=== PATIENT | female | born 1965 | race Caucasian/White ===

== ENCOUNTER 2022-09-03 07:23 | Observation (INO) | payer MEDICARE, MEDICAID, SELFPAY ==
[2022-09-03] VITALS (23 sets, daily range): BP systolic 78–159; BP diastolic 52–86; PULSE 38–97; RESP 10–18; TEMP 35.8–37.9; O2SAT 93–100; BMI 33.3; BMI 35.5
--- NOTE | 2022-09-03 07:46 | CT_ITS ---
STUDY: CT BRAIN WITHOUT CONTRAST REASON FOR EXAM: Female, 57 years old. Headache. Possible CVA. RADIATION DOSAGE (If Supplied By Facility): CTDIvol = ( 47.06 ) mGy, DLP = ( 855.03 ) mGycm TECHNIQUE: Transaxial CT imaging of the brain was performed without administration of intravenous contrast material. Individualized dose optimization techniques were used for this CT. COMPARISON: No relevant priors. FINDINGS: Normal soft tissue structures. There is hyperostosis frontalis internus. There is mild cerebral atrophy with widening of the extra-axial spaces and ventricular dilatation. Normal white matter tracts of the cerebral hemispheres. Normal basal ganglia and thalami. Normal brainstem. Normal cerebellum. There is no intracranial hemorrhage. There are no findings of an acute ischemic infarction. Normal visualized paranasal sinuses. CT/Brain/Head without Contrast IMPRESSION: Chronic involutional changes of the brain. Electronically Signed: Luis Enrique Irwin MD at 8:55 EST ,
--- NOTE | 2022-09-03 07:47 | EKG12_ITS ---
Test Reason : BRADYCARDIA Blood Pressure : / mmHG Vent. Rate : 038 BPM Atrial Rate : 038 BPM P-R Int : 224 ms QRS Dur : 096 ms QT Int : 522 ms P-R-T Axes : 052 -30 017 degrees QTc Int : 414 ms Marked sinus bradycardia with 1st degree A-V block Left axis deviation Abnormal ECG Confirmed by SHREYA WHITE, ANN ([id number]), tape editor MEGAN CARPIO ([id number]) on 09/07/2022 10:56:32 AM Referred By: PING Confirmed By:ANN CASH MD
--- NOTE | 2022-09-03 07:49 | EX.ED.DYSGE1 ---
HPI History of Present Illness Chief Complaint: Weakness Informant: patient Onset/Context/Timing Onset: Weeks (1) Context: Gradual Onset Timing: Continuous Quality: Weakness Location: Generalized Worsened by: Nothing Relieved by: Nothing Narrative Narrative: Patient presents with slurred speech that has been getting worse over the past week. Patient states that over the last 4 days she has started to feel weak. Patient states she feels weak all over. Patient states she is having difficulty ambulating due to the weakness. Patient states she normally ambulates with a cane but has also been having to hold onto glez to prevent her from falling. Patient states this has been constant. Patient states nothing makes it better nothing makes it worse. Patient admits to a headache. Patient describes this as her typical migraine headache. Patient admits to a fever of 102 at home. Patient admits to some shortness of breath and cough. [facility] Medical History (Updated 09/03/22 @ 13:[address] Rome Dai DO) Diabetes Hypercholesterolemia Psoriasis Allergy/AdvReac Type Severity Reaction Status Date / Time latex Allergy Rash Verified 09/03/22 12:52 levofloxacin [From Levaquin] Allergy Hives Verified 09/03/22 12:53 ondansetron [From Zofran] Allergy Hives Verified 09/03/22 12:53 nalbuphine [From Nubain] AdvReac Other Verified 09/03/22 12:53 Surgical History Hx of cholecystectomy Hx of tonsillectomy Hx of tubal ligation Social History Smoking Status: Former smoker ROS ROS ED Constitutional Constitutional ED: Reports fever(s); Denies chills Eyes Eyes: Denies blurry vision or change in vision ENT ENT ED: Reports ear pain bilateral and sore throat; Denies rhinorrhea Cardiovascular Cardiovascular: Denies chest pain or palpitations Respiratory/Chest Respiratory/Chest: Reports cough and dyspnea Gastrointestinal Gastrointestinal: Reports nausea and vomiting Genitourinary Genitourinary ED: Denies dysuria or hematuria Musculoskeletal Musculoskeletal: Reports back pain and neck pain Integumentary Denies abscess or rash Neurologic Neurologic: Reports headache(s); Denies weakness Allergic/Immunologic Allergic/Immunologic ED: Denies mouth swelling or urticaria EXAM Physical Exam Const Vital Signs: 09/03/22 07:26 09/03/22 07:37 09/03/22 07:50 Temperature 96.5 F L Temperature Source Temporal Pulse Rate 38 L 38 L 41 L Respiratory Rate 14 16 13 Blood Pressure 78/59 L 85/57 L 98/58 L Blood Pressure Mean 65 66 71 Pulse Ox 100 100 100 Oxygen Delivery Method Room Air Room Air Room Air 09/03/22 07:58 09/03/22 08:04 09/03/22 08:11 Temperature Temperature Source Pulse Rate 40 L 45 L Respiratory Rate 13 13 Blood Pressure 89/59 L 98/66 Blood Pressure Mean 69 76 Pulse Ox 100 97 100 Oxygen Delivery Method Room Air Room Air Room Air 09/03/22 08:24 09/03/22 08:45 09/03/22 09:05 Temperature Temperature Source Pulse Rate 45 L 43 L 45 L Respiratory Rate 13 11 L 16 Blood Pressure 80/52 L 97/62 114/69 Blood Pressure Mean 61 73 84 Pulse Ox 98 98 97 Oxygen Delivery Method Room Air Room Air Room Air 09/03/22 09:27 09/03/22 09:54 09/03/22 10:00 Temperature Temperature Source Pulse Rate 49 L 48 L 46 L Respiratory Rate 10 L Blood Pressure 126/72 H Blood Pressure Mean 90 Pulse Ox 99 Oxygen Delivery Method Room Air 09/03/22 10:19 09/03/22 10:38 09/03/22 11:33 Temperature Temperature Source Pulse Rate 56 L 60 57 L Respiratory Rate 13 13 Blood Pressure 116/67 122/71 H Blood Pressure Mean 83 88 Pulse Ox 100 100 Oxygen Delivery Method Room Air Room Air 09/03/22 12:12 09/03/22 13:06 Temperature Temperature Source Pulse Rate 60 56 L Respiratory Rate 12 10 L Blood Pressure 150/78 H 131/73 H Blood Pressure Mean 102 92 Pulse Ox 100 Oxygen Delivery Method Room Air Positive well nourished, well developed and obese General Appearance ED: well developed, NAD and pallor Nutritional Appearance: obese HEENT Reports dry mucous membranes Mouth ED: Yes dry mucous membranes Mouth: dry mucous membranes Neck supple and no JVD Resp normal respiratory effort and clear to auscultation bilaterally Cardio regular rhythm Rate: bradycardia GI normal to inspection, nondistended, normoactive bowel sounds Palpation: soft and tender RUQ (Mild) Extremity normal to inspection General Extremety ED: Negative for edema or tenderness General Extremity: Negative for edema Neuro oriented x3, CN's II-XII intact bilaterally and no sensory deficits noted Neuro Narrative: Patient does have slurred speech. There are no other focal deficits. Sensorium / Orientation: alert Motor Exam: strength 5/5 throughout Psych mental status grossly normal Skin no rashes or lesions noted General Skin Exam: pallor MDM MDM MDM Narrative Medical decision making narrative: Since the patient's symptoms began a week ago, stroke team was not called. Differential diagnosis includes stroke, cardiac dysrhythmia, electrolyte abnormality, acute kidney injury, cardiac ischemia, pneumonia, viral infection, urinary tract infection, sepsis, migraine headache, and intracranial bleeding. EKG will be obtained to assess for cardiac ischemia and cardiac dysrhythmia. CT scan of the brain will be obtained to assess for intracranial bleeding. Chest x-ray will be obtained to assess for pneumonia and congestive heart failure. CBC will be obtained to assess for leukocytosis and anemia. Comprehensive metabolic profile will be obtained to assess for electrolyte abnormality, hepatic function, and kidney function. Troponin will be obtained to assess for cardiac ischemia. Urinalysis will be obtained to assess for urinary tract infection. Lactate will be obtained to assess for sepsis. PT with INR and PTT will be obtained to assess for coagulopathy. Lab Data Attestation: I reviewed the patient's lab results. Lab results narrative: CBC was reviewed and was within normal limits. Comprehensive metabolic profile was reviewed. BUN was 32 and creatinine was 1.4. There are no prior labs available for comparison. Glucose was slightly elevated at 173. PT with INR and PTT were reviewed and were within normal limits. High-sensitivity troponin was reviewed and was normal at 6. 2-hour repeat high-sensitivity troponin was reviewed and was normal at 6. Lactate was reviewed and was normal at 1.4. Urinalysis was reviewed and was normal. Labs: Laboratory Results - last 24 hr 09/03/22 09/03/22 09/03/22 07:25 07:25 07:25 WBC 8.4 RBC 3.89 L Hgb 12.8 Hct 38.0 MCV 97.7 MCH 32.9 H MCHC 33.7 RDW Std Deviation 45.9 H RDW Coeff of He 12.8 Plt Count 232 MPV 10.8 Immature Gran % (Auto) 0.100 Neut % (Auto) 66.5 Lymph % (Auto) 27.0 Cecil % (Auto) 4.2 Eos % (Auto) 1.8 Baso % (Auto) 0.4 Absolute Neuts (auto) 5.6 Absolute Lymphs (auto) 2.26 Nucleated RBC % 0 PT 13.7 INR 1.1 APTT 30.3 Sodium 140 Potassium 3.8 Chloride 109 H Carbon Dioxide 24.0 Anion Gap 7 BUN 32 H Creatinine 1.40 H Estim Creat Clear Calc 42.00 Est GFR (MDRD) Af Amer 50 L Est GFR (MDRD) Non-Af 41 L BUN/Creatinine Ratio 22.9 H Glucose 173 H Lactic Acid Calcium 9.1 Total Bilirubin 0.30 AST 10 L ALT 27 Alkaline Phosphatase 113 Troponin I High Sens 6 Total Protein 7.4 Albumin 3.9 Globulin 3.5 Albumin/Globulin Ratio 1.1 Urine Color Urine Clarity Urine pH Ur Specific [place] Urine Protein Urine Glucose (UA) Urine Ketones Urine Occult Blood Urine Nitrite Urine Bilirubin Urine Urobilinogen Ur Leukocyte Esterase Urine RBC Urine WBC Ur Squamous Epith Cells Urine Bacteria Urine Mucus 09/03/22 09/03/22 09/03/22 08:08 10:32 12:20 WBC RBC Hgb Hct MCV MCH MCHC RDW Std Deviation RDW Coeff of He Plt Count MPV Immature Gran % (Auto) Neut % (Auto) Lymph % (Auto) Cecil % (Auto) Eos % (Auto) Baso % (Auto) Absolute Neuts (auto) Absolute Lymphs (auto) Nucleated RBC % PT INR APTT Sodium Potassium Chloride Carbon Dioxide Anion Gap BUN Creatinine Estim Creat Clear Calc Est GFR (MDRD) Af Amer Est GFR (MDRD) Non-Af BUN/Creatinine Ratio Glucose Lactic Acid 1.4 Calcium Total Bilirubin AST ALT Alkaline Phosphatase Troponin I High Sens 6 Total Protein Albumin Globulin Albumin/Globulin Ratio Urine Color Yellow Urine Clarity Clear Urine pH 5.0 Ur Specific [place] 1.010 Urine Protein Negative Urine Glucose (UA) Normal Urine Ketones Negative Urine Occult Blood Negative Urine Nitrite Negative Urine Bilirubin Negative Urine Urobilinogen Normal Ur Leukocyte Esterase Negative Urine RBC 0 SEEN Urine WBC 0 SEEN Ur Squamous Epith Cells 0-5 SEEN Urine Bacteria 0 SEEN Urine Mucus 0 SEEN Radiography Diagnostic Testing: Clinical Impression(s) from Imaging Studies Brain CT 09/03/22 07:46 IMPRESSION: Chronic involutional changes of the brain. Electronically Signed: Luis Enrique Irwin MD at 8:55 EST , Chest X-Ray 09/03/22 07:59 IMPRESSION: Elevation of the right hemidiaphragm. The lungs are clear. Electronically Signed: Luis Enrique Irwin MD at 8:54 EST , Portable 1 view chest x-ray was obtained. On my independent interpretation, lung mcintosh are clear. There is normal cardiac silhouette. Bony thorax is normal. There is no acute process noted. Radiologist also interpreted the x-ray and agrees. CT scan of the brain was obtained. There is no acute intracranial abnormality. There are chronic involutional changes of the brain. This was interpreted by the radiologist and was also independently reviewed by myself. EKG Initial EKG: Attestation: I personally reviewed and interpreted this EKG as follows: Interpretation: No Acute Injury Pattern and Sinus Bradycardia (38) Comments: EKG was obtained. On my interpretation, there is a sinus bradycardia with a rate of 38. MT interval was prolonged at 224 ms. QRS interval was within normal limits. QTc interval was normal. There is left axis deviation at -30. There is no acute ST or T wave changes. Prior EKG tracings: not available for review Prior: No Prior Treatment and Re-Evaluation Narrative: Patient was given IV fluids, Reglan, and Benadryl. Patient was still having headache. Patient was given a dose of Toradol. Patient states she was still feeling weak. Patient was advised of her findings. Patient's heart rate did improve up to 63 on reevaluation. Because she was still symptomatic, I discussed the case with the hospitalist. Patient will be admitted to the hospital for further evaluation. Patient understood and was agreeable with the plan. All questions were answered. Discharge Plan Triage Chief Complaint: Weakness ED Provider: Rome Dai Dx/Rx/DC Orders Clinical Impression: Slurred speech, Diabetes, Bradycardia, General weakness Primary Care Provider: Vi Eng Referrals: Vi Eng, DO [Primary Care Provider] - Disposition Disposition: Acute Care Hospital [facility]
[2022-09-03] MEDS: 0.9% Normal Saline 1,000 ML 1000 ML IV (07:51)
[2022-09-03 07:58] LABS: Absolute Lymphocyte Count 2.26 X10^3/uL (0.83-4.51); Absolute Neutrophil Count 5.6 X10^3/uL (2.0-7.7); Basophil# 0.03 X10^3/uL; Basophil% 0.4 % (0-1); Eosinophil# 0.15 X10^3/uL; Eosinophils% 1.8 % (0-5); Hemoglobin 12.8 g/dL (12.0-15.0); Lymphocyte # 2.26 X10^3/ul (0.83-4.51); Mean Corp Hgb Conc 33.7 g/dL (32-36); Mean Corpuscular Hgb 32.9 pg (27.0-32.0); Mean Corpuscular Volume 97.7 fL (81-99); Mean Platelet Vol. 10.8 fl (6.2-12.0); Monocyte# 0.35 X10^3/uL; Monocyte% 4.2 % (0-10); NRBC Flagged by Analyzer 0 % (0-5); Neutrophil # 5.56 X10^3/uL (2.7-7.7); Neutrophil % 66.5 % (47-70); Platelet Count 232 K/mm3 (150-450); RBC Distribution Width CV 12.8 % (11.6-14.6); RBC Distribution Width SD 45.9 fl (35.1-43.9); Red Blood Count 3.89 M/mm3 (4.2-5.4); White Blood Count 8.4 K/mm3 (4.4-11.0)
--- NOTE | 2022-09-03 07:59 | RAD_ITS ---
STUDY: X-RAY CHEST REASON FOR EXAM: Female, 57 years old. Cough TECHNIQUE: Single AP portable view of the chest. COMPARISON: None. FINDINGS: EKG electrodes are seen. Elevation of the right hemidiaphragm. The lungs are clear. There is no demonstrated pleural abnormality. Normal size heart. Normal mediastinum and justine. Normal visualized pulmonary arteries. Normal visualized aortic arch and descending thoracic aorta. Normal visualized thoracic spine. Normal visualized ribs, clavicles, and shoulders. Surgical clips are seen in the right upper quadrant. RAD/Chest 1 View (Portable) IMPRESSION: Elevation of the right hemidiaphragm. The lungs are clear. Electronically Signed: Luis Enrique Irwin MD at 8:54 EST ,
[2022-09-03] MEDS: 0.9% Normal Saline 1,000 ML 999 ML IV (08:00)
[2022-09-03] MEDS: DiphenhydrAMINE 50 MG/ML Syringe 25 MG IV (08:04)
[2022-09-03] MEDS: Metoclopramide 10 MG/2 ML Vial IV (08:05)
[2022-09-03 08:08] LABS: International Normalized Ratio 1.1; Partial Thromboplast Time 30.3 Seconds (24.1-36.2); Prothrombin Time (Protime)PT. 13.7 SECONDS (11.7-14.9)
[2022-09-03 08:18] LABS: ALB/GLOB Ratio 1.1 RATIO (0.9-2.4); AST(SGOT) 10 U/L (15-37); Alanine Aminotransfer ALT/SGPT 27 U/L (13-56); Albumin, Serum 3.9 g/dL (3.2-5.0); Alkaline Phosphatase 113 U/L (45-117); Anion Gap 7 (5-15); BUN 32 mg/dL (7-18); BUN/Creat Ratio 22.9 RATIO (10-20); Calcium,Total 9.1 mg/dL (8.5-10.1); Chloride 109 mmol/L (98-107); EST Glomerular Filtration Rate 41 mL/min (>60); Est Glom Filt Rate - Afr Amer 50 mL/min (>60); Globulin 3.5 g/dL (2.2-4.2); Glucose 173 mg/dL (74-106); Potassium 3.8 mmol/L (3.5-5.1); Protein, Total 7.4 g/dL (6.4-8.2); Sodium Level 140 mmol/L (136-145); Troponin-I HS (w/2H Reflex) 6 pg/mL (3.0-54.0)
[2022-09-03 08:47] LABS: Lactic Acid 1.4 mmol/L (0.4-1.9)
[2022-09-03 09:55] LABS: Reflex Troponin-HS? (from REC) Y
[2022-09-03 10:56] LABS: Troponin-I HS 6 pg/mL (3.0-54.0)
[2022-09-03 12:28] LABS: Bacteria 0 SEEN /hpf (None Seen); Mucous, Urine 0 SEEN /hpf (<or=2+); Red Blood Cells-Urine 0 SEEN /hpf (0-5); White Blood Cells 0 SEEN /hpf (0-5)
[2022-09-03 12:29] LABS: Color, Urine Yellow (Yellow); Glucose, Dipstick Normal (Normal); Ketone-Dipstick Negative (Negative); Leukocyte Esterase-Dipstick Negative /ul (Negative); Nitrite-Dipstick Negative (Negative); Occult Blood-Urine Negative /ul (Negative); Protein-Dipstick Negative (Negative); Urine Bilirubin Dipstick Negative (Negative); Urine Clarity Clear (Clear); Urine Urobilinogen Normal (Normal)
[2022-09-03 12:34] LABS: Squamous Epithelial Cells - UA 0-5 SEEN /hpf (5-10)
[2022-09-03] MEDS: Ketorolac 15 MG/ML Vial IV (12:53)
[2022-09-03] MEDS: proCHLORPERazine 10 MG/2 ML Vial IV (13:42)
--- NOTE | 2022-09-03 14:42 | PCM.HP.STD ---
[facility] - General General Date of Admission: 09/03/22 Date of Service: 09/03/22 Chief Complaint: Slurred speech, wobbling gait for about 1 week. HPI Narrative FAM VINSON, is a 57 F was brought by EMS for slurred speech for 1 week. As per EMS note, patient is scheduled for MRI this week but still started having numbness tingling in left-sided upper and lower extremity and also wobbling gait last 2 to 3 days. She also felt wobbling gait, could not walk straight. She feels her left lower extremity is more weaker but she also has arthritis of the left knee. Her baseline is that she walks with a cane most probably due to arthritis. EMS also found patient was very bradycardic, heart rate in 30s. In ED, twelve-lead EKG shows sinus bradycardia 38 bpm, QTc 414 ms, [place] interval 224 ms. Her heart rate improved to 63/min while in ED. Stroke alert was not called because patient has symptoms for about 1 week. Patient denies prior history of stroke, coronary artery disease, CHF or arrhythmia. She is not on home medication and states she did not take any [id number] medication. She also stated that usually she not short of breath but she is getting short of breath on walking, mild cough, difficulty ambulating and weakness for last 1 week. She has mild headache and describes like her history of migraine. She had fever 102 Fahrenheit at home. Social history: Quit smoking about 6 months ago. Started smoking as a teenager a pack per day and then half pack per day. Sometimes drink alcohol. Denies substance use. Family history: Her paternal uncle has history of CABG. Denies coronary artery disease cardiac or stroke in first-degree family active. [facility] Medical History Diabetes Hypercholesterolemia Psoriasis Allergy/AdvReac Type Severity Reaction Status Date / Time latex Allergy Rash Verified 09/03/22 12:52 levofloxacin [From Levaquin] Allergy Hives Verified 09/03/22 12:53 ondansetron [From Zofran] Allergy Hives Verified 09/03/22 12:53 nalbuphine [From Nubain] AdvReac Other Verified 09/03/22 12:53 Surgical History Hx of cholecystectomy Hx of tonsillectomy Hx of tubal ligation Social History Smoking Status: Former smoker ROS ROS Narrative Constitutional: Reports fatigue and weakness. Increased weakness for 1 week. Fever. HEENT: Reports systems reviewed and no addt'l complaints, except as documented Respiratory/Chest: Denies chest pain, shortness of breath on exertion. Gastrointestinal: Denies coffee ground emesis, hematemesis or vomiting Genitourinary: Denies burning urination or new urinary tract symptoms Musculoskeletal: Chronic arthritis mainly of left knee. Uses cane. Mild chronic left knee joint pain and limited range of motion Neurologic: Denies seizure-like activity. Migraine headache skin: Psoriasis rash Endocrinology:Diabetes mellitus Reports systems reviewed and no addt'l complaints, except as documented Hematologic/Lymphatic: Reports systems reviewed and no addt'l complaints, except as documented Rest 14 ROS are negative except as mentioned in HPI Vital Signs Vital Signs Vital Signs: 09/03/22 07:26 09/03/22 07:37 09/03/22 07:50 Temperature 96.5 F L Temperature Source Temporal Pulse Rate 38 L 38 L 41 L Respiratory Rate 14 16 13 Blood Pressure 78/59 L 85/57 L 98/58 L Blood Pressure Mean 65 66 71 Pulse Ox 100 100 100 Oxygen Delivery Method Room Air Room Air Room Air 09/03/22 07:58 09/03/22 08:04 09/03/22 08:11 Temperature Temperature Source Pulse Rate 40 L 45 L Respiratory Rate 13 13 Blood Pressure 89/59 L 98/66 Blood Pressure Mean 69 76 Pulse Ox 100 97 100 Oxygen Delivery Method Room Air Room Air Room Air 09/03/22 08:24 09/03/22 08:45 09/03/22 09:05 Temperature Temperature Source Pulse Rate 45 L 43 L 45 L Respiratory Rate 13 11 L 16 Blood Pressure 80/52 L 97/62 114/69 Blood Pressure Mean 61 73 84 Pulse Ox 98 98 97 Oxygen Delivery Method Room Air Room Air Room Air 09/03/22 09:27 09/03/22 09:54 09/03/22 10:00 Temperature Temperature Source Pulse Rate 49 L 48 L 46 L Respiratory Rate 10 L Blood Pressure 126/72 H Blood Pressure Mean 90 Pulse Ox 99 Oxygen Delivery Method Room Air 09/03/22 10:19 09/03/22 10:38 09/03/22 11:33 Temperature Temperature Source Pulse Rate 56 L 60 57 L Respiratory Rate 13 13 Blood Pressure 116/67 122/71 H Blood Pressure Mean 83 88 Pulse Ox 100 100 Oxygen Delivery Method Room Air Room Air 09/03/22 12:12 09/03/22 13:06 09/03/22 14:13 Temperature Temperature Source Pulse Rate 60 56 L 57 L Respiratory Rate 12 10 L Blood Pressure 150/78 H 131/73 H 142/78 H Blood Pressure Mean 102 92 99 Pulse Ox 100 98 Oxygen Delivery Method Room Air Room Air 09/03/22 13:37 Temperature 96.8 F L Temperature Source Temporal Pulse Rate 57 L Respiratory Rate 18 Blood Pressure 142/78 H Blood Pressure Mean 99 Pulse Ox 100 Oxygen Delivery Method Room Air Weight Weight: 206 lb 12.697 oz Body Mass Index (BMI) 33.3 Physical Exam Narrative Physical exam General: Alert, Oriented x3, Cooperative HEENT: Atraumatic, PERRLA, EOMI, Normocephalic Oral: No Gingival or Mucosal Lesions/ Ulcerations Neck: Supple, No JVD, Negative Carotid Bruits Lungs: Air entry diminished in bilateral lung bases. No crepitation/rhonchi Cardiovascular: Sinus bradycardia, Normal S1, Normal S2, No murmurs Abdomen: Bowel Sounds Present, Soft, Non Tender, Non-Distended : No renal angle tenderness. No suprapubic tenderness. Extremities: No edema, Capillary Refill Less than 3 Seconds Skin: Patchy erythematous, psoriatic plaques on lower extremities. No acute infection/cellulitis Musculoskeletal: No Tenderness to Palpation of Joints or Extremities Neurological: Cranial nerves II-XII grossly intact, DTR 2+/4, mild weakness in left lower extremity, slurred speech/dysarthria, decreased sensation on left side. NIH stroke scale 3. Finger-nose and heel so test negative. Psych/Mental Status: Normal Affect, Appropriate. Results Lab / Micro Data Result Diagrams: 09/03/22 07:25 09/03/22 07:25 Labs: Laboratory Results - last 24 hr 09/03/22 07:25: WBC 8.4, RBC 3.89 L, Hgb 12.8, Hct 38.0, MCV 97.7, MCH 32.9 H, MCHC 33.7, RDW Std Deviation 45.9 H, RDW Coeff of He 12.8, Plt Count 232, MPV 10.8, Immature Gran % (Auto) 0.100, Neut % (Auto) 66.5, Lymph % (Auto) 27.0, [place] % (Auto) 4.2, Eos % (Auto) 1.8, Baso % (Auto) 0.4, Absolute Neuts (auto) 5.6, Absolute Lymphs (auto) 2.26, Nucleated RBC % 0 09/03/22 07:25: PT 13.7, INR 1.1, APTT 30.3 09/03/22 07:25: Sodium 140, Potassium 3.8, Chloride 109 H, Carbon Dioxide 24.0, Anion Gap 7, BUN 32 H, Creatinine 1.40 H, Estim Creat Clear Calc 42.00, Est GFR (MDRD) Af Amer 50 L, Est GFR (MDRD) Non-Af 41 L, BUN/Creatinine Ratio 22.9 H, Glucose 173 H, Calcium 9.1, Total Bilirubin 0.30, AST 10 L, ALT 27, Alkaline Phosphatase 113, Troponin I High Sens 6, Total Protein 7.4, Albumin 3.9, Globulin 3.5, Albumin/Globulin Ratio 1.1 09/03/22 08:08: Lactic Acid 1.4 09/03/22 10:32: Troponin I High Sens 6 09/03/22 12:20: Urine Color Yellow, Urine Clarity Clear, Urine pH 5.0, Ur Specific [place] 1.010, Urine Protein Negative, Urine Glucose (UA) Normal, Urine Ketones Negative, Urine Occult Blood Negative, Urine Nitrite Negative, Urine Bilirubin Negative, Urine Urobilinogen Normal, Ur Leukocyte Esterase Negative, Urine RBC 0 SEEN, Urine WBC 0 SEEN, Ur Squamous Epith Cells 0-5 SEEN, Urine Bacteria 0 SEEN, Urine Mucus 0 SEEN Radiology Impression Brain CT 09/03/22 07:46 IMPRESSION: Chronic involutional changes of the brain. Electronically Signed: Luis Enrique Irwin MD at 8:55 EST , Chest X-Ray 09/03/22 07:59 IMPRESSION: Elevation of the right hemidiaphragm. The lungs are clear. Electronically Signed: Luis Enrique Irwin MD at 8:54 EST , Assessment & Plan Assessment/Plan (1) Bradycardia: (2) CVA (cerebral vascular accident): PLAN: Plan 1. Suspected ischemic stroke: Patient is being admitted in PCU. 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 Stroke work-up including MRI brain, MRA head and neck and 2D echo ordered. BP and glucose monitoring as per stroke protocol. She has symptoms for about 1 week. Started on baby aspirin high intensity statin. Fasting profile, A1c and TSH ordered for tomorrow AM. 2. Severe sinus bradycardia, etiology unclear: In triage patient heart rate was 38/min, BP 78/59 but heart rate and blood pressure has improved. Patient denies any medication intake or [id number] at home. Heart rate is improving. Patient does not have chest pain or pressure but has shortness of breath on exertion. First troponin negative. Serial cardiac enzymes ordered. 2D echo ordered. 3. Diabetes mellitus type 2: Glucose in BMP is high, 173. A1c ordered. Accu-Chek AC needs coverage Humalog sliding scale. 4. Fever at home: Here in ED, patient has been afebrile. Chest x-ray mutilative reviewed and lungs are clear. UA shows LE and nitrite negative. WBC 0. The patient does not have dysuria/burning micturition or neurologic type symptoms. Monitor fever. 5. Abnormal kidney function unclear whether acute or chronic kidney disease: No prior lab available. BUNs/creatinine 32/1.4 streamed creatinine clearance 42 mill per minute. Sodium 140, chloride 109 therefore started on IV fluid Ringer lactate. Monitor kidney function. 6. Other chronic comorbidities include psoriasis, history of migraine, dyslipidemia: Patient denies history of hypertension. Not on any medication. Advised to follow-up with review nurse for psoriasis rest. VT prophylaxis moderate risk, enoxaparin 40 mg subcu daily. Living will/advanced directive/end of life care: Patient does not have living will or advanced directive. After discussion of benefits/risks procedures involved with full code, DNR CC arrest and DNR CC, the patient opted for full code. Patient does want artificial life support including intubation, tube feed, ventilator and/chest compression, central venous catheter, vasopressor and DC shock if needed Total time spent in [id number] encounter in discussion of advanced directive 17 minutes. Laboratory Results 09/03/22 07:25: WBC 8.4, RBC 3.89 L, Hgb 12.8, Hct 38.0, MCV 97.7, MCH 32.9 H, MCHC 33.7, RDW Std Deviation 45.9 H, RDW Coeff of He 12.8, Plt Count 232, MPV 10.8, Immature Gran % (Auto) 0.100, Neut % (Auto) 66.5, Lymph % (Auto) 27.0, [place] % (Auto) 4.2, Eos % (Auto) 1.8, Baso % (Auto) 0.4, Absolute Neuts (auto) 5.6, Absolute Lymphs (auto) 2.26, Nucleated RBC % 0 09/03/22 07:25: PT 13.7, INR 1.1, APTT 30.3 09/03/22 07:25: Sodium 140, Potassium 3.8, Chloride 109 H, Carbon Dioxide 24.0, Anion Gap 7, BUN 32 H, Creatinine 1.40 H, Estim Creat Clear Calc 42.00, Est GFR (MDRD) Af Amer 50 L, Est GFR (MDRD) Non-Af 41 L, BUN/Creatinine Ratio 22.9 H, Glucose 173 H, Calcium 9.1, Total Bilirubin 0.30, AST 10 L, ALT 27, Alkaline Phosphatase 113, Troponin I High Sens 6, Total Protein 7.4, Albumin 3.9, Globulin 3.5, Albumin/Globulin Ratio 1.1 09/03/22 08:08: Lactic Acid 1.4 09/03/22 10:32: Troponin I High Sens 6 09/03/22 10:32: Phosphorus Pending, Magnesium Pending 09/03/22 12:20: Urine Color Yellow, Urine Clarity Clear, Urine pH 5.0, Ur Specific [place] 1.010, Urine Protein Negative, Urine Glucose (UA) Normal, Urine Ketones Negative, Urine Occult Blood Negative, Urine Nitrite Negative, Urine Bilirubin Negative, Urine Urobilinogen Normal, Ur Leukocyte Esterase Negative, Urine RBC 0 SEEN, Urine WBC 0 SEEN, Ur Squamous Epith Cells 0-5 SEEN, Urine Bacteria 0 SEEN, Urine Mucus 0 SEEN Charges/Coding Visit Charges Inpatient E&M: 08831 Init Hosp L3 Procedures Hospitalists Procedures: 51607 Advncd Care Plan 30 Min
[2022-09-03 15:19] LABS: Magnesium 2.1 mg/dL (1.6-2.6)
--- NOTE | 2022-09-03 16:36 | CM.ED ---
Floor Assessment by JAYA Information Source: Patient Family Present: None present but patient was talking to someone on the phone when this chief underwriter entered the room. Next of Kin: Enriqueta Patterson, patient's sister. Enriqueta is also patient's HCPOA. Living Will: Patient does not have a living will. She reports an interest in information about living will and this chief underwriter provided her with [facility] Living Will information and encouraged her to speak to unit social media project manager if she wanted to complete information while on the unit. Healthcare POA: Patient said that her sister, Enriqueta Patterson is her HCPOA. SW asked for patient's family to bring in copy of the HCPOA for the patient's medical chart. Name of PCP: Vi Eng Specialist: Nuzhat, neurologist, Dr. Garvin at [facility], and an factory engineer that patient has not seen yet nor can patient recall her name or hospital association. Name of Pharmacy: [facility] [place] [facility] Prescription Coverage: [facility] Dual Medicare/Medicaid Lives with : SisterEnriqueta and Brother in Law Living Arrangement: One story home Steps: Patient reports she has unknown amount of steps into the house. Patient reports she has a chair lift to get inside the home. ADL: Patient was independent in her ADL's prior to her admission. Quality of family relationship: Patient reports that her sister and brother in law offer her good support. Can patient return to prior living arrangement: Yes Patient reports she feels safe at home Patient does not drive due to her seizures Current DME: Cane, walker and chair lift No identified DME needs Hemodialysis: None Previous SNF: [facility] in [place]. She does not want to return there. Previous HHC: Patient reports HHC in past but can not recall the name of the agency. No Passport/Waiver or [place] Patient reports she sees Dr. Garvin, a psychologist, and Shante Kenny, a counselor, at [facility]. Patient said that her PCP prescribes her cymbalta and generic ativan which she takes at bedtime. Patient reports she is med compliant. Plan at Discharge: Return Home JAYA provided patient with living will resources and encouraged her to have family members bring in the HCPOA for the patient's file . Linnette SOTOMAYOR
--- NOTE | 2022-09-03 16:41 | MRI_ITS ---
STUDY: MRI BRAIN WITHOUT CONTRAST REASON FOR EXAM: Female, 57 years old. Suspected Stroke, SLURRED SPEECH BILATERAL HAND NUMBNESS TECHNIQUE: Standardized multiplanar fat and water weighted pulse sequences were obtained. COMPARISON: September 03, 2022 FINDINGS: There is moderate cerebral atrophy with widening of the extra-axial spaces and ventricular dilatation. There are a limited number of small white matter hyperintensities, distributed throughout the deep white matter tracts of the cerebral hemispheres, consistent with mild chronic white matter ischemic changes. There is no evidence for recent intracranial ischemia or other cause of cytotoxic edema on diffusion weighted imaging (DWI). Normal T2* images of the brain without demonstrated susceptibility artifact. There is no demonstrated hemosiderin stain. Normal bilateral basal ganglia. Normal thalami. There is no extra-axial fluid accumulation. Normal flow voids within the major intracranial circulation suggesting patency by spin echo criteria. Normal sella turcica, pituitary gland, infundibular stalk, optic chiasm and hypothalamus. Normal tectal plate and pineal gland. Normal midbrain and jesenia. There is focal increased T2 signal and posterior aspect of the medulla, series 5 images 4/25 and 5/25. Normal cerebellum. Normal basal cisterns. Normal bilateral temporal bones. Normal bilateral internal auditory canals. No demonstrated orbital abnormality, within the constraints of a routine brain study. Normal visualized paranasal sinuses. Normal calvarium and skull base. Normal visualized soft tissue structures. Normal visualized upper cervical spine. MRI/Brain without Contrast IMPRESSION: Involutional changes of the brain, as described above. Signal alteration of the medulla suggesting prior insult or infarct. No hemorrhage or acute infarct. Electronically Signed: King Jose MD at 11:11 EST ,
--- NOTE | 2022-09-03 16:41 | MRI_ITS ---
STUDY: MRA NECK WITHOUT CONTRAST REASON FOR EXAM: Female, 57 years old. Stroke, SLURRED SPEECH BILATERAL HAND NUMBNESS TECHNIQUE: Source images were obtained, MIPs were performed. The study was performed unenhanced. There is motion artifact. COMPARISON: None. FINDINGS: RIGHT CAROTID ARTERIES: Normal right common carotid artery (CCA). Normal right common carotid bulb. Normal origin of the right internal carotid (ICA) artery without a hemodynamically significant stenosis. There is atherosclerotic tortuous elongation of the cervical portion of the right internal carotid artery. Normal origin of the right external carotid artery (ECA). LEFT CAROTID ARTERIES: Normal left common carotid artery (CCA). Normal left common carotid bulb. Normal origin of the left internal carotid (ICA) artery without a hemodynamically significant stenosis. There is atherosclerotic tortuous elongation of the cervical portion of the left internal carotid artery. Normal origin of the left external carotid artery (ECA). VERTEBRAL ARTERIES: Normal antegrade flow within the bilateral vertebral artery without a hemodynamically significant stenosis. MRI/MRA Neck without Contrast IMPRESSION: No hemodynamically significant internal carotid artery stenosis. Motion artifact degrades detail. Electronically Signed: King Jose MD at 11:23 EST ,
--- NOTE | 2022-09-03 16:41 | ECHOD_ITS ---
Reason For Study: CVA Procedure This was a 2D Doppler, Color Flow transthoracic echocardiogram. Exam performed portable in patient room. Left Ventricle Normal left ventricle. The estimated ejection fraction is 55-60 %. Right Ventricle Normal right ventricle. Normal systolic function. Atria Normal left atrium. Normal right atrium. Intact atrial septum. Mitral Valve The mitral valve is structurally normal. No prolapse or stenosis seen. No mitral valve insufficiency. Tricuspid Valve Normal tricuspid valve. No tricuspid valve insufficiency. Aortic Valve Mild diffuse aortic valve thickening. No aortic valve insufficiency. Pulmonic Valve The pulmonic valve is not well visualized. Great Vessels Normal aortic root. Pericardium/Pleural No pericardial effusion. Medication Performed a rapid injection of agitated mix of 9 cc saline and 1cc air to assess for atrial septal defect. MMode/2D Measurements & Calculations Ao root diam: 2.9 cm LAV(MOD-sp4): 56.3 ml LVAd ap4: 24.4 cm2 LVLd ap4: 7.4 cm EDV(MOD-sp4): 65.2 ml EDV(sp4-el): 68.5 ml LVAs ap4: 10.6 cm2 LVLs ap4: 5.9 cm ESV(MOD-sp4): 16.2 ml ESV(sp4-el): 16.0 ml EF(MOD-sp4): 75.2 % EF(sp4-el): 76.6 % SV(MOD-sp4): 49.0 ml SV(sp4-el): 52.5 ml LA A4 area: 20.8 cm2 LA dimension(2D): 3.6 cm RA A4 area: 14.2 cm2 Time Measurements MV dec time: 0.24 sec Doppler Measurements & Calculations MV E max sajan: 59.6 cm/sec Lat Peak E' Sajan: 12.1 cm/sec Med Peak E' Sajan: 8.2 cm/sec MV A max sajan: 69.5 cm/sec E/E' lat: 4.9 E/E' med: 7.3 MV E/A: 0.86 MV V2 max: 73.9 cm/sec MV dec slope: 303.6 cm/sec2 Ao V2 max: 164.0 cm/sec MV max P.2 mmHg Ao max P.8 mmHg MV V2 mean: 50.0 cm/sec Ao V2 mean: 125.2 cm/sec MV mean P.1 mmHg Ao mean P.9 mmHg MV V2 VTI: 26.2 cm Ao V2 VTI: 41.5 cm AV (velocity ratio): 0.86 LV V1 max: 145.2 cm/sec PA V2 max: 109.5 cm/sec LV V1 max P.4 mmHg PA V2 mean: 74.8 cm/sec LV V1 mean P.4 mmHg LV V1 mean: 111.0 cm/sec LV V1 VTI: 35.6 cm ECHO/Echo Complete Interpretation Summary The estimated ejection fraction is 55-60 %. Normal LV systolic function No significant Valvular regurgitation No previous study tgo compare Ordering Physician: Forrest Pascal Referring Physician: EMILY ARIAS Performed By: Rebekah Al RCS
--- NOTE | 2022-09-03 16:41 | MRI_ITS ---
STUDY: MRA OF THE HEAD WITHOUT CONTRAST REASON FOR EXAM: Female, 57 years old. Stroke, SLURRED SPEECH BILATERAL HAND NUMBNESS TECHNIQUE: 3-D [id number] (TOF) imaging was performed with MIPs. The study was performed unenhanced. COMPARISON: None. FINDINGS: Normal bilateral petrous carotid arteries. Normal right cavernous carotid artery with a normal supraclinoid bifurcation. Normal left cavernous carotid artery with a normal supraclinoid bifurcation. Normal right A1 segments of the anterior cerebral artery. Normal left A1 segments of the anterior cerebral artery. Normal intact anterior communicating artery (ACOM). Normal bilateral A2 segments of the anterior cerebral arteries. Normal right M1 and M2 segments of the middle cerebral arteries, with a normal M1 bifurcation. Normal left M1 and M2 segments of the middle cerebral arteries, with a normal M1 bifurcation. There is non-visualization of the right posterior communicating artery (PCOM). There is non-visualization of the left posterior communicating artery (PCOM). Normal bilateral vertebral arteries. Normal basilar artery with a normal basilar bifurcation. The visualized bilateral superior cerebellar (SCA) arteries are normal. Normal bilateral P1, P2 and visualized P3 segments of the posterior cerebral arteries. There is no demonstrated aneurysm of the [place]. There is no major vessel occlusion or hemodynamically significant stenosis. There is no demonstrated abnormality of the visualized brain. MRI/MRA Head ONLY without Contrast IMPRESSION: Normal MRA of the head. No aneurysm or large vessel occlusion. Electronically Signed: King Jose MD at 11:21 EST ,
[2022-09-03 18:01] LABS: Bedside Glucose 119 mg/dL (74-106)
[2022-09-03 18:06] LABS: Troponin-I HS 5 pg/mL (3.0-54.0)
[2022-09-03] MEDS: Lactated Ringers 1,000 ML 100 ML IV (18:18)
[2022-09-03] MEDS: 0.9% Saline Lock 10 ML Syringe IV (18:20)
[2022-09-03] MEDS: Enoxaparin 40 MG/0.4 ML Syringe SC (18:27)
[2022-09-03 20:17] LABS: Troponin-I HS 7 pg/mL (3.0-54.0)
[2022-09-03 22:36] LABS: Bedside Glucose 164 mg/dL (74-106)
[2022-09-04] VITALS (8 sets, daily range): BP systolic 110–150; BP diastolic 65–77; PULSE 69–88; RESP 16–116; TEMP 36.7–37.7; O2SAT 96–97; BMI 35.5
[2022-09-04 00:03] LABS: Troponin-I HS 10 pg/mL (3.0-54.0)
[2022-09-04] MEDS: Lactated Ringers 1,000 ML 100 ML IV (03:51)
[2022-09-04 06:51] LABS: Bedside Glucose 165 mg/dL (74-106)
[2022-09-04 06:54] LABS: Anion Gap 8 (5-15); BUN 19 mg/dL (7-18); BUN/Creat Ratio 19.6 RATIO (10-20); Calcium,Total 8.7 mg/dL (8.5-10.1); Chloride 115 mmol/L (98-107); Cholesterol 138 mg/dL (200); Creatinine, Serum 0.97 mg/dL (0.55-1.02); EST Glomerular Filtration Rate 63 mL/min (>60); Est Glom Filt Rate - Afr Amer 77 mL/min (>60); Estimated Creatinine Clearance 60.62 ml/min; Glucose 176 mg/dL (74-106); High Density Lipoprotein 31 mg/dL; Potassium 3.8 mmol/L (3.5-5.1); Sodium Level 144 mmol/L (136-145); Thyroid Stim Hormone (TSH) 1.98 uIU/mL (0.358-3.74); Triglycerides 385 mg/dL; Very Low Density Lipoprotein 77 mg/dL (5-40)
[2022-09-04 08:06] LABS: Hemoglobin A1c 6.5 % (3.8-5.6)
[2022-09-04] MEDS: Enoxaparin 40 MG/0.4 ML Syringe SC (11:02)
--- NOTE | 2022-09-04 11:13 | TELEMED_ITS ---
[facility] Tele[facility] has confirmed receipt of a request for visit. This document confirms receipt of the order initiating the consult. To find the results of the consultation, please view the patient's reports for the scanned Telemed Consult.
[2022-09-04] MEDS: proCHLORPERazine 10 MG/2 ML Vial 5 MG IV (11:56)
[2022-09-04] MEDS: Insulin Lispro 100 UNIT/ML INSULN.PEN SC ×3 (12:12→22:20)
[2022-09-04 12:20] LABS: Bedside Glucose 195 mg/dL (74-106)
--- NOTE | 2022-09-04 12:42 | MRI_ITS ---
STUDY: MRI CERVICAL SPINE WITHOUT CONTRAST REASON FOR EXAM: Female, 57 years old. Cervical radiculopathy with bilateral hand numbness. TECHNIQUE: Standardized fat and water weighted pulse sequences were obtained in the sagittal and axial planes. COMPARISON: MRI brain without contrast 09/04/2022. No prior MRI cervical spine for comparison. FINDINGS: Normal foramen magnum and brainstem-cervical cord junction. Normal craniovertebral junction. Normal anterior atlantoaxial articulation. Normal odontoid process. Straightening of the C-spine curvature. Normal vertebral bodies and posterior osseous elements. C2-3: Normal endplates. Normal disc height, signal and morphology. Normal central canal and intervertebral neural foramina. C3-4: Normal endplates. Normal disc height, signal and morphology. Normal central canal and intervertebral neural foramina. C4-5: Normal endplates. Minimal disc space height narrowing. Normal disc morphology. Normal central canal and intervertebral neural foramina. C5-6: Normal endplates. Pronounced disc space height narrowing. Asymmetric bone spurs arising from the uncovertebral joints, left greater than right causing moderate stenosis of the left intervertebral neural foramen and mild stenosis of the right intervertebral neural foramen. C6-7: Normal endplates. Minimal disc space height narrowing. Normal central canal and left intervertebral neural foramen. Mild stenosis of the right intervertebral neural foramen due to small osteophyte arising from the right uncovertebral joint. C7-T1: Normal endplates. Normal disc height, signal and morphology. Normal central canal and intervertebral neural foramina. T1-T2, T2-T3, T3-T4: (Sagittal only). Normal endplates. Normal disc height, signal and morphology. Normal central canal and intervertebral neural foramina. Normal cervical cord. Normal included upper thoracic spinal cord. Abnormal T2 hyperintensity in the middle third of the posterior midline medulla oblongata. Etiology is unknown. Normal visualized soft tissue structures. MRI/Spine Cervical (Routine) IMPRESSION: 1. 1 x 0.6 cm abnormal T2 hyperintensity in the middle third of the posterior midline done oblongata without associated brainstem atrophy or cystic change. Etiology is unknown at this time. Recommend MRI of the brain with intravenous contrast and thin sagittal and axial cuts through the brainstem for further evaluation. 2. No MRI evidence of any intrinsic signal abnormality of the cervical spinal cord and the included upper thoracic spinal cord. 3. Moderate stenosis of the left C5-C6 intervertebral neural foramen and mild stenosis of the right C5-C6 intervertebral neural foramen due to bone spurs arising from the uncovertebral joints. 4. Mild stenosis of the right C6-C7 intervertebral neural foramen due to osteophyte arising from the right uncovertebral joint. 5. No MRI evidence of cervical extruded disc fragment or disc protrusion. Electronically Signed: Isaak Quiroz MD at 16:07 EST ,
[2022-09-04] MEDS: Aspirin 81 MG TAB.CHEW PO (12:59)
[2022-09-04] MEDS: carBAMazepine 200 MG Tablet PO ×2 (12:59→20:34)
[2022-09-04] MEDS: Topiramate 100 MG Tablet PO (12:59)
[2022-09-04] MEDS: Pantoprazole Sodium 40 MG Tablet PO (13:00)
[2022-09-04] MEDS: DULoxetine Hcl 60 MG Capsule PO ×2 (13:00→20:32)
[2022-09-04] MEDS: Clopidogrel Bisulfate 75 MG Tablet PO (13:04)
[2022-09-04 13:57] LABS: Vitamin B12 471 pg/mL (211-911)
--- NOTE | 2022-09-04 14:55 | PN.HOSP_ITS ---
Reason for Visit Reason for Visit: Slurred speech Left upper extremity tingling/numbness Subjective Subjective Ms Soto is a 57-year-old white female who presented to the emergency department on 09/03/2022 with slurred speech and wobbling gait for about 1 week. She evidently was scheduled for an outpatient MRI secondary to her symptoms but she was still having her slurred speech and then developed left upper extremity tingling and numbness and wobbling gait in the last 2 to 3 days. She felt like she was having difficulty ambulating straight and felt like she was much more weak than she had been previously. At baseline she ambulates with a cane. Str basim alert was not called as she had symptoms for about a week. She was noted to be sinus bradycardia on presentation with a heart rate of 38 with normal QTc and a first-degree heart block with a RI interval of 224 ms. Her heart rate improved and has maintained in the 60s to 80s for the most part since admission. She was admitted to PCU and stroke work-up was pursued. Today upon my evaluation she was getting ready to work with physical and Occupational Therapy and after their evaluation they did recommend ongoing acute rehab which will be pursued by case management and social work. Is agreeable to this. Objective Data Objective Data Vital Signs: Vital Signs Temp Pulse Resp BP Pulse Ox O2 Del Method 98.0 F 73 17 146/77 H 97 Room Air 09/04/22 11:55 09/04/22 11:55 09/04/22 11:55 09/04/22 11:55 09/04/22 11:55 09/04/22 11:55 Oxygen Delivery Method Room Air Weight: 99.79 kg Body Mass Index (BMI) 35.5 Intake & Output: Intake and Output for Last 24 Hours 09/02/22 09/03/22 09/04/22 23:59 23:59 23:59 Intake Total 2059 955 / 955 Balance 2059 955 / 955 Lab / Micro Data Result Diagrams: 09/03/22 07:25 09/04/22 05:35 Labs: Laboratory Results - last 24 hr 09/03/22 07:25: Vitamin B12 471 09/03/22 10:32: Phosphorus 3.0, Magnesium 2.1 09/03/22 17:37: Troponin I High Sens 5 09/03/22 17:42: POC Glucose 119 H 09/03/22 19:44: Troponin I High Sens 7 09/03/22 22:17: POC Glucose 164 H 09/03/22 23:22: Troponin I High Sens 10 09/04/22 05:35: Sodium 144, Potassium 3.8, Chloride 115 H, Carbon Dioxide 21.0, Anion Gap 8, BUN 19 H, Creatinine 0.97, Estim Creat Clear Calc 60.62, Est GFR (MDRD) Af Amer 77, Est GFR (MDRD) Non-Af 63, BUN/Creatinine Ratio 19.6, Glucose 176 H, Calcium 8.7, Triglycerides 385 H, Cholesterol 138, LDL Cholesterol 30, VLDL Cholesterol 77 H, HDL Cholesterol 31 L, TSH 1.98 09/04/22 05:35: Hemoglobin A1c 6.5 H 09/04/22 06:17: POC Glucose 165 H 09/04/22 11:40: POC Glucose 195 H Radiography Diagnostic Testing: Radiology Impression Brain MRI 09/03/22 16:41 IMPRESSION: Involutional changes of the brain, as described above. Signal alteration of the medulla suggesting prior insult or infarct. No hemorrhage or acute infarct. Electronically Signed: King Jose MD at 11:11 EST Reading Location ID and State: [address] [place] [place] [address] , Service support , Echocardiogram 09/03/22 16:41 Interpretation Summary The estimated ejection fraction is 55-60 %. Normal LV systolic function No significant Valvular regurgitation No previous study tgo compare Ordering Physician: Forrest Pascal Referring Physician: EMILY ARIAS Performed By: Rebekah Al RCS Head MRA 09/03/22 16:41 IMPRESSION: Normal MRA of the head. No aneurysm or large vessel occlusion. Electronically Signed: King Jose MD at 11:21 EST , Neck MRA 09/03/22 16:41 IMPRESSION: No hemodynamically significant internal carotid artery stenosis. Motion artifact degrades detail. Electronically Signed: King Jose MD at 11:23 EST , Physical Exam Const alert, oriented x3, no apparent distress and well nourished Constitutional Narrative: Obese, upper middle-aged white female sitting up on the edge of the bed getting ready to work with therapy services, appears comfortable, nontoxic, very pleasant HEENT head/scalp atraumatic and moist oral mucous membranes HEENT Narrative: Mallampati 3-4, dentition is fair, no thrush Head and Scalp: normocephalic Resp Resp Narrative: Diminished diffusely with few scattered end expiratory wheezes Auscultation: wheezes; Negative for rales or rhonchi Cardio regular rate, regular rhythm, S1 normal heart sound, S2 normal heart sound, no murmurs, no rub, no gallops and no clicks GI normal to inspection, nondistended, normoactive bowel sounds, soft to palpation and non-tender Extremity no clubbing, cyanosis or edema Extremity Narrative: 2+ pedal pulses Neuro oriented x3, moves all extremities, no focal motor deficits and No no sensory deficits noted Neuro Narrative: Patient with some dysarthria, sensory changes on left side of face and left upper extremity, no significant motor deficits, cranial nerves otherwise are intact Speech: Negative for speech normal Psych affect normal Psych Narrative: Very pleasant, appropriately interactive Assessment & Plan Assessment/Plan (1) CVA (cerebral vascular accident): (2) Slurred speech: (3) Bradycardia: (4) General weakness: PLAN: Plan Acute midbrain stroke -Discussed case with [facility]y and they feel that she likely had a brainstem stroke possibly in the ventral jesenia -Patient high risk overall -Ongoing dysarthria and left-sided face numbness/left upper extremity numbness -MRI here shows old stroke but no acute findings however they are highly concerned that this is an acute infarct -MRA of the head and neck were unremarkable -Recommended B12 which was found to be normal -MRI of the cervical spine is pending with upper extremity symptoms on the left side -Continue aspirin -Start Plavix -Patient already is on high intensity statin -Diabetes appears well controlled with A1c less than 7 -Echocardiogram was obtained and showed an EF of 55 to 60% with a normal LV function no significant valvular regurgitation and a negative bubble study -Will need event monitor at discharge -PT/OT/speech therapy recommending ongoing therapy with inpatient rehab at discharge -Awaiting rehab acceptance and pre-CERT Bradycardia -Noted on presentation -Has not had any since that point in time -EK G only showed first-degree heart block -Continue to monitor on telemetry Generalized weakness -Ongoing therapy as noted above Hyperlipidemia -Lipid panel obtained on admission -Total cholesterol 138/HDL 31/LDL 30/triglycerides 385 -Continue high intensity dose statin -We will add fenofibrate for triglycerides as it appears her A1c is controlled at baseline Seizure disorder -Home medication list is incorrect -Change Topamax to 200 mg p.o. twice daily -Change Tegretol to 200 mg p.o. twice daily DM-2 -A1c demonstrates good control with a hemoglobin A1c of 6.5 -Hold home oral and's -Continue home insulin -Sliding scale insulin and Accu-Cheks as ordered Diabetic neuropathy -Continue home gabapentin Migraine -Continue home as needed History of stroke -Treatment as above History of psoriasis -No acute outbreaks GERD -Continue home PPI Obesity -Recommend weight loss -BMI 35.5 -Complicates treatment, prognosis, outcomes DVT prophylaxis -Continue enoxaparin 40 mg daily CODE STATUS -Full code Charges/Coding Visit Charges Inpatient E&M: 59734 Subs Hosp L2
[2022-09-04] MEDS: Acetaminophen/Butalbital/Caffe 1 Tablet PO ×2 (15:31→20:31)
[2022-09-04] MEDS: Gabapentin 100 MG Capsule PO (15:31)
--- NOTE | 2022-09-04 15:50 | CASEMGMT ---
JAYA completed PHQ 9 with patient and she scored a 13 which indicates moderate depression. Patient already sees a counselor and a Psychiatrist. Patient is due to see her Psychiatrist in September. She plans on talking with him about adjusting her medications. JAYA did give her information on the [facility] Stroke support group. Joselin ALICIA
--- NOTE | 2022-09-04 15:52 | CASEMGMT ---
SW met with patient. Introduced self and role at [facility]. SW let patient know SW was informed she would be agreeable to Inpatient Rehab. SW let patient know she will stay here at [facility] until her insurance gives us approval or denial. SW let patient know SW is not sure her insurance will approve her, but we can try. Referral was made to [facility] Inpatient Rehab Unit. Dr Estrada will review patient's chart on Wednesday. Patient will need insurance authorization. Joselin ALICIA
--- NOTE | 2022-09-04 16:04 | CHAPLAIN ---
Type of Pastoral Visit _x__ Initial Visit ___ Follow-up Visit ___ On-call Visit ___ General Patient Visit ___ Spiritual Assessment ___ Family Conference ___ Bereavement ___ Rapid Response ___ Code Blue ___ Other (describe below) Pastoral Care Referral From _x__ Patient ___ Family ___ Nurse ___ Physician ___ Senior Mainframe Developer ___ Building Construction Engineer ___ Other (describe below) Sacrament/Intervention _x__ Active listening ___ Anointing ___ Christian ___ Bereavement ___ Communion _x__ Lisa exploration ___ _x__ Life review _x__ Prayer ___ Reconciliation ___ Sacrament of Sick _x__ Supportive presence ___ Wedding ___ Other (describe below) Pastoral Comments patient is welcoming of spiritual care support; pt states that this is her second stroke and it is frustrating for the difficulty in speech; pt is concerned that people will view her as an ignorant person because of the slowness of speech; pt is hopeful for rehab; pt states that her lisa is strong and that she has good support from a sister and lui; pt welcomes presence and prayer
--- NOTE | 2022-09-04 16:48 | CASEMGMT ---
RN SULEMAN NOTE: Intro role of CM to patient and [facility] form explained re: Observation status for treatment of stroke.? Explained hospitalization will be paid per herinsurance policy for Outpatient billing?and condition will continue to be evaluated for Inpt necessity. Also let pt know that [facility] sends paper in the billing packet with their phone number if questions arise. Discussed Pharmacy section of [facility] form and self administered medication guideline.? Pt verbalizes understanding and does not have further questions. ?Form signed, copy made and placed in chart, and original given to pt. Norbert DERASN RN CM
[2022-09-04 17:10] LABS: Bedside Glucose 234 mg/dL (74-106)
[2022-09-04] MEDS: proMETHazine 25 MG Tablet PO (18:45)
[2022-09-04] MEDS: Atorvastatin Calcium 80 MG Tablet PO (20:33)
[2022-09-04] MEDS: Topiramate 100 MG Tablet 200 MG PO (20:34)
[2022-09-04] MEDS: LORazepam 0.5 MG Tablet PO (22:14)
[2022-09-04] MEDS: Gabapentin 800 MG Tablet PO (22:14)
[2022-09-04] MEDS: MELATONIN 3 MG TABLET PO (22:15)
[2022-09-04] MEDS: Insulin Glargine-YFGN 100 UNIT/ML Pen 20 UNIT SC (22:19)
[2022-09-04 23:26] LABS: Bedside Glucose 205 mg/dL (74-106)
[2022-09-05] VITALS (9 sets, daily range): BP systolic 103–145; BP diastolic 63–81; PULSE 59–69; RESP 16–18; TEMP 36.1–36.7; O2SAT 96–100; BMI 35.5
[2022-09-05] MEDS: Acetaminophen/Butalbital/Caffe 1 Tablet PO ×3 (00:55→19:55)
[2022-09-05 04:06] LABS: Bacteria 0 SEEN /hpf (None Seen); Mucous, Urine 0 SEEN /hpf (<or=2+); Red Blood Cells-Urine 0 SEEN /hpf (0-5); Squamous Epithelial Cells - UA 0 SEEN /hpf (5-10); White Blood Cells 0 SEEN /hpf (0-5)
[2022-09-05 04:07] LABS: Color, Urine Yellow (Yellow); Glucose, Dipstick Normal (Normal); Ketone-Dipstick Negative (Negative); Leukocyte Esterase-Dipstick Negative /ul (Negative); Nitrite-Dipstick Negative (Negative); Occult Blood-Urine Negative /ul (Negative); Protein-Dipstick Negative (Negative); Urine Bilirubin Dipstick Negative (Negative); Urine Clarity Clear (Clear); Urine Urobilinogen Normal (Normal)
[2022-09-05] MEDS: tiZANidine HCl 2 MG Tablet PO ×3 (05:25→19:54)
[2022-09-05] MEDS: Gabapentin 100 MG Capsule PO ×2 (05:25→14:51)
[2022-09-05] MEDS: Insulin Lispro 100 UNIT/ML INSULN.PEN SC ×4 (06:44→22:41)
[2022-09-05 07:20] LABS: Bedside Glucose 230 mg/dL (74-106)
[2022-09-05 07:29] LABS: Absolute Lymphocyte Count 1.72 X10^3/uL (0.83-4.51); Absolute Neutrophil Count 3.4 X10^3/uL (2.0-7.7); Basophil# 0.02 X10^3/uL; Basophil% 0.3 % (0-1); Eosinophil# 0.08 X10^3/uL; Eosinophils% 1.3 % (0-5); Hematocrit 35.7 % (37-47); Hemoglobin 12.3 g/dL (12.0-15.0); Lymphocyte # 1.72 X10^3/ul (0.83-4.51); Mean Corp Hgb Conc 34.5 g/dL (32-36); Mean Corpuscular Hgb 34.2 pg (27.0-32.0); Mean Corpuscular Volume 99.2 fL (81-99); Mean Platelet Vol. 11.5 fl (6.2-12.0); Monocyte# 0.72 X10^3/uL; Monocyte% 12.1 % (0-10); NRBC Flagged by Analyzer 0 % (0-5); Neutrophil # 3.37 X10^3/uL (2.7-7.7); Platelet Count 210 K/mm3 (150-450); RBC Distribution Width CV 12.6 % (11.6-14.6); RBC Distribution Width SD 45.5 fl (35.1-43.9); White Blood Count 5.9 K/mm3 (4.4-11.0)
[2022-09-05] MEDS: carBAMazepine 200 MG Tablet PO ×2 (08:27→22:36)
[2022-09-05] MEDS: DULoxetine Hcl 60 MG Capsule PO ×2 (08:28→22:38)
[2022-09-05] MEDS: Aspirin 81 MG TAB.CHEW PO (08:28)
[2022-09-05] MEDS: Topiramate 100 MG Tablet 200 MG PO ×2 (08:28→22:37)
[2022-09-05] MEDS: guaiFENesin 10 ML UDC (200MG/10ML) PO ×3 (08:29→22:42)
[2022-09-05] MEDS: Enoxaparin 40 MG/0.4 ML Syringe SC (08:29)
[2022-09-05] MEDS: Pantoprazole Sodium 40 MG Tablet PO (08:30)
[2022-09-05] MEDS: Clopidogrel Bisulfate 75 MG Tablet PO (08:30)
[2022-09-05] MEDS: proMETHazine 25 MG Tablet PO ×2 (11:29→22:42)
[2022-09-05] MEDS: Insulin Glargine-YFGN 100 UNIT/ML Pen 20 UNIT SC ×2 (11:29→22:40)
--- NOTE | 2022-09-05 11:38 | PCM.PN.HOSP ---
Reason for Visit Reason for Visit: Slurred speech Left upper extremity sensory changes Gait disturbances Subjective Subjective Patient still with some sensory changes in her left upper extremity and left face. Speech is still slurred however patient reports she feels it may be a little bit better. Developed some sore throat and intermittent coughing through the night and COVID test was performed and found to be positive. This was a PCR. Patient admits she has known exposure at home with her sister and [id number]. This may limit our discharge to rehab here however other facilities are taking COVID-positive patients and I discussed this with case management and they will look into this further. Objective Data Objective Data Vital Signs: Vital Signs Temp Pulse Resp BP Pulse Ox O2 Del Method 97.1 F L 59 L 16 103/67 99 Room Air 09/05/22 11:33 09/05/22 11:33 09/05/22 11:33 09/05/22 11:33 09/05/22 11:33 09/05/22 11:33 Oxygen Delivery Method Room Air Weight: 99.79 kg Body Mass Index (BMI) 35.5 Intake & Output: Intake and Output for Last 24 Hours 09/03/22 09/04/22 09/05/22 23:59 23:59 23:59 Intake Total 2059 / 2059 2605 / 3005 800 / 800 Output Total 500 / 500 Balance 2059 2605 / 3005 300 / 300 Lab / Micro Data Result Diagrams: 09/05/22 06:32 09/04/22 05:35 Labs: Laboratory Results - last 24 hr 09/03/22 07:25: Vitamin B12 471 09/04/22 11:40: POC Glucose 195 H 09/04/22 16:46: POC Glucose 234 H 09/04/22 22:17: POC Glucose 205 H 09/05/22 01:30: Urine Color Yellow, Urine Clarity Clear, Urine pH 8.0, Ur Specific [place] 1.010, Urine Protein Negative, Urine Glucose (UA) Normal, Urine Ketones Negative, Urine Occult Blood Negative, Urine Nitrite Negative, Urine Bilirubin Negative, Urine Urobilinogen Normal, Ur Leukocyte Esterase Negative, Urine RBC 0 SEEN, Urine WBC 0 SEEN, Ur Squamous Epith Cells 0 SEEN, Urine Bacteria 0 SEEN, Urine Mucus 0 SEEN 09/05/22 04:00: COVID-19 ([place]) Detected 09/05/22 06:32: WBC 5.9, RBC 3.60 L, Hgb 12.3, Hct 35.7 L, MCV 99.2 H, MCH 34.2 H, MCHC 34.5, RDW Std Deviation 45.5 H, RDW Coeff of He 12.6, Plt Count 210, MPV 11.5, Immature Gran % (Auto) 0.300, Neut % (Auto) 57.0, Lymph % (Auto) 29.0, [place] % (Auto) 12.1 H, Eos % (Auto) 1.3, Baso % (Auto) 0.3, Absolute Neuts (auto) 3.4, Absolute Lymphs (auto) 1.72, Nucleated RBC % 0 09/05/22 06:32: Phosphorus 3.0, Magnesium 2.0 09/05/22 06:42: POC Glucose 230 H Radiography Diagnostic Testing: Radiology Impression Echocardiogram 09/03/22 16:41 Interpretation Summary The estimated ejection fraction is 55-60 %. Normal LV systolic function No significant Valvular regurgitation No previous study tgo compare Ordering Physician: Forrest Pascal Referring Physician: EMILY ARIAS Performed By: Rebekah Al RCS Cervical Spine MRI 09/04/22 12:42 IMPRESSION: 1. 1 x 0.6 cm abnormal T2 hyperintensity in the middle third of the posterior midline done oblongata without associated brainstem atrophy or cystic change. Etiology is unknown at this time. Recommend MRI of the brain with intravenous contrast and thin sagittal and axial cuts through the brainstem for further evaluation. 2. No MRI evidence of any intrinsic signal abnormality of the cervical spinal cord and the included upper thoracic spinal cord. 3. Moderate stenosis of the left C5-C6 intervertebral neural foramen and mild stenosis of the right C5-C6 intervertebral neural foramen due to bone spurs arising from the uncovertebral joints. 4. Mild stenosis of the right C6-C7 intervertebral neural foramen due to osteophyte arising from the right uncovertebral joint. 5. No MRI evidence of cervical extruded disc fragment or disc protrusion. Electronically Signed: Isaak Quiroz MD at 16:07 EST , Physical Exam Const alert, oriented x3, no apparent distress and well nourished Constitutional Narrative: Obese, upper middle-aged white female lying in bed watching television, appears comfortable, nontoxic, very pleasant HEENT head/scalp atraumatic and moist oral mucous membranes HEENT Narrative: Mallampati 3, no thrush Head and Scalp: normocephalic Resp normal respiratory effort, no retractions, no use of accessory muscles and clear to auscultation bilaterally Resp Narrative: Diminished diffusely Auscultation: Negative for rales, rhonchi or wheezes Cardio regular rate, regular rhythm, S1 normal heart sound, S2 normal heart sound, no murmurs, no rub, no gallops and no clicks GI normal to inspection, nondistended, normoactive bowel sounds, soft to palpation and non-tender Extremity no clubbing, cyanosis or edema Extremity Narrative: 2+ pedal pulses Neuro oriented x3, moves all extremities, no focal motor deficits and No no sensory deficits noted Neuro Narrative: Patient remains with some dysarthria however does sound better, sensory changes on left side of face and left upper extremity remain, no significant motor deficits, cranial nerves otherwise are intact Speech: Negative for speech normal Psych affect normal Psych Narrative: Very pleasant, appropriately interactive Assessment & Plan Assessment/Plan (1) CVA (cerebral vascular accident): (2) Slurred speech: (3) Bradycardia: (4) General weakness: (5) COVID-19 virus infection: PLAN: Plan Acute midbrain stroke -Discussed case with [facility] neurology and they feel that she likely had a brainstem stroke possibly in the ventral jesenia -Patient high risk overall -Ongoing dysarthria and left-sided face numbness/left upper extremity numbness -MRI here shows old stroke but no acute findings however they are highly concerned that this is an acute infarct -MRA of the head and neck were unremarkable -Recommended B12 which was found to be normal -MRI of the cervical spine shows a 1 x 0.6 cm abnormal T2 hyperintensity in the middle third of the posterior midline medulla oblongata without associated brainstem atrophy or cystic changes--> MRI with IV contrast ordered, no evidence of intrinsic cervical cord abnormality, moderate stenosis of the left C5-C6 intervertebral neural foramina and mild stenosis of the right C5-C6 intervertebral neural foramina due to bone spurs, mild stenosis of the right C6-C7 intervertebral root neuroforamina due to osteophyte and no evidence of cervical extruded disc fragmentation or protrusion -Continue aspirin -Continue Plavix -Patient already is on high intensity statin -Diabetes appears well controlled with A1c less than 7 -Echocardiogram was obtained and showed an EF of 55 to 60% with a normal LV function no significant valvular regurgitation and a negative bubble study -Will need event monitor at discharge -PT/OT/speech therapy recommending ongoing therapy with inpatient rehab at discharge -Awaiting rehab acceptance and pre-CERT Cervical spine MRI abnormality -Check MRI of the brain with contrast per radiology recommendations for further investigation COVID-19 infection -Patient with mild symptoms of mild cough and sore throat -Oxygen saturations 99% on room air. -No other warranted treatment at this time as an inpatient -We will affect discharge plan of care and I discussed with case management/social work to investigate possible discharge to another rehab facility given our facility is not taking COVID-positive patients. I no other facilities are at this time. They indicated they would investigate. Bradycardia -Noted on presentation -Could be related to acute COVID infection -Nothing below 59 since she was admitted from the emergency department -Has not had any since that point in time -EKG only showed first-degree heart block -Continue to monitor on telemetry Generalized weakness -Ongoing therapy as noted above Hyperlipidemia -Lipid panel obtained on admission -Total cholesterol 138/HDL 31/LDL 30/triglycerides 385 -Continue high intensity dose statin -Continue fenofibrate 145 mg daily Seizure disorder -Home medication list is incorrect -Continue Topamax to 200 mg p.o. twice daily -Continue Tegretol to 200 mg p.o. twice daily DM-2 -A1c demonstrates good control with a hemoglobin A1c of 6.5 -Hold home oral and's -Continue home insulin -Sliding scale insulin and Accu-Cheks as ordered Diabetic neuropathy -Continue home gabapentin Migraine -Continue home as needed History of stroke -Treatment as above History of psoriasis -No acute outbreaks GERD -Continue home PPI Obesity -Recommend weight loss -BMI 35.5 -Complicates treatment, prognosis, outcomes DVT prophylaxis -Continue enoxaparin 40 mg daily CODE STATUS -Full code Charges/Coding Visit Charges Inpatient E&M: 30915 Subs Hosp L2
--- NOTE | 2022-09-05 11:47 | MRI_ITS ---
We are attempting to reach an attending provider to discuss findings. An addendum with communication details will be sent when the communication is complete. EXAM: MR HEAD WITH INTRAVENOUS CONTRAST CLINICAL INDICATION: Abnormal brainstem on MRI cervical spine. TECHNIQUE: Multiplanar and multisequence MR images of the brain were obtained with intravenous contrast. This report was created using [employer] report generation technology. CONTRAST: 19CC IV CLARISCAN COMPARISON: MRI brain without contrast 09/04/2022. MRI cervical spine without contrast 09/04/2022. FINDINGS: BRAIN AND EXTRA-AXIAL SPACES: 1 x 0.6 cm partially rim-enhancing T1 hypointensity lesion in the middle third of the posterior midline medulla oblongata just above the junction of the lower third of the medulla oblongata (just above the inferior cerebellar peduncles). There is also a nonenhancing T1 hypointensity in the left periventricular white matter adjacent the inferior horn of the left lateral ventricle. This is an area of T2 FLAIR hyperintensity on the routine MRI brain without contrast. No intra- or extra-axial hemorrhage. No evidence of acute infarct. There is preservation of the manriquez/white matter interface. Ventricles are appropriate for age. No hydrocephalus. Basal cisterns are patent. No other enhancing intra-axial lesions throughout the brain parenchyma. No extra-axial enhancing lesions. SELLA: Unremarkable. Normal sella turcica, pituitary gland, infundibular stalk, optic chiasm and hypothalamus. AUDITORY SYSTEM: Unremarkable. The internal auditory canals are patent. BONES/JOINTS: Unremarkable. No discrete lytic or blastic abnormalities. SINUSES: Unremarkable as visualized. Clear. MASTOID AIR CELLS: Unremarkable as visualized. Clear. ORBITS: Unremarkable as visualized. Both globes, extraocular muscles, optic nerves and retrobulbar fat appear unremarkable. VASCULATURE: Unremarkable as visualized. Normal flow voids in the major intracranial circulation. MRI/Brain WITH Contrast IMPRESSION: 1 x 0.6 cm partially rim-enhancing T1 hypointensity lesion in the middle third of the posterior midline medulla oblongata just above the inferior cerebellar peduncles. There is a nonenhancing T1 hypointensity lesion in the left periventricular white matter adjacent the inferior horn of the left lateral ventricle. Exact etiology is uncertain at this time. Possibilities include enhancing active MS plaque versus malignant neoplasm with central cystic necrosis. Recommend CSF correlation. Electronically Signed: Isaak Quiroz MD at 14:30 EST ,
[2022-09-05 11:55] LABS: Bedside Glucose 289 mg/dL (74-106)
--- NOTE | 2022-09-05 14:59 | PT ---
CALF SKINNER created and instructed pt on exercises to increase strength of L LE for improved stability when standing. Seated Ankle DF/PF, LAQ, Marches, Hip abd/add x15 each. Pt reports feeling weaker on L LE with each exercise, demo'ing equal ROM except on Marches less ROM noted on L LE. Pt required cues on abd/add to get correct technique when demo'ing ability to perform Indep. Pt reports LE soreness after performing 15 reps. These specific exercises were individualized for pt's current function. CALF SKINNER provided pt with photos/directions of exercises and instructed pt to perform 2-3x/day, pt understanding.
--- NOTE | 2022-09-05 15:02 | CASEMGMT ---
Addendum entered by Linnette Levi 09/05/22 18:18: Patient will need precertification so will be here over the weekend. JAYA sent email to Mary Chopra inquiring as to when the 5 days starts for covid and she clarified the 5 days is from the test date which is today's date. Linnette SOTOMAYOR Original Note: JAYA called patient in her room, as patient has covid. Patient said that her preference is to stay at [facility] for rehab, which she stated 2x. JAYA called [facility]. They take COVID positive patients and patient's insurance. They also have beds. Linnette SOTOMAYOR
[2022-09-05 16:25] LABS: Bedside Glucose 160 mg/dL (74-106)
[2022-09-05] MEDS: MELATONIN 3 MG TABLET PO (22:38)
[2022-09-05] MEDS: Gabapentin 800 MG Tablet PO (22:39)
[2022-09-05] MEDS: Atorvastatin Calcium 80 MG Tablet PO (22:40)
[2022-09-05] MEDS: LORazepam 0.5 MG Tablet PO (22:42)
[2022-09-05 23:15] LABS: Bedside Glucose 246 mg/dL (74-106)
[2022-09-06 01:28] VITALS: BMI 35.5
[2022-09-06 02:36] VITALS: BP 116/73; PULSE 60; RESP 18; TEMP 36.6; O2SAT 99
[2022-09-06 06:04] VITALS: BP 114/70; PULSE 56; RESP 18; TEMP 36.6; O2SAT 100
[2022-09-06] MEDS: Acetaminophen/Butalbital/Caffe 1 Tablet PO ×2 (06:13→11:24)
[2022-09-06] MEDS: Insulin Lispro 100 UNIT/ML INSULN.PEN SC ×2 (06:13→11:17)
[2022-09-06] MEDS: Gabapentin 100 MG Capsule PO ×2 (06:13→14:33)
[2022-09-06] MEDS: 0.9% Saline Lock 10 ML Syringe IV ×2 (06:21→11:11)
[2022-09-06 07:05] LABS: Bedside Glucose 200 mg/dL (74-106)
[2022-09-06 08:08] VITALS: O2SAT 95
[2022-09-06] MEDS: Enoxaparin 40 MG/0.4 ML Syringe SC (08:57)
[2022-09-06] MEDS: Aspirin 81 MG TAB.CHEW PO (08:57)
[2022-09-06] MEDS: Clopidogrel Bisulfate 75 MG Tablet PO (08:58)
[2022-09-06] MEDS: Fluticasone 0.05% 1 SPRAY NASAL.SRY NASAL (08:58)
[2022-09-06] MEDS: DULoxetine Hcl 60 MG Capsule PO (08:58)
[2022-09-06] MEDS: Pantoprazole Sodium 40 MG Tablet PO (08:58)
[2022-09-06] MEDS: Fenofibrate 145 MG Tablet PO (08:59)
[2022-09-06] MEDS: Topiramate 100 MG Tablet 200 MG PO (09:00)
[2022-09-06] MEDS: tiZANidine HCl 2 MG Tablet PO (09:01)
[2022-09-06] MEDS: carBAMazepine 200 MG Tablet PO (09:01)
[2022-09-06] MEDS: Insulin Glargine-YFGN 100 UNIT/ML Pen 26 UNIT SC (09:07)
[2022-09-06 09:12] VITALS: BP 127/72; PULSE 62; RESP 14; TEMP 36.1; O2SAT 98
[2022-09-06] MEDS: guaiFENesin 10 ML UDC (200MG/10ML) PO (09:16)
[2022-09-06 09:46] LABS: Bedside Glucose 172 mg/dL (74-106)
--- NOTE | 2022-09-06 10:31 | CASEMGMT ---
ENRIQUE SHELL NOTE: Insurance review for hospitals In-network with [facility] Dual Insurance if transfer is recommended is as follows:? [facility], [place], [facility], [facility], [facility], [facility], [facility]), [facility], and .? Norbert MALHOTRA RN CM
[2022-09-06] MEDS: MethylPREDNISolone 125 MG/2 ML Vial 250 MG IV (11:11)
[2022-09-06] MEDS: Insulin Glargine-YFGN 100 UNIT/ML Pen 10 UNIT SC (11:16)
[2022-09-06 11:50] LABS: Bedside Glucose 251 mg/dL (74-106)
--- NOTE | 2022-09-06 12:37 | PCM.DC.SUM ---
Providers Date of Admission: 09/03/22 Date of Discharge: 09/06/22 Primary Care Physician: Dr. Vi Eng DO Reason For Visit: STROKE Diagnosis Discharge Diagnosis (1) CVA (cerebral vascular accident): Status: Acute Code(s): I63.9 - Cerebral infarction, unspecified (2) Slurred speech: Status: Acute Code(s): R47.81 - Slurred speech (3) Bradycardia: Status: Acute Code(s): R00.1 - Bradycardia, unspecified (4) General weakness: Status: Acute Code(s): R53.1 - Weakness (5) COVID-19 virus infection: Status: Acute Code(s): U07.1 - COVID-19 Medications at Discharge Home Medications albuterol sulfate 90 mcg/actuation aerosol inhaler 90 inh inhalation Q4H PRN PRN Wheezing 09/03/22 atorvastatin 80 mg tablet 80 mg PO QHS 09/03/22 lqieskdgsw-qaozcqqufgckl-ujagppav 50 mg-325 mg-40 mg tablet 1 tab PO Q4H PRN Headache 09/03/22 carbamazepine 200 mg tablet,extended release,12 hr 200 mg PO BID 09/03/22 diclofenac sodium 75 mg tablet,delayed release 75 mg PO BID 09/03/22 docusate sodium 100 mg capsule 100 mg PO BID 09/03/22 duloxetine 60 mg capsule,delayed release 60 mg PO BID 09/03/22 ergocalciferol (vitamin D2) 1,250 mcg (50,000 unit) capsule 50,000 unit PO QWEEK Check with primary doctor 09/03/22 flash glucose scanning reader ([employer] Es 2 [place]) 09/03/22 flash glucose sensor (FreeStyle Es 2 Sensor kit) 09/03/22 fluticasone propionate 50 mcg/actuation nasal spray,suspension 1 spray intranasal BID 09/03/22 fluticasone propionate 50 mcg/actuation nasal spray,suspension 1 spray intranasal DAILY Check with primary doctor 09/03/22 fluticasone propionate 50 mcg/actuation nasal spray,suspension 220 mcg intranasal 09/03/22 furosemide 40 mg tablet 40 mg PO DAILY Check with primary doctor 09/03/22 gabapentin 100 mg capsule 100 mg PO BID 09/03/22 gabapentin 800 mg tablet 800 mg PO QHS 09/03/22 glipizide 5 mg tablet 5 mg PO BID Check with primary doctor 09/03/22 glucagon 1 mg injection kit mg Check with primary doctor 09/03/22 hydroxyzine HCl 25 mg tablet 25 mg PO DAILY PRN Itching 09/03/22 insulin glargine 100 unit/mL subcutaneous solution (Lantus U-100 Insulin) 22 unit subcut BID Check with primary doctor 09/03/22 insulin lispro 100 unit/mL subcutaneous solution See Protocol subcut ACHS Check with primary doctor 09/03/22 insulin syr/ndl U100 half shirley 0.5 mL 31 gauge x 5/16 (Droplet Insulin Syringe (half unit)) 09/03/22 ipratropium 0.5 mg-albuterol 3 mg (2.5 mg base)/3 mL nebulization soln 3 ml inhalation QHS 09/03/22 lorazepam 0.5 mg tablet 0.5 mg PO QHS PRN anxietty 09/03/22 meclizine 25 mg tablet 25 mg PO BID 09/03/22 melatonin 12 mg tablet 3 mg PO QHS 09/03/22 naratriptan 2.5 mg tablet (Amerge) 2.5 mg PO Q4H PRN migraines 09/03/22 omeprazole 40 mg capsule,delayed release 40 mg PO DAILY 09/03/22 potassium chloride 20 mEq tablet,extended release(part/cryst) 20 meq PO DAILY 09/03/22 promethazine 25 mg tablet 25 mg PO Q6H PRN PRN Nausea 09/03/22 tizanidine 2 mg tablet 2 mg PO BID 09/03/22 topiramate 100 mg tablet 200 mg PO BID 09/03/22 Hospital Course Operations None Procedures 2-D Echocardiogram and - (CT of the head/MRI of the brain with and without contrast/MRA of the head and neck/cervical spine MRI) Summary of Care Provided Minutes Spent on Discharge: 37 Hospital Course: Ms Soto is a 57-year-old white female who presented to the emergency department on 09/03/2022 with slurred speech and wobbling gait for about 1 week.? She evidently was scheduled for an outpatient MRI secondary to her symptoms but she was still having her slurred speech and then developed left upper extremity tingling and numbness and wobbling gait in the last 2 to 3 days.? She felt like she was having difficulty ambulating straight and felt like she was much more weak than she had been previously.? At baseline she ambulates with a cane.? Stroke alert was not called as she had symptoms for about a week.? She was noted to be sinus bradycardia on presentation with a heart rate of 38 with normal QTc and a first-degree heart block with a AK interval of 224 ms.? Her heart rate improved and has maintained in the 60s to 80s for the most part since admission.? She was admitted to PCU and stroke work-up was pursued. Echocardiogram was obtained and she was found to have an EF of 55 to 60% with normal left ventricular systolic function and no significant valvular disease, bubble study was negative for ASD/PFO. MRI of the brain was performed and showed involutional changes of brain with signal alteration in the medulla that was suggestive of previous insult or infarct and no hemorrhage or acute infarct noted. We consulted neurology after imaging was obtained and they felt that she possibly had a midbrain stroke but wanted us to get a cervical spine MRI and a B12 level. Her B12 level was normal and her cervical MRI showed a 1 x 0.6 cm abnormal T2 hyperintensity in the middle third of the posterior midline medulla oblongata without associated brainstem atrophy or cystic changes, no MRI evidence of any intrinsic single abnormality in the cervical cord including the upper thoracic cord, moderate stenosis of the left C5-C6 intervertebral neural foramina and mild stenosis of the right C5-C6 intervertebral neural foramina due to osteophytes, mild stenosis of the right C6-C7 intervertebral neural foramina due to osteophytes, and no MRI evidence of cervical extruded disc fragmentation or protrusion. With these findings an MRI I of the brain utilizing IV contrast was recommended and pursued. MRI of the brain with contrast again demonstrated a one by one 0.6 partially rim-enhancing T1 hypointensity lesion in the middle third of the posterior midline medulla oblongata just above the inferior cerebellar peduncles as well as a nonenhancing T1 hypointensity lesion in the left periventricular white matter adjacent to the inferior horn of the left lateral ventricle. I discussed this personally with the radiologist and he was concerned specifically about MS plaques versus malignant neoplasm with cystic central necrosis. They recommended CSF correlation. I reconsulted neurology and they reviewed the case on 09/06/2022. They 2 are concerned about malignancy versus MS and recommend we initiate Solu-Medrol 250 mg IV every 6 and we obtain MR spectroscopy as well as an LP. They recommended transfer to tertiary site where neuro and neurosurgery were available. The patient desired to go to [facility] and the case was discussed and they accepted her for transfer on 09/06/2022. I did give her extra dose of Lantus 10 units along with her baseline dose of 25 units that morning to hopefully help compensate for the addition of Solu-Medrol as she is diabetic at baseline. Incidentally, she reported to us during her hospital stay that her sister and [id number], with whom she lives, recently tested positive for COVID-19. She complained of a mild cough and sore throat and she was tested and found to be PCR positive for COVID. Her overall course thus far for COVID-19 has been fairly mild and she is not requiring any supplemental oxygen. On the day of discharge she was feeling fairly well with regards to her viral infection. 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 COVID-19 infection -Bradycardia-resolved Generalized weakness Hyperlipidemia Seizure disorder DM-2 Diabetic neuropathy History of migraines History of stroke History of psoriasis GERD Obesity Physical Exam Narrative Const alert, oriented x3, no apparent distress, healthy appearing and well nourished Constitutional Narrative: Obese, upper middle-aged white female lying in bed watching television, appears comfortable, nontoxic, very pleasant General Appearance: cooperative, comfortable, well kempt and well developed Orientation / Consciousness: awake, oriented to person, oriented to place and oriented to time Exam Limitations: no limitations Nutritional Appearance: obese HEENT normocephalic, head/scalp atraumatic, hearing grossly normal bilaterally and moist oral mucous membranes HEENT Narrative: Mallampati 3, no thrush Eyes PERRL, EOMs intact bilaterally and conjunctivae normal Eyes Narrative: No scleral icterus Neck no lymphadenopathy and supple Neck Narrative: Trachea midline, no thyroid enlargement, neck is short and thick Resp normal respiratory effort, no retractions, no use of accessory muscles and clear to auscultation bilaterally Resp Narrative: Diminished diffusely Auscultation: Negative for rales, rhonchi or wheezes Cardio regular rate, regular rhythm, S1 normal heart sound, S2 normal heart sound, no murmurs, no rub, no gallops and no clicks GI normal to inspection, nondistended, normoactive bowel sounds, soft to palpation and non-tender Extremity no clubbing, cyanosis or edema Extremity Narrative: 2+ pedal pulses Neuro oriented x3, moves all extremities, no focal motor deficits and No no sensory deficits noted Neuro Narrative: Patient remains with dysarthria, sensory changes on left side of face and left upper extremity remain with no change, no significant motor deficits, cranial nerves otherwise are intact Speech: Negative for speech normal Psych affect normal Psych Narrative: Very pleasant, appropriately interactive Weight / BMI Weight Weight: 99.79 kg Body Mass Index (BMI) 35.5 ABG / Lab / Microbiology Data Result Diagrams: 09/05/22 06:32 09/04/22 05:35 Laboratory: Laboratory Results - last 24 hr 09/05/22 15:59: POC Glucose 160 H 09/05/22 22:35: POC Glucose 246 H 09/06/22 06:11: POC Glucose 200 H 09/06/22 08:51: POC Glucose 172 H 09/06/22 11:15: POC Glucose 251 H Microbiology: Microbiology 09/05/22 01:30 Urine, Random Urine Culture - Final Mixed Gram Pos & Gram Neg Org Radiography Diagnostic Testing: Radiology Impression Brain MRI 09/05/22 11:47 IMPRESSION: 1 x 0.6 cm partially rim-enhancing T1 hypointensity lesion in the middle third of the posterior midline medulla oblongata just above the inferior cerebellar peduncles. There is a nonenhancing T1 hypointensity lesion in the left periventricular white matter adjacent the inferior horn of the left lateral ventricle. Exact etiology is uncertain at this time. Possibilities include enhancing active MS plaque versus malignant neoplasm with central cystic necrosis. Recommend CSF correlation. Electronically Signed: Isaak Quiroz MD at 14:30 EST , ADDENDUM: 09/05/22 5816 IMPRESSION: 1 x 0.6 cm partially rim-enhancing T1 hypointensity lesion in the middle third of the posterior midline medulla oblongata just above the inferior cerebellar peduncles. There is a nonenhancing T1 hypointensity lesion in the left periventricular white matter adjacent the inferior horn of the left lateral ventricle. Exact etiology is uncertain at this time. Possibilities include enhancing active MS plaque versus malignant neoplasm with central cystic necrosis. Recommend CSF correlation. N.B. : The above Results were Read Back by Isaak Quiroz MD to Migdalia Carter RN, and understanding confirmed on 09/05/2022 14:50:01 (ET). Electronically Signed: Isaak Quiroz MD at 14:30 EST , Meaningful Use Info Meaningful Use Diagnoses (Choose all that apply): None applicable Discharge Plan Admission Admit Date/Time: 09/03/22 14:34 Primary Reason for Your Visit: Dysarthria/left upper extremity tingling/left facial tingling Attending Provider: Capri Barnes Primary Care Provider: Vi Eng Consulting Providers: Forrest Pascal Discharge Orders/Prescriptions Prescriptions: No Action atorvastatin 80 mg tablet 80 mg PO QHS Label Comments: TAKE ONE TABLET BY MOUTH DAILY AT 9PM AT BEDTIME insulin glargine [Lantus U-100 Insulin] 100 unit/mL Solution 22 unit SUBCUT BID furosemide 40 mg tablet 40 mg PO DAILY Label Comments: TAKE ONE TABLET BY MOUTH DAILY AT 9AM yottnwqcbo-afgomsnpbgkuk-duuo [Fioricet] 50-325-40 mg Tablet 1 tab PO Q4H PRN (Reason: Headache) potassium chloride 20 mEq tablet,ER particles/crystals 20 meq PO DAILY Label Comments: TAKE ONE TABLET BY MOUTH DAILY AT 9AM lorazepam 0.5 mg Tablet 0.5 mg PO QHS PRN (Reason: anxietty) hydroxyzine HCl 25 mg tablet 25 mg PO DAILY PRN (Reason: Itching) Label Comments: TAKE ONE TABLET BY MOUTH THREE TIMES DAILY NEEDED (VIAL) fluticasone propionate 50 mcg/actuation spray,suspension 1 spray INTRANASAL DAILY Label Comments: INSTILL 1 SPRAY INTO EACH NOSTRIL ONCE DAILY glipizide 5 mg tablet 5 mg PO BID Label Comments: TAKE ONE TABLET BY MOUTH TWICE DAILY @ 9AM & 5PM before meals glucagon 1 mg Kit ipratropium-albuterol 0.5 mg-3 mg(2.5 mg base)/3 mL solution for nebulization 3 ml inhalation QHS Label Comments: INHALE THREE ML DIRECTED EVERY 6 HOURS NEEDED (BULK) tizanidine 2 mg tablet 2 mg PO BID Label Comments: TAKE ONE TABLET BY MOUTH TWICE DAILY NEEDED (VIAL) omeprazole 40 mg capsule,delayed release(DR/EC) 40 mg PO DAILY Label Comments: TAKE ONE CAPSULE BY MOUTH DAILY AT 9AM gabapentin 800 mg tablet 800 mg PO QHS Label Comments: TAKE ONE TABLET BY MOUTH DAILY AT 9PM AT BEDTIME meclizine 25 mg tablet 25 mg PO BID Label Comments: TAKE ONE TABLET BY MOUTH TWICE DAILY @ 9AM & 5PM carbamazepine 200 mg tablet extended release 12 hr 200 mg PO BID promethazine 25 mg tablet 25 mg PO Q6H PRN PRN (Reason: Nausea) Label Comments: TAKE ONE-HALF TO 1 TABLET BY MOUTH EVERY 6 HOURS NEEDED (VIAL) docusate sodium 100 mg Capsule 100 mg PO BID diclofenac sodium 75 mg tablet,delayed release (DR/EC) 75 mg PO BID Label Comments: TAKE ONE TABLET BY MOUTH TWICE DAILY NEEDED (VIAL) gabapentin 100 mg Capsule 100 mg PO BID insulin lispro 100 unit/mL solution See Protocol subcut ACHS Protocol: 6. Sliding Scale Insulin Custom Condition: mg/dl range Dose/Route: Number of Units Protocol Text: Custom Sliding Scale Label Comments: INJECT PER SLIDING SCALE THREE TIMES DAILY FOLLOWS 1 UNIT IF LESS THAN 111, 2 UNITS 111-150, 4 UNITS 151-200, 7 UNITS 201-250, 10 UNITS 251-300, 13 UNITS 301-350, 16 UNITS 351-400, CALL MD OVER 400 (MAX 48 UNITS PER DAY) (BULK) albuterol sulfate 90 mcg/actuation HFA aerosol inhaler 90 inh INHALATION Q4H PRN PRN (Reason: Wheezing) Label Comments: INHALE TWO PUFFS BY MOUTH DIRECTED EVERY 4 HOURS NEEDED FOR WHEEZING OR FOR SHORTNESS OF BREATH (BULK) topiramate 100 mg tablet 200 mg PO BID Label Comments: TAKE ONE TABLET BY MOUTH THREE TIMES DAILY @9AM-3PM-9PM fluticasone propionate 50 mcg/actuation spray,suspension 1 spray INTRANASAL BID naratriptan [Amerge] 2.5 mg Tablet 2.5 mg PO Q4H PRN (Reason: migraines) Rx Instructions: do not exceed 2 doses per 24 hrs duloxetine 60 mg capsule,delayed release(DR/EC) 60 mg PO BID Label Comments: TAKE ONE CAPSULE BY MOUTH TWICE DAILY @ 9AM & 5PM (DME) FreeStyle Es 2 Sensor Kit MISCELLANEOUS Label Comments: apply 1 SENSOR to back OF UPPER ARM REMOVE AND REPLACE every 14 d... (REFER TO PRESCRIPTION NOTES). (DME) FreeStyle Es 2 [place] Mis MISCELLANEOUS Label Comments: USE CONTINUOUSLY TO MONITOR BLOOD SUGARS DAILY (DME) Droplet Insulin Syr(half unit) 0.5 mL 31 gauge x 5/16 syringe MISCELLANEOUS Label Comments: USE TO INJECT INSULIN UNDER THE SKIN EVERY MEAL AND AT BEDTIME PER SLIDING SCALE ergocalciferol (vitamin D2) 1,250 mcg (50,000 unit) capsule 50,000 unit PO QWEEK Label Comments: TAKE 1 CAPSULE BY MOUTH EVERY WEDNESDAY AT 9AM (VIAL) Rx Instructions: takes on mondays fluticasone propionate [Flonase] 50 mcg/actuation [place],Suspension 220 mcg INTRANASAL melatonin 12 mg Tablet 3 mg PO QHS Other Ambulatory Orders: 30 Day Event Recorder Preventi (Urgent) Timeframe: 1 Day Facility: [facility] - Location: Cardiovascular Services Ordered By: Dr. Capri Barnes Referrals / Follow Up: Vi Eng DO [Primary Care Provider] - Vicente Santoro MD [Non-Staff -Ordering Privileges] - Within 1 Month Disposition Disposition (needs filled in before D/C Order can be placed): Acute Care Hospital Charges/Coding Visit Charges Inpatient E&M: 30119 Disch Hosp >30min
[2022-09-06 14:36] VITALS: BP 132/71; PULSE 68; RESP 14; TEMP 36.1; O2SAT 97
[2022-09-06 16:13] VITALS: BMI 35.5
[2022-09-06 16:46] VITALS: BP 152/86; PULSE 73; RESP 16; O2SAT 97
--- NOTE | 2022-09-06 17:17 | NURSING ---
[facility] called back for report report given to Misa Quach RN patient left via squad to [facility] cell phone and belongings with patient
== END 2022-09-06 15:22 | disposition short-term general hospital (02) ==
LOC: ED 13:39 → PCU 15:17
PROVIDERS: Family Medicine; Admitting Provider Internal Medicine; Emergency Provider Emergency Medicine; PCP Family Medicine; Visit Provider Internal Medicine
DX: I63.9 Cerebral infarction, unspecified (principal); E11.40 Type 2 diabetes mellitus with diabetic neuropathy, unspecified; G40.909 Epilepsy, unspecified, not intractable, without status epilepticus; D49.6 Neoplasm of unspecified behavior of brain; Z79.4 Long term (current) use of insulin; R47.81 Slurred speech; U07.1 COVID-19; Z68.35 Body mass index [BMI] 35.0-35.9, adult; E78.00 Pure hypercholesterolemia, unspecified; Z87.891 Personal history of nicotine dependence; I44.0 Atrioventricular block, first degree; M17.12 Unilateral primary osteoarthritis, left knee; E66.9 Obesity, unspecified; K21.9 Gastro-esophageal reflux disease without esophagitis; R29.703 NIHSS score 3; Z79.899 Other long term (current) drug therapy; Z79.84 Long term (current) use of oral hypoglycemic drugs; Z79.51 Long term (current) use of inhaled steroids; R47.1 Dysarthria and anarthria
CPT/HCPCS: 36415; 70450; 70544; 70547; 70551; 70552; 71045; 72141; 80048; 80053; 80061; 81001; 82607; 82962; 83036; 83605; 83735; 84100; 84443; 84484; 85025; 85610; 85730; 87086; 87088; 87635; 92507; 92610; 93005; 93306; 94668; 94762; 96361; 96372; 96374; 96375; 96376; 97110; 97116; 97162; 97166; 97530; 99221; 99252; 99285; 99406; A9575; J7030; J7120; P9612; A4216; G0378; G0463; J2405; U0003; U0005

== ENCOUNTER 2022-11-07 21:33 | Emergency (ER) | payer MEDICARE, MEDICAID, SELFPAY ==
[2022-11-07] VITALS (17 sets, daily range): BP systolic 56–110; BP diastolic 33–72; PULSE 47–56; RESP 11–18; TEMP 36.5; O2SAT 96–100; BMI 35.8
--- NOTE | 2022-11-07 21:50 | CT_ITS ---
EXAM: CT brain without IV contrast. HISTORY: fall/trauma TECHNIQUE: No intravenous contrast. A radiation dose optimization technique was used for this scan. COMPARISON: MR brain without contrast September 04, 2022 and MR brain with contrast September 05, 2022. LIMITATIONS: None. BRAIN: Mild involutional change. Mild low attenuation bilaterally within the deep white matter, similar to the prior MRI. The partially enhancing lesion in the medulla described on the prior postcontrast MRI is not well visualized with CT. VENTRICLES: No hydrocephalus. EXTRA-AXIAL SPACES: No acute hemorrhage. CALVARIUM/SKULL BASE: No acute fracture. FACE/SINUSES: No significant abnormality. SOFT TISSUES: Normal. OTHER: None. CONCLUSION: No intracranial hemorrhage. Mild white matter changes are nonspecific, but are often secondary to chronic microvascular ischemia. Electronically Signed: Mike Matias MD at 23:00 EDT , CT/Brain/Head without Contrast IMPRESSION: undefined
--- NOTE | 2022-11-07 21:51 | EKG12_ITS ---
Test Reason : FALL Blood Pressure : / mmHG Vent. Rate : 055 BPM Atrial Rate : 055 BPM P-R Int : 208 ms QRS Dur : 096 ms QT Int : 452 ms P-R-T Axes : 041 -48 039 degrees QTc Int : 432 ms Sinus bradycardia Left anterior fascicular block Minimal voltage criteria for LVH, may be normal variant ( R in aVL ) Abnormal ECG Confirmed by ROB WHITE, PHILLIP ([id number]), assistant editor MEGAN CARPIO ([id number]) on 11/10/2022 1:14:09 PM Referred By: Confirmed By:PHILLIP RIVAS MD
--- NOTE | 2022-11-07 21:54 | ED.VIS.FALL ---
HPI HPI - Fall History of Present Illness Chief Complaint: Fall Informant: patient and EMS Occured/Mechanism Occurred: Today (JPTA) Mechanism/Context: Yes same level fall Pain/Injury Pain Location: head and back Associated Symptoms Associated Symptoms: Positive for Amnesia (to event) Narrative Narrative: Patient got out of bed tonight, and apparently passed out to the floor and woke up on the floor. She does not remember the event. She does remember getting out of bed however. She states she has had vomiting and diarrhea for the past 3 days and trouble keeping fluids down. No fevers or abdominal pain. She has a headache now, family member who is all her passed out, according to EMS since family did not come here, states that she hit her head on the floor when she fell. She also states she has some pain in her low back that she thinks is new from the fall. Patient denies any other pain or injury. She has some paresthesias in the left arm and leg that she states is chronic from her diabetic neuropathy. She she states it does not feel any different now. [facility] Medical History Diabetes Hypercholesterolemia Psoriasis Home Medications albuterol sulfate 90 mcg/actuation aerosol inhaler 90 inh inhalation Q4H PRN PRN Wheezing 09/03/22 [History Last Taken Unknown] atorvastatin 80 mg tablet 80 mg PO QHS 09/03/22 [History Last Taken Unknown] joijfjnmmu-zqubbucqbzayi-zurbjmcz 50 mg-325 mg-40 mg tablet 1 tab PO Q4H PRN Headache 09/03/22 [History Last Taken Unknown] carbamazepine 200 mg tablet,extended release,12 hr 200 mg PO BID 09/03/22 [History Last Taken Unknown] diclofenac sodium 75 mg tablet,delayed release 75 mg PO BID 09/03/22 [History Last Taken Unknown] docusate sodium 100 mg capsule 100 mg PO BID 09/03/22 [History Last Taken Unknown] duloxetine 60 mg capsule,delayed release 60 mg PO BID 09/03/22 [History Last Taken Unknown] ergocalciferol (vitamin D2) 1,250 mcg (50,000 unit) capsule 50,000 unit PO QWEEK Check with primary doctor 09/03/22 [History Last Taken Unknown] flash glucose scanning reader (Novaled Es 2 [place]) 09/03/22 [History Last Taken Unknown] flash glucose sensor (FreeStyle Es 2 Sensor kit) 09/03/22 [History Last Taken Unknown] fluticasone propionate 50 mcg/actuation nasal spray,suspension 1 spray intranasal BID 09/03/22 [History Last Taken Unknown] fluticasone propionate 50 mcg/actuation nasal spray,suspension 1 spray intranasal DAILY Check with primary doctor 09/03/22 [History Last Taken Unknown] fluticasone propionate 50 mcg/actuation nasal spray,suspension 220 mcg intranasal 09/03/22 [History Last Taken Unknown] furosemide 40 mg tablet 40 mg PO DAILY Check with primary doctor 09/03/22 [History Last Taken Unknown] gabapentin 100 mg capsule 100 mg PO BID 09/03/22 [History Last Taken Unknown] gabapentin 800 mg tablet 800 mg PO QHS 09/03/22 [History Last Taken Unknown] glipizide 5 mg tablet 5 mg PO BID Check with primary doctor 09/03/22 [History Last Taken Unknown] glucagon 1 mg injection kit mg Check with primary doctor 09/03/22 [History Last Taken Unknown] hydroxyzine HCl 25 mg tablet 25 mg PO DAILY PRN Itching 09/03/22 [History Last Taken Unknown] insulin glargine 100 unit/mL subcutaneous solution (Lantus U-100 Insulin) 22 unit subcut BID Check with primary doctor 09/03/22 [History Last Taken Unknown] insulin lispro 100 unit/mL subcutaneous solution See Protocol subcut ACHS Check with primary doctor 09/03/22 [History Last Taken Unknown] insulin syr/ndl U100 half shirley 0.5 mL 31 gauge x 5/16 (Droplet Insulin Syringe (half unit)) 09/03/22 [History Last Taken Unknown] ipratropium 0.5 mg-albuterol 3 mg (2.5 mg base)/3 mL nebulization soln 3 ml inhalation QHS 09/03/22 [History Last Taken Unknown] lorazepam 0.5 mg tablet 0.5 mg PO QHS PRN anxietty 09/03/22 [History Last Taken Unknown] meclizine 25 mg tablet 25 mg PO BID 09/03/22 [History Last Taken Unknown] melatonin 12 mg tablet 3 mg PO QHS 09/03/22 [History Last Taken Unknown] naratriptan 2.5 mg tablet (Amerge) 2.5 mg PO Q4H PRN migraines 09/03/22 [History Last Taken Unknown] omeprazole 40 mg capsule,delayed release 40 mg PO DAILY 09/03/22 [History Last Taken Unknown] potassium chloride 20 mEq tablet,extended release(part/cryst) 20 meq PO DAILY 09/03/22 [History Last Taken Unknown] promethazine 25 mg tablet 25 mg PO Q6H PRN PRN Nausea 09/03/22 [History Last Taken Unknown] tizanidine 2 mg tablet 2 mg PO BID 09/03/22 [History Last Taken Unknown] topiramate 100 mg tablet 200 mg PO BID 09/03/22 [History Last Taken Unknown] promethazine 25 mg tablet 25 mg PO Q6H PRN PRN Nausea #12 TABLETS 11/08/22 [Rx Last Taken Unknown] Allergy/AdvReac Type Severity Reaction Status Date / Time latex Allergy Rash Verified 11/07/22 21:51 levofloxacin [From Levaquin] Allergy Hives Verified 11/07/22 21:51 ondansetron [From Zofran] Allergy Hives Verified 11/07/22 21:51 nalbuphine [From Nubain] AdvReac Other Verified 11/07/22 21:51 Family History Father Cancer Mother Cancer Surgical History Hx of cholecystectomy Hx of tonsillectomy Hx of tubal ligation Social History Smoking Status: Former smoker ROS ROS ED Constitutional Constitutional ED: Reports malaise; Denies chills or fever(s) Eyes Eyes: Denies blurry vision, change in vision or diplopia ENT ENT ED: Denies rhinorrhea or sore throat Cardiovascular Cardiovascular: Denies chest pain or palpitations Respiratory/Chest Respiratory/Chest: Denies cough or dyspnea Gastrointestinal Gastrointestinal: Reports diarrhea, nausea and vomiting; Denies abdominal pain Genitourinary Genitourinary ED: Denies dysuria or hematuria Musculoskeletal Musculoskeletal: Reports back pain; Denies neck pain Integumentary Denies abscess or rash Neurologic Neurologic: Reports headache(s), paresthesias LUE and LLE and other Details: slurred speech ; Denies weakness Psychiatric Psychiatric: Denies anxiety or suicidal thoughts EXAM Physical Exam Const Vital Signs: 11/07/22 21:34 11/07/22 22:04 11/07/22 22:02 Temperature 97.7 F L Temperature Source Temporal Pulse Rate 50 L 47 L 52 L Pulse Rate [Lying] Pulse Rate [Sitting (for 1 minute prior to obtaining)] Pulse Rate [Standing (for 1 minute prior to obtaining)] Respiratory Rate 18 12 14 Blood Pressure 98/62 88/56 L Blood Pressure [Lying] Blood Pressure [Sitting (for 1 minute prior to obtaining)] Blood Pressure [Standing (for 1 minute prior to obtaining)] Blood Pressure Mean 74 66 Blood Pressure Mean [Lying] Blood Pressure Mean [Sitting (for 1 minute prior to obtaining)] Blood Pressure Mean [Standing (for 1 minute prior to obtaining)] Pulse Ox 96 97 97 Oxygen Delivery Method Room Air Room Air 11/07/22 22:10 11/07/22 22:17 11/07/22 22:29 Temperature Temperature Source Pulse Rate 52 L 49 L Pulse Rate [Lying] Pulse Rate [Sitting (for 1 minute prior to obtaining)] Pulse Rate [Standing (for 1 minute prior to obtaining)] Respiratory Rate 13 13 Blood Pressure 110/61 Blood Pressure [Lying] Blood Pressure [Sitting (for 1 minute prior to obtaining)] Blood Pressure [Standing (for 1 minute prior to obtaining)] Blood Pressure Mean 77 Blood Pressure Mean [Lying] Blood Pressure Mean [Sitting (for 1 minute prior to obtaining)] Blood Pressure Mean [Standing (for 1 minute prior to obtaining)] Pulse Ox 97 99 Oxygen Delivery Method 11/07/22 22:30 11/07/22 22:30 11/07/22 22:34 Temperature Temperature Source Pulse Rate 48 L 48 L 47 L Pulse Rate [Lying] Pulse Rate [Sitting (for 1 minute prior to obtaining)] Pulse Rate [Standing (for 1 minute prior to obtaining)] Respiratory Rate 12 12 12 Blood Pressure 88/56 L 56/33 L Blood Pressure [Lying] Blood Pressure [Sitting (for 1 minute prior to obtaining)] Blood Pressure [Standing (for 1 minute prior to obtaining)] Blood Pressure Mean 67 42 Blood Pressure Mean [Lying] Blood Pressure Mean [Sitting (for 1 minute prior to obtaining)] Blood Pressure Mean [Standing (for 1 minute prior to obtaining)] Pulse Ox 99 99 99 Oxygen Delivery Method 11/07/22 22:40 11/07/22 22:45 11/07/22 22:50 Temperature Temperature Source Pulse Rate 47 L 50 L Pulse Rate [Lying] Pulse Rate [Sitting (for 1 minute prior to obtaining)] Pulse Rate [Standing (for 1 minute prior to obtaining)] Respiratory Rate 13 13 11 L Blood Pressure 75/51 L Blood Pressure [Lying] Blood Pressure [Sitting (for 1 minute prior to obtaining)] Blood Pressure [Standing (for 1 minute prior to obtaining)] Blood Pressure Mean 61 Blood Pressure Mean [Lying] Blood Pressure Mean [Sitting (for 1 minute prior to obtaining)] Blood Pressure Mean [Standing (for 1 minute prior to obtaining)] Pulse Ox 98 98 98 Oxygen Delivery Method 11/07/22 22:51 11/07/22 23:00 11/07/22 23:00 Temperature Temperature Source Pulse Rate 48 L 51 L 51 L Pulse Rate [Lying] Pulse Rate [Sitting (for 1 minute prior to obtaining)] Pulse Rate [Standing (for 1 minute prior to obtaining)] Respiratory Rate 12 12 12 Blood Pressure 85/57 L 74/51 L Blood Pressure [Lying] Blood Pressure [Sitting (for 1 minute prior to obtaining)] Blood Pressure [Standing (for 1 minute prior to obtaining)] Blood Pressure Mean 67 59 Blood Pressure Mean [Lying] Blood Pressure Mean [Sitting (for 1 minute prior to obtaining)] Blood Pressure Mean [Standing (for 1 minute prior to obtaining)] Pulse Ox 96 99 99 Oxygen Delivery Method 11/07/22 23:03 11/07/22 23:10 11/07/22 23:20 Temperature Temperature Source Pulse Rate 50 L 50 L 54 L Pulse Rate [Lying] Pulse Rate [Sitting (for 1 minute prior to obtaining)] Pulse Rate [Standing (for 1 minute prior to obtaining)] Respiratory Rate 17 11 L 12 Blood Pressure 89/63 L 99/62 Blood Pressure [Lying] Blood Pressure [Sitting (for 1 minute prior to obtaining)] Blood Pressure [Standing (for 1 minute prior to obtaining)] Blood Pressure Mean 72 74 Blood Pressure Mean [Lying] Blood Pressure Mean [Sitting (for 1 minute prior to obtaining)] Blood Pressure Mean [Standing (for 1 minute prior to obtaining)] Pulse Ox 98 98 100 Oxygen Delivery Method Room Air 11/07/22 23:46 11/08/22 00:03 Temperature Temperature Source Pulse Rate 56 L Pulse Rate [Lying] 54 L Pulse Rate [Sitting (for 1 minute prior to obtaining)] 56 L Pulse Rate [Standing (for 1 minute prior to obtaining)] 60 Respiratory Rate 12 Blood Pressure 107/72 Blood Pressure [Lying] 96/68 Blood Pressure [Sitting (for 1 minute prior to obtaining)] 108/73 Blood Pressure [Standing (for 1 minute prior to obtaining)] 90/60 Blood Pressure Mean 83 Blood Pressure Mean [Lying] 77 Blood Pressure Mean [Sitting (for 1 minute prior to obtaining)] 84 Blood Pressure Mean [Standing (for 1 minute prior to obtaining)] 70 Pulse Ox 96 Oxygen Delivery Method Room Air Positive well nourished and well developed General Appearance ED: well developed and NAD HEENT Reports moist mucous membranes normocephalic and atraumatic Eyes PERRL and EOMs intact bilaterally Neck full ROM and supple General: Negative for tenderness Resp normal respiratory effort and clear to auscultation bilaterally Cardio regular rate, regular rhythm and no murmurs GI non-tender and non-distended Auscultation: normoactive bowel sounds Palpation: soft Back/Spine no CVA tenderness Back/Spine Narrative: Tender throughout lumbar spine no step-off or signs of injury. General Back: tenderness and other FROM Extremity normal to inspection General Extremety ED: Negative for edema, pulses abnormal or tenderness General Extremity: Negative for edema or pulses abnormal Neuro oriented x3, CN's II-XII intact bilaterally and no sensory deficits noted Neuro Narrative: No gross sensory deficits, but altered sensation subjectively left upper and lower extremities, patient states that is my chronic diabetic neuropathy. Speech is slow, but not dysarthric or aphasic. Sensorium / Orientation: awake and alert Motor Exam: strength 5/5 throughout Psych Psych Narrative: Flat affect Skin no rashes or lesions noted and no wounds MDM MDM MDM Narrative Medical decision making narrative: Given patient's bradycardia which is apparently chronic, she has an old EKG that looks almost identical to the one we have here except she does not appear to have a first-degree AV block now but she does have a pre-existing left anterior fascicular block, and symptoms of vomiting diarrhea possible dehydration over the past several days, her history is consistent with orthostatic syncope. Performed a CT of her head given that she had an injury there, I reviewed the images they appear negative for any acute fracture or intracranial hemorrhage, radiology was in agreement. Also obtained a lumbar spine x-ray series, 3 views of my interpretation negative for acute fracture radiology in agreement with that as well. Her labs are consistent with dehydration and mild DIANE, along with a bicarb of 17 with no anion gap elevation. During the first liter of fluid that she was getting while we were working her up, she was about three-quarter way done with it, and she became hypotensive but not acutely symptomatic from this. Gave her another liter of fluid and on reevaluation her pressure is 108/75. I had nursing do orthostatics, they are negative, however it is midnight and the patient is very sleepy, we were able to wake her up enough to stand her up, but when she laid her back down she immediately went right back to sleep. I suspect this was due to the Reglan she was given for her nausea, since she is allergic to ondansetron. Looking at her vital signs now, they are normal. Her heart rate is in the 50s, which it was the last time she was seen here, when we stood her up it went up to 60. I do not think she has any type of pathologic AV block causing her bradycardia and she is on no AV steven blockers. Given all of this, I do not think she needs to be admitted. She was observed here for a short while, and is easily arousable and can be safely discharged home. Called her family, they are coming to pick her up. We will prescribe her antinausea medications. She has not had any vomiting here in the emergency department since she has been here so far. Lab Data Attestation: I reviewed the patient's lab results. Labs: Laboratory Results - last 24 hr 11/07/22 11/07/22 21:59 21:59 WBC 8.3 RBC 3.80 L Hgb 12.0 Hct 37.9 MCV 99.7 H MCH 31.6 MCHC 31.7 L RDW Std Deviation 47.5 H RDW Coeff of He 13.1 Plt Count 236 MPV 11.3 Immature Gran % (Auto) 0.400 Neut % (Auto) 65.1 Lymph % (Auto) 22.5 [place] % (Auto) 9.4 Eos % (Auto) 2.1 Baso % (Auto) 0.5 Absolute Neuts (auto) 5.4 Absolute Lymphs (auto) 1.86 Nucleated RBC % 0 Sodium 135 L Potassium 4.1 Chloride 107 Carbon Dioxide 17.0 L Anion Gap 11 BUN 23 H Creatinine 1.24 H Estim Creat Clear Calc 47.42 Est GFR (MDRD) Af Amer 58 L Est GFR (MDRD) Non-Af 48 L BUN/Creatinine Ratio 18.5 Glucose 212 H Calcium 8.2 L Total Bilirubin 0.30 AST 19 ALT 33 Alkaline Phosphatase 121 H Total Protein 7.1 Albumin 3.4 Globulin 3.7 Albumin/Globulin Ratio 0.9 Radiography Diagnostic Testing: Clinical Impression(s) from Imaging Studies Brain CT 11/07/22 21:50 IMPRESSION: undefined Lumbar Spine X-Ray 11/07/22 22:24 IMPRESSION: No acute fracture identified. Electronically Signed: Mike Matias MD at 23:37 EDT , Rhythm Strip Rhythm Strip: Sinus Rhythm Rate: 57 Ectopy: None EKG Initial EKG: Attestation: I personally reviewed and interpreted this EKG as follows: Interpretation: No Acute Injury Pattern, Sinus Bradycardia and LAFB Discharge Plan Triage Chief Complaint: Fall ED Provider: King Lambert Dx/Rx/DC Orders Clinical Impression: Orthostatic syncope, Acute dehydration, Gastroenteritis Instructions: Orthostatic Hypotension, ED Dehydration (Adult) Prescriptions: New promethazine [promethazine] 25 mg tablet 25 mg PO Q6H PRN PRN (Reason: Nausea) Qty: 12 0RF Continued atorvastatin 80 mg tablet 80 mg PO QHS Label Comments: TAKE ONE TABLET BY MOUTH DAILY AT 9PM AT BEDTIME insulin glargine [Lantus U-100 Insulin] 100 unit/mL Solution 22 unit SUBCUT BID cymgmbgdjf-xawaoicpgdkgz-pkom 50-325-40 mg Tablet 1 tab PO Q4H PRN (Reason: Headache) potassium chloride 20 mEq tablet,ER particles/crystals 20 meq PO DAILY Label Comments: TAKE ONE TABLET BY MOUTH DAILY AT 9AM lorazepam 0.5 mg Tablet 0.5 mg PO QHS PRN (Reason: anxietty) fluticasone propionate 50 mcg/actuation spray,suspension 1 spray INTRANASAL DAILY Label Comments: INSTILL 1 SPRAY INTO EACH NOSTRIL ONCE DAILY glipizide 5 mg tablet 5 mg PO BID Label Comments: TAKE ONE TABLET BY MOUTH TWICE DAILY @ 9AM & 5PM before meals glucagon 1 mg Kit ipratropium-albuterol 0.5 mg-3 mg(2.5 mg base)/3 mL solution for nebulization 3 ml inhalation QHS Label Comments: INHALE THREE ML DIRECTED EVERY 6 HOURS NEEDED (BULK) tizanidine 2 mg tablet 2 mg PO BID Label Comments: TAKE ONE TABLET BY MOUTH TWICE DAILY NEEDED (VIAL) omeprazole 40 mg capsule,delayed release(DR/EC) 40 mg PO DAILY Label Comments: TAKE ONE CAPSULE BY MOUTH DAILY AT 9AM gabapentin 800 mg tablet 800 mg PO QHS Label Comments: TAKE ONE TABLET BY MOUTH DAILY AT 9PM AT BEDTIME carbamazepine 200 mg tablet extended release 12 hr 200 mg PO BID promethazine 25 mg tablet 25 mg PO Q6H PRN PRN (Reason: Nausea) Label Comments: TAKE ONE-HALF TO 1 TABLET BY MOUTH EVERY 6 HOURS NEEDED (VIAL) docusate sodium 100 mg Capsule 100 mg PO BID diclofenac sodium 75 mg tablet,delayed release (DR/EC) 75 mg PO BID Label Comments: TAKE ONE TABLET BY MOUTH TWICE DAILY NEEDED (VIAL) gabapentin 100 mg Capsule 100 mg PO BID insulin lispro 100 unit/mL solution See Protocol subcut ACHS Protocol: 6. Sliding Scale Insulin Custom Condition: mg/dl range Dose/Route: Number of Units Protocol Text: Custom Sliding Scale Label Comments: INJECT PER SLIDING SCALE THREE TIMES DAILY FOLLOWS 1 UNIT IF LESS THAN 111, 2 UNITS 111-150, 4 UNITS 151-200, 7 UNITS 201-250, 10 UNITS 251-300, 13 UNITS 301-350, 16 UNITS 351-400, CALL MD OVER 400 (MAX 48 UNITS PER DAY) (BULK) albuterol sulfate 90 mcg/actuation HFA aerosol inhaler 90 inh INHALATION Q4H PRN PRN (Reason: Wheezing) Label Comments: INHALE TWO PUFFS BY MOUTH DIRECTED EVERY 4 HOURS NEEDED FOR WHEEZING OR FOR SHORTNESS OF BREATH (BULK) topiramate 100 mg tablet 200 mg PO BID Label Comments: TAKE ONE TABLET BY MOUTH THREE TIMES DAILY @9AM-3PM-9PM fluticasone propionate 50 mcg/actuation spray,suspension 1 spray INTRANASAL BID naratriptan [Amerge] 2.5 mg Tablet 2.5 mg PO Q4H PRN (Reason: migraines) Rx Instructions: do not exceed 2 doses per 24 hrs duloxetine 60 mg capsule,delayed release(DR/EC) 60 mg PO BID Label Comments: TAKE ONE CAPSULE BY MOUTH TWICE DAILY @ 9AM & 5PM (DME) FreeStyle Es 2 Sensor Kit MISCELLANEOUS Label Comments: apply 1 SENSOR to back OF UPPER ARM REMOVE AND REPLACE every 14 d... (REFER TO PRESCRIPTION NOTES). (DME) FreeStyle Es 2 [place] Misc MISCELLANEOUS Label Comments: USE CONTINUOUSLY TO MONITOR BLOOD SUGARS DAILY (DME) Droplet Insulin Syr(half unit) 0.5 mL 31 gauge x 5/16 syringe MISCELLANEOUS Label Comments: USE TO INJECT INSULIN UNDER THE SKIN EVERY MEAL AND AT BEDTIME PER SLIDING SCALE ergocalciferol (vitamin D2) 1,250 mcg (50,000 unit) capsule 50,000 unit PO QWEEK Label Comments: TAKE 1 CAPSULE BY MOUTH EVERY WEDNESDAY AT 9AM (VIAL) Rx Instructions: takes on mondays fluticasone propionate 50 mcg/actuation [place],Suspension 220 mcg INTRANASAL melatonin 12 mg Tablet 3 mg PO QHS Held furosemide 40 mg tablet 40 mg PO DAILY Hold Instructions: stop taking until your nausea and diarrhea are resolved Label Comments: TAKE ONE TABLET BY MOUTH DAILY AT 9AM hydroxyzine HCl 25 mg tablet 25 mg PO DAILY PRN (Reason: Itching) Hold Instructions: while needing to take new prescription nausea medication Label Comments: TAKE ONE TABLET BY MOUTH THREE TIMES DAILY NEEDED (VIAL) meclizine 25 mg tablet 25 mg PO BID Hold Instructions: while needing to take new prescription nausea medication Label Comments: TAKE ONE TABLET BY MOUTH TWICE DAILY @ 9AM & 5PM Primary Care Provider: Vi Eng Referrals: Vi Eng, [Primary Care Provider] - 3-5 Days if not improving (or return to the ER if you are unable to keep down fluids despite the nausea medication) Disposition Disposition: Home, Self Care
[2022-11-07] MEDS: Metoclopramide 10 MG/2 ML Vial 2.5 MG IV (21:58)
[2022-11-07] MEDS: 0.9% Normal Saline 1,000 ML 999 ML IV ×2 (21:58→22:51)
[2022-11-07 22:05] LABS: Absolute Lymphocyte Count 1.86 X10^3/uL (0.83-4.51); Absolute Neutrophil Count 5.4 X10^3/uL (2.0-7.7); Basophil# 0.04 X10^3/uL; Basophil% 0.5 % (0-1); Eosinophil# 0.17 X10^3/uL; Eosinophils% 2.1 % (0-5); Hematocrit 37.9 % (37-47); Lymphocyte # 1.86 X10^3/ul (0.83-4.51); Lymphocyte % 22.5 % (19-41); Mean Corp Hgb Conc 31.7 g/dL (32-36); Mean Corpuscular Hgb 31.6 pg (27.0-32.0); Mean Corpuscular Volume 99.7 fL (81-99); Mean Platelet Vol. 11.3 fl (6.2-12.0); Monocyte# 0.78 X10^3/uL; Monocyte% 9.4 % (0-10); NRBC Flagged by Analyzer 0 % (0-5); Neutrophil # 5.38 X10^3/uL (2.7-7.7); Neutrophil % 65.1 % (47-70); Platelet Count 236 K/mm3 (150-450); RBC Distribution Width CV 13.1 % (11.6-14.6); RBC Distribution Width SD 47.5 fl (35.1-43.9); White Blood Count 8.3 K/mm3 (4.4-11.0)
--- NOTE | 2022-11-07 22:24 | RAD_ITS ---
INDICATION: pain/fall EXAMINATION/TECHNIQUE: X-RAY - XR Spine Lumbar 2 Views COMPARISON: None. FINDINGS: Frontal and lateral views of the lumbar spine were obtained. No acute fracture is identified. Ajid-nq-lutwrhlj degenerative changes. Multilevel slight spondylolisthesis is likely related to the degenerative change. RAD/Lumbar Spine 2 or 3 Views IMPRESSION: No acute fracture identified. Electronically Signed: Mike Matias MD at 23:37 EDT ,
[2022-11-07 22:26] LABS: ALB/GLOB Ratio 0.9 RATIO (0.9-2.4); AST(SGOT) 19 U/L (15-37); Alanine Aminotransfer ALT/SGPT 33 U/L (13-56); Albumin, Serum 3.4 g/dL (3.2-5.0); Alkaline Phosphatase 121 U/L (45-117); Anion Gap 11 (5-15); BUN 23 mg/dL (7-18); BUN/Creat Ratio 18.5 RATIO (10-20); Calcium,Total 8.2 mg/dL (8.5-10.1); Chloride 107 mmol/L (98-107); Creatinine, Serum 1.24 mg/dL (0.55-1.02); EST Glomerular Filtration Rate 48 mL/min (>60); Est Glom Filt Rate - Afr Amer 58 mL/min (>60); Estimated Creatinine Clearance 47.42 ml/min; Globulin 3.7 g/dL (2.2-4.2); Glucose 212 mg/dL (74-106); Potassium 4.1 mmol/L (3.5-5.1); Protein, Total 7.1 g/dL (6.4-8.2); Sodium Level 135 mmol/L (136-145)
--- NOTE | 2022-11-07 23:23 | ED.RN ---
Pt unaware of daily medications.
[2022-11-08 00:03] VITALS: BP 108/73; BP 90/60; BP 96/68; PULSE 54; PULSE 56; PULSE 60
[2022-11-08 00:32] VITALS: BP 99/68; PULSE 58; RESP 14; O2SAT 97
[2022-11-08 00:35] LABS: Bedside Glucose 140 mg/dL (74-106)
[2022-11-10 15:30] LABS: Bedside Glucose 178 mg/dL (74-106)
== END 2022-11-08 01:25 | disposition home or self-care (01) ==
PROVIDERS: Emergency Provider Emergency Medicine; PCP Family Medicine; Visit Provider Emergency Medicine
DX: R55 Syncope and collapse (principal); E86.0 Dehydration; K52.9 Noninfective gastroenteritis and colitis, unspecified; Z86.73 Personal history of transient ischemic attack (TIA), and cerebral infarction without residual deficits; Z87.891 Personal history of nicotine dependence
CPT/HCPCS: 70450; 72100; 80053; 82962; 85025; 93005; 96374; 99285; J7030; A4216

== ENCOUNTER 2023-02-05 22:17 | Inpatient (IN) | payer MEDICARE, MEDICAID, SELFPAY ==
--- NOTE | 2023-02-05 00:10 | RAD_ITS ---
STUDY: X-RAY CHEST REASON FOR EXAM: Female, 57 years old. Neuro deficit, acute, stroke suspected TECHNIQUE: Single AP portable view of the chest. COMPARISON: September 03, 2022 chest x-ray FINDINGS: The lungs are clear and expanded. There is no demonstrated pleural abnormality. Normal size heart. Normal mediastinum and justine. Normal visualized pulmonary arteries. Normal visualized aortic arch and descending thoracic aorta. There are diffuse degenerative changes of the visualized thoracic spine. Normal visualized ribs, clavicles, and shoulders. There is no demonstrated abnormality of the visualized soft tissue structures of the upper abdomen. RAD/Chest 1 View IMPRESSION: No demonstrated acute cardiopulmonary process. Electronically Signed: Juju Fernandes MD at 1:23 EDT ,
[2023-02-05 22:17] VITALS: BP 85/55; BP 88/57; PULSE 52; PULSE 55; PULSE 56; RESP 16; RESP 17; RESP 18; TEMP 36.6; O2SAT 95; BMI 34.4
[2023-02-05 22:19] VITALS: BP 85/55; PULSE 55; RESP 17; TEMP 36.6; O2SAT 95; BMI 34.4
--- NOTE | 2023-02-05 22:19 | EKG12_ITS ---
Test Reason : DYSRHYTHMIA Blood Pressure : / mmHG Vent. Rate : 051 BPM Atrial Rate : 051 BPM P-R Int : 200 ms QRS Dur : 102 ms QT Int : 480 ms P-R-T Axes : 052 -47 025 degrees QTc Int : 442 ms Sinus bradycardia Left anterior fascicular block Abnormal ECG Confirmed by ROB WHITE, PHILLIP ([id number]), features editor MEGAN CARPIO ([id number]) on 02/06/2023 10:07:31 AM Referred By: BB Confirmed By:PHILLIP RIVAS MD
--- NOTE | 2023-02-05 22:19 | CT_ITS ---
INDICATION: Neuro deficit, acute, stroke suspected EXAMINATION: CT Head Stroke Protocol W/O Contrast Injection TECHNIQUE: Multiple axial images were obtained of the head without intravenous contrast. A radiation dose optimization technique was used for this scan. IV Contrast dosage and agent: None. COMPARISON: Head CT from 11/07/2022 FINDINGS: BRAIN PARENCHYMA: No intra- or extra-axial hemorrhage. No evidence of acute major territorial infarct. No intracranial mass or mass effect. Stable mild bilateral cerebral white matter lucencies. Chronic cerebral involutional changes also noted. CSF SPACES: Prominent cerebral sulci and extraaxial spaces secondary to involutional changes. No hydrocephalus. Basal cisterns are patent. CALVARIUM, SKULL BASE, PARANASAL SINUSES AND MASTOID AIR CELLS: Calvarium is intact. No acute findings within imaged paranasal sinuses. Mastoid air cells are well-pneumatized. ORBITS: No acute findings. ASPECTS Score for Acute Strokes: 10 CT/STROKE Brain/Head without Cont IMPRESSION: Chronic involutional and white matter changes. No evidence of acute intracranial abnormality. N.B. : The above Results were Read Back by Charbel Mera MD to Dr. King Lambert MD, and understanding confirmed on 02/05/2023 22:44:12 (ET). Electronically Signed: Charbel Mera MD at 22:36 EDT ,
--- NOTE | 2023-02-05 22:20 | EDS_ITS ---
HPI History of Present Illness Chief Complaint: Neuro S/Sx Informant: patient Onset/Context/Timing Onset: Hours (1) Context: Sudden Onset Timing: Continuous Narrative Narrative: Patient was at home and suddenly felt very poorly, with weakness on her right side and slurred speech which is all new for her, 911/EMS was called, they called a prehospital stroke alert due to lethargy weakness on the right side and slurred speech. Coming from home, recently it was at [facility] assisted living and discharged back home. She is on no anticoagulants. She states she has a headache she may have passed out she is not sure, she does not know if she hit her head or not, but she does not feel like she did. EMS states she fell 3 times in the last hour. Patient is a very poor historian states she does not know, but the last known well was approximately 2100 according to EMS and patient's best estimate. Further history obtained later, patient states she went to sleep at 2000, and woke up on the floor at 2100, when she tried to get up she was off balance, and then EMS was called. Has a history of a stroke that was ischemic August of this year admitted here, residual mild deficits in the left side according to the patient. [facility] Medical History CVA (cerebral vascular accident) Diabetes Hypercholesterolemia Psoriasis Home Medications albuterol sulfate 90 mcg/actuation aerosol inhaler 90 inh inhalation Q4H PRN PRN Wheezing 09/03/22 [History Last Taken Unknown] atorvastatin 80 mg tablet 80 mg PO QHS 09/03/22 [History Last Taken Unknown] mmadocuoja-sjiwmecnyqrmb-ldhhcpyj 50 mg-325 mg-40 mg tablet 1 tab PO Q4H PRN Headache 09/03/22 [History Last Taken Unknown] carbamazepine 200 mg tablet,extended release,12 hr 200 mg PO BID 09/03/22 [History Last Taken Unknown] diclofenac sodium 75 mg tablet,delayed release 75 mg PO BID 09/03/22 [History Last Taken Unknown] docusate sodium 100 mg capsule 100 mg PO BID 09/03/22 [History Last Taken Unknown] duloxetine 60 mg capsule,delayed release 60 mg PO BID 09/03/22 [History Last Taken Unknown] ergocalciferol (vitamin D2) 1,250 mcg (50,000 unit) capsule 50,000 unit PO QWEEK Check with primary doctor 09/03/22 [History Last Taken Unknown] flash glucose scanning reader (FreeStyle Es 2 [place]) 09/03/22 [History Last Taken Unknown] flash glucose sensor (FreeStyle Es 2 Sensor kit) 09/03/22 [History Last Taken Unknown] fluticasone propionate 50 mcg/actuation nasal spray,suspension 1 spray intranasal DAILY PRN Check with primary doctor 09/03/22 [History Last Taken Unknown] furosemide 40 mg tablet 40 mg PO DAILY Check with primary doctor 09/03/22 [History Last Taken Unknown] gabapentin 100 mg capsule 100 mg PO BID 09/03/22 [History Last Taken Unknown] gabapentin 800 mg tablet 800 mg PO QHS 09/03/22 [History Last Taken Unknown] glipizide 5 mg tablet 5 mg PO BID Check with primary doctor 09/03/22 [History Last Taken Unknown] glucagon 1 mg injection kit mg Check with primary doctor 09/03/22 [History Last Taken Unknown] hydroxyzine HCl 25 mg tablet 50 mg PO QHS PRN sleep 09/03/22 [History Last Taken Unknown] insulin glargine 100 unit/mL subcutaneous solution (Lantus U-100 Insulin) 22 unit subcut BID Check with primary doctor 09/03/22 [History Last Taken Unknown] insulin lispro 100 unit/mL subcutaneous solution See Protocol subcut ACHS Check with primary doctor 09/03/22 [History Last Taken Unknown] insulin syr/ndl U100 half shirley 0.5 mL 31 gauge x 5/16 (Droplet Insulin Syringe (half unit)) 09/03/22 [History Last Taken Unknown] ipratropium 0.5 mg-albuterol 3 mg (2.5 mg base)/3 mL nebulization soln 3 ml inhalation Q6H PRN sob 09/03/22 [History Last Taken Unknown] lorazepam 0.5 mg tablet 0.5 mg PO QHS PRN anxietty 09/03/22 [History Last Taken Unknown] meclizine 25 mg tablet 25 mg PO BID 09/03/22 [History Last Taken Unknown] melatonin 12 mg tablet 12 mg PO QHS 09/03/22 [History Last Taken Unknown] naratriptan 2.5 mg tablet (Amerge) 2.5 mg PO Q4H PRN migraines 09/03/22 [History Last Taken Unknown] omeprazole 40 mg capsule,delayed release 40 mg PO DAILY 09/03/22 [History Last Taken Unknown] potassium chloride 20 mEq tablet,extended release(part/cryst) 20 meq PO DAILY 09/03/22 [History Last Taken Unknown] promethazine 25 mg tablet 25 mg PO Q6H PRN PRN Nausea 09/03/22 [History Last Taken Unknown] tizanidine 2 mg tablet 4 mg PO BID 09/03/22 [History Last Taken Unknown] topiramate 100 mg tablet 200 mg PO BID 09/03/22 [History Last Taken Unknown] promethazine 25 mg tablet 25 mg PO Q6H PRN PRN Nausea #12 TABLETS 11/08/22 [Rx Last Taken Unknown] midodrine 5 mg tablet 5 mg PO TID 02/05/23 [History Last Taken Unknown] Allergy/AdvReac Type Severity Reaction Status Date / Time latex Allergy Rash Verified 02/05/23 22:25 levofloxacin [From Levaquin] Allergy Hives Verified 02/05/23 22:25 ondansetron [From Zofran] Allergy Hives Verified 02/05/23 22:25 nalbuphine [From Nubain] AdvReac Other Verified 02/05/23 22:25 Family History Father Cancer Mother Cancer Surgical History Hx of cholecystectomy Hx of tonsillectomy Hx of tubal ligation Social History Smoking Status: Former smoker ROS ROS ED Review of Systems ROS Unobtainable: due to mental status Cardiovascular Cardiovascular: Denies chest pain Respiratory/Chest Respiratory/Chest: Denies dyspnea Gastrointestinal Gastrointestinal: Denies abdominal pain or nausea Genitourinary Genitourinary ED: Reports dysuria Musculoskeletal Musculoskeletal: Denies back pain or neck pain Neurologic Neurologic: Reports confusion, headache(s) and weakness EXAM Physical Exam Const Vital Signs: 02/05/23 22:19 02/05/23 22:17 02/05/23 22:17 Temperature 97.8 F Temperature Source Temporal Pulse Rate 52 L 55 L Respiratory Rate 18 17 Blood Pressure 85/55 L 85/55 L Blood Pressure Mean 65 65 Pulse Ox 95 95 95 Oxygen Delivery Method Room Air Room Air Room Air 02/05/23 22:19 02/05/23 22:17 02/05/23 22:59 Temperature 97.8 F Temperature Source Temporal Pulse Rate 55 L 56 L Respiratory Rate 17 16 Blood Pressure 85/55 L 88/57 L Blood Pressure Mean 65 67 Pulse Ox 95 95 94 Oxygen Delivery Method Room Air Room Air Room Air 02/05/23 22:49 02/05/23 23:17 02/06/23 00:00 Temperature Temperature Source Pulse Rate 55 L 54 L 51 L Respiratory Rate 17 16 18 Blood Pressure 85/55 L 110/69 105/71 Blood Pressure Mean 65 82 82 Pulse Ox 95 96 95 Oxygen Delivery Method Room Air Room Air Room Air 02/06/23 00:30 02/06/23 01:00 02/06/23 00:00 Temperature Temperature Source Pulse Rate 52 L 53 L 55 L Respiratory Rate 15 16 Blood Pressure 118/77 106/72 Blood Pressure Mean 90 83 Pulse Ox 94 95 Oxygen Delivery Method Room Air Room Air 02/06/23 01:00 Temperature Temperature Source Pulse Rate 50 L Respiratory Rate Blood Pressure Blood Pressure Mean Pulse Ox Oxygen Delivery Method Positive well nourished, well developed and obese General Appearance ED: well developed and NAD Nutritional Appearance: obese HEENT Reports moist mucous membranes normocephalic and atraumatic Eyes PERRL and EOMs intact bilaterally Neck full ROM and supple Resp normal respiratory effort and clear to auscultation bilaterally Cardio regular rate, regular rhythm and no murmurs Rate: Negative for tachycardic GI non-tender and non-distended Auscultation: normoactive bowel sounds Palpation: soft Back/Spine no CVA tenderness General Back: other FROM Extremity normal to inspection General Extremety ED: Negative for edema, pulses abnormal or tenderness General Extremity: Negative for edema or pulses abnormal Neuro Neuro Narrative: Somnolent easily alerts to voice. Follows commands. A little confused. GCS 13. Skin no rashes or lesions noted and no wounds NIHSS NIHSS Initial: 1a Level of Consciousness: 1 1b LOC Questions (Score 2 if aphasic/stupor): 0 1c LOC Commands (Only score 1st attempt): 0 2 Best Gaze (If aphasic, use reflexive mvmts.): 0 3 Visual: 0 4 Facial Palsy: 1 5 Motor Arm Right (UN = amputation/fusion): 0 5 Motor Arm Left: 0 6 Motor Leg Right: 3 6 Motor Leg Left: 2 7 Limb ataxia (Only + if out of proportion): 0 8 Sensory (Aphasia/stupor=0 or 1, coma=2): 1 9 Best Language: 1 10 Dysarthria (mute, coma=2, intubated=UN): 1 11 Extinction and Inattention (only scored if +): 0 Total Score: 10 Follow up: 1a Level of Consciousness: 0 1b LOC Questions (Score 2 if aphasic/stupor): 0 1c LOC Commands (Only score 1st attempt): 0 2 Best Gaze (If aphasic, use reflexive mvmts.): 0 3 Visual: 0 4 Facial Palsy: 0 5 Motor Arm Right (UN = amputation/fusion): 0 5 Motor Arm Left: 0 6 Motor Leg Right: 3 6 Motor Leg Left: 2 7 Limb ataxia (Only + if out of proportion): 0 8 Sensory (Aphasia/stupor=0 or 1, coma=2): 1 9 Best Language: 0 10 Dysarthria (mute, coma=2, intubated=UN): 0 11 Extinction and Inattention (only scored if +): 0 Total Score: 6 w/ Stroke Neurologist, about 5min after 2nd: 1a Level of Consciousness: 0 1b LOC Questions (Score 2 if aphasic/stupor): 0 1c LOC Commands (Only score 1st attempt): 0 2 Best Gaze (If aphasic, use reflexive mvmts.): 0 3 Visual: 0 4 Facial Palsy: 0 5 Motor Arm Right (UN = amputation/fusion): 0 5 Motor Arm Left: 0 6 Motor Leg Right: 0 6 Motor Leg Left: 0 7 Limb ataxia (Only + if out of proportion): 0 8 Sensory (Aphasia/stupor=0 or 1, coma=2): 1 10 Dysarthria (mute, coma=2, intubated=UN): 0 11 Extinction and Inattention (only scored if +): 0 Total Score: 1 Sepsis Attestation Sepsis Attestation: Sepsis Ruled Out Fluid Resuscitation Fluid Resuscitation ordered: Lesser volume fluid bolus ordered Amount of fluid ordered: 500 Reason for lesser fluid bolus:: BP Responded to a lesser volume MDM MDM MDM Narrative Medical decision making narrative: Patient had sent directly to CT, noncontrast CT negative, reviewed the images and report which I agree with, no hemorrhage. I then reevaluated the patient when she got back to the room, her NIH was significantly lower, see below. Discussed and reevaluated with stroke neurologist, lower still almost resolved, given that, no thrombolytic indicated and stroke neurology in agreement. Given her low blood pressure, I asked her about infectious symptoms she indicates that she has had dysuria for the last 3 days and it muro to urinate. Therefore, added the rest of a septic work-up, given half liter of IV fluids empirically while getting more testing. With that, her blood pressure is up to 110/69 and now the rest of her vital signs are normal. Took a while for her urine to return, but it is showing signs of infection. The rest of her labs are unremarkable including lactate, except for mild elevation of BUN and creatinine. She did not have another episode of hypotension. Chest x-ray 1 view on my interpretation shows no signs of acute pneumonia. CTA returned negative for LVO, it took a long time for radiology to return this result as compared with the regular CT. Plan is for admission. Rocephin started. Discussed with hospitalist. Upon review of prior inpatient record earlier this year patient had an MRI that showed a couple of lesions that were of unknown significance and the patient ended up being transferred to [facility]. I discussed this with Dr. Lomeli of the stroke neurologist on-call, she states right now with the information available, there is no indication to transfer the patient to [facility] especially since there is no LVO and she agrees that the patient probably had a TIA due to transient hypotension which I suspect was due to her urinary tract infection, dehydration, or combination of the 2. She states she recommends obtaining an MRI still, to rule out stroke, and they are happy to take the patient in transfer for any other concerns but she does not recommend transfer based on the available information at this time. History & Record Review Additional record(s) reviewed:: Prior inpatient record and Prior outpatient record Lab Data Attestation: I reviewed the patient's lab results. Labs: Laboratory Results - last 24 hr 02/05/23 02/06/23 23:50 00:50 WBC 9.7 RBC 3.86 L Hgb 12.4 Hct 37.8 MCV 97.9 MCH 32.1 H MCHC 32.8 RDW Std Deviation 46.8 H RDW Coeff of He 13.2 Plt Count 271 MPV 10.8 Immature Gran % (Auto) 0.300 Neut % (Auto) 52.4 Lymph % (Auto) 39.4 Luce % (Auto) 6.1 Eos % (Auto) 1.2 Baso % (Auto) 0.6 Absolute Neuts (auto) 5.1 Absolute Lymphs (auto) 3.81 Nucleated RBC % 0 PT 13.2 INR 1.0 APTT 26.5 Sodium 137 Potassium 3.5 Chloride 107 Carbon Dioxide 22.0 Anion Gap 8 BUN 28 H Creatinine 1.18 H Estim Creat Clear Calc 49.84 Est GFR (MDRD) Af Amer 61 Est GFR (MDRD) Non-Af 50 L BUN/Creatinine Ratio 23.7 H Glucose 101 Lactic Acid 1.0 Calcium 8.8 Troponin I High Sens 4 Urine Color Yellow Urine Clarity Clear Urine pH 6.0 Ur Specific [place] 1.010 Urine Protein 15 H Urine Glucose (UA) Normal Urine Ketones Negative Urine Occult Blood 10 H Urine Nitrite Negative Urine Bilirubin Negative Urine Urobilinogen Normal Ur Leukocyte Esterase 500 H Urine RBC 0 SEEN Urine WBC 10-25 SEEN Ur Squamous Epith Cells 0 SEEN Urine Bacteria 3+ Urine Mucus 0 SEEN Radiography Diagnostic Testing: Clinical Impression(s) from Imaging Studies Chest X-Ray 02/05/23 00:10 IMPRESSION: No demonstrated acute cardiopulmonary process. Electronically Signed: Juju Fernandes MD at 1:23 EDT , Brain CT 02/05/23 22:19 IMPRESSION: Chronic involutional and white matter changes. No evidence of acute intracranial abnormality. N.B. : The above Results were Read Back by Shirley Mera MD to Dr. King Lambert MD, and understanding confirmed on 02/05/2023 22:44:12 (ET). Electronically Signed: Shirley Mera MD at 22:36 EDT , Head/Neck CTA 02/06/23 22:19 IMPRESSION: 1. CTA head and neck with no acute arterial occlusive disease or other acute intracranial abnormality. 2. Mild bilateral carotid atherosclerotic disease. 3. Other nonurgent findings within body of report. Electronically Signed: Shirley Mera MD at 1:07 EDT , ADDENDUM: 02/06/23 0115 IMPRESSION: 1. CTA head and neck with no acute arterial occlusive disease or other acute intracranial abnormality. 2. Mild bilateral carotid atherosclerotic disease. 3. Other nonurgent findings within body of report. N.B. : The above Results were Read Back by Shirley Mera MD to King Lambert MD, and understanding confirmed on 02/06/2023 01:08:13 (ET). Electronically Signed: Shirley Mera MD at 1:07 EDT , Rhythm Strip Rhythm Strip: Sinus Rhythm Rate: 60 Ectopy: None EKG Initial EKG: Attestation: I personally reviewed and interpreted this EKG as follows: Interpretation: No Acute Injury Pattern, Sinus Bradycardia and LAFB Prior EKG tracings: available for review Prior: Unchanged Management Discussion w/another healthcare provider: Hospitalist, Landscape H[employer]icult[employer] Instructor and Radiologist (at 2242 for NCCT (delay 4 min due to phone technical difficulties connecting); 02/06 at 0106 for CTA) Stroke Documentation Questions Stroke Team Activated: Yes (prehospital, I met EMS in [place], direct to CT after initial eval) Was Patient considered for Endovascular Intervention?: No-CTA negative, determined not to be an endovascular candidate IV Thrombolytic Administered: No (Due to rapid improvement and nondisabling residual deficits sensation only) Critical Care Time Critical Care Time: Yes Critical care time (excluding procedures): 30-74 minutes (42 min), Including time spent:, Discussing w/Patient &/or Family/Route Supervisor, Discussing w/Consultants, Arranging Admission or Transfer and Performing Direct Patient Care at Bedside Discharge Plan Dx/Rx/DC Orders Clinical Impression: Urinary tract infection, Transient hypotension, Brain TIA Disposition Disposition: Acute Care Hospital [facility]
[2023-02-05 22:49] VITALS: BP 85/55; PULSE 55; RESP 17; O2SAT 95
[2023-02-05 22:59] VITALS: O2SAT 94
[2023-02-05 23:17] VITALS: BP 110/69; PULSE 54; RESP 16; O2SAT 96
[2023-02-06] VITALS (11 sets, daily range): BP systolic 86–130; BP diastolic 41–77; PULSE 40–68; RESP 14–20; TEMP 35.9–36.6; O2SAT 94–100; BMI 33.5; BMI 34.4
--- NOTE | 2023-02-06 00:01 | ED.RN ---
patient very difficult IV start. multiple attempts with ultrasound needed to obtain iv status
[2023-02-06 00:02] LABS: Absolute Lymphocyte Count 3.81 X10^3/uL (0.83-4.51); Absolute Neutrophil Count 5.1 X10^3/uL (2.0-7.7); Basophil# 0.06 X10^3/uL; Basophil% 0.6 % (0-1); Eosinophil# 0.12 X10^3/uL; Eosinophils% 1.2 % (0-5); Hematocrit 37.8 % (37-47); Hemoglobin 12.4 g/dL (12.0-15.0); Lymphocyte # 3.81 X10^3/ul (0.83-4.51); Lymphocyte % 39.4 % (19-41); Mean Corp Hgb Conc 32.8 g/dL (32-36); Mean Corpuscular Hgb 32.1 pg (27.0-32.0); Mean Corpuscular Volume 97.9 fL (81-99); Mean Platelet Vol. 10.8 fl (6.2-12.0); Monocyte# 0.59 X10^3/uL; Monocyte% 6.1 % (0-10); NRBC Flagged by Analyzer 0 % (0-5); Neutrophil # 5.05 X10^3/uL (2.7-7.7); Neutrophil % 52.4 % (47-70); Platelet Count 271 K/mm3 (150-450); RBC Distribution Width CV 13.2 % (11.6-14.6); RBC Distribution Width SD 46.8 fl (35.1-43.9); Red Blood Count 3.86 M/mm3 (4.2-5.4); White Blood Count 9.7 K/mm3 (4.4-11.0)
[2023-02-06 00:19] LABS: Prothrombin Time (Protime)PT. 13.2 SECONDS (11.7-14.9)
[2023-02-06 00:20] LABS: Partial Thromboplast Time 26.5 Seconds (24.1-36.2)
[2023-02-06 00:23] LABS: Anion Gap 8 (5-15); BUN 28 mg/dL (7-18); BUN/Creat Ratio 23.7 RATIO (10-20); Calcium,Total 8.8 mg/dL (8.5-10.1); Chloride 107 mmol/L (98-107); Creatinine, Serum 1.18 mg/dL (0.55-1.02); EST Glomerular Filtration Rate 50 mL/min (>60); Est Glom Filt Rate - Afr Amer 61 mL/min (>60); Estimated Creatinine Clearance 49.84 ml/min; Glucose 101 mg/dL (74-106); Potassium 3.5 mmol/L (3.5-5.1); Sodium Level 137 mmol/L (136-145); Troponin-I HS 4 pg/mL (3.0-54.0)
[2023-02-06 01:00] LABS: Mucous, Urine 0 SEEN /hpf (<or=2+); Red Blood Cells-Urine 0 SEEN /hpf (0-5); Squamous Epithelial Cells - UA 0 SEEN /hpf (5-10)
[2023-02-06 01:04] LABS: Glucose, Dipstick Normal (Normal); Ketone-Dipstick Negative (Negative); Leukocyte Esterase-Dipstick 500 /ul (Negative); Nitrite-Dipstick Negative (Negative); Occult Blood-Urine 10 /ul (Negative); Protein-Dipstick 15 mg/dl (Negative); Urine Bilirubin Dipstick Negative (Negative); Urine Urobilinogen Normal (Normal)
[2023-02-06 01:30] LABS: Color, Urine Yellow (Yellow); Urine Clarity Clear (Clear)
[2023-02-06 01:31] LABS: Bacteria 3+ /hpf (None Seen); White Blood Cells 10-25 SEEN /hpf (0-5)
[2023-02-06] MEDS: Ceftriaxone 1 GM/50 ML BAG IV (02:49)
--- NOTE | 2023-02-06 02:54 | HP.PCM.HOS_ITS ---
HPI - General General Date of Admission: 02/06/23 Date of Service: 02/06/23 Chief Complaint: Slurred speech, R sided weakness, fatigue, malaise, lethargy, encephalopathy. 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 with ongoing persistent mild deficits including left-sided weakness per patient report with MRI brain concerning for prior insult/infarct medulla and MRI cervical spine w/ 1x 0.6 cm abnormal hyperintensity in the middle third posterior midline medulla oblongata with following repeat MRI with IV contrast obtained with similar findings (partially rim-enhancing T1 hypointensity lesion in the middle third of the posterior midline medulla oblongata) as well as nonenhancing T1 hypoint ensity lesion in the left periventricular white matter adjacent to the inferior horn of the left lateral ventricle w/ concern for possible MS plaques versus malignant neoplasm with cystic central necrosis w/ neurology recommendation for MR spectroscopy as well as an LP and IV solumedrol start with transfer to [facility] with incidental + COVID status during her admission also who now presents to the [facility] ED on 02/06/23 with history of last known normal at approximately 8 PM with onset of slurred speech as well as right-sided weakness prompting EMS call with stroke alert initiated. Patient has been feeling poorly and been lethargic recently home as noted from skilled facility with onset of headache as well as lightheadedness and unclear if potentially she may have had a syncopal event and unclear if she hit her head or not but EMS states that upon their evaluation she fell at least 3 times. She reportedly went to bed at 8 PM and awoke on the floor at 2100 and when she attempted to get up she was off balance eventually prompting EMS call. In the ED NIH stroke scale per ED physician initially 10 for level of consciousness, facial palsy, right motor leg, left motor leg, sensory alteration, Best language and dysarthria with follow-up repeat assessment 6 and most recently 1. Neurology stroke scale noted to be 2 upon their evaluation for mild to moderate sensory loss and mild to moderate d ysarthria. Work-up in the ED included T97.8, heart rate 50, BP initially 85/55 with improvement to 106/72 with IV fluid administration however from review of records patient previous blood pressures have been low as well last noted 11/08/2022 BP 99/68 at that time, respiratory rate 17, 95% on room air, CBC with WC 9.7, hemoglobin 12.4, platelet 271 without marked shift, unremarkable coags, BMP with BUN/creatinine 28/1.18, lactic acid 1.4, troponin 4, urinalysis with specific gravity 1.010, occult blood 10, nitrite negative, leukocyte Estrace 500 with urine WBCs 10-25 with 3+ urine bacteria, urine culture pending per ED, blood culture x2 pending per ED, chest x-ray with no acute cardiopulmonary findings, CT brain with chronic involutional and white matter changes with no acute evidence of intracranial abnormality, CTA head and neck with no acute arterial occlusive disease or other acute intracranial abnormality with mild bilateral carotid atherosclerotic disease, EKG with SR without acute evidence of ischemia. Telestroke recommendations for MRI head without contrast, echocardiogram which was recently performed with negative bubble study already in addition to baseline stroke work-up labs. In the ED patient ministered IV fluid bolus 1 L as well as Rocephin 1 g IV x1. Discussed recent complicated stroke admission 09/03 with ED physician and decision to repeat contact [facility] neurology to assure this was reviewed with them which was done and [facility] neurology felt [facility] admission was appropriate and recommended MRI of the brain to be cautious but felt that likely presentation was secondary to transient hypotension because of her acute infectious presentation. FOR[facility]LY [facility], [facility] Medical History Allergic rhinitis Chronic migraine Diabetes mellitus, type 2 Former tobacco use GERD (gastroesophageal reflux disease) History of CVA (cerebrovascular accident) HTN (hypertension) Hypercholesterolemia Obesity Orthostasis Psoriasis Seizure disorder Home Medications albuterol sulfate 90 mcg/actuation aerosol inhaler 90 inh inhalation Q4H PRN PRN Wheezing 09/03/22 [History Last Taken Unknown] atorvastatin 80 mg tablet 80 mg PO QHS 09/03/22 [History Last Taken Unknown] xqwcypfpnd-vosghxyxnzoni-ubugqswg 50 mg-325 mg-40 mg tablet 1 tab PO Q4H PRN Headache 09/03/22 [History Last Taken Unknown] carbamazepine 200 mg tablet,extended release,12 hr 200 mg PO BID 09/03/22 [History Last Taken Unknown] diclofenac sodium 75 mg tablet,delayed release 75 mg PO BID 09/03/22 [History Last Taken Unknown] docusate sodium 100 mg capsule 100 mg PO BID 09/03/22 [History Last Taken Unknown] duloxetine 60 mg capsule,delayed release 60 mg PO BID 09/03/22 [History Last Taken Unknown] ergocalciferol (vitamin D2) 1,250 mcg (50,000 unit) capsule 50,000 unit PO QWEEK Check with primary doctor 09/03/22 [History Last Taken Unknown] flash glucose scanning reader (Fit with FriendsStyle Es 2 Delta) 09/03/22 [History Last Taken Unknown] flash glucose sensor (FreeStyle Es 2 Sensor kit) 09/03/22 [History Last Taken Unknown] fluticasone propionate 50 mcg/actuation nasal spray,suspension 1 spray intranasal DAILY PRN Check with primary doctor 09/03/22 [History Last Taken Unknown] furosemide 40 mg tablet 40 mg PO DAILY Check with primary doctor 09/03/22 [History Last Taken Unknown] gabapentin 100 mg capsule 100 mg PO BID 09/03/22 [History Last Taken Unknown] gabapentin 800 mg tablet 800 mg PO QHS 09/03/22 [History Last Taken Unknown] glipizide 5 mg tablet 5 mg PO BID Check with primary doctor 09/03/22 [History Last Taken Unknown] glucagon 1 mg injection kit mg Check with primary doctor 09/03/22 [History Last Taken Unknown] hydroxyzine HCl 25 mg tablet 50 mg PO QHS PRN sleep 09/03/22 [History Last Taken Unknown] insulin glargine 100 unit/mL subcutaneous solution (Lantus U-100 Insulin) 22 unit subcut BID Check with primary doctor 09/03/22 [History Last Taken Unknown] insulin lispro 100 unit/mL subcutaneous solution See Protocol subcut ACHS Check with primary doctor 09/03/22 [History Last Taken Unknown] insulin syr/ndl U100 half shirley 0.5 mL 31 gauge x 5/16 (Droplet Insulin Syringe (half unit)) 09/03/22 [History Last Taken Unknown] ipratropium 0.5 mg-albuterol 3 mg (2.5 mg base)/3 mL nebulization soln 3 ml inhalation Q6H PRN sob 09/03/22 [History Last Taken Unknown] lorazepam 0.5 mg tablet 0.5 mg PO QHS PRN anxietty 09/03/22 [History Last Taken Unknown] meclizine 25 mg tablet 25 mg PO BID 09/03/22 [History Last Taken Unknown] melatonin 12 mg tablet 12 mg PO QHS 09/03/22 [History Last Taken Unknown] naratriptan 2.5 mg tablet (Amerge) 2.5 mg PO Q4H PRN migraines 09/03/22 [History Last Taken Unknown] omeprazole 40 mg capsule,delayed release 40 mg PO DAILY 09/03/22 [History Last Taken Unknown] potassium chloride 20 mEq tablet,extended release(part/cryst) 20 meq PO DAILY 09/03/22 [History Last Taken Unknown] promethazine 25 mg tablet 25 mg PO Q6H PRN PRN Nausea 09/03/22 [History Last Taken Unknown] tizanidine 2 mg tablet 4 mg PO BID 09/03/22 [History Last Taken Unknown] topiramate 100 mg tablet 200 mg PO BID 09/03/22 [History Last Taken Unknown] promethazine 25 mg tablet 25 mg PO Q6H PRN PRN Nausea #12 TABLETS 11/08/22 [Rx Last Taken Unknown] midodrine 5 mg tablet 5 mg PO TID 02/05/23 [History Last Taken Unknown] Allergy/AdvReac Type Severity Reaction Status Date / Time latex Allergy Rash Verified 02/05/23 22:25 levofloxacin [From Levaquin] Allergy Hives Verified 02/05/23 22:25 ondansetron [From Zofran] Allergy Hives Verified 02/05/23 22:25 nalbuphine [From Nubain] AdvReac Other Verified 02/05/23 22:25 Family History Father Cancer Mother Cancer Surgical History Hx of cholecystectomy Hx of tonsillectomy Hx of tubal ligation Social History (Updated 02/06/23 @ 02:[address] Tia Sneed MD) household members: none housing: other details: Recent transition from Assisted Living to home. Smoking Status: Former smoker alcohol intake: never substance use type: does not use ROS Review of Systems ROS Unobtainable: due to encephalopathy Vital Signs Vital Signs Vital Signs: 02/05/23 22:19 02/05/23 22:17 02/05/23 22:17 Temperature 97.8 F Temperature Source Temporal Pulse Rate 52 L 55 L Respiratory Rate 18 17 Blood Pressure 85/55 L 85/55 L Blood Pressure Mean 65 65 Pulse Ox 95 95 95 Oxygen Delivery Method Room Air Room Air Room Air 02/05/23 22:19 02/05/23 22:17 02/05/23 22:59 Temperature 97.8 F Temperature Source Temporal Pulse Rate 55 L 56 L Respiratory Rate 17 16 Blood Pressure 85/55 L 88/57 L Blood Pressure Mean 65 67 Pulse Ox 95 95 94 Oxygen Delivery Method Room Air Room Air Room Air 02/05/23 22:49 02/05/23 23:17 02/06/23 00:00 Temperature Temperature Source Pulse Rate 55 L 54 L 51 L Respiratory Rate 17 16 18 Blood Pressure 85/55 L 110/69 105/71 Blood Pressure Mean 65 82 82 Pulse Ox 95 96 95 Oxygen Delivery Method Room Air Room Air Room Air 02/06/23 00:30 02/06/23 01:00 02/06/23 00:00 Temperature Temperature Source Pulse Rate 52 L 53 L 55 L Respiratory Rate 15 16 Blood Pressure 118/77 106/72 Blood Pressure Mean 90 83 Pulse Ox 94 95 Oxygen Delivery Method Room Air Room Air 02/06/23 01:00 02/06/23 02:51 02/06/23 02:51 Temperature 97.9 F 97.9 F Temperature Source Temporal Temporal Pulse Rate 50 L 50 L 50 L Respiratory Rate 18 18 Blood Pressure 100/67 100/67 Blood Pressure Mean 78 78 Pulse Ox 94 94 Oxygen Delivery Method Room Air Room Air Weight Weight: 213 lb 6.519 oz Body Mass Index (BMI) 34.4 Physical Exam Narrative Physical Examination: General: Awakens to stimuli but extremely encephalopathic, lethargic, intermittently alert, answering some orientation questions appropriately but falls back asleep, will follow commands but again falls back asleep very quickly and is reporting a posterior headache with sound and light sensitivity but does not appear uncomfortable at all and falls asleep as noted throughout exam. Skin: Normal color, normal turgor, no icterus, no cyanosis. HEENT: AT/NC, EOMI, PERRLA although pupils seem notably dilated and sluggish, mildly dry MM, edentulous, no carotid bruits or JVD noted. Lungs: Mildly diminished, greater bases, decreased effort secondary to significant lethargy/sedation, no rales, ronchi or wheezing. Heart: Mildly bradycardic with regular rhythm; no gallop, rub audible. Abdomen: Soft, NTTP, ND, distant normal BS, no HSM. Extremities: No cyanosis, clubbing, or edema. Neurological: Awakens to stimuli but extremely encephalopathic, lethargic, intermittently alert, answering some orientation questions appropriately but falls back asleep, will follow commands but again falls back asleep very quickly and is reporting a posterior headache with sound and light sensitivity but does not appear uncomfortable at all and falls asleep as noted throughout exam, cognitive function not baseline intact; pupils equally reactive to light and accommodation but sluggish response, cranial nerves appear grossly normal but difficult given encephalopathic and lethargic, moving all extremities spontaneously, difficult to assess focal deficits at this time but does have chronic left-sided debility following prior CVA, sensation alterations ongoing but suspect this is chronic, equivocal Babinski, strength severely globally decreased secondary to acute presentation and suspect sedate of medications in addition. Psychiatric: Affect appears flat, lethargic, no acute evidence of depressive or anxiety feelings but does have underlying history. Results Lab / Micro Data 02/05/23 23:50 02/05/23 23:50 Labs: Laboratory Results - last 24 hr 02/05/23 23:50: WBC 9.7, RBC 3.86 L, Hgb 12.4, Hct 37.8, MCV 97.9, MCH 32.1 H, MCHC 32.8, RDW Std Deviation 46.8 H, RDW Coeff of He 13.2, Plt Count 271, MPV 10.8, Immature Gran % (Auto) 0.300, Neut % (Auto) 52.4, Lymph % (Auto) 39.4, [place] % (Auto) 6.1, Eos % (Auto) 1.2, Baso % (Auto) 0.6, Absolute Neuts (auto) 5.1, Absolute Lymphs (auto) 3.81, Nucleated RBC % 0, PT 13.2, INR 1.0, APTT 26.5, Sodium 137, Potassium 3.5, Chloride 107, Carbon Dioxide 22.0, Anion Gap 8, BUN 28 H, Creatinine 1.18 H, Estim Creat Clear Calc 49.84, Est GFR (MDRD) Af Amer 61, Est GFR (MDRD) Non-Af 50 L, BUN/Creatinine Ratio 23.7 H, Glucose 101, Lactic Acid 1.0, Calcium 8.8, Troponin I High Sens 4 02/06/23 00:50: Urine Color Yellow, Urine Clarity Clear, Urine pH 6.0, Ur Specific [place] 1.010, Urine Protein 15 H, Urine Glucose (UA) Normal, Urine Ketones Negative, Urine Occult Blood 10 H, Urine Nitrite Negative, Urine Bilirubin Negative, Urine Urobilinogen Normal, Ur Leukocyte Esterase 500 H, Urine RBC 0 SEEN, Urine WBC 10-25 SEEN, Ur Squamous Epith Cells 0 SEEN, Urine Bacteria 3+, Urine Mucus 0 SEEN Rhythm Strip Rhythm Strip: Sinus Rhythm Rate: 60 Ectopy: None Radiology Impression Chest X-Ray 02/05/23 00:10 IMPRESSION: No demonstrated acute cardiopulmonary process. Electronically Signed: Juju Fernandes MD at 1:23 EDT , Brain CT 02/05/23 22:19 IMPRESSION: Chronic involutional and white matter changes. No evidence of acute intracranial abnormality. N.B. : The above Results were Read Back by Shirley Mera MD to Dr. King Lambert MD, and understanding confirmed on 02/05/2023 22:44:12 (ET). Electronically Signed: Shirley Mera MD at 22:36 EDT , Head/Neck CTA 02/06/23 22:19 IMPRESSION: 1. CTA head and neck with no acute arterial occlusive disease or other acute intracranial abnormality. 2. Mild bilateral carotid atherosclerotic disease. 3. Other nonurgent findings within body of report. Electronically Signed: Shirley Mera MD at 1:07 EDT , ADDENDUM: 02/06/23 0115 IMPRESSION: 1. CTA head and neck with no acute arterial occlusive disease or other acute intracranial abnormality. 2. Mild bilateral carotid atherosclerotic disease. 3. Other nonurgent findings within body of report. N.B. : The above Results were Read Back by Shirley Mera MD to King Lambert MD, and understanding confirmed on 02/06/2023 01:08:13 (ET). Electronically Signed: Shirley Mera MD at 1:07 EDT , Assessment & Plan Assessment/Plan (1) Brain TIA: (2) Urinary tract infection: (3) Transient hypotension: PLAN: Plan The patient is a 57 y/o F w/ PMHx: Seizure disorder, Obesity, HTN, HLD, Orthost asis on midodrine, Psoriasis, Diabetes mellitus type II w/ neuropathy, Anxiety and Depression, Chronic migraines, Allergic rhinitis, Former tobacco use, recent discharge from [facility] and transition back to home, 08/2022 admission for complicated Acute Midbrain CVA presentation with ongoing persistent mild deficits including left-sided weakness and + COVID status at that time w/ eventual transfer to [facility] for Neurology in person evaluation who now presents to the [facility] ED on 02/06/23 with history of last known normal at approximately 8 PM with onset of slurred speech as well as right-sided weakness prompting EMS call with stroke alert initiated. #1. Aphasia, right-sided weakness, gait debility concerning for CVA/TIA complicated by acute infection and associated hypotension #2, complicated by recent complex Acute Midbrain CVA/possible MS plaques versus malignant neoplasm with cystic central necrosis admission 08/2022: Will admit to PCU, will obtain MRI Brain and Cervical Spine with and without contrast to be cautious given prior admission, will defer repeat ECHO as already obtained during 08/2022 CVA work-up admission, PT/OT/Speech/Nutrition evaluation per protocol. Will allow permissive HTN, maintain on asa/plavix pending evaluation with de-escalation if appropriate, continue high dose home statin w/ AM FLP, fall precautions. Mag, TSH, FLP, HgbA1c requested. Maintain on fall and aspiration precautions. Once work-up obtained low threshold to obtain Neurology consultation given complicated prior presentation. #2. Acute Encephalopathy and Hypotension secondary to Acute Complicated Urinary Tract Infection, confounded by #1: UA upon ED evaluation remarkable, pending UCx, continue IVFs, monitor I/Os, continue IV Rocephin w/ transition as able pending sensitivities and speciation. Bld cx x 2 obtained in the ED. #3. Diabetes mellitus type II with chronic neuropathy: Hold oral home regimen, continue home insulin regimen, ADA diet, accu checks w/ ISS, continue patient home chronic gabapentin regimen. #4. Anxiety and depression: We will continue patient home low-dose Ativan with hold parameters given lethargy upon current presentation with infection, cont inue patient home duloxetine regimen. #5. Chronic migraines: We will continue patient home chronic topiramate regimen, given his noted potential stroke evaluation we will hold off on other agents at this time. #6. Chronic orthostasis: We will continue patient home chronic midodrine regimen. #7. Hypertension: We will maintain permissive hypertension given questionable stroke although certainly could be symptomatic secondary to transient hypotension with acute infection, will continue hydration as noted, reassess for re-addition of patient home regimen once appropriate. #8. Hyperlipidemia: Continue home statin regimen. AM FLP. #9. Allergic rhinitis: We will continue patient home fluticasone regimen. #10. GERD: We will continue patient on PPI. #11. Obesity: Weight loss and lifestyle changes encouraged. #12. Former tobacco use: Encourage continued tobacco cessation. #13. Seizure disorder: We will continue patient home Topamax and Tegretol home regimen. #14. DVT prophylaxis: Lovenox. Charges/Coding Visit Charges Inpatient E&M: 63029 Init Hosp L3
[2023-02-06 03:20] LABS: Magnesium 2.3 mg/dL (1.6-2.6)
[2023-02-06] MEDS: Contrast Allergy Safety Check IV (05:06)
[2023-02-06] MEDS: 0.9% Normal Saline 1,000 ML 999 ML IV (05:28)
[2023-02-06] MEDS: Midodrine HCl 5 MG Tablet PO (05:31)
[2023-02-06] MEDS: Acetaminophen/Butalbital/Caffe 1 Tablet PO ×2 (05:53→20:51)
[2023-02-06] MEDS: LORazepam 0.5 MG Tablet PO ×2 (05:53→20:51)
[2023-02-06] MEDS: Acetaminophen 325 MG Tablet 650 MG PO (05:53)
[2023-02-06] MEDS: Midodrine HCl 5 MG Tablet 10 MG PO ×3 (05:55→20:50)
--- NOTE | 2023-02-06 05:55 | MRI_ITS ---
STUDY: MRI CERVICAL SPINE WITH AND WITHOUT CONTRAST REASON FOR EXAM: Female, 57 years old. CVA TECHNIQUE: Standardized fat and water weighted pulse sequences were obtained in the sagittal and axial following administration of clariscan 20ml IV. COMPARISON: 09/04/2022 FINDINGS: Normal foramen magnum and brainstem-cervical cord junction. Normal craniovertebral junction. Normal anterior atlantoaxial articulation. Normal odontoid process. There is straightening of the normal cervical lordosis. Normal vertebral bodies and posterior osseous elements. C2-3: Normal endplates. Normal disc height, signal and morphology. Normal central canal and intervertebral neural foramina. C3-4: Normal endplates. Normal disc height, signal and morphology. Normal central canal and intervertebral neural foramina. C4-5: No change in a mild broad disc osteophyte complex produces mild spinal stenosis but no neural foraminal stenosis. C5-6: No change in the moderate broad disc osteophyte complex which produces moderate spinal stenosis with abutment of the central spinal cord and mild bilateral neural foraminal stenosis. C6-7: Normal endplates. Normal disc height, signal and morphology. Normal central canal and intervertebral neural foramina. C7-T1: Normal endplates. Normal disc height, signal and morphology. Normal central canal and intervertebral neural foramina. There is no change in 1 cm oval hyperintensity of the brainstem at the level of the inferior cerebellar peduncles previously attributed to demyelinating disease (multiple sclerosis). This area does not demonstrate contrast enhancement or mass effect. Normal visualized soft tissue structures. MRI/Spine Cervical W/WO Contrast IMPRESSION: 1. Continued focal hyperintensity of the brainstem but no contrast enhancement. 2. No change in the mild degenerative disc disease with straightening of the normal lordotic curvature. Electronically Signed: Rylan Kimbrough MD at 15:02 EDT ,
--- NOTE | 2023-02-06 05:55 | MRI_ITS ---
STUDY: MRI BRAIN WITH AND WITHOUT CONTRAST REASON FOR EXAM: Female, 57 years old. CVA TECHNIQUE: Standardized multiplanar fat and water weighted pulse sequences were obtained. IV 20ML CLARISCAN was administered for the contrast portion of the examination. COMPARISON: 09/05/2022, CT earlier today FINDINGS: There is mild cerebral atrophy with widening of the extra-axial spaces and ventricular dilatation. There are a limited number of small white matter hyperintensities, distributed throughout the deep white matter tracts of the cerebral hemispheres, consistent with mild chronic white matter ischemic changes. There is no evidence for recent intracranial ischemia or other cause of cytotoxic edema on diffusion weighted imaging (DWI). Normal T2* images of the brain without demonstrated susceptibility artifact. There is no demonstrated hemosiderin stain. Normal bilateral basal ganglia. Normal thalami. There is no extra-axial fluid accumulation. Normal flow voids within the major intracranial circulation suggesting patency by spin echo criteria. Normal venous enhancement. There is no enhancing intra-axial or extra-axial abnormality. Normal sella turcica, pituitary gland, infundibular stalk, optic chiasm and hypothalamus. Normal tectal plate and pineal gland. Normal midbrain, jesenia and medulla. Normal cerebellum. Normal basal cisterns. Normal bilateral temporal bones. Normal bilateral internal auditory canals. No demonstrated orbital abnormality, within the constraints of a routine brain study. Normal visualized paranasal sinuses. Normal calvarium and skull base. Normal visualized soft tissue structures. Normal visualized upper cervical spine. MRI/Brain W/WO Contrast IMPRESSION: Involutional changes of the brain, as described above. No acute infarct. Electronically Signed: Rylan Kimbrough MD at 14:54 EDT ,
[2023-02-06 06:31] LABS: Bedside Glucose 75 mg/dL (74-106)
[2023-02-06 07:55] LABS: Absolute Lymphocyte Count 3.34 X10^3/uL (0.83-4.51); Absolute Neutrophil Count 6.3 X10^3/uL (2.0-7.7); Basophil# 0.06 X10^3/uL; Basophil% 0.6 % (0-1); Eosinophil# 0.15 X10^3/uL; Eosinophils% 1.4 % (0-5); Hematocrit 36.3 % (37-47); Hemoglobin 12.1 g/dL (12.0-15.0); Lymphocyte # 3.34 X10^3/ul (0.83-4.51); Lymphocyte % 31.6 % (19-41); Mean Corp Hgb Conc 33.3 g/dL (32-36); Mean Corpuscular Hgb 32.1 pg (27.0-32.0); Mean Corpuscular Volume 96.3 fL (81-99); Mean Platelet Vol. 10.8 fl (6.2-12.0); Monocyte# 0.73 X10^3/uL; Monocyte% 6.9 % (0-10); NRBC Flagged by Analyzer 0 % (0-5); Neutrophil # 6.25 X10^3/uL (2.7-7.7); Neutrophil % 59.1 % (47-70); Platelet Count 283 K/mm3 (150-450); RBC Distribution Width CV 13.2 % (11.6-14.6); RBC Distribution Width SD 46.3 fl (35.1-43.9); Red Blood Count 3.77 M/mm3 (4.2-5.4); White Blood Count 10.6 K/mm3 (4.4-11.0)
[2023-02-06] MEDS: proCHLORPERazine 10 MG/2 ML Vial 5 MG IV ×2 (08:33→21:29)
[2023-02-06] MEDS: 0.9% Saline Lock 10 ML Syringe IV (08:36)
[2023-02-06 08:40] LABS: AST(SGOT) 18 U/L (15-37); Alanine Aminotransfer ALT/SGPT 40 U/L (13-56); Albumin, Serum 3.5 g/dL (3.2-5.0); Alkaline Phosphatase 127 U/L (45-117); Anion Gap 6 (5-15); BUN 24 mg/dL (7-18); BUN/Creat Ratio 24.7 RATIO (10-20); Calcium,Total 8.4 mg/dL (8.5-10.1); Chloride 109 mmol/L (98-107); Creatinine, Serum 0.97 mg/dL (0.55-1.02); EST Glomerular Filtration Rate 63 mL/min (>60); Est Glom Filt Rate - Afr Amer 76 mL/min (>60); Estimated Creatinine Clearance 60.62 ml/min; Globulin 3.4 g/dL (2.2-4.2); Glucose 113 mg/dL (74-106); Potassium 3.8 mmol/L (3.5-5.1); Protein, Total 6.9 g/dL (6.4-8.2); Sodium Level 136 mmol/L (136-145); Thyroid Stim Hormone (TSH) 2.37 uIU/mL (0.358-3.74)
[2023-02-06 09:37] LABS: Hemoglobin A1c 7.3 % (3.8-5.6)
[2023-02-06] MEDS: LORazepam 1 MG Tablet PO (09:48)
--- NOTE | 2023-02-06 12:19 | PCM.PN.HOSP ---
Reason for Visit Reason for Visit: Diagnoses Transient cerebral ischemic attack, unspecified (02/06/23) Hypotension, unspecified (02/06/23) Urinary tract infection, site not specified (02/06/23) Objective Data Objective Data Vital Signs: Vital Signs Temp Pulse Resp BP Pulse Ox O2 Del Method 96.9 F L 58 L 16 130/64 H 100 Room Air 02/06/23 08:20 02/06/23 08:20 02/06/23 08:20 02/06/23 08:20 02/06/23 08:20 02/06/23 08:20 Oxygen Delivery Method Room Air Weight: 207 lb 10.807 oz Body Mass Index (BMI) 33.5 Intake & Output: Intake and Output for Last 24 Hours 02/04/23 02/05/23 02/06/23 23:59 23:59 23:59 Intake Total 1550 / 1550 Output Total 0 / 0 Balance 1550 / 1550 Lab / Micro Data 02/06/23 07:18 02/06/23 07:18 Labs: Laboratory Results - last 24 hr 02/05/23 23:50: WBC 9.7, RBC 3.86 L, Hgb 12.4, Hct 37.8, MCV 97.9, MCH 32.1 H, MCHC 32.8, RDW Std Deviation 46.8 H, RDW Coeff of He 13.2, Plt Count 271, MPV 10.8, Immature Gran % (Auto) 0.300, Neut % (Auto) 52.4, Lymph % (Auto) 39.4, Adams % (Auto) 6.1, Eos % (Auto) 1.2, Baso % (Auto) 0.6, Absolute Neuts (auto) 5.1, Absolute Lymphs (auto) 3.81, Nucleated RBC % 0, PT 13.2, INR 1.0, APTT 26.5, Sodium 137, Potassium 3.5, Chloride 107, Carbon Dioxide 22.0, Anion Gap 8, BUN 28 H, Creatinine 1.18 H, Estim Creat Clear Calc 49.84, Est GFR (MDRD) Af Amer 61, Est GFR (MDRD) Non-Af 50 L, BUN/Creatinine Ratio 23.7 H, Glucose 101, Lactic Acid 1.0, Calcium 8.8, Troponin I High Sens 4 02/05/23 23:58: Magnesium 2.3 02/06/23 00:50: Urine Color Yellow, Urine Clarity Clear, Urine pH 6.0, Ur Specific [place] 1.010, Urine Protein 15 H, Urine Glucose (UA) Normal, Urine Ketones Negative, Urine Occult Blood 10 H, Urine Nitrite Negative, Urine Bilirubin Negative, Urine Urobilinogen Normal, Ur Leukocyte Esterase 500 H, Urine RBC 0 SEEN, Urine WBC 10-25 SEEN, Ur Squamous Epith Cells 0 SEEN, Urine Bacteria 3+, Urine Mucus 0 SEEN 02/06/23 06:03: POC Glucose 75 02/06/23 07:18: WBC 10.6, RBC 3.77 L, Hgb 12.1, Hct 36.3 L, MCV 96.3, MCH 32.1 H, MCHC 33.3, RDW Std Deviation 46.3 H, RDW Coeff of He 13.2, Plt Count 283, MPV 10.8, Immature Gran % (Auto) 0.400, Neut % (Auto) 59.1, Lymph % (Auto) 31.6, Adams % (Auto) 6.9, Eos % (Auto) 1.4, Baso % (Auto) 0.6, Absolute Neuts (auto) 6.3, Absolute Lymphs (auto) 3.34, Nucleated RBC % 0, Sodium 136, Potassium 3.8, Chloride 109 H, Carbon Dioxide 21.0, Anion Gap 6, BUN 24 H, Creatinine 0.97, Estim Creat Clear Calc 60.62, Est GFR (MDRD) Af Amer 76, Est GFR (MDRD) Non-Af 63, BUN/Creatinine Ratio 24.7 H, Glucose 113 H, Hemoglobin A1c 7.3 H, Calcium 8.4 L, Total Bilirubin 0.20, AST 18, ALT 40, Alkaline Phosphatase 127 H, Total Protein 6.9, Albumin 3.5, Globulin 3.4, Albumin/Globulin Ratio 1.0, TSH 2.37 Radiography Diagnostic Testing: Radiology Impression Chest X-Ray 02/05/23 00:10 IMPRESSION: No demonstrated acute cardiopulmonary process. Electronically Signed: Juju Fernandes MD at 1:23 EDT , Brain CT 02/05/23 22:19 IMPRESSION: Chronic involutional and white matter changes. No evidence of acute intracranial abnormality. N.B. : The above Results were Read Back by Charbel Mera MD to Dr. King Lambert MD, and understanding confirmed on 02/05/2023 22:44:12 (ET). Electronically Signed: Charbel Mera MD at 22:36 EDT , Head/Neck CTA 02/06/23 22:19 IMPRESSION: 1. CTA head and neck with no acute arterial occlusive disease or other acute intracranial abnormality. 2. Mild bilateral carotid atherosclerotic disease. 3. Other nonurgent findings within body of report. Electronically Signed: Charbel Mera MD at 1:07 EDT , ADDENDUM: 02/06/23 0115 IMPRESSION: 1. CTA head and neck with no acute arterial occlusive disease or other acute intracranial abnormality. 2. Mild bilateral carotid atherosclerotic disease. 3. Other nonurgent findings within body of report. N.B. : The above Results were Read Back by Charbel Mera MD to King Lambert MD, and understanding confirmed on 02/06/2023 01:08:13 (ET). Electronically Signed: Charbel Mera MD at 1:07 EDT , Rhythm Strip Rhythm Strip: Sinus Rhythm Rate: 60 Ectopy: None Assessment & Plan Assessment/Plan (1) Brain TIA: (2) Urinary tract infection: (3) Transient hypotension: PLAN: Plan The patient is a 57 y/o F admitted with weakness on the right side slurred speech all new. Prehospital stroke alert was called. Patient was just discharged from [facility] after 11 days of rehab. #1. Aphasia, right-sided weakness, gait debility with hypotension, exact etiology unclear but acute infarct/CVA ruled out or atypical presentation of migraine: Patient was admitted in August 2022 for dysarthria and left-sided facial numbness and LUE numbness. 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 02/06: MRI brain reported involutional changes but no acute infarct. CTA head and neck no acute arterial occlusive disease or other acute intracranial abnormality. Mild bilateral carotid atherosclerotic disease. C-spine MRI shows continued focal hyperintensity of brainstem but no contrast-enhancement. No change in mild degenerative disc with a straightening of normal lordotic features. This changes were present in previous MRI C-spine August 2022. #2. Acute Encephalopathy and Hypotension secondary to Acute Complicated Urinary Tract Infection: Patient denies burning micturition or acute change. UA shows LE 500, WBC 10-25 cells, 3+ bacteria, negative nitrite. Patient empirically on IV ceftriaxone. Urine culture pending. Patient blood pressure was also on the lower side and heart rate in 50s. She has chronic bradycardia. Orthostatic blood pressure ordered. #3. Diabetes mellitus type II with chronic neuropathy: Patient glucose is normal range in 120s. Lantus insulin dose increased with holding parameter. Patient on Accu-Cheks before meals and its coverage continue patient home chronic gabapentin regimen. #4. Anxiety and depression: continue patient home low-dose Ativan with hold parameters given lethargy upon current presentation with infection, continue patient home duloxetine regimen. #5. Chronic migraines: continue patient home chronic topiramate regimen, given his noted potential stroke evaluation we will hold off on other agents at this time. #6. Chronic orthostasis: continue patient home chronic midodrine regimen. #7. Hypertension: Currently patient blood pressure low. #8. Hyperlipidemia: Continue home statin regimen. #9. Allergic rhinitis: We will continue patient home fluticasone regimen. #10. GERD: continue patient on PPI. #11. Obesity: Weight loss and lifestyle changes encouraged. #12. Former tobacco use: Encourage continued tobacco cessation. #13. Seizure disorder: We will continue patient home Topamax and Tegretol home regimen. #14. DVT prophylaxis: Lovenox. Laboratory Results 02/05/23 23:50: WBC 9.7, RBC 3.86 L, Hgb 12.4, Hct 37.8, MCV 97.9, MCH 32.1 H, MCHC 32.8, RDW Std Deviation 46.8 H, RDW Coeff of He 13.2, Plt Count 271, MPV 10.8, Immature Gran % (Auto) 0.300, Neut % (Auto) 52.4, Lymph % (Auto) 39.4, Adams % (Auto) 6.1, Eos % (Auto) 1.2, Baso % (Auto) 0.6, Absolute Neuts (auto) 5.1, Absolute Lymphs (auto) 3.81, Nucleated RBC % 0, PT 13.2, INR 1.0, APTT 26.5, Sodium 137, Potassium 3.5, Chloride 107, Carbon Dioxide 22.0, Anion Gap 8, BUN 28 H, Creatinine 1.18 H, Estim Creat Clear Calc 49.84, Est GFR (MDRD) Af Amer 61, Est GFR (MDRD) Non-Af 50 L, BUN/Creatinine Ratio 23.7 H, Glucose 101, Lactic Acid 1.0, Calcium 8.8, Troponin I High Sens 4 02/05/23 23:58: Magnesium 2.3 02/06/23 00:50: Urine Color Yellow, Urine Clarity Clear, Urine pH 6.0, Ur Specific [place] 1.010, Urine Protein 15 H, Urine Glucose (UA) Normal, Urine Ketones Negative, Urine Occult Blood 10 H, Urine Nitrite Negative, Urine Bilirubin Negative, Urine Urobilinogen Normal, Ur Leukocyte Esterase 500 H, Urine RBC 0 SEEN, Urine WBC 10-25 SEEN, Ur Squamous Epith Cells 0 SEEN, Urine Bacteria 3+, Urine Mucus 0 SEEN 02/06/23 06:03: POC Glucose 75 02/06/23 07:18: WBC 10.6, RBC 3.77 L, Hgb 12.1, Hct 36.3 L, MCV 96.3, MCH 32.1 H, MCHC 33.3, RDW Std Deviation 46.3 H, RDW Coeff of He 13.2, Plt Count 283, MPV 10.8, Immature Gran % (Auto) 0.400, Neut % (Auto) 59.1, Lymph % (Auto) 31.6, Adams % (Auto) 6.9, Eos % (Auto) 1.4, Baso % (Auto) 0.6, Absolute Neuts (auto) 6.3, Absolute Lymphs (auto) 3.34, Nucleated RBC % 0 Sodium 136, Potassium 3.8, Chloride 109 H, Carbon Dioxide 21.0, Anion Gap 6, BUN 24 H, Creatinine 0.97, Estim Creat Clear Calc 60.62, Est GFR (MDRD) Af Amer 76, Est GFR (MDRD) Non-Af 63, BUN/Creatinine Ratio 24.7 H, Glucose 113 H, Hemoglobin A1c 7.3 H, Calcium 8.4 L, Total Bilirubin 0.20, AST 18, ALT 40, Alkaline Phosphatase 127 H, Total Protein 6.9, Albumin 3.5, Globulin 3.4, Albumin/Globulin Ratio 1.0, TSH 2.37 02/06/23 12:39: POC Glucose 112 H Charges/Coding Visit Charges Inpatient E&M: 87339 Subs Hosp L2
[2023-02-06] MEDS: Aspirin 81 MG TAB.CHEW PO (12:35)
[2023-02-06] MEDS: DULoxetine Hcl 60 MG Capsule PO ×2 (12:35→20:51)
[2023-02-06] MEDS: Clopidogrel Bisulfate 75 MG Tablet PO (12:36)
[2023-02-06] MEDS: Enoxaparin 40 MG/0.4 ML Syringe SC (12:36)
[2023-02-06] MEDS: Pantoprazole Sodium 40 MG Tablet PO (12:37)
[2023-02-06] MEDS: Topiramate 100 MG Tablet 200 MG PO ×2 (12:38→20:51)
[2023-02-06] MEDS: 0.9% Normal Saline 1,000 ML 100 ML IV (12:39)
[2023-02-06] MEDS: Gabapentin 100 MG Capsule PO ×2 (12:39→20:51)
[2023-02-06] MEDS: carBAMazepine 200 MG Tablet PO ×2 (12:39→20:50)
[2023-02-06] MEDS: Insulin Glargine-YFGN 100 UNIT/ML Pen 22 UNIT SC (12:47)
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
[2023-02-06 14:09] LABS: Bedside Glucose 112 mg/dL (74-106)
[2023-02-06 17:11] LABS: Bedside Glucose 116 mg/dL (74-106)
[2023-02-06] MEDS: MELATONIN 3 MG TABLET 12 MG PO (20:50)
[2023-02-06] MEDS: Gabapentin 800 MG Tablet PO (20:51)
[2023-02-06] MEDS: Atorvastatin Calcium 80 MG Tablet PO (20:52)
[2023-02-06] MEDS: Insulin Glargine-YFGN 100 UNIT/ML Pen 15 UNIT SC (20:55)
[2023-02-06 21:25] LABS: Bedside Glucose 148 mg/dL (74-106)
--- NOTE | 2023-02-06 22:19 | CT_ITS ---
We are attempting to reach an attending provider to discuss findings. An addendum with communication details will be sent when the communication is complete. INDICATION: Neuro deficit, acute, stroke suspected. Right-sided weakness, slurred speech, headache, lethargic. EXAMINATION: CTA CAROTIDS AND BRAIN TECHNIQUE: Routine CTA of the head and neck was performed with post processing of the angiographic images for volumetric reconstructions. In addition, images were obtained of the [place] criteria using the distal ICAs for comparison were used for evaluation of stenoses. 2-D and 3-D reconstructions were reviewed. A radiation dose optimization technique was used for this scan. IV Contrast dosage and agent: 100 cc [id number] COMPARISON: Unenhanced CT brain from 2 hours prior FINDINGS: --NECK: AORTIC ARCH AND BRANCHES: No aneurysm, dissection, occlusion or significant stenosis. RIGHT CCA: No occlusion, significant stenosis or dissection. Mild atherosclerotic plaque. RIGHT ICA: No occlusion, significant stenosis or dissection. Mild atherosclerotic plaque proximally. LEFT CCA: No occlusion, significant stenosis or dissection. Atherosclerotic plaque resulting in less than 50% stenosis. LEFT ICA: No occlusion, significant stenosis or dissection. RIGHT VERTEBRAL ARTERY: No occlusion, significant stenosis or dissection. LEFT VERTEBRAL ARTERY: No occlusion, significant stenosis or dissection. NECK SOFT TISSUES: No acute findings. LUNG APICES: No acute findings. BONES: Degenerative changes along spine with no acute osseous abnormality or high-grade spinal canal stenosis. --HEAD: --Anterior circulation: ICAs: No significant stenosis at the intracranial/visualized segments. ACAs: No significant stenosis at the visualized segments. ACOM: Present. MCAs: No significant stenosis at the visualized segments. --Posterior circulation: PCOMs: Tiny faintly visualized remnants bilaterally. soaking tank worker: No significant stenosis at the visualized segments. BASILAR ARTERY: No significant stenosis. VERTEBRAL ARTERIES: No significant stenosis at the intradural/visualized segments. No evidence of intracranial aneurysm or vascular malformation. CT/STROKE CTA Head AND Neck W/Con IMPRESSION: 1. CTA head and neck with no acute arterial occlusive disease or other acute intracranial abnormality. 2. Mild bilateral carotid atherosclerotic disease. 3. Other nonurgent findings within body of report. Electronically Signed: Charbel Mera MD at 1:07 EDT ,
[2023-02-07 00:28] VITALS: BMI 33.5
[2023-02-07 02:30] VITALS: BP 116/62; PULSE 56; RESP 16; TEMP 36.2; O2SAT 96
[2023-02-07 03:39] VITALS: BMI 33.8
[2023-02-07 06:10] LABS: Absolute Lymphocyte Count 2.89 X10^3/uL (0.83-4.51); Basophil# 0.04 X10^3/uL; Basophil% 0.5 % (0-1); Eosinophil# 0.15 X10^3/uL; Hematocrit 36.1 % (37-47); Hemoglobin 12.1 g/dL (12.0-15.0); Lymphocyte # 2.89 X10^3/ul (0.83-4.51); Lymphocyte % 38.3 % (19-41); Mean Corp Hgb Conc 33.5 g/dL (32-36); Mean Corpuscular Hgb 32.8 pg (27.0-32.0); Mean Corpuscular Volume 97.8 fL (81-99); Mean Platelet Vol. 10.7 fl (6.2-12.0); Monocyte% 6.6 % (0-10); NRBC Flagged by Analyzer 0 % (0-5); Neutrophil # 3.95 X10^3/uL (2.7-7.7); Neutrophil % 52.3 % (47-70); Platelet Count 250 K/mm3 (150-450); RBC Distribution Width CV 13.3 % (11.6-14.6); RBC Distribution Width SD 47.6 fl (35.1-43.9); Red Blood Count 3.69 M/mm3 (4.2-5.4); White Blood Count 7.6 K/mm3 (4.4-11.0)
[2023-02-07] MEDS: Midodrine HCl 5 MG Tablet 10 MG PO (06:23)
[2023-02-07 06:36] LABS: Anion Gap 5 (5-15); BUN 18 mg/dL (7-18); BUN/Creat Ratio 21.2 RATIO (10-20); Calcium,Total 8.4 mg/dL (8.5-10.1); Chloride 114 mmol/L (98-107); Cholesterol 144 mg/dL (200); Creatinine, Serum 0.85 mg/dL (0.55-1.02); EST Glomerular Filtration Rate 73 mL/min (>60); Est Glom Filt Rate - Afr Amer 89 mL/min (>60); Estimated Creatinine Clearance 69.18 ml/min; Glucose 125 mg/dL (74-106); High Density Lipoprotein 33 mg/dL; Potassium 4.1 mmol/L (3.5-5.1); Sodium Level 140 mmol/L (136-145); Triglycerides 322 mg/dL; Very Low Density Lipoprotein 64 mg/dL (5-40)
[2023-02-07 06:42] LABS: Bedside Glucose 126 mg/dL (74-106)
[2023-02-07 07:33] VITALS: O2SAT 93
[2023-02-07 08:26] VITALS: BP 131/64; PULSE 59; RESP 18; TEMP 36.6; O2SAT 96
[2023-02-07] MEDS: Aspirin 81 MG TAB.CHEW PO (08:40)
[2023-02-07] MEDS: DULoxetine Hcl 60 MG Capsule PO (08:40)
[2023-02-07] MEDS: Gabapentin 100 MG Capsule PO ×2 (08:40→22:03)
[2023-02-07] MEDS: Pantoprazole Sodium 40 MG Tablet PO (08:40)
[2023-02-07] MEDS: carBAMazepine 200 MG Tablet PO ×2 (08:40→22:03)
[2023-02-07] MEDS: Clopidogrel Bisulfate 75 MG Tablet PO (08:41)
[2023-02-07] MEDS: Insulin Glargine-YFGN 100 UNIT/ML Pen 15 UNIT SC ×2 (08:41→22:07)
[2023-02-07] MEDS: Nystatin Powder 15gm Bottle 1 APPLIC TOPICAL ×2 (08:42→22:05)
[2023-02-07] MEDS: Topiramate 100 MG Tablet 200 MG PO ×2 (08:43→22:04)
--- NOTE | 2023-02-07 10:04 | PCM.DC ---
Discharge Instructions Diet Discharge Diet: Low fat / Low cholesterol, 1800 Calorie Control Diet and 2000 mg Sodium Diet Activity Discharge Activity: Return to Normal Activity Weight Bearing Status: Weight bearing as tolerated Dressing / Incision Call your doctor if you observe: Fever of 101 or Higher, Coldness, Increased Pain, Numbness or Tingling, Change in Color, Inability to urinate, Inability to have a bowel movement, Using more than 1 pad per hour, Shortness of breath, Dizziness, Fainting spells, Swelling in the ankles, Chest pain, Prolonged hiccupping, Increased palpitations (irregular heartbeat) and Calf discomfort Follow Up Care When: IN 2 WEEKS Test Results: Test results from this visit will be discussed in further detail at your follow-up appointment, if applicable. Discharge Plan Admission Admit Date/Time: 02/06/23 02:57 Primary Reason for Your Visit: Acute encephalopathy. Acute stroke ruled out Attending Provider: Forrest Pascal Primary Care Provider: Vi Eng Consulting Providers: Tia Sneed Instructions Additional Instructions / Restrictions: Patient follows [facility] neurologist Dr. Pickens. As per patient it was not a problem but she can continue follow-up. Discharge Orders/Prescriptions Prescriptions: Continued atorvastatin 80 mg tablet 80 mg PO QHS Patient Comments: TAKE ONE TABLET BY MOUTH DAILY AT 9PM AT BEDTIME furosemide 40 mg tablet 40 mg PO DAILY Hold Instructions: stop taking until your nausea and diarrhea are resolved Patient Comments: TAKE ONE TABLET BY MOUTH DAILY AT 9AM lvrerykmqj-wyqelofrqaxyl-tmaa 50-325-40 mg Tablet 1 tab PO Q6H PRN (Reason: Headache) potassium chloride 20 mEq tablet,ER particles/crystals 20 meq PO DAILY Hold Instructions: Order Completed Patient Comments: TAKE ONE TABLET BY MOUTH DAILY AT 9AM lorazepam 0.5 mg Tablet 0.5 mg PO QHS PRN (Reason: anxietty) hydroxyzine HCl 25 mg tablet 50 mg PO QHS PRN (Reason: sleep) Hold Instructions: while needing to take new prescription nausea medication Patient Comments: TAKE ONE TABLET BY MOUTH THREE TIMES DAILY NEEDED (VIAL) fluticasone propionate 50 mcg/actuation spray,suspension 1 spray INTRANASAL DAILY PRN (Reason: Check with primary doctor) Patient Comments: INSTILL 1 SPRAY INTO EACH NOSTRIL ONCE DAILY glipizide 5 mg tablet 5 mg PO BID Patient Comments: TAKE ONE TABLET BY MOUTH TWICE DAILY @ 9AM & 5PM before meals glucagon 1 mg Kit Hold Instructions: Pt is ill ipratropium-albuterol 0.5 mg-3 mg(2.5 mg base)/3 mL solution for nebulization 3 ml inhalation Q6H PRN (Reason: sob) Patient Comments: INHALE THREE ML DIRECTED EVERY 6 HOURS NEEDED (BULK) tizanidine 2 mg tablet 4 mg PO BID Patient Comments: TAKE ONE TABLET BY MOUTH TWICE DAILY NEEDED (VIAL) omeprazole 40 mg capsule,delayed release(DR/EC) 40 mg PO DAILY Patient Comments: TAKE ONE CAPSULE BY MOUTH DAILY AT 9AM gabapentin 800 mg tablet 800 mg PO QHS Patient Comments: TAKE ONE TABLET BY MOUTH DAILY AT 9PM AT BEDTIME meclizine 25 mg tablet 25 mg PO BID Hold Instructions: while needing to take new prescription nausea medication Patient Comments: TAKE ONE TABLET BY MOUTH TWICE DAILY @ 9AM & 5PM carbamazepine 200 mg tablet extended release 12 hr 200 mg PO BID promethazine 25 mg tablet 25 mg PO Q6H PRN PRN (Reason: Nausea) Patient Comments: TAKE ONE-HALF TO 1 TABLET BY MOUTH EVERY 6 HOURS NEEDED (VIAL) docusate sodium 100 mg Capsule 100 mg PO BID diclofenac sodium 75 mg tablet,delayed release (DR/EC) 75 mg PO BID PRN (Reason: pain) Patient Comments: TAKE ONE TABLET BY MOUTH TWICE DAILY NEEDED (VIAL) gabapentin 100 mg Capsule 100 mg PO BID insulin lispro 100 unit/mL solution See Protocol subcut ACHS Protocol: 6. Sliding Scale Insulin Custom Condition: mg/dl range Dose/Route: Number of Units Protocol Text: Custom Sliding Scale Patient Comments: INJECT PER SLIDING SCALE THREE TIMES DAILY FOLLOWS 2 UNITS 150-200, 4 UNITS 200-251, 6 UNITS 252-300, 8 UNITS 301-350, 10 UNITS 351-400, CALL MD OVER 400 (MAX 48 UNITS PER DAY) (BULK) albuterol sulfate 90 mcg/actuation HFA aerosol inhaler 90 inh INHALATION Q4H PRN PRN (Reason: Wheezing) Patient Comments: INHALE TWO PUFFS BY MOUTH DIRECTED EVERY 4 HOURS NEEDED FOR WHEEZING OR FOR SHORTNESS OF BREATH (BULK) topiramate 100 mg tablet 200 mg PO BID Patient Comments: TAKE ONE TABLET BY MOUTH THREE TIMES DAILY @9AM-3PM-9PM naratriptan [Amerge] 2.5 mg Tablet 2.5 mg PO Q4H PRN (Reason: migraines) Rx Instructions: do not exceed 2 doses per 24 hrs duloxetine 60 mg capsule,delayed release(DR/EC) 60 mg PO BID Patient Comments: TAKE ONE CAPSULE BY MOUTH TWICE DAILY @ 9AM & 5PM (DME) FreeStyle Es 2 Sensor Kit MISCELLANEOUS Patient Comments: apply 1 SENSOR to back OF UPPER ARM REMOVE AND REPLACE every 14 d... (REFER TO PRESCRIPTION NOTES). (DME) FreeStyle Es 2 Spencer Misc MISCELLANEOUS Patient Comments: USE CONTINUOUSLY TO MONITOR BLOOD SUGARS DAILY (DME) Droplet Insulin Syr(half unit) 0.5 mL 31 gauge x 5/16 syringe MISCELLANEOUS Patient Comments: USE TO INJECT INSULIN UNDER THE SKIN EVERY MEAL AND AT BEDTIME PER SLIDING SCALE ergocalciferol (vitamin D2) 1,250 mcg (50,000 unit) capsule 50,000 unit PO MO Patient Comments: TAKE 1 CAPSULE BY MOUTH EVERY WEDNESDAY AT 9AM (VIAL) Rx Instructions: takes on mondays melatonin 12 mg Tablet 12 mg PO QHS promethazine 25 mg tablet 25 mg PO Q6H PRN PRN (Reason: Nausea) Qty: 12 0RF midodrine 5 mg tablet 5 mg PO TID Patient Comments: IF SBP <140 Rx Instructions: do not give last dose of day after 6PM or within 4 hrs of bedtime duloxetine [Cymbalta] 60 mg capsule,delayed release(DR/EC) 120 mg PO DAILY Nuedexta 20-10 mg capsule 1 cap PO DAILY Ubrelvy 100 mg tablet 100 mg PO .COMPLEX PRN (Reason: MIGRAINE) Rx Instructions: 100 mg orally 1 TABLET. IF NO IMPROVEMENT WITHIN 2 HRS 2 TABS. NOT TO EXCEED 2 TABS IN 24H PRN; Changed insulin glargine [Lantus U-100 Insulin] 100 unit/mL Solution 15 unit SUBCUT BID Qty: 10 2RF Referrals / Follow Up: Vi Eng DO [Primary Care Provider] - Within 2 Weeks
--- NOTE | 2023-02-07 10:17 | PCM.DC.SUM ---
Providers Date of Admission: 02/06/23 Primary Care Physician: Dr. Vi Eng, DO Reason For Visit: ENCEPHALOPATHY, UTI, TIA/CVA Diagnosis Discharge Diagnosis (1) Brain TIA: Status: Acute Code(s): G45.9 - Transient cerebral ischemic attack, unspecified (2) Urinary tract infection: Status: Acute Code(s): N39.0 - Urinary tract infection, site not specified (3) Transient hypotension: Status: Acute Code(s): I95.9 - Hypotension, unspecified Plan The patient is a 57 y/o F admitted with weakness on the right side slurred speech all new. Prehospital stroke alert was called. Patient was just discharged from [facility] after 11 days of rehab. #1. Acute encephalopathy most likely due to polypharmacy/infectious/metabolic encephalopathy and/or atypical presentation of migraine: Patient was admitted in August 2022 for dysarthria and left-sided facial numbness and LUE numbness. 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 02/06: MRI brain reported involutional changes but no acute infarct. CTA head and neck no acute arterial occlusive disease or other acute intracranial abnormality. Mild bilateral carotid atherosclerotic disease. C-spine MRI shows continued 1 cm oval focal hyperintensity of brainstem but no contrast-enhancement. No change in mild degenerative disc with a straightening of normal lordotic features. This changes were present in previous MRI C-spine August 2022. 02/07: Patient has seen her neurologist in [facility] Dr. Villaseñor. As per the patient he thinks this is nonoperable lesion but she can continue follow-up. There is also suspicion of MS but will need continued follow-up either to rule in or rule out the diagnosis. Patient is clinically doing good. Acute encephalopathy resolved. Patient also has severe anxiety and depression and multiple nerve and antipsychotic medications that may be the cause for acute encephalopathy. Patient also had a headache that lasted for about half an hour to 1 hour. Her headache is resolved. She has history of migraine headache. #2. Acute Encephalopathy and Hypotension secondary to Acute Complicated E. coli urinary Tract Infection/cystitis: Patient denies burning micturition or acute change. UA shows LE 500, WBC 10-25 cells, 3+ bacteria, negative nitrite. Patient empirically on IV ceftriaxone. Urine culture pending. Patient blood pressure was also on the lower side and heart rate in 50s. She has chronic bradycardia. Orthostatic blood pressure ordered. 02/07: Micro lab called and patient and culture is growing gram-negative jake lactose clam shucking machine tender more than 100,000 colonies. Sensitivity pending. Patient empirically discharged on Keflex for 5 days. Patient had 2 days of IV ceftriaxone. #3. Diabetes mellitus type II with chronic neuropathy: Patient glucose is normal range in 120s. Lantus insulin dose increased with holding parameter. Patient on Accu-Cheks before meals and its coverage 02/07: Glucoses controlled. Glucose in BMP 125. A1c 7.3%. Patient has Lantus and lispro insulin at home. She does not need refill. continue patient home chronic gabapentin regimen. #4. Anxiety and depression: continue patient home low-dose Ativan with hold parameters given lethargy upon current presentation with infection, continue patient home duloxetine regimen. I also feel she has exophthalmos but her TSH is normal. #5. Chronic migraines: continue patient home chronic topiramate regimen, given his noted potential stroke evaluation we will hold off on other agents at this time. #6. Chronic orthostasis: continue patient home chronic midodrine regimen. #7. Hypertension: Currently patient blood pressure low. #8. Hyperlipidemia: Continue home statin regimen. #9. Allergic rhinitis: We will continue patient home fluticasone regimen. #10. GERD: continue patient on PPI. #11. Obesity: Weight loss and lifestyle changes encouraged. #12. Former tobacco use: Encourage continued tobacco cessation. #13. Seizure disorder: continue patient home Topamax and Tegretol home regimen. #14. DVT prophylaxis: Lovenox. Discharge medication reconciliation done. Discharge follow-up instructions completed. Discharge process discussed with the patient and all questions were answered to patient's satisfaction. Total time spent, exact 35 minutes on discharge meds reconciliation, examination, coordination of care with nurses and ancillary staff, review of imaging and blood test and discussion with the patient on follow-up instructions. Laboratory Results 02/06/23 12:39: POC Glucose 112 H 02/06/23 16:49: POC Glucose 116 H 02/06/23 20:46: POC Glucose 148 H 02/07/23 05:45: WBC 7.6, RBC 3.69 L, Hgb 12.1, Hct 36.1 L, MCV 97.8, MCH 32.8 H, MCHC 33.5, RDW Std Deviation 47.6 H, RDW Coeff of He 13.3, Plt Count 250, MPV 10.7, Immature Gran % (Auto) 0.300, Neut % (Auto) 52.3, Lymph % (Auto) 38.3, Glasscock % (Auto) 6.6, Eos % (Auto) 2.0, Baso % (Auto) 0.5, Absolute Neuts (auto) 4.0, Absolute Lymphs (auto) 2.89, Nucleated RBC % 0, Sodium 140, Potassium 4.1, Chloride 114 H, Carbon Dioxide 21.0, Anion Gap 5, BUN 18, Creatinine 0.85, Estim Creat Clear Calc 69.18, Est GFR (MDRD) Af Amer 89, Est GFR (MDRD) Non-Af 73, BUN/Creatinine Ratio 21.2 H, Glucose 125 H, Calcium 8.4 L, Triglycerides 322 H, Cholesterol 144, LDL Cholesterol 47, VLDL Cholesterol 64 H, HDL Cholesterol 33 L 02/07/23 06:21: POC Glucose 126 H Medications at Discharge Home Medications albuterol sulfate 90 mcg/actuation aerosol inhaler 90 inh inhalation Q4H PRN PRN Wheezing 09/03/22 atorvastatin 80 mg tablet 80 mg PO QHS 09/03/22 fckawuhqls-mcoiniofookul-vqialbot 50 mg-325 mg-40 mg tablet 1 tab PO Q6H PRN Headache 09/03/22 carbamazepine 200 mg tablet,extended release,12 hr 200 mg PO BID 09/03/22 diclofenac sodium 75 mg tablet,delayed release 75 mg PO BID PRN pain 09/03/22 docusate sodium 100 mg capsule 100 mg PO BID CONSTIPATION 09/03/22 duloxetine 60 mg capsule,delayed release 60 mg PO BID 09/03/22 ergocalciferol (vitamin D2) 1,250 mcg (50,000 unit) capsule 50,000 unit PO MO Check with primary doctor 09/03/22 flash glucose scanning reader (c-crowd Es 2 [place]) 09/03/22 flash glucose sensor ([employer] Es 2 Sensor kit) 09/03/22 fluticasone propionate 50 mcg/actuation nasal spray,suspension 1 spray intranasal DAILY PRN Check with primary doctor 09/03/22 furosemide 40 mg tablet 40 mg PO DAILY Check with primary doctor 09/03/22 gabapentin 100 mg capsule 100 mg PO BID 09/03/22 gabapentin 800 mg tablet 800 mg PO QHS 09/03/22 glipizide 5 mg tablet 5 mg PO BID Check with primary doctor 09/03/22 glucagon 1 mg injection kit mg Check with primary doctor 09/03/22 hydroxyzine HCl 25 mg tablet 50 mg PO QHS PRN sleep 09/03/22 insulin lispro 100 unit/mL subcutaneous solution See Protocol subcut ACHS Check with primary doctor 09/03/22 insulin syr/ndl U100 half shirley 0.5 mL 31 gauge x 5/16 (Droplet Insulin Syringe (half unit)) 09/03/22 ipratropium 0.5 mg-albuterol 3 mg (2.5 mg base)/3 mL nebulization soln 3 ml inhalation Q6H PRN sob 09/03/22 lorazepam 0.5 mg tablet 0.5 mg PO QHS PRN anxietty 09/03/22 meclizine 25 mg tablet 25 mg PO BID DIZZINESS 09/03/22 melatonin 12 mg tablet 12 mg PO QHS 09/03/22 naratriptan 2.5 mg tablet (Amerge) 2.5 mg PO Q4H PRN migraines 09/03/22 omeprazole 40 mg capsule,delayed release 40 mg PO DAILY 09/03/22 potassium chloride 20 mEq tablet,extended release(part/cryst) 20 meq PO DAILY NOT EVELINE 09/03/22 promethazine 25 mg tablet 25 mg PO Q6H PRN PRN Nausea 09/03/22 tizanidine 2 mg tablet 4 mg PO BID 09/03/22 topiramate 100 mg tablet 200 mg PO BID 09/03/22 promethazine 25 mg tablet 25 mg PO Q6H PRN PRN Nausea #12 TABLETS 11/08/22 midodrine 5 mg tablet 5 mg PO TID HYPOTENSION 02/05/23 dextromethorphan 20 mg-quinidine 10 mg capsule (Nuedexta) 1 cap PO DAILY DEPRESSION 02/06/23 duloxetine 60 mg capsule,delayed release (Cymbalta) 120 mg PO DAILY DEPRESSION 02/06/23 ubrogepant 100 mg tablet (Ubrelvy) 100 mg PO .COMPLEX PRN MIGRAINE 02/06/23 cephalexin 500 mg capsule 500 mg PO TID 5 days #15 caps 02/07/23 insulin glargine 100 unit/mL subcutaneous solution (Lantus U-100 Insulin) 15 unit (0.15 mL) subcut BID Check with primary doctor #10 mL 02/07/23 Physical Exam Narrative Patient had migraine headache last night. Currently she feels normal on baseline. Wants to go home Seen and examined. Physical exam General: Alert, Oriented x3, Cooperative HEENT: Laura/exophthalmos atraumatic, PERRLA, EOMI, Normocephalic Oral: No Gingival or Mucosal Lesions/ Ulcerations Neck: Supple, No JVD, Negative Carotid Bruits Lungs: Air entry diminished in bilateral lung bases. No crepitation/rhonchi Cardiovascular: Regular rate, Regular Rhythm, Normal S1, Normal S2, No murmurs Abdomen: Bowel Sounds Present, Soft, Non Tender, Non-Distended : No renal angle tenderness. No suprapubic tenderness. Extremities: No edema, Capillary Refill Less than 3 Seconds Skin: No rashes, No breakdown Musculoskeletal: No focal weakness of all 4 extremities. Sensation in right upper extremity and right side of face diminished as compared to left. Chronic neuropathy of lower extremity. No Tenderness to Palpation of Joints or Extremities Neurological: Cranial nerves II-XII grossly intact, DTR 2+/4. No acute focal neurological deficit. No aphasia or dysarthria Psych/Mental Status: Flat affect. Weight / BMI Weight Weight: 209 lb 14.081 oz Body Mass Index (BMI) 33.8 ABG / Lab / Microbiology Data 02/07/23 05:45 02/07/23 05:45 Laboratory: Laboratory Results - last 24 hr 02/06/23 12:39: POC Glucose 112 H 02/06/23 16:49: POC Glucose 116 H 02/06/23 20:46: POC Glucose 148 H 02/07/23 05:45: WBC 7.6, RBC 3.69 L, Hgb 12.1, Hct 36.1 L, MCV 97.8, MCH 32.8 H, MCHC 33.5, RDW Std Deviation 47.6 H, RDW Coeff of He 13.3, Plt Count 250, MPV 10.7, Immature Gran % (Auto) 0.300, Neut % (Auto) 52.3, Lymph % (Auto) 38.3, Glasscock % (Auto) 6.6, Eos % (Auto) 2.0, Baso % (Auto) 0.5, Absolute Neuts (auto) 4.0, Absolute Lymphs (auto) 2.89, Nucleated RBC % 0, Sodium 140, Potassium 4.1, Chloride 114 H, Carbon Dioxide 21.0, Anion Gap 5, BUN 18, Creatinine 0.85, Estim Creat Clear Calc 69.18, Est GFR (MDRD) Af Amer 89, Est GFR (MDRD) Non-Af 73, BUN/Creatinine Ratio 21.2 H, Glucose 125 H, Calcium 8.4 L, Triglycerides 322 H, Cholesterol 144, LDL Cholesterol 47, VLDL Cholesterol 64 H, HDL Cholesterol 33 L 02/07/23 06:21: POC Glucose 126 H Radiography Diagnostic Testing: Radiology Impression Brain MRI 02/06/23 05:55 IMPRESSION: Involutional changes of the brain, as described above. No acute infarct. Electronically Signed: Rylan Kimbrough MD at 14:54 EDT Reading Location ID and State: [id number] Tel , Service support , Cervical Spine MRI 02/06/23 05:55 IMPRESSION: 1. Continued focal hyperintensity of the brainstem but no contrast enhancement. 2. No change in the mild degenerative disc disease with straightening of the normal lordotic curvature. Electronically Signed: Rylan Kimbrough MD at 15:02 EDT Reading Location ID and State: [id number] / [employer] Tel , Service support , D/C Instructions Discharge Diet: Low fat / Low cholesterol, 1800 Calorie Control Diet and 2000 mg Sodium Diet Weight Bearing Status: Weight bearing as tolerated Call your doctor if you observe: Fever of 101 or Higher, Coldness, Increased Pain, Numbness or Tingling, Change in Color, Inability to urinate, Inability to have a bowel movement, Using more than 1 pad per hour, Shortness of breath, Dizziness, Fainting spells, Swelling in the ankles, Chest pain, Prolonged hiccupping, Increased palpitations (irregular heartbeat) and Calf discomfort When: IN 2 WEEKS Meaningful Use Info Meaningful Use Diagnoses (Choose all that apply): None applicable Discharge Plan Admission Admit Date/Time: 02/06/23 02:57 Primary Reason for Your Visit: Acute encephalopathy. Acute stroke ruled out Attending Provider: Forrest Pascal Primary Care Provider: Vi Eng Consulting Providers: Tia Sneed Instructions Additional Instructions / Restrictions: Patient follows [facility] neurologist Dr. Pickens. As per patient it was not a problem but she can continue follow-up. Discharge Orders/Prescriptions Prescriptions: New cephalexin 500 mg capsule 500 mg PO TID 5 Days Qty: 15 0RF Continued atorvastatin 80 mg tablet 80 mg PO QHS Patient Comments: TAKE ONE TABLET BY MOUTH DAILY AT 9PM AT BEDTIME furosemide 40 mg tablet 40 mg PO DAILY Hold Instructions: stop taking until your nausea and diarrhea are resolved Patient Comments: TAKE ONE TABLET BY MOUTH DAILY AT 9AM rrxtaxbaor-ztgmkkpalvefw-aofr 50-325-40 mg Tablet 1 tab PO Q6H PRN (Reason: Headache) potassium chloride 20 mEq tablet,ER particles/crystals 20 meq PO DAILY Hold Instructions: Order Completed Patient Comments: TAKE ONE TABLET BY MOUTH DAILY AT 9AM lorazepam 0.5 mg Tablet 0.5 mg PO QHS PRN (Reason: anxietty) hydroxyzine HCl 25 mg tablet 50 mg PO QHS PRN (Reason: sleep) Hold Instructions: while needing to take new prescription nausea medication Patient Comments: TAKE ONE TABLET BY MOUTH THREE TIMES DAILY NEEDED (VIAL) fluticasone propionate 50 mcg/actuation spray,suspension 1 spray INTRANASAL DAILY PRN (Reason: Check with primary doctor) Patient Comments: INSTILL 1 SPRAY INTO EACH NOSTRIL ONCE DAILY glipizide 5 mg tablet 5 mg PO BID Patient Comments: TAKE ONE TABLET BY MOUTH TWICE DAILY @ 9AM & 5PM before meals glucagon 1 mg Kit Hold Instructions: Pt is ill ipratropium-albuterol 0.5 mg-3 mg(2.5 mg base)/3 mL solution for nebulization 3 ml inhalation Q6H PRN (Reason: sob) Patient Comments: INHALE THREE ML DIRECTED EVERY 6 HOURS NEEDED (BULK) tizanidine 2 mg tablet 4 mg PO BID Patient Comments: TAKE ONE TABLET BY MOUTH TWICE DAILY NEEDED (VIAL) omeprazole 40 mg capsule,delayed release(DR/EC) 40 mg PO DAILY Patient Comments: TAKE ONE CAPSULE BY MOUTH DAILY AT 9AM gabapentin 800 mg tablet 800 mg PO QHS Patient Comments: TAKE ONE TABLET BY MOUTH DAILY AT 9PM AT BEDTIME meclizine 25 mg tablet 25 mg PO BID Hold Instructions: while needing to take new prescription nausea medication Patient Comments: TAKE ONE TABLET BY MOUTH TWICE DAILY @ 9AM & 5PM carbamazepine 200 mg tablet extended release 12 hr 200 mg PO BID promethazine 25 mg tablet 25 mg PO Q6H PRN PRN (Reason: Nausea) Patient Comments: TAKE ONE-HALF TO 1 TABLET BY MOUTH EVERY 6 HOURS NEEDED (VIAL) docusate sodium 100 mg Capsule 100 mg PO BID diclofenac sodium 75 mg tablet,delayed release (DR/EC) 75 mg PO BID PRN (Reason: pain) Patient Comments: TAKE ONE TABLET BY MOUTH TWICE DAILY NEEDED (VIAL) gabapentin 100 mg Capsule 100 mg PO BID insulin lispro 100 unit/mL solution See Protocol subcut [facility] Protocol: 6. Sliding Scale Insulin Custom Condition: mg/dl range Dose/Route: Number of Units Protocol Text: Custom Sliding Scale Patient Comments: INJECT PER SLIDING SCALE THREE TIMES DAILY FOLLOWS 2 UNITS 150-200, 4 UNITS 200-251, 6 UNITS 252-300, 8 UNITS 301-350, 10 UNITS 351-400, CALL MD OVER 400 (MAX 48 UNITS PER DAY) (BULK) albuterol sulfate 90 mcg/actuation HFA aerosol inhaler 90 inh INHALATION Q4H PRN PRN (Reason: Wheezing) Patient Comments: INHALE TWO PUFFS BY MOUTH DIRECTED EVERY 4 HOURS NEEDED FOR WHEEZING OR FOR SHORTNESS OF BREATH (BULK) topiramate 100 mg tablet 200 mg PO BID Patient Comments: TAKE ONE TABLET BY MOUTH THREE TIMES DAILY @9AM-3PM-9PM naratriptan [Amerge] 2.5 mg Tablet 2.5 mg PO Q4H PRN (Reason: migraines) Rx Instructions: do not exceed 2 doses per 24 hrs duloxetine 60 mg capsule,delayed release(DR/EC) 60 mg PO BID Patient Comments: TAKE ONE CAPSULE BY MOUTH TWICE DAILY @ 9AM & 5PM (DME) c-crowd Es 2 Sensor Kit MISCELLANEOUS Patient Comments: apply 1 SENSOR to back OF UPPER ARM REMOVE AND REPLACE every 14 d... (REFER TO PRESCRIPTION NOTES). (DME) FreeStyle Es 2 [place] [facility] MISCELLANEOUS Patient Comments: USE CONTINUOUSLY TO MONITOR BLOOD SUGARS DAILY (DME) Droplet Insulin Syr(half unit) 0.5 mL 31 gauge x 5/16 syringe MISCELLANEOUS Patient Comments: USE TO INJECT INSULIN UNDER THE SKIN EVERY MEAL AND AT BEDTIME PER SLIDING SCALE ergocalciferol (vitamin D2) 1,250 mcg (50,000 unit) capsule 50,000 unit PO MO Patient Comments: TAKE 1 CAPSULE BY MOUTH EVERY WEDNESDAY AT 9AM (VIAL) Rx Instructions: takes on mondays melatonin 12 mg Tablet 12 mg PO QHS promethazine 25 mg tablet 25 mg PO Q6H PRN PRN (Reason: Nausea) Qty: 12 0RF midodrine 5 mg tablet 5 mg PO TID Patient Comments: IF SBP <140 Rx Instructions: do not give last dose of day after 6PM or within 4 hrs of bedtime duloxetine [Cymbalta] 60 mg capsule,delayed release(DR/EC) 120 mg PO DAILY Nuedexta 20-10 mg capsule 1 cap PO DAILY Ubrelvy 100 mg tablet 100 mg PO .COMPLEX PRN (Reason: MIGRAINE) Rx Instructions: 100 mg orally 1 TABLET. IF NO IMPROVEMENT WITHIN 2 HRS 2 TABS. NOT TO EXCEED 2 TABS IN 24H PRN; Changed insulin glargine [Lantus U-100 Insulin] 100 unit/mL Solution 15 unit SUBCUT BID Qty: 10 2RF Referrals / Follow Up: Vi Eng DO [Primary Care Provider] - Within 2 Weeks Charges/Coding Visit Charges Inpatient E&M: 14234 Disch Hosp >30min
--- NOTE | 2023-02-07 10:28 | NURSING ---
I spoke with Lyssa at [facility] to inform her that the pt will be d/c today. I also faxed over all the d/c instructions.
[2023-02-07 11:44] LABS: Bedside Glucose 150 mg/dL (74-106)
[2023-02-07] MEDS: Ceftriaxone 1 GM/50 ML BAG IV (12:02)
[2023-02-07] MEDS: 0.9% Saline Lock 10 ML Syringe IV (12:02)
--- NOTE | 2023-02-07 13:07 | PCM.PN.HOSP ---
Reason for Visit Reason for Visit: Diagnoses Transient cerebral ischemic attack, unspecified (02/06/23) Hypotension, unspecified (02/06/23) Urinary tract infection, site not specified (02/06/23) Objective Data Objective Data Vital Signs: Vital Signs Temp Pulse Resp BP Pulse Ox O2 Del Method 97.9 F 59 L 18 131/64 H 96 Room Air 02/07/23 08:26 02/07/23 08:26 02/07/23 08:26 02/07/23 08:26 02/07/23 08:26 02/07/23 08:26 Oxygen Delivery Method Room Air Weight: 209 lb 14.081 oz Body Mass Index (BMI) 33.8 Intake & Output: Intake and Output for Last 24 Hours 02/05/23 02/06/23 02/07/23 23:59 23:59 23:59 Intake Total 3270 / 3270 Output Total 0 / 0 Balance 3270 / 3270 Lab / Micro Data 02/07/23 05:45 02/07/23 05:45 Labs: Laboratory Results - last 24 hr 02/06/23 12:39: POC Glucose 112 H 02/06/23 16:49: POC Glucose 116 H 02/06/23 20:46: POC Glucose 148 H 02/07/23 05:45: WBC 7.6, RBC 3.69 L, Hgb 12.1, Hct 36.1 L, MCV 97.8, MCH 32.8 H, MCHC 33.5, RDW Std Deviation 47.6 H, RDW Coeff of He 13.3, Plt Count 250, MPV 10.7, Immature Gran % (Auto) 0.300, Neut % (Auto) 52.3, Lymph % (Auto) 38.3, [place] % (Auto) 6.6, Eos % (Auto) 2.0, Baso % (Auto) 0.5, Absolute Neuts (auto) 4.0, Absolute Lymphs (auto) 2.89, Nucleated RBC % 0, Sodium 140, Potassium 4.1, Chloride 114 H, Carbon Dioxide 21.0, Anion Gap 5, BUN 18, Creatinine 0.85, Estim Creat Clear Calc 69.18, Est GFR (MDRD) Af Amer 89, Est GFR (MDRD) Non-Af 73, BUN/Creatinine Ratio 21.2 H, Glucose 125 H, Calcium 8.4 L, Triglycerides 322 H, Cholesterol 144, LDL Cholesterol 47, VLDL Cholesterol 64 H, HDL Cholesterol 33 L 02/07/23 06:21: POC Glucose 126 H 02/07/23 11:26: POC Glucose 150 H Micro: Microbiology 02/06/23 00:50 Urine, Catheterized Urine Culture - Preliminary GNR lactose coconut candy maker Radiography Diagnostic Testing: Radiology Impression Brain MRI 02/06/23 05:55 IMPRESSION: Involutional changes of the brain, as described above. No acute infarct. Electronically Signed: Rylan Kimbrough MD at 14:54 EDT Reading Location ID and State: Payment plugin / [facility] Tel , Service support , Cervical Spine MRI 02/06/23 05:55 IMPRESSION: 1. Continued focal hyperintensity of the brainstem but no contrast enhancement. 2. No change in the mild degenerative disc disease with straightening of the normal lordotic curvature. Electronically Signed: Rylan Kimbrough MD at 15:02 EDT Reading Location ID and State: Payment plugin / [facility] Tel , Service support , Rhythm Strip Rhythm Strip: Sinus Rhythm Rate: 60 Ectopy: None Physical Exam Narrative Patient had migraine headache last night. Currently she feels normal on baseline. Seen and examined. Physical exam General: Alert, Oriented x3, Cooperative HEENT: Laura/exophthalmos atraumatic, PERRLA, EOMI, Normocephalic Oral: No Gingival or Mucosal Lesions/ Ulcerations Neck: Supple, No JVD, Negative Carotid Bruits Lungs: Air entry diminished in bilateral lung bases. No crepitation/rhonchi Cardiovascular: Regular rate, Regular Rhythm, Normal S1, Normal S2, No murmurs Abdomen: Bowel Sounds Present, Soft, Non Tender, Non-Distended : No renal angle tenderness. No suprapubic tenderness. Extremities: No edema, Capillary Refill Less than 3 Seconds Skin: No rashes, No breakdown Musculoskeletal: No focal weakness of all 4 extremities. Sensation in right upper extremity and right side of face diminished as compared to left. Chronic neuropathy of lower extremity. No Tenderness to Palpation of Joints or Extremities Neurological: Cranial nerves II-XII grossly intact, DTR 2+/4. No acute focal neurological deficit. No aphasia or dysarthria Psych/Mental Status: Flat affect. Assessment & Plan Assessment/Plan (1) Brain TIA: (2) Urinary tract infection: (3) Transient hypotension: PLAN: Plan The patient is a 57 y/o F admitted with weakness on the right side slurred speech all new. Prehospital stroke alert was called. Patient was just discharged from [facility] after 11 days of rehab. #1. Acute encephalopathy most likely due to polypharmacy/infectious/metabolic encephalopathy and/or atypical presentation of migraine: Patient was admitted in August 2022 for dysarthria and left-sided facial numbness and LUE numbness. 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 02/06: MRI brain reported involutional changes but no acute infarct. CTA head and neck no acute arterial occlusive disease or other acute intracranial abnormality. Mild bilateral carotid atherosclerotic disease. C-spine MRI shows continued 1 cm oval focal hyperintensity of brainstem but no contrast-enhancement. No change in mild degenerative disc with a straightening of normal lordotic features. This changes were present in previous MRI C-spine August 2022. 02/07: Patient has seen her neurologist in [facility] Dr. Villaseñor. As per the patient he thinks this is nonoperable lesion but she can continue follow-up. There is also suspicion of MS but will need continued follow-up either to rule in or rule out the diagnosis. Patient is clinically doing good. Acute encephalopathy resolved. Patient also has severe anxiety and depression and multiple nerve and antipsychotic medications that may be the cause for acute encephalopathy. Patient also had a headache that lasted for about half an hour to 1 hour. Her headache is resolved. She has history of migraine headache. Additional note: After patient was discharged, the family stated that they do not want to take her home because patient gets confused disoriented and they will bring back right in in the evening or night. I talked to patient's sister Mrs. Enriqueta Ramos check in 1 gentleman on the phone #[phone]. I tried to convince her that patient does not want to go to [facility] but decided patient is confused and she has to go to [facility]. They also said that she should not go to [facility] and [facility]. Discussed with the charge nurse. I also said her confusion and decreased responsiveness is mostly due to her high doses of multiple neurological medications including high-dose of gabapentin, lorazepam, melatonin 12 mg at night, hydroxyzine, meclizine and Topamax. She had migraine headache last night mainly occipital region therefore we will keep Topamax home dose 200 mg twice daily. Discontinue lorazepam, decrease duloxetine 60 mg daily. In hospital patient is not on melatonin hydroxyzine or meclizine therefore make sure hydroxyzine and meclizine are discontinued and discharged back. #2. Acute Encephalopathy and Hypotension secondary to Acute Complicated E. coli urinary Tract Infection/cystitis: Patient denies burning micturition or acute change. UA shows LE 500, WBC 10-25 cells, 3+ bacteria, negative nitrite. Patient empirically on IV ceftriaxone. Urine culture pending. Patient blood pressure was also on the lower side and heart rate in 50s. She has chronic bradycardia. Orthostatic blood pressure ordered. 02/07: Micro lab called and patient and culture is growing gram-negative jake lactose coconut candy maker more than 100,000 colonies. Sensitivity pending. Patient empirically discharged on Keflex for 5 days. Patient had 2 days of IV ceftriaxone. #3. Diabetes mellitus type II with chronic neuropathy: Patient glucose is normal range in 120s. Lantus insulin dose increased with holding parameter. Patient on Accu-Cheks before meals and its coverage 02/07: Glucoses controlled. Glucose in BMP 125. A1c 7.3%. Patient has Lantus and lispro insulin at home. She does not need refill. continue patient home chronic gabapentin regimen. #4. Anxiety and depression: continue patient home low-dose Ativan with hold parameters given lethargy upon current presentation with infection, continue patient home duloxetine regimen. I also feel she has exophthalmos but her TSH is normal. #5. Chronic migraines: continue patient home chronic topiramate regimen, given his noted potential stroke evaluation we will hold off on other agents at this time. #6. Chronic orthostasis: continue patient home chronic midodrine regimen. #7. Hypertension: Currently patient blood pressure low. #8. Hyperlipidemia: Continue home statin regimen. #9. Allergic rhinitis: We will continue patient home fluticasone regimen. #10. GERD: continue patient on PPI. #11. Obesity: Weight loss and lifestyle changes encouraged. #12. Former tobacco use: Encourage continued tobacco cessation. #13. Seizure disorder: continue patient home Topamax and Tegretol home regimen. #14. DVT prophylaxis: Lovenox. Charges/Coding Addendum Addendum: Please cancel the billing charge for discharge summary. Discharge is canceled. Visit Charges Inpatient E&M: 09711 Subs Hosp L2
--- NOTE | 2023-02-07 13:10 | NURSING ---
Per Dr Pascal, family requesting pt go to SNF. Does not want pt going to [facility] or [facility]. Primary RN updated.
--- NOTE | 2023-02-07 14:57 | EKG12_ITS ---
Test Reason : MYRIAM Blood Pressure : / mmHG Vent. Rate : 075 BPM Atrial Rate : 075 BPM P-R Int : 186 ms QRS Dur : 102 ms QT Int : 396 ms P-R-T Axes : 051 -47 064 degrees QTc Int : 442 ms Normal sinus rhythm Incomplete right bundle branch block Left anterior fascicular block Abnormal ECG When compared with ECG of 05-FEB-2023 23:19, No significant change was found Confirmed by FRANCISCO WHITE, IRINA ([id number]), development editor MEGAN CARPIO ([id number]) on 02/11/2023 9:02:41 AM Referred By: LU Confirmed By:RADHA SINGH MD
[2023-02-07 15:09] VITALS: BP 122/71; PULSE 75; RESP 18; TEMP 36.9; O2SAT 99
[2023-02-07 16:10] VITALS: BMI 33.8
[2023-02-07] MEDS: Insulin Lispro 100 UNIT/ML INSULN.PEN SC ×2 (16:39→22:08)
[2023-02-07 16:58] LABS: Bedside Glucose 197 mg/dL (74-106)
[2023-02-07 19:54] VITALS: O2SAT 98
[2023-02-07 22:00] VITALS: BP 126/73; PULSE 68; RESP 18; TEMP 36.5; O2SAT 98
[2023-02-07] MEDS: Gabapentin 400 MG Capsule PO (22:03)
[2023-02-07] MEDS: Acetaminophen/Butalbital/Caffe 1 Tablet PO (22:03)
[2023-02-07] MEDS: MELATONIN 3 MG TABLET 12 MG PO (22:06)
[2023-02-07] MEDS: Atorvastatin Calcium 80 MG Tablet PO (22:07)
[2023-02-07 22:33] LABS: Bedside Glucose 196 mg/dL (74-106)
[2023-02-08] VITALS (8 sets, daily range): BP systolic 122–156; BP diastolic 44–85; PULSE 59–75; RESP 15–18; TEMP 36.3–36.8; O2SAT 96–100; BMI 33.8; BMI 33.3
[2023-02-08] MEDS: proCHLORPERazine 10 MG/2 ML Vial 5 MG IV ×2 (03:46→18:07)
[2023-02-08] MEDS: 0.9% Saline Lock 10 ML Syringe IV (03:47)
[2023-02-08] MEDS: Acetaminophen/Butalbital/Caffe 1 Tablet PO ×3 (03:52→22:24)
[2023-02-08 04:40] LABS: Absolute Lymphocyte Count 2.44 X10^3/uL (0.83-4.51); Absolute Neutrophil Count 4.8 X10^3/uL (2.0-7.7); Basophil# 0.03 X10^3/uL; Basophil% 0.4 % (0-1); Eosinophil# 0.08 X10^3/uL; Hematocrit 33.5 % (37-47); Hemoglobin 11.3 g/dL (12.0-15.0); Lymphocyte # 2.44 X10^3/ul (0.83-4.51); Lymphocyte % 31.1 % (19-41); Mean Corp Hgb Conc 33.7 g/dL (32-36); Mean Corpuscular Hgb 32.7 pg (27.0-32.0); Mean Corpuscular Volume 96.8 fL (81-99); Mean Platelet Vol. 10.6 fl (6.2-12.0); Monocyte# 0.47 X10^3/uL; NRBC Flagged by Analyzer 0 % (0-5); Neutrophil # 4.81 X10^3/uL (2.7-7.7); Neutrophil % 61.2 % (47-70); Platelet Count 202 K/mm3 (150-450); RBC Distribution Width CV 13.1 % (11.6-14.6); RBC Distribution Width SD 46.5 fl (35.1-43.9); Red Blood Count 3.46 M/mm3 (4.2-5.4); White Blood Count 7.9 K/mm3 (4.4-11.0)
[2023-02-08 05:15] LABS: Anion Gap 5 (5-15); BUN 18 mg/dL (7-18); BUN/Creat Ratio 21.3 RATIO (10-20); Calcium,Total 8.5 mg/dL (8.5-10.1); Chloride 115 mmol/L (98-107); Creatinine, Serum 0.84 mg/dL (0.55-1.02); EST Glomerular Filtration Rate 74 mL/min (>60); Est Glom Filt Rate - Afr Amer 89 mL/min (>60); Estimated Creatinine Clearance 70.01 ml/min; Glucose 194 mg/dL (74-106); Potassium 4.1 mmol/L (3.5-5.1); Sodium Level 140 mmol/L (136-145)
[2023-02-08] MEDS: Insulin Lispro 100 UNIT/ML INSULN.PEN SC ×4 (06:30→22:10)
[2023-02-08 06:49] LABS: Bedside Glucose 168 mg/dL (74-106)
[2023-02-08] MEDS: Gabapentin 100 MG Capsule PO ×2 (08:00→22:12)
[2023-02-08] MEDS: Ceftriaxone 1 GM/50 ML BAG IV (08:00)
[2023-02-08] MEDS: Topiramate 100 MG Tablet 200 MG PO ×2 (08:01→22:16)
[2023-02-08] MEDS: Pantoprazole Sodium 40 MG Tablet PO (08:01)
[2023-02-08] MEDS: carBAMazepine 200 MG Tablet PO ×2 (08:02→22:17)
[2023-02-08] MEDS: Aspirin 81 MG TAB.CHEW PO (08:02)
[2023-02-08] MEDS: Insulin Glargine-YFGN 100 UNIT/ML Pen 15 UNIT SC ×2 (08:03→22:11)
[2023-02-08] MEDS: Enoxaparin 40 MG/0.4 ML Syringe SC (08:03)
[2023-02-08] MEDS: Clopidogrel Bisulfate 75 MG Tablet PO (08:03)
[2023-02-08] MEDS: DULoxetine Hcl 60 MG Capsule PO (08:03)
[2023-02-08] MEDS: Nystatin Powder 15gm Bottle 1 APPLIC TOPICAL (08:04)
--- NOTE | 2023-02-08 10:57 | CASEMGMT ---
Per physician patient's family is requesting penitentiary facility placement. SW met with patient. Introduced self and role at [facility]. Patient said physician spoke with family and said patient needs to go somewhere for rehab. JAYA confirmed with patient she was just discharged from [facility] on 02-05. Patient does not want to return to [facility] or [facility]. SW provided patient with a list of penitentiary facility providers including quality and resource use data and consistent with patient?s preferred geographic region, medical needs, and insurance network were provided from the [employer]. JAYA told patient she and her family will need to pick a few places patient would like and SW will check on availability. SW also let patient know there is the possibility she could get denied by insurance since she was just cut from the correction at [facility]. JAYA explained we would not find out everything is submitted to insurance. Patient will look at the list with her sister. Joselin Wilkerson WET PAN OPERATOR RAVIN
[2023-02-08 11:27] LABS: Bedside Glucose 195 mg/dL (74-106)
--- NOTE | 2023-02-08 15:02 | CASEMGMT ---
SW met with patient her her request. Patient said her choice for SNF is [facility]. SW let patient know SW will make the referral and if there are any issues SW will let her know and she may have to pick another facility. JAYA sent a referral to [facility] via [facility]. Joselin ALICIA
--- NOTE | 2023-02-08 15:27 | CHAPLAIN ---
Type of Pastoral Visit _x__ Initial Visit ___ Follow-up Visit ___ On-call Visit ___ General Patient Visit ___ Spiritual Assessment ___ Family Conference ___ Bereavement ___ Rapid Response ___ Code Blue ___ Other (describe below) Pastoral Care Referral From _x__ Patient ___ Family ___ Nurse ___ Physician ___ First Aid Officer ___ Housekeeping Aide ___ Other (describe below) Sacrament/Intervention _x__ Active listening ___ Anointing ___ Orthodox ___ Bereavement ___ Communion _x__ Lisa exploration ___ _x__ Life review _x__ Prayer ___ Reconciliation ___ Sacrament of Sick _x__ Supportive presence ___ Wedding ___ Other (describe below) Pastoral Comments patient immediately states that she is not handling her situation very well emotionally and gives more details about her recent history and then goes into more past history; pt is tearful at times and unloads some of the emotions of this situation; pt identifies as a Amish with lisa and a relationship to God which is her steady source of strength; pt has a sister that is helpful to her; pt presents several spiritual questions as she deals with her health situation and past life history; presence and prayer welcomed
--- NOTE | 2023-02-08 15:41 | CASEMGMT ---
[facility] accepted patient. SW asked that they start the pre-cert. SW let patient know [facility] can accept her. Plan: [facility] pending pre-cert. Joselin ALICIA
[2023-02-08 16:32] LABS: Bedside Glucose 180 mg/dL (74-106)
--- NOTE | 2023-02-08 20:49 | PN.HOSP_ITS ---
Reason for Visit Reason for Visit: Diagnoses Transient cerebral ischemic attack, unspecified (02/06/23) Hypotension, unspecified (02/06/23) Urinary tract infection, site not specified (02/06/23) Subjective Subjective Patient was seen and examined today, she complained of some nausea today but otherwise had no specific complaints. We are waiting placement for the patient at a penitentiary facility for short-term rehab services. I have elected to change her to oral antibiotics today and stopped her IV antibiotics for her E. coli urine infection Objective Data Objective Data Vital Signs: Vital Signs Temp Pulse Resp BP Pulse Ox O2 Del Method 98.2 F 75 16 123/44 H 96 Room Air 02/08/23 16:23 02/08/23 16:23 02/08/23 16:23 02/08/23 16:23 02/08/23 16:23 02/08/23 16:23 Oxygen Delivery Method Room Air Weight: 93.5 kg Body Mass Index (BMI) 33.3 Intake & Output: Intake and Output for Last 24 Hours 02/06/23 02/07/23 02/08/23 23:59 23:59 23:59 Intake Total 3270 / 3270 1072.75 / 1072.75 410 / 410 Output Total 0 / 0 Balance 3270 / 3270 1072.75 / 1072.75 410 / 410 Lab / Micro Data 02/08/23 04:20 02/08/23 04:20 Labs: Laboratory Results - last 24 hr 02/07/23 22:00: POC Glucose 196 H 02/08/23 04:20: WBC 7.9, RBC 3.46 L, Hgb 11.3 L, Hct 33.5 L, MCV 96.8, MCH 32.7 H, MCHC 33.7, RDW Std Deviation 46.5 H, RDW Coeff of He 13.1, Plt Count 202, MPV 10.6, Immature Gran % (Auto) 0.300, Neut % (Auto) 61.2, Lymph % (Auto) 31.1, [place] % (Auto) 6.0, Eos % (Auto) 1.0, Baso % (Auto) 0.4, Absolute Neuts (auto) 4.8, Absolute Lymphs (auto) 2.44, Nucleated RBC % 0, Sodium 140, Potassium 4.1, Chloride 115 H, Carbon Dioxide 20.0 L, Anion Gap 5, BUN 18, Creatinine 0.84, Estim Creat Clear Calc 70.01, Est GFR (MDRD) Af Amer 89, Est GFR (MDRD) Non-Af 74, BUN/Creatinine Ratio 21.3 H, Glucose 194 H, Calcium 8.5 02/08/23 06:22: POC Glucose 168 H 02/08/23 11:06: POC Glucose 195 H 02/08/23 16:13: POC Glucose 180 H Micro: Microbiology 02/06/23 00:50 Urine, Catheterized Urine Culture - Final Escherichia coli 02/05/23 23:15 Blood Culture (Wb) - Arm Right Blood Culture - Preliminary No growth in 48 hours. 02/05/23 23:50 Blood Culture (Wb) - Anticubital Right Blood Culture - Preliminary No growth in 48 hours. Rhythm Strip Rhythm Strip: Sinus Rhythm Rate: 60 Ectopy: None Physical Exam Const alert and no apparent distress Constitutional Narrative: Patient appears older than her stated age General Appearance: cooperative, well kempt and well developed Orientation / Consciousness: awake, oriented to person and oriented to place HEENT normocephalic, head/scalp atraumatic and moist oral mucous membranes Eyes PERRL, EOMs intact bilaterally and conjunctivae normal Neck supple, no JVD, thyroid normal and no carotid bruits General: trachea midline Resp normal respiratory effort, no retractions, no use of accessory muscles and clear to auscultation bilaterally Auscultation: Negative for rales, rhonchi or wheezes Cardio regular rate, regular rhythm, S1 normal heart sound, S2 normal heart sound, no murmurs, no rub and no gallops GI normal to inspection, nondistended, normoactive bowel sounds, soft to palpation, non-tender and non-distended Extremity no clubbing, cyanosis or edema Skin no rashes or lesions noted General Skin Exam: no breakdown Neuro CN's II-XII intact bilaterally, moves all extremities, no focal motor deficits and no sensory deficits noted Sensorium / Orientation: awake, alert, oriented to person and oriented to place Speech: speech normal Psych affect normal Assessment & Plan Assessment/Plan (1) General weakness: PLAN: Plan 1. Acute encephalopathy-most likely secondary to polypharmacy and underlying acute cystitis-continue present care, PT and OT are seeing patient, she will need to go to an extended care facility for short-term rehab services #2 acute E. coli cystitis-I will change the patient over to oral Keflex #3 type 2 diabetes-patient's blood sugars will be monitored- sliding scale insulin be used as needed #4 chronic anxiety and depression-patient is on Ativan and Cymbalta #5 hyperlipidemia-patient is on a statin #6 seizure disorder-patient is on Topamax and Tegretol #7 acute debility secondary to #1-PT and OT are seeing patient, she will need temporary placement in a penitentiary facility for short-term rehab services Total clinical time spent by myself addressing the patient's medical issues, reviewing all of her data, and collaborating with patient's care team: 35 minutes Charges/Coding Visit Charges Inpatient E&M: 96846 Subs Hosp L2
[2023-02-08] MEDS: MELATONIN 3 MG TABLET 12 MG PO (22:12)
[2023-02-08] MEDS: Atorvastatin Calcium 80 MG Tablet PO (22:12)
[2023-02-08] MEDS: Gabapentin 400 MG Capsule PO (22:14)
[2023-02-09 02:19] VITALS: BMI 33.3
[2023-02-09 03:00] VITALS: BP 159/84; PULSE 62; RESP 18; TEMP 36.6; O2SAT 99
[2023-02-09 04:00] VITALS: BP 143/78; PULSE 69; RESP 16; TEMP 36.7; O2SAT 99
[2023-02-09 04:12] VITALS: BMI 32.8
[2023-02-09 06:28] LABS: Bedside Glucose 150 mg/dL (74-106)
[2023-02-09 07:44] VITALS: O2SAT 98
[2023-02-09 08:41] VITALS: BP 126/74; PULSE 62; RESP 16; TEMP 35.8; O2SAT 100
[2023-02-09] MEDS: Nystatin Powder 15gm Bottle 1 APPLIC TOPICAL (08:43)
[2023-02-09] MEDS: Topiramate 100 MG Tablet 200 MG PO (08:44)
[2023-02-09] MEDS: carBAMazepine 200 MG Tablet PO (08:44)
[2023-02-09] MEDS: Aspirin 81 MG TAB.CHEW PO (08:44)
[2023-02-09] MEDS: Clopidogrel Bisulfate 75 MG Tablet PO (08:44)
[2023-02-09] MEDS: DULoxetine Hcl 60 MG Capsule PO (08:44)
[2023-02-09] MEDS: Enoxaparin 40 MG/0.4 ML Syringe SC (08:44)
[2023-02-09] MEDS: Cephalexin 500 MG Capsule PO (08:44)
[2023-02-09] MEDS: Pantoprazole Sodium 40 MG Tablet PO (08:44)
[2023-02-09] MEDS: Gabapentin 100 MG Capsule PO (10:07)
[2023-02-09] MEDS: 0.9% Saline Lock 10 ML Syringe IV (10:13)
[2023-02-09] MEDS: proCHLORPERazine 10 MG/2 ML Vial 5 MG IV (10:13)
--- NOTE | 2023-02-09 11:37 | PCM.TXEXTCAR ---
Diet Diet Order/Speech Therapy: 02/06/23 04:00 Diet: Cardiac: Calorie-Controlled Food consistency:: Regular Liquid Consistency:: Regular/Thin Is pt able to select menu?: Yes How many daily calories?: 2000 calorie Routine Orders/Code Status Routine Lab Work: - (Fingerstick blood sugars AC nightly, Humalog subcu per sliding scale: 200-250: 5 units, 251-300: 8 units, 301-350: 12 units, 351-400: 15 units) Code Status: Full Code Wound(s) RAC: Wound Type: Puncture Therapies Weight Bearing: Full weight bearing Physical Therapy: Eval and Treat Occupational Therapy: Eval and Treat Problem/Diagnosis (1) General weakness: Status: Acute Code(s): R53.1 - Weakness Plan 1. Acute encephalopathy-most likely secondary to polypharmacy and underlying acute cystitis-continue present care, PT and OT are seeing patient, she will need to go to an extended care facility for short-term rehab services #2 acute E. coli cystitis-I will change the patient over to oral Keflex #3 type 2 diabetes-patient's blood sugars will be monitored- sliding scale insulin be used as needed #4 chronic anxiety and depression-patient is on Ativan and Cymbalta #5 hyperlipidemia-patient is on a statin #6 seizure disorder-patient is on Topamax and Tegretol #7 acute debility secondary to #1-PT and OT are seeing patient, she will need temporary placement in a group home facility for short-term rehab services Total clinical time spent by myself addressing the patient's medical issues, reviewing all of her data, and collaborating with patient's care team: 35 minutes Allergies/Procedures Done in Hospital Allergies latex Allergy (Verified 02/05/23 22:25) Rash levofloxacin [From Levaquin] Allergy (Verified 02/05/23 22:25) Hives ondansetron [From Zofran] Allergy (Verified 02/05/23 22:25) Hives nalbuphine [From Nubain] Adverse Reaction (Verified 02/05/23 22:25) Other Procedures: None Type of Care/Length of Stay Estimated LOS: Convalescent Care Less Than 30 days Type of Care Needed: Skilled Rehab Potential: Good Prognosis: Good Additional Orders/Day of Discharge H&P will serve as current which was dated: 02/06/23 Day of Discharge: 02/09/23 Dietary and Speech Recommendations Dietitian Recommendations/Changes: Continue with Cardiac: Calorie-Controlled diet for admission reason, yet will increase calorie goal to 2000kcal/day to better meet estimated nutrient needs. Pt not interested in ONS use to help increase oral intakes. Will continue to monitor oral intakes and modify interventions as needed. Speech Linguistic Eval Summary: Pt alert but drowsy upon arrival to tx session. Noted that pt's alertness fluctuated during evaluation. Pt oriented to name, , age, current location, current address (messed up numbers on zip code), current month, current year, current day of week, and current date. Pt able to spontaneously repeat words lemon, sexton, and ball appropriately. Pt demonstrated significant difficulty with divergent naming tasks. Pt was able to recall 1/3 words (lemon, sexton, and ball) given time delay, was able to recall one more additional word given semantic and phonetic cues (this word is a fruit, starts with the letter L). Pt was able to perform basic problem solving tasks/ numerical processing task with 100% accuracy. Pt tasked with story retelling and was able to do so with approx. 75% accuracy given minimal cuing. Pt became so drowsy that she was unable to complete any further Discharge Plan Admission Admit Date/Time: 02/06/23 02:57 Primary Reason for Your Visit: Acute encephalopathy. Acute stroke ruled out Attending Provider: Charbel Parra Primary Care Provider: Vi Eng Consulting Providers: Tia Sneed; Forrest Pascal Instructions Additional Instructions / Restrictions: Patient follows [facility] neurologist Dr. Pickens. As per patient it was not a problem but she can continue follow-up. Discharge Orders/Prescriptions Prescriptions: New cephalexin 500 mg capsule 500 mg PO TID 5 Days Qty: 15 0RF cephalexin 500 mg Capsule 500 mg PO Q12 Qty: 10 0RF Rx Instructions: Stop date 02/14/2023 Continued atorvastatin 80 mg tablet 80 mg PO QHS Patient Comments: TAKE ONE TABLET BY MOUTH DAILY AT 9PM AT BEDTIME furosemide 40 mg tablet 40 mg PO DAILY Hold Instructions: stop taking until your nausea and diarrhea are resolved Patient Comments: TAKE ONE TABLET BY MOUTH DAILY AT 9AM [id number]-fkmsghcowczmj-qdtr 50-325-40 mg Tablet 1 tab PO Q6H PRN (Reason: Headache) potassium chloride 20 mEq tablet,ER particles/crystals 20 meq PO DAILY Hold Instructions: Order Completed Patient Comments: TAKE ONE TABLET BY MOUTH DAILY AT 9AM lorazepam 0.5 mg Tablet 0.5 mg PO QHS PRN (Reason: anxietty) fluticasone propionate 50 mcg/actuation spray,suspension 1 spray INTRANASAL DAILY PRN (Reason: Check with primary doctor) Patient Comments: INSTILL 1 SPRAY INTO EACH NOSTRIL ONCE DAILY glipizide 5 mg tablet 5 mg PO BID Patient Comments: TAKE ONE TABLET BY MOUTH TWICE DAILY @ 9AM & 5PM before meals glucagon 1 mg Kit Hold Instructions: Pt is ill ipratropium-albuterol 0.5 mg-3 mg(2.5 mg base)/3 mL solution for nebulization 3 ml inhalation Q6H PRN (Reason: sob) Patient Comments: INHALE THREE ML DIRECTED EVERY 6 HOURS NEEDED (BULK) tizanidine 2 mg tablet 4 mg PO BID Patient Comments: TAKE ONE TABLET BY MOUTH TWICE DAILY NEEDED (VIAL) omeprazole 40 mg capsule,delayed release(DR/EC) 40 mg PO DAILY Patient Comments: TAKE ONE CAPSULE BY MOUTH DAILY AT 9AM gabapentin 800 mg tablet 800 mg PO QHS Patient Comments: TAKE ONE TABLET BY MOUTH DAILY AT 9PM AT BEDTIME carbamazepine 200 mg tablet extended release 12 hr 200 mg PO BID docusate sodium 100 mg Capsule 100 mg PO BID diclofenac sodium 75 mg tablet,delayed release (DR/EC) 75 mg PO BID PRN (Reason: pain) Patient Comments: TAKE ONE TABLET BY MOUTH TWICE DAILY NEEDED (VIAL) gabapentin 100 mg Capsule 100 mg PO BID insulin lispro 100 unit/mL solution See Protocol subcut ACHS Protocol: 6. Sliding Scale Insulin Custom Condition: mg/dl range Dose/Route: Number of Units Protocol Text: Custom Sliding Scale Patient Comments: INJECT PER SLIDING SCALE THREE TIMES DAILY FOLLOWS 2 UNITS 150-200, 4 UNITS 200-251, 6 UNITS 252-300, 8 UNITS 301-350, 10 UNITS 351-400, CALL MD OVER 400 (MAX 48 UNITS PER DAY) (BULK) albuterol sulfate 90 mcg/actuation HFA aerosol inhaler 90 inh INHALATION Q4H PRN PRN (Reason: Wheezing) Patient Comments: INHALE TWO PUFFS BY MOUTH DIRECTED EVERY 4 HOURS NEEDED FOR WHEEZING OR FOR SHORTNESS OF BREATH (BULK) topiramate 100 mg tablet 200 mg PO BID Patient Comments: TAKE ONE TABLET BY MOUTH THREE TIMES DAILY @9AM-3PM-9PM naratriptan [Amerge] 2.5 mg Tablet 2.5 mg PO Q4H PRN (Reason: migraines) Rx Instructions: do not exceed 2 doses per 24 hrs (DME) FreeStyle Es 2 Sensor Kit MISCELLANEOUS Patient Comments: apply 1 SENSOR to back OF UPPER ARM REMOVE AND REPLACE every 14 d... (REFER TO PRESCRIPTION NOTES). (DME) FreeStyle Es 2 [place] Misc MISCELLANEOUS Patient Comments: USE CONTINUOUSLY TO MONITOR BLOOD SUGARS DAILY (DME) Droplet Insulin Syr(half unit) 0.5 mL 31 gauge x 5/16 syringe MISCELLANEOUS Patient Comments: USE TO INJECT INSULIN UNDER THE SKIN EVERY MEAL AND AT BEDTIME PER SLIDING SCALE ergocalciferol (vitamin D2) 1,250 mcg (50,000 unit) capsule 50,000 unit PO MO Patient Comments: TAKE 1 CAPSULE BY MOUTH EVERY WEDNESDAY AT 9AM (VIAL) Rx Instructions: takes on mondays melatonin 12 mg Tablet 12 mg PO QHS promethazine 25 mg tablet 25 mg PO Q6H PRN PRN (Reason: Nausea) Qty: 12 0RF midodrine 5 mg tablet 5 mg PO TID Patient Comments: IF SBP <140 Rx Instructions: do not give last dose of day after 6PM or within 4 hrs of bedtime duloxetine [Cymbalta] 60 mg capsule,delayed release(DR/EC) 120 mg PO DAILY Nuedexta 20-10 mg capsule 1 cap PO DAILY Ubrelvy 100 mg tablet 100 mg PO .COMPLEX PRN (Reason: MIGRAINE) Rx Instructions: 100 mg orally 1 TABLET. IF NO IMPROVEMENT WITHIN 2 HRS 2 TABS. NOT TO EXCEED 2 TABS IN 24H PRN; Changed insulin glargine [Lantus U-100 Insulin] 100 unit/mL Solution 15 unit SUBCUT BID Qty: 10 2RF duloxetine 60 mg capsule,delayed release(DR/EC) 60 mg PO DAILY 30 Days Qty: 0 0RF Patient Comments: TAKE ONE CAPSULE BY MOUTH TWICE DAILY @ 9AM & 5PM Discontinued hydroxyzine HCl 25 mg tablet 50 mg PO QHS PRN (Reason: sleep) Hold Instructions: while needing to take new prescription nausea medication Patient Comments: TAKE ONE TABLET BY MOUTH THREE TIMES DAILY NEEDED (VIAL) meclizine 25 mg tablet 25 mg PO BID Hold Instructions: while needing to take new prescription nausea medication Patient Comments: TAKE ONE TABLET BY MOUTH TWICE DAILY @ 9AM & 5PM promethazine 25 mg tablet 25 mg PO Q6H PRN PRN (Reason: Nausea) Patient Comments: TAKE ONE-HALF TO 1 TABLET BY MOUTH EVERY 6 HOURS NEEDED (VIAL) Referrals / Follow Up: Vi Eng DO [Primary Care Provider] - Within 2 Weeks Disposition Disposition (needs filled in before D/C Order can be placed[facility]
--- NOTE | 2023-02-09 11:44 | DS.PCM_ITS ---
Providers Date of Admission: 02/06/23 Date of Discharge: 02/09/23 Primary Care Physician: Dr. Vi Eng, DO Reason For Visit: ENCEPHALOPATHY, UTI, TIA/CVA Diagnosis Discharge Diagnosis (1) General weakness: Status: Acute Code(s): R53.1 - Weakness Plan 1. Acute encephalopathy-most likely secondary to polypharmacy and underlying acute cystitis-continue present care, PT and OT are seeing patient, she will need to go to an extended care facility for short-term rehab services #2 acute E. coli cystitis-I will change the patient over to oral Keflex #3 type 2 diabetes-patient's blood sugars will be monitored- sliding scale insulin be used as needed #4 chronic anxiety and depression-patient is on Ativan and Cymbalta #5 hyperlipidemia-patient is on a statin #6 seizure disorder-patient is on Topamax and Tegretol #7 acute debility secondary to #1-PT and OT are seeing patient, she will need temporary placement in a residential facility for short-term rehab services Acute stroke or TIA was ruled out Total clinical time spent by myself addressing the patient's medical issues, reviewing all of her data, and collaborating with patient's care team: 35 minutes Medications at Discharge Home Medications albuterol sulfate 90 mcg/actuation aerosol inhaler 90 inh inhalation Q4H PRN PRN Wheezing 09/03/22 atorvastatin 80 mg tablet 80 mg PO QHS 09/03/22 ugqkcxxigj-icwgerkfucyfh-wlvrdvui 50 mg-325 mg-40 mg tablet 1 tab PO Q6H PRN Headache 09/03/22 carbamazepine 200 mg tablet,extended release,12 hr 200 mg PO BID 09/03/22 diclofenac sodium 75 mg tablet,delayed release 75 mg PO BID PRN pain 09/03/22 docusate sodium 100 mg capsule 100 mg PO BID CONSTIPATION 09/03/22 ergocalciferol (vitamin D2) 1,250 mcg (50,000 unit) capsule 50,000 unit PO MO Check with primary doctor 09/03/22 flash glucose scanning reader ([employer]Style Es 2 [place]) 09/03/22 flash glucose sensor (FreeStyle Es 2 Sensor kit) 09/03/22 fluticasone propionate 50 mcg/actuation nasal spray,suspension 1 spray intranasal DAILY PRN Check with primary doctor 09/03/22 furosemide 40 mg tablet 40 mg PO DAILY Check with primary doctor 09/03/22 gabapentin 100 mg capsule 100 mg PO BID 09/03/22 gabapentin 800 mg tablet 800 mg PO QHS 09/03/22 glipizide 5 mg tablet 5 mg PO BID Check with primary doctor 09/03/22 glucagon 1 mg injection kit mg Check with primary doctor 09/03/22 insulin lispro 100 unit/mL subcutaneous solution See Protocol subcut ACHS Check with primary doctor 09/03/22 insulin syr/ndl U100 half shirley 0.5 mL 31 gauge x 5/16 (Droplet Insulin Syringe (half unit)) 09/03/22 ipratropium 0.5 mg-albuterol 3 mg (2.5 mg base)/3 mL nebulization soln 3 ml inhalation Q6H PRN sob 09/03/22 lorazepam 0.5 mg tablet 0.5 mg PO QHS PRN anxietty 09/03/22 melatonin 12 mg tablet 12 mg PO QHS 09/03/22 naratriptan 2.5 mg tablet (Amerge) 2.5 mg PO Q4H PRN migraines 09/03/22 omeprazole 40 mg capsule,delayed release 40 mg PO DAILY 09/03/22 potassium chloride 20 mEq tablet,extended release(part/cryst) 20 meq PO DAILY NOT EVELINE 09/03/22 tizanidine 2 mg tablet 4 mg PO BID 09/03/22 topiramate 100 mg tablet 200 mg PO BID 09/03/22 promethazine 25 mg tablet 25 mg PO Q6H PRN PRN Nausea #12 TABLETS 11/08/22 midodrine 5 mg tablet 5 mg PO TID HYPOTENSION 02/05/23 dextromethorphan 20 mg-quinidine 10 mg capsule (Nuedexta) 1 cap PO DAILY D EPRESSION 02/06/23 duloxetine 60 mg capsule,delayed release (Cymbalta) 120 mg PO DAILY DEPRESSION 0 02/06/23 ubrogepant 100 mg tablet (Ubrelvy) 100 mg PO .COMPLEX PRN MIGRAINE 02/06/23 cephalexin 500 mg capsule 500 mg PO TID 5 days #15 caps 02/07/23 duloxetine 60 mg capsule,delayed release 60 mg PO DAILY 30 days #0 caps 02/07/23 insulin glargine 100 unit/mL subcutaneous solution (Lantus U-100 Insulin) 15 unit (0.15 mL) subcut BID Check with primary doctor #10 mL 02/07/23 cephalexin 500 mg capsule 500 mg PO Q12 #10 caps 02/09/23 Hospital Course Operations None Procedures None Summary of Care Provided Minutes Spent on Discharge: 31 Hospital Course: This 57-year-old white female was seen in the emergency room at [facility] after the family noted that she had weakness on her right side and slurred speech, EMS was called, there was a prehospital stroke alert activated, patient had recently been in a residential facility for rehab services and discharged home. Patient was a poor historian, on examination, her NIH score was 10, CT scan of the brain showed no evidence of hemorrhage or stroke, when she was reevaluated in the emergency room her NIH score was significantly lower. No thrombolytic therapy was indicated from teleneurology. There was felt to be no indication for transfer to a tertiary facility, lab work obtained included a UA which indicated the patient had a urinary tract infection, chest x-ray showed no acute cardiopulmonary process. Patient was admitted to PCU for possible stroke and a urinary tract infection, she was given IV antibiotics and seen by PT and OT as well as speech therapy. MRI of the brain was obtained which showed no evidence of stroke. Patient's family req uested the patient go back to a residential facility for a short course of inpatient rehab, patient agreed. On 02/09/2023, patient was seen and examined:alert and no apparent distress Constitutional Narrative: Patient appears older than her stated age General Appearance: cooperative, well kempt and well developed Orientation / Consciousness: awake, oriented to person and oriented to place HEENT normocephalic, head/scalp atraumatic and moist oral mucous membranes Eyes PERRL, EOMs intact bilaterally and conjunctivae normal Neck supple, no JVD, thyroid normal and no carotid bruits General: trachea midline Resp normal respiratory effort, no retractions, no use of accessory muscles and clear to auscultation bilaterally Auscultation: Negative for rales, rhonchi or wheezes Cardio regular rate, regular rhythm, S1 normal heart sound, S2 normal heart sound, no murmurs, no rub and no gallops GI normal to inspection, nondistended, normoactive bowel sounds, soft to palpation, non-tender and non-distended Extremity no clubbing, cyanosis or edema Skin no rashes or lesions noted General Skin Exam: no breakdown Neuro CN's II-XII intact bilaterally, moves all extremities, no focal motor deficits and no sensory deficits noted Sensorium / Orientation: awake, alert, oriented to person and oriented to place Speech: speech normal Psych affect normal Patient was discharged to an extended care facility on 02/09/2023 in stable condition. Weight / BMI Weight Weight: 92.3 kg Body Mass Index (BMI) 32.8 ABG / Lab / Microbiology Data 02/08/23 04:20 02/08/23 04:20 Laboratory: Laboratory Results - last 24 hr 02/08/23 16:13: POC Glucose 180 H 02/09/23 05:56: POC Glucose 150 H Microbiology: Microbiology 02/06/23 00:50 Urine, Catheterized Urine Culture - Final Escherichia coli 02/05/23 23:15 Blood Culture (Wb) - Arm Right Blood Culture - Preliminary No growth in 48 hours. 02/05/23 23:50 Blood Culture (Wb) - Anticubital Right Blood Culture - Preliminary No growth in 48 hours. D/C Instructions Discharge Diet: Low fat / Low cholesterol, 1800 Calorie Control Diet and 2000 mg Sodium Diet Weight Bearing Status: Weight bearing as tolerated Call your doctor if you observe: Fever of 101 or Higher, Coldness, Increased Pain, Numbness or Tingling, Change in Color, Inability to urinate, Inability to have a bowel movement, Using more than 1 pad per hour, Shortness of breath, Dizziness, Fainting spells, Swelling in the ankles, Chest pain, Prolonged hiccupping, Increased palpitations (irregular heartbeat) and Calf discomfort When: IN 2 WEEKS Meaningful Use Info Meaningful Use Diagnoses (Choose all that apply): None applicable Discharge Plan Admission Admit Date/Time: 02/06/23 02:57 Primary Reason for Your Visit: Acute encephalopathy. Acute stroke ruled out Attending Provider: Shirley Parra Primary Care Provider: Vi Eng Consulting Providers: Tia Sneed; Forrest Pascal Instructions Additional Instructions / Restrictions: Patient follows [facility] neurologist Dr. Pickens. As per patient it was not a problem but she can continue follow-up. Discharge Orders/Prescriptions Prescriptions: New cephalexin 500 mg capsule 500 mg PO TID 5 Days Qty: 15 0RF cephalexin 500 mg Capsule 500 mg PO Q12 Qty: 10 0RF Rx Instructions: Stop date 02/14/2023 Continued atorvastatin 80 mg tablet 80 mg PO QHS Patient Comments: TAKE ONE TABLET BY MOUTH DAILY AT 9PM AT BEDTIME furosemide 40 mg tablet 40 mg PO DAILY Hold Instructions: stop taking until your nausea and diarrhea are resolved Patient Comments: TAKE ONE TABLET BY MOUTH DAILY AT 9AM tntytatmwg-lildvgfdkjfbl-vukw 50-325-40 mg Tablet 1 tab PO Q6H PRN (Reason: Headache) potassium chloride 20 mEq tablet,ER particles/crystals 20 meq PO DAILY Hold Instructions: Order Completed Patient Comments: TAKE ONE TABLET BY MOUTH DAILY AT 9AM lorazepam 0.5 mg Tablet 0.5 mg PO QHS PRN (Reason: anxietty) fluticasone propionate 50 mcg/actuation spray,suspension 1 spray INTRANASAL DAILY PRN (Reason: Check with primary doctor) Patient Comments: INSTILL 1 SPRAY INTO EACH NOSTRIL ONCE DAILY glipizide 5 mg tablet 5 mg PO BID Patient Comments: TAKE ONE TABLET BY MOUTH TWICE DAILY @ 9AM & 5PM before meals glucagon 1 mg Kit Hold Instructions: Pt is ill ipratropium-albuterol 0.5 mg-3 mg(2.5 mg base)/3 mL solution for nebulization 3 ml inhalation Q6H PRN (Reason: sob) Patient Comments: INHALE THREE ML DIRECTED EVERY 6 HOURS NEEDED (BULK) tizanidine 2 mg tablet 4 mg PO BID Patient Comments: TAKE ONE TABLET BY MOUTH TWICE DAILY NEEDED (VIAL) omeprazole 40 mg capsule,delayed release(DR/EC) 40 mg PO DAILY Patient Comments: TAKE ONE CAPSULE BY MOUTH DAILY AT 9AM gabapentin 800 mg tablet 800 mg PO QHS Patient Comments: TAKE ONE TABLET BY MOUTH DAILY AT 9PM AT BEDTIME carbamazepine 200 mg tablet extended release 12 hr 200 mg PO BID docusate sodium 100 mg Capsule 100 mg PO BID diclofenac sodium 75 mg tablet,delayed release (DR/EC) 75 mg PO BID PRN (Reason: pain) Patient Comments: TAKE ONE TABLET BY MOUTH TWICE DAILY NEEDED (VIAL) gabapentin 100 mg Capsule 100 mg PO BID insulin lispro 100 unit/mL solution See Protocol subcut ACHS Protocol: 6. Sliding Scale Insulin Custom Condition: mg/dl range Dose/Route: Number of Units Protocol Text: Custom Sliding Scale Patient Comments: INJECT PER SLIDING SCALE THREE TIMES DAILY FOLLOWS 2 UNITS 150-200, 4 UNITS 200-251, 6 UNITS 252-300, 8 UNITS 301-350, 10 UNITS 351-400, CALL MD OVER 400 (MAX 48 UNITS PER DAY) (BULK) albuterol sulfate 90 mcg/actuation HFA aerosol inhaler 90 inh INHALATION Q4H PRN PRN (Reason: Wheezing) Patient Comments: INHALE TWO PUFFS BY MOUTH DIRECTED EVERY 4 HOURS NEEDED FOR WHEEZING OR FOR SHORTNESS OF BREATH (BULK) topiramate 100 mg tablet 200 mg PO BID Patient Comments: TAKE ONE TABLET BY MOUTH THREE TIMES DAILY @9AM-3PM-9PM naratriptan [Amerge] 2.5 mg Tablet 2.5 mg PO Q4H PRN (Reason: migraines) Rx Instructions: do not exceed 2 doses per 24 hrs (DME) FreeStyle Es 2 Sensor Kit MISCELLANEOUS Patient Comments: apply 1 SENSOR to back OF UPPER ARM REMOVE AND REPLACE every 14 d... (REFER TO PRESCRIPTION NOTES). (DME) FreeStyle Es 2 [place] Misc MISCELLANEOUS Patient Comments: USE CONTINUOUSLY TO MONITOR BLOOD SUGARS DAILY (DME) Droplet Insulin Syr(half unit) 0.5 mL 31 gauge x 5/16 syringe MISCELLANEOUS Patient Comments: USE TO INJECT INSULIN UNDER THE SKIN EVERY MEAL AND AT BEDTIME PER SLIDING SCALE ergocalciferol (vitamin D2) 1,250 mcg (50,000 unit) capsule 50,000 unit PO MO Patient Comments: TAKE 1 CAPSULE BY MOUTH EVERY WEDNESDAY AT 9AM (VIAL) Rx Instructions: takes on mondays melatonin 12 mg Tablet 12 mg PO QHS promethazine 25 mg tablet 25 mg PO Q6H PRN PRN (Reason: Nausea) Qty: 12 0RF midodrine 5 mg tablet 5 mg PO TID Patient Comments: IF SBP <140 Rx Instructions: do not give last dose of day after 6PM or within 4 hrs of bedtime duloxetine [Cymbalta] 60 mg capsule,delayed release(DR/EC) 120 mg PO DAILY Nuedexta 20-10 mg capsule 1 cap PO DAILY Ubrelvy 100 mg tablet 100 mg PO .COMPLEX PRN (Reason: MIGRAINE) Rx Instructions: 100 mg orally 1 TABLET. IF NO IMPROVEMENT WITHIN 2 HRS 2 TABS. NOT TO EXCEED 2 TABS IN 24H PRN; Changed insulin glargine [Lantus U-100 Insulin] 100 unit/mL Solution 15 unit SUBCUT BID Qty: 10 2RF duloxetine 60 mg capsule,delayed release(DR/EC) 60 mg PO DAILY 30 Days Qty: 0 0RF Patient Comments: TAKE ONE CAPSULE BY MOUTH TWICE DAILY @ 9AM & 5PM Discontinued hydroxyzine HCl 25 mg tablet 50 mg PO QHS PRN (Reason: sleep) Hold Instructions: while needing to take new prescription nausea medication Patient Comments: TAKE ONE TABLET BY MOUTH THREE TIMES DAILY NEEDED (VIAL) meclizine 25 mg tablet 25 mg PO BID Hold Instructions: while needing to take new prescription nausea medication Patient Comments: TAKE ONE TABLET BY MOUTH TWICE DAILY @ 9AM & 5PM promethazine 25 mg tablet 25 mg PO Q6H PRN PRN (Reason: Nausea) Patient Comments: TAKE ONE-HALF TO 1 TABLET BY MOUTH EVERY 6 HOURS NEEDED (VIAL) Referrals / Follow Up: Vi Eng DO [Primary Care Provider] - Within 2 Weeks Disposition Disposition (needs filled in before D/C Order can be placed): [facility] Facility Charges/Coding Visit Charges Inpatient E&M: 41324 Disch Hosp >30min
--- NOTE | 2023-02-09 12:23 | CASEMGMT ---
Patient was approved to go to [facility]. JAYA notified physician. JAYA completed a 7000 in [employer] system. JAYA called Physicians and arranged for patient to get picked up at 230 via wheelchair van. JAYA notified patient, RN, typing secretary, and [facility]. JAYA sent orders and pickle maker time to [facility] via [employer]. All in agreement with d/c plan. Plan: d/c to [facility] under skilled level of care on a convalescent stay. Physicians will transport patient via wheelchair van. Joselin Wilkerson BIOLOGICAL TECHNICAL OFFICERFuentes ALICIA
[2023-02-09 12:44] LABS: Bedside Glucose 278 mg/dL (74-106)
[2023-02-09] MEDS: Acetaminophen/Butalbital/Caffe 1 Tablet PO (13:17)
[2023-02-09] MEDS: Insulin Glargine-YFGN 100 UNIT/ML Pen 15 UNIT SC (13:18)
[2023-02-09] MEDS: Insulin Lispro 100 UNIT/ML INSULN.PEN SC (13:18)
[2023-02-09 13:38] VITALS: BMI 32.8
[2023-02-09 14:50] VITALS: BP 128/75; PULSE 68; RESP 16; TEMP 36.1; O2SAT 100
--- NOTE | 2023-02-09 15:08 | NURSING ---
Report called to Héctor PADILLA at [facility]
== END 2023-02-09 16:18 | DRG 689 ==
LOC: ED 02-06 02:33 → PCU 02-06 03:10
PROVIDERS: Internal Medicine; Admitting Provider Family Medicine; Emergency Provider Emergency Medicine; PCP Family Medicine; Visit Provider Internal Medicine
DX: N30.00 Acute cystitis without hematuria (principal); G92.8 Other toxic encephalopathy; G93.49 Other encephalopathy; I69.354 Hemiplegia and hemiparesis following cerebral infarction affecting left non-dominant side; E11.40 Type 2 diabetes mellitus with diabetic neuropathy, unspecified; B96.20 Unspecified Escherichia coli [E. coli] as the cause of diseases classified elsewhere; E66.9 Obesity, unspecified; G40.909 Epilepsy, unspecified, not intractable, without status epilepticus; Z79.4 Long term (current) use of insulin; E78.00 Pure hypercholesterolemia, unspecified; F32.A Depression, unspecified; G43.709 Chronic migraine without aura, not intractable, without status migrainosus; I65.23 Occlusion and stenosis of bilateral carotid arteries; I10 Essential (primary) hypertension; F41.9 Anxiety disorder, unspecified; I95.1 Orthostatic hypotension; J30.9 Allergic rhinitis, unspecified; K21.9 Gastro-esophageal reflux disease without esophagitis; R53.81 Other malaise; Z68.33 Body mass index [BMI] 33.0-33.9, adult; Z79.84 Long term (current) use of oral hypoglycemic drugs; Z79.899 Other long term (current) drug therapy; Z86.16 Personal history of COVID-19; Z87.891 Personal history of nicotine dependence
CPT/HCPCS: 36415; 70450; 70496; 70498; 70553; 71045; 72156; 80048; 80053; 80061; 81001; 82962; 83036; 83605; 83735; 84443; 84484; 85025; 85610; 85730; 87040; 87077; 87086; 87088; 87186; 92523; 93005; 94668; 94762; 97129; 97130; 97162; 97166; 97530; 97535; 97802; 99252; 99285; A9575; J7030; J7050; Q9967; A4216; G0463

== ENCOUNTER → 2023-02-22 | Outpatient (REF) | payer MEDICARE, MEDICAID, SELFPAY ==
[2023-02-22 09:34] LABS: Hematocrit 39.3 % (37-47); Hemoglobin 12.6 g/dL (12.0-15.0); Mean Corp Hgb Conc 32.1 g/dL (32-36); Mean Corpuscular Hgb 32.1 pg (27.0-32.0); Mean Platelet Vol. 10.9 fl (6.2-12.0); Platelet Count 259 K/mm3 (150-450); RBC Distribution Width CV 13.2 % (11.6-14.6); RBC Distribution Width SD 49.2 fl (35.1-43.9); Red Blood Count 3.93 M/mm3 (4.2-5.4); White Blood Count 7.8 K/mm3 (4.4-11.0)
[2023-02-22 09:50] LABS: Anion Gap 7 (5-15); BUN 26 mg/dL (7-18); BUN/Creat Ratio 28.4 RATIO (10-20); Calcium,Total 8.9 mg/dL (8.5-10.1); Chloride 109 mmol/L (98-107); Creatinine, Serum 0.92 mg/dL (0.55-1.02); EST Glomerular Filtration Rate 67 mL/min (>60); Est Glom Filt Rate - Afr Amer 82 mL/min (>60); Glucose 228 mg/dL (74-106); Magnesium 2.2 mg/dL (1.6-2.6); Potassium 4.1 mmol/L (3.5-5.1); Sodium Level 140 mmol/L (136-145)
== END ==
LOC: OLS.SW 05:00
PROVIDERS: PCP Family Medicine; Visit Provider Family Medicine
DX: E11.9 Type 2 diabetes mellitus without complications (principal); G93.40 Encephalopathy, unspecified
CPT/HCPCS: 36415; 80048; 83735; 85027

== ENCOUNTER → 2023-03-16 | Outpatient (REF) | payer MEDICARE, MEDICAID, SELFPAY ==
[2023-03-16 09:43] LABS: Absolute Lymphocyte Count 2.62 X10^3/uL (0.83-4.51); Absolute Neutrophil Count 5.4 X10^3/uL (2.0-7.7); Basophil# 0.05 X10^3/uL; Basophil% 0.6 % (0-1); Eosinophil# 0.12 X10^3/uL; Eosinophils% 1.3 % (0-5); Hematocrit 35.7 % (37-47); Hemoglobin 11.4 g/dL (12.0-15.0); Lymphocyte # 2.62 X10^3/ul (0.83-4.51); Lymphocyte % 29.4 % (19-41); Mean Corp Hgb Conc 31.9 g/dL (32-36); Mean Corpuscular Hgb 32.1 pg (27.0-32.0); Mean Corpuscular Volume 100.6 fL (81-99); Mean Platelet Vol. 11.1 fl (6.2-12.0); Monocyte% 7.9 % (0-10); NRBC Flagged by Analyzer 0 % (0-5); Neutrophil # 5.37 X10^3/uL (2.7-7.7); Neutrophil % 60.4 % (47-70); Platelet Count 230 K/mm3 (150-450); RBC Distribution Width CV 13.2 % (11.6-14.6); RBC Distribution Width SD 49.8 fl (35.1-43.9); Red Blood Count 3.55 M/mm3 (4.2-5.4); White Blood Count 8.9 K/mm3 (4.4-11.0)
== END ==
LOC: OLS.SW 07:35
PROVIDERS: PCP Family Medicine; Referring Provider Internal Medicine; Visit Provider Internal Medicine
DX: E11.9 Type 2 diabetes mellitus without complications (principal); Z79.899 Other long term (current) drug therapy
CPT/HCPCS: 36415; 85025

== ENCOUNTER → 2023-03-18 | Outpatient (REF) | payer MEDICARE, MEDICAID, SELFPAY | LOC: OLS.SW 05:15 | PROVIDERS: PCP Family Medicine; Visit Provider Internal Medicine | DX: J02.9 Acute pharyngitis, unspecified (principal) | CPT/HCPCS: 87880 ==

== ENCOUNTER 2023-05-30 19:25 | Observation (INO) | payer MEDICARE, MEDICAID, SELFPAY ==
[2023-05-30 19:27] VITALS: BP 134/82; PULSE 83; RESP 16; TEMP 36.7; O2SAT 96
--- NOTE | 2023-05-30 19:35 | CT_ITS ---
INDICATION: trauma EXAMINATION: CT BRAIN - CT Head or Brain W/O Contrast Injection TECHNIQUE: Multiple axial images were obtained of the head without intravenous contrast. A radiation dose optimization technique was used for this scan. IV Contrast dosage and agent: None. COMPARISON: February 05, 2023 FINDINGS: Stable cortical and central involutional change. Stable ventricular system. Intact basal ganglia. There is no mass, mass effect or acute intracranial hemorrhage. Almodovar-white differentiation within normal limits. There is no acute intra or extra-axial fluid collection identified. The bony calvarium is intact. Mastoid air cells are clear. Paranasal sinuses are clear. Intact orbits. No nasal bone fracture. CT/Brain/Head without Contrast IMPRESSION: No acute intracranial abnormality identified. No significant change from prior study. Electronically Signed: Corby Vann MD at 21:35 EST ,
--- NOTE | 2023-05-30 19:38 | ED.VIS.FALL ---
HPI HPI - Fall History of Present Illness Chief Complaint: Fall Informant: patient and EMS Narrative Narrative: 57-year-old female with a history of seizures, has had 3 falls in the past 24 hours. She states the first 1 was last night, she states she was using her cane to walk back to her room from the bathroom, and she woke up on the floor, out of concern for possibly having a seizure. She states she has them on the average every 3 to 5 months. She has had a headache ever since then, she frequently has headaches after seizures. Does not know if she injured anything. Today she had 2 falls, she had no lapses in time or consciousness with any of them and does not suspect she had a seizure today but states that she was walking both times, her legs felt shaky and tremulous, which caused her to fall. During 1 of these falls she injured her left low back and during the other her right knee. She states a fall a week ago caused her to injure her left foot. After the knee injury today she has been able to ambulate but it hurts. She has been vomiting off-and-on today and having diarrhea. She denies abdominal pain. Denies any fevers or chills. She states she is a diabetic and has not been able to keep much in the way of food or liquid in today. EMS states her blood sugar was 57 when they checked it en-route. Patient is very poor historian, but keenly alert and able to provide history. She states she has not taken her nighttime medications yet, it is 1930 and she usually takes them right before bed. [facility] Medical History Allergic rhinitis Brain TIA Chronic migraine Diabetes mellitus, type 2 Former tobacco use GERD (gastroesophageal reflux disease) History of CVA (cerebrovascular accident) HTN (hypertension) Hypercholesterolemia Obesity Orthostasis Psoriasis Seizure disorder Transient hypotension Home Medications albuterol sulfate 90 mcg/actuation aerosol inhaler 90 inh inhalation Q4H PRN PRN Wheezing 09/03/22 [History Last Taken Unknown] atorvastatin 80 mg tablet 80 mg PO QHS 09/03/22 [History Last Taken Unknown] vozzsmiokq-cakljhaaqpdex-ejbvyuzt 50 mg-325 mg-40 mg tablet 1 tab PO Q6H PRN Headache 09/03/22 [History Last Taken Unknown] carbamazepine 200 mg tablet,extended release,12 hr 200 mg PO BID 09/03/22 [History Last Taken Unknown] diclofenac sodium 75 mg tablet,delayed release 75 mg PO BID PRN pain 09/03/22 [History Last Taken Unknown] docusate sodium 100 mg capsule 100 mg PO BID CONSTIPATION 09/03/22 [History Last Taken Unknown] ergocalciferol (vitamin D2) 1,250 mcg (50,000 unit) capsule 50,000 unit PO MO Check with primary doctor 09/03/22 [History Last Taken Unknown] flash glucose scanning reader (InkviteStyle Es 2 [place]) 09/03/22 [History Last Taken Unknown] flash glucose sensor (InkviteStyle Es 2 Sensor kit) 09/03/22 [History Last Taken Unknown] fluticasone propionate 50 mcg/actuation nasal spray,suspension 1 spray intranasal DAILY PRN Check with primary doctor 09/03/22 [History Last Taken Unknown] furosemide 40 mg tablet 40 mg PO DAILY Check with primary doctor 09/03/22 [History Last Taken Unknown] gabapentin 100 mg capsule 100 mg PO BID 09/03/22 [History Last Taken Unknown] gabapentin 800 mg tablet 800 mg PO QHS 09/03/22 [History Last Taken Unknown] glipizide 5 mg tablet 5 mg PO BID Check with primary doctor 09/03/22 [History Last Taken Unknown] glucagon 1 mg injection kit mg Check with primary doctor 09/03/22 [History Last Taken Unknown] insulin lispro 100 unit/mL subcutaneous solution See Protocol subcut ACHS Check with primary doctor 09/03/22 [History Last Taken Unknown] insulin syr/ndl U100 half shirley 0.5 mL 31 gauge x 5/16 (Droplet Insulin Syringe (half unit)) 09/03/22 [History Last Taken Unknown] ipratropium 0.5 mg-albuterol 3 mg (2.5 mg base)/3 mL nebulization soln 3 ml inhalation Q6H PRN sob 09/03/22 [History Last Taken Unknown] lorazepam 0.5 mg tablet 0.5 mg PO QHS PRN anxietty 09/03/22 [History Last Taken Unknown] melatonin 12 mg tablet 12 mg PO QHS 09/03/22 [History Last Taken Unknown] naratriptan 2.5 mg tablet (Amerge) 2.5 mg PO Q4H PRN migraines 09/03/22 [History Last Taken Unknown] omeprazole 40 mg capsule,delayed release 40 mg PO DAILY 09/03/22 [History Last Taken Unknown] potassium chloride 20 mEq tablet,extended release(part/cryst) 20 meq PO DAILY NOT EVELINE 09/03/22 [History Last Taken Unknown] tizanidine 2 mg tablet 4 mg PO BID 09/03/22 [History Last Taken Unknown] topiramate 100 mg tablet 200 mg PO BID 09/03/22 [History Last Taken Unknown] promethazine 25 mg tablet 25 mg PO Q6H PRN PRN Nausea #12 TABLETS 11/08/22 [Rx Last Taken Unknown] midodrine 5 mg tablet 5 mg PO TID HYPOTENSION 02/05/23 [History Last Taken Unknown] dextromethorphan 20 mg-quinidine 10 mg capsule (Nuedexta) 1 cap PO DAILY DEPRESSION 02/06/23 [History Last Taken Unknown] duloxetine 60 mg capsule,delayed release (Cymbalta) 120 mg PO DAILY DEPRESSION 02/06/23 [History Last Taken Unknown] ubrogepant 100 mg tablet (Ubrelvy) 100 mg PO .COMPLEX PRN MIGRAINE 02/06/23 [History Last Taken Unknown] cephalexin 500 mg capsule 500 mg PO TID 5 days #15 caps 02/07/23 [Rx Last Taken Unknown] duloxetine 60 mg capsule,delayed release 60 mg PO DAILY 30 days #0 caps 02/07/23 [Rx Last Taken Unknown] insulin glargine 100 unit/mL subcutaneous solution (Lantus U-100 Insulin) 15 unit (0.15 mL) subcut BID Check with primary doctor #10 mL 02/07/23 [Rx Last Taken Unknown] cephalexin 500 mg capsule 500 mg PO Q12 #10 caps 02/09/23 [Rx Last Taken Unknown] nitrofurantoin monohydrate/macrocrystals 100 mg capsule 100 mg PO Q12 #10 CAPSULES 05/30/23 [Rx Last Taken Unknown] Allergy/AdvReac Type Severity Reaction Status Date / Time latex Allergy Rash Verified 02/05/23 22:25 levofloxacin [From Levaquin] Allergy Hives Verified 02/05/23 22:25 ondansetron [From Zofran] Allergy Hives Verified 02/05/23 22:25 nalbuphine [From Nubain] AdvReac Other Verified 02/05/23 22:25 Family History Father Cancer Mother Cancer Surgical History Hx of cholecystectomy Hx of tonsillectomy Hx of tubal ligation Social History household members: none housing: other details: Recent transition from Assisted Living to home. Smoking Status: Former smoker alcohol intake: never substance use type: does not use ROS ROS ED Constitutional Constitutional ED: Reports weakness; Denies chills or fever(s) Eyes Eyes: Denies change in vision or diplopia ENT ENT ED: Denies rhinorrhea or sore throat Cardiovascular Cardiovascular: Denies chest pain or palpitations Respiratory/Chest Respiratory/Chest: Denies cough or dyspnea Gastrointestinal Gastrointestinal: Reports diarrhea, nausea and vomiting; Denies abdominal pain Genitourinary Genitourinary ED: Denies dysuria or hematuria Musculoskeletal Musculoskeletal: Reports back pain and extremity pain; Denies neck pain Integumentary Reports Abrasions; Denies abscess or rash Neurologic Neurologic: Reports as per HPI, frequent falls, headache(s) and tremor(s); Denies loss of vision, paresthesias or weakness Psychiatric Psychiatric: Denies anxiety or suicidal thoughts EXAM Physical Exam Const Vital Signs: 05/30/23 19:27 05/30/23 19:49 05/30/23 21:27 Temperature 98.1 F Temperature Source Oral Pulse Rate 83 66 Respiratory Rate 16 14 Respiratory Effort Normal Respiratory Depth Normal Respiratory Pattern Normal Blood Pressure 134/82 H Blood Pressure Mean 99 Pulse Ox 96 96 100 Oxygen Delivery Method Room Air Room Air Room Air 05/30/23 23:00 Temperature Temperature Source Pulse Rate 70 Respiratory Rate 16 Respiratory Effort Respiratory Depth Respiratory Pattern Blood Pressure 134/82 H Blood Pressure Mean 99 Pulse Ox 96 Oxygen Delivery Method Room Air Positive well nourished, well developed and obese General Appearance ED: well developed and NAD Nutritional Appearance: obese HEENT Reports TM's normal bilaterally and moist mucous membranes normocephalic and atraumatic Eyes PERRL and EOMs intact bilaterally Neck full ROM and supple General: Negative for tenderness Chest Wall inspection of chest normal and palpation of chest normal Resp normal respiratory effort and clear to auscultation bilaterally Cardio regular rate, regular rhythm and no murmurs GI non-tender and non-distended Auscultation: normoactive bowel sounds Palpation: soft Back/Spine no CVA tenderness Back/Spine Narrative: Tenderness in the mid-low back, basically in the area of the left-sided ribs 9-11. No crepitance, no deformity no outward signs of trauma. No subcutaneous emphysema. Equal breath sounds are heard bilaterally. She does not splint with deep inspiration. There is no midline spinal tenderness and she is able to sit up without significant comfort. General Back: other FROM Extremity normal to inspection Extremity Narrative: Tenderness to the right tibial tuberosity, no knee effusion, full range of motion, no other bony tenderness. All ligaments stable with short endpoints and no significant pain or laxity on stressing. This includes negative anterior and posterior drawer signs. Also tender dorsally about the left foot MTPJs 2-4. No deformity or signs of trauma there. Otherwise, extremity exam is very benign full range of motion and no other bony tenderness. General Extremety ED: Negative for edema or pulses abnormal General Extremity: Negative for edema or pulses abnormal Neuro oriented x3, CN's II-XII intact bilaterally and no sensory deficits noted Sensorium / Orientation: awake and alert Motor Exam: general weakness Psych mental status grossly normal and thought process normal Skin Skin Narrative: Abrasion to the right tibial tuberosity, no lacerations or signs of trauma otherwise. No rashes. No petechiae or purpura. MDM MDM MDM Narrative Medical decision making narrative: Patient's blood sugar on recheck upon arrival is 32. She is alert, she is given orange juice while we worked her up as well as IV fluids, Tylenol, Reglan since she has an allergy to Zofran. This did help some, she had no more vomiting although she still felt a little nauseated, her sugar came up to 72, she was able to tolerate crackers later. Work-up is as follows: Mild leukocytosis which may be consistent with viral gastroenteritis which is what her symptoms suggest, likely low bicarb level likely due to diarrhea, elevated BUN, with prerenal azotemia likely due to mild dehydration due to vomiting and diarrhea although she has been drinking plenty of fluids probably not keeping up enough. Probably contributing to her weakness. Urine shows possible infection with small amount of white blood cells, leukocyte esterase, and bacteria. We will treat this empirically since it can cause breakthrough seizures, her carbamazepine level is within normal limits, this was done before we gave her her nighttime dose so it was more like a trough, I do not think she needs to have a change in her dose based on this, she was given a nighttime dose here and did not have any seizure activity while in the emergency department. CT of the head was obtained given the possibility of head trauma and having a headache with vomiting, in order to rule out intracranial hemorrhage. This was negative. I reviewed the images and the report and I agree with it. 5 view x-ray series of the left rib cage negative on my interpretation for fracture, radiology in agreement. Three-view x-ray of the left foot on my interpretation negative for acute fracture, radiology in agreement. 4 view x-ray series of the right knee on my interpretation negative for fracture radiology in agreement. We initially offered admission for her multiple issues but she declines and preferred to go home. We attempted to ambulate her, she was very unsteady and staff states she would have fell if they hadn't been there to assist her. She wants to stay due to this, she was unsteady like this all day today, causing her to fall several times. Discussed w/ Hospitalist. Lab Data Attestation: I reviewed the patient's lab results. Labs: Laboratory Results - last 24 hr 05/30/23 05/30/23 05/30/23 19:37 19:55 20:30 WBC RBC Hgb Hct MCV MCH MCHC RDW Std Deviation RDW Coeff of He Plt Count MPV Immature Gran % (Auto) Neut % (Auto) Lymph % (Auto) Walker % (Auto) Eos % (Auto) Baso % (Auto) Absolute Neuts (auto) Absolute Lymphs (auto) Nucleated RBC % Sodium Potassium Chloride Carbon Dioxide Anion Gap BUN Creatinine Est GFR (MDRD) Af Amer Est GFR (MDRD) Non-Af BUN/Creatinine Ratio Glucose Calcium Troponin I High Sens Urine Color Urine Clarity Urine pH Ur Specific [place] Urine Protein Urine Glucose (UA) Urine Ketones Urine Occult Blood Urine Nitrite Urine Bilirubin Urine Urobilinogen Ur Leukocyte Esterase Urine RBC Urine WBC Ur Squamous Epith Cells Urine Bacteria Urine Mucus Carbamazepine POC Glucose 31 L* 39 L* 72 L 05/30/23 05/30/23 20:50 22:00 WBC 12.1 H RBC 3.40 L Hgb 10.6 L Hct 32.8 L MCV 96.5 MCH 31.2 MCHC 32.3 RDW Std Deviation 47.6 H RDW Coeff of He 13.4 Plt Count 215 MPV 11.1 Immature Gran % (Auto) 0.800 Neut % (Auto) 81.6 H Lymph % (Auto) 11.2 L Walker % (Auto) 5.7 Eos % (Auto) 0.3 Baso % (Auto) 0.4 Absolute Neuts (auto) 9.9 H Absolute Lymphs (auto) 1.35 Nucleated RBC % 0 Sodium 141 Potassium 4.6 Chloride 115 H Carbon Dioxide 19.0 L Anion Gap 7 BUN 36 H Creatinine 0.88 Est GFR (MDRD) Af Amer 85 Est GFR (MDRD) Non-Af 70 BUN/Creatinine Ratio 40.9 H Glucose 135 H Calcium 8.6 Troponin I High Sens 5 Urine Color Yellow Urine Clarity Clear Urine pH 6.0 Ur Specific [place] 1.020 Urine Protein Negative Urine Glucose (UA) Normal Urine Ketones Negative Urine Occult Blood Negative Urine Nitrite Negative Urine Bilirubin 1 H Urine Urobilinogen 1 H Ur Leukocyte Esterase 100 H Urine RBC 0 SEEN Urine WBC 5-10 SEEN Ur Squamous Epith Cells 0-5 SEEN Urine Bacteria 2+ Urine Mucus 0 SEEN Carbamazepine 7.3 POC Glucose Radiography Diagnostic Testing: Clinical Impression(s) from Imaging Studies Brain CT 05/30/23 19:35 IMPRESSION: No acute intracranial abnormality identified. No significant change from prior study. Electronically Signed: Corby Vann MD at 21:35 EST , Foot X-Ray 05/30/23 21:40 IMPRESSION: No traumatic osseous or soft tissue injury exemplified. Posterior and inferior calcaneal spurs. Electronically Signed: Pelon Hernandez DO at 22:20 EST , Knee X-Ray 05/30/23 21:40 IMPRESSION: Negative. Electronically Signed: Pelon Hernandez DO at 22:21 EST , Ribs w/Chest X-Ray 05/30/23 21:40 IMPRESSION: No evidence of a left rib fracture. Electronically Signed: Tha Roach, DO at 22:23 EST , Management Discussion w/another healthcare provider: Hospitalist Discharge Plan Triage Chief Complaint: Fall ED Provider: King Lambert Dx/Rx/DC Orders Clinical Impression: Acute dehydration, Breakthrough seizure, UTI (urinary tract infection), Hx of seizure disorder, Contusion of knee, right, Gastroenteritis, Contusion of foot, left, Debility Primary Care Provider: Vi Eng Disposition Disposition: Home, Self Care
[2023-05-30 19:49] VITALS: O2SAT 96
[2023-05-30 20:31] LABS: Bedside Glucose 31 mg/dL (74-106)
[2023-05-30 20:31] LABS: Bedside Glucose 39 mg/dL (74-106)
[2023-05-30 20:49] LABS: Bedside Glucose 72 mg/dL (74-106)
[2023-05-30 21:05] LABS: Absolute Lymphocyte Count 1.35 X10^3/uL (0.83-4.51); Absolute Neutrophil Count 9.9 X10^3/uL (2.0-7.7); Basophil# 0.05 X10^3/uL; Basophil% 0.4 % (0-1); Eosinophil# 0.04 X10^3/uL; Eosinophils% 0.3 % (0-5); Hematocrit 32.8 % (37-47); Hemoglobin 10.6 g/dL (12.0-15.0); Lymphocyte # 1.35 X10^3/ul (0.83-4.51); Lymphocyte % 11.2 % (19-41); Mean Corp Hgb Conc 32.3 g/dL (32-36); Mean Corpuscular Hgb 31.2 pg (27.0-32.0); Mean Corpuscular Volume 96.5 fL (81-99); Mean Platelet Vol. 11.1 fl (6.2-12.0); Monocyte# 0.69 X10^3/uL; Monocyte% 5.7 % (0-10); NRBC Flagged by Analyzer 0 % (0-5); Neutrophil # 9.87 X10^3/uL (2.7-7.7); Neutrophil % 81.6 % (47-70); POSITIVE COUNT YES; Platelet Count 215 K/mm3 (150-450); RBC Distribution Width CV 13.4 % (11.6-14.6); RBC Distribution Width SD 47.6 fl (35.1-43.9); White Blood Count 12.1 K/mm3 (4.4-11.0)
[2023-05-30] MEDS: Acetaminophen 500 MG Tablet 1000 MG PO (21:11)
[2023-05-30] MEDS: 0.9% Normal Saline (1000mL) 1,000 ML 200 ML IV (21:11)
[2023-05-30] MEDS: Metoclopramide 10 MG/2 ML Vial 5 MG IV (21:12)
[2023-05-30 21:23] LABS: Carbamazepine (Tegretol) 7.3 ug/mL (4.0-12.0)
[2023-05-30 21:24] LABS: Anion Gap 7 (5-15); BUN 36 mg/dL (7-18); BUN/Creat Ratio 40.9 RATIO (10-20); Calcium,Total 8.6 mg/dL (8.5-10.1); Chloride 115 mmol/L (98-107); Creatinine, Serum 0.88 mg/dL (0.55-1.02); EST Glomerular Filtration Rate 70 mL/min (>60); Est Glom Filt Rate - Afr Amer 85 mL/min (>60); Glucose 135 mg/dL (74-106); Potassium 4.6 mmol/L (3.5-5.1); Sodium Level 141 mmol/L (136-145); Troponin-I HS 5 pg/mL (3.0-54.0)
[2023-05-30 21:27] VITALS: PULSE 66; RESP 14; O2SAT 100
--- NOTE | 2023-05-30 21:40 | RAD_ITS ---
INDICATION: pain/injury EXAMINATION/TECHNIQUE: X-RAY - LEFT XR Foot Min 3 Views 3 VIEWS COMPARISON: No relevant prior comparison studies available. FINDINGS: SOFT TISSUES: No soft tissue swelling or gas. No radiopaque foreign body. BONES/JOINTS: No acute fracture or malalignment. Preservation of the joint space and no degenerative bony proliferative changes. No sclerotic or destructive changes observed. Inferior and posterior calcaneal spurs. RAD/Foot min 3 Views IMPRESSION: No traumatic osseous or soft tissue injury exemplified. Posterior and inferior calcaneal spurs. Electronically Signed: Pelon Hernandez DO at 22:20 EST ,
--- NOTE | 2023-05-30 21:40 | RAD_ITS ---
INDICATION: pain/injury EXAMINATION/TECHNIQUE: X-RAY - XR Ribs Unilateral W/ PA Chest Min 3 Views COMPARISON: 02/06/2023. FINDINGS: SOFT TISSUES: Unremarkable. BONES: Chronic right rib fractures. No other fracture is seen. VISUALIZED LUNGS: Clear. No pneumothorax. VISUALIZED MEDIASTINUM: Unremarkable. RAD/Ribs Uni Min 3V w/PA Chest IMPRESSION: No evidence of a left rib fracture. Electronically Signed: Tha Roach DO at 22:23 EST ,
--- NOTE | 2023-05-30 21:40 | RAD_ITS ---
INDICATION: pain/injury EXAMINATION/TECHNIQUE: X-RAY - RIGHT XR Knee Complete 4 Views or More 4 VIEWS COMPARISON: No relevant prior comparison studies available. FINDINGS: SOFT TISSUES: No soft tissue swelling or gas. No radiopaque foreign body. BONES/JOINTS: No acute fracture or malalignment. Preservation of the joint space and no degenerative bony proliferative changes. No sclerotic or destructive changes observed. RAD/Knee 4 or More Views IMPRESSION: Negative. Electronically Signed: Pelon Hernandez DO at 22:21 EST ,
[2023-05-30] MEDS: carBAMazepine 200 MG Tablet PO (21:50)
[2023-05-30 22:05] LABS: Mucous, Urine 0 SEEN /hpf (<or=2+); Red Blood Cells-Urine 0 SEEN /hpf (0-5)
[2023-05-30 22:10] LABS: Color, Urine Yellow (Yellow); Glucose, Dipstick Normal (Normal); Ketone-Dipstick Negative (Negative); Leukocyte Esterase-Dipstick 100 /ul (Negative); Nitrite-Dipstick Negative (Negative); Occult Blood-Urine Negative /ul (Negative); Protein-Dipstick Negative (Negative); Urine Clarity Clear (Clear); Urine Urobilinogen 1 mg/dl (Normal)
[2023-05-30 22:18] LABS: Bacteria 2+ /hpf (None Seen); Squamous Epithelial Cells - UA 0-5 SEEN /hpf (5-10); Urine Bilirubin Dipstick 1 mg/dL (Negative); White Blood Cells 5-10 SEEN /hpf (0-5)
[2023-05-30 23:00] VITALS: BP 134/82; PULSE 70; RESP 16; O2SAT 96
--- NOTE | 2023-05-30 23:40 | HP.PCM.HOS_ITS ---
HPI - General General Date of Admission: 05/30/23 Date of Service: 05/30/23 Chief Complaint: Multiple falls HPI Narrative FAM VINSON, is a 57 F with a significant history of a seizure disorder; and diabetes mellitus who presents to the emergency department with multiple falls. She fell 2 times a day before presentation and on the day of presentation she fell 1 time. With the last fall she noticed herself on the ground. Reportedly she was shaking. Urine was abnormal. Follow-up questions following results of urinalysis patient stated that she has increased frequency of urination with decreased urine output at each time. She has abrasion on right ankle. Also she reports headache. She reports that she was given Tylenol at the emergency department and that the Tylenol did not touh her, She is at hospital she is given something which knocks it down and then she wakes up she has no headache. Also reports left rib pain from falling. On Presentation ambulation was tried but patient could not tolerate. [facility] Medical History Allergic rhinitis Brain TIA Chronic migraine Diabetes mellitus, type 2 Former tobacco use GERD (gastroesophageal reflux disease) History of CVA (cerebrovascular accident) HTN (hypertension) Hypercholesterolemia Obesity Orthostasis Psoriasis Seizure disorder Transient hypotension Home Medications albuterol sulfate 90 mcg/actuation aerosol inhaler 90 inh inhalation Q4H PRN PRN Wheezing 09/03/22 [History Last Taken Unknown] atorvastatin 80 mg tablet 80 mg PO QHS 09/03/22 [History Last Taken Unknown] vkdnsidoae-wauxcxuwpedfs-rtvyxquk 50 mg-325 mg-40 mg tablet 1 tab PO Q6H PRN Headache 09/03/22 [History Last Taken Unknown] carbamazepine 200 mg tablet,extended release,12 hr 200 mg PO BID 09/03/22 [History Last Taken Unknown] diclofenac sodium 75 mg tablet,delayed release 75 mg PO BID PRN pain 09/03/22 [History Last Taken Unknown] docusate sodium 100 mg capsule 100 mg PO BID CONSTIPATION 09/03/22 [History Last Taken Unknown] ergocalciferol (vitamin D2) 1,250 mcg (50,000 unit) capsule 50,000 unit PO MO Check with primary doctor 09/03/22 [History Last Taken Unknown] flash glucose scanning reader (Care Team Connect Es 2 [place]) 09/03/22 [History Last Taken Unknown] flash glucose sensor (FreeStyle Es 2 Sensor kit) 09/03/22 [History Last Taken Unknown] fluticasone propionate 50 mcg/actuation nasal spray,suspension 1 spray intrana patel DAILY PRN Check with primary doctor 09/03/22 [History Last Taken Unknown] furosemide 40 mg tablet 40 mg PO DAILY Check with primary doctor 09/03/22 [History Last Taken Unknown] gabapentin 100 mg capsule 200 mg PO DAILY 09/03/22 [History Last Taken Unknown] gabapentin 800 mg tablet 800 mg PO QHS 09/03/22 [History Last Taken Unknown] glipizide 5 mg tablet 5 mg PO BID Check with primary doctor 09/03/22 [History Last Taken Unknown] glucagon 1 mg injection kit mg Check with primary doctor 09/03/22 [History Last Taken Unknown] insulin lispro 100 unit/mL subcutaneous solution See Protocol subcut ACHS Check with primary doctor 09/03/22 [History Last Taken Unknown] insulin syr/ndl U100 half shirley 0.5 mL 31 gauge x 5/16 (Droplet Insulin Syringe (half unit)) 09/03/22 [History Last Taken Unknown] ipratropium 0.5 mg-albuterol 3 mg (2.5 mg base)/3 mL nebulization soln 3 ml inhalation Q6H PRN sob 09/03/22 [History Last Taken Unknown] melatonin 12 mg tablet 12 mg PO QHS 09/03/22 [History Last Taken Unknown] omeprazole 40 mg capsule,delayed release 40 mg PO DAILY 09/03/22 [History Last Taken Unknown] potassium chloride 20 mEq tablet,extended release(part/cryst) 20 meq PO DAILY 09/03/22 [History Last Taken Unknown] topiramate 100 mg tablet 200 mg PO BID 09/03/22 [History Last Taken Unknown] promethazine 25 mg tablet 25 mg PO Q6H PRN PRN Nausea #12 TABLETS 11/08/22 [Rx Last Taken Unknown] midodrine 5 mg tablet 5 mg PO TID HYPOTENSION 02/05/23 [History Last Taken Unknown] dextromethorphan 20 mg-quinidine 10 mg capsule (Nuedexta) 1 cap PO DAILY DEPRESSION 02/06/23 [History Last Taken Unknown] ubrogepant 100 mg tablet (Ubrelvy) 100 mg PO .COMPLEX PRN MIGRAINE 02/06/23 [History Last Taken Unknown] nitrofurantoin monohydrate/macrocrystals 100 mg capsule 100 mg PO Q12 #10 CAPSULES 05/30/23 [Rx Last Taken Unknown] duloxetine 60 mg capsule,delayed release 60 mg PO BID 05/31/23 [History Last Taken Unknown] insulin glargine 100 unit/mL (3 mL) subcutaneous pen 15 unit subcut QHS 05/31/23 [History Last Taken Unknown] insulin glargine 100 unit/mL subcutaneous solution (Lantus U-100 Insulin) 22 unit subcut DAILY Check with primary doctor 05/31/23 [History Last Taken Unknown] Allergy/AdvReac Type Severity Reaction Status Date / Time latex Allergy Rash Verified 02/05/23 22:25 levofloxacin [From Levaquin] Allergy Hives Verified 02/05/23 22:25 ondansetron [From Zofran] Allergy Hives Verified 02/05/23 22:25 nalbuphine [From Nubain] AdvReac Other Verified 02/05/23 22:25 Family History Father Cancer Mother Cancer Surgical History Hx of cholecystectomy Hx of tonsillectomy Hx of tubal ligation Social History household members: none housing: other details: Recent transition from Assisted Living to home. Smoking Status: Former smoker alcohol intake: never substance use type: does not use Vital Signs Vital Signs Vital Signs: 05/30/23 19:27 05/30/23 19:49 05/30/23 21:27 Temperature 98.1 F Temperature Source Oral Pulse Rate 83 66 Respiratory Rate 16 14 Respiratory Effort Normal Respiratory Depth Normal Respiratory Pattern Normal Blood Pressure 134/82 H Blood Pressure Mean 99 Pulse Ox 96 96 100 Oxygen Delivery Method Room Air Room Air Room Air Physical Exam Narrative Physical exam: General: Well-nourished, well-developed. Head: Normocephalic, atraumatic, no tenderness Eyes: Vision is grossly intact. EOMI ENT, no trauma, moist mucous membranes, no rhinorrhea Neck: Nontender, No thyromegaly. CVS: Regular rate and rhythm. S1-S2 present. No murmur, gallop or rub. Respiratory : clear to auscultation bilaterally, chest wall nontender Abdomen: Soft, nontender, nondistended, normal bowel sounds, no masses : Deferred Back: Nontender, no CVA tenderness, no midline spinal tenderness, deformities, step-offs Extremities: Abrasions on right knee. Tender left leg; and left ribs. Skin: Normal color, no trauma, abrasions Neuro: Alert, oriented, cranial nerves II through XII grossly intact. Psychiatry: Normal mood. Normal affect. Not depressed. Not anxious. Results Lab / Micro Data 05/30/23 20:50 05/30/23 20:50 Labs: Laboratory Results - last 24 hr 05/30/23 19:37: POC Glucose 31 L* 05/30/23 19:55: POC Glucose 39 L* 05/30/23 20:30: POC Glucose 72 L 05/30/23 20:50: WBC 12.1 H, RBC 3.40 L, Hgb 10.6 L, Hct 32.8 L, MCV 96.5, MCH 31.2, MCHC 32.3, RDW Std Deviation 47.6 H, RDW Coeff of He 13.4, Plt Count 215, MPV 11.1, Immature Gran % (Auto) 0.800, Neut % (Auto) 81.6 H, Lymph % (Auto) 11.2 L, [place] % (Auto) 5.7, Eos % (Auto) 0.3, Baso % (Auto) 0.4, Absolute Neuts (auto) 9.9 H, Absolute Lymphs (auto) 1.35, Nucleated RBC % 0, Sodium 141, Potassium 4.6, Chloride 115 H, Carbon Dioxide 19.0 L, Anion Gap 7, BUN 36 H, Creatinine 0.88, Est GFR (MDRD) Af Amer 85, Est GFR (MDRD) Non-Af 70, BUN/Creatinine Ratio 40.9 H, Glucose 135 H, Calcium 8.6, Troponin I High Sens 5, Carbamazepine 7.3 05/30/23 22:00: Urine Color Yellow, Urine Clarity Clear, Urine pH 6.0, Ur Spec ific [place] 1.020, Urine Protein Negative, Urine Glucose (UA) Normal, Urine Ketones Negative, Urine Occult Blood Negative, Urine Nitrite Negative, Urine Bilirubin 1 H, Urine Urobilinogen 1 H, Ur Leukocyte Esterase 100 H, Urine RBC 0 SEEN, Urine WBC 5-10 SEEN, Ur Squamous Epith Cells 0-5 SEEN, Urine Bacteria 2+, Urine Mucus 0 SEEN Imagaing Radiology Impression Brain CT 05/30/23 19:35 IMPRESSION: No acute intracranial abnormality identified. No significant change from prior study. Electronically Signed: Corby Vann MD at 21:35 EST , Foot X-Ray 05/30/23 21:40 IMPRESSION: No traumatic osseous or soft tissue injury exemplified. Posterior and inferior calcaneal spurs. Electronically Signed: Pelon Hernandez DO at 22:20 EST , Knee X-Ray 05/30/23 21:40 IMPRESSION: Negative. Electronically Signed: Pelon Hernandez DO at 22:21 EST , Ribs w/Chest X-Ray 05/30/23 21:40 IMPRESSION: No evidence of a left rib fracture. Electronically Signed: Tha Roach DO at 22:23 EST , Assessment & Plan Assessment/Plan (1) Multiple falls: (2) Breakthrough seizure: (3) UTI (urinary tract infection): QUALIFIERS: Urinary tract infection type: acute cystitis Hematuria presence: without hematuria Qualified Code(s): N30.00 - Acute cystitis without hematuria PLAN: Plan Multiple falls Discussed with ED doctor who recommended patient be admitted. CT head independently interpreted: No acute. Agrees within the interpretation. PT and OT to work with patient. Case management consult. Breakthrough seizure Level on presentation was normal. Patient reports compliance Tegretol. Home seizure medication continued. Trend blood pressures. Diabetes mellitus Blood glucose was not within goal at the time of presentation. Lovenox ordered. Hypertension Blood pressure is within goal. Continue home medication after med reconciliation. Dehydration: Elevated BUN but normal creatinine. Normal saline infusion ordered. UTI Patient with positive urinalysis. Macrodantin given the emergency department and continued. Follow urine culture. DVT prophylaxis: SCDs ordered.
[2023-05-30 23:57] VITALS: BP 134/82; PULSE 70; RESP 16; O2SAT 96
[2023-05-31] MEDS: proMETHazine 25 MG Tablet 12.5 MG PO (00:13)
[2023-05-31] MEDS: Nitrofurantoin Macrocrystals 100 MG Capsule PO ×2 (00:14→09:33)
[2023-05-31 00:46] VITALS: BMI 35.0
[2023-05-31 01:29] VITALS: BP 165/91; PULSE 69; RESP 18; TEMP 36.1; O2SAT 100
[2023-05-31] MEDS: Atorvastatin Calcium 80 MG Tablet PO ×2 (02:46→21:05)
[2023-05-31] MEDS: Topiramate 100 MG Tablet 200 MG PO ×3 (02:46→21:06)
[2023-05-31] MEDS: MELATONIN 3 MG TABLET 12 MG PO ×2 (02:47→21:05)
[2023-05-31] MEDS: DULoxetine Hcl 60 MG Capsule PO ×3 (02:51→21:05)
[2023-05-31] MEDS: oxyCODONE 5 MG Tablet PO ×2 (02:51→21:06)
[2023-05-31 06:28] LABS: Bedside Glucose 126 mg/dL (74-106)
[2023-05-31 06:52] LABS: Absolute Lymphocyte Count 3.01 X10^3/uL (0.83-4.51); Absolute Neutrophil Count 6.4 X10^3/uL (2.0-7.7); Basophil# 0.03 X10^3/uL; Basophil% 0.3 % (0-1); Hematocrit 34.6 % (37-47); Hemoglobin 11.1 g/dL (12.0-15.0); Lymphocyte # 3.01 X10^3/ul (0.83-4.51); Lymphocyte % 29.5 % (19-41); Mean Corp Hgb Conc 32.1 g/dL (32-36); Mean Corpuscular Hgb 31.4 pg (27.0-32.0); Mean Corpuscular Volume 97.7 fL (81-99); Mean Platelet Vol. 10.7 fl (6.2-12.0); Monocyte# 0.63 X10^3/uL; Monocyte% 6.2 % (0-10); NRBC Flagged by Analyzer 0 % (0-5); Neutrophil # 6.36 X10^3/uL (2.7-7.7); Neutrophil % 62.3 % (47-70); Platelet Count 242 K/mm3 (150-450); RBC Distribution Width CV 13.4 % (11.6-14.6); RBC Distribution Width SD 48.8 fl (35.1-43.9); Red Blood Count 3.54 M/mm3 (4.2-5.4); White Blood Count 10.2 K/mm3 (4.4-11.0)
[2023-05-31 07:27] LABS: Anion Gap 10 (5-15); BUN 22 mg/dL (7-18); BUN/Creat Ratio 27.3 RATIO (10-20); Calcium,Total 9.1 mg/dL (8.5-10.1); Chloride 112 mmol/L (98-107); Creatinine, Serum 0.81 mg/dL (0.55-1.02); EST Glomerular Filtration Rate 78 mL/min (>60); Est Glom Filt Rate - Afr Amer 94 mL/min (>60); Estimated Creatinine Clearance 69.78 ml/min; Glucose 138 mg/dL (74-106); Potassium 3.9 mmol/L (3.5-5.1); Sodium Level 140 mmol/L (136-145)
[2023-05-31 08:00] VITALS: BP 145/86; PULSE 70; RESP 16; TEMP 36.6; O2SAT 96
--- NOTE | 2023-05-31 09:24 | PN.HOSP_ITS ---
Subjective Subjective Doing well, no issues overnight. Objective Data Objective Data Vital Signs: Vital Signs Temp Pulse Resp BP Pulse Ox O2 Del Method 96.9 F L 69 18 165/91 H 100 Room Air 05/31/23 01:29 05/31/23 01:29 05/31/23 01:29 05/31/23 01:29 05/31/23 01:29 05/31/23 07:58 Oxygen Delivery Method Room Air Weight: 210 lb 12.8 oz Body Mass Index (BMI) 35.0 Intake & Output: Intake and Output for Last 24 Hours 05/30/23 05/31/23 06/01/23 03:59 03:59 03:59 Intake Total 866.67 / 866.67 400 / 400 Output Total 900 / 900 Balance 866.67 / 866.67 -500 / -500 Lab / Micro Data 05/31/23 06:10 05/31/23 06:10 Labs: Laboratory Results - last 24 hr 05/30/23 19:37: POC Glucose 31 L* 05/30/23 19:55: POC Glucose 39 L* 05/30/23 20:30: POC Glucose 72 L 05/30/23 20:50: WBC 12.1 H, RBC 3.40 L, Hgb 10.6 L, Hct 32.8 L, MCV 96.5, MCH 31.2, MCHC 32.3, RDW Std Deviation 47.6 H, RDW Coeff of He 13.4, Plt Count 215, MPV 11.1, Immature Gran % (Auto) 0.800, Neut % (Auto) 81.6 H, Lymph % (Auto) 11.2 L, [place] % (Auto) 5.7, Eos % (Auto) 0.3, Baso % (Auto) 0.4, Absolute Neuts (auto) 9.9 H, Absolute Lymphs (auto) 1.35, Nucleated RBC % 0, Sodium 141, Potassium 4.6, Chloride 115 H, Carbon Dioxide 19.0 L, Anion Gap 7, BUN 36 H, Creatinine 0.88, Est GFR (MDRD) Af Amer 85, Est GFR (MDRD) Non-Af 70, BUN/Creatinine Ratio 40.9 H, Glucose 135 H, Calcium 8.6, Troponin I High Sens 5, Carbamazepine 7.3 05/30/23 22:00: Urine Color Yellow, Urine Clarity Clear, Urine pH 6.0, Ur Specific [place] 1.020, Urine Protein Negative, Urine Glucose (UA) Normal, Urine Ketones Negative, Urine Occult Blood Negative, Urine Nitrite Negative, Urine Bilirubin 1 H, Urine Urobilinogen 1 H, Ur Leukocyte Esterase 100 H, Urine RBC 0 SEEN, Urine WBC 5-10 SEEN, Ur Squamous Epith Cells 0-5 SEEN, Urine Bacteria 2+, Urine Mucus 0 SEEN 05/31/23 06:07: POC Glucose 126 H 05/31/23 06:10: WBC 10.2, RBC 3.54 L, Hgb 11.1 L, Hct 34.6 L, MCV 97.7, MCH 31.4, MCHC 32.1, RDW Std Deviation 48.8 H, RDW Coeff of He 13.4, Plt Count 242, MPV 10.7, Immature Gran % (Auto) 0.700, Neut % (Auto) 62.3, Lymph % (Auto) 29.5, [place] % (Auto) 6.2, Eos % (Auto) 1.0, Baso % (Auto) 0.3, Absolute Neuts (auto) 6.4, Absolute Lymphs (auto) 3.01, Nucleated RBC % 0, Sodium 140, Potassium 3.9, Chloride 112 H, Carbon Dioxide 18.0 L, Anion Gap 10, BUN 22 H, Creatinine 0.81, Estim Creat Clear Calc 69.78, Est GFR (MDRD) Af Amer 94, Est GFR (MDRD) Non-Af 78, BUN/Creatinine Ratio 27.3 H, Glucose 138 H, Calcium 9.1 Radiography Diagnostic Testing: Radiology Impression Brain CT 05/30/23 19:35 IMPRESSION: No acute intracranial abnormality identified. No significant change from prior study. Electronically Signed: Corby Vann MD at 21:35 EST , Foot X-Ray 05/30/23 21:40 IMPRESSION: No traumatic osseous or soft tissue injury exemplified. Posterior and inferior calcaneal spurs. Electronically Signed: Pelon Hernandez DO at 22:20 EST , Knee X-Ray 05/30/23 21:40 IMPRESSION: Negative. Electronically Signed: Pelon Hernandez, DO at 22:21 EST , Ribs w/Chest X-Ray 05/30/23 21:40 IMPRESSION: No evidence of a left rib fracture. Electronically Signed: Tha Roach, DO at 22:23 EST , Physical Exam Narrative General: Alert, Oriented x3, Cooperative, No apparent distress HEENT: Atraumatic, PERRLA, EOMI, Normocephalic Oral: Moist Mucosa Neck: Supple, No JVD Lungs: Diminished, Normal air movement, No rhonchi, No wheeze, No rales Cardiovascular: Regular rate, Regular Rhythm, Normal S1, Normal S2, No murmurs Abdomen: Soft, Non Tender, Non-Distended, No Hepato-splenomegaly Extremities: No edema, Capillary Refill Less than 3 Seconds Skin: No rashes, No breakdown Musculoskeletal: No Tenderness to Palpation of Joints or Extremities Neurological: Cranial nerves II-XII grossly intact, Motor Exam 5/5 strength throughout, Sensory exam intact to light touch and pain Psych/Mental Status: Normal Affect, Appropriate Assessment & Plan Assessment/Plan (1) Multiple falls: (2) Breakthrough seizure: (3) UTI (urinary tract infection): QUALIFIERS: Urinary tract infection type: acute cystitis Hematuria presence: without hematuria Qualified Code(s): N30.00 - Acute cystitis without hematuria PLAN: Plan 1. Multiple falls with a breakthrough seizure in the setting of a UTI ? All of this could have been precipitated by the UTI, continue with Rocephin, previous culture with E. coli ? Current cultures are pending ? Continue with her home seizure medications, carbamazepine level on admission was normal 2. DM 2 ? Continue with sliding scale insulin ? Continue with glipizide ? Accu-Cheks ACHS ? We will monitor and make adjustments as necessary 3. HLD ? Continue with Lipitor DVT: SCDs Charges/Coding Visit Charges Inpatient E&M: 43589 Subs Hosp L2
[2023-05-31] MEDS: Gabapentin 100 MG Capsule 200 MG PO (09:29)
[2023-05-31] MEDS: Midodrine HCl 5 MG Tablet PO (09:29)
[2023-05-31] MEDS: glipiZIDE 5 MG Tablet PO ×2 (09:29→16:39)
[2023-05-31] MEDS: Ergocalciferol 1.25 MG (50, 000 UNIT) Capsule PO (09:30)
[2023-05-31] MEDS: Docusate Sodium 100 MG Capsule PO ×2 (09:30→21:05)
[2023-05-31] MEDS: Pantoprazole Sodium 40 MG Tablet PO (09:30)
[2023-05-31] MEDS: Acetaminophen/Butalbital/Caffe 1 Tablet PO (09:30)
[2023-05-31] MEDS: Enoxaparin 40 MG/0.4 ML Syringe SC (09:31)
[2023-05-31 09:58] LABS: Bedside Glucose 174 mg/dL (74-106)
[2023-05-31] MEDS: Ceftriaxone 1 GM/50 ML BAG IV (11:18)
[2023-05-31] MEDS: carBAMazepine 200 MG Tablet 100 MG PO ×3 (11:18→21:06)
[2023-05-31] MEDS: 0.9% Saline Lock 10 ML Syringe IV ×2 (11:18→14:26)
[2023-05-31] MEDS: Insulin Glargine-YFGN 100 UNIT/ML Pen 16 UNIT SC (11:19)
[2023-05-31 11:20] VITALS: BP 147/83; PULSE 66; RESP 18; TEMP 36.5; O2SAT 98
[2023-05-31] MEDS: proCHLORPERazine 10 MG/2 ML Vial 5 MG IV (14:26)
--- NOTE | 2023-05-31 16:20 | CASEMGMT ---
Met with patient to complete CORDON form. CORDON form explained to patient who voiced understanding and signed form. Original form placed in pt?s chart and copy provided to patient.? Michelle Pereyra, Discharge Planning Asst
[2023-05-31] MEDS: Insulin Lispro 100 UNIT/ML INSULN.PEN SC (16:44)
--- NOTE | 2023-05-31 16:54 | CHAPLAIN ---
Type of Pastoral Visit _x__ Initial Visit ___ Follow-up Visit ___ On-call Visit ___ General Patient Visit ___ Spiritual Assessment ___ Family Conference ___ Bereavement ___ Rapid Response ___ Code Blue ___ Other (describe below) Pastoral Care Referral From _x__ Patient ___ Family ___ Nurse ___ Physician ___ Gamma Operator ___ Senior Web Architect ___ Other (describe below) Sacrament/Intervention ___ Active listening ___ Anointing ___ Congregation ___ Bereavement ___ Communion ___ Lisa exploration ___ ___ Life review _x__ Prayer ___ Reconciliation ___ Sacrament of Sick _x__ Supportive presence ___ Wedding ___ Other (describe below) Pastoral Comments
[2023-05-31 20:00] LABS: Bedside Glucose 193 mg/dL (74-106)
[2023-05-31 21:00] VITALS: BP 122/71; PULSE 74; RESP 18; TEMP 37.1; O2SAT 96
[2023-05-31] MEDS: Insulin Glargine-YFGN 100 UNIT/ML Pen 15 UNIT SC (21:03)
[2023-05-31] MEDS: Gabapentin 800 MG Tablet PO (21:06)
[2023-05-31 21:45] LABS: Bedside Glucose 141 mg/dL (74-106)
[2023-06-01 03:00] VITALS: BP 135/71; PULSE 69; RESP 14; TEMP 36.7; O2SAT 94
[2023-06-01 06:30] LABS: Bedside Glucose 142 mg/dL (74-106)
[2023-06-01] MEDS: glipiZIDE 5 MG Tablet PO ×2 (07:33→16:54)
[2023-06-01] MEDS: 0.9% Saline Lock 10 ML Syringe IV ×3 (07:40→20:13)
[2023-06-01] MEDS: proCHLORPERazine 10 MG/2 ML Vial 5 MG IV ×2 (07:40→20:13)
[2023-06-01] MEDS: Acetaminophen/Butalbital/Caffe 1 Tablet PO ×2 (07:40→17:00)
[2023-06-01 07:51] LABS: Absolute Neutrophil Count 4.9 X10^3/uL (2.0-7.7); Basophil# 0.07 X10^3/uL; Basophil% 0.8 % (0-1); Eosinophil# 0.09 X10^3/uL; Hematocrit 36.8 % (37-47); Hemoglobin 11.6 g/dL (12.0-15.0); Lymphocyte % 35.5 % (19-41); Mean Corp Hgb Conc 31.5 g/dL (32-36); Mean Corpuscular Hgb 30.9 pg (27.0-32.0); Mean Corpuscular Volume 98.1 fL (81-99); Mean Platelet Vol. 11.1 fl (6.2-12.0); Monocyte# 0.61 X10^3/uL; Monocyte% 6.8 % (0-10); NRBC Flagged by Analyzer 0 % (0-5); Neutrophil # 4.89 X10^3/uL (2.7-7.7); Neutrophil % 54.2 % (47-70); Platelet Count 248 K/mm3 (150-450); RBC Distribution Width CV 13.6 % (11.6-14.6); RBC Distribution Width SD 49.1 fl (35.1-43.9); Red Blood Count 3.75 M/mm3 (4.2-5.4)
[2023-06-01 07:59] VITALS: BP 147/74; PULSE 65; RESP 16; TEMP 36.4; O2SAT 96
[2023-06-01 08:15] LABS: Anion Gap 5 (5-15); BUN 25 mg/dL (7-18); Calcium,Total 8.8 mg/dL (8.5-10.1); Chloride 113 mmol/L (98-107); Creatinine, Serum 0.93 mg/dL (0.55-1.02); EST Glomerular Filtration Rate 66 mL/min (>60); Est Glom Filt Rate - Afr Amer 80 mL/min (>60); Estimated Creatinine Clearance 60.78 ml/min; Glucose 159 mg/dL (74-106); Potassium 3.9 mmol/L (3.5-5.1); Sodium Level 140 mmol/L (136-145)
[2023-06-01 09:11] VITALS: O2SAT 96
[2023-06-01] MEDS: carBAMazepine 200 MG Tablet 100 MG PO ×4 (09:21→22:08)
[2023-06-01] MEDS: Docusate Sodium 100 MG Capsule PO ×2 (09:21→22:08)
[2023-06-01] MEDS: Gabapentin 100 MG Capsule 200 MG PO (09:21)
[2023-06-01] MEDS: DULoxetine Hcl 60 MG Capsule PO ×2 (09:21→22:09)
[2023-06-01] MEDS: Topiramate 100 MG Tablet 200 MG PO ×2 (09:21→22:08)
[2023-06-01] MEDS: Ceftriaxone 1 GM/50 ML BAG IV (09:21)
[2023-06-01] MEDS: Pantoprazole Sodium 40 MG Tablet PO (09:21)
[2023-06-01] MEDS: Enoxaparin 40 MG/0.4 ML Syringe SC (09:22)
[2023-06-01] MEDS: Insulin Glargine-YFGN 100 UNIT/ML Pen 16 UNIT SC (09:22)
[2023-06-01 09:47] LABS: Bedside Glucose 157 mg/dL (74-106)
--- NOTE | 2023-06-01 09:54 | PCM.PN.HOSP ---
Subjective Subjective Had to have a Ramirez placed last night for retention Objective Data Objective Data Vital Signs: Vital Signs Temp Pulse Resp BP Pulse Ox O2 Del Method 97.6 F L 65 16 147/74 H 96 Room Air 06/01/23 07:59 06/01/23 07:59 06/01/23 07:59 06/01/23 07:59 06/01/23 09:11 06/01/23 09:11 Oxygen Delivery Method Room Air Weight: 210 lb 12.8 oz Body Mass Index (BMI) 35.0 Intake & Output: Intake and Output for Last 24 Hours 05/31/23 06/01/23 06/02/23 03:59 03:59 03:59 Intake Total 866.67 / 866.67 450 / 450 Output Total 2525 / 2525 425 / 425 Balance 866.67 / 866.67 -2075 / -2075 -425 / -425 Lab / Micro Data 06/01/23 06:40 06/01/23 06:40 Labs: Laboratory Results - last 24 hr 05/31/23 09:35: POC Glucose 174 H 05/31/23 16:38: POC Glucose 193 H 05/31/23 21:01: POC Glucose 141 H 06/01/23 06:11: POC Glucose 142 H 06/01/23 06:40: WBC 9.0, RBC 3.75 L, Hgb 11.6 L, Hct 36.8 L, MCV 98.1, MCH 30.9, MCHC 31.5 L, RDW Std Deviation 49.1 H, RDW Coeff of He 13.6, Plt Count 248, MPV 11.1, Immature Gran % (Auto) 1.700 H, Neut % (Auto) 54.2, Lymph % (Auto) 35.5, [place] % (Auto) 6.8, Eos % (Auto) 1.0, Baso % (Auto) 0.8, Absolute Neuts (auto) 4.9, Absolute Lymphs (auto) 3.20, Nucleated RBC % 0, Sodium 140, Potassium 3.9, Chloride 113 H, Carbon Dioxide 22.0, Anion Gap 5, BUN 25 H, Creatinine 0.93, Estim Creat Clear Calc 60.78, Est GFR (MDRD) Af Amer 80, Est GFR (MDRD) Non-Af 66, BUN/Creatinine Ratio 27.0 H, Glucose 159 H, Calcium 8.8 06/01/23 09:20: POC Glucose 157 H Micro: Microbiology 05/30/23 22:00 Urine, Random Urine Culture - Final Presumptive E. coli
--- NOTE | 2023-06-01 11:23 | CASEMGMT ---
Addendum entered by Marcela Deras 06/01/23 15:39: Faxed rx for PT to [facility] at this time. Addendum entered by Marcela Deras 06/01/23 12:04: TC to [facility] Sam Nissa who states that if pt needs transportation for a PT eval, [facility] will coordinate this. TC to [facility], spoke with Carolyn, she states she will coordinate with the [facility] van and PT schedule to make appt. She will call this RN SULEMAN back with date and time. Addendum entered by Marcela Deras 06/01/23 11:59: ENRIQUE SHELL back into pt room, pt nurse present. Discussed outpt therapy with patient, she is agreeable to this with the [facility] van. She states she will be able to have her sister transport her home from the hospital. Pt is aware that she will need to get in and out of the van on her own. Pt is adamant she can do this. Discussed with nurse who states pt needed x1 assist yesterday. When pt gets up again, pt aware we will see how she does with this. She again states she can do it. Addendum entered by Marcela Deras 06/01/23 11:43: TC to pt sister Enriqueta, she states she just had back surgery and could not provide assistance to pt. She also states she is not able to do things in the home as prior and does not want any HHC in the home. She asks if pt can go outpt. Discussed with her the option of the hospital van with using [facility], she prefers this. Will discuss with pt. Original Note: Spoke with PT, HHC discussed. No OT recommended. RN CM into pt room, pt sitting up in chair. Pt reports she lives with her sister. She has a cane and walker at home, typically uses the cane. Pt states she is I in [place]'s at home, but does not drive. She states she does her own meal prep, laundry and gets groceries when transportation is provided. Pt is agreeable to use the walker for safety. Pt states that her sister is able to assist at home, will verify. Pt is aware that RN SULEMAN will bring a HH list for options.
[2023-06-01 11:40] VITALS: BP 116/70; PULSE 70; RESP 16; TEMP 36.1; O2SAT 97
[2023-06-01] MEDS: Insulin Lispro 100 UNIT/ML INSULN.PEN SC ×3 (11:44→22:09)
--- NOTE | 2023-06-01 11:52 | CASEMGMT ---
Discharge Planning A list of?SNF providers including quality and resource use data and consistent with the patient's preferred geographic region, medical needs, and insurance network was created in [facility] Guide.? This list was provided to the RN SULEMAN. Michelle Pereyra, Discharge Planning Asst.
--- NOTE | 2023-06-01 11:54 | CASEMGMT ---
Discharge Planning A list of HH providers including quality and resource use data and consistent with the patient's preferred geographic region, medical needs, and insurance network was created in [facility] Guide.? This list was provided to the RN SULEMAN. Michelle Pereyra, Discharge Planning Asst.
--- NOTE | 2023-06-01 15:13 | CASEMGMT ---
Social Work SW met with pt to discuss advance directives.? Pt confirms she has completed a living will and health care POA naming her sister Enriqueta Patterson .? Pt and sister notified that documents are not on file at [facility] and SW requested they be brought in for scanning into the EMR.? DAIJA Pacheco
[2023-06-01 16:24] LABS: Bedside Glucose 243 mg/dL (74-106)
--- NOTE | 2023-06-01 16:39 | PN.HOSP_ITS ---
Objective Data Objective Data Vital Signs: Vital Signs Temp Pulse Resp BP Pulse Ox O2 Del Method 97 F L 70 16 116/70 97 Room Air 06/01/23 11:40 06/01/23 11:40 06/01/23 11:40 06/01/23 11:40 06/01/23 11:40 06/01/23 11:40 Oxygen Delivery Method Room Air Weight: 210 lb 12.8 oz Body Mass Index (BMI) 35.0 Intake & Output: Intake and Output for Last 24 Hours 05/31/23 06/01/23 06/02/23 03:59 03:59 03:59 Intake Total 866.67 / 866.67 450 / 450 50 / 50 Output Total 2525 / 2525 1175 / 1175 Balance 866.67 / 866.67 -2075 / -2075 -1125 / -1125 Lab / Micro Data 06/01/23 06:40 06/01/23 06:40 Labs: Laboratory Results - last 24 hr 05/31/23 16:38: POC Glucose 193 H 05/31/23 21:01: POC Glucose 141 H 06/01/23 06:11: POC Glucose 142 H 06/01/23 06:40: WBC 9.0, RBC 3.75 L, Hgb 11.6 L, Hct 36.8 L, MCV 98.1, MCH 30.9, MCHC 31.5 L, RDW Std Deviation 49.1 H, RDW Coeff of He 13.6, Plt Count 248, MPV 11.1, Immature Gran % (Auto) 1.700 H, Neut % (Auto) 54.2, Lymph % (Auto) 35.5, [place] % (Auto) 6.8, Eos % (Auto) 1.0, Baso % (Auto) 0.8, Absolute Neuts (auto) 4.9, Absolute Lymphs (auto) 3.20, Nucleated RBC % 0, Sodium 140, Potassium 3.9, Chloride 113 H, Carbon Dioxide 22.0, Anion Gap 5, BUN 25 H, Creatinine 0.93, Estim Creat Clear Calc 60.78, Est GFR (MDRD) Af Amer 80, Est GFR (MDRD) Non-Af 66, BUN/Creatinine Ratio 27.0 H, Glucose 159 H, Calcium 8.8 06/01/23 09:20: POC Glucose 157 H 06/01/23 11:43: POC Glucose 243 H Micro: Microbiology 05/30/23 22:00 Urine, Random Urine Culture - Final Presumptive E. coli
[2023-06-01 16:45] VITALS: BP 137/83; PULSE 73; RESP 16; TEMP 36.4; O2SAT 99
[2023-06-01 17:14] LABS: Bedside Glucose 186 mg/dL (74-106)
[2023-06-01 20:38] VITALS: BP 164/91; PULSE 76; RESP 16; TEMP 36.8; O2SAT 98
[2023-06-01] MEDS: Atorvastatin Calcium 80 MG Tablet PO (22:08)
[2023-06-01] MEDS: Gabapentin 800 MG Tablet PO (22:08)
[2023-06-01] MEDS: MELATONIN 3 MG TABLET 12 MG PO (22:09)
[2023-06-01] MEDS: Insulin Glargine-YFGN 100 UNIT/ML Pen 15 UNIT SC (22:10)
[2023-06-01 22:34] LABS: Bedside Glucose 214 mg/dL (74-106)
[2023-06-02 03:25] VITALS: BP 113/72; PULSE 65; RESP 18; TEMP 36.6; O2SAT 95
[2023-06-02] MEDS: Insulin Lispro 100 UNIT/ML INSULN.PEN SC ×2 (06:55→11:22)
[2023-06-02 07:16] LABS: Bedside Glucose 152 mg/dL (74-106)
[2023-06-02 07:20] VITALS: O2SAT 95
[2023-06-02 08:01] VITALS: BP 129/80; PULSE 65; RESP 17; TEMP 36.7; O2SAT 100
[2023-06-02] MEDS: Senna/Docusate Sodium 1 Tablet 2 TABLET PO (08:11)
[2023-06-02] MEDS: Gabapentin 100 MG Capsule 200 MG PO (08:11)
[2023-06-02] MEDS: proCHLORPERazine 10 MG/2 ML Vial 5 MG IV (08:11)
[2023-06-02] MEDS: 0.9% Saline Lock 10 ML Syringe IV (08:15)
[2023-06-02] MEDS: Acetaminophen/Butalbital/Caffe 1 Tablet PO (08:16)
[2023-06-02] MEDS: Topiramate 100 MG Tablet 200 MG PO (08:20)
[2023-06-02] MEDS: carBAMazepine 200 MG Tablet 100 MG PO (08:20)
[2023-06-02] MEDS: Enoxaparin 40 MG/0.4 ML Syringe SC (08:21)
[2023-06-02] MEDS: glipiZIDE 5 MG Tablet PO (08:22)
[2023-06-02] MEDS: Pantoprazole Sodium 40 MG Tablet PO (08:22)
[2023-06-02] MEDS: Insulin Glargine-YFGN 100 UNIT/ML Pen 16 UNIT SC (08:22)
[2023-06-02] MEDS: DULoxetine Hcl 60 MG Capsule PO (08:22)
--- NOTE | 2023-06-02 10:16 | PCM.DC ---
Discharge Instructions Diet Discharge Diet: Low fat / Low cholesterol and Carb Control Diet Activity Discharge Activity: Return to Normal Activity Dressing / Incision Call your doctor if you observe: Fever of 101 or Higher, Shortness of breath, Dizziness, Fainting spells, Swelling in the ankles, Chest pain and Increased palpitations (irregular heartbeat) Follow Up Care Test Results: Test results from this visit will be discussed in further detail at your follow-up appointment, if applicable. Discharge Plan Admission Admit Date/Time: 05/30/23 23:28 Attending Provider: Amos Medina Primary Care Provider: Vi Eng Consulting Providers: Bossman Cano Discharge Orders/Prescriptions Prescriptions: New cefdinir 300 mg capsule 300 mg PO BID 3 Days Qty: 6 0RF Continued atorvastatin 80 mg tablet 80 mg PO QHS Patient Comments: TAKE ONE TABLET BY MOUTH DAILY AT 9PM AT BEDTIME furosemide 40 mg tablet 40 mg PO DAILY Hold Instructions: stop taking until your nausea and diarrhea are resolved Patient Comments: TAKE ONE TABLET BY MOUTH DAILY AT 9AM hejscncmaf-xczgnixczrtxa-tuxu 50-325-40 mg Tablet 1 tab PO Q6H PRN (Reason: Headache) potassium chloride 20 mEq tablet,ER particles/crystals 20 meq PO DAILY Hold Instructions: Order Completed Patient Comments: TAKE ONE TABLET BY MOUTH DAILY AT 9AM fluticasone propionate 50 mcg/actuation spray,suspension 1 spray INTRANASAL DAILY PRN (Reason: Check with primary doctor) Patient Comments: INSTILL 1 SPRAY INTO EACH NOSTRIL ONCE DAILY glipizide 5 mg tablet 5 mg PO BID Patient Comments: TAKE ONE TABLET BY MOUTH TWICE DAILY @ 9AM & 5PM before meals glucagon 1 mg Kit Hold Instructions: Pt is ill ipratropium-albuterol 0.5 mg-3 mg(2.5 mg base)/3 mL solution for nebulization 3 ml inhalation Q6H PRN (Reason: sob) Patient Comments: INHALE THREE ML DIRECTED EVERY 6 HOURS NEEDED (BULK) omeprazole 40 mg capsule,delayed release(DR/EC) 40 mg PO DAILY Patient Comments: TAKE ONE CAPSULE BY MOUTH DAILY AT 9AM gabapentin 800 mg tablet 800 mg PO QHS Patient Comments: TAKE ONE TABLET BY MOUTH DAILY AT 9PM AT BEDTIME carbamazepine 200 mg tablet extended release 12 hr 200 mg PO BID docusate sodium 100 mg Capsule 100 mg PO BID diclofenac sodium 75 mg tablet,delayed release (DR/EC) 75 mg PO BID PRN (Reason: pain) Patient Comments: TAKE ONE TABLET BY MOUTH TWICE DAILY NEEDED (VIAL) gabapentin 100 mg Capsule 200 mg PO DAILY insulin lispro 100 unit/mL solution See Protocol subcut ACHS Protocol: 6. Sliding Scale Insulin Custom Condition: mg/dl range Dose/Route: Number of Units Protocol Text: Custom Sliding Scale Patient Comments: INJECT PER SLIDING SCALE THREE TIMES DAILY FOLLOWS 2 UNITS 150-200, 4 UNITS 200-251, 6 UNITS 252-300, 8 UNITS 301-350, 10 UNITS 351-400, CALL MD OVER 400 (MAX 48 UNITS PER DAY) (BULK) albuterol sulfate 90 mcg/actuation HFA aerosol inhaler 90 inh INHALATION Q4H PRN PRN (Reason: Wheezing) Patient Comments: INHALE TWO PUFFS BY MOUTH DIRECTED EVERY 4 HOURS NEEDED FOR WHEEZING OR FOR SHORTNESS OF BREATH (BULK) topiramate 100 mg tablet 200 mg PO BID Patient Comments: TAKE ONE TABLET BY MOUTH THREE TIMES DAILY @9AM-3PM-9PM (DME) FreeStyle Es 2 Sensor Kit MISCELLANEOUS Patient Comments: apply 1 SENSOR to back OF UPPER ARM REMOVE AND REPLACE every 14 d... (REFER TO PRESCRIPTION NOTES). (DME) FreeStyle Es 2 [place] Mis MISCELLANEOUS Patient Comments: USE CONTINUOUSLY TO MONITOR BLOOD SUGARS DAILY (DME) Droplet Insulin Syr(half unit) 0.5 mL 31 gauge x 5/16 syringe MISCELLANEOUS Patient Comments: USE TO INJECT INSULIN UNDER THE SKIN EVERY MEAL AND AT BEDTIME PER SLIDING SCALE ergocalciferol (vitamin D2) 1,250 mcg (50,000 unit) capsule 50,000 unit PO MO Patient Comments: TAKE 1 CAPSULE BY MOUTH EVERY WEDNESDAY AT 9AM (VIAL) Rx Instructions: takes on mondays melatonin 12 mg Tablet 12 mg PO QHS promethazine 25 mg tablet 25 mg PO Q6H PRN PRN (Reason: Nausea) Qty: 12 0RF insulin glargine 100 unit/mL (3 mL) insulin pen 15 unit SUBCUT QHS Patient Comments: INJECT 22 UNITS SUBCUTANEOUSLY IN THE MORNING and INJECT 15 UNITS AT BEDTIME (BULK) insulin glargine [Lantus U-100 Insulin] 100 unit/mL Solution 22 unit SUBCUT DAILY duloxetine 60 mg capsule,delayed release(DR/EC) 60 mg PO BID Patient Comments: TAKE ONE CAPSULE BY MOUTH TWICE DAILY @ 9AM & 5PM midodrine 5 mg tablet 5 mg PO TID Patient Comments: IF SBP <140 Rx Instructions: do not give last dose of day after 6PM or within 4 hrs of bedtime Nuedexta 20-10 mg capsule 1 cap PO DAILY Ubrelvy 100 mg tablet 100 mg PO .COMPLEX PRN (Reason: MIGRAINE) Rx Instructions: 100 mg orally 1 TABLET. IF NO IMPROVEMENT WITHIN 2 HRS 2 TABS. NOT TO EXCEED 2 TABS IN 24H PRN; Referrals / Follow Up: Vi Eng DO [Primary Care Provider] - Within 1 Week Disposition Disposition (needs filled in before D/C Order can be placed): Home, Self Care
--- NOTE | 2023-06-02 11:25 | PCM.DC.SUM ---
Providers Date of Admission: 05/30/23 Primary Care Physician: Dr. Vi Eng, DO Reason For Visit: MULTIPLE FALLS Diagnosis Discharge Diagnosis (1) Multiple falls: Status: Acute Code(s): R29.6 - Repeated falls (2) Breakthrough seizure: Status: Acute Code(s): G40.919 - Epilepsy, unspecified, intractable, without status epilepticus (3) UTI (urinary tract infection): Status: Acute Code(s): N39.0 - Urinary tract infection, site not specified Qualifiers: Urinary tract infection type: acute cystitis Hematuria presence: without hematuria Qualified Code(s): N30.00 - Acute cystitis without hematuria Medications at Discharge Home Medications albuterol sulfate 90 mcg/actuation aerosol inhaler 90 inh inhalation Q4H PRN PRN Wheezing 09/03/22 atorvastatin 80 mg tablet 80 mg PO QHS 09/03/22 [id number]-qbakmdowirzqh-lfvpxwpf 50 mg-325 mg-40 mg tablet 1 tab PO Q6H PRN Headache 09/03/22 carbamazepine 200 mg tablet,extended release,12 hr 200 mg PO BID 09/03/22 diclofenac sodium 75 mg tablet,delayed release 75 mg PO BID PRN pain 09/03/22 docusate sodium 100 mg capsule 100 mg PO BID CONSTIPATION 09/03/22 ergocalciferol (vitamin D2) 1,250 mcg (50,000 unit) capsule 50,000 unit PO MO Check with primary doctor 09/03/22 flash glucose scanning reader ([employer] Es 2 [place]) 09/03/22 flash glucose sensor (FreeStyle Es 2 Sensor kit) 09/03/22 fluticasone propionate 50 mcg/actuation nasal spray,suspension 1 spray intranasal DAILY PRN Check with primary doctor 09/03/22 furosemide 40 mg tablet 40 mg PO DAILY Check with primary doctor 09/03/22 gabapentin 100 mg capsule 200 mg PO DAILY 09/03/22 gabapentin 800 mg tablet 800 mg PO QHS 09/03/22 glipizide 5 mg tablet 5 mg PO BID Check with primary doctor 09/03/22 glucagon 1 mg injection kit mg Check with primary doctor 09/03/22 insulin lispro 100 unit/mL subcutaneous solution See Protocol subcut ACHS Check with primary doctor 09/03/22 insulin syr/ndl U100 half shirley 0.5 mL 31 gauge x 5/16 (Droplet Insulin Syringe (half unit)) 09/03/22 ipratropium 0.5 mg-albuterol 3 mg (2.5 mg base)/3 mL nebulization soln 3 ml inhalation Q6H PRN sob 09/03/22 melatonin 12 mg tablet 12 mg PO QHS 09/03/22 omeprazole 40 mg capsule,delayed release 40 mg PO DAILY 09/03/22 potassium chloride 20 mEq tablet,extended release(part/cryst) 20 meq PO DAILY 09/03/22 topiramate 100 mg tablet 200 mg PO BID 09/03/22 promethazine 25 mg tablet 25 mg PO Q6H PRN PRN Nausea #12 TABLETS 11/08/22 midodrine 5 mg tablet 5 mg PO TID HYPOTENSION 02/05/23 dextromethorphan 20 mg-quinidine 10 mg capsule (Nuedexta) 1 cap PO DAILY DEPRESSION 02/06/23 ubrogepant 100 mg tablet (Ubrelvy) 100 mg PO .COMPLEX PRN MIGRAINE 02/06/23 duloxetine 60 mg capsule,delayed release 60 mg PO BID 05/31/23 insulin glargine 100 unit/mL (3 mL) subcutaneous pen 15 unit subcut QHS 05/31/23 insulin glargine 100 unit/mL subcutaneous solution (Lantus U-100 Insulin) 22 unit subcut DAILY Check with primary doctor 05/31/23 cefdinir 300 mg capsule 300 mg PO BID 3 days #6 caps 06/02/23 Hospital Course Operations None Procedures Electroencephalogram Summary of Care Provided Minutes Spent on Discharge: 35 Hospital Course: Per HPI: FAM VINSON, is a 57 F with a significant history of a seizure disorder; and diabetes mellitus who presents to the emergency department with multiple falls. She fell 2 times a day before presentation and on the day of presentation she fell 1 time. With the last fall she noticed herself on the ground. Reportedly she was shaking. Urine was abnormal. Follow-up questions following results of urinalysis patient stated that she has increased frequency of urination with decreased urine output at each time. She has abrasion on right ankle. Also she reports headache. She reports that she was given Tylenol at the emergency department and that the Tylenol did not touh her, She is at hospital she is given something which knocks it down and then she wakes up she has no headache. Also reports left rib pain from falling. On Presentation ambulation was tried but patient could not tolerate. Hospital Course: 1. Multiple falls with possible breakthrough seizure in the setting of a UTI from pansensitive E. coli/urinary retention?57-year-old female with a history of seizures presents to the hospital after multiple falls at home and what appeared to be a possible breakthrough seizure. Her antiepileptic medication level was normal and she did have an EEG that was unremarkable. She had no further episodes of seizure-like activity with the initiation of antibiotics and she will be discharged on oral antibiotics to complete treatment of her UTI. Her hospital care was complicated by an episode of urinary retention however with ambulation and periodic straight catheterizations she was able to start urinating on her own prior to discharge. I discussed with her the plan for possible discharge today she expressed understanding of the risk benefits going home and would like to go home today. I do recommend that she follow-up with her PCP in 3 to 5 days. 2. Type 2 diabetes, hyperlipidemia, anxiety, depression, COPD, GERD are all chronic medical conditions which complicate her care. Her home medications continued where appropriate Physical Exam Narrative General: Alert, Oriented x3, Cooperative, No apparent distress HEENT: Atraumatic, PERRLA, EOMI, Normocephalic Oral: Moist Mucosa Neck: Supple, No JVD Lungs: Diminished, Normal air movement, No rhonchi, No wheeze, No rales Cardiovascular: Regular rate, Regular Rhythm, Normal S1, Normal S2, No murmurs Abdomen: Soft, Non Tender, Non-Distended, No Hepato-splenomegaly Extremities: No edema, Capillary Refill Less than 3 Seconds Skin: No rashes, No breakdown Musculoskeletal: No Tenderness to Palpation of Joints or Extremities Neurological: Cranial nerves II-XII grossly intact, Motor Exam 5/5 strength throughout, Sensory exam intact to light touch and pain Psych/Mental Status: Normal Affect, Appropriate Weight / BMI Weight Weight: 210 lb 12.8 oz Body Mass Index (BMI) 35.0 ABG / Lab / Microbiology Data 06/01/23 06:40 06/01/23 06:40 Laboratory: Laboratory Results - last 24 hr 06/01/23 11:43: POC Glucose 243 H 06/01/23 16:52: POC Glucose 186 H 06/01/23 22:03: POC Glucose 214 H 06/02/23 06:50: POC Glucose 152 H Microbiology: Microbiology 05/30/23 22:00 Urine, Random Urine Culture - Final Presumptive E. coli D/C Instructions Discharge Diet: Low fat / Low cholesterol and Carb Control Diet Call your doctor if you observe: Fever of 101 or Higher, Shortness of breath, Dizziness, Fainting spells, Swelling in the ankles, Chest pain and Increased palpitations (irregular heartbeat) Meaningful Use Info Meaningful Use Diagnoses (Choose all that apply): None applicable Discharge Plan Admission Admit Date/Time: 05/30/23 23:28 Attending Provider: Amos Medina Primary Care Provider: Vi Eng Consulting Providers: Bossman Cano Discharge Orders/Prescriptions Prescriptions: New cefdinir 300 mg capsule 300 mg PO BID 3 Days Qty: 6 0RF Continued atorvastatin 80 mg tablet 80 mg PO QHS Patient Comments: TAKE ONE TABLET BY MOUTH DAILY AT 9PM AT BEDTIME furosemide 40 mg tablet 40 mg PO DAILY Hold Instructions: stop taking until your nausea and diarrhea are resolved Patient Comments: TAKE ONE TABLET BY MOUTH DAILY AT 9AM [id number]-zckpgmbcqwglj-emyd 50-325-40 mg Tablet 1 tab PO Q6H PRN (Reason: Headache) potassium chloride 20 mEq tablet,ER particles/crystals 20 meq PO DAILY Hold Instructions: Order Completed Patient Comments: TAKE ONE TABLET BY MOUTH DAILY AT 9AM fluticasone propionate 50 mcg/actuation spray,suspension 1 spray INTRANASAL DAILY PRN (Reason: Check with primary doctor) Patient Comments: INSTILL 1 SPRAY INTO EACH NOSTRIL ONCE DAILY glipizide 5 mg tablet 5 mg PO BID Patient Comments: TAKE ONE TABLET BY MOUTH TWICE DAILY @ 9AM & 5PM before meals glucagon 1 mg Kit Hold Instructions: Pt is ill ipratropium-albuterol 0.5 mg-3 mg(2.5 mg base)/3 mL solution for nebulization 3 ml inhalation Q6H PRN (Reason: sob) Patient Comments: INHALE THREE ML DIRECTED EVERY 6 HOURS NEEDED (BULK) omeprazole 40 mg capsule,delayed release(DR/EC) 40 mg PO DAILY Patient Comments: TAKE ONE CAPSULE BY MOUTH DAILY AT 9AM gabapentin 800 mg tablet 800 mg PO QHS Patient Comments: TAKE ONE TABLET BY MOUTH DAILY AT 9PM AT BEDTIME carbamazepine 200 mg tablet extended release 12 hr 200 mg PO BID docusate sodium 100 mg Capsule 100 mg PO BID diclofenac sodium 75 mg tablet,delayed release (DR/EC) 75 mg PO BID PRN (Reason: pain) Patient Comments: TAKE ONE TABLET BY MOUTH TWICE DAILY NEEDED (VIAL) gabapentin 100 mg Capsule 200 mg PO DAILY insulin lispro 100 unit/mL solution See Protocol subcut ACHS Protocol: 6. Sliding Scale Insulin Custom Condition: mg/dl range Dose/Route: Number of Units Protocol Text: Custom Sliding Scale Patient Comments: INJECT PER SLIDING SCALE THREE TIMES DAILY FOLLOWS 2 UNITS 150-200, 4 UNITS 200-251, 6 UNITS 252-300, 8 UNITS 301-350, 10 UNITS 351-400, CALL MD OVER 400 (MAX 48 UNITS PER DAY) (BULK) albuterol sulfate 90 mcg/actuation HFA aerosol inhaler 90 inh INHALATION Q4H PRN PRN (Reason: Wheezing) Patient Comments: INHALE TWO PUFFS BY MOUTH DIRECTED EVERY 4 HOURS NEEDED FOR WHEEZING OR FOR SHORTNESS OF BREATH (BULK) topiramate 100 mg tablet 200 mg PO BID Patient Comments: TAKE ONE TABLET BY MOUTH THREE TIMES DAILY @9AM-3PM-9PM (DME) FreeStyle Es 2 Sensor Kit MISCELLANEOUS Patient Comments: apply 1 SENSOR to back OF UPPER ARM REMOVE AND REPLACE every 14 d... (REFER TO PRESCRIPTION NOTES). (DME) FreeStyle Es 2 [place] Mis MISCELLANEOUS Patient Comments: USE CONTINUOUSLY TO MONITOR BLOOD SUGARS DAILY (DME) Droplet Insulin Syr(half unit) 0.5 mL 31 gauge x 5/16 syringe MISCELLANEOUS Patient Comments: USE TO INJECT INSULIN UNDER THE SKIN EVERY MEAL AND AT BEDTIME PER SLIDING SCALE ergocalciferol (vitamin D2) 1,250 mcg (50,000 unit) capsule 50,000 unit PO MO Patient Comments: TAKE 1 CAPSULE BY MOUTH EVERY WEDNESDAY AT 9AM (VIAL) Rx Instructions: takes on mondays melatonin 12 mg Tablet 12 mg PO QHS promethazine 25 mg tablet 25 mg PO Q6H PRN PRN (Reason: Nausea) Qty: 12 0RF insulin glargine 100 unit/mL (3 mL) insulin pen 15 unit SUBCUT QHS Patient Comments: INJECT 22 UNITS SUBCUTANEOUSLY IN THE MORNING and INJECT 15 UNITS AT BEDTIME (BULK) insulin glargine [Lantus U-100 Insulin] 100 unit/mL Solution 22 unit SUBCUT DAILY duloxetine 60 mg capsule,delayed release(DR/EC) 60 mg PO BID Patient Comments: TAKE ONE CAPSULE BY MOUTH TWICE DAILY @ 9AM & 5PM midodrine 5 mg tablet 5 mg PO TID Patient Comments: IF SBP <140 Rx Instructions: do not give last dose of day after 6PM or within 4 hrs of bedtime Nuedexta 20-10 mg capsule 1 cap PO DAILY Ubrelvy 100 mg tablet 100 mg PO .COMPLEX PRN (Reason: MIGRAINE) Rx Instructions: 100 mg orally 1 TABLET. IF NO IMPROVEMENT WITHIN 2 HRS 2 TABS. NOT TO EXCEED 2 TABS IN 24H PRN; Referrals / Follow Up: Vi Eng DO [Primary Care Provider] - Within 1 Week Disposition Disposition (needs filled in before D/C Order can be placed): Home, Self Care Charges/Coding Visit Charges Inpatient E&M: 39510 Disch Hosp >30min
[2023-06-02 12:22] LABS: Bedside Glucose 239 mg/dL (74-106)
== END 2023-06-02 11:53 | disposition home or self-care (01) ==
LOC: ED 22:36 → MS3 23:51
PROVIDERS: Admitting Provider Hospitalist; Emergency Provider Emergency Medicine; PCP Family Medicine; Visit Provider Family Medicine
DX: N30.00 Acute cystitis without hematuria (principal); J44.9 Chronic obstructive pulmonary disease, unspecified; G40.909 Epilepsy, unspecified, not intractable, without status epilepticus; Z79.4 Long term (current) use of insulin; E11.9 Type 2 diabetes mellitus without complications; R29.6 Repeated falls; S90.511A Abrasion, right ankle, initial encounter; E86.0 Dehydration; F41.9 Anxiety disorder, unspecified; E78.00 Pure hypercholesterolemia, unspecified; Z87.891 Personal history of nicotine dependence; W19.XXXA Unspecified fall, initial encounter; I10 Essential (primary) hypertension; Z79.899 Other long term (current) drug therapy; B96.20 Unspecified Escherichia coli [E. coli] as the cause of diseases classified elsewhere; R33.9 Retention of urine, unspecified
CPT/HCPCS: 36415; 70450; 71101; 73564; 73630; 80048; 80156; 81001; 82962; 84484; 85025; 87086; 87186; 95819; 96361; 96365; 96366; 96372; 96375; 96376; 97162; 97166; 99221; 99285; 99406; J7030; A4216; G0378

== ENCOUNTER 2023-07-28 14:00 | Outpatient (RCR) | payer MEDICARE, MEDICAID, SELFPAY ==
--- NOTE | 2023-06-29 11:54 | HP.PTEVAL ---
Patient's Visit Information Visit Information Visit Information: FAM VINSON is a 57 year old F referred to Physical Therapy by Dr. Amos Medina MD with a diagnosis of falls , debility. Date of Evaluation: 06/29/23 Physical Therapist: Rome Wadsworth, DPT, OCS, CSCS Visit Plan Frequency: 2-3x /Week Duration: 4-6 Weeks Plan: 2-3x/week for 4-6 for 1. balance weight shifts and vestibuilar challenges ec 2. LE core and postural/UE strength program pateint can eventually do at home to I. 3. Gait for step length and weight shift.(pt is to use walker but may practice in therapy with cane/no AD as appropriate. Subjective Subjective: I fall lately. Been using cane for 3 yrs. last one was reaching into cupboard and had to grab counter. Back hurts at times. Balance is getting to worse. Spins at times and with positional changes and takes meclizine for a few months. Blood pressure alzo drops and takes meds for this. Thought she had MS but testing did not show it. Can lie down without spinning, rolling in bed does nnto casue it, only when sit up and lasts typically a short time. Has neuropathy form DM, below knees and worsening over the years. Sleep is OK. Disability: from multpile reasons. Spends day helping sistert which she lives with due to her own health issues. Has seizures and amnesia at times. has had strokes. Gets seizures every couple months. Dresses self, showers self, bathroom self. No regular exercises. Has wh walker but does not use it often. Pain migraine: Pain Intensity (Out of 10): 0 Pain Intensity Range: 0 Comment: shots monthly. LBP: Pain Intensity (Out of 10): 0 Pain Intensity Range: 0 Objective Objective: cane R ambulation, very short steps and poor weight shift, slow. Unable to take functional steps safely without AD. Using walker takes longer steps and walks a more functional speed. Transfer chair I with UE. slow weight shift. FGA only possible with walker. LE strength 3+ hips knees and ankles, tightness present gastroc and soleus. AROM WFL but slow. sensation to gross light touch at large deficit below knees. reflexes 0/3 patella and achilles coordination to reciprocal tapping slow but able. Balance/Special Test Scores Functional Gait Assessment Score: 16 % Disability: 46.6700 Lower Extremity Functional Score: 32 TUG Test Time Seconds: 21 Goals Goal 1:: 20 TUG to show improved gait Goal Time Frame: 4-6 Weeks Goal 2:: FGA score 20/30 to show improved balance Goal Time Frame: 4-6 Weeks Goal 3:: I appropriate HEP for balance and strength to limit future problems Goal Time Frame: 4-6 Weeks Goal 4:: LEFS 40 Goal Time Frame: 4-6 Weeks Rehabilitation Potential Physical Therapy Diagnosis: weakness and balance deficits limiting safe funciton Rehabilitation Potential: Fair Anticipated Interventions Patient/Client Instruction: Educate patient on: Condition and Risk Factors For the Purpose of:: To increase ROM, To improve nutrient delivery to tissue, To improve muscle performance and motor function, To increase tolerance to activity/condition/position, To improve gait and locomotor functions, To improve balance and To improve safety with gait Therapeutic Exercise to Include: Strength training, Balance training, Postural training, Flexibilty training, Passive ROM and Active ROM For the Purpose of:: To improve nutrient delivery to tissue, To improve muscle performance and motor function, To increase tolerance to activity/condition/position, To improve ability of physical actions for home/community/work/leisure, To improve gait and locomotor functions, To improve balance and To improve safety with gait Text: Thank you for the opportunity to evaluate your patient. For Medicare and Medicare HMO plans, please review the plan of care and approve it. It will need to be FAXED BACK to us at [phone] for Medicare purposes. For Medicare only, by signing this I certify the plan of care. Please let me know if there are questions or concerns regarding this plan of care. Physician Signature: Date:
--- NOTE | 2023-08-31 11:27 | HP.PTREVAL_ITS ---
Re-Evaluation Intro: Dr. Amos Medina MD, It has been my pleasure to treat [facility]SON over the last 8 visits for falls , debility. Please see the progress note below for an update on the physical therapy plan of care! Subjective Subjective: I was in hospital for 8 days as they found 3 new lesions on my brain. have to see neuro next week. Doing better overall due to 5 days of steroids. Neuro needs to make decision on where to go from here. Using wh wal ker to get around except in bathroom. Basic ADLs are I. does dishes, makes simple meals. No steps at home(has chairlift). Doing leg lifts at home as exercises and sink ex daily 10x3. Hard to lift heavier items at home and wants to strengthen arms. Objective Objective/Function: FGA is +2, LEFS is muich better, TUG is 3 seconds better. Still slow ambulation and unsteady without AD per FGA, would be unsafe without walker. UE strength 3+. Overall some better but inconsistence with therapy due to hospital stay has halted progress but steroids may have helped. Appropriate to continue per POC new 6 weeks for new goals and continue toward FGA goal. Fair prognosis with consistency depending on neuro interventions. Plan Plan Plan: 2x/week for 6 weeks for 1. funcitonal balance and gait training with less restrictive device as safety allows, head movements, bending, turning, stepping up. 2. progress UE and LE strength to tolerance. 3. Balance exercises Balance/Gait/Functional tests Balance/Special Test Scores Functional Gait Assessment Score: 18 % Disability: 40.0000 Lower Extremity Functional Score: 50 TUG Test Time Seconds: 18 Tug Test: <20 sec.=mostly independent Goals Goals Goal 1:: 20 TUG to show improved gait Goal Time Frame: 4-6 Weeks Goal Progress: Goal Met Goal 2:: FGA score 20/30 to show improved balance Goal Time Frame: 4-6 Weeks Goal Progress: Progressing, approp Goal 3:: I appropriate HEP for balance and strength to limit future problems Goal Time Frame: 4-6 Weeks Goal Progress: Goal Met Goal 4:: LEFS 40 Goal Time Frame: 4-6 Weeks Goal Progress: Goal Met Goal 5:: TUG 15 or less with walker and 20 or less without walker as safety allows. Goal Time Frame: 4-6 Weeks Goal Progress: NEW GOAL Goal 6:: Pt feel 75% better overall mobility and lifting heavier groceries. Goal Time Frame: 4-6 Weeks Goal Progress: NEW GOAL Anticipated Interventions Anticipated Interventions Patient/Client Instruction: Educate patient on: Condition and Risk Factors For the Purpose of:: To increase ROM, To improve nutrient delivery to tissue, To improve muscle performance and motor function, To increase tolerance to activity/condition/position, To improve gait and locomotor functions, To improve balance and To improve safety with gait Therapeutic Exercise to Include: Strength training, Balance training, Postural training, Flexibilty training, Passive ROM and Active ROM For the Purpose of:: To improve nutrient delivery to tissue, To improve muscle performance and motor function, To increase tolerance to activity/condition/position, To improve ability of physical actions for home/community/work/leisure, To improve gait and locomotor functions, To improve balance and To improve safety with gait Re-Evaluation Ending Re-evaluation ending: Please do not hesitate to contact me at [phone] by phone or if you have questions or concerns regarding this new plan of care! Sincerely, Rome Wadsworth, DPT, OCS, CSCS
--- NOTE | 2023-10-18 11:15 | HP.PT.NRP ---
Patient Information Patient Information: FAM VINSON was seen in my office for initial evaluation on 06/29/23. The following Plan of Care was established for this patient: POC Established Initial Frequency: 2-3x /Week Initial Duration: 4-6 Weeks Anticipated Interventions Patient/Client Instruction: Educate patient on: Condition and Risk Factors For the Purpose of:: To increase ROM, To improve nutrient delivery to tissue, To improve muscle performance and motor function, To increase tolerance to activity/condition/position, To improve gait and locomotor functions, To improve balance and To improve safety with gait Therapeutic Exercise to Include: Strength training, Balance training, Postural training, Flexibilty training, Passive ROM and Active ROM For the Purpose of:: To improve nutrient delivery to tissue, To improve muscle performance and motor function, To increase tolerance to activity/condition/position, To improve ability of physical actions for home/community/work/leisure, To improve gait and locomotor functions, To improve balance and To improve safety with gait Last Seen Last Seen: This patient was last seen in our office 08/31/23. Pertinent comments regarding their Physical therapy will appear below: Pt seen 8 visits of POC and was 50% better. POC was to continue but she never returned. IT does appear as if she has had a number of hospital stays since then. at this point, I will discontinue due to nonattendance. At this point I will be discontinuing this patient from physical therapy. I would be happy to see this patient again in the future if found appropriate by the physician. Thank you! Rome Wadsworth, DPT, OCS, CSCS Balance/Gait/Functional tests Balance/Special Test Scores Functional Gait Assessment Score: 18 % Disability: 40.0000 Lower Extremity Functional Score: 50 TUG Test Time Seconds: 18 Tug Test: <20 sec.=mostly independent
== END 2023-07-28 19:00 | disposition home or self-care (01) ==
LOC: PT 14:00
PROVIDERS: PCP Family Medicine; Referring Provider Family Medicine; Visit Provider Family Medicine
DX: R29.6 Repeated falls (principal); R53.81 Other malaise
CPT/HCPCS: 97110; 97163

== ENCOUNTER 2023-07-29 14:18 | Inpatient (IN) | payer MEDICARE, SELFPAY ==
[2023-07-29 14:23] VITALS: BP 95/67; PULSE 64; RESP 11; TEMP 36.5; O2SAT 98; BMI 35.4
[2023-07-29 15:22] VITALS: BP 95/64; PULSE 61; RESP 16; O2SAT 99
--- NOTE | 2023-07-29 15:37 | CT_ITS ---
STUDY: CT BRAIN WITHOUT CONTRAST REASON FOR EXAM: Female, 57 years old. Trauma RADIATION DOSAGE (If Supplied By Facility): CTDIvol = ( 44.99 ) mGy, DLP = ( 779.24 ) mGycm TECHNIQUE: Transaxial CT imaging of the brain was performed without administration of intravenous contrast material. Individualized dose optimization techniques were used for this CT. COMPARISON: 05/30/2023 FINDINGS: Normal soft tissue structures. Normal calvarium. There is mild cerebral atrophy with widening of the extra-axial spaces and ventricular dilatation. There are areas of decreased attenuation within the white matter tracts of the supratentorial brain, consistent with microvascular disease changes. Normal basal ganglia and thalami. Normal brainstem. Normal cerebellum. There is no intracranial hemorrhage. There are no findings of an acute ischemic infarction. Normal visualized paranasal sinuses. CT/Brain/Head without Contrast IMPRESSION: Chronic involutional changes of the brain. No change or acute abnormality. Electronically Signed: Arias Pablo MD at 18:13 EST ,
--- NOTE | 2023-07-29 15:37 | CT_ITS ---
STUDY: CT CERVICAL SPINE WITHOUT CONTRAST REASON FOR EXAM: Female, 57 years old. trauma RADIATION DOSAGE (If Supplied By Facility): CTDIvol = ( 26.53 ) mGy, DLP = ( 608.03 ) mGycm TECHNIQUE: High resolution transaxial imaging was performed without contrast material. Sagittal and coronal images were reconstructed. Individualized dose optimization techniques were used for this CT. COMPARISON: None FINDINGS: No definite acute fracture/dislocation. The cervical junction is intact. C1-C2 articulation is intact. There is straightening. There is normal alignment. Facet joints are intact at all levels bilaterally. No jumped facets. There is multilevel spondyloarthropathy. Multilevel degenerative disc disease seen. Multilevel loss of disc height. Multilevel posterior marginal osteophytes and disc bulges. Multilevel neural foraminal narrowing. Multilevel narrowing of the spinal canal. Visualized paraspinal soft tissues and structures are unremarkable. CT/Spine Cervical without Contras IMPRESSION: There is no definite acute fracture/dislocation. Degenerative changes. Electronically Signed: Arias Pablo MD at 18:16 EST ,
--- NOTE | 2023-07-29 15:38 | EKG12_ITS ---
Test Reason : SYNCOPY Blood Pressure : / mmHG Vent. Rate : 057 BPM Atrial Rate : 057 BPM P-R Int : 198 ms QRS Dur : 094 ms QT Int : 432 ms P-R-T Axes : 032 -44 008 degrees QTc Int : 420 ms Sinus bradycardia Left axis deviation Moderate voltage criteria for LVH, may be normal variant ( R in aVL , [place] product ) Nonspecific ST abnormality Abnormal ECG Confirmed by ROB WHITE, PHILLIP ([id number]), graphic editor MEGAN CARPIO ([id number]) on 07/30/2023 10:26:23 AM Referred By: PL Confirmed By:PHILLIP RIVAS MD
--- NOTE | 2023-07-29 15:41 | EX.ED.DYSGE1 ---
HPI History of Present Illness Chief Complaint: Syncope Informant: patient Narrative Narrative: Patient presents with syncope and low blood pressure. She has been dealing with hypotension for months. She takes midodrine on a as needed basis. But does not feel like it is really helping. She fell Wednesday and abraded her knee. She fell twice today. It sounds like she fully lost consciousness. She did hit her head today. Mild headache and neck ache but no other areas of pain. She has seen her primary doctor. It sounds like she was admitted here once. She has an appointment with a rn women services but has not gotten in yet. She is not sure who she is seeing. She states she is eating and drinking well with no diarrhea but her mouth looks quite dry. After I left the room I note that she is on Lasix per the med list and I need to go back and ask her again because she denied any meds such as this. [facility] Medical History Allergic rhinitis Anxiety Brain TIA Chronic migraine COPD (chronic obstructive pulmonary disease) Depression Diabetes mellitus, type 2 Former smoker Former tobacco use GERD (gastroesophageal reflux disease) History of CVA (cerebrovascular accident) HTN (hypertension) Hypercholesterolemia Migraines Obesity Orthostasis Psoriasis Seizure disorder Transient hypotension Home Medications albuterol sulfate 90 mcg/actuation aerosol inhaler 90 inh inhalation Q4H PRN PRN Wheezing 09/03/22 [History Last Taken Unknown] atorvastatin 80 mg tablet 80 mg PO QHS 09/03/22 [History Last Taken Unknown] swzuutxhtv-wykeubzbivdvo-ezlvmyvh 50 mg-325 mg-40 mg tablet 1 tab PO Q6H PRN Headache 09/03/22 [History Last Taken Unknown] carbamazepine 200 mg tablet,extended release,12 hr 200 mg PO BID 09/03/22 [History Last Taken Unknown] diclofenac sodium 75 mg tablet,delayed release 75 mg PO BID PRN pain 09/03/22 [History Last Taken Unknown] docusate sodium 100 mg capsule 100 mg PO BID CONSTIPATION 09/03/22 [History Last Taken Unknown] ergocalciferol (vitamin D2) 1,250 mcg (50,000 unit) capsule 50,000 unit PO MO Check with primary doctor 09/03/22 [History Last Taken Unknown] flash glucose scanning reader ([employer] Es 2 [place]) 09/03/22 [History Last Taken Unknown] flash glucose sensor ([employer] Es 2 Sensor kit) 09/03/22 [History Last Taken Unknown] fluticasone propionate 50 mcg/actuation nasal spray,suspension 1 spray intranasal DAILY PRN Check with primary doctor 09/03/22 [History Last Taken Unknown] gabapentin 100 mg capsule 200 mg PO DAILY 09/03/22 [History Last Taken Unknown] gabapentin 800 mg tablet 800 mg PO QHS 09/03/22 [History Last Taken Unknown] glucagon 1 mg injection kit mg Check with primary doctor 09/03/22 [History Last Taken Unknown] insulin syr/ndl U100 half shirley 0.5 mL 31 gauge x 5/16 (Droplet Insulin Syringe (half unit)) 09/03/22 [History Last Taken Unknown] omeprazole 40 mg capsule,delayed release 40 mg PO DAILY 09/03/22 [History Last Taken Unknown] potassium chloride 20 mEq tablet,extended release(part/cryst) 20 meq PO DAILY 09/03/22 [History Last Taken Unknown] topiramate 100 mg tablet 200 mg PO BID 09/03/22 [History Last Taken Unknown] promethazine 25 mg tablet 25 mg PO Q6H PRN PRN Nausea #12 TABLETS 11/08/22 [Rx Last Taken Unknown] midodrine 5 mg tablet 5 mg PO TID HYPOTENSION 02/05/23 [History Last Taken Unknown] dextromethorphan 20 mg-quinidine 10 mg capsule (Nuedexta) 1 cap PO BID DEPRESSION 02/06/23 [History Last Taken Unknown] ubrogepant 100 mg tablet (Ubrelvy) 100 mg PO .COMPLEX PRN MIGRAINE 02/06/23 [History Last Taken Unknown] duloxetine 60 mg capsule,delayed release 60 mg PO BID 05/31/23 [History Last Taken Unknown] insulin glargine 100 unit/mL (3 mL) subcutaneous pen 22 unit subcut QHS 05/31/23 [History Last Taken Unknown] insulin glargine 100 unit/mL subcutaneous solution (Lantus U-100 Insulin) 16 unit subcut DAILY Check with primary doctor 05/31/23 [History Last Taken Unknown] furosemide 20 mg tablet (Lasix) 20 mg PO DAILY 07/29/23 [History Last Taken Unknown] semaglutide 0.25 mg or 0.5 mg (2 mg/3 mL) subcutaneous pen injector (Ozempic) 0.25 mg subcut QWEEK 07/29/23 [History Last Taken Unknown] tizanidine 4 mg tablet 4 mg PO Q8H PRN muscle spasticity 07/29/23 [History Last Taken Unknown] Allergy/AdvReac Type Severity Reaction Status Date / Time latex Allergy Rash Verified 07/29/23 14:25 levofloxacin [From Levaquin] Allergy Hives Verified 07/29/23 14:25 ondansetron [From Zofran] Allergy Hives Verified 07/29/23 14:25 nalbuphine [From Nubain] AdvReac Other Verified 07/29/23 14:25 Family History Father Cancer Mother Cancer Surgical History Hx of cholecystectomy Hx of tonsillectomy Hx of tubal ligation Social History household members: none housing: other details: Recent transition from Assisted Living to home. Smoking Status: Former smoker alcohol intake: never substance use type: does not use ROS ROS ED ROS Narrative A complete review of systems was performed and is negative except as documented in the history of present illness. Some specific details below. Constitutional: No recent fevers or chills. She does report some malaise and muscle aches for the last week when I specifically talked to her. EYE: No discharge, visual complaints, or pain. ENT: No difficulty swallowing. No swelling. No pain. No reflux symptoms. CV: She denies palpitations. But also see history of present illness Respiratory: When specifically asked she has had just a very mild cough for a week but no productivity. No chest pain or dyspnea with that though. GI: No abdominal pain. No nausea vomiting diarrhea. No blood in stool. She tells me she is eating and drinking normally. : No frequency dysuria or hematuria. She denies any change in volume of output. Musculoskeletal: No recent trauma. No pains. No swelling. Skin: No rash but she does have abrasions on the right knee. Nondiaphoretic. Neuro: No weakness or numbness. Endocrine: No polyuria or polydipsia. EXAM Physical Exam Narrative Exam Narrative: CONSTITUTIONAL: Patient is nontoxic in appearance. The patient looks comfortable. Work of breathing looks normal. HEENT: No notable trauma. Mucous membranes actually look rather dry. No sinus tenderness. No indication of pain with swallowing. EYES: No conjunctival injection. No proptosis. NECK:No JVD. No stridor. She does have some posterior tenderness. CARDIOVASCULAR: Regular rate. Regular rhythm. No notable murmur. No JVD. Rate is about 60-65 with no ectopy on the monitor. RESPIRATORY: No respiratory distress. Breathing is unlabored. No wheezes. No rhonchi. No rales. No pain with a deep breath. No chest wall tenderness. No coughing while I am in the room. Saturations are normal at 99% on room air showing no hypoxia. GASTROINTESTINAL: Not distended. Bowel sounds are normal. No tenderness. No guarding. No rebound. No palpable mass. No bruit is heard. GENITOURINARY: No tenderness over the bladder. No CVA tenderness. MUSCULOSKELETAL: Mild abrasions over right knee but no deformity. No real tenderness. No effusion. NEUROLOGICAL: Patient is alert and appropriate. No focal deficit noted. SKIN: No noted rashes. No diaphoresis. No noted pallor. PSYCHIATRIC: Patient is calm. Mood is appropriate. Const Vital Signs: 07/29/23 14:23 07/29/23 15:22 07/29/23 15:22 Temperature 97.7 F L Temperature Source Temporal Pulse Rate 64 61 Respiratory Rate 11 L 16 Respiratory Effort Normal Respiratory Pattern Normal Blood Pressure 95/67 95/64 Blood Pressure Mean 76 74 Pulse Ox 98 99 Oxygen Delivery Method Room Air Room Air 07/29/23 17:00 07/29/23 19:24 07/29/23 22:24 Temperature Temperature Source Pulse Rate 64 62 73 Respiratory Rate 12 14 12 Respiratory Effort Respiratory Pattern Blood Pressure 125/73 H 120/80 115/70 Blood Pressure Mean 90 93 85 Pulse Ox 100 99 97 Oxygen Delivery Method Room Air Room Air MDM MDM MDM Narrative Medical decision making narrative: Patient's CBC is overall normal. Patient's electrolytes show no marked abnormalities. Creatinine is higher than her baseline but still within normal limits. She does have a mild high BUN to creatinine ratio indicating some degree of dehydration. Patient's liver function test show no acute process. Patient's urinalysis shows 4+ bacteria but only 0-5 white cells. It is sent for a culture. Patient's blood sugar dropped here. We tried to get oral glucose. It kept dropping. She went to the 20s. As we had had trouble getting an IV, I placed an intraosseous line in her left knee. This was done with medium length red needle without difficulty after cleaning the area extensively. She had discomfort with drawback and flush. Her right one had some abrasions. Fluids are running. We gave her D50 which worked well. She is awake and alert. We have gotten her fluids. Her blood pressure is better now. But she still feels nauseated. She feels weak. We sent off viral studies which so far negative. We tried to get her up out of bed but she states she feels too weak and unsafe. I will talk to the hospitalist about admission. I do not know why she is having such symptoms. They have been going on for months but getting worse. She has an appointment with a rn women services but has not yet seen them. This may be multifactorial and could including blood pressure and sugar levels. I do note that she still is on the Lasix but it 20 mg. She states this was for swelling. No history of CHF. I think it may be reasonable if we hold this. She does have some signs of dehydration. She possibly has a UTI as she has had these before but her urinalysis is not convincing at this time. But she is not able to get up and walk without feeling too weak like she is going to pass out or fall Lab Data Attestation: I reviewed the patient's lab results. Labs: Laboratory Results - last 24 hr 07/29/23 07/29/23 07/29/23 15:27 16:57 17:35 WBC 6.4 RBC 4.06 L Hgb 12.4 Hct 38.9 MCV 95.8 MCH 30.5 MCHC 31.9 L RDW Std Deviation 47.3 H RDW Coeff of He 13.3 Plt Count TNP MPV 11.5 Immature Gran % (Auto) 0.500 Neut % (Auto) 50.1 Lymph % (Auto) 43.3 H Milam % (Auto) 3.9 Eos % (Auto) 1.7 Baso % (Auto) 0.5 Absolute Neuts (auto) 3.2 Absolute Lymphs (auto) 2.79 Nucleated RBC % 0 Platelet Estimate ADEQUATE RBC Morphology N CHROM Anisocytosis RARE Macrocytosis RARE Sodium 141 Potassium 4.0 Chloride 111 H Carbon Dioxide 23.0 Anion Gap 7 BUN 21 H Creatinine 1.02 Estim Creat Clear Calc 73.32 Est GFR (MDRD) Af Amer 72 Est GFR (MDRD) Non-Af 59 L BUN/Creatinine Ratio 20.6 H Glucose 94 Calcium 9.2 Total Bilirubin 0.30 AST 15 ALT 33 Alkaline Phosphatase 131 H Total Protein 7.5 Albumin 3.9 Globulin 3.6 Albumin/Globulin Ratio 1.1 Urine Color Yellow Urine Clarity Clear Urine pH 6.0 Ur Specific [place] 1.010 Urine Protein 15 H Urine Glucose (UA) Normal Urine Ketones Negative Urine Occult Blood Negative Urine Nitrite Negative Urine Bilirubin Negative Urine Urobilinogen Normal Ur Leukocyte Esterase 100 H Urine RBC 0 SEEN Urine WBC 0-5 SEEN Ur Squamous Epith Cells 0 SEEN Urine Bacteria 4+ Urine Mucus 0 SEEN POC Glucose 104 07/29/23 07/29/23 07/29/23 18:37 19:34 20:23 WBC RBC Hgb Hct MCV MCH MCHC RDW Std Deviation RDW Coeff of He Plt Count MPV Immature Gran % (Auto) Neut % (Auto) Lymph % (Auto) [place] % (Auto) Eos % (Auto) Baso % (Auto) Absolute Neuts (auto) Absolute Lymphs (auto) Nucleated RBC % Platelet Estimate RBC Morphology Anisocytosis Macrocytosis Sodium Potassium Chloride Carbon Dioxide Anion Gap BUN Creatinine Estim Creat Clear Calc Est GFR (MDRD) Af Amer Est GFR (MDRD) Non-Af BUN/Creatinine Ratio Glucose Calcium Total Bilirubin AST ALT Alkaline Phosphatase Total Protein Albumin Globulin Albumin/Globulin Ratio Urine Color Urine Clarity Urine pH Ur Specific [place] Urine Protein Urine Glucose (UA) Urine Ketones Urine Occult Blood Urine Nitrite Urine Bilirubin Urine Urobilinogen Ur Leukocyte Esterase Urine RBC Urine WBC Ur Squamous Epith Cells Urine Bacteria Urine Mucus POC Glucose 28 L* 119 H 135 H 07/29/23 21:41 WBC RBC Hgb Hct MCV MCH MCHC RDW Std Deviation RDW Coeff of He Plt Count MPV Immature Gran % (Auto) Neut % (Auto) Lymph % (Auto) [place] % (Auto) Eos % (Auto) Baso % (Auto) Absolute Neuts (auto) Absolute Lymphs (auto) Nucleated RBC % Platelet Estimate RBC Morphology Anisocytosis Macrocytosis Sodium Potassium Chloride Carbon Dioxide Anion Gap BUN Creatinine Estim Creat Clear Calc Est GFR (MDRD) Af Amer Est GFR (MDRD) Non-Af BUN/Creatinine Ratio Glucose Calcium Total Bilirubin AST ALT Alkaline Phosphatase Total Protein Albumin Globulin Albumin/Globulin Ratio Urine Color Urine Clarity Urine pH Ur Specific [place] Urine Protein Urine Glucose (UA) Urine Ketones Urine Occult Blood Urine Nitrite Urine Bilirubin Urine Urobilinogen Ur Leukocyte Esterase Urine RBC Urine WBC Ur Squamous Epith Cells Urine Bacteria Urine Mucus POC Glucose 155 H Radiography Diagnostic Testing: Clinical Impression(s) from Imaging Studies Brain CT 07/29/23 15:37 IMPRESSION: Chronic involutional changes of the brain. No change or acute abnormality. Electronically Signed: Arias Pablo MD at 18:13 EST , Cervical Spine CT 07/29/23 15:37 IMPRESSION: There is no definite acute fracture/dislocation. Degenerative changes. Electronically Signed: Arias Pablo MD at 18:16 EST , EKG Initial EKG: Comments: My independent interpretation of the patient's EKG shows sinus rhythm with mild bradycardic rate of 57. No ventricular ectopy. No acute ST elevation or depression. There are diffuse nonspecific changes. Borderline LVH. NV interval is normal but toward the longer end. QRS duration and QTc are normal. Discharge Plan Triage Chief Complaint: Syncope ED Provider: Sedrick Tena Dx/Rx/DC Orders Clinical Impression: Recurrent syncope, Hypoglycemia, Dehydration Primary Care Provider: Vi Eng Disposition Disposition: [facility] Capacity Legal Wire Basket Maker Reflex Medical hold order details:: IF a medical hold is selected below, a suggested order for a MEDICAL HOLD will reflex upon signing the document. Next of kin: [place] law dictates a PRIORITY LIST for identifying legal decision-maker/legal next of kin in the following order (LNOK): 1st: The patient?s legal guardian, if any 2nd: The patient's spouse (if status is questionable, consult Risk Management) 3rd: The patient?s adult child(jaqueline) (majority, if multiple children) 4th: The patient?s parents 5th: The patient?s adult siblings (majority, if multiple children siblings)
[2023-07-29 16:16] LABS: Mucous, Urine 0 SEEN /hpf (<or=2+); Red Blood Cells-Urine 0 SEEN /hpf (0-5); Squamous Epithelial Cells - UA 0 SEEN /hpf (5-10)
[2023-07-29 16:21] LABS: Color, Urine Yellow (Yellow); Glucose, Dipstick Normal (Normal); Ketone-Dipstick Negative (Negative); Leukocyte Esterase-Dipstick 100 /ul (Negative); Nitrite-Dipstick Negative (Negative); Occult Blood-Urine Negative /ul (Negative); Protein-Dipstick 15 mg/dl (Negative); Urine Bilirubin Dipstick Negative (Negative); Urine Clarity Clear (Clear); Urine Urobilinogen Normal (Normal)
[2023-07-29 16:32] LABS: Bacteria 4+ /hpf (None Seen)
[2023-07-29 16:33] LABS: White Blood Cells 0-5 SEEN /hpf (0-5)
--- NOTE | 2023-07-29 16:40 | ED.RN ---
PT ARRIVED ON EMS COT, EMS MOVES PATIENT'S PURSE TO THE COUNTER TO TRANSFER PATIENT TO HOSPITAL CART. PT STATES CAN I HAVE MY PURSE ON MY LAP . RN EXPLAINED THAT WE NEED TO GET HER MOVED OVER, INTO A GOWN, CHECKED IN FOR THE DOCTOR TO SEE HER AND THEN I WOULD HAND HER HER PURSE. THESE ACTIVITIES WERE COMPLETED AND PATIENT'S PURSE THAT WAS ON THE COUNTER WAS RETURNED TO HER.
[2023-07-29 17:00] VITALS: BP 125/73; PULSE 64; RESP 12; O2SAT 100
--- NOTE | 2023-07-29 17:00 | ED.RN ---
several nurses attempted multiple IV starts. all unsuccessful, no IV access obtained. Dr. Tena aware. lab called to draw blood.
[2023-07-29 17:14] LABS: Bedside Glucose 104 mg/dL (74-106)
--- NOTE | 2023-07-29 17:30 | ED.RN ---
NURSE AT THE BEDSIDE TO OBTAIN BLOODWORK/IV. PT STATES SHE IS CONCERNED HER SUGAR IS LOW. RN CHECKED GLUCOSE AT THIS TIME, SUGAR WAS 104. RN ASKED PATIENT WHEN THE LAST TIME SHE HAD INSULIN AND SHE STATED IT WAS THIS MORNING .
[2023-07-29 17:47] LABS: Absolute Lymphocyte Count 2.79 X10^3/uL (0.83-4.51); Absolute Neutrophil Count 3.2 X10^3/uL (2.0-7.7); Basophil# 0.03 X10^3/uL; Basophil% 0.5 % (0-1); Eosinophil# 0.11 X10^3/uL; Eosinophils% 1.7 % (0-5); Hematocrit 38.9 % (37-47); Hemoglobin 12.4 g/dL (12.0-15.0); Lymphocyte # 2.79 X10^3/ul (0.83-4.51); Lymphocyte % 43.3 % (19-41); Mean Corp Hgb Conc 31.9 g/dL (32-36); Mean Corpuscular Hgb 30.5 pg (27.0-32.0); Mean Corpuscular Volume 95.8 fL (81-99); Mean Platelet Vol. 11.5 fl (6.2-12.0); Monocyte# 0.25 X10^3/uL; Monocyte% 3.9 % (0-10); NRBC Flagged by Analyzer 0 % (0-5); Neutrophil # 3.23 X10^3/uL (2.7-7.7); Neutrophil % 50.1 % (47-70); POSITIVE COUNT YES; RBC Distribution Width CV 13.3 % (11.6-14.6); RBC Distribution Width SD 47.3 fl (35.1-43.9); Red Blood Count 4.06 M/mm3 (4.2-5.4); White Blood Count 6.4 K/mm3 (4.4-11.0)
[2023-07-29 18:09] LABS: ALB/GLOB Ratio 1.1 RATIO (0.9-2.4); AST(SGOT) 15 U/L (15-37); Alanine Aminotransfer ALT/SGPT 33 U/L (13-56); Albumin, Serum 3.9 g/dL (3.2-5.0); Alkaline Phosphatase 131 U/L (45-117); Anion Gap 7 (5-15); BUN 21 mg/dL (7-18); BUN/Creat Ratio 20.6 RATIO (10-20); Calcium,Total 9.2 mg/dL (8.5-10.1); Chloride 111 mmol/L (98-107); Creatinine, Serum 1.02 mg/dL (0.55-1.02); EST Glomerular Filtration Rate 59 mL/min (>60); Est Glom Filt Rate - Afr Amer 72 mL/min (>60); Estimated Creatinine Clearance 73.32 ml/min; Globulin 3.6 g/dL (2.2-4.2); Glucose 94 mg/dL (74-106); Protein, Total 7.5 g/dL (6.4-8.2); Sodium Level 141 mmol/L (136-145)
[2023-07-29 18:15] LABS: Platelet Estimate ADEQUATE (ADEQ)
[2023-07-29 18:16] LABS: Anisocytosis RARE; Macrocytosis RARE; Red Cell Morphology N CHROM NORMAL (NORM C&C)
--- NOTE | 2023-07-29 19:10 | ED.RN ---
Addendum entered by Kelsie Heath 07/29/23 23:24: IO placed in left tibial tuberosity Original Note: Juliann Humphries in room to start IV and draw blood around 1830. observed decreased loc and reported to this RN. based on pt's hx of diabetes, this RN checked a bedside glucose with a result of 28. pt's vitals WNL, responsive to voice, confused and disoriented. Liz, extension service specialist in charge, notified at 1838. dr. marcano notified at 1840. ordered oral glucose. several RNs attempting to obtain IV access while oral glucose is administered. unable to obtain IV access after multiple attempts, bedside glucose rechecked with a result of 72. patient remains responsive only to voice, disoriented. obtained IO access in left knee. amp of D50 given and fluids initiated with pressure bag. patient regaining consciousness. alert and oriented to self. patients blood glucose continues to increase. pt now alert and oriented x4
[2023-07-29] MEDS: 0.9% Normal Saline (1000mL) 1,000 ML 1000 ML IV (19:20)
[2023-07-29] MEDS: Dextrose 50%-Water 25 GM/50 ML DISP.SYRIN IV (19:21)
[2023-07-29 19:24] VITALS: BP 120/80; PULSE 62; RESP 14; O2SAT 99
[2023-07-29 19:51] LABS: Bedside Glucose 119 mg/dL (74-106)
[2023-07-29 19:51] LABS: Bedside Glucose 28 mg/dL (74-106)
[2023-07-29 20:41] LABS: Bedside Glucose 135 mg/dL (74-106)
[2023-07-29] MEDS: proMETHazine 25 MG Tablet 12.5 MG PO (21:03)
[2023-07-29] MEDS: HYDROcodone Bitartrate/Apap 5/325 Tablet PO (21:04)
[2023-07-29 21:59] LABS: Bedside Glucose 155 mg/dL (74-106)
--- NOTE | 2023-07-29 22:10 | PCM.HP.STD ---
[facility] - General General Date of Admission: 07/29/23 Date of Service: 07/29/23 Chief Complaint: Syncope and Hypoglycemia. [facility] Narrative FAM VINSON, is a 57 F with a past medical history of essential hypertension, hyperlipidemia, obesity; with BMI 35.4 this admission, diabetes mellitus type 2; of unknown control, history of TIA/CVA, seizure disorder; on carbamazepine, gabapentin and topiramate, history of tobacco abuse; with subsequent COPD, migraine headaches, chronic allergic rhinitis, depression with anxiety, GERD, psoriasis, osteoarthritis, history of orthostatic hypotension; on midodrine 5 mg p.o. 3 times daily and history of recent admission here from May 30, 2023 to June 02, 2023 for treatment of multiple falls attributed to breakthrough seizure activity and UTI who presents to [facility] ER complaining of syncope and hypoglycemia. Ms. Vinson reports her symptoms began a few months prior to admission with intermittently low blood pressures resulting in syncopal events in spite of taking her midodrine as prescribed. This past Tuesday, July 25, 2023, she fell hurting her right knee and then she fell twice earlier today with what she suspects was a complete LOC. She does admit to hitting her head today with a subsequent mild headache and neck ache but she denies other areas of pain or signs of severe traumatic injury. She has seen her PCP, Dr. Vi Eng DO and she was also scheduled to see a pupil personnel services director - but she has not seen them yet and she is not sure who she is supposed to go see. She states she is eating and drinking well with no fever, chills, nausea, vomiting, diarrhea or diarrhea. In the ER she was noted to have severe hypoglycemia of 20 mg/dL shortly after admission with IO placed to give D50 with poor venous access complicated by recurrent syncope due to suspected orthostatic hypotension refractory to medical treatment with midodrine 5 mg PO TID and she was then admitted to the CDU under observation status for ongoing care for a stay that is suspected to be less than 48 hours. [facility] Medical History Allergic rhinitis Anxiety Brain TIA Chronic migraine COPD (chronic obstructive pulmonary disease) Depression Diabetes mellitus, type 2 Former smoker Former tobacco use GERD (gastroesophageal reflux disease) History of CVA (cerebrovascular accident) HTN (hypertension) Hypercholesterolemia Migraines Obesity Orthostasis Psoriasis Seizure disorder Transient hypotension Home Medications albuterol sulfate 90 mcg/actuation aerosol inhaler 90 inh inhalation Q4H PRN PRN Wheezing 09/03/22 [History Last Taken Unknown] atorvastatin 80 mg tablet 80 mg PO QHS 09/03/22 [History Last Taken Unknown] zbiwqndntw-zofsxhrgttvmb-cologgny 50 mg-325 mg-40 mg tablet 1 tab PO Q6H PRN Headache 09/03/22 [History Last Taken Unknown] carbamazepine 200 mg tablet,extended release,12 hr 200 mg PO BID 09/03/22 [History Last Taken Unknown] diclofenac sodium 75 mg tablet,delayed release 75 mg PO BID PRN pain 09/03/22 [History Last Taken Unknown] docusate sodium 100 mg capsule 100 mg PO BID CONSTIPATION 09/03/22 [History Last Taken Unknown] ergocalciferol (vitamin D2) 1,250 mcg (50,000 unit) capsule 50,000 unit PO MO Check with primary doctor 09/03/22 [History Last Taken Unknown] flash glucose scanning reader ([employer] Es 2 [place]) 09/03/22 [History Last Taken Unknown] flash glucose sensor ([employer] Es 2 Sensor kit) 09/03/22 [History Last Taken Unknown] fluticasone propionate 50 mcg/actuation nasal spray,suspension 1 spray intranasal DAILY PRN Check with primary doctor 09/03/22 [History Last Taken Unknown] gabapentin 100 mg capsule 200 mg PO DAILY 09/03/22 [History Last Taken Unknown] gabapentin 800 mg tablet 800 mg PO QHS 09/03/22 [History Last Taken Unknown] glucagon 1 mg injection kit mg Check with primary doctor 09/03/22 [History Last Taken Unknown] insulin syr/ndl U100 half shirley 0.5 mL 31 gauge x 5/16 (Droplet Insulin Syringe (half unit)) 09/03/22 [History Last Taken Unknown] omeprazole 40 mg capsule,delayed release 40 mg PO DAILY 09/03/22 [History Last Taken Unknown] potassium chloride 20 mEq tablet,extended release(part/cryst) 20 meq PO DAILY 09/03/22 [History Last Taken Unknown] topiramate 100 mg tablet 200 mg PO BID 09/03/22 [History Last Taken Unknown] promethazine 25 mg tablet 25 mg PO Q6H PRN PRN Nausea #12 TABLETS 11/08/22 [Rx Last Taken Unknown] midodrine 5 mg tablet 5 mg PO TID HYPOTENSION 02/05/23 [History Last Taken Unknown] dextromethorphan 20 mg-quinidine 10 mg capsule (Nuedexta) 1 cap PO BID DEPRESSION 02/06/23 [History Last Taken Unknown] ubrogepant 100 mg tablet (Ubrelvy) 100 mg PO .COMPLEX PRN MIGRAINE 02/06/23 [History Last Taken Unknown] duloxetine 60 mg capsule,delayed release 60 mg PO BID 05/31/23 [History Last Taken Unknown] insulin glargine 100 unit/mL (3 mL) subcutaneous pen 22 unit subcut QHS 05/31/23 [History Last Taken Unknown] insulin glargine 100 unit/mL subcutaneous solution (Lantus U-100 Insulin) 16 unit subcut DAILY Check with primary doctor 05/31/23 [History Last Taken Unknown] furosemide 20 mg tablet (Lasix) 20 mg PO DAILY 07/29/23 [History Last Taken Unknown] semaglutide 0.25 mg or 0.5 mg (2 mg/3 mL) subcutaneous pen injector (Ozempic) 0.25 mg subcut QWEEK 07/29/23 [History Last Taken Unknown] tizanidine 4 mg tablet 4 mg PO Q8H PRN muscle spasticity 07/29/23 [History Last Taken Unknown] Allergy/AdvReac Type Severity Reaction Status Date / Time latex Allergy Rash Verified 07/29/23 14:25 levofloxacin [From Levaquin] Allergy Hives Verified 07/29/23 14:25 ondansetron [From Zofran] Allergy Hives Verified 07/29/23 14:25 nalbuphine [From Nubain] AdvReac Other Verified 07/29/23 14:25 Family History Father Cancer Mother Cancer Surgical History Hx of cholecystectomy Hx of tonsillectomy Hx of tubal ligation Social History household members: none housing: other details: Recent transition from Assisted Living to home. Smoking Status: Former smoker alcohol intake: never substance use type: does not use ROS ROS Narrative Review of systems: General: Patient denies fevers or chills but she does admit to malaise. HENT: Patient admits to mild headache and neck ache after fall. EYES: Denies changes in vision or discharge from eyes. Resp: Patient admits to mild nonproductive cough for 1 week Cardiac: Patient admits to syncope x 2 today but denies chest pain or palpitations. GI: Denies abdominal pain, denies changes in bowel, denies nausea or vomiting. : Denies changes in urination Extremity: Patient does have an abrasion over the right knee. Musculoskeletal: Feels somewhat generally weak and unwell with diffuse muscle aches for the past week made worse by the IO in her left tibia which she would like removed immediately. Neuro: Denies any numbness/tingling Heme: Denies any bleeding or bruising Skin: Denies rashes Psychiatric: No complaints voiced related to uncontrolled depression or anxiety. Endocrine: No polyuria, polydipsia or polyphagia but patient was noted to have severe hypoglycemia of 20 mg/dL shortly after admission. The rest of the 14 point ROS was negative except for positives in HPI. Vital Signs Vital Signs Vital Signs: 07/29/23 14:23 07/29/23 15:22 07/29/23 15:22 Temperature 97.7 F L Temperature Source Temporal Pulse Rate 64 61 Respiratory Rate 11 L 16 Respiratory Effort Normal Respiratory Pattern Normal Blood Pressure 95/67 95/64 Blood Pressure Mean 76 74 Pulse Ox 98 99 Oxygen Delivery Method Room Air Room Air 07/29/23 17:00 07/29/23 19:24 Temperature Temperature Source Pulse Rate 64 62 Respiratory Rate 12 14 Respiratory Effort Respiratory Pattern Blood Pressure 125/73 H 120/80 Blood Pressure Mean 90 93 Pulse Ox 100 99 Oxygen Delivery Method Room Air Room Air Weight Weight: 219 lb 9.286 oz Body Mass Index (BMI) 35.4 Physical Exam Const alert, oriented x3 and no apparent distress General Appearance: cooperative HEENT normocephalic, head/scalp atraumatic and hearing grossly normal bilaterally HEENT Narrative: Oropharynx dry. Eyes PERRL and EOMs intact bilaterally Neck no lymphadenopathy and supple Neck Narrative: Patient does have mild posterior neck tenderness. Resp normal respiratory effort, no retractions, no use of accessory muscles and clear to auscultation bilaterally Cardio regular rate and regular rhythm GI normal to inspection, nondistended, normoactive bowel sounds, soft to palpation, non-tender and non-distended GI Narrative: Obese. Extremity Extremity Narrative: Patient has mild abrasion over right knee. Skin Skin Narrative: Patient has no evidence of rash but does have an abrasion over her right knee. Neuro oriented x3, CN's II-XII intact bilaterally, moves all extremities and no focal motor deficits Sensorium / Orientation: awake, alert, oriented to person, oriented to place and oriented to time Speech: speech normal Motor Exam: strength 5/5 throughout Psych affect normal Results Medical Records Data Attestation: I reviewed the patient's medical records Lab / Micro Data Attestation: I reviewed the patient's lab results. 07/29/23 17:35 07/29/23 17:35 Labs: Laboratory Results - last 24 hr 07/29/23 15:27: Urine Color Yellow, Urine Clarity Clear, Urine pH 6.0, Ur Specific Irons 1.010, Urine Protein 15 H, Urine Glucose (UA) Normal, Urine Ketones Negative, Urine Occult Blood Negative, Urine Nitrite Negative, Urine Bilirubin Negative, Urine Urobilinogen Normal, Ur Leukocyte Esterase 100 H, Urine RBC 0 SEEN, Urine WBC 0-5 SEEN, Ur Squamous Epith Cells 0 SEEN, Urine Bacteria 4+, Urine Mucus 0 SEEN 07/29/23 16:57: POC Glucose 104 07/29/23 17:35: WBC 6.4, RBC 4.06 L, Hgb 12.4, Hct 38.9, MCV 95.8, MCH 30.5, MCHC 31.9 L, RDW Std Deviation 47.3 H, RDW Coeff of He 13.3, Plt Count TNP, MPV 11.5, Immature Gran % (Auto) 0.500, Neut % (Auto) 50.1, Lymph % (Auto) 43.3 H, [place] % (Auto) 3.9, Eos % (Auto) 1.7, Baso % (Auto) 0.5, Absolute Neuts (auto) 3.2, Absolute Lymphs (auto) 2.79, Nucleated RBC % 0, Platelet Estimate ADEQUATE, RBC Morphology N CHROM, Anisocytosis RARE, Macrocytosis RARE, Sodium 141, Potassium 4.0, Chloride 111 H, Carbon Dioxide 23.0, Anion Gap 7, BUN 21 H, Creatinine 1.02, Estim Creat Clear Calc 73.32, Est GFR (MDRD) Af Amer 72, Est GFR (MDRD) Non-Af 59 L, BUN/Creatinine Ratio 20.6 H, Glucose 94, Calcium 9.2, Total Bilirubin 0.30, AST 15, ALT 33, Alkaline Phosphatase 131 H, Total Protein 7.5, Albumin 3.9, Globulin 3.6, Albumin/Globulin Ratio 1.1 07/29/23 18:37: POC Glucose 28 L* 07/29/23 19:34: POC Glucose 119 H 07/29/23 20:23: POC Glucose 135 H 07/29/23 21:41: POC Glucose 155 H Micro: Microbiology 07/29/23 16:15 Mucosa - Nose SARS-CoV-2, Influenza & RSV (PCR) - Final Imagaing Radiology Impression Brain CT 07/29/23 15:37 IMPRESSION: Chronic involutional changes of the brain. No change or acute abnormality. Electronically Signed: Arias Pablo MD at 18:13 EST , Cervical Spine CT 07/29/23 15:37 IMPRESSION: There is no definite acute fracture/dislocation. Degenerative changes. Electronically Signed: Arias Pablo MD at 18:16 EST , Assessment & Plan Assessment/Plan (1) Recurrent syncope: PLAN: Plan 1. Syncope; recurrent likely due to orthostatic hypotension refractory to medical treatment with midodrine 5 mg p.o. 3 times daily - Admit to CDU under observation status. Serialize troponin. Check echocardiogram to evaluate LVEF. Check carotid doppler to evaluate for stenosis. Check Lexiscan NST to evaluate for potential underlying ischemia. Increase midodrine to maximum dose of 10 mg PO TID. Finally, we will consult the pupil personnel services director on-call to see this patient on-rounds in the AM for further recommendations with help appreciated in advance. 2. DM-2; uncontrolled with Severe hypoglycemia of 20 mg/dL shortly after admission complicating #1 - Give D5 NS IVF to prevent recurrence and decrease Lantus dose. Remove IO from left tibia once alternative IV access is obtained due to patient having severe pain. 3. Seizure disorder; on carbamazepine, gabapentin and topiramate with recent admission here from May 30, 2023 to June 02, 2023 for treatment of multiple falls attributed to breakthrough seizure activity and UTI compounding #1 & #2 - Continue AED's as previous. Give IV Ativan prn for breakthrough seizure activity. Check prolactin level as this can be elevated after seizure activity. 4. Essential hypertension - Hold scheduled antihypertensives in light of #1. Give Hydralazine IV prn for systolic blood pressure > 160 mm Hg. 5. Hyperlipidemia - Resume statin and check lipid profile. 5. Obesity; with BMI 35.4 this admission - Weight loss will be recommended. Check TSH. 6. History of TIA/CVA - Noted. 7. History of tobacco abuse; with subsequent COPD - Noted with no evidence of flare. Give prn nebulizers. 8. Migraine headaches - Stable. Continue home medications as previous. 9. Chronic allergic rhinitis - Noted. Resume fluticasone. 10. Depression with anxiety - Continue home regimen. 11. GERD - Resume PPI. 12. Psoriasis - Stable. 13. Osteoarthritis - Give Tylenol prn. 14. DVT prophylaxis - Lovenox 40 mg sq daily. Total time: Approximately 60 minutes. Charges/Coding Visit Charges OBSV E&M: 40085 Observ/hosp same date L2
[2023-07-29 22:24] VITALS: BP 115/70; PULSE 73; RESP 12; O2SAT 97
--- NOTE | 2023-07-30 00:14 | ECHOD_ITS ---
Reason For Study: Syncope/Near Syncope Procedure This was a 2D Doppler, Color Flow transthoracic echocardiogram. Exam performed in department. Left Ventricle Normal LV size. Mild concentric left ventricular hypertrophy. Left ventricular systolic function is normal. The estimated ejection fraction is 65 %. Normal diastology for age. No regional wall motion abnormalities noted. Right Ventricle Normal RV size. Normal systolic function. Atria Normal left atrium. Normal right atrium. Mitral Valve The mitral valve is structurally normal. No prolapse or stenosis seen. Trivial mitral valve insufficiency. Tricuspid Valve Normal tricuspid valve. Trivial tricuspid valve insufficiency. Unable to estimate RV systolic pressure due to insufficient tricuspid regurgitant envelope. Aortic Valve Trisinus/trileaflet aortic valve. Pulmonic Valve Normal pulmonic valve. Trivial pulmonic valve insufficiency. Great Vessels Normal aortic root. Pericardium/Pleural No pericardial effusion. MMode/2D Measurements & Calculations LVIDd: 3.8 cm IVSd: 1.2 cm Ao root diam: 2.8 cm LVIDs: 2.3 cm LVPWd: 1.2 cm RVDd: 3.4 cm FS: 39.5 % LAV(MOD-bp): 41.5 ml LVAd ap4: 20.8 cm2 SV(MOD-sp4): 34.8 ml LAV(MOD-bp) Indexed: 20.1 ml/m2 LVLd ap4: 7.3 cm LAV(MOD-sp2): 32.7 ml EDV(MOD-sp4): 48.5 ml LAV(MOD-sp4): 41.9 ml EDV(sp4-el): 50.6 ml LVAs ap4: 9.5 cm2 LVLs ap4: 5.5 cm ESV(MOD-sp4): 13.7 ml ESV(sp4-el): 14.0 ml EF(MOD-sp4): 71.8 % EF(sp4-el): 72.2 % SV(sp4-el): 36.5 ml LA A4 area: 17.5 cm2 LA dimension(2D): 3.6 cm RA A4 area: 9.6 cm2 TAPSE: 2.0 cm Time Measurements MV dec time: 0.31 sec Doppler Measurements & Calculations MV E max sajan: 50.8 cm/sec Lat Peak E' Sajan: 7.2 cm/sec Med Peak E' Sajan: 5.2 cm/sec MV A max sajan: 91.5 cm/sec E/E' lat: 7.0 E/E' med: 9.7 MV E/A: 0.56 Ao V2 max: 165.1 cm/sec LV V1 max: 129.8 cm/sec MV dec slope: 166.1 cm/sec2 Ao max P.9 mmHg LV V1 max P.7 mmHg Ao V2 mean: 132.0 cm/sec LV V1 mean P.3 mmHg Ao mean P.2 mmHg LV V1 mean: 113.2 cm/sec Ao V2 VTI: 36.2 cm LV V1 VTI: 31.3 cm AV (velocity ratio): 0.86 PA V2 max: 83.8 cm/sec ECHO/Echo Complete Interpretation Summary The estimated ejection fraction is 65 %. Mild concentric left ventricular hypertrophy. Structually normal valves. Compared to prior study, there is no significant change. Ordering Physician: Lj Oreilly Referring Physician: Vi Eng Performed By: Debbie Camilo, CHAPIS, RVT
[2023-07-30 00:15] VITALS: BMI 34.8
[2023-07-30 00:41] VITALS: BP 136/79; PULSE 69; RESP 15; TEMP 36.4; O2SAT 95
[2023-07-30 00:56] LABS: Lactic Acid 1.6 mmol/L (0.4-1.9)
[2023-07-30 01:47] LABS: Troponin-I HS 5 pg/mL (3.0-54.0)
[2023-07-30] MEDS: Acetaminophen 325 MG Tablet 650 MG PO ×2 (02:38→20:22)
[2023-07-30] MEDS: proMETHazine 25 MG Tablet PO (02:39)
[2023-07-30 04:00] LABS: Bedside Glucose 187 mg/dL (74-106)
--- NOTE | 2023-07-30 05:55 | EKG12_ITS ---
Test Reason : pre op Blood Pressure : / mmHG Vent. Rate : 075 BPM Atrial Rate : 075 BPM P-R Int : 176 ms QRS Dur : 098 ms QT Int : 406 ms P-R-T Axes : 039 -42 082 degrees QTc Int : 453 ms Normal sinus rhythm Left axis deviation Minimal voltage criteria for LVH, may be normal variant ( [place] product ) Abnormal ECG When compared with ECG of 29-JUL-2023 15:58, MANUAL COMPARISON REQUIRED, DATA IS UNCONFIRMED Confirmed by ROB WHITE, PHILLIP ([id number]), associate editor MEGAN CARPIO ([id number]) on 07/30/2023 1:33:16 PM Referred By: Confirmed By:PHILLIP RIVAS MD
[2023-07-30] MEDS: Morphine 2 MG/ML Syringe IV (06:15)
[2023-07-30 06:22] VITALS: BP 140/63; PULSE 73; RESP 15; TEMP 36.9; O2SAT 97
[2023-07-30 06:51] LABS: Bedside Glucose 140 mg/dL (74-106)
[2023-07-30 11:50] VITALS: BP 110/69; PULSE 70; RESP 15; TEMP 36.6; O2SAT 96
[2023-07-30] MEDS: Gabapentin 100 MG Capsule 200 MG PO (11:57)
[2023-07-30] MEDS: Acetaminophen/Butalbital/Caffe 1 Tablet PO ×2 (11:57→18:01)
[2023-07-30] MEDS: Midodrine HCl 5 MG Tablet 10 MG PO ×2 (11:58→17:20)
[2023-07-30] MEDS: Potassium Chloride Oral Tablet 20 MEQ PO (11:58)
[2023-07-30] MEDS: Pantoprazole Sodium 40 MG Tablet PO (11:59)
[2023-07-30] MEDS: carBAMazepine 200 MG Tablet PO ×2 (11:59→21:05)
[2023-07-30] MEDS: DULoxetine Hcl 60 MG Capsule PO ×2 (11:59→21:03)
[2023-07-30] MEDS: Docusate Sodium 100 MG Capsule PO ×2 (11:59→21:04)
[2023-07-30 12:00] LABS: Bedside Glucose 140 mg/dL (74-106)
[2023-07-30] MEDS: Topiramate 100 MG Tablet 200 MG PO ×2 (12:00→21:06)
--- NOTE | 2023-07-30 12:41 | CHAPLAIN ---
Type of Pastoral Visit _x__ Initial Visit ___ Follow-up Visit ___ On-call Visit ___ General Patient Visit ___ Spiritual Assessment ___ Family Conference ___ Bereavement ___ Rapid Response ___ Code Blue ___ Other (describe below) Pastoral Care Referral From _x__ Patient ___ Family ___ Nurse ___ Physician ___ Marketing Support Coordinator ___ Helper Driver ___ Other (describe below) Sacrament/Intervention _x__ Active listening ___ Anointing ___ Gnosticism ___ Bereavement ___ Communion ___ Lisa exploration ___ ___ Life review _x__ Prayer ___ Reconciliation ___ Sacrament of Sick ___ Supportive presence ___ Wedding ___ Other (describe below) Pastoral Comments patient is being prepped for a test but this manager clinical applications was able to offer presence, comforting words, and a prayer to satisfaction of the pt
[2023-07-30] MEDS: oxyCODONE 5 MG Tablet PO ×2 (14:40→20:58)
--- NOTE | 2023-07-30 15:14 | STRESSREP_ITS ---
Stress Test Report Pharmacologic Lexiscan myocardial perfusion stress test. Indication; 57-year-old patient with syncopal episode Patient had history of TIA, no symptoms of chest pain reported had a history of seizure disorder with COPD and multiple episodes of syncope. Stress protocol: Resting EKG demonstrates. Normal sinus rhythm. 0.4 mg of regadenoson was infused per usual protocol followed by rapid intravenous saline flush injection continuous EKG monitoring was performed. The maximum heart rate attained was 77 bpm which was 46% of maximum predicted heart . Stress EKG showed[, no significant change from the resting EKG, with maximum heart rate of 77 bpm. Arrhythmia: No arrhythmia demonstrated Symptoms: Patient had no symptoms of chest pain Blood pressure at rest: 120/62 mmHg blood pressure at the end of stress: 120 over 62 mm mid Myocardial perfusion protocol. [12 mCi ]of Technetium 99m Sestamibi was injected at rest. [ 0.4 mg ]of Regadenoson was infused per usual protocol peak infusion[34 mCi ]of Technetium 99m sestamibi was injected. Stress images were obtained stress and rest images were reconstructed and compared in the short axis vertical and horizontal long axis. Gated images were also obtained Perfusion SPECT analysis: Review of the images demonstrate normal uptake of sestamibi at rest, post stress images demonstrate similar uptake of sestamibi to the resting images, homogeneous tracer uptake With no evidence of reversible myocardial ischemia. Gated SPECT analysis: The gated ejection fraction is 87% Hyperdynamic LV wall motion. Conclusion: Negative Lexiscan sestamibi myocardial perfusion study for reversible myocardial ischemia Normal myocardial perfusion study Hyperdynamic left ventricle. Maryjane Jiménez MD,FACC,[facility]
[2023-07-30 15:40] LABS: Bedside Glucose 72 mg/dL (74-106)
[2023-07-30 15:40] LABS: Bedside Glucose 141 mg/dL (74-106)
--- NOTE | 2023-07-30 16:18 | CASEMGMT ---
Met with patient to complete CORDON form. CORDON form explained to patient who voiced understanding and signed form. Original form placed in pt?s chart and copy provided to?patient. Michelle Pereyra, Discharge Planning Asst
--- NOTE | 2023-07-30 16:20 | PN.HOSP_ITS ---
Reason for Visit Reason for Visit: Diagnoses Syncope and collapse (07/29/23) Subjective Subjective Describes increasing neuropathy in her lower extremities with numbness and tingling in her left upper extremity. She is been having issues since August where there is a hyperintensity signal in her cervical spine she was transferred to [facility] at that time for workup unclear as to the results of that Objective Data Objective Data Vital Signs: Vital Signs Temp Pulse Resp BP Pulse Ox O2 Del Method 97.9 F 70 15 110/69 96 Room Air 07/30/23 11:50 07/30/23 11:50 07/30/23 11:50 07/30/23 11:50 07/30/23 11:50 07/30/23 12:08 Oxygen Delivery Method Room Air Weight: 216 lb 0.848 oz Body Mass Index (BMI) 34.8 Intake & Output: Intake and Output for Last 24 Hours 07/29/23 07/30/23 07/31/23 03:59 03:59 03:59 Intake Total 1000 / 1000 Output Total 400 / 400 Balance 1000 / 1000 -400 / -400 Lab / Micro Data 07/31/23 06:49 07/31/23 06:49 Labs: Laboratory Results - last 24 hr 07/29/23 15:27: Urine Color Yellow, Urine Clarity Clear, Urine pH 6.0, Ur Specific [place] 1.010, Urine Protein 15 H, Urine Glucose (UA) Normal, Urine Ketones Negative, Urine Occult Blood Negative, Urine Nitrite Negative, Urine Bilirubin Negative, Urine Urobilinogen Normal, Ur Leukocyte Esterase 100 H, Urine RBC 0 SEEN, Urine WBC 0-5 SEEN, Ur Squamous Epith Cells 0 SEEN, Urine Bacteria 4+, Urine Mucus 0 SEEN 07/29/23 16:57: POC Glucose 104 07/29/23 17:35: WBC 6.4, RBC 4.06 L, Hgb 12.4, Hct 38.9, MCV 95.8, MCH 30.5, MCHC 31.9 L, RDW Std Deviation 47.3 H, RDW Coeff of He 13.3, Plt Count TNP, MPV 11.5, Immature Gran % (Auto) 0.500, Neut % (Auto) 50.1, Lymph % (Auto) 43.3 H, [place] % (Auto) 3.9, Eos % (Auto) 1.7, Baso % (Auto) 0.5, Absolute Neuts (auto) 3.2, Absolute Lymphs (auto) 2.79, Nucleated RBC % 0, Platelet Estimate ADEQUATE, RBC Morphology N CHROM, Anisocytosis RARE, Macrocytosis RARE, Sodium 141, Potassium 4.0, Chloride 111 H, Carbon Dioxide 23.0, Anion Gap 7, BUN 21 H, Creatinine 1.02, Estim Creat Clear Calc 73.32, Est GFR (MDRD) Af Amer 72, Est GFR (MDRD) Non-Af 59 L, BUN/Creatinine Ratio 20.6 H, Glucose 94, Calcium 9.2, Total Bilirubin 0.30, AST 15, ALT 33, Alkaline Phosphatase 131 H, Total Protein 7.5, Albumin 3.9, Globulin 3.6, Albumin/Globulin Ratio 1.1 07/29/23 18:37: POC Glucose 28 L* 07/29/23 18:56: POC Glucose 72 L 07/29/23 19:08: POC Glucose 141 H 07/29/23 19:34: POC Glucose 119 H 07/29/23 20:23: POC Glucose 135 H 07/29/23 21:41: POC Glucose 155 H 07/30/23 00:23: Lactic Acid 1.6 07/30/23 01:19: Troponin I High Sens 5 07/30/23 03:31: POC Glucose 187 H 07/30/23 06:28: POC Glucose 140 H 07/30/23 11:38: POC Glucose 140 H Micro: Microbiology 07/29/23 15:27 Urine, Catheterized Urine Culture - Preliminary Presumptive E. coli 07/29/23 16:15 Mucosa - Nose SARS-CoV-2, Influenza & RSV (PCR) - Final Radiography Diagnostic Testing: Radiology Impression Brain CT 07/29/23 15:37 IMPRESSION: Chronic involutional changes of the brain. No change or acute abnormality. Electronically Signed: Arias Pablo MD at 18:13 EST , Cervical Spine CT 07/29/23 15:37 IMPRESSION: There is no definite acute fracture/dislocation. Degenerative changes. Electronically Signed: Arias Pablo MD at 18:16 EST , Echocardiogram 07/30/23 00:14 Interpretation Summary The estimated ejection fraction is 65 %. Mild concentric left ventricular hypertrophy. Structually normal valves. Compared to prior study, there is no significant change. Ordering Physician: Lj Oreilly Referring Physician: Vi Eng Performed By: Debbie Camilo, CHAPIS, RVT Physical Exam Narrative General: Alert, Oriented x3, Cooperative, No apparent distress HEENT: Atraumatic, PERRLA, EOMI, Normocephalic Oral: Moist Mucosa Neck: Supple, No JVD Lungs: Diminished, Normal air movement, No rhonchi, No wheeze, No rales Cardiovascular: Regular rate, Regular Rhythm, Normal S1, Normal S2, No murmurs Abdomen: Soft, Non Tender, Non-Distended, No Hepato-splenomegaly Extremities: No edema, Capillary Refill Less than 3 Seconds Skin: KEYA site with dressing on her left so Musculoskeletal: No Tenderness to Palpation of Joints or Extremities Neurological: Numbness and tingling in her left upper extremity more than her right, no sensation below mid thigh bilateral lower extremities either to the touch or positional changes of her toes Psych/Mental Status: Normal Affect, Appropriate Assessment & Plan Assessment/Plan (1) Recurrent syncope: PLAN: Plan 1. Recurrent syncope/seizure disorder ? Unclear as to the etiology, stress test was unremarkable and echo was normal. Will cancel carotid Dopplers as this is low yield in the setting of syncope ? She does have a history of seizure disorder awaiting PEG evaluation ? Continue with her antiseizure medications 2. Left upper extremity numbness and tingling with loss of sensation bilateral thighs down to her feet ? She cannot tell positional changes of her toes on both feet ? She does have a signal intensity in her cervical spine from August so we keri l repeat an MRI of her brain and C-spine ? She was transferred to [facility] in August unclear as to the results of that workup as she does not recall ? She does receive vitamin B12 injections and her last B12 was normal we will recheck 3. DM2 ? Had significant hyperglycemia and had an IO placed ? We will monitor blood sugars ? Accu-Cheks ACHS 4. HLD ? Continue with her Lipitor 5. Anxiety/depression ? Stable Continue with her home medications 6. GERD ? Stable ? Continue with PPI DVT: Lovenox Charges/Coding Visit Charges Inpatient E&M: 65060 Subs Hosp L2
--- NOTE | 2023-07-30 16:34 | MRI_ITS ---
INDICATION: previous T2 hyperintensity, CERVICAL SPINE LESION, INCREASING NEUROPATHY AND WEAKNESS, POSSIBLE MS EXAMINATION: MRI - MR Brain WO/W Contrast TECHNIQUE: MRI examination of brain obtained with standard protocol including multiplanar multiecho imaging. Pre and Postcontrast imaging obtained. IV Contrast Dosage and Agent: 19 mL Clariscan COMPARISON: 01/27/2023, CT examination of 07/29/2023. FINDINGS: HEMISPHERES, CEREBELLUM AND BRAINSTEM: 1. The cerebral parenchyma, ventricular system, subarachnoid spaces have normal configuration and density. There is a normal gyral pattern. There is normal manriquez/white differentiation. No midline shift.. 2. There is a moderate-sized area of T2 hyperintensity within the RIGHT centrum semiovale bowel, with nodular enhancement as this approaches the ependymal surface. The area of enhancement measures approximately 7 x 9 mm up. No evidence fluid restriction. There is mild T2 shine through. 3. Additional areas of nonenhancing white matter signal hyperintensity along the subtle ependymal surface of the LEFT parietal lobe and LEFT temporal lobe. 4. Subtle areas of T2 hyperintensity along the floor of the 4th ventricle at the level of the medulla. 5. 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 6. No intraparenchymal mass, hemorrhage, or acute territorial infarct. 7. The cerebellum, brainstem, basilar and suprasellar cisterns have normal configuration. No Chiari malformation. PITUITARY: Infundibulum and pituitary have normal configuration. Midline structures appear normal. CSF SPACES: Appropriate for age. No hydrocephalus. Basal cisterns are patent. VESSELS: 1. There are normal flow voids noted in the great vessels at the skull base ORBITS AND PARANASAL SINUSES: 1. Both globes, extraocular muscles, optic nerves and retrobulbar fat appear unremarkable. 2. Paranasal sinuses are clear. BONY ELEMENTS: Bony elements of the cranial vault, facial skeleton and skull base have normal appearance. SCALP AND SOFT TISSUES: Normal appearance of the soft tissues of the scalp and the visualized face OTHER: None MRI/Brain W/WO Contrast IMPRESSION: 1. Several focal areas of white matter signal hyperintensity without contrast enhancement. There is a stable area along the lateral aspect LEFT temporal lobe however it new area of nonenhancing subependymal white matter abnormality in the LEFT parietal lobe. 2. Interval development of a area of white matter hyperintensity with central nodular enhancement along the subependymal region of the RIGHT frontal lobe extending into the RIGHT centrum semiovale 3. Current findings are consistent with a demyelinating processes/MS with an area of acute demyelination in the RIGHT frontal lobe. Follow-up however in approximately 3-4 months is recommended to assure that there is not underlying mass associated involving the area of enhancement. 4. 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 5. No acute territorial infarct,. Electronically Signed: Rylan Reich MD at 20:37 EST ,
--- NOTE | 2023-07-30 16:34 | MRI_ITS ---
STUDY: MRI CERVICAL SPINE REASON FOR EXAM: Female, 57 years old. Previous T2 hyperintensity, CERVICAL SPINE LESION, INCREASING NEUROPATHY AND WEAKNESS TECHNIQUE: MRI examination of the cervical spine obtained with standard protocol including multiplanar multiecho Noncontrast imaging. Contrast: No contrast administered COMPARISON: 02/06/2023. FINDINGS: Vertebral bodies and alignment: 1. Vertebral body height is maintained, there is straightening cervical lordosis without interval change. No marrow edema occult fracture or subluxation. No areas of abnormal bony or paraspinous soft tissue enhancement. 2. Prevertebral soft tissue planes have normal appearance. 3. Normal appearance the odontoid process and alignment of the craniocervical junction. 4. Normal appearance the posterior muscular fascial planes of the cervical spine, and the posterior ligamentous support structure the cervical spine is intact. Intervertebral disc levels: C2-3: No evidence of disc herniation canal or foraminal stenosis. No evidence of nerve root impingement. C3-4: No evidence of disc herniation or canal stenosis. Mild facet hypertrophic changes and uncovertebral joint hypertrophy without evidence of foraminal stenosis or nerve root impingement. C4-5: Mild disc desiccation minimal disc bulge without disc herniation or canal stenosis. No foraminal stenosis or nerve root impingement. C5-6: Loss of disc height, broad-based posterior disc bulge and osteophyte complex with deformity the anterior epidural space, central canal maintained at approximately 10 mm. No cord compression. Bilateral foraminal stenosis greater on the LEFT than RIGHT due to uncovertebral joint hypertrophic changes and mild facet arthropathy. Findings appear stable. C6-7: Disc desiccation broad-based a RIGHT posterior lateral disc bulge and osteophyte complex without evidence of disc herniation canal or foraminal stenosis. No evidence cord compression. C7-T1: Normal endplates. Normal disc height, signal and morphology. Normal central canal and intervertebral neural foramina. Spinal CORD: There is normal appearance the spinal cord. No intramedullary signal abnormality, masses or syrinx. Normal appearance of the cervical medullary junction. There is a persistent area of subtle central signal hyperintensity at along the caudal aspect of the medulla associated with the floor the 4th ventricle without interval change consistent with an area of remote or stable demyelination. No evidence of cord compression. MRI/Spine Cervical W/WO Contrast IMPRESSION: 1. Unchanged disc changes at C5-6 and C6-7. Broad-based disc bulge mass effect complex at both levels greatest at C5-6. No cord compression or donte canal stenosis. 2. Multilevel foraminal stenosis contributed by uncovertebral joint and facet hypertrophic changes without change. 3. No evidence of cord compression or signal abnormality involving the spinal cord and no abnormal intramedullary contrast enhancement. 4. Persistent area of mild volume loss and T2 signal hyperintensity along the floor of the 4th ventricle at the level of the medulla consistent with an area of remote demyelinating plaque. Findings are stable. Electronically Signed: Rylan Reich MD at 22:02 EST ,
[2023-07-30] MEDS: Enoxaparin 40 MG/0.4 ML Syringe SC (17:20)
[2023-07-30 17:21] VITALS: BP 129/80; PULSE 66; RESP 14; TEMP 36.6; O2SAT 98
[2023-07-30] MEDS: tiZANidine HCl 2 MG Tablet 4 MG PO (17:38)
[2023-07-30 17:42] LABS: Bedside Glucose 137 mg/dL (74-106)
[2023-07-30] MEDS: LORazepam 1 MG Tablet PO (18:01)
[2023-07-30 18:20] LABS: Vitamin B12 400 pg/mL (211-911)
[2023-07-30 21:01] VITALS: BP 109/63; PULSE 61; RESP 18; TEMP 36.3; O2SAT 96
[2023-07-30] MEDS: Gabapentin 800 MG Tablet PO (21:02)
[2023-07-30] MEDS: Atorvastatin Calcium 80 MG Tablet PO (21:03)
[2023-07-30] MEDS: Insulin Glargine-YFGN 100 UNIT/ML Pen 12 UNIT SC (21:07)
[2023-07-30 22:46] LABS: Bedside Glucose 170 mg/dL (74-106)
[2023-07-31 03:09] VITALS: BP 101/61; PULSE 57; RESP 18; TEMP 36.1; O2SAT 97
[2023-07-31] MEDS: Acetaminophen/Butalbital/Caffe 1 Tablet PO (06:31)
[2023-07-31] MEDS: oxyCODONE 5 MG Tablet PO ×2 (06:32→16:19)
[2023-07-31 06:59] LABS: Bedside Glucose 118 mg/dL (74-106)
[2023-07-31 07:38] LABS: Absolute Lymphocyte Count 2.47 X10^3/uL (0.83-4.51); Absolute Neutrophil Count 4.7 X10^3/uL (2.0-7.7); Basophil# 0.04 X10^3/uL; Basophil% 0.5 % (0-1); Eosinophil# 0.21 X10^3/uL; Eosinophils% 2.6 % (0-5); Hematocrit 36.2 % (37-47); Hemoglobin 11.2 g/dL (12.0-15.0); Lymphocyte # 2.47 X10^3/ul (0.83-4.51); Lymphocyte % 30.4 % (19-41); Mean Corp Hgb Conc 30.9 g/dL (32-36); Mean Corpuscular Hgb 30.4 pg (27.0-32.0); Mean Corpuscular Volume 98.4 fL (81-99); Mean Platelet Vol. 11.3 fl (6.2-12.0); Monocyte# 0.63 X10^3/uL; Monocyte% 7.8 % (0-10); NRBC Flagged by Analyzer 0 % (0-5); Neutrophil # 4.74 X10^3/uL (2.7-7.7); Neutrophil % 58.3 % (47-70); Platelet Count 215 K/mm3 (150-450); RBC Distribution Width CV 13.6 % (11.6-14.6); RBC Distribution Width SD 48.1 fl (35.1-43.9); Red Blood Count 3.68 M/mm3 (4.2-5.4); White Blood Count 8.1 K/mm3 (4.4-11.0)
[2023-07-31 07:55] LABS: ALB/GLOB Ratio 0.9 RATIO (0.9-2.4); AST(SGOT) 21 U/L (15-37); Alanine Aminotransfer ALT/SGPT 33 U/L (13-56); Albumin, Serum 3.1 g/dL (3.2-5.0); Alkaline Phosphatase 125 U/L (45-117); Anion Gap 5 (5-15); BUN 17 mg/dL (7-18); Chloride 114 mmol/L (98-107); Creatinine, Serum 0.85 mg/dL (0.55-1.02); EST Glomerular Filtration Rate 73 mL/min (>60); Est Glom Filt Rate - Afr Amer 89 mL/min (>60); Estimated Creatinine Clearance 87.24 ml/min; Globulin 3.6 g/dL (2.2-4.2); Glucose 118 mg/dL (74-106); Protein, Total 6.7 g/dL (6.4-8.2); Sodium Level 141 mmol/L (136-145)
[2023-07-31 09:52] VITALS: BP 113/62; PULSE 72; RESP 18; TEMP 36.6; O2SAT 97
[2023-07-31] MEDS: Potassium Chloride Oral Tablet 20 MEQ PO (09:54)
[2023-07-31] MEDS: Gabapentin 100 MG Capsule 200 MG PO (09:54)
[2023-07-31] MEDS: Pantoprazole Sodium 40 MG Tablet PO (09:55)
[2023-07-31] MEDS: DULoxetine Hcl 60 MG Capsule PO ×2 (09:55→21:13)
[2023-07-31] MEDS: Enoxaparin 40 MG/0.4 ML Syringe SC (09:55)
[2023-07-31] MEDS: Topiramate 100 MG Tablet 200 MG PO ×2 (09:56→21:09)
[2023-07-31] MEDS: Docusate Sodium 100 MG Capsule PO ×2 (09:56→21:08)
[2023-07-31] MEDS: Insulin Glargine-YFGN 100 UNIT/ML Pen 10 UNIT SC (09:57)
[2023-07-31] MEDS: carBAMazepine 200 MG Tablet PO ×2 (09:57→21:10)
--- NOTE | 2023-07-31 10:56 | PCM.PN.HOSP ---
Subjective Subjective No issues overnight Objective Data Objective Data Vital Signs: Vital Signs Temp Pulse Resp BP Pulse Ox O2 Del Method 97.8 F 72 18 113/62 97 Room Air 07/31/23 09:52 07/31/23 09:52 07/31/23 09:52 07/31/23 09:52 07/31/23 09:52 07/31/23 09:52 Oxygen Delivery Method Room Air Weight: 216 lb 0.848 oz Body Mass Index (BMI) 34.8 Intake & Output: Intake and Output for Last 24 Hours 07/30/23 07/31/23 08/01/23 03:59 03:59 03:59 Intake Total 1000 / 1000 350 / 350 Output Total 1250 / 1250 300 / 300 Balance 1000 / 1000 -900 / -900 -300 / -300 Lab / Micro Data 07/31/23 06:49 07/31/23 06:49 Labs: Laboratory Results - last 24 hr 07/29/23 18:56: POC Glucose 72 L 07/29/23 19:08: POC Glucose 141 H 07/30/23 00:23: Vitamin B12 400 07/30/23 11:38: POC Glucose 140 H 07/30/23 17:25: POC Glucose 137 H 07/30/23 20:58: POC Glucose 170 H 07/31/23 06:26: POC Glucose 118 H 07/31/23 06:49: WBC 8.1, RBC 3.68 L, Hgb 11.2 L, Hct 36.2 L, MCV 98.4, MCH 30.4, MCHC 30.9 L, RDW Std Deviation 48.1 H, RDW Coeff of He 13.6, Plt Count 215, MPV 11.3, Immature Gran % (Auto) 0.400, Neut % (Auto) 58.3, Lymph % (Auto) 30.4, [place] % (Auto) 7.8, Eos % (Auto) 2.6, Baso % (Auto) 0.5, Absolute Neuts (auto) 4.7, Absolute Lymphs (auto) 2.47, Nucleated RBC % 0, Sodium 141, Potassium 4.0, Chloride 114 H, Carbon Dioxide 22.0, Anion Gap 5, BUN 17, Creatinine 0.85, Estim Creat Clear Calc 87.24, Est GFR (MDRD) Af Amer 89, Est GFR (MDRD) Non-Af 73, BUN/Creatinine Ratio 20.0, Glucose 118 H, Calcium 9.0, Total Bilirubin 0.30, AST 21, ALT 33, Alkaline Phosphatase 125 H, Total Protein 6.7, Albumin 3.1 L, Globulin 3.6, Albumin/Globulin Ratio 0.9 Micro: Microbiology 07/29/23 15:27 Urine, Catheterized Urine Culture - Final Presumptive E. coli 07/29/23 16:15 Mucosa - Nose SARS-CoV-2, Influenza & RSV (PCR) - Final Radiography Diagnostic Testing: Radiology Impression Echocardiogram 07/30/23 00:14 Interpretation Summary The estimated ejection fraction is 65 %. Mild concentric left ventricular hypertrophy. Structually normal valves. Compared to prior study, there is no significant change. Ordering Physician: Lj Oreilly Referring Physician: Vi Eng Performed By: Debbie Camilo, CARRIECS, RVT Brain MRI 07/30/23 16:34 IMPRESSION: 1. Several focal areas of white matter signal hyperintensity without contrast enhancement. There is a stable area along the lateral aspect LEFT temporal lobe however it new area of nonenhancing subependymal white matter abnormality in the LEFT parietal lobe. 2. Interval development of a area of white matter hyperintensity with central nodular enhancement along the subependymal region of the RIGHT frontal lobe extending into the RIGHT centrum semiovale 3. Current findings are consistent with a demyelinating processes/MS with an area of acute demyelination in the RIGHT frontal lobe. Follow-up however in approximately 3-4 months is recommended to assure that there is not underlying mass associated involving the area of enhancement. 4. 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 5. No acute territorial infarct,. Electronically Signed: Rylan Reich MD at 20:37 EST , Cervical Spine MRI 07/30/23 16:34 IMPRESSION: 1. Unchanged disc changes at C5-6 and C6-7. Broad-based disc bulge mass effect complex at both levels greatest at C5-6. No cord compression or donte canal stenosis. 2. Multilevel foraminal stenosis contributed by uncovertebral joint and facet hypertrophic changes without change. 3. No evidence of cord compression or signal abnormality involving the spinal cord and no abnormal intramedullary contrast enhancement. 4. Persistent area of mild volume loss and T2 signal hyperintensity along the floor of the 4th ventricle at the level of the medulla consistent with an area of remote demyelinating plaque. Findings are stable. Electronically Signed: Rylan Reich MD at 22:02 EST , Physical Exam Narrative General: Alert, Oriented x3, Cooperative, No apparent distress HEENT: Atraumatic, PERRLA, EOMI, Normocephalic Oral: Moist Mucosa Neck: Supple, No JVD Lungs: Diminished, Normal air movement, No rhonchi, No wheeze, No rales Cardiovascular: Regular rate, Regular Rhythm, Normal S1, Normal S2, No murmurs Abdomen: Soft, Non Tender, Non-Distended, No Hepato-splenomegaly Extremities: No edema, Capillary Refill Less than 3 Seconds Skin: KEYA site with dressing on her left so Musculoskeletal: No Tenderness to Palpation of Joints or Extremities Neurological: Numbness and tingling in her left upper extremity more than her right, no sensation below mid thigh bilateral lower extremities either to the touch or positional changes of her toes Psych/Mental Status: Normal Affect, Appropriate Assessment & Plan Assessment/Plan (1) Recurrent syncope: PLAN: Plan 1. Recurrent syncope/seizure disorder ? Unclear as to the etiology, stress test was unremarkable and echo was normal. Will cancel carotid Dopplers as this is low yield in the setting of syncope ? She does have a history of seizure disorder awaiting PEG evaluation ? Continue with her antiseizure medications 2. Left upper extremity numbness and tingling with loss of sensation bilateral thighs down to her feet ? She cannot tell positional changes of her toes on both feet ? MRI of her brain and C-spine indicate demyelinating disease possible MS, these findings were not noted on MRI brain from August so we will consult [facility] neurology for further evaluation ? MRI of thoracic spine as well as lumbar spine is pending for Wednesday ? She was transferred to [facility] in August unclear as to the results of that workup as she does not recall ? She does receive vitamin B12 injections and her last B12 was normal we will recheck 3. DM2 ? Had significant hyperglycemia and had an IO placed ? We will monitor blood sugars ? Accu-Cheks ACHS 4. HLD ? Continue with her Lipitor 5. Anxiety/depression ? Stable Continue with her home medications 6. GERD ? Stable ? Continue with PPI DVT: Lovenox Charges/Coding Visit Charges Inpatient E&M: 22652 Subs Hosp L2
[2023-07-31 12:00] LABS: Bedside Glucose 170 mg/dL (74-106)
[2023-07-31 12:48] VITALS: BP 120/66
[2023-07-31] MEDS: Midodrine HCl 5 MG Tablet 10 MG PO (12:49)
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
[2023-07-31] MEDS: hydrOXYzine PAM 25 MG Capsule PO ×2 (13:15→21:19)
[2023-07-31] MEDS: proMETHazine 25 MG Tablet PO ×2 (13:15→21:18)
--- NOTE | 2023-07-31 13:20 | CASEMGMT ---
RN SULEMAN Face to Face with patient for initial transition planning/care coordination assessment. RN CM introduced self and role at [facility]. Patient lying in bed, alert and oriented. Patient willing to participate in assessment and is able to answer all questions appropriately. Care providers, pharmacy, and demographics verified. Patient wishes to discharge home but willing to go to SNF if needed, will monitor progress with therapy. Patient states she has no further needs or concerns at this time. CM to follow for discharge planning needs that may arise. PCP: Velasquez Specialists: Bashir Noland neurologist Preferred Pharmacy: [facility] Insurance: [facility] Dual Prescription Benefit: yes Living Will/HPOA: yes, sister Enriqueta Patterson LNOK: Sisters Living Arrangements: Patient lives with sister and NATACHA in a [place] with stair lift to main level of house. Patient is independent at home. Transportation: sister DME/HHC: Patient has shower chair, raised toilet, cane, walker, rollator, grab bars, glucometer and supplies at home. Patient has had HHC in past but cannot recall agency. Patient has been to [facility] and [facility] in the past. Disposition Plan: TBD, anticipate HHC vs SNF pending progress with therapy. Emmy MALHOTRA, RN, CM
[2023-07-31] MEDS: Acetaminophen 325 MG Tablet 650 MG PO (16:19)
[2023-07-31 16:30] VITALS: BP 140/68; PULSE 72; RESP 18; TEMP 36.6; O2SAT 97
[2023-07-31 16:58] LABS: Bedside Glucose 225 mg/dL (74-106)
[2023-07-31 20:57] VITALS: BP 124/69; PULSE 71; RESP 16; TEMP 36.7; O2SAT 94
[2023-07-31] MEDS: Insulin Glargine-YFGN 100 UNIT/ML Pen 12 UNIT SC (21:06)
[2023-07-31] MEDS: Gabapentin 800 MG Tablet PO (21:07)
[2023-07-31] MEDS: Atorvastatin Calcium 80 MG Tablet PO (21:09)
[2023-07-31] MEDS: tiZANidine HCl 2 MG Tablet 4 MG PO (21:21)
[2023-07-31 21:45] LABS: Bedside Glucose 268 mg/dL (74-106)
[2023-08-01 02:34] VITALS: BP 122/66; PULSE 66; RESP 16; TEMP 36.7; O2SAT 94
[2023-08-01 06:24] VITALS: BP 126/66; BP 84/63; BP 91/60; PULSE 63
[2023-08-01] MEDS: proMETHazine 25 MG Tablet PO ×2 (06:39→20:56)
[2023-08-01 06:40] LABS: Absolute Lymphocyte Count 2.52 X10^3/uL (0.83-4.51); Absolute Neutrophil Count 3.9 X10^3/uL (2.0-7.7); Basophil# 0.04 X10^3/uL; Basophil% 0.5 % (0-1); Eosinophils% 4.1 % (0-5); Hemoglobin 11.6 g/dL (12.0-15.0); Lymphocyte # 2.52 X10^3/ul (0.83-4.51); Lymphocyte % 34.3 % (19-41); Mean Corp Hgb Conc 32.2 g/dL (32-36); Mean Corpuscular Hgb 31.4 pg (27.0-32.0); Mean Corpuscular Volume 97.6 fL (81-99); Mean Platelet Vol. 10.8 fl (6.2-12.0); Monocyte# 0.53 X10^3/uL; Monocyte% 7.2 % (0-10); NRBC Flagged by Analyzer 0 % (0-5); Neutrophil # 3.94 X10^3/uL (2.7-7.7); Neutrophil % 53.6 % (47-70); Platelet Count 205 K/mm3 (150-450); RBC Distribution Width CV 13.3 % (11.6-14.6); RBC Distribution Width SD 47.8 fl (35.1-43.9); Red Blood Count 3.69 M/mm3 (4.2-5.4); White Blood Count 7.4 K/mm3 (4.4-11.0)
[2023-08-01 07:16] LABS: Anion Gap 4 (5-15); BUN 16 mg/dL (7-18); BUN/Creat Ratio 18.6 RATIO (10-20); Calcium,Total 9.3 mg/dL (8.5-10.1); Chloride 110 mmol/L (98-107); Creatinine, Serum 0.86 mg/dL (0.55-1.02); EST Glomerular Filtration Rate 72 mL/min (>60); Est Glom Filt Rate - Afr Amer 87 mL/min (>60); Estimated Creatinine Clearance 86.23 ml/min; Glucose 171 mg/dL (74-106); Potassium 3.6 mmol/L (3.5-5.1); Sodium Level 139 mmol/L (136-145)
--- NOTE | 2023-08-01 07:20 | CT_ITS ---
STUDY: CT BRAIN WITHOUT CONTRAST REASON FOR EXAM: Female, 57 years old. Syncope with possible progressive MS RADIATION DOSAGE (If Supplied By Facility): CTDIvol = ( 44.99 ) mGy, DLP = ( 812.98 ) mGycm TECHNIQUE: Transaxial CT imaging of the brain was performed without administration of intravenous contrast material. Individualized dose optimization techniques were used for this CT. COMPARISON: MR brain from 07/30/2023, CT from 07/29/2023 FINDINGS: Normal soft tissue structures. Normal calvarium. Normal size ventricles and extra-axial spaces for the patient''s age. Normal white matter tracts of the cerebral hemispheres. Normal basal ganglia and thalami. Normal brainstem. Normal cerebellum. There is no intracranial hemorrhage. There are no findings of an acute ischemic infarction. Normal visualized paranasal sinuses. CT/Brain/Head without Contrast IMPRESSION: Age consistent changes, no acute findings. No interval change since 07/29/2023 CT is not sensitive for evaluation of MS. Please refer to the MR brain and C-spine from yesterday for further details of possible MS Electronically Signed: Pako Read MD at 13:13 EST ,
[2023-08-01 08:54] LABS: Hemoglobin A1c 7.4 % (3.8-5.6)
[2023-08-01 09:03] VITALS: BP 122/69; PULSE 62; RESP 18; TEMP 36.6; O2SAT 99
[2023-08-01] MEDS: Docusate Sodium 100 MG Capsule PO ×2 (09:06→21:00)
[2023-08-01] MEDS: Enoxaparin 40 MG/0.4 ML Syringe SC (09:06)
[2023-08-01] MEDS: Gabapentin 100 MG Capsule 200 MG PO (09:06)
[2023-08-01] MEDS: Midodrine HCl 5 MG Tablet 10 MG PO ×3 (09:07→16:18)
[2023-08-01] MEDS: DULoxetine Hcl 60 MG Capsule PO ×2 (09:08→21:01)
[2023-08-01] MEDS: carBAMazepine 200 MG Tablet PO ×2 (09:08→21:03)
[2023-08-01] MEDS: Pantoprazole Sodium 40 MG Tablet PO (09:08)
[2023-08-01] MEDS: Potassium Chloride Oral Tablet 20 MEQ PO (09:08)
[2023-08-01] MEDS: Topiramate 100 MG Tablet 200 MG PO ×2 (09:09→21:01)
[2023-08-01] MEDS: Insulin Glargine-YFGN 100 UNIT/ML Pen 10 UNIT SC (09:09)
[2023-08-01] MEDS: Acetaminophen/Butalbital/Caffe 1 Tablet PO ×2 (09:17→21:10)
--- NOTE | 2023-08-01 10:23 | PN.HOSP_ITS ---
Subjective Subjective No new issues overnight Objective Data Objective Data Vital Signs: Vital Signs Temp Pulse Resp BP Pulse Ox O2 Del Method 97.8 F 62 18 122/69 H 99 Room Air 08/01/23 09:03 08/01/23 09:03 08/01/23 09:03 08/01/23 09:03 08/01/23 09:03 08/01/23 09:03 Oxygen Delivery Method Room Air Weight: 216 lb 0.848 oz Body Mass Index (BMI) 34.8 Intake & Output: Intake and Output for Last 24 Hours 07/31/23 08/01/23 08/02/23 03:59 03:59 03:59 Intake Total 350 / 350 880 / 880 Output Total 1250 / 1250 1850 / 1850 900 / 900 Balance -900 / -900 -970 / -970 -900 / -900 Lab / Micro Data 08/01/23 06:03 08/01/23 06:03 Labs: Laboratory Results - last 24 hr 07/31/23 11:43: POC Glucose 170 H 07/31/23 16:38: POC Glucose 225 H 07/31/23 21:04: POC Glucose 268 H 08/01/23 06:03: WBC 7.4, RBC 3.69 L, Hgb 11.6 L, Hct 36.0 L, MCV 97.6, MCH 31.4, MCHC 32.2, RDW Std Deviation 47.8 H, RDW Coeff of He 13.3, Plt Count 205, MPV 10.8, Immature Gran % (Auto) 0.300, Neut % (Auto) 53.6, Lymph % (Auto) 34.3, [place] % (Auto) 7.2, Eos % (Auto) 4.1, Baso % (Auto) 0.5, Absolute Neuts (auto) 3.9, Absolute Lymphs (auto) 2.52, Nucleated RBC % 0, Sodium 139, Potassium 3.6, Chloride 110 H, Carbon Dioxide 25.0, Anion Gap 4 L, BUN 16, Creatinine 0.86, Estim Creat Clear Calc 86.23, Est GFR (MDRD) Af Amer 87, Est GFR (MDRD) Non-Af 72, BUN/Creatinine Ratio 18.6, Glucose 171 H, Hemoglobin A1c 7.4 H, Calcium 9.3 Micro: Microbiology 07/29/23 15:27 Urine, Catheterized Urine Culture - Preliminary Presumptive E. coli 07/29/23 16:15 Mucosa - Nose SARS-CoV-2, Influenza & RSV (PCR) - Final Physical Exam Narrative General: Alert, Oriented x3, Cooperative, No apparent distress HEENT: Atraumatic, PERRLA, EOMI, Normocephalic Oral: Moist Mucosa Neck: Supple, No JVD Lungs: Diminished, Normal air movement, No rhonchi, No wheeze, No rales Cardiovascular: Regular rate, Regular Rhythm, Normal S1, Normal S2, No murmurs Abdomen: Soft, Non Tender, Non-Distended, No Hepato-splenomegaly Extremities: No edema, Capillary Refill Less than 3 Seconds Skin: IO site with dressing on her left so Musculoskeletal: No Tenderness to Palpation of Joints or Extremities Neurological: Numbness and tingling in her left upper extremity more than her right, no sensation below mid thigh bilateral lower extremities either to the touch or positional changes of her toes Psych/Mental Status: Normal Affect, Appropriate Assessment & Plan Assessment/Plan (1) Recurrent syncope: PLAN: Plan 1. Recurrent syncope/seizure disorder ? Unclear as to the etiology, stress test was unremarkable and echo was normal. Will cancel carotid Dopplers as this is low yield in the setting of syncope ? She does have a history of seizure disorder awaiting PEG evaluation ? Continue with her antiseizure medications ? Orthostatic vital signs were positive today, will continue with IV fluids as well as her midodrine 2. Left upper extremity numbness and tingling with loss of sensation bilateral thighs down to her feet ? She cannot tell positional changes of her toes on both feet ? MRI of her brain and C-spine indicate demyelinating disease possible MS, these findings were not noted on MRI brain from August so we will consult [facility] neurology for further evaluation ? MRI of thoracic spine as well as lumbar spine is pending for Wednesday ? She was transferred to [facility] in August the results are unremarkable as she was not appearing to have active disease at that time, her cervical and thoracic spine lesions have been stable and likely chronic plaque but she did not have any new disease which appears with change so hopefully workup at this time will give us a better diagnosis ? She does receive vitamin B12 injections and her B12 this admission was 400 ? Could not do a CTA of the head and neck today secondary to multiple IVs infiltrating and could not get enough contrast injection, will plan for PICC line and hopefully repeat CTA ? Will need an LP tomorrow by radiology, studies have been ordered for further evaluation of these hyperintensity lesions in her brain consistent with MS versus 3. DM2 ? Had significant hyperglycemia and had an IO placed ? We will monitor blood sugars ? Accu-Cheks ACHS 4. HLD ? Continue with her Lipitor 5. Anxiety/depression ? Stable ?Continue with her home medications 6. GERD ? Stable ? Continue with PPI DVT: Lovenox Charges/Coding Visit Charges Inpatient E&M: 73158 Subs Hosp L2
[2023-08-01 11:40] VITALS: BP 120/59
[2023-08-01] MEDS: Insulin Lispro 100 UNIT/ML INSULN.PEN SC ×3 (11:41→20:58)
[2023-08-01 11:53] LABS: Bedside Glucose 254 mg/dL (74-106)
[2023-08-01] MEDS: hydrOXYzine PAM 25 MG Capsule PO ×2 (12:25→20:56)
[2023-08-01 15:00] VITALS: BP 134/68; PULSE 66; RESP 18; TEMP 37; O2SAT 97
[2023-08-01] MEDS: Acetaminophen 325 MG Tablet 650 MG PO (16:16)
[2023-08-01] MEDS: oxyCODONE 5 MG Tablet PO (16:16)
[2023-08-01] MEDS: 0.9% Normal Saline (1000mL) 1,000 ML 100 ML IV (16:25)
[2023-08-01 17:08] LABS: Bedside Glucose 228 mg/dL (74-106)
[2023-08-01 20:49] VITALS: BP 133/54; PULSE 62; RESP 16; TEMP 36.7; O2SAT 97
[2023-08-01] MEDS: Gabapentin 800 MG Tablet PO (20:56)
[2023-08-01] MEDS: Insulin Glargine-YFGN 100 UNIT/ML Pen 15 UNIT SC (20:59)
[2023-08-01] MEDS: Atorvastatin Calcium 80 MG Tablet PO (21:02)
[2023-08-01 21:32] LABS: Bedside Glucose 228 mg/dL (74-106)
--- NOTE | 2023-08-02 | CYSPIN_PTH ---
PATHOLOGY RESULTS PATIENT: FAM VINSON LOC: [facility] U#:[id number] AGE/SX: 57/F ROOM: [facility] RE07/31/[address]: Dr. Forrest Pascal MD : 1965 BED: 1 DIS: 08/07/2023 SPEC #: [id number] RECD: 08/03/23 08:13 STATUS: J CARLOS REQ #: [id number] PANCHO: 08/02/23 00:[address]: Forrest Pascal DEPT: CYTOLOGY RECD BY: Reyes Edwards ENTERED: 08/03/23 08:15 SP TYPE: CYSPIN FL OTHR DR: MD Dr. Luis Fernando Strauss MD Dr. Allison Jordan, DO Dr. Alicia Zha, MD Dr. David de Lorenzo, DO Dr. Deepak Gulati, MD Dr. Hera Kamdar, MD Dr. Jan Bittar, MD Dr. James Burke, MD Dr. Kimberly Sheets, MD Dr. Rocio Tellez Dr., MD Dr. Mohamed Ridha, MD Dr. Mhd Ezzat Zaghlouleh, MD Dr. Nicholas F Kotsonis, MD Dr. Peter Robinson, MD Dr. Sushil Lakhani, MD Dr. Vivien Lee, MD Tissues: Cerebrospinal Fluid Procedures: Pap Stain (control) Special Stain Group II Cytospin Fluid HEADER OPERATION: Not noted PRE-OP DIAGNOSIS: Syncope, hypoglycemia TISSUE SUBMITTED: Cerebrospinal fluid for cytology DIAGNOSIS CYTOLOGY Cerebrospinal fluid for cytology (cytospin): Negative for malignant cells. JEFF:[email or web address] 08/03/2023 CYTOLOGY STUDY Slides are reviewed. CYTOLOGY GROSS Received is 2.5 ml of clear fluid labeled with the patient's name and and designated per the requisition as CSF. Submitted for cytology preparation. / bethanie 08/02/2023 TC:5 CPT: 50897
[2023-08-02] MEDS: tiZANidine HCl 2 MG Tablet 4 MG PO ×2 (01:47→21:07)
[2023-08-02] MEDS: 0.9% Normal Saline (1000mL) 1,000 ML 100 ML IV ×2 (01:49→16:00)
[2023-08-02 02:05] VITALS: BP 148/78; PULSE 62; RESP 16; TEMP 36.7; O2SAT 97
[2023-08-02 06:29] LABS: Absolute Lymphocyte Count 2.77 X10^3/uL (0.83-4.51); Absolute Neutrophil Count 3.7 X10^3/uL (2.0-7.7); Basophil# 0.05 X10^3/uL; Basophil% 0.7 % (0-1); Eosinophil# 0.29 X10^3/uL; Eosinophils% 3.9 % (0-5); Hematocrit 32.9 % (37-47); Hemoglobin 10.5 g/dL (12.0-15.0); Lymphocyte # 2.77 X10^3/ul (0.83-4.51); Lymphocyte % 37.6 % (19-41); Mean Corp Hgb Conc 31.9 g/dL (32-36); Mean Corpuscular Volume 97.1 fL (81-99); Mean Platelet Vol. 10.7 fl (6.2-12.0); Monocyte# 0.55 X10^3/uL; Monocyte% 7.5 % (0-10); NRBC Flagged by Analyzer 0 % (0-5); Neutrophil # 3.67 X10^3/uL (2.7-7.7); Neutrophil % 49.9 % (47-70); Platelet Count 211 K/mm3 (150-450); RBC Distribution Width CV 13.3 % (11.6-14.6); RBC Distribution Width SD 46.6 fl (35.1-43.9); Red Blood Count 3.39 M/mm3 (4.2-5.4); White Blood Count 7.4 K/mm3 (4.4-11.0)
[2023-08-02] MEDS: Insulin Lispro 100 UNIT/ML INSULN.PEN SC ×2 (06:36→21:16)
[2023-08-02 06:55] LABS: Bedside Glucose 171 mg/dL (74-106)
[2023-08-02 06:56] LABS: Anion Gap 6 (5-15); BUN 17 mg/dL (7-18); BUN/Creat Ratio 20.6 RATIO (10-20); Calcium,Total 8.9 mg/dL (8.5-10.1); Chloride 113 mmol/L (98-107); Creatinine, Serum 0.82 mg/dL (0.55-1.02); EST Glomerular Filtration Rate 76 mL/min (>60); Est Glom Filt Rate - Afr Amer 92 mL/min (>60); Estimated Creatinine Clearance 90.44 ml/min; Glucose 178 mg/dL (74-106); Potassium 3.9 mmol/L (3.5-5.1); Sodium Level 141 mmol/L (136-145)
[2023-08-02] MEDS: LORazepam 1 MG Tablet PO (08:50)
[2023-08-02] MEDS: Topiramate 100 MG Tablet 200 MG PO ×2 (08:52→21:07)
[2023-08-02] MEDS: carBAMazepine 200 MG Tablet PO ×2 (08:52→21:05)
[2023-08-02] MEDS: Ergocalciferol 1.25 MG (50, 000 UNIT) Capsule PO (08:53)
[2023-08-02] MEDS: Pantoprazole Sodium 40 MG Tablet PO (08:53)
[2023-08-02] MEDS: Midodrine HCl 5 MG Tablet 10 MG PO ×3 (08:53→17:47)
[2023-08-02] MEDS: Potassium Chloride Oral Tablet 20 MEQ PO (08:54)
[2023-08-02] MEDS: Enoxaparin 40 MG/0.4 ML Syringe SC (08:59)
[2023-08-02] MEDS: Gabapentin 100 MG Capsule 200 MG PO (08:59)
[2023-08-02] MEDS: Acetaminophen/Butalbital/Caffe 1 Tablet PO (08:59)
--- NOTE | 2023-08-02 09:00 | MRI_ITS ---
HISTORY: WORSENING NEUROPATHY WITH WEAKNESS. TECHNIQUE: Multiplanar and multisequence MR images of the lumbar spine were obtained before and after the intravenous administration of 20 mL Clariscan. 201 images. COMPARISON: XR 11/07/2022. FINDINGS: VERTEBRAE: Vertebral body heights maintained. Mild degenerative endplate changes with small Schmorl''s nodes at multiple levels. No other significant bone marrow signal abnormality or abnormal enhancing lesion. ALIGNMENT: No anterior or posterior subluxation. SPINAL CANAL: Normal morphology and position of the conus medullaris at L1 without enhancing lesion. No epidural collection or enhancing intradural extramedullary mass. INTERVERTEBRAL DISCS: T12-L1: No significant signal abnormality, posterior disc protrusion, central canal stenosis, or foraminal narrowing based on the sagittal images. L1-2: Mild disc bulge and facet arthropathy resulting in minimal narrowing of the thecal sac. No significant foraminal narrowing. L2-3: Very mild disc bulge and facet arthropathy resulting in minimal narrowing of the thecal sac and bilateral foramina. L3-4, L4-5: Very mild disc bulges and facet arthropathy resulting in minimal narrowing of the thecal sac and mild bilateral foraminal narrowing. L5-S1: Very mild disc bulge and facet arthropathy without significant central canal stenosis or foraminal narrowing. SOFT TISSUES: No paraspinal fluid collection. Mild posterior subcutaneous edema. MRI/Spine Lumbar W/WO Contrast IMPRESSION: Very mild degenerative disc disease without significant lumbar spinal canal stenosis. Mild bilateral foraminal narrowing as above. Electronically Signed: Zayra Pena MD at 12:13 EST ,
[2023-08-02] MEDS: Insulin Glargine-YFGN 100 UNIT/ML Pen 15 UNIT SC ×2 (09:04→21:17)
--- NOTE | 2023-08-02 09:32 | PCM.PN.HOSP ---
Reason for Visit Reason for Visit: Diagnoses Syncope and collapse (07/31/23) Objective Data Objective Data Vital Signs: Vital Signs Temp Pulse Resp BP Pulse Ox O2 Del Method 98.1 F 62 16 148/78 H 97 Room Air 08/02/23 02:05 08/02/23 02:05 08/02/23 02:05 08/02/23 02:05 08/02/23 02:05 08/02/23 02:05 Oxygen Delivery Method Room Air Weight: 216 lb 0.848 oz Body Mass Index (BMI) 34.8 Intake & Output: Intake and Output for Last 24 Hours 07/31/23 08/01/23 08/02/23 23:59 23:59 23:59 Intake Total 880 / 880 740 / 740 940 / 940 Output Total 2099 / 2099 1999 / 1999 Balance -1220 / -1220 -1260 / -1260 940 / 940 Lab / Micro Data 08/02/23 06:05 08/02/23 06:05 Labs: Laboratory Results - last 24 hr 08/01/23 11:36: POC Glucose 254 H 08/01/23 16:23: POC Glucose 228 H 08/01/23 20:57: POC Glucose 228 H 08/02/23 06:05: WBC 7.4, RBC 3.39 L, Hgb 10.5 L, Hct 32.9 L, MCV 97.1, MCH 31.0, MCHC 31.9 L, RDW Std Deviation 46.6 H, RDW Coeff of He 13.3, Plt Count 211, MPV 10.7, Immature Gran % (Auto) 0.400, Neut % (Auto) 49.9, Lymph % (Auto) 37.6, [place] % (Auto) 7.5, Eos % (Auto) 3.9, Baso % (Auto) 0.7, Absolute Neuts (auto) 3.7, Absolute Lymphs (auto) 2.77, Nucleated RBC % 0, Sodium 141, Potassium 3.9, Chloride 113 H, Carbon Dioxide 22.0, Anion Gap 6, BUN 17, Creatinine 0.82, Estim Creat Clear Calc 90.44, Est GFR (MDRD) Af Amer 92, Est GFR (MDRD) Non-Af 76, BUN/Creatinine Ratio 20.6 H, Glucose 178 H, Calcium 8.9 08/02/23 06:33: POC Glucose 171 H Micro: Microbiology 07/29/23 15:27 Urine, Catheterized Urine Culture - Final Presumptive E. coli 07/29/23 16:15 Mucosa - Nose SARS-CoV-2, Influenza & RSV (PCR) - Final Radiography Diagnostic Testing: Radiology Impression Brain CT 08/01/23 07:20 IMPRESSION: Age consistent changes, no acute findings. No interval change since 07/29/2023 CT is not sensitive for evaluation of MS. Please refer to the MR brain and C-spine from yesterday for further details of possible MS Electronically Signed: Pako Read MD at 13:13 EST , Physical Exam Narrative Seen and examined. Patient complaining of numbness and tingling on her left upper extremity more than the right. No headache. No fever. Physical exam General: Alert, Oriented x3, Cooperative HEENT: Atraumatic, PERRLA, EOMI, Normocephalic Oral: Oral mucosa moist. No Gingival or Mucosal Lesions/ Ulcerations Neck: Supple, No JVD, Negative Carotid Bruits Lungs: Air entry diminished in bilateral lung bases. No crepitation/rhonchi Cardiovascular: Regular rate, Regular Rhythm, Normal S1, Normal S2, No murmurs Abdomen: Bowel Sounds Present, Soft, Non Tender, Non-Distended : No dysuria. No renal angle tenderness. No suprapubic tenderness. Extremities: No edema, Capillary Refill Less than 3 Seconds Skin: No rashes, No breakdown Musculoskeletal: No Tenderness to Palpation of Joints or Extremities Neurological: Cranial nerves II-XII grossly intact, DTR 2+/4. No touch or pressure sensation below mid thigh bilateral lower extremities. No point stenosis of great toes. Psych/Mental Status: Flat affect. Assessment & Plan Assessment/Plan (1) Recurrent syncope: PLAN: Plan 1. Recurrent syncope/seizure disorder ? Unclear as to the etiology, stress test was unremarkable and echo was normal. Will cancel carotid Dopplers as this is low yield in the setting of syncope ? She does have a history of seizure disorder. EEG shows rare generalized spike and wave discharges. Diffuse slow activity mild in degree. ? Continue with her antiseizure medications ? Orthostatic vital signs were Positive on 08/01. Currently blood pressure normal 120/59/, 138/81. Patient does not complain of dizziness on walking on supervision of PT. 2. Left upper extremity numbness and tingling with loss of sensation bilateral thighs down to her feet ? She cannot tell positional changes of her toes on both feet ? MRI of her brain and C-spine indicate demyelinating disease possible MS, these findings were not noted on MRI brain from August so we will consult [facility] neurology for further evaluation ? MRI of thoracic spine as well as lumbar spine is pending for Wednesday ? She was transferred to [facility] in August the results are unremarkable as she was not appearing to have active disease at that time, her cervical and thoracic spine lesions have been stable and likely chronic plaque but she did not have any new disease which appears with change so hopefully workup at this time will give us a better diagnosis ? She does receive vitamin B12 injections and her B12 this admission was 400 ? Could not do a CTA of the head and neck today secondary to multiple IVs infiltrating and could not get enough contrast injection, will plan for PICC line and hopefully repeat CTA Patient had LP and thoracic and lumbar MRI spine today. Patient already had his cervical and brain MRI before. Reports mentioned below. Thoracic spine MRI does not show signal abnormality or enhancing lesion. [facility] neurologist to follow-up tomorrow. CSF tests are sent. Serum test are ordered. 3. DM2 ? Had significant hyperglycemia and had an IO placed ? We will monitor blood sugars ? Accu-Cheks ACHS 4. HLD ? Continue with her Lipitor 5. Anxiety/depression ? Stable ?Continue with her home medications 6. GERD ? Stable ? Continue with PPI DVT: Lovenox Clinical Impression(s) from Imaging Studies Brain CT 07/29/23 15:37 IMPRESSION: Chronic involutional changes of the brain. No change or acute abnormality. Electronically Signed: Arias Pablo MD at 18:13 EST , Cervical Spine CT 07/29/23 15:37 IMPRESSION: There is no definite acute fracture/dislocation. Degenerative changes. Electronically Signed: Arias Pablo MD at 18:16 EST , Echocardiogram 07/30/23 00:14 Interpretation Summary The estimated ejection fraction is 65 %. Mild concentric left ventricular hypertrophy. Structually normal valves. Compared to prior study, there is no significant change. Ordering Physician: Lj Oreilly Referring Physician: Vi Eng Performed By: Debbie Camilo, CHAPIS, RVT Brain MRI 07/30/23 16:34 IMPRESSION: 1. Several focal areas of white matter signal hyperintensity without contrast enhancement. There is a stable area along the lateral aspect LEFT temporal lobe however it new area of nonenhancing subependymal white matter abnormality in the LEFT parietal lobe. 2. Interval development of a area of white matter hyperintensity with central nodular enhancement along the subependymal region of the RIGHT frontal lobe extending into the RIGHT centrum semiovale 3. Current findings are consistent with a demyelinating processes/MS with an area of acute demyelination in the RIGHT frontal lobe. Follow-up however in approximately 3-4 months is recommended to assure that there is not underlying mass associated involving the area of enhancement. 4. 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 5. No acute territorial infarct,. Cervical Spine MRI 07/30/23 16:34 IMPRESSION: 1. Unchanged disc changes at C5-6 and C6-7. Broad-based disc bulge mass effect complex at both levels greatest at C5-6. No cord compression or donte canal stenosis. 2. Multilevel foraminal stenosis contributed by uncovertebral joint and facet hypertrophic changes without change. 3. No evidence of cord compression or signal abnormality involving the spinal cord and no abnormal intramedullary contrast enhancement. 4. Persistent area of mild volume loss and T2 signal hyperintensity along the floor of the 4th ventricle at the level of the medulla consistent with an area of remote demyelinating plaque. Findings are stable. Brain CT 08/01/23 07:20 IMPRESSION: Age consistent changes, no acute findings. No interval change since 07/29/2023 CT is not sensitive for evaluation of MS. Please refer to the MR brain and C-spine from yesterday for further details of possible MS Electronically Signed: aPko Read MD at 13:13 EST , Lumbar Spine MRI 08/02/23 09:00 IMPRESSION: Very mild degenerative disc disease without significant lumbar spinal canal stenosis. Mild bilateral foraminal narrowing as above. Lumbar Puncture Fluoroscopy 08/02/23 12:45 IMPRESSION: Successful fluoroscopic-guided lumbar puncture. Thoracic Spine MRI 08/02/23 16:34 IMPRESSION: Very mild degenerative disc disease of the lower thoracic spine without significant spinal canal stenosis. No evidence for significant signal abnormality or enhancing lesion in the thoracic spinal cord. Charges/Coding Visit Charges Inpatient E&M: 11086 Subs Hosp L2
[2023-08-02] MEDS: DULoxetine Hcl 60 MG Capsule PO ×2 (11:28→21:04)
[2023-08-02] MEDS: AMOXICILLIN 500 MG CAPSULE PO ×3 (11:28→21:05)
[2023-08-02] MEDS: Docusate Sodium 100 MG Capsule PO ×2 (11:28→21:13)
[2023-08-02 11:39] VITALS: BP 114/63; PULSE 60; RESP 16; TEMP 36.8; O2SAT 97
[2023-08-02] MEDS: Acetaminophen 325 MG Tablet 650 MG PO ×2 (11:46→17:47)
[2023-08-02] MEDS: oxyCODONE 5 MG Tablet PO ×2 (11:46→17:46)
[2023-08-02 12:27] LABS: Bedside Glucose 220 mg/dL (74-106)
[2023-08-02 12:32] VITALS: BP 120/59; PULSE 59; RESP 16; TEMP 35.9; O2SAT 98; BMI 33.9
--- NOTE | 2023-08-02 12:45 | RAD_ITS ---
PROCEDURE: Fluoroscopic guided Lumbar Puncture. DATE: August 02, 2023. CLINICAL INDICATION: Multiple sclerosis. PHYSICIAN: Luis Enrique Irwin M.D. MEDICATIONS: 1% lidocaine administered subcutaneously for local anesthesia. ACCESS SITE: Lower posterior back. NEEDLE: 22-gauge spinal needle. SPECIMEN: Approximately 13 mL clear]CSF fluid. FLUOROSCOPY TIME (if supplied): (6:40) minutes/seconds. 244.33 mGy COMPLICATIONS: None immediate. The risks, benefits, and alternatives to the procedure were explained to the patient. The specific risks of bleeding, infection, and neurovascular injury were detailed and accepted. Witnessed informed consent was obtained. The patient was placed on the fluoroscopic table in the prone position. The level for needle entry was determined and marked. The overlying skin was cleaned and prepped in the usual sterile fashion. 2% lidocaine was administered subcutaneously for local anesthesia. Under fluoroscopic guidance a 22-gauge spinal needle was advanced. The thecal sac was entered at the L3- L4 vertebral level. The inner stylet was removed. There was spontaneous flow of clear CSF fluid. The patient was placed in a reversed Trendelenburg position. Approximately 13 mL of cerebrospinal fluid was collected using gravity. The specimen was collected and submitted to the laboratory for further evaluation. The needle was withdrawn,. Hemostasis was achieved and a sterile dressing placed. The patient tolerated the procedure well without any immediate complications. The patient was placed supine with head elevated and returned to the floor in stable condition. RAD/Dx Lumbar Puncture w/IMG Guide IMPRESSION: Successful fluoroscopic-guided lumbar puncture. Electronically Signed: Luis Enrique Irwin MD at 14:09 EST ,
[2023-08-02] MEDS: Lidocaine 2% (5ml sdv) 5 ML VIAL.MPF (13:08)
[2023-08-02] MEDS: Lidocaine 2% (5ml sdv) 5 ML VIAL.MPF INFILT (13:08)
[2023-08-02 13:48] LABS: Cytology, Body Fluid / CSF SEE PATHOLOGY REPORT
[2023-08-02 13:59] VITALS: BP 138/81; PULSE 61; RESP 14; TEMP 36.8; O2SAT 97
[2023-08-02 14:09] LABS: Appearance CSF (character) CLEAR (Clear); CSF Color COLORLESS (Colorless); RBC Count, Spinal Fluid 0 /mm-3 (None seen); Tested Tube # 3
[2023-08-02 14:57] LABS: Glucose, Body Fluid 115 mg/dL (40-70); Protein, Body Fluid < 0.1 g/dL (Not Establ.)
--- NOTE | 2023-08-02 16:34 | MRI_ITS ---
HISTORY: worsening neuropathy with weakness. TECHNIQUE: Multiplanar and multisequence MR images of the thoracic spine were obtained before and after the intravenous restriction of 20 mL Clariscan. 221 images. COMPARISON: None. FINDINGS: VERTEBRAE: Vertebral body heights maintained. Mild degenerative endplate changes. No other significant bone marrow signal abnormality or enhancement. ALIGNMENT: No anterior or posterior subluxation. SPINAL CANAL: Thoracic spinal cord within normal limits in signal and morphology without enhancing lesion. No epidural collection or enhancing intradural extramedullary mass. INTERVERTEBRAL DISCS: Mild central disc protrusion with facet arthropathy resulting in minimal narrowing of the thecal sac and no significant foraminal narrowing at T9-10. Mild posterior disc bulge osteophyte complex and facet arthropathy at T11-12 without significant central canal stenosis and with very mild left foraminal narrowing. No significant enhancement, posterior disc protrusion, central canal stenosis, or foraminal narrowing at the other levels. SOFT TISSUES: No paraspinal fluid collection. Mild lower posterior subcutaneous edema. MRI/Spine Thoracic W/WO Contrast IMPRESSION: Very mild degenerative disc disease of the lower thoracic spine without significant spinal canal stenosis. No evidence for significant signal abnormality or enhancing lesion in the thoracic spinal cord. Electronically Signed: Zayra Pena MD at 11:30 EST ,
[2023-08-02 17:43] LABS: Bedside Glucose 204 mg/dL (74-106)
[2023-08-02 21:00] VITALS: BP 124/76; PULSE 63; RESP 16; TEMP 36.6; O2SAT 96
[2023-08-02] MEDS: Gabapentin 800 MG Tablet PO (21:04)
[2023-08-02] MEDS: Atorvastatin Calcium 80 MG Tablet PO (21:05)
[2023-08-02] MEDS: proMETHazine 25 MG Tablet PO (21:07)
[2023-08-02] MEDS: hydrOXYzine PAM 25 MG Capsule PO (21:07)
[2023-08-02 21:47] LABS: Bedside Glucose 248 mg/dL (74-106)
[2023-08-03] MEDS: 0.9% Normal Saline (1000mL) 1,000 ML 100 ML IV ×3 (02:36→23:41)
[2023-08-03] MEDS: Acetaminophen 325 MG Tablet 650 MG PO ×3 (02:40→17:24)
[2023-08-03] MEDS: oxyCODONE 5 MG Tablet PO ×3 (02:40→17:24)
[2023-08-03 03:29] VITALS: BP 142/73; PULSE 66; RESP 16; TEMP 36.5; O2SAT 96
[2023-08-03] MEDS: AMOXICILLIN 500 MG CAPSULE PO ×3 (05:38→21:31)
[2023-08-03] MEDS: Insulin Lispro 100 UNIT/ML INSULN.PEN SC ×4 (06:30→21:39)
[2023-08-03 07:00] LABS: Bedside Glucose 217 mg/dL (74-106)
[2023-08-03 08:41] VITALS: BP 138/63; PULSE 62; RESP 14; TEMP 36.6; O2SAT 99
[2023-08-03] MEDS: carBAMazepine 200 MG Tablet PO ×2 (08:46→21:32)
[2023-08-03] MEDS: Topiramate 100 MG Tablet 200 MG PO ×2 (08:46→21:32)
[2023-08-03] MEDS: Pantoprazole Sodium 40 MG Tablet PO (08:47)
[2023-08-03] MEDS: Enoxaparin 40 MG/0.4 ML Syringe SC (08:47)
[2023-08-03] MEDS: Midodrine HCl 5 MG Tablet 10 MG PO ×3 (08:47→17:19)
[2023-08-03] MEDS: Potassium Chloride Oral Tablet 20 MEQ PO (08:47)
[2023-08-03] MEDS: DULoxetine Hcl 60 MG Capsule PO ×2 (08:47→21:31)
[2023-08-03] MEDS: hydrOXYzine PAM 25 MG Capsule PO (08:57)
[2023-08-03] MEDS: Docusate Sodium 100 MG Capsule PO ×2 (08:57→21:32)
[2023-08-03] MEDS: Gabapentin 100 MG Capsule 200 MG PO (08:57)
[2023-08-03] MEDS: Insulin Glargine-YFGN 100 UNIT/ML Pen 15 UNIT SC (08:58)
--- NOTE | 2023-08-03 09:58 | NEURO.PNOTE ---
Assessment and Plan: Neuro Assessment/Plan FAM VINSON is a 57 F with a past medical history of diabetes, HTN, possible MS, being evaluated by Teleneurology for recurrent syncope and new concern for MS lesion. On history, these falls appears largely orthostatic related but unclear why this worsening. Syncope: - CTA head/neck cananot be perfomed - TTEwnl - EEG unremarkable -Cardiac stress test wnl -Increase midodrine to 10 mg TID Possible MS: She has been worked up in the past multiple times for possible MS and mimickers but workup always comes back negative. Has been empirically treated with steroids in the past with resolution of symptoms in the past. 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 MRI T/L spine w/w/o contrast with no acute findings however MRI brain showed new enchancing lesions concerning for MS plaque /demyelinating disease. Repeat CSF analysis wnl however oligoclonal bands, myelin basic protein, JCV serology, anti Mog, anti NMO, IgG index pending. In the setting of ongoing difficulty walking, bilateral lower extremity weakness, slurred speech,urinary retention and left sided numbness,would recommend 1gm IV solumedrol for 5 days . Recommend checking post void residuals on patient . She needs to follow up with Neurologist in 4-6 weeks to follow up on above mentioned CSF labs, History of epilepsy: Continue with ASM as same dose EEG showed generalized 1 Hz spike and wave discharge however no seizures. Transfer to [facility] for the following reasons: none I personally attended this patient and spent a total time of 40 minutes evaluating this patient including clinical assessment, review of chart, medical history imaging, and determining appropriate treatment and workup. Rocio Sarmiento MD [facility] Neurology Department Subject: Neurology Subjective FAM VINSON is a 57 year old F, who we are seeing in consultation today for advice on the management of dizziness and related patient care. EEG Results Procedure Details EEG Procedure Details: FAM VINSON is a 57 year old F with a past medical history of , who presents for evaluation of Electroencephalogram on DATE at TIME Objective Data Objective Data Vital Signs: Vital Signs Temp Pulse Resp BP Pulse Ox O2 Del Method 98 F 62 14 138/63 H 99 Room Air 08/03/23 08:41 08/03/23 08:41 08/03/23 08:41 08/03/23 08:41 08/03/23 08:41 08/03/23 08:41 Oxygen Delivery Method Room Air Weight: 95.254 kg Body Mass Index (BMI) 33.9 Intake & Output: Intake and Output for Last 24 Hours 08/01/23 08/02/23 08/03/23 23:59 23:59 23:59 Intake Total 740 / 740 3231.67 / 3231.67 1220 / 1220 Output Total 1999 Balance -1260 / -1260 3231.67 / 3231.67 1220 / 1220 Lab / Micro Data 08/02/23 06:05 08/02/23 06:05 Labs: Laboratory Results - last 24 hr 08/02/23 11:49: POC Glucose 220 H 08/02/23 13:30: Fluid Source Cancelled, Fluid Color Cancelled, Fluid Appearance Cancelled, Fluid WBC Cancelled, Fluid RBC Cancelled, Fluid Tot Cell Count Cancelled, Fld Polynuclear WBCs # Cancelled, Fld Polynuclear WBCs % Cancelled, Fluid Mononuclear WBCs Cancelled, Fld Mononuclear WBCs % Cancelled, Fluid Neutrophils Cancelled, Fluid Lymphocytes Cancelled, Fluid Monocytes Cancelled, Fluid Plasma Cells Cancelled, Fluid Macrophages Cancelled, Fld Mesothelial Cells Cancelled, Fluid Other Cells Cancelled, Fl Pathologist Comment Cancelled, Fluid Glucose 115 H, Fluid Total Protein < 0.1, Fluid Comment 2 Cancelled, CSF Appearance CLEAR, CSF Color COLORLESS, CSF WBC 0.00, CSF RBC 0, CSF Cell Count Tube # 3, CSF Total Cell Counted TNP, CSF Comment May follow 08/02/23 17:25: POC Glucose 204 H 08/02/23 21:16: POC Glucose 248 H 08/03/23 06:27: POC Glucose 217 H Micro: Microbiology 07/29/23 15:27 Urine, Catheterized Urine Culture - Final Presumptive E. coli 07/29/23 16:15 Mucosa - Nose SARS-CoV-2, Influenza & RSV (PCR) - Final Radiography Diagnostic Testing: Radiology Impression Lumbar Spine MRI 08/02/23 09:00 IMPRESSION: Very mild degenerative disc disease without significant lumbar spinal canal stenosis. Mild bilateral foraminal narrowing as above. Electronically Signed: Zayra Pena MD at 12:13 EST , Lumbar Puncture Fluoroscopy 08/02/23 12:45 IMPRESSION: Successful fluoroscopic-guided lumbar puncture. Electronically Signed: Luis Enrique Irwin MD at 14:09 EST , Thoracic Spine MRI 08/02/23 16:34 IMPRESSION: Very mild degenerative disc disease of the lower thoracic spine without significant spinal canal stenosis. No evidence for significant signal abnormality or enhancing lesion in the thoracic spinal cord. Electronically Signed: Zayra Pena MD at 11:30 EST , Physical Exam Neuro Neuro Narrative: -? General: Laying comfortably in bed; in no acute distress. -? HENT: Normal oropharynx and mucosa. Normal external appearance of ears and nose. Exophthalmos. -? Neck: Supple, no pain or tenderness -? CV:? No peripheral edema. -? Pulmonary:? Normal respiratory effort. -? Ext: No cyanosis, edema, or deformity -? Skin: No rash. Normal palpation of skin.? -? Musculoskeletal: full range of motion; no joint tenderness. Normal digits and nails by inspection. No clubbing. -? NEURO: -? Mental Status: The patient was alert and oriented to time, place, and person. Normal recent/remote memory, concentration, and general fund of knowledge. -? Language: speech is slurred.? Naming, repetition, fluency, and comprehension intact. -? Cranial Nerves: PERRL 3 mm/brisk. EOMI, visual mcintosh full, no facial asymmetry, facial sensation intact, hearing intact, tongue midline, no evidence of atrophy or fibrillations. As performed by the nurse. Sternocleidomastoid and trapezius were equally strong. Soft palate raises equally, no uvular deviations -? Motor: normal bulk, tone involving bilateral upper extermity , appears to have weakness involving bilateral lower extermity as observed by MD and performed by nurse. -?Detailed reflex exam as performed by the nurse however unable to get reflexes. -? Tone: is normal and bulk is normal -? Sensation- decrease light touch over left side. -? Coordination: No dysmetria on [id number], finger follow finger or [id number]. -? Gait- not tested
--- NOTE | 2023-08-03 10:08 | CASEMGMT ---
Discharge Planning A list of?HH providers including quality and resource use data and consistent with the patient's preferred geographic region, medical needs, and insurance network was created in [employer]Port Guide.? This list was provided to the RN SULEMAN. Michelle Pereyra, Discharge Planning Asst.
--- NOTE | 2023-08-03 11:02 | CASEMGMT ---
ENRIQUE SHELL updated that patient will need IV steroids at discharge. ENRIQUE SHELL in to discuss discharge needs and plans with patient. Patient states she spoke with sister and she would like to go to [facility] for additional rehab. Patient declines SNF list. Patient denied further needs at this time. ENRIQUE SHELL updated SW regarding request for [facility].
--- NOTE | 2023-08-03 11:10 | CASEMGMT ---
Per RN CM patient would like to go to [facility]. IV steroids are also being recommended for 5 days. asked Michelle d/c business planning director to send a referral and inquire if the nursing facility can do IV steroids. Joselin ALICIA
--- NOTE | 2023-08-03 11:26 | CASEMGMT ---
Discharge Planning Referral sent via [facility]Port to [facility]. Michelle Pereyra, Discharge Planning Asst.
[2023-08-03 12:21] LABS: Bedside Glucose 248 mg/dL (74-106)
[2023-08-03 13:36] VITALS: BP 138/75; PULSE 67; RESP 16; TEMP 36.8; O2SAT 98
--- NOTE | 2023-08-03 13:42 | CASEMGMT ---
[facility] is not able to do IV steroids. JAYA notified physician of this information. JAYA also notified patient she was accepted at [facility] pending her insurance approving. Joselin ALICIA
[2023-08-03] MEDS: MethylPREDNISolone 1,000 MG in 0.9% Normal Saline (100mL Bag) 100 ML 100 MG IV (13:54)
[2023-08-03] MEDS: Acetaminophen/Butalbital/Caffe 1 Tablet PO (13:54)
--- NOTE | 2023-08-03 14:14 | PCM.PN.HOSP ---
Reason for Visit Reason for Visit: Diagnoses Syncope and collapse (07/31/23) Objective Data Objective Data Vital Signs: Vital Signs Temp Pulse Resp BP Pulse Ox O2 Del Method 98.2 F 67 16 138/75 H 98 Room Air 08/03/23 13:36 08/03/23 13:36 08/03/23 13:36 08/03/23 13:36 08/03/23 13:36 08/03/23 14:04 Oxygen Delivery Method Room Air Weight: 210 lb Body Mass Index (BMI) 33.9 Intake & Output: Intake and Output for Last 24 Hours 08/01/23 08/02/23 08/03/23 23:59 23:59 23:59 Intake Total 740 / 740 3231.67 / 3231.67 2896.67 / 2896.67 Output Total 1999 Balance -1260 / -1260 3231.67 / 3231.67 2896.67 / 2896.67 Lab / Micro Data 08/02/23 06:05 08/02/23 06:05 Labs: Laboratory Results - last 24 hr 08/02/23 13:30: Fluid Glucose 115 H, Fluid Total Protein < 0.1 08/02/23 17:25: POC Glucose 204 H 08/02/23 21:16: POC Glucose 248 H 08/03/23 06:27: POC Glucose 217 H 08/03/23 12:00: POC Glucose 248 H Micro: Microbiology 07/29/23 15:27 Urine, Catheterized Urine Culture - Final Presumptive E. coli 07/29/23 16:15 Mucosa - Nose SARS-CoV-2, Influenza & RSV (PCR) - Final Physical Exam Narrative Seen and examined. Patient complaining of numbness and tingling on her left upper extremity more than the right. No headache. No fever. Patient further has history of migraine headache currently mild but he states whenever she gets Solu-Medrol/steroid migraine gets worse and she needs migraine cocktail before that Physical exam General: Alert, Oriented x3, Cooperative HEENT: Atraumatic, PERRLA, EOMI, Normocephalic Oral: Oral mucosa moist. No Gingival or Mucosal Lesions/ Ulcerations Neck: Supple, No JVD, Negative Carotid Bruits Lungs: Air entry diminished in bilateral lung bases. No crepitation/rhonchi Cardiovascular: Regular rate, Regular Rhythm, Normal S1, Normal S2, No murmurs Abdomen: Bowel Sounds Present, Soft, Non Tender, Non-Distended : No dysuria. No renal angle tenderness. No suprapubic tenderness. Extremities: No edema, Capillary Refill Less than 3 Seconds Skin: No rashes, No breakdown Musculoskeletal: No Tenderness to Palpation of Joints or Extremities Neurological: Cranial nerves II-XII grossly intact, DTR 2+/4. No touch or pressure sensation below mid thigh bilateral lower extremities. No point stenosis of great toes. Psych/Mental Status: Flat affect. Assessment & Plan Assessment/Plan (1) Recurrent syncope: PLAN: Plan 1. Recurrent syncope/seizure disorder ? Unclear as to the etiology, stress test was unremarkable and echo was normal. Will cancel carotid Dopplers as this is low yield in the setting of syncope ? She does have a history of seizure disorder. EEG shows rare generalized spike and wave discharges. Diffuse slow activity mild in degree. ? Continue with her antiseizure medications ? Orthostatic vital signs were Positive on 08/01. Currently blood pressure normal 120/59/, 138/81. Patient does not complain of dizziness on walking on supervision of PT. 2. Left upper extremity numbness and tingling with loss of sensation bilateral thighs down to her feet ? She cannot tell positional changes of her toes on both feet ? MRI of her brain and C-spine indicate demyelinating disease possible MS, these findings were not noted on MRI brain from August so we will consult [facility] neurology for further evaluation ? MRI of thoracic spine as well as lumbar spine is pending for Wednesday ? She was transferred to [facility] in August the results are unremarkable as she was not appearing to have active disease at that time, her cervical and thoracic spine lesions have been stable and likely chronic plaque but she did not have any new disease which appears with change so hopefully workup at this time will give us a better diagnosis ? She does receive vitamin B12 injections and her B12 this admission was 400 ? Could not do a CTA of the head and neck today secondary to multiple IVs infiltrating and could not get enough contrast injection, will plan for PICC line and hopefully repeat CTA Patient had LP and thoracic and lumbar MRI spine today. Patient already had his cervical and brain MRI before. Reports mentioned below. Thoracic spine MRI does not show signal abnormality or enhancing lesion. [facility] neurologist to follow-up tomorrow. CSF tests are sent. Serum test are ordered. 08/03: History of chronic migraine headache: Currently patient having mild migraine headache. Started on Depakote 500 mg IV daily as needed for headache. Patient also on Phenergan and hydroxyzine therefore hydroxyzine discontinued. Compazine added for nausea/vomiting. Solu-Medrol 1 g IV daily for 5 days started as per neurologist recommendation. CSF and serum test still pending. 3. DM2 ? Had significant hyperglycemia and had an IO placed ? We will monitor blood sugars ? Accu-Cheks ACHS 08/03: Glucose around 253 and expected to go high on IV Solu-Medrol therefore dose of Lantus insulin increased. 4. HLD ? Continue with her Lipitor 5. Anxiety/depression ? Stable ?Continue with her home medications 6. GERD ? Stable ? Continue with PPI DVT: Lovenox Clinical Impression(s) from Imaging Studies Brain CT 07/29/23 15:37 IMPRESSION: Chronic involutional changes of the brain. No change or acute abnormality. Electronically Signed: Arias Pablo MD at 18:13 EST , Cervical Spine CT 07/29/23 15:37 IMPRESSION: There is no definite acute fracture/dislocation. Degenerative changes. Electronically Signed: Arias Pablo MD at 18:16 EST , Echocardiogram 07/30/23 00:14 Interpretation Summary The estimated ejection fraction is 65 %. Mild concentric left ventricular hypertrophy. Structually normal valves. Compared to prior study, there is no significant change. Ordering Physician: Lj Oreilly Referring Physician: Vi Eng Performed By: Debbie Camilo, RDCS, RVT Brain MRI 07/30/23 16:34 IMPRESSION: 1. Several focal areas of white matter signal hyperintensity without contrast enhancement. There is a stable area along the lateral aspect LEFT temporal lobe however it new area of nonenhancing subependymal white matter abnormality in the LEFT parietal lobe. 2. Interval development of a area of white matter hyperintensity with central nodular enhancement along the subependymal region of the RIGHT frontal lobe extending into the RIGHT centrum semiovale 3. Current findings are consistent with a demyelinating processes/MS with an area of acute demyelination in the RIGHT frontal lobe. Follow-up however in approximately 3-4 months is recommended to assure that there is not underlying mass associated involving the area of enhancement. 4. 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 5. No acute territorial infarct,. Cervical Spine MRI 07/30/23 16:34 IMPRESSION: 1. Unchanged disc changes at C5-6 and C6-7. Broad-based disc bulge mass effect complex at both levels greatest at C5-6. No cord compression or donte canal stenosis. 2. Multilevel foraminal stenosis contributed by uncovertebral joint and facet hypertrophic changes without change. 3. No evidence of cord compression or signal abnormality involving the spinal cord and no abnormal intramedullary contrast enhancement. 4. Persistent area of mild volume loss and T2 signal hyperintensity along the floor of the 4th ventricle at the level of the medulla consistent with an area of remote demyelinating plaque. Findings are stable. Brain CT 08/01/23 07:20 IMPRESSION: Age consistent changes, no acute findings. No interval change since 07/29/2023 CT is not sensitive for evaluation of MS. Please refer to the MR brain and C-spine from yesterday for further details of possible MS Electronically Signed: Pako Read MD at 13:13 EST , Lumbar Spine MRI 08/02/23 09:00 IMPRESSION: Very mild degenerative disc disease without significant lumbar spinal canal stenosis. Mild bilateral foraminal narrowing as above. Lumbar Puncture Fluoroscopy 08/02/23 12:45 IMPRESSION: Successful fluoroscopic-guided lumbar puncture. Thoracic Spine MRI 08/02/23 16:34 IMPRESSION: Very mild degenerative disc disease of the lower thoracic spine without significant spinal canal stenosis. No evidence for significant signal abnormality or enhancing lesion in the thoracic spinal cord. Charges/Coding Multi Select Codes Visit Charges Visit Charges: 83419 Subs Hosp L2
[2023-08-03] MEDS: proMETHazine 25 MG Tablet PO (14:16)
[2023-08-03 17:34] VITALS: BP 143/76; PULSE 77; RESP 12; TEMP 36.6; O2SAT 96
[2023-08-03 17:39] LABS: Bedside Glucose 277 mg/dL (74-106)
[2023-08-03] MEDS: proCHLORPERazine 10 MG/2 ML Vial 5 MG IV (18:47)
[2023-08-03 21:29] VITALS: BP 126/70; PULSE 66; RESP 14; TEMP 36.5; O2SAT 93
[2023-08-03] MEDS: Atorvastatin Calcium 80 MG Tablet PO (21:32)
[2023-08-03] MEDS: tiZANidine HCl 2 MG Tablet 4 MG PO (21:33)
[2023-08-03] MEDS: Gabapentin 800 MG Tablet PO (21:35)
[2023-08-03] MEDS: Insulin Glargine-YFGN 100 UNIT/ML Pen 20 UNIT SC (21:40)
[2023-08-03 22:10] LABS: Bedside Glucose 398 mg/dL (74-106)
[2023-08-04 03:24] VITALS: BP 155/83; PULSE 79; RESP 14; TEMP 36.4; O2SAT 98
[2023-08-04] MEDS: AMOXICILLIN 500 MG CAPSULE PO ×3 (06:05→22:02)
[2023-08-04 06:26] LABS: Bedside Glucose 281 mg/dL (74-106)
[2023-08-04] MEDS: Insulin Lispro 100 UNIT/ML INSULN.PEN SC ×4 (06:36→22:05)
[2023-08-04] MEDS: Potassium Chloride Oral Tablet 20 MEQ PO (08:24)
[2023-08-04] MEDS: Midodrine HCl 5 MG Tablet 10 MG PO ×3 (08:25→18:03)
[2023-08-04] MEDS: Gabapentin 100 MG Capsule 200 MG PO (08:26)
[2023-08-04] MEDS: Acetaminophen/Butalbital/Caffe 1 Tablet PO (08:27)
[2023-08-04 09:20] VITALS: BP 125/62; PULSE 66; RESP 16; TEMP 36.6; O2SAT 100
--- NOTE | 2023-08-04 09:56 | CASEMGMT ---
Addendum entered by Michelle Pereyra 08/05/23 09:54: Updates sent via CarePort to [facility]. Precert will be submitted today. Michelle Pereyra, Discharge Planning Asst. Original Note: Discharge Planning Msg sent via CarePort to [facility] that patient will complete IV steroids at hospital and be ready for discharge on Wednesday. Asked to submit for precert whenever they felt appropriate for it to be received for a Wednesday admission. Michelle Pereyra, Discharge Planning Asst.
[2023-08-04] MEDS: 0.9% Normal Saline (1000mL) 1,000 ML 100 ML IV ×2 (10:01→22:08)
[2023-08-04] MEDS: oxyCODONE 5 MG Tablet PO ×2 (10:01→22:05)
[2023-08-04] MEDS: DULoxetine Hcl 60 MG Capsule PO ×2 (10:05→22:02)
[2023-08-04] MEDS: Pantoprazole Sodium 40 MG Tablet PO (10:05)
[2023-08-04] MEDS: tiZANidine HCl 2 MG Tablet 4 MG PO (10:05)
[2023-08-04] MEDS: Topiramate 100 MG Tablet 200 MG PO ×2 (10:05→22:03)
[2023-08-04] MEDS: Enoxaparin 40 MG/0.4 ML Syringe SC (10:06)
[2023-08-04] MEDS: carBAMazepine 200 MG Tablet PO ×2 (10:06→22:04)
[2023-08-04] MEDS: Docusate Sodium 100 MG Capsule PO ×2 (10:06→22:02)
[2023-08-04] MEDS: proMETHazine 25 MG Tablet PO (10:15)
[2023-08-04] MEDS: Acetaminophen 325 MG Tablet 650 MG PO ×2 (10:15→22:05)
[2023-08-04] MEDS: Insulin Glargine-YFGN 100 UNIT/ML Pen 25 UNIT SC (10:16)
[2023-08-04] MEDS: MethylPREDNISolone 1,000 MG in 0.9% Normal Saline (100mL Bag) 100 ML 100 MG IV (10:17)
[2023-08-04 12:01] LABS: Bedside Glucose 366 mg/dL (74-106)
[2023-08-04 14:25] LABS: Pathologist Review Reviewed
--- NOTE | 2023-08-04 14:35 | PN.HOSP_ITS ---
Reason for Visit Reason for Visit: Diagnoses Syncope and collapse (07/31/23) Objective Data Objective Data Vital Signs: Vital Signs Temp Pulse Resp BP Pulse Ox O2 Del Method 97.8 F 66 16 125/62 H 100 Room Air 08/04/23 09:20 08/04/23 09:20 08/04/23 09:20 08/04/23 09:20 08/04/23 09:20 08/04/23 09:34 Oxygen Delivery Method Room Air Weight: 210 lb Body Mass Index (BMI) 33.9 Intake & Output: Intake and Output for Last 24 Hours 08/02/23 08/03/23 08/04/23 23:59 23:59 23:59 Intake Total 3231.67 / 3231.67 4777.67 / 4777.67 1262.67 / 1262.67 Balance 3231.67 / 3231.67 4777.67 / 4777.67 1262.67 / 1262.67 Lab / Micro Data 08/02/23 06:05 08/02/23 06:05 Labs: Laboratory Results - last 24 hr 08/02/23 13:30: CSF Comment Reviewed, Miscellaneous Cytology SEE PATHOLOGY REPORT 08/03/23 17:17: POC Glucose 277 H 08/03/23 21:38: POC Glucose 398 H 08/04/23 06:08: POC Glucose 281 H 08/04/23 11:37: POC Glucose 366 H Micro: Microbiology 07/29/23 15:27 Urine, Catheterized Urine Culture - Final Presumptive E. coli 07/29/23 16:15 Mucosa - Nose SARS-CoV-2, Influenza & RSV (PCR) - Final Physical Exam Narrative Seen and examined. Patient had headache yesterday, has history of chronic migraine headache. Today she denies any headache photophobia. Patient complaining of numbness and tingling on her left upper extremity more than the right. No fever. Physical exam General: Alert, Oriented x3, Cooperative HEENT: Atraumatic, PERRLA, EOMI, Normocephalic Oral: Oral mucosa moist. No Gingival or Mucosal Lesions/ Ulcerations Neck: Supple, No JVD, Negative Carotid Bruits Lungs: Air entry diminished in bilateral lung bases. No crepitation/rhonchi Cardiovascular: Regular rate, Regular Rhythm, Normal S1, Normal S2, No murmurs Abdomen: Bowel Sounds Present, Soft, Non Tender, Non-Distended : No dysuria. No renal angle tenderness. No suprapubic tenderness. Extremities: No edema, Capillary Refill Less than 3 Seconds Skin: No rashes, No breakdown Musculoskeletal: No Tenderness to Palpation of Joints or Extremities. ROM intact. Neurological: Cranial nerves II-XII grossly intact, DTR 2+/4. No touch or pressure sensation below mid thigh bilateral lower extremities. No position sense of great toes. Psych/Mental Status: Flat affect. Assessment & Plan Assessment/Plan (1) Recurrent syncope: PLAN: Plan 1. Recurrent syncope/seizure disorder ? Unclear as to the etiology, stress test was unremarkable and echo was normal. Will cancel carotid Dopplers as this is low yield in the setting of syncope ? She does have a history of seizure disorder. EEG shows rare generalized spike and wave discharges. Diffuse slow activity mild in degree. ? Continue with her antiseizure medications ? Orthostatic vital signs were Positive on 08/01. Currently blood pressure normal 120/59/, 138/81. Patient does not complain of dizziness on walking on supervision of PT. 2. Left upper extremity numbness and tingling with loss of sensation bilateral thighs down to her feet ? She cannot tell positional changes of her toes on both feet ? MRI of her brain and C-spine indicate demyelinating disease possible MS, these findings were not noted on MRI brain from August so we will consult [facility] neurology for further evaluation ? MRI of thoracic spine as well as lumbar spine is pending for Wednesday ? She was transferred to [facility] in August the results are unremarkable as she was not appearing to have active disease at that time, her cervical and thoracic spine lesions have been stable and likely chronic plaque but she did not have any new disease which appears with change so hopefully workup at this time will give us a better diagnosis ? She does receive vitamin B12 injections and her B12 this admission was 400 ? Could not do a CTA of the head and neck today secondary to multiple IVs infiltrating and could not get enough contrast injection, will plan for PICC line and hopefully repeat CTA Patient had LP and thoracic and lumbar MRI spine today. Patient already had his cervical and brain MRI before. Reports mentioned below. Thoracic spine MRI does not show signal abnormality or enhancing lesion. [facility] neurologist to follow-up tomorrow. CSF tests are sent. Serum test are ordered. 08/04: CSF and serum send out tests are still pending. 08/03: History of chronic migraine headache: Currently patient having mild migraine headache. Started on Depakote 500 mg IV daily as needed for headache. Patient also on Phenergan and hydroxyzine therefore hydroxyzine discontinued. Compazine added for nausea/vomiting. Solu-Medrol 1 g IV daily for 5 days started as per neurologist recommendation. CSF and serum test still pending. 08/04: Continue IV Solu-Medrol, starting date was 08/03. Patient on prophylactic Depakote and Phenergan. 3. DM2 ? Had significant hyperglycemia and had an IO placed ? We will monitor blood sugars ? Accu-Cheks ACHS 08/03: Glucose around 253 and expected to go high on IV Solu-Medrol therefore dose of Lantus insulin increased. 08/04 glucose is high about 366, 400. Lantus dose and short-acting insulin dose increased. Patient on high dose of Lantus and Humalog insulin therefore needs watch for hypoglycemia. 4. HLD ? Continue with her Lipitor 5. Anxiety/depression ? Stable ?Continue with her home medications 6. GERD ? Stable ? Continue with PPI DVT: Lovenox Microbiology Past 72 Hours 07/29/23 15:27 Urine, Catheterized Urine Culture - Final Presumptive E. coli Laboratory Results 08/02/23 13:30: CSF Comment Reviewed, Miscellaneous Cytology SEE PATHOLOGY REPORT 08/03/23 17:17: POC Glucose 277 H 08/03/23 21:38: POC Glucose 398 H 08/04/23 06:08: POC Glucose 281 H 08/04/23 11:37: POC Glucose 366 H Clinical Impression(s) from Imaging Studies Brain CT 07/29/23 15:37 IMPRESSION: Chronic involutional changes of the brain. No change or acute abnormality. Electronically Signed: Arias Pablo MD at 18:13 EST , Cervical Spine CT 07/29/23 15:37 IMPRESSION: There is no definite acute fracture/dislocation. Degenerative changes. Electronically Signed: Arias Pablo MD at 18:16 EST , Echocardiogram 07/30/23 00:14 Interpretation Summary The estimated ejection fraction is 65 %. Mild concentric left ventricular hypertrophy. Structually normal valves. Compared to prior study, there is no significant change. Ordering Physician: Lj Oreilly Referring Physician: Vi Eng Performed By: Debbie Camilo, CHAPIS, RVT Brain MRI 07/30/23 16:34 IMPRESSION: 1. Several focal areas of white matter signal hyperintensity without contrast enhancement. There is a stable area along the lateral aspect LEFT temporal lobe however it new area of nonenhancing subependymal white matter abnormality in the LEFT parietal lobe. 2. Interval development of a area of white matter hyperintensity with central nodular enhancement along the subependymal region of the RIGHT frontal lobe extending into the RIGHT centrum semiovale 3. Current findings are consistent with a demyelinating processes/MS with an area of acute demyelination in the RIGHT frontal lobe. Follow-up however in approximately 3-4 months is recommended to assure that there is not underlying mass associated involving the area of enhancement. 4. 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 5. No acute territorial infarct,. Cervical Spine MRI 07/30/23 16:34 IMPRESSION: 1. Unchanged disc changes at C5-6 and C6-7. Broad-based disc bulge mass effect complex at both levels greatest at C5-6. No cord compression or donte canal stenosis. 2. Multilevel foraminal stenosis contributed by uncovertebral joint and facet hypertrophic changes without change. 3. No evidence of cord compression or signal abnormality involving the spinal cord and no abnormal intramedullary contrast enhancement. 4. Persistent area of mild volume loss and T2 signal hyperintensity along the floor of the 4th ventricle at the level of the medulla consistent with an area of remote demyelinating plaque. Findings are stable. Brain CT 08/01/23 07:20 IMPRESSION: Age consistent changes, no acute findings. No interval change since 07/29/2023 CT is not sensitive for evaluation of MS. Please refer to the MR brain and C-spine from yesterday for further details of possible MS Electronically Signed: Pako Read MD at 13:13 EST , Lumbar Spine MRI 08/02/23 09:00 IMPRESSION: Very mild degenerative disc disease without significant lumbar spinal canal stenosis. Mild bilateral foraminal narrowing as above. Lumbar Puncture Fluoroscopy 08/02/23 12:45 IMPRESSION: Successful fluoroscopic-guided lumbar puncture. Thoracic Spine MRI 08/02/23 16:34 IMPRESSION: Very mild degenerative disc disease of the lower thoracic spine without significant spinal canal stenosis. No evidence for significant signal abnormality or enhancing lesion in the thoracic spinal cord. Charges/Coding Visit Charges Inpatient E&M: 57538 Subs Hosp L2
[2023-08-04 15:12] VITALS: BP 152/73; PULSE 67; RESP 17; TEMP 36.7; O2SAT 98
[2023-08-04] MEDS: Insulin Glargine-YFGN 100 UNIT/ML Pen 20 UNIT SC (16:41)
[2023-08-04 17:00] LABS: Bedside Glucose 438 mg/dL (74-106)
[2023-08-04] MEDS: Insulin Lispro 100 UNIT/ML INSULN.PEN 15 UNIT SC (17:26)
[2023-08-04] MEDS: 0.9% Saline Lock 10 ML Syringe IV (17:26)
[2023-08-04 21:45] VITALS: BP 148/77; PULSE 71; RESP 17; TEMP 36.7; O2SAT 97
[2023-08-04] MEDS: Atorvastatin Calcium 80 MG Tablet PO (22:04)
[2023-08-04] MEDS: Gabapentin 800 MG Tablet PO (22:04)
[2023-08-04] MEDS: Insulin Glargine-YFGN 100 UNIT/ML Pen 30 UNIT SC (22:06)
[2023-08-04 22:38] LABS: Bedside Glucose 380 mg/dL (74-106)
[2023-08-05 03:45] VITALS: BP 109/59; PULSE 65; RESP 16; RESP 17; TEMP 36.4; TEMP 36.5; O2SAT 97
[2023-08-05] MEDS: Insulin Lispro 100 UNIT/ML INSULN.PEN SC ×3 (06:32→21:16)
[2023-08-05] MEDS: AMOXICILLIN 500 MG CAPSULE PO ×3 (06:33→21:11)
[2023-08-05 06:55] LABS: Bedside Glucose 187 mg/dL (74-106)
[2023-08-05 08:43] VITALS: BP 120/68; PULSE 66; RESP 16; TEMP 36.6; O2SAT 99
[2023-08-05] MEDS: Insulin Lispro 100 UNIT/ML INSULN.PEN 15 UNIT SC ×3 (08:45→16:55)
[2023-08-05] MEDS: Gabapentin 100 MG Capsule 200 MG PO (08:45)
[2023-08-05] MEDS: Potassium Chloride Oral Tablet 20 MEQ PO (08:46)
[2023-08-05] MEDS: Docusate Sodium 100 MG Capsule PO ×2 (08:47→21:11)
[2023-08-05] MEDS: Midodrine HCl 5 MG Tablet 10 MG PO ×3 (08:47→16:48)
[2023-08-05] MEDS: DULoxetine Hcl 60 MG Capsule PO ×2 (08:47→21:11)
[2023-08-05] MEDS: Enoxaparin 40 MG/0.4 ML Syringe SC (08:47)
[2023-08-05] MEDS: Insulin Glargine-YFGN 100 UNIT/ML Pen 40 UNIT SC (08:48)
[2023-08-05] MEDS: Pantoprazole Sodium 40 MG Tablet PO (08:48)
[2023-08-05] MEDS: Topiramate 100 MG Tablet 200 MG PO ×2 (08:49→21:13)
[2023-08-05] MEDS: carBAMazepine 200 MG Tablet PO ×2 (08:49→21:13)
[2023-08-05] MEDS: proMETHazine 25 MG Tablet PO (09:00)
[2023-08-05] MEDS: Acetaminophen/Butalbital/Caffe 1 Tablet PO ×2 (09:00→16:51)
[2023-08-05] MEDS: 0.9% Normal Saline (1000mL) 1,000 ML 100 ML IV ×2 (09:03→21:10)
--- NOTE | 2023-08-05 09:27 | PN.HOSP_ITS ---
Reason for Visit Reason for Visit: Diagnoses Syncope and collapse (07/31/23) Objective Data Objective Data Vital Signs: Vital Signs Temp Pulse Resp BP Pulse Ox O2 Del Method 98 F 66 16 120/68 99 Room Air 08/05/23 08:43 08/05/23 08:43 08/05/23 08:43 08/05/23 08:43 08/05/23 08:43 08/05/23 09:24 Oxygen Delivery Method Room Air Weight: 210 lb Body Mass Index (BMI) 33.9 Intake & Output: Intake and Output for Last 24 Hours 08/03/23 08/04/23 08/05/23 23:59 23:59 23:59 Intake Total 4777.67 / 4777.67 3036.00 / 3036.00 1000 / 1000 Balance 4777.67 / 4777.67 3036.00 / 3036.00 1000 / 1000 Lab / Micro Data 08/02/23 06:05 08/02/23 06:05 Labs: Laboratory Results - last 24 hr 08/02/23 13:30: CSF Comment Reviewed, Miscellaneous Cytology SEE PATHOLOGY REPORT 08/03/23 07:05: Miscellaneous Test 08/03/23 07:05: Miscellaneous Test 08/04/23 11:37: POC Glucose 366 H 08/04/23 16:40: POC Glucose 438 H 08/04/23 21:45: POC Glucose 380 H 08/05/23 06:31: POC Glucose 187 H Micro: Microbiology 07/29/23 15:27 Urine, Catheterized Urine Culture - Final Presumptive E. coli 07/29/23 16:15 Mucosa - Nose SARS-CoV-2, Influenza & RSV (PCR) - Final Physical Exam Narrative Seen and examined. Patient has third day of IV Solu-Medrol. Mild headache like migraine in nature. Patient had Phenergan. Patient had headache yesterday, has history of chronic migraine headache. Today she denies any headache photophobia. Patient complaining of numbness and tingling on her left upper extremity more than the right. No fever. Physical exam General: Alert, Oriented x3, Cooperative HEENT: Atraumatic, PERRLA, EOMI, Normocephalic Oral: Oral mucosa moist. No Gingival or Mucosal Lesions/ Ulcerations Neck: Supple, No JVD, Negative Carotid Bruits Lungs: Air entry diminished in bilateral lung bases. No crepitation/rhonchi Cardiovascular: Regular rate, Regular Rhythm, Normal S1, Normal S2, No murmurs Abdomen: Bowel Sounds Present, Soft, Non Tender, Non-Distended : No dysuria. No renal angle tenderness. No suprapubic tenderness. Extremities: No edema, Capillary Refill Less than 3 Seconds Skin: No rashes, No breakdown Musculoskeletal: No Tenderness to Palpation of Joints or Extremities. ROM intact. Neurological: Cranial nerves II-XII grossly intact, DTR 2+/4. No touch or pressure sensation below mid thigh bilateral lower extremities. No position sense of great toes. Psych/Mental Status: Flat affect. Assessment & Plan Assessment/Plan (1) Recurrent syncope: PLAN: Plan 1. Recurrent syncope/seizure disorder ? Unclear as to the etiology, stress test was unremarkable and echo was normal. Will cancel carotid Dopplers as this is low yield in the setting of syncope ? She does have a history of seizure disorder. EEG shows rare generalized spike and wave discharges. Diffuse slow activity mild in degree. ? Continue with her antiseizure medications ? Orthostatic vital signs were Positive on 08/01. Currently blood pressure normal 120/59/, 138/81. Patient does not complain of dizziness on walking on supervision of PT. 2. Left upper extremity numbness and tingling with loss of sensation bilateral thighs down to her feet ? She cannot tell positional changes of her toes on both feet ? MRI of her brain and C-spine indicate demyelinating disease possible MS, these findings were not noted on MRI brain from August so we will consult [facility] neurology for further evaluation ? MRI of thoracic spine as well as lumbar spine is pending for Wednesday ? She was transferred to [facility] in August the results are unremarkable as she was not appearing to have active disease at that time, her cervical and thoracic spine lesions have been stable and likely chronic plaque but she did not have any new disease which appears with change so hopefully workup at this time will give us a better diagnosis ? She does receive vitamin B12 injections and her B12 this admission was 400 ? Could not do a CTA of the head and neck today secondary to multiple IVs infiltrating and could not get enough contrast injection, will plan for PICC line and hopefully repeat CTA Patient had LP and thoracic and lumbar MRI spine today. Patient already had his cervical and brain MRI before. Reports mentioned below. Thoracic spine MRI does not show signal abnormality or enhancing lesion. [facility] neurologist to follow-up tomorrow. CSF tests are sent. Serum test are ordered. 08/04: CSF and serum send out tests are still pending. 08/05: CSF cytology negative for malignant cells. Anti-MOG serum test negative. 08/03: History of chronic migraine headache: Currently patient having mild migraine headache. Started on Depakote 500 mg IV daily as needed for headache. Patient also on Phenergan and hydroxyzine therefore hydroxyzine discontinued. Compazine added for nausea/vomiting. Solu-Medrol 1 g IV daily for 5 days started as per neurologist recommendation. CSF and serum test still pending. 08/04: Continue IV Solu-Medrol, starting date was 08/03. Patient on prophylactic Depakote and Phenergan. 3. DM2 ? Had significant hyperglycemia and had an IO placed ? We will monitor blood sugars ? Accu-Cheks ACHS 08/03: Glucose around 253 and expected to go high on IV Solu-Medrol therefore dose of Lantus insulin increased. 08/04 glucose is high about 366, 400. Lantus dose and short-acting insulin dose increased. Patient on high dose of Lantus and Humalog insulin therefore needs watch for hypoglycemia. 08/05: Glucose is better about 152 maximum of 187. Continue same regimen of Lantus and Humalog insulin. 4. HLD ? Continue with her Lipitor 5. Anxiety/depression ? Stable ?Continue with her home medications 6. GERD ? Stable ? Continue with PPI DVT: Lovenox Clinical Impression(s) from Imaging Studies Brain CT 07/29/23 15:37 IMPRESSION: Chronic involutional changes of the brain. No change or acute abnormality. Electronically Signed: Arias Pablo MD at 18:13 EST , Cervical Spine CT 07/29/23 15:37 IMPRESSION: There is no definite acute fracture/dislocation. Degenerative changes. Electronically Signed: Arias Pablo MD at 18:16 EST , Echocardiogram 07/30/23 00:14 Interpretation Summary The estimated ejection fraction is 65 %. Mild concentric left ventricular hypertrophy. Structually normal valves. Compared to prior study, there is no significant change. Ordering Physician: Lj Oreilly Referring Physician: Vi Eng Performed By: Debbie Camilo, CHAPIS, RVT Brain MRI 07/30/23 16:34 IMPRESSION: 1. Several focal areas of white matter signal hyperintensity without contrast enhancement. There is a stable area along the lateral aspect LEFT temporal lobe however it new area of nonenhancing subependymal white matter abnormality in the LEFT parietal lobe. 2. Interval development of a area of white matter hyperintensity with central nodular enhancement along the subependymal region of the RIGHT frontal lobe extending into the RIGHT centrum semiovale 3. Current findings are consistent with a demyelinating processes/MS with an area of acute demyelination in the RIGHT frontal lobe. Follow-up however in approximately 3-4 months is recommended to assure that there is not underlying mass associated involving the area of enhancement. 4. 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 5. No acute territorial infarct,. Cervical Spine MRI 07/30/23 16:34 IMPRESSION: 1. Unchanged disc changes at C5-6 and C6-7. Broad-based disc bulge mass effect complex at both levels greatest at C5-6. No cord compression or donte canal stenosis. 2. Multilevel foraminal stenosis contributed by uncovertebral joint and facet hypertrophic changes without change. 3. No evidence of cord compression or signal abnormality involving the spinal cord and no abnormal intramedullary contrast enhancement. 4. Persistent area of mild volume loss and T2 signal hyperintensity along the floor of the 4th ventricle at the level of the medulla consistent with an area of remote demyelinating plaque. Findings are stable. Brain CT 08/01/23 07:20 IMPRESSION: Age consistent changes, no acute findings. No interval change since 07/29/2023 CT is not sensitive for evaluation of MS. Please refer to the MR brain and C-spine from yesterday for further details of possible MS Electronically Signed: Pako Read MD at 13:13 EST , Lumbar Spine MRI 08/02/23 09:00 IMPRESSION: Very mild degenerative disc disease without significant lumbar spinal canal stenosis. Mild bilateral foraminal narrowing as above. Lumbar Puncture Fluoroscopy 08/02/23 12:45 IMPRESSION: Successful fluoroscopic-guided lumbar puncture. Thoracic Spine MRI 08/02/23 16:34 IMPRESSION: Very mild degenerative disc disease of the lower thoracic spine without significant spinal canal stenosis. No evidence for significant signal abnormality or enhancing lesion in the thoracic spinal cord. Charges/Coding Visit Charges Inpatient E&M: 55301 Subs Hosp L2
[2023-08-05] MEDS: MethylPREDNISolone 1,000 MG in 0.9% Normal Saline (100mL Bag) 100 ML 100 MG IV (09:41)
[2023-08-05 09:47] LABS: Bedside Glucose 190 mg/dL (74-106)
[2023-08-05 12:43] LABS: Bedside Glucose 152 mg/dL (74-106)
[2023-08-05 14:42] VITALS: BP 123/73; PULSE 71; RESP 16; TEMP 36.8; O2SAT 97
[2023-08-05] MEDS: oxyCODONE 5 MG Tablet PO ×2 (14:45→21:12)
[2023-08-05] MEDS: Acetaminophen 325 MG Tablet 650 MG PO ×2 (14:45→21:12)
[2023-08-05 16:45] VITALS: BP 134/76; PULSE 71; RESP 16; TEMP 36.4; O2SAT 96
[2023-08-05] MEDS: tiZANidine HCl 2 MG Tablet 4 MG PO (16:47)
[2023-08-05 18:45] LABS: Bedside Glucose 283 mg/dL (74-106)
[2023-08-05] MEDS: Atorvastatin Calcium 80 MG Tablet PO (21:11)
[2023-08-05] MEDS: Gabapentin 800 MG Tablet PO (21:13)
[2023-08-05] MEDS: Insulin Glargine-YFGN 100 UNIT/ML Pen 30 UNIT SC (21:17)
[2023-08-05 21:19] VITALS: BP 169/91; PULSE 63; RESP 15; TEMP 36.8; O2SAT 98
[2023-08-05 22:25] LABS: Bedside Glucose 346 mg/dL (74-106)
[2023-08-06] VITALS (7 sets, daily range): BP systolic 124–165; BP diastolic 50–90; PULSE 60–81; RESP 15–18; TEMP 36.4–36.8; O2SAT 96–100
[2023-08-06] MEDS: Acetaminophen/Butalbital/Caffe 1 Tablet PO ×2 (03:12→23:30)
[2023-08-06] MEDS: AMOXICILLIN 500 MG CAPSULE PO ×3 (06:06→21:38)
[2023-08-06] MEDS: Midodrine HCl 5 MG Tablet 10 MG PO ×3 (08:38→17:12)
[2023-08-06] MEDS: Docusate Sodium 100 MG Capsule PO ×2 (08:38→21:38)
[2023-08-06] MEDS: DULoxetine Hcl 60 MG Capsule PO ×2 (08:38→21:38)
[2023-08-06] MEDS: Enoxaparin 40 MG/0.4 ML Syringe SC (08:39)
[2023-08-06] MEDS: carBAMazepine 200 MG Tablet PO ×2 (08:39→21:39)
[2023-08-06] MEDS: Pantoprazole Sodium 40 MG Tablet PO (08:39)
[2023-08-06] MEDS: Potassium Chloride Oral Tablet 20 MEQ PO (08:39)
[2023-08-06] MEDS: Insulin Glargine-YFGN 100 UNIT/ML Pen 40 UNIT SC (08:40)
[2023-08-06] MEDS: Topiramate 100 MG Tablet 200 MG PO ×2 (08:40→21:38)
[2023-08-06] MEDS: Insulin Lispro 100 UNIT/ML INSULN.PEN 15 UNIT SC ×3 (08:41→17:13)
[2023-08-06] MEDS: Insulin Lispro 100 UNIT/ML INSULN.PEN SC ×4 (08:41→21:43)
[2023-08-06 08:44] LABS: Bedside Glucose 192 mg/dL (74-106)
[2023-08-06] MEDS: 0.9% Normal Saline (1000mL) 1,000 ML 100 ML IV ×2 (08:54→18:29)
[2023-08-06] MEDS: proMETHazine 25 MG Tablet PO (08:54)
[2023-08-06] MEDS: Gabapentin 100 MG Capsule 200 MG PO (09:44)
[2023-08-06] MEDS: MethylPREDNISolone 1,000 MG in 0.9% Normal Saline (100mL Bag) 100 ML 100 MG IV (09:44)
[2023-08-06] MEDS: Valproate Sodium 500 MG in Dextrose 5%-Water (50mL Bag) 50 ML 50 MG IV (11:22)
[2023-08-06 12:04] LABS: Bedside Glucose 230 mg/dL (74-106)
--- NOTE | 2023-08-06 16:15 | PN.HOSP_ITS ---
Reason for Visit Reason for Visit: Diagnoses Syncope and collapse (07/31/23) Objective Data Objective Data Vital Signs: Vital Signs Temp Pulse Resp BP Pulse Ox O2 Del Method 98.2 F 81 16 133/75 H 96 Room Air 08/06/23 14:34 08/06/23 14:34 08/06/23 14:34 08/06/23 14:34 08/06/23 14:34 08/06/23 14:34 Oxygen Delivery Method Room Air Weight: 210 lb Body Mass Index (BMI) 33.9 Intake & Output: Intake and Output for Last 24 Hours 08/04/23 08/05/23 08/06/23 23:59 23:59 23:59 Intake Total 3036.00 / 3036.00 2716 / 2716 1621 / 1621 Balance 3036.00 / 3036.00 2716 / 2716 1621 / 1621 Lab / Micro Data 08/02/23 06:05 08/02/23 06:05 Labs: Laboratory Results - last 24 hr 08/05/23 16:53: POC Glucose 283 H 08/05/23 21:15: POC Glucose 346 H 08/06/23 08:24: POC Glucose 192 H 08/06/23 11:25: POC Glucose 230 H Micro: Microbiology 07/29/23 15:27 Urine, Catheterized Urine Culture - Final Presumptive E. coli 07/29/23 16:15 Mucosa - Nose SARS-CoV-2, Influenza & RSV (PCR) - Final Physical Exam Narrative Seen and examined. Patient has fourth day of IV Solu-Medrol. Mild headache like migraine in nature. Patient On Phenergan and Depakote. Today she denies any headache photophobia. Patient complaining of numbness and tingling on her left upper extremity more than the right. No fever. Physical exam General: Alert, Oriented x3, Cooperative HEENT: Atraumatic, PERRLA, EOMI, Normocephalic Oral: Oral mucosa moist. No Gingival or Mucosal Lesions/ Ulcerations Neck: Supple, No JVD, Negative Carotid Bruits Lungs: Air entry diminished in bilateral lung bases. No crepitation/rhonchi Cardiovascular: Regular rate, Regular Rhythm, Normal S1, Normal S2, No murmurs Abdomen: Bowel Sounds Present, Soft, Non Tender, Non-Distended : No dysuria. No renal angle tenderness. No suprapubic tenderness. Extremities: No edema, Capillary Refill Less than 3 Seconds Skin: No rashes, No breakdown Musculoskeletal: No Tenderness to Palpation of Joints or Extremities. ROM intact. Neurological: Cranial nerves II-XII grossly intact, DTR 2+/4. No touch or pressure sensation below mid thigh bilateral lower extremities. No position sense of great toes. Psych/Mental Status: Flat affect. Assessment & Plan Assessment/Plan (1) Recurrent syncope: PLAN: Plan 1. Recurrent syncope/seizure disorder ? Unclear as to the etiology, stress test was unremarkable and echo was normal. Will cancel carotid Dopplers as this is low yield in the setting of syncope ? She does have a history of seizure disorder. EEG shows rare generalized spike and wave discharges. Diffuse slow activity mild in degree. ? Continue with her antiseizure medications ? Orthostatic vital signs were Positive on 08/01. Currently blood pressure normal 120/59/, 138/81. Patient does not complain of dizziness on walking on supervision of PT. 2. Left upper extremity numbness and tingling with loss of sensation bilateral thighs down to her feet ? She cannot tell positional changes of her toes on both feet ? MRI of her brain and C-spine indicate demyelinating disease possible MS, these findings were not noted on MRI brain from August so we will consult [facility] neurology for further evaluation ? MRI of thoracic spine as well as lumbar spine is pending for Wednesday ? She was transferred to [facility] in August the results are unremarkable as she was not appearing to have active disease at that time, her cervical and thoracic spine lesions have been stable and likely chronic plaque but she did not have any new disease which appears with change so hopefully workup at this time will give us a better diagnosis ? She does receive vitamin B12 injections and her B12 this admission was 400 ? Could not do a CTA of the head and neck today secondary to multiple IVs infiltrating and could not get enough contrast injection, will plan for PICC [facility] and hopefully repeat CTA Patient had LP and thoracic and lumbar MRI spine today. Patient already had his cervical and brain MRI before. Reports mentioned below. Thoracic spine MRI does not show signal abnormality or enhancing lesion. [facility] neurologist to follow-up tomorrow. CSF tests are sent. Serum test are ordered. 08/04: CSF and serum send out tests are still pending. 08/05: CSF cytology negative for malignant cells. Anti-MOG serum test negative. 08/06: No significant change. Patient requested Depakote to be given before IV Solu-Medrol discussed with the nursing staff. Medications are already ordered. Expect discharge tomorrow after completion of IV Solu-Medrol. 08/03: History of chronic migraine headache: Currently patient having mild migraine headache. Started on Depakote 500 mg IV daily as needed for headache. Patient also on Phenergan and hydroxyzine therefore hydroxyzine discontinued. Compazine added for nausea/vomiting. Solu-Medrol 1 g IV daily for 5 days started as per neurologist recommendation. CSF and serum test still pending. 08/04: Continue IV Solu-Medrol, starting date was 08/03. Patient on prophylactic Depakote and Phenergan. 3. DM2 ? Had significant hyperglycemia and had an IO placed ? We will monitor blood sugars ? Accu-Cheks ACHS 08/03: Glucose around 253 and expected to go high on IV Solu-Medrol therefore dose of Lantus insulin increased. 08/04 glucose is high about 366, 400. Lantus dose and short-acting insulin dose increased. Patient on high dose of Lantus and Humalog insulin therefore needs watch for hypoglycemia. 08/05: Glucose is better about 152 maximum of 187. Continue same regimen of Lantus and Humalog insulin. 4. HLD ? Continue with her Lipitor 5. Anxiety/depression ? Stable ?Continue with her home medications 6. GERD ? Stable ? Continue with PPI DVT: Lovenox Clinical Impression(s) from Imaging Studies Brain CT 07/29/23 15:37 IMPRESSION: Chronic involutional changes of the brain. No change or acute abnormality. Electronically Signed: Arias Pablo MD at 18:13 EST , Cervical Spine CT 07/29/23 15:37 IMPRESSION: There is no definite acute fracture/dislocation. Degenerative changes. Electronically Signed: Arias Pablo MD at 18:16 EST , Echocardiogram 07/30/23 00:14 Interpretation Summary The estimated ejection fraction is 65 %. Mild concentric left ventricular hypertrophy. Structually normal valves. Compared to prior study, there is no significant change. Ordering Physician: Lj Oreilly Referring Physician: Vi Eng Performed By: Debbei Camilo, CHAPIS, RVT Brain MRI 07/30/23 16:34 IMPRESSION: 1. Several focal areas of white matter signal hyperintensity without contrast enhancement. There is a stable area along the lateral aspect LEFT temporal lobe however it new area of nonenhancing subependymal white matter abnormality in the LEFT parietal lobe. 2. Interval development of a area of white matter hyperintensity with central nodular enhancement along the subependymal region of the RIGHT frontal lobe extending into the RIGHT centrum semiovale 3. Current findings are consistent with a demyelinating processes/MS with an area of acute demyelination in the RIGHT frontal lobe. Follow-up however in approximately 3-4 months is recommended to assure that there is not underlying mass associated involving the area of enhancement. 4. 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 5. No acute territorial infarct,. Cervical Spine MRI 07/30/23 16:34 IMPRESSION: 1. Unchanged disc changes at C5-6 and C6-7. Broad-based disc bulge mass effect complex at both levels greatest at C5-6. No cord compression or donte canal stenosis. 2. Multilevel foraminal stenosis contributed by uncovertebral joint and facet hypertrophic changes without change. 3. No evidence of cord compression or signal abnormality involving the spinal cord and no abnormal intramedullary contrast enhancement. 4. Persistent area of mild volume loss and T2 signal hyperintensity along the floor of the 4th ventricle at the level of the medulla consistent with an area of remote demyelinating plaque. Findings are stable. Brain CT 08/01/23 07:20 IMPRESSION: Age consistent changes, no acute findings. No interval change since 07/29/2023 CT is not sensitive for evaluation of MS. Please refer to the MR brain and C-spine from yesterday for further details of possible MS Electronically Signed: Pako Read MD at 13:13 EST Reading Location ID and State: [facility] / [place] , Service support , Lumbar Spine MRI 08/02/23 09:00 IMPRESSION: Very mild degenerative disc disease without significant lumbar spinal canal stenosis. Mild bilateral foraminal narrowing as above. Lumbar Puncture Fluoroscopy 08/02/23 12:45 IMPRESSION: Successful fluoroscopic-guided lumbar puncture. Thoracic Spine MRI 08/02/23 16:34 IMPRESSION: Very mild degenerative disc disease of the lower thoracic spine without significant spinal canal stenosis. No evidence for significant signal abnormality or enhancing lesion in the thoracic spinal cord. Charges/Coding Visit Charges Inpatient E&M: 48858 Subs Hosp L2
[2023-08-06 16:52] LABS: Bedside Glucose 303 mg/dL (74-106)
[2023-08-06] MEDS: tiZANidine HCl 2 MG Tablet 4 MG PO (17:12)
[2023-08-06] MEDS: Gabapentin 800 MG Tablet PO (21:36)
[2023-08-06] MEDS: Atorvastatin Calcium 80 MG Tablet PO (21:38)
[2023-08-06] MEDS: Insulin Glargine-YFGN 100 UNIT/ML Pen 30 UNIT SC (21:43)
[2023-08-06 22:22] LABS: Bedside Glucose 274 mg/dL (74-106)
[2023-08-07 03:00] VITALS: BP 149/75; PULSE 65; RESP 15; TEMP 36.7; O2SAT 96
[2023-08-07 04:23] VITALS: BP 149/75; PULSE 65; RESP 15; TEMP 36.7; O2SAT 96
[2023-08-07] MEDS: 0.9% Normal Saline (1000mL) 1,000 ML 100 ML IV (05:27)
[2023-08-07] MEDS: AMOXICILLIN 500 MG CAPSULE PO (05:27)
[2023-08-07 08:39] VITALS: BP 141/78; PULSE 62; RESP 16; TEMP 35.9; O2SAT 100
[2023-08-07] MEDS: Potassium Chloride Oral Tablet 20 MEQ PO (08:41)
[2023-08-07] MEDS: Midodrine HCl 5 MG Tablet 10 MG PO ×2 (08:42→12:13)
[2023-08-07] MEDS: Gabapentin 100 MG Capsule 200 MG PO (08:42)
[2023-08-07] MEDS: Valproate Sodium 500 MG in Dextrose 5%-Water (50mL Bag) 50 ML 50 MG IV (08:46)
[2023-08-07] MEDS: tiZANidine HCl 2 MG Tablet 4 MG PO (08:46)
[2023-08-07 09:11] LABS: Bedside Glucose 121 mg/dL (74-106)
--- NOTE | 2023-08-07 09:20 | TREXTCAR_ITS ---
Diet Diet Order/Speech Therapy: 08/04/23 14:38 Diet: Carbohydrate Controlled Is pt able to select menu?: Yes Diet Comments: 4 to 5 CHO servings per meal Routine Orders/Code Status Suppository Type: Dulcolax 10mg Suppository Frequency: Daily PRN Wound(s) right knee: Wound Type: Abrasion left tibial: Wound Type: Puncture lumbar puncture: Wound Type: Puncture Problem/Diagnosis (1) Recurrent syncope: Status: Acute Code(s): R55 - Syncope and collapse Plan 1. Recurrent syncope/seizure disorder ? Unclear as to the etiology, stress test was unremarkable and echo was normal. Will cancel carotid Dopplers as this is low yield in the setting of syncope ? She does have a history of seizure disorder. EEG shows rare generalized spike and wave discharges. Diffuse slow activity mild in degree. ? Continue with her antiseizure medications ? Orthostatic vital signs were Positive on 08/01. Currently blood pressure normal 120/59/, 138/81. Patient does not complain of dizziness on walking on supervision of PT. 08/07: No episode of seizure or syncope during hospitalization. Continue her antiseizure medication and follow-up with a neurologist. 2. Left upper extremity numbness and tingling with loss of sensation bilateral thighs down to her feet ? She cannot tell positional changes of her toes on both feet ? MRI of her brain and C-spine indicate demyelinating disease possible MS, these findings were not noted on MRI brain from August so we will consult [facility] neurology for further evaluation ? MRI of thoracic spine as well as lumbar spine is pending for Wednesday ? She was transferred to [facility] in August the results are unremarkable as she was not appearing to have active disease at that time, her cervical and thoracic spine lesions have been stable and likely chronic plaque but she did not have any new disease which appears with change so hopefully workup at this time will give us a better diagnosis ? She does receive vitamin B12 injections and her B12 this admission was 400 ? Could not do a CTA of the head and neck today secondary to multiple IVs infiltrating and could not get enough contrast injection, will plan for PICC line and hopefully repeat CTA Patient had LP and thoracic and lumbar MRI spine today. Patient already had his cervical and brain MRI before. Reports mentioned below. Thoracic spine MRI does not show signal abnormality or enhancing lesion. [facility] neurologist to follow-up tomorrow. CSF tests are sent. Serum test are ordered. 08/04: CSF and serum send out tests are still pending. 08/05: CSF cytology negative for malignant cells. Anti-MOG serum test negative. 08/06: No significant change. Patient requested Depakote to be given before IV Solu-Medrol discussed with the nursing staff. Medications are already ordered. Expect discharge tomorrow after completion of IV Solu-Medrol. 08/07,: TTE within normal limit. As per neurology EEG unremarkable but shows rare generalized spike and wave discharges, diffuse slow activity mild in degree. Midodrine increased was creased to 10 mg 3 times daily. IgG index anti-NMO and other tests are still pending. AQP4 serum, IFA negative. IgG index 0.5. IgG albumin ratio CSF 0.10, within normal limit. Follow blood test result with the neurologist in 2 weeks. 08/03: History of chronic migraine headache: Currently patient having mild migraine headache. Started on Depakote 500 mg IV daily as needed for headache. Patient also on Phenergan and hydroxyzine therefore hydroxyzine discontinued. Compazine added for nausea/vomiting. Solu-Medrol 1 g IV daily for 5 days started as per neurologist recommendation. CSF and serum test still pending. 08/04: Continue IV Solu-Medrol, starting date was 08/03. Patient on prophylactic Depakote and Phenergan. 08/07: Today the last day of her IV Solu-Medrol 1 g. No more further steroid. 3. DM2 ? Had significant hyperglycemia and had an IO placed ? We will monitor blood sugars ? Accu-Cheks ACHS 08/03: Glucose around 253 and expected to go high on IV Solu-Medrol therefore dose of Lantus insulin increased. 08/04 glucose is high about 366, 400. Lantus dose and short-acting insulin dose increased. Patient on high dose of Lantus and Humalog insulin therefore needs watch for hypoglycemia. 08/05: Glucose is better about 152 maximum of 187. Continue same regimen of Lantus and Humalog insulin. 4. HLD ? Continue with her Lipitor 5. Anxiety/depression ? Stable ?Continue with her home medications 6. GERD ? Stable ? Continue with PPI DVT: Lovenox Clinical Impression(s) from Imaging Studies Brain CT 07/29/23 15:37 IMPRESSION: Chronic involutional changes of the brain. No change or acute abnormality. Electronically Signed: Arias Pablo MD at 18:13 EST , Cervical Spine CT 07/29/23 15:37 IMPRESSION: There is no definite acute fracture/dislocation. Degenerative changes. Electronically Signed: Arias Pablo MD at 18:16 EST , Echocardiogram 07/30/23 00:14 Interpretation Summary The estimated ejection fraction is 65 %. Mild concentric left ventricular hypertrophy. Structually normal valves. Compared to prior study, there is no significant change. Ordering Physician: Lj Oreilly Referring Physician: Vi Eng Performed By: Debbie Camilo, CARRIECS, RVT Brain MRI 07/30/23 16:34 IMPRESSION: 1. Several focal areas of white matter signal hyperintensity without contrast enhancement. There is a stable area along the lateral aspect LEFT temporal lobe however it new area of nonenhancing subependymal white matter abnormality in the LEFT parietal lobe. 2. Interval development of a area of white matter hyperintensity with central nodular enhancement along the subependymal region of the RIGHT frontal lobe extending into the RIGHT centrum semiovale 3. Current findings are consistent with a demyelinating processes/MS with an area of acute demyelination in the RIGHT frontal lobe. Follow-up however in approximately 3-4 months is recommended to assure that there is not underlying mass associated involving the area of enhancement. 4. 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 5. No acute territorial infarct,. Cervical Spine MRI 07/30/23 16:34 IMPRESSION: 1. Unchanged disc changes at C5-6 and C6-7. Broad-based disc bulge mass effect complex at both levels greatest at C5-6. No cord compression or donte canal stenosis. 2. Multilevel foraminal stenosis contributed by uncovertebral joint and facet hypertrophic changes without change. 3. No evidence of cord compression or signal abnormality involving the spinal cord and no abnormal intramedullary contrast enhancement. 4. Persistent area of mild volume loss and T2 signal hyperintensity along the floor of the 4th ventricle at the level of the medulla consistent with an area of remote demyelinating plaque. Findings are stable. Brain CT 08/01/23 07:20 IMPRESSION: Age consistent changes, no acute findings. No interval change since 07/29/2023 CT is not sensitive for evaluation of MS. Please refer to the MR brain and C-spine from yesterday for further details of possible MS Electronically Signed: Pako Read MD at 13:13 EST , Lumbar Spine MRI 08/02/23 09:00 IMPRESSION: Very mild degenerative disc disease without significant lumbar spinal canal stenosis. Mild bilateral foraminal narrowing as above. Lumbar Puncture Fluoroscopy 08/02/23 12:45 IMPRESSION: Successful fluoroscopic-guided lumbar puncture. Thoracic Spine MRI 08/02/23 16:34 IMPRESSION: Very mild degenerative disc disease of the lower thoracic spine without significant spinal canal stenosis. No evidence for significant signal abnormality or enhancing lesion in the thoracic spinal cord. Allergies/Procedures Done in Hospital Allergies latex Allergy (Verified 07/29/23 14:25) Rash levofloxacin [From Levaquin] Allergy (Verified 07/29/23 14:25) Hives ondansetron [From Zofran] Allergy (Verified 07/29/23 14:25) Hives nalbuphine [From Nubain] Adverse Reaction (Verified 07/29/23 14:25) Other Type of Care/Length of Stay Estimated LOS: Convalescent Care Less Than 30 days Type of Care Needed: Skilled Rehab Potential: Good Prognosis: Good Additional Orders/Day of Discharge Day of Discharge: 08/07/23 Dietary and Speech Recommendations Dietitian Recommendations/Changes: will adjust diet to CHO controlled (4-5 servings CHO/meal) Discharge Plan Admission Admit Date/Time: 07/31/23 11:50 Primary Reason for Your Visit: Syncope, hypoglycemia, numbness and tingling. Attending Provider: Forrest Pascal Primary Care Provider: Vi Eng Consulting Providers: Luis Fernando Fuller; Monica Lebron; Kristy Ferrer; Navneet Reyna; Mazin Ortiz; KEM BE; Niecy Shah; Rocio Sarmiento; Richard Jackson; Karoline Meyer; Lj Oreilly; Carlo Ahumada; Kim Lomeli; Pao Beckham; Wilfred Brown; Nena Cavazos; Bib Duncan; Quinten Chang; Julius Patton; Willis Jovel; Rajesh Heath; Sedrick Michelle; Naman Adames; Khang Birmingham; Abby Barnes; Lynn Fu; Amos Medina Instructions Patient Instructions: MARTA RN Lumbar Puncture Having Additional Instructions / Restrictions: Patient follows her own neurologist, Dr. Jonathan Noland in [facility]. Advised to follow-up in 2 weeks to go over the results of serum and CSF autoantibodies including IgG index. Discharge Orders/Prescriptions Prescriptions: Continued atorvastatin 80 mg tablet 80 mg PO QHS Patient Comments: TAKE ONE TABLET BY MOUTH DAILY AT 9PM AT BEDTIME [id number]-phvhmkhrsqyfx-ykdp 50-325-40 mg Tablet 1 tab PO Q6H PRN (Reason: Headache) potassium chloride 20 mEq tablet,ER particles/crystals 20 meq PO DAILY Hold Instructions: Order Completed Patient Comments: TAKE ONE TABLET BY MOUTH DAILY AT 9AM fluticasone propionate 50 mcg/actuation spray,suspension 1 spray INTRANASAL DAILY PRN (Reason: Check with primary doctor) Patient Comments: INSTILL 1 SPRAY INTO EACH NOSTRIL ONCE DAILY glucagon 1 mg Kit Hold Instructions: Pt is ill omeprazole 40 mg capsule,delayed release(DR/EC) 40 mg PO DAILY Patient Comments: TAKE ONE CAPSULE BY MOUTH DAILY AT 9AM gabapentin 800 mg tablet 800 mg PO QHS Patient Comments: TAKE ONE TABLET BY MOUTH DAILY AT 9PM AT BEDTIME carbamazepine 200 mg tablet extended release 12 hr 200 mg PO BID docusate sodium 100 mg Capsule 100 mg PO BID diclofenac sodium 75 mg tablet,delayed release (DR/EC) 75 mg PO BID PRN (Reason: pain) Patient Comments: TAKE ONE TABLET BY MOUTH TWICE DAILY NEEDED (VIAL) gabapentin 100 mg Capsule 200 mg PO DAILY albuterol sulfate 90 mcg/actuation HFA aerosol inhaler 90 inh INHALATION Q4H PRN PRN (Reason: Wheezing) Patient Comments: INHALE TWO PUFFS BY MOUTH DIRECTED EVERY 4 HOURS NEEDED FOR WHEEZING OR FOR SHORTNESS OF BREATH (BULK) topiramate 100 mg tablet 200 mg PO BID Patient Comments: TAKE ONE TABLET BY MOUTH THREE TIMES DAILY @9AM-3PM-9PM (DME) [employer] ResearchStyle Es 2 Sensor Kit MISCELLANEOUS Patient Comments: apply 1 SENSOR to back OF UPPER ARM REMOVE AND REPLACE every 14 d... (REFER TO PRESCRIPTION NOTES). (DME) FreeStyle Es 2 Beulah Misc MISCELLANEOUS Patient Comments: USE CONTINUOUSLY TO MONITOR BLOOD SUGARS DAILY (DME) Droplet Insulin Syr(half unit) 0.5 mL 31 gauge x 5/16 syringe MISCELLANEOUS Patient Comments: USE TO INJECT INSULIN UNDER THE SKIN EVERY MEAL AND AT BEDTIME PER SLIDING SCALE ergocalciferol (vitamin D2) 1,250 mcg (50,000 unit) capsule 50,000 unit PO MO Patient Comments: TAKE 1 CAPSULE BY MOUTH EVERY WEDNESDAY AT 9AM (VIAL) Rx Instructions: takes on mondays promethazine 25 mg tablet 25 mg PO Q6H PRN PRN (Reason: Nausea) Qty: 12 0RF insulin glargine 100 unit/mL (3 mL) insulin pen 22 unit SUBCUT QHS Patient Comments: INJECT 22 UNITS SUBCUTANEOUSLY IN THE MORNING and INJECT 15 UNITS AT BEDTIME (BULK) insulin glargine [Lantus U-100 Insulin] 100 unit/mL Solution 16 unit SUBCUT DAILY duloxetine 60 mg capsule,delayed release(DR/EC) 60 mg PO BID Patient Comments: TAKE ONE CAPSULE BY MOUTH TWICE DAILY @ 9AM & 5PM Nuedexta 20-10 mg capsule 1 cap PO BID Ubrelvy 100 mg tablet 100 mg PO .COMPLEX PRN (Reason: MIGRAINE) Rx Instructions: 100 mg orally 1 TABLET. IF NO IMPROVEMENT WITHIN 2 HRS 2 TABS. NOT TO EXCEED 2 TABS IN 24H PRN; furosemide [Lasix] 20 mg tablet 20 mg PO DAILY Ozempic 0.25 mg or 0.5 mg (2 mg/3 mL) pen injector 0.25 mg SUBCUT QWEEK Patient Comments: INJECT 0.25 MG SUBCUTANEOUSLY ONCE A WEEK Rx Instructions: WEDNESDAY tizanidine 4 mg tablet 4 mg PO Q8H PRN (Reason: muscle spasticity) Patient Comments: TAKE ONE TABLET BY MOUTH EVERY 8 HOURS NEEDED (VIAL) midodrine 5 mg tablet 5 mg PO TID Qty: 2 0RF Patient Comments: IF SBP <140 Rx Instructions: do not give last dose of day after 6PM or within 4 hrs of bedtime Hold if SBP more than 110 mmHg Referrals / Follow Up: Vi Eng DO [Primary Care Provider] - Disposition Disposition (needs filled in before D/C Order can be placed): Home, Self Care
--- NOTE | 2023-08-07 10:09 | PCM.DC.SUM ---
Providers Date of Admission: 07/31/23 Date of Discharge: 08/07/23 Primary Care Physician: Dr. Vi Eng, DO Consultations 07/31/23 07:34 Consult: Tele-Neurology Routine Consulting Provider: [facility] Reason for Consult: New findings of possible MS EMERGENT Consult: No MD Notified: Yes Date Notified: 07/31/23 Time Notified: 07:57 Method of Notification: Answering Service Comments:: She was sent to [facility] for [facility] in august 2022 Nursing Unit Staff Notify [facility] of Tele-Neurology Consult: Yes Reason For Visit: SYNCOPE AND HYPOGLYCEMIA Diagnosis Discharge Diagnosis (1) Recurrent syncope: Status: Acute Code(s): R55 - Syncope and collapse Plan 1. Recurrent syncope/seizure disorder ? Unclear as to the etiology, stress test was unremarkable and echo was normal. Will cancel carotid Dopplers as this is low yield in the setting of syncope ? She does have a history of seizure disorder. EEG shows rare generalized spike and wave discharges. Diffuse slow activity mild in degree. ? Continue with her antiseizure medications ? Orthostatic vital signs were Positive on 08/01. Currently blood pressure normal 120/59/, 138/81. Patient does not complain of dizziness on walking on supervision of PT. 08/07: No episode of seizure or syncope during hospitalization. Continue her antiseizure medication and follow-up with a neurologist. 2. Left upper extremity numbness and tingling with loss of sensation bilateral thighs down to her feet ? She cannot tell positional changes of her toes on both feet ? MRI of her brain and C-spine indicate demyelinating disease possible MS, these findings were not noted on MRI brain from August so we will consult [facility] neurology for further evaluation ? MRI of thoracic spine as well as lumbar spine is pending for Wednesday ? She was transferred to [facility] in August the results are unremarkable as she was not appearing to have active disease at that time, her cervical and thoracic spine lesions have been stable and likely chronic plaque but she did not have any new disease which appears with change so hopefully workup at this time will give us a better diagnosis ? She does receive vitamin B12 injections and her B12 this admission was 400 ? Could not do a CTA of the head and neck today secondary to multiple IVs infiltrating and could not get enough contrast injection, will plan for PICC line and hopefully repeat CTA Patient had LP and thoracic and lumbar MRI spine today. Patient already had his cervical and brain MRI before. Reports mentioned below. Thoracic spine MRI does not show signal abnormality or enhancing lesion. [facility] neurologist to follow-up tomorrow. CSF tests are sent. Serum test are ordered. 08/04: CSF and serum send out tests are still pending. 08/05: CSF cytology negative for malignant cells. Anti-MOG serum test negative. 08/06: No significant change. Patient requested Depakote to be given before IV Solu-Medrol discussed with the nursing staff. Medications are already ordered. Expect discharge tomorrow after completion of IV Solu-Medrol. 08/07: TTE within normal limit. As per neurology EEG unremarkable but shows rare generalized spike and wave discharges, diffuse slow activity mild in degree. Midodrine decreased to 5 mg 3 times daily, patient's home dose as patient blood pressure is high 149/78. AQP4 serum, IFA negative. IgG index 0.5. IgG albumin ratio CSF 0.10, within normal limit. Follow blood test result with the neurologist in [address] Jonathan Noland, [facility]. Medical record will be faxed. Patient completing 5 days of IV Solu-Medrol today and being discharged today to retirement. 08/03: History of chronic migraine headache: Currently patient having mild migraine headache. Started on Depakote 500 mg IV daily as needed for headache. Patient also on Phenergan and hydroxyzine therefore hydroxyzine discontinued. Compazine added for nausea/vomiting. Solu-Medrol 1 g IV daily for 5 days started as per neurologist recommendation. CSF and serum test still pending. 08/04: Continue IV Solu-Medrol, starting date was 08/03. Patient on prophylactic Depakote and Phenergan. 08/07: Today the last day of her IV Solu-Medrol 1 g. No more further steroid. 3. DM2 ? Had significant hyperglycemia and had an IO placed ? We will monitor blood sugars ? Accu-Cheks ACHS 08/03: Glucose around 253 and expected to go high on IV Solu-Medrol therefore dose of Lantus insulin increased. 08/04 glucose is high about 366, 400. Lantus dose and short-acting insulin dose increased. Patient on high dose of Lantus and Humalog insulin therefore needs watch for hypoglycemia. 08/05: Glucose is better about 152 maximum of 187. Continue same regimen of Lantus and Humalog insulin. 4. HLD ? Continue with her Lipitor 5. Anxiety/depression ? Stable ?Continue with her home medications 6. GERD ? Stable ? Continue with PPI DVT: Lovenox Discharge medication reconciliation done. Discharge follow-up instructions completed. Discharge process discussed with the patient and all questions were answered to patient's satisfaction. Follow with PCP in 1 to 2 weeks Total time spent, exact 35 minutes on discharge meds reconciliation, examination, coordination of care with nurses and ancillary staff, review of imaging and blood test and discussion with the patient on follow-up instructions. Clinical Impression(s) from Imaging Studies Brain CT 07/29/23 15:37 IMPRESSION: Chronic involutional changes of the brain. No change or acute abnormality. Electronically Signed: Arias Pablo MD at 18:13 EST , Cervical Spine CT 07/29/23 15:37 IMPRESSION: There is no definite acute fracture/dislocation. Degenerative changes. Electronically Signed: Arias Pablo MD at 18:16 EST , Echocardiogram 07/30/23 00:14 Interpretation Summary The estimated ejection fraction is 65 %. Mild concentric left ventricular hypertrophy. Structually normal valves. Compared to prior study, there is no significant change. Ordering Physician: Lj Oreilly Referring Physician: Vi Eng Performed By: Debbie Camilo, CARRIECS, RVT Brain MRI 07/30/23 16:34 IMPRESSION: 1. Several focal areas of white matter signal hyperintensity without contrast enhancement. There is a stable area along the lateral aspect LEFT temporal lobe however it new area of nonenhancing subependymal white matter abnormality in the LEFT parietal lobe. 2. Interval development of a area of white matter hyperintensity with central nodular enhancement along the subependymal region of the RIGHT frontal lobe extending into the RIGHT centrum semiovale 3. Current findings are consistent with a demyelinating processes/MS with an area of acute demyelination in the RIGHT frontal lobe. Follow-up however in approximately 3-4 months is recommended to assure that there is not underlying mass associated involving the area of enhancement. 4. 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 5. No acute territorial infarct,. Cervical Spine MRI 07/30/23 16:34 IMPRESSION: 1. Unchanged disc changes at C5-6 and C6-7. Broad-based disc bulge mass effect complex at both levels greatest at C5-6. No cord compression or donte canal stenosis. 2. Multilevel foraminal stenosis contributed by uncovertebral joint and facet hypertrophic changes without change. 3. No evidence of cord compression or signal abnormality involving the spinal cord and no abnormal intramedullary contrast enhancement. 4. Persistent area of mild volume loss and T2 signal hyperintensity along the floor of the 4th ventricle at the level of the medulla consistent with an area of remote demyelinating plaque. Findings are stable. Brain CT 08/01/23 07:20 IMPRESSION: Age consistent changes, no acute findings. No interval change since 07/29/2023 CT is not sensitive for evaluation of MS. Please refer to the MR brain and C-spine from yesterday for further details of possible MS Electronically Signed: Pako Read MD at 13:13 EST , Lumbar Spine MRI 08/02/23 09:00 IMPRESSION: Very mild degenerative disc disease without significant lumbar spinal canal stenosis. Mild bilateral foraminal narrowing as above. Lumbar Puncture Fluoroscopy 08/02/23 12:45 IMPRESSION: Successful fluoroscopic-guided lumbar puncture. Thoracic Spine MRI 01/22/24 16:34 IMPRESSION: Very mild degenerative disc disease of the lower thoracic spine without significant spinal canal stenosis. No evidence for significant signal abnormality or enhancing lesion in the thoracic spinal cord. Medications at Discharge Home Medications albuterol sulfate 90 mcg/actuation aerosol inhaler 90 inh inhalation Q4H PRN PRN Wheezing 09/03/22 atorvastatin 80 mg tablet 80 mg PO QHS 09/03/22 kvxefpfmno-jqtyxizfpexgr-ybfyhhea 50 mg-325 mg-40 mg tablet 1 tab PO Q6H PRN Headache 09/03/22 carbamazepine 200 mg tablet,extended release,12 hr 200 mg PO BID 09/03/22 diclofenac sodium 75 mg tablet,delayed release 75 mg PO BID PRN pain 09/03/22 docusate sodium 100 mg capsule 100 mg PO BID CONSTIPATION 09/03/22 ergocalciferol (vitamin D2) 1,250 mcg (50,000 unit) capsule 50,000 unit PO MO Check with primary doctor 09/03/22 flash glucose scanning reader ([employer] SolutionsStyle Es 2 [place]) 09/03/22 flash glucose sensor (FreeStyle Es 2 Sensor kit) 09/03/22 fluticasone propionate 50 mcg/actuation nasal spray,suspension 1 spray intranasal DAILY PRN Check with primary doctor 09/03/22 gabapentin 100 mg capsule 200 mg PO DAILY 09/03/22 gabapentin 800 mg tablet 800 mg PO QHS 09/03/22 glucagon 1 mg injection kit mg Check with primary doctor 09/03/22 insulin syr/ndl U100 half shirley 0.5 mL 31 gauge x 5/16 (Droplet Insulin Syringe (half unit)) 09/03/22 omeprazole 40 mg capsule,delayed release 40 mg PO DAILY 09/03/22 potassium chloride 20 mEq tablet,extended release(part/cryst) 20 meq PO DAILY 09/03/22 topiramate 100 mg tablet 200 mg PO BID 09/03/22 promethazine 25 mg tablet 25 mg PO Q6H PRN PRN Nausea #12 TABLETS 11/08/22 dextromethorphan 20 mg-quinidine 10 mg capsule (Nuedexta) 1 cap PO BID DEPRESSION 02/06/23 ubrogepant 100 mg tablet (Ubrelvy) 100 mg PO .COMPLEX PRN MIGRAINE 02/06/23 duloxetine 60 mg capsule,delayed release 60 mg PO BID 05/31/23 insulin glargine 100 unit/mL (3 mL) subcutaneous pen 22 unit subcut QHS 05/31/23 insulin glargine 100 unit/mL subcutaneous solution (Lantus U-100 Insulin) 16 unit subcut DAILY Check with primary doctor 05/31/23 furosemide 20 mg tablet (Lasix) 20 mg PO DAILY 07/29/23 semaglutide 0.25 mg or 0.5 mg (2 mg/3 mL) subcutaneous pen injector (Ozempic) 0.25 mg subcut QWEEK 07/29/23 tizanidine 4 mg tablet 4 mg PO Q8H PRN muscle spasticity 07/29/23 midodrine 5 mg tablet 5 mg PO TID HYPOTENSION #2 tabs 08/07/23 Physical Exam Narrative Seen and examined. Patient completing fifth a day of IV Solu-Medrol. No significant headache but on prophylactic Phenergan and Depakote for history of chronic migraine headache. Patient subacute/chronic numbness and tingling on her left upper extremity more than the right. No fever. Physical exam General: Alert, Oriented x3, Cooperative HEENT: Atraumatic, PERRLA, EOMI, Normocephalic Oral: Oral mucosa moist. No Gingival or Mucosal Lesions/ Ulcerations Neck: Supple, No JVD, Negative Carotid Bruits Lungs: Air entry diminished in bilateral lung bases. No crepitation/rhonchi Cardiovascular: Regular rate, Regular Rhythm, Normal S1, Normal S2, No murmurs Abdomen: Bowel Sounds Present, Soft, Non Tender, Non-Distended : No dysuria. No renal angle tenderness. No suprapubic tenderness. Extremities: No edema, Capillary Refill Less than 3 Seconds Skin: No rashes, No breakdown Musculoskeletal: No Tenderness to Palpation of Joints or Extremities. ROM intact. Neurological: Cranial nerves II-XII grossly intact, DTR 2+/4. No touch or pressure sensation below mid thigh bilateral lower extremities. No position sense of great toes. Psych/Mental Status: Flat affect. Weight / BMI Weight Weight: 210 lb Body Mass Index (BMI) 33.9 ABG / Lab / Microbiology Data 08/02/23 06:05 08/02/23 06:05 Laboratory: Laboratory Results - last 24 hr 08/02/23 13:30: Miscellaneous Test 08/06/23 11:25: POC Glucose 230 H 08/06/23 16:24: POC Glucose 303 H 08/06/23 21:42: POC Glucose 274 H 08/07/23 08:31: POC Glucose 121 H Microbiology: Microbiology 07/29/23 15:27 Urine, Catheterized Urine Culture - Final Presumptive E. coli 07/29/23 16:15 Mucosa - Nose SARS-CoV-2, Influenza & RSV (PCR) - Final Meaningful Use Info Meaningful Use Diagnoses (Choose all that apply): None applicable Discharge Plan Admission Admit Date/Time: 07/31/23 11:50 Primary Reason for Your Visit: Syncope, hypoglycemia, numbness and tingling. Attending Provider: Forrest Pascal Primary Care Provider: Vi Eng Consulting Providers: Luis Fernando Fuller; Monica Lebron; Kristy Ferrer; Navneet Reyna; Mazin Ortiz; KEM BE; Niecy Shah; Rocio Sarmiento; Richard Jackson; Karoline Meyer; Lj Oreilly; Carlo Ahumada; Kim Lomeli; Pao Beckham; Wilfred Brown; Nena Cavazos; Bib Duncan; Quinten Chang; Julius Patton; Willis Jovel; Rajesh Heath; Sedrick Michelle; Naman Adames; Khang Birmingham; Abby Barnes; Lynn Fu; Amos Medina Instructions Patient Instructions: RAD RN Lumbar Puncture Having Additional Instructions / Restrictions: Patient follows her own neurologist, Dr. Jonathan Noland in [facility]. Advised to follow-up in 2 weeks to go over the results of serum and CSF autoantibodies including IgG index. Discharge Orders/Prescriptions Prescriptions: Continued atorvastatin 80 mg tablet 80 mg PO QHS Patient Comments: TAKE ONE TABLET BY MOUTH DAILY AT 9PM AT BEDTIME uvharrioav-jebieczexhcwz-sfty 50-325-40 mg Tablet 1 tab PO Q6H PRN (Reason: Headache) potassium chloride 20 mEq tablet,ER particles/crystals 20 meq PO DAILY Hold Instructions: Order Completed Patient Comments: TAKE ONE TABLET BY MOUTH DAILY AT 9AM fluticasone propionate 50 mcg/actuation spray,suspension 1 spray INTRANASAL DAILY PRN (Reason: Check with primary doctor) Patient Comments: INSTILL 1 SPRAY INTO EACH NOSTRIL ONCE DAILY glucagon 1 mg Kit Hold Instructions: Pt is ill omeprazole 40 mg capsule,delayed release(DR/EC) 40 mg PO DAILY Patient Comments: TAKE ONE CAPSULE BY MOUTH DAILY AT 9AM gabapentin 800 mg tablet 800 mg PO QHS Patient Comments: TAKE ONE TABLET BY MOUTH DAILY AT 9PM AT BEDTIME carbamazepine 200 mg tablet extended release 12 hr 200 mg PO BID docusate sodium 100 mg Capsule 100 mg PO BID diclofenac sodium 75 mg tablet,delayed release (DR/EC) 75 mg PO BID PRN (Reason: pain) Patient Comments: TAKE ONE TABLET BY MOUTH TWICE DAILY NEEDED (VIAL) gabapentin 100 mg Capsule 200 mg PO DAILY albuterol sulfate 90 mcg/actuation HFA aerosol inhaler 90 inh INHALATION Q4H PRN PRN (Reason: Wheezing) Patient Comments: INHALE TWO PUFFS BY MOUTH DIRECTED EVERY 4 HOURS NEEDED FOR WHEEZING OR FOR SHORTNESS OF BREATH (BULK) topiramate 100 mg tablet 200 mg PO BID Patient Comments: TAKE ONE TABLET BY MOUTH THREE TIMES DAILY @9AM-3PM-9PM (DME) FreeStyle Es 2 Sensor Kit MISCELLANEOUS Patient Comments: apply 1 SENSOR to back OF UPPER ARM REMOVE AND REPLACE every 14 d... (REFER TO PRESCRIPTION NOTES). (DME) FreeStyle Es 2 [place] Misc MISCELLANEOUS Patient Comments: USE CONTINUOUSLY TO MONITOR BLOOD SUGARS DAILY (DME) Droplet Insulin Syr(half unit) 0.5 mL 31 gauge x 5/16 syringe MISCELLANEOUS Patient Comments: USE TO INJECT INSULIN UNDER THE SKIN EVERY MEAL AND AT BEDTIME PER SLIDING SCALE ergocalciferol (vitamin D2) 1,250 mcg (50,000 unit) capsule 50,000 unit PO MO Patient Comments: TAKE 1 CAPSULE BY MOUTH EVERY WEDNESDAY AT 9AM (VIAL) Rx Instructions: takes on mondays promethazine 25 mg tablet 25 mg PO Q6H PRN PRN (Reason: Nausea) Qty: 12 0RF insulin glargine 100 unit/mL (3 mL) insulin pen 22 unit SUBCUT QHS Patient Comments: INJECT 22 UNITS SUBCUTANEOUSLY IN THE MORNING and INJECT 15 UNITS AT BEDTIME (BULK) insulin glargine [Lantus U-100 Insulin] 100 unit/mL Solution 16 unit SUBCUT DAILY duloxetine 60 mg capsule,delayed release(DR/EC) 60 mg PO BID Patient Comments: TAKE ONE CAPSULE BY MOUTH TWICE DAILY @ 9AM & 5PM Nuedexta 20-10 mg capsule 1 cap PO BID Ubrelvy 100 mg tablet 100 mg PO .COMPLEX PRN (Reason: MIGRAINE) Rx Instructions: 100 mg orally 1 TABLET. IF NO IMPROVEMENT WITHIN 2 HRS 2 TABS. NOT TO EXCEED 2 TABS IN 24H PRN; furosemide [Lasix] 20 mg tablet 20 mg PO DAILY Ozempic 0.25 mg or 0.5 mg (2 mg/3 mL) pen injector 0.25 mg SUBCUT QWEEK Patient Comments: INJECT 0.25 MG SUBCUTANEOUSLY ONCE A WEEK Rx Instructions: WEDNESDAY tizanidine 4 mg tablet 4 mg PO Q8H PRN (Reason: muscle spasticity) Patient Comments: TAKE ONE TABLET BY MOUTH EVERY 8 HOURS NEEDED (VIAL) midodrine 5 mg tablet 5 mg PO TID Qty: 2 0RF Patient Comments: IF SBP <140 Rx Instructions: do not give last dose of day after 6PM or within 4 hrs of bedtime Hold if SBP more than 110 mmHg Referrals / Follow Up: Vi Eng DO [Primary Care Provider] - Disposition Disposition (needs filled in before D/C Order can be placed): Home, Self Care Charges/Coding Visit Charges Inpatient E&M: 01095 Disch Hosp >30min
[2023-08-07] MEDS: Insulin Glargine-YFGN 100 UNIT/ML Pen 30 UNIT SC (10:27)
[2023-08-07] MEDS: Pantoprazole Sodium 40 MG Tablet PO (10:28)
[2023-08-07] MEDS: MethylPREDNISolone 1,000 MG in 0.9% Normal Saline (100mL Bag) 100 ML 100 MG IV (10:28)
[2023-08-07] MEDS: Enoxaparin 40 MG/0.4 ML Syringe SC (10:28)
[2023-08-07] MEDS: carBAMazepine 200 MG Tablet PO (10:28)
[2023-08-07] MEDS: Topiramate 100 MG Tablet 200 MG PO (10:29)
[2023-08-07] MEDS: Docusate Sodium 100 MG Capsule PO (10:32)
[2023-08-07] MEDS: DULoxetine Hcl 60 MG Capsule PO (10:32)
[2023-08-07 10:55] LABS: Bedside Glucose 211 mg/dL (74-106)
[2023-08-07] MEDS: Insulin Lispro 100 UNIT/ML INSULN.PEN SC (12:13)
[2023-08-07] MEDS: Insulin Lispro 100 UNIT/ML INSULN.PEN 15 UNIT SC (12:14)
[2023-08-07 12:54] LABS: Bedside Glucose 214 mg/dL (74-106)
[2023-08-07 14:09] VITALS: BP 149/78; PULSE 65; RESP 16; TEMP 36.1; O2SAT 98
--- NOTE | 2023-08-07 14:27 | NURSING ---
1427 Report called to Sharon @ [facility], pt will be in the [address]
== END 2023-08-07 15:09 | disposition skilled nursing facility (03) | DRG 312 ==
LOC: ED 15:15 → PCU 23:06
PROVIDERS: Family Medicine; Admitting Provider Internal Medicine; Emergency Provider Emergency Medicine; PCP Family Medicine; Visit Provider Internal Medicine
DX: I95.1 Orthostatic hypotension (principal); E11.649 Type 2 diabetes mellitus with hypoglycemia without coma; E11.40 Type 2 diabetes mellitus with diabetic neuropathy, unspecified; G40.909 Epilepsy, unspecified, not intractable, without status epilepticus; G35 Multiple sclerosis; J44.9 Chronic obstructive pulmonary disease, unspecified; Z79.4 Long term (current) use of insulin; E11.65 Type 2 diabetes mellitus with hyperglycemia; I10 Essential (primary) hypertension; F32.A Depression, unspecified; K21.9 Gastro-esophageal reflux disease without esophagitis; E78.00 Pure hypercholesterolemia, unspecified; G43.709 Chronic migraine without aura, not intractable, without status migrainosus; F41.9 Anxiety disorder, unspecified; E66.9 Obesity, unspecified; R29.6 Repeated falls; Z68.35 Body mass index [BMI] 35.0-35.9, adult; Z79.1 Long term (current) use of non-steroidal anti-inflammatories (NSAID); Z79.2 Long term (current) use of antibiotics; Z79.85 Long-term (current) use of injectable non-insulin antidiabetic drugs; Z79.899 Other long term (current) drug therapy; Z86.16 Personal history of COVID-19; Z86.73 Personal history of transient ischemic attack (TIA), and cerebral infarction without residual deficits; Z87.891 Personal history of nicotine dependence
CPT/HCPCS: 36415; 36569; 51702; 62328; 70450; 70553; 72125; 72156; 72157; 72158; 78452; 80048; 80053; 81001; 82607; 82945; 82962; 83036; 83605; 83873; 83916; 84157; 84484; 85025; 87086; 87088; 87186; 87631; 87798; 88108; 88313; 89050; 89051; 93005; 93017; 93306; 95819; 97110; 97116; 97162; 97166; 97530; 97535; 99284; 99406; A9500; A9575; J7030; J7040; J7050; A4216; J2785; J2930

== ENCOUNTER 2023-09-04 11:15 | Observation (INO) | payer MEDICARE, SELFPAY ==
[2023-09-04 11:16] VITALS: BP 108/69; PULSE 61; RESP 14; TEMP 36.6; O2SAT 99; BMI 34.8
--- NOTE | 2023-09-04 11:34 | EDS_ITS ---
HPI <CLEMENTE Bowers - Last Filed: 09/04/23 13:26> History of Present Illness Chief Complaint: Fall Narrative Narrative: 58-year-old female with PMH of seizures, multiple falls states she fell twice yesterday and once today and after hitting her life alert again EMS recommended she come in due to multiple lift assists. She uses a walker. She lives at home with her sister and [id number]. She does not know why she falls. She does not trip. She does not felt dizzy or weak. Yesterday she struck her head on the tile floor and states she lost consciousness. She has a headache, does not take blood thinners. She has no other injuries from the falls. She has otherwise been in good health recently and denies fever, chest pain or shortness of breath. She is on Topamax and Tegretol for seizures and has not had any this week. PFSH <CLEMENTE Bowers - Last Filed: 09/04/23 13:26> [facility] Medical History Allergic rhinitis Anxiety Brain TIA Chronic migraine COPD (chronic obstructive pulmonary disease) Depression Diabetes mellitus, type 2 Former smoker Former tobacco use GERD (gastroesophageal reflux disease) History of CVA (cerebrovascular accident) HTN (hypertension) Hypercholesterolemia Migraines Obesity Orthostasis Psoriasis Seizure disorder Transient hypotension Home Medications albuterol sulfate 90 mcg/actuation aerosol inhaler 90 inh inhalation Q4H PRN PRN Wheezing 09/03/22 [History Last Taken 09/04/23] atorvastatin 80 mg tablet 80 mg PO QHS . 09/03/22 [History Last Taken 09/03/23] etqgengtiy-jhpiquzselrdd-lovwpbnd 50 mg-325 mg-40 mg tablet 1 tab PO Q6H PRN Headache 09/03/22 [History Last Taken 09/04/23] carbamazepine 200 mg tablet,extended release,12 hr 200 mg PO BID SEIZURE 09/03/22 [History Last Taken 09/04/23] diclofenac sodium 75 mg tablet,delayed release 75 mg PO BID PRN pain 09/03/22 [History Last Taken 09/04/23] docusate sodium 100 mg capsule 100 mg PO BID CONSTIPATION 09/03/22 [History Last Taken 09/03/23] ergocalciferol (vitamin D2) 1,250 mcg (50,000 unit) capsule 50,000 unit PO MO Check with primary doctor 09/03/22 [History Last Taken 08/30/23] flash glucose scanning reader (FreeStyle Es 2 [place]) 09/03/22 [History Last Taken Unknown] flash glucose sensor (FreeStyle Es 2 Sensor kit) 09/03/22 [History Last Taken Unknown] gabapentin 100 mg capsule 200 mg PO BID . 09/03/22 [History Last Taken 09/04/23] gabapentin 800 mg tablet 800 mg PO QHS PAIN 09/03/22 [History Last Taken 09/03/23] glucagon 1 mg injection kit mg Check with primary doctor 09/03/22 [History Last Taken Unknown] insulin syr/ndl U100 half shirley 0.5 mL 31 gauge x 5/16 (Droplet Insulin Syringe (half unit)) 09/03/22 [History Last Taken Unknown] omeprazole 40 mg capsule,delayed release 40 mg PO DAILY GERD 09/03/22 [History Last Taken 09/04/23] promethazine 25 mg tablet 25 mg PO Q6H PRN PRN Nausea #12 TABLETS 11/08/22 [Rx Last Taken 09/04/23] dextromethorphan 20 mg-quinidine 10 mg capsule (Nuedexta) 1 cap PO BID DEPRESSION 02/06/23 [History Last Taken 09/04/23] ubrogepant 100 mg tablet (Ubrelvy) 100 mg PO .COMPLEX PRN MIGRAINE 02/06/23 [History Last Taken 09/04/23] duloxetine 60 mg capsule,delayed release 60 mg PO BID . 05/31/23 [History Last Taken 09/04/23] insulin glargine 100 unit/mL (3 mL) subcutaneous pen 24 unit subcut QHS DM 05/31/23 [History Last Taken 09/03/23] furosemide 20 mg tablet (Lasix) 40 mg PO DAILY EDEMA 07/29/23 [History Last Taken 09/04/23] semaglutide 0.25 mg or 0.5 mg (2 mg/3 mL) subcutaneous pen injector (Ozempic) 0.25 mg subcut QWEEK . 07/29/23 [History Last Taken 09/01/23] tizanidine 4 mg tablet 4 mg PO Q8H PRN muscle spasticity 07/29/23 [History Last Taken 09/04/23] galcanezumab-gnlm 120 mg/mL subcutaneous pen injector (Emgality Pen) 120 mg subcut .COMPLEX . 09/04/23 [History Last Taken 08/05/23] insulin lispro 100 unit/mL subcutaneous solution 1 sliding scale dose subcut . COMPLEX DM 09/04/23 [History Last Taken 09/04/23] meclizine 25 mg tablet 25 mg PO DAILY . 09/04/23 [History Last Taken 09/04/23] midodrine 10 mg tablet 10 mg PO TID . 09/04/23 [History Last Taken 09/04/23] nystatin 100,000 unit/gram topical powder (Nyamyc) 1 applic topical BID RASH 09/04/23 [History Last Taken 09/04/23] potassium chloride 10 mEq tablet,extended release 10 meq PO DAILY SUPPLEMENT 0 09/04/23 [History Last Taken 09/04/23] topiramate 200 mg tablet 200 mg PO Q12H , 09/04/23 [History Last Taken 09/04/23] vitamin B complex 1 tab PO BID SUPPLEMENT 09/04/23 [History Last Taken 09/04/23] Allergy/AdvReac Type Severity Reaction Status Date / Time latex Allergy Rash Verified 09/04/23 11:21 levofloxacin [From Levaquin] Allergy Hives Verified 09/04/23 11:21 ondansetron [From Zofran] Allergy Hives Verified 09/04/23 11:21 nalbuphine [From Nubain] AdvReac Other Verified 09/04/23 11:21 Family History Father Cancer Mother Cancer Surgical History Hx of cholecystectomy Hx of tonsillectomy Hx of tubal ligation Social History (Updated 09/04/23 @ 14:33 by Jenny Pang) household members: family and none housing: house Smoking Status: Former smoker alcohol intake: never substance use type: does not use ROS <CLEMENTE Bowers - Last Filed: 09/04/23 13:26> ROS ED ROS Narrative Constitutional: Negative for fever, chills, malaise. CVS: Negative for palpitations, chest pain. Respiratory: Negative for shortness of breath, cough. GI: Negative for abdominal pain, nausea, vomiting, melena, hematochezia. : Negative for dysuria. EXAM <CLEMENTE Bowers - Last Filed: 09/04/23 13:26> Physical Exam Narrative Exam Narrative: CONST: Patient sitting in no acute distress. EYES: Normal inspection. PERRL, EOMI. ENT: Head normocephalic atraumatic, no raccoon eyes or roberts sign, no hemotympanum, no nasal septal hematoma, no CSF otorrhea or rhinorrhea. Normal inspection of neck, no midline tenderness. RESP: No respiratory distress, CTAB. CVS: Regular rate and rhythm, no murmur, no gallop. ABD: Soft and nontender, no guarding or rebound, nondistended. SKIN: Color normal, no rash, warm, dry, intact. EXTREMITIES: Normal appearance, no pedal edema. NEURO: Oriented x4. PSYCH: Normal affect. Const Vital Signs: 09/04/23 11:16 09/04/23 11:22 Temperature 98 F Temperature Source Temporal Pulse Rate 61 Respiratory Rate 14 Respiratory Effort Normal Non-Labored Respiratory Depth Normal Respiratory Pattern Normal Blood Pressure 108/69 Blood Pressure Mean 82 Pulse Ox 99 Oxygen Delivery Method Room Air Room Air <Dr. Yaakov Davalos MD - Last Filed: 09/04/23 12:34> Physical Exam Const Vital Signs: 09/04/23 11:16 09/04/23 11:22 Temperature 98 F Temperature Source Temporal Pulse Rate 61 Respiratory Rate 14 Respiratory Effort Normal Non-Labored Respiratory Depth Normal Respiratory Pattern Normal Blood Pressure 108/69 Blood Pressure Mean 82 Pulse Ox 99 Oxygen Delivery Method Room Air Room Air MDM <CLEMENTE Boewrs - Last Filed: 09/04/23 13:26> [facility] Narrative Medical decision making narrative: History gathered from: Patient, EMS Patient has had increasing recurrent falls. She has history of some type of demyelinating disease. She appears well and nontoxic and is afebrile with normal vital signs. She has no injuries and is neurologically intact. Screening labs only remarkable for mildly elevated creatinine at 1.22 which was treated with a 500 cc bolus. UA negative for infection. After fluids patient could not stand and ambulate even with her walker and felt too weak. She will require admission. Case will be discussed with the hospitalist. I have personally performed a face to face assessment of the patient and have reviewed the FLYNN Note. I performed a substantive portion of the visit including all aspects of the following. My sexton findings include: History is [58-year-old female with a neurodegenerative disorder but they are still trying to make a specific diagnosis for her. Lives with her sister and [id number]. She has had increasing falls at home recently. Denies any recent illness. Denies any LOC. She is currently on no blood thinners. She does have a history of seizure disorder and is on Tegretol.] Exam is [well-appearing 58-year-old female. Vital signs are stable afebrile. Pulse ox 99% on room air no hypoxia. No distress. H EENT exam unremarkable atraumatic. Pupils round react to light. Neck nontender. Lungs clear. Heart regular rhythm no murmur rate about 60. Chest wall and ribs nontender. Abdomen soft nontender. Pelvic girdle intact. 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 Normal flexion extension upper and lower extremities. No deformity. Back nontender. Neurologically she is awake and alert. Answering questions and following commands.] Medical Decision Making [58-year-old frequent falls at home. Has had recent head imaging. Currently has no signs of head trauma.] Other additions or changes: [None] Lab Data Labs: Laboratory Results - last 24 hr 09/04/23 09/04/23 11:30 12:20 WBC 8.9 RBC 3.77 L Hgb 11.7 L Hct 36.4 L MCV 96.6 MCH 31.0 MCHC 32.1 RDW Std Deviation 45.5 H RDW Coeff of He 13.0 Plt Count 254 MPV 10.6 Immature Gran % (Auto) 0.300 Neut % (Auto) 72.4 H Lymph % (Auto) 22.0 [place] % (Auto) 3.7 Eos % (Auto) 1.4 Baso % (Auto) 0.2 Absolute Neuts (auto) 6.4 Absolute Lymphs (auto) 1.95 Nucleated RBC % 0 Sodium 140 Potassium 4.0 Chloride 112 H Carbon Dioxide 23.0 Anion Gap 5 BUN 38 H Creatinine 1.22 H Estim Creat Clear Calc 60.03 Est GFR (MDRD) Af Amer 58 L Est GFR (MDRD) Non-Af 48 L BUN/Creatinine Ratio 31.1 H Glucose 244 H Calcium 8.8 Urine Color Yellow Urine Clarity Clear Urine pH 6.0 Ur Specific [place] 1.020 Urine Protein Negative Urine Glucose (UA) Normal Urine Ketones Negative Urine Occult Blood Negative Urine Nitrite Negative Urine Bilirubin Negative Urine Urobilinogen Normal Ur Leukocyte Esterase 25 H Urine RBC 0 SEEN Urine WBC 0-5 SEEN Ur Squamous Epith Cells 0-5 SEEN Urine Bacteria 1+ Urine Mucus 0 SEEN Carbamazepine 8.1 <Dr. Yaakov Davalos MD - Last Filed: 09/04/23 12:34> MDM MDM Narrative Medical decision making narrative: MRI brain on 07/30/2023 shows demyelinating process/MS and right frontal lobe. I have personally performed a face to face assessment of the patient and have reviewed the FLYNN Note. I performed a substantive portion of the visit including all aspects of the following. My sexton findings include: History is [58-year-old female with a neurodegenerative disorder but they are still trying to make a specific diagnosis for her. Lives with her sister and [id number]. She has had increasing falls at home recently. Denies any recent illness. Denies any LOC. She is currently on no blood thinners. She does have a history of seizure disorder and is on Tegretol.] Exam is [well-appearing 58-year-old female. Vital signs are stable afebrile. Pulse ox 99% on room air no hypoxia. No distress. H EENT exam unremarkable atraumatic. Pupils round react to light. Neck nontender. Lungs clear. Heart regular rhythm no murmur rate about 60. Chest wall and ribs nontender. Abdomen soft nontender. Pelvic girdle intact. 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 Normal flexion extension upper and lower extremities. No deformity. Back nontender. Neurologically she is awake and alert. Answering questions and following commands.] Medical Decision Making [58-year-old frequent falls at home. Has had recent head imaging. Currently has no signs of head trauma.] Other additions or changes: [None] History & Record Review Discussion w/independent historian: Patient Additional record(s) reviewed:: Prior inpatient record, Prior outpatient record, Prior ED visit, Prior labs and No prior records Lab Data Attestation: I reviewed the patient's lab results. Lab results narrative: CBC shows a white count 8. H&H 11.7 and 36 which is her baseline anemia. Platelets 254. Electrolytes show a gap of 5 BUN and creatinine are 38 and 1.2 which she has had before. Glucose of 244 she is diabetic. Tegretol levels in the normal range at 8.1. Labs: Laboratory Results - last 24 hr 09/04/23 09/04/23 11:30 12:20 WBC 8.9 RBC 3.77 L Hgb 11.7 L Hct 36.4 L MCV 96.6 MCH 31.0 MCHC 32.1 RDW Std Deviation 45.5 H RDW Coeff of He 13.0 Plt Count 254 MPV 10.6 Immature Gran % (Auto) 0.300 Neut % (Auto) 72.4 H Lymph % (Auto) 22.0 [place] % (Auto) 3.7 Eos % (Auto) 1.4 Baso % (Auto) 0.2 Absolute Neuts (auto) 6.4 Absolute Lymphs (auto) 1.95 Nucleated RBC % 0 Sodium 140 Potassium 4.0 Chloride 112 H Carbon Dioxide 23.0 Anion Gap 5 BUN 38 H Creatinine 1.22 H Estim Creat Clear Calc 60.03 Est GFR (MDRD) Af Amer 58 L Est GFR (MDRD) Non-Af 48 L BUN/Creatinine Ratio 31.1 H Glucose 244 H Calcium 8.8 Urine Color Yellow Urine Clarity Clear Urine pH 6.0 Ur Specific [place] 1.020 Urine Protein Negative Urine Glucose (UA) Normal Urine Ketones Negative Urine Occult Blood Negative Urine Nitrite Negative Urine Bilirubin Negative Urine Urobilinogen Normal Ur Leukocyte Esterase 25 H Urine RBC 0 SEEN Urine WBC 0-5 SEEN Ur Squamous Epith Cells 0-5 SEEN Urine Bacteria 1+ Urine Mucus 0 SEEN Carbamazepine 8.1 Discharge Plan Dx/Rx/DC Orders Clinical Impression: Recurrent falls, Generalized weakness Attending Provider: Sugar Lomax Disposition Disposition: Acute Care Hospital [facility] Discharge Date/Time: 09/04/23 14:05
[2023-09-04 11:52] LABS: Absolute Lymphocyte Count 1.95 X10^3/uL (0.83-4.51); Absolute Neutrophil Count 6.4 X10^3/uL (2.0-7.7); Basophil# 0.02 X10^3/uL; Basophil% 0.2 % (0-1); Eosinophil# 0.12 X10^3/uL; Eosinophils% 1.4 % (0-5); Hematocrit 36.4 % (37-47); Hemoglobin 11.7 g/dL (12.0-15.0); Lymphocyte # 1.95 X10^3/ul (0.83-4.51); Mean Corp Hgb Conc 32.1 g/dL (32-36); Mean Corpuscular Volume 96.6 fL (81-99); Mean Platelet Vol. 10.6 fl (6.2-12.0); Monocyte# 0.33 X10^3/uL; Monocyte% 3.7 % (0-10); NRBC Flagged by Analyzer 0 % (0-5); Neutrophil # 6.41 X10^3/uL (2.7-7.7); Neutrophil % 72.4 % (47-70); Platelet Count 254 K/mm3 (150-450); RBC Distribution Width SD 45.5 fl (35.1-43.9); Red Blood Count 3.77 M/mm3 (4.2-5.4); White Blood Count 8.9 K/mm3 (4.4-11.0)
[2023-09-04 12:01] LABS: Anion Gap 5 (5-15); BUN 38 mg/dL (7-18); BUN/Creat Ratio 31.1 RATIO (10-20); Calcium,Total 8.8 mg/dL (8.5-10.1); Chloride 112 mmol/L (98-107); Creatinine, Serum 1.22 mg/dL (0.55-1.02); EST Glomerular Filtration Rate 48 mL/min (>60); Est Glom Filt Rate - Afr Amer 58 mL/min (>60); Estimated Creatinine Clearance 60.03 ml/min; Glucose 244 mg/dL (74-106); Sodium Level 140 mmol/L (136-145)
[2023-09-04 12:13] LABS: Carbamazepine (Tegretol) 8.1 ug/mL (4.0-12.0)
[2023-09-04] MEDS: 0.9% Normal Saline (500mL Bag) 500 ML 999 ML IV (12:27)
[2023-09-04 12:39] LABS: Mucous, Urine 0 SEEN /hpf (<or=2+); Red Blood Cells-Urine 0 SEEN /hpf (0-5)
[2023-09-04 12:44] LABS: Color, Urine Yellow (Yellow); Glucose, Dipstick Normal (Normal); Ketone-Dipstick Negative (Negative); Leukocyte Esterase-Dipstick 25 /ul (Negative); Nitrite-Dipstick Negative (Negative); Occult Blood-Urine Negative /ul (Negative); Protein-Dipstick Negative (Negative); Urine Bilirubin Dipstick Negative (Negative); Urine Clarity Clear (Clear); Urine Urobilinogen Normal (Normal)
[2023-09-04 12:52] LABS: Bacteria 1+ /hpf (None Seen); Squamous Epithelial Cells - UA 0-5 SEEN /hpf (5-10); White Blood Cells 0-5 SEEN /hpf (0-5)
--- NOTE | 2023-09-04 13:14 | HP.PCM_ITS ---
HPI - General General Date of Admission: 09/04/23 Date of Service: 09/04/23 Chief Complaint: mechanical fall HPI Narrative AFM VINSON, is a 58 F with a PMH as outlined who presents via the ED On 09/04/2023 with a complaint of mechanical fall. Sh fell twice yeseday and once today. She uses a walker at home. SHe has had several falls and says she doesnt feel dizzy or lightheaded. She hit her head on te floor yesterday and believes she lost consciousness. REview of systems was otherwise negative. Vitals in the ED were temp of 98F, IL of 61, BP of 108/69,. RR of 14 and pulse ox of 99% on room air. CBC showed hemoglobin of 11.7 WBC of 8.9 and platelets of 254. Chemistry shows sodium of 140 with creatinine of 1.22 potassium of 4. Urinalysis showed 1+ bacteria and carbamazepine level was within normal limits at 8.1. She had had an MRI July 2023 which showed findings consistent with a demyelinating process/MS with an area of likely demyelination in the right frontal lobe she has been admitted to be managed for debility due to recurrent falls with concerns for multiple sclerosis. [facility] Medical History Allergic rhinitis Anxiety Brain TIA Chronic migraine COPD (chronic obstructive pulmonary disease) Depression Diabetes mellitus, type 2 Former smoker Former tobacco use GERD (gastroesophageal reflux disease) History of CVA (cerebrovascular accident) HTN (hypertension) Hypercholesterolemia Migraines Obesity Orthostasis Psoriasis Seizure disorder Transient hypotension Home Medications albuterol sulfate 90 mcg/actuation aerosol inhaler 90 inh inhalation Q4H PRN PRN Wheezing 09/03/22 [History Last Taken 09/04/23] atorvastatin 80 mg tablet 80 mg PO QHS . 09/03/22 [History Last Taken 09/03/23] urppoomyum-pljxkzcbyxqsr-umgicywk 50 mg-325 mg-40 mg tablet 1 tab PO Q6H PRN Headache 09/03/22 [History Last Taken 09/04/23] carbamazepine 200 mg tablet,extended release,12 hr 200 mg PO BID SEIZURE 09/03/22 [History Last Taken 09/04/23] diclofenac sodium 75 mg tablet,delayed release 75 mg PO BID PRN pain 09/03/22 [History Last Taken 09/04/23] docusate sodium 100 mg capsule 100 mg PO BID CONSTIPATION 09/03/22 [History Last Taken 09/03/23] ergocalciferol (vitamin D2) 1,250 mcg (50,000 unit) capsule 50,000 unit PO MO Check with primary doctor 09/03/22 [History Last Taken 08/30/23] flash glucose scanning reader ([place] WirelessStyle Es 2 [place]) 09/03/22 [History Last Taken Unknown] flash glucose sensor (FreeStyle Es 2 Sensor kit) 09/03/22 [History Last Taken Unknown] gabapentin 100 mg capsule 200 mg PO BID . 09/03/22 [History Last Taken 09/04/23] gabapentin 800 mg tablet 800 mg PO QHS PAIN 09/03/22 [History Last Taken 09/03/23] glucagon 1 mg injection kit mg Check with primary doctor 09/03/22 [History Last Taken Unknown] insulin syr/ndl U100 half shirley 0.5 mL 31 gauge x 5/16 (Droplet Insulin Syringe (half unit)) 09/03/22 [History Last Taken Unknown] omeprazole 40 mg capsule,delayed release 40 mg PO DAILY GERD 09/03/22 [History Last Taken 09/04/23] promethazine 25 mg tablet 25 mg PO Q6H PRN PRN Nausea #12 TABLETS 11/08/22 [Rx Last Taken 09/04/23] dextromethorphan 20 mg-quinidine 10 mg capsule (Nuedexta) 1 cap PO BID DEPRESSION 02/06/23 [History Last Taken 09/04/23] ubrogepant 100 mg tablet (Ubrelvy) 100 mg PO .COMPLEX PRN MIGRAINE 02/06/23 [History Last Taken 09/04/23] duloxetine 60 mg capsule,delayed release 60 mg PO BID . 05/31/23 [History Last Taken 09/04/23] insulin glargine 100 unit/mL (3 mL) subcutaneous pen 24 unit subcut QHS DM 05/31 [History Last Taken 09/03/23] furosemide 20 mg tablet (Lasix) 40 mg PO DAILY EDEMA 07/29/23 [History Last Taken 09/04/23] semaglutide 0.25 mg or 0.5 mg (2 mg/3 mL) subcutaneous pen injector (Ozempic) 0.25 mg subcut QWEEK . 07/29/23 [History Last Taken 09/01/23] tizanidine 4 mg tablet 4 mg PO Q8H PRN muscle spasticity 07/29/23 [History Last Taken 09/04/23] galcanezumab-gnlm 120 mg/mL subcutaneous pen injector (Emgality Pen) 120 mg subcut .COMPLEX . 09/04/23 [History Last Taken 08/05/23] insulin lispro 100 unit/mL subcutaneous solution 1 sliding scale dose subcut .COMPLEX DM 09/04/23 [History Last Taken 09/04/23] meclizine 25 mg tablet 25 mg PO DAILY . 09/04/23 [History Last Taken 09/04/23] midodrine 10 mg tablet 10 mg PO TID . 09/04/23 [History Last Taken 09/04/23] nystatin 100,000 unit/gram topical powder (Nyamyc) 1 applic topical BID RASH 09/04/23 [History Last Taken 09/04/23] potassium chloride 10 mEq tablet,extended release 10 meq PO DAILY SUPPLEMENT 09/04/23 [History Last Taken 09/04/23] topiramate 200 mg tablet 200 mg PO Q12H , 09/04/23 [History Last Taken 09/04/23] vitamin B complex 1 tab PO BID SUPPLEMENT 09/04/23 [History Last Taken 09/04/23] Allergy/AdvReac Type Severity Reaction Status Date / Time latex Allergy Rash Verified 09/04/23 11:21 levofloxacin [From Levaquin] Allergy Hives Verified 09/04/23 11:21 ondansetron [From Zofran] Allergy Hives Verified 09/04/23 11:21 nalbuphine [From Nubain] AdvReac Other Verified 09/04/23 11:21 Family History Father Cancer Mother Cancer Surgical History Hx of cholecystectomy Hx of tonsillectomy Hx of tubal ligation Social History (Updated 09/04/23 @ 14:33 by Jenny Pang) household members: family and none housing: house Smoking Status: Former smoker alcohol intake: never substance use type: does not use ROS Constitutional Constitutional: Reports fatigue, malaise and weakness; Denies anorexia, chills or fever(s) Eyes Eyes: Denies change in vision ENT HEENT: Denies dysphagia Cardiovascular Cardiovascular: Denies chest pain, edema or orthopnea Respiratory/Chest Respiratory/Chest: Denies cough Gastrointestinal Gastrointestinal: Denies abdominal pain, diarrhea, dyspepsia, nausea or vomiting Genitourinary Genitourinary: Denies dysuria Musculoskeletal Musculoskeletal: Denies muscle weakness Neurologic Neurologic: Denies confusion, dizziness, focal weakness or numbness Vital Signs Vital Signs Vital Signs: 09/04/23 11:16 09/04/23 11:22 Temperature 98 F Temperature Source Temporal Pulse Rate 61 Respiratory Rate 14 Respiratory Effort Normal Non-Labored Respiratory Depth Normal Respiratory Pattern Normal Blood Pressure 108/69 Blood Pressure Mean 82 Pulse Ox 99 Oxygen Delivery Method Room Air Room Air Weight Weight: 215 lb 13.321 oz Body Mass Index (BMI) 34.8 Physical Exam Const alert, oriented x3 and no apparent distress General Appearance: cooperative and well developed HEENT normocephalic, head/scalp atraumatic, moist oral mucous membranes and oropharynx normal Eyes PERRL and EOMs intact bilaterally Neck no lymphadenopathy and supple Lymph Lymphatic: no lymphadenopathy noted and no lymphedema noted Resp normal respiratory effort, normal air movement and clear to auscultation bilaterally Cardio regular rate, regular rhythm, S1 normal heart sound, S2 normal heart sound and no murmurs GI normal to inspection, nondistended, normoactive bowel sounds, soft to palpation, non-tender and non-distended Extremity normal capillary refill, no clubbing, cyanosis or edema and no calf tenderness Skin General Skin Exam: no breakdown Neuro CN's II-XII intact bilaterally, no focal motor deficits, no sensory deficits noted and deep tendon reflexes 2+ bilaterally Motor Exam: general weakness Psych thought process normal and cooperative Appearance: appropriate Results Lab / Micro Data 09/04/23 11:30 09/04/23 11:30 Labs: Laboratory Results - last 24 hr 09/04/23 11:30: WBC 8.9, RBC 3.77 L, Hgb 11.7 L, Hct 36.4 L, MCV 96.6, MCH 31.0, MCHC 32.1, RDW Std Deviation 45.5 H, RDW Coeff of He 13.0, Plt Count 254, MPV 10.6, Immature Gran % (Auto) 0.300, Neut % (Auto) 72.4 H, Lymph % (Auto) 22.0, [place] % (Auto) 3.7, Eos % (Auto) 1.4, Baso % (Auto) 0.2, Absolute Neuts (auto) 6.4, Absolute Lymphs (auto) 1.95, Nucleated RBC % 0, Sodium 140, Potassium 4.0, Chloride 112 H, Carbon Dioxide 23.0, Anion Gap 5, BUN 38 H, Creatinine 1.22 H, Estim Creat Clear Calc 60.03, Est GFR (MDRD) Af Amer 58 L, Est GFR (MDRD) Non-Af 48 L, BUN/Creatinine Ratio 31.1 H, Glucose 244 H, Calcium 8.8, Carbamazepine 8.1 09/04/23 12:20: Urine Color Yellow, Urine Clarity Clear, Urine pH 6.0, Ur Specific [place] 1.020, Urine Protein Negative, Urine Glucose (UA) Normal, Urine Ketones Negative, Urine Occult Blood Negative, Urine Nitrite Negative, Urine Bilirubin Negative, Urine Urobilinogen Normal, Ur Leukocyte Esterase 25 H, Urine RBC 0 SEEN, Urine WBC 0-5 SEEN, Ur Squamous Epith Cells 0-5 SEEN, Urine Bacteria 1+, Urine Mucus 0 SEEN Assessment & Plan Assessment/Plan (1) Recurrent falls: (2) Generalized weakness: (3) Multiple falls: PLAN: Plan #Debility due to recurrent falls * came in with several falls. She had an MRI of e brain in July 2023 which showed focal areas of white matter signal hyperintensity and findings consistent with a demyelinating process/multiple sclerosis with an area of acute demyelination in the right frontal lobe. * States she was told about 12 years ago that she had these brain lesions but told that they are not MS. She may benefit from neurology follow-up on outpatient basis. * PT/O consult * fall precautions * #Abnormal urinalysis * urinalysis showed 1+ bacteria. Get urine culture * hold off on antibiotics for now pending urine cultures * #History of seizures: on carbamazepine. #Hyperlipidemia: on statin. Type 2 diabetes mellitus: On Lantus 16 units daily. Insulin sliding scale. Accu-Cheks ACHS. On ozempic. #Hypotension: On midodrine #History of migraines: On Nuedexta and Fioricet. DVT Prophylaxis; SCDs Code status: * Patient counseled extensively about different types of CODE STATUS including full code, DNR CCA and DNR CCA. Patient elects to be full code. Total [id number] time 16 minutes. Charges/Coding Visit Charges Inpatient E&M: 77818 Init Hosp L2 Procedures Hospitalists Procedures: 83930 Advncd Care Plan 30 Min
[2023-09-04 13:45] VITALS: BP 151/84; PULSE 60; RESP 20; O2SAT 100
[2023-09-04 13:46] VITALS: BP 151/84; PULSE 82; RESP 22; TEMP 36.6; O2SAT 100
[2023-09-04 14:12] VITALS: BMI 33.8
[2023-09-04 14:13] VITALS: BP 147/75; PULSE 60; RESP 16; TEMP 36.5; O2SAT 100
[2023-09-04] MEDS: Acetaminophen/Butalbital/Caffe 1 Tablet PO ×2 (15:33→21:50)
[2023-09-04 17:19] VITALS: BP 151/87; PULSE 63; RESP 16; TEMP 36.6; O2SAT 100
[2023-09-04 17:24] LABS: Bedside Glucose 72 mg/dL (74-106)
[2023-09-04] MEDS: Midodrine HCl 5 MG Tablet 10 MG PO (17:26)
[2023-09-04] MEDS: Vitamin B Comp W-C Capsule 1 CAP PO (17:26)
[2023-09-04] MEDS: Gabapentin 800 MG Tablet PO (21:42)
[2023-09-04] MEDS: Docusate Sodium 100 MG Capsule PO (21:42)
[2023-09-04] MEDS: Atorvastatin Calcium 80 MG Tablet PO (21:42)
[2023-09-04] MEDS: tiZANidine HCl 2 MG Tablet 4 MG PO (21:42)
[2023-09-04] MEDS: proMETHazine 25 MG Tablet PO (21:42)
[2023-09-04] MEDS: Topiramate 200 MG Tablet PO (21:42)
[2023-09-04] MEDS: Diclofenac 75 MG Tablet PO (21:42)
[2023-09-04] MEDS: Insulin Glargine-YFGN 100 UNIT/ML Pen 24 UNIT SC (21:43)
[2023-09-04] MEDS: Nystatin Powder 15gm Bottle 1 APPLIC TOPICAL (21:43)
[2023-09-04] MEDS: DULoxetine Hcl 60 MG Capsule PO (21:43)
[2023-09-04 21:54] VITALS: BP 115/74; PULSE 61; RESP 16; TEMP 36.7; O2SAT 100
[2023-09-04] MEDS: carBAMazepine 200 MG Tablet PO (22:18)
[2023-09-04] MEDS: CLARIFY ORDER NOTE (22:24)
[2023-09-04 22:34] LABS: Bedside Glucose 155 mg/dL (74-106)
[2023-09-05 04:10] VITALS: BP 101/67; PULSE 56; RESP 16; TEMP 36.6; O2SAT 97
[2023-09-05 06:21] LABS: Absolute Lymphocyte Count 3.04 X10^3/uL (0.83-4.51); Absolute Neutrophil Count 7.3 X10^3/uL (2.0-7.7); Basophil# 0.03 X10^3/uL; Basophil% 0.3 % (0-1); Eosinophil# 0.16 X10^3/uL; Eosinophils% 1.4 % (0-5); Hematocrit 34.6 % (37-47); Hemoglobin 10.9 g/dL (12.0-15.0); Lymphocyte # 3.04 X10^3/ul (0.83-4.51); Mean Corp Hgb Conc 31.5 g/dL (32-36); Mean Corpuscular Hgb 30.1 pg (27.0-32.0); Mean Corpuscular Volume 95.6 fL (81-99); Monocyte# 0.69 X10^3/uL; Monocyte% 6.1 % (0-10); NRBC Flagged by Analyzer 0 % (0-5); Neutrophil # 7.34 X10^3/uL (2.7-7.7); Platelet Count 222 K/mm3 (150-450); RBC Distribution Width CV 12.9 % (11.6-14.6); RBC Distribution Width SD 45.1 fl (35.1-43.9); Red Blood Count 3.62 M/mm3 (4.2-5.4); White Blood Count 11.3 K/mm3 (4.4-11.0)
[2023-09-05] MEDS: Insulin Lispro 100 UNIT/ML INSULN.PEN SC ×4 (06:36→21:59)
[2023-09-05 06:54] LABS: Bedside Glucose 175 mg/dL (74-106)
[2023-09-05 06:57] LABS: Anion Gap 5 (5-15); BUN 26 mg/dL (7-18); BUN/Creat Ratio 27.7 RATIO (10-20); Calcium,Total 8.9 mg/dL (8.5-10.1); Chloride 114 mmol/L (98-107); Creatinine, Serum 0.94 mg/dL (0.55-1.02); EST Glomerular Filtration Rate 65 mL/min (>60); Est Glom Filt Rate - Afr Amer 79 mL/min (>60); Estimated Creatinine Clearance 76.74 ml/min; Glucose 183 mg/dL (74-106); Potassium 4.1 mmol/L (3.5-5.1); Sodium Level 142 mmol/L (136-145)
[2023-09-05 07:53] VITALS: BP 109/60; PULSE 58; RESP 14; TEMP 36.4; O2SAT 99
[2023-09-05] MEDS: proMETHazine 25 MG Tablet PO ×2 (07:55→19:43)
[2023-09-05] MEDS: Acetaminophen/Butalbital/Caffe 1 Tablet PO ×2 (07:55→19:43)
[2023-09-05] MEDS: Acetaminophen 325 MG Tablet 650 MG PO ×2 (07:55→19:43)
[2023-09-05] MEDS: carBAMazepine 200 MG Tablet PO (07:56)
[2023-09-05] MEDS: DULoxetine Hcl 60 MG Capsule PO ×2 (07:56→21:39)
[2023-09-05] MEDS: Meclizine HCl 25 MG Tablet PO (07:57)
[2023-09-05] MEDS: Pantoprazole Sodium 40 MG Tablet PO (07:57)
[2023-09-05] MEDS: Vitamin B Comp W-C Capsule 1 CAP PO ×2 (07:57→16:10)
[2023-09-05] MEDS: Midodrine HCl 5 MG Tablet 10 MG PO ×3 (07:58→16:09)
[2023-09-05] MEDS: Potassium Chloride Oral Tablet 10 MEQ PO (07:58)
[2023-09-05] MEDS: Docusate Sodium 100 MG Capsule PO ×2 (07:59→21:38)
[2023-09-05] MEDS: Furosemide 40 MG Tablet PO (07:59)
[2023-09-05] MEDS: Topiramate 200 MG Tablet PO ×2 (07:59→21:40)
[2023-09-05] MEDS: Nystatin Powder 15gm Bottle 1 APPLIC TOPICAL ×2 (08:00→21:42)
[2023-09-05] MEDS: Gabapentin 100 MG Capsule 200 MG PO ×2 (08:06→12:37)
[2023-09-05] MEDS: 0.9% Saline Lock 10 ML Syringe IV (08:06)
--- NOTE | 2023-09-05 10:15 | NEURO.CONS ---
Assessment and Plan: Neuro Assessment/Plan FAM VINSON, is a 58 F with a past medical history of seizures on Carbamazepine ER 200 mg BID, demyelinating disease, migraines, HTN, HLD, DMII, who is presenting with falls. Neurology consutled given history of MS and seizures. Her falls are mechanical for the most part. No new symptoms concerning for demyelinating disease flair. No indications to repeat imaging at this time. In regarding to her seizure, she reported having had breakthrough seizures over the past couple weeks. One of her falls she was walking and then woke up on the ground. This could have been a seizure as well. Will incresae her seizure medicatio Recommendations: - Increase Carbamazepine ER to 200 mg in the AM, and 300 mg in the PM - She needs follow up with Neuroimmunology regarding her demyelinating disease. She stated she will follow up with her local neurologist who can then refer her. Neurology will sign off. Contact us with any questions. I personally attended this patient and spent a total time of 60 minutes evaluating this patient including clinical assessment, review of chart, medical history imaging, and determining appropriate treatment and workup. HPI Consult Data Date of Consult: 09/05/23 HPI Narrative HPI Narrative: FAM VINSON, is a 58 F with a past medical history of seizures on Carbamazepine ER 200 mg BID, demyelinating disease, migraines, HTN, HLD, DMII, who is presenting with falls. She was recently admitted in July for dehydration and falls. She was evaluated by Neurology then given questionable history of demyelinating disease. MRI brain then showed some whtie matter lesions in addition to new enhancing lesion in R frontal periventricular region consistent with demyelinating disease. Spine imaging did not show any lesions. LP was performed with normal protein, and no cells. OCB were not performed by lab. She was given IVMP x 5 days, with plan to follow up outpatient. rEEG during that admission showed evidence of generalized epilepsy. She is returning now with falls again. She has had few falls, some fo which are mechanical (walker sliding from under her, tripping). One of which though, she says she was walking, and next thing she knows she woke up on the floor on her back She reported having had 2 seizures in the past few weeks. When asked what her seizure look like she says she doesn't know, but would bite her tongue. Says her most recent EEG showed epilepsy. She lives with her sister and brother in law. Sister is sick and has PNA. Brother in law worked 7 days a week, 12 hours a day. [facility] Medical History Allergic rhinitis Anxiety Brain TIA Chronic migraine COPD (chronic obstructive pulmonary disease) Depression Diabetes mellitus, type 2 Former smoker Former tobacco use GERD (gastroesophageal reflux disease) History of CVA (cerebrovascular accident) HTN (hypertension) Hypercholesterolemia Migraines Obesity Orthostasis Psoriasis Seizure disorder Transient hypotension Home Medications albuterol sulfate 90 mcg/actuation aerosol inhaler 90 inh inhalation Q4H PRN PRN Wheezing 09/03/22 [History Last Taken 09/04/23] atorvastatin 80 mg tablet 80 mg PO QHS . 09/03/22 [History Last Taken 09/03/23] olrhgrnghl-gkvxkignrsuez-whbpftcz 50 mg-325 mg-40 mg tablet 1 tab PO Q6H PRN Headache 09/03/22 [History Last Taken 09/04/23] carbamazepine 200 mg tablet,extended release,12 hr 200 mg PO BID SEIZURE 09/03/22 [History Last Taken 09/04/23] diclofenac sodium 75 mg tablet,delayed release 75 mg PO BID PRN pain 09/03/22 [History Last Taken 09/04/23] docusate sodium 100 mg capsule 100 mg PO BID CONSTIPATION 09/03/22 [History Last Taken 09/03/23] ergocalciferol (vitamin D2) 1,250 mcg (50,000 unit) capsule 50,000 unit PO MO Check with primary doctor 09/03/22 [History Last Taken 08/30/23] flash glucose scanning reader (FreeStyle Es 2 Gaastra) 09/03/22 [History Last Taken Unknown] flash glucose sensor (FreeStyle Es 2 Sensor kit) 09/03/22 [History Last Taken Unknown] gabapentin 100 mg capsule 200 mg PO BID . 09/03/22 [History Last Taken 09/04/23] gabapentin 800 mg tablet 800 mg PO QHS PAIN 09/03/22 [History Last Taken 09/03/23] glucagon 1 mg injection kit mg Check with primary doctor 09/03/22 [History Last Taken Unknown] insulin syr/ndl U100 half shirley 0.5 mL 31 gauge x 5/16 (Droplet Insulin Syringe (half unit)) 09/03/22 [History Last Taken Unknown] omeprazole 40 mg capsule,delayed release 40 mg PO DAILY GERD 09/03/22 [History Last Taken 09/04/23] promethazine 25 mg tablet 25 mg PO Q6H PRN PRN Nausea #12 TABLETS 11/08/22 [Rx Last Taken 09/04/23] dextromethorphan 20 mg-quinidine 10 mg capsule (Nuedexta) 1 cap PO BID DEPRESSION 02/06/23 [History Last Taken 09/04/23] ubrogepant 100 mg tablet (Ubrelvy) 100 mg PO .COMPLEX PRN MIGRAINE 02/06/23 [History Last Taken 09/04/23] duloxetine 60 mg capsule,delayed release 60 mg PO BID . 05/31/23 [History Last Taken 09/04/23] insulin glargine 100 unit/mL (3 mL) subcutaneous pen 24 unit subcut QHS DM 05/31/23 [History Last Taken 09/03/23] furosemide 20 mg tablet (Lasix) 40 mg PO DAILY EDEMA 07/29/23 [History Last Taken 09/04/23] semaglutide 0.25 mg or 0.5 mg (2 mg/3 mL) subcutaneous pen injector (Ozempic) 0.25 mg subcut QWEEK . 07/29/23 [History Last Taken 09/01/23] tizanidine 4 mg tablet 4 mg PO Q8H PRN muscle spasticity 07/29/23 [History Last Taken 09/04/23] galcanezumab-gnlm 120 mg/mL subcutaneous pen injector (Emgality Pen) 120 mg subcut .COMPLEX . 09/04/23 [History Last Taken 08/05/23] insulin lispro 100 unit/mL subcutaneous solution 1 sliding scale dose subcut .COMPLEX DM 09/04/23 [History Last Taken 09/04/23] meclizine 25 mg tablet 25 mg PO DAILY . 09/04/23 [History Last Taken 09/04/23] midodrine 10 mg tablet 10 mg PO TID . 09/04/23 [History Last Taken 09/04/23] nystatin 100,000 unit/gram topical powder (Nyamyc) 1 applic topical BID RASH 09/04/23 [History Last Taken 09/04/23] potassium chloride 10 mEq tablet,extended release 10 meq PO DAILY SUPPLEMENT 09/04/23 [History Last Taken 09/04/23] topiramate 200 mg tablet 200 mg PO Q12H , 09/04/23 [History Last Taken 09/04/23] vitamin B complex 1 tab PO BID SUPPLEMENT 09/04/23 [History Last Taken 09/04/23] Allergy/AdvReac Type Severity Reaction Status Date / Time latex Allergy Rash Verified 09/04/23 11:21 levofloxacin [From Levaquin] Allergy Hives Verified 09/04/23 11:21 ondansetron [From Zofran] Allergy Hives Verified 09/04/23 11:21 nalbuphine [From Nubain] AdvReac Other Verified 09/04/23 11:21 Family History Father Cancer Mother Cancer Surgical History Hx of cholecystectomy Hx of tonsillectomy Hx of tubal ligation Social History (Updated 09/04/23 @ 14:33 by Jenny Pang) household members: family and none housing: house Smoking Status: Former smoker alcohol intake: never substance use type: does not use Vital Signs Vital Signs Vital Signs: 09/04/23 11:16 09/04/23 11:22 09/04/23 13:45 Temperature 98 F Temperature Source Temporal Pulse Rate 61 60 Pulse Strength Respiratory Rate 14 20 H Respiratory Effort Normal Non-Labored Respiratory Depth Normal Respiratory Pattern Normal Blood Pressure 108/69 151/84 H Blood Pressure Mean 82 106 Blood Pressure Source Blood Pressure Position Blood Pressure Location Pulse Ox 99 100 Oxygen Delivery Method Room Air Room Air Room Air 09/04/23 13:46 09/04/23 14:13 09/04/23 14:38 Temperature 98 F 97.7 F L Temperature Source Oral Pulse Rate 82 60 Pulse Strength Respiratory Rate 22 H 16 Respiratory Effort Normal Non-Labored Respiratory Depth Normal Respiratory Pattern Normal Blood Pressure 151/84 H 147/75 H Blood Pressure Mean 106 99 Blood Pressure Source Monitor Blood Pressure Position Supine Blood Pressure Location Left Arm Pulse Ox 100 100 Oxygen Delivery Method Room Air Room Air 09/04/23 17:19 09/04/23 21:54 09/04/23 22:00 Temperature 97.8 F 98.1 F Temperature Source Oral Oral Pulse Rate 63 61 Pulse Strength Normal (2+) Respiratory Rate 16 16 Respiratory Effort Respiratory Depth Respiratory Pattern Blood Pressure 151/87 H 115/74 Blood Pressure Mean 108 87 Blood Pressure Source Monitor Monitor Blood Pressure Position Semi-Fowlers Semi-Fowlers Blood Pressure Location Right Arm Right Arm Pulse Ox 100 100 Oxygen Delivery Method Room Air Room Air 09/04/23 22:00 09/05/23 04:10 09/05/23 04:24 Temperature 97.9 F Temperature Source Oral Pulse Rate 56 L Pulse Strength Respiratory Rate 16 Respiratory Effort Normal Non-Labored Normal Non-Labored Respiratory Depth Normal Normal Respiratory Pattern Normal Normal Blood Pressure 101/67 Blood Pressure Mean 78 Blood Pressure Source Monitor Blood Pressure Position Semi-Fowlers Blood Pressure Location Right Arm Pulse Ox 97 Oxygen Delivery Method Room Air Room Air Room Air 09/05/23 07:53 09/05/23 09:45 Temperature 97.6 F L Temperature Source Oral Pulse Rate 58 L Pulse Strength Normal (2+) Respiratory Rate 14 Respiratory Effort Respiratory Depth Respiratory Pattern Blood Pressure 109/60 Blood Pressure Mean 76 Blood Pressure Source Monitor Blood Pressure Position Supine Blood Pressure Location Left Arm Pulse Ox 99 Oxygen Delivery Method Room Air Weight Weight: 95.1 kg Body Mass Index (BMI) 33.8 EEG Results Procedure Details EEG Procedure Details: FAM VINSON is a 58 year old F with a past medical history of , who presents for evaluation of Electroencephalogram on DATE at TIME Physical Exam Narrative NEURO: Exam performed with help of the nurse/FLYNN present with patient on Tele site NEURO: AAOx3, follows commands, no aphasia. Slight dysarthria. EOMI, no nystagmus. Face symmetric. Intact hearing bilaterally. Tongue midline Sensation decreased to light touch over the L face and arm. Unable to feel her legs. Reports this is chronic for her and has been like this for many months now. Motor: All extremities anti gravity Motor: 5/5 all four extremities. Normal bulk and tone, No drift/orbiting. Lab / Micro Data 09/05/23 05:20 09/05/23 05:20 Labs: Laboratory Results - last 24 hr 09/04/23 11:30: WBC 8.9, RBC 3.77 L, Hgb 11.7 L, Hct 36.4 L, MCV 96.6, MCH 31.0, MCHC 32.1, RDW Std Deviation 45.5 H, RDW Coeff of He 13.0, Plt Count 254, MPV 10.6, Immature Gran % (Auto) 0.300, Neut % (Auto) 72.4 H, Lymph % (Auto) 22.0, [place] % (Auto) 3.7, Eos % (Auto) 1.4, Baso % (Auto) 0.2, Absolute Neuts (auto) 6.4, Absolute Lymphs (auto) 1.95, Nucleated RBC % 0, Sodium 140, Potassium 4.0, Chloride 112 H, Carbon Dioxide 23.0, Anion Gap 5, BUN 38 H, Creatinine 1.22 H, Estim Creat Clear Calc 60.03, Est GFR (MDRD) Af Amer 58 L, Est GFR (MDRD) Non-Af 48 L, BUN/Creatinine Ratio 31.1 H, Glucose 244 H, Calcium 8.8, Carbamazepine 8.1 09/04/23 12:20: Urine Color Yellow, Urine Clarity Clear, Urine pH 6.0, Ur Specific [place] 1.020, Urine Protein Negative, Urine Glucose (UA) Normal, Urine Ketones Negative, Urine Occult Blood Negative, Urine Nitrite Negative, Urine Bilirubin Negative, Urine Urobilinogen Normal, Ur Leukocyte Esterase 25 H, Urine RBC 0 SEEN, Urine WBC 0-5 SEEN, Ur Squamous Epith Cells 0-5 SEEN, Urine Bacteria 1+, Urine Mucus 0 SEEN 09/04/23 17:06: POC Glucose 72 L 09/04/23 21:37: POC Glucose 155 H 09/05/23 05:20: WBC 11.3 H, RBC 3.62 L, Hgb 10.9 L, Hct 34.6 L, MCV 95.6, MCH 30.1, MCHC 31.5 L, RDW Std Deviation 45.1 H, RDW Coeff of He 12.9, Plt Count 222, MPV 11.0, Immature Gran % (Auto) 0.200, Neut % (Auto) 65.0, Lymph % (Auto) 27.0, [place] % (Auto) 6.1, Eos % (Auto) 1.4, Baso % (Auto) 0.3, Absolute Neuts (auto) 7.3, Absolute Lymphs (auto) 3.04, Nucleated RBC % 0, Sodium 142, Potassium 4.1, Chloride 114 H, Carbon Dioxide 23.0, Anion Gap 5, BUN 26 H, Creatinine 0.94, Estim Creat Clear Calc 76.74, Est GFR (MDRD) Af Amer 79, Est GFR (MDRD) Non-Af 65, BUN/Creatinine Ratio 27.7 H, Glucose 183 H, Calcium 8.9 09/05/23 06:34: POC Glucose 175 H Active Medications Active Medications Active Medications: Current Medications Generic Name Dose Route Start Last Admin Trade Name Freq PRN Reason Stop Dose Admin Acetaminophen 650 mg 09/04/23 14:17 09/05/23 07:55 Acetaminophen 325 Mg Tablet PO 650 mg Q6H PRN PRN Administration Pain 1-10 Or Fever >100.7 Acetaminophen/Butalbital/Caffeine 1 tablet 09/04/23 14:39 09/05/23 07:55 Acetaminophen/Butalbital/Caffe 1 Tablet PO 1 tablet Q6H PRN Administration Headache Albuterol Sulfate 2.5 mg 09/04/23 15:06 Albuterol 2.5 Mg/3 Ml Vial.Neb. INHALATION Q4H PRN PRN Wheezing Atorvastatin Calcium 80 mg 09/04/23 22:00 09/04/23 21:42 Atorvastatin Calcium 80 Mg Tablet PO 80 mg QHS ELICIA Administration Carbamazepine 200 mg 09/04/23 22:00 09/05/23 07:56 Carbamazepine 200 Mg Tablet PO 200 mg BID ELICIA Administration Clarify Med Order 0 each 09/04/23 17:00 09/04/23 22:24 Clarify Order NOTE 1 each CLARIFY ELICIA Administration Diclofenac Sodium 75 mg 09/04/23 14:39 09/04/23 21:42 Diclofenac 75 Mg Tablet PO 75 mg BID PRN PRN Administration Pain Score 1-10 Docusate Sodium 100 mg 09/04/23 22:00 09/05/23 07:59 Docusate Sodium 100 Mg Capsule PO 100 mg BID ELICIA Administration Duloxetine HCl 60 mg 09/04/23 22:00 09/05/23 07:56 Duloxetine Hcl 60 Mg Capsule PO 60 mg BID ELICIA Administration Ergocalciferol 1.25 mg 09/06/23 10:00 Ergocalciferol 1.25 Mg (50, 000 Unit) Capsule PO Mo@1000 ELICIA Furosemide 40 mg 09/05/23 10:00 09/05/23 07:59 Furosemide 40 Mg Tablet PO 40 mg DAILY ELICIA Administration Protocol Gabapentin 800 mg 09/04/23 22:00 09/04/23 21:42 Gabapentin 800 Mg Tablet PO 800 mg QHS ELICIA Administration Gabapentin 200 mg 09/05/23 08:00 09/05/23 08:06 Gabapentin 100 Mg Capsule PO 200 mg 0800,1200 ELICIA Administration Insulin Glargine 24 unit 09/04/23 22:00 09/04/23 21:43 Insulin Glargine-Yfgn 100 Unit/Ml Pen SC 24 unit QHS ELICIA Administration Insulin Human Lispro 0 unit 09/04/23 22:00 09/05/23 06:36 Insulin Lispro 100 Unit/Ml Insuln.Pen SC 1 u ACHS ELICIA Administration Protocol Meclizine HCl 25 mg 09/05/23 10:00 09/05/23 07:57 Meclizine Hcl 25 Mg Tablet PO 25 mg DAILY ELICIA Administration Midodrine 10 mg 09/04/23 17:00 09/05/23 07:58 Midodrine Hcl 5 Mg Tablet PO 10 mg TIDCM ELICIA Administration Multivitamins 1 cap 09/04/23 17:00 09/05/23 07:57 Vitamin B Comp W-C Capsule PO 1 cap BIDCM ELICIA Administration Non-Formulary Medication 1 cap 09/04/23 22:00 Dextromethorphan-Quinidine [Nuedexta] PO BID ELICIA Non-Formulary Medication 120 mg 09/04/23 14:45 Galcanezumab-Gnlm [Emgality Pen] SC .COMPLEX ELICIA Non-Formulary Medication 0.25 mg 09/04/23 14:45 Semaglutide [Ozempic] SC QWEEK ELICIA Non-Formulary Medication 100 mg 09/04/23 14:39 Ubrogepant [Ubrelvy] PO .COMPLEX PRN MIGRAINE Nystatin 1 applic 09/04/23 22:00 09/05/23 08:00 Nystatin Powder 15gm Bottle TOPICAL 1 applic BID ELICIA Administration Protocol Pantoprazole Sodium 40 mg 09/05/23 10:00 09/05/23 07:57 Pantoprazole Sodium 40 Mg Tablet PO 40 mg DAILY ELICIA Administration Potassium Chloride 10 meq 09/05/23 08:00 09/05/23 07:58 Potassium Chloride Oral Tablet 10 Meq PO 10 meq DAILYCM ELICIA Administration Promethazine HCl 25 mg 09/04/23 14:39 09/05/23 07:55 Promethazine 25 Mg Tablet PO 25 mg Q6H PRN PRN Administration Nausea Sodium Chloride 10 - 40 ml 09/04/23 14:29 09/05/23 08:06 0.9% Saline Lock 10 Ml Syringe IV 10 ml UD PRN Administration SALINE FLUSH Tizanidine HCl 4 mg 09/04/23 14:39 09/04/23 21:42 Tizanidine Hcl 2 Mg Tablet PO 4 mg Q8H PRN PRN Administration muscle spasticity Topiramate 200 mg 09/04/23 22:00 09/05/23 07:59 Topiramate 200 Mg Tablet PO 200 mg Q12 ELICIA Administration
--- NOTE | 2023-09-05 11:44 | PN_ITS ---
Subjective Subjective Patient seen and examined. She complained of a migraine headache today. Review of systems is otherwise negative. Objective Data Objective Data Vital Signs: Vital Signs Temp Pulse Resp BP Pulse Ox O2 Del Method 97.6 F L 58 L 14 109/60 99 Room Air 09/05/23 07:53 09/05/23 07:53 09/05/23 07:53 09/05/23 07:53 09/05/23 07:53 09/05/23 07:53 Oxygen Delivery Method Room Air Weight: 209 lb 10.554 oz Body Mass Index (BMI) 33.8 Intake & Output: Intake and Output for Last 24 Hours 09/03/23 09/04/23 09/05/23 23:59 23:59 23:59 Intake Total 500 / 500 Output Total 800 / 800 Balance -300 / -300 Lab / Micro Data 09/05/23 05:20 09/05/23 05:20 Labs: Laboratory Results - last 24 hr 09/04/23 11:30: WBC 8.9, RBC 3.77 L, Hgb 11.7 L, Hct 36.4 L, MCV 96.6, MCH 31.0, MCHC 32.1, RDW Std Deviation 45.5 H, RDW Coeff of He 13.0, Plt Count 254, MPV 10.6, Immature Gran % (Auto) 0.300, Neut % (Auto) 72.4 H, Lymph % (Auto) 22.0, [place] % (Auto) 3.7, Eos % (Auto) 1.4, Baso % (Auto) 0.2, Absolute Neuts (auto) 6.4, Absolute Lymphs (auto) 1.95, Nucleated RBC % 0, Sodium 140, Potassium 4.0, Chloride 112 H, Carbon Dioxide 23.0, Anion Gap 5, BUN 38 H, Creatinine 1.22 H, Estim Creat Clear Calc 60.03, Est GFR (MDRD) Af Amer 58 L, Est GFR (MDRD) Non-Af 48 L, BUN/Creatinine Ratio 31.1 H, Glucose 244 H, Calcium 8.8, Carbamazepine 8.1 09/04/23 12:20: Urine Color Yellow, Urine Clarity Clear, Urine pH 6.0, Ur Specific [place] 1.020, Urine Protein Negative, Urine Glucose (UA) Normal, Urine Ketones Negative, Urine Occult Blood Negative, Urine Nitrite Negative, Urine B ilirubin Negative, Urine Urobilinogen Normal, Ur Leukocyte Esterase 25 H, Urine RBC 0 SEEN, Urine WBC 0-5 SEEN, Ur Squamous Epith Cells 0-5 SEEN, Urine Bacteria 1+, Urine Mucus 0 SEEN 09/04/23 17:06: POC Glucose 72 L 09/04/23 21:37: POC Glucose 155 H 09/05/23 05:20: WBC 11.3 H, RBC 3.62 L, Hgb 10.9 L, Hct 34.6 L, MCV 95.6, MCH 30.1, MCHC 31.5 L, RDW Std Deviation 45.1 H, RDW Coeff of He 12.9, Plt Count 222, MPV 11.0, Immature Gran % (Auto) 0.200, Neut % (Auto) 65.0, Lymph % (Auto) 27.0, [place] % (Auto) 6.1, Eos % (Auto) 1.4, Baso % (Auto) 0.3, Absolute Neuts (auto) 7.3, Absolute Lymphs (auto) 3.04, Nucleated RBC % 0, Sodium 142, Potassium 4.1, Chloride 114 H, Carbon Dioxide 23.0, Anion Gap 5, BUN 26 H, Creatinine 0.94, Estim Creat Clear Calc 76.74, Est GFR (MDRD) Af Amer 79, Est GFR (MDRD) Non-Af 65, BUN/Creatinine Ratio 27.7 H, Glucose 183 H, Calcium 8.9 09/05/23 06:34: POC Glucose 175 H Physical Exam Const alert, oriented x3 and no apparent distress Constitutional Narrative: obese General Appearance: cooperative and well developed HEENT normocephalic, head/scalp atraumatic, moist oral mucous membranes and oropharynx normal Eyes PERRL and EOMs intact bilaterally Neck no lymphadenopathy and supple Lymph Lymphatic: no lymphadenopathy noted and no lymphedema noted Resp normal respiratory effort, normal air movement and clear to auscultation bilaterally Cardio regular rate, regular rhythm, S1 normal heart sound, S2 normal heart sound and no murmurs GI normal to inspection, nondistended, normoactive bowel sounds, soft to palpation, non-tender and non-distended Extremity normal capillary refill, no clubbing, cyanosis or edema and no calf tenderness Skin General Skin Exam: no breakdown Neuro CN's II-XII intact bilaterally, no focal motor deficits, no sensory deficits noted and deep tendon reflexes 2+ bilaterally Motor Exam: general weakness Psych thought process normal and cooperative Appearance: appropriate Assessment & Plan Assessment/Plan (1) Recurrent falls: (2) Generalized weakness: PLAN: Plan #Debility due to recurrent falls * came in with several falls. She had an MRI of the brain in July 2023 which showed focal areas of white matter signal hyperintensity and findings consistent with a demyelinating process/multiple sclerosis with an area of ac antoine demyelination in the right frontal lobe. * States she was told about 12 years ago that she had these brain lesions but told that they are not MS. She may benefit from neurology follow-up on outpat ient basis. * PT/OT consult * fall precautions * neurology consulted; neurology recommends increasing carbamazepine ER to 200mg AM and 300mg pm. Neurology recommends she follows up with neuroimmunology * #Abnormal urinalysis * urinalysis showed 1+ bacteria. Get urine culture * hold off on antibiotics for now pending urine cultures * #History of seizures: on carbamazepine. #Hyperlipidemia: on statin. Type 2 diabetes mellitus: On Lantus 16 units daily. Insulin sliding scale. Accu-Cheks ACHS. On ozempic. #Hypotension: On midodrine #History of migraines: On Nuedexta and Fioricet. DVT Prophylaxis; SCDs Charges/Coding Visit Charges Inpatient E&M: 06408 Subs Hosp L2
[2023-09-05] MEDS: Diclofenac 75 MG Tablet PO ×2 (12:37→22:10)
[2023-09-05 12:57] LABS: Bedside Glucose 183 mg/dL (74-106)
[2023-09-05 14:27] VITALS: BP 108/60; PULSE 69; RESP 16; TEMP 37; O2SAT 94
[2023-09-05] MEDS: hydrOXYzine PAM 25 MG Capsule PO (16:03)
[2023-09-05 19:18] LABS: Bedside Glucose 251 mg/dL (74-106)
[2023-09-05 21:00] VITALS: BP 127/53; PULSE 65; RESP 18; TEMP 36.6; O2SAT 96
[2023-09-05] MEDS: Atorvastatin Calcium 80 MG Tablet PO (21:39)
[2023-09-05] MEDS: carBAMazepine 200 MG Tablet 300 MG PO (21:40)
[2023-09-05] MEDS: Gabapentin 800 MG Tablet PO (21:40)
[2023-09-05] MEDS: Insulin Glargine-YFGN 100 UNIT/ML Pen 24 UNIT SC (21:59)
[2023-09-05] MEDS: tiZANidine HCl 2 MG Tablet 4 MG PO (22:10)
[2023-09-06] LABS: Bedside Glucose 270 mg/dL (74-106)
[2023-09-06 03:00] VITALS: BP 130/71; PULSE 64; RESP 18; TEMP 36.7; O2SAT 96
[2023-09-06] MEDS: Insulin Lispro 100 UNIT/ML INSULN.PEN SC ×4 (06:57→22:59)
[2023-09-06 06:58] LABS: Bedside Glucose 160 mg/dL (74-106)
[2023-09-06 07:29] LABS: Absolute Lymphocyte Count 2.53 X10^3/uL (0.83-4.51); Basophil# 0.03 X10^3/uL; Basophil% 0.5 % (0-1); Eosinophil# 0.15 X10^3/uL; Eosinophils% 2.4 % (0-5); Hemoglobin 11.7 g/dL (12.0-15.0); Lymphocyte # 2.53 X10^3/ul (0.83-4.51); Lymphocyte % 41.3 % (19-41); Mean Corp Hgb Conc 31.6 g/dL (32-36); Mean Corpuscular Hgb 29.5 pg (27.0-32.0); Mean Corpuscular Volume 93.2 fL (81-99); Mean Platelet Vol. 11.7 fl (6.2-12.0); Monocyte# 0.43 X10^3/uL; NRBC Flagged by Analyzer 0 % (0-5); Neutrophil # 2.96 X10^3/uL (2.7-7.7); Neutrophil % 48.3 % (47-70); POSITIVE COUNT YES; Platelet Count 151 K/mm3 (150-450); RBC Distribution Width CV 12.6 % (11.6-14.6); RBC Distribution Width SD 43.1 fl (35.1-43.9); Red Blood Count 3.97 M/mm3 (4.2-5.4); White Blood Count 6.1 K/mm3 (4.4-11.0)
[2023-09-06 08:02] LABS: Differential Indicated SCAN CRITERIA MET
[2023-09-06 08:03] LABS: Differential Comment SCANNED; Platelet Estimate ADEQUATE (ADEQ)
[2023-09-06 08:05] LABS: Anion Gap 5 (5-15); BUN 35 mg/dL (7-18); BUN/Creat Ratio 36.9 RATIO (10-20); Chloride 114 mmol/L (98-107); Creatinine, Serum 0.95 mg/dL (0.55-1.02); EST Glomerular Filtration Rate 65 mL/min (>60); Est Glom Filt Rate - Afr Amer 78 mL/min (>60); Estimated Creatinine Clearance 75.93 ml/min; Glucose 187 mg/dL (74-106); Potassium 4.1 mmol/L (3.5-5.1); Sodium Level 138 mmol/L (136-145)
[2023-09-06 08:25] VITALS: BP 112/54; PULSE 64; RESP 18; TEMP 36.7; O2SAT 96
[2023-09-06] MEDS: Acetaminophen/Butalbital/Caffe 1 Tablet PO ×2 (08:40→22:46)
[2023-09-06] MEDS: Vitamin B Comp W-C Capsule 1 CAP PO ×2 (08:40→16:21)
[2023-09-06] MEDS: Acetaminophen 325 MG Tablet 650 MG PO ×2 (08:40→22:46)
[2023-09-06] MEDS: Gabapentin 100 MG Capsule 200 MG PO ×2 (08:40→11:38)
[2023-09-06] MEDS: proMETHazine 25 MG Tablet PO ×2 (08:40→22:46)
[2023-09-06] MEDS: Pantoprazole Sodium 40 MG Tablet PO (08:40)
[2023-09-06] MEDS: Topiramate 200 MG Tablet PO ×2 (08:41→22:45)
[2023-09-06] MEDS: Nystatin Powder 15gm Bottle 1 APPLIC TOPICAL ×2 (08:41→22:43)
[2023-09-06] MEDS: carBAMazepine 200 MG Tablet PO (08:41)
[2023-09-06] MEDS: Ergocalciferol 1.25 MG (50, 000 UNIT) Capsule PO (08:42)
[2023-09-06] MEDS: Midodrine HCl 5 MG Tablet 10 MG PO ×3 (08:42→16:21)
[2023-09-06] MEDS: Meclizine HCl 25 MG Tablet PO (08:42)
[2023-09-06] MEDS: Potassium Chloride Oral Tablet 10 MEQ PO (08:42)
[2023-09-06] MEDS: Furosemide 40 MG Tablet PO (08:43)
[2023-09-06] MEDS: DULoxetine Hcl 60 MG Capsule PO ×2 (08:43→22:42)
[2023-09-06] MEDS: Docusate Sodium 100 MG Capsule PO ×2 (08:48→22:42)
--- NOTE | 2023-09-06 09:33 | CASEMGMT ---
Addendum entered by Joselin Wilkerson 09/06/23 10:09: Patient mentioned a physician told her she needs intensive therapy, 3 hours a day. SW told patient about Acute Rehab Units and she would get 3 hours of therapy. [facility] Acute Rehab is full, but SW can check in with admissions. SW told patient that the next closest Acute Rehab facilities are in [facility], and [place]. Patient said her family would not be able to come and visit her if she went that far. SW told patient SW can check with [facility] Acute Rehab and if they do not have any availability SW can continue with referral to [facility]. Patient was agreeable to this. SW spoke with Mary in admission for Rehab and they are full with a discharge. However, there are 2 referrals in line to be reviewed for Rehab. Michelle d/madi planning aide sent a referral to [facility]. Joselin ALICIA Original Note: SW met with patient. Introduced self and role at [facility]. Patient stated she needs to go somewhere for rehab. Patient stated she would like to go back to [facility] if possible. SW let patient know SW will work on referral. Joselin ALICIA
--- NOTE | 2023-09-06 10:10 | CASEMGMT ---
Addendum entered by Michelle Pereyra 09/06/23 14:12: [facility] has accepted patient. SW updated. Michelle Pereyra, Discharge Planning Asst. Original Note: Discharge Planning Referral sent via [facility] to [facility]. Michelle Pereyra, Discharge Planning Asst.
--- NOTE | 2023-09-06 11:22 | PN_ITS ---
Subjective Subjective Patient seen and examined. She had no complaints. Review of systems otherwise negative. She is awaiting placement. Objective Data Objective Data Vital Signs: Vital Signs Temp Pulse Resp BP Pulse Ox O2 Del Method 98.0 F 64 18 112/54 L 96 Room Air 09/06/23 08:25 09/06/23 08:25 09/06/23 08:25 09/06/23 08:25 09/06/23 08:25 09/06/23 08:25 Oxygen Delivery Method Room Air Weight: 209 lb 10.554 oz Body Mass Index (BMI) 33.8 Intake & Output: Intake and Output for Last 24 Hours 09/04/23 09/05/23 09/06/23 23:59 23:59 23:59 Intake Total 500 / 500 490 / 990 850 / 850 Output Total 800 / 800 Balance -300 / -300 490 / 990 850 / 850 Lab / Micro Data 09/06/23 07:00 09/06/23 07:00 Labs: Laboratory Results - last 24 hr 09/05/23 12:33: POC Glucose 183 H 09/05/23 16:06: POC Glucose 251 H 09/05/23 21:58: POC Glucose 270 H 09/06/23 06:40: POC Glucose 160 H 09/06/23 07:00: WBC 6.1, RBC 3.97 L, Hgb 11.7 L, Hct 37.0, MCV 93.2, MCH 29.5, MCHC 31.6 L, RDW Std Deviation 43.1, RDW Coeff of He 12.6, Plt Count 151, MPV 11.7, Immature Gran % (Auto) 0.500, Neut % (Auto) 48.3, Lymph % (Auto) 41.3 H, [place] % (Auto) 7.0, Eos % (Auto) 2.4, Baso % (Auto) 0.5, Absolute Neuts (auto) 3.0, Absolute Lymphs (auto) 2.53, Nucleated RBC % 0, Differential Comment SCANNED, Platelet Estimate ADEQUATE, Sodium 138, Potassium 4.1, Chloride 114 H, Carbon Dioxide 19.0 L, Anion Gap 5, BUN 35 H, Creatinine 0.95, Estim Creat Clear Calc 75.93, Est GFR (MDRD) Af Amer 78, Est GFR (MDRD) Non-Af 65, BUN/Creatinine Ratio 36.9 H, Glucose 187 H, Calcium 9.0 Physical Exam Const alert, oriented x3 and no apparent distress Constitutional Narrative: obese General Appearance: cooperative and well developed HEENT normocephalic, head/scalp atraumatic, moist oral mucous membranes and oropharynx normal Eyes PERRL and EOMs intact bilaterally Neck no lymphadenopathy and supple Lymph Lymphatic: no lymphadenopathy noted and no lymphedema noted Resp normal respiratory effort, normal air movement and clear to auscultation bilaterally Cardio regular rate, regular rhythm, S1 normal heart sound, S2 normal heart sound and no murmurs GI normal to inspection, nondistended, normoactive bowel sounds, soft to palpation, non-tender and non-distended Extremity normal capillary refill, no clubbing, cyanosis or edema and no calf tenderness Skin General Skin Exam: no breakdown Neuro CN's II-XII intact bilaterally, no focal motor deficits, no sensory deficits noted and deep tendon reflexes 2+ bilaterally Motor Exam: general weakness Psych thought process normal and cooperative Appearance: appropriate Assessment & Plan Assessment/Plan (1) Recurrent falls: (2) Generalized weakness: PLAN: Plan #Debility due to recurrent falls * came in with several falls. She had an MRI of the brain in July 2023 which showed focal areas of white matter signal hyperintensity and findings consistent with a demyelinating process/multiple sclerosis with an area of acute demyelination in the right frontal lobe. * States she was told about 12 years ago that she had these brain lesions but told that they are not MS. She may benefit from neurology follow-up on outpatient basis. * PT/OT consult * fall precautions * neurology consulted; neurology recommends increasing carbamazepine ER to 200mg AM and 300mg pm. Neurology recommends she follows up with neuroimmunology * #Abnormal urinalysis * urinalysis showed 1+ bacteria. Get urine culture * hold off on antibiotics for now pending urine cultures * #History of seizures: on carbamazepine. #Hyperlipidemia: on statin. Type 2 diabetes mellitus: On Lantus 16 units daily. Insulin sliding scale. Accu-Cheks ACHS. On ozempic. #Hypotension: On midodrine #History of migraines: On Nuedexta and Fioricet. DVT Prophylaxis; SCDs Disposition: Awaiting placement. Charges/Coding Visit Charges Inpatient E&M: 31051 Subs Hosp L2
[2023-09-06 11:35] VITALS: BP 123/76; PULSE 55; RESP 18; TEMP 36.7; O2SAT 98
[2023-09-06] MEDS: tiZANidine HCl 2 MG Tablet 4 MG PO ×2 (11:37→22:47)
[2023-09-06] MEDS: Diclofenac 75 MG Tablet PO (11:43)
[2023-09-06 12:09] LABS: Bedside Glucose 288 mg/dL (74-106)
[2023-09-06] MEDS: hydrOXYzine PAM 25 MG Capsule PO (15:26)
--- NOTE | 2023-09-06 15:29 | CASEMGMT ---
SW updated patient that [facility] Acute Rehab may be able to take her. SW also explained that if Rehab cannot take her [facility] said they would be able to take her. Patient was in agreement with this plan. Patient declined a list of SNF's as she wants [facility] due to being there before. Patient declined a list of Acute Rehab Units since she wants to stay in [place]. Joselin Wilkerson INDUSTRIAL HYGIENIST RAVIN
[2023-09-06 15:46] LABS: Bedside Glucose 329 mg/dL (74-106)
--- NOTE | 2023-09-06 15:53 | CHAPLAIN ---
Type of Pastoral Visit _x__ Initial Visit ___ Follow-up Visit ___ On-call Visit ___ General Patient Visit ___ Spiritual Assessment ___ Family Conference ___ Bereavement ___ Rapid Response ___ Code Blue ___ Other (describe below) Pastoral Care Referral From _x__ Patient ___ Family ___ Nurse ___ Physician ___ Agricultural Engineering Teacher ___ Election Assistant ___ Other (describe below) Sacrament/Intervention _x__ Active listening ___ Anointing ___ Orthodox ___ Bereavement ___ Communion _x__ Lisa exploration ___ _x__ Life review _x__ Prayer ___ Reconciliation ___ Sacrament of Sick _x__ Supportive presence ___ Wedding ___ Other (describe below) Pastoral Comments patient gives her story of ongoing falls and sudden weakness in her legs; pt admits to her discouragement over ongoing health issues and that she has many why me questions and the concerns of her future; talked about what does make her more positive and how she can be encouraged in her moral and ethic pathway; pt admits to bouts of crying; prayer given
[2023-09-06 16:20] VITALS: BP 123/68; PULSE 73; RESP 16; TEMP 36.7; O2SAT 98
[2023-09-06] MEDS: Atorvastatin Calcium 80 MG Tablet PO (22:43)
[2023-09-06] MEDS: Gabapentin 800 MG Tablet PO (22:43)
[2023-09-06] MEDS: carBAMazepine 200 MG Tablet 300 MG PO (22:44)
[2023-09-06 22:48] VITALS: BP 134/72; PULSE 66; RESP 18; TEMP 36.3; O2SAT 97
[2023-09-06] MEDS: Insulin Glargine-YFGN 100 UNIT/ML Pen 24 UNIT SC (22:59)
[2023-09-07 01:19] LABS: Bedside Glucose 250 mg/dL (74-106)
[2023-09-07 04:00] VITALS: BP 134/70; PULSE 61; RESP 18; TEMP 35.9; O2SAT 97
[2023-09-07] MEDS: Insulin Lispro 100 UNIT/ML INSULN.PEN SC ×4 (06:30→20:59)
[2023-09-07 06:50] LABS: Bedside Glucose 179 mg/dL (74-106)
--- NOTE | 2023-09-07 07:43 | CASEMGMT ---
Acute Rehab declined patient. will notify [facility] to start the pre-cert. However, because patient is observation status SW will have to complete a PASRR in the [employer] system. Patient will trip the level II screen due to her seizure disorder. Patient will have to remain in the hospital until Board of DD and State clear patient. This could take several days. Plan: [facility] pending pre-cert and level II approval. Joselin Wilkerson SUPERVISOR [employer] RAVIN
[2023-09-07 07:57] LABS: Absolute Lymphocyte Count 2.88 X10^3/uL (0.83-4.51); Absolute Neutrophil Count 4.2 X10^3/uL (2.0-7.7); Basophil# 0.04 X10^3/uL; Basophil% 0.5 % (0-1); Eosinophil# 0.18 X10^3/uL; Eosinophils% 2.3 % (0-5); Hematocrit 38.5 % (37-47); Hemoglobin 12.4 g/dL (12.0-15.0); Lymphocyte # 2.88 X10^3/ul (0.83-4.51); Lymphocyte % 36.9 % (19-41); Mean Corp Hgb Conc 32.2 g/dL (32-36); Mean Corpuscular Hgb 29.7 pg (27.0-32.0); Mean Corpuscular Volume 92.3 fL (81-99); Mean Platelet Vol. 10.9 fl (6.2-12.0); Monocyte# 0.53 X10^3/uL; Monocyte% 6.8 % (0-10); NRBC Flagged by Analyzer 0 % (0-5); Neutrophil # 4.16 X10^3/uL (2.7-7.7); Neutrophil % 53.2 % (47-70); Platelet Count 236 K/mm3 (150-450); RBC Distribution Width CV 12.8 % (11.6-14.6); RBC Distribution Width SD 42.9 fl (35.1-43.9); Red Blood Count 4.17 M/mm3 (4.2-5.4); White Blood Count 7.8 K/mm3 (4.4-11.0)
[2023-09-07 08:09] VITALS: BP 135/67; PULSE 112; RESP 16; TEMP 36.3; O2SAT 100
[2023-09-07] MEDS: Vitamin B Comp W-C Capsule 1 CAP PO ×2 (08:10→16:09)
[2023-09-07] MEDS: DULoxetine Hcl 60 MG Capsule PO ×2 (08:10→20:46)
[2023-09-07] MEDS: Midodrine HCl 5 MG Tablet 10 MG PO ×3 (08:10→16:11)
[2023-09-07] MEDS: Pantoprazole Sodium 40 MG Tablet PO (08:10)
[2023-09-07] MEDS: Potassium Chloride Oral Tablet 10 MEQ PO (08:10)
[2023-09-07] MEDS: Acetaminophen/Butalbital/Caffe 1 Tablet PO ×2 (08:11→20:50)
[2023-09-07] MEDS: proMETHazine 25 MG Tablet PO ×3 (08:11→23:44)
[2023-09-07] MEDS: Furosemide 40 MG Tablet PO (08:11)
[2023-09-07] MEDS: Acetaminophen 325 MG Tablet 650 MG PO (08:11)
[2023-09-07] MEDS: Meclizine HCl 25 MG Tablet PO (08:14)
[2023-09-07] MEDS: Docusate Sodium 100 MG Capsule PO ×2 (08:15→20:46)
[2023-09-07] MEDS: carBAMazepine 200 MG Tablet PO (08:15)
[2023-09-07] MEDS: Gabapentin 100 MG Capsule 200 MG PO ×2 (08:19→11:51)
[2023-09-07] MEDS: Nystatin Powder 15gm Bottle 1 APPLIC TOPICAL ×2 (08:19→20:47)
[2023-09-07] MEDS: Topiramate 200 MG Tablet PO ×2 (08:19→20:50)
[2023-09-07 08:25] LABS: Anion Gap 6 (5-15); BUN 30 mg/dL (7-18); BUN/Creat Ratio 33.1 RATIO (10-20); Calcium,Total 9.3 mg/dL (8.5-10.1); Chloride 112 mmol/L (98-107); EST Glomerular Filtration Rate 68 mL/min (>60); Est Glom Filt Rate - Afr Amer 82 mL/min (>60); Estimated Creatinine Clearance 80.15 ml/min; Glucose 195 mg/dL (74-106); Potassium 4.1 mmol/L (3.5-5.1); Sodium Level 140 mmol/L (136-145)
--- NOTE | 2023-09-07 08:38 | CASEMGMT ---
SW completed and submitted a PASRR in [employer] system. A level II evaluation by Board of DD is required before patient can leave the hospital. Joselin ALICIA
--- NOTE | 2023-09-07 10:00 | CASEMGMT ---
JAYA let patient know Acute Rehab cannot take her so JAYA asked [facility] to start the process to get the okay from her insurance company. Joselin Wilkerson FINAL OPERATIONS TECHNICIAN RAVIN
--- NOTE | 2023-09-07 10:48 | PN_ITS ---
Subjective Subjective Patient seen and examined. She had no complaints. Review of systems otherwise negative. She was awaiting placement. She has been working with therapy. She expresses fear of frequent falls. Objective Data Objective Data Vital Signs: Vital Signs Temp Pulse Resp BP Pulse Ox O2 Del Method 97.4 F L 112 H 16 135/67 H 100 Room Air 09/07/23 08:09 09/07/23 08:09 09/07/23 08:09 09/07/23 08:09 09/07/23 08:09 09/07/23 08:09 Oxygen Delivery Method Room Air Weight: 209 lb 10.554 oz Body Mass Index (BMI) 33.8 Intake & Output: Intake and Output for Last 24 Hours 09/05/23 09/06/23 09/07/23 23:59 23:59 23:59 Intake Total 490 / 990 1960 / 2460 1200 / 1200 Output Total 1250 / 1250 Balance 490 / 990 710 / 1210 1200 / 1200 Lab / Micro Data 09/07/23 07:35 09/07/23 07:35 Labs: Laboratory Results - last 24 hr 09/06/23 11:33: POC Glucose 288 H 09/06/23 15:25: POC Glucose 329 H 09/06/23 22:57: POC Glucose 250 H 09/07/23 06:28: POC Glucose 179 H 09/07/23 07:35: WBC 7.8, RBC 4.17 L, Hgb 12.4, Hct 38.5, MCV 92.3, MCH 29.7, MCHC 32.2, RDW Std Deviation 42.9, RDW Coeff of He 12.8, Plt Count 236, MPV 10.9, Immature Gran % (Auto) 0.300, Neut % (Auto) 53.2, Lymph % (Auto) 36.9, [place] % (Auto) 6.8, Eos % (Auto) 2.3, Baso % (Auto) 0.5, Absolute Neuts (auto) 4.2, Absolute Lymphs (auto) 2.88, Nucleated RBC % 0, Sodium 140, Potassium 4.1, Chloride 112 H, Carbon Dioxide 22.0, Anion Gap 6, BUN 30 H, Creatinine 0.90, Estim Creat Clear Calc 80.15, Est GFR (MDRD) Af Amer 82, Est GFR (MDRD) Non-Af 68, BUN/Creatinine Ratio 33.1 H, Glucose 195 H, Calcium 9.3 Micro: Microbiology 09/05/23 14:40 Urine, Clean Catch Urine Culture - Final Escherichia coli Physical Exam Const alert, oriented x3 and no apparent distress Constitutional Narrative: obese General Appearance: cooperative and well developed HEENT normocephalic, head/scalp atraumatic, moist oral mucous membranes and oropharynx normal Eyes PERRL and EOMs intact bilaterally Neck no lymphadenopathy and supple Lymph Lymphatic: no lymphadenopathy noted and no lymphedema noted Resp normal respiratory effort, normal air movement and clear to auscultation bilaterally Cardio regular rate, regular rhythm, S1 normal heart sound, S2 normal heart sound and no murmurs GI normal to inspection, nondistended, normoactive bowel sounds, soft to palpation, non-tender and non-distended Extremity normal capillary refill, no clubbing, cyanosis or edema and no calf tenderness Skin General Skin Exam: no breakdown Neuro CN's II-XII intact bilaterally, no focal motor deficits, no sensory deficits noted and deep tendon reflexes 2+ bilaterally Motor Exam: strength 5/5 throughout and general weakness Psych thought process normal and cooperative Appearance: appropriate Assessment & Plan Assessment/Plan (1) Recurrent falls: (2) Generalized weakness: PLAN: Plan #Debility due to recurrent falls * came in with several falls. She had an MRI of the brain in July 2023 which showed focal areas of white matter signal hyperintensity and findings consistent with a demyelinating process/multiple sclerosis with an area of acu te demyelination in the right frontal lobe. * States she was told about 12 years ago that she had these brain lesions but told that they are not MS. She may benefit from neurology follow-up on outpatient basis. * PT/OT consult * fall precautions * neurology consulted; neurology recommends increasing carbamazepine ER to 200mg AM and 300mg pm. Neurology recommends she follows up with neuroimmunology * #Abnormal urinalysis * urinalysis showed 1+ bacteria. Get urine culture * urine culture grew E coli, >100,000 * will place on PO omnicef 300mg bid x 5 days * #History of seizures: on carbamazepine. #Hyperlipidemia: on statin. Type 2 diabetes mellitus: On Lantus 16 units daily. Insulin sliding scale. Accu-Cheks ACHS. On ozempic. #Hypotension: On midodrine #History of migraines: On Nuedexta and Fioricet. DVT Prophylaxis; SCDs Disposition: Awaiting placement. Charges/Coding Visit Charges Inpatient E&M: 05113 Subs Hosp L2
[2023-09-07 11:36] LABS: Bedside Glucose 312 mg/dL (74-106)
[2023-09-07] MEDS: Cefdinir 300 MG Capsule PO ×2 (12:10→20:48)
[2023-09-07 14:00] VITALS: BP 126/78; PULSE 92; RESP 16; TEMP 36.6; O2SAT 99
[2023-09-07] MEDS: tiZANidine HCl 2 MG Tablet 4 MG PO (16:09)
[2023-09-07 16:36] LABS: Bedside Glucose 326 mg/dL (74-106)
[2023-09-07] MEDS: hydrOXYzine PAM 25 MG Capsule PO (18:27)
[2023-09-07] MEDS: Atorvastatin Calcium 80 MG Tablet PO (20:47)
[2023-09-07] MEDS: carBAMazepine 200 MG Tablet 300 MG PO (20:49)
[2023-09-07] MEDS: Gabapentin 800 MG Tablet PO (20:57)
[2023-09-07] MEDS: Insulin Glargine-YFGN 100 UNIT/ML Pen 24 UNIT SC (20:58)
[2023-09-07 21:00] LABS: Bedside Glucose 365 mg/dL (74-106)
[2023-09-07 21:42] VITALS: BP 113/58; PULSE 64; RESP 16; TEMP 36.8; O2SAT 97
[2023-09-08 03:42] VITALS: BP 115/62; PULSE 66; RESP 16; TEMP 36.6; O2SAT 96
[2023-09-08] MEDS: Insulin Lispro 100 UNIT/ML INSULN.PEN SC ×4 (06:21→21:26)
[2023-09-08 07:30] LABS: Absolute Lymphocyte Count 2.72 X10^3/uL (0.83-4.51); Absolute Neutrophil Count 4.8 X10^3/uL (2.0-7.7); Basophil# 0.06 X10^3/uL; Basophil% 0.7 % (0-1); Eosinophil# 0.15 X10^3/uL; Eosinophils% 1.8 % (0-5); Hematocrit 35.4 % (37-47); Hemoglobin 11.3 g/dL (12.0-15.0); Lymphocyte # 2.72 X10^3/ul (0.83-4.51); Lymphocyte % 32.9 % (19-41); Mean Corp Hgb Conc 31.9 g/dL (32-36); Mean Corpuscular Hgb 29.8 pg (27.0-32.0); Mean Corpuscular Volume 93.4 fL (81-99); Mean Platelet Vol. 10.9 fl (6.2-12.0); Monocyte# 0.56 X10^3/uL; Monocyte% 6.8 % (0-10); NRBC Flagged by Analyzer 0 % (0-5); Neutrophil # 4.75 X10^3/uL (2.7-7.7); Neutrophil % 57.4 % (47-70); Platelet Count 224 K/mm3 (150-450); RBC Distribution Width CV 12.8 % (11.6-14.6); RBC Distribution Width SD 43.5 fl (35.1-43.9); Red Blood Count 3.79 M/mm3 (4.2-5.4); White Blood Count 8.3 K/mm3 (4.4-11.0)
[2023-09-08 07:58] LABS: Anion Gap 6 (5-15); BUN 36 mg/dL (7-18); BUN/Creat Ratio 39.7 RATIO (10-20); Calcium,Total 9.3 mg/dL (8.5-10.1); Chloride 110 mmol/L (98-107); Creatinine, Serum 0.91 mg/dL (0.55-1.02); EST Glomerular Filtration Rate 68 mL/min (>60); Est Glom Filt Rate - Afr Amer 82 mL/min (>60); Estimated Creatinine Clearance 79.27 ml/min; Glucose 267 mg/dL (74-106); Potassium 3.9 mmol/L (3.5-5.1); Sodium Level 138 mmol/L (136-145)
[2023-09-08 08:40] VITALS: BP 113/60; PULSE 62; RESP 16; TEMP 36.6; O2SAT 96
[2023-09-08] MEDS: Acetaminophen 325 MG Tablet 650 MG PO ×2 (08:44→16:58)
[2023-09-08] MEDS: Acetaminophen/Butalbital/Caffe 1 Tablet PO ×3 (08:44→23:28)
[2023-09-08] MEDS: Gabapentin 100 MG Capsule 200 MG PO ×2 (08:45→11:17)
[2023-09-08] MEDS: Topiramate 200 MG Tablet PO ×2 (08:45→21:21)
[2023-09-08] MEDS: Vitamin B Comp W-C Capsule 1 CAP PO ×2 (08:45→16:52)
[2023-09-08] MEDS: DULoxetine Hcl 60 MG Capsule PO ×2 (08:45→21:19)
[2023-09-08] MEDS: Furosemide 40 MG Tablet PO (08:45)
[2023-09-08] MEDS: proMETHazine 25 MG Tablet PO ×3 (08:45→23:28)
[2023-09-08] MEDS: Docusate Sodium 100 MG Capsule PO ×2 (08:46→21:19)
[2023-09-08] MEDS: Meclizine HCl 25 MG Tablet PO (08:46)
[2023-09-08] MEDS: Cefdinir 300 MG Capsule PO ×2 (08:46→21:20)
[2023-09-08] MEDS: Potassium Chloride Oral Tablet 10 MEQ PO (08:46)
[2023-09-08] MEDS: Midodrine HCl 5 MG Tablet 10 MG PO ×3 (08:46→16:52)
[2023-09-08] MEDS: Pantoprazole Sodium 40 MG Tablet PO (08:46)
[2023-09-08] MEDS: carBAMazepine 200 MG Tablet PO (09:19)
[2023-09-08 09:45] LABS: Bedside Glucose 251 mg/dL (74-106)
[2023-09-08] MEDS: Nystatin Powder 15gm Bottle 1 APPLIC TOPICAL ×2 (11:09→21:19)
[2023-09-08 11:30] LABS: Bedside Glucose 320 mg/dL (74-106)
--- NOTE | 2023-09-08 11:59 | PN_ITS ---
Subjective Subjective Patient seen and examined. She had no active complaints. She had an uneventful night. Review of systems is otherwise negative. She has remained hemodynamically stable. Objective Data Objective Data Vital Signs: Vital Signs Temp Pulse Resp BP Pulse Ox O2 Del Method 97.8 F 62 16 113/60 96 Room Air 09/08/23 08:40 09/08/23 08:40 09/08/23 08:40 09/08/23 08:40 09/08/23 08:40 09/08/23 08:40 Oxygen Delivery Method Room Air Weight: 209 lb 10.554 oz Body Mass Index (BMI) 33.8 Intake & Output: Intake and Output for Last 24 Hours 09/06/23 09/07/23 09/08/23 23:59 23:59 23:59 Intake Total 1960 / 2460 1890 / 1890 120 / 120 Output Total 1250 / 1250 Balance 710 / 1210 1890 / 1890 120 / 120 Lab / Micro Data 09/08/23 07:10 09/08/23 07:10 Labs: Laboratory Results - last 24 hr 09/07/23 16:18: POC Glucose 326 H 09/07/23 20:41: POC Glucose 365 H 09/08/23 06:21: POC Glucose 251 H 09/08/23 07:10: WBC 8.3, RBC 3.79 L, Hgb 11.3 L, Hct 35.4 L, MCV 93.4, MCH 29.8, MCHC 31.9 L, RDW Std Deviation 43.5, RDW Coeff of He 12.8, Plt Count 224, MPV 10.9, Immature Gran % (Auto) 0.400, Neut % (Auto) 57.4, Lymph % (Auto) 32.9, [place] % (Auto) 6.8, Eos % (Auto) 1.8, Baso % (Auto) 0.7, Absolute Neuts (auto) 4.8, Absolute Lymphs (auto) 2.72, Nucleated RBC % 0, Sodium 138, Potassium 3.9, Chloride 110 H, Carbon Dioxide 22.0, Anion Gap 6, BUN 36 H, Creatinine 0.91, Estim Creat Clear Calc 79.27, Est GFR (MDRD) Af Amer 82, Est GFR (MDRD) Non-Af 68, BUN/Creatinine Ratio 39.7 H, Glucose 267 H, Calcium 9.3 02/28/24 11:09: POC Glucose 320 H Micro: Microbiology 09/05/23 14:40 Urine, Clean Catch Urine Culture - Final Escherichia coli Physical Exam Const alert, oriented x3 and no apparent distress Constitutional Narrative: obese General Appearance: cooperative and well developed HEENT normocephalic, head/scalp atraumatic, moist oral mucous membranes and oropharynx normal Eyes PERRL and EOMs intact bilaterally Neck no lymphadenopathy and supple Lymph Lymphatic: no lymphadenopathy noted and no lymphedema noted Resp normal respiratory effort, normal air movement and clear to auscultation bilaterally Cardio regular rate, regular rhythm, S1 normal heart sound, S2 normal heart sound and no murmurs GI normal to inspection, nondistended, normoactive bowel sounds, soft to palpation, non-tender and non-distended Extremity normal capillary refill, no clubbing, cyanosis or edema and no calf tenderness Skin General Skin Exam: no breakdown Neuro CN's II-XII intact bilaterally, no focal motor deficits, no sensory deficits noted and deep tendon reflexes 2+ bilaterally Motor Exam: strength 5/5 throughout and general weakness Psych thought process normal and cooperative Appearance: appropriate Assessment & Plan Assessment/Plan (1) Recurrent falls: (2) Generalized weakness: PLAN: Plan #Debility due to recurrent falls * came in with several falls. She had an MRI of the brain in July 2023 which showed focal areas of white matter signal hyperintensity and findings consistent with a demyelinating process/multiple sclerosis with an area of acute demyelination in the right frontal lobe. * States she was told about 12 years ago that she had these brain lesions but told that they are not MS. She may benefit from neurology follow-up on outpatient basis. * PT/OT consult * fall precautions * neurology consulted and reviewed patient; neurology recommends increasing carbamazepine ER to 200mg AM and 300mg pm. Neurology recommends she follows up with neuroimmunology * #UTI * urinalysis showed 1+ bacteria. Get urine culture * urine culture grew E coli, >100,000 * will place on PO omnicef 300mg bid x 5 days * #History of seizures: on carbamazepine. #Hyperlipidemia: on statin. Type 2 diabetes mellitus: On Lantus 16 units daily. Insulin sliding scale. Accu-Cheks ACHS. On ozempic. #Hypotension: On midodrine #History of migraines: On Nuedexta and Fioricet. DVT Prophylaxis; SCDs Disposition: Awaiting placement. Charges/Coding Visit Charges Inpatient E&M: 91778 Subs Hosp L2
[2023-09-08 14:00] VITALS: BP 134/78; PULSE 73; RESP 16; TEMP 36.5; O2SAT 97
[2023-09-08] MEDS: tiZANidine HCl 2 MG Tablet 4 MG PO (15:35)
[2023-09-08] MEDS: Diclofenac 75 MG Tablet PO (16:58)
[2023-09-08] MEDS: Atorvastatin Calcium 80 MG Tablet PO (21:19)
[2023-09-08] MEDS: carBAMazepine 200 MG Tablet 300 MG PO (21:21)
[2023-09-08] MEDS: Gabapentin 800 MG Tablet PO (21:25)
[2023-09-08] MEDS: Insulin Glargine-YFGN 100 UNIT/ML Pen 24 UNIT SC (21:26)
[2023-09-08 21:42] VITALS: BP 111/65; PULSE 62; RESP 16; TEMP 35.7; O2SAT 97
[2023-09-08 22:48] LABS: Bedside Glucose 259 mg/dL (74-106)
[2023-09-09] MEDS: Insulin Lispro 100 UNIT/ML INSULN.PEN SC ×4 (06:47→20:43)
[2023-09-09 06:52] LABS: Bedside Glucose 208 mg/dL (74-106)
[2023-09-09 07:38] VITALS: BP 131/64; PULSE 59; RESP 18; TEMP 36.5; O2SAT 100
[2023-09-09 07:40] VITALS: O2SAT 100
[2023-09-09] MEDS: Potassium Chloride Oral Tablet 10 MEQ PO (07:45)
[2023-09-09] MEDS: Gabapentin 100 MG Capsule 200 MG PO ×2 (07:45→11:35)
[2023-09-09] MEDS: Furosemide 40 MG Tablet PO (07:45)
[2023-09-09] MEDS: Meclizine HCl 25 MG Tablet PO (07:45)
[2023-09-09] MEDS: Pantoprazole Sodium 40 MG Tablet PO (07:45)
[2023-09-09] MEDS: Midodrine HCl 5 MG Tablet 10 MG PO ×3 (07:45→16:03)
[2023-09-09] MEDS: DULoxetine Hcl 60 MG Capsule PO ×2 (07:45→20:42)
[2023-09-09] MEDS: Topiramate 200 MG Tablet PO ×2 (07:45→20:40)
[2023-09-09] MEDS: Acetaminophen/Butalbital/Caffe 1 Tablet PO ×3 (07:46→20:37)
[2023-09-09] MEDS: Vitamin B Comp W-C Capsule 1 CAP PO ×2 (07:46→16:03)
[2023-09-09] MEDS: proMETHazine 25 MG Tablet PO ×3 (07:46→20:36)
[2023-09-09] MEDS: Docusate Sodium 100 MG Capsule PO ×2 (07:46→20:41)
[2023-09-09] MEDS: Cefdinir 300 MG Capsule PO ×2 (07:46→20:39)
[2023-09-09] MEDS: Acetaminophen 325 MG Tablet 650 MG PO ×2 (07:52→14:34)
[2023-09-09] MEDS: Diclofenac 75 MG Tablet PO (07:52)
--- NOTE | 2023-09-09 07:53 | CASEMGMT ---
Insurance did approve patient, however patient will have to stay at [facility] until patient is cleared for level II evaluation. Joselin ALICIA
[2023-09-09 08:38] LABS: Absolute Lymphocyte Count 2.82 X10^3/uL (0.83-4.51); Absolute Neutrophil Count 5.2 X10^3/uL (2.0-7.7); Basophil# 0.06 X10^3/uL; Basophil% 0.7 % (0-1); Eosinophil# 0.21 X10^3/uL; Eosinophils% 2.3 % (0-5); Hematocrit 38.8 % (37-47); Hemoglobin 12.2 g/dL (12.0-15.0); Lymphocyte # 2.82 X10^3/ul (0.83-4.51); Lymphocyte % 31.4 % (19-41); Mean Corp Hgb Conc 31.4 g/dL (32-36); Mean Corpuscular Hgb 29.7 pg (27.0-32.0); Mean Corpuscular Volume 94.4 fL (81-99); Mean Platelet Vol. 11.2 fl (6.2-12.0); Monocyte# 0.67 X10^3/uL; Monocyte% 7.5 % (0-10); NRBC Flagged by Analyzer 0 % (0-5); Neutrophil # 5.19 X10^3/uL (2.7-7.7); Neutrophil % 57.7 % (47-70); Platelet Count 219 K/mm3 (150-450); RBC Distribution Width CV 12.9 % (11.6-14.6); RBC Distribution Width SD 43.8 fl (35.1-43.9); Red Blood Count 4.11 M/mm3 (4.2-5.4)
[2023-09-09 09:28] LABS: Anion Gap 6 (5-15); BUN 39 mg/dL (7-18); BUN/Creat Ratio 39.3 RATIO (10-20); Calcium,Total 9.3 mg/dL (8.5-10.1); Chloride 109 mmol/L (98-107); Creatinine, Serum 0.99 mg/dL (0.55-1.02); EST Glomerular Filtration Rate 61 mL/min (>60); Est Glom Filt Rate - Afr Amer 74 mL/min (>60); Estimated Creatinine Clearance 72.87 ml/min; Glucose 212 mg/dL (74-106); Potassium 4.1 mmol/L (3.5-5.1); Sodium Level 136 mmol/L (136-145)
[2023-09-09] MEDS: carBAMazepine 200 MG Tablet PO (09:36)
[2023-09-09] MEDS: Insulin Glargine-YFGN 100 UNIT/ML Pen 24 UNIT SC ×2 (09:37→20:42)
[2023-09-09] MEDS: Nystatin Powder 15gm Bottle 1 APPLIC TOPICAL ×2 (09:38→20:41)
[2023-09-09 09:40] VITALS: BP 127/63; PULSE 66; RESP 18; TEMP 36.6; O2SAT 98
[2023-09-09 11:54] LABS: Bedside Glucose 297 mg/dL (74-106)
[2023-09-09] MEDS: tiZANidine HCl 2 MG Tablet 4 MG PO (12:56)
--- NOTE | 2023-09-09 13:05 | PN_ITS ---
Subjective Subjective Patient seen and examined. She complained of her blood sugars being elevated. She says she usually takes her lantus twice daily at home, but has been getting it only daily here. Objective Data Objective Data Vital Signs: Vital Signs Temp Pulse Resp BP Pulse Ox O2 Del Method 97.8 F 66 18 127/63 H 98 Room Air 09/09/23 09:40 09/09/23 09:40 09/09/23 09:40 09/09/23 09:40 09/09/23 09:40 09/09/23 09:40 Oxygen Delivery Method Room Air Weight: 209 lb 10.554 oz Body Mass Index (BMI) 33.8 Intake & Output: Intake and Output for Last 24 Hours 09/07/23 09/08/23 09/09/23 23:59 23:59 23:59 Intake Total 1890 / 1890 600 / 600 640 / 640 Balance 1890 / 1890 600 / 600 640 / 640 Lab / Micro Data 09/09/23 08:10 09/09/23 08:10 Labs: Laboratory Results - last 24 hr 09/08/23 16:49: POC Glucose 259 H 09/09/23 06:31: POC Glucose 208 H 09/09/23 08:10: WBC 9.0, RBC 4.11 L, Hgb 12.2, Hct 38.8, MCV 94.4, MCH 29.7, MCHC 31.4 L, RDW Std Deviation 43.8, RDW Coeff of He 12.9, Plt Count 219, MPV 11.2, Immature Gran % (Auto) 0.400, Neut % (Auto) 57.7, Lymph % (Auto) 31.4, [place] % (Auto) 7.5, Eos % (Auto) 2.3, Baso % (Auto) 0.7, Absolute Neuts (auto) 5.2, Absolute Lymphs (auto) 2.82, Nucleated RBC % 0, Sodium 136, Potassium 4.1, Chloride 109 H, Carbon Dioxide 21.0, Anion Gap 6, BUN 39 H, Creatinine 0.99, Estim Creat Clear Calc 72.87, Est GFR (MDRD) Af Amer 74, Est GFR (MDRD) Non-Af 61, BUN/Creatinine Ratio 39.3 H, Glucose 212 H, Calcium 9.3 09/09/23 11:19: POC Glucose 297 H Micro: Microbiology 02/25/24 14:40 Urine, Clean Catch Urine Culture - Final Escherichia coli Physical Exam Const alert, oriented x3 and no apparent distress Constitutional Narrative: obese General Appearance: cooperative and well developed HEENT normocephalic, head/scalp atraumatic, moist oral mucous membranes and oropharynx normal Eyes PERRL and EOMs intact bilaterally Neck no lymphadenopathy and supple Lymph Lymphatic: no lymphadenopathy noted and no lymphedema noted Resp normal respiratory effort, normal air movement and clear to auscultation bilaterally Cardio regular rate, regular rhythm, S1 normal heart sound, S2 normal heart sound and no murmurs GI normal to inspection, nondistended, normoactive bowel sounds, soft to palpation, non-tender and non-distended Extremity normal capillary refill, no clubbing, cyanosis or edema and no calf tenderness Skin General Skin Exam: no breakdown Neuro CN's II-XII intact bilaterally, no focal motor deficits, no sensory deficits noted and deep tendon reflexes 2+ bilaterally Motor Exam: strength 5/5 throughout and general weakness Psych thought process normal and cooperative Appearance: appropriate Assessment & Plan Assessment/Plan (1) Recurrent falls: (2) Generalized weakness: PLAN: Plan #Debility due to recurrent falls * came in with several falls. She had an MRI of the brain in July 2023 which showed focal areas of white matter signal hyperintensity and findings consistent with a demyelinating process/multiple sclerosis with an area of acute demyelination in the right frontal lobe. * States she was told about 12 years ago that she had these brain lesions but told that they are not MS. She may benefit from neurology follow-up on outpatient basis. * PT/OT consult * fall precautions * neurology consulted and reviewed patient; neurology recommends increasing carbamazepine ER to 200mg AM and 300mg pm. Neurology recommends she follows up with neuroimmunology * #UTI * urinalysis showed 1+ bacteria. Get urine culture * urine culture grew E coli, >100,000 * will place on PO omnicef 300mg bid x 5 days * #History of seizures: on carbamazepine. #Hyperlipidemia: on statin. Type 2 diabetes mellitus: On Lantus 16 units daily. Switched to lantus 16 units bid which is what patient says she takes at home. Insulin sliding scale. Accu- Cheks ACHS. On ozempic. #Hypotension: On midodrine #History of migraines: On Nuedexta and Fioricet. DVT Prophylaxis; SCDs Disposition: still Awaiting placement. Charges/Coding Visit Charges Inpatient E&M: 31101 Subs Hosp L2
--- NOTE | 2023-09-09 13:22 | CASEMGMT ---
JAYA called Kasi Rosado with Department of DD and asked about the status of patient's level II. Kasi asked when patient is ready for discharge. JAYA let Kasi know patient is ready. Kasi said he will work on patient's rule out today. JAYA thanked Kasi for his help. JAYA spoke with patient and updated her on the situation. Joselin Wilkerson MSW RAVIN
[2023-09-09 16:00] VITALS: BP 108/57; PULSE 57; RESP 16; TEMP 36.6; O2SAT 96
[2023-09-09 16:28] LABS: Bedside Glucose 392 mg/dL (74-106)
--- NOTE | 2023-09-09 16:30 | CASEMGMT ---
Social Work - Discharge Planning Level II [place] PASRR screen back and ruled out. Copy made and placed on chart for patient's medical record. Copy placed into the packet to be sent with patinet to the nursing facility. Spoke with military aircraft designer who will backline provider about necessary paperwork being back and that patient may admit to the SNF when ready. -СВЕТЛАНА Wayne
[2023-09-09] MEDS: hydrOXYzine PAM 25 MG Capsule PO (20:36)
[2023-09-09] MEDS: Gabapentin 800 MG Tablet PO (20:37)
[2023-09-09] MEDS: carBAMazepine 200 MG Tablet 300 MG PO (20:39)
[2023-09-09] MEDS: Atorvastatin Calcium 80 MG Tablet PO (20:41)
[2023-09-09 21:06] LABS: Bedside Glucose 295 mg/dL (74-106)
[2023-09-09 21:07] LABS: Bedside Glucose 399 mg/dL (74-106)
[2023-09-09 21:07] LABS: Bedside Glucose 441 mg/dL (74-106)
[2023-09-09 22:00] VITALS: BP 124/59; PULSE 55; RESP 16; TEMP 35.8; O2SAT 100
[2023-09-10 04:00] VITALS: BP 122/55; PULSE 55; RESP 16; TEMP 36.3; O2SAT 100
[2023-09-10] MEDS: Insulin Lispro 100 UNIT/ML INSULN.PEN SC ×3 (05:38→13:55)
[2023-09-10 05:57] LABS: Bedside Glucose 194 mg/dL (74-106)
[2023-09-10 08:08] VITALS: BP 98/60; PULSE 52; RESP 16; TEMP 36.4; O2SAT 97
[2023-09-10] MEDS: Gabapentin 100 MG Capsule 200 MG PO ×2 (08:12→11:09)
[2023-09-10] MEDS: Acetaminophen/Butalbital/Caffe 1 Tablet PO (08:12)
[2023-09-10] MEDS: proMETHazine 25 MG Tablet PO (08:12)
[2023-09-10] MEDS: Pantoprazole Sodium 40 MG Tablet PO (08:13)
[2023-09-10] MEDS: Docusate Sodium 100 MG Capsule PO (08:13)
[2023-09-10] MEDS: Furosemide 40 MG Tablet PO (08:13)
[2023-09-10] MEDS: DULoxetine Hcl 60 MG Capsule PO (08:13)
[2023-09-10] MEDS: Midodrine HCl 5 MG Tablet 10 MG PO ×2 (08:13→11:09)
[2023-09-10] MEDS: Meclizine HCl 25 MG Tablet PO (08:14)
[2023-09-10] MEDS: Potassium Chloride Oral Tablet 10 MEQ PO (08:14)
[2023-09-10] MEDS: Vitamin B Comp W-C Capsule 1 CAP PO (08:14)
[2023-09-10] MEDS: Cefdinir 300 MG Capsule PO (08:15)
[2023-09-10] MEDS: 0.9% Saline Lock 10 ML Syringe IV (08:15)
[2023-09-10] MEDS: Topiramate 200 MG Tablet PO (08:15)
[2023-09-10] MEDS: Insulin Glargine-YFGN 100 UNIT/ML Pen 24 UNIT SC (08:19)
[2023-09-10] MEDS: carBAMazepine 200 MG Tablet PO (09:58)
--- NOTE | 2023-09-10 10:44 | PCM.DC.SUM ---
Providers Date of Admission: 09/04/23 Date of Discharge: 09/10/23 Primary Care Physician: Dr. Vi Eng, DO Consultations 09/05/23 09:08 Consult: Tele-Neurology Routine Consulting Provider: [facility] Reason for Consult: frequent falls, demyelinating disease EMERGENT Consult: No MD Notified: Yes Date Notified: 09/05/23 Time Notified: 09:08 Method of Notification: [facility] Staff Notify [facility] of Tele-Neurology Consult: Yes 09/05/23 10:56 Neurology [Consult: Tele-Neurology] Routine Consulting Provider: [facility] Reason for Consult: weakness and mechanical fall; brain lesions on MRI concerning for MS EMERGENT Consult: No MD Notified: Yes Date Notified: 09/05/23 Time Notified: 09:10 Method of Notification: [facility] Staff Notify [facility] of Tele-Neurology Consult: Yes Reason For Visit: FREQUENT FALLS, DEBILITY Diagnosis Discharge Diagnosis (1) Recurrent falls: Status: Acute Code(s): R29.6 - Repeated falls (2) Generalized weakness: Status: Acute Code(s): R53.1 - Weakness Plan #Debility due to recurrent falls came in with several falls. She had an MRI of the brain in July 2023 which showed focal areas of white matter signal hyperintensity and findings consistent with a demyelinating process/multiple sclerosis with an area of acute demyelination in the right frontal lobe. States she was told about 12 years ago that she had these brain lesions but told that they are not MS. She may benefit from neurology follow-up on outpatient basis. PT/OT consult fall precautions neurology consulted and reviewed patient; neurology recommends increasing carbamazepine ER to 200mg AM and 300mg pm. Neurology recommends she follows up with neuroimmunology #UTI urinalysis showed 1+ bacteria. Get urine culture urine culture grew E coli, >100,[address] on PO omnicef 300mg bid x 5 days #History of seizures: on carbamazepine. #Hyperlipidemia: on statin. Type 2 diabetes mellitus: On Lantus 16 units daily. Switched to lantus 16 units bid which is what patient says she takes at home. Insulin sliding scale. Accu-Cheks ACHS. On ozempic. #Hypotension: On midodrine #History of migraines: On Nuedexta and Fioricet. DVT Prophylaxis; SCDs Disposition: still Awaiting placement. Medications at Discharge Home Medications albuterol sulfate 90 mcg/actuation aerosol inhaler 2 puff inhalation Q6H PRN Wheezing 09/03/22 atorvastatin 80 mg tablet 80 mg PO QHS . 09/03/22 edkrdjpzsf-msjijwrdkwqxo-jqiwqlxr 50 mg-325 mg-40 mg tablet 1 tab PO Q6H PRN Headache 09/03/22 carbamazepine 200 mg tablet,extended release,12 hr 200 mg PO DAILY SEIZURE 09/03/22 diclofenac sodium 75 mg tablet,delayed release 75 mg PO BID PRN pain 09/03/22 docusate sodium 100 mg capsule 100 mg PO BID CONSTIPATION 09/03/22 ergocalciferol (vitamin D2) 1,250 mcg (50,000 unit) capsule 50,000 unit PO MO Check with primary doctor 09/03/22 flash glucose scanning reader ([employer] Es 2 [place]) 09/03/22 flash glucose sensor ([place] En[employer]roStyle Es 2 Sensor kit) 09/03/22 gabapentin 100 mg capsule 200 mg PO BID . 09/03/22 gabapentin 800 mg tablet 800 mg PO QHS PAIN 09/03/22 glucagon 1 mg injection kit mg Check with primary doctor 09/03/22 insulin syr/ndl U100 half shirley 0.5 mL 31 gauge x 5/16 (Droplet Insulin Syringe (half unit)) 09/03/22 omeprazole 40 mg capsule,delayed release 40 mg PO DAILY GERD 09/03/22 promethazine 25 mg tablet 25 mg PO Q6H PRN PRN Nausea #12 TABLETS 11/08/22 dextromethorphan 20 mg-quinidine 10 mg capsule (Nuedexta) 1 cap PO BID DEPRESSION 02/06/23 ubrogepant 100 mg tablet (Ubrelvy) 100 mg PO .COMPLEX PRN MIGRAINE 02/06/23 duloxetine 60 mg capsule,delayed release 60 mg PO BID . 05/31/23 insulin glargine 100 unit/mL (3 mL) subcutaneous pen 24 unit subcut BID DM 05/31/23 furosemide 20 mg tablet (Lasix) 40 mg PO DAILY EDEMA 07/29/23 semaglutide 0.25 mg or 0.5 mg (2 mg/3 mL) subcutaneous pen injector (Ozempic) 0.25 mg subcut QWEEK . 07/29/23 tizanidine 4 mg tablet 4 mg PO Q8H PRN muscle spasticity 07/29/23 galcanezumab-gnlm 120 mg/mL subcutaneous pen injector (Emgality Pen) 120 mg subcut .COMPLEX . 09/04/23 insulin lispro 100 unit/mL subcutaneous solution 1 sliding scale dose subcut ACHS DIABETES 09/04/23 meclizine 25 mg tablet 25 mg PO BID NAUSEA 09/04/23 midodrine 10 mg tablet 10 mg PO TID . 09/04/23 nystatin 100,000 unit/gram topical powder (Nyamyc) 1 applic topical BID RASH 09/04/23 potassium chloride 10 mEq tablet,extended release 20 meq PO DAILY SUPPLEMENT 09/04/23 topiramate 200 mg tablet 200 mg PO Q12H , 09/04/23 vitamin B complex 1 tab PO BID SUPPLEMENT 09/04/23 carbamazepine 100 mg tablet,extended release,12 hr 300 mg PO QHS SEIZURES 09/10/23 cefdinir 300 mg capsule 300 mg PO BID #3 caps 09/10/23 fluticasone propionate 220 mcg/actuation HFA aerosol inhaler 1 puff inhalation Q12H 09/10/23 hydroxyzine HCl 25 mg tablet 50 mg PO DAILY PRN itching 09/10/23 ipratropium 0.5 mg-albuterol 3 mg (2.5 mg base)/3 mL nebulization soln 3 ml inhalation Q6H PRN shortness of breath or wheezing 09/10/23 melatonin 5 mg capsule 5 mg PO QHS SLEEP 09/10/23 Hospital Course Operations None Procedures None Summary of Care Provided Minutes Spent on Discharge: 55 Hospital Course: FAM VINSON, is a 58 F with a PMH as outlined who presents via the ED On 09/04/2023 with a complaint of mechanical fall. Sh fell twice yeseday and once today. She uses a walker at home. SHe has had several falls and says she doesnt feel dizzy or lightheaded. She hit her head on te floor yesterday and believes she lost consciousness. REview of systems was otherwise negative. Vitals in the ED were temp of 98F, DE of 61, BP of 108/69,. RR of 14 and pulse ox of 99% on room air. CBC showed hemoglobin of 11.7 WBC of 8.9 and platelets of 254. Chemistry shows sodium of 140 with creatinine of 1.22 potassium of 4. Urinalysis showed 1+ bacteria and carbamazepine level was within normal limits at 8.1. She had had an MRI July 2023 which showed findings consistent with a demyelinating process/MS with an area of likely demyelination in the right frontal lobe. She was admitted to be managed for debility due to recurrent falls with concerns for multiple sclerosis. She worked with PT OT during the admission. Hospital course was complicated by UTI and she was started on p.o. cefdinir. She was skilled as needing further therapy. She was therefore discharged residential home on 09/10/2023. She is to follow-up with her primary care doctor within 1 to 2 weeks. Of note and neurology was consulted and they did not think that his symptoms were due to multiple sclerosis and thought it was likely due to just debility and weakness. Recommendation was for a Tegretol to be increased to 300 mg nightly and 200 mg in the morning. She was discharged on 09/10/2023 as stated. She was given a prescription for p.o. cefdinir to complete the 5-day course. Patient seen and examined prior to discharge. She had no active complaints and had an uneventful night. Review of symptoms otherwise negative. Labs and vitals reviewed. Home medication reviewed and reconciled. Physical Exam Const alert, oriented x3 and no apparent distress Constitutional Narrative: obese General Appearance: cooperative, comfortable, well kempt and well developed Orientation / Consciousness: awake HEENT normocephalic, head/scalp atraumatic, hearing grossly normal bilaterally, moist oral mucous membranes and oropharynx normal Mouth: oral and palatal mucosa normal Eyes PERRL and EOMs intact bilaterally Neck no lymphadenopathy and supple Lymph Lymphatic: no lymphadenopathy noted and no lymphedema noted Resp normal respiratory effort, normal air movement and clear to auscultation bilaterally Cardio regular rate, regular rhythm, S1 normal heart sound, S2 normal heart sound and no murmurs GI normal to inspection, nondistended, normoactive bowel sounds, soft to palpation, non-tender and non-distended Extremity normal to inspection, full ROM, normal capillary refill, no clubbing, cyanosis or edema and no calf tenderness Skin no rashes or lesions noted General Skin Exam: no breakdown Neuro oriented x3, CN's II-XII intact bilaterally, moves all extremities, no focal motor deficits, no sensory deficits noted and deep tendon reflexes 2+ bilaterally Sensorium / Orientation: awake and alert Motor Exam: strength 5/5 throughout and general weakness Psych thought process normal and cooperative Appearance: appropriate Weight / BMI Weight Weight: 209 lb 10.554 oz Body Mass Index (BMI) 33.8 ABG / Lab / Microbiology Data 09/09/23 08:10 09/09/23 08:10 Laboratory: Laboratory Results - last 24 hr 09/08/23 20:51: POC Glucose 441 H 09/08/23 20:53: POC Glucose 399 H 09/09/23 11:19: POC Glucose 297 H 09/09/23 15:57: POC Glucose 392 H 09/09/23 20:36: POC Glucose 295 H 09/10/23 05:37: POC Glucose 194 H Microbiology: Microbiology 09/05/23 14:40 Urine, Clean Catch Urine Culture - Final Escherichia coli D/C Instructions Discharge Diet: Low fat / Low cholesterol Discharge Activity: Return to Normal Activity Weight Bearing Status: Weight bearing as tolerated Call your doctor if you observe: Fever of 101 or Higher Meaningful Use Info Meaningful Use Diagnoses (Choose all that apply): None applicable Discharge Plan Admission Admit Date/Time: 09/04/23 13:29 Primary Reason for Your Visit: debililty, weakness, mechanical falls Attending Provider: Sugar Lomax Primary Care Provider: Vi Eng Instructions Patient Instructions: ED Mechanical Fall Discharge Orders/Prescriptions Prescriptions: New cefdinir 300 mg capsule 300 mg PO BID Qty: 3 0RF Continued atorvastatin 80 mg tablet 80 mg PO QHS Patient Comments: TAKE ONE TABLET BY MOUTH DAILY AT 9PM AT BEDTIME wmnbnlcjah-fklfqujdgmpmo-zgki 50-325-40 mg Tablet 1 tab PO Q6H PRN (Reason: Headache) glucagon 1 mg Kit Hold Instructions: Pt is ill omeprazole 40 mg capsule,delayed release(DR/EC) 40 mg PO DAILY Patient Comments: TAKE ONE CAPSULE BY MOUTH DAILY AT 9AM gabapentin 800 mg tablet 800 mg PO QHS Patient Comments: TAKE ONE TABLET BY MOUTH DAILY AT 9PM AT BEDTIME carbamazepine 200 mg tablet extended release 12 hr 200 mg PO DAILY Rx Instructions: TAKES IN THE MORNING docusate sodium 100 mg Capsule 100 mg PO BID diclofenac sodium 75 mg tablet,delayed release (DR/EC) 75 mg PO BID PRN (Reason: pain) Patient Comments: TAKE ONE TABLET BY MOUTH TWICE DAILY NEEDED (VIAL) gabapentin 100 mg Capsule 200 mg PO BID Rx Instructions: MORNING AND NOON albuterol sulfate 90 mcg/actuation HFA aerosol inhaler 2 puff INHALATION Q6H PRN (Reason: Wheezing) Patient Comments: INHALE TWO PUFFS BY MOUTH DIRECTED EVERY 6 HOURS NEEDED FOR WHEEZING OR FOR SHORTNESS OF BREATH (BULK) (DME) FreeStyle Es 2 Sensor Kit MISCELLANEOUS Patient Comments: apply 1 SENSOR to back OF UPPER ARM REMOVE AND REPLACE every 14 d... (REFER TO PRESCRIPTION NOTES). (DME) FreeStyle Es 2 [place] Misc MISCELLANEOUS Patient Comments: USE CONTINUOUSLY TO MONITOR BLOOD SUGARS DAILY (DME) Droplet Insulin Syr(half unit) 0.5 mL 31 gauge x 5/16 syringe MISCELLANEOUS Patient Comments: USE TO INJECT INSULIN UNDER THE SKIN EVERY MEAL AND AT BEDTIME PER SLIDING SCALE ergocalciferol (vitamin D2) 1,250 mcg (50,000 unit) capsule 50,000 unit PO MO Patient Comments: TAKE 1 CAPSULE BY MOUTH EVERY WEDNESDAY AT 9AM Rx Instructions: takes on mondays promethazine 25 mg tablet 25 mg PO Q6H PRN PRN (Reason: Nausea) Qty: 12 0RF insulin glargine 100 unit/mL (3 mL) insulin pen 24 unit SUBCUT BID duloxetine 60 mg capsule,delayed release(DR/EC) 60 mg PO BID Patient Comments: TAKE ONE CAPSULE BY MOUTH TWICE DAILY Nuedexta 20-10 mg capsule 1 cap PO BID Ubrelvy 100 mg tablet 100 mg PO .COMPLEX PRN (Reason: MIGRAINE) Rx Instructions: TAKE 1 TABLET BY MOUTH AT ONSET OF MIGRAINE. IF NO IMPROVEMENT WITHIN 2 HRS TAKE 1 TABLET. DO NOT EXCEED 2 TABS IN 24 HOURS furosemide [Lasix] 20 mg tablet 40 mg PO DAILY Ozempic 0.25 mg or 0.5 mg (2 mg/3 mL) pen injector 0.25 mg SUBCUT QWEEK Patient Comments: INJECT 0.25 MG SUBCUTANEOUSLY ONCE A WEEK Rx Instructions: WEDNESDAY tizanidine 4 mg tablet 4 mg PO Q8H PRN (Reason: muscle spasticity) Patient Comments: TAKE ONE TABLET BY MOUTH EVERY 8 HOURS NEEDED (VIAL) Emgality Pen 120 mg/mL pen injector 120 mg SUBCUT .COMPLEX Patient Comments: INJECT 1 ML (120MG TOTAL) UNDER THE SKIN EVERY 28 DAYS (BULK) Rx Instructions: 120 mg subcutaneously Q28D; insulin lispro 100 unit/mL solution 1 sliding scale dose subcut ACHS Rx Instructions: INJECT PER SLIDING SCALE THREE TIMES DAILY FOLLOWS ONE UNIT IF BG LESS THAN 110, TWO UNITS FOR BG 111-150, FOUR UNITS FOR BG 151-200, SEVEN UNITS FOR BG 201-250, 10 UNITS FOR BG 251-300, 13 UNITS FOR BG 301-350, 16 UNITS FOR BG 351-400, CALL MD IF BG OVER 400 (MAX 48 UNITS PER DAY) meclizine 25 mg tablet 25 mg PO BID Patient Comments: TAKE ONE TABLET BY MOUTH BID midodrine 10 mg tablet 10 mg PO TID Patient Comments: take 1 tablet by mouth three times a day potassium chloride 10 mEq tablet extended release 20 meq PO DAILY nystatin [Nyamyc] 100,000 unit/gram powder 1 applic TOPICAL BID Patient Comments: apply to affected area twice a day if needed topiramate 200 mg tablet 200 mg PO Q12H Patient Comments: TAKE ONE TABLET BY MOUTH TWICE DAILY (VIAL) vitamin B complex Tablet 1 tab PO BID carbamazepine 100 mg tablet extended release 12 hr 300 mg PO QHS fluticasone propionate 220 mcg/actuation HFA aerosol inhaler 1 puff inhalation Q12H Rx Instructions: RINSE MOUTH AFTER EACH USE hydroxyzine HCl 25 mg tablet 50 mg PO DAILY PRN (Reason: itching) ipratropium-albuterol 0.5 mg-3 mg(2.5 mg base)/3 mL solution for nebulization 3 ml inhalation Q6H PRN (Reason: shortness of breath or wheezing) melatonin 5 mg capsule 5 mg PO QHS Referrals / Follow Up: Vi Eng DO [Primary Care Provider] - Within 1 Week Disposition Disposition (needs filled in before D/C Order can be placed): Long Term Facility Charges/Coding Visit Charges Inpatient E&M: 74055 Disch Hosp >30min
--- NOTE | 2023-09-10 10:45 | TREXTCAR_ITS ---
Diet Diet Order/Speech Therapy: 09/04/23 14:17 Diet: Consistent Carb - Calorie Controlled Food consistency:: Regular Liquid Consistency:: Regular/Thin How many daily calories?: 1800 calorie Routine Orders/Code Status Enema Type: Fleetz Enema Frequency: Daily PRN Suppository Type: Dulcolax 10mg Suppository Frequency: Daily PRN O2 Frequency: PRN Keep PO Greater than or Equal to (%): 90 Therapies Weight Bearing: Weight bearing as tolerated Physical Therapy: Eval and Treat Occupational Therapy: Eval and Treat Problem/Diagnosis (1) Recurrent falls: Status: Acute Code(s): R29.6 - Repeated falls (2) Generalized weakness: Status: Acute Code(s): R53.1 - Weakness Plan #Debility due to recurrent falls * came in with several falls. She had an MRI of the brain in July 2023 which showed focal areas of white matter signal hyperintensity and findings consistent with a demyelinating process/multiple sclerosis with an area of acute demyelination in the right frontal lobe. * States she was told about 12 years ago that she had these brain lesions but told that they are not MS. She may benefit from neurology follow-up on outpatient basis. * PT/OT consult * fall precautions * neurology consulted and reviewed patient; neurology recommends increasing carbamazepine ER to 200mg AM and 300mg pm. Neurology recommends she follows up with neuroimmunology * #UTI * urinalysis showed 1+ bacteria. Get urine culture * urine culture grew E coli, >100,000 * will place on PO omnicef 300mg bid x 5 days * #History of seizures: on carbamazepine. #Hyperlipidemia: on statin. Type 2 diabetes mellitus: On Lantus 16 units daily. Switched to lantus 16 units bid which is what patient says she takes at home. Insulin sliding scale. Accu- Cheks ACHS. On ozempic. #Hypotension: On midodrine #History of migraines: On Nuedexta and Fioricet. DVT Prophylaxis; SCDs Disposition: still Awaiting placement. Allergies/Procedures Done in Hospital Allergies latex Allergy (Verified 09/04/23 11:21) Rash levofloxacin [From Levaquin] Allergy (Verified 09/04/23 11:21) Hives ondansetron [From Zofran] Allergy (Verified 09/04/23 11:21) Hives nalbuphine [From Nubain] Adverse Reaction (Verified 09/04/23 11:21) Other Procedures: None Type of Care/Length of Stay Estimated LOS: Convalescent Care Less Than 30 days Type of Care Needed: Skilled Rehab Potential: Fair Prognosis: Fair Additional Orders/Day of Discharge Day of Discharge: 09/10/23 Discharge Plan Admission Admit Date/Time: 09/04/23 13:29 Primary Reason for Your Visit: debililty, weakness, mechanical falls Attending Provider: Sugar Lomax Primary Care Provider: Vi Eng Instructions Patient Instructions: ED Mechanical Fall Discharge Orders/Prescriptions Prescriptions: Continued atorvastatin 80 mg tablet 80 mg PO QHS Patient Comments: TAKE ONE TABLET BY MOUTH DAILY AT 9PM AT BEDTIME wotcgfzaok-rmifawvatnuao-kpim 50-325-40 mg Tablet 1 tab PO Q6H PRN (Reason: Headache) glucagon 1 mg Kit Hold Instructions: Pt is ill omeprazole 40 mg capsule,delayed release(DR/EC) 40 mg PO DAILY Patient Comments: TAKE ONE CAPSULE BY MOUTH DAILY AT 9AM gabapentin 800 mg tablet 800 mg PO QHS Patient Comments: TAKE ONE TABLET BY MOUTH DAILY AT 9PM AT BEDTIME carbamazepine 200 mg tablet extended release 12 hr 200 mg PO DAILY Rx Instructions: TAKES IN THE MORNING docusate sodium 100 mg Capsule 100 mg PO BID diclofenac sodium 75 mg tablet,delayed release (DR/EC) 75 mg PO BID PRN (Reason: pain) Patient Comments: TAKE ONE TABLET BY MOUTH TWICE DAILY NEEDED (VIAL) gabapentin 100 mg Capsule 200 mg PO BID Rx Instructions: MORNING AND NOON albuterol sulfate 90 mcg/actuation HFA aerosol inhaler 2 puff INHALATION Q6H PRN (Reason: Wheezing) Patient Comments: INHALE TWO PUFFS BY MOUTH DIRECTED EVERY 6 HOURS NEEDED FOR WHEEZING OR FOR SHORTNESS OF BREATH (BULK) (DME) FreeStyle Es 2 Sensor Kit MISCELLANEOUS Patient Comments: apply 1 SENSOR to back OF UPPER ARM REMOVE AND REPLACE every 14 d... (REFER TO PRESCRIPTION NOTES). (DME) FreeStyle Es 2 [place] Misc MISCELLANEOUS Patient Comments: USE CONTINUOUSLY TO MONITOR BLOOD SUGARS DAILY (DME) Droplet Insulin Syr(half unit) 0.5 mL 31 gauge x 5/16 syringe MISCELLANEOUS Patient Comments: USE TO INJECT INSULIN UNDER THE SKIN EVERY MEAL AND AT BEDTIME PER SLIDING SCALE ergocalciferol (vitamin D2) 1,250 mcg (50,000 unit) capsule 50,000 unit PO MO Patient Comments: TAKE 1 CAPSULE BY MOUTH EVERY WEDNESDAY AT 9AM Rx Instructions: takes on mondays promethazine 25 mg tablet 25 mg PO Q6H PRN PRN (Reason: Nausea) Qty: 12 0RF insulin glargine 100 unit/mL (3 mL) insulin pen 24 unit SUBCUT BID duloxetine 60 mg capsule,delayed release(DR/EC) 60 mg PO BID Patient Comments: TAKE ONE CAPSULE BY MOUTH TWICE DAILY Nuedexta 20-10 mg capsule 1 cap PO BID Ubrelvy 100 mg tablet 100 mg PO .COMPLEX PRN (Reason: MIGRAINE) Rx Instructions: TAKE 1 TABLET BY MOUTH AT ONSET OF MIGRAINE. IF NO IMPROVEMENT WITHIN 2 HRS TAKE 1 TABLET. DO NOT EXCEED 2 TABS IN 24 HOURS furosemide [Lasix] 20 mg tablet 40 mg PO DAILY Ozempic 0.25 mg or 0.5 mg (2 mg/3 mL) pen injector 0.25 mg SUBCUT QWEEK Patient Comments: INJECT 0.25 MG SUBCUTANEOUSLY ONCE A WEEK Rx Instructions: WEDNESDAY tizanidine 4 mg tablet 4 mg PO Q8H PRN (Reason: muscle spasticity) Patient Comments: TAKE ONE TABLET BY MOUTH EVERY 8 HOURS NEEDED (VIAL) Emgality Pen 120 mg/mL pen injector 120 mg SUBCUT .COMPLEX Patient Comments: INJECT 1 ML (120MG TOTAL) UNDER THE SKIN EVERY 28 DAYS (BULK) Rx Instructions: 120 mg subcutaneously Q28D; insulin lispro 100 unit/mL solution 1 sliding scale dose subcut ACHS Rx Instructions: INJECT PER SLIDING SCALE THREE TIMES DAILY FOLLOWS ONE UNIT IF BG LESS THAN 110, TWO UNITS FOR BG 111-150, FOUR UNITS FOR BG 151-200, SEVEN UNITS FOR BG 201-250, 10 UNITS FOR BG 251-300, 13 UNITS FOR BG 301-350, 16 UNITS FOR BG 351-400, CALL MD IF BG OVER 400 (MAX 48 UNITS PER DAY) meclizine 25 mg tablet 25 mg PO BID Patient Comments: TAKE ONE TABLET BY MOUTH BID midodrine 10 mg tablet 10 mg PO TID Patient Comments: take 1 tablet by mouth three times a day potassium chloride 10 mEq tablet extended release 20 meq PO DAILY nystatin [Nyamyc] 100,000 unit/gram powder 1 applic TOPICAL BID Patient Comments: apply to affected area twice a day if needed topiramate 200 mg tablet 200 mg PO Q12H Patient Comments: TAKE ONE TABLET BY MOUTH TWICE DAILY (VIAL) vitamin B complex Tablet 1 tab PO BID carbamazepine 100 mg tablet extended release 12 hr 300 mg PO QHS fluticasone propionate 220 mcg/actuation HFA aerosol inhaler 1 puff inhalation Q12H Rx Instructions: RINSE MOUTH AFTER EACH USE hydroxyzine HCl 25 mg tablet 50 mg PO DAILY PRN (Reason: itching) ipratropium-albuterol 0.5 mg-3 mg(2.5 mg base)/3 mL solution for nebulization 3 ml inhalation Q6H PRN (Reason: shortness of breath or wheezing) melatonin 5 mg capsule 5 mg PO QHS Referrals / Follow Up: Vi Eng DO [Primary Care Provider] - Within 1 Week Disposition Disposition (needs filled in before D/C Order can be placed): Intermediate Facility Charges/Coding Visit Charges Inpatient E&M: 05233 Disch Hosp >30min
[2023-09-10 11:30] LABS: Bedside Glucose 284 mg/dL (74-106)
--- NOTE | 2023-09-10 11:36 | PHA.DC_ITS ---
Pharmacy [place] Med Reconciliation Pharmacy Service has performed discharge medication reconciliation for this patient upon transfer to SNF. The patient's discharge medication list was reviewed for discrepancies and discrepancies were resolved. Medications at Discharge Home Medications albuterol sulfate 90 mcg/actuation aerosol inhaler 2 puff inhalation Q6H PRN Wheezing 09/03/22 atorvastatin 80 mg tablet 80 mg PO QHS . 09/03/22 viipnvpkks-fbommwctjwyos-ozssgnaa 50 mg-325 mg-40 mg tablet 1 tab PO Q6H PRN Headache 09/03/22 carbamazepine 200 mg tablet,extended release,12 hr 200 mg PO DAILY SEIZURE 09/03/22 diclofenac sodium 75 mg tablet,delayed release 75 mg PO BID PRN pain 09/03/22 docusate sodium 100 mg capsule 100 mg PO BID CONSTIPATION 09/03/22 ergocalciferol (vitamin D2) 1,250 mcg (50,000 unit) capsule 50,000 unit PO MO Check with primary doctor 09/03/22 flash glucose scanning reader ([employer]Style Es 2 [place]) 09/03/22 flash glucose sensor (FreeStyle Es 2 Sensor kit) 09/03/22 gabapentin 100 mg capsule 200 mg PO BID . 09/03/22 gabapentin 800 mg tablet 800 mg PO QHS PAIN 09/03/22 glucagon 1 mg injection kit mg Check with primary doctor 09/03/22 insulin syr/ndl U100 half shirley 0.5 mL 31 gauge x 5/16 (Droplet Insulin Syringe (half unit)) 09/03/22 omeprazole 40 mg capsule,delayed release 40 mg PO DAILY GERD 09/03/22 promethazine 25 mg tablet 25 mg PO Q6H PRN PRN Nausea #12 TABLETS 11/08/22 dextromethorphan 20 mg-quinidine 10 mg capsule (Nuedexta) 1 cap PO BID DEPRESSION 02/06/23 ubrogepant 100 mg tablet (Ubrelvy) 100 mg PO .COMPLEX PRN MIGRAINE 02/06/23 duloxetine 60 mg capsule,delayed release 60 mg PO BID . 05/31/23 insulin glargine 100 unit/mL (3 mL) subcutaneous pen 24 unit subcut BID DM 05/31/23 furosemide 20 mg tablet (Lasix) 40 mg PO DAILY EDEMA 07/29/23 semaglutide 0.25 mg or 0.5 mg (2 mg/3 mL) subcutaneous pen injector (Ozempic) 0.25 mg subcut QWEEK . 07/29/23 tizanidine 4 mg tablet 4 mg PO Q8H PRN muscle spasticity 07/29/23 galcanezumab-gnlm 120 mg/mL subcutaneous pen injector (Emgality Pen) 120 mg subcut .COMPLEX . 09/04/23 insulin lispro 100 unit/mL subcutaneous solution 1 sliding scale dose subcut ACHS DIABETES 09/04/23 meclizine 25 mg tablet 25 mg PO BID NAUSEA 09/04/23 midodrine 10 mg tablet 10 mg PO TID . 09/04/23 nystatin 100,000 unit/gram topical powder (Nyamyc) 1 applic topical BID RASH 09/04/23 potassium chloride 10 mEq tablet,extended release 20 meq PO DAILY SUPPLEMENT 09/04/23 topiramate 200 mg tablet 200 mg PO Q12H , 09/04/23 vitamin B complex 1 tab PO BID SUPPLEMENT 09/04/23 carbamazepine 100 mg tablet,extended release,12 hr 300 mg PO QHS SEIZURES 09/10/23 fluticasone propionate 220 mcg/actuation HFA aerosol inhaler 1 puff inhalation Q12H 09/10/23 hydroxyzine HCl 25 mg tablet 50 mg PO DAILY PRN itching 09/10/23 ipratropium 0.5 mg-albuterol 3 mg (2.5 mg base)/3 mL nebulization soln 3 ml inh alation Q6H PRN shortness of breath or wheezing 09/10/23 melatonin 5 mg capsule 5 mg PO QHS SLEEP 09/10/23
[2023-09-10] MEDS: tiZANidine HCl 2 MG Tablet 4 MG PO (11:48)
--- NOTE | 2023-09-10 12:23 | CASEMGMT ---
Discharge Planning Discharge orders, signed med list, and transport time sent via careport to [facility]. Physicians will transport patient by wheelchair at 1:15p. Nursing, SW, and patient updated. Patient stated she will update her family. Michelle Pereyra, Discharge Planning Asst.
--- NOTE | 2023-09-10 13:14 | CASEMGMT ---
Social Work SW let [facility] know via [facility] that the updated med list will come over in the packet of paperwork. SHAHZAD Phillips
[2023-09-10 14:17] LABS: Bedside Glucose 340 mg/dL (74-106)
== END 2023-09-10 14:03 | disposition skilled nursing facility (03) ==
LOC: ED 13:11 → PCU 13:38
PROVIDERS: Physician Assistant; Admitting Provider Student in an Organized Health Care Education/Training Program; Emergency Provider Emergency Medicine; PCP Family Medicine; Visit Provider Student in an Organized Health Care Education/Training Program
DX: R29.6 Repeated falls (principal); G37.9 Demyelinating disease of central nervous system, unspecified; J44.9 Chronic obstructive pulmonary disease, unspecified; E11.65 Type 2 diabetes mellitus with hyperglycemia; G40.909 Epilepsy, unspecified, not intractable, without status epilepticus; Z79.4 Long term (current) use of insulin; Z87.891 Personal history of nicotine dependence; R53.81 Other malaise; G93.9 Disorder of brain, unspecified; I10 Essential (primary) hypertension; G43.909 Migraine, unspecified, not intractable, without status migrainosus; K21.9 Gastro-esophageal reflux disease without esophagitis; E78.00 Pure hypercholesterolemia, unspecified; L40.9 Psoriasis, unspecified; E66.9 Obesity, unspecified; M19.90 Unspecified osteoarthritis, unspecified site; Z68.34 Body mass index [BMI] 34.0-34.9, adult; Z79.899 Other long term (current) drug therapy; N39.0 Urinary tract infection, site not specified; I95.9 Hypotension, unspecified
CPT/HCPCS: 36415; 80048; 80156; 81001; 82962; 85025; 87086; 87088; 87186; 96360; 97110; 97162; 97166; 97530; 97535; 99221; 99284; J7040; A4216; G0378

== ENCOUNTER 2023-10-09 11:08 | Inpatient (IN) | payer MEDICARE, MEDICAID, SELFPAY ==
[2023-10-09] VITALS (15 sets, daily range): BP systolic 94–141; BP diastolic 56–68; PULSE 43–67; RESP 12–16; TEMP 36.1–36.8; O2SAT 94–100; BMI 34.8
--- NOTE | 2023-10-09 | APP_PTH ---
PATIENT: FAM VINSON LOC: [facility]3 U#:[id number] AGE/SX: 58/F ROOM: [facility] RE10/10/[address]: Dr. Murtaza Saldana MD : 1965 BED: 1 DIS: 10/11/2023 SPEC #: [id number] RECD: 10/11/23 12:58 STATUS: J CARLOS SANDOVAL #: [id number] PANCHO: 10/09/23 00:[address]: Murtaza Saldana DEPT: SURGICAL PATHOLOGY RECD BY: Reyes Edwards ENTERED: 10/11/23 12:59 SP TYPE: APPENDIX OTHR DR: Dr. Vi Eng, DO Tissues: Appendix, NOS Procedures: Surgery Specimen Level III HEADER OPERATION: Laparoscopic, Appendectomy PRE-OP DIAGNOSIS: Acute appendicitis TISSUE SUBMITTED: Appendix MICROSCOPIC DIAGNOSIS Appendix, appendectomy: Acute necrotizing appendicitis. Acute serositis. AM/mr 10/12/23 MICROSCOPIC DESCRIPTION Slides are reviewed. GROSS DESCRIPTION Received in fixative is one container labeled with the patient's name and designated appendix. The specimen consists of a C-shaped appendix measuring 7.5 cm in length and up to 1.0 cm in diameter. The attached periappendiceal adipose tissue measures up to 1.0 cm in thickness. The serosa is congested and hemorrhagic and covered in manriquez purulent. No obvious perforation is identified. The mucosa is congested and hemorrhagic. No fecalith is identified. Awake Overnight Monitor sections are submitted in two cassettes. / JEFF: 10/11/23 TC:2 CPT: 87995
--- NOTE | 2023-10-09 11:36 | CT_ITS ---
We are attempting to reach an attending provider to discuss findings. An addendum with communication details will be sent when the communication is complete. EXAM: CT ABDOMEN AND PELVIS WITH INTRAVENOUS CONTRAST CLINICAL INDICATION: possible bowel obstruction, RLQ pain TECHNIQUE: Helically acquired images were obtained of the abdomen and pelvis with intravenous contrast. This CT exam was performed using one or more of the following dose reduction techniques: automated exposure control, adjustment of the mA and/or kV according to patient size, and/or use of iterative reconstruction technique. CONTRAST: IV 100mL Isovue-300 COMPARISON: No relevant prior studies available. FINDINGS: LOWER THORAX: Normal. Lung bases are clear. No cardiomegaly. No pericardial effusion. ABDOMEN: LIVER: Normal. Homogeneous. No focal mass. GALLBLADDER AND BILE DUCTS: Cholecystectomy clips are in place. PANCREAS: Normal. No focal cystic or solid mass. SPLEEN: Spleen is top normal size. ADRENALS: Hypodense 2 cm left adrenal nodule possibly representing a lipid rich adenoma. Correlation with hormone levels recommended. KIDNEYS AND URETERS: Punctate stone noted within the lower pole of both kidneys. No hydronephrosis. STOMACH AND BOWEL: Moderate stool burden within the large bowel. No evidence of bowel obstruction. PELVIS: APPENDIX: Retrocecal appendix is enlarged measuring 13 mm in maximum diameter and associated with prominent amount of adjacent fat stranding consistent with acute appendicitis. No evidence of abscess or perforation. BLADDER: Normal. REPRODUCTIVE: Unremarkable as visualized. No mass. ABDOMEN and PELVIS: INTRAPERITONEAL SPACE: Normal. No ascites or other fluid collection. No free air. BONES/JOINTS: No suspicious lytic or blastic abnormality. SOFT TISSUES: See above. VASCULATURE: Normal. Abdominal aorta is non-dilated. LYMPH NODES: Normal. No enlarged lymph nodes. CT/Abdomen/Pelvis W IV Cont ONLY IMPRESSION: 1. Acute retrocecal appendicitis without evidence of abscess or perforation. 2. 2 cm left adrenal nodule. Recommend correlation with hormone levels. 3. Punctate bilateral renal stone. Electronically Signed: Zeus Ybarra MD at 13:15 EDT Reading Location ID and State: [facility] / [place] Tel , Service support ,
--- NOTE | 2023-10-09 11:48 | ED.VIS.GI ---
HPI <CLEMENTE Grant - Last Filed: 10/09/23 14:23> HPI - GI History of Present Illness Chief Complaint: Abd Pain Narrative Narrative: Patient presenting today with right lower quadrant abdominal pain that she has had over the past 4 days. She has also been nauseous and has had intermittent vomiting over the past 4 days. She reports that she has a history of constipation and has been more constipated than usual over the past several days, she is currently at [facility] receiving rehab due to her seizure disorder and recent frequent falls. She reports that they performed 2 abdominal x-rays that showed possible obstruction. She did have an enema early this morning which did allow for a small bowel movement, but she is still in a lot of pain. She denies any history of bowel obstruction. Previous abdominal surgeries include cholecystectomy. She denies fevers, chills, hematemesis, and urinary symptoms. [facility] <CLEMENTE Grant - Last Filed: 10/09/23 14:23> [facility] Medical History Allergic rhinitis Anxiety Brain TIA Chronic migraine COPD (chronic obstructive pulmonary disease) Depression Diabetes mellitus, type 2 Former smoker Former tobacco use Generalized weakness GERD (gastroesophageal reflux disease) History of CVA (cerebrovascular accident) HTN (hypertension) Hypercholesterolemia Migraines Multiple falls Obesity Orthostasis Psoriasis Recurrent falls Recurrent syncope Seizure disorder Transient hypotension Home Medications albuterol sulfate 90 mcg/actuation aerosol inhaler 2 puff inhalation Q6H PRN Wheezing 09/03/22 [History Last Taken 09/04/23] atorvastatin 80 mg tablet 80 mg PO QHS . 09/03/22 [History Last Taken 09/03/23] idamtnmbcc-aqmlbedzmgesl-pqbtolzj 50 mg-325 mg-40 mg tablet 1 tab PO Q6H PRN Headache 09/03/22 [History Last Taken 09/04/23] carbamazepine 200 mg tablet,extended release,12 hr 200 mg PO DAILY SEIZURE 09/03/22 [History Last Taken 09/04/23] diclofenac sodium 75 mg tablet,delayed release 75 mg PO BID PRN pain 09/03/22 [History Last Taken 09/04/23] docusate sodium 100 mg capsule 100 mg PO BID CONSTIPATION 09/03/22 [History Last Taken 09/03/23] ergocalciferol (vitamin D2) 1,250 mcg (50,000 unit) capsule 50,000 unit PO MO Check with primary doctor 09/03/22 [History Last Taken 08/30/23] flash glucose scanning reader (FreeStyle Es 2 [place]) 09/03/22 [History Last Taken Unknown] flash glucose sensor (FreeStyle Es 2 Sensor kit) 09/03/22 [History Last Taken Unknown] gabapentin 100 mg capsule 200 mg PO BID . 09/03/22 [History Last Taken 09/04/23] gabapentin 800 mg tablet 800 mg PO QHS PAIN 09/03/22 [History Last Taken 09/03/23] glucagon 1 mg injection kit mg Check with primary doctor 09/03/22 [History Last Taken Unknown] insulin syr/ndl U100 half shirley 0.5 mL 31 gauge x 5/16 (Droplet Insulin Syringe (half unit)) 09/03/22 [History Last Taken Unknown] omeprazole 40 mg capsule,delayed release 40 mg PO DAILY GERD 09/03/22 [History Last Taken 09/04/23] promethazine 25 mg tablet 25 mg PO Q6H PRN PRN Nausea #12 TABLETS 11/08/22 [Rx Last Taken 09/04/23] dextromethorphan 20 mg-quinidine 10 mg capsule (Nuedexta) 1 cap PO BID DEPRESSION 02/06/23 [History Last Taken 09/04/23] ubrogepant 100 mg tablet (Ubrelvy) 100 mg PO .COMPLEX PRN MIGRAINE 02/06/23 [History Last Taken 09/04/23] duloxetine 60 mg capsule,delayed release 60 mg PO BID . 05/31/23 [History Last Taken 09/04/23] insulin glargine 100 unit/mL (3 mL) subcutaneous pen 24 unit subcut BID DM 05/31/23 [History Last Taken 09/03/23] furosemide 20 mg tablet (Lasix) 40 mg PO DAILY EDEMA 07/29/23 [History Last Taken 09/04/23] semaglutide 0.25 mg or 0.5 mg (2 mg/3 mL) subcutaneous pen injector (Ozempic) 0.25 mg subcut QWEEK . 07/29/23 [History Last Taken 09/01/23] tizanidine 4 mg tablet 4 mg PO Q8H PRN muscle spasticity 07/29/23 [History Last Taken 09/04/23] galcanezumab-gnlm 120 mg/mL subcutaneous pen injector (Emgality Pen) 120 mg subcut .COMPLEX . 09/04/23 [History Last Taken 08/05/23] insulin lispro 100 unit/mL subcutaneous solution 1 sliding scale dose subcut ACHS DIABETES 09/04/23 [History Last Taken 09/04/23] meclizine 25 mg tablet 25 mg PO BID NAUSEA 09/04/23 [History Last Taken 09/04/23] midodrine 10 mg tablet 10 mg PO TID . 09/04/23 [History Last Taken 09/04/23] nystatin 100,000 unit/gram topical powder (Nyamyc) 1 applic topical BID RASH 09/04/23 [History Last Taken 09/04/23] potassium chloride 10 mEq tablet,extended release 20 meq PO DAILY SUPPLEMENT 09/04/23 [History Last Taken 09/04/23] topiramate 200 mg tablet 200 mg PO Q12H , 09/04/23 [History Last Taken 09/04/23] vitamin B complex 1 tab PO BID SUPPLEMENT 09/04/23 [History Last Taken 09/04/23] carbamazepine 100 mg tablet,extended release,12 hr 300 mg PO QHS SEIZURES 09/10/23 [History Last Taken Unknown] cefdinir 300 mg capsule 300 mg PO BID #3 caps 09/10/23 [Rx Last Taken Unknown] fluticasone propionate 220 mcg/actuation HFA aerosol inhaler 1 puff inhalation Q12H 09/10/23 [History Last Taken Unknown] hydroxyzine HCl 25 mg tablet 50 mg PO DAILY PRN itching 09/10/23 [History Last Taken Unknown] ipratropium 0.5 mg-albuterol 3 mg (2.5 mg base)/3 mL nebulization soln 3 ml inhalation Q6H PRN shortness of breath or wheezing 09/10/23 [History Last Taken Unknown] melatonin 5 mg capsule 5 mg PO QHS SLEEP 09/10/23 [History Last Taken Unknown] Allergy/AdvReac Type Severity Reaction Status Date / Time latex Allergy Rash Verified 10/09/23 11:09 levofloxacin [From Levaquin] Allergy Hives Verified 10/09/23 11:09 ondansetron [From Zofran] Allergy Hives Verified 10/09/23 11:09 nalbuphine [From Nubain] AdvReac Other Verified 10/09/23 11:09 Family History Father Cancer Mother Cancer Surgical History Hx of cholecystectomy Hx of tonsillectomy Hx of tubal ligation Social History household members: family and none housing: house Smoking Status: Former smoker alcohol intake: never substance use type: does not use ROS <CLEMENTE Grant - Last Filed: 10/09/23 14:23> ROS ED Constitutional Constitutional ED: Denies chills or fever(s) Cardiovascular Cardiovascular: Denies chest pain Respiratory/Chest Respiratory/Chest: Denies cough or dyspnea Gastrointestinal Gastrointestinal: Reports abdominal pain, constipation, nausea and vomiting Genitourinary Genitourinary ED: Denies dysuria, hematuria or urinary urgency Musculoskeletal Musculoskeletal: Denies arthralgias or myalgias Integumentary Denies rash Neurologic Neurologic: Denies weakness EXAM <CLEMENTE Grant - Last Filed: 10/09/23 14:23> Physical Exam Const Vital Signs: 10/09/23 11:09 Temperature 98.0 F Temperature Source Oral Pulse Rate 59 L Respiratory Rate 14 Blood Pressure 127/61 H Blood Pressure Mean 83 Pulse Ox 100 Oxygen Delivery Method Room Air Positive well nourished, well developed and no apparent distress General Appearance ED: well developed HEENT Reports normocephalic and head/scalp atraumatic Mouth ED: Yes moist mucous membranes normal Eyes PERRL and EOMs intact bilaterally Neck full ROM and supple Chest Wall inspection of chest normal Resp normal respiratory effort and clear to auscultation bilaterally Cardio regular rate and regular rhythm GI soft to palpation, non-distended and no masses GI Narrative: Tenderness to palpation to the right lower quadrant, patient does have guarding with palpation to the RLQ, no rigidity Auscultation: hypoactive bowel sounds Back/Spine normal ROM and normal to inspection Extremity normal to inspection and full ROM Neuro oriented x3, CN's II-XII intact bilaterally, moves all extremities, no focal motor deficits and no sensory deficits noted Sensorium / Orientation: awake and alert Psych mental status grossly normal and thought process normal Skin no rashes or lesions noted and no wounds <Dr. King Lambert MD - Last Filed: 10/09/23 15:37> Physical Exam Const Vital Signs: 10/09/23 11:09 Temperature 98.0 F Temperature Source Oral Pulse Rate 59 L Respiratory Rate 14 Blood Pressure 127/61 H Blood Pressure Mean 83 Pulse Ox 100 Oxygen Delivery Method Room Air MDM <CLEMENTE Grant - Last Filed: 10/09/23 14:23> [facility] Narrative Medical decision making narrative: Patient presenting today from [facility] with concerns for bowel obstruction after having 2 abdominal x-rays that showed possible obstruction. She was a longstanding history of constipation which has been worse recently despite 2 enemas that were performed this morning and yesterday. She does have tenderness to her RLQ and hypoactive bowel sounds. CT of the abdomen and pelvis will be obtained to rule out bowel obstruction, appendicitis, kidney stone, and other etiology. Labs will be obtained and she will be given IV fluids, morphine for pain, and Phenergan for nausea. CT scan does show appendicitis, general surgery was consulted and will be taking patient to the OR in stable condition. Lab Data Attestation: I reviewed the patient's lab results. Lab results narrative: H&H 11.6 and 36.1, potassium 3.4, BUN 22, creatinine 1.1, glucose 237 Labs: Laboratory Results - last 24 hr 10/09/23 11:35 WBC 7.1 RBC 4.00 L Hgb 11.6 L Hct 36.1 L MCV 90.3 MCH 29.0 MCHC 32.1 RDW Std Deviation 42.4 RDW Coeff of He 13.1 Plt Count 207 MPV 11.2 Immature Gran % (Auto) 1.100 H Neut % (Auto) 68.3 Lymph % (Auto) 22.3 Franklin % (Auto) 7.0 Eos % (Auto) 1.0 Baso % (Auto) 0.3 Absolute Neuts (auto) 4.8 Absolute Lymphs (auto) 1.57 Nucleated RBC % 0 Sodium 139 Potassium 3.4 L Chloride 106 Carbon Dioxide 25.0 Anion Gap 8 BUN 22 H Creatinine 1.11 H Estim Creat Clear Calc 66.01 Est GFR (MDRD) Af Amer 65 Est GFR (MDRD) Non-Af 54 L BUN/Creatinine Ratio 19.8 Glucose 237 H Calcium 9.3 Total Bilirubin 0.30 AST 32 ALT 50 Alkaline Phosphatase 139 H Total Protein 8.4 H Albumin 3.7 Globulin 4.7 H Albumin/Globulin Ratio 0.8 L Lipase 43 Radiography Diagnostic Testing: Clinical Impression(s) from Imaging Studies Abdomen/Pelvis CT 10/09/23 11:36 IMPRESSION: 1. Acute retrocecal appendicitis without evidence of abscess or perforation. 2. 2 cm left adrenal nodule. Recommend correlation with hormone levels. 3. Punctate bilateral renal stone. Electronically Signed: Zeus Ybarra MD at 13:15 EDT Reading Location ID and State: [facility] / [place] Tel , Service support , ADDENDUM: 10/09/23 1327 IMPRESSION: 1. Acute retrocecal appendicitis without evidence of abscess or perforation. 2. 2 cm left adrenal nodule. Recommend correlation with hormone levels. 3. Punctate bilateral renal stone. N.B. : The above Results were Read Back by Zeus Ybarra MD to Meeta Cash PA, and understanding confirmed on 10/09/2023 13:20:52 (ET). Electronically Signed: Zeus Ybarra MD at 13:15 EDT Reading Location ID and State: [facility] / [place] Tel , Service support , <Dr. King Lambert MD - Last Filed: 10/09/23 15:37> [facility] Lab Data Labs: Laboratory Results - last 24 hr 10/09/23 11:35 WBC 7.1 RBC 4.00 L Hgb 11.6 L Hct 36.1 L MCV 90.3 MCH 29.0 MCHC 32.1 RDW Std Deviation 42.4 RDW Coeff of He 13.1 Plt Count 207 MPV 11.2 Immature Gran % (Auto) 1.100 H Neut % (Auto) 68.3 Lymph % (Auto) 22.3 Franklin % (Auto) 7.0 Eos % (Auto) 1.0 Baso % (Auto) 0.3 Absolute Neuts (auto) 4.8 Absolute Lymphs (auto) 1.57 Nucleated RBC % 0 Sodium 139 Potassium 3.4 L Chloride 106 Carbon Dioxide 25.0 Anion Gap 8 BUN 22 H Creatinine 1.11 H Estim Creat Clear Calc 66.01 Est GFR (MDRD) Af Amer 65 Est GFR (MDRD) Non-Af 54 L BUN/Creatinine Ratio 19.8 Glucose 237 H Calcium 9.3 Total Bilirubin 0.30 AST 32 ALT 50 Alkaline Phosphatase 139 H Total Protein 8.4 H Albumin 3.7 Globulin 4.7 H Albumin/Globulin Ratio 0.8 L Lipase 43 Radiography Diagnostic Testing: Clinical Impression(s) from Imaging Studies Abdomen/Pelvis CT 10/09/23 11:36 IMPRESSION: 1. Acute retrocecal appendicitis without evidence of abscess or perforation. 2. 2 cm left adrenal nodule. Recommend correlation with hormone levels. 3. Punctate bilateral renal stone. Electronically Signed: Zeus Ybarra MD at 13:15 EDT , ADDENDUM: 10/09/23 1327 IMPRESSION: 1. Acute retrocecal appendicitis without evidence of abscess or perforation. 2. 2 cm left adrenal nodule. Recommend correlation with hormone levels. 3. Punctate bilateral renal stone. N.B. : The above Results were Read Back by Zeus Ybarra MD to Meeta Cash PA, and understanding confirmed on 10/09/2023 13:20:52 (ET). Electronically Signed: Zeus Ybarra MD at 13:15 EDT , Management Discussion w/another healthcare provider: [facility] (Shana surgery for acute appendicitis) Treatment and Re-Evaluation Comments:: I have personally performed a face to face assessment of the patient and have reviewed the FLYNN Note. I performed a substantive portion of the visit including all aspects of the following. My sexton findings include: History is patient estimates 3 to 4 days of gradual onset right lower quadrant pain, vomiting, she has been constipated for a long time, she is having trouble having bowel movements. An enema did not necessarily help. She had some x-rays at the assisted that showed possible bowel obstruction so she was sent in for further evaluation. Exam is very tender throughout the right lower quadrant, obesity limits exam. Otherwise benign abdomen no tenderness. She does have involuntary guarding her right lower quadrant no rebound tenderness. Medical Decison Making CT with IV contrast, labs to be obtained. Other additions or changes: CT images are reviewed as well as the report, agree that it shows acute appendicitis. Discussed with surgery, will go directly to the OR. Discharge Plan Dx/Rx/DC Orders Clinical Impression: Acute appendicitis Disposition Disposition: Acute Care Hospital [facility]
[2023-10-09 11:52] LABS: Absolute Lymphocyte Count 1.57 X10^3/uL (0.83-4.51); Absolute Neutrophil Count 4.8 X10^3/uL (2.0-7.7); Basophil# 0.02 X10^3/uL; Basophil% 0.3 % (0-1); Eosinophil# 0.07 X10^3/uL; Hematocrit 36.1 % (37-47); Hemoglobin 11.6 g/dL (12.0-15.0); Lymphocyte # 1.57 X10^3/ul (0.83-4.51); Lymphocyte % 22.3 % (19-41); Mean Corp Hgb Conc 32.1 g/dL (32-36); Mean Corpuscular Volume 90.3 fL (81-99); Mean Platelet Vol. 11.2 fl (6.2-12.0); Monocyte# 0.49 X10^3/uL; NRBC Flagged by Analyzer 0 % (0-5); Neutrophil # 4.82 X10^3/uL (2.7-7.7); Neutrophil % 68.3 % (47-70); Platelet Count 207 K/mm3 (150-450); RBC Distribution Width CV 13.1 % (11.6-14.6); RBC Distribution Width SD 42.4 fl (35.1-43.9); White Blood Count 7.1 K/mm3 (4.4-11.0)
[2023-10-09] MEDS: Morphine 4 MG/ML Syringe IV (11:59)
[2023-10-09] MEDS: 0.9% Normal Saline (1000mL) 1,000 ML 1000 ML IV (11:59)
[2023-10-09] MEDS: proMETHazine 25 MG/ML Syringe 12.5 MG IM (12:00)
[2023-10-09 12:05] LABS: ALB/GLOB Ratio 0.8 RATIO (0.9-2.4); AST(SGOT) 32 U/L (15-37); Alanine Aminotransfer ALT/SGPT 50 U/L (13-56); Albumin, Serum 3.7 g/dL (3.2-5.0); Alkaline Phosphatase 139 U/L (45-117); Anion Gap 8 (5-15); BUN 22 mg/dL (7-18); BUN/Creat Ratio 19.8 RATIO (10-20); Calcium,Total 9.3 mg/dL (8.5-10.1); Chloride 106 mmol/L (98-107); Creatinine, Serum 1.11 mg/dL (0.55-1.02); EST Glomerular Filtration Rate 54 mL/min (>60); Est Glom Filt Rate - Afr Amer 65 mL/min (>60); Estimated Creatinine Clearance 66.01 ml/min; Globulin 4.7 g/dL (2.2-4.2); Glucose 237 mg/dL (74-106); Lipase 43 U/L (13-75); Potassium 3.4 mmol/L (3.5-5.1); Protein, Total 8.4 g/dL (6.4-8.2); Sodium Level 139 mmol/L (136-145)
--- NOTE | 2023-10-09 13:21 | HP.PCM.SX_ITS ---
HPI - General HPI Narrative FAM VINSON, is a 58 F who presents with abdominal pain of 4 days. Patient also reports nausea and vomiting. She says she is constipated. She does not remember her last bowel movement. She reports that the pain has been in the right lower quadrant. She had does not radiate. PENDING SALE TO [facility] Medical History Allergic rhinitis Anxiety Brain TIA Chronic migraine COPD (chronic obstructive pulmonary disease) Depression Diabetes mellitus, type 2 Former smoker Former tobacco use Generalized weakness GERD (gastroesophageal reflux disease) History of CVA (cerebrovascular accident) HTN (hypertension) Hypercholesterolemia Migraines Multiple falls Obesity Orthostasis Psoriasis Recurrent falls Recurrent syncope Seizure disorder Transient hypotension Home Medications albuterol sulfate 90 mcg/actuation aerosol inhaler 2 puff inhalation Q6H PRN Wheezing 09/03/22 [History Last Taken 09/04/23] atorvastatin 80 mg tablet 80 mg PO QHS . 09/03/22 [History Last Taken 09/03/23] pkbeuchagc-ewvdeaoumnhhn-kqpaykwr 50 mg-325 mg-40 mg tablet 1 tab PO Q6H PRN Headache 09/03/22 [History Last Taken 09/04/23] carbamazepine 200 mg tablet,extended release,12 hr 200 mg PO DAILY SEIZURE 09/03/22 [History Last Taken 09/04/23] diclofenac sodium 75 mg tablet,delayed release 75 mg PO BID PRN pain 09/03/22 [History Last Taken 09/04/23] docusate sodium 100 mg capsule 100 mg PO BID CONSTIPATION 09/03/22 [History Last Taken 09/03/23] ergocalciferol (vitamin D2) 1,250 mcg (50,000 unit) capsule 50,000 unit PO MO Check with primary doctor 09/03/22 [History Last Taken 08/30/23] flash glucose scanning reader (ZventsStyle Es 2 [place]) 09/03/22 [History Last Taken Unknown] flash glucose sensor (FreeStyle Es 2 Sensor kit) 09/03/22 [History Last Taken Unknown] gabapentin 100 mg capsule 200 mg PO BID . 09/03/22 [History Last Taken 09/04/23] gabapentin 800 mg tablet 800 mg PO QHS PAIN 09/03/22 [History Last Taken 09/03/23] glucagon 1 mg injection kit mg Check with primary doctor 09/03/22 [History Last Taken Unknown] insulin syr/ndl U100 half shirley 0.5 mL 31 gauge x 5/16 (Droplet Insulin Syringe (half unit)) 09/03/22 [History Last Taken Unknown] omeprazole 40 mg capsule,delayed release 40 mg PO DAILY GERD 09/03/22 [History Last Taken 09/04/23] promethazine 25 mg tablet 25 mg PO Q6H PRN PRN Nausea #12 TABLETS 11/08/22 [Rx Last Taken 09/04/23] dextromethorphan 20 mg-quinidine 10 mg capsule (Nuedexta) 1 cap PO BID DEPRESSION 02/06/23 [History Last Taken 09/04/23] ubrogepant 100 mg tablet (Ubrelvy) 100 mg PO .COMPLEX PRN MIGRAINE 02/06/23 [History Last Taken 09/04/23] duloxetine 60 mg capsule,delayed release 60 mg PO BID . 05/31/23 [History Last Taken 09/04/23] insulin glargine 100 unit/mL (3 mL) subcutaneous pen 24 unit subcut BID DM 05/31/23 [History Last Taken 09/03/23] furosemide 20 mg tablet (Lasix) 40 mg PO DAILY EDEMA 07/29/23 [History Last Taken 09/04/23] semaglutide 0.25 mg or 0.5 mg (2 mg/3 mL) subcutaneous pen injector (Ozempic) 0.25 mg subcut QWEEK . 07/29/23 [History Last Taken 09/01/23] tizanidine 4 mg tablet 4 mg PO Q8H PRN muscle spasticity 07/29/23 [History Last Taken 09/04/23] galcanezumab-gnlm 120 mg/mL subcutaneous pen injector (Emgality Pen) 120 mg subcut .COMPLEX . 09/04/23 [History Last Taken 08/05/23] insulin lispro 100 unit/mL subcutaneous solution 1 sliding scale dose subcut ACHS DIABETES 09/04/23 [History Last Taken 09/04/23] meclizine 25 mg tablet 25 mg PO BID NAUSEA 09/04/23 [History Last Taken 09/04/23] midodrine 10 mg tablet 10 mg PO TID . 09/04/23 [History Last Taken 09/04/23] nystatin 100,000 unit/gram topical powder (Nyamyc) 1 applic topical BID RASH 09/04/23 [History Last Taken 09/04/23] potassium chloride 10 mEq tablet,extended release 20 meq PO DAILY SUPPLEMENT 09/04/23 [History Last Taken 09/04/23] topiramate 200 mg tablet 200 mg PO Q12H , 09/04/23 [History Last Taken 09/04/23] vitamin B complex 1 tab PO BID SUPPLEMENT 09/04/23 [History Last Taken 09/04/23] carbamazepine 100 mg tablet,extended release,12 hr 300 mg PO QHS SEIZURES 09/10/23 [History Last Taken Unknown] cefdinir 300 mg capsule 300 mg PO BID #3 caps 09/10/23 [Rx Last Taken Unknown] fluticasone propionate 220 mcg/actuation HFA aerosol inhaler 1 puff inhalation Q12H 09/10/23 [History Last Taken Unknown] hydroxyzine HCl 25 mg tablet 50 mg PO DAILY PRN itching 09/10/23 [History Last Taken Unknown] ipratropium 0.5 mg-albuterol 3 mg (2.5 mg base)/3 mL nebulization soln 3 ml inhalation Q6H PRN shortness of breath or wheezing 09/10/23 [History Last Taken Unknown] melatonin 5 mg capsule 5 mg PO QHS SLEEP 09/10/23 [History Last Taken Unknown] Allergy/AdvReac Type Severity Reaction Status Date / Time latex Allergy Rash Verified 10/09/23 11:09 levofloxacin [From Levaquin] Allergy Hives Verified 10/09/23 11:09 ondansetron [From Zofran] Allergy Hives Verified 10/09/23 11:09 nalbuphine [From Nubain] AdvReac Other Verified 10/09/23 11:09 Family History Father Cancer Mother Cancer Surgical History Hx of cholecystectomy Hx of tonsillectomy Hx of tubal ligation Social History household members: family and none housing: house Smoking Status: Former smoker alcohol intake: never substance use type: does not use ROS Constitutional Constitutional: Reports anorexia; Denies chills, fatigue or fever(s) Eyes Eyes: Denies blurry vision ENT HEENT: Denies abnormal hearing Cardiovascular Cardiovascular: Denies chest pain Respiratory/Chest Respiratory/Chest: Denies cough or dyspnea Gastrointestinal Gastrointestinal: Reports abdominal pain, constipation, nausea and vomiting; Denies diarrhea or dysphagia Genitourinary Genitourinary: Denies change in urinary stream Musculoskeletal Musculoskeletal: Denies abnormal gait or back pain Integumentary Integumentary: Denies jaundice Neurologic Neurologic: Denies abnormal gait Psychiatric Psychiatric: Denies anxiety Endocrine Endocrinology: Denies flushing Hematologic/Lymphatic Hematologic/Lymphatic: Denies easy bleeding Vital Signs Vital Signs Vital Signs: 10/09/23 11:09 Temperature 98.0 F Temperature Source Oral Pulse Rate 59 L Respiratory Rate 14 Blood Pressure 127/61 H Blood Pressure Mean 83 Pulse Ox 100 Oxygen Delivery Method Room Air Weight Weight: 216 lb 0.848 oz Body Mass Index (BMI) 34.8 Physical Exam Const oriented x3 and no apparent distress Resp normal respiratory effort Cardio regular rate and regular rhythm GI soft to palpation Inspection: Negative for abdominal distention Palpation: tender RLQ Extremity normal to inspection Results Lab / Micro Data 10/09/23 11:35 10/09/23 11:35 Labs: Laboratory Results - last 24 hr 10/09/23 11:35: WBC 7.1, RBC 4.00 L, Hgb 11.6 L, Hct 36.1 L, MCV 90.3, MCH 29.0, MCHC 32.1, RDW Std Deviation 42.4, RDW Coeff of He 13.1, Plt Count 207, MPV 11.2, Immature Gran % (Auto) 1.100 H, Neut % (Auto) 68.3, Lymph % (Auto) 22.3, [place] % (Auto) 7.0, Eos % (Auto) 1.0, Baso % (Auto) 0.3, Absolute Neuts (auto) 4.8, Absolute Lymphs (auto) 1.57, Nucleated RBC % 0, Sodium 139, Potassium 3.4 L , Chloride 106, Carbon Dioxide 25.0, Anion Gap 8, BUN 22 H, Creatinine 1.11 H, Estim Creat Clear Calc 66.01, Est GFR (MDRD) Af Amer 65, Est GFR (MDRD) Non-Af 54 L, BUN/Creatinine Ratio 19.8, Glucose 237 H, Calcium 9.3, Total Bilirubin 0.30, AST 32, ALT 50, Alkaline Phosphatase 139 H, Total Protein 8.4 H, Albumin 3.7, Globulin 4.7 H, Albumin/Globulin Ratio 0.8 L, Lipase 43 Imaging Radiology Impression Abdomen/Pelvis CT 10/09/23 11:36 IMPRESSION: 1. Acute retrocecal appendicitis without evidence of abscess or perforation. 2. 2 cm left adrenal nodule. Recommend correlation with hormone levels. 3. Punctate bilateral renal stone. Electronically Signed: Zeus Ybarra MD at 13:15 EDT , Assessment & Plan Assessment/Plan (1) Acute appendicitis: QUALIFIERS: Acute appendicitis type: unspecified acute appendicitis type Qualified Code(s): K35.80 - Unspecified acute appendicitis PLAN: The patient presented with right lower quadrant pain. CT scan revealed acute appendicitis. She says has been going on for about 4 days. The appendix is retrocecal and likely causing a colonic ileus which is also contributing to the constipation. I will give her some enemas or suppositories after surgery. I discussed laparoscopic appendectomy with the patient in detail. I discussed the risks including but not limited to bleeding, infection, injury other organs around the appendix such as the colon, ureter or bladder. Patient understands all the risks and she is willing to proceed with surgery. The patient also has a 2 cm left adrenal nodule found on CT scan she needs to be referred to her PCP for evaluation and further workup. Murtaza Saldana MD Pager: [facility] [address] [place] [address], [address] [place] [address] Office:
[2023-10-09] MEDS: Piperacil/Tazobactam 3.375 GM in 0.9% Normal Saline (50mL MB+) 50 ML IV ×2 (13:53→22:55)
[2023-10-09] MEDS: Lactated Ringers 1,000 ML 15 ML IV (14:10)
[2023-10-09] MEDS: Bupiv/Epi 0.25% 30 ML Vial (15:18)
--- NOTE | 2023-10-09 15:31 | OP.PCM_ITS ---
Report of Operation Date of Procedure: 10/09/23 Pre-Operative Diagnosis: Acute appendicitis Post-Operative Diagnosis: Acute appendicitis Surgery/Procedure Performed:: Laparoscopic appendectomy Type of Anesthesia: General/Regional Specimen's removed: Appendix Drains: MARIZA to bulb suction Estimated Blood Loss (mL): 20 Description of Procedure: The patient was brought into the operating room and general anesthesia was induced. The left arm was tucked and the abdomen was prepped and draped in usual sterile fashion. A small midline incision was made superior to the umbilicus and deepened to the level of the fascia. The fascia was elevated and incised. The peritoneum was also elevated and incised. A finger sweep was performed and a balloon trocar was placed into the abdomen and inflated. The abdomen was insufflated to 15 mmHg and the camera was inserted and the abdomen was inspected for any injuries upon entering the abdomen. There were none. The patient was placed in Trendelenburg position and a 5 mm ports placed in the left lower quadrant and suprapubic areas under direct visualization. Next using atraumatic bowel graspers the appendix was identified. It was densely adherent to the abdominal wall and to the cecum. The base was identified. The appendix was grasped and elevated and Enseal was used to take down the mesoappendix. A stapler was used to come across the base of the appendix. The appendix was then placed in Endo Catch bag and removed through the umbilical incision. The base of the appendix was very inflamed. When stapling across it it was very firm and the appendicolith seem to get in the way. After stapling the staple line was inspected and it appeared that there may have been a small lumen although this may be a blood vessel. To be safe the area was oversewn with several 2-0 silk sutures laparoscopically. A drain was then placed through the left lower quadrant incision and guided to the appendiceal stump. It was sutured to the skin using 3-0 nylon suture. The 2 5 mm ports are removed under direct visualization. The balloon trocar was deflated and removed and all the air was removed from the abdomen. The umbilical incision fascia was closed with an 0 Vicryl [id number] suture. The incisions were then irrigated with saline and dried. Local anesthetic was injected into the incision sites. The skin incisions were then closed with interrupted 4-0 Monocryl suture and Steri- Strips. Bandages were applied and the patient was awoken and taken to PACU in stable condition. Patient tolerated the procedure well. Admit VTE Documentation VTE Mechan Device Prophylaxis: SCD's
[2023-10-09 16:18] LABS: Bedside Glucose 163 mg/dL (74-106)
[2023-10-09] MEDS: 0.9% Normal Saline (1000mL) 1,000 ML 100 ML IV (17:50)
[2023-10-09] MEDS: Bisacodyl 10 MG Suppository RC (19:13)
[2023-10-09] MEDS: MELATONIN 3 MG TABLET 12 MG PO (22:52)
[2023-10-09] MEDS: Midodrine HCl 5 MG Tablet 10 MG PO (22:53)
[2023-10-09] MEDS: DULoxetine Hcl 60 MG Capsule PO (22:53)
[2023-10-09] MEDS: Nystatin Powder 15gm Bottle 1 APPLIC TOPICAL (22:54)
[2023-10-09] MEDS: Atorvastatin Calcium 80 MG Tablet PO (22:54)
[2023-10-09] MEDS: Ketorolac 15 MG/ML Vial IV (22:55)
[2023-10-10] VITALS (7 sets, daily range): BP systolic 109–119; BP diastolic 50–66; PULSE 54–61; RESP 14–18; TEMP 36.4–37.1; O2SAT 95–98
[2023-10-10 00:22] LABS: Bedside Glucose 155 mg/dL (74-106)
[2023-10-10] MEDS: oxyCODONE 5 MG Tablet PO ×4 (03:29→22:01)
[2023-10-10] MEDS: 0.9% Normal Saline (1000mL) 1,000 ML 100 ML IV ×3 (03:30→22:53)
[2023-10-10 03:43] LABS: Mucous, Urine 0 SEEN /hpf (<or=2+); Red Blood Cells-Urine 0 SEEN /hpf (0-5); Squamous Epithelial Cells - UA 0 SEEN /hpf (5-10); White Blood Cells 0 SEEN /hpf (0-5)
[2023-10-10 03:53] LABS: Color, Urine Yellow (Yellow); Glucose, Dipstick Normal (Normal); Ketone-Dipstick Negative (Negative); Leukocyte Esterase-Dipstick 25 /ul (Negative); Nitrite-Dipstick Positive (Negative); Occult Blood-Urine Negative /ul (Negative); Protein-Dipstick 15 mg/dl (Negative); Urine Bilirubin Dipstick Negative (Negative); Urine Clarity Clear (Clear); Urine Urobilinogen Normal (Normal)
[2023-10-10 04:11] LABS: Bacteria 2+ /hpf (None Seen)
[2023-10-10 04:23] LABS: Absolute Lymphocyte Count 1.73 X10^3/uL (0.83-4.51); Basophil# 0.02 X10^3/uL; Basophil% 0.3 % (0-1); Eosinophil# 0.07 X10^3/uL; Eosinophils% 0.9 % (0-5); Hematocrit 30.8 % (37-47); Hemoglobin 9.9 g/dL (12.0-15.0); Lymphocyte # 1.73 X10^3/ul (0.83-4.51); Lymphocyte % 23.2 % (19-41); Mean Corp Hgb Conc 32.1 g/dL (32-36); Mean Corpuscular Hgb 29.5 pg (27.0-32.0); Mean Corpuscular Volume 91.7 fL (81-99); Mean Platelet Vol. 11.4 fl (6.2-12.0); Monocyte% 8.1 % (0-10); NRBC Flagged by Analyzer 0 % (0-5); Neutrophil % 67.1 % (47-70); Platelet Count 219 K/mm3 (150-450); RBC Distribution Width CV 13.2 % (11.6-14.6); RBC Distribution Width SD 44.3 fl (35.1-43.9); Red Blood Count 3.36 M/mm3 (4.2-5.4); White Blood Count 7.5 K/mm3 (4.4-11.0)
[2023-10-10 04:54] LABS: Anion Gap 6 (5-15); BUN 21 mg/dL (7-18); BUN/Creat Ratio 17.9 RATIO (10-20); Calcium,Total 8.5 mg/dL (8.5-10.1); Chloride 111 mmol/L (98-107); Creatinine, Serum 1.17 mg/dL (0.55-1.02); EST Glomerular Filtration Rate 51 mL/min (>60); Est Glom Filt Rate - Afr Amer 61 mL/min (>60); Estimated Creatinine Clearance 62.63 ml/min; Glucose 159 mg/dL (74-106); Potassium 3.2 mmol/L (3.5-5.1); Sodium Level 142 mmol/L (136-145)
[2023-10-10] MEDS: Piperacil/Tazobactam 3.375 GM in 0.9% Normal Saline (50mL MB+) 50 ML IV ×3 (06:35→22:26)
[2023-10-10 06:58] LABS: Bedside Glucose 108 mg/dL (74-106)
[2023-10-10] MEDS: Budesonide Respules 0.5 MG/2 ML AMPUL.NEB. INHALATION ×2 (07:29→20:32)
--- NOTE | 2023-10-10 08:43 | PN.SURG_ITS ---
Subjective Subjective Patient reports she is still feeling sore but she has better than yesterday. She says she is having a lot of nausea. She did have 2 bowel movements after suppository and says she is passing gas. She is not complaining of any severe abdominal pain. Objective Data Objective Data Vital Signs: Vital Signs Temp Pulse Resp BP Pulse Ox O2 Del Method O2 Flow Rate 98.4 F 61 14 111/50 L 96 Room Air 2 10/10/23 08:34 10/10/23 08:34 10/10/23 08:34 10/10/23 08:34 10/10/23 08:34 10/10/23 08:35 10/09/23 22:30 Oxygen Flow Rate (L/min) 2 Oxygen Delivery Method Room Air Weight: 216 lb 0.848 oz Body Mass Index (BMI) 34.8 Intake & Output: Intake and Output for Last 24 Hours 10/08/23 10/09/23 10/10/23 23:59 23:59 23:59 Intake Total 1105 / 1405 1516.67 / 1516.67 Output Total 100 / 120 40 / 40 Balance 1005 / 1285 1476.67 / 1476.67 Lab / Micro Data 10/10/23 03:20 10/10/23 03:20 Labs: Laboratory Results - last 24 hr 10/09/23 11:35: WBC 7.1, RBC 4.00 L, Hgb 11.6 L, Hct 36.1 L, MCV 90.3, MCH 29.0, MCHC 32.1, RDW Std Deviation 42.4, RDW Coeff of He 13.1, Plt Count 207, MPV 11.2, Immature Gran % (Auto) 1.100 H, Neut % (Auto) 68.3, Lymph % (Auto) 22.3, Kerr % (Auto) 7.0, Eos % (Auto) 1.0, Baso % (Auto) 0.3, Absolute Neuts (auto) 4.8, Absolute Lymphs (auto) 1.57, Nucleated RBC % 0, Sodium 139, Potassium 3.4 L , Chloride 106, Carbon Dioxide 25.0, Anion Gap 8, BUN 22 H, Creatinine 1.11 H, Estim Creat Clear Calc 66.01, Est GFR (MDRD) Af Amer 65, Est GFR (MDRD) Non-Af 54 L, BUN/Creatinine Ratio 19.8, Glucose 237 H, Calcium 9.3, Total Bilirubin 0.30, AST 32, ALT 50, Alkaline Phosphatase 139 H, Total Protein 8.4 H, Albumin 3.7, Globulin 4.7 H, Albumin/Globulin Ratio 0.8 L, Lipase 43 10/09/23 15:59: POC Glucose 163 H 10/09/23 22:51: POC Glucose 155 H 10/10/23 03:15: Urine Color Yellow, Urine Clarity Clear, Urine pH 6.0, Ur Specific Eros 1.020, Urine Protein 15 H, Urine Glucose (UA) Normal, Urine Ketones Negative, Urine Occult Blood Negative, Urine Nitrite Positive H, Urine Bilirubin Negative, Urine Urobilinogen Normal, Ur Leukocyte Esterase 25 H, Urine RBC 0 SEEN, Urine WBC 0 SEEN, Ur Squamous Epith Cells 0 SEEN, Urine Bacteria 2+, Urine Mucus 0 SEEN 10/10/23 03:20: WBC 7.5, RBC 3.36 L, Hgb 9.9 L, Hct 30.8 L, MCV 91.7, MCH 29.5, MCHC 32.1, RDW Std Deviation 44.3 H, RDW Coeff of He 13.2, Plt Count 219, MPV 11.4, Immature Gran % (Auto) 0.400, Neut % (Auto) 67.1, Lymph % (Auto) 23.2, Kerr % (Auto) 8.1, Eos % (Auto) 0.9, Baso % (Auto) 0.3, Absolute Neuts (auto) 5.0, Absolute Lymphs (auto) 1.73, Nucleated RBC % 0, Sodium 142, Potassium 3.2 L , Chloride 111 H, Carbon Dioxide 25.0, Anion Gap 6, BUN 21 H, Creatinine 1.17 H, Estim Creat Clear Calc 62.63, Est GFR (MDRD) Af Amer 61, Est GFR (MDRD) Non-Af 51 L, BUN/Creatinine Ratio 17.9, Glucose 159 H, Calcium 8.5 10/10/23 06:31: POC Glucose 108 H Radiography Diagnostic Testing: Radiology Impression Abdomen/Pelvis CT 10/09/23 11:36 IMPRESSION: 1. Acute retrocecal appendicitis without evidence of abscess or perforation. 2. 2 cm left adrenal nodule. Recommend correlation with hormone levels. 3. Punctate bilateral renal stone. Electronically Signed: Zeus Ybarra MD at 13:15 EDT , ADDENDUM: 10/09/23 1327 IMPRESSION: 1. Acute retrocecal appendicitis without evidence of abscess or perforation. 2. 2 cm left adrenal nodule. Recommend correlation with hormone levels. 3. Punctate bilateral renal stone. N.B. : The above Results were Read Back by Zeus Ybarra MD to Meeta Cash PA, and understanding confirmed on 10/09/2023 13:20:52 (ET). Electronically Signed: Zeus Ybarra MD at 13:15 EDT , Physical Exam Const oriented x3 and no apparent distress Resp normal respiratory effort GI soft to palpation Palpation: tender Assessment & Plan Assessment/Plan (1) Acute appendicitis: QUALIFIERS: Acute appendicitis type: unspecified acute appendicitis type Qualified Code(s): K35.80 - Unspecified acute appendicitis PLAN: The patient had a severe acute appendicitis yesterday. Her drain is serous. I would like her to continue just clears until her nausea subsides and then she may advance to a regular diet. I will keep her for 1 more day as I would like to see her tolerating regular diet and keep the drain in place until she is to make sure there is no leak. I would also like to continue her antibiotics and I will give her a fluid bolus as her creatinine has slightly increased and she feels like she is not peeing enough. Murtaza Saldana MD Pager: [facility] [address] [place] [address], [address] [place] [address] Office:
[2023-10-10] MEDS: Meclizine HCl 25 MG Tablet PO (09:04)
[2023-10-10] MEDS: Ketorolac 15 MG/ML Vial IV ×2 (09:04→18:34)
[2023-10-10] MEDS: Midodrine HCl 5 MG Tablet 10 MG PO ×2 (09:08→12:59)
[2023-10-10] MEDS: Potassium Chloride Oral Tablet 10 MEQ PO (09:08)
[2023-10-10] MEDS: 0.9% Normal Saline (500mL Bag) 500 ML 999 ML IV (09:08)
[2023-10-10] MEDS: Insulin Glargine-YFGN 100 UNIT/ML Pen 22 UNIT SC (09:10)
[2023-10-10] MEDS: Pantoprazole Sodium 40 MG Tablet PO (09:10)
[2023-10-10] MEDS: DULoxetine Hcl 60 MG Capsule PO ×2 (09:10→22:02)
[2023-10-10] MEDS: Nystatin Powder 15gm Bottle 1 APPLIC TOPICAL ×2 (09:10→22:04)
[2023-10-10] MEDS: carBAMazepine 200 MG Tablet 300 MG PO ×2 (10:08→22:03)
[2023-10-10] MEDS: Acetaminophen 325 MG Tablet 650 MG PO ×3 (10:33→22:00)
[2023-10-10] MEDS: Insulin Lispro 100 UNIT/ML INSULN.PEN SC (11:26)
[2023-10-10 11:42] LABS: Bedside Glucose 178 mg/dL (74-106)
[2023-10-10 16:58] LABS: Bedside Glucose 136 mg/dL (74-106)
[2023-10-10] MEDS: carBAMazepine 200 MG Tablet PO (17:10)
[2023-10-10] MEDS: Atorvastatin Calcium 80 MG Tablet PO (22:01)
[2023-10-10] MEDS: MELATONIN 3 MG TABLET 12 MG PO (22:02)
[2023-10-10] MEDS: Docusate Sodium 100 MG Capsule PO (22:02)
[2023-10-10] MEDS: Gabapentin 800 MG Tablet PO (22:07)
[2023-10-10] MEDS: Insulin Glargine-YFGN 100 UNIT/ML Pen 15 UNIT SC (22:21)
[2023-10-10 23:39] LABS: Bedside Glucose 123 mg/dL (74-106)
[2023-10-11] MEDS: 0.9% Saline Lock 10 ML Syringe IV (02:12)
[2023-10-11] MEDS: Ketorolac 15 MG/ML Vial IV (02:12)
[2023-10-11 02:53] VITALS: BP 101/58; PULSE 57; RESP 18; TEMP 36.7; O2SAT 98
[2023-10-11 06:18] VITALS: BP 144/69; PULSE 59; RESP 18; TEMP 36.4; O2SAT 100
[2023-10-11] MEDS: oxyCODONE 5 MG Tablet PO ×2 (06:25→10:33)
[2023-10-11] MEDS: Acetaminophen 325 MG Tablet 650 MG PO ×2 (06:26→10:33)
[2023-10-11] MEDS: Piperacil/Tazobactam 3.375 GM in 0.9% Normal Saline (50mL MB+) 50 ML IV (06:27)
[2023-10-11 07:01] VITALS: PULSE 58; RESP 16; O2SAT 98
[2023-10-11] MEDS: Budesonide Respules 0.5 MG/2 ML AMPUL.NEB. INHALATION (07:03)
[2023-10-11 07:11] LABS: Bedside Glucose 98 mg/dL (74-106)
[2023-10-11] MEDS: Magnesium Citrate 300 ML PO (07:40)
[2023-10-11 07:53] LABS: Absolute Lymphocyte Count 1.92 X10^3/uL (0.83-4.51); Absolute Neutrophil Count 5.8 X10^3/uL (2.0-7.7); Basophil# 0.03 X10^3/uL; Basophil% 0.3 % (0-1); Eosinophil# 0.17 X10^3/uL; Eosinophils% 1.9 % (0-5); Hematocrit 31.7 % (37-47); Hemoglobin 9.9 g/dL (12.0-15.0); Lymphocyte # 1.92 X10^3/ul (0.83-4.51); Mean Corp Hgb Conc 31.2 g/dL (32-36); Mean Corpuscular Hgb 29.2 pg (27.0-32.0); Mean Corpuscular Volume 93.5 fL (81-99); Mean Platelet Vol. 10.7 fl (6.2-12.0); Monocyte# 0.76 X10^3/uL; Monocyte% 8.7 % (0-10); NRBC Flagged by Analyzer 0 % (0-5); Neutrophil # 5.82 X10^3/uL (2.7-7.7); Neutrophil % 66.6 % (47-70); Platelet Count 186 K/mm3 (150-450); RBC Distribution Width CV 13.2 % (11.6-14.6); RBC Distribution Width SD 44.9 fl (35.1-43.9); Red Blood Count 3.39 M/mm3 (4.2-5.4); White Blood Count 8.7 K/mm3 (4.4-11.0)
[2023-10-11] MEDS: Docusate Sodium 100 MG Capsule PO (07:57)
[2023-10-11] MEDS: Potassium Chloride Oral Tablet 10 MEQ PO (07:57)
[2023-10-11] MEDS: carBAMazepine 200 MG Tablet PO (07:57)
[2023-10-11] MEDS: Pantoprazole Sodium 40 MG Tablet PO (07:57)
[2023-10-11] MEDS: Nystatin Powder 15gm Bottle 1 APPLIC TOPICAL (07:57)
[2023-10-11] MEDS: DULoxetine Hcl 60 MG Capsule PO (07:57)
[2023-10-11] MEDS: Insulin Glargine-YFGN 100 UNIT/ML Pen 22 UNIT SC (07:58)
[2023-10-11 08:00] VITALS: BP 139/63; PULSE 62; RESP 18; TEMP 36.3; O2SAT 98
[2023-10-11 08:13] LABS: Anion Gap 6 (5-15); BUN 11 mg/dL (7-18); Calcium,Total 8.3 mg/dL (8.5-10.1); Chloride 115 mmol/L (98-107); Creatinine, Serum 0.85 mg/dL (0.55-1.02); EST Glomerular Filtration Rate 73 mL/min (>60); Est Glom Filt Rate - Afr Amer 89 mL/min (>60); Glucose 106 mg/dL (74-106); Potassium 3.1 mmol/L (3.5-5.1); Sodium Level 143 mmol/L (136-145)
--- NOTE | 2023-10-11 09:08 | PCM.TXEXTCAR ---
Diet Diet Order/Speech Therapy: 10/11/23 07:08 Diet: Consistent Carb - Calorie Controlled Is pt able to select menu?: Yes How many daily calories?: 2000 calorie Routine Orders/Code Status Suppository Type: Dulcolax 10mg Suppository Frequency: Daily PRN Wound(s) abdomen: Wound Type: Surgical Incision abdomen left: Wound Type: Surgical Incision Therapies Physical Therapy: Eval and Treat Occupational Therapy: Eval and Treat Problem/Diagnosis (1) Acute appendicitis: Status: Acute Code(s): K35.80 - Unspecified acute appendicitis Plan: The patient had a severe acute appendicitis yesterday. Her drain is serous. I would like her to continue just clears until her nausea subsides and then she may advance to a regular diet. I will keep her for 1 more day as I would like to see her tolerating regular diet and keep the drain in place until she is to make sure there is no leak. I would also like to continue her antibiotics and I will give her a fluid bolus as her creatinine has slightly increased and she feels like she is not peeing enough. Murtaza Saldana MD Pager: [facility] [address] [place] [address], [address] [place] [address] Office: Allergies/Procedures Done in Hospital Allergies latex Allergy (Verified 10/09/23 11:09) Rash levofloxacin [From Levaquin] Allergy (Verified 10/09/23 11:09) Hives ondansetron [From Zofran] Allergy (Verified 10/09/23 11:09) Hives nalbuphine [From Nubain] Adverse Reaction (Verified 10/09/23 11:09) Other Type of Care/Length of Stay Estimated LOS: Convalescent Care Less Than 30 days Type of Care Needed: Skilled Rehab Potential: Good Prognosis: Good Additional Orders/Day of Discharge Day of Discharge: 10/11/23 Follow Up Care Please Follow Up With: Murtaza Saldana MD When: Please call to schedule 1 week follow up appointment. [phone] Discharge Plan Admission Admit Date/Time: 10/10/23 08:44 Attending Provider: Murtaza Saldana Primary Care Provider: Vi Eng Discharge Orders/Prescriptions Prescriptions: New oxycodone 5 mg Tablet 5 - 10 mg PO Q4H PRN PRN (Reason: PAIN 4-10) 5 Days Qty: 20 0RF Continued atorvastatin 80 mg tablet 80 mg PO QHS Patient Comments: TAKE ONE TABLET BY MOUTH DAILY AT 9PM AT BEDTIME iwdtbqgdgd-vebetcyyoyhcp-uekp 50-325-40 mg Tablet 1 tab PO Q6H PRN (Reason: Headache) glucagon 1 mg Kit 1 mg Hold Instructions: Pt is ill omeprazole 40 mg capsule,delayed release(DR/EC) 40 mg PO DAILY Patient Comments: TAKE ONE CAPSULE BY MOUTH DAILY AT 9AM gabapentin 800 mg tablet 800 mg PO QHS Patient Comments: TAKE ONE TABLET BY MOUTH DAILY AT 9PM AT BEDTIME docusate sodium 100 mg Capsule 100 mg PO BID diclofenac sodium 75 mg tablet,delayed release (DR/EC) 75 mg PO BID PRN (Reason: pain) Patient Comments: TAKE ONE TABLET BY MOUTH TWICE DAILY NEEDED (VIAL) gabapentin 100 mg Capsule 100 mg PO BID Rx Instructions: MORNING AND NOON albuterol sulfate 90 mcg/actuation HFA aerosol inhaler 2 puff INHALATION Q4H PRN (Reason: Wheezing) Patient Comments: INHALE TWO PUFFS BY MOUTH DIRECTED EVERY 6 HOURS NEEDED FOR WHEEZING OR FOR SHORTNESS OF BREATH (BULK) (DME) FreeStyle Es 2 Sensor Kit MISCELLANEOUS Patient Comments: apply 1 SENSOR to back OF UPPER ARM REMOVE AND REPLACE every 14 d... (REFER TO PRESCRIPTION NOTES). (DME) FreeStyle Es 2 Imperial Misc MISCELLANEOUS Patient Comments: USE CONTINUOUSLY TO MONITOR BLOOD SUGARS DAILY (DME) Droplet Insulin Syr(half unit) 0.5 mL 31 gauge x 5/16 syringe MISCELLANEOUS Patient Comments: USE TO INJECT INSULIN UNDER THE SKIN EVERY MEAL AND AT BEDTIME PER SLIDING SCALE ergocalciferol (vitamin D2) 1,250 mcg (50,000 unit) capsule 50,000 unit PO MO Patient Comments: TAKE 1 CAPSULE BY MOUTH EVERY WEDNESDAY AT 9AM Rx Instructions: takes on mondays promethazine 25 mg tablet 25 mg PO Q6H PRN PRN (Reason: Nausea) Qty: 12 0RF insulin glargine 100 unit/mL (3 mL) insulin pen See Rx Instructions SUBCUT BID Rx Instructions: 22 units in the morning, 15 units at bedtime subcutaneously twice a day; duloxetine 60 mg capsule,delayed release(DR/EC) 60 mg PO BID Patient Comments: TAKE ONE CAPSULE BY MOUTH TWICE DAILY Nuedexta 20-10 mg capsule 1 cap PO BID Ubrelvy 100 mg tablet 100 mg PO .COMPLEX PRN (Reason: MIGRAINE) Rx Instructions: TAKE 1 TABLET BY MOUTH AT ONSET OF MIGRAINE. IF NO IMPROVEMENT WITHIN 2 HRS TAKE 1 TABLET. DO NOT EXCEED 2 TABS IN 24 HOURS furosemide [Lasix] 20 mg tablet 20 mg PO DAILY Ozempic 0.25 mg or 0.5 mg (2 mg/3 mL) pen injector 0.25 mg SUBCUT QWEEK Patient Comments: INJECT 0.25 MG SUBCUTANEOUSLY ONCE A WEEK Rx Instructions: WEDNESDAY tizanidine 4 mg tablet 4 mg PO Q8H PRN (Reason: muscle spasticity) Patient Comments: TAKE ONE TABLET BY MOUTH EVERY 8 HOURS NEEDED (VIAL) Emgality Pen 120 mg/mL pen injector 120 mg SUBCUT .COMPLEX Patient Comments: INJECT 1 ML (120MG TOTAL) UNDER THE SKIN EVERY 28 DAYS (BULK) Rx Instructions: 120 mg subcutaneously Q28D; insulin lispro 100 unit/mL solution 1 sliding scale dose subcut ACHS Rx Instructions: INJECT PER SLIDING SCALE THREE TIMES DAILY FOLLOWS ONE UNIT IF BG LESS THAN 110, TWO UNITS FOR BG 111-150, FOUR UNITS FOR BG 151-200, SEVEN UNITS FOR BG 201-250, 10 UNITS FOR BG 251-300, 13 UNITS FOR BG 301-350, 16 UNITS FOR BG 351-400, CALL MD IF BG OVER 400 (MAX 48 UNITS PER DAY) meclizine 25 mg tablet 25 mg PO DAILY PRN Patient Comments: TAKE ONE TABLET BY MOUTH BID midodrine 10 mg tablet 10 mg PO TID Patient Comments: take 1 tablet by mouth three times a day potassium chloride 10 mEq tablet extended release 10 meq PO DAILY nystatin [Nyamyc] 100,000 unit/gram powder 1 applic TOPICAL BID Patient Comments: apply to affected area twice a day if needed topiramate 200 mg tablet 200 mg PO Q12H Patient Comments: TAKE ONE TABLET BY MOUTH TWICE DAILY (VIAL) vitamin B complex Tablet 1 tab PO BID fluticasone propionate 220 mcg/actuation HFA aerosol inhaler 1 puff inhalation Q12H Rx Instructions: RINSE MOUTH AFTER EACH USE hydroxyzine HCl 25 mg tablet 50 mg PO DAILY PRN (Reason: itching) ipratropium-albuterol 0.5 mg-3 mg(2.5 mg base)/3 mL solution for nebulization 3 ml inhalation Q6H PRN (Reason: shortness of breath or wheezing) melatonin 5 mg capsule 12 mg PO QHS lorazepam 0.5 mg tablet 0.5 mg PO QHS PRN carbamazepine [Tegretol] 200 mg tablet 200 mg PO 0900,1700 carbamazepine [Tegretol] 200 mg tablet 300 mg PO QHS Referrals / Follow Up: Vi Eng DO [Primary Care Provider] - Disposition Disposition (needs filled in before D/C Order can be placed): Assisted Living (1) Acute appendicitis Qualifiers: Acute appendicitis type: unspecified acute appendicitis type Qualified Code(s): K35.80 - Unspecified acute appendicitis
--- NOTE | 2023-10-11 10:43 | PCM.PN.BLA ---
Progress Note MARIZA drain was prepped with betadine. MARIZA removed off of suction and removed completely. Single suture remained in place to assist with closure. Folded 4 x 4 gauze was applied and secured with paper tape. Patient tolerated the removal well.
--- NOTE | 2023-10-11 10:50 | CASEMGMT ---
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 Per physician, pt is ready for discharge today. SW met with pt and introduced self and role of SW. Pt confirms plans to return to [facility] today. Pt states she will update her sister. Discharge orders sent to [facility] via [facility]. 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 Pt, nurse and [facility] notified of dc time. Disposition: Return to [facility] DAIJA Pacheco
--- NOTE | 2023-10-11 10:53 | PHA.DC.MR.R ---
Pharm[facility] Med Reconciliation Pharmacy Service has performed discharge medication reconciliation for this patient. The patient's discharge medication list was reviewed for discrepancies and discrepancies were resolved. Medications at Discharge Home Medications albuterol sulfate 90 mcg/actuation aerosol inhaler 2 puff inhalation Q4H PRN Wheezing 09/03/22 atorvastatin 80 mg tablet 80 mg PO QHS . 09/03/22 kfcnwvvnfd-rnyqyunmudagj-vjklwswj 50 mg-325 mg-40 mg tablet 1 tab PO Q6H PRN Headache 09/03/22 diclofenac sodium 75 mg tablet,delayed release 75 mg PO BID PRN pain 09/03/22 docusate sodium 100 mg capsule 100 mg PO BID CONSTIPATION 09/03/22 ergocalciferol (vitamin D2) 1,250 mcg (50,000 unit) capsule 50,000 unit PO MO Check with primary doctor 09/03/22 flash glucose scanning reader ([facility] [employer] ConnectStyle Es 2 [place]) 09/03/22 flash glucose sensor (FreeStyle Es 2 Sensor kit) 09/03/22 gabapentin 100 mg capsule 100 mg PO BID . 09/03/22 gabapentin 800 mg tablet 800 mg PO QHS PAIN 09/03/22 glucagon 1 mg injection kit 1 mg Check with primary doctor 09/03/22 insulin syr/ndl U100 half shirley 0.5 mL 31 gauge x 5/16 (Droplet Insulin Syringe (half unit)) 09/03/22 omeprazole 40 mg capsule,delayed release 40 mg PO DAILY GERD 09/03/22 promethazine 25 mg tablet 25 mg PO Q6H PRN PRN Nausea #12 TABLETS 11/08/22 dextromethorphan 20 mg-quinidine 10 mg capsule (Nuedexta) 1 cap PO BID DEPRESSION 02/06/23 ubrogepant 100 mg tablet (Ubrelvy) 100 mg PO .COMPLEX PRN MIGRAINE 02/06/23 duloxetine 60 mg capsule,delayed release 60 mg PO BID . 05/31/23 insulin glargine 100 unit/mL (3 mL) subcutaneous pen See Rx Instructions subcut BID DM 05/31/23 furosemide 20 mg tablet (Lasix) 20 mg PO DAILY EDEMA 07/29/23 semaglutide 0.25 mg or 0.5 mg (2 mg/3 mL) subcutaneous pen injector (Ozempic) 0.25 mg subcut QWEEK . 07/29/23 tizanidine 4 mg tablet 4 mg PO Q8H PRN muscle spasticity 07/29/23 galcanezumab-gnlm 120 mg/mL subcutaneous pen injector (Emgality Pen) 120 mg subcut .COMPLEX . 09/04/23 insulin lispro 100 unit/mL subcutaneous solution 1 sliding scale dose subcut ACHS DIABETES 09/04/23 meclizine 25 mg tablet 25 mg PO DAILY PRN NAUSEA 09/04/23 midodrine 10 mg tablet 10 mg PO TID . 09/04/23 nystatin 100,000 unit/gram topical powder (Nyamyc) 1 applic topical BID RASH 09/04/23 potassium chloride 10 mEq tablet,extended release 10 meq PO DAILY SUPPLEMENT 09/04/23 topiramate 200 mg tablet 200 mg PO Q12H , 09/04/23 vitamin B complex 1 tab PO BID SUPPLEMENT 09/04/23 fluticasone propionate 220 mcg/actuation HFA aerosol inhaler 1 puff inhalation Q12H 09/10/23 hydroxyzine HCl 25 mg tablet 50 mg PO DAILY PRN itching 09/10/23 ipratropium 0.5 mg-albuterol 3 mg (2.5 mg base)/3 mL nebulization soln 3 ml inhalation Q6H PRN shortness of breath or wheezing 09/10/23 melatonin 5 mg capsule 12 mg PO QHS SLEEP 09/10/23 lorazepam 0.5 mg tablet 0.5 mg PO QHS PRN Anxiety 10/09/23 carbamazepine 200 mg tablet (Tegretol) 200 mg PO 0900,1700 seizure 10/10/23 carbamazepine 200 mg tablet (Tegretol) 300 mg PO QHS seizures 10/10/23 oxycodone 5 mg tablet 5 - 10 mg (1 - 2 x 5 mg) PO Q4H PRN PRN PAIN 4-10 5 days #20 tabs 10/11/23
--- NOTE | 2023-10-11 11:03 | NURSING ---
Called report to [facility] [phone] to [facility]. Pt will be getting picked up today at 13:00.
[2023-10-11 11:33] LABS: Bedside Glucose 244 mg/dL (74-106)
[2023-10-11 11:54] VITALS: BP 128/68; PULSE 65; RESP 18; TEMP 36.4; O2SAT 98
[2023-10-11] MEDS: Insulin Lispro 100 UNIT/ML INSULN.PEN SC (11:56)
== END 2023-10-11 13:10 | disposition home or self-care (01) | DRG 399 ==
LOC: ED 12:46 → SDC 12:55 → ACINP 13:03 → MS3 17:40 → SDC 10-10 10:29 → MS3 10-10 10:29
PROVIDERS: Physician Assistant; Admitting Provider Surgery; Emergency Provider Emergency Medicine; PCP Family Medicine; Visit Provider Surgery
PROC: 0DTJ4ZZ Resection of Appendix, Percutaneous Endoscopic Approach (ICD-10-PCS; CPT 44970; principal; 2023-10-09 14:00)
DX: K35.200 Acute appendicitis with generalized peritonitis, without perforation or abscess (principal); E27.8 Other specified disorders of adrenal gland; E11.9 Type 2 diabetes mellitus without complications; G40.909 Epilepsy, unspecified, not intractable, without status epilepticus; J44.9 Chronic obstructive pulmonary disease, unspecified; Z79.4 Long term (current) use of insulin; I10 Essential (primary) hypertension; E78.00 Pure hypercholesterolemia, unspecified; R29.6 Repeated falls; Z90.49 Acquired absence of other specified parts of digestive tract; Z79.51 Long term (current) use of inhaled steroids; Z79.899 Other long term (current) drug therapy; Z86.73 Personal history of transient ischemic attack (TIA), and cerebral infarction without residual deficits; Z87.891 Personal history of nicotine dependence
CPT/HCPCS: 36415; 74177; 80048; 80053; 81001; 82962; 83690; 85025; 88304; 94640; 94668; 99284; J7030; J7040; J7120; Q9967; A4216; C1760; J2405

== ENCOUNTER → 2023-10-15 | Outpatient (REF) | payer MEDICARE, SELFPAY ==
[2023-10-15 07:48] LABS: Absolute Lymphocyte Count 2.99 X10^3/uL (0.83-4.51); Basophil# 0.06 X10^3/uL; Basophil% 0.8 % (0-1); Eosinophil# 0.22 X10^3/uL; Eosinophils% 2.8 % (0-5); Hematocrit 31.3 % (37-47); Hemoglobin 9.6 g/dL (12.0-15.0); Lymphocyte # 2.99 X10^3/ul (0.83-4.51); Lymphocyte % 38.4 % (19-41); Mean Corp Hgb Conc 30.7 g/dL (32-36); Mean Corpuscular Hgb 29.2 pg (27.0-32.0); Mean Corpuscular Volume 95.1 fL (81-99); Mean Platelet Vol. 11.1 fl (6.2-12.0); Monocyte# 0.45 X10^3/uL; Monocyte% 5.8 % (0-10); NRBC Flagged by Analyzer 0 % (0-5); Neutrophil # 3.95 X10^3/uL (2.7-7.7); Neutrophil % 50.8 % (47-70); Platelet Count 284 K/mm3 (150-450); RBC Distribution Width CV 13.3 % (11.6-14.6); RBC Distribution Width SD 45.9 fl (35.1-43.9); Red Blood Count 3.29 M/mm3 (4.2-5.4); White Blood Count 7.8 K/mm3 (4.4-11.0)
[2023-10-15 08:00] LABS: Anion Gap 6 (5-15); BUN 27 mg/dL (7-18); BUN/Creat Ratio 33.9 RATIO (10-20); Chloride 114 mmol/L (98-107); EST Glomerular Filtration Rate 79 mL/min (>60); Est Glom Filt Rate - Afr Amer 95 mL/min (>60); Glucose 216 mg/dL (74-106); Sodium Level 140 mmol/L (136-145)
== END ==
LOC: OLS.SW 05:00
PROVIDERS: PCP Family Medicine; Visit Provider Internal Medicine
DX: E11.65 Type 2 diabetes mellitus with hyperglycemia (principal); E78.5 Hyperlipidemia, unspecified
CPT/HCPCS: 36415; 80048; 83036; 83735; 85025

== ENCOUNTER → 2023-10-18 | Outpatient (REF) | payer MEDICARE, MEDICAID, SELFPAY ==
[2023-10-18 09:10] LABS: Absolute Lymphocyte Count 4.21 X10^3/uL (0.83-4.51); Basophil# 0.06 X10^3/uL; Basophil% 0.6 % (0-1); Eosinophil# 0.19 X10^3/uL; Eosinophils% 1.8 % (0-5); Hemoglobin 11.1 g/dL (12.0-15.0); Lymphocyte # 4.21 X10^3/ul (0.83-4.51); Lymphocyte % 40.7 % (19-41); Mean Corp Hgb Conc 31.7 g/dL (32-36); Mean Corpuscular Hgb 29.3 pg (27.0-32.0); Mean Corpuscular Volume 92.3 fL (81-99); Mean Platelet Vol. 11.7 fl (6.2-12.0); Monocyte# 0.77 X10^3/uL; Monocyte% 7.4 % (0-10); NRBC Flagged by Analyzer 0 % (0-5); Neutrophil # 4.97 X10^3/uL (2.7-7.7); Neutrophil % 48.1 % (47-70); Platelet Count 233 K/mm3 (150-450); RBC Distribution Width CV 13.6 % (11.6-14.6); RBC Distribution Width SD 45.5 fl (35.1-43.9); Red Blood Count 3.79 M/mm3 (4.2-5.4); White Blood Count 10.4 K/mm3 (4.4-11.0)
[2023-10-18 09:15] LABS: Anion Gap 10 (5-15); BUN 36 mg/dL (7-18); Calcium,Total 8.7 mg/dL (8.5-10.1); Chloride 114 mmol/L (98-107); Creatinine, Serum 0.92 mg/dL (0.55-1.02); EST Glomerular Filtration Rate 67 mL/min (>60); Est Glom Filt Rate - Afr Amer 81 mL/min (>60); Glucose 120 mg/dL (74-106); Magnesium 2.2 mg/dL (1.6-2.6); Potassium 4.3 mmol/L (3.5-5.1); Sodium Level 142 mmol/L (136-145)
== END ==
LOC: OLS.SW 05:00
PROVIDERS: PCP Family Medicine; Visit Provider Internal Medicine
DX: E11.9 Type 2 diabetes mellitus without complications (principal)
CPT/HCPCS: 36415; 80048; 83735; 85025

== ENCOUNTER 2023-10-20 12:59 | Emergency (ER) | payer MEDICARE, MEDICAID, SELFPAY ==
[2023-10-20] VITALS (8 sets, daily range): BP systolic 143–174; BP diastolic 50–93; PULSE 59–69; RESP 12–28; TEMP 36.6–37.2; O2SAT 96–100; BMI 36.3
--- NOTE | 2023-10-20 13:43 | EKG12_ITS ---
Test Reason : LOW HR Blood Pressure : / mmHG Vent. Rate : 074 BPM Atrial Rate : 074 BPM P-R Int : 200 ms QRS Dur : 114 ms QT Int : 418 ms P-R-T Axes : 050 -49 084 degrees QTc Int : 463 ms Normal sinus rhythm Left anterior fascicular block Moderate voltage criteria for LVH, may be normal variant ( R in aVL , [place] product ) Abnormal ECG Confirmed by Pelon Valero ([id number]), business editor MAHESH VASQUEZ ([id number]) on 10/22/2023 7:19:05 AM Referred By: TA/TL Confirmed By:Pelon Valero
--- NOTE | 2023-10-20 14:18 | RAD_ITS ---
STUDY: X-RAY CHEST REASON FOR EXAM: Female, 58 years old. Chest pain TECHNIQUE: Single AP portable view of the chest. COMPARISON: Comparison is made with prior study May 30, 2023. FINDINGS: EKG electrodes are seen. Stable elevation of the right hemidiaphragm. The lungs are clear. There is no demonstrated pleural abnormality. Normal size heart. Normal mediastinum and justine. Normal visualized pulmonary arteries. Normal visualized aortic arch and descending thoracic aorta. Normal visualized thoracic spine. Normal visualized ribs, clavicles, and shoulders. There is no demonstrated abnormality of the visualized soft tissue structures of the upper abdomen. RAD/Chest 1 View (Portable) IMPRESSION: Normal x-ray examination of the chest. Electronically Signed: Luis Enrique Irwin MD at 14:29 EDT ,
[2023-10-20 14:24] LABS: Mucous, Urine 0 SEEN /hpf (<or=2+); Red Blood Cells-Urine 0 SEEN /hpf (0-5)
[2023-10-20 14:28] LABS: Color, Urine Yellow (Yellow); Glucose, Dipstick Normal (Normal); Ketone-Dipstick Negative (Negative); Leukocyte Esterase-Dipstick 100 /ul (Negative); Nitrite-Dipstick Positive (Negative); Occult Blood-Urine Negative /ul (Negative); Protein-Dipstick Negative (Negative); Urine Bilirubin Dipstick Negative (Negative); Urine Clarity Clear (Clear); Urine Urobilinogen Normal (Normal); Urine pH 6.5 (5.0 - 8.0)
[2023-10-20 15:15] LABS: Bacteria 4+ /hpf (None Seen); Squamous Epithelial Cells - UA 0-5 SEEN /hpf (5-10); White Blood Cells 0-5 SEEN /hpf (0-5)
[2023-10-20 15:33] LABS: Anion Gap 4 (5-15); BUN 35 mg/dL (7-18); BUN/Creat Ratio 40.1 RATIO (10-20); Calcium,Total 8.6 mg/dL (8.5-10.1); Chloride 113 mmol/L (98-107); Creatinine, Serum 0.87 mg/dL (0.55-1.02); EST Glomerular Filtration Rate 71 mL/min (>60); Est Glom Filt Rate - Afr Amer 86 mL/min (>60); Estimated Creatinine Clearance 86.07 ml/min; Glucose 153 mg/dL (74-106); Potassium 4.9 mmol/L (3.5-5.1); Sodium Level 135 mmol/L (136-145); Troponin-I HS (w/2H Reflex) 4 pg/mL (3.0-54.0)
--- NOTE | 2023-10-20 15:40 | ED.VIS.CHEST ---
HPI <Dr. Raudel Stoddard DO - Last Filed: 10/21/23 08:25> History of Present Illness Chief Complaint: Chest Pain Informant: patient Narrative Narrative: Presents by EMS from [facility] transient midsternal chest heaviness lasting 30 minutes started at noon. No radicular symptoms. No dyspnea no nausea. No diaphoresis. Denies any cardiac history. Reports does have seizure history both petit mal and grand mal. She is on Tegretol and Topamax. She states similar prodrome of chest heaviness with her seizure events in the past. Denies cough. Denies vomiting or diarrhea. However does report urine odor with mild dysuria. Prior Similar Symptoms: Yes PFSH <Dr. Raudel Stoddard DO - Last Filed: 10/21/23 08:25> [facility] Medical History Allergic rhinitis Anxiety Brain TIA Chronic migraine COPD (chronic obstructive pulmonary disease) Depression Diabetes mellitus, type 2 Former smoker Former tobacco use Generalized weakness GERD (gastroesophageal reflux disease) History of CVA (cerebrovascular accident) HTN (hypertension) Hypercholesterolemia Migraines Multiple falls Obesity Orthostasis Psoriasis Recurrent falls Recurrent syncope Seizure disorder Transient hypotension Home Medications albuterol sulfate 90 mcg/actuation aerosol inhaler 2 puff inhalation Q4H PRN Wheezing 09/03/22 [History Last Taken 09/04/23] atorvastatin 80 mg tablet 80 mg PO QHS . 09/03/22 [History Last Taken 10/08/23] zcbvpxofpa-qsfhcaravotrb-fwoirlxl 50 mg-325 mg-40 mg tablet 1 tab PO Q6H PRN Headache 09/03/22 [History Last Taken 09/04/23] diclofenac sodium 75 mg tablet,delayed release 75 mg PO BID PRN pain 09/03/22 [History Last Taken 09/04/23] docusate sodium 100 mg capsule 100 mg PO BID CONSTIPATION 09/03/22 [History Last Taken 09/03/23] ergocalciferol (vitamin D2) 1,250 mcg (50,000 unit) capsule 50,000 unit PO MO Check with primary doctor 09/03/22 [History Last Taken 10/04/23] flash glucose scanning reader (Broadcast InternationalStyle Es 2 [place]) 09/03/22 [History Last Taken Unknown] flash glucose sensor (FreeStyle Es 2 Sensor kit) 09/03/22 [History Last Taken Unknown] gabapentin 100 mg capsule 100 mg PO BID . 09/03/22 [History Last Taken 10/09/23] gabapentin 800 mg tablet 800 mg PO QHS PAIN 09/03/22 [History Last Taken 10/08/23] glucagon 1 mg injection kit 1 mg IM Check with primary doctor 09/03/22 [History Last Taken Unknown] insulin syr/ndl U100 half shirley 0.5 mL 31 gauge x 5/16 (Droplet Insulin Syringe (half unit)) 09/03/22 [History Last Taken Unknown] omeprazole 40 mg capsule,delayed release 40 mg PO DAILY GERD 09/03/22 [History Last Taken 10/09/23] promethazine 25 mg tablet 25 mg PO Q6H PRN PRN Nausea #12 TABLETS 11/08/22 [Rx Last Taken 09/04/23] dextromethorphan 20 mg-quinidine 10 mg capsule (Nuedexta) 1 cap PO BID DEPRESSION 02/06/23 [History Last Taken 10/09/23] ubrogepant 100 mg tablet (Ubrelvy) 100 mg PO .COMPLEX PRN MIGRAINE 02/06/23 [History Last Taken 09/04/23] duloxetine 60 mg capsule,delayed release 60 mg PO BID . 05/31/23 [History Last Taken 10/09/23] insulin glargine 100 unit/mL (3 mL) subcutaneous pen See Rx Instructions subcut BID DM 05/31/23 [History Last Taken 10/09/23] furosemide 20 mg tablet (Lasix) 20 mg PO DAILY EDEMA 07/29/23 [History Last Taken 10/09/23] semaglutide 0.25 mg or 0.5 mg (2 mg/3 mL) subcutaneous pen injector (Ozempic) 0.25 mg subcut QWEEK . 07/29/23 [History Last Taken 10/06/23] tizanidine 4 mg tablet 4 mg PO Q8H PRN muscle spasticity 07/29/23 [History Last Taken 09/04/23] galcanezumab-gnlm 120 mg/mL subcutaneous pen injector (Emgality Pen) 120 mg subcut .COMPLEX . 09/04/23 [History Last Taken 10/03/23] insulin lispro 100 unit/mL subcutaneous solution 1 sliding scale dose subcut ACHS DIABETES 09/04/23 [History Last Taken 09/04/23] meclizine 25 mg tablet 25 mg PO DAILY PRN NAUSEA 09/04/23 [History Last Taken 09/04/23] midodrine 10 mg tablet 10 mg PO TID . 09/04/23 [History Last Taken 10/09/23] nystatin 100,000 unit/gram topical powder (Nyamyc) 1 applic topical BID RASH 09/04/23 [History Last Taken 10/09/23] potassium chloride 10 mEq tablet,extended release 10 meq PO DAILY SUPPLEMENT 09/04/23 [History Last Taken 10/09/23] topiramate 200 mg tablet 200 mg PO Q12H , 09/04/23 [History Last Taken 10/09/23] vitamin B complex 1 tab PO BID SUPPLEMENT 09/04/23 [History Last Taken 09/04/23] fluticasone propionate 220 mcg/actuation HFA aerosol inhaler 1 puff inhalation Q12H 09/10/23 [History Last Taken Unknown] hydroxyzine HCl 25 mg tablet 50 mg PO DAILY PRN itching 09/10/23 [History Last Taken Unknown] ipratropium 0.5 mg-albuterol 3 mg (2.5 mg base)/3 mL nebulization soln 3 ml inhalation Q6H PRN shortness of breath or wheezing 09/10/23 [History Last Taken Unknown] melatonin 5 mg capsule 12 mg PO QHS SLEEP 09/10/23 [History Last Taken 10/08/23] lorazepam 0.5 mg tablet 0.5 mg PO QHS PRN Anxiety 10/09/23 [History Last Taken Unknown] carbamazepine 200 mg tablet (Tegretol) 200 mg PO 0900,1700 seizure 10/10/23 [History Last Taken 10/10/23] carbamazepine 200 mg tablet (Tegretol) 300 mg PO QHS seizures 10/10/23 [History Last Taken 10/09/23] oxycodone 5 mg tablet 5 - 10 mg (1 - 2 x 5 mg) PO Q4H PRN PRN PAIN 4-10 5 days #20 tabs 10/11/23 [Rx Last Taken Unknown] cephalexin 500 mg capsule 500 mg PO Q12 #14 CAPSULES 10/20/23 [Rx Last Taken Unknown] ondansetron 4 mg disintegrating tablet 4 mg PO Q8H PRN PRN Nausea #10 tabs 10/20/23 [Rx Last Taken Unknown] Allergy/AdvReac Type Severity Reaction Status Date / Time adhesive tape Allergy Intermediate Rash Verified 10/20/23 13:00 latex Allergy Rash Verified 10/20/23 13:00 levofloxacin [From Levaquin] Allergy Hives Verified 10/20/23 13:00 ondansetron [From Zofran] Allergy Hives Verified 10/20/23 13:00 nalbuphine [From Nubain] AdvReac Other Verified 10/20/23 13:00 Family History Father Cancer Mother Cancer Surgical History Hx of cholecystectomy Hx of tonsillectomy Hx of tubal ligation Social History household members: family and none housing: house Smoking Status: Former smoker alcohol intake: never substance use type: does not use ROS <Dr. Raudel Stoddard DO - Last Filed: 10/21/23 08:25> ROS ED Constitutional Constitutional ED: Denies chills, fever(s) or sweats Eyes Eyes: Denies change in vision ENT ENT ED: Denies dysphagia or sore throat Cardiovascular Cardiovascular: Reports chest pain; Denies leg edema, palpitations or racing heartbeat Respiratory/Chest Respiratory/Chest: Denies cough, dyspnea or dyspnea on exertion Gastrointestinal Gastrointestinal: Denies abdominal pain, diarrhea, nausea or vomiting Genitourinary Genitourinary ED: Reports dysuria; Denies hematuria or urinary frequency Musculoskeletal Musculoskeletal: Denies back pain, extremity pain or neck pain Integumentary Denies rash or wounds Neurologic Neurologic: Denies headache(s), paresthesias or weakness EXAM <Dr. Raudel Stoddard DO - Last Filed: 10/21/23 08:25> Physical Exam Const Vital Signs: 10/20/23 13:04 10/20/23 13:11 10/20/23 13:14 Temperature 97.9 F Temperature Source Oral Pulse Rate 69 68 Respiratory Rate 23 H 28 H Respiratory Effort Normal Non-Labored Blood Pressure 174/72 H Blood Pressure Mean 106 Pulse Ox 100 100 Oxygen Delivery Method Room Air Room Air 10/20/23 13:43 10/20/23 14:46 10/20/23 15:00 Temperature Temperature Source Pulse Rate 60 59 L Respiratory Rate 17 12 Respiratory Effort Blood Pressure 152/87 H 160/93 H Blood Pressure Mean 108 115 Pulse Ox 97 99 99 Oxygen Delivery Method Room Air Room Air Room Air 10/20/23 16:00 10/20/23 17:01 10/20/23 17:55 Temperature 98.9 F Temperature Source Pulse Rate 60 63 60 Respiratory Rate 20 H 13 20 H Respiratory Effort Blood Pressure 146/74 H 147/60 H 143/50 H Blood Pressure Mean 98 89 81 Pulse Ox 98 97 96 Oxygen Delivery Method Room Air Positive well nourished and well developed General Appearance ED: well developed and NAD HEENT Reports moist mucous membranes normocephalic and atraumatic Eyes PERRL, EOMs intact bilaterally and conjunctivae normal General Eye ED: Yes normal appearance of both eyes Neck no lymphadenopathy and supple General: Negative for tenderness Chest Wall Chest: Negative for tenderness Resp normal respiratory effort and normal air movement Effort and Inspection: symmetric chest movement; Negative for respiratory distress Cardio regular rate, regular rhythm and no murmurs Peripheral Pulses: pulses 2+ throughout GI normal to inspection, nondistended, normoactive bowel sounds and non-tender Palpation: Negative for guarding or rebound tenderness present Back/Spine no CVA tenderness and no thoracic nor lumbar tenderness Extremity normal to inspection General Extremety ED: Negative for edema or tenderness General Extremity: Negative for edema Neuro oriented x3 and no sensory deficits noted Sensorium / Orientation: awake and alert Skin no rashes or lesions noted and no wounds <Isaak Arnold MD - Last Filed: 10/20/23 17:47> Physical Exam Const Vital Signs: 10/20/23 13:04 10/20/23 13:11 10/20/23 13:14 Temperature 97.9 F Temperature Source Oral Pulse Rate 69 68 Respiratory Rate 23 H 28 H Respiratory Effort Normal Non-Labored Blood Pressure 174/72 H Blood Pressure Mean 106 Pulse Ox 100 100 Oxygen Delivery Method Room Air Room Air 10/20/23 13:43 10/20/23 14:46 10/20/23 15:00 Temperature Temperature Source Pulse Rate 60 59 L Respiratory Rate 17 12 Respiratory Effort Blood Pressure 152/87 H 160/93 H Blood Pressure Mean 108 115 Pulse Ox 97 99 99 Oxygen Delivery Method Room Air Room Air Room Air 10/20/23 16:00 10/20/23 17:01 10/20/23 17:55 Temperature 98.9 F Temperature Source Pulse Rate 60 63 60 Respiratory Rate 20 H 13 20 H Respiratory Effort Blood Pressure 146/74 H 147/60 H 143/50 H Blood Pressure Mean 98 89 81 Pulse Ox 98 97 96 Oxygen Delivery Method Room Air <Dr. Raudel Stoddard DO - Last Filed: 10/21/23 08:25> Heart Score History: Slightly/Non-Suspicious ECG: Normal Age: >45 - <65 years Risk Factors: 1 or 2 Risk Factors Troponin: </= Normal Limit Score: 2 <Isaak Arnold MD - Last Filed: 10/20/23 17:47> Heart Score Score: 2 MDM <Dr. Raudel Stoddard DO - Last Filed: 10/21/23 08:25> MDM MDM Narrative Medical decision making narrative: Interventions / MDM: Differential diagnosis: Atypical chest pain, UTI Diagnosis considered but do not suspect: ACS however EKG no ischemic changes, cardiac enzymes negative. My EKG interpretation: Sinus rate of 74, no ST changes, isolated T wave version aVL. Nonspecific. Imaging independently reviewed and interpreted by myself: 1 view chest x-ray: No acute process. Also read by radiology. External documents reviewed: N/A Test considered but not ordered:N/A ED course: Patient transient chest pains, EKG no acute findings. Cardiac workup initiated. Urine ordered with her dysuria complaints. 1540: Difficulty with lab draws, unable to give IV however blood was sent to the lab. Initial troponin negative electrolytes were normal. She reported headache with her migraine history. She typically takes Fioricet. Reports mild nausea. Able to tolerate Phenergan. This was ordered. Urine also with her noting signs of infection culture sent. Keflex ordered for antibiotics. Patient require delta troponin for cardiac rule out. Will plan on treatment for UTI antiemetics for nausea. She will be signed out to oncoming physician. Patient re-evaluation: stable Disposition discussed with patient/family/significant other: Case discussed with consulting clinician: N/A This note was generated with [employer]ACT dictation software. It may contain incorrect words, spelling, and punctuation that were not noted in checking the note before signing. Lab Data Attestation: I reviewed the patient's lab results. Labs: Laboratory Results - last 24 hr 10/20/23 10/20/23 10/20/23 14:05 14:30 14:30 WBC Cancelled Corrected WBC Cancelled RBC Cancelled Hgb Cancelled Hct Cancelled MCV Cancelled MCH Cancelled MCHC Cancelled RDW Std Deviation Cancelled RDW Coeff of He Cancelled Plt Count Cancelled MPV Cancelled Immature Gran % (Auto) Cancelled Neut % (Auto) Cancelled Lymph % (Auto) Cancelled [place] % (Auto) Cancelled Eos % (Auto) Cancelled Baso % (Auto) Cancelled Absolute Neuts (auto) Cancelled Absolute Lymphs (auto) Cancelled Total Counted Cancelled Neutrophils % (Manual) Cancelled Band Neutrophils % Cancelled Lymphocytes % (Manual) Cancelled Monocytes % (Manual) Cancelled Eosinophils % (Manual) Cancelled Basophils % (Manual) Cancelled Metamyelocytes % Cancelled Myelocytes % Cancelled Promyelocytes % Cancelled Blast Cells % Cancelled Plasma Cell % (Manual) Cancelled Other Cells % Cancelled Nucleated RBC % Cancelled Nucleated RBCs/100 WBC Cancelled Differential Comment Cancelled Diff Path Review Cancelled Hypersegmented Neuts Cancelled Atypical Lymphocytes Cancelled Reactive Lymphocytes Cancelled Smudge Cells Cancelled Toxic Granulation Cancelled Toxic Vacuolation Cancelled Dohle Bodies Cancelled Darron Rods Cancelled Platelet Estimate Cancelled Plt Morphology Comment Cancelled RBC Morphology Cancelled Cancelled Polychromasia Cancelled Hypochromasia Cancelled Basophilic Stippling Cancelled Anisocytosis Cancelled Microcytosis Cancelled Macrocytosis Cancelled Spherocytes Cancelled Sickle Cells Cancelled Target Cells Cancelled Tear Drop Cells Cancelled Ovalocytes Cancelled Stomatocytes Cancelled [place] Bodies Cancelled Ana Cells Cancelled Bite Cells Cancelled Crenated Cell Cancelled Acanthocytes (Spur) Cancelled Rouleaux Cancelled Schistocytes Cancelled Sodium 135 L Potassium 4.9 Chloride 113 H Carbon Dioxide 18.0 L Anion Gap 4 L BUN 35 H Creatinine 0.87 Estim Creat Clear Calc 86.07 Est GFR (MDRD) Af Amer 86 Est GFR (MDRD) Non-Af 71 BUN/Creatinine Ratio 40.1 H Glucose 153 H Calcium 8.6 Troponin I High Sens 4 Urine Color Yellow Urine Clarity Clear Urine pH 6.5 Ur Specific [place] 1.010 Urine Protein Negative Urine Glucose (UA) Normal Urine Ketones Negative Urine Occult Blood Negative Urine Nitrite Positive H Urine Bilirubin Negative Urine Urobilinogen Normal Ur Leukocyte Esterase 100 H Urine RBC 0 SEEN Urine WBC 0-5 SEEN Ur Squamous Epith Cells 0-5 SEEN Urine Bacteria 4+ Urine Mucus 0 SEEN Carbamazepine 9.1 10/20/23 10/20/23 15:48 17:18 WBC 8.1 Corrected WBC RBC 3.76 L Hgb 10.6 L Hct 34.3 L MCV 91.2 MCH 28.2 MCHC 30.9 L RDW Std Deviation 43.7 RDW Coeff of He 13.3 Plt Count 283 MPV 10.9 Immature Gran % (Auto) 0.500 Neut % (Auto) 63.9 Lymph % (Auto) 28.7 [place] % (Auto) 5.2 Eos % (Auto) 1.2 Baso % (Auto) 0.5 Absolute Neuts (auto) 5.1 Absolute Lymphs (auto) 2.31 Total Counted Neutrophils % (Manual) Band Neutrophils % Lymphocytes % (Manual) Monocytes % (Manual) Eosinophils % (Manual) Basophils % (Manual) Metamyelocytes % Myelocytes % Promyelocytes % Blast Cells % Plasma Cell % (Manual) Other Cells % Nucleated RBC % 0 Nucleated RBCs/100 WBC Differential Comment Diff Path Review Hypersegmented Neuts Atypical Lymphocytes Reactive Lymphocytes Smudge Cells Toxic Granulation Toxic Vacuolation Dohle Bodies Darron Rods Platelet Estimate Plt Morphology Comment RBC Morphology Polychromasia Hypochromasia Basophilic Stippling Anisocytosis Microcytosis Macrocytosis Spherocytes Sickle Cells Target Cells Tear Drop Cells Ovalocytes Stomatocytes [place] Bodies Ana Cells Bite Cells Crenated Cell Acanthocytes (Spur) Rouleaux Schistocytes Sodium Potassium Chloride Carbon Dioxide Anion Gap BUN Creatinine Estim Creat Clear Calc Est GFR (MDRD) Af Amer Est GFR (MDRD) Non-Af BUN/Creatinine Ratio Glucose Calcium Troponin I High Sens 5 Urine Color Urine Clarity Urine pH Ur Specific [place] Urine Protein Urine Glucose (UA) Urine Ketones Urine Occult Blood Urine Nitrite Urine Bilirubin Urine Urobilinogen Ur Leukocyte Esterase Urine RBC Urine WBC Ur Squamous Epith Cells Urine Bacteria Urine Mucus Carbamazepine Radiography Diagnostic Testing: Clinical Impression(s) from Imaging Studies Chest X-Ray 10/20/23 14:18 IMPRESSION: Normal x-ray examination of the chest. Electronically Signed: Luis Enrique Irwin MD at 14:29 EDT , <Isaak Arnold MD - Last Filed: 10/20/23 17:47> MDM MDM Narrative Medical decision making narrative: Interventions / MDM: Differential diagnosis: Atypical chest pain, UTI Diagnosis considered but do not suspect: ACS however EKG no ischemic changes, cardiac enzymes negative. My EKG interpretation: Sinus rate of 74, no ST changes, isolated T wave version aVL. Nonspecific. Imaging independently reviewed and interpreted by myself: 1 view chest x-ray: No acute process. Also read by radiology. External documents reviewed: N/A Test considered but not ordered:N/A ED course: Patient transient chest pains, EKG no acute findings. Cardiac workup initiated. Urine ordered with her dysuria complaints. 1540: Difficulty with lab draws, unable to give IV however blood was sent to the lab. Initial troponin negative electrolytes were normal. She reported headache with her migraine history. She typically takes Fioricet. Reports mild nausea. Able to tolerate Phenergan. This was ordered. Urine also with her noting signs of infection culture sent. Keflex ordered for antibiotics. Patient require delta troponin for cardiac rule out. Will plan on treatment for UTI antiemetics for nausea. She will be signed out to oncoming physician. Patient re-evaluation: stable Disposition discussed with patient/family/significant other: Case discussed with consulting clinician: N/A This note was generated with [employer]ACT dictation software. It may contain incorrect words, spelling, and punctuation that were not noted in checking the note before signing. Dr. Arnold: Patient was endorsed to me by Dr. Raudel Stoddard to check the second troponin on this patient with atypical chest pain. Her second troponin is 5 for a delta of 1. At this point in time, I feel she can [facility]. Disposition is discharged in stable condition. Lab Data Labs: Laboratory Results - last 24 hr 10/20/23 10/20/23 10/20/23 14:05 14:30 14:30 WBC Cancelled Corrected WBC Cancelled RBC Cancelled Hgb Cancelled Hct Cancelled MCV Cancelled MCH Cancelled MCHC Cancelled RDW Std Deviation Cancelled RDW Coeff of He Cancelled Plt Count Cancelled MPV Cancelled Immature Gran % (Auto) Cancelled Neut % (Auto) Cancelled Lymph % (Auto) Cancelled [place] % (Auto) Cancelled Eos % (Auto) Cancelled Baso % (Auto) Cancelled Absolute Neuts (auto) Cancelled Absolute Lymphs (auto) Cancelled Total Counted Cancelled Neutrophils % (Manual) Cancelled Band Neutrophils % Cancelled Lymphocytes % (Manual) Cancelled Monocytes % (Manual) Cancelled Eosinophils % (Manual) Cancelled Basophils % (Manual) Cancelled Metamyelocytes % Cancelled Myelocytes % Cancelled Promyelocytes % Cancelled Blast Cells % Cancelled Plasma Cell % (Manual) Cancelled Other Cells % Cancelled Nucleated RBC % Cancelled Nucleated RBCs/100 WBC Cancelled Differential Comment Cancelled Diff Path Review Cancelled Hypersegmented Neuts Cancelled Atypical Lymphocytes Cancelled Reactive Lymphocytes Cancelled Smudge Cells Cancelled Toxic Granulation Cancelled Toxic Vacuolation Cancelled Dohle Bodies Cancelled Darron Rods Cancelled Platelet Estimate Cancelled Plt Morphology Comment Cancelled RBC Morphology Cancelled Cancelled Polychromasia Cancelled Hypochromasia Cancelled Basophilic Stippling Cancelled Anisocytosis Cancelled Microcytosis Cancelled Macrocytosis Cancelled Spherocytes Cancelled Sickle Cells Cancelled Target Cells Cancelled Tear Drop Cells Cancelled Ovalocytes Cancelled Stomatocytes Cancelled [place] Bodies Cancelled [place] Cells Cancelled Bite Cells Cancelled Crenated Cell Cancelled Acanthocytes (Spur) Cancelled Rouleaux Cancelled Schistocytes Cancelled Sodium 135 L Potassium 4.9 Chloride 113 H Carbon Dioxide 18.0 L Anion Gap 4 L BUN 35 H Creatinine 0.87 Estim Creat Clear Calc 86.07 Est GFR (MDRD) Af Amer 86 Est GFR (MDRD) Non-Af 71 BUN/Creatinine Ratio 40.1 H Glucose 153 H Calcium 8.6 Troponin I High Sens 4 Urine Color Yellow Urine Clarity Clear Urine pH 6.5 Ur Specific [place] 1.010 Urine Protein Negative Urine Glucose (UA) Normal Urine Ketones Negative Urine Occult Blood Negative Urine Nitrite Positive H Urine Bilirubin Negative Urine Urobilinogen Normal Ur Leukocyte Esterase 100 H Urine RBC 0 SEEN Urine WBC 0-5 SEEN Ur Squamous Epith Cells 0-5 SEEN Urine Bacteria 4+ Urine Mucus 0 SEEN Carbamazepine 9.1 10/20/23 10/20/23 15:48 17:18 WBC 8.1 Corrected WBC RBC 3.76 L Hgb 10.6 L Hct 34.3 L MCV 91.2 MCH 28.2 MCHC 30.9 L RDW Std Deviation 43.7 RDW Coeff of He 13.3 Plt Count 283 MPV 10.9 Immature Gran % (Auto) 0.500 Neut % (Auto) 63.9 Lymph % (Auto) 28.7 [place] % (Auto) 5.2 Eos % (Auto) 1.2 Baso % (Auto) 0.5 Absolute Neuts (auto) 5.1 Absolute Lymphs (auto) 2.31 Total Counted Neutrophils % (Manual) Band Neutrophils % Lymphocytes % (Manual) Monocytes % (Manual) Eosinophils % (Manual) Basophils % (Manual) Metamyelocytes % Myelocytes % Promyelocytes % Blast Cells % Plasma Cell % (Manual) Other Cells % Nucleated RBC % 0 Nucleated RBCs/100 WBC Differential Comment Diff Path Review Hypersegmented Neuts Atypical Lymphocytes Reactive Lymphocytes Smudge Cells Toxic Granulation Toxic Vacuolation Dohle Bodies Darron Rods Platelet Estimate Plt Morphology Comment RBC Morphology Polychromasia Hypochromasia Basophilic Stippling Anisocytosis Microcytosis Macrocytosis Spherocytes Sickle Cells Target Cells Tear Drop Cells Ovalocytes Stomatocytes Faith[place] Bodies [place] Cells Bite Cells Crenated Cell Acanthocytes (Spur) Rouleaux Schistocytes Sodium Potassium Chloride Carbon Dioxide Anion Gap BUN Creatinine Estim Creat Clear Calc Est GFR (MDRD) Af Amer Est GFR (MDRD) Non-Af BUN/Creatinine Ratio Glucose Calcium Troponin I High Sens 5 Urine Color Urine Clarity Urine pH Ur Specific [place] Urine Protein Urine Glucose (UA) Urine Ketones Urine Occult Blood Urine Nitrite Urine Bilirubin Urine Urobilinogen Ur Leukocyte Esterase Urine RBC Urine WBC Ur Squamous Epith Cells Urine Bacteria Urine Mucus Carbamazepine Radiography Diagnostic Testing: Clinical Impression(s) from Imaging Studies Chest X-Ray 10/20/23 14:18 IMPRESSION: Normal x-ray examination of the chest. Electronically Signed: Luis Enrique Irwin MD at 14:29 EDT , Discharge Plan Triage Chief Complaint: Chest Pain ED Provider: Raudel Stoddard Dx/Rx/DC Orders Clinical Impression: Urinary tract infection, Hx of seizure disorder, Chest pain Instructions: Urinary Tract Infections in Women, ED Chest Pain, Uncertain Cause Prescriptions: New cephalexin [cephalexin] 500 mg capsule 500 mg PO Q12 Qty: 14 0RF ondansetron [ondansetron] 4 mg tablet,disintegrating 4 mg PO Q8H PRN PRN (Reason: Nausea) Qty: 10 0RF No Action atorvastatin 80 mg tablet 80 mg PO QHS Patient Comments: TAKE ONE TABLET BY MOUTH DAILY AT 9PM AT BEDTIME [id number] 50-325-40 mg Tablet 1 tab PO Q6H PRN (Reason: Headache) glucagon 1 mg Kit 1 mg IM Hold Instructions: Pt is ill omeprazole 40 mg capsule,delayed release(DR/EC) 40 mg PO DAILY Patient Comments: TAKE ONE CAPSULE BY MOUTH DAILY AT 9AM gabapentin 800 mg tablet 800 mg PO QHS Patient Comments: TAKE ONE TABLET BY MOUTH DAILY AT 9PM AT BEDTIME docusate sodium 100 mg Capsule 100 mg PO BID diclofenac sodium 75 mg tablet,delayed release (DR/EC) 75 mg PO BID PRN (Reason: pain) Patient Comments: TAKE ONE TABLET BY MOUTH TWICE DAILY NEEDED (VIAL) gabapentin 100 mg Capsule 100 mg PO BID Rx Instructions: MORNING AND NOON albuterol sulfate 90 mcg/actuation HFA aerosol inhaler 2 puff INHALATION Q4H PRN (Reason: Wheezing) Patient Comments: INHALE TWO PUFFS BY MOUTH DIRECTED EVERY 6 HOURS NEEDED FOR WHEEZING OR FOR SHORTNESS OF BREATH (BULK) (DME) FreeStyle Es 2 Sensor Kit MISCELLANEOUS Patient Comments: apply 1 SENSOR to back OF UPPER ARM REMOVE AND REPLACE every 14 d... (REFER TO PRESCRIPTION NOTES). (DME) FreeStyle Es 2 [place] Misc MISCELLANEOUS Patient Comments: USE CONTINUOUSLY TO MONITOR BLOOD SUGARS DAILY (DME) Droplet Insulin Syr(half unit) 0.5 mL 31 gauge x 5/16 syringe MISCELLANEOUS Patient Comments: USE TO INJECT INSULIN UNDER THE SKIN EVERY MEAL AND AT BEDTIME PER SLIDING SCALE ergocalciferol (vitamin D2) 1,250 mcg (50,000 unit) capsule 50,000 unit PO MO Patient Comments: TAKE 1 CAPSULE BY MOUTH EVERY WEDNESDAY AT 9AM Rx Instructions: takes on mondays promethazine 25 mg tablet 25 mg PO Q6H PRN PRN (Reason: Nausea) Qty: 12 0RF insulin glargine 100 unit/mL (3 mL) insulin pen See Rx Instructions SUBCUT BID Rx Instructions: 22 units in the morning, 15 units at bedtime subcutaneously twice a day; duloxetine 60 mg capsule,delayed release(DR/EC) 60 mg PO BID Patient Comments: TAKE ONE CAPSULE BY MOUTH TWICE DAILY Nuedexta 20-10 mg capsule 1 cap PO BID Ubrelvy 100 mg tablet 100 mg PO .COMPLEX PRN (Reason: MIGRAINE) Rx Instructions: TAKE 1 TABLET BY MOUTH AT ONSET OF MIGRAINE. IF NO IMPROVEMENT WITHIN 2 HRS TAKE 1 TABLET. DO NOT EXCEED 2 TABS IN 24 HOURS furosemide [Lasix] 20 mg tablet 20 mg PO DAILY Ozempic 0.25 mg or 0.5 mg (2 mg/3 mL) pen injector 0.25 mg SUBCUT QWEEK Patient Comments: INJECT 0.25 MG SUBCUTANEOUSLY ONCE A WEEK Rx Instructions: WEDNESDAY tizanidine 4 mg tablet 4 mg PO Q8H PRN (Reason: muscle spasticity) Patient Comments: TAKE ONE TABLET BY MOUTH EVERY 8 HOURS NEEDED (VIAL) Emgality Pen 120 mg/mL pen injector 120 mg SUBCUT .COMPLEX Patient Comments: INJECT 1 ML (120MG TOTAL) UNDER THE SKIN EVERY 28 DAYS (BULK) Rx Instructions: 120 mg subcutaneously Q28D; insulin lispro 100 unit/mL solution 1 sliding scale dose subcut ACHS Rx Instructions: INJECT PER SLIDING SCALE THREE TIMES DAILY FOLLOWS ONE UNIT IF BG LESS THAN 110, TWO UNITS FOR BG 111-150, FOUR UNITS FOR BG 151-200, SEVEN UNITS FOR BG 201-250, 10 UNITS FOR BG 251-300, 13 UNITS FOR BG 301-350, 16 UNITS FOR BG 351-400, CALL MD IF BG OVER 400 (MAX 48 UNITS PER DAY) meclizine 25 mg tablet 25 mg PO DAILY PRN Patient Comments: TAKE ONE TABLET BY MOUTH BID midodrine 10 mg tablet 10 mg PO TID Patient Comments: take 1 tablet by mouth three times a day potassium chloride 10 mEq tablet extended release 10 meq PO DAILY nystatin [Nyamyc] 100,000 unit/gram powder 1 applic TOPICAL BID Patient Comments: apply to affected area twice a day if needed topiramate 200 mg tablet 200 mg PO Q12H Patient Comments: TAKE ONE TABLET BY MOUTH TWICE DAILY (VIAL) vitamin B complex Tablet 1 tab PO BID fluticasone propionate 220 mcg/actuation HFA aerosol inhaler 1 puff inhalation Q12H Rx Instructions: RINSE MOUTH AFTER EACH USE hydroxyzine HCl 25 mg tablet 50 mg PO DAILY PRN (Reason: itching) ipratropium-albuterol 0.5 mg-3 mg(2.5 mg base)/3 mL solution for nebulization 3 ml inhalation Q6H PRN (Reason: shortness of breath or wheezing) melatonin 5 mg capsule 12 mg PO QHS lorazepam 0.5 mg tablet 0.5 mg PO QHS PRN carbamazepine [Tegretol] 200 mg tablet 200 mg PO 0900,1700 carbamazepine [Tegretol] 200 mg tablet 300 mg PO QHS oxycodone 5 mg Tablet 5 - 10 mg PO Q4H PRN PRN (Reason: PAIN 4-10) 5 Days Qty: 20 0RF Primary Care Provider: Vi Eng Referrals: Vi Eng DO [Primary Care Provider] - 3-5 Days Activity Restrictions/Additional Instructions: Urine with findings of UTI. Take and finish antibiotic as prescribed. Culture pending. Your cardiac workup negative. Disposition Disposition: Home, Self Care Discharge Date/Time: 10/20/23 18:53
[2023-10-20 15:55] LABS: Absolute Lymphocyte Count 2.31 X10^3/uL (0.83-4.51); Absolute Neutrophil Count 5.1 X10^3/uL (2.0-7.7); Basophil# 0.04 X10^3/uL; Basophil% 0.5 % (0-1); Eosinophils% 1.2 % (0-5); Hematocrit 34.3 % (37-47); Hemoglobin 10.6 g/dL (12.0-15.0); Lymphocyte # 2.31 X10^3/ul (0.83-4.51); Lymphocyte % 28.7 % (19-41); Mean Corp Hgb Conc 30.9 g/dL (32-36); Mean Corpuscular Hgb 28.2 pg (27.0-32.0); Mean Corpuscular Volume 91.2 fL (81-99); Mean Platelet Vol. 10.9 fl (6.2-12.0); Monocyte# 0.42 X10^3/uL; Monocyte% 5.2 % (0-10); NRBC Flagged by Analyzer 0 % (0-5); Neutrophil # 5.14 X10^3/uL (2.7-7.7); Neutrophil % 63.9 % (47-70); Platelet Count 283 K/mm3 (150-450); RBC Distribution Width CV 13.3 % (11.6-14.6); RBC Distribution Width SD 43.7 fl (35.1-43.9); Red Blood Count 3.76 M/mm3 (4.2-5.4); White Blood Count 8.1 K/mm3 (4.4-11.0)
[2023-10-20] MEDS: Cephalexin 250 MG Capsule 500 MG PO (16:13)
[2023-10-20] MEDS: proMETHazine 25 MG Tablet PO (16:13)
[2023-10-20] MEDS: Acetaminophen/Butalbital/Caffe 1 Tablet PO (16:14)
[2023-10-20 16:39] LABS: Reflex Troponin-HS? (from REC) Y
[2023-10-20 17:41] LABS: Troponin-I HS 5 pg/mL (3.0-54.0)
[2023-10-20 18:26] LABS: Carbamazepine (Tegretol) 9.1 ug/mL (4.0-12.0)
== END 2023-10-20 18:53 | disposition home or self-care (01) ==
PROVIDERS: Emergency Provider Emergency Medicine; PCP Family Medicine; Visit Provider Emergency Medicine
DX: N39.0 Urinary tract infection, site not specified (principal); J44.9 Chronic obstructive pulmonary disease, unspecified; G40.909 Epilepsy, unspecified, not intractable, without status epilepticus; Z79.4 Long term (current) use of insulin; E11.9 Type 2 diabetes mellitus without complications; R07.9 Chest pain, unspecified; K21.9 Gastro-esophageal reflux disease without esophagitis; Z79.899 Other long term (current) drug therapy; F32.A Depression, unspecified; F41.9 Anxiety disorder, unspecified; Z86.73 Personal history of transient ischemic attack (TIA), and cerebral infarction without residual deficits; Z87.891 Personal history of nicotine dependence
CPT/HCPCS: 36415; 71045; 80048; 80156; 81001; 84484; 85025; 93005; 99284

== ENCOUNTER → 2023-10-25 04:00 | Outpatient (REF) | payer MEDICARE, MEDICAID, SELFPAY ==
[2023-10-25 09:18] LABS: Absolute Neutrophil Count 3.2 X10^3/uL (2.0-7.7); Basophil# 0.05 X10^3/uL; Basophil% 0.8 % (0-1); Eosinophil# 0.07 X10^3/uL; Eosinophils% 1.1 % (0-5); Hematocrit 33.4 % (37-47); Hemoglobin 10.1 g/dL (12.0-15.0); Lymphocyte % 41.3 % (19-41); Mean Corp Hgb Conc 30.2 g/dL (32-36); Mean Corpuscular Hgb 27.7 pg (27.0-32.0); Mean Corpuscular Volume 91.8 fL (81-99); Mean Platelet Vol. 11.7 fl (6.2-12.0); Monocyte# 0.47 X10^3/uL; Monocyte% 7.2 % (0-10); NRBC Flagged by Analyzer 0 % (0-5); Neutrophil # 3.22 X10^3/uL (2.7-7.7); Neutrophil % 49.3 % (47-70); Platelet Count 262 K/mm3 (150-450); RBC Distribution Width CV 13.2 % (11.6-14.6); RBC Distribution Width SD 44.8 fl (35.1-43.9); Red Blood Count 3.64 M/mm3 (4.2-5.4); White Blood Count 6.5 K/mm3 (4.4-11.0)
[2023-10-25 09:34] LABS: Anion Gap 6 (5-15); BUN 32 mg/dL (7-18); BUN/Creat Ratio 38.1 RATIO (10-20); Calcium,Total 8.7 mg/dL (8.5-10.1); Chloride 115 mmol/L (98-107); Creatinine, Serum 0.84 mg/dL (0.55-1.02); EST Glomerular Filtration Rate 74 mL/min (>60); Est Glom Filt Rate - Afr Amer 90 mL/min (>60); Glucose 149 mg/dL (74-106); Magnesium 2.3 mg/dL (1.6-2.6); Potassium 3.9 mmol/L (3.5-5.1); Sodium Level 142 mmol/L (136-145)
== END ==
LOC: OLS.SW 04:00
PROVIDERS: PCP Family Medicine; Referring Provider Internal Medicine; Visit Provider Internal Medicine
DX: I10 Essential (primary) hypertension (principal); E78.5 Hyperlipidemia, unspecified; J44.9 Chronic obstructive pulmonary disease, unspecified; N39.0 Urinary tract infection, site not specified; E11.9 Type 2 diabetes mellitus without complications; K35.80 Unspecified acute appendicitis; M62.81 Muscle weakness (generalized); G43.909 Migraine, unspecified, not intractable, without status migrainosus; F41.1 Generalized anxiety disorder; Z79.4 Long term (current) use of insulin
CPT/HCPCS: 36415; 80048; 83735; 85025

== ENCOUNTER 2023-11-12 21:25 | Inpatient (IN) | payer MEDICARE, MEDICAID, SELFPAY ==
[2023-11-12 21:27] VITALS: BP 111/54; PULSE 46; RESP 13; TEMP 35.9; O2SAT 98; BMI 37.9
[2023-11-12 21:31] VITALS: BP 108/60; PULSE 45; RESP 12; TEMP 35.9; O2SAT 99
--- NOTE | 2023-11-12 21:48 | CT_ITS ---
INDICATION: Dizziness EXAMINATION: CT BRAIN - CT Head or Brain W/O Contrast Injection TECHNIQUE: Serial CT axial images were obtained of the head without intravenous contrast. A radiation dose optimization technique was used for this scan. COMPARISON: 08/01/[address] Findings: Serial CT axial images of the head without contrast. BRAIN PARENCHYMA: Diffuse periventricular hypoattenuation likely chronic white matter ischemic changes. Mild diffuse volume loss. No evidence of intraparenchymal hemorrhage or hyperattenuating extra-axial fluid collection. VASCULAR STRUCTURES: Atherosclerotic vascular calcifications. BONES: Paranasal sinuses are clear. SCALP/REMAINING SOFT TISSUES: Unremarkable. ASPECTS Score for Acute Strokes, if applicable: 10 CT/Brain/Head without Contrast IMPRESSION: Age-related changes as above, without evidence of acute intracranial hemorrhage in this noncontrast head CT. Electronically Signed: Murtaza Harris MD at 22:31 EDT ,
--- NOTE | 2023-11-12 21:49 | EKG12_ITS ---
Test Reason : DIZINESS Blood Pressure : / mmHG Vent. Rate : 047 BPM Atrial Rate : 000 BPM P-R Int : 000 ms QRS Dur : 106 ms QT Int : 478 ms P-R-T Axes : 000 -39 060 degrees QTc Int : 423 ms Junctional rhythm Left axis deviation Incomplete right bundle branch block Moderate voltage criteria for LVH, may be normal variant ( R in aVL , [place] product ) Abnormal ECG Confirmed by ROB WHITE, PHILLIP ([id number]), supervising editor news reel MEGAN CARPIO ([id number]) on 11/15/2023 11:41:13 AM Referred By: JAY JAY Confirmed By:PHILLIP RIVAS MD
--- NOTE | 2023-11-12 21:49 | EX.ED.DYSGE1 ---
HPI History of Present Illness Chief Complaint: Dizziness Narrative Narrative: 58-year-old female presents from [facility] with generalized weakness, dizziness and lightheadedness, and bradycardia. Per senior living, she is also being treated for UTI. She relates past medical history that she has hypotension for which she takes midodrine. She states that for the last week she has not felt well. She is lightheaded and dizzy, occasionally nauseated. She denies any chest pain or shortness of breath. According to her senior living papers, she is not on a beta-shereen. No exacerbating or PFSH PFSH Medical History Allergic rhinitis Anxiety Brain TIA Chronic migraine COPD (chronic obstructive pulmonary disease) Depression Diabetes mellitus, type 2 Former smoker Former tobacco use Generalized weakness GERD (gastroesophageal reflux disease) History of CVA (cerebrovascular accident) HTN (hypertension) Hypercholesterolemia Migraines Multiple falls Obesity Orthostasis Psoriasis Recurrent falls Recurrent syncope Seizure disorder Transient hypotension Home Medications albuterol sulfate 90 mcg/actuation aerosol inhaler 2 puff inhalation Q4H PRN Wheezing 09/03/22 [History Last Taken 09/04/23] atorvastatin 80 mg tablet 80 mg PO QHS . 09/03/22 [History Last Taken 10/08/23] kezkihxauy-glcmitfkqpjrt-kivqmmla 50 mg-325 mg-40 mg tablet 1 tab PO Q6H PRN Headache 09/03/22 [History Last Taken 09/04/23] diclofenac sodium 75 mg tablet,delayed release 75 mg PO BID PRN pain 09/03/22 [History Last Taken 09/04/23] docusate sodium 100 mg capsule 100 mg PO BID CONSTIPATION 09/03/22 [History Last Taken 09/03/23] ergocalciferol (vitamin D2) 1,250 mcg (50,000 unit) capsule 50,000 unit PO MO Check with primary doctor 09/03/22 [History Last Taken 10/04/23] flash glucose scanning reader (DrizlyStyle Es 2 Delong) 09/03/22 [History Last Taken Unknown] flash glucose sensor (FreeStyle Es 2 Sensor kit) 09/03/22 [History Last Taken Unknown] gabapentin 100 mg capsule 100 mg PO BID . 09/03/22 [History Last Taken 10/09/23] gabapentin 800 mg tablet 800 mg PO QHS PAIN 09/03/22 [History Last Taken 10/08/23] glucagon 1 mg injection kit 1 mg IM Check with primary doctor 09/03/22 [History Last Taken Unknown] insulin syr/ndl U100 half shirley 0.5 mL 31 gauge x 5/16 (Droplet Insulin Syringe (half unit)) 09/03/22 [History Last Taken Unknown] omeprazole 40 mg capsule,delayed release 40 mg PO DAILY GERD 09/03/22 [History Last Taken 10/09/23] promethazine 25 mg tablet 25 mg PO Q6H PRN PRN Nausea #12 TABLETS 11/08/22 [Rx Last Taken 09/04/23] dextromethorphan 20 mg-quinidine 10 mg capsule (Nuedexta) 1 cap PO BID DEPRESSION 02/06/23 [History Last Taken 10/09/23] ubrogepant 100 mg tablet (Ubrelvy) 100 mg PO .COMPLEX PRN MIGRAINE 02/06/23 [History Last Taken 09/04/23] duloxetine 60 mg capsule,delayed release 60 mg PO BID . 05/31/23 [History Last Taken 10/09/23] insulin glargine 100 unit/mL (3 mL) subcutaneous pen See Rx Instructions subcut BID DM 05/31/23 [History Last Taken 10/09/23] furosemide 20 mg tablet (Lasix) 20 mg PO DAILY EDEMA 07/29/23 [History Last Taken 10/09/23] semaglutide 0.25 mg or 0.5 mg (2 mg/3 mL) subcutaneous pen injector (Ozempic) 0.25 mg subcut QWEEK . 07/29/23 [History Last Taken 10/06/23] tizanidine 4 mg tablet 4 mg PO Q8H PRN muscle spasticity 07/29/23 [History Last Taken 09/04/23] galcanezumab-gnlm 120 mg/mL subcutaneous pen injector (Emgality Pen) 120 mg subcut .COMPLEX . 09/04/23 [History Last Taken 10/03/23] insulin lispro 100 unit/mL subcutaneous solution 1 sliding scale dose subcut ACHS DIABETES 09/04/23 [History Last Taken 09/04/23] meclizine 25 mg tablet 25 mg PO DAILY PRN NAUSEA 09/04/23 [History Last Taken 09/04/23] midodrine 10 mg tablet 10 mg PO TID . 09/04/23 [History Last Taken 10/09/23] nystatin 100,000 unit/gram topical powder (Nyamyc) 1 applic topical BID RASH 09/04/23 [History Last Taken 10/09/23] potassium chloride 10 mEq tablet,extended release 10 meq PO DAILY SUPPLEMENT 09/04/23 [History Last Taken 10/09/23] topiramate 200 mg tablet 200 mg PO Q12H , 09/04/23 [History Last Taken 10/09/23] vitamin B complex 1 tab PO BID SUPPLEMENT 09/04/23 [History Last Taken 09/04/23] fluticasone propionate 220 mcg/actuation HFA aerosol inhaler 1 puff inhalation Q12H 09/10/23 [History Last Taken Unknown] hydroxyzine HCl 25 mg tablet 50 mg PO DAILY PRN itching 09/10/23 [History Last Taken Unknown] ipratropium 0.5 mg-albuterol 3 mg (2.5 mg base)/3 mL nebulization soln 3 ml inhalation Q6H PRN shortness of breath or wheezing 09/10/23 [History Last Taken Unknown] melatonin 5 mg capsule 12 mg PO QHS SLEEP 09/10/23 [History Last Taken 10/08/23] lorazepam 0.5 mg tablet 0.5 mg PO QHS PRN Anxiety 10/09/23 [History Last Taken Unknown] carbamazepine 200 mg tablet (Tegretol) 200 mg PO 0900,1700 seizure 10/10/23 [History Last Taken 10/10/23] carbamazepine 200 mg tablet (Tegretol) 300 mg PO QHS seizures 10/10/23 [History Last Taken 10/09/23] cephalexin 500 mg capsule 500 mg PO Q12 #14 CAPSULES 10/20/23 [Rx Last Taken Unknown] Allergy/AdvReac Type Severity Reaction Status Date / Time adhesive tape Allergy Intermediate Rash Verified 10/25/23 08:58 latex Allergy Rash Verified 10/25/23 08:58 levofloxacin [From Levaquin] Allergy Hives Verified 10/25/23 08:58 ondansetron [From Zofran] Allergy Hives Verified 10/25/23 08:58 nalbuphine [From Nubain] AdvReac Other Verified 10/25/23 08:58 Family History Father Cancer Mother Cancer Surgical History Hx of cholecystectomy Hx of tonsillectomy Hx of tubal ligation Social History (Updated 11/12/23 @ 23:[address] Tia Sneed MD) household members: family housing: senior living Smoking Status: Former smoker alcohol intake: never substance use type: does not use ROS ROS ED ROS Narrative Constitutional: No fever, no chills. Positive generalized weakness. HEENT: No sore throat. No neck pain. No loss of vision. No rhinorrhea. Cardiovascular: No chest pain. No palpitations. No pedal edema. Respiratory: No cough, no shortness of breath. Abdominal: No abdominal pain. Occasional nausea and vomiting. Genitourinary: No dysuria. No hematuria. Musculoskeletal: No myalgias. No arthralgias. Neurologic: No headaches. Positive dizziness and lightheadedness. Skin: No rash. No change in color. Psychiatric: No depression. No anxiety. EXAM Physical Exam Narrative Exam Narrative: Afebrile. Vital signs noted. HEENT: Normocephalic. Atraumatic. PERRL, EOMI. Neck soft and supple. No point tenderness or step off. Cardiovascular: Bradycardia in the 40s. No murmurs, rubs, or gallops appreciated. Respiratory: No tachypnea. Lungs clear to auscultation bilaterally. Gastrointestinal: Abdomen soft, nontender, with normoactive bowel sounds. No rebound or guarding. Neurological: Awake. Alert. Nonfocal, nonlateralizing. Skin: No rash. Normal color. No pallor. Musculoskeletal: No pedal edema. Full range of motion extremities. Const Vital Signs: 11/12/23 21:27 11/12/23 21:31 11/12/23 23:15 Temperature 96.6 F L 96.6 F L Temperature Source Tympanic Tympanic Pulse Rate 46 L 45 L 49 L Respiratory Rate 13 12 15 Blood Pressure 111/54 L 108/60 111/90 H Blood Pressure Mean 73 76 99 Pulse Ox 98 99 97 Oxygen Delivery Method Room Air Room Air MDM MDM MDM Narrative Medical decision making narrative: I reviewed her medication list and she is not on a beta-shereen or known AV steven shereen. EKG was obtained and interpreted by myself as junctional rhythm at 47 bpm. I do feel that her lightheadedness and dizziness and generalized weakness may be related to symptomatic bradycardia. Looking at the monitor, there is a small possibility of P waves so she may be having sinus bradycardia. Comprehensive workup was pursued. I will also obtain a CT of the brain, but I do not think that she is having cerebellar stroke. I reviewed the CT of the brain which shows chronic changes but no acute hemorrhage, no acute process. I reviewed her laboratory work and she has a normal white count of 9.7, hemoglobin stable at 9.7, platelet count normal at 215. Chloride is 111 and sodium normal at 123, potassium normal at 4.3. Glucose appropriately elevated 78, BUN of 35 and a creatinine of 1.0. High-sensitivity troponin is 7. She said that she has been weak for days. Her second troponin is currently pending. Urinalysis was obtained and reviewed and she is being treated for UTI. Nitrates are positive but she only has 5-10 WBCs in her urine and 1+ bacteria. Urine culture will be sent and she was administered Rocephin 1 g intravenously. Chest x-ray 1 view obtained and reviewed by myself and interpreted independently as no acute process, no pneumonia, no pneumothorax. I reviewed the radiology report which confirms my independent interpretation. Given the possibility of a junctional rhythm versus symptomatic bradycardia, I will discuss patient with Dr. Tia Sneed for admission. She is in stable condition. History & Record Review Additional record(s) reviewed:: Prior labs Lab Data Attestation: I reviewed the patient's lab results. Labs: Laboratory Results - last 24 hr 11/12/23 11/12/23 21:44 22:30 WBC 9.7 RBC 3.47 L Hgb 9.7 L Hct 32.2 L MCV 92.8 MCH 28.0 MCHC 30.1 L RDW Std Deviation 49.7 H RDW Coeff of He 15.0 H Plt Count 215 MPV 11.6 Immature Gran % (Auto) 0.300 Neut % (Auto) 52.8 Lymph % (Auto) 38.0 Sac % (Auto) 7.3 Eos % (Auto) 1.1 Baso % (Auto) 0.5 Absolute Neuts (auto) 5.1 Absolute Lymphs (auto) 3.67 Nucleated RBC % 0 Sodium 142 Potassium 4.3 Chloride 111 H Carbon Dioxide 25.0 Anion Gap 6 BUN 35 H Creatinine 1.01 Estim Creat Clear Calc 75.89 Est GFR (MDRD) Af Amer 73 Est GFR (MDRD) Non-Af 60 BUN/Creatinine Ratio 34.7 H Glucose 78 Calcium 8.4 L Total Bilirubin 0.20 AST 24 ALT 32 Alkaline Phosphatase 119 H Troponin I High Sens 7 Total Protein 7.0 Albumin 3.6 Globulin 3.4 Albumin/Globulin Ratio 1.1 Urine Color Yellow Urine Clarity Sl. Cloudy Urine pH 5.0 Ur Specific Huson 1.015 Urine Protein Negative Urine Glucose (UA) Normal Urine Ketones Negative Urine Occult Blood 10 H Urine Nitrite Positive H Urine Bilirubin Negative Urine Urobilinogen Normal Ur Leukocyte Esterase 500 H Urine RBC 0 SEEN Urine WBC 5-10 SEEN Ur Squamous Epith Cells 5-10 SEEN Urine Bacteria 1+ Urine Mucus 0 SEEN Radiography Diagnostic Testing: Clinical Impression(s) from Imaging Studies Brain CT 11/12/23 21:48 IMPRESSION: Age-related changes as above, without evidence of acute intracranial hemorrhage in this noncontrast head CT. Electronically Signed: Murtaza Harris MD at 22:31 EDT , Chest X-Ray 11/12/23 21:58 IMPRESSION: Chest with no acute disease. Electronically Signed: Murtaza Harris MD at 22:41 EDT , Discharge Plan Dx/Rx/DC Orders Clinical Impression: Symptomatic bradycardia, Dizziness, Lightheadedness, Generalized weakness, Complicated urinary tract infection Disposition Disposition: Acute Care Hospital [facility]
--- NOTE | 2023-11-12 21:58 | RAD_ITS ---
INDICATION: weakness EXAMINATION/TECHNIQUE: X-RAY - XR Chest 1 View COMPARISON: 10/20/2023 chest radiograph. Findings: Single frontal view of the chest. LUNG PARENCHYMA: No acute focal airspace disease or mass lesion. PLEURA: No pleural effusion. No pneumothorax. HEART/GREAT VESSELS: Cardiomediastinal silhouette is unremarkable. BONES: Osseous structures are unremarkable for age. RAD/Chest 1 View (Portable) IMPRESSION: Chest with no acute disease. Electronically Signed: Murtaza Harris MD at 22:41 EDT ,
[2023-11-12 22:06] LABS: Absolute Lymphocyte Count 3.67 X10^3/uL (0.83-4.51); Absolute Neutrophil Count 5.1 X10^3/uL (2.0-7.7); Basophil# 0.05 X10^3/uL; Basophil% 0.5 % (0-1); Eosinophil# 0.11 X10^3/uL; Eosinophils% 1.1 % (0-5); Hematocrit 32.2 % (37-47); Hemoglobin 9.7 g/dL (12.0-15.0); Lymphocyte # 3.67 X10^3/ul (0.83-4.51); Mean Corp Hgb Conc 30.1 g/dL (32-36); Mean Corpuscular Volume 92.8 fL (81-99); Mean Platelet Vol. 11.6 fl (6.2-12.0); Monocyte% 7.3 % (0-10); NRBC Flagged by Analyzer 0 % (0-5); Neutrophil # 5.09 X10^3/uL (2.7-7.7); Neutrophil % 52.8 % (47-70); Platelet Count 215 K/mm3 (150-450); RBC Distribution Width SD 49.7 fl (35.1-43.9); Red Blood Count 3.47 M/mm3 (4.2-5.4); White Blood Count 9.7 K/mm3 (4.4-11.0)
[2023-11-12 22:26] LABS: ALB/GLOB Ratio 1.1 RATIO (0.9-2.4); AST(SGOT) 24 U/L (15-37); Alanine Aminotransfer ALT/SGPT 32 U/L (13-56); Albumin, Serum 3.6 g/dL (3.2-5.0); Alkaline Phosphatase 119 U/L (45-117); Anion Gap 6 (5-15); BUN 35 mg/dL (7-18); BUN/Creat Ratio 34.7 RATIO (10-20); Calcium,Total 8.4 mg/dL (8.5-10.1); Chloride 111 mmol/L (98-107); Creatinine, Serum 1.01 mg/dL (0.55-1.02); EST Glomerular Filtration Rate 60 mL/min (>60); Est Glom Filt Rate - Afr Amer 73 mL/min (>60); Estimated Creatinine Clearance 75.89 ml/min; Globulin 3.4 g/dL (2.2-4.2); Glucose 78 mg/dL (74-106); Potassium 4.3 mmol/L (3.5-5.1); Sodium Level 142 mmol/L (136-145); Troponin-I HS (w/2H Reflex) 7 pg/mL (3.0-54.0)
[2023-11-12 22:36] LABS: Mucous, Urine 0 SEEN /hpf (<or=2+)
[2023-11-12 22:46] LABS: Color, Urine Yellow (Yellow); Glucose, Dipstick Normal (Normal); Ketone-Dipstick Negative (Negative); Leukocyte Esterase-Dipstick 500 /ul (Negative); Nitrite-Dipstick Positive (Negative); Occult Blood-Urine 10 /ul (Negative); Protein-Dipstick Negative (Negative); Specific Gravity, Urine 1.015 (1.002-1.030); Urine Bilirubin Dipstick Negative (Negative); Urine Clarity Sl. Cloudy (Clear); Urine Urobilinogen Normal (Normal)
[2023-11-12 22:52] LABS: Red Blood Cells-Urine 0 SEEN /hpf (0-5); Squamous Epithelial Cells - UA 5-10 SEEN /hpf (5-10); White Blood Cells 5-10 SEEN /hpf (0-5)
[2023-11-12 22:53] LABS: Bacteria 1+ /hpf (None Seen)
[2023-11-12 23:15] VITALS: BP 111/90; PULSE 49; RESP 15; O2SAT 97
--- NOTE | 2023-11-12 23:26 | HP.PCM.HOS_ITS ---
HPI - General General Date of Admission: 11/12/23 Date of Service: 11/12/23 Chief Complaint: LH, dizziness, fatigue, malaise, recent UTI Dx, low HR at SNF HPI Narrative The patient is a 58 y/o F w/ PMHx: Chronic anemia, Ongoing evaluation for Possible MS, Chronic migraines, Seizure disorder, Obesity, HTN, HLD, Orthostasis on midodrine, Psoriasis, Diabetes mellitus type II w/ neuropathy, Anxiety and Depression, Chronic migraines, Allergic rhinitis, Former tobacco use, recent 10/09/2023 laparoscopic appendectomy secondary to acute appendicitis who now presents to the [facility] ED on 11/12/23 with history of generalized weakness, dizziness and lightheadedness recently initiated on antibiotic therapy for urinary tract infection with chronic known hypertension for which the patient takes midodrine unfortunately for the last week with her UTIs she has not felt well with occasional nausea but no emesis but unfortunately she has also been noted to be bradycardic and is not on any rate or rhythm type agents prompting eventual referral to ED for evaluation. Workup in the ED included T96.6, heart rate 45, BP 108/60, respiratory rate 12, 99% on room air, CBC with WBC 9.7, hemoglobin 9.7, MCV 92.8, platelet 215 without marked shift, CMP with chloride 111, BUN/creatinine 35/1.01, calcium 8.4, hepatic profile unremarkable aside alk phos 119, troponin 7, urinalysis with occult blood 10, positive nitrite, leukocyte Estrace 500 with urine WBCs 5-10 with 1+ urine bacteria, urine culture pending per ED, EKG with junctional rhythm with rate 47, CT of the brain with age- related changes with no evidence of acute intracranial findings, chest x-ray with no acute cardiopulmonary findings. In the ED patient administered IV rocephin 1 gm x 1. [facility] Medical History (Updated 11/12/23 @ 23:[address] Tia Sneed MD) Allergic rhinitis Anxiety Chronic migraine COPD (chronic obstructive pulmonary disease) Depression Diabetes mellitus, type 2 Former tobacco use Generalized weakness GERD (gastroesophageal reflux disease) History of CVA (cerebrovascular accident) HTN (hypertension) Hypercholesterolemia Migraines Multiple falls Obesity Orthostasis Psoriasis Recurrent falls Recurrent syncope Seizure disorder Home Medications albuterol sulfate 90 mcg/actuation aerosol inhaler 2 puff inhalation Q4H PRN Wheezing 09/03/22 [History Last Taken 09/04/23] atorvastatin 80 mg tablet 80 mg PO QHS . 09/03/22 [History Last Taken 10/08/23] qxsyytpspx-ksvwoawyxdwbx-bnwazldr 50 mg-325 mg-40 mg tablet 1 tab PO Q6H PRN Headache 09/03/22 [History Last Taken 09/04/23] diclofenac sodium 75 mg tablet,delayed release 75 mg PO BID PRN pain 09/03/22 [History Last Taken 09/04/23] docusate sodium 100 mg capsule 100 mg PO BID CONSTIPATION 09/03/22 [History Last Taken 09/03/23] ergocalciferol (vitamin D2) 1,250 mcg (50,000 unit) capsule 50,000 unit PO MO Check with primary doctor 09/03/22 [History Last Taken 10/04/23] flash glucose scanning reader ([employer] [place]) 09/03/22 [History Last Taken Unknown] flash glucose sensor ([employer] 2 Sensor kit) 09/03/22 [History Last Taken Unknown] gabapentin 100 mg capsule 100 mg PO BID . 09/03/22 [History Last Taken 10/09/23] gabapentin 800 mg tablet 800 mg PO QHS PAIN 09/03/22 [History Last Taken 10/08/23] glucagon 1 mg injection kit 1 mg IM Check with primary doctor 09/03/22 [History Last Taken Unknown] insulin syr/ndl U100 half shriley 0.5 mL 31 gauge x 5/16 (Droplet Insulin Syringe (half unit)) 09/03/22 [History Last Taken Unknown] omeprazole 40 mg capsule,delayed release 40 mg PO DAILY GERD 09/03/22 [History Last Taken 10/09/23] promethazine 25 mg tablet 25 mg PO Q6H PRN PRN Nausea #12 TABLETS 11/08/22 [Rx Last Taken 09/04/23] dextromethorphan 20 mg-quinidine 10 mg capsule (Nuedexta) 1 cap PO BID DEPRESSION 02/06/23 [History Last Taken 10/09/23] ubrogepant 100 mg tablet (Ubrelvy) 100 mg PO .COMPLEX PRN MIGRAINE 02/06/23 [History Last Taken 09/04/23] duloxetine 60 mg capsule,delayed release 60 mg PO BID . 05/31/23 [History Last Taken 10/09/23] insulin glargine 100 unit/mL (3 mL) subcutaneous pen See Rx Instructions subcut BID DM 05/31/23 [History Last Taken 10/09/23] furosemide 20 mg tablet (Lasix) 20 mg PO DAILY EDEMA 07/29/23 [History Last Taken 10/09/23] semaglutide 0.25 mg or 0.5 mg (2 mg/3 mL) subcutaneous pen injector (Ozempic) 0.25 mg subcut QWEEK . 07/29/23 [History Last Taken 10/06/23] tizanidine 4 mg tablet 4 mg PO Q8H PRN muscle spasticity 07/29/23 [History Last Taken 09/04/23] galcanezumab-gnlm 120 mg/mL subcutaneous pen injector (Emgality Pen) 120 mg sub cut .COMPLEX . 09/04/23 [History Last Taken 10/03/23] insulin lispro 100 unit/mL subcutaneous solution 1 sliding scale dose subcut ACHS DIABETES 09/04/23 [History Last Taken 09/04/23] meclizine 25 mg tablet 25 mg PO DAILY PRN NAUSEA 09/04/23 [History Last Taken 09/04/23] midodrine 10 mg tablet 10 mg PO TID . 09/04/23 [History Last Taken 10/09/23] nystatin 100,000 unit/gram topical powder (Nyamyc) 1 applic topical BID RASH 09/04/23 [History Last Taken 10/09/23] potassium chloride 10 mEq tablet,extended release 10 meq PO DAILY SUPPLEMENT 09/04/23 [History Last Taken 10/09/23] topiramate 200 mg tablet 200 mg PO Q12H , 09/04/23 [History Last Taken 10/09/23] vitamin B complex 1 tab PO BID SUPPLEMENT 09/04/23 [History Last Taken 09/04/23] fluticasone propionate 220 mcg/actuation HFA aerosol inhaler 1 puff inhalation Q12H 09/10/23 [History Last Taken Unknown] hydroxyzine HCl 25 mg tablet 50 mg PO DAILY PRN itching 09/10/23 [History Last Taken Unknown] ipratropium 0.5 mg-albuterol 3 mg (2.5 mg base)/3 mL nebulization soln 3 ml inhalation Q6H PRN shortness of breath or wheezing 09/10/23 [History Last Taken Unknown] melatonin 5 mg capsule 12 mg PO QHS SLEEP 09/10/23 [History Last Taken 10/08/23] lorazepam 0.5 mg tablet 0.5 mg PO QHS PRN Anxiety 10/09/23 [History Last Taken Unknown] carbamazepine 200 mg tablet (Tegretol) 200 mg PO 0900,1700 seizure 10/10/23 [History Last Taken 10/10/23] carbamazepine 200 mg tablet (Tegretol) 300 mg PO QHS seizures 10/10/23 [History Last Taken 10/09/23] cephalexin 500 mg capsule 500 mg PO Q12 #14 CAPSULES 10/20/23 [Rx Last Taken Unknown] Allergy/AdvReac Type Severity Reaction Status Date / Time adhesive tape Allergy Intermediate Rash Verified 10/25/23 08:58 latex Allergy Rash Verified 10/25/23 08:58 levofloxacin [From Levaquin] Allergy Hives Verified 10/25/23 08:58 ondansetron [From Zofran] Allergy Hives Verified 10/25/23 08:58 nalbuphine [From Nubain] AdvReac Other Verified 10/25/23 08:58 Family History Father Cancer Mother Cancer Surgical History Hx of cholecystectomy Hx of tonsillectomy Hx of tubal ligation Social History household members: family housing: correction Smoking Status: Former smoker alcohol intake: never substance use type: does not use ROS ROS Narrative Admission Review of Systems: CONSTITUTIONAL: No weight loss, fever, chills, + weakness or fatigue. HEENT: + Episodes of lightheadedness and dizziness. Eyes: No visual loss, blurred vision, double vision or yellow sclerae. Ears, Nose, Throat: No hearing loss, sneezing, congestion, runny nose or sore throat. SKIN: No rash or itching, lesions, wounds. CARDIOVASCULAR: + Episodes of lightheadedness and dizziness with also low heart rate noted at facility. Chronic edema. No chest pain, chest pressure or chest discomfort, palpitations, orthopnea, syncopal events. RESPIRATORY: No shortness of breath, cough or sputum, wheezing, hemoptysis. GASTROINTESTINAL: No anorexia, nausea, vomiting or diarrhea, abdominal pain, melena, BRBPR. GENITOURINARY: + Recent urinary increased frequency and foul odor. Currently she reports no dysuria or urgency or retention. NEUROLOGICAL: + Underlying demyelinating disease, prior history of CVA with mild chronic left-sided hemiplegia. Recent complaints of dizziness/lightheadedness. Chronic headaches. No syncope, ataxia, numbness or tingling in the extremities, change in bowel or bladder control, seizure. MUSCULOSKELETAL: + muscle, back pain, joint pain or stiffness. HEMATOLOGIC: + Chronic anemia, no marked easy bleeding or bruising reported. LYMPHATICS: No enlarged nodes. No history of splenectomy. PSYCHIATRIC: + History of anxiety and depression. ENDOCRINOLOGIC: No reports of sweating, cold or heat intolerance. No polyuria or polydipsia. ALLERGIES: + History of hives and allergic rhinitis. Vital Signs Vital Signs Vital Signs: 11/12/23 21:27 11/12/23 21:31 Temperature 96.6 F L 96.6 F L Temperature Source Tympanic Tympanic Pulse Rate 46 L 45 L Respiratory Rate 13 12 Blood Pressure 111/54 L 108/60 Blood Pressure Mean 73 76 Pulse Ox 98 99 Oxygen Delivery Method Room Air Room Air Weight Weight: 235 lb 0.204 oz Body Mass Index (BMI) 37.9 Physical Exam Narrative Physical Examination: General: Awake, alert, oriented to self, place and some recent events, patient appears to be at her baseline from previous evaluations, cooperative, seated upright in the ED bed, no acute distress, heart rate on the monitor in the 40 range. Skin: Normal color, normal turgor, no icterus, no cyanosis except occasional staged ecchymoses. HEENT: AT/NC, EOMI, PERRLA, mildly dry MM, no carotid bruits, difficult to assess JVD given thick neck, exophthalmos evident. Lungs: Diminished, distant given habitus, appropriate effort, no evidence of any distress, no rales, ronchi or wheezing. Heart: Bradycardic with regular rhythm; no gallop, rub audible. Abdomen: Soft, morbidly obese, NTTP, distant normal bowel sounds, difficult to discern distention and HSM given habitus. Extremities: No cyanosis, no clubbing, chronic bilateral pedal not markedly pitting edema present. Neurological: Patient awake, alert, oriented as noted, cognitive function suspect intact from prior evaluations; pupils equally reactive to light and accommodation, cranial nerves grossly normal, moving all 4 extremities, strength moderately to severely globally decreased secondary to underlying history and acute infectious presentation as well as bradycardia. Psychiatric: Affect appears flat, fatigued, no acute evidence of depressive or anxiety feelings but does have underlying history. Results Lab / Micro Data 11/12/23 21:44 11/12/23 21:44 Labs: Laboratory Results - last 24 hr 11/12/23 21:44: WBC 9.7, RBC 3.47 L, Hgb 9.7 L, Hct 32.2 L, MCV 92.8, MCH 28.0, MCHC 30.1 L, RDW Std Deviation 49.7 H, RDW Coeff of He 15.0 H, Plt Count 215, MPV 11.6, Immature Gran % (Auto) 0.300, Neut % (Auto) 52.8, Lymph % (Auto) 38.0, [place] % (Auto) 7.3, Eos % (Auto) 1.1, Baso % (Auto) 0.5, Absolute Neuts (auto) 5.1, Absolute Lymphs (auto) 3.67, Nucleated RBC % 0, Sodium 142, Potassium 4.3, Chloride 111 H, Carbon Dioxide 25.0, Anion Gap 6, BUN 35 H, Creatinine 1.01, Estim Creat Clear Calc 75.89, Est GFR (MDRD) Af Amer 73, Est GFR (MDRD) Non-Af 60, BUN/Creatinine Ratio 34.7 H, Glucose 78, Calcium 8.4 L, Total Bilirubin 0.20, AST 24, ALT 32, Alkaline Phosphatase 119 H, Troponin I High Sens 7, Total Protein 7.0, Albumin 3.6, Globulin 3.4, Albumin/Globulin Ratio 1.1 11/12/23 22:30: Urine Color Yellow, Urine Clarity Sl. Cloudy, Urine pH 5.0, Ur Specific [place] 1.015, Urine Protein Negative, Urine Glucose (UA) Normal, Urine Ketones Negative, Urine Occult Blood 10 H, Urine Nitrite Positive H, Urine Bilirubin Negative, Urine Urobilinogen Normal, Ur Leukocyte Esterase 500 H, Urine RBC 0 SEEN, Urine WBC 5-10 SEEN, Ur Squamous Epith Cells 5-10 SEEN, Urine Bacteria 1+, Urine Mucus 0 SEEN Imaging Radiology Impression Brain CT 11/12/23 21:48 IMPRESSION: Age-related changes as above, without evidence of acute intracranial hemorrhage in this noncontrast head CT. Electronically Signed: Murtaza Harris MD at 22:31 EDT , Chest X-Ray 11/12/23 21:58 IMPRESSION: Chest with no acute disease. Electronically Signed: Murtaza Harris MD at 22:41 EDT , Assessment & Plan Assessment/Plan (1) Symptomatic bradycardia: (2) Urinary tract infection: PLAN: Plan The patient is a 58 y/o F w/ PMHx: Chronic anemia, Ongoing evaluation for Possible MS, Chronic migraines, Seizure disorder, Obesity, HTN, HLD, Orthostasis on midodrine, Psoriasis, Diabetes mellitus type II w/ neuropathy, Anxiety and Depression, Chronic migraines, Allergic rhinitis, Former tobacco use, recent 10/09/2023 laparoscopic appendectomy secondary to acute appendicitis who now presents to the [facility] ED on 11/12/23 with history of generalized weakness, dizziness and lightheadedness recently initiated on antibiotic therapy for urinary tract infection with chronic known hypertension for which the patient takes midodrine unfortunately for the last week with her UTIs she has not felt well with occasional nausea but no emesis but unfortunately she has also been noted to be bradycardic and is not on any rate or rhythm type agents prompting eventual referral to ED for evaluation. #1. Recent lightheadedness, dizziness possibly multifactorial secondary to recent Acute Urinary Tract Infection, possibly failed outpatient treatment but concurrently noted bradycardia: Will admit to PCU, UA upon ED evaluation remarkable, pending UCx, orthostatics requested, will continue judicious IV fluids, monitor I/Os, continue IV Rocephin based on review of prior cultures (most recent noted 09/05/23 w/ E. Coli pansensitive) w/ transition as able pending sensitivities and speciation. Will maintain on monitored bed to assure no acute myocardial infarction with serial cardiac enzymes and EKGs. 07/30/23 ECHO w/ EF 65%, mild concentric LVH, structurally normal valves. 07/30/2023 cardiac stress testing within noted normal myocardial perfusion study. Will obtain TSH, FT4, magnesium. Difficult situation as patient may certainly have underlying symptomatic bradycardia during an infectious presentation especially given no potential offending medication. From review of prior [facility] records patient has tended to have bradycardia when she has had a concurrent possible infection of note. If this is ongoing despite treatment of acute urinary tract infection will need evaluation by Cardiology for potential sick sinus syndrome. PT/OT/case management consultation for discharge planning. #2. Possible Underlying MS/demyelinating disease: Unclear, but prior evaluations with prior evaluation with MRI cervical spine w/ 1x 0.6 cm abnormal hyperintensity in the middle third posterior midline medulla oblongata with following repeat MRI with IV contrast obtained with similar findings (partially rim-enhancing T1 hypointensity lesion in the middle third of the posterior midline medulla oblongata) as well as nonenhancing T1 hypointensity lesion in the left periventricular white matter adjacent to the inferior horn of the left lateral ventricle w/ concern for possible MS plaques with transfer at that time to [facility]; however, several evaluations have yielded negative work-up. She has previously been treated with empiric steroids with resolution of symptoms. Follow-up MRI of the thoracic and lumbar spine with and without contrast demonstrated no acute findings. Patient following with [facility] neurologist Dr. Jonathan Noland for ongoing concerns for underlying multiple sclerosis. #3. Seizure disorder: We will continue patient home carbamazepine regimen, following outpatient with neurology secondary to underlying ongoing evaluation of demyelinating disease encouraged follow-up also for underlying seizure disorder with breakthrough seizures., #4. 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 #5. Diabetes mellitus type II with chronic neuropathy: Hold oral home regimen, continue home insulin regimen, ADA diet, accu checks w/ ISS, continue patient home chronic gabapentin regimen. #6. Anxiety and depression: We will continue patient home low-dose Ativan with hold parameters given current presentation with infection, continue patient home duloxetine regimen. #7. Chronic migraines: We will continue patient home chronic topiramate regimen. #8. Chronic orthostasis: We will continue patient home chronic midodrine regimen. #9. Hypertension: As noted temporally holding Lasix given orthostatics pending with recent lightheadedness and dizziness. #10. Hyperlipidemia: Continue home statin regimen. #11. Allergic rhinitis: We will continue patient home fluticasone regimen. #12. GERD: We will continue patient on PPI. #13. Obesity: Weight loss and lifestyle changes encouraged. #14. Former tobacco use: Encourage continued tobacco cessation. #15. Seizure disorder: We will continue patient home Topamax and Tegretol home regimen. #16. Chronic normocytic anemia: Admission hemoglobin 9.7, MCV 92.8, baseline hemoglobin primarily 9-10, stable, continue to trend. #17. DVT prophylaxis: Lovenox. #18. CODE status: Full Code per facility paperwork. Charges/Coding Visit Charges Inpatient E&M: 61919 Init Hosp L3
[2023-11-12 23:43] VITALS: BP 92/60; PULSE 44; RESP 10; TEMP 36.8; O2SAT 97
[2023-11-12] MEDS: Ceftriaxone 1 GM/50 ML BAG IV (23:48)
[2023-11-12 23:57] LABS: Magnesium 2.4 mg/dL (1.6-2.6)
[2023-11-13] VITALS (7 sets, daily range): BP systolic 107–137; BP diastolic 51–76; PULSE 60–69; RESP 16–18; TEMP 36.1–36.7; O2SAT 97–100; BMI 36.4
[2023-11-13 00:03] LABS: Reflex Troponin-HS? (from REC) Y
[2023-11-13] MEDS: proCHLORPERazine 10 MG/2 ML Vial 5 MG IV (01:49)
[2023-11-13 01:51] LABS: Troponin-I HS 7 pg/mL (3.0-54.0)
[2023-11-13] MEDS: 0.9% Normal Saline (1000mL) 1,000 ML 100 ML IV (01:55)
[2023-11-13 02:21] LABS: Bedside Glucose 58 mg/dL (74-106)
[2023-11-13 03:01] LABS: Bedside Glucose 108 mg/dL (74-106)
[2023-11-13 04:25] LABS: Absolute Lymphocyte Count 2.49 X10^3/uL (0.83-4.51); Absolute Neutrophil Count 4.7 X10^3/uL (2.0-7.7); Basophil# 0.03 X10^3/uL; Basophil% 0.4 % (0-1); Eosinophil# 0.11 X10^3/uL; Eosinophils% 1.4 % (0-5); Hematocrit 30.4 % (37-47); Hemoglobin 9.3 g/dL (12.0-15.0); Lymphocyte # 2.49 X10^3/ul (0.83-4.51); Lymphocyte % 30.8 % (19-41); Mean Corp Hgb Conc 30.6 g/dL (32-36); Mean Corpuscular Hgb 28.4 pg (27.0-32.0); Mean Platelet Vol. 11.2 fl (6.2-12.0); Monocyte# 0.74 X10^3/uL; Monocyte% 9.1 % (0-10); NRBC Flagged by Analyzer 0 % (0-5); Neutrophil # 4.69 X10^3/uL (2.7-7.7); Neutrophil % 57.9 % (47-70); Platelet Count 172 K/mm3 (150-450); RBC Distribution Width CV 14.8 % (11.6-14.6); RBC Distribution Width SD 50.4 fl (35.1-43.9); Red Blood Count 3.27 M/mm3 (4.2-5.4); White Blood Count 8.1 K/mm3 (4.4-11.0)
[2023-11-13 04:47] LABS: Troponin-I HS 7 pg/mL (3.0-54.0)
[2023-11-13 05:01] LABS: AST(SGOT) 18 U/L (15-37); Alanine Aminotransfer ALT/SGPT 27 U/L (13-56); Albumin, Serum 3.2 g/dL (3.2-5.0); Alkaline Phosphatase 106 U/L (45-117); Anion Gap 7 (5-15); BUN 32 mg/dL (7-18); BUN/Creat Ratio 37.3 RATIO (10-20); Calcium,Total 8.2 mg/dL (8.5-10.1); Chloride 115 mmol/L (98-107); Creatinine, Serum 0.86 mg/dL (0.55-1.02); EST Glomerular Filtration Rate 72 mL/min (>60); Est Glom Filt Rate - Afr Amer 88 mL/min (>60); Estimated Creatinine Clearance 87.21 ml/min; Globulin 3.2 g/dL (2.2-4.2); Glucose 94 mg/dL (74-106); Potassium 3.6 mmol/L (3.5-5.1); Protein, Total 6.4 g/dL (6.4-8.2); Sodium Level 142 mmol/L (136-145); T4 Free Direct 0.67 ng/dL (0.76-1.46); Thyroid Stim Hormone (TSH) 3.18 uIU/mL (0.358-3.74)
[2023-11-13] MEDS: Midodrine HCl 5 MG Tablet 10 MG PO ×2 (06:46→15:05)
--- NOTE | 2023-11-13 06:50 | CPS ---
Pt declined Pulmicort, doesn't take any inhalers @home.
[2023-11-13 07:14] LABS: Bedside Glucose 92 mg/dL (74-106)
--- NOTE | 2023-11-13 08:18 | CASEMGMT ---
JAYA noted patient is from [facility]. JAYA met with patient. Introduced self and role at [facility]. Patient stated her plan is to return to [facility] at d/c. Patient stated she will not be going back to her sisters. She will eventually go into assisted living. JAYA sent updates to [facility] and inquired if patient will need insurance authorization to return. Plan: Return to [facility] Joselin ALICIA
[2023-11-13] MEDS: Gabapentin 100 MG Capsule PO ×2 (09:54→12:12)
[2023-11-13] MEDS: Acetaminophen/Butalbital/Caffe 1 Tablet PO ×2 (09:54→15:05)
[2023-11-13] MEDS: carBAMazepine 200 MG Tablet PO ×2 (09:55→16:11)
[2023-11-13] MEDS: Nystatin Powder 15gm Bottle 1 APPLIC TOPICAL ×2 (09:56→21:35)
[2023-11-13] MEDS: Pantoprazole Sodium 40 MG Tablet PO (09:56)
[2023-11-13] MEDS: Topiramate 200 MG Tablet PO ×2 (09:56→21:38)
[2023-11-13] MEDS: DULoxetine Hcl 60 MG Capsule PO ×2 (09:57→21:25)
[2023-11-13] MEDS: Docusate Sodium 100 MG Capsule PO ×2 (09:57→21:25)
[2023-11-13] MEDS: Potassium Chloride Oral Tablet 10 MEQ PO (09:57)
[2023-11-13] MEDS: Enoxaparin 40 MG/0.4 ML Syringe SC ×2 (09:57→21:34)
[2023-11-13] MEDS: Insulin Glargine-YFGN 100 UNIT/ML Pen 22 UNIT SC (10:06)
--- NOTE | 2023-11-13 11:22 | CASEMGMT ---
Patient does not need a pre-cert to return to [facility]. Plan: d/c back to [facility] under intermediate level of care. Joselin Wilkerson MSW [employer]
[2023-11-13 12:32] LABS: Bedside Glucose 88 mg/dL (74-106)
--- NOTE | 2023-11-13 14:11 | PN_ITS ---
Subjective Subjective Patient seen and examined. She felt well and had no complaints. She denied any dizziness or fatigue, malaise, nausea or vomiting or any other symptoms. Review of systems otherwise negative. Objective Data Objective Data Vital Signs: Vital Signs Temp Pulse Resp BP Pulse Ox O2 Del Method 98.0 F 60 18 107/51 L 100 Room Air 11/13/23 09:50 11/13/23 09:50 11/13/23 09:50 11/13/23 09:50 11/13/23 09:50 11/13/23 09:50 Oxygen Delivery Method Room Air Weight: 225 lb 12.054 oz Body Mass Index (BMI) 36.4 Intake & Output: Intake and Output for Last 24 Hours 11/11/23 11/12/23 11/13/23 23:59 23:59 23:59 Intake Total 1290 / 1290 Balance 1290 / 1290 Lab / Micro Data 11/13/23 04:15 11/13/23 04:15 Labs: Laboratory Results - last 24 hr 11/12/23 21:44: WBC 9.7, RBC 3.47 L, Hgb 9.7 L, Hct 32.2 L, MCV 92.8, MCH 28.0, MCHC 30.1 L, RDW Std Deviation 49.7 H, RDW Coeff of He 15.0 H, Plt Count 215, MPV 11.6, Immature Gran % (Auto) 0.300, Neut % (Auto) 52.8, Lymph % (Auto) 38.0, [place] % (Auto) 7.3, Eos % (Auto) 1.1, Baso % (Auto) 0.5, Absolute Neuts (auto) 5.1, Absolute Lymphs (auto) 3.67, Nucleated RBC % 0, Sodium 142, Potassium 4.3, Chloride 111 H, Carbon Dioxide 25.0, Anion Gap 6, BUN 35 H, Creatinine 1.01, Estim Creat Clear Calc 75.89, Est GFR (MDRD) Af Amer 73, Est GFR (MDRD) Non-Af 60, BUN/Creatinine Ratio 34.7 H, Glucose 78, Calcium 8.4 L, Total Bilirubin 0.20, AST 24, ALT 32, Alkaline Phosphatase 119 H, Troponin I High Sens 7, Total Protein 7.0, Albumin 3.6, Globulin 3.4, Albumin/Globulin Ratio 1.1 11/12/23 22:02: Magnesium 2.4 11/12/23 22:30: Urine Color Yellow, Urine Clarity Sl. Cloudy, Urine pH 5.0, Ur Specific [place] 1.015, Urine Protein Negative, Urine Glucose (UA) Normal, Urine Ketones Negative, Urine Occult Blood 10 H, Urine Nitrite Positive H, Urine Bilirubin Negative, Urine Urobilinogen Normal, Ur Leukocyte Esterase 500 H, Urine RBC 0 SEEN, Urine WBC 5-10 SEEN, Ur Squamous Epith Cells 5-10 SEEN, Urine Bacteria 1+, Urine Mucus 0 SEEN 11/13/23 01:25: Troponin I High Sens 7 11/13/23 01:46: POC Glucose 58 L 11/13/23 02:40: POC Glucose 108 H 11/13/23 04:15: WBC 8.1, RBC 3.27 L, Hgb 9.3 L, Hct 30.4 L, MCV 93.0, MCH 28.4, MCHC 30.6 L, RDW Std Deviation 50.4 H, RDW Coeff of He 14.8 H, Plt Count 172, MPV 11.2, Immature Gran % (Auto) 0.400, Neut % (Auto) 57.9, Lymph % (Auto) 30.8, [place] % (Auto) 9.1, Eos % (Auto) 1.4, Baso % (Auto) 0.4, Absolute Neuts (auto) 4.7, Absolute Lymphs (auto) 2.49, Nucleated RBC % 0, Sodium 142, Potassium 3.6, Chloride 115 H, Carbon Dioxide 20.0 L, Anion Gap 7, BUN 32 H, Creatinine 0.86, Estim Creat Clear Calc 87.21, Est GFR (MDRD) Af Amer 88, Est GFR (MDRD) Non-Af 72, BUN/Creatinine Ratio 37.3 H, Glucose 94, Calcium 8.2 L, Total Bilirubin 0.20, AST 18, ALT 27, Alkaline Phosphatase 106, Troponin I High Sens 7, Total Protein 6.4, Albumin 3.2, Globulin 3.2, Albumin/Globulin Ratio 1.0, TSH 3.18, Free T4 0.67 L 11/13/23 06:34: POC Glucose 92 11/13/23 12:11: POC Glucose 88 Radiography Diagnostic Testing: Radiology Impression Brain CT 11/12/23 21:48 IMPRESSION: Age-related changes as above, without evidence of acute intracranial hemorrhage in this noncontrast head CT. Electronically Signed: Murtaza Harris MD at 22:31 EDT , Chest X-Ray 11/12/23 21:58 IMPRESSION: Chest with no acute disease. Electronically Signed: Murtaza Harris MD at 22:41 EDT , Physical Exam Const alert, oriented x3 and no apparent distress Constitutional Narrative: obese General Appearance: cooperative HEENT normocephalic, head/scalp atraumatic, moist oral mucous membranes and oropharynx normal Eyes PERRL and EOMs intact bilaterally Neck no lymphadenopathy and supple Lymph Lymphatic: no lymphadenopathy noted and no lymphedema noted Resp normal respiratory effort, normal air movement and clear to auscultation bilaterally Cardio regular rate, regular rhythm, S1 normal heart sound, S2 normal heart sound and no murmurs GI normal to inspection, nondistended, normoactive bowel sounds, soft to palpation, non-tender and non-distended Extremity normal capillary refill, no clubbing, cyanosis or edema and no calf tenderness General Extremity: no tenderness to palpation of joints or extremities Skin General Skin Exam: no breakdown and turgor normal Neuro CN's II-XII intact bilaterally, no focal motor deficits, no sensory deficits noted and deep tendon reflexes 2+ bilaterally Motor Exam: strength 5/5 throughout and general weakness Psych thought process normal and cooperative Appearance: appropriate Assessment & Plan Assessment/Plan (1) Generalized weakness: (2) Lightheadedness: (3) Symptomatic bradycardia: PLAN: Plan #Symptomatic bradycardia * Patient admitted with a complaint of dizziness and lightheadedness and was found to have bradycardia. Was also recently treated for UTI. * Bradycardia has resolved. * TSH and magnesium within normal limits. EKG showed no acute ST changes. * PT/OT on board * #Probable UTI: * Was recently treated for UTI. Urinalysis on admission showed 1+ bacteria. * there was concern about possible failed outpatient treatment. * On IV ceftriaxone. * Urine cultures ordered. #Debility and weakness: * To hold on multiple days ago that she had brain lesions but they are not MS. On carbamazepine. * MRI of the brain in July 2023 which showed focal areas of white matter signal hyperintensity and findings consistent with a demyelinating process/multiple sclerosis with an area of acute demyelination in the right frontal lobe. * PT OT on board. For precautions. #History of seizures: On carbamazepine #Hyperlipidemia: On statin #Type 2 diabetes mellitus: On Lantus 16 units twice daily. Insulin sliding scale. Tactics ACHS. #History of hypotension: On midodrine #History of migraines: On Nuedexta and Fioricet #DVT prophylaxis:lovenox Charges/Coding Visit Charges Inpatient E&M: 58669 Subs Hosp L2
[2023-11-13 16:31] LABS: Bedside Glucose 139 mg/dL (74-106)
[2023-11-13] MEDS: Insulin Lispro 100 UNIT/ML INSULN.PEN SC (21:25)
[2023-11-13] MEDS: Insulin Glargine-YFGN 100 UNIT/ML Pen 15 UNIT SC (21:31)
[2023-11-13] MEDS: Atorvastatin Calcium 80 MG Tablet PO (21:34)
[2023-11-13] MEDS: MELATONIN 10 MG TABLET PO (21:35)
[2023-11-13] MEDS: Gabapentin 800 MG Tablet PO (21:37)
[2023-11-13] MEDS: carBAMazepine 200 MG Tablet 300 MG PO (21:37)
[2023-11-13] MEDS: tiZANidine HCl 2 MG Tablet 4 MG PO (21:38)
[2023-11-13 23:18] LABS: Bedside Glucose 162 mg/dL (74-106)
[2023-11-13] MEDS: Ceftriaxone 1 GM/50 ML BAG IV (23:33)
[2023-11-14] VITALS (7 sets, daily range): BP systolic 112–155; BP diastolic 57–80; PULSE 62–76; RESP 16–18; TEMP 36.1–36.7; O2SAT 94–99; BMI 36.3
[2023-11-14 06:43] LABS: Absolute Lymphocyte Count 2.25 X10^3/uL (0.83-4.51); Absolute Neutrophil Count 3.5 X10^3/uL (2.0-7.7); Basophil# 0.04 X10^3/uL; Basophil% 0.6 % (0-1); Eosinophil# 0.09 X10^3/uL; Eosinophils% 1.4 % (0-5); Hematocrit 31.8 % (37-47); Hemoglobin 9.6 g/dL (12.0-15.0); Lymphocyte # 2.25 X10^3/ul (0.83-4.51); Lymphocyte % 35.2 % (19-41); Mean Corp Hgb Conc 30.2 g/dL (32-36); Mean Corpuscular Hgb 27.5 pg (27.0-32.0); Mean Corpuscular Volume 91.1 fL (81-99); Mean Platelet Vol. 11.7 fl (6.2-12.0); Monocyte# 0.47 X10^3/uL; Monocyte% 7.3 % (0-10); NRBC Flagged by Analyzer 0 % (0-5); Neutrophil # 3.52 X10^3/uL (2.7-7.7); Platelet Count 201 K/mm3 (150-450); RBC Distribution Width CV 14.7 % (11.6-14.6); RBC Distribution Width SD 48.2 fl (35.1-43.9); Red Blood Count 3.49 M/mm3 (4.2-5.4); White Blood Count 6.4 K/mm3 (4.4-11.0)
[2023-11-14 07:05] LABS: Bedside Glucose 106 mg/dL (74-106)
[2023-11-14 07:12] LABS: Anion Gap 5 (5-15); BUN 22 mg/dL (7-18); BUN/Creat Ratio 29.3 RATIO (10-20); Calcium,Total 8.7 mg/dL (8.5-10.1); Chloride 116 mmol/L (98-107); Creatinine, Serum 0.75 mg/dL (0.55-1.02); EST Glomerular Filtration Rate 84 mL/min (>60); Est Glom Filt Rate - Afr Amer 102 mL/min (>60); Estimated Creatinine Clearance 99.95 ml/min; Glucose 101 mg/dL (74-106); Sodium Level 140 mmol/L (136-145)
[2023-11-14] MEDS: Enoxaparin 40 MG/0.4 ML Syringe SC ×2 (10:26→22:03)
[2023-11-14] MEDS: DULoxetine Hcl 60 MG Capsule PO ×2 (10:27→22:02)
[2023-11-14] MEDS: Potassium Chloride Oral Tablet 10 MEQ PO (10:27)
[2023-11-14] MEDS: Topiramate 200 MG Tablet PO ×2 (10:27→22:02)
[2023-11-14] MEDS: Docusate Sodium 100 MG Capsule PO ×2 (10:27→22:02)
[2023-11-14] MEDS: Pantoprazole Sodium 40 MG Tablet PO (10:27)
[2023-11-14] MEDS: Nystatin Powder 15gm Bottle 1 APPLIC TOPICAL ×2 (10:28→22:02)
[2023-11-14] MEDS: carBAMazepine 200 MG Tablet PO ×2 (10:28→18:15)
[2023-11-14] MEDS: Gabapentin 100 MG Capsule PO ×2 (10:36→14:11)
[2023-11-14] MEDS: Acetaminophen/Butalbital/Caffe 1 Tablet PO ×3 (10:36→20:06)
[2023-11-14] MEDS: Acetaminophen 325 MG Tablet 650 MG PO ×3 (10:36→20:06)
[2023-11-14] MEDS: Insulin Lispro 100 UNIT/ML INSULN.PEN SC ×3 (10:44→22:04)
[2023-11-14] MEDS: Insulin Glargine-YFGN 100 UNIT/ML Pen 22 UNIT SC (10:45)
--- NOTE | 2023-11-14 12:10 | PN_ITS ---
Subjective Subjective Patient seen and examined. She had no active complaints. Review of systesms is otherwise negative. Objective Data Objective Data Vital Signs: Vital Signs Temp Pulse Resp BP Pulse Ox O2 Del Method 97.9 F 71 16 112/60 98 Room Air 11/14/23 10:23 11/14/23 10:23 11/14/23 10:23 11/14/23 10:23 11/14/23 10:23 11/14/23 10:23 Oxygen Delivery Method Room Air Weight: 225 lb 8.526 oz Body Mass Index (BMI) 36.3 Intake & Output: Intake and Output for Last 24 Hours 11/12/23 11/13/23 11/14/23 23:59 23:59 23:59 Intake Total 1650 / 1650 50 / 50 Balance 1650 / 1650 50 / 50 Lab / Micro Data 11/14/23 06:09 11/14/23 06:09 Labs: Laboratory Results - last 24 hr 11/13/23 12:11: POC Glucose 88 11/13/23 16:08: POC Glucose 139 H 11/13/23 21:06: POC Glucose 162 H 11/14/23 06:09: WBC 6.4, RBC 3.49 L, Hgb 9.6 L, Hct 31.8 L, MCV 91.1, MCH 27.5, MCHC 30.2 L, RDW Std Deviation 48.2 H, RDW Coeff of He 14.7 H, Plt Count 201, MPV 11.7, Immature Gran % (Auto) 0.500, Neut % (Auto) 55.0, Lymph % (Auto) 35.2, Russell % (Auto) 7.3, Eos % (Auto) 1.4, Baso % (Auto) 0.6, Absolute Neuts (auto) 3.5, Absolute Lymphs (auto) 2.25, Nucleated RBC % 0, Sodium 140, Potassium 4.0, Chloride 116 H, Carbon Dioxide 19.0 L, Anion Gap 5, BUN 22 H, Creatinine 0.75, Estim Creat Clear Calc 99.95, Est GFR (MDRD) Af Amer 102, Est GFR (MDRD) Non-Af 84, BUN/Creatinine Ratio 29.3 H, Glucose 101, Calcium 8.7 11/14/23 06:30: POC Glucose 106 Micro: Microbiology 11/12/23 22:30 Urine, Clean Catch Urine Culture - Preliminary Presumptive E. coli Physical Exam Const alert, oriented x3 and no apparent distress Constitutional Narrative: obese General Appearance: cooperative HEENT normocephalic, head/scalp atraumatic, moist oral mucous membranes and oropharynx normal Eyes PERRL and EOMs intact bilaterally Neck no lymphadenopathy and supple Lymph Lymphatic: no lymphadenopathy noted and no lymphedema noted Resp normal respiratory effort, normal air movement and clear to auscultation bilaterally Cardio regular rate, regular rhythm, S1 normal heart sound, S2 normal heart sound and no murmurs GI normal to inspection, nondistended, normoactive bowel sounds, soft to palpation, non-tender and non-distended Extremity normal capillary refill, no clubbing, cyanosis or edema and no calf tenderness General Extremity: no tenderness to palpation of joints or extremities Skin General Skin Exam: no breakdown and turgor normal Neuro CN's II-XII intact bilaterally, no focal motor deficits, no sensory deficits noted and deep tendon reflexes 2+ bilaterally Motor Exam: strength 5/5 throughout and general weakness Psych thought process normal and cooperative Appearance: appropriate Assessment & Plan Assessment/Plan (1) Generalized weakness: (2) Lightheadedness: (3) Symptomatic bradycardia: PLAN: Plan #Symptomatic bradycardia * Patient admitted with a complaint of dizziness and lightheadedness and was found to have bradycardia. Was also recently treated for UTI. * Bradycardia has resolved. * TSH and magnesium within normal limits. EKG showed no acute ST changes. * PT/OT on board * #UTI: * Was recently treated for UTI. Urinalysis on admission showed 1+ bacteria. * there was concern about possible failed outpatient treatment. * On IV ceftriaxone. * Urine cultures growing E coli; speciation is pending. #Debility and weakness: * To hold on multiple days ago that she had brain lesions but they are not MS. On carbamazepine. * MRI of the brain in July 2023 which showed focal areas of white matter signal hyperintensity and findings consistent with a demyelinating process/multiple sclerosis with an area of acute demyelination in the right frontal lobe. * PT OT on board. For precautions. #History of seizures: On carbamazepine #Hyperlipidemia: On statin #Type 2 diabetes mellitus: On Lantus 16 units twice daily. Insulin sliding scale. Tactics ACHS. #History of hypotension: On midodrine #History of migraines: On Nuedexta and Fioricet #DVT prophylaxis:lovenox Disposition: anticipate dc to SNF tomorrow once speciation of E coli culture has resulted. Charges/Coding Visit Charges Inpatient E&M: 38803 Subs Hosp L2
[2023-11-14 12:27] LABS: Bedside Glucose 164 mg/dL (74-106)
[2023-11-14] MEDS: tiZANidine HCl 2 MG Tablet 4 MG PO ×2 (14:11→22:05)
[2023-11-14 17:48] LABS: Bedside Glucose 160 mg/dL (74-106)
[2023-11-14] MEDS: MELATONIN 10 MG TABLET PO (22:02)
[2023-11-14] MEDS: Atorvastatin Calcium 80 MG Tablet PO (22:02)
[2023-11-14] MEDS: Gabapentin 800 MG Tablet PO (22:02)
[2023-11-14] MEDS: carBAMazepine 200 MG Tablet 300 MG PO (22:03)
[2023-11-14] MEDS: Insulin Glargine-YFGN 100 UNIT/ML Pen 15 UNIT SC (22:04)
[2023-11-14] MEDS: 0.9% Saline Lock 10 ML Syringe IV (22:16)
[2023-11-14] MEDS: Ceftriaxone 1 GM/50 ML BAG IV (22:17)
[2023-11-15] MEDS: 0.9% Saline Lock 10 ML Syringe IV (00:10)
[2023-11-15 00:37] LABS: Bedside Glucose 169 mg/dL (74-106)
[2023-11-15] MEDS: Acetaminophen/Butalbital/Caffe 1 Tablet PO ×2 (02:07→08:57)
[2023-11-15] MEDS: Acetaminophen 325 MG Tablet 650 MG PO ×2 (02:07→08:55)
[2023-11-15 03:22] VITALS: BMI 36.3
[2023-11-15 03:39] VITALS: BP 145/71; PULSE 66; RESP 16; TEMP 36.2; O2SAT 96
[2023-11-15 06:27] VITALS: BP 132/71; PULSE 60
[2023-11-15 06:29] LABS: Absolute Lymphocyte Count 2.71 X10^3/uL (0.83-4.51); Absolute Neutrophil Count 3.6 X10^3/uL (2.0-7.7); Basophil# 0.05 X10^3/uL; Basophil% 0.7 % (0-1); Eosinophil# 0.12 X10^3/uL; Eosinophils% 1.7 % (0-5); Hematocrit 33.2 % (37-47); Hemoglobin 10.2 g/dL (12.0-15.0); Lymphocyte # 2.71 X10^3/ul (0.83-4.51); Lymphocyte % 37.8 % (19-41); Mean Corp Hgb Conc 30.7 g/dL (32-36); Mean Corpuscular Hgb 27.8 pg (27.0-32.0); Mean Corpuscular Volume 90.5 fL (81-99); Monocyte# 0.64 X10^3/uL; Monocyte% 8.9 % (0-10); NRBC Flagged by Analyzer 0 % (0-5); Neutrophil # 3.62 X10^3/uL (2.7-7.7); Neutrophil % 50.5 % (47-70); Platelet Count 231 K/mm3 (150-450); RBC Distribution Width CV 14.7 % (11.6-14.6); RBC Distribution Width SD 48.1 fl (35.1-43.9); Red Blood Count 3.67 M/mm3 (4.2-5.4); White Blood Count 7.2 K/mm3 (4.4-11.0)
[2023-11-15 06:46] LABS: Anion Gap 8 (5-15); BUN 21 mg/dL (7-18); BUN/Creat Ratio 29.3 RATIO (10-20); Calcium,Total 8.7 mg/dL (8.5-10.1); Chloride 112 mmol/L (98-107); Creatinine, Serum 0.72 mg/dL (0.55-1.02); EST Glomerular Filtration Rate 89 mL/min (>60); Est Glom Filt Rate - Afr Amer 108 mL/min (>60); Estimated Creatinine Clearance 104.11 ml/min; Glucose 138 mg/dL (74-106); Potassium 3.9 mmol/L (3.5-5.1); Sodium Level 139 mmol/L (136-145)
[2023-11-15 07:19] LABS: Bedside Glucose 116 mg/dL (74-106)
[2023-11-15] MEDS: Gabapentin 100 MG Capsule PO ×2 (08:57→11:49)
[2023-11-15] MEDS: carBAMazepine 200 MG Tablet PO (08:58)
[2023-11-15 09:40] VITALS: BP 140/89; PULSE 62; RESP 16; TEMP 36.4; O2SAT 97
[2023-11-15] MEDS: Enoxaparin 40 MG/0.4 ML Syringe SC (10:27)
[2023-11-15] MEDS: Insulin Glargine-YFGN 100 UNIT/ML Pen 22 UNIT SC (10:28)
[2023-11-15] MEDS: DULoxetine Hcl 60 MG Capsule PO (10:29)
[2023-11-15] MEDS: Pantoprazole Sodium 40 MG Tablet PO (10:29)
[2023-11-15] MEDS: Potassium Chloride Oral Tablet 10 MEQ PO (10:29)
[2023-11-15] MEDS: Docusate Sodium 100 MG Capsule PO (10:29)
[2023-11-15] MEDS: Topiramate 200 MG Tablet PO (10:30)
[2023-11-15] MEDS: Nystatin Powder 15gm Bottle 1 APPLIC TOPICAL (10:30)
[2023-11-15] MEDS: Insulin Lispro 100 UNIT/ML INSULN.PEN SC (11:44)
[2023-11-15 12:03] LABS: Bedside Glucose 216 mg/dL (74-106)
--- NOTE | 2023-11-15 13:28 | PCM.TXEXTCAR ---
Diet Diet Order/Speech Therapy: 11/13/23 00:43 Diet: Cardiac: Calorie-Controlled Food consistency:: Regular Liquid Consistency:: Regular/Thin How many daily calories?: 1800 calorie Routine Orders/Code Status Suppository Frequency: Daily PRN O2 Frequency: PRN Keep PO Greater than or Equal to (%): 89 Routine Lab Work: CBC (1 week) and BMP (1 week) Code Status: Full Code Wound(s) LLQ: Wound Type: Surgical Incision Suggestions for Active Care Change Position every (hours): 2 Therapies Weight Bearing: Full weight bearing Problem/Diagnosis (1) Generalized weakness: Status: Acute Code(s): R53.1 - Weakness (2) Lightheadedness: Status: Acute Code(s): R42 - Dizziness and giddiness (3) Symptomatic bradycardia: Status: Acute Code(s): R00.1 - Bradycardia, unspecified Allergies/Procedures Done in Hospital Allergies adhesive tape Allergy (Intermediate, Verified 10/25/23 08:58) Rash latex Allergy (Verified 10/25/23 08:58) Rash levofloxacin [From Levaquin] Allergy (Verified 10/25/23 08:58) Hives ondansetron [From Zofran] Allergy (Verified 10/25/23 08:58) Hives nalbuphine [From Nubain] Adverse Reaction (Verified 10/25/23 08:58) Other Procedures: EKG and - (Chest x-ray/CT brain) Type of Care/Length of Stay Estimated LOS: More Than 30 Days Type of Care Needed: Intermediate Rehab Potential: Fair Prognosis: Fair Additional Orders/Day of Discharge Day of Discharge: 11/15/23 Dietary and Speech Recommendations Dietitian Recommendations/Changes: Continue 1800 kerline Cardiac diet Follow Up Care Please follow up with your Primary Care Physician in: 2 weeks Please Follow Up With: Regine Rodriguez MD When: 2 to 4 weeks Discharge Plan Admission Admit Date/Time: 11/12/23 23:28 Attending Provider: Capri Barnes Primary Care Provider: Vi Eng Consulting Providers: Tia Sneed; Sugar Lomax Discharge Orders/Prescriptions Prescriptions: No Action atorvastatin 80 mg tablet 80 mg PO QHS Patient Comments: TAKE ONE TABLET BY MOUTH DAILY AT 9PM AT BEDTIME [id number] 50-325-40 mg Tablet 1 tab PO Q6H PRN (Reason: Headache) glucagon 1 mg Kit 1 mg IM PRN PRN (Reason: hypoglycemia) Hold Instructions: Pt is ill omeprazole 40 mg capsule,delayed release(DR/EC) 40 mg PO DAILY Patient Comments: TAKE ONE CAPSULE BY MOUTH DAILY AT 9AM gabapentin 800 mg tablet 800 mg PO QHS Patient Comments: TAKE ONE TABLET BY MOUTH DAILY AT 9PM AT BEDTIME docusate sodium 100 mg Capsule 100 mg PO BID diclofenac sodium 75 mg tablet,delayed release (DR/EC) 75 mg PO BID PRN (Reason: pain) Patient Comments: TAKE ONE TABLET BY MOUTH TWICE DAILY NEEDED (VIAL) gabapentin 100 mg Capsule 100 mg PO BID Rx Instructions: MORNING AND NOON albuterol sulfate 90 mcg/actuation HFA aerosol inhaler 2 puff INHALATION Q4H PRN (Reason: Wheezing) Patient Comments: INHALE TWO PUFFS BY MOUTH DIRECTED EVERY 6 HOURS NEEDED FOR WHEEZING OR FOR SHORTNESS OF BREATH (BULK) (DME) FreeStyle Es 2 Sensor Kit MISCELLANEOUS Patient Comments: apply 1 SENSOR to back OF UPPER ARM REMOVE AND REPLACE every 14 d... (REFER TO PRESCRIPTION NOTES). (DME) FreeStyle Es 2 [place] Misc MISCELLANEOUS Patient Comments: USE CONTINUOUSLY TO MONITOR BLOOD SUGARS DAILY (DME) Droplet Insulin Syr(half unit) 0.5 mL 31 gauge x 5/16 syringe MISCELLANEOUS Patient Comments: USE TO INJECT INSULIN UNDER THE SKIN EVERY MEAL AND AT BEDTIME PER SLIDING SCALE ergocalciferol (vitamin D2) 1,250 mcg (50,000 unit) capsule 50,000 unit PO MO Patient Comments: TAKE 1 CAPSULE BY MOUTH EVERY WEDNESDAY AT 9AM Rx Instructions: takes on mondays promethazine 25 mg tablet 25 mg PO Q6H PRN PRN (Reason: Nausea) Qty: 12 0RF insulin glargine 100 unit/mL (3 mL) insulin pen See Rx Instructions SUBCUT .COMPLEX Rx Instructions: subcutaneously 36 units qam, 24 units qhs; duloxetine 60 mg capsule,delayed release(DR/EC) 60 mg PO BID Patient Comments: TAKE ONE CAPSULE BY MOUTH TWICE DAILY Nuedexta 20-10 mg capsule 1 cap PO BID Ubrelvy 100 mg tablet 100 mg PO .COMPLEX PRN (Reason: MIGRAINE) Rx Instructions: TAKE 1 TABLET BY MOUTH AT ONSET OF MIGRAINE. IF NO IMPROVEMENT WITHIN 2 HRS TAKE 1 TABLET. DO NOT EXCEED 2 TABS IN 24 HOURS furosemide [Lasix] 20 mg tablet 20 mg PO DAILY Ozempic 0.25 mg or 0.5 mg (2 mg/3 mL) pen injector 0.25 mg SUBCUT QWEEK Patient Comments: INJECT 0.25 MG SUBCUTANEOUSLY ONCE A WEEK Rx Instructions: WEDNESDAY tizanidine 4 mg tablet 4 mg PO Q8H PRN (Reason: muscle spasticity) Patient Comments: TAKE ONE TABLET BY MOUTH EVERY 8 HOURS NEEDED (VIAL) Emgality Pen 120 mg/mL pen injector 120 mg SUBCUT .COMPLEX Patient Comments: INJECT 1 ML (120MG TOTAL) UNDER THE SKIN EVERY 28 DAYS (BULK) on the Rx Instructions: 120 mg subcutaneously Q28D; insulin lispro 100 unit/mL solution 3 unit subcut .COMPLEX Rx Instructions: 3 units subcutaneously achs; INJECT PER SLIDING SCALE THREE TIMES DAILY FOLLOWS ONE UNIT IF BG LESS THAN 110, TWO UNITS FOR BG 111-150, FOUR UNITS FOR BG 151-200, SEVEN UNITS FOR BG 201-250, 10 UNITS FOR BG 251-300, 13 UNITS FOR BG 301-350, 16 UNITS FOR BG 351-400, CALL MD IF BG OVER 400 (MAX 48 UNITS PER DAY) meclizine 25 mg tablet 25 mg PO DAILY PRN Patient Comments: TAKE ONE TABLET BY MOUTH BID midodrine 10 mg tablet 10 mg PO TID Patient Comments: take 1 tablet by mouth three times a day potassium chloride 10 mEq tablet extended release 20 meq PO DAILY nystatin [Nyamyc] 100,000 unit/gram powder 1 applic TOPICAL BID Patient Comments: apply to affected area twice a day if needed topiramate 200 mg tablet 200 mg PO TID Patient Comments: TAKE ONE TABLET BY MOUTH TWICE DAILY (VIAL) ipratropium-albuterol 0.5 mg-3 mg(2.5 mg base)/3 mL solution for nebulization 3 ml inhalation Q6H PRN (Reason: shortness of breath or wheezing) melatonin 5 mg capsule 12 mg PO QHS lorazepam 0.5 mg tablet 0.5 mg PO QHS PRN carbamazepine [Tegretol] 200 mg tablet 200 mg PO 0900,1700 carbamazepine [Tegretol] 200 mg tablet 300 mg PO QHS Arnuity Ellipta 200 mcg/actuation blister with device 1 inh inhalation DAILY midodrine 5 mg tablet 2.5 mg PO DAILY Rx Instructions: hold if bp >130/90 Referrals / Follow Up: Vi Eng DO [Primary Care Provider] -
--- NOTE | 2023-11-15 13:30 | PCM.DC.SUM ---
Providers Date of Admission: 11/12/23 Date of Discharge: 11/15/23 Primary Care Physician: Dr. Vi Eng, DO Reason For Visit: COMPLICATED UTI, POSSIBLY SYMPTOMATIC BRADYCARDIA Diagnosis Discharge Diagnosis (1) Generalized weakness: Status: Acute Code(s): R53.1 - Weakness (2) Lightheadedness: Status: Acute Code(s): R42 - Dizziness and giddiness (3) Symptomatic bradycardia: Status: Acute Code(s): R00.1 - Bradycardia, unspecified Medications at Discharge Home Medications albuterol sulfate 90 mcg/actuation aerosol inhaler 2 puff inhalation Q4H PRN Wheezing 09/03/22 atorvastatin 80 mg tablet 80 mg PO QHS . 09/03/22 inuhuyqdkf-jilgfibkzzytc-mfmyyfho 50 mg-325 mg-40 mg tablet 1 tab PO Q6H PRN Headache 09/03/22 diclofenac sodium 75 mg tablet,delayed release 75 mg PO BID PRN pain 09/03/22 docusate sodium 100 mg capsule 100 mg PO BID CONSTIPATION 09/03/22 ergocalciferol (vitamin D2) 1,250 mcg (50,000 unit) capsule 50,000 unit PO MO Check with primary doctor 09/03/22 flash glucose scanning reader (END[employer]Style Es 2 [place]) 09/03/22 flash glucose sensor (FreeStyle Es 2 Sensor kit) 09/03/22 gabapentin 100 mg capsule 100 mg PO BID . 09/03/22 gabapentin 800 mg tablet 800 mg PO QHS PAIN 09/03/22 glucagon 1 mg injection kit 1 mg IM PRN PRN hypoglycemia 09/03/22 insulin syr/ndl U100 half shirley 0.5 mL 31 gauge x 5/16 (Droplet Insulin Syringe (half unit)) 09/03/22 omeprazole 40 mg capsule,delayed release 40 mg PO DAILY GERD 09/03/22 promethazine 25 mg tablet 25 mg PO Q6H PRN PRN Nausea #12 TABLETS 11/08/22 dextromethorphan 20 mg-quinidine 10 mg capsule (Nuedexta) 1 cap PO BID DEPRESSION 02/06/23 ubrogepant 100 mg tablet (Ubrelvy) 100 mg PO .COMPLEX PRN MIGRAINE 02/06/23 duloxetine 60 mg capsule,delayed release 60 mg PO BID . 05/31/23 insulin glargine 100 unit/mL (3 mL) subcutaneous pen See Rx Instructions subcut .COMPLEX DM 05/31/23 furosemide 20 mg tablet (Lasix) 20 mg PO DAILY EDEMA 07/29/23 semaglutide 0.25 mg or 0.5 mg (2 mg/3 mL) subcutaneous pen injector (Ozempic) 0.25 mg subcut QWEEK . 07/29/23 tizanidine 4 mg tablet 4 mg PO Q8H PRN muscle spasticity 07/29/23 galcanezumab-gnlm 120 mg/mL subcutaneous pen injector (Emgality Pen) 120 mg subcut .COMPLEX . 09/04/23 insulin lispro 100 unit/mL subcutaneous solution 3 unit subcut .COMPLEX DIABETES 09/04/23 meclizine 25 mg tablet 25 mg PO DAILY PRN vertigo 09/04/23 midodrine 10 mg tablet 10 mg PO TID . 09/04/23 nystatin 100,000 unit/gram topical powder (Nyamyc) 1 applic topical BID RASH 09/04/23 potassium chloride 10 mEq tablet,extended release 20 meq PO DAILY SUPPLEMENT 09/04/23 topiramate 200 mg tablet 200 mg PO TID , 09/04/23 ipratropium 0.5 mg-albuterol 3 mg (2.5 mg base)/3 mL nebulization soln 3 ml inhalation Q6H PRN shortness of breath or wheezing 09/10/23 melatonin 5 mg capsule 12 mg PO QHS SLEEP 09/10/23 lorazepam 0.5 mg tablet 0.5 mg PO QHS PRN Anxiety 10/09/23 carbamazepine 200 mg tablet (Tegretol) 200 mg PO 0900,1700 seizure 10/10/23 carbamazepine 200 mg tablet (Tegretol) 300 mg PO QHS seizures 10/10/23 fluticasone furoate 200 mcg/actuation blister powder for inhalation (Arnuity Ellipta) 1 inh inhalation DAILY copd 11/13/23 midodrine 5 mg tablet 2.5 mg PO DAILY blood pressure 11/13/23 cephalexin 500 mg capsule 500 mg PO BID #12 caps 11/15/23 Hospital Course Operations None Procedures EKG and - (Chest x-ray/CT brain) Summary of Care Provided Minutes Spent on Discharge: 37 Hospital Course: Patient is a 58-year-old white female who resides at a local halfway facility with plans to transition to assisted living in the near future who presented to the emergency department was from hospital on 11/12/2023 with lightheadedness/dizziness/fatigue/generalized weakness and bradycardia. She has chronic orthostasis is on midodrine at baseline. She was recently found to have a urinary tract infection and placed on antibiotics. Vital signs on presentation showed a temperature of 96.6, heart rate 45, blood pressure 108/60, respiratory was 12 and oxygen saturation was 99% on room air. Her CBC was unimpressive of. CMP showed no significant acute abnormalities. Hepatic profile was unremarkable. Troponin was 7 and her UA showed occult blood with positive nitrites, leuk esterase and white cells with 1+ bacteria despite being on antibiotics. Urine culture was sent after her UA was resulted and she was started on IV antibiotics with Rocephin. Her EKG showed a junctional rate of 47 and there is previous documentation of bradycardia when she has been ill in the past. She is on no rate controlling medications. CT of the brain showed age-related changes without any acute abnormalities. Chest x-ray is unremarkable. She was admitted to the telemetry floor because of her bradycardia which eventually resolved independently of any intervention. Her lightheadedness and dizziness resolved. Urine culture showed an E. coli UTI and on review of previous cultures it appears she has frequent UTIs of which most have been E. coli. There is question of whether or not she has an underlying demyelinating disease/possible MS so with her recurrent UTIs I do feel urological evaluation is warranted given her frequent UTIs and have recommended she follow-up with Dr. Rodriguez as an outpatient after discharge. Referral was made and they are to call and set up an appointment to be seen in the next 2 to 4 weeks for possible urodynamic studies. With regards to her urinary tract infection she received 4 days of IV antibiotics during her hospital course and will continue oral antibiotics for another 6 days at discharge with Keflex. The organism is fairly pansensitive. She was able to be discharged back to her previous level of care on 11/15/2023 in stable condition. Discharge diagnoses: Symptomatic bradycardia-resolved E. coli urinary tract infection Recurrent UTIs Lightheadedness-resolved Generalized weakness-resolved Demyelinating disease-question MS Seizure disorder History of stroke DM-2 Chronic migraines Chronic orthostasis History of hypertension Hyperlipidemia GERD Allergic rhinitis Obesity History of tobacco abuse Anxiety/depression Chronic pain Physical Exam Const alert, oriented x3, no apparent distress, no limitations and well nourished; Negative for average body habitus or healthy appearing Constitutional Narrative: Obese, middle-aged, white female, sitting up in a chair at the bedside, appears older than stated age, appears comfortable and nontoxic currently General Appearance: cooperative, comfortable, well kempt and well developed Orientation / Consciousness: awake, oriented to person, oriented to place and oriented to time Exam Limitations: no limitations Nutritional Appearance: obese HEENT normocephalic, head/scalp atraumatic and hearing grossly normal bilaterally HEENT Narrative: Mallampati 3-4, no thrush Eyes PERRL, EOMs intact bilaterally and conjunctivae normal Eyes Narrative: No scleral icterus Neck no lymphadenopathy and supple Neck Narrative: Neck is short and thick, trachea midline, no noted thyroid enlargement Resp normal respiratory effort, no retractions, no use of accessory muscles and clear to auscultation bilaterally Auscultation: Negative for rales, rhonchi or wheezes Cardio regular rate, regular rhythm, S1 normal heart sound, S2 normal heart sound, no murmurs, no rub, no gallops and no clicks GI normal to inspection, nondistended, normoactive bowel sounds, soft to palpation and non-tender Extremity no clubbing, cyanosis or edema Extremity Narrative: Pedal pulses are 2+ Skin no wounds, skin turgor normal and no jaundice Neuro oriented x3, moves all extremities and no focal motor deficits Neuro Narrative: Generalized weakness noted with no focal deficits Speech: speech normal Psych affect normal Psych Narrative: Eye contact is good, patient appropriately interacts Weight / BMI Weight Weight: 102.3 kg Body Mass Index (BMI) 36.3 ABG / Lab / Microbiology Data 11/15/23 05:45 11/15/23 05:45 Laboratory: Laboratory Results - last 24 hr 11/14/23 17:15: POC Glucose 160 H 11/14/23 21:56: POC Glucose 169 H 11/15/23 05:45: WBC 7.2, RBC 3.67 L, Hgb 10.2 L, Hct 33.2 L, MCV 90.5, MCH 27.8, MCHC 30.7 L, RDW Std Deviation 48.1 H, RDW Coeff of He 14.7 H, Plt Count 231, MPV 11.0, Immature Gran % (Auto) 0.400, Neut % (Auto) 50.5, Lymph % (Auto) 37.8, Coffee % (Auto) 8.9, Eos % (Auto) 1.7, Baso % (Auto) 0.7, Absolute Neuts (auto) 3.6, Absolute Lymphs (auto) 2.71, Nucleated RBC % 0, Sodium 139, Potassium 3.9, Chloride 112 H, Carbon Dioxide 19.0 L, Anion Gap 8, BUN 21 H, Creatinine 0.72, Estim Creat Clear Calc 104.11, Est GFR (MDRD) Af Amer 108, Est GFR (MDRD) Non-Af 89, BUN/Creatinine Ratio 29.3 H, Glucose 138 H, Calcium 8.7 11/15/23 06:25: POC Glucose 116 H 11/15/23 11:42: POC Glucose 216 H Microbiology: Microbiology 11/12/23 22:30 Urine, Clean Catch Urine Culture - Final Presumptive E. coli D/C Instructions Discharge Diet: Low fat / Low cholesterol and 1800 Calorie Control Diet Please Follow Up With: Regine Rodriguez MD Meaningful Use Info Meaningful Use Meaningful Use Diagnoses (Choose all that apply): None applicable Ischemic Stroke Statin Dosing Therapy Reference: STATIN DOSE THERAPY REFERENCE: * Patients > 75 years receive moderate or high dose statin therapy. * Patients 75 years or YOUNGER should receive HIGH intensity statin dose unless contraindicated. You will be required to document reason for non-treatment if statin daily dose does not meet guidelines. HIGH DOSE STATIN THERAPY DAILY Atorvastatin > than or = to 40 mg Rosuvastatin > than or = to 20 mg Amlodipine + Atorvastatin > than or = to 2.5/40 mg Ezetimibe + Simvastatin 10/80 mg Simvastatin 80mg Discharge Plan Admission Admit Date/Time: 11/12/23 23:28 Primary Reason for Your Visit: Lightheadedness Attending Provider: Capri Barnes Primary Care Provider: Vi Eng Consulting Providers: Tia Snede; Sugar Lomax Discharge Orders/Prescriptions Prescriptions: New cephalexin 500 mg capsule 500 mg PO BID Qty: 12 0RF Continued atorvastatin 80 mg tablet 80 mg PO QHS Patient Comments: TAKE ONE TABLET BY MOUTH DAILY AT 9PM AT BEDTIME sxtrkyvnnv-jwowjpozhvjqb-zjre 50-325-40 mg Tablet 1 tab PO Q6H PRN (Reason: Headache) glucagon 1 mg Kit 1 mg IM PRN PRN (Reason: hypoglycemia) Hold Instructions: Pt is ill omeprazole 40 mg capsule,delayed release(DR/EC) 40 mg PO DAILY Patient Comments: TAKE ONE CAPSULE BY MOUTH DAILY AT 9AM gabapentin 800 mg tablet 800 mg PO QHS Patient Comments: TAKE ONE TABLET BY MOUTH DAILY AT 9PM AT BEDTIME docusate sodium 100 mg Capsule 100 mg PO BID diclofenac sodium 75 mg tablet,delayed release (DR/EC) 75 mg PO BID PRN (Reason: pain) Patient Comments: TAKE ONE TABLET BY MOUTH TWICE DAILY NEEDED (VIAL) gabapentin 100 mg Capsule 100 mg PO BID Rx Instructions: MORNING AND NOON albuterol sulfate 90 mcg/actuation HFA aerosol inhaler 2 puff INHALATION Q4H PRN (Reason: Wheezing) Patient Comments: INHALE TWO PUFFS BY MOUTH DIRECTED EVERY 6 HOURS NEEDED FOR WHEEZING OR FOR SHORTNESS OF BREATH (BULK) (DME) FreeStyle Es 2 Sensor Kit MISCELLANEOUS Patient Comments: apply 1 SENSOR to back OF UPPER ARM REMOVE AND REPLACE every 14 d... (REFER TO PRESCRIPTION NOTES). (DME) FreeStyle Es 2 [place] Misc MISCELLANEOUS Patient Comments: USE CONTINUOUSLY TO MONITOR BLOOD SUGARS DAILY (DME) Droplet Insulin Syr(half unit) 0.5 mL 31 gauge x 5/16 syringe MISCELLANEOUS Patient Comments: USE TO INJECT INSULIN UNDER THE SKIN EVERY MEAL AND AT BEDTIME PER SLIDING SCALE ergocalciferol (vitamin D2) 1,250 mcg (50,000 unit) capsule 50,000 unit PO MO Patient Comments: TAKE 1 CAPSULE BY MOUTH EVERY WEDNESDAY AT 9AM Rx Instructions: takes on mondays promethazine 25 mg tablet 25 mg PO Q6H PRN PRN (Reason: Nausea) Qty: 12 0RF insulin glargine 100 unit/mL (3 mL) insulin pen See Rx Instructions SUBCUT .COMPLEX Rx Instructions: subcutaneously 36 units qam, 24 units qhs; duloxetine 60 mg capsule,delayed release(DR/EC) 60 mg PO BID Patient Comments: TAKE ONE CAPSULE BY MOUTH TWICE DAILY Nuedexta 20-10 mg capsule 1 cap PO BID Ubrelvy 100 mg tablet 100 mg PO .COMPLEX PRN (Reason: MIGRAINE) Rx Instructions: TAKE 1 TABLET BY MOUTH AT ONSET OF MIGRAINE. IF NO IMPROVEMENT WITHIN 2 HRS TAKE 1 TABLET. DO NOT EXCEED 2 TABS IN 24 HOURS furosemide [Lasix] 20 mg tablet 20 mg PO DAILY Ozempic 0.25 mg or 0.5 mg (2 mg/3 mL) pen injector 0.25 mg SUBCUT QWEEK Patient Comments: INJECT 0.25 MG SUBCUTANEOUSLY ONCE A WEEK Rx Instructions: WEDNESDAY tizanidine 4 mg tablet 4 mg PO Q8H PRN (Reason: muscle spasticity) Patient Comments: TAKE ONE TABLET BY MOUTH EVERY 8 HOURS NEEDED (VIAL) Emgality Pen 120 mg/mL pen injector 120 mg SUBCUT .COMPLEX Patient Comments: INJECT 1 ML (120MG TOTAL) UNDER THE SKIN EVERY 28 DAYS (BULK) on the Rx Instructions: 120 mg subcutaneously Q28D; insulin lispro 100 unit/mL solution 3 unit subcut .COMPLEX Rx Instructions: 3 units subcutaneously achs; INJECT PER SLIDING SCALE THREE TIMES DAILY FOLLOWS ONE UNIT IF BG LESS THAN 110, TWO UNITS FOR BG 111-150, FOUR UNITS FOR BG 151-200, SEVEN UNITS FOR BG 201-250, 10 UNITS FOR BG 251-300, 13 UNITS FOR BG 301-350, 16 UNITS FOR BG 351-400, CALL MD IF BG OVER 400 (MAX 48 UNITS PER DAY) meclizine 25 mg tablet 25 mg PO DAILY PRN Patient Comments: TAKE ONE TABLET BY MOUTH BID midodrine 10 mg tablet 10 mg PO TID Patient Comments: take 1 tablet by mouth three times a day potassium chloride 10 mEq tablet extended release 20 meq PO DAILY nystatin [Nyamyc] 100,000 unit/gram powder 1 applic TOPICAL BID Patient Comments: apply to affected area twice a day if needed topiramate 200 mg tablet 200 mg PO TID Patient Comments: TAKE ONE TABLET BY MOUTH TWICE DAILY (VIAL) ipratropium-albuterol 0.5 mg-3 mg(2.5 mg base)/3 mL solution for nebulization 3 ml inhalation Q6H PRN (Reason: shortness of breath or wheezing) melatonin 5 mg capsule 12 mg PO QHS lorazepam 0.5 mg tablet 0.5 mg PO QHS PRN carbamazepine [Tegretol] 200 mg tablet 200 mg PO 0900,1700 carbamazepine [Tegretol] 200 mg tablet 300 mg PO QHS Arnuity Ellipta 200 mcg/actuation blister with device 1 inh inhalation DAILY midodrine 5 mg tablet 2.5 mg PO DAILY Rx Instructions: hold if bp >130/90 Referrals / Follow Up: Regine Rodriguez MD [Med Staff - Active Staff] - See Referral Note (2-4 weeks for recurrent UTI) Vi Eng DO [Primary Care Provider] - Disposition Disposition (needs filled in before D/C Order can be placed): NonSkilled NH/Intermed Care Charges/Coding Visit Charges Inpatient E&M: 20007 SNF Disch >30 Min
--- NOTE | 2023-11-15 13:58 | CASEMGMT ---
Discharge Planning Discharge orders, signed med list, and transport time sent to [facility] via [facility]. Physicians will transport patient by wheelchair at 3p. Nursing, SW, and patient updated. Michelle Pereyra, Discharge Planning Asst.
[2023-11-15 14:02] VITALS: BP 135/81; PULSE 78; RESP 17; TEMP 36.4; O2SAT 98
--- NOTE | 2023-11-15 14:02 | CASEMGMT ---
Patient is ready for discharge back to [facility]. Plan: d/c back to [facility] under intermediate level of care. Physicians will transport patient via wheelchair van. Joselin ALICIA
--- NOTE | 2023-11-15 14:07 | PHA.DC.MR.R ---
Pharmacy [place] Med Reconciliation Pharmacy Service has performed discharge medication reconciliation for this patient. The patient's discharge medication list was reviewed for discrepancies and discrepancies were resolved. Medications at Discharge Home Medications albuterol sulfate 90 mcg/actuation aerosol inhaler 2 puff inhalation Q4H PRN Wheezing 09/03/22 atorvastatin 80 mg tablet 80 mg PO QHS cholesterol 09/03/22 ibvjemqtli-snhgmrnozfpow-hdugcstr 50 mg-325 mg-40 mg tablet 1 tab PO Q6H PRN Headache 09/03/22 diclofenac sodium 75 mg tablet,delayed release 75 mg PO BID PRN pain 09/03/22 docusate sodium 100 mg capsule 100 mg PO BID CONSTIPATION 09/03/22 ergocalciferol (vitamin D2) 1,250 mcg (50,000 unit) capsule 50,000 unit PO MO vitamin 09/03/22 flash glucose scanning reader ([employer]Style Es 2 [place]) 09/03/22 flash glucose sensor (FreeStyle Es 2 Sensor kit) 09/03/22 gabapentin 100 mg capsule 100 mg PO BID nerve pain 09/03/22 gabapentin 800 mg tablet 800 mg PO QHS nerve pain 09/03/22 glucagon 1 mg injection kit 1 mg IM PRN PRN hypoglycemia 09/03/22 insulin syr/ndl U100 half shirley 0.5 mL 31 gauge x 5/16 (Droplet Insulin Syringe (half unit)) 09/03/22 omeprazole 40 mg capsule,delayed release 40 mg PO DAILY GERD 09/03/22 promethazine 25 mg tablet 25 mg PO Q6H PRN PRN Nausea #12 TABLETS 11/08/22 dextromethorphan 20 mg-quinidine 10 mg capsule (Nuedexta) 1 cap PO BID DEPRESSION 02/06/23 ubrogepant 100 mg tablet (Ubrelvy) 100 mg PO .COMPLEX PRN MIGRAINE 02/06/23 duloxetine 60 mg capsule,delayed release 60 mg PO BID mental health 05/31/23 insulin glargine 100 unit/mL (3 mL) subcutaneous pen See Rx Instructions subcut .COMPLEX diabetes 05/31/23 furosemide 20 mg tablet (Lasix) 20 mg PO DAILY EDEMA 07/29/23 semaglutide 0.25 mg or 0.5 mg (2 mg/3 mL) subcutaneous pen injector (Ozempic) 0.25 mg subcut QWEEK diabetes 07/29/23 tizanidine 4 mg tablet 4 mg PO Q8H PRN muscle spasticity 07/29/23 galcanezumab-gnlm 120 mg/mL subcutaneous pen injector (Emgality Pen) 120 mg subcut .COMPLEX migrane 09/04/23 insulin lispro 100 unit/mL subcutaneous solution 3 unit subcut .COMPLEX DIABETES 09/04/23 meclizine 25 mg tablet 25 mg PO DAILY PRN vertigo 09/04/23 midodrine 10 mg tablet 10 mg PO TID BP 09/04/23 nystatin 100,000 unit/gram topical powder (Nyamyc) 1 applic topical BID RASH 09/04/23 potassium chloride 10 mEq tablet,extended release 20 meq PO DAILY SUPPLEMENT 09/04/23 topiramate 200 mg tablet 200 mg PO TID seizures 09/04/23 ipratropium 0.5 mg-albuterol 3 mg (2.5 mg base)/3 mL nebulization soln 3 ml inhalation Q6H PRN shortness of breath or wheezing 09/10/23 melatonin 5 mg capsule 12 mg PO QHS SLEEP 09/10/23 lorazepam 0.5 mg tablet 0.5 mg PO QHS PRN Anxiety 10/09/23 carbamazepine 200 mg tablet (Tegretol) 200 mg PO 0900,1700 seizure 10/10/23 carbamazepine 200 mg tablet (Tegretol) 300 mg PO QHS seizures 10/10/23 fluticasone furoate 200 mcg/actuation blister powder for inhalation (Arnuity Ellipta) 1 inh inhalation DAILY copd 11/13/23 midodrine 5 mg tablet 2.5 mg PO DAILY blood pressure 11/13/23 cephalexin 500 mg capsule 500 mg PO BID #12 caps 11/15/23
[2023-11-15] MEDS: Midodrine HCl 5 MG Tablet 10 MG PO (14:17)
== END 2023-11-15 14:40 | disposition intermediate care facility (04) | DRG 690 ==
LOC: ED 23:10 → PCU 23:47
PROVIDERS: Student in an Organized Health Care Education/Training Program; Admitting Provider Family Medicine; Emergency Provider Emergency Medicine; PCP Family Medicine; Visit Provider Internal Medicine
DX: N39.0 Urinary tract infection, site not specified (principal); G37.9 Demyelinating disease of central nervous system, unspecified; E11.40 Type 2 diabetes mellitus with diabetic neuropathy, unspecified; E66.01 Morbid (severe) obesity due to excess calories; D64.9 Anemia, unspecified; B96.20 Unspecified Escherichia coli [E. coli] as the cause of diseases classified elsewhere; J44.9 Chronic obstructive pulmonary disease, unspecified; G40.909 Epilepsy, unspecified, not intractable, without status epilepticus; Z79.4 Long term (current) use of insulin; I10 Essential (primary) hypertension; F32.A Depression, unspecified; E78.5 Hyperlipidemia, unspecified; K21.9 Gastro-esophageal reflux disease without esophagitis; G43.709 Chronic migraine without aura, not intractable, without status migrainosus; J30.9 Allergic rhinitis, unspecified; F41.9 Anxiety disorder, unspecified; I95.1 Orthostatic hypotension; Z79.51 Long term (current) use of inhaled steroids; Z79.899 Other long term (current) drug therapy; Z87.891 Personal history of nicotine dependence; Z86.73 Personal history of transient ischemic attack (TIA), and cerebral infarction without residual deficits; Z68.37 Body mass index [BMI] 37.0-37.9, adult
CPT/HCPCS: 36415; 70450; 71045; 80048; 80053; 81001; 82962; 83735; 84439; 84443; 84484; 85025; 87086; 87088; 87186; 93005; 97110; 97162; 97165; 97530; 97535; 99285; 99406; J7030; J7040; A4216

== ENCOUNTER → 2023-11-16 05:00 | Outpatient (REF) | payer MEDICARE, MEDICAID, SELFPAY ==
[2023-11-16 08:42] LABS: Hematocrit 39.5 % (37-47); Hemoglobin 11.7 g/dL (12.0-15.0); Mean Corp Hgb Conc 29.6 g/dL (32-36); Mean Corpuscular Hgb 27.4 pg (27.0-32.0); Mean Corpuscular Volume 92.5 fL (81-99); Mean Platelet Vol. 11.4 fl (6.2-12.0); Platelet Count 295 K/mm3 (150-450); RBC Distribution Width CV 15.1 % (11.6-14.6); RBC Distribution Width SD 49.4 fl (35.1-43.9); Red Blood Count 4.27 M/mm3 (4.2-5.4); White Blood Count 9.6 K/mm3 (4.4-11.0)
[2023-11-16 08:59] LABS: Vitamin D,25 Hydroxy 39.5 ng/mL
[2023-11-16 09:10] LABS: Anion Gap 6 (5-15); BUN 27 mg/dL (7-18); BUN/Creat Ratio 27.7 RATIO (10-20); Calcium,Total 9.4 mg/dL (8.5-10.1); Chloride 112 mmol/L (98-107); Creatinine, Serum 0.97 mg/dL (0.55-1.02); EST Glomerular Filtration Rate 63 mL/min (>60); Est Glom Filt Rate - Afr Amer 76 mL/min (>60); Glucose 129 mg/dL (74-106); Magnesium 2.3 mg/dL (1.6-2.6); Potassium 3.5 mmol/L (3.5-5.1); Sodium Level 139 mmol/L (136-145)
== END ==
LOC: OLS.SW 05:00
PROVIDERS: PCP Family Medicine; Visit Provider Internal Medicine
DX: I10 Essential (primary) hypertension (principal); J44.9 Chronic obstructive pulmonary disease, unspecified; N39.0 Urinary tract infection, site not specified; E11.9 Type 2 diabetes mellitus without complications; G43.909 Migraine, unspecified, not intractable, without status migrainosus; M62.81 Muscle weakness (generalized); I95.9 Hypotension, unspecified; G40.909 Epilepsy, unspecified, not intractable, without status epilepticus; L40.9 Psoriasis, unspecified; Z76.89 Persons encountering health services in other specified circumstances
CPT/HCPCS: 36415; 80048; 82306; 83735; 85027

== ENCOUNTER → 2023-11-24 | Outpatient (CLI) | payer MEDICARE, MEDICAID, SELFPAY ==
--- NOTE | 2023-11-24 13:14 | CT_ITS ---
STUDY: CT ABDOMEN AND PELVIS WITH CONTRAST REASON FOR EXAM: Female, 58 years old. Right lower quadrant pain RADIATION DOSAGE (If Supplied By Facility): CTDIvol = ( 17.06 ) mGy, DLP = ( 1323.56 ) mGycm TECHNIQUE: Transaxial images were obtained from the dome of the diaphragm to the symphysis pubis with oral contrast. Oral and amp; IV Readi-CAT and amp; 100mL Isovue-300 was administered. Sagittal and coronal images were reconstructed. Individualized dose optimization techniques were used for this CT. COMPARISON: Comparison is made with prior CT scan the abdomen and pelvis dated October 09, 2023. FINDINGS: The visualized lung bases are unremarkable. Coronary artery calcification. There is decreased attenuation of the liver consistent with steatosis. There are surgical clips in the gallbladder fossa consistent with a prior cholecystectomy. Normal spleen. Normal pancreas. There is a small, circumscribed, smooth, low attenuation left adrenal mass, consistent with an adrenal adenoma. This measures 2 cm. It is unchanged. Normal right adrenal gland. Normal right kidney. Normal left kidney. Normal visualized stomach. Normal small intestine. Moderate amount of fecal material is seen in the left hemicolon. The patient is status post appendectomy. Normal abdominal aorta. Normal inferior vena cava. Normal retroperitoneum. Normal urinary bladder. Normal abdominal wall. There are mild degenerative changes of the visualized lumbar spine. CT/Abdomen/Pelvis WITH Contrast IMPRESSION: Fatty infiltration of the liver. Status post cholecystectomy. Electronically Signed: Luis Enrique Irwin MD at 15:13 EDT ,
== END | disposition home or self-care (01) ==
LOC: CT 13:09
PROVIDERS: PCP Internal Medicine; Referring Provider Surgery; Visit Provider Surgery
DX: R10.31 Right lower quadrant pain (principal)
CPT/HCPCS: 74177; Q9967

== ENCOUNTER → 2023-12-08 04:00 | Outpatient (REF) | payer MEDICARE, MEDICAID, SELFPAY ==
[2023-12-08 08:36] LABS: Carbamazepine (Tegretol) 8.5 ug/mL (4.0-12.0)
== END ==
LOC: OLS.SW 04:00
PROVIDERS: PCP Internal Medicine; Referring Provider Internal Medicine; Visit Provider Internal Medicine
DX: Z79.899 Other long term (current) drug therapy (principal)
CPT/HCPCS: 36415; 80156

== ENCOUNTER → 2023-12-24 05:00 | Outpatient (REF) | payer MEDICARE, MEDICAID, SELFPAY ==
[2023-12-24 08:57] LABS: Absolute Lymphocyte Count 2.08 X10^3/uL (0.83-4.51); Absolute Neutrophil Count 5.1 X10^3/uL (2.0-7.7); Basophil# 0.04 X10^3/uL; Basophil% 0.5 % (0-1); Eosinophil# 0.11 X10^3/uL; Eosinophils% 1.4 % (0-5); Hematocrit 30.6 % (37-47); Hemoglobin 9.1 g/dL (12.0-15.0); Lymphocyte # 2.08 X10^3/ul (0.83-4.51); Lymphocyte % 26.5 % (19-41); Mean Corp Hgb Conc 29.7 g/dL (32-36); Mean Corpuscular Hgb 27.2 pg (27.0-32.0); Mean Corpuscular Volume 91.6 fL (81-99); Mean Platelet Vol. 12.3 fl (6.2-12.0); Monocyte# 0.53 X10^3/uL; Monocyte% 6.8 % (0-10); NRBC Flagged by Analyzer 0 % (0-5); Neutrophil # 5.07 X10^3/uL (2.7-7.7); Neutrophil % 64.5 % (47-70); Platelet Count 163 K/mm3 (150-450); RBC Distribution Width CV 15.9 % (11.6-14.6); RBC Distribution Width SD 53.2 fl (35.1-43.9); Red Blood Count 3.34 M/mm3 (4.2-5.4); White Blood Count 7.9 K/mm3 (4.4-11.0)
[2023-12-24 09:10] LABS: Anion Gap 8 (5-15); BUN 34 mg/dL (7-18); BUN/Creat Ratio 37.8 RATIO (10-20); Calcium,Total 8.8 mg/dL (8.5-10.1); Chloride 113 mmol/L (98-107); EST Glomerular Filtration Rate 69 mL/min (>60); Est Glom Filt Rate - Afr Amer 83 mL/min (>60); Glucose 99 mg/dL (74-106); Sodium Level 141 mmol/L (136-145)
== END ==
LOC: OLS.SW 05:00
PROVIDERS: PCP Internal Medicine; Visit Provider Internal Medicine
DX: J44.9 Chronic obstructive pulmonary disease, unspecified (principal); I10 Essential (primary) hypertension; E78.5 Hyperlipidemia, unspecified; E11.65 Type 2 diabetes mellitus with hyperglycemia; R00.1 Bradycardia, unspecified; G40.909 Epilepsy, unspecified, not intractable, without status epilepticus; I95.9 Hypotension, unspecified; L40.9 Psoriasis, unspecified; G43.909 Migraine, unspecified, not intractable, without status migrainosus
CPT/HCPCS: 36415; 80048; 85025

== ENCOUNTER → 2023-12-27 06:40 | Outpatient (REF) | payer MEDICARE, MEDICAID, SELFPAY ==
[2023-12-27 08:38] LABS: Hematocrit 33.2 % (37-47); Mean Corp Hgb Conc 30.1 g/dL (32-36); Mean Corpuscular Hgb 27.5 pg (27.0-32.0); Mean Corpuscular Volume 91.2 fL (81-99); Mean Platelet Vol. 11.7 fl (6.2-12.0); Platelet Count 215 K/mm3 (150-450); RBC Distribution Width CV 15.7 % (11.6-14.6); RBC Distribution Width SD 51.9 fl (35.1-43.9); Red Blood Count 3.64 M/mm3 (4.2-5.4); White Blood Count 6.9 K/mm3 (4.4-11.0)
== END ==
LOC: OLS.SW 06:40
PROVIDERS: PCP Internal Medicine; Visit Provider Internal Medicine
DX: D64.9 Anemia, unspecified (principal)
CPT/HCPCS: 36415; 85027

== ENCOUNTER → 2024-01-10 | Outpatient (CLI) | payer MEDICARE, MEDICAID, SELFPAY ==
--- NOTE | 2024-01-10 12:25 | US_ITS ---
PROCEDURE: RENAL ULTRASOUND - COMPLETE REASON FOR EXAM: Female, 58 years old. Recurrent UTIs TECHNIQUE: Ultrasound evaluation of the bilateral kidneys was performed with real-time ultrasonography and static grayscale imaging. COMPARISON: None. FINDINGS: RIGHT KIDNEY: Normal location of the right kidney which is normal in size. The right kidney measures 11.8 x 5.7 x 5.4 cm. There is a normal cortex of the right kidney. The renal cortex measures 1.6 cm. There is no right renal mass or cyst. There are no right renal calculi. There is no right hydronephrosis. DISTAL RIGHT URETER: There is non-visualization of the distal right ureter. There is no demonstrated right ureterovesical junction calculus. There is a visualized right ureteral jet. LEFT KIDNEY: Normal location of the left kidney which is normal in size. The left kidney measures 4.2 x 5.3 x 5.9 cm. There is a normal cortex of the left kidney. The renal cortex measures 1.8 cm. There is no left renal mass or cyst. There are no left renal calculi. There is no left hydronephrosis. DISTAL LEFT URETER: There is non-visualization of the distal left ureter. There is no demonstrated left ureterovesical junction calculus. There is a visualized left ureteral jet. BLADDER: The distended urinary bladder has a volume of 364 ml. There is a normal wall thickness of the distended urinary bladder. There is no demonstrated mass within the urinary bladder. There is no demonstrated bladder calculi. US/Kidney and Bladder IMPRESSION: Unremarkable ultrasound examination of the bilateral kidneys and urinary bladder. Electronically Signed: Edgar Parikh MD at 15:29 EDT ,
== END | disposition home or self-care (01) ==
PROVIDERS: PCP Internal Medicine; Referring Provider Urology; Visit Provider Urology
DX: N39.0 Urinary tract infection, site not specified (principal); Z87.440 Personal history of urinary (tract) infections
CPT/HCPCS: 76770

== ENCOUNTER → 2024-01-19 05:00 | Outpatient (REF) | payer MEDICARE, MEDICAID, SELFPAY ==
[2024-01-19 07:00] LABS: AST(SGOT) 14 U/L (15-37); Alanine Aminotransfer ALT/SGPT 18 U/L (13-56); Albumin, Serum 3.5 g/dL (3.2-5.0); Alkaline Phosphatase 108 U/L (45-117); Anion Gap 6 (5-15); BUN 25 mg/dL (7-18); BUN/Creat Ratio 26.7 RATIO (10-20); Calcium,Total 8.8 mg/dL (8.5-10.1); Chloride 113 mmol/L (98-107); Creatinine, Serum 0.94 mg/dL (0.55-1.02); EST Glomerular Filtration Rate 65 mL/min (>60); Est Glom Filt Rate - Afr Amer 79 mL/min (>60); Globulin 3.4 g/dL (2.2-4.2); Glucose 124 mg/dL (74-106); Potassium 3.4 mmol/L (3.5-5.1); Protein, Total 6.9 g/dL (6.4-8.2); Sodium Level 141 mmol/L (136-145)
== END ==
LOC: OLS.SW 05:00
PROVIDERS: PCP Internal Medicine; Visit Provider Internal Medicine
DX: E11.9 Type 2 diabetes mellitus without complications (principal)
CPT/HCPCS: 36415; 80053

== ENCOUNTER → 2024-02-17 | Outpatient (REF) | payer MEDICARE, MEDICAID, SELFPAY ==
[2024-02-17 09:25] LABS: Hematocrit 39.5 % (37-47); Hemoglobin 11.8 g/dL (12.0-15.0); Mean Corp Hgb Conc 29.9 g/dL (32-36); Mean Corpuscular Volume 90.4 fL (81-99); Mean Platelet Vol. 11.7 fl (6.2-12.0); Platelet Count 209 K/mm3 (150-450); RBC Distribution Width CV 14.8 % (11.6-14.6); RBC Distribution Width SD 48.2 fl (35.1-43.9); Red Blood Count 4.37 M/mm3 (4.2-5.4); White Blood Count 8.5 K/mm3 (4.4-11.0)
== END ==
LOC: OLS.SWAL 05:00
PROVIDERS: PCP Internal Medicine; Visit Provider Internal Medicine
DX: L08.9 Local infection of the skin and subcutaneous tissue, unspecified (principal)
CPT/HCPCS: 36415; 85027

== ENCOUNTER 2024-03-07 21:48 | Emergency (ER) | payer MEDICARE, MEDICAID, SELFPAY ==
[2024-03-07 21:49] VITALS: BP 93/58; PULSE 31; RESP 12; TEMP 36.6; O2SAT 94; BMI 37.9
--- NOTE | 2024-03-07 21:56 | EKG12_ITS ---
Test Reason : BRADYCARDIA Blood Pressure : / mmHG Vent. Rate : 031 BPM Atrial Rate : 031 BPM P-R Int : 134 ms QRS Dur : 108 ms QT Int : 522 ms P-R-T Axes : 011 -34 002 degrees QTc Int : 374 ms Critical Test Result: Low HR Marked sinus bradycardia Left axis deviation Incomplete right bundle branch block Moderate voltage criteria for LVH, may be normal variant ( R in aVL , [place] product ) Abnormal ECG Confirmed by Pelon Valero ([id number]), digital editor MEGAN CARPIO ([id number]) on 03/08/2024 10:13:05 AM Referred By: ILA Confirmed By:Pelon Valero
[2024-03-07 22:13] LABS: Bedside Glucose 156 mg/dL (74-106)
--- NOTE | 2024-03-07 22:27 | EDS_ITS ---
HPI History of Present Illness Chief Complaint: Seizure Detail of Chief Complaint: Reportedly 2 seizures at the [facility]. Informant: patient and family (Sister at bedside) Onset/Context/Timing Onset: Today Context: Sudden Onset Timing: Intermittent Current Severity: Gone Maximum Severity: Moderate Narrative Narrative: 58-year-old female history of seizures, diabetes and COPD. Currently a resident at [facility]. Reportedly had 2 seizures this evening. Last seizure was about 2 months ago according to her sister at bedside. Denies recent illness. No fever no vomiting. She has had some mild dysuria for the last 1 to 2 weeks. Denies abdominal pain. Denies headache or head trauma. Prior similar symptoms: Yes Recent Illness/Hospitalization: No PFSH PFS Medical History Generalized weakness Recurrent falls Recurrent syncope Anxiety Depression COPD (chronic obstructive pulmonary disease) Migraines Multiple falls Diabetes mellitus, type 2 History of CVA (cerebrovascular accident) GERD (gastroesophageal reflux disease) Obesity Former tobacco use Seizure disorder Allergic rhinitis Chronic migraine Orthostasis HTN (hypertension) Psoriasis Hypercholesterolemia Home Medications ?Medication ?Instructions ?Recorded ?Last Taken ?Type albuterol sulfate 90 mcg/actuation 2 puff inhalation Q4H PRN Wheezing 09/03/22 09/04/23 History aerosol inhaler atorvastatin 80 mg tablet 80 mg PO QHS cholesterol 09/03/22 10/08/23 History oslhgwlwnj-anmckjkktaffe-iwccybei 1 tab PO Q6H PRN Headache 09/03/22 09/04/23 History 50 mg-325 mg-40 mg tablet diclofenac sodium 75 mg 75 mg PO BID PRN pain 09/03/22 09/04/23 History tablet,delayed release docusate sodium 100 mg capsule 100 mg PO BID CONSTIPATION 09/03/22 09/03/23 History ergocalciferol (vitamin D2) 1,250 50,000 unit PO MO vitamin 09/03/22 10/04/23 History mcg (50,000 unit) capsule flash glucose scanning reader 09/03/22 Unknown History (FreeStyle Es 2 Victor) flash glucose sensor (FreeStyle 09/03/22 Unknown History Es 2 Sensor kit) gabapentin 100 mg capsule 100 mg PO BID nerve pain 09/03/22 10/09/23 History gabapentin 800 mg tablet 800 mg PO QHS nerve pain 09/03/22 10/08/23 History glucagon 1 mg injection kit 1 mg IM PRN PRN hypoglycemia 09/03/22 Unknown History insulin syr/ndl U100 half shirley 0.5 09/03/22 Unknown History mL 31 gauge x 5/16 (Droplet Insulin Syringe (half unit)) omeprazole 40 mg capsule,delayed 40 mg PO DAILY GERD 09/03/22 10/09/23 History release promethazine 25 mg tablet 25 mg PO Q6H PRN PRN Nausea #12 11/08/22 09/04/23 Rx TABLETS dextromethorphan 20 mg-quinidine 1 cap PO BID DEPRESSION 02/06/23 10/09/23 History 10 mg capsule (Nuedexta) ubrogepant 100 mg tablet (Ubrelvy) 100 mg PO .COMPLEX PRN MIGRAINE 02/06/23 09/04/23 History duloxetine 60 mg capsule,delayed 60 mg PO BID mental health 05/31/23 10/09/23 History release insulin glargine 100 unit/mL (3 See Rx Instructions subcut 05/31/23 10/09/23 History mL) subcutaneous pen .COMPLEX diabetes furosemide 20 mg tablet (Lasix) 20 mg PO DAILY EDEMA 07/29/23 10/09/23 History semaglutide 0.25 mg or 0.5 mg (2 0.25 mg subcut QWEEK diabetes 07/29/23 10/06/23 History mg/3 mL) subcutaneous pen injector (Ozempic) tizanidine 4 mg tablet 4 mg PO Q8H PRN muscle spasticity 07/29/23 09/04/23 History galcanezumab-gnlm 120 mg/mL 120 mg subcut .COMPLEX migrane 09/04/23 10/03/23 History subcutaneous pen injector (Emgality Pen) insulin lispro 100 unit/mL 3 unit subcut .COMPLEX DIABETES 09/04/23 09/04/23 History subcutaneous solution meclizine 25 mg tablet 25 mg PO DAILY PRN vertigo 09/04/23 09/04/23 History midodrine 10 mg tablet 10 mg PO TID BP 09/04/23 10/09/23 History nystatin 100,000 unit/gram topical 1 applic topical BID RASH 09/04/23 10/09/23 History powder (Nyamyc) potassium chloride 10 mEq 20 meq PO DAILY SUPPLEMENT 09/04/23 10/09/23 History tablet,extended release topiramate 200 mg tablet 200 mg PO TID seizures 09/04/23 10/09/23 History ipratropium 0.5 mg-albuterol 3 mg 3 ml inhalation Q6H PRN shortness 09/10/23 Unknown History (2.5 mg base)/3 mL nebulization of breath or wheezing soln melatonin 5 mg capsule 12 mg PO QHS SLEEP 09/10/23 10/08/23 History lorazepam 0.5 mg tablet 0.5 mg PO QHS PRN Anxiety 10/09/23 Unknown History carbamazepine 200 mg tablet 200 mg PO 0900,1700 seizure 10/10/23 10/10/23 History (Tegretol) carbamazepine 200 mg tablet 300 mg PO QHS seizures 10/10/23 10/09/23 History (Tegretol) fluticasone furoate 200 1 inh inhalation DAILY copd 11/13/23 Unknown History mcg/actuation blister powder for inhalation (Arnuity Ellipta) midodrine 5 mg tablet 2.5 mg PO DAILY blood pressure 11/13/23 Unknown History cephalexin 500 mg capsule 500 mg PO BID #12 caps 11/15/23 Unknown Rx Allergy/AdvReac Type Severity Reaction Status Date / Time adhesive tape Allergy Intermediate Rash Verified 03/07/24 21:48 latex Allergy Rash Verified 03/07/24 21:48 levofloxacin (From Levaquin) Allergy Hives Verified 03/07/24 21:48 ondansetron (From Zofran) Allergy Hives Verified 03/07/24 21:48 nalbuphine (From Nubain) AdvReac Other Verified 03/07/24 21:48 Family History Father Cancer Mother Cancer Surgical History Hx of tubal ligation Hx of tonsillectomy Hx of cholecystectomy Social History household members: family housing: skilled nursing Smoking Status: Former smoker alcohol intake: never substance use type: does not use ROS ROS ED ROS Narrative Dysuria. Denies fever. Constitutional Constitutional ED: Denies chills or fever(s) Eyes Eyes: Denies blurry vision ENT ENT ED: Denies ear pain Cardiovascular Cardiovascular: Denies chest pain Respiratory/Chest Respiratory/Chest: Reports cough and sputum Gastrointestinal Gastrointestinal: Denies abdominal pain Genitourinary Genitourinary ED: Reports dysuria; Denies hematuria Musculoskeletal Musculoskeletal: Denies arthralgias or back pain Integumentary Denies abscess or Abrasions Neurologic Neurologic: Denies headache(s) Psychiatric Psychiatric: Denies anxiety Endocrine Endocrinology: Denies cold intolerance or heat intolerance Hematologic/Lymphatic Hematologic/Lymphatic: Reports none Allergic/Immunologic Allergic/Immunologic ED: Denies mouth swelling, tongue swelling or urticaria EXAM Physical Exam Narrative Exam Narrative: For 8-year-old female no acute distress she is bradycardic at 31 she has a history of bradycardia. She is also hypotensive at 93/58 which she tells me she runs low. Afebrile. Does not look septic or toxic. She is sitting upright in bed tolerating her low heart rate and low blood pressure well. Sisters at bedside. H EENT exam unremarkable. Moist use membranes. Neck nontender. Lungs clear. Heart bradycardic rate about 34 no murmur. Chest wall ribs nontender. Abdomen soft nontender. Moving all 4 extremities. Calves are nontender without edema. 5 out of 5 chairman president and chief executive officer strength. Dorsi plantarflexion intact. Neurologically she is awake and alert. Answering questions following commands. No focal motor deficits. Const Vital Signs: 03/07/24 21:49 03/07/24 22:48 03/07/24 23:00 Temperature 97.8 F Temperature Source Temporal Pulse Rate 31 L 50 L 51 L Respiratory Rate 12 13 14 Blood Pressure 93/58 L 136/70 H 136/70 H Blood Pressure Mean 69 92 92 Pulse Ox 94 99 99 Oxygen Delivery Method Room Air Room Air Room Air Positive well nourished and well developed; Negative for cachectic, contractures or unkempt General Appearance ED: well developed and NAD; Negative for unkempt, cachectic, contractures, cyanotic or diaphoretic Nutritional Appearance: Negative for cachectic HEENT Reports moist mucous membranes; Denies dry mucous membranes Negative for trauma or tenderness Mouth ED: No dry mucous membranes Mouth: No dry mucous membranes Eyes PERRL and EOMs intact bilaterally General Eye ED: Negative for pale conjunctiva Neck no lymphadenopathy, supple and no JVD General: Negative for tenderness Chest Wall inspection of chest normal and palpation of chest normal Resp normal respiratory effort and clear to auscultation bilaterally Effort and Inspection: Negative for retractions Auscultation: Negative for rales, rhonchi, wheezes or diminished lung sounds Cardio regular rate, regular rhythm, S1 normal heart sound, S2 normal heart sound and no murmurs Rate: Negative for bradycardia or tachycardic Rhythm: Negative for abnormal rhythm GI normal to inspection, nondistended, normoactive bowel sounds, non-tender, non- distended and no masses Inspection: Negative for abdominal distention Auscultation: normoactive bowel sounds Palpation: soft; Negative for tender, guarding, mass or rebound tenderness present Back/Spine no CVA tenderness General Back: Negative for CVA tenderness or other Cervical Spine: Negative for cervical spine tenderness Thoracic Spine / Upper Back: Negative for thoracic spinal tenderness or paraspinal muscle tenderness Lumbar Spine / Lower Back: Negative for lumbar spinal tenderness Extremity normal to inspection General Extremety ED: Negative for edema, tenderness or other findings General Extremity: Negative for edema or other findings Neuro oriented x3 and CN's II-XII intact bilaterally Sensorium / Orientation: alert; Negative for orientation impaired, lethargic or stuporous Motor Exam: strength 5/5 throughout; Negative for general weakness or strength abnormal Psych mental status grossly normal Appearance: Negative for unkempt Attitude: No agitated Mood & Affect: Negative for depressed, anxious or tearful Skin no rashes or lesions noted, no wounds and skin turgor normal General Skin Exam: Negative for jaundice Lesions: No lesion noted Rashes: No rashes noted Trauma: Negative for abrasion Wounds: Negative for wounds noted MDM MDM MDM Narrative Medical decision making narrative: 58-year-old with recurrent seizures x 2 with a history of seizures. Has a blood sugar of 156. She also was hypotensive and bradycardic which reportedly she has a history of bradycardia. She will undergo a workup. I do have an ? EKG that shows junctional rhythm at 47. Show given IV fluids to increase her blood pressure. Repeat exam patient is doing well. Current blood pressure is 136/70. Repeat was 120/62. Her current heart rate 51. She has had a history of bradycardia in the past she is actually been admitted for and worked up. An echocardiogram done in July of this year which showed an EF of 65%. I discussed with the patient and her sister her test results. She has a baseline anemia. Hemoglobin is 8.8. She has had no GI bleeding or black stool. She is on no blood thinners. She has had a hemoglobin 9.1 recently. They are comfortable with her going back to the extended care facility at the assisted living side. I will speak to the assisted living facility. History & Record Review Discussion w/independent historian: Patient and Family Additional record(s) reviewed:: Prior inpatient record, Prior outpatient record, Prior ED visit, Prior labs and No prior records Lab Data Attestation: I reviewed the patient's lab results. Lab results narrative: CBC she is awake and 10.7. H&H 8.8 and 29.1. Platelets 224. Electrolytes show gap 8. BUN of 24 creatinine 1.1. Glucose 166. Lactic acid is normal at 1.4. Liver enzymes are normal. Urinalysis shows no signs of infection. No nitrates. No bacteria. COVID-positive. Chest x-ray negative. Labs: Laboratory Results - last 24 hr 03/07/24 03/07/24 03/07/24 21:56 22:15 22:41 WBC 10.7 RBC 3.26 L Hgb 8.8 L Hct 29.1 L MCV 89.3 MCH 27.0 MCHC 30.2 L RDW Std Deviation 46.8 H RDW Coeff of He 14.7 H Plt Count 224 MPV 11.8 Immature Gran % (Auto) 1.700 H Neut % (Auto) 60.4 Lymph % (Auto) 30.3 [place] % (Auto) 7.0 Eos % (Auto) 0.2 Baso % (Auto) 0.4 Absolute Neuts (auto) 6.5 Absolute Lymphs (auto) 3.25 Nucleated RBC % 0 Sodium 140 Potassium 3.7 Chloride 110 H Carbon Dioxide 22.0 Anion Gap 8 BUN 24 H Creatinine 1.14 H Estim Creat Clear Calc 67.20 Est GFR (MDRD) Af Amer 63 Est GFR (MDRD) Non-Af 52 L BUN/Creatinine Ratio 21.1 H Glucose 166 H Lactic Acid 1.4 Calcium 8.6 Total Bilirubin < 0.10 L AST 46 H ALT 66 H Alkaline Phosphatase 152 H Total Protein 6.9 Albumin 3.3 Globulin 3.6 Albumin/Globulin Ratio 0.9 Urine Color Urine Clarity Urine pH Ur Specific [place] Urine Protein Urine Glucose (UA) Urine Ketones Urine Occult Blood Urine Nitrite Urine Bilirubin Urine Urobilinogen Ur Leukocyte Esterase Urine RBC Urine WBC Ur Squamous Epith Cells Urine Bacteria Urine Mucus POC Glucose 156 H 03/07/24 23:00 WBC RBC Hgb Hct MCV MCH MCHC RDW Std Deviation RDW Coeff of He Plt Count MPV Immature Gran % (Auto) Neut % (Auto) Lymph % (Auto) [place] % (Auto) Eos % (Auto) Baso % (Auto) Absolute Neuts (auto) Absolute Lymphs (auto) Nucleated RBC % Sodium Potassium Chloride Carbon Dioxide Anion Gap BUN Creatinine Estim Creat Clear Calc Est GFR (MDRD) Af Amer Est GFR (MDRD) Non-Af BUN/Creatinine Ratio Glucose Lactic Acid Calcium Total Bilirubin AST ALT Alkaline Phosphatase Total Protein Albumin Globulin Albumin/Globulin Ratio Urine Color Yellow Urine Clarity Clear Urine pH 7.0 Ur Specific [place] 1.010 Urine Protein 15 H Urine Glucose (UA) Normal Urine Ketones Negative Urine Occult Blood Negative Urine Nitrite Negative Urine Bilirubin Negative Urine Urobilinogen 1 H Ur Leukocyte Esterase 25 H Urine RBC 0 SEEN Urine WBC 0-5 SEEN Ur Squamous Epith Cells 5-10 SEEN Urine Bacteria 0 SEEN Urine Mucus 0 SEEN POC Glucose Radiography Chest X-Ray - ED: 2 View, Read by ED Physician, Normal, Heart, Lungs, Mediastinum, Bony Structures, No Acute Disease and Chronic Changes Rhythm Strip Rhythm Strip: Sinus bradycardia Rate: 31 Ectopy: None EKG Initial EKG: Attestation: I personally reviewed and interpreted this EKG as follows: Interpretation: No Acute Injury Pattern and Sinus Bradycardia Comments: Sinus bradycardia rate of 31. No acute signs of MD, ischemia or heart block. Prior EKG tracings: available for review Prior: Unchanged Discharge Plan Triage Chief Complaint: Seizure ED Provider: Yaakov Davalos Dx/Rx/DC Orders Clinical Impression: COVID-19 virus infection, Seizure Instructions: Human Coronaviruses, ED Seizure, Recurrent (Adult) Prescriptions: No Action atorvastatin 80 mg tablet 80 mg PO QHS Patient Comments: TAKE ONE TABLET BY MOUTH DAILY AT 9PM AT BEDTIME iwfisnofxu-sgurzzqsgrtyb-hdll 50-325-40 mg Tablet 1 tab PO Q6H PRN (Reason: Headache) glucagon 1 mg Kit 1 mg IM PRN PRN (Reason: hypoglycemia) omeprazole 40 mg capsule,delayed release(DR/EC) 40 mg PO DAILY Patient Comments: TAKE ONE CAPSULE BY MOUTH DAILY AT 9AM gabapentin 800 mg tablet 800 mg PO QHS Patient Comments: TAKE ONE TABLET BY MOUTH DAILY AT 9PM AT BEDTIME docusate sodium 100 mg Capsule 100 mg PO BID diclofenac sodium 75 mg tablet,delayed release (DR/EC) 75 mg PO BID PRN (Reason: pain) Patient Comments: TAKE ONE TABLET BY MOUTH TWICE DAILY NEEDED (VIAL) gabapentin 100 mg Capsule 100 mg PO BID Rx Instructions: MORNING AND NOON albuterol sulfate 90 mcg/actuation HFA aerosol inhaler 2 puff INHALATION Q4H PRN (Reason: Wheezing) Patient Comments: INHALE TWO PUFFS BY MOUTH DIRECTED EVERY 6 HOURS NEEDED FOR WHEEZING OR FOR SHORTNESS OF BREATH (BULK) (DME) FreeStyle Es 2 Sensor Kit MISCELLANEOUS Patient Comments: apply 1 SENSOR to back OF UPPER ARM REMOVE AND REPLACE every 14 d... (REFER TO PRESCRIPTION NOTES). (DME) FreeStyle Es 2 Victor Mis MISCELLANEOUS Patient Comments: USE CONTINUOUSLY TO MONITOR BLOOD SUGARS DAILY (DME) Droplet Insulin Syr(half unit) 0.5 mL 31 gauge x 5/16 syringe MISCELLANEOUS Patient Comments: USE TO INJECT INSULIN UNDER THE SKIN EVERY MEAL AND AT BEDTIME PER SLIDING SCALE ergocalciferol (vitamin D2) 1,250 mcg (50,000 unit) capsule 50,000 unit PO MO Patient Comments: TAKE 1 CAPSULE BY MOUTH EVERY WEDNESDAY AT 9AM Rx Instructions: takes on mondays promethazine 25 mg tablet 25 mg PO Q6H PRN PRN (Reason: Nausea) Qty: 12 0RF insulin glargine 100 unit/mL (3 mL) insulin pen See Rx Instructions SUBCUT .COMPLEX Rx Instructions: subcutaneously 36 units qam, 24 units qhs; duloxetine 60 mg capsule,delayed release(DR/EC) 60 mg PO BID Patient Comments: TAKE ONE CAPSULE BY MOUTH TWICE DAILY Nuedexta 20-10 mg capsule 1 cap PO BID Ubrelvy 100 mg tablet 100 mg PO .COMPLEX PRN (Reason: MIGRAINE) Rx Instructions: TAKE 1 TABLET BY MOUTH AT ONSET OF MIGRAINE. IF NO IMPROVEMENT WITHIN 2 HRS TAKE 1 TABLET. DO NOT EXCEED 2 TABS IN 24 HOURS furosemide [Lasix] 20 mg tablet 20 mg PO DAILY Ozempic 0.25 mg or 0.5 mg (2 mg/3 mL) pen injector 0.25 mg SUBCUT QWEEK Patient Comments: INJECT 0.25 MG SUBCUTANEOUSLY ONCE A WEEK Rx Instructions: WEDNESDAY tizanidine 4 mg tablet 4 mg PO Q8H PRN (Reason: muscle spasticity) Patient Comments: TAKE ONE TABLET BY MOUTH EVERY 8 HOURS NEEDED (VIAL) Emgality Pen 120 mg/mL pen injector 120 mg SUBCUT .COMPLEX Patient Comments: INJECT 1 ML (120MG TOTAL) UNDER THE SKIN EVERY 28 DAYS (BULK) on the Rx Instructions: 120 mg subcutaneously Q28D; insulin lispro 100 unit/mL solution 3 unit subcut .COMPLEX Rx Instructions: 3 units subcutaneously achs; INJECT PER SLIDING SCALE THREE TIMES DAILY FOLLOWS ONE UNIT IF BG LESS THAN 110, TWO UNITS FOR BG 111-150, FOUR UNITS FOR BG 151-200, SEVEN UNITS FOR BG 201-250, 10 UNITS FOR BG 251-300, 13 UNITS FOR BG 301-350, 16 UNITS FOR BG 351-400, CALL MD IF BG OVER 400 (MAX 48 UNITS PER DAY) meclizine 25 mg tablet 25 mg PO DAILY PRN Patient Comments: TAKE ONE TABLET BY MOUTH BID midodrine 10 mg tablet 10 mg PO TID Patient Comments: take 1 tablet by mouth three times a day potassium chloride 10 mEq tablet extended release 20 meq PO DAILY nystatin [Nyamyc] 100,000 unit/gram powder 1 applic TOPICAL BID Patient Comments: apply to affected area twice a day if needed topiramate 200 mg tablet 200 mg PO TID Patient Comments: TAKE ONE TABLET BY MOUTH TWICE DAILY (VIAL) ipratropium-albuterol 0.5 mg-3 mg(2.5 mg base)/3 mL solution for nebulization 3 ml inhalation Q6H PRN (Reason: shortness of breath or wheezing) melatonin 5 mg capsule 12 mg PO QHS lorazepam 0.5 mg tablet 0.5 mg PO QHS PRN carbamazepine [Tegretol] 200 mg tablet 200 mg PO 0900,1700 carbamazepine [Tegretol] 200 mg tablet 300 mg PO QHS Arnuity Ellipta 200 mcg/actuation blister with device 1 inh inhalation DAILY midodrine 5 mg tablet 2.5 mg PO DAILY Rx Instructions: hold if bp >130/90 cephalexin 500 mg capsule 500 mg PO BID Qty: 12 0RF Primary Care Provider: Wendy Sosa Referrals: Wendy Sosa MD [Primary Care Provider] - 3-5 Days if not improving Activity Restrictions/Additional Instructions: Continue her current medications. Plenty of fluids and rest. Hold blood pressure medication if blood pressure running below 110 on the higher number. The systolic number. Tylenol for any fever. Return if worse or has additional seizures. She is COVID-positive. Print Language: Occitan Disposition Disposition: Home, Self Care
[2024-03-07 22:37] LABS: Absolute Lymphocyte Count 3.25 X10^3/uL (0.83-4.51); Absolute Neutrophil Count 6.5 X10^3/uL (2.0-7.7); Basophil# 0.04 X10^3/uL; Basophil% 0.4 % (0-1); Eosinophil# 0.02 X10^3/uL; Eosinophils% 0.2 % (0-5); Hematocrit 29.1 % (37-47); Hemoglobin 8.8 g/dL (12.0-15.0); Lymphocyte # 3.25 X10^3/ul (0.83-4.51); Lymphocyte % 30.3 % (19-41); Mean Corp Hgb Conc 30.2 g/dL (32-36); Mean Corpuscular Volume 89.3 fL (81-99); Mean Platelet Vol. 11.8 fl (6.2-12.0); Monocyte# 0.75 X10^3/uL; NRBC Flagged by Analyzer 0 % (0-5); Neutrophil # 6.47 X10^3/uL (2.7-7.7); Neutrophil % 60.4 % (47-70); Platelet Count 224 K/mm3 (150-450); RBC Distribution Width CV 14.7 % (11.6-14.6); RBC Distribution Width SD 46.8 fl (35.1-43.9); Red Blood Count 3.26 M/mm3 (4.2-5.4); White Blood Count 10.7 K/mm3 (4.4-11.0)
[2024-03-07 22:48] VITALS: BP 136/70; PULSE 50; RESP 13; O2SAT 99
[2024-03-07 23:00] VITALS: BP 136/70; PULSE 51; RESP 14; O2SAT 99
[2024-03-07 23:02] LABS: ALB/GLOB Ratio 0.9 RATIO (0.9-2.4); AST(SGOT) 46 U/L (15-37); Alanine Aminotransfer ALT/SGPT 66 U/L (13-56); Albumin, Serum 3.3 g/dL (3.2-5.0); Alkaline Phosphatase 152 U/L (45-117); Anion Gap 8 (5-15); BUN 24 mg/dL (7-18); BUN/Creat Ratio 21.1 RATIO (10-20); Calcium,Total 8.6 mg/dL (8.5-10.1); Chloride 110 mmol/L (98-107); Creatinine, Serum 1.14 mg/dL (0.55-1.02); EST Glomerular Filtration Rate 52 mL/min (>60); Est Glom Filt Rate - Afr Amer 63 mL/min (>60); Globulin 3.6 g/dL (2.2-4.2); Glucose 166 mg/dL (74-106); Potassium 3.7 mmol/L (3.5-5.1); Protein, Total 6.9 g/dL (6.4-8.2); Sodium Level 140 mmol/L (136-145); Total Bilirubin < 0.10 mg/dL (0.20-1.00)
[2024-03-07 23:06] LABS: Bacteria 0 SEEN /hpf (None Seen); Mucous, Urine 0 SEEN /hpf (<or=2+); Red Blood Cells-Urine 0 SEEN /hpf (0-5)
[2024-03-07 23:10] LABS: Color, Urine Yellow (Yellow); Glucose, Dipstick Normal (Normal); Ketone-Dipstick Negative (Negative); Leukocyte Esterase-Dipstick 25 /ul (Negative); Nitrite-Dipstick Negative (Negative); Occult Blood-Urine Negative /ul (Negative); Protein-Dipstick 15 mg/dl (Negative); Urine Bilirubin Dipstick Negative (Negative); Urine Clarity Clear (Clear); Urine Urobilinogen 1 mg/dl (Normal)
[2024-03-07 23:13] LABS: Lactic Acid 1.4 mmol/L (0.4-1.9)
--- NOTE | 2024-03-07 23:14 | RAD_ITS ---
EXAM: XR CHEST, 2 VIEWS CLINICAL INDICATION: cough TECHNIQUE: Frontal and lateral views of the chest. COMPARISON: Previous chest radiographs of 11/12/2023 and 10/20/2023. FINDINGS: LUNGS AND PLEURAL SPACES: Unremarkable. No consolidation or edema. No pneumothorax. No effusion. HEART: Upper normal heart size with normal pulmonary vasculature. MEDIASTINUM: Stable mild elongation of the thoracic aorta. BONES/JOINTS: Unremarkable. No acute fracture. SOFT TISSUES: Upper abdominal surgical clips are present. RAD/Chest PA and Lateral IMPRESSION: No significant interval change. No radiographic evidence of acute cardiopulmonary disease. Electronically Signed: Jose Antonio Kwong MD at 23:50 EDT ,
[2024-03-07 23:20] LABS: Squamous Epithelial Cells - UA 5-10 SEEN /hpf (5-10); White Blood Cells 0-5 SEEN /hpf (0-5)
[2024-03-08 00:19] VITALS: BP 139/70; PULSE 54; RESP 16; TEMP 36.4; O2SAT 96
== END 2024-03-08 00:20 | disposition home or self-care (01) ==
PROVIDERS: Emergency Provider Emergency Medicine; PCP Internal Medicine; Visit Provider Emergency Medicine
DX: U07.1 COVID-19 (principal); J44.9 Chronic obstructive pulmonary disease, unspecified; R56.9 Unspecified convulsions; E11.9 Type 2 diabetes mellitus without complications; Z87.891 Personal history of nicotine dependence
CPT/HCPCS: 71046; 80053; 81001; 82962; 83605; 85025; 87631; 93005; 99285; P9612; A4216

== ENCOUNTER → 2024-03-14 05:00 | Outpatient (REF) | payer MEDICARE, MEDICAID, SELFPAY ==
[2024-03-14 09:36] LABS: Absolute Lymphocyte Count 1.85 X10^3/uL (0.83-4.51); Absolute Neutrophil Count 4.5 X10^3/uL (2.0-7.7); Basophil# 0.05 X10^3/uL; Basophil% 0.7 % (0-1); Eosinophil# 0.08 X10^3/uL; Eosinophils% 1.1 % (0-5); Hemoglobin 11.1 g/dL (12.0-15.0); Lymphocyte # 1.85 X10^3/ul (0.83-4.51); Lymphocyte % 26.2 % (19-41); Mean Corp Hgb Conc 28.5 g/dL (32-36); Mean Corpuscular Hgb 26.5 pg (27.0-32.0); Mean Corpuscular Volume 93.1 fL (81-99); Mean Platelet Vol. 12.2 fl (6.2-12.0); Monocyte# 0.51 X10^3/uL; Monocyte% 7.2 % (0-10); NRBC Flagged by Analyzer 0 % (0-5); Neutrophil # 4.53 X10^3/uL (2.7-7.7); Neutrophil % 64.4 % (47-70); Platelet Count 164 K/mm3 (150-450); RBC Distribution Width CV 15.2 % (11.6-14.6); Red Blood Count 4.19 M/mm3 (4.2-5.4); White Blood Count 7.1 K/mm3 (4.4-11.0)
[2024-03-14 10:13] LABS: Carbamazepine (Tegretol) 9.1 ug/mL (4.0-12.0)
[2024-03-14 10:48] LABS: Anion Gap 7 (5-15); BUN 12 mg/dL (7-18); Calcium,Total 8.9 mg/dL (8.5-10.1); Chloride 111 mmol/L (98-107); Creatinine, Serum 0.92 mg/dL (0.55-1.02); EST Glomerular Filtration Rate 67 mL/min (>60); Est Glom Filt Rate - Afr Amer 81 mL/min (>60); Glucose 109 mg/dL (74-106); Potassium 3.9 mmol/L (3.5-5.1); Sodium Level 135 mmol/L (136-145)
[2024-03-16 13:08] LABS: Topiramate 9.2 ug/mL (2.0-25.0)
== END ==
LOC: OLS.SWAL 05:00
PROVIDERS: PCP Internal Medicine; Visit Provider Internal Medicine
DX: E11.65 Type 2 diabetes mellitus with hyperglycemia (principal); J44.9 Chronic obstructive pulmonary disease, unspecified; G40.909 Epilepsy, unspecified, not intractable, without status epilepticus; I10 Essential (primary) hypertension
CPT/HCPCS: 36415; 80048; 80156; 80201; 85025; 86140

== ENCOUNTER → 2024-03-22 05:00 | Outpatient (REF) | payer MEDICARE, MEDICAID, SELFPAY ==
[2024-03-22 09:49] LABS: Absolute Lymphocyte Count 3.89 X10^3/uL (0.83-4.51); Absolute Neutrophil Count 10.3 X10^3/uL (2.0-7.7); Basophil# 0.08 X10^3/uL; Basophil% 0.5 % (0-1); Eosinophil# 0.15 X10^3/uL; Lymphocyte # 3.89 X10^3/ul (0.83-4.51); Lymphocyte % 25.2 % (19-41); Mean Corp Hgb Conc 29.3 g/dL (32-36); Mean Corpuscular Hgb 26.8 pg (27.0-32.0); Mean Corpuscular Volume 91.7 fL (81-99); Mean Platelet Vol. 11.4 fl (6.2-12.0); Monocyte# 0.89 X10^3/uL; Monocyte% 5.8 % (0-10); NRBC Flagged by Analyzer 0 % (0-5); Neutrophil # 10.33 X10^3/uL (2.7-7.7); Platelet Count 406 K/mm3 (150-450); RBC Distribution Width CV 14.9 % (11.6-14.6); RBC Distribution Width SD 50.1 fl (35.1-43.9); Red Blood Count 4.47 M/mm3 (4.2-5.4); White Blood Count 15.4 K/mm3 (4.4-11.0)
[2024-03-22 10:01] LABS: Anion Gap 13 (5-15); BUN 22 mg/dL (7-18); BUN/Creat Ratio 18.8 RATIO (10-20); CRP 7.55 mg/L (0.0-3.0); Calcium,Total 9.7 mg/dL (8.5-10.1); Chloride 104 mmol/L (98-107); Creatinine, Serum 1.17 mg/dL (0.55-1.02); EST Glomerular Filtration Rate 51 mL/min (>60); Est Glom Filt Rate - Afr Amer 61 mL/min (>60); Glucose 164 mg/dL (74-106); Sodium Level 136 mmol/L (136-145)
== END ==
LOC: OLS.SWAL 05:00
PROVIDERS: PCP Internal Medicine; Visit Provider Internal Medicine
DX: I10 Essential (primary) hypertension (principal); J44.9 Chronic obstructive pulmonary disease, unspecified; E11.65 Type 2 diabetes mellitus with hyperglycemia; G40.909 Epilepsy, unspecified, not intractable, without status epilepticus
CPT/HCPCS: 36415; 80048; 85025; 86140

== ENCOUNTER → 2024-05-02 | Outpatient (REF) | payer MEDICARE, MEDICAID, SELFPAY ==
[2024-05-03 08:30] LABS: Bacteria 0 SEEN /hpf (None Seen); Mucous, Urine 0 SEEN /hpf (<or=2+); Red Blood Cells-Urine 0 SEEN /hpf (0-5)
[2024-05-03 08:35] LABS: Color, Urine Yellow (Yellow); Glucose, Dipstick Normal (Normal); Ketone-Dipstick Negative (Negative); Leukocyte Esterase-Dipstick 25 /ul (Negative); Nitrite-Dipstick Negative (Negative); Occult Blood-Urine Negative /ul (Negative); Protein-Dipstick Negative (Negative); Urine Bilirubin Dipstick Negative (Negative); Urine Clarity Sl. Cloudy (Clear); Urine Urobilinogen Normal (Normal)
[2024-05-03 08:42] LABS: Squamous Epithelial Cells - UA 0-5 SEEN /hpf (5-10); White Blood Cells 0-5 SEEN /hpf (0-5)
== END ==
LOC: OLS.SWAL 18:45
PROVIDERS: PCP Internal Medicine; Visit Provider Internal Medicine
DX: N39.0 Urinary tract infection, site not specified (principal)
CPT/HCPCS: 81001; 87086; 87088; 87186

== ENCOUNTER 2024-05-05 14:46 | Emergency (ER) | payer MEDICARE, MEDICAID, SELFPAY ==
[2024-05-05 14:50] VITALS: BP 133/73; PULSE 76; RESP 16; TEMP 36.4; O2SAT 94; BMI 37.3
--- NOTE | 2024-05-05 15:39 | EKG12_ITS ---
Test Reason : WEAKNESS Blood Pressure : / mmHG Vent. Rate : 050 BPM Atrial Rate : 000 BPM P-R Int : 000 ms QRS Dur : 108 ms QT Int : 470 ms P-R-T Axes : 000 -43 049 degrees QTc Int : 428 ms Junctional rhythm Left axis deviation Incomplete right bundle branch block Moderate voltage criteria for LVH, may be normal variant ( R in aVL , [place] product ) Abnormal ECG Confirmed by ROB WHITE, PIHLLIP ([id number]), health editor MAHESH VASQUEZ ([id number]) on 05/08/2024 9:25:56 AM Referred By: Confirmed By:PHILLIP RIVAS MD
--- NOTE | 2024-05-05 15:40 | EDS_ITS ---
HPI History of Present Illness Chief Complaint: Weakness Informant: patient Narrative Narrative: Brought in by EMS from assisted living for generalized weakness and productive cough for 2 days. Reports wheezing at the facility. History of COPD. History of diabetes. States glucose up-and-down. Reports dysuria. Denies any falls in the last week. She ambulates with a cane and a rollator. No fevers or chills. She reports she has been at the assisted living for 3 months prior to that was living with her sister. [facility] Medical History Bradycardia Multiple sclerosis Demyelinating disease of central nervous system Epilepsy Generalized weakness Recurrent falls Recurrent syncope Anxiety Depression COPD (chronic obstructive pulmonary disease) Migraines Multiple falls Diabetes mellitus, type 2 History of CVA (cerebrovascular accident) GERD (gastroesophageal reflux disease) Obesity Former tobacco use Seizure disorder Allergic rhinitis Chronic migraine Orthostasis HTN (hypertension) Psoriasis Hypercholesterolemia Home Medications ?Medication ?Instructions ?Recorded ?Last Taken ?Type albuterol sulfate 90 mcg/actuation 2 puff inhalation Q4H PRN Wheezing 09/03/22 09/04/23 History aerosol inhaler atorvastatin 80 mg tablet 80 mg PO QHS cholesterol 09/03/22 10/08/23 History rojvtggjku-wcyvtmavlorvb-pikctgcz 1 tab PO Q6H PRN Headache 09/03/22 09/04/23 History 50 mg-325 mg-40 mg tablet diclofenac sodium 75 mg 75 mg PO BID PRN pain 09/03/22 09/04/23 History tablet,delayed release docusate sodium 100 mg capsule 100 mg PO BID CONSTIPATION 09/03/22 09/03/23 History ergocalciferol (vitamin D2) 1,250 50,000 unit PO MO vitamin 09/03/22 10/04/23 H istory mcg (50,000 unit) capsule flash glucose scanning reader 09/03/22 Unknown History (FreeStyle Es 2 [place]) flash glucose sensor (FreeStyle 09/03/22 Unknown History Es 2 Sensor kit) gabapentin 100 mg capsule 100 mg PO BID nerve pain 09/03/22 10/09/23 History gabapentin 800 mg tablet 800 mg PO QHS nerve pain 09/03/22 10/08/23 History glucagon 1 mg injection kit 1 mg IM PRN PRN hypoglycemia 09/03/22 Unknown History insulin syr/ndl U100 half shirley 0.5 02/23/23 Unknown History mL 31 gauge x 5/16 (Droplet Insulin Syringe (half unit)) omeprazole 40 mg capsule,delayed 40 mg PO DAILY GERD 09/03/22 10/09/23 History release promethazine 25 mg tablet 25 mg PO Q6H PRN PRN Nausea #12 11/08/22 09/04/23 Rx TABLETS dextromethorphan 20 mg-quinidine 1 cap PO BID DEPRESSION 02/06/23 10/09/23 History 10 mg capsule (Nuedexta) ubrogepant 100 mg tablet (Ubrelvy) 100 mg PO .COMPLEX PRN MIGRAINE 02/06/23 09/04/23 History duloxetine 60 mg capsule,delayed 60 mg PO BID mental health 05/31/23 10/09/23 History release insulin glargine 100 unit/mL (3 See Rx Instructions subcut 05/31/23 10/09/23 History mL) subcutaneous pen .COMPLEX diabetes furosemide 20 mg tablet (Lasix) 20 mg PO DAILY EDEMA 07/29/23 10/09/23 History semaglutide 0.25 mg or 0.5 mg (2 0.25 mg subcut QWEEK diabetes 07/29/23 10/06/23 History mg/3 mL) subcutaneous pen injector (Ozempic) tizanidine 4 mg tablet 4 mg PO Q8H PRN muscle spasticity 07/29/23 09/04/23 History galcanezumab-gnlm 120 mg/mL 120 mg subcut .COMPLEX migrane 09/04/23 10/03/23 History subcutaneous pen injector (Emgality Pen) insulin lispro 100 unit/mL 3 unit subcut .COMPLEX DIABETES 09/04/23 09/04/23 History subcutaneous solution meclizine 25 mg tablet 25 mg PO DAILY PRN vertigo 09/04/23 09/04/23 History midodrine 10 mg tablet 10 mg PO TID BP 09/04/23 10/09/23 History nystatin 100,000 unit/gram topical 1 applic topical BID RASH 09/04/23 10/09/23 History powder (Nyamyc) potassium chloride 10 mEq 20 meq PO DAILY SUPPLEMENT 09/04/23 10/09/23 History tablet,extended release topiramate 200 mg tablet 200 mg PO TID seizures 09/04/23 10/09/23 History ipratropium 0.5 mg-albuterol 3 mg 3 ml inhalation Q6H PRN shortness 09/10/23 Unknown History (2.5 mg base)/3 mL nebulization of breath or wheezing soln melatonin 5 mg capsule 12 mg PO QHS SLEEP 09/10/23 10/08/23 History lorazepam 0.5 mg tablet 0.5 mg PO QHS PRN Anxiety 10/09/23 Unknown History carbamazepine 200 mg tablet 200 mg PO 0900,1700 seizure 10/10/23 10/10/23 History (Tegretol) carbamazepine 200 mg tablet 300 mg PO QHS seizures 10/10/23 10/09/23 History (Tegretol) fluticasone furoate 200 1 inh inhalation DAILY copd 11/13/23 Unknown History mcg/actuation blister powder for inhalation (Arnuity Ellipta) midodrine 5 mg tablet 5 mg PO DAILY blood pressure 11/13/23 Unknown History cephalexin 500 mg capsule 500 mg PO BID #12 caps 11/15/23 Unknown Rx nitrofurantoin 100 mg PO Q12 #14 CAPSULES 05/05/24 Unknown Rx monohydrate/macrocrystals 100 mg capsule Allergy/AdvReac Type Severity Reaction Status Date / Time adhesive tape Allergy Intermediate Rash Verified 05/05/24 14:50 latex Allergy Rash Verified 05/05/24 14:50 levofloxacin (From Levaquin) Allergy Hives Verified 05/05/24 14:50 ondansetron (From Zofran) Allergy Hives Verified 05/05/24 14:50 nalbuphine (From Nubain) AdvReac Other Verified 05/05/24 14:50 Family History Father Cancer Mother Cancer Surgical History Hx of tubal ligation Hx of tonsillectomy Hx of cholecystectomy Social History household members: family housing: intermediate Smoking Status: Former smoker alcohol intake: never substance use type: does not use ROS ROS ED Constitutional Constitutional ED: Denies chills, fever(s) or sweats Eyes Eyes: Denies change in vision ENT ENT ED: Denies dysphagia or sore throat Cardiovascular Cardiovascular: Denies chest pain, leg edema, palpitations or racing heartbeat Respiratory/Chest Respiratory/Chest: Reports cough; Denies dyspnea or dyspnea on exertion Gastrointestinal Gastrointestinal: Denies abdominal pain, diarrhea, nausea or vomiting Genitourinary Genitourinary ED: Reports dysuria; Denies hematuria or urinary frequency Musculoskeletal Musculoskeletal: Denies back pain, extremity pain or neck pain Integumentary Denies rash or wounds Neurologic Neurologic: Reports weakness; Denies headache(s) or paresthesias EXAM Physical Exam Const Vital Signs: 05/05/24 14:50 05/05/24 16:46 05/05/24 18:00 Temperature 97.5 F L Temperature Source Oral Pulse Rate 76 44 L 49 L Respiratory Rate 16 17 12 Blood Pressure 133/73 H 140/65 H 175/113 H Blood Pressure Mean 93 90 133 Pulse Ox 94 99 96 Oxygen Delivery Method Room Air 05/05/24 18:51 05/05/24 20:00 05/05/24 22:00 Temperature 97.5 F L Temperature Source Pulse Rate 44 L 46 L 46 L Respiratory Rate 18 16 16 Blood Pressure 129/70 H 99/55 L 101/60 Blood Pressure Mean 89 69 73 Pulse Ox 97 95 93 Oxygen Delivery Method Room Air Room Air Positive well nourished and well developed General Appearance ED: well developed and NAD HEENT Reports moist mucous membranes normocephalic and atraumatic Eyes EOMs intact bilaterally and conjunctivae normal General Eye ED: Yes normal appearance of both eyes Neck no lymphadenopathy and supple General: Negative for tenderness Chest Wall Chest: Negative for tenderness Resp normal respiratory effort and normal air movement Effort and Inspection: symmetric chest movement; Negative for respiratory distress Cardio regular rate, regular rhythm and no murmurs Peripheral Pulses: pulses 2+ throughout GI normal to inspection, nondistended, normoactive bowel sounds and non-tender Palpation: Negative for guarding or rebound tenderness present Back/Spine no CVA tenderness and no thoracic nor lumbar tenderness Extremity normal to inspection General Extremety ED: Negative for edema or tenderness General Extremity: Negative for edema Neuro oriented x3 and no sensory deficits noted Sensorium / Orientation: awake and alert Skin no rashes or lesions noted and no wounds MDM MDM MDM Narrative Medical decision making narrative: Interventions / MDM: Differential diagnosis: Urinary tract infection, weakness Diagnosis considered but do not suspect: Pneumonia however chest x-ray negative. My EKG interpretation: Sinus first-degree AV block rate of 50, no ST or T wave changes. QTc 428. Reported junctional rhythm however noted small P waves V1 consistent with first-degree AV block. Interventricular delay noted. Imaging independently reviewed and interpreted by myself: 2 view chest x-ray: No acute process also read by radiology. External documents reviewed: N/A Test considered but not ordered:N/A ED course: Vital signs stable afebrile no respiratory distress. Pulse ox 94% room air on arrival. Generalized weakness new cough and dysuria. Will check labs urine chest x-ray. COVID, flu, RSV sent for further evaluation. EKG ordered. Chest x-ray negative for pneumonia. Labs stable creatinine 1.15 stable from previous. Urine positive for infection. COVID, influenza, RSV negative. Urine culture sent. Patient able to ambulate with no difficulties. She started on Macrobid antibiotic. Discharged home with continued antibiotics. Return precautions. All questions were answered. Re-evaluation: stable Disposition discussed with patient/family/significant other: Patient Case discussed with consulting clinician: N/A This note was generated with OneM[employer] dictation software. It may contain incorrect words, spelling, and punctuation that were not noted in checking the note before signing. Lab Data Attestation: I reviewed the patient's lab results. Labs: Laboratory Results - last 24 hr 05/05/24 05/05/24 15:49 15:55 WBC 9.9 RBC 3.88 L Hgb 10.8 L Hct 33.8 L MCV 87.1 MCH 27.8 MCHC 32.0 RDW Std Deviation 49.3 H RDW Coeff of He 15.6 H Plt Count 241 MPV 10.7 Immature Gran % (Auto) 0.500 Neut % (Auto) 74.5 H Lymph % (Auto) 17.1 L [place] % (Auto) 6.8 Eos % (Auto) 0.8 Baso % (Auto) 0.3 Absolute Neuts (auto) 7.4 Absolute Lymphs (auto) 1.69 Nucleated RBC % 0 Sodium 130 L Potassium 4.6 Chloride 101 Carbon Dioxide 21.0 Anion Gap 8 BUN 19 H Creatinine 1.15 H Estim Creat Clear Calc 66.03 Est GFR (MDRD) Af Amer 62 Est GFR (MDRD) Non-Af 52 L BUN/Creatinine Ratio 16.5 Glucose 194 H Calcium 8.6 Urine Color Emily Urine Clarity Sl. Cloudy Urine pH 6.5 Ur Specific [place] 1.015 Urine Protein 15 H Urine Glucose (UA) Normal Urine Ketones Negative Urine Occult Blood Negative Urine Nitrite Positive H Urine Bilirubin Negative Urine Urobilinogen Normal Ur Leukocyte Esterase 100 H Urine RBC 0 SEEN Urine WBC 5-10 SEEN Ur Squamous Epith Cells 0 SEEN Urine Bacteria 3+ Urine Mucus 0 SEEN Radiography Diagnostic Testing: Clinical Impression(s) from Imaging Studies Chest X-Ray 05/05/24 16:10 IMPRESSION: No acute radiographic abnormalities. Electronically Signed: Adam Blount MD at 16:20 EDT , Discharge Plan Triage Chief Complaint: Weakness ED Provider: Raudel Stoddard Dx/Rx/DC Orders Clinical Impression: UTI (urinary tract infection), Weakness, Upper respiratory infection, Hyponatremia Instructions: Urinary Tract Infections in Women, ED URI, Viral, No Abx (Adult) Prescriptions: New nitrofurantoin monohyd/m-cryst 100 mg capsule 100 mg PO Q12 Qty: 14 0RF No Action atorvastatin 80 mg tablet 80 mg PO QHS Patient Comments: TAKE ONE TABLET BY MOUTH DAILY AT 9PM AT BEDTIME gusoqvuygw-cfdxzfmzbsjja-xjgn 50-325-40 mg Tablet 1 tab PO Q6H PRN (Reason: Headache) glucagon 1 mg Kit 1 mg IM PRN PRN (Reason: hypoglycemia) omeprazole 40 mg capsule,delayed release(DR/EC) 40 mg PO DAILY Patient Comments: TAKE ONE CAPSULE BY MOUTH DAILY AT 9AM gabapentin 800 mg tablet 800 mg PO QHS Patient Comments: TAKE ONE TABLET BY MOUTH DAILY AT 9PM AT BEDTIME docusate sodium 100 mg Capsule 100 mg PO BID diclofenac sodium 75 mg tablet,delayed release (DR/EC) 75 mg PO BID PRN (Reason: pain) Patient Comments: TAKE ONE TABLET BY MOUTH TWICE DAILY NEEDED (VIAL) gabapentin 100 mg Capsule 100 mg PO BID Rx Instructions: MORNING AND NOON albuterol sulfate 90 mcg/actuation HFA aerosol inhaler 2 puff INHALATION Q4H PRN (Reason: Wheezing) Patient Comments: INHALE TWO PUFFS BY MOUTH DIRECTED EVERY 6 HOURS NEEDED FOR WHEEZING OR FOR SHORTNESS OF BREATH (BULK) (DME) FreeStyle Es 2 Sensor Kit MISCELLANEOUS Patient Comments: apply 1 SENSOR to back OF UPPER ARM REMOVE AND REPLACE every 14 d... (REFER TO PRESCRIPTION NOTES). (DME) FreeStyle Es 2 [place] Mis MISCELLANEOUS Patient Comments: USE CONTINUOUSLY TO MONITOR BLOOD SUGARS DAILY (DME) Droplet Insulin Syr(half unit) 0.5 mL 31 gauge x 5/16 syringe MISCELLANEOUS Patient Comments: USE TO INJECT INSULIN UNDER THE SKIN EVERY MEAL AND AT BEDTIME PER SLIDING SCALE ergocalciferol (vitamin D2) 1,250 mcg (50,000 unit) capsule 50,000 unit PO MO Patient Comments: TAKE 1 CAPSULE BY MOUTH EVERY WEDNESDAY AT 9AM Rx Instructions: takes on mondays promethazine 25 mg tablet 25 mg PO Q6H PRN PRN (Reason: Nausea) Qty: 12 0RF insulin glargine 100 unit/mL (3 mL) insulin pen See Rx Instructions SUBCUT .COMPLEX Rx Instructions: subcutaneously 36 units qam, 24 units qhs; duloxetine 60 mg capsule,delayed release(DR/EC) 60 mg PO BID Patient Comments: TAKE ONE CAPSULE BY MOUTH TWICE DAILY Nuedexta 20-10 mg capsule 1 cap PO BID Ubrelvy 100 mg tablet 100 mg PO .COMPLEX PRN (Reason: MIGRAINE) Rx Instructions: TAKE 1 TABLET BY MOUTH AT ONSET OF MIGRAINE. IF NO IMPROVEMENT WITHIN 2 HRS TAKE 1 TABLET. DO NOT EXCEED 2 TABS IN 24 HOURS furosemide [Lasix] 20 mg tablet 20 mg PO DAILY Ozempic 0.25 mg or 0.5 mg (2 mg/3 mL) pen injector 0.25 mg SUBCUT QWEEK Patient Comments: INJECT 0.25 MG SUBCUTANEOUSLY ONCE A WEEK Rx Instructions: WEDNESDAY tizanidine 4 mg tablet 4 mg PO Q8H PRN (Reason: muscle spasticity) Patient Comments: TAKE ONE TABLET BY MOUTH EVERY 8 HOURS NEEDED (VIAL) Emgality Pen 120 mg/mL pen injector 120 mg SUBCUT .COMPLEX Patient Comments: INJECT 1 ML (120MG TOTAL) UNDER THE SKIN EVERY 28 DAYS (BULK) on the Rx Instructions: 120 mg subcutaneously Q28D; insulin lispro 100 unit/mL solution 3 unit subcut .COMPLEX Rx Instructions: 3 units subcutaneously achs; INJECT PER SLIDING SCALE THREE TIMES DAILY FOLLOWS ONE UNIT IF BG LESS THAN 110, TWO UNITS FOR BG 111-150, FOUR UNITS FOR BG 151-200, SEVEN UNITS FOR BG 201-250, 10 UNITS FOR BG 251-300, 13 UNITS FOR BG 301-350, 16 UNITS FOR BG 351-400, CALL MD IF BG OVER 400 (MAX 48 UNITS PER DAY) meclizine 25 mg tablet 25 mg PO DAILY PRN Patient Comments: TAKE ONE TABLET BY MOUTH BID midodrine 10 mg tablet 10 mg PO TID Patient Comments: take 1 tablet by mouth three times a day potassium chloride 10 mEq tablet extended release 20 meq PO DAILY nystatin [Nyamyc] 100,000 unit/gram powder 1 applic TOPICAL BID Patient Comments: apply to affected area twice a day if needed topiramate 200 mg tablet 200 mg PO TID Patient Comments: TAKE ONE TABLET BY MOUTH TWICE DAILY (VIAL) ipratropium-albuterol 0.5 mg-3 mg(2.5 mg base)/3 mL solution for nebulization 3 ml inhalation Q6H PRN (Reason: shortness of breath or wheezing) melatonin 5 mg capsule 12 mg PO QHS lorazepam 0.5 mg tablet 0.5 mg PO QHS PRN carbamazepine [Tegretol] 200 mg tablet 200 mg PO 0900,1700 carbamazepine [Tegretol] 200 mg tablet 300 mg PO QHS Arnuity Ellipta 200 mcg/actuation blister with device 1 inh inhalation DAILY midodrine 5 mg tablet 5 mg PO DAILY Rx Instructions: hold if bp >130/90 cephalexin 500 mg capsule 500 mg PO BID Qty: 12 0RF Primary Care Provider: Wendy Sosa Referrals: Wendy Sosa MD [Primary Care Provider] - 1 Week Activity Restrictions/Additional Instructions: Urine with infection. Normal white count. Creatinine stable at 1.15. Sodium 130. COVID, influenza, RSV negative. Chest x-ray negative. Take and finish antibiotic as prescribed. Follow-up with your doctor. You develop worsening symptoms, return to the ED for reevaluation. Print Language: Pashto Disposition Disposition: Home, Self Care
[2024-05-05 16:01] LABS: Absolute Lymphocyte Count 1.69 X10^3/uL (0.83-4.51); Absolute Neutrophil Count 7.4 X10^3/uL (2.0-7.7); Basophil# 0.03 X10^3/uL; Basophil% 0.3 % (0-1); Eosinophil# 0.08 X10^3/uL; Eosinophils% 0.8 % (0-5); Hematocrit 33.8 % (37-47); Hemoglobin 10.8 g/dL (12.0-15.0); Lymphocyte # 1.69 X10^3/ul (0.83-4.51); Lymphocyte % 17.1 % (19-41); Mean Corpuscular Hgb 27.8 pg (27.0-32.0); Mean Corpuscular Volume 87.1 fL (81-99); Mean Platelet Vol. 10.7 fl (6.2-12.0); Monocyte# 0.67 X10^3/uL; Monocyte% 6.8 % (0-10); NRBC Flagged by Analyzer 0 % (0-5); Neutrophil # 7.38 X10^3/uL (2.7-7.7); Neutrophil % 74.5 % (47-70); Platelet Count 241 K/mm3 (150-450); RBC Distribution Width CV 15.6 % (11.6-14.6); RBC Distribution Width SD 49.3 fl (35.1-43.9); Red Blood Count 3.88 M/mm3 (4.2-5.4); White Blood Count 9.9 K/mm3 (4.4-11.0)
[2024-05-05 16:08] LABS: Mucous, Urine 0 SEEN /hpf (<or=2+); Red Blood Cells-Urine 0 SEEN /hpf (0-5); Squamous Epithelial Cells - UA 0 SEEN /hpf (5-10)
--- NOTE | 2024-05-05 16:10 | RAD_ITS ---
INDICATION: cough EXAMINATION/TECHNIQUE: X-RAY - XR Chest 2 Views COMPARISON: 03/07/2024. FINDINGS: The lungs are clear. The cardiomediastinal silhouette is unremarkable. No pleural effusion or pneumothorax. No acute osseous abnormalities. RAD/Chest PA and Lateral IMPRESSION: No acute radiographic abnormalities. Electronically Signed: Adam Blount MD at 16:20 EDT ,
[2024-05-05 16:14] LABS: Color, Urine Amber (Yellow); Glucose, Dipstick Normal (Normal); Ketone-Dipstick Negative (Negative); Leukocyte Esterase-Dipstick 100 /ul (Negative); Nitrite-Dipstick Positive (Negative); Occult Blood-Urine Negative /ul (Negative); Protein-Dipstick 15 mg/dl (Negative); Specific Gravity, Urine 1.015 (1.002-1.030); Urine Bilirubin Dipstick Negative (Negative); Urine Clarity Sl. Cloudy (Clear); Urine Urobilinogen Normal (Normal); Urine pH 6.5 (5.0 - 8.0)
[2024-05-05 16:33] LABS: Anion Gap 8 (5-15); BUN 19 mg/dL (7-18); BUN/Creat Ratio 16.5 RATIO (10-20); Calcium,Total 8.6 mg/dL (8.5-10.1); Chloride 101 mmol/L (98-107); Creatinine, Serum 1.15 mg/dL (0.55-1.02); EST Glomerular Filtration Rate 52 mL/min (>60); Est Glom Filt Rate - Afr Amer 62 mL/min (>60); Estimated Creatinine Clearance 66.03 ml/min; Glucose 194 mg/dL (74-106); Potassium 4.6 mmol/L (3.5-5.1); Sodium Level 130 mmol/L (136-145)
[2024-05-05 16:41] LABS: Bacteria 3+ /hpf (None Seen); White Blood Cells 5-10 SEEN /hpf (0-5)
[2024-05-05 16:46] VITALS: BP 140/65; PULSE 44; RESP 17; O2SAT 99
[2024-05-05 18:00] VITALS: BP 175/113; PULSE 49; RESP 12; O2SAT 96
[2024-05-05] MEDS: Nitrofurantoin Macrocrystals 100 MG Capsule PO (18:49)
[2024-05-05 18:51] VITALS: BP 129/70; PULSE 44; RESP 18; TEMP 36.4; O2SAT 97
--- NOTE | 2024-05-05 19:43 | ED.RN ---
THIS RN ATTEMPTED TO CALL REPORT AND A NURSE ANSWERED AND STATED i DONT HAVE TIME TO TAKE REPORT, I HAVE MEDS I NEED TO PASS AND A NEW ADMIT. tHIS RN STATED I TRIED TO CALL REPORT AND DID NOT GET AN ANSWER. THE RN HUNG UP.
--- NOTE | 2024-05-05 19:45 | ED.RN ---
THIS RN LEFT A VOICEMAIL FOR RANI DONIS.
[2024-05-05 20:00] VITALS: BP 99/55; PULSE 46; RESP 16; O2SAT 95
[2024-05-05 22:00] VITALS: BP 101/60; PULSE 46; RESP 16; O2SAT 93
== END 2024-05-05 22:52 | disposition home or self-care (01) ==
PROVIDERS: Emergency Provider Emergency Medicine; PCP Internal Medicine; Visit Provider Emergency Medicine
DX: N39.0 Urinary tract infection, site not specified (principal); G35 Multiple sclerosis; J44.9 Chronic obstructive pulmonary disease, unspecified; G40.909 Epilepsy, unspecified, not intractable, without status epilepticus; E11.9 Type 2 diabetes mellitus without complications; Z79.4 Long term (current) use of insulin; R53.1 Weakness; E87.1 Hypo-osmolality and hyponatremia; J06.9 Acute upper respiratory infection, unspecified; I10 Essential (primary) hypertension; I44.0 Atrioventricular block, first degree; E78.00 Pure hypercholesterolemia, unspecified; E66.9 Obesity, unspecified; K21.9 Gastro-esophageal reflux disease without esophagitis; F41.9 Anxiety disorder, unspecified; F32.A Depression, unspecified; L40.9 Psoriasis, unspecified; G43.709 Chronic migraine without aura, not intractable, without status migrainosus; Z86.73 Personal history of transient ischemic attack (TIA), and cerebral infarction without residual deficits; Z90.49 Acquired absence of other specified parts of digestive tract; Z79.899 Other long term (current) drug therapy; Z91.81 History of falling
CPT/HCPCS: 71046; 80048; 81001; 85025; 87086; 87088; 87186; 87631; 93005; 99285; P9612; A4216

== ENCOUNTER → 2024-05-08 | Outpatient (REF) | payer MEDICARE, MEDICAID, SELFPAY ==
[2024-05-08 08:21] LABS: Hemoglobin A1c 7.4 % (3.8-5.6)
== END ==
LOC: OLS.SWAL 04:00
PROVIDERS: PCP Internal Medicine; Visit Provider Internal Medicine
DX: E11.9 Type 2 diabetes mellitus without complications (principal)
CPT/HCPCS: 36415; 83036

== ENCOUNTER → 2024-05-15 | Outpatient (REF) | payer MEDICARE, MEDICAID, SELFPAY ==
[2024-05-15 10:10] LABS: Anion Gap 8 (5-15); BUN 21 mg/dL (7-18); BUN/Creat Ratio 22.8 RATIO (10-20); Calcium,Total 8.6 mg/dL (8.5-10.1); Chloride 106 mmol/L (98-107); Creatinine, Serum 0.92 mg/dL (0.55-1.02); EST Glomerular Filtration Rate 66 mL/min (>60); Est Glom Filt Rate - Afr Amer 80 mL/min (>60); Glucose 98 mg/dL (74-106); Potassium 3.9 mmol/L (3.5-5.1); Sodium Level 134 mmol/L (136-145)
== END ==
LOC: OLS.SWAL 04:00
PROVIDERS: PCP Internal Medicine; Referring Provider Internal Medicine; Visit Provider Internal Medicine
DX: E87.1 Hypo-osmolality and hyponatremia (principal)
CPT/HCPCS: 36415; 80048

== ENCOUNTER → 2024-07-19 | Outpatient (REF) | payer MEDICARE, MEDICAID, SELFPAY ==
[2024-07-19 08:07] LABS: Absolute Lymphocyte Count 2.08 X10^3/uL (0.83-4.51); Absolute Neutrophil Count 7.5 X10^3/uL (2.0-7.7); Basophil# 0.05 X10^3/uL; Basophil% 0.5 % (0-1); Eosinophils% 0.9 % (0-5); Hematocrit 38.7 % (37-47); Hemoglobin 11.9 g/dL (12.0-15.0); Lymphocyte # 2.08 X10^3/ul (0.83-4.51); Lymphocyte % 19.7 % (19-41); Mean Corp Hgb Conc 30.7 g/dL (32-36); Mean Corpuscular Hgb 28.3 pg (27.0-32.0); Mean Corpuscular Volume 91.9 fL (81-99); Mean Platelet Vol. 10.8 fl (6.2-12.0); Monocyte# 0.73 X10^3/uL; Monocyte% 6.9 % (0-10); NRBC Flagged by Analyzer 0 % (0-5); Neutrophil # 7.53 X10^3/uL (2.7-7.7); Neutrophil % 71.5 % (47-70); Platelet Count 282 K/mm3 (150-450); RBC Distribution Width CV 16.1 % (11.6-14.6); RBC Distribution Width SD 52.6 fl (35.1-43.9); Red Blood Count 4.21 M/mm3 (4.2-5.4); White Blood Count 10.5 K/mm3 (4.4-11.0)
[2024-07-19 08:18] LABS: ALB/GLOB Ratio 1.1 RATIO (0.9-2.4); AST(SGOT) 17 U/L (15-37); Alanine Aminotransfer ALT/SGPT 29 U/L (13-56); Albumin, Serum 3.9 g/dL (3.2-5.0); Alkaline Phosphatase 131 U/L (45-117); Anion Gap 8 (5-15); BUN 17 mg/dL (7-18); Calcium,Total 8.7 mg/dL (8.5-10.1); Chloride 108 mmol/L (98-107); Creatinine, Serum 0.94 mg/dL (0.55-1.02); EST Glomerular Filtration Rate 65 mL/min (>60); Est Glom Filt Rate - Afr Amer 78 mL/min (>60); Globulin 3.7 g/dL (2.2-4.2); Glucose 135 mg/dL (74-106); Potassium 3.8 mmol/L (3.5-5.1); Protein, Total 7.6 g/dL (6.4-8.2); Sodium Level 140 mmol/L (136-145)
[2024-07-19 08:21] LABS: Hemoglobin A1c 7.3 % (3.8-5.6)
== END ==
LOC: OLS.SWAL 04:00
PROVIDERS: PCP Internal Medicine; Referring Provider Internal Medicine; Visit Provider Internal Medicine
DX: I10 Essential (primary) hypertension (principal); E11.40 Type 2 diabetes mellitus with diabetic neuropathy, unspecified
CPT/HCPCS: 36415; 80053; 83036; 85025

== ENCOUNTER → 2024-08-01 | Outpatient (CLI) | payer MEDICARE, MEDICAID, SELFPAY | END | disposition home or self-care (01) | LOC: MTLAB 16:11 | PROVIDERS: PCP Internal Medicine; Referring Provider Psychiatry & Neurology Neurology; Visit Provider Psychiatry & Neurology Neurology | DX: G40.909 Epilepsy, unspecified, not intractable, without status epilepticus (principal) ==

== ENCOUNTER → 2024-08-03 | Outpatient (CLI) | payer MEDICARE, MEDICAID, SELFPAY ==
[2024-08-03 12:26] LABS: Vitamin B12 570 pg/mL (211-911)
[2024-08-03 12:32] LABS: Hematocrit 33.2 % (37-47); Hemoglobin 10.1 g/dL (12.0-15.0); Mean Corp Hgb Conc 30.4 g/dL (32-36); Mean Corpuscular Hgb 28.5 pg (27.0-32.0); Mean Corpuscular Volume 93.5 fL (81-99); Mean Platelet Vol. 11.6 fl (6.2-12.0); Platelet Count 251 K/mm3 (150-450); RBC Distribution Width CV 16.4 % (11.6-14.6); RBC Distribution Width SD 56.1 fl (35.1-43.9); Red Blood Count 3.55 M/mm3 (4.2-5.4); White Blood Count 11.2 K/mm3 (4.4-11.0)
[2024-08-03 12:50] LABS: ALB/GLOB Ratio 0.9 RATIO (0.9-2.4); AST(SGOT) 20 U/L (15-37); Alanine Aminotransfer ALT/SGPT 24 U/L (13-56); Albumin, Serum 3.4 g/dL (3.2-5.0); Alkaline Phosphatase 115 U/L (45-117); Anion Gap 7 (5-15); BUN 25 mg/dL (7-18); BUN/Creat Ratio 20.8 RATIO (10-20); Calcium,Total 8.9 mg/dL (8.5-10.1); Chloride 110 mmol/L (98-107); EST Glomerular Filtration Rate 49 mL/min (>60); Est Glom Filt Rate - Afr Amer 59 mL/min (>60); Globulin 3.7 g/dL (2.2-4.2); Glucose 62 mg/dL (74-106); Potassium 4.9 mmol/L (3.5-5.1); Protein, Total 7.1 g/dL (6.4-8.2); Sodium Level 138 mmol/L (136-145)
[2024-08-03 15:49] LABS: Carbamazepine (Tegretol) 8.4 ug/mL (4.0-12.0)
[2024-08-11 16:08] LABS: Free Kappa Light Chains 25.6 mg/L (3.3-19.4); Topiramate 11.4 ug/mL (2.0-25.0); Vitamin B1, Thiamine 127.8 nmol/L (66.5-200.0)
== END | disposition home or self-care (01) ==
LOC: MTRAD 10:15
PROVIDERS: PCP Internal Medicine; Referring Provider Psychiatry & Neurology Neurology; Visit Provider Psychiatry & Neurology Neurology
DX: E11.42 Type 2 diabetes mellitus with diabetic polyneuropathy (principal); G40.909 Epilepsy, unspecified, not intractable, without status epilepticus
CPT/HCPCS: 36415; 80053; 80156; 80201; 82140; 82607; 82746; 83883; 84425; 84443; 85027

== ENCOUNTER → 2024-08-07 | Outpatient (CLI) | payer MEDICARE, MEDICAID, SELFPAY ==
--- NOTE | 2024-08-07 12:11 | RAD_ITS ---
STUDY: X-RAY - LUMBAR SPINE REASON FOR EXAM: Female, 58 years old. DDD TECHNIQUE: AP and lateral view(s) of the lumbar spine were obtained. COMPARISON: November 07, 2022 FINDINGS: Normal lumbar lordosis. There is no substantial scoliosis. There is a normal alignment of the vertebrae. No evidence for acute fracture or subluxation.. There is narrowing of L1-2, L2-3 and L3-4 disc spaces with mild endplate spurring. Postop change status post cholecystectomy There is been slight interval progression of the degenerative changes since earlier study RAD/Lumbar Spine 2 or 3 Views IMPRESSION: Moderate spondylosis. No acute fracture or other significant bony pathology. Electronically Signed: Tha Elizondo MD at 16:53 EST ,
== END | disposition home or self-care (01) ==
PROVIDERS: PCP Internal Medicine; Referring Provider Anesthesiology Pain Medicine; Visit Provider Anesthesiology Pain Medicine
DX: M47.816 Spondylosis without myelopathy or radiculopathy, lumbar region (principal)
CPT/HCPCS: 72100

== ENCOUNTER 2024-08-19 15:39 | Emergency (ER) | payer MEDICARE, MEDICAID, SELFPAY ==
[2024-08-19 15:44] VITALS: BP 109/48; PULSE 40; RESP 16; TEMP 36.7; O2SAT 100; BMI 36.1
[2024-08-19 15:49] VITALS: O2SAT 100
--- NOTE | 2024-08-19 15:55 | RAD_ITS ---
PROCEDURE: TIBIA FIBULA 2 VIEWS REASON FOR EXAM: Pain TECHNIQUE: Right tib-fib x-ray two views COMPARISON: None. FINDINGS: RIGHT TIBIA / FIBULA: No fracture. No suspicious bone lesion. Normal alignment at the knee and ankle. Soft tissues are unremarkable. RAD/Tibia & Fibula 2 Views IMPRESSION: NEGATIVE TIBIAS AND FIBULAS Reading Location: [facility]
--- NOTE | 2024-08-19 15:55 | RAD_ITS ---
PROCEDURE: RIBS UNI MIN 3V W/PA CHEST REASON FOR EXAM: Pain TECHNIQUE: Frontal and bilateral oblique views of the bilateral ribs. COMPARISON: None. FINDINGS: Minimally displaced posterolateral right 8th, 7th, 6th rib fractures with no obvious underlying pneumothorax. RAD/Ribs Uni Min 3V w/PA Chest IMPRESSION: As above. [facility]
[2024-08-19] MEDS: HYDROcodone Bitartrate/Apap 5/325 Tablet PO (16:00)
--- NOTE | 2024-08-19 16:13 | ED.VIS.FALL ---
HPI <CLEMENTE Grant - Last Filed: 08/19/24 20:04> HPI - Fall History of Present Illness Chief Complaint: Fall Narrative Narrative: Patient presenting today with pain to her right proximal fibula and right lateral ribs after a mechanical fall this morning. She tried to ambulate and lost her balance, falling onto her right side and hitting her right leg against the ground. She denies hitting her head or any LOC. She denies any other injury. She does have a history of multiple sclerosis and is in a assisted living facility. [facility] <CLEMENTE Grant - Last Filed: 08/19/24 20:04> [facility] Medical History Bradycardia Multiple sclerosis Demyelinating disease of central nervous system Epilepsy Generalized weakness Recurrent falls Recurrent syncope Anxiety Depression COPD (chronic obstructive pulmonary disease) Migraines Multiple falls Diabetes mellitus, type 2 History of CVA (cerebrovascular accident) GERD (gastroesophageal reflux disease) Obesity Former tobacco use Seizure disorder Allergic rhinitis Chronic migraine Orthostasis HTN (hypertension) Psoriasis Hypercholesterolemia Home Medications ?Medication ?Instructions ?Recorded ?Last Taken ?Type albuterol sulfate 90 mcg/actuation 2 puff inhalation Q4H PRN Wheezing 09/03/22 09/04/23 History aerosol inhaler atorvastatin 80 mg tablet 80 mg PO QHS cholesterol 09/03/22 10/08/23 History diclofenac sodium 75 mg 75 mg PO BID PRN pain 09/03/22 09/04/23 History tablet,delayed release docusate sodium 100 mg capsule 100 mg PO BID CONSTIPATION 09/03/22 09/03/23 History flash glucose scanning reader 09/03/22 Unknown History (FreeStyle Es 2 [place]) flash glucose sensor (FreeStyle 09/03/22 Unknown History Es 2 Sensor kit) gabapentin 800 mg tablet 800 mg PO QHS nerve pain 09/03/22 10/08/23 History insulin syr/ndl U100 half shirley 0.5 09/03/22 Unknown History mL 31 gauge x 5/16 (Droplet Insulin Syringe (half unit)) omeprazole 40 mg capsule,delayed 40 mg PO DAILY GERD 09/03/22 10/09/23 History release promethazine 25 mg tablet 25 mg PO Q6H PRN PRN Nausea #12 11/08/22 09/04/23 Rx TABLETS dextromethorphan 20 mg-quinidine 1 cap PO BID DEPRESSION 02/06/23 10/09/23 History 10 mg capsule (Nuedexta) ubrogepant 100 mg tablet (Ubrelvy) 100 mg PO .COMPLEX PRN MIGRAINE 02/06/23 09/04/23 History furosemide 20 mg tablet (Lasix) 20 mg PO DAILY EDEMA 07/29/23 10/09/23 History semaglutide 0.25 mg or 0.5 mg (2 0.25 mg subcut QWEEK diabetes 07/29/23 10/06/23 History mg/3 mL) subcutaneous pen injector (Ozempic) galcanezumab-gnlm 120 mg/mL 120 mg subcut .COMPLEX migrane 09/04/23 10/03/23 History subcutaneous pen injector (Emgality Pen) insulin lispro 100 unit/mL 3 unit subcut .COMPLEX DIABETES 09/04/23 09/04/23 History subcutaneous solution meclizine 25 mg tablet 25 mg PO DAILY PRN vertigo 09/04/23 09/04/23 History nystatin 100,000 unit/gram topical 1 applic topical BID RASH 09/04/23 10/09/23 History powder (Nyamyc) topiramate 200 mg tablet 200 mg PO TID 09/04/23 10/09/23 History ipratropium 0.5 mg-albuterol 3 mg 3 ml inhalation Q6H PRN shortness 09/10/23 Unknown History (2.5 mg base)/3 mL nebulization of breath or wheezing soln lorazepam 0.5 mg tablet 0.5 mg PO QHS PRN Anxiety 10/09/23 Unknown History carbamazepine 200 mg tablet 200 mg PO 0900,1700 seizure 10/10/23 10/10/23 History (Tegretol) carbamazepine 200 mg tablet 300 mg PO QHS seizures 10/10/23 10/09/23 History (Tegretol) fluticasone furoate 200 1 inh inhalation DAILY copd 11/13/23 Unknown History mcg/actuation blister powder for inhalation (Arnuity Ellipta) Lactobacillus rhamnosus GG 10 1 cap PO QDAY 05/09/24 Unknown History billion cell capsule (Culturelle) acetaminophen 500 mg capsule 1,000 mg PO Q6H PRN 05/09/24 Unknown History aluminum-magnesium hydroxide 225 30 ml PO Q4H PRN 05/09/24 Unknown History mg-200 mg/5 mL oral suspension ascorbic acid (vitamin C) 500 mg 500 mg PO QDAY 05/09/24 Unknown History tablet benzocaine 15 mg-menthol 2.6 mg 1 nasreen mucous membrane Q2H PRN 05/09/24 Unknown History lozenges (Cepacol Sore Throat (benzocaine-menthol)) cephalexin 250 mg capsule 250 mg PO QHS 05/09/24 Unknown History cranberry fruit 450 mg tablet 450 mg PO TID 05/09/24 Unknown History duloxetine 60 mg capsule,delayed 60 mg PO QDAY mental health 05/09/24 Unknown History release estradiol 0.01% (0.1 mg/gram) 1 g vaginal 2XW 05/09/24 Unknown History vaginal cream guaifenesin 100 mg/5 mL oral liquid 200 mg PO Q4H PRN 05/09/24 Unknown History ixekizumab 80 mg/mL subcutaneous 80 mg subcut Q4W 05/09/24 Unknown History auto-injector (Perlegen Sciencestz Autoinjector) loperamide 2 mg tablet 2 mg PO Q12H PRN 05/09/24 Unknown History magnesium hydroxide 400 mg/5 mL 30 ml PO QDAY PRN 05/09/24 Unknown History oral suspension (Milk of Magnesia) melatonin 12 mg tablet 12 mg PO QHS 05/09/24 Unknown History midodrine 5 mg tablet 5 mg PO TID blood pressure 05/09/24 Unknown History polyethylene glycol 3350 17 4 g PO QDAY PRN 05/09/24 Unknown History gram/dose oral powder (Miralax) potassium chloride 10 mEq 40 meq PO DAILY SUPPLEMENT 05/09/24 Unknown History tablet,extended release triamcinolone acetonide 0.1 % 1 applic topical QDAY 05/09/24 Unknown History topical cream cetirizine 10 mg tablet (Zyrtec) 10 mg PO QDAY 08/01/24 Unknown History ergocalciferol (vitamin D2) 1,250 50,000 unit PO QWEEK vitamin 08/01/24 Unknown History mcg (50,000 unit) capsule insulin glargine 100 unit/mL (3 See Rx Instructions subcut 08/01/24 Unknown History mL) subcutaneous pen .COMPLEX diabetes tizanidine 2 mg tablet 1 mg PO Q8H PRN 08/01/24 Unknown History gabapentin 300 mg capsule 300 mg PO BID #60 caps 08/02/24 Unknown Rx onabotulinumtoxinA 100 unit 200 unit IM ONCE #2 ea 08/02/24 Unknown Rx solution for injection (Botox) levocarnitine 330 mg tablet 330 mg PO BID #60 tabs 08/03/24 Unknown Rx ibuprofen 600 mg tablet 600 mg PO Q6H PRN PRN pain #20 08/19/24 Unknown Rx TABLETS ibuprofen 600 mg tablet 600 mg PO Q6H PRN PRN pain #20 08/19/24 Unknown Rx TABLETS Allergy/AdvReac Type Severity Reaction Status Date / Time adhesive tape Allergy Intermediate Rash Verified 08/19/24 15:53 latex Allergy Rash Verified 08/19/24 15:53 levofloxacin (From Levaquin) Allergy Hives Verified 08/19/24 15:53 ondansetron (From Zofran) Allergy Hives Verified 08/19/24 15:53 nalbuphine (From Nubain) AdvReac Other Verified 08/19/24 15:53 Family History Father Cancer Mother Cancer Surgical History Hx of tubal ligation Hx of tonsillectomy Hx of cholecystectomy Social History household members: family housing: fdc Smoking Status: Former smoker alcohol intake: never substance use type: does not use ROS <CLEMENTE Grant - Last Filed: 08/19/24 20:04> ROS ED Constitutional Constitutional ED: Denies chills or fever(s) Cardiovascular Cardiovascular: Denies chest pain Respiratory/Chest Respiratory/Chest: Denies dyspnea Gastrointestinal Gastrointestinal: Denies abdominal pain, nausea or vomiting Musculoskeletal Musculoskeletal: Reports arthralgias; Denies myalgias or neck pain Integumentary Denies Abrasions Neurologic Neurologic: Denies paresthesias or weakness EXAM <CLEMENTE Grant - Last Filed: 08/19/24 20:04> Physical Exam Const Vital Signs: 08/19/24 15:44 08/19/24 15:49 08/19/24 17:18 Temperature 98.1 F 98.5 F Temperature Source Oral Pulse Rate 40 L 46 L Respiratory Rate 16 16 Respiratory Effort Normal Non-Labored Respiratory Depth Normal Respiratory Pattern Normal Blood Pressure 109/48 L 104/48 L Blood Pressure Mean 68 66 Pulse Ox 100 100 97 Oxygen Delivery Method Room Air Room Air Positive well nourished, well developed and no apparent distress General Appearance ED: well developed HEENT Reports normocephalic and head/scalp atraumatic Mouth ED: Yes moist mucous membranes normal Eyes PERRL and EOMs intact bilaterally Neck full ROM and supple Chest Wall inspection of chest normal Resp normal respiratory effort and clear to auscultation bilaterally Resp Narrative: Follow-up the right lateral lower rib cage, no crepitus, no bruising Cardio regular rate and regular rhythm GI soft to palpation, non-tender, non-distended and no masses Back/Spine normal ROM and normal to inspection Extremity Extremity Narrative: Hematoma to the right proximal so, full range of motion to the right knee with no joint effusion, no pain to palpation to the right knee. Extensor mechanism intact. Right DP pulse 2+, good cap refill, sensation intact. Neuro oriented x3, CN's II-XII intact bilaterally, moves all extremities, no focal motor deficits and no sensory deficits noted Sensorium / Orientation: awake and alert Psych mental status grossly normal and thought process normal Skin no rashes or lesions noted and no wounds <Dr. Paolo Godwin MD - Last Filed: 08/19/24 23:25> Physical Exam Const Vital Signs: 08/19/24 15:44 08/19/24 15:49 08/19/24 17:18 Temperature 98.1 F 98.5 F Temperature Source Oral Pulse Rate 40 L 46 L Respiratory Rate 16 16 Respiratory Effort Normal Non-Labored Respiratory Depth Normal Respiratory Pattern Normal Blood Pressure 109/48 L 104/48 L Blood Pressure Mean 68 66 Pulse Ox 100 100 97 Oxygen Delivery Method Room Air Room Air MDM <CLEMENTE Grant - Last Filed: 08/19/24 20:04> [facility] Narrative Medical decision making narrative: Patient presenting today with pain to her right lateral rib cage and right proximal fibula after mechanical fall occurred this morning. She denies hitting her head or losing consciousness. X-rays will be obtained of the right tibia/fibula and right ribs. Patient given [place] for pain. X-ray of the right tibia/fibula is negative. The radiologist is reading the right rib films as fractures to the right 6th through 8th ribs. No pneumothorax. The attending interpretation of the chest x-ray is negative for fracture. Her oxygen saturation here is 100% on room air. She is in no respiratory distress. She will be given an incentive spirometer with instructions on how to use this. She did recently have a [place] prescription filled at the end of July. I will give her an additional prescription for ibuprofen. I recommended she follow-up with her PCP. She will be discharged home in stable condition. I have personally performed a face to face assessment of the patient and have reviewed the FLYNN Note. I performed a substantive portion of the visit including all aspects of the following. My sexton findings include: History is remarkable for mechanical fall. Patient states she was helping her fianc? at 1 AM. She fell. She injured her right leg and complains of right rib pain. She denies shortness of breath difficulty breathing. She denies hematemesis, melena medic easier. She denies hematuria. Exam is vital signs are remarkable for blood pressure 109/48. Heart rate is in the 40s. Review of her medications indicates she is not on a beta-shereen or clonidine which can cause bradycardia through central mechanism. HEENT exam is unremarkable. Patient has no discomfort A-P pressure of the sternum. There is no crepitus subcutaneous air. Lungs are clear to auscultation with symmetric breath sounds. Heart is regular. Rate is normal. There is no murmur, gallop or rub. Abdomen is soft nontender with no hepatosplenomegaly. Examination of the right leg reveals a hematoma anterior proximal third with pain outpatient over the tibia. Patient able to dorsi and plantarflex her foot. There is no pain the patient over the lateral medial malleolus. There is no pain the patient of the foot. Medical Decision Making x-ray of the ribs were obtained to evaluate for fracture, pneumothorax hemothorax. None was noted. X-ray of the leg was obtained to evaluate for fracture. None was noted. Other additions or changes: [None] Radiography Diagnostic Testing: Clinical Impression(s) from Imaging Studies Ribs w/Chest X-Ray 08/19/24 15:55 IMPRESSION: As above. [facility] Tib[facility]/Fibula [facility]-Ray 08/19/24 15:55 IMPRESSION: NEGATIVE TIBIAS AND FIBULAS Reading Location: [facility] <Dr. Paolo Godwin MD - Last Filed: 08/19/24 23:25> [facility] MDM Narrative Medical decision making narrative: Patient presenting today with pain to her right lateral rib cage and right proximal fibula after mechanical fall occurred this morning. She denies hitting her head or losing consciousness. X-rays will be obtained of the right tibia/fibula and right ribs. Patient given [place] for pain. X-ray of the right tibia/fibula is negative. The radiologist is reading the right rib films as fractures to the right 6th through 8th ribs. No pneumothorax. The attending interpretation of the chest x-ray is negative for fracture. Her oxygen saturation here is 100% on room air. She is in no respiratory distress. She will be given an incentive spirometer with instructions on how to use this. She did recently have a [place] prescription filled at the end of July. I will give her an additional prescription for ibuprofen. I recommended she follow-up with her PCP. She will be discharged home in stable condition. I have personally performed a face to face assessment of the patient and have reviewed the FLYNN Note. I performed a substantive portion of the visit including all aspects of the following. My sexton findings include: History is remarkable for mechanical fall. Patient states she was helping her fianc? at 1 AM. She fell. She injured her right leg and complains of right rib pain. She denies shortness of breath difficulty breathing. She denies hematemesis, melena medic easier. She denies hematuria. Exam is vital signs are remarkable for blood pressure 109/48. Heart rate is in the 40s. Review of her medications indicates she is not on a beta-shereen or clonidine which can cause bradycardia through central mechanism. HEENT exam is unremarkable. Patient has no discomfort A-P pressure of the sternum. There is no crepitus subcutaneous air. Lungs are clear to auscultation with symmetric breath sounds. Heart is regular. Rate is normal. There is no murmur, gallop or rub. Abdomen is soft nontender with no hepatosplenomegaly. Examination of the right leg reveals a hematoma anterior proximal third with pain outpatient over the tibia. Patient able to dorsi and plantarflex her foot. There is no pain the patient over the lateral medial malleolus. There is no pain the patient of the foot. Medical Decision Making x-ray of the ribs were obtained to evaluate for fracture, pneumothorax hemothorax. None was noted. X-ray of the leg was obtained to evaluate for fracture. None was noted. Other additions or changes: The radiology report was read. I had Dr. Julisa Lorenz can look at the x-rays as well. He agrees there is no evidence of acute fracture. There is evidence of prior fracture involving rib 5 and 6. Radiography Chest X-Ray - ED: 2 View (2 view x-ray of the right tibia and fibula are negative for fracture,. There is some soft tissue swelling noted anteriorly proximal right leg. The knee normal. There is no effusion. There is no evidence of subluxation.) and Read by ED Physician (5 view x-ray of the chest with rib detail reveals no fracture, pneumothorax or hemothorax. Cardiac silhouette and size normal.) Diagnostic Testing: Clinical Impression(s) from Imaging Studies Ribs w/Chest X-Ray 08/19/24 15:55 IMPRESSION: As above. Reading Location: [facility] Tibia/Fibula X-Ray 08/19/24 15:55 IMPRESSION: NEGATIVE TIBIAS AND FIBULAS Reading Location: [facility] Discharge Plan Triage Chief Complaint: Fall ED Midlevel Provider: Meeta Cash ED Provider: Paolo Godwin Dx/Rx/DC Orders Clinical Impression: Fall, Contusion of rib on right side, Contusion of right lower leg Instructions: ED Contusion, Lower Extremity, ED Bruise, Rib Prescriptions: New ibuprofen 600 mg tablet 600 mg PO Q6H PRN PRN (Reason: pain) Qty: 20 0RF ibuprofen 600 mg tablet 600 mg PO Q6H PRN PRN (Reason: pain) Qty: 20 0RF No Action aluminum-magnesium hydroxide 225-200 mg/5 mL suspension 30 ml PO Q4H PRN Cepacol Sore Throat (monae-men) 15-2.6 mg lozenge 1 nasreen mucous membrane Q2H PRN cephalexin 250 mg capsule 250 mg PO QHS cranberry fruit 450 mg tablet 450 mg PO TID Rx Instructions: administer with meals Culturelle 10 billion cell capsule 1 cap PO QDAY estradiol 0.01 % (0.1 mg/gram) cream 1 g vaginal 2XW Rx Instructions: 10% cream guaifenesin 100 mg/5 mL liquid 200 mg PO Q4H PRN loperamide 2 mg tablet 2 mg PO Q12H PRN melatonin 12 mg tablet 12 mg PO QHS magnesium hydroxide [Milk of Magnesia] 400 mg/5 mL suspension 30 ml PO QDAY PRN polyethylene glycol 3350 [Miralax] 17 gram/dose powder 4 g PO QDAY PRN Taltz Autoinjector 80 mg/mL auto-injector 80 mg subcut Q4W triamcinolone acetonide 0.1 % cream 1 applic topical QDAY acetaminophen 500 mg capsule 1,000 mg PO Q6H PRN ascorbic acid (vitamin C) 500 mg tablet 500 mg PO QDAY cetirizine [Zyrtec] 10 mg tablet 10 mg PO QDAY tizanidine 2 mg tablet 1 mg PO Q8H PRN gabapentin 300 mg capsule 300 mg PO BID Qty: 60 3RF Rx Instructions: 30 day supply. RYAN: [id number] Patient is to continue gabapentin 800mg nightly. Discontinue gabapentin 100mg twice daily. Botox 100 unit recon soln 200 unit IM ONCE Qty: 2 0RF levocarnitine 330 mg tablet 330 mg PO BID Qty: 60 3RF Rx Instructions: must administer with a meal/food atorvastatin 80 mg tablet 80 mg PO QHS Patient Comments: TAKE ONE TABLET BY MOUTH DAILY AT 9PM AT BEDTIME omeprazole 40 mg capsule,delayed release(DR/EC) 40 mg PO DAILY Patient Comments: TAKE ONE CAPSULE BY MOUTH DAILY AT 9AM gabapentin 800 mg tablet 800 mg PO QHS Patient Comments: TAKE ONE TABLET BY MOUTH DAILY AT 9PM AT BEDTIME docusate sodium 100 mg Capsule 100 mg PO BID diclofenac sodium 75 mg tablet,delayed release (DR/EC) 75 mg PO BID PRN (Reason: pain) Patient Comments: TAKE ONE TABLET BY MOUTH TWICE DAILY NEEDED (VIAL) albuterol sulfate 90 mcg/actuation HFA aerosol inhaler 2 puff INHALATION Q4H PRN (Reason: Wheezing) Patient Comments: INHALE TWO PUFFS BY MOUTH DIRECTED EVERY 6 HOURS NEEDED FOR WHEEZING OR FOR SHORTNESS OF BREATH (BULK) (DME) FreeStyle Es 2 Sensor Kit MISCELLANEOUS Patient Comments: apply 1 SENSOR to back OF UPPER ARM REMOVE AND REPLACE every 14 d... (REFER TO PRESCRIPTION NOTES). (DME) FreeStyle Es 2 [place] Mis MISCELLANEOUS Patient Comments: USE CONTINUOUSLY TO MONITOR BLOOD SUGARS DAILY (DME) Droplet Insulin Syr(half unit) 0.5 mL 31 gauge x 5/16 syringe MISCELLANEOUS Patient Comments: USE TO INJECT INSULIN UNDER THE SKIN EVERY MEAL AND AT BEDTIME PER SLIDING SCALE ergocalciferol (vitamin D2) 1,250 mcg (50,000 unit) capsule 50,000 unit PO QWEEK Rx Instructions: takes on Wednesday promethazine 25 mg tablet 25 mg PO Q6H PRN PRN (Reason: Nausea) Qty: 12 0RF duloxetine 60 mg capsule,delayed release(DR/EC) 60 mg PO QDAY Patient Comments: TAKE ONE CAPSULE BY MOUTH TWICE DAILY insulin glargine 100 unit/mL (3 mL) insulin pen See Rx Instructions SUBCUT .COMPLEX Rx Instructions: subcutaneously 30 units qam Nuedexta 20-10 mg capsule 1 cap PO BID Ubrelvy 100 mg tablet 100 mg PO .COMPLEX PRN (Reason: MIGRAINE) Rx Instructions: TAKE 1 TABLET BY MOUTH AT ONSET OF MIGRAINE. IF NO IMPROVEMENT WITHIN 2 HRS TAKE 1 TABLET. DO NOT EXCEED 2 TABS IN 24 HOURS furosemide [Lasix] 20 mg tablet 20 mg PO DAILY Ozempic 0.25 mg or 0.5 mg (2 mg/3 mL) pen injector 0.25 mg SUBCUT QWEEK Patient Comments: INJECT 0.25 MG SUBCUTANEOUSLY ONCE A WEEK Rx Instructions: WEDNESDAY Emgality Pen 120 mg/mL pen injector 120 mg SUBCUT .COMPLEX Patient Comments: INJECT 1 ML (120MG TOTAL) UNDER THE SKIN EVERY 28 DAYS (BULK) on the Rx Instructions: 120 mg subcutaneously Q28D; insulin lispro 100 unit/mL solution 3 unit subcut .COMPLEX Rx Instructions: 3 units subcutaneously achs; INJECT PER SLIDING SCALE THREE TIMES DAILY FOLLOWS ONE UNIT IF BG LESS THAN 110, TWO UNITS FOR BG 111-150, FOUR UNITS FOR BG 151-200, SEVEN UNITS FOR BG 201-250, 10 UNITS FOR BG 251-300, 13 UNITS FOR BG 301-350, 16 UNITS FOR BG 351-400, CALL MD IF BG OVER 400 (MAX 48 UNITS PER DAY) meclizine 25 mg tablet 25 mg PO DAILY PRN Patient Comments: TAKE ONE TABLET BY MOUTH BID nystatin [Nyamyc] 100,000 unit/gram powder 1 applic TOPICAL BID Patient Comments: apply to affected area twice a day if needed topiramate 200 mg tablet 200 mg PO TID ipratropium-albuterol 0.5 mg-3 mg(2.5 mg base)/3 mL solution for nebulization 3 ml inhalation Q6H PRN (Reason: shortness of breath or wheezing) potassium chloride 10 mEq tablet extended release 40 meq PO DAILY lorazepam 0.5 mg tablet 0.5 mg PO QHS PRN carbamazepine [Tegretol] 200 mg tablet 200 mg PO 0900,1700 carbamazepine [Tegretol] 200 mg tablet 300 mg PO QHS Arnuity Ellipta 200 mcg/actuation blister with device 1 inh inhalation DAILY midodrine 5 mg tablet 5 mg PO TID Rx Instructions: hold if bp >130/80 Primary Care Provider: Wendy Sosa Referrals: Wendy Sosa MD [Primary Care Provider] - 5-7 Days Activity Restrictions/Additional Instructions: Follow-up with your PCP, alternate Tylenol and ibuprofen as needed for your pain. Print Language: Wolof Disposition Disposition: Assisted Living Discharge Location: [facility] Discharge Date/Time: 08/19/24 17:53
[2024-08-19 17:18] VITALS: BP 104/48; PULSE 46; RESP 16; TEMP 36.9; O2SAT 97
--- NOTE | 2024-08-19 17:33 | ED.RN ---
multiple calls made to [facility] to inform of patient discharge. spoke with pts sister. informed no fractures. physicians in ED did not feel she has new rib fx. meal ordered for pt.
== END 2024-08-19 17:53 | disposition home or self-care (01) ==
PROVIDERS: Emergency Provider Emergency Medicine; PCP Internal Medicine; Visit Provider Emergency Medicine
DX: S80.11XA Contusion of right lower leg, initial encounter (principal); G35 Multiple sclerosis; J44.9 Chronic obstructive pulmonary disease, unspecified; G40.909 Epilepsy, unspecified, not intractable, without status epilepticus; E11.9 Type 2 diabetes mellitus without complications; Z79.4 Long term (current) use of insulin; S20.211A Contusion of right front wall of thorax, initial encounter; W01.0XXA Fall on same level from slipping, tripping and stumbling without subsequent striking against object, initial encounter; G43.709 Chronic migraine without aura, not intractable, without status migrainosus; I10 Essential (primary) hypertension; F41.9 Anxiety disorder, unspecified; F32.A Depression, unspecified; K21.9 Gastro-esophageal reflux disease without esophagitis; L40.9 Psoriasis, unspecified; E78.00 Pure hypercholesterolemia, unspecified; Z86.73 Personal history of transient ischemic attack (TIA), and cerebral infarction without residual deficits; Z79.899 Other long term (current) drug therapy
CPT/HCPCS: 71101; 73590; 99284

== ENCOUNTER 2024-09-04 12:18 | Outpatient (CLI) | payer MEDICARE, MEDICAID, SELFPAY ==
--- NOTE | 2024-09-04 12:40 | RAD_ITS ---
EXAM: XR Lumbosacral Spine, 2 or 3 Views CLINICAL INDICATION: TECHNIQUE: Frontal and lateral views of the lumbar spine and sacrum. COMPARISON: No relevant prior studies available. FINDINGS: VERTEBRAE: Multilevel mild endplate degenerative changes of the lumbar spine. Mild facet arthropathy of L4-S1. Normal alignment. No acute fracture. SACRUM/COCCYX: Unremarkable as visualized. No acute fracture. DISC SPACES: No acute findings. No significant narrowing. SOFT TISSUES: Unremarkable. RAD/Lumbar Spine 2 or 3 Views IMPRESSION: No acute fracture. Reading Location[facility]
--- NOTE | 2024-09-04 12:40 | RAD_ITS ---
EXAM: XR Thoracic Spine, 2 Views CLINICAL INDICATION: TECHNIQUE: Frontal and lateral views of the thoracic spine. COMPARISON: No relevant prior studies available. FINDINGS: VERTEBRAE: Unremarkable. No acute fracture. Normal alignment. DISC SPACES: No acute findings. No significant narrowing. SOFT TISSUES: Unremarkable. RAD/Thoracic Spine 2 Views IMPRESSION: No acute fracture. Reading Location: [facility]
== END 2024-09-04 23:59 | disposition home or self-care (01) ==
LOC: RAD 12:19
PROVIDERS: PCP Internal Medicine; Referring Provider Anesthesiology Pain Medicine; Visit Provider Anesthesiology Pain Medicine
DX: M46.97 Unspecified inflammatory spondylopathy, lumbosacral region (principal); W19.XXXA Unspecified fall, initial encounter
CPT/HCPCS: 72070; 72100

== ENCOUNTER 2024-09-11 13:41 | Inpatient (IN) | payer MEDICARE, MEDICAID, SELFPAY ==
[2024-09-11] VITALS (29 sets, daily range): BP systolic 90–157; BP diastolic 38–140; PULSE 32–83; RESP 8–18; TEMP 36.6–37.2; O2SAT 92–100; BMI 31.0; BMI 33.0
--- NOTE | 2024-09-11 14:50 | EX.ED.DYSGE1 ---
HPI History of Present Illness Chief Complaint: Alt LOC [facility] Medical History Bradycardia Multiple sclerosis Demyelinating disease of central nervous system Epilepsy Generalized weakness Recurrent falls Recurrent syncope Anxiety Depression COPD (chronic obstructive pulmonary disease) Migraines Multiple falls Diabetes mellitus, type 2 History of CVA (cerebrovascular accident) GERD (gastroesophageal reflux disease) Obesity Former tobacco use Seizure disorder Allergic rhinitis Chronic migraine Orthostasis HTN (hypertension) Psoriasis Hypercholesterolemia Home Medications ?Medication ?Instructions ?Recorded ?Last Taken ?Type albuterol sulfate 90 mcg/actuation 2 puff inhalation Q4H PRN Wheezing 09/03/22 09/04/23 History aerosol inhaler atorvastatin 80 mg tablet 80 mg PO QHS cholesterol 09/03/22 10/08/23 History diclofenac sodium 75 mg 75 mg PO BID PRN pain 09/03/22 09/04/23 History tablet,delayed release docusate sodium 100 mg capsule 100 mg PO BID CONSTIPATION 09/03/22 09/03/23 History flash glucose scanning reader 09/03/22 Unknown History (FreeStyle Es 2 Sumpter) flash glucose sensor (FreeStyle 09/03/22 Unknown History Es 2 Sensor kit) gabapentin 800 mg tablet 800 mg PO QHS nerve pain 09/03/22 10/08/23 History insulin syr/ndl U100 half shirley 0.5 09/03/22 Unknown History mL 31 gauge x 5/16 (Droplet Insulin Syringe (half unit)) omeprazole 40 mg capsule,delayed 40 mg PO DAILY GERD 09/03/22 10/09/23 History release promethazine 25 mg tablet 25 mg PO Q6H PRN PRN Nausea #12 11/08/22 09/04/23 Rx TABLETS dextromethorphan 20 mg-quinidine 1 cap PO BID DEPRESSION 02/06/23 10/09/23 History 10 mg capsule (Nuedexta) ubrogepant 100 mg tablet (Ubrelvy) 100 mg PO .COMPLEX PRN MIGRAINE 02/06/23 09/04/23 History furosemide 20 mg tablet (Lasix) 20 mg PO DAILY EDEMA 07/29/23 10/09/23 History semaglutide 0.25 mg or 0.5 mg (2 0.25 mg subcut QWEEK diabetes 07/29/23 10/06/23 History mg/3 mL) subcutaneous pen injector (Ozempic) galcanezumab-gnlm 120 mg/mL 120 mg subcut .COMPLEX migrane 09/04/23 10/03/23 History subcutaneous pen injector (Emgality Pen) insulin lispro 100 unit/mL 3 unit subcut .COMPLEX DIABETES 09/04/23 09/04/23 History subcutaneous solution meclizine 25 mg tablet 25 mg PO DAILY PRN vertigo 09/04/23 09/04/23 History nystatin 100,000 unit/gram topical 1 applic topical BID RASH 09/04/23 10/09/23 History powder (Nyamyc) topiramate 200 mg tablet 200 mg PO TID see pcp 09/04/23 10/09/23 History ipratropium 0.5 mg-albuterol 3 mg 3 ml inhalation Q6H PRN shortness 09/10/23 Unknown History (2.5 mg base)/3 mL nebulization of breath or wheezing soln lorazepam 0.5 mg tablet 0.5 mg PO QHS PRN Anxiety 10/09/23 Unknown History carbamazepine 200 mg tablet 200 mg PO 0900,1700 seizure 10/10/23 10/10/23 History (Tegretol) carbamazepine 200 mg tablet 300 mg PO QHS seizures 10/10/23 10/09/23 History (Tegretol) fluticasone furoate 200 1 inh inhalation DAILY copd 11/13/23 Unknown History mcg/actuation blister powder for inhalation (Arnuity Ellipta) Lactobacillus rhamnosus GG 10 1 cap PO QDAY see pcp 05/09/24 Unknown History billion cell capsule (Culturelle) acetaminophen 500 mg capsule 1,000 mg PO Q6H PRN 05/09/24 Unknown History aluminum-magnesium hydroxide 225 30 ml PO Q4H PRN gi distress 05/09/24 Unknown History mg-200 mg/5 mL oral suspension ascorbic acid (vitamin C) 500 mg 500 mg PO QDAY see pcp 05/09/24 Unknown History tablet benzocaine 15 mg-menthol 2.6 mg 1 nasreen mucous membrane Q2H PRN 05/09/24 Unknown History lozenges (Cepacol Sore Throat (benzocaine-menthol)) cephalexin 250 mg capsule 250 mg PO QHS recurrent UTI 05/09/24 Unknown History cranberry fruit 450 mg tablet 450 mg PO TID see pcp 05/09/24 Unknown History duloxetine 60 mg capsule,delayed 60 mg PO QDAY mental health 05/09/24 Unknown History release estradiol 0.01% (0.1 mg/gram) 1 g vaginal 2XW see pcp 05/09/24 Unknown History vaginal cream guaifenesin 100 mg/5 mL oral liquid 200 mg PO Q4H PRN see pcp 05/09/24 Unknown History ixekizumab 80 mg/mL subcutaneous 80 mg subcut Q4W 05/09/24 Unknown History auto-injector (Taltz Autoinjector) loperamide 2 mg tablet 2 mg PO Q12H PRN see pcp 05/09/24 Unknown History magnesium hydroxide 400 mg/5 mL 30 ml PO QDAY PRN 05/09/24 Unknown History oral suspension (Milk of Magnesia) melatonin 12 mg tablet 12 mg PO QHS see pcp 05/09/24 Unknown History midodrine 5 mg tablet 5 mg PO TID blood pressure 05/09/24 Unknown History polyethylene glycol 3350 17 4 g PO QDAY PRN 05/09/24 Unknown History gram/dose oral powder (Miralax) potassium chloride 10 mEq 40 meq PO DAILY SUPPLEMENT 05/09/24 Unknown History tablet,extended release triamcinolone acetonide 0.1 % 1 applic topical QDAY rash 05/09/24 Unknown History topical cream cetirizine 10 mg tablet (Zyrtec) 10 mg PO QDAY 08/01/24 Unknown History ergocalciferol (vitamin D2) 1,250 50,000 unit PO QWEEK vitamin 08/01/24 Unknown History mcg (50,000 unit) capsule insulin glargine 100 unit/mL (3 See Rx Instructions subcut 08/01/24 Unknown History mL) subcutaneous pen .COMPLEX diabetes tizanidine 2 mg tablet 1 mg PO Q8H PRN see pcp 08/01/24 Unknown History gabapentin 300 mg capsule 300 mg PO BID see pcp #60 caps 08/02/24 Unknown Rx onabotulinumtoxinA 100 unit 200 unit IM ONCE #2 ea 08/02/24 Unknown Rx solution for injection (Botox) levocarnitine 330 mg tablet 330 mg PO BID see pcp #60 tabs 08/03/24 Unknown Rx ibuprofen 600 mg tablet 600 mg PO Q6H PRN PRN pain #20 08/19/24 Unknown Rx TABLETS ibuprofen 600 mg tablet 600 mg PO Q6H PRN PRN pain #20 08/19/24 Unknown Rx TABLETS hydrocodone-acetaminophen 5-325mg 1 tab PO BID pain 09/11/24 Unknown History 5mg-325mg loratadine 10 mg tablet (Claritin) 10 mg PO DAILY allergies 09/11/24 Unknown History Allergy/AdvReac Type Severity Reaction Status Date / Time adhesive tape Allergy Intermediate Rash Verified 08/19/24 15:53 latex Allergy Rash Verified 08/19/24 15:53 levofloxacin (From Levaquin) Allergy Hives Verified 08/19/24 15:53 ondansetron (From Zofran) Allergy Hives Verified 08/19/24 15:53 nalbuphine (From Nubain) AdvReac Other Verified 08/19/24 15:53 Family History Father Cancer Mother Cancer Surgical History Hx of tubal ligation Hx of tonsillectomy Hx of cholecystectomy Social History household members: family housing: [facility] Smoking Status: Former smoker alcohol intake: never substance use type: does not use EXAM Physical Exam Const Vital Signs: 09/11/24 13:42 09/11/24 13:46 09/11/24 15:41 Temperature 98 F 98.7 F Temperature Source Temporal Oral Pulse Rate 57 L 61 32 L Respiratory Rate 16 18 12 Respiratory Pattern Blood Pressure 135/73 H 130/79 H 128/59 H Blood Pressure Mean 93 96 82 Pulse Ox 99 98 92 Oxygen Delivery Method Room Air Room Air Room Air 09/11/24 15:46 09/11/24 16:00 09/11/24 16:10 Temperature 98.7 F 98 F Temperature Source Oral Oral Pulse Rate 35 L 37 L 37 L Respiratory Rate 18 15 13 Respiratory Pattern Blood Pressure 129/59 H 129/59 H Blood Pressure Mean 82 82 Pulse Ox 97 97 Oxygen Delivery Method Room Air Room Air 09/11/24 16:15 09/11/24 16:37 09/11/24 16:38 Temperature Temperature Source Pulse Rate 39 L 38 L Respiratory Rate 16 14 Respiratory Pattern Blood Pressure Blood Pressure Mean Pulse Ox Oxygen Delivery Method Nasal Cannula 09/11/24 16:45 09/11/24 16:47 09/11/24 17:00 Temperature Temperature Source Pulse Rate 47 L 39 L 35 L Respiratory Rate 14 17 15 Respiratory Pattern Blood Pressure 138/122 H 148/117 H Blood Pressure Mean 129 127 Pulse Ox 98 95 Oxygen Delivery Method Room Air Room Air 09/11/24 17:00 09/11/24 17:15 09/11/24 17:30 Temperature 98.2 F Temperature Source Oral Pulse Rate 40 L 40 L 36 L Respiratory Rate 16 16 16 Respiratory Pattern Blood Pressure 148/112 H 157/140 H Blood Pressure Mean 124 147 Pulse Ox 98 94 98 Oxygen Delivery Method Room Air Room Air 09/11/24 17:30 09/11/24 17:45 09/11/24 18:00 Temperature 99 F Temperature Source Oral Pulse Rate 37 L 44 L Respiratory Rate 16 16 Respiratory Pattern Blood Pressure 121/64 H 125/64 H 122/108 H Blood Pressure Mean 82 84 112 Pulse Ox 97 96 Oxygen Delivery Method Room Air 09/11/24 18:00 09/11/24 18:15 09/11/24 18:15 Temperature Temperature Source Pulse Rate 39 L 43 L 43 L Respiratory Rate 16 15 15 Respiratory Pattern Blood Pressure 112/64 122/108 H Blood Pressure Mean 78 115 Pulse Ox 98 99 99 Oxygen Delivery Method Room Air 09/11/24 18:30 09/11/24 18:45 09/11/24 19:00 Temperature 98.1 F Temperature Source Oral Pulse Rate 45 L 50 L 46 L Respiratory Rate 13 18 12 Respiratory Pattern Blood Pressure 98/73 90/76 106/47 L Blood Pressure Mean 82 81 66 Pulse Ox 100 98 Oxygen Delivery Method Room Air 09/11/24 19:00 09/11/24 19:15 09/11/24 19:30 Temperature Temperature Source Pulse Rate 53 L 46 L Respiratory Rate 12 16 Respiratory Pattern Blood Pressure 106/47 L 111/38 L 116/79 Blood Pressure Mean 67 61 92 Pulse Ox 100 Oxygen Delivery Method Room Air 09/11/24 19:36 09/11/24 19:45 09/11/24 20:00 Temperature 98 F Temperature Source Oral Pulse Rate 60 83 81 Respiratory Rate 8 L 18 14 Respiratory Pattern Blood Pressure 129/80 H 126/80 H Blood Pressure Mean 95 95 Pulse Ox 96 98 Oxygen Delivery Method Room Air Room Air 09/11/24 20:00 09/11/24 20:15 09/11/24 21:00 Temperature 98.4 F Temperature Source Oral Pulse Rate 81 80 78 Respiratory Rate 14 17 16 Respiratory Pattern Blood Pressure 126/80 H 104/83 H 129/78 H Blood Pressure Mean 93 90 95 Pulse Ox 98 Oxygen Delivery Method Room Air 09/11/24 21:00 09/11/24 21:11 Temperature Temperature Source Pulse Rate 78 60 Respiratory Rate 16 16 Respiratory Pattern Normal Blood Pressure 129/78 H Blood Pressure Mean 93 Pulse Ox Oxygen Delivery Method [facility] MDM [facility] Narrative Medical decision making narrative: HISTORY OF PRESENT ILLNESS: 59-year-old female presents with concern for confusion. She comes from [facility]. The patient cannot provide reliable history. She states she does not know when asked questions. When asked about review of systems including headache, chest pain, shortness of breath, abdominal pain, nausea, focal weakness, fever, cough, trouble urinating the patient states no. Per ENRIQUE Pittman at [facility]. Pt found on floor, stared at staff, didnt respond appropriately. Per nurse pt has chronic headaches. Takes meds for it. NOtes she is in assisted living. Discussed with Justyn Vance REVIEW OF SYSTEMS: Cannot obtain a reliable review of system secondary to patient's change in mental status PHYSICAL EXAM: Nursing triage notes reviewed, Vital signs reviewed Constitutional: please see patricia HENT: MMM Eyes: Pupils equal round and reactive to light, Extraocular muscles intact Neck: No stridor, no JVD, full neck ROM Lungs: Clear to auscultation, No wheezing or rales. No increased work of breathing, no conversational dyspnea, no accessory muscle use, no nasal flaring. No respiratory distress noted Heart: Regular rate and rhythm, No murmurs, No rubs and No gallops, 2+ distal pulses (radial, femoral, posterior tibial) in all extremities Abdomen: Soft, there is no tenderness, rigidity, rebound or guarding, no obvious peritoneal signs, no palpable pulsatile abdominal masses, no auscultated abdominal bruit : No CVAT Extremities: No edema Neuro: Alert, follows commands, is conversant, but is not oriented to person place or time, no lateralizing symptoms. Skin: No rash or lesions noted MEDICAL DECISION MAKING: Chief Complaint: Confusion External records reviewed: Reviewed ED visit from 3 weeks ago which patient presented with right-sided rib contusion Reviewed prior cardiology visit in which she is assess for bradycardia. Saw Dr. Valero in April 2024. He reviewed her EKGs and history. It was his impression that she had a junctional rhythm that was asymptomatic. This time you are for your Holter monitor. Reviewed the patient's cardiovascular testing. No Holter monitor report noted Factors affecting care: Type 2 diabetes, epilepsy, hypertension, GERD, CVA, COPD, multiple sclerosis, bradycardia Social determinants of health: [facility] resident History obtained from others: EMS Consults: Internal medicine (Dr. Fitch) MDM Narrative: Patient was initially hemodynamically stable, afebrile nontoxic-appearing. Exam without lateralizing deficits. Patient was alert however was not oriented person place or time. I considered the following differential diagnosis: ICH, postictal state, electrolyte disturbance, infectious or metabolic encephalopathy, ACS, arrhythmia, hypoglycemia. I obtained a broad lab and imaging workup to further elucidate the etiology of the patient's complaints ALL IMAGES (IF OBTAINED) HAVE BEEN PERSONALLY REVIEWED AND INTERPRETED BY MYSELF. EKG with sinus bradycardia, LAD, RBBB, No STEMI, baseline EKG Unfortunately there was an issue with the lab reports the patient's metabolic panel likely reported for several hours. Return to cardiac lab to resolve the issue. CT scan of the head was negative for ICH I have personally reviewed the patient's chest x-ray. Chest x-ray is unremarkable for pulmonary edema, pneumothorax, pneumonia or focal cardiopulmonary abnormality. VBG with signs of metabolic acidosis pH of 7.2 and a bicarb of 16 Serum alcohol negative. Lactate negative making seizure/postictal state less likely. High-sensitivity troponin is negative, no evidence of myocardial ischemia. UA with evidence of UTI. The synthesis of the patient's history, physical exam, labs images suggest UTI as a cause of her change in mental status. She also has unexplained metabolic acidosis. No sign of DKA. Lactate was negative. Will admit for antibiotics and further evaluation. Discussed with Dr. Fitch The patient and/or family, caregivers express understanding. The patient and/or family, caregivers agrees with the plan. Shared decision making: I will have a discussion with the patient and or visitors regarding risk/benefits of further testing or admission. They will be made aware of of the risk/benefits inherent in this decision they will be given the opportunity to voice understanding. Total critical care time today provided was at least 0 minutes. This excludes separately billable procedures. Critical care time (if documented) is secondary to the patient having high probability of clinically significant/life threatening deterioration in the patient's condition which required my urgent intervention. Impression: 1. Altered mental status 2. Chronic bradycardia 3. UTI 4. Metabolic acidosis Dispo: admit to PCU This note was generated with [email or web address] dictation software. It may contain incorrect words, spelling, and punctuation that were not noted in review of the chart prior to signing. Lab Data Labs: Laboratory Results - last 24 hr 09/11/24 09/11/24 09/11/24 16:15 16:54 18:00 WBC 13.6 H RBC 4.10 L Hgb 11.9 L Hct 38.6 MCV 94.1 MCH 29.0 MCHC 30.8 L RDW Std Deviation 52.1 H RDW Coeff of He 15.1 H Plt Count 190 MPV 11.0 Immature Gran % (Auto) 1.300 H Neut % (Auto) 79.6 H Lymph % (Auto) 12.2 L Pacific % (Auto) 6.7 Eos % (Auto) 0.0 Baso % (Auto) 0.2 Absolute Neuts (auto) 10.8 H Absolute Lymphs (auto) 1.65 Nucleated RBC % 0 Sodium 135 Potassium 6.5 H* Chloride 106 Carbon Dioxide 12.3 L Anion Gap 17 H BUN 15 Creatinine 0.79 Estim Creat Clear Calc 86.54 Est GFR (MDRD) Non-Af 86 BUN/Creatinine Ratio 18.9 Glucose 132 H Lactic Acid < 1.0 Calcium 9.6 Total Bilirubin 0.22 Direct Bilirubin < 0.08 AST 45 H ALT 20 Alkaline Phosphatase 132 H Troponin T High Sens 19 H Total Protein 8.3 Albumin 4.3 Globulin 4.0 Lipase 25 Urine Color Yellow Urine Clarity Clear Urine pH 6.5 Ur Specific [place] 1.010 Urine Protein 30 H Urine Glucose (UA) Normal Urine Ketones Negative Urine Occult Blood Negative Urine Nitrite Positive H Urine Bilirubin Negative Urine Urobilinogen 1 H Ur Leukocyte Esterase 25 H Urine RBC 0 SEEN Urine WBC 5-10 SEEN Ur Squamous Epith Cells 0-5 SEEN Urine Bacteria 1+ Urine Mucus 0 SEEN Urine Opiates Screen NEGATIVE U Buprenorphine Qual NEGATIVE Ur Oxycodone Screen NEGATIVE Urine Methadone Screen NEGATIVE Urine Fentanyl Screen NEGATIVE Ur Barbiturates Screen NEGATIVE Ur Phencyclidine Scrn NEGATIVE Ur Amphetamines Screen NEGATIVE U Benzodiazepines Scrn NEGATIVE Urine Cocaine Screen NEGATIVE U Cannabinoids Screen NEGATIVE Ethyl Alcohol < 10.1 POC Glucose 09/11/24 09/11/24 18:24 21:20 WBC RBC Hgb Hct MCV MCH MCHC RDW Std Deviation RDW Coeff of He Plt Count MPV Immature Gran % (Auto) Neut % (Auto) Lymph % (Auto) Pacific % (Auto) Eos % (Auto) Baso % (Auto) Absolute Neuts (auto) Absolute Lymphs (auto) Nucleated RBC % Sodium 139 Potassium 4.6 Chloride 112 H Carbon Dioxide 15.8 L Anion Gap 10 BUN 14 Creatinine 0.66 L Estim Creat Clear Calc 103.58 Est GFR (MDRD) Non-Af 102 BUN/Creatinine Ratio 20.6 H Glucose 99 Lactic Acid Calcium 8.1 Total Bilirubin Direct Bilirubin AST ALT Alkaline Phosphatase Troponin T High Sens Total Protein Albumin Globulin Lipase Urine Color Urine Clarity Urine pH Ur Specific [place] Urine Protein Urine Glucose (UA) Urine Ketones Urine Occult Blood Urine Nitrite Urine Bilirubin Urine Urobilinogen Ur Leukocyte Esterase Urine RBC Urine WBC Ur Squamous Epith Cells Urine Bacteria Urine Mucus Urine Opiates Screen U Buprenorphine Qual Ur Oxycodone Screen Urine Methadone Screen Urine Fentanyl Screen Ur Barbiturates Screen Ur Phencyclidine Scrn Ur Amphetamines Screen U Benzodiazepines Scrn Urine Cocaine Screen U Cannabinoids Screen Ethyl Alcohol POC Glucose 110 H ABG Data ABG results: ABG 09/11/24 17:45 Specimen Type STEVE Sample Site Not entered VBG pH 7.23 L VBG pO2 44 H VBG HCO3 16 L VBG Total CO2 17 L VBG O2 Sat (Calc) 72 H VBG Base Excess -12 L POC Mix VBG pCO2 Pt Tmp 38.1 L O2 Delivery Device Not entered Radiography Diagnostic Testing: Clinical Impression(s) from Imaging Studies Brain CT 09/11/24 15:00 IMPRESSION: 1. No acute intracranial process. If clinical concern for acute ischemia, MRI is a more sensitive exam. 2. Chronic small vessel ischemic disease. 3. Atrophy. Reading Location: [facility] Chest X-Ray 09/11/24 16:30 IMPRESSION: No acute cardiopulmonary process. Reading Location: [facility] Discharge Plan Disposition Disposition: Acute Care Hospital [facility] Discharge Date/Time: 09/11/24 22:24
--- NOTE | 2024-09-11 15:00 | CT_ITS ---
EXAM: CT brain without IV contrast CLINICAL HISTORY: Mental status changes. COMPARISON: CT brain from 11/12/2023. TECHNIQUE: Multiple, axial CT images of the brain are obtained without intravenous contrast. Coronal and sagittal 2D reformatted images were provided for better evaluation. Dose reduction technique was used. FINDINGS: There is prominence of the ventricles and sulci indicative of atrophy. Periventricular and deep white matter hypoattenuation likely relates to chronic small vessel ischemic disease. No midline shift, mass effect, or extra-axial fluid collections are identified. No acute intracranial hemorrhage, mass, or acute territorial infarction is present per CT criteria. Almodovar-white junction is preserved. Calvarium is intact. Visualized paranasal sinuses demonstrates trace mucosal thickening. CT/Brain/Head without Contrast IMPRESSION: 1. No acute intracranial process. If clinical concern for acute ischemia, MRI i s a more sensitive exam. 2. Chronic small vessel ischemic disease. 3. Atrophy. Reading Location: [facility]
--- NOTE | 2024-09-11 15:04 | EKG12_ITS ---
Test Reason : Blood Pressure : */* mmHG Vent. Rate : 38 BPM Atrial Rate : * BPM P-R Int : * ms QRS Dur : 140 ms QT Int : 544 ms P-R-T Axes : * -53 -9 degrees QTcB Int : 432 ms Critical Test Result: Low HR , Arrhythmia afib with slow ventricular response/junctional escape Right bundle branch block Left anterior fascicular block Bifascicular block Minimal voltage criteria for LVH, may be normal variant ( R in aVL ) Abnormal ECG Confirmed by Pelon Valero ([id number]), news video editor MAHESH VASQUEZ ([id number]) on 09/12/2024 10:43:28 AM Referred By: Confirmed By: Pelon Valero
[2024-09-11 16:27] LABS: Absolute Lymphocyte Count 1.65 X10^3/uL (0.83-4.51); Absolute Neutrophil Count 10.8 X10^3/uL (2.0-7.7); Basophil# 0.03 X10^3/uL; Basophil% 0.2 % (0-1); Hematocrit 38.6 % (37-47); Hemoglobin 11.9 g/dL (12.0-15.0); Lymphocyte # 1.65 X10^3/ul (0.83-4.51); Lymphocyte % 12.2 % (19-41); Mean Corp Hgb Conc 30.8 g/dL (32-36); Mean Corpuscular Volume 94.1 fL (81-99); Monocyte# 0.91 X10^3/uL; Monocyte% 6.7 % (0-10); NRBC Flagged by Analyzer 0 % (0-5); Neutrophil # 10.82 X10^3/uL (2.7-7.7); Neutrophil % 79.6 % (47-70); Platelet Count 190 K/mm3 (150-450); RBC Distribution Width CV 15.1 % (11.6-14.6); RBC Distribution Width SD 52.1 fl (35.1-43.9); White Blood Count 13.6 K/mm3 (4.4-11.0)
--- NOTE | 2024-09-11 16:30 | RAD_ITS ---
PROCEDURE: CHEST 1 VIEW (PORTABLE) REASON FOR EXAM: Mental status changes. TECHNIQUE: Frontal view of the chest. COMPARISON: Chest x-ray and right ribs from 08/19/2024. FINDINGS: Cardiac size is stable. Pulmonary vasculature is within normal limits. No consolidation, pleural effusion, or pneumothorax is present. There are recent right-sided rib fractures. RAD/Chest 1 View (Portable) IMPRESSION: No acute cardiopulmonary process. Reading Location: [facility]
[2024-09-11 17:27] LABS: Troponin T High Sensitivity 19 ng/L (<=14)
[2024-09-11 17:48] LABS: Alcohol, Blood (Medical)-Serum < 10.1 mg/dL (<=10.0)
[2024-09-11 17:48] LABS: Blood Gas Specimen Type VEN; O2 Delivery Device Not entered; SITE Not entered; VBG BASE EXCESS -12 mmol/L (-1.0-3.5); VBG Bicarbonate 16 mmol/L (22-26); VBG PO2 44 mmHg (25-40); VBG SO2 72 % (50-70); VBG TCO2 17 mmol/L (23-33); VBG pCO2 38.1 mmHg (41-51); VBG pH 7.23 (7.32-7.42)
[2024-09-11 17:52] LABS: Lactic Acid < 1.0 mmol/L (0.0-2.0)
[2024-09-11 18:25] LABS: Mucous, Urine 0 SEEN /hpf (<or=2+)
[2024-09-11 18:43] LABS: Bedside Glucose 110 mg/dL (74-106)
[2024-09-11 18:45] LABS: Color, Urine Yellow (Yellow); Glucose, Dipstick Normal (Normal); Ketone-Dipstick Negative (Negative); Leukocyte Esterase-Dipstick 25 /ul (Negative); Nitrite-Dipstick Positive (Negative); Occult Blood-Urine Negative /ul (Negative); Protein-Dipstick 30 mg/dl (Negative); Urine Bilirubin Dipstick Negative (Negative); Urine Clarity Clear (Clear); Urine Urobilinogen 1 mg/dl (Normal); Urine pH 6.5 (5.0 - 8.0)
[2024-09-11 19:05] LABS: Bacteria 1+ /hpf (None Seen); Red Blood Cells-Urine 0 SEEN /hpf (0-5); Squamous Epithelial Cells - UA 0-5 SEEN /hpf (5-10); White Blood Cells 5-10 SEEN /hpf (0-5)
[2024-09-11 19:39] LABS: Amphetamine Urine NEGATIVE (<1000 ng/mL); Barbiturate Urine NEGATIVE (< 200 ng/mL); Benzodiazepine Urine NEGATIVE (< 200 ng/mL); Buprenorphine Urine NEGATIVE (< 200 ng/mL); Cocaine Urine NEGATIVE (< 300 ng/mL); Fentanyl, Urine NEGATIVE; Methadone Urine NEGATIVE (< 300 ng/mL); Opiates Urine NEGATIVE (< 300 ng/mL); Oxycodone, Urine NEGATIVE (< 100 ng/mL); PCP Urine NEGATIVE (< 25 ng/mL); THC Urine NEGATIVE (< 50 ng/mL)
--- NOTE | 2024-09-11 19:39 | ED.RN ---
1935:PT FOUND STANDING AT END OF BED STATING PLEASE, CAN I HAVE MY SHIRT. NURSES Marshall LISA AND Connie PATRICIA AT BEDSIDE. THE SHIRT WAS LOCATED ON A CHAIR NECK TO THE BED. 1937: STAFF ASSISTED PT. BACK INTO BED AND HANDED PT. HER CELL PHONE D/T HER REQUEST
--- NOTE | 2024-09-11 20:24 | ED.RN ---
1820: LAB CALLED FOR OUTSTANDING LAB RESULTS. RESPONSE THERE IS ONLY ONE RUNNING MACHINE RIGHT NOW 2024: LAB CALLED FOR OUTSTANDING LABS. RESPONSE HE IS RUNNING IT HIMSELF NOW
[2024-09-11 20:25] LABS: Lipase 25 U/L (13-75)
[2024-09-11 20:34] LABS: AST(SGOT) 45 U/L (<=31); Alanine Aminotransfer ALT/SGPT 20 U/L (<=34); Albumin, Serum 4.3 g/dL (3.5-5.0); Alkaline Phosphatase 132 U/L (35-104); Anion Gap 17 (5-15); BUN 15 mg/dL (4-19); BUN/Creat Ratio 18.9 RATIO (10-20); Bilirubin, Direct < 0.08 mg/dL (0.00-0.30); Calcium,Total 9.6 mg/dL (7.6-11.0); Carbon Dioxide 12.3 mmol/L (21.0-32.0); Chloride 106 mmol/L (98-108); Creatinine, Serum 0.79 mg/dL (0.70-1.20); EST Glomerular Filtration Rate 86 (>60); Estimated Creatinine Clearance 86.54 ml/min (50-250); Glucose 132 mg/dL (70-99); Protein, Total 8.3 g/dL (5.9-8.4); Sodium Level 135 mmol/L (133-145); Total Bilirubin 0.22 mg/dL (0.00-1.30)
[2024-09-11] MEDS: Albuterol 2.5 MG/3 ML VIAL.NEB. INHALATION (21:11)
--- NOTE | 2024-09-11 21:14 | PCM.HP.STD ---
HPI - General General Date of Admission: 09/11/24 Date of Service: 09/11/24 Chief Complaint: Altered mental status HPI Narrative FAM VINSON, is a 59 F who presents to the emergency room from assisted living facility due to altered mental status. Patient was found by medical staff at the facility on the ground and was reportedly confused. She is unable to provide any meaningful history. She has significant past medical history of multiple sclerosis, epilepsy, history of CVA and diabetes. Patient is able to express that it hurts to pee. Laboratory studies are remarkable for an elevated white blood cell count of 13.6 with hemoglobin 11.9 hematocrit 38.6, platelets of 190, sodium 135, potassium 6.5 (possibly hemolyzed), chloride 106, bicarb 12.6, BUN 15, creatinine 0.79, glucose 132, CT head was negative for acute findings as well as chest x-ray negative for acute process. Patient is reportedly confused beyond her normal baseline according to ER physician note when he was speaking with her son. Patient will be admitted to progressive care unit and treat for urinary tract infection, repeat potassium as it would may have been hemolyzed (EKG was negative for signs of hyperkalemia). [facility] Medical History Bradycardia Multiple sclerosis Demyelinating disease of central nervous system Epilepsy Generalized weakness Recurrent falls Recurrent syncope Anxiety Depression COPD (chronic obstructive pulmonary disease) Migraines Multiple falls Diabetes mellitus, type 2 History of CVA (cerebrovascular accident) GERD (gastroesophageal reflux disease) Obesity Former tobacco use Seizure disorder Allergic rhinitis Chronic migraine Orthostasis HTN (hypertension) Psoriasis Hypercholesterolemia Home Medications ?Medication ?Instructions ?Recorded ?Last Taken ?Type albuterol sulfate 90 mcg/actuation 2 puff inhalation Q4H PRN Wheezing 09/03/22 09/04/23 History aerosol inhaler atorvastatin 80 mg tablet 80 mg PO QHS cholesterol 09/03/22 10/08/23 History diclofenac sodium 75 mg 75 mg PO BID PRN pain 09/03/22 09/04/23 History tablet,delayed release docusate sodium 100 mg capsule 100 mg PO BID CONSTIPATION 09/03/22 09/03/23 History flash glucose scanning reader 09/03/22 Unknown History (FotologStyle Es 2 [place]) flash glucose sensor (FreeStyle 09/03/22 Unknown History Es 2 Sensor kit) gabapentin 800 mg tablet 800 mg PO QHS nerve pain 09/03/22 10/08/23 History insulin syr/ndl U100 half shirley 0.5 09/03/22 Unknown History mL 31 gauge x 5/16 (Droplet Insulin Syringe (half unit)) omeprazole 40 mg capsule,delayed 40 mg PO DAILY GERD 09/03/22 10/09/23 History release promethazine 25 mg tablet 25 mg PO Q6H PRN PRN Nausea #12 11/08/22 09/04/23 Rx TABLETS dextromethorphan 20 mg-quinidine 1 cap PO BID DEPRESSION 02/06/23 10/09/23 History 10 mg capsule (Nuedexta) ubrogepant 100 mg tablet (Ubrelvy) 100 mg PO .COMPLEX PRN MIGRAINE 02/06/23 09/04/23 History furosemide 20 mg tablet (Lasix) 20 mg PO DAILY EDEMA 07/29/23 10/09/23 History semaglutide 0.25 mg or 0.5 mg (2 0.25 mg subcut QWEEK diabetes 07/29/23 10/06/23 History mg/3 mL) subcutaneous pen injector (Ozempic) galcanezumab-gnlm 120 mg/mL 120 mg subcut .COMPLEX migrane 09/04/23 10/03/23 History subcutaneous pen injector (Emgality Pen) insulin lispro 100 unit/mL 3 unit subcut .COMPLEX DIABETES 09/04/23 09/04/23 History subcutaneous solution meclizine 25 mg tablet 25 mg PO DAILY PRN vertigo 09/04/23 09/04/23 History nystatin 100,000 unit/gram topical 1 applic topical BID RASH 09/04/23 10/09/23 History powder (Nyamyc) topiramate 200 mg tablet 200 mg PO TID 09/04/23 10/09/23 History ipratropium 0.5 mg-albuterol 3 mg 3 ml inhalation Q6H PRN shortness 09/10/23 Unknown History (2.5 mg base)/3 mL nebulization of breath or wheezing soln lorazepam 0.5 mg tablet 0.5 mg PO QHS PRN Anxiety 10/09/23 Unknown History carbamazepine 200 mg tablet 200 mg PO 0900,1700 seizure 10/10/23 10/10/23 History (Tegretol) carbamazepine 200 mg tablet 300 mg PO QHS seizures 10/10/23 10/09/23 History (Tegretol) fluticasone furoate 200 1 inh inhalation DAILY copd 11/13/23 Unknown History mcg/actuation blister powder for inhalation (Arnuity Ellipta) Lactobacillus rhamnosus GG 10 1 cap PO QDAY 05/09/24 Unknown History billion cell capsule (Culturelle) acetaminophen 500 mg capsule 1,000 mg PO Q6H PRN 05/09/24 Unknown History aluminum-magnesium hydroxide 225 30 ml PO Q4H PRN 05/09/24 Unknown History mg-200 mg/5 mL oral suspension ascorbic acid (vitamin C) 500 mg 500 mg PO QDAY 05/09/24 Unknown History tablet benzocaine 15 mg-menthol 2.6 mg 1 nasreen mucous membrane Q2H PRN 05/09/24 Unknown History lozenges (Cepacol Sore Throat (benzocaine-menthol)) cephalexin 250 mg capsule 250 mg PO QHS 05/09/24 Unknown History cranberry fruit 450 mg tablet 450 mg PO TID 05/09/24 Unknown History duloxetine 60 mg capsule,delayed 60 mg PO QDAY mental health 05/09/24 Unknown History release estradiol 0.01% (0.1 mg/gram) 1 g vaginal 2XW 05/09/24 Unknown History vaginal cream guaifenesin 100 mg/5 mL oral liquid 200 mg PO Q4H PRN 05/09/24 Unknown History ixekizumab 80 mg/mL subcutaneous 80 mg subcut Q4W 05/09/24 Unknown History auto-injector (Taltz Autoinjector) loperamide 2 mg tablet 2 mg PO Q12H PRN 05/09/24 Unknown History magnesium hydroxide 400 mg/5 mL 30 ml PO QDAY PRN 05/09/24 Unknown History oral suspension (Milk of Magnesia) melatonin 12 mg tablet 12 mg PO QHS 05/09/24 Unknown History midodrine 5 mg tablet 5 mg PO TID blood pressure 05/09/24 Unknown History polyethylene glycol 3350 17 4 g PO QDAY PRN 05/09/24 Unknown History gram/dose oral powder (Miralax) potassium chloride 10 mEq 40 meq PO DAILY SUPPLEMENT 05/09/24 Unknown History tablet,extended release triamcinolone acetonide 0.1 % 1 applic topical QDAY 05/09/24 Unknown History topical cream cetirizine 10 mg tablet (Zyrtec) 10 mg PO QDAY 08/01/24 Unknown History ergocalciferol (vitamin D2) 1,250 50,000 unit PO QWEEK vitamin 08/01/24 Unknown History mcg (50,000 unit) capsule insulin glargine 100 unit/mL (3 See Rx Instructions subcut 08/01/24 Unknown History mL) subcutaneous pen .COMPLEX diabetes tizanidine 2 mg tablet 1 mg PO Q8H PRN 08/01/24 Unknown History gabapentin 300 mg capsule 300 mg PO BID #60 caps 08/02/24 Unknown Rx onabotulinumtoxinA 100 unit 200 unit IM ONCE #2 ea 08/02/24 Unknown Rx solution for injection (Botox) levocarnitine 330 mg tablet 330 mg PO BID #60 tabs 08/03/24 Unknown Rx ibuprofen 600 mg tablet 600 mg PO Q6H PRN PRN pain #20 08/19/24 Unknown Rx TABLETS ibuprofen 600 mg tablet 600 mg PO Q6H PRN PRN pain #20 08/19/24 Unknown Rx TABLETS Allergy/AdvReac Type Severity Reaction Status Date / Time adhesive tape Allergy Intermediate Rash Verified 08/19/24 15:53 latex Allergy Rash Verified 08/19/24 15:53 levofloxacin (From Levaquin) Allergy Hives Verified 08/19/24 15:53 ondansetron (From Zofran) Allergy Hives Verified 08/19/24 15:53 nalbuphine (From Nubain) AdvReac Other Verified 08/19/24 15:53 Family History Father Cancer Mother Cancer Surgical History Hx of tubal ligation Hx of tonsillectomy Hx of cholecystectomy Social History household members: family housing: jail Smoking Status: Former smoker alcohol intake: never substance use type: does not use ROS Review of Systems ROS Unobtainable: due to mental status Vital Signs Vital Signs Vital Signs: 09/11/24 13:42 09/11/24 13:46 09/11/24 15:41 Temperature 98 F 98.7 F Temperature Source Temporal Oral Pulse Rate 57 L 61 32 L Respiratory Rate 16 18 12 Blood Pressure 135/73 H 130/79 H 128/59 H Blood Pressure Mean 93 96 82 Pulse Ox 99 98 92 Oxygen Delivery Method Room Air Room Air Room Air 09/11/24 15:46 09/11/24 16:00 09/11/24 16:10 Temperature 98.7 F 98 F Temperature Source Oral Oral Pulse Rate 35 L 37 L 37 L Respiratory Rate 18 15 13 Blood Pressure 129/59 H 129/59 H Blood Pressure Mean 82 82 Pulse Ox 97 97 Oxygen Delivery Method Room Air Room Air 09/11/24 16:15 09/11/24 16:37 09/11/24 16:38 Temperature Temperature Source Pulse Rate 39 L 38 L Respiratory Rate 16 14 Blood Pressure Blood Pressure Mean Pulse Ox Oxygen Delivery Method Nasal Cannula 09/11/24 16:45 09/11/24 16:47 09/11/24 17:00 Temperature Temperature Source Pulse Rate 47 L 39 L 35 L Respiratory Rate 14 17 15 Blood Pressure 138/122 H 148/117 H Blood Pressure Mean 129 127 Pulse Ox 98 95 Oxygen Delivery Method Room Air Room Air 09/11/24 17:00 09/11/24 17:15 09/11/24 17:30 Temperature 98.2 F Temperature Source Oral Pulse Rate 40 L 40 L 36 L Respiratory Rate 16 16 16 Blood Pressure 148/112 H 157/140 H Blood Pressure Mean 124 147 Pulse Ox 98 94 98 Oxygen Delivery Method Room Air Room Air 09/11/24 17:30 09/11/24 17:45 09/11/24 18:00 Temperature 99 F Temperature Source Oral Pulse Rate 37 L 44 L Respiratory Rate 16 16 Blood Pressure 121/64 H 125/64 H 122/108 H Blood Pressure Mean 82 84 112 Pulse Ox 97 96 Oxygen Delivery Method Room Air 09/11/24 18:00 09/11/24 18:15 09/11/24 18:15 Temperature Temperature Source Pulse Rate 39 L 43 L 43 L Respiratory Rate 16 15 15 Blood Pressure 112/64 122/108 H Blood Pressure Mean 78 115 Pulse Ox 98 99 99 Oxygen Delivery Method Room Air 09/11/24 18:30 09/11/24 18:45 09/11/24 19:00 Temperature 98.1 F Temperature Source Oral Pulse Rate 45 L 50 L 46 L Respiratory Rate 13 18 12 Blood Pressure 98/73 90/76 106/47 L Blood Pressure Mean 82 81 66 Pulse Ox 100 98 Oxygen Delivery Method Room Air 09/11/24 19:00 09/11/24 19:15 09/11/24 19:30 Temperature Temperature Source Pulse Rate 53 L 46 L Respiratory Rate 12 16 Blood Pressure 106/47 L 111/38 L 116/79 Blood Pressure Mean 67 61 92 Pulse Ox 100 Oxygen Delivery Method Room Air 09/11/24 19:36 09/11/24 19:45 09/11/24 20:00 Temperature 98 F Temperature Source Oral Pulse Rate 60 83 81 Respiratory Rate 8 L 18 14 Blood Pressure 129/80 H 126/80 H Blood Pressure Mean 95 95 Pulse Ox 96 98 Oxygen Delivery Method Room Air Room Air 09/11/24 20:00 09/11/24 20:15 Temperature Temperature Source Pulse Rate 81 80 Respiratory Rate 14 17 Blood Pressure 126/80 H 104/83 H Blood Pressure Mean 93 90 Pulse Ox 98 Oxygen Delivery Method Room Air Weight Weight: 193 lb 1.999 oz Body Mass Index (BMI) 31.0 Physical Exam Const alert and no apparent distress Orientation / Consciousness: confused HEENT normocephalic and head/scalp atraumatic Eyes PERRL and EOMs intact bilaterally Neck no lymphadenopathy Lymph Lymphatic: no lymphadenopathy noted Resp normal respiratory effort, normal air movement and clear to auscultation bilaterally Cardio regular rate, regular rhythm, S1 normal heart sound, S2 normal heart sound and no murmurs GI normal to inspection, nondistended, normoactive bowel sounds, soft to palpation, non-tender and non-distended Extremity normal capillary refill Skin General Skin Exam: no breakdown Neuro no focal motor deficits and no sensory deficits noted Neuro Narrative: AX O x 1- knew her name, could not tell me the year or where she was Motor Exam: strength 5/5 throughout Psych affect normal Results Lab / Micro Data 09/11/24 16:15 09/11/24 16:15 Labs: Laboratory Results - last 24 hr 09/11/24 16:15: WBC 13.6 H, RBC 4.10 L, Hgb 11.9 L, Hct 38.6, MCV 94.1, MCH 29.0, MCHC 30.8 L, RDW Std Deviation 52.1 H, RDW Coeff of He 15.1 H, Plt Count 190, MPV 11.0, Immature Gran % (Auto) 1.300 H, Neut % (Auto) 79.6 H, Lymph % (Auto) 12.2 L, Bracken % (Auto) 6.7, Eos % (Auto) 0.0, Baso % (Auto) 0.2, Absolute Neuts (auto) 10.8 H, Absolute Lymphs (auto) 1.65, Nucleated RBC % 0, Sodium 135, Potassium 6.5 H*, Chloride 106, Carbon Dioxide 12.3 L, Anion Gap 17 H, BUN 15, Creatinine 0.79, Estim Creat Clear Calc 86.54, Est GFR (MDRD) Non-Af 86, BUN/Creatinine Ratio 18.9, Glucose 132 H, Lactic Acid < 1.0, Calcium 9.6, Total Bilirubin 0.22, Direct Bilirubin < 0.08, AST 45 H, ALT 20, Alkaline Phosphatase 132 H, Troponin T High Sens 19 H, Total Protein 8.3, Albumin 4.3, Globulin 4.0, Lipase 25 09/11/24 16:54: Ethyl Alcohol < 10.1 09/11/24 18:00: Urine Color Yellow, Urine Clarity Clear, Urine pH 6.5, Ur Specific [place] 1.010, Urine Protein 30 H, Urine Glucose (UA) Normal, Urine Ketones Negative, Urine Occult Blood Negative, Urine Nitrite Positive H, Urine Bilirubin Negative, Urine Urobilinogen 1 H, Ur Leukocyte Esterase 25 H, Urine RBC 0 SEEN, Urine WBC 5-10 SEEN, Ur Squamous Epith Cells 0-5 SEEN, Urine Bacteria 1+, Urine Mucus 0 SEEN, Urine Opiates Screen NEGATIVE, U Buprenorphine Qual NEGATIVE, Ur Oxycodone Screen NEGATIVE, Urine Methadone Screen NEGATIVE, Urine Fentanyl Screen NEGATIVE, Ur Barbiturates Screen NEGATIVE, Ur Phencyclidine Scrn NEGATIVE, Ur Amphetamines Screen NEGATIVE, U Benzodiazepines Scrn NEGATIVE, Urine Cocaine Screen NEGATIVE, U Cannabinoids Screen NEGATIVE 09/11/24 18:24: POC Glucose 110 H ABG Data ABG results: ABG 09/11/24 17:45 Specimen Type STEVE Sample Site Not entered VBG pH 7.23 L VBG pO2 44 H VBG HCO3 16 L VBG Total CO2 17 L VBG O2 Sat (Calc) 72 H VBG Base Excess -12 L POC Mix VBG pCO2 Pt Tmp 38.1 L O2 Delivery Device Not entered Imaging Radiology Impression Brain CT 09/11/24 15:00 IMPRESSION: 1. No acute intracranial process. If clinical concern for acute ischemia, MRI is a more sensitive exam. 2. Chronic small vessel ischemic disease. 3. Atrophy. [facility] Chest X-Ray 09/11/24 16:30 IMPRESSION: No acute cardiopulmonary process. Reading [facility] Assessment & Plan Assessment/Plan (1) Diabetes mellitus, type 2: (2) Demyelinating disease of central nervous system: (3) Urinary tract infection: (4) Altered mental status: PLAN: Plan 1 altered mental status?admit patient to progressive care unit, initiate neurologic checks and assessments through the night, can order MRI noncontrast head for a.m. 2. Urinary tract infection?treat patient with IV Rocephin cultures pending, repeat cbc, BMP in the a.m. 3. Diabetes continue routine home medication 4. DVT prophylaxis?low molecular weight heparin 5. Hyperkalemia?suspicious for hemolysis in the laboratory due to delay in processing of sample therefore will obtain repeat lab study before treating. Charges/Coding Visit Charges Inpatient E&M: 96230 Init Hosp L2
--- NOTE | 2024-09-11 22:12 | ED.RN ---
RANI BAUTISTA CALLED AN UPDATED ON PT. ADMISSION. I SPOKE WITH BETH
[2024-09-11 22:31] LABS: Anion Gap 10 (5-15); BUN 14 mg/dL (4-19); BUN/Creat Ratio 20.6 RATIO (10-20); Calcium,Total 8.1 mg/dL (7.6-11.0); Carbon Dioxide 15.8 mmol/L (21.0-32.0); Chloride 112 mmol/L (98-108); Creatinine, Serum 0.66 mg/dL (0.70-1.20); EST Glomerular Filtration Rate 102 (>60); Estimated Creatinine Clearance 103.58 ml/min (50-250); Glucose 99 mg/dL (70-99); Potassium 4.6 mmol/L (3.3-5.1); Sodium Level 139 mmol/L (133-145)
[2024-09-11 23:08] LABS: Bedside Glucose 119 mg/dL (74-106)
[2024-09-11] MEDS: carBAMazepine 200 MG Tablet 300 MG PO (23:40)
[2024-09-11] MEDS: Atorvastatin Calcium 80 MG Tablet PO (23:40)
[2024-09-11] MEDS: Midodrine HCl 5 MG Tablet PO (23:40)
[2024-09-11] MEDS: Ceftriaxone 1 GM/50 ML BAG IV (23:44)
[2024-09-12] VITALS (7 sets, daily range): BP systolic 109–130; BP diastolic 53–67; PULSE 64–78; RESP 14–18; TEMP 36.4–36.9; O2SAT 96–100
[2024-09-12] MEDS: Midodrine HCl 5 MG Tablet PO ×3 (05:20→20:45)
[2024-09-12 05:36] LABS: Potassium 6.5 mmol/L (3.3-5.1)
[2024-09-12 06:26] LABS: Absolute Lymphocyte Count 2.08 X10^3/uL (0.83-4.51); Absolute Neutrophil Count 6.8 X10^3/uL (2.0-7.7); Basophil# 0.03 X10^3/uL; Basophil% 0.3 % (0-1); Eosinophil# 0.02 X10^3/uL; Eosinophils% 0.2 % (0-5); Hematocrit 31.1 % (37-47); Hemoglobin 9.8 g/dL (12.0-15.0); Lymphocyte # 2.08 X10^3/ul (0.83-4.51); Lymphocyte % 21.5 % (19-41); Mean Corp Hgb Conc 31.5 g/dL (32-36); Mean Corpuscular Hgb 28.8 pg (27.0-32.0); Mean Corpuscular Volume 91.5 fL (81-99); Mean Platelet Vol. 11.3 fl (6.2-12.0); Monocyte% 7.2 % (0-10); NRBC Flagged by Analyzer 0 % (0-5); Neutrophil # 6.83 X10^3/uL (2.7-7.7); Neutrophil % 70.5 % (47-70); Platelet Count 190 K/mm3 (150-450); RBC Distribution Width CV 15.2 % (11.6-14.6); RBC Distribution Width SD 50.4 fl (35.1-43.9); White Blood Count 9.7 K/mm3 (4.4-11.0)
[2024-09-12 06:36] LABS: Anion Gap 13 (5-15); BUN 13 mg/dL (4-19); BUN/Creat Ratio 19.2 RATIO (10-20); Calcium,Total 9.1 mg/dL (7.6-11.0); Carbon Dioxide 16.6 mmol/L (21.0-32.0); Chloride 107 mmol/L (98-108); Creatinine, Serum 0.69 mg/dL (0.70-1.20); EST Glomerular Filtration Rate 101 (>60); Glucose 113 mg/dL (70-99); Potassium 4.1 mmol/L (3.3-5.1); Sodium Level 137 mmol/L (133-145)
[2024-09-12] MEDS: Budesonide Respules 0.5 MG/2 ML AMPUL.NEB. INHALATION ×2 (07:10→19:40)
[2024-09-12] MEDS: Insulin Glargine-YFGN 100 UNIT/ML Pen 30 UNIT SC (08:10)
[2024-09-12] MEDS: DULoxetine Hcl 60 MG Capsule PO (08:11)
[2024-09-12] MEDS: carBAMazepine 200 MG Tablet PO ×2 (08:11→16:47)
[2024-09-12] MEDS: Enoxaparin 40 MG/0.4 ML Syringe SC (08:11)
[2024-09-12] MEDS: Pantoprazole Sodium 40 MG Tablet PO (08:11)
[2024-09-12] MEDS: Nystatin Powder 15gm Bottle 1 APPLIC TOPICAL ×2 (08:11→20:45)
[2024-09-12 08:57] LABS: Bedside Glucose 127 mg/dL (74-106)
--- NOTE | 2024-09-12 09:16 | PCM.PN.HOSP ---
Reason for Visit Reason for Visit: Diagnoses Type 2 diabetes mellitus without complications (09/11/24) Demyelinating disease of central nervous system, unspecified (09/11/24) Urinary tract infection, site not specified (09/11/24) Altered mental status, unspecified (09/11/24) Objective Data Objective Data Vital Signs: Vital Signs Temp Pulse Resp BP Pulse Ox O2 Del Method 97.6 F L 66 16 130/56 H 96 Room Air 09/12/24 08:06 09/12/24 08:06 09/12/24 08:06 09/12/24 08:06 09/12/24 08:06 09/12/24 08:06 Oxygen Delivery Method Room Air Weight: 204 lb 9.423 oz Body Mass Index (BMI) 33.0 Intake & Output: Intake and Output for Last 24 Hours 09/10/24 09/11/24 09/12/24 23:59 23:59 23:59 Intake Total 410 / 410 Balance 410 / 410 Lab / Micro Data 09/12/24 05:37 09/12/24 05:37 Labs: Laboratory Results - last 24 hr 09/11/24 16:15: WBC 13.6 H, RBC 4.10 L, Hgb 11.9 L, Hct 38.6, MCV 94.1, MCH 29.0, MCHC 30.8 L, RDW Std Deviation 52.1 H, RDW Coeff of He 15.1 H, Plt Count 190, MPV 11.0, Immature Gran % (Auto) 1.300 H, Neut % (Auto) 79.6 H, Lymph % (Auto) 12.2 L, [place] % (Auto) 6.7, Eos % (Auto) 0.0, Baso % (Auto) 0.2, Absolute Neuts (auto) 10.8 H, Absolute Lymphs (auto) 1.65, Nucleated RBC % 0, Sodium 135, Potassium 6.5 H*, Chloride 106, Carbon Dioxide 12.3 L, Anion Gap 17 H, BUN 15, Creatinine 0.79, Estim Creat Clear Calc 86.54, Est GFR (MDRD) Non-Af 86, BUN/Creatinine Ratio 18.9, Glucose 132 H, Lactic Acid < 1.0, Calcium 9.6, Total Bilirubin 0.22, Direct Bilirubin < 0.08, AST 45 H, ALT 20, Alkaline Phosphatase 132 H, Troponin T High Sens 19 H, Total Protein 8.3, Albumin 4.3, Globulin 4.0, Lipase 25 09/11/24 16:54: Ethyl Alcohol < 10.1 09/11/24 18:00: Urine Color Yellow, Urine Clarity Clear, Urine pH 6.5, Ur Specific [place] 1.010, Urine Protein 30 H, Urine Glucose (UA) Normal, Urine Ketones Negative, Urine Occult Blood Negative, Urine Nitrite Positive H, Urine Bilirubin Negative, Urine Urobilinogen 1 H, Ur Leukocyte Esterase 25 H, Urine RBC 0 SEEN, Urine WBC 5-10 SEEN, Ur Squamous Epith Cells 0-5 SEEN, Urine Bacteria 1+, Urine Mucus 0 SEEN, Urine Opiates Screen NEGATIVE, U Buprenorphine Qual NEGATIVE, Ur Oxycodone Screen NEGATIVE, Urine Methadone Screen NEGATIVE, Urine Fentanyl Screen NEGATIVE, Ur Barbiturates Screen NEGATIVE, Ur Phencyclidine Scrn NEGATIVE, Ur Amphetamines Screen NEGATIVE, U Benzodiazepines Scrn NEGATIVE, Urine Cocaine Screen NEGATIVE, U Cannabinoids Screen NEGATIVE 09/11/24 18:24: POC Glucose 110 H 09/11/24 21:20: Sodium 139, Potassium 4.6, Chloride 112 H, Carbon Dioxide 15.8 L, Anion Gap 10, BUN 14, Creatinine 0.66 L, Estim Creat Clear Calc 103.58, Est GFR (MDRD) Non-Af 102, BUN/Creatinine Ratio 20.6 H, Glucose 99, Calcium 8.1 09/11/24 22:50: POC Glucose 119 H 09/12/24 05:37: WBC 9.7, RBC 3.40 L, Hgb 9.8 L, Hct 31.1 L, MCV 91.5, MCH 28.8, MCHC 31.5 L, RDW Std Deviation 50.4 H, RDW Coeff of He 15.2 H, Plt Count 190, MPV 11.3, Immature Gran % (Auto) 0.300, Neut % (Auto) 70.5 H, Lymph % (Auto) 21.5, [place] % (Auto) 7.2, Eos % (Auto) 0.2, Baso % (Auto) 0.3, Absolute Neuts (auto) 6.8, Absolute Lymphs (auto) 2.08, Nucleated RBC % 0, Sodium 137, Potassium 4.1, Chloride 107, Carbon Dioxide 16.6 L, Anion Gap 13, BUN 13, Creatinine 0.69 L, Estim Creat Clear Calc 102.00, Est GFR (MDRD) Non-Af 101, BUN/Creatinine Ratio 19.2, Glucose 113 H, Calcium 9.1 09/12/24 08:08: POC Glucose 127 H ABG Data ABG results: ABG 09/11/24 17:45 Specimen Type STEVE Sample Site Not entered VBG pH 7.23 L VBG pO2 44 H VBG HCO3 16 L VBG Total CO2 17 L VBG O2 Sat (Calc) 72 H VBG Base Excess -12 L POC Mix VBG pCO2 Pt Tmp 38.1 L O2 Delivery Device Not entered Radiography Diagnostic Testing: Radiology Impression Brain CT 09/11/24 15:00 IMPRESSION: 1. No acute intracranial process. If clinical concern for acute ischemia, MRI is a more sensitive exam. 2. Chronic small vessel ischemic disease. 3. Atrophy. Reading Location: [facility] Chest X-Ray 09/11/24 16:30 IMPRESSION: No acute cardiopulmonary process. Reading Location: [facility] Physical Exam Narrative Seen and examined Patient states she is little confused and it takes time to answer the question. She answered the question of month, year, age, date of but takes time to answer it. Physical exam General: Alert, Oriented x3, Cooperative, slow to respond intermittent confused HEENT: Atraumatic, PERRLA, EOMI, Normocephalic Oral: No Gingival or Mucosal Lesions/ Ulcerations Neck: Supple, No JVD, Negative Carotid Bruits Chest wall/Lungs: Air entry diminished in bilateral lung bases. Bilateral coarse crepitations and wheezing Cardiovascular: Regular rate, Regular Rhythm, Normal S1, Normal S2, No M/G/R Abdomen: Bowel Sounds Present, Soft, Non Tender, Non-Distended : No dysuria. No renal angle tenderness. No suprapubic tenderness. Extremities: No edema, Capillary Refill Less than 3 Seconds Skin: Bruise, subcutaneous ecchymosis on right lower leg after fall. Musculoskeletal: No Tenderness to Palpation of Joints or Extremities Spine: Mild tenderness over lower thoracic vertebrae. Neurological: Cranial nerves II-XII grossly intact, DTR 2+/4. No acute focal neurological deficit. Psych/Mental Status: Normal Affect, Appropriate. Assessment & Plan Assessment/Plan (1) Diabetes mellitus, type 2: (2) Demyelinating disease of central nervous system: (3) Urinary tract infection: (4) Altered mental status: PLAN: Plan 51-year-old female was admitted from [facility]. She was found on the floor, staring at the staff, did not respond appropriately. Probably she woke up normal and then was confused. She has chronic headache and takes headache medication not alert to self. History of seizure. Nurses and ECF concerned about medication overdose or possible seizure. 1. Altered mental status with multiple etiology including acute encephalopathy probably metabolic: Patient also has history of seizure and she is on carbamazepine gabapentin. Her home medication list is extended and has other medications like levocarnitine, Botox, tizanidine and talz auto injection for psoriasis. She had MRI brain done which does not show any acute infarct but chronic ischemic changes. Twelve-lead EKG shows sinus bradycardia, LAD RBBB. EEG and neuroconsult ordered. 2. Urinary tract infection?treat patient with IV Rocephin. Patient states mild burning micturition. UA shows nitrite, LE 25. Prelim urine culture shows presumptive E. coli more than 100,000 colonies. Patient also has URI symptoms including cough wheezing and mild shortness of breath: Chest x-ray negative for acute infiltrate. 3. Diabetes melitis type II: Hold oral hypoglycemic agents. Insulin 4. DVT prophylaxis?low molecular weight heparin 5. Hyperkalemia, due to hemolysis, pseudohyperkalemia: K6.5. Repeat potassium is 4.6, bicarb 16 anion gap 10. Glucose is 110. Leukocytosis improved. Mild anemia, hemoglobin dropped from 11.9-9.8. Platelet count 1090K. VBG 7.23/mixed pCO2 38, bicarb 17. Anion gap 10. Bicarb 16. ALT normal, AST 45. ALP 132. UA positive of nitrite, LE 25. Laboratory Results 09/11/24 16:15: WBC 13.6 H, RBC 4.10 L, Hgb 11.9 L, Hct 38.6, MCV 94.1, MCH 29.0, MCHC 30.8 L, RDW Std Deviation 52.1 H, RDW Coeff of He 15.1 H, Plt Count 190, MPV 11.0, Immature Gran % (Auto) 1.300 H, Neut % (Auto) 79.6 H, Lymph % (Auto) 12.2 L, [place] % (Auto) 6.7, Eos % (Auto) 0.0, Baso % (Auto) 0.2, Absolute Neuts (auto) 10.8 H, Absolute Lymphs (auto) 1.65, Nucleated RBC % 0, Sodium 135, Potassium 6.5 H*, Chloride 106, Carbon Dioxide 12.3 L, Anion Gap 17 H, BUN 15, Creatinine 0.79, Estim Creat Clear Calc 86.54, Est GFR (MDRD) Non-Af 86, BUN/Creatinine Ratio 18.9, Glucose 132 H, Lactic Acid < 1.0, Calcium 9.6, Total Bilirubin 0.22, Direct Bilirubin < 0.08, AST 45 H, ALT 20, Alkaline Phosphatase 132 H, Troponin T High Sens 19 H, Total Protein 8.3, Albumin 4.3, Globulin 4.0, Lipase 25 09/11/24 16:54: Ethyl Alcohol < 10.1 09/11/24 17:45: Specimen Type STEVE, Sample Site Not entered, VBG pH 7.23 L, VBG pO2 44 H, VBG HCO3 16 L, VBG Total CO2 17 L, VBG O2 Sat (Calc) 72 H, VBG Base Excess -12 L, POC Mix VBG pCO2 Pt Tmp 38.1 L, O2 Delivery Device Not entered 09/11/24 18:00: Urine Color Yellow, Urine Clarity Clear, Urine pH 6.5, Ur Specific [place] 1.010, Urine Protein 30 H, Urine Glucose (UA) Normal, Urine Ketones Negative, Urine Occult Blood Negative, Urine Nitrite Positive H, Urine Bilirubin Negative, Urine Urobilinogen 1 H, Ur Leukocyte Esterase 25 H, Urine RBC 0 SEEN, Urine WBC 5-10 SEEN, Ur Squamous Epith Cells 0-5 SEEN, Urine Bacteria 1+, Urine Mucus 0 SEEN, Urine Opiates Screen NEGATIVE, U Buprenorphine Qual NEGATIVE, Ur Oxycodone Screen NEGATIVE, Urine Methadone Screen NEGATIVE, Urine Fentanyl Screen NEGATIVE, Ur Barbiturates Screen NEGATIVE, Ur Phencyclidine Scrn NEGATIVE, Ur Amphetamines Screen NEGATIVE, U Benzodiazepines Scrn NEGATIVE, Urine Cocaine Screen NEGATIVE, U Cannabinoids Screen NEGATIVE 09/11/24 18:24: POC Glucose 110 H 09/11/24 21:20: Sodium 139, Potassium 4.6, Chloride 112 H, Carbon Dioxide 15.8 L, Anion Gap 10, BUN 14, Creatinine 0.66 L, Estim Creat Clear Calc 103.58, Est GFR (MDRD) Non-Af 102, BUN/Creatinine Ratio 20.6 H, Glucose 99, Calcium 8.1 09/11/24 22:50: POC Glucose 119 H 09/12/24 05:37: WBC 9.7, RBC 3.40 L, Hgb 9.8 L, Hct 31.1 L, MCV 91.5, MCH 28.8, MCHC 31.5 L, RDW Std Deviation 50.4 H, RDW Coeff of He 15.2 H, Plt Count 190, MPV 11.3, Immature Gran % (Auto) 0.300, Neut % (Auto) 70.5 H, Lymph % (Auto) 21.5, [place] % (Auto) 7.2, Eos % (Auto) 0.2, Baso % (Auto) 0.3, Absolute Neuts (auto) 6.8, Absolute Lymphs (auto) 2.08, Nucleated RBC % 0, Sodium 137, Potassium 4.1, Chloride 107, Carbon Dioxide 16.6 L, Anion Gap 13, BUN 13, Creatinine 0.69 L, Estim Creat Clear Calc 102.00, Est GFR (MDRD) Non-Af 101, BUN/Creatinine Ratio 19.2, Glucose 113 H, Calcium 9.1 09/12/24 08:08: POC Glucose 127 H Clinical Impression(s) from Imaging Studies Brain CT 09/11/24 15:00 IMPRESSION: 1. No acute intracranial process. If clinical concern for acute ischemia, MRI is a more sensitive exam. 2. Chronic small vessel ischemic disease. 3. Atrophy. Reading Location: [facility] Chest X-Ray 09/11/24 16:30 IMPRESSION: No acute cardiopulmonary process. Reading Location: [facility] Brain MRI 09/12/24 09:30 IMPRESSION: 1. No acute intracranial process is seen. 2. Gsve-[id number] generalized cerebral atrophy. 3. Bilateral cerebral and pontine white matter changes, consistent with chronic ischemic changes of small-vessel disease. 4. Mild chronic appearing paranasal sinus disease. Reading Location: [id number] Charges/Coding Visit Charges Inpatient E&M: 38783 Subs Hosp L2
--- NOTE | 2024-09-12 09:30 | MRI_ITS ---
PROCEDURE: BRAIN WITHOUT CONTRAST REASON FOR EXAM: Altered mental status. TECHNIQUE: Multiplanar, multisequence MRI of the brain without intravenous gadolinium-based contrast. COMPARISON: Head CT 09/12/2019. FINDINGS: Diffusion-weighted images demonstrate no area of diffusion restriction. No intracranial mass or mass effect is seen. Oljp-[id number] generalized cerebral atrophy is seen, with symmetric ventricular enlargement consistent with the degree of atrophy. Mild bilateral cerebral and pontine white matter changes are seen, predominantly periventricular, most consistent with chronic ischemic changes of small-vessel disease. No extra-axial fluid collection is noted. No orbital pathology is seen. Internal auditory canals appear symmetric and within the normal range. Mild mucosal thickening is seen of the bilateral ethmoid and maxillary sinuses. No air-fluid level is seen. The remaining paranasal sinuses and mastoid air cells appear clear. MRI/Brain without Contrast IMPRESSION: 1. No acute intracranial process is seen. 2. Vvpo-[id number] generalized cerebral atrophy. 3. Bilateral cerebral and pontine white matter changes, consistent with chronic ischemic changes of small-vessel disease. 4. Mild chronic appearing paranasal sinus disease. Reading Location: [id number]
[2024-09-12 11:42] LABS: Bedside Glucose 140 mg/dL (74-106)
[2024-09-12] MEDS: Glucerna Shake 120 ML LIQUID PO (12:29)
[2024-09-12] MEDS: guaiFENesin/D-Methorphan TAB.SR.12H 2 TABLET PO ×2 (13:14→20:45)
[2024-09-12] MEDS: Azithromycin 250 MG Tablet 500 MG PO (13:14)
[2024-09-12] MEDS: Insulin Lispro 100 UNIT/ML INSULN.PEN SC (16:46)
[2024-09-12 17:15] LABS: Bedside Glucose 152 mg/dL (74-106)
[2024-09-12] MEDS: Ipratropium/Albuterol Sulfate 3 ML AMPUL.NEB INHALATION (19:40)
[2024-09-12] MEDS: carBAMazepine 200 MG Tablet 300 MG PO (20:45)
[2024-09-12] MEDS: Atorvastatin Calcium 80 MG Tablet PO (20:45)
[2024-09-12] MEDS: Ceftriaxone 1 GM/50 ML BAG IV (20:59)
[2024-09-12 21:20] LABS: Bedside Glucose 156 mg/dL (74-106)
[2024-09-13] VITALS (7 sets, daily range): BP systolic 122–145; BP diastolic 66–75; PULSE 64–72; RESP 16–18; TEMP 36.3–36.8; O2SAT 95–99
[2024-09-13] MEDS: Midodrine HCl 5 MG Tablet PO (04:51)
[2024-09-13 08:57] LABS: Bedside Glucose 134 mg/dL (74-106)
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
[2024-09-13] MEDS: Insulin Glargine-YFGN 100 UNIT/ML Pen 30 UNIT SC (09:43)
[2024-09-13] MEDS: guaiFENesin/D-Methorphan TAB.SR.12H 2 TABLET PO ×2 (09:45→21:17)
[2024-09-13] MEDS: carBAMazepine 200 MG Tablet PO ×3 (09:45→21:17)
[2024-09-13] MEDS: Enoxaparin 40 MG/0.4 ML Syringe SC (09:45)
[2024-09-13] MEDS: DULoxetine Hcl 60 MG Capsule PO (09:45)
[2024-09-13] MEDS: Nystatin Powder 15gm Bottle 1 APPLIC TOPICAL ×2 (09:46→21:17)
[2024-09-13] MEDS: Pantoprazole Sodium 40 MG Tablet PO (09:46)
--- NOTE | 2024-09-13 10:21 | CASEMGMT ---
Discharge Planning Updates sent to Justyn Mccall. Michelle Pereyra DC Planning Asst.
[2024-09-13] MEDS: Topiramate 200 MG Tablet PO ×2 (12:06→21:18)
[2024-09-13] MEDS: Acetaminophen 500 MG Tablet 1000 MG PO ×2 (12:06→20:11)
[2024-09-13] MEDS: Insulin Lispro 100 UNIT/ML INSULN.PEN SC ×3 (12:07→21:21)
[2024-09-13] MEDS: Glucerna Shake 120 ML LIQUID PO ×2 (12:13→16:44)
[2024-09-13 12:28] LABS: Bedside Glucose 187 mg/dL (74-106)
--- NOTE | 2024-09-13 12:54 | CASEMGMT ---
JAYA met with patient and confirmed her plan is to return to [facility] at d/c. Patient also said that her sister is moving to [place] from [place] and they are eventually going to get an apartment together. Patient said she will need transportation back to [facility]. Joselin ALICIA
--- NOTE | 2024-09-13 16:47 | PCM.PN.HOSP ---
Reason for Visit Reason for Visit: Diagnoses Type 2 diabetes mellitus without complications (09/11/24) Demyelinating disease of central nervous system, unspecified (09/11/24) Urinary tract infection, site not specified (09/11/24) Altered mental status, unspecified (09/11/24) Objective Data Objective Data Vital Signs: Vital Signs Temp Pulse Resp BP Pulse Ox O2 Del Method 97.4 F L 66 18 136/66 H 98 Room Air 09/13/24 15:21 09/13/24 15:21 09/13/24 15:21 09/13/24 15:21 09/13/24 15:21 09/13/24 15:21 Oxygen Delivery Method Room Air Weight: 204 lb 9.423 oz Body Mass Index (BMI) 33.0 Intake & Output: Intake and Output for Last 24 Hours 09/11/24 09/12/24 09/13/24 23:59 23:59 23:59 Intake Total 960 / 1400 920 / 920 Balance 960 / 1400 920 / 920 Lab / Micro Data 09/12/24 05:37 09/12/24 05:37 Labs: Laboratory Results - last 24 hr 09/12/24 16:44: POC Glucose 152 H 09/12/24 20:58: POC Glucose 156 H 09/13/24 08:27: POC Glucose 134 H 09/13/24 11:50: POC Glucose 187 H Physical Exam Narrative Seen and examined Patient is more awake and alert. Her speech output is also more fluent. Patient still emotionally labile and was tearful and mentioned that she is not getting Topamax. Initially Topamax was missing on the home medication list but resumed today. Discussed with the nursing staff. Seen by neurologist. Patient also had EEG done in the morning. Physical exam General: Alert, Oriented x3, Cooperative, more fluent speech. HEENT: Atraumatic, PERRLA, EOMI, Normocephalic Oral: No Gingival or Mucosal Lesions/ Ulcerations Neck: Supple, No JVD, Negative Carotid Bruits Chest wall/Lungs: Air entry diminished in bilateral lung bases. Lungs clear. Cardiovascular: Regular rate, Regular Rhythm, Normal S1, Normal S2, No M/G/R Abdomen: Bowel Sounds Present, Soft, Non Tender, Non-Distended : No dysuria. No renal angle tenderness. No suprapubic tenderness. Extremities: No edema, Capillary Refill Less than 3 Seconds Skin: Bruise, subcutaneous ecchymosis on right lower leg after fall. Musculoskeletal: No Tenderness to Palpation of Joints or Extremities Spine: Mild tenderness over lower thoracic vertebrae. Neurological: Cranial nerves II-XII grossly intact, DTR 2+/4. No acute focal neurological deficit. Psych/Mental Status: Emotionally labile. Assessment & Plan Assessment/Plan (1) Diabetes mellitus, type 2: (2) Demyelinating disease of central nervous system: (3) Urinary tract infection: (4) Altered mental status: PLAN: Plan 51-year-old female was admitted from [facility]. She was found on the floor, staring at the staff, did not respond appropriately. Probably she woke up normal and then was confused. She has chronic headache and takes headache medication not alert to self. History of seizure. Nurses and ECF concerned about medication overdose or possible seizure. 1. Altered mental status with multiple etiology including acute encephalopathy probably metabolic: Patient also has history of seizure and she is on carbamazepine gabapentin. Her home medication list is extended and has other medications like levocarnitine, Botox, tizanidine and talz auto injection for psoriasis. She had MRI brain done which does not show any acute infarct but chronic ischemic changes. Twelve-lead EKG shows sinus bradycardia, LAD RBBB. EEG and neuroconsult ordered. 3: Patient was evaluated by neurologist and discussed with Dr. Lebron. 2. Urinary tract infection?treat patient with IV Rocephin. Patient states mild burning micturition. UA shows nitrite, LE 25. urine culture from 04/2024 shows presumptive E. coli more than 100,000 colonies. Patient also has URI symptoms including cough wheezing and mild shortness of breath: Chest x-ray negative for acute infiltrate. 3: Repeat UA and urine culture ordered. Given concern for UTI, she recommended Klonopin bridge to stabilize her seizure threshold while recovering from UTI, Klonopin 0.5 mg twice daily for 3 days. History of chronic seizure disorder/epilepsy: Continue carbamazepine and Topamax for seizure. 3. Diabetes melitis type II: Hold oral hypoglycemic agents. Insulin 4. DVT prophylaxis?low molecular weight heparin 5. Hyperkalemia, due to hemolysis, pseudohyperkalemia: K6.5. Repeat potassium is 4.6, bicarb 16 anion gap 10. Glucose is 110. Leukocytosis improved. Mild anemia, hemoglobin dropped from 11.9-9.8. Platelet count 1090K. VBG 7.23/mixed pCO2 38, bicarb 17. Anion gap 10. Bicarb 16. ALT normal, AST 45. ALP 132. UA positive of nitrite, LE 25. Laboratory Results 09/12/24 16:44: POC Glucose 152 H 09/12/24 20:58: POC Glucose 156 H 09/13/24 08:27: POC Glucose 134 H 09/13/24 11:50: POC Glucose 187 H Clinical Impression(s) from Imaging Studies Brain CT 09/11/24 15:00 IMPRESSION: 1. No acute intracranial process. If clinical concern for acute ischemia, MRI is a more sensitive exam. 2. Chronic small vessel ischemic disease. 3. Atrophy. Reading Location: [facility] Chest X-Ray 09/11/24 16:30 IMPRESSION: No acute cardiopulmonary process. Reading Location: [facility] Brain MRI 09/12/24 09:30 IMPRESSION: 1. No acute intracranial process is seen. 2. [id number]-[id number]-tmtpdawm generalized cerebral atrophy. 3. Bilateral cerebral and pontine white matter changes, consistent with chronic ischemic changes of small-vessel disease. 4. Mild chronic appearing paranasal sinus disease. Reading Location: [id number] Charges/Coding Visit Charges Inpatient E&M: 35678 Subs Hosp L2
[2024-09-13 17:08] LABS: Bedside Glucose 174 mg/dL (74-106)
[2024-09-13] MEDS: clonazePAM 0.5 MG Tablet PO (17:15)
[2024-09-13] MEDS: Ipratropium/Albuterol Sulfate 3 ML AMPUL.NEB INHALATION (19:48)
[2024-09-13] MEDS: Budesonide Respules 0.5 MG/2 ML AMPUL.NEB. INHALATION (19:48)
[2024-09-13] MEDS: Atorvastatin Calcium 80 MG Tablet PO (21:17)
[2024-09-13] MEDS: carBAMazepine 200 MG Tablet 300 MG PO (21:19)
[2024-09-13 23:50] LABS: Bedside Glucose 213 mg/dL (74-106)
[2024-09-14] MEDS: Ceftriaxone 1 GM/50 ML BAG IV (00:29)
[2024-09-14 03:35] VITALS: BP 155/85; PULSE 69; RESP 16; TEMP 36.7; O2SAT 97
[2024-09-14] MEDS: clonazePAM 0.5 MG Tablet PO (05:06)
[2024-09-14] MEDS: Topiramate 200 MG Tablet PO (05:06)
[2024-09-14 05:07] LABS: Absolute Lymphocyte Count 1.95 X10^3/uL (0.83-4.51); Absolute Neutrophil Count 4.1 X10^3/uL (2.0-7.7); Basophil# 0.03 X10^3/uL; Basophil% 0.5 % (0-1); Eosinophil# 0.04 X10^3/uL; Eosinophils% 0.6 % (0-5); Hematocrit 29.3 % (37-47); Hemoglobin 9.5 g/dL (12.0-15.0); Lymphocyte # 1.95 X10^3/ul (0.83-4.51); Lymphocyte % 29.3 % (19-41); Mean Corp Hgb Conc 32.4 g/dL (32-36); Mean Corpuscular Hgb 29.1 pg (27.0-32.0); Mean Corpuscular Volume 89.9 fL (81-99); Mean Platelet Vol. 10.4 fl (6.2-12.0); Monocyte# 0.48 X10^3/uL; Monocyte% 7.2 % (0-10); NRBC Flagged by Analyzer 0 % (0-5); Neutrophil # 4.07 X10^3/uL (2.7-7.7); Neutrophil % 61.2 % (47-70); Platelet Count 207 K/mm3 (150-450); RBC Distribution Width CV 14.6 % (11.6-14.6); RBC Distribution Width SD 47.8 fl (35.1-43.9); Red Blood Count 3.26 M/mm3 (4.2-5.4); White Blood Count 6.7 K/mm3 (4.4-11.0)
[2024-09-14 05:15] LABS: Bacteria 0 SEEN /hpf (None Seen); Mucous, Urine 0 SEEN /hpf (<or=2+)
[2024-09-14 05:48] LABS: Glucose, Dipstick Normal (Normal); Ketone-Dipstick Negative (Negative); Leukocyte Esterase-Dipstick 25 /ul (Negative); Nitrite-Dipstick Negative (Negative); Occult Blood-Urine Negative /ul (Negative); Protein-Dipstick 15 mg/dl (Negative); Urine Bilirubin Dipstick Negative (Negative); Urine Urobilinogen Normal (Normal)
[2024-09-14 05:54] LABS: Anion Gap 12 (5-15); BUN 14 mg/dL (4-19); Calcium,Total 8.8 mg/dL (7.6-11.0); Carbon Dioxide 19.4 mmol/L (21.0-32.0); Chloride 106 mmol/L (98-108); Creatinine, Serum 0.73 mg/dL (0.70-1.20); EST Glomerular Filtration Rate 95 (>60); Estimated Creatinine Clearance 96.41 ml/min (50-250); Glucose 175 mg/dL (70-99); Potassium 3.7 mmol/L (3.3-5.1); Sodium Level 137 mmol/L (133-145)
[2024-09-14 07:01] LABS: Color, Urine Yellow (Yellow); Urine Clarity Clear (Clear)
[2024-09-14 07:20] VITALS: PULSE 74; RESP 20; O2SAT 96
[2024-09-14] MEDS: Ipratropium/Albuterol Sulfate 3 ML AMPUL.NEB INHALATION (07:20)
[2024-09-14] MEDS: Budesonide Respules 0.5 MG/2 ML AMPUL.NEB. INHALATION (07:20)
[2024-09-14 07:29] LABS: Squamous Epithelial Cells - UA 0-5 SEEN /hpf (5-10); White Blood Cells 0-5 SEEN /hpf (0-5)
[2024-09-14 08:09] LABS: Bedside Glucose 175 mg/dL (74-106)
[2024-09-14 09:30] VITALS: BP 134/67; PULSE 72; RESP 18; TEMP 36.4; O2SAT 99
[2024-09-14 10:00] VITALS: BP 134/67; PULSE 64; RESP 18; TEMP 36.4; O2SAT 97
--- NOTE | 2024-09-14 10:01 | TREXTCAR_ITS ---
Diet Diet Order/Speech Therapy: 09/12/24 15:40 Diet: Cardiac: Calorie-Controlled Food consistency:: Regular Liquid Consistency:: Regular/Thin Dietary Modifications:: Consistent Carbohydrate How many daily calories?: 1800 calorie Routine Orders/Code Status Suppository Type: Dulcolax 10mg Suppository Frequency: Daily PRN DC O2, CPAP, BIPAP needs Home O2 Discharge instructions: No Therapies Extremity Affected:: Bilateral Lower Physical Therapy: Eval and Treat Occupational Therapy: Eval and Treat Speech Therapy: Eval and Treat Problem/Diagnosis (1) Diabetes mellitus, type 2: Status: Acute Code(s): E11.9 - Type 2 diabetes mellitus without complications (2) Demyelinating disease of central nervous system: Status: Acute Code(s): G37.9 - Demyelinating disease of central nervous system, unspecified (3) Urinary tract infection: Status: Acute Code(s): N39.0 - Urinary tract infection, site not specified (4) Altered mental status: Status: Acute Code(s): R41.82 - Altered mental status, unspecified Plan 51-year-old female was admitted from [facility]. She was found on the floor, staring at the staff, did not respond appropriately. Probably she woke up normal and then was confused. She has chronic headache and takes headache medication not alert to self. History of seizure. Nurses and ECF concerned about medication overdose or possible seizure. 1. Altered mental status with multiple etiology including acute encephalopathy probably metabolic: Patient also has history of seizure and she is on carbamazepine gabapentin. Her home medication list is extended and has other medications like levocarnitine, Botox, tizanidine and talz auto injection for psoriasis. She had MRI brain done which does not show any acute infarct but chronic ischemic changes. Twelve-lead EKG shows sinus bradycardia, LAD RBBB. EEG and neuroconsult ordered. 35: Patient was evaluated by neurologist and discussed with Dr. Lebron. 2. Urinary tract infection?treat patient with IV Rocephin. Patient states mild burning micturition. UA shows nitrite, LE 25. urine culture from 04/2024 shows presumptive E. coli more than 100,000 colonies. Patient also has URI symptoms including cough wheezing and mild shortness of breath: Chest x-ray negative for acute infiltrate. 35: Repeat UA and urine culture ordered. Given concern for UTI, she recommended Klonopin bridge to stabilize her seizure threshold while recovering from UTI, Klonopin 0.5 mg twice daily for 3 days. History of chronic seizure disorder/epilepsy: Continue carbamazepine and Topamax for seizure. 3. Diabetes melitis type II: Hold oral hypoglycemic agents. Insulin 4. DVT prophylaxis?low molecular weight heparin 5. Hyperkalemia, due to hemolysis, pseudohyperkalemia: K6.5. Repeat potassium is 4.6, bicarb 16 anion gap 10. Glucose is 110. Leukocytosis improved. Mild anemia, hemoglobin dropped from 11.9-9.8. Platelet count 1090K. VBG 7.23/mixed pCO2 38, bicarb 17. Anion gap 10. Bicarb 16. ALT normal, AST 45. ALP 132. UA positive of nitrite, LE 25. Laboratory Results 09/12/24 16:44: POC Glucose 152 H 09/12/24 20:58: POC Glucose 156 H 09/13/24 08:27: POC Glucose 134 H 09/13/24 11:50: POC Glucose 187 H Clinical Impression(s) from Imaging Studies Brain CT 09/11/24 15:00 IMPRESSION: 1. No acute intracranial process. If clinical concern for acute ischemia, MRI is a more sensitive exam. 2. Chronic small vessel ischemic disease. 3. Atrophy. Reading Location: [facility] Chest X-Ray 09/11/24 16:30 IMPRESSION: No acute cardiopulmonary process. Reading Location: [facility] Brain MRI 09/12/24 09:30 IMPRESSION: 1. No acute intracranial process is seen. 2. Bkly-bd-iydvemla generalized cerebral atrophy. 3. Bilateral cerebral and pontine white matter changes, consistent with chronic ischemic changes of small-vessel disease. 4. Mild chronic appearing paranasal sinus disease. Reading Location: [id number] Allergies/Procedures Done in Hospital Allergies adhesive tape Allergy (Intermediate, Verified 08/19/24 15:53) Rash latex Allergy (Verified 08/19/24 15:53) Rash levofloxacin (From Levaquin) Allergy (Verified 08/19/24 15:53) Hives ondansetron (From Zofran) Allergy (Verified 08/19/24 15:53) Hives nalbuphine (From Nubain) Adverse Reaction (Verified 08/19/24 15:53) Other Type of Care/Length of Stay Estimated LOS: Convalescent Care Less Than 30 days Type of Care Needed: Skilled Rehab Potential: Good Prognosis: Good Additional Orders/Day of Discharge Day of Discharge: 09/14/24 Dietary and Speech Recommendations Dietitian Recommendations/Changes: Will change diet to 1800 calorie/consistent carbohydrate; cardiac. ONS not needed at this time. Discharge Plan Admission Admit Date/Time: 09/11/24 21:28 Primary Reason for Your Visit: Altered mental status Attending Provider: Forrest Pascal Primary Care Provider: Wendy Sosa Consulting Providers: Luis Fitch; Luis Fernando Fuller; Niecy Shah; Rocio Sarmiento; John Kurtz; Monica Lebron; Carlo Ahumada; Kim Lomeli; Pao Beckham; Wilfred Brown; Nena Cavazos; Bib Duncan; Quinten Chang; Julius Patton; Willis Jovel; Rajesh Heath; Sedrick Michelle; Naman Adames; Khang Birmingham; Abby Barnes; Lynn Fu; Kristy Ferrer; Navneet Reyna; Mazin Ortiz; KEM BE; Richard Jackson; Karoline Meyer Instructions Additional Instructions / Restrictions: Follow with outpatient neurologist Discharge Orders/Prescriptions Prescriptions: New clonazepam 0.5 mg Tablet 0.5 mg PO Q12H 2 Days Qty: 4 0RF Continued aluminum-magnesium hydroxide 225-200 mg/5 mL suspension 30 ml PO Q4H PRN Cepacol Sore Throat (monae-men) 15-2.6 mg lozenge 1 nasreen mucous membrane Q2H PRN (Reason: sore throat) cephalexin 250 mg capsule 250 mg PO QHS cranberry fruit 450 mg tablet 450 mg PO TID Rx Instructions: administer with meals Culturelle 10 billion cell capsule 1 cap PO DAILY estradiol 0.01 % (0.1 mg/gram) cream 1 g vaginal 2XW Rx Instructions: 10% cream loperamide 2 mg tablet 2 mg PO Q12H PRN (Reason: diarrhea) melatonin 12 mg tablet 12 mg PO QHS magnesium hydroxide [Milk of Magnesia] 400 mg/5 mL suspension 30 ml PO PRN PRN (Reason: constipation) polyethylene glycol 3350 [Miralax] 17 gram/dose powder 17 g PO QDAY PRN (Reason: constipation) Taltz Autoinjector 80 mg/mL auto-injector 80 mg subcut QMONTH triamcinolone acetonide 0.1 % cream 1 applic topical QDAY acetaminophen 500 mg capsule 1,000 mg PO Q6H PRN (Reason: fever or pain) ascorbic acid (vitamin C) 500 mg tablet 500 mg PO QDAY cetirizine [Zyrtec] 10 mg tablet 10 mg PO QDAY tizanidine 2 mg tablet 1 mg PO Q8H PRN (Reason: muscle spasm) gabapentin 300 mg capsule 300 mg PO BID Qty: 60 3RF Rx Instructions: 30 day supply. RYAN: [id number] Patient is to continue gabapentin 800mg nightly. Discontinue gabapentin 100mg twice daily. Botox 100 unit recon soln 200 unit IM ONCE Qty: 2 0RF levocarnitine 330 mg tablet 330 mg PO BID Qty: 60 3RF Rx Instructions: must administer with a meal/food atorvastatin 80 mg tablet 80 mg PO QHS Patient Comments: TAKE ONE TABLET BY MOUTH DAILY AT 9PM AT BEDTIME omeprazole 40 mg capsule,delayed release(DR/EC) 40 mg PO DAILY Patient Comments: TAKE ONE CAPSULE BY MOUTH DAILY AT 9AM gabapentin 800 mg tablet 800 mg PO QHS Patient Comments: TAKE ONE TABLET BY MOUTH DAILY AT 9PM AT BEDTIME docusate sodium 100 mg Capsule 100 mg PO BID diclofenac sodium 75 mg tablet,delayed release (DR/EC) 75 mg PO BID PRN (Reason: pain) Patient Comments: TAKE ONE TABLET BY MOUTH TWICE DAILY NEEDED (VIAL) albuterol sulfate 90 mcg/actuation HFA aerosol inhaler 2 puff INHALATION Q4H PRN (Reason: Wheezing) Patient Comments: INHALE TWO PUFFS BY MOUTH DIRECTED EVERY 6 HOURS NEEDED FOR WHEEZING OR FOR SHORTNESS OF BREATH (BULK) (DME) [employer] Es 2 Sensor Kit MISCELLANEOUS Patient Comments: apply 1 SENSOR to back OF UPPER ARM REMOVE AND REPLACE every 14 d... (REFER TO PRESCRIPTION NOTES). (DME) FreeStyle Es 2 [facility] MISCELLANEOUS Patient Comments: USE CONTINUOUSLY TO MONITOR BLOOD SUGARS DAILY (DME) Droplet Insulin Syr(half unit) 0.5 mL 31 gauge x 5/16 syringe MISCELLANEOUS Patient Comments: USE TO INJECT INSULIN UNDER THE SKIN EVERY MEAL AND AT BEDTIME PER SLIDING SCALE ergocalciferol (vitamin D2) 1,250 mcg (50,000 unit) capsule 1,250 mcg PO QWEEK Rx Instructions: takes on Wednesday promethazine 25 mg tablet 25 mg PO Q6H PRN PRN (Reason: Nausea) Qty: 12 0RF duloxetine 60 mg capsule,delayed release(DR/EC) 60 mg PO QDAY Patient Comments: TAKE ONE CAPSULE BY MOUTH TWICE DAILY insulin glargine 100 unit/mL (3 mL) insulin pen See Rx Instructions SUBCUT .COMPLEX Rx Instructions: subcutaneously 30 units qam Nuedexta 20-10 mg capsule 1 cap PO BID Ubrelvy 100 mg tablet 100 mg PO .COMPLEX PRN (Reason: MIGRAINE) Rx Instructions: TAKE 1 TABLET BY MOUTH AT ONSET OF MIGRAINE. IF NO IMPROVEMENT WITHIN 2 HRS TAKE 1 TABLET. DO NOT EXCEED 2 TABS IN 24 HOURS furosemide [Lasix] 20 mg tablet 20 mg PO DAILY Ozempic 0.25 mg or 0.5 mg (2 mg/3 mL) pen injector 0.25 mg SUBCUT QWEEK Patient Comments: INJECT 0.25 MG SUBCUTANEOUSLY ONCE A WEEK Rx Instructions: WEDNESDAY Emgality Pen 120 mg/mL pen injector 120 mg SUBCUT .COMPLEX Patient Comments: INJECT 1 ML (120MG TOTAL) UNDER THE SKIN EVERY 28 DAYS (BULK) on the Rx Instructions: 120 mg subcutaneously Q28D; insulin lispro 100 unit/mL solution 3 unit subcut .COMPLEX Rx Instructions: 3 units subcutaneously achs; INJECT PER SLIDING SCALE THREE TIMES DAILY FOLLOWS ONE UNIT IF BG LESS THAN 110, TWO UNITS FOR BG 111-150, FOUR UNITS FOR BG 151-200, SEVEN UNITS FOR BG 201-250, 10 UNITS FOR BG 251-300, 13 UNITS FOR BG 301-350, 16 UNITS FOR BG 351-400, CALL MD IF BG OVER 400 (MAX 48 UNITS PER DAY) meclizine 25 mg tablet 25 mg PO DAILY PRN Patient Comments: TAKE ONE TABLET BY MOUTH BID nystatin [Nyamyc] 100,000 unit/gram powder 1 applic TOPICAL BID Patient Comments: apply to affected area twice a day if needed topiramate 200 mg tablet 200 mg PO TID ipratropium-albuterol 0.5 mg-3 mg(2.5 mg base)/3 mL solution for nebulization 3 ml inhalation Q6H PRN (Reason: shortness of breath or wheezing) potassium chloride 10 mEq tablet extended release 40 meq PO DAILY carbamazepine [Tegretol] 200 mg tablet 200 mg PO 0900,1700 carbamazepine [Tegretol] 200 mg tablet 300 mg PO QHS Arnuity Ellipta 200 mcg/actuation blister with device 1 inh inhalation DAILY midodrine 5 mg tablet 5 mg PO TID Rx Instructions: hold if bp >130/80 loratadine [Claritin] 10 mg tablet 10 mg PO DAILY hydrocodone-acetaminophen 5-325 mg tablet 1 tab PO BID Held lorazepam 0.5 mg tablet 0.5 mg PO QHS PRN Hold Instructions: Hold it while patient is on Klonopin Discontinued guaifenesin 100 mg/5 mL liquid 200 mg PO Q4H PRN (Reason: cough, congestion) ibuprofen 600 mg tablet 600 mg PO Q6H PRN PRN (Reason: pain) Qty: 20 0RF ibuprofen 600 mg tablet 600 mg PO Q6H PRN PRN (Reason: pain) Qty: 20 0RF Referrals / Follow Up: Wendy Sosa MD [Primary Care Provider] - Vicente Santoro MD [Non-Staff -Ordering Privileges] - Within 1 Month Disposition Disposition (needs filled in before D/C Order can be placed): [facility]
[2024-09-14] MEDS: Insulin Lispro 100 UNIT/ML INSULN.PEN SC ×2 (10:49→12:16)
[2024-09-14] MEDS: Insulin Glargine-YFGN 100 UNIT/ML Pen 30 UNIT SC (10:49)
[2024-09-14] MEDS: Acetaminophen 500 MG Tablet 1000 MG PO (10:50)
[2024-09-14] MEDS: carBAMazepine 200 MG Tablet PO (10:52)
[2024-09-14] MEDS: Pantoprazole Sodium 40 MG Tablet PO (10:53)
[2024-09-14] MEDS: DULoxetine Hcl 60 MG Capsule PO (10:53)
[2024-09-14] MEDS: Nystatin Powder 15gm Bottle 1 APPLIC TOPICAL (10:53)
[2024-09-14] MEDS: Enoxaparin 40 MG/0.4 ML Syringe SC (10:53)
[2024-09-14] MEDS: guaiFENesin/D-Methorphan TAB.SR.12H 2 TABLET PO (10:53)
--- NOTE | 2024-09-14 11:10 | PCM.DC.SUM ---
Providers Date of Admission: 09/11/24 Date of Discharge: 09/14/24 Primary Care Physician: Dr. Wendy Sosa MD Consultations 09/12/24 15:41 Consult: Tele-Neurology Routine Consulting Provider: [facility] Reason for Consult: AMS/confusion, MRI no acute infarct EMERGENT Consult: No MD Notified: Yes Date Notified: 09/12/24 Time Notified: 15:41 Method of Notification: Text Nursing Unit Staff Notify [facility] of Tele-Neurology Consult: Yes Reason For Visit: ALTERED MENTAL STATUS, UTI Diagnosis Discharge Diagnosis (1) Diabetes mellitus, type 2: Status: Acute Code(s): E11.9 - Type 2 diabetes mellitus without complications (2) Demyelinating disease of central nervous system: Status: Acute Code(s): G37.9 - Demyelinating disease of central nervous system, unspecified (3) Urinary tract infection: Status: Acute Code(s): N39.0 - Urinary tract infection, site not specified (4) Altered mental status: Status: Acute Code(s): R41.82 - Altered mental status, unspecified Plan 51-year-old female was admitted from [facility]. She was found on the floor, staring at the staff, did not respond appropriately. Probably she woke up normal and then was confused. She has chronic headache and takes headache medication not alert to self. History of seizure. Nurses and ECF concerned about medication overdose or possible seizure. 1. Altered mental status with multiple etiology including acute encephalopathy probably metabolic: Patient also has history of seizure and she is on carbamazepine gabapentin. Her home medication list is extended and has other medications like levocarnitine, Botox, tizanidine and talz auto injection for psoriasis. She had MRI brain done which does not show any acute infarct but chronic ischemic changes. Twelve-lead EKG shows sinus bradycardia, LAD RBBB. EEG and neuroconsult ordered. 09/13: Patient was evaluated by neurologist and discussed with Dr. Lebron. 09/14: UA was negative for UTI. Patient does not have burning micturition. She is back to her normal mental function. 2. Urinary tract infection ruled out?treat patient with IV Rocephin. Patient states mild burning micturition. UA shows nitrite, LE 25. urine culture from 04/2024 shows presumptive E. coli more than 100,000 colonies. Patient also has URI symptoms including cough wheezing and mild shortness of breath: Chest x-ray negative for acute infiltrate. 09/13: Repeat UA and urine culture ordered. Given concern for UTI, she recommended Klonopin bridge to stabilize her seizure threshold while recovering from UTI, Klonopin 0.5 mg twice daily for 3 days. 09/14: UA was negative for UTI. LE 25, WBC 0-5 cells, nitrite negative. Patient had 3 days of IV ceftriaxone empirically. UTI ruled out Patient given prescription for Klonopin as recommended by neurologist History of chronic seizure disorder/epilepsy: Continue carbamazepine and Topamax for seizure. 3. Diabetes melitis type II: Hold oral hypoglycemic agents. Insulin 4. DVT prophylaxis?low molecular weight heparin 5. Hyperkalemia, due to hemolysis, pseudohyperkalemia: K6.5. Repeat potassium is 4.6, bicarb 16 anion gap 10. Glucose is 110. Leukocytosis improved. Mild anemia, hemoglobin dropped from 11.9-9.8. Platelet count 1090K. VBG 7.23/mixed pCO2 38, bicarb 17. Anion gap 10. Bicarb 16. ALT normal, AST 45. ALP 132. UA positive of nitrite, LE 25. Discharge medication reconciliation done. Discharge follow-up instructions completed. Discharge process discussed with the patient and all questions were answered to patient's satisfaction. Follow with PCP in 1 to 2 weeks Total time spent, exact 35 minutes on discharge meds reconciliation, examination, coordination of care with nurses and ancillary staff, review of imaging and blood test and discussion with the patient on follow-up instructions. Clinical Impression(s) from Imaging Studies Brain CT 09/11/24 15:00 IMPRESSION: 1. No acute intracranial process. If clinical concern for acute ischemia, MRI is a more sensitive exam. 2. Chronic small vessel ischemic disease. 3. Atrophy. Reading Location: [facility] Chest X-Ray 09/11/24 16:30 IMPRESSION: No acute cardiopulmonary process. Reading Location: [facility] Brain MRI 09/12/24 09:30 IMPRESSION: 1. No acute intracranial process is seen. 2. [id number]-[id number] generalized cerebral atrophy. 3. Bilateral cerebral and pontine white matter changes, consistent with chronic ischemic changes of small-vessel disease. 4. Mild chronic appearing paranasal sinus disease. Reading Location: [id number] Laboratory Results 09/13/24 16:38: POC Glucose 174 H 09/13/24 21:15: POC Glucose 213 H 09/14/24 04:41: WBC 6.7, RBC 3.26 L, Hgb 9.5 L, Hct 29.3 L, MCV 89.9, MCH 29.1, MCHC 32.4, RDW Std Deviation 47.8 H, RDW Coeff of He 14.6, Plt Count 207, MPV 10.4, Immature Gran % (Auto) 1.200 H, Neut % (Auto) 61.2, Lymph % (Auto) 29.3, [place] % (Auto) 7.2, Eos % (Auto) 0.6, Baso % (Auto) 0.5, Absolute Neuts (auto) 4.1, Absolute Lymphs (auto) 1.95, Nucleated RBC % 0, Sodium 137, Potassium 3.7, Chloride 106, Carbon Dioxide 19.4 L, Anion Gap 12, BUN 14, Creatinine 0.73, Estim Creat Clear Calc 96.41, Est GFR (MDRD) Non-Af 95, BUN/Creatinine Ratio 19.0, Glucose 175 H, Calcium 8.8 09/14/24 04:50: Urine Color Yellow, Urine Clarity Clear, Urine pH 7.0, Ur Specific [place] 1.010, Urine Protein 15 H, Urine Glucose (UA) Normal, Urine Ketones Negative, Urine Occult Blood Negative, Urine Nitrite Negative, Urine Bilirubin Negative, Urine Urobilinogen Normal, Ur Leukocyte Esterase 25 H, Urine RBC Pending, Urine WBC 0-5 SEEN, Ur Squamous Epith Cells 0-5 SEEN, Urine Bacteria 0 SEEN, Urine Mucus 0 SEEN 09/14/24 07:51: POC Glucose 175 H 09/14/24 12:15: POC Glucose 235 H Medications at Discharge Home Medications albuterol sulfate 90 mcg/actuation aerosol inhaler 2 puff inhalation Q4H PRN Wheezing 09/03/22 atorvastatin 80 mg tablet 80 mg PO QHS cholesterol 09/03/22 diclofenac sodium 75 mg tablet,delayed release 75 mg PO BID PRN pain 09/03/22 docusate sodium 100 mg capsule 100 mg PO BID CONSTIPATION 09/03/22 flash glucose scanning reader (FreeStyle Es 2 [place]) 09/03/22 flash glucose sensor (FreeStyle Es 2 Sensor kit) 09/03/22 gabapentin 800 mg tablet 800 mg PO QHS nerve pain 09/03/22 insulin syr/ndl U100 half shirley 0.5 mL 31 gauge x 5/16 (Droplet Insulin Syringe (half unit)) 09/03/22 omeprazole 40 mg capsule,delayed release 40 mg PO DAILY GERD 09/03/22 promethazine 25 mg tablet 25 mg PO Q6H PRN PRN Nausea #12 TABLETS 11/08/22 dextromethorphan 20 mg-quinidine 10 mg capsule (Nuedexta) 1 cap PO BID DEPRESSION 02/06/23 ubrogepant 100 mg tablet (Ubrelvy) 100 mg PO .COMPLEX PRN MIGRAINE 02/06/23 furosemide 20 mg tablet (Lasix) 20 mg PO DAILY EDEMA 07/29/23 semaglutide 0.25 mg or 0.5 mg (2 mg/3 mL) subcutaneous pen injector (Ozempic) 0.25 mg subcut QWEEK diabetes 07/29/23 galcanezumab-gnlm 120 mg/mL subcutaneous pen injector (Emgality Pen) 120 mg subcut .COMPLEX migrane 09/04/23 insulin lispro 100 unit/mL subcutaneous solution 3 unit subcut .COMPLEX DIABETES 09/04/23 meclizine 25 mg tablet 25 mg PO DAILY PRN vertigo 09/04/23 nystatin 100,000 unit/gram topical powder ([facility]) 1 applic topical BID RASH 09/04/23 topiramate 200 mg tablet 200 mg PO TID migraine 09/04/23 ipratropium 0.5 mg-albuterol 3 mg (2.5 mg base)/3 mL nebulization soln 3 ml inhalation Q6H PRN shortness of breath or wheezing 09/10/23 lorazepam 0.5 mg tablet 0.5 mg PO QHS PRN Anxiety 10/09/23 Held on 09/14/24. Instructions: Hold it while patient is on Klonopin carbamazepine 200 mg tablet (Tegretol) 200 mg PO 0900,1700 seizure 10/10/23 carbamazepine 200 mg tablet (Tegretol) 300 mg PO QHS seizures 10/10/23 fluticasone furoate 200 mcg/actuation blister powder for inhalation (Arnuity Ellipta) 1 inh inhalation DAILY copd 11/13/23 Lactobacillus rhamnosus GG 10 billion cell capsule (Culturelle) 1 cap PO DAILY recurrent uti 05/09/24 acetaminophen 500 mg capsule 1,000 mg PO Q6H PRN fever or pain 05/09/24 aluminum-magnesium hydroxide 225 mg-200 mg/5 mL oral suspension 30 ml PO Q4H PRN gi distress 05/09/24 ascorbic acid (vitamin C) 500 mg tablet 500 mg PO QDAY see pcp 05/09/24 benzocaine 15 mg-menthol 2.6 mg lozenges (Cepacol Sore Throat (benzocaine-menthol)) 1 nasreen mucous membrane Q2H PRN sore throat 05/09/24 cephalexin 250 mg capsule 250 mg PO QHS recurrent UTI 05/09/24 cranberry fruit 450 mg tablet 450 mg PO TID see pcp 05/09/24 duloxetine 60 mg capsule,delayed release 60 mg PO QDAY mental health 05/09/24 estradiol 0.01% (0.1 mg/gram) vaginal cream 1 g vaginal 2XW see pcp 05/09/24 ixekizumab 80 mg/mL subcutaneous auto-injector (Taltz Autoinjector) 80 mg subcut QMONTH psoriasis 05/09/24 loperamide 2 mg tablet 2 mg PO Q12H PRN diarrhea 05/09/24 magnesium hydroxide 400 mg/5 mL oral suspension (Milk of Magnesia) 30 ml PO PRN PRN constipation 05/09/24 melatonin 12 mg tablet 12 mg PO QHS insomnia 05/09/24 midodrine 5 mg tablet 5 mg PO TID blood pressure 05/09/24 polyethylene glycol 3350 17 gram/dose oral powder (Miralax) 17 g PO QDAY PRN constipation 05/09/24 potassium chloride 10 mEq tablet,extended release 40 meq PO DAILY SUPPLEMENT 05/09/24 triamcinolone acetonide 0.1 % topical cream 1 applic topical QDAY rash 05/09/24 cetirizine 10 mg tablet (Zyrtec) 10 mg PO QDAY 08/01/24 ergocalciferol (vitamin D2) 1,250 mcg (50,000 unit) capsule 1,250 mcg PO QWEEK vitamin 08/01/24 insulin glargine 100 unit/mL (3 mL) subcutaneous pen See Rx Instructions subcut .COMPLEX diabetes 08/01/24 tizanidine 2 mg tablet 1 mg PO Q8H PRN muscle spasm 08/01/24 gabapentin 300 mg capsule 300 mg PO BID see pcp #60 caps 08/02/24 onabotulinumtoxinA 100 unit solution for injection (Botox) 200 unit IM ONCE #2 ea 08/02/24 levocarnitine 330 mg tablet 330 mg PO BID elevated ammonia #60 tabs 08/03/24 hydrocodone-acetaminophen 5-325mg 5mg-325mg 1 tab PO BID pain 09/11/24 loratadine 10 mg tablet (Claritin) 10 mg PO DAILY allergies 09/11/24 clonazepam 0.5 mg tablet 0.5 mg PO Q12H 2 days #4 tabs 09/14/24 Physical Exam Narrative Seen and examined Patient is more awake and alert. Her speech output is also more fluent. She wants to go back to [facility] Neurologist recommend the EEG report not needed for discharge. It is not reported yet. Physical exam General: Alert, Oriented x3, Cooperative, more fluent speech. HEENT: Atraumatic, PERRLA, EOMI, Normocephalic Oral: No Gingival or Mucosal Lesions/ Ulcerations Neck: Supple, No JVD, Negative Carotid Bruits Chest wall/Lungs: Air entry diminished in bilateral lung bases. Lungs clear. Cardiovascular: Regular rate, Regular Rhythm, Normal S1, Normal S2, No M/G/R Abdomen: Bowel Sounds Present, Soft, Non Tender, Non-Distended : No dysuria. No renal angle tenderness. No suprapubic tenderness. Extremities: No edema, Capillary Refill Less than 3 Seconds Skin: Bruise, subcutaneous ecchymosis on right lower leg after fall. Musculoskeletal: No Tenderness to Palpation of Joints or Extremities Spine: Mild tenderness over lower thoracic vertebrae. Neurological: Cranial nerves II-XII grossly intact, DTR 2+/4. No acute focal neurological deficit. Psych/Mental Status: Emotionally labile. Weight / BMI Weight Weight: 204 lb 9.423 oz Body Mass Index (BMI) 33.0 ABG / Lab / Microbiology Data 09/14/24 04:41 09/14/24 04:41 Laboratory: Laboratory Results - last 24 hr 09/13/24 16:38: POC Glucose 174 H 09/13/24 21:15: POC Glucose 213 H 09/14/24 04:41: WBC 6.7, RBC 3.26 L, Hgb 9.5 L, Hct 29.3 L, MCV 89.9, MCH 29.1, MCHC 32.4, RDW Std Deviation 47.8 H, RDW Coeff of He 14.6, Plt Count 207, MPV 10.4, Immature Gran % (Auto) 1.200 H, Neut % (Auto) 61.2, Lymph % (Auto) 29.3, [place] % (Auto) 7.2, Eos % (Auto) 0.6, Baso % (Auto) 0.5, Absolute Neuts (auto) 4.1, Absolute Lymphs (auto) 1.95, Nucleated RBC % 0, Sodium 137, Potassium 3.7, Chloride 106, Carbon Dioxide 19.4 L, Anion Gap 12, BUN 14, Creatinine 0.73, Estim Creat Clear Calc 96.41, Est GFR (MDRD) Non-Af 95, BUN/Creatinine Ratio 19.0, Glucose 175 H, Calcium 8.8 09/14/24 04:50: Urine Color Yellow, Urine Clarity Clear, Urine pH 7.0, Ur Specific [place] 1.010, Urine Protein 15 H, Urine Glucose (UA) Normal, Urine Ketones Negative, Urine Occult Blood Negative, Urine Nitrite Negative, Urine Bilirubin Negative, Urine Urobilinogen Normal, Ur Leukocyte Esterase 25 H, Urine WBC 0-5 SEEN, Ur Squamous Epith Cells 0-5 SEEN, Urine Bacteria 0 SEEN, Urine Mucus 0 SEEN 09/14/24 07:51: POC Glucose 175 H 09/14/24 12:15: POC Glucose 235 H D/C Instructions DC O2, CPAP, BIPAP Needs Home O2 Discharge instructions: No Meaningful Use Info Meaningful Use Meaningful Use Diagnoses (Choose all that apply): None applicable Ischemic Stroke Statin Dosing Therapy Reference: STATIN DOSE THERAPY REFERENCE: * Patients > 75 years receive moderate or high dose statin therapy. * Patients 75 years or YOUNGER should receive HIGH intensity statin dose unless contraindicated. You will be required to document reason for non-treatment if statin daily dose does not meet guidelines. HIGH DOSE STATIN THERAPY DAILY Atorvastatin > than or = to 40 mg Rosuvastatin > than or = to 20 mg Amlodipine + Atorvastatin > than or = to 2.5/40 mg Ezetimibe + Simvastatin 10/80 mg Simvastatin 80mg Discharge Plan Admission Admit Date/Time: 09/11/24 21:28 Primary Reason for Your Visit: Altered mental status Attending Provider: Forrest Pascal Primary Care Provider: Wendy Sosa Consulting Providers: Luis Fitch; Luis Fernando Fuller; Niecy Shah; Rocio Sarmiento; John Kurtz; Monica Lebron; Carlo Ahumada; Kim Lomeli; Pao Beckham; Wilfred Brown; Nena Cavazos; Bib Duncan; Quinten Chang; Julius Patton; Willis Jovel; Rajesh Heath Roldan; Sedrick Michelle; Naman Adames; Khang Birmingham; Abby Banres; Lynn Fu; Kristy Ferrer; Navneet Reyna; Mazin Ortiz; KEM BE; Richard Jackson; Karoline Meyer Instructions Additional Instructions / Restrictions: Follow with outpatient neurologist Discharge Orders/Prescriptions Prescriptions: New clonazepam 0.5 mg Tablet 0.5 mg PO Q12H 2 Days Qty: 4 0RF Continued aluminum-magnesium hydroxide 225-200 mg/5 mL suspension 30 ml PO Q4H PRN Cepacol Sore Throat (monae-men) 15-2.6 mg lozenge 1 nasreen mucous membrane Q2H PRN (Reason: sore throat) cephalexin 250 mg capsule 250 mg PO QHS cranberry fruit 450 mg tablet 450 mg PO TID Rx Instructions: administer with meals Culturelle 10 billion cell capsule 1 cap PO DAILY estradiol 0.01 % (0.1 mg/gram) cream 1 g vaginal 2XW Rx Instructions: 10% cream loperamide 2 mg tablet 2 mg PO Q12H PRN (Reason: diarrhea) melatonin 12 mg tablet 12 mg PO QHS magnesium hydroxide [Milk of Magnesia] 400 mg/5 mL suspension 30 ml PO PRN PRN (Reason: constipation) polyethylene glycol 3350 [Miralax] 17 gram/dose powder 17 g PO QDAY PRN (Reason: constipation) Taltz Autoinjector 80 mg/mL auto-injector 80 mg subcut QMONTH triamcinolone acetonide 0.1 % cream 1 applic topical QDAY acetaminophen 500 mg capsule 1,000 mg PO Q6H PRN (Reason: fever or pain) ascorbic acid (vitamin C) 500 mg tablet 500 mg PO QDAY cetirizine [Zyrtec] 10 mg tablet 10 mg PO QDAY tizanidine 2 mg tablet 1 mg PO Q8H PRN (Reason: muscle spasm) gabapentin 300 mg capsule 300 mg PO BID Qty: 60 3RF Rx Instructions: 30 day supply. RYAN: [id number] Patient is to continue gabapentin 800mg nightly. Discontinue gabapentin 100mg twice daily. Botox 100 unit recon soln 200 unit IM ONCE Qty: 2 0RF levocarnitine 330 mg tablet 330 mg PO BID Qty: 60 3RF Rx Instructions: must administer with a meal/food atorvastatin 80 mg tablet 80 mg PO QHS Patient Comments: TAKE ONE TABLET BY MOUTH DAILY AT 9PM AT BEDTIME omeprazole 40 mg capsule,delayed release(DR/EC) 40 mg PO DAILY Patient Comments: TAKE ONE CAPSULE BY MOUTH DAILY AT 9AM gabapentin 800 mg tablet 800 mg PO QHS Patient Comments: TAKE ONE TABLET BY MOUTH DAILY AT 9PM AT BEDTIME docusate sodium 100 mg Capsule 100 mg PO BID diclofenac sodium 75 mg tablet,delayed release (DR/EC) 75 mg PO BID PRN (Reason: pain) Patient Comments: TAKE ONE TABLET BY MOUTH TWICE DAILY NEEDED (VIAL) albuterol sulfate 90 mcg/actuation HFA aerosol inhaler 2 puff INHALATION Q4H PRN (Reason: Wheezing) Patient Comments: INHALE TWO PUFFS BY MOUTH DIRECTED EVERY 6 HOURS NEEDED FOR WHEEZING OR FOR SHORTNESS OF BREATH (BULK) (DME) FreeStyle Es 2 Sensor Kit MISCELLANEOUS Patient Comments: apply 1 SENSOR to back OF UPPER ARM REMOVE AND REPLACE every 14 d... (REFER TO PRESCRIPTION NOTES). (DME) FreeStyle Es 2 [place] Misc MISCELLANEOUS Patient Comments: USE CONTINUOUSLY TO MONITOR BLOOD SUGARS DAILY (DME) Droplet Insulin Syr(half unit) 0.5 mL 31 gauge x 5/16 syringe MISCELLANEOUS Patient Comments: USE TO INJECT INSULIN UNDER THE SKIN EVERY MEAL AND AT BEDTIME PER SLIDING SCALE ergocalciferol (vitamin D2) 1,250 mcg (50,000 unit) capsule 1,250 mcg PO QWEEK Rx Instructions: takes on Wednesday promethazine 25 mg tablet 25 mg PO Q6H PRN PRN (Reason: Nausea) Qty: 12 0RF duloxetine 60 mg capsule,delayed release(DR/EC) 60 mg PO QDAY Patient Comments: TAKE ONE CAPSULE BY MOUTH TWICE DAILY insulin glargine 100 unit/mL (3 mL) insulin pen See Rx Instructions SUBCUT .COMPLEX Rx Instructions: subcutaneously 30 units qam Nuedexta 20-10 mg capsule 1 cap PO BID Ubrelvy 100 mg tablet 100 mg PO .COMPLEX PRN (Reason: MIGRAINE) Rx Instructions: TAKE 1 TABLET BY MOUTH AT ONSET OF MIGRAINE. IF NO IMPROVEMENT WITHIN 2 HRS TAKE 1 TABLET. DO NOT EXCEED 2 TABS IN 24 HOURS furosemide [Lasix] 20 mg tablet 20 mg PO DAILY Ozempic 0.25 mg or 0.5 mg (2 mg/3 mL) pen injector 0.25 mg SUBCUT QWEEK Patient Comments: INJECT 0.25 MG SUBCUTANEOUSLY ONCE A WEEK Rx Instructions: WEDNESDAY Emgality Pen 120 mg/mL pen injector 120 mg SUBCUT .COMPLEX Patient Comments: INJECT 1 ML (120MG TOTAL) UNDER THE SKIN EVERY 28 DAYS (BULK) on the Rx Instructions: 120 mg subcutaneously Q28D; insulin lispro 100 unit/mL solution 3 unit subcut .COMPLEX Rx Instructions: 3 units subcutaneously achs; INJECT PER SLIDING SCALE THREE TIMES DAILY FOLLOWS ONE UNIT IF BG LESS THAN 110, TWO UNITS FOR BG 111-150, FOUR UNITS FOR BG 151-200, SEVEN UNITS FOR BG 201-250, 10 UNITS FOR BG 251-300, 13 UNITS FOR BG 301-350, 16 UNITS FOR BG 351-400, CALL MD IF BG OVER 400 (MAX 48 UNITS PER DAY) meclizine 25 mg tablet 25 mg PO DAILY PRN Patient Comments: TAKE ONE TABLET BY MOUTH BID nystatin [Nyamyc] 100,000 unit/gram powder 1 applic TOPICAL BID Patient Comments: apply to affected area twice a day if needed topiramate 200 mg tablet 200 mg PO TID ipratropium-albuterol 0.5 mg-3 mg(2.5 mg base)/3 mL solution for nebulization 3 ml inhalation Q6H PRN (Reason: shortness of breath or wheezing) potassium chloride 10 mEq tablet extended release 40 meq PO DAILY carbamazepine [Tegretol] 200 mg tablet 200 mg PO 0900,1700 carbamazepine [Tegretol] 200 mg tablet 300 mg PO QHS Arnuity Ellipta 200 mcg/actuation blister with device 1 inh inhalation DAILY midodrine 5 mg tablet 5 mg PO TID Rx Instructions: hold if bp >130/80 loratadine [Claritin] 10 mg tablet 10 mg PO DAILY hydrocodone-acetaminophen 5-325 mg tablet 1 tab PO BID Held lorazepam 0.5 mg tablet 0.5 mg PO QHS PRN Hold Instructions: Hold it while patient is on Klonopin Discontinued guaifenesin 100 mg/5 mL liquid 200 mg PO Q4H PRN (Reason: cough, congestion) ibuprofen 600 mg tablet 600 mg PO Q6H PRN PRN (Reason: pain) Qty: 20 0RF ibuprofen 600 mg tablet 600 mg PO Q6H PRN PRN (Reason: pain) Qty: 20 0RF Referrals / Follow Up: Wendy Sosa MD [Primary Care Provider] - Vicente Santoro MD [Non-Staff -Ordering Privileges] - Within 1 Month Disposition Disposition (needs filled in before D/C Order can be placed): [facility] Facility Charges/Coding Visit Charges Inpatient E&M: 73918 Disch Hosp >30min
[2024-09-14 11:17] VITALS: BP 134/67; PULSE 72; RESP 18; TEMP 36.4; O2SAT 99
--- NOTE | 2024-09-14 11:55 | CASEMGMT ---
Social Work Per physician, pt is ready for return to [facility] today. DC virtual assistant for [employer] updated and to complete discharge. Disposition: Return to [facility] DAIJA Carter
--- NOTE | 2024-09-14 12:21 | CASEMGMT ---
Discharge Planning Discharge orders and transport time sent to [facility]. Physicians will transport pt by wheelchair at 1p. Nursing, SW, and pt updated. Pt will update sister (Debbie). Michelle Pereyra DC Planning Asst.
--- NOTE | 2024-09-14 12:37 | NURSING ---
Report called to nurse Gibson for pt to be d/c back to [facility].
[2024-09-14 12:48] LABS: Bedside Glucose 235 mg/dL (74-106)
[2024-09-14 14:22] LABS: Red Blood Cells-Urine 0 SEEN /hpf (0-5)
== END 2024-09-14 13:21 | disposition skilled nursing facility (03) | DRG 71 ==
LOC: ED 21:01 → PCU 21:07
PROVIDERS: Admitting Provider Family Medicine; Emergency Provider Emergency Medicine; PCP Internal Medicine; Visit Provider Internal Medicine
DX: G93.41 Metabolic encephalopathy (principal); I69.354 Hemiplegia and hemiparesis following cerebral infarction affecting left non-dominant side; E11.42 Type 2 diabetes mellitus with diabetic polyneuropathy; D64.9 Anemia, unspecified; E78.00 Pure hypercholesterolemia, unspecified; E87.5 Hyperkalemia; J44.9 Chronic obstructive pulmonary disease, unspecified; G40.909 Epilepsy, unspecified, not intractable, without status epilepticus; G37.9 Demyelinating disease of central nervous system, unspecified; F32.A Depression, unspecified; I10 Essential (primary) hypertension; F41.9 Anxiety disorder, unspecified; K21.9 Gastro-esophageal reflux disease without esophagitis; L40.9 Psoriasis, unspecified; Z79.4 Long term (current) use of insulin; G43.709 Chronic migraine without aura, not intractable, without status migrainosus; I95.1 Orthostatic hypotension; I45.10 Unspecified right bundle-branch block; J06.9 Acute upper respiratory infection, unspecified; M54.2 Cervicalgia; M54.50 Low back pain, unspecified; G89.29 Other chronic pain; Z87.891 Personal history of nicotine dependence; Z79.899 Other long term (current) drug therapy; Z79.85 Long-term (current) use of injectable non-insulin antidiabetic drugs; Z79.51 Long term (current) use of inhaled steroids; Z91.81 History of falling
CPT/HCPCS: 36415; 70450; 70551; 71045; 80048; 80076; 80307; 81001; 82077; 82803; 82962; 83605; 83690; 84484; 85025; 87086; 93005; 94640; 95819; 97161; 97166; 97802; 99285; 99406; P9612; A4216

== ENCOUNTER → 2024-10-30 | Outpatient (CLI) | payer MEDICARE, MEDICAID, SELFPAY ==
[2024-10-30 15:30] LABS: Bacteria 0 SEEN /hpf (None Seen); Mucous, Urine 0 SEEN /hpf (<or=2+); Red Blood Cells-Urine 0 SEEN /hpf (0-5)
[2024-10-30 16:45] LABS: Color, Urine Yellow (Yellow); Glucose, Dipstick Normal (Normal); Ketone-Dipstick Negative (Negative); Leukocyte Esterase-Dipstick 500 /ul (Negative); Nitrite-Dipstick Negative (Negative); Occult Blood-Urine Negative /ul (Negative); Protein-Dipstick 30 mg/dl (Negative); Urine Bilirubin Dipstick Negative (Negative); Urine Clarity Clear (Clear); Urine Urobilinogen Normal (Normal)
[2024-10-30 17:22] LABS: Hyaline Cast 0-5 SEEN /lpf (0-5); Squamous Epithelial Cells - UA 5-10 SEEN /hpf (5-10); White Blood Cells 10-25 SEEN /hpf (0-5)
[2024-10-30 17:33] LABS: Microalbumin,Random Urine < 12.0 mg/L (NO RANGE EST.); Microalbumin:Creatinine Ratio UNABLE TO CALCULATE mg/g CRE
[2024-10-30 17:54] LABS: Cholesterol 172 mg/dL (<=200); High Density Lipoprotein 46 mg/dL; Low Density Lipoprotein Calc. 63 mg/dL; Triglycerides 316 mg/dL; Very Low Density Lipoprotein 63 mg/dL (5-40); Vitamin D,25 Hydroxy 34.3 ng/mL (30-100); cholesterol:hdl ratio screen 3.76
== END | disposition home or self-care (01) ==
PROVIDERS: PCP Internal Medicine; Referring Provider Internal Medicine; Visit Provider Internal Medicine
DX: E11.9 Type 2 diabetes mellitus without complications (principal); E55.9 Vitamin D deficiency, unspecified; N39.0 Urinary tract infection, site not specified
CPT/HCPCS: 36415; 80061; 81001; 82043; 82306; 82570

== ENCOUNTER 2024-12-14 11:36 | Emergency (ER) | payer MEDICARE, MEDICAID, SELFPAY ==
[2024-12-14 11:36] VITALS: BP 130/54; PULSE 49; RESP 14; TEMP 36; O2SAT 99
--- NOTE | 2024-12-14 12:06 | CT_ITS ---
PROCEDURE: BRAIN/HEAD WITHOUT CONTRAST 12/14/2024 REASON FOR EXAM: CLOSED HEAD INJURY TECHNIQUE: Head CT without intravenous contrast. Coronal and Sagittal reconstruction series were provided. One or more dose reduction techniques were used (e.g., Automated exposure control, adjustment of the mA and/or kV according to patient size, use of iterative reconstruction technique. RADIATION DOSE SUMMARY: CTDlvol: 40.99 mGy DLP: 779.24 mGycm COMPARISON: MR brain without contrast, 09/12/2024. CT head without contrast, 09/11/2024. FINDINGS: There is mild diffuse cerebral atrophy with concomitant ventriculomegaly. There is patchy low-density of the periventricular white matter consistent with chronic ischemic white matter disease. There is no evidence of acute intracranial hemorrhage or infarction. There are no abnormal intracranial masses or mass effects. The basilar cisterns are unremarkable. There is calcific vascular disease of the intracranial portion of both internal carotid arteries. There is a left posterior parietal/occipital scalp contusion. The skull base and calvarium are normal. There is nasal septal deviation to the left. There is a left-sided nasal spur. The paranasal sinuses and mastoid air cells are unremarkable. The intraorbital contents are normal. CT/Brain/Head without Contrast IMPRESSION: 1. Mild cerebral atrophy. 2. There is no evidence of acute intracranial pathology. 3. There is a left posterior parietal occipital scalp contusion. 4. Other findings as noted. Reading Location: [id number]
--- NOTE | 2024-12-14 12:07 | CT_ITS ---
PROCEDURE: SPINE CERVICAL WITHOUT CONTRAS 12/14/2024 REASON FOR EXAM: TRAUMA TECHNIQUE: Cervical spine CT without contrast. Coronal and Sagittal reconstruction series were provided. One or more dose reduction techniques were used (e.g., Automated exposure control, adjustment of the mA and/or kV according to patient size, use of iterative reconstruction technique RADIATION DOSE SUMMARY: DLP: 1343.75 mGycm COMPARISON: Cervical MRI of 07/30/2023. FINDINGS: Alignment: Slight subluxation C3 upon C4 is noted. Vertebrae: No fracture is seen. Progressive degenerative disc disease of the mid to lower cervical spine is noted, with moderate disc narrowing now seen at C4-C5 and moderately severe C6-C7. Moderately severe to severe disc narrowing is noted at C5-C6. Soft Tissues: No prevertebral soft tissue swelling is noted. In the presence of uncovertebral joint hypertrophy, greatest at C5-C6, probable moderate right and moderate to moderately severe left C5-C6 neural foraminal narrowing is noted. Also, moderate spinal canal narrowing is seen at the C5-C6 level. Mild left osseous neural foraminal narrowing is noted at the C3-C4 level. CT/Spine Cervical without Contras IMPRESSION: 1. Progressive mid to lower cervical spine degenerative disc disease, as descri bed. 2. No fracture, significant subluxation, or prevertebral soft tissue swelling i s noted Reading Location: [id number]
[2024-12-14 12:11] VITALS: BMI 34.7
--- NOTE | 2024-12-14 12:13 | EX.ED.GENINJ ---
HPI History of Present Illness Chief Complaint: Head Injury Narrative Narrative: Chief complaint and HPI: Mechanical fall with closed head injury. 59-year-old female with past medical history of epilepsy, DM2 presents for evaluation of mechanical fall with closed head injury. Patient states she was leaving the house with her walker when she lost her balance and fell. Hit her head on the concrete. Denies LOC. No blood thinners. Endorses headache and nausea. States it was purely a mechanical fall and denies any fever, chills, shortness of breath, chest pain, abdominal pain. Associated symptom is body soreness worse on the right since the fall. Denies any numbness, tingling, weakness. Review of systems: See HPI Medications: As listed on the chart Allergies: As listed on the chart PFSH: Per chart Vital signs: As listed on the chart. Reviewed. Physical exam: Gen: A&O x3, NAD Head: Normocephalic, atraumatic Eyes: No sclera icterus, conjunctiva clear, PERRL, EOMI ENT: TMs clear BL, moist mucous membranes, no swelling/lacerations/blood in the mouth or the nares, No nasal septal hematoma, no facial tenderness Neck: Trachea midline, No JVD, Nontender CV: RRR, no murmurs, no chest wall TTP Resp: Lungs CTA BL, no w/r/c GI: Abd soft, non-distended, non-tender, no r/r/g Musc: Full ROM, no deformity, no spinal TTP, no eduardo step-offs Skin: Warm, dry, intact Neuro: Alert, oriented, grossly intact, sensation intact, GCS 15 Psych: Cooperative, appropriate mood and affect [facility] Medical History Diabetes mellitus, type 2 Gastroenteritis COVID-19 virus infection Bradycardia Multiple sclerosis Demyelinating disease of central nervous system Epilepsy Generalized weakness Recurrent falls Recurrent syncope Anxiety Depression COPD (chronic obstructive pulmonary disease) Migraines Multiple falls History of CVA (cerebrovascular accident) GERD (gastroesophageal reflux disease) Obesity Former tobacco use Seizure disorder Allergic rhinitis Chronic migraine Orthostasis HTN (hypertension) Psoriasis Hypercholesterolemia Home Medications ?Medication ?Instructions ?Recorded ?Last Taken ?Type albuterol sulfate 90 mcg/actuation 2 puff inhalation Q4H PRN Wheezing 09/03/22 09/04/23 History aerosol inhaler docusate sodium 100 mg capsule 100 mg PO BID CONSTIPATION 09/03/22 09/03/23 History insulin syr/ndl U100 half shirley 0.5 09/03/22 Unknown History mL 31 gauge x 5/16 (Droplet Insulin Syringe (half unit)) promethazine 25 mg tablet 25 mg PO Q6H PRN PRN Nausea #12 11/08/22 09/04/23 Rx TABLETS dextromethorphan 20 mg-quinidine 1 cap PO BID DEPRESSION 02/06/23 10/09/23 History 10 mg capsule (Nuedexta) semaglutide 0.25 mg or 0.5 mg (2 0.25 mg subcut QWEEK diabetes 07/29/23 10/06/23 History mg/3 mL) subcutaneous pen injector (Ozempic) insulin lispro 100 unit/mL 3 unit subcut .COMPLEX DIABETES 09/04/23 09/04/23 History subcutaneous solution meclizine 25 mg tablet 25 mg PO DAILY PRN vertigo 09/04/23 09/04/23 History nystatin 100,000 unit/gram topical 1 applic topical BID RASH 09/04/23 10/09/23 History powder ([facility] [place] ipratropium 0.5 mg-albuterol 3 mg 3 ml inhalation Q6H PRN shortness 09/10/23 Unknown History (2.5 mg base)/3 mL nebulization of breath or wheezing soln lorazepam 0.5 mg tablet 0.5 mg PO QHS PRN Anxiety 10/09/23 Unknown History Held on 09/14/24. Instructions: Hold it while patient is on Klonopin Lactobacillus rhamnosus GG 10 1 cap PO DAILY recurrent uti 05/09/24 Unknown History billion cell capsule (Culturelle) acetaminophen 500 mg capsule 1,000 mg PO Q6H PRN fever or pain 05/09/24 Unknown History aluminum-magnesium hydroxide 225 30 ml PO Q4H PRN gi distress 05/09/24 Unknown History mg-200 mg/5 mL oral suspension ascorbic acid (vitamin C) 500 mg 500 mg PO QDAY see pcp 05/09/24 Unknown History tablet benzocaine 15 mg-menthol 2.6 mg 1 nasreen mucous membrane Q2H PRN sore 05/09/24 Unknown History lozenges (Cepacol Sore Throat throat (benzocaine-menthol)) cranberry fruit 450 mg tablet 450 mg PO TID see pcp 05/09/24 Unknown History duloxetine 60 mg capsule,delayed 60 mg PO QDAY mental health 05/09/24 Unknown History release estradiol 0.01% (0.1 mg/gram) 1 g vaginal 2XW see pcp 05/09/24 Unknown History vaginal cream ixekizumab 80 mg/mL subcutaneous 80 mg subcut QMONTH psoriasis 05/09/24 Unknown History auto-injector (SpokenLayertz Autoinjector) loperamide 2 mg tablet 2 mg PO Q12H PRN diarrhea 05/09/24 Unknown History magnesium hydroxide 400 mg/5 mL 30 ml PO PRN PRN constipation 05/09/24 Unknown History oral suspension (Milk of Magnesia) melatonin 12 mg tablet 12 mg PO QHS insomnia 05/09/24 Unknown History triamcinolone acetonide 0.1 % 1 applic topical QDAY rash 05/09/24 Unknown History topical cream ergocalciferol (vitamin D2) 1,250 1,250 mcg PO QWEEK vitamin 08/01/24 Unknown History mcg (50,000 unit) capsule hydrocodone-acetaminophen 5-325mg 1 tab PO BID pain 09/11/24 Unknown History 5mg-325mg clonazepam 0.5 mg tablet 0.5 mg PO Q12H 2 days #4 tabs 09/14/24 Unknown Rx atorvastatin 80 mg tablet 80 mg PO QHS cholesterol #90 tabs 10/30/24 Unknown Rx cephalexin 250 mg capsule 250 mg PO QHS recurrent UTI #90 10/30/24 Unknown Rx caps flash glucose scanning reader #1 ea 10/30/24 Unknown Rx (FreeStyle Es 2 [place]) flash glucose sensor (FreeStyle #3 ea 10/30/24 Unknown Rx Es 2 Sensor kit) omeprazole 40 mg capsule,delayed 40 mg PO DAILY GERD #90 caps 10/30/24 Unknown Rx release cenobamate 100 mg tablet (Xcopri) 100 mg PO DAILY #30 tabs 11/02/24 Unknown Rx cenobamate 12.5 mg (14)-25 mg (14) See Rx Instructions PO PER PKG DIR 11/02/24 Unknown Rx tablets in a dose pack (Xcopri #28 tabs Titration Pack) cenobamate 50 mg (14)-100 mg (14) See Rx Instructions PO PER PKG DIR 11/02/24 Unknown Rx tablets in a dose pack (Xcopri #28 tabs Titration Pack) gabapentin 300 mg capsule 300 mg PO BID see pcp #60 caps 11/05/24 Unknown Rx gabapentin 800 mg tablet 800 mg PO QHS nerve pain #30 tabs 11/05/24 Unknown Rx galcanezumab-gnlm 120 mg/mL 120 mg subcut QMONTH #1 mL 11/05/24 Unknown Rx subcutaneous pen injector (Emgality Pen) ibuprofen 600 mg tablet 600 mg PO TID PRN headache/pain 11/05/24 Unknown Rx #90 tabs levocarnitine 330 mg tablet 330 mg PO BID elevated ammonia #60 11/05/24 Unknown Rx tabs topiramate 50 mg tablet 50 mg PO .COMPLEX #42 tabs 11/05/24 Unknown Rx carbamazepine 200 mg tablet 300 mg PO QHS 11/09/24 Unknown History carbamazepine 200 mg tablet 200 mg PO BID 11/09/24 Unknown History (Tegretol) insulin glargine 100 unit/mL (3 30 unit subcut QAM diabetes 11/09/24 Unknown History mL) subcutaneous pen midodrine 5 mg tablet 5 mg PO TID PRN blood pressure 11/09/24 Unknown History handicap placard #1 ea 11/15/24 Unknown Rx fluticasone furoate 200 1 inh inhalation DAILY copd #30 ea 11/20/24 Unknown Rx mcg/actuation blister powder for inhalation (Arnuity Ellipta) ubrogepant 100 mg tablet (Ubrelvy) 100 mg PO .COMPLEX MIGRAINE #14 11/21/24 Unknown Rx tabs tizanidine 2 mg tablet 1 mg (1/2 x 2 mg) PO Q8H PRN PRN 11/22/24 Unknown Rx for muscle spasm #45 TABLETS onabotulinumtoxinA 100 unit 200 unit IM ONCE Migraine headache 11/29/24 Unknown Rx solution for injection (Botox) w/o aura (ICD 10: G43.009) #2 ea cephalexin 500 mg capsule 500 mg PO TID #30 caps 12/13/24 Unknown Rx mirtazapine 15 mg tablet 15 mg PO QHS 12/14/24 Unknown History Allergy/AdvReac Type Severity Reaction Status Date / Time adhesive tape Allergy Intermediate Rash Verified 12/14/24 11:37 latex Allergy Rash Verified 12/14/24 11:37 levofloxacin (From Levaquin) Allergy Hives Verified 12/14/24 11:37 ondansetron (From Zofran) Allergy Hives Verified 12/14/24 11:37 nalbuphine (From Nubain) AdvReac Other Verified 12/14/24 11:37 Family History Father Hypertension Hyperlipidemia Asthma Colon cancer Mother Cancer lung Aunt Breast cancer Aunt Breast cancer Grandmother Cancer ovarian Grandfather Cancer prostate Grandmother Cancer Uncle Hypertension Aunt Hypertension Sister Hypertension Asthma Surgical History History of appendectomy Hx of tubal ligation Hx of tonsillectomy Hx of cholecystectomy Social History household members: none 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 Smoking Status: Former smoker quit date: 07/12/21 pack-years: 10 alcohol intake: never substance use type: does not use do you feel safe at home: Yes EXAM Physical Exam Const Vital Signs: 12/14/24 11:36 12/14/24 12:23 12/14/24 12:47 Temperature 96.8 F L Temperature Source Temporal Pulse Rate 49 L 51 L Respiratory Rate 14 14 Respiratory Effort Normal Respiratory Depth Normal Respiratory Pattern Normal Blood Pressure 130/54 H 132/66 H Blood Pressure Mean 79 88 Pulse Ox 99 96 Oxygen Delivery Method Room Air Room Air Room Air 12/14/24 13:03 Temperature Temperature Source Pulse Rate 55 L Respiratory Rate 16 Respiratory Effort Respiratory Depth Respiratory Pattern Blood Pressure Blood Pressure Mean Pulse Ox 98 Oxygen Delivery Method MDM MDM MDM Narrative Medical decision making narrative: 59-year-old female with past medical history of epilepsy, DM2 presents for evaluation of mechanical fall with closed head injury. Patient lost her balance which caused her mechanical fall. Hit her head. No LOC. Not on blood thinners. Symptoms consist of headache and nausea. See physical exam findings. Differential diagnosis includes but is not limited to closed head injury, concussion, intracranial bleed, skull fracture, cervical fracture. Will hold off on any antinausea medicine as patient has it listed as an allergy as well has a history of epilepsy. Tylenol ordered for pain. Patient is a type II diabetic. She states she forgot her meter. She has not checked her sugar recently we will get [id number] glucose. Given this was purely mechanical fall I do not think any laboratory workup is needed. Will obtain CT head and neck. Glucose 172. CT of the head shows mild cerebral atrophy, no acute or traumatic intracranial pathology. Left posterior parietal occipital scalp contusion. CT of the cervical spine shows degenerative disc disease, no acute traumatic injury. On reevaluation, patient is still nauseous with headache therefore will give phenergan, will have to be careful with antinausea medicine given her epilepsy. She was given IM Toradol. Patient stable to discharge home. Follow-up with PCP is concern is for concussion. She was given education on concussion and concussion symptoms. Will give her short course of antinausea medicine at home. Again she was educated that this can lower her seizure threshold. Patient lives with her sister. Impression: 1. Close head injury/scalp contusion 2. Concussion 3. Mechanical fall Lab Data Labs: Laboratory Results - last 24 hr 12/14/24 12:20 POC Glucose 172 H Radiography Diagnostic Testing: Clinical Impression(s) from Imaging Studies Brain CT 12/14/24 12:06 IMPRESSION: 1. Mild cerebral atrophy. 2. There is no evidence of acute intracranial pathology. 3. There is a left posterior parietal occipital scalp contusion. 4. Other findings as noted. Reading Location: [facility] Cervical Spine CT 12/14/24 12:07 IMPRESSION: 1. Progressive mid to lower cervical spine degenerative disc disease, as described. 2. No fracture, significant subluxation, or prevertebral soft tissue swelling is noted Reading Location: [address] Discharge Plan Triage Chief Complaint: Head Injury ED Provider: Akil Medina Dx/Rx/DC Orders Prescriptions: No Action aluminum-magnesium hydroxide 225-200 mg/5 mL suspension 30 ml PO Q4H PRN Cepacol Sore Throat (monae-men) 15-2.6 mg lozenge 1 nasreen mucous membrane Q2H PRN (Reason: sore throat) cranberry fruit 450 mg tablet 450 mg PO TID Rx Instructions: administer with meals Culturelle 10 billion cell capsule 1 cap PO DAILY estradiol 0.01 % (0.1 mg/gram) cream 1 g vaginal 2XW Rx Instructions: 10% cream loperamide 2 mg tablet 2 mg PO Q12H PRN (Reason: diarrhea) melatonin 12 mg tablet 12 mg PO QHS magnesium hydroxide [Milk of Magnesia] 400 mg/5 mL suspension 30 ml PO PRN PRN (Reason: constipation) Taltz Autoinjector 80 mg/mL auto-injector 80 mg subcut QMONTH triamcinolone acetonide 0.1 % cream 1 applic topical QDAY acetaminophen 500 mg capsule 1,000 mg PO Q6H PRN (Reason: fever or pain) ascorbic acid (vitamin C) 500 mg tablet 500 mg PO QDAY omeprazole 40 mg capsule,delayed release(DR/EC) 40 mg PO DAILY Qty: 90 0RF (DME) FreeStyle Es 2 Sensor Kit MISCELLANEOUS Qty: 3 0RF Rx Instructions: As directed (DME) FreeStyle Es 2 [place] Misc MISCELLANEOUS Qty: 1 0RF Rx Instructions: As directed cephalexin 250 mg capsule 250 mg PO QHS Qty: 90 0RF atorvastatin 80 mg tablet 80 mg PO QHS Qty: 90 0RF Xcopri Titration Pack 12.5 mg (14)- 25 mg (14) tablets,dose pack See Rx Instructions PO PER PKG DIR Qty: 28 0RF Rx Instructions: Week 1 to 4: PO PER PKG DIR Xcopri Titration Pack 50 mg (14)- 100 mg (14) tablets,dose pack See Rx Instructions PO PER PKG DIR Qty: 28 0RF Rx Instructions: Begin after completing 4-week titration pack of Xcopri 12.5mg/25mg Xcopri 100 mg tablet 100 mg PO DAILY Qty: 30 4RF Rx Instructions: Begin after completing Xcopri 50mg/100mg titration pack. gabapentin 300 mg capsule 300 mg PO BID Qty: 60 3RF Rx Instructions: 30 day supply. RYAN: [id number] Patient is to continue gabapentin 800mg nightly. gabapentin 800 mg tablet 800 mg PO QHS Qty: 30 3RF Emgality Pen 120 mg/mL pen injector 120 mg subcut QMONTH Qty: 1 3RF levocarnitine 330 mg tablet 330 mg PO BID Qty: 60 4RF Rx Instructions: must administer with a meal/food topiramate 50 mg tablet 50 mg PO .COMPLEX Qty: 42 0RF Rx Instructions: Begin after completing 2 week course of topiramate 100mg BID. Take topiramate 50mg orally BID for 2 weeks then 50mg daily for 2 weeks then discontinue topiramate. ibuprofen 600 mg tablet 600 mg PO TID PRN (Reason: headache/pain) Qty: 90 4RF carbamazepine [Tegretol] 200 mg tablet 200 mg PO BID carbamazepine 200 mg tablet 300 mg PO QHS cephalexin 500 mg capsule 500 mg PO TID Qty: 30 0RF docusate sodium 100 mg Capsule 100 mg PO BID albuterol sulfate 90 mcg/actuation HFA aerosol inhaler 2 puff INHALATION Q4H PRN (Reason: Wheezing) Patient Comments: INHALE TWO PUFFS BY MOUTH DIRECTED EVERY 6 HOURS NEEDED FOR WHEEZING OR FOR SHORTNESS OF BREATH (BULK) (DME) Droplet Insulin Syr(half unit) 0.5 mL 31 gauge x 5/16 syringe MISCELLANEOUS Patient Comments: USE TO INJECT INSULIN UNDER THE SKIN EVERY MEAL AND AT BEDTIME PER SLIDING SCALE ergocalciferol (vitamin D2) 1,250 mcg (50,000 unit) capsule 1,250 mcg PO QWEEK Rx Instructions: takes on Wednesday promethazine 25 mg tablet 25 mg PO Q6H PRN PRN (Reason: Nausea) Qty: 12 0RF duloxetine 60 mg capsule,delayed release(DR/EC) 60 mg PO QDAY Patient Comments: TAKE ONE CAPSULE BY MOUTH TWICE DAILY insulin glargine 100 unit/mL (3 mL) insulin pen 30 unit SUBCUT QAM Nuedexta 20-10 mg capsule 1 cap PO BID Ozempic 0.25 mg or 0.5 mg (2 mg/3 mL) pen injector 0.25 mg SUBCUT QWEEK Patient Comments: INJECT 0.25 MG SUBCUTANEOUSLY ONCE A WEEK Rx Instructions: WEDNESDAY insulin lispro 100 unit/mL solution 3 unit subcut .COMPLEX Rx Instructions: 3 units subcutaneously achs; INJECT PER SLIDING SCALE THREE TIMES DAILY FOLLOWS ONE UNIT IF BG LESS THAN 110, TWO UNITS FOR BG 111-150, FOUR UNITS FOR BG 151-200, SEVEN UNITS FOR BG 201-250, 10 UNITS FOR BG 251-300, 13 UNITS FOR BG 301-350, 16 UNITS FOR BG 351-400, CALL MD IF BG OVER 400 (MAX 48 UNITS PER DAY) meclizine 25 mg tablet 25 mg PO DAILY PRN Patient Comments: TAKE ONE TABLET BY MOUTH BID nystatin [Nyamyc] 100,000 unit/gram powder 1 applic TOPICAL BID Patient Comments: apply to affected area twice a day if needed ipratropium-albuterol 0.5 mg-3 mg(2.5 mg base)/3 mL solution for nebulization 3 ml inhalation Q6H PRN (Reason: shortness of breath or wheezing) lorazepam 0.5 mg tablet 0.5 mg PO QHS PRN midodrine 5 mg tablet 5 mg PO TID PRN (Reason: blood pressure) Rx Instructions: hold if bp < 130/80 mirtazapine 15 mg tablet 15 mg PO QHS hydrocodone-acetaminophen 5-325 mg tablet 1 tab PO BID clonazepam 0.5 mg Tablet 0.5 mg PO Q12H 2 Days Qty: 4 0RF (DME) handicap placard See Rx Instructions .ROUTE .MEDSUPPLY Qty: 1 0RF Rx Instructions: Length of time: 5 years Diagnosis: Impaired physical mobility z74.09 Arnuity Ellipta 200 mcg/actuation blister with device 1 inh inhalation DAILY Qty: 30 2RF Ubrelvy 100 mg tablet 100 mg PO .COMPLEX Qty: 14 2RF Rx Instructions: Take 1 tablet orally every 2 hours as needed for headache up to 2 tablets/day. tizanidine 2 mg tablet 1 mg PO Q8H PRN PRN (Reason: for muscle spasm) Qty: 45 0RF Botox 100 unit recon soln 200 unit IM ONCE Qty: 2 0RF Primary Care Provider: Riddhi Simpson Referrals: Riddhi Simpson MD [Primary Care Provider] - Print Language: Persian
[2024-12-14] MEDS: Acetaminophen 500 MG Tablet 1000 MG PO (12:14)
[2024-12-14 12:47] VITALS: BP 132/66; PULSE 51; RESP 14; O2SAT 96
[2024-12-14 12:48] LABS: Bedside Glucose 172 mg/dL (74-106)
[2024-12-14 13:03] VITALS: PULSE 55; RESP 16; O2SAT 98
[2024-12-14] MEDS: proMETHazine 25 MG Tablet 12.5 MG PO (13:26)
[2024-12-14] MEDS: Ketorolac 15 MG/ML Vial IM (13:48)
[2024-12-14 14:00] VITALS: PULSE 54; RESP 16; O2SAT 98
[2024-12-14 14:40] VITALS: BP 146/82; PULSE 86; RESP 16; TEMP 36.6; O2SAT 98
--- NOTE | 2024-12-14 14:55 | CM.ED ---
Social Work SW requesting information regarding advanced directives. SW provided patient with Advanced care planning Q and A booklet. Patient was appreciative of information but stated she was not feeling well enough to complete. SW educated patient that she could call SW department and make and appointment to complete advanced directives at her convenience. No further needs identified at this time. Jessie Izaguirre, PRODUCTS MECHANICAL DESIGN ENGINEER, [employer] SPECIALIST
== END 2024-12-14 14:43 | disposition home or self-care (01) ==
PROVIDERS: Emergency Provider Surgery; PCP Internal Medicine; Visit Provider Surgery
DX: S06.0X0A Concussion without loss of consciousness, initial encounter (principal); G35 Multiple sclerosis; J44.9 Chronic obstructive pulmonary disease, unspecified; G40.909 Epilepsy, unspecified, not intractable, without status epilepticus; E11.9 Type 2 diabetes mellitus without complications; Z79.4 Long term (current) use of insulin; S00.03XA Contusion of scalp, initial encounter; I10 Essential (primary) hypertension; Z79.51 Long term (current) use of inhaled steroids; Z79.899 Other long term (current) drug therapy; Z87.891 Personal history of nicotine dependence; W19.XXXA Unspecified fall, initial encounter; Z86.16 Personal history of COVID-19; Z86.73 Personal history of transient ischemic attack (TIA), and cerebral infarction without residual deficits
CPT/HCPCS: 70450; 72125; 82962; 96372; 99283

== ENCOUNTER → 2024-12-21 | Outpatient (CLI) | payer MEDICARE, MEDICAID, SELFPAY ==
--- NOTE | 2024-12-21 11:02 | MRI_ITS ---
PROCEDURE: BRAIN W/WO CONTRAST 12/21/2024 REASON FOR EXAM: ASSESS FOR MULTIPLE SCLEROSIS TECHNIQUE: Routine brain MRI without and with intravenous contrast. Multiplanar and multisequence images were obtained. CONTRAST: Clariscan VOLUME: 18 mL COMPARISON: 09/12/2024. FINDINGS: Unchanged diffuse cerebral atrophy. Unchanged multiple T2 hyperintense foci in the periventricular and subcortical white matter. Scattered chronic ischemic foci are noted in the basal ganglia, thalami and infratentorial white matter. No abnormal postcontrast enhancement is noted. The ventricles and extra-axial spaces are normal for the patient's age. No other abnormality is identified in the basal ganglia and thalami. No other abnormality is identified in the brainstem. No other abnormality is identified in the cerebellum. There is no midline shift or brain herniation. There is no demonstrated extra-axial, intraparenchymal, or intraventricular hemorrhage. There are no abnormal intra-or extra-axial fluid collections. There are no areas of restricted diffusion to suggest acute ischemia. The cerebellopontine angles, internal auditory canals and the cisternal portions of the accoustico - facial nerves are unremarkable. Unremarkable exam of the skull. Normal soft tissue structures. Minimal chronic mucosal inflammatory changes of the right ethmoid air cells. The remaining visualized paranasal sinuses and mastoid air cells are clear. The visualized portions of the orbits are unremarkable. MRI/Brain W/WO Contrast IMPRESSION: Unchanged diffuse cerebral atrophy. Unchanged multiple T2 hyperintense foci in the periventricular and subcortical white matter, probably demyelinating disease. Scattered chronic ischemic foci are noted in the basal ganglia, thalami and inf ratentorial white matter. No abnormal postcontrast enhancement is noted. No MRI evidence of an acute traumatic abnormality. Reading Location: [facility]
== END | disposition home or self-care (01) ==
PROVIDERS: PCP Internal Medicine; Referring Provider Psychiatry & Neurology Neurology; Visit Provider Psychiatry & Neurology Neurology
DX: R42 Dizziness and giddiness (principal); W19.XXXA Unspecified fall, initial encounter
CPT/HCPCS: 70553; 80307; 93225; 93226; A9575

== ENCOUNTER → 2024-12-28 | Outpatient (CLI) | payer MEDICARE, MEDICAID, SELFPAY ==
--- NOTE | 2024-12-28 10:23 | RAD_ITS ---
PROCEDURE: LUMBAR SPINE 2 OR 3 VIEWS 12/28/2024 REASON FOR EXAM: FALL TECHNIQUE: LUMBAR SPINE 2 OR 3 VIEWS COMPARISON: 09/04/2024. FINDINGS: Mild levoscoliosis apex at L3. Mildly increased kyphosis of the level of the thoracolumbar junction. There are diffuse spondylotic changes. Findings are demonstrated to by diffuse disc space narrowing, osteophyte formation and degenerative endplate sclerosis. There is diffuse facet joint arthropathy with secondary bilateral neural foramina narrowing. No fracture or dislocation is seen. No aggressive lytic or blastic bony lesion is noted. Metallic clips are noted in the right upper quadrant. Moderate amount of fecal residue in the large bowels. RAD/Lumbar Spine 2 or 3 Views IMPRESSION: No evidence for acute abnormality. Reading Location: [facility]
[2024-12-28 11:27] LABS: ALB/GLOB Ratio 1.5 RATIO (0.9-2.4); AST(SGOT) 23 U/L (<=31); Alanine Aminotransfer ALT/SGPT 20 U/L (<=34); Albumin, Serum 4.6 g/dL (3.5-5.0); Alkaline Phosphatase 126 U/L (35-104); Anion Gap 13 (5-15); BUN 10 mg/dL (4-19); BUN/Creat Ratio 13.3 RATIO (10-20); Calcium,Total 9.3 mg/dL (7.6-11.0); Carbon Dioxide 22.6 mmol/L (21.0-32.0); Chloride 95 mmol/L (98-108); Creatinine, Serum 0.76 mg/dL (0.70-1.20); EST Glomerular Filtration Rate 91 (>60); Globulin 3.1 g/dL (2.2-4.2); Glucose 133 mg/dL (70-99); Protein, Total 7.6 g/dL (5.9-8.4); Sodium Level 131 mmol/L (133-145); Total Bilirubin 0.27 mg/dL (0.00-1.30)
[2024-12-28 13:28] LABS: Amphetamine Urine NEGATIVE (<1000 ng/mL); Barbiturate Urine NEGATIVE (< 200 ng/mL); Benzodiazepine Urine NEGATIVE (< 200 ng/mL); Buprenorphine Urine NEGATIVE (< 200 ng/mL); Cocaine Urine NEGATIVE (< 300 ng/mL); Fentanyl, Urine NEGATIVE; Methadone Urine NEGATIVE (< 300 ng/mL); Opiates Urine NEGATIVE (< 300 ng/mL); Oxycodone, Urine NEGATIVE (< 100 ng/mL); PCP Urine NEGATIVE (< 25 ng/mL); THC Urine NEGATIVE (< 50 ng/mL)
[2024-12-28 17:22] LABS: Carbamazepine (Tegretol) 10.1 ug/mL (4.0-12.0)
[2025-01-02 16:09] LABS: Albumin 3.9 g/dL (2.9-4.4); Alpha-1-Globulins 0.3 g/dL (0.0-0.4); Gamma Globulin 0.9 g/dL (0.4-1.8); Immunoglobulin A 178 mg/dL (87-352); Immunoglobulin G 1021 mg/dL (586-1602); Immunoglobulin M 71 mg/dL (26-217); PROEL- TOTAL PROTEIN 7.1 g/dL (6.0-8.5)
== END | disposition home or self-care (01) ==
PROVIDERS: PCP Internal Medicine; Referring Provider Psychiatry & Neurology Neurology; Visit Provider Psychiatry & Neurology Neurology
DX: M47.816 Spondylosis without myelopathy or radiculopathy, lumbar region (principal); F11.20 Opioid dependence, uncomplicated; G40.909 Epilepsy, unspecified, not intractable, without status epilepticus; M40.205 Unspecified kyphosis, thoracolumbar region; W19.XXXA Unspecified fall, initial encounter; G62.9 Polyneuropathy, unspecified
CPT/HCPCS: 36415; 72100; 80053; 80156; 80307; 82784; 84165; 86334; 86335

== ENCOUNTER → 2025-01-08 | Outpatient (CLI) | payer MEDICARE, MEDICAID, SELFPAY ==
[2025-01-08 12:38] LABS: Hematocrit 37.4 % (37-47); Hemoglobin 12.2 g/dL (12.0-15.0); Mean Corp Hgb Conc 32.6 g/dL (32-36); Mean Corpuscular Volume 91.9 fL (81-99); Mean Platelet Vol. 11.6 fl (6.2-12.0); Platelet Count 230 K/mm3 (150-450); RBC Distribution Width SD 47.4 fl (35.1-43.9); Red Blood Count 4.07 M/mm3 (4.2-5.4)
[2025-01-08 13:08] LABS: Magnesium 1.6 mg/dL (1.5-2.2)
[2025-01-08 13:10] LABS: ALB/GLOB Ratio 1.4 RATIO (0.9-2.4); AST(SGOT) 32 U/L (<=31); Alanine Aminotransfer ALT/SGPT 22 U/L (<=34); Albumin, Serum 4.6 g/dL (3.5-5.0); Alkaline Phosphatase 110 U/L (35-104); Anion Gap 16 (5-15); BUN 10 mg/dL (4-19); BUN/Creat Ratio 15.6 RATIO (10-20); Calcium,Total 9.4 mg/dL (7.6-11.0); Carbon Dioxide 21.6 mmol/L (21.0-32.0); Chloride 95 mmol/L (98-108); Creatinine, Serum 0.63 mg/dL (0.70-1.20); EST Glomerular Filtration Rate 103 (>60); Globulin 3.2 g/dL (2.2-4.2); Glucose 143 mg/dL (70-99); Potassium 3.7 mmol/L (3.3-5.1); Protein, Total 7.8 g/dL (5.9-8.4); Sodium Level 133 mmol/L (133-145); Total Bilirubin 0.32 mg/dL (0.00-1.30)
== END | disposition home or self-care (01) ==
LOC: MTLAB 09:32
PROVIDERS: PCP Internal Medicine; Referring Provider Psychiatry & Neurology Neurology; Visit Provider Psychiatry & Neurology Neurology
DX: G40.909 Epilepsy, unspecified, not intractable, without status epilepticus (principal)
CPT/HCPCS: 36415; 80053; 83735; 85027

== ENCOUNTER 2025-01-19 11:09 | Inpatient (IN) | payer MEDICARE, MEDICAID, SELFPAY ==
[2025-01-19] VITALS (20 sets, daily range): BP systolic 95–143; BP diastolic 47–73; PULSE 44–51; RESP 12–24; TEMP 36.7–37.2; O2SAT 93–100; BMI 35.8; BMI 33.5
--- NOTE | 2025-01-19 11:34 | EDS_ITS ---
HPI <CLEMENTE Bowers - Last Filed: 01/19/25 15:46> History of Present Illness Chief Complaint: Fall Narrative Narrative: 59-year-old female with past medical history of DM2, epilepsy presents after a fall and seizure. History is limited. Patient went to doctor appointment this morning and apparently after leaving had a seizure. Her sister was there and called EMS but was unable to come into the emergency room and patient is postictal so cannot provide further history other than stating she has epilepsy and takes medication for it. I spoke with her sister on the phone who witnessed the event. The patient was at the lab this morning because she needed a urine drug screen done because pain management prescribes her Charlotte for back pain. She was at the lab from 6 to 10 AM because she was unable to pee. She states she can only pee at home. The si ster was driving her home and the patient vomited. When they got home she felt weak and slid down the side of the car. She did not fall or hit her head. The sister laid her on the ground and called EMS because she knew she could not get her up and into the house. While they were waiting the patient had a seizure where both arms and both legs shook lasting about a minute. She has had similar seizures before and is prescribed Xcopri and sees Dr. Santoro. [facility] <CLEMENTE Bowers - Last Filed: 01/19/25 15:46> [facility] Medical History Diabetes mellitus, type 2 Gastroenteritis COVID-19 virus infection Bradycardia Multiple sclerosis Demyelinating disease of central nervous system Epilepsy Generalized weakness Recurrent falls Recurrent syncope Anxiety Depression COPD (chronic obstructive pulmonary disease) Migraines Multiple falls History of CVA (cerebrovascular accident) GERD (gastroesophageal reflux disease) Obesity Former tobacco use Seizure disorder Allergic rhinitis Chronic migraine Orthostasis HTN (hypertension) Psoriasis Hypercholesterolemia Home Medications ?Medication ?Instructions ?Recorded ?Last Taken ?Type albuterol sulfate 90 mcg/actuation 2 puff inhalation Q 4H PRN Wheezing 09/03/22 09/04/23 History aerosol inhaler insulin syr/ndl U100 half shirley 0.5 09/03/22 Unknown H istory mL 31 gauge x 5/16 (Droplet Insulin Syringe (half unit)) dextromethorphan 20 mg-quinidine 1 cap PO BID DEPRESSI ON 02/06/23 10/09/23 History 10 mg capsule (Nuedexta) insulin lispro 100 unit/mL 3 unit subcut .COMPLEX DIAB ETES 09/04/23 09/04/23 H istory subcutaneous solution meclizine 25 mg tablet 25 mg PO DAILY PRN vertigo 0 09/04/23 09/04/23 History nystatin 100,000 unit/gram topical 1 applic topical BI D RASH 09/04/23 10/09/23 History powder (Nyamyc) lorazepam 0.5 mg tablet 0.5 mg PO QHS PRN Anxiety Unknown History Lactobacillus rhamnosus GG 10 1 cap PO DAILY recurrent uti 05/09/24 Unknown History billion cell capsule (Culturelle) ascorbic acid (vitamin C) 500 mg 500 mg PO QDAY see pc p 05/09/24 Unknown History tablet cranberry fruit 450 mg tablet 450 mg PO TID see pcp Unknown History duloxetine 60 mg capsule,delayed 60 mg PO QDAY mental health 05/09/24 Unknown History release hydrocodone-acetaminophen 5-325mg 1 tab PO BID pain Unknown History 5mg-325mg atorvastatin 80 mg tablet 80 mg PO QHS cholesterol #90 tabs 10/30/24 Unknown Rx cephalexin 250 mg capsule 250 mg PO QHS recurrent UTI #90 10/30/24 Unknown Rx caps flash glucose scanning reader #1 ea 10/30/24 Unknown R x (FreeStyle Es 2 [place]) flash glucose sensor (FreeStyle #3 ea 10/30/24 Unknown Rx Es 2 Sensor kit) insulin glargine 100 unit/mL (3 20 unit subcut QAM karoline betes 11/09/24 Unknown History mL) subcutaneous pen handicap placard #1 ea 11/15/24 Unknown Rx fluticasone furoate 200 1 inh inhalation DAILY copd #30 ea 11/20/24 Unknown Rx mcg/actuation blister powder for inhalation (Arnuity Ellipta) mirtazapine 15 mg tablet 30 mg PO QHS sleep 12/14/24 Unknown History omeprazole 40 mg capsule,delayed 40 mg PO DAILY GERD # 90 caps 01/03/25 Unknown Rx release cenobamate 200 mg tablet (Xcopri) 200 mg PO QDAY #30 t abs 01/08/25 Unknown Rx gabapentin 800 mg tablet 800 mg PO QHS nerve pain #30 tabs 01/08/25 Unknown Rx ibuprofen 600 mg tablet 600 mg PO TID PRN headache/p ain 01/08/25 Unknown Rx #90 tabs levocarnitine 330 mg tablet 330 mg PO BID elevated amm onia #60 01/08/25 Unknown Rx tabs promethazine 12.5 mg tablet 12.5 mg PO TID PRN nausea and 01/08/25 Unknown Rx vomiting #90 tabs ubrogepant 100 mg tablet (Ubrelvy) 100 mg PO .COMPLEX MIGRAINE #14 01/08/25 Unknown Rx tabs carbamazepine 200 mg tablet 200 mg PO BID seizures 06/05 Unknown History (Tegretol) carbamazepine 300 mg 300 mg PO QHS seizures 01/19 Unknown History capsule,extended release [id number] diphenhydramine HCl 25 mg capsule 50 mg PO QHS sleep 0 01/19/25 Unknown History (Allergy (diphenhydramine)) gabapentin 300 mg capsule 300 mg PO BID pain 01/19/25 Unknown History galcanezumab-gnlm 120 mg/mL 120 mg subcut QMONTH migra kendal 01/19/25 Unknown History subcutaneous pen injector (Emgality Pen) hydroxyzine HCl 25 mg tablet 50 mg PO QHS sleep Unknown History melatonin 10 mg capsule 10 mg PO QHS sleep 01/19/25 Unknown History semaglutide 0.25 mg or 0.5 mg (2 0.25 mg subcut QWEEK diabetes 01/19/25 Unknown History mg/3 mL) subcutaneous pen injector (Ozempic) tizanidine 2 mg tablet 2 mg PO TID for muscle spasm 01/19/25 Unknown History topiramate 25 mg tablet 25 mg PO BID seizures Unknown History Allergy/AdvReac Type Severity Reaction Status Date / Time adhesive tape Allergy Intermediate Rash Verified 01/08/25 08:39 latex Allergy Rash Verified 01/08/25 08:39 levofloxacin (From Levaquin) Allergy Hives Verified 01/08/25 08:39 ondansetron (From Zofran) Allergy Hives Verified 01/08/25 08:39 nalbuphine (From Nubain) AdvReac Other Verified 01/08/25 08:39 Family History Father Hypertension Hyperlipidemia Asthma Colon cancer Mother Cancer lung Aunt Breast cancer Aunt Breast cancer Grandmother Cancer ovarian Grandfather Cancer prostate Grandmother Cancer Uncle Hypertension Aunt Hypertension Sister Hypertension Asthma Surgical History History of appendectomy Hx of tubal ligation Hx of tonsillectomy Hx of cholecystectomy Social History household members: none 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 EYES: Normal inspection. PERRL, EOMI. ENT: Normal inspection, no tongue bite. NECK: Normal inspection. RESP: No respiratory distress, CTAB. CVS: Regular rate and rhythm, no murmur, no gallop. ABD: Soft and nontender, no guarding or rebound, nondistended. Back: No external signs of trauma, tender over lumbar spine without step-offs or crepitus. SKIN: Color normal, no rash, warm, dry, intact. EXTREMITIES: Normal appearance, moving all extremities. 2+ radial and DP pulses. NEURO: Alert to self and place. Follows commands. Confused regarding further history, postictal. PSYCH: Normal affect. Const Vital Signs: 01/19/25 11:11 01/19/25 11:26 01/19/25 12:09 Temperature 98.4 F Temperature Source Oral Pulse Rate 50 L 49 L Respiratory Rate 14 Blood Pressure 136/73 H 143/67 H Blood Pressure Mean 94 92 Pulse Ox 98 98 Oxygen Delivery Method Room Air Room Air Room Air 01/19/25 13:00 01/19/25 14:00 01/19/25 15:00 Temperature Temperature Source Pulse Rate 48 L 46 L 47 L Respiratory Rate 24 H 16 Blood Pressure 135/61 H 116/59 L 110/47 L Blood Pressure Mean 85 78 68 Pulse Ox 100 99 Oxygen Delivery Method Room Air <Dr. Akil Medina DO - Last Filed: 01/19/25 20:22> Physical Exam Const Vital Signs: 01/19/25 11:11 01/19/25 11:26 01/19/25 12:09 Temperature 98.4 F Temperature Source Oral Pulse Rate 50 L 49 L Respiratory Rate 14 Blood Pressure 136/73 H 143/67 H Blood Pressure Mean 94 92 Pulse Ox 98 98 Oxygen Delivery Method Room Air Room Air Room Air 01/19/25 13:00 01/19/25 14:00 01/19/25 15:00 Temperature Temperature Source Pulse Rate 48 L 46 L 47 L Respiratory Rate 24 H 16 Blood Pressure 135/61 H 116/59 L 110/47 L Blood Pressure Mean 85 78 68 Pulse Ox 100 99 Oxygen Delivery Method Room Air [facility] <CLEMENTE Bowers - Last Filed: 01/19/25 15:46> [facility] Narrative Medical decision making narrative: History gathered from: EMS, patient's sister and limited history from the nica ent Differential: Breakthrough seizure, electrolyte derangement, intracranial process 59-year-old female with past medical history of type 2 diabetes and epilepsy presents after an episode of vomiting, weakness, and then a seizure this morning. Her sister was there and states she slid to the ground but did not fall or hit her head. She is awake and alert x 2 but appears postictal. She has no external signs of injury. Vitals are stable at 136/73, bradycardic at 50 bpm appears similar to previous, 98% on room air, afebrile. Exam is notable for lower lumbar tenderness without step-offs and she is moving all extremities without neurovascular compromise. WBC is 12.2. Hemoglobin 11.6 appears chronic. Sodium is 121, glucose 182, CO2 15.9, gap 16. Lactic 2.5. She was given IV fluids and VBG and ketones were ordered. Venous blood gas shows pH is high at 7.477 and ketones are negative ruling out DKA. Urinalysis is negative for infection. CT brain and cervical spine are negative. CT of the lumbar spine shows nondisplaced fracture of the right L2 transverse process. This is nonoperative and treated with pain control. She is prescribed Charlotte for her back from pain management. Alcohol and drug screens are negative. Patient still has not returned to baseline and with her significant hyponatremia requires admission. I discussed the case with Dr. Davalos who recommended load ing her with IV Keppra 1000 mg and she was admitted to the ICU. Lab Data Attestation: I reviewed the patient's lab results. Labs: Laboratory Results - last 24 hr 01/19/25 01/19/25 01/19/25 11:56 11:56 11:56 WBC 12.2 H RBC 3.87 L Hgb 11.6 L Hct 36.7 L MCV 94.8 MCH 30.0 MCHC 31.6 L RDW Std Deviation 48.6 H RDW Coeff of He 14.1 Plt Count TNP MPV 10.8 Immature Gran % (Auto) 0.700 Neut % (Auto) 77.1 H Lymph % (Auto) 14.4 L [place] % (Auto) 6.7 Eos % (Auto) 0.7 Baso % (Auto) 0.4 Absolute Neuts (auto) 9.4 H Absolute Lymphs (auto) 1.76 Nucleated RBC % 0 Platelet Estimate ADEQUATE Sodium 121 L 122 L Potassium 4.3 4.4 Chloride 88 L Carbon Dioxide Anion Gap BUN Creatinine Estim Creat Clear Calc Est GFR (MDRD) Non-Af BUN/Creatinine Ratio Glucose Lactic Acid Calcium Magnesium Total Bilirubin AST ALT Alkaline Phosphatase Ammonia Total Protein Albumin Globulin Albumin/Globulin Ratio b-Hydroxybutyric mmol/L Procalcitonin TSH Urine Color Urine Clarity Urine pH Ur Specific [place] Urine Protein Urine Glucose (UA) Urine Ketones Urine Occult Blood Urine Nitrite Urine Bilirubin Urine Urobilinogen Ur Leukocyte Esterase Urine RBC Urine WBC Ur Squamous Epith Cells Urine Bacteria Urine Mucus Urine Osmolality Ur Random Sodium Urine Creatinine Urine Opiates Screen U Buprenorphine Qual Ur Oxycodone Screen Urine Methadone Screen Urine Fentanyl Screen Ur Barbiturates Screen Carbamazepine Ur Phencyclidine Scrn Ur Amphetamines Screen U Benzodiazepines Scrn Urine Cocaine Screen U Cannabinoids Screen Ethyl Alcohol 01/19/25 01/19/25 01/19/25 11:56 11:56 11:56 WBC RBC Hgb Hct MCV MCH MCHC RDW Std Deviation RDW Coeff of He Plt Count MPV Immature Gran % (Auto) Neut % (Auto) Lymph % (Auto) [place] % (Auto) Eos % (Auto) Baso % (Auto) Absolute Neuts (auto) Absolute Lymphs (auto) Nucleated RBC % Platelet Estimate Sodium Potassium Chloride 90 L Carbon Dioxide 15.9 L 12.1 L Anion Gap 16 H 20 H BUN 12 Creatinine Estim Creat Clear Calc Est GFR (MDRD) Non-Af BUN/Creatinine Ratio Glucose Lactic Acid Calcium Magnesium Total Bilirubin AST ALT Alkaline Phosphatase Ammonia Total Protein Albumin Globulin Albumin/Globulin Ratio b-Hydroxybutyric mmol/L Procalcitonin TSH Urine Color Urine Clarity Urine pH Ur Specific [place] Urine Protein Urine Glucose (UA) Urine Ketones Urine Occult Blood Urine Nitrite Urine Bilirubin Urine Urobilinogen Ur Leukocyte Esterase Urine RBC Urine WBC Ur Squamous Epith Cells Urine Bacteria Urine Mucus Urine Osmolality Ur Random Sodium Urine Creatinine Urine Opiates Screen U Buprenorphine Qual Ur Oxycodone Screen Urine Methadone Screen Urine Fentanyl Screen Ur Barbiturates Screen Carbamazepine Ur Phencyclidine Scrn Ur Amphetamines Screen U Benzodiazepines Scrn Urine Cocaine Screen U Cannabinoids Screen Ethyl Alcohol 01/19/25 01/19/25 01/19/25 11:56 11:56 11:56 WBC RBC Hgb Hct MCV MCH MCHC RDW Std Deviation RDW Coeff of He Plt Count MPV Immature Gran % (Auto) Neut % (Auto) Lymph % (Auto) [place] % (Auto) Eos % (Auto) Baso % (Auto) Absolute Neuts (auto) Absolute Lymphs (auto) Nucleated RBC % Platelet Estimate Sodium Potassium Chloride Carbon Dioxide Anion Gap BUN 13 Creatinine 0.74 0.71 Estim Creat Clear Calc 95.86 99.82 Est GFR (MDRD) Non-Af 94 BUN/Creatinine Ratio Glucose Lactic Acid Calcium Magnesium Total Bilirubin AST ALT Alkaline Phosphatase Ammonia Total Protein Albumin Globulin Albumin/Globulin Ratio b-Hydroxybutyric mmol/L Procalcitonin TSH Urine Color Urine Clarity Urine pH Ur Specific [place] Urine Protein Urine Glucose (UA) Urine Ketones Urine Occult Blood Urine Nitrite Urine Bilirubin Urine Urobilinogen Ur Leukocyte Esterase Urine RBC Urine WBC Ur Squamous Epith Cells Urine Bacteria Urine Mucus Urine Osmolality Ur Random Sodium Urine Creatinine Urine Opiates Screen U Buprenorphine Qual Ur Oxycodone Screen Urine Methadone Screen Urine Fentanyl Screen Ur Barbiturates Screen Carbamazepine Ur Phencyclidine Scrn Ur Amphetamines Screen U Benzodiazepines Scrn Urine Cocaine Screen U Cannabinoids Screen Ethyl Alcohol 01/19/25 01/19/25 01/19/25 11:56 11:56 11:56 WBC RBC Hgb Hct MCV MCH MCHC RDW Std Deviation RDW Coeff of He Plt Count MPV Immature Gran % (Auto) Neut % (Auto) Lymph % (Auto) [place] % (Auto) Eos % (Auto) Baso % (Auto) Absolute Neuts (auto) Absolute Lymphs (auto) Nucleated RBC % Platelet Estimate Sodium Potassium Chloride Carbon Dioxide Anion Gap BUN Creatinine Estim Creat Clear Calc Est GFR (MDRD) Non-Af 99 BUN/Creatinine Ratio 16.8 18.2 Glucose 182 H 179 H Lactic Acid Calcium 8.9 Magnesium Total Bilirubin AST ALT Alkaline Phosphatase Ammonia Total Protein Albumin Globulin Albumin/Globulin Ratio b-Hydroxybutyric mmol/L Procalcitonin TSH Urine Color Urine Clarity Urine pH Ur Specific [place] Urine Protein Urine Glucose (UA) Urine Ketones Urine Occult Blood Urine Nitrite Urine Bilirubin Urine Urobilinogen Ur Leukocyte Esterase Urine RBC Urine WBC Ur Squamous Epith Cells Urine Bacteria Urine Mucus Urine Osmolality Ur Random Sodium Urine Creatinine Urine Opiates Screen U Buprenorphine Qual Ur Oxycodone Screen Urine Methadone Screen Urine Fentanyl Screen Ur Barbiturates Screen Carbamazepine Ur Phencyclidine Scrn Ur Amphetamines Screen U Benzodiazepines Scrn Urine Cocaine Screen U Cannabinoids Screen Ethyl Alcohol 01/19/25 01/19/25 01/19/25 11:56 12:10 12:32 WBC RBC Hgb Hct MCV MCH MCHC RDW Std Deviation RDW Coeff of He Plt Count MPV Immature Gran % (Auto) Neut % (Auto) Lymph % (Auto) [place] % (Auto) Eos % (Auto) Baso % (Auto) Absolute Neuts (auto) Absolute Lymphs (auto) Nucleated RBC % Platelet Estimate Sodium Potassium Chloride Carbon Dioxide Anion Gap BUN Creatinine Estim Creat Clear Calc Est GFR (MDRD) Non-Af BUN/Creatinine Ratio Glucose Lactic Acid 2.5 H* Calcium 8.7 Magnesium 1.6 Total Bilirubin 0.27 AST 26 ALT 19 Alkaline Phosphatase 115 H Ammonia 40.3 Total Protein 7.3 Albumin 4.3 Globulin 3.0 Albumin/Globulin Ratio 1.5 b-Hydroxybutyric mmol/L 0.1 Procalcitonin 0.04 TSH 1.420 Urine Color Urine Clarity Urine pH Ur Specific [place] Urine Protein Urine Glucose (UA) Urine Ketones Urine Occult Blood Urine Nitrite Urine Bilirubin Urine Urobilinogen Ur Leukocyte Esterase Urine RBC Urine WBC Ur Squamous Epith Cells Urine Bacteria Urine Mucus Urine Osmolality Ur Random Sodium Urine Creatinine Urine Opiates Screen Cancelled U Buprenorphine Qual Cancelled Ur Oxycodone Screen Cancelled Urine Methadone Screen Cancelled Urine Fentanyl Screen Cancelled Ur Barbiturates Screen Cancelled Carbamazepine 9.3 Ur Phencyclidine Scrn Cancelled Ur Amphetamines Screen Cancelled U Benzodiazepines Scrn Cancelled Urine Cocaine Screen Cancelled U Cannabinoids Screen Cancelled Ethyl Alcohol < 10.1 01/19/25 12:49 WBC RBC Hgb Hct MCV MCH MCHC RDW Std Deviation RDW Coeff of He Plt Count MPV Immature Gran % (Auto) Neut % (Auto) Lymph % (Auto) [place] % (Auto) Eos % (Auto) Baso % (Auto) Absolute Neuts (auto) Absolute Lymphs (auto) Nucleated RBC % Platelet Estimate Sodium Potassium Chloride Carbon Dioxide Anion Gap BUN Creatinine Estim Creat Clear Calc Est GFR (MDRD) Non-Af BUN/Creatinine Ratio Glucose Lactic Acid Calcium Magnesium Total Bilirubin AST ALT Alkaline Phosphatase Ammonia Total Protein Albumin Globulin Albumin/Globulin Ratio b-Hydroxybutyric mmol/L Procalcitonin TSH Urine Color Yellow Urine Clarity Sl. Cloudy Urine pH 6.0 Ur Specific [place] 1.015 Urine Protein 15 H Urine Glucose (UA) Normal Urine Ketones Negative Urine Occult Blood Negative Urine Nitrite Negative Urine Bilirubin Negative Urine Urobilinogen Normal Ur Leukocyte Esterase Negative Urine RBC 0 SEEN Urine WBC 0 SEEN Ur Squamous Epith Cells 0-5 SEEN Urine Bacteria 0 SEEN Urine Mucus 0 SEEN Urine Osmolality 308 Ur Random Sodium 32 Urine Creatinine 62.70 Urine Opiates Screen NEGATIVE U Buprenorphine Qual NEGATIVE Ur Oxycodone Screen NEGATIVE Urine Methadone Screen NEGATIVE Urine Fentanyl Screen NEGATIVE Ur Barbiturates Screen NEGATIVE Carbamazepine Ur Phencyclidine Scrn NEGATIVE Ur Amphetamines Screen NEGATIVE U Benzodiazepines Scrn NEGATIVE Urine Cocaine Screen NEGATIVE U Cannabinoids Screen NEGATIVE Ethyl Alcohol ABG Data ABG results: ABG 01/19/25 14:02 Specimen Type STEVE Sample Site Not entered VBG pH 7.48 H VBG pO2 64 H VBG HCO3 18 L VBG Total CO2 19 L VBG O2 Sat (Calc) 94 H VBG Base Excess -6 L POC Mix VBG pCO2 Pt Tmp 24.2 L O2 Delivery Device Not entered Radiography Diagnostic Testing: Clinical Impression(s) from Imaging Studies Chest X-Ray 01/19/25 13:10 IMPRESSION: Right upper quadrant abdominal surgical clips are seen. The lateral view is significantly limited by patient motion, as well as hypoinflation. Lungs are significantly hypoinflated, but no acute pneumonic process is seen. No pleural effusion or pneumothorax is noted. The cardiomediastinal silhouette is within the normal range for age and technique. No evidence of cardiomegaly. No acute osseous change is noted. Reading Location: [id number] Brain CT 01/19/25 13:15 IMPRESSION: No acute intracranial abnormality. Chronic and ancillary findings as above. Reading Location: [id number] Cervical Spine CT 01/19/25 13:15 IMPRESSION: No acute cervical spine fracture. Spondylosis. Reading Location: [id number] Lumbar Spine CT 01/19/25 13:15 IMPRESSION: Nondisplaced fracture of the right L2 transverse process. Reading Location: [id number] <Dr. Akil Medina, DO - Last Filed: 01/19/25 20:22> [facility] MDM Narrative Medical decision making narrative: History gathered from: EMS, patient's sister and limited history from the patient Differential: Breakthrough seizure, electrolyte derangement, intracranial process 59-year-old female with past medical history of type 2 diabetes and epilepsy presents after an episode of vomiting, weakness, and then a seizure this morning. Her sister was there and states she slid to the ground but did not fall or hit her head. She is awake and alert x 2 but appears postictal. She has no external signs of injury. Vitals are stable at 136/73, bradycardic at 50 bpm appears similar to previous, 98% on room air, afebrile. Exam is notable for lower lumbar tenderness without step-offs and she is moving all extremities without neurovascular compromise. WBC is 12.2. Hemoglobin 11.6 appears chronic. Sodium is 121, glucose 182, CO2 15.9, gap 16. Lactic 2.5. She was given IV fluids and VBG and ketones were ordered. Venous blood gas shows pH is high at 7.477 and ketones are negative ruling out DKA. Urinalysis is negative for infection. CT brain and cervical spine are negative. CT of the lumbar spine shows nondisplaced fracture of the right L2 transverse process. This is nonoperative and treated with pain control. She is prescribed Charlotte for her back from pain management. Alcohol and drug screens are negative. Patient still has not returned to baseline and with her significant hyponatremia requires admission. I discussed the case with Dr. Davalos who recommended loading her with IV Keppra 1000 mg and she was admitted to the ICU. Supervisory Physician Note Patient was seen and examined with the Advanced Practice Provider. Nursing notes and vital signs have been reviewed. Pertinent old records have been reviewed. I agree with the essential elements of the FLYNN's history, physical exam, assessment, and plan. The differential diagnosis and management options were discussed with the FLYNN. I participated in determining and agree with the management, procedures, final impression and disposition as documented. See changes noted by me. Please see addendum or separate note for any additional details. 59-year-old female with history of epilepsy presents for evaluation of seizure and possible fall. Patient is confused and therefore poor historian. See FLYNN HPI. ECG was interpreted by me and contributed to patient care in the ED. It showed wide QRS with right bundle branch block and left anterior fascicular block. Heart rate 48. This is similar to previous EKG Plain images were interpreted by the radiologist and me, and contributed to patient care in the ED. No pneumonia, effusion, cardiomegaly, pneumothorax. Radiology in agreement. Gen: Fatigued & Ox2-knew herself and birthday, did not know the month but knew the year, thought she was in a different [facility] hospital. Admits that she feels confused. Head: Normocephalic, atraumatic Eyes: No sclera icterus, conjunctiva clear, PERRL, EOMI ENT: TMs clear BL, moist mucous membranes, atraumatic Neck: Trachea midline, No JVD, Nontender CV: RRR, no murmurs, no chest wall TTP Resp: Lungs CTA BL, no w/r/c GI: Abd soft, non-distended, non-tender, no r/r/g Musc: Full ROM, no deformity, lumbar spine tender to palpation-no obvious signs of trauma (states she always has tenderness to her back), no eduardo step-offs Skin: Warm, dry, intact Neuro: Grossly intact, sensation intact Differential diagnosis includes but is not limited to breakthrough seizure, electrolyte abnormality, DIANE, intracranial abnormality/head bleed, spinal fracture, pneumonia, UTI, substance intoxication NS bolus ordered. CBC with mild leukocytosis of 12.2. Patient has baseline anemia of 11.6. BMP with acute hyponatremia of 121 with a glucose of 182 and a gap of 16. Patient is a known diabetic. Will add on DKA labs. Her lactic is 2.5. This may be secondary to dehydration as well as elevated from seizure. Magnesium unremarkable. Ammonia level unremarkable. UA negative for UTI and ketones. Beta hydroxybutyrate unremarkable. VBG without acidosis. Patient is not in DKA. Drug screen negative. Alcohol level unremarkable. CT of the brain and cervical spine without any acute traumatic injury. CT of the lumbar spine shows nondisplaced fracture of the right L2 transverse process. This is nonoperative. On reevaluation, patient is still confused I think this is likely encephalopathy secondary to hyponatremia. Patient will warrant admission. She confirmed understanding of plan. Impression: 1. Encephalopathy, multifactorial, hyponatremia versus postictal phase 2. Acute hyponatremia 3. Breakthrough seizure 4. Right L2 transverse process fracture 5. Hyperglycemia with known diabetes 6. Lactic acidosis, seizure versus dehydration Lab Data Labs: Laboratory Results - last 24 hr 01/19/25 01/19/25 01/19/25 11:56 11:56 11:56 WBC 12.2 H RBC 3.87 L Hgb 11.6 L Hct 36.7 L MCV 94.8 MCH 30.0 MCHC 31.6 L RDW Std Deviation 48.6 H RDW Coeff of He 14.1 Plt Count TNP MPV 10.8 Immature Gran % (Auto) 0.700 Neut % (Auto) 77.1 H Lymph % (Auto) 14.4 L [place] % (Auto) 6.7 Eos % (Auto) 0.7 Baso % (Auto) 0.4 Absolute Neuts (auto) 9.4 H Absolute Lymphs (auto) 1.76 Nucleated RBC % 0 Platelet Estimate ADEQUATE Sodium 121 L 122 L Potassium 4.3 4.4 Chloride 88 L Carbon Dioxide Anion Gap BUN Creatinine Estim Creat Clear Calc Est GFR (MDRD) Non-Af BUN/Creatinine Ratio Glucose Lactic Acid Calcium Magnesium Total Bilirubin AST ALT Alkaline Phosphatase Ammonia Total Protein Albumin Globulin Albumin/Globulin Ratio b-Hydroxybutyric mmol/L Procalcitonin TSH Urine Color Urine Clarity Urine pH Ur Specific [place] Urine Protein Urine Glucose (UA) Urine Ketones Urine Occult Blood Urine Nitrite Urine Bilirubin Urine Urobilinogen Ur Leukocyte Esterase Urine RBC Urine WBC Ur Squamous Epith Cells Urine Bacteria Urine Mucus Urine Osmolality Ur Random Sodium Urine Creatinine Urine Opiates Screen U Buprenorphine Qual Ur Oxycodone Screen Urine Methadone Screen Urine Fentanyl Screen Ur Barbiturates Screen Carbamazepine Ur Phencyclidine Scrn Ur Amphetamines Screen U Benzodiazepines Scrn Urine Cocaine Screen U Cannabinoids Screen Ethyl Alcohol 01/19/25 01/19/25 01/19/25 11:56 11:56 11:56 WBC RBC Hgb Hct MCV MCH MCHC RDW Std Deviation RDW Coeff of He Plt Count MPV Immature Gran % (Auto) Neut % (Auto) Lymph % (Auto) [place] % (Auto) Eos % (Auto) Baso % (Auto) Absolute Neuts (auto) Absolute Lymphs (auto) Nucleated RBC % Platelet Estimate Sodium Potassium Chloride 90 L Carbon Dioxide 15.9 L 12.1 L Anion Gap 16 H 20 H BUN 12 Creatinine Estim Creat Clear Calc Est GFR (MDRD) Non-Af BUN/Creatinine Ratio Glucose Lactic Acid Calcium Magnesium Total Bilirubin AST ALT Alkaline Phosphatase Ammonia Total Protein Albumin Globulin Albumin/Globulin Ratio b-Hydroxybutyric mmol/L Procalcitonin TSH Urine Color Urine Clarity Urine pH Ur Specific [place] Urine Protein Urine Glucose (UA) Urine Ketones Urine Occult Blood Urine Nitrite Urine Bilirubin Urine Urobilinogen Ur Leukocyte Esterase Urine RBC Urine WBC Ur Squamous Epith Cells Urine Bacteria Urine Mucus Urine Osmolality Ur Random Sodium Urine Creatinine Urine Opiates Screen U Buprenorphine Qual Ur Oxycodone Screen Urine Methadone Screen Urine Fentanyl Screen Ur Barbiturates Screen Carbamazepine Ur Phencyclidine Scrn Ur Amphetamines Screen U Benzodiazepines Scrn Urine Cocaine Screen U Cannabinoids Screen Ethyl Alcohol 01/19/25 01/19/25 01/19/25 11:56 11:56 11:56 WBC RBC Hgb Hct MCV MCH MCHC RDW Std Deviation RDW Coeff of He Plt Count MPV Immature Gran % (Auto) Neut % (Auto) Lymph % (Auto) [place] % (Auto) Eos % (Auto) Baso % (Auto) Absolute Neuts (auto) Absolute Lymphs (auto) Nucleated RBC % Platelet Estimate Sodium Potassium Chloride Carbon Dioxide Anion Gap BUN 13 Creatinine 0.74 0.71 Estim Creat Clear Calc 95.86 99.82 Est GFR (MDRD) Non-Af 94 BUN/Creatinine Ratio Glucose Lactic Acid Calcium Magnesium Total Bilirubin AST ALT Alkaline Phosphatase Ammonia Total Protein Albumin Globulin Albumin/Globulin Ratio b-Hydroxybutyric mmol/L Procalcitonin TSH Urine Color Urine Clarity Urine pH Ur Specific [place] Urine Protein Urine Glucose (UA) Urine Ketones Urine Occult Blood Urine Nitrite Urine Bilirubin Urine Urobilinogen Ur Leukocyte Esterase Urine RBC Urine WBC Ur Squamous Epith Cells Urine Bacteria Urine Mucus Urine Osmolality Ur Random Sodium Urine Creatinine Urine Opiates Screen U Buprenorphine Qual Ur Oxycodone Screen Urine Methadone Screen Urine Fentanyl Screen Ur Barbiturates Screen Carbamazepine Ur Phencyclidine Scrn Ur Amphetamines Screen U Benzodiazepines Scrn Urine Cocaine Screen U Cannabinoids Screen Ethyl Alcohol 01/19/25 01/19/25 01/19/25 11:56 11:56 11:56 WBC RBC Hgb Hct MCV MCH MCHC RDW Std Deviation RDW Coeff of He Plt Count MPV Immature Gran % (Auto) Neut % (Auto) Lymph % (Auto) [place] % (Auto) Eos % (Auto) Baso % (Auto) Absolute Neuts (auto) Absolute Lymphs (auto) Nucleated RBC % Platelet Estimate Sodium Potassium Chloride Carbon Dioxide Anion Gap BUN Creatinine Estim Creat Clear Calc Est GFR (MDRD) Non-Af 99 BUN/Creatinine Ratio 16.8 18.2 Glucose 182 H 179 H Lactic Acid Calcium 8.9 Magnesium Total Bilirubin AST ALT Alkaline Phosphatase Ammonia Total Protein Albumin Globulin Albumin/Globulin Ratio b-Hydroxybutyric mmol/L Procalcitonin TSH Urine Color Urine Clarity Urine pH Ur Specific [place] Urine Protein Urine Glucose (UA) Urine Ketones Urine Occult Blood Urine Nitrite Urine Bilirubin Urine Urobilinogen Ur Leukocyte Esterase Urine RBC Urine WBC Ur Squamous Epith Cells Urine Bacteria Urine Mucus Urine Osmolality Ur Random Sodium Urine Creatinine Urine Opiates Screen U Buprenorphine Qual Ur Oxycodone Screen Urine Methadone Screen Urine Fentanyl Screen Ur Barbiturates Screen Carbamazepine Ur Phencyclidine Scrn Ur Amphetamines Screen U Benzodiazepines Scrn Urine Cocaine Screen U Cannabinoids Screen Ethyl Alcohol 01/19/25 01/19/25 01/19/25 11:56 12:10 12:32 WBC RBC Hgb Hct MCV MCH MCHC RDW Std Deviation RDW Coeff of He Plt Count MPV Immature Gran % (Auto) Neut % (Auto) Lymph % (Auto) [place] % (Auto) Eos % (Auto) Baso % (Auto) Absolute Neuts (auto) Absolute Lymphs (auto) Nucleated RBC % Platelet Estimate Sodium Potassium Chloride Carbon Dioxide Anion Gap BUN Creatinine Estim Creat Clear Calc Est GFR (MDRD) Non-Af BUN/Creatinine Ratio Glucose Lactic Acid 2.5 H* Calcium 8.7 Magnesium 1.6 Total Bilirubin 0.27 AST 26 ALT 19 Alkaline Phosphatase 115 H Ammonia 40.3 Total Protein 7.3 Albumin 4.3 Globulin 3.0 Albumin/Globulin Ratio 1.5 b-Hydroxybutyric mmol/L 0.1 Procalcitonin 0.04 TSH 1.420 Urine Color Urine Clarity Urine pH Ur Specific [place] Urine Protein Urine Glucose (UA) Urine Ketones Urine Occult Blood Urine Nitrite Urine Bilirubin Urine Urobilinogen Ur Leukocyte Esterase Urine RBC Urine WBC Ur Squamous Epith Cells Urine Bacteria Urine Mucus Urine Osmolality Ur Random Sodium Urine Creatinine Urine Opiates Screen Cancelled U Buprenorphine Qual Cancelled Ur Oxycodone Screen Cancelled Urine Methadone Screen Cancelled Urine Fentanyl Screen Cancelled Ur Barbiturates Screen Cancelled Carbamazepine 9.3 Ur Phencyclidine Scrn Cancelled Ur Amphetamines Screen Cancelled U Benzodiazepines Scrn Cancelled Urine Cocaine Screen Cancelled U Cannabinoids Screen Cancelled Ethyl Alcohol < 10.1 01/19/25 12:49 WBC RBC Hgb Hct MCV MCH MCHC RDW Std Deviation RDW Coeff of He Plt Count MPV Immature Gran % (Auto) Neut % (Auto) Lymph % (Auto) [place] % (Auto) Eos % (Auto) Baso % (Auto) Absolute Neuts (auto) Absolute Lymphs (auto) Nucleated RBC % Platelet Estimate Sodium Potassium Chloride Carbon Dioxide Anion Gap BUN Creatinine Estim Creat Clear Calc Est GFR (MDRD) Non-Af BUN/Creatinine Ratio Glucose Lactic Acid Calcium Magnesium Total Bilirubin AST ALT Alkaline Phosphatase Ammonia Total Protein Albumin Globulin Albumin/Globulin Ratio b-Hydroxybutyric mmol/L Procalcitonin TSH Urine Color Yellow Urine Clarity Sl. Cloudy Urine pH 6.0 Ur Specific [place] 1.015 Urine Protein 15 H Urine Glucose (UA) Normal Urine Ketones Negative Urine Occult Blood Negative Urine Nitrite Negative Urine Bilirubin Negative Urine Urobilinogen Normal Ur Leukocyte Esterase Negative Urine RBC 0 SEEN Urine WBC 0 SEEN Ur Squamous Epith Cells 0-5 SEEN Urine Bacteria 0 SEEN Urine Mucus 0 SEEN Urine Osmolality 308 Ur Random Sodium 32 Urine Creatinine 62.70 Urine Opiates Screen NEGATIVE U Buprenorphine Qual NEGATIVE Ur Oxycodone Screen NEGATIVE Urine Methadone Screen NEGATIVE Urine Fentanyl Screen NEGATIVE Ur Barbiturates Screen NEGATIVE Carbamazepine Ur Phencyclidine Scrn NEGATIVE Ur Amphetamines Screen NEGATIVE U Benzodiazepines Scrn NEGATIVE Urine Cocaine Screen NEGATIVE U Cannabinoids Screen NEGATIVE Ethyl Alcohol ABG Data ABG results: ABG 01/19/25 14:02 Specimen Type STEVE Sample Site Not entered VBG pH 7.48 H VBG pO2 64 H VBG HCO3 18 L VBG Total CO2 19 L VBG O2 Sat (Calc) 94 H VBG Base Excess -6 L POC Mix VBG pCO2 Pt Tmp 24.2 L O2 Delivery Device Not entered Radiography Diagnostic Testing: Clinical Impression(s) from Imaging Studies Chest X-Ray 01/19/25 13:10 IMPRESSION: Right upper quadrant abdominal surgical clips are seen. The lateral view is significantly limited by patient motion, as well as hypoinflation. Lungs are significantly hypoinflated, but no acute pneumonic process is seen. No pleural effusion or pneumothorax is noted. The cardiomediastinal silhouette is within the normal range for age and technique. No evidence of cardiomegaly. No acute osseous change is noted. Reading Location: [id number] Brain CT 01/19/25 13:15 IMPRESSION: No acute intracranial abnormality. Chronic and ancillary findings as above. Reading Location: [id number] Cerv[address] 01/19/25 13:15 IMPRESSION: No acute cervical spine fracture. Spondylosis. Reading Location: [id number] Lumbar Spine [address] 01/19/25 13:15 IMPRESSION: Nondisplaced fracture of the right L2 transverse process. Reading Location: [id number] Discharge Plan Dx/Rx/DC Orders Clinical Impression: Seizure, Epilepsy, Acute hyponatremia, Closed fracture of transverse process of lumbar vertebra, Altered mental status, Hx of type 2 diabetes mellitus Disposition Disposition: Acute Care [facility] Discharge Date/Time: 01/19/25 16:49
[2025-01-19 12:08] LABS: Hematocrit 36.7 % (37-47); Hemoglobin 11.6 g/dL (12.0-15.0); Immature Granulocytes Count 0.080 X10^3/uL (0.0-0.0); Mean Corp Hgb Conc 31.6 g/dL (32-36); Mean Corpuscular Volume 94.8 fL (81-99); Mean Platelet Vol. 10.8 fl (6.2-12.0); NRBC Flagged by Analyzer 0 % (0-5); POSITIVE COUNT YES; RBC Distribution Width CV 14.1 % (11.6-14.6); RBC Distribution Width SD 48.6 fl (35.1-43.9); Red Blood Count 3.87 M/mm3 (4.2-5.4); White Blood Count 12.2 K/mm3 (4.4-11.0)
[2025-01-19 12:53] LABS: Mucous, Urine 0 SEEN /hpf (<or=2+); Red Blood Cells-Urine 0 SEEN /hpf (0-5)
[2025-01-19 12:58] LABS: Ammonia 40.3 umol/L (11-51)
[2025-01-19 12:59] LABS: Color, Urine Yellow (Yellow); Glucose, Dipstick Normal (Normal); Ketone-Dipstick Negative (Negative); Leukocyte Esterase-Dipstick Negative /ul (Negative); Nitrite-Dipstick Negative (Negative); Occult Blood-Urine Negative /ul (Negative); Protein-Dipstick 15 mg/dl (Negative); Specific Gravity, Urine 1.015 (1.002-1.030); Urine Bilirubin Dipstick Negative (Negative)
[2025-01-19 12:59] LABS: AST(SGOT) 26 U/L (<=31); Alanine Aminotransfer ALT/SGPT 19 U/L (<=34); Albumin, Serum 4.3 g/dL (3.5-5.0); Alkaline Phosphatase 115 U/L (35-104); Anion Gap 16 (5-15); BUN 12 mg/dL (4-19); BUN/Creat Ratio 16.8 RATIO (10-20); Calcium,Total 8.9 mg/dL (7.6-11.0); Carbon Dioxide 15.9 mmol/L (21.0-32.0); Chloride 88 mmol/L (98-108); Estimated Creatinine Clearance 95.86 ml/min (50-250); Globulin 3.0 g/dL (2.2-4.2); Glucose 182 mg/dL (70-99); Potassium 4.3 mmol/L (3.3-5.1)
[2025-01-19 13:09] LABS: Differential Indicated SCAN CRITERIA MET
--- NOTE | 2025-01-19 13:10 | RAD_ITS ---
PROCEDURE: CHEST PA AND LATERAL 01/19/2025 REASON FOR EXAM: SEIZURE TECHNIQUE: Three-view AP and lateral chest COMPARISON: AP chest of 09/11/2024. RAD/Chest PA and Lateral IMPRESSION: Right upper quadrant abdominal surgical clips are seen. The lateral view is significantly limited by patient motion, as well as hypoinf lation. Lungs are significantly hypoinflated, but no acute pneumonic process is seen. No pleural effusion or pneumothorax is noted. The cardiomediastinal silhouette is within the normal range for age and techniq ue. No evidence of cardiomegaly. No acute osseous change is noted. Reading Location: [address]
--- NOTE | 2025-01-19 13:15 | CT_ITS ---
PROCEDURE: BRAIN/HEAD WITHOUT CONTRAST 01/19/2025 REASON FOR EXAM: FALL TECHNIQUE: BRAIN/HEAD WITHOUT CONTRAST Coronal and Sagittal reconstruction series were provided. One or more dose reduction techniques were used (e.g., Automated exposure control, adjustment of the mA and/or kV according to patient size, use of iterative reconstruction technique. RADIATION DOSE SUMMARY: CTDlvol: 44.99 mGy DLP: 863.60 mGycm COMPARISON: 12/23/2024. FINDINGS: Moderate global parenchymal atrophy. Periventricular white matter hypodensity which may represent chronic microvascular ischemia or chronic demyelination (correlate with clinical history). No evidence of acute hemorrhage or infarction. Bilateral basal nucleus chronic lacunar infarctions no extra-axial blood or fluid collections. The paranasal sinuses and mastoid air cells are clear. The calvarial vault and skull base are intact. CT/Brain/Head without Contrast IMPRESSION: No acute intracranial abnormality. Chronic and ancillary findings as above. Reading Location: [id number]
--- NOTE | 2025-01-19 13:15 | CT_ITS ---
PROCEDURE: SPINE CERVICAL WITHOUT CONTRAS 01/19/2025 REASON FOR EXAM: FALLL TECHNIQUE: SPINE CERVICAL WITHOUT CONTRAS Coronal and Sagittal reconstruction series were provided. One or more dose reduction techniques were used (e.g., Automated exposure control, adjustment of the mA and/or kV according to patient size, use of iterative reconstruction technique. RADIATION DOSE SUMMARY: CTDlvol: 31.43 mGy DLP: 676.99 mGycm COMPARISON: 12/14/2024. FINDINGS: No evidence of acute fracture or dislocation. Moderate degenerative changes of the visualized spine. Vertebral body heights are maintained. Straightening of the normal cervical lordosis. CT/Spine Cervical without Contras IMPRESSION: No acute cervical spine fracture. Spondylosis. Reading Location: [place] [id number]
--- NOTE | 2025-01-19 13:15 | CT_ITS ---
PROCEDURE: SPINE LUMBAR WITHOUT CONTRAST 01/19/2025 REASON FOR EXAM: FALL TECHNIQUE: SPINE LUMBAR WITHOUT CONTRAST Coronal and Sagittal reconstruction series were provided. One or more dose reduction techniques were used (e.g., Automated exposure control, adjustment of the mA and/or kV according to patient size, use of iterative reconstruction technique COMPARISON: None. RADIATION DOSE SUMMARY: CTDlvol: 43.73 mGy DLP: 1609.34 mGycm FINDINGS: Nondisplaced fracture of the right L2 transverse process. Vertebral body heights are maintained. [id number] discogenic degenerative changes of the visualized spine. CT/Spine Lumbar without Contrast IMPRESSION: Nondisplaced fracture of the right L2 transverse process. Reading Location: [place] [id number]
[2025-01-19 13:27] LABS: Squamous Epithelial Cells - UA 0-5 SEEN /hpf (5-10)
[2025-01-19 13:31] LABS: Alcohol, Blood (Medical)-Serum < 10.1 mg/dL (<=10.0)
--- NOTE | 2025-01-19 13:40 | ED.RN ---
Critical Lactic Acid received from lab of 2.5. Dr. Cruz notified
[2025-01-19] MEDS: 0.9% Normal Saline (1000mL) 1,000 ML 1000 ML IV (13:51)
[2025-01-19 14:05] LABS: SITE Not entered; VBG BASE EXCESS -6 mmol/L (-1.0-3.5); VBG PO2 64 mmHg (25-40); VBG SO2 94 % (50-70); VBG TCO2 19 mmol/L (23-33)
[2025-01-19 14:40] LABS: BETA-HYDROXYBUTYRATE 0.1 mmol/L (0.0-0.3)
--- NOTE | 2025-01-19 15:06 | PCM.HP.STD ---
HPI - General General Date of Admission: 01/19/25 Date of Service: 01/19/25 Chief Complaint: Seizure, fall. HPI Narrative The patient is a 58 y/o F w/ PMHx: Chronic anemia, Ongoing evaluation for Possible MS, Chronic migraines, Seizure disorder, Obesity, HTN, HLD, Orthostasis on midodrine, Psoriasis, Diabetes mellitus type II w/ neuropathy, Anxiety and Depression, Chronic migraines, Allergic rhinitis, Former tobacco use, Chronic pain syndrome on chronic narcotic regimen, Chronic bradycardia who presents to the [facility] ED on 01/19/2025 with history of mechanical fall with seizure with reported PCP visit on day of presentation and unfortunately following this visit ended up having a seizure witnessed potentially by her sister who called EMS with per phone patient noted that the patient had actually been at the lab to obtain a urine drug screen because the pain management medications for her back and was there from 6 to 10 AM however she was apparently unable to urinate often only able to urinate at home with her sister driving her home to urinate and get sample however in the car she had an emesis bout became very weak and slid down the side of the car with no trauma to the head however she eventually laid her on the ground and while they were waiting for EMS she had a witnessed seizure involving clenching of both her arm and legs lasting about a minute reportedly similar to her previous seizures. Workup in the ED included T98.4, heart rate 50, BP 136/73, respiratory rate 14, 98% room air with most recent repeat vitals heart rate 46, BP 116/59, respiratory rate 24, 100% on room air, CBC with WBC 12.2, hemoglobin 0.6, MCV 94.8, platelets not calculated, left shift noted, VBG with pH 7.48, PO264, bicarb 18, total CO2 19, 94% oxygenation, CMP with sodium 121, chloride 88, carbon dioxide 15.9, anion gap 16, BUN/creatinine 12/0.74, GFR 94, glucose 182, lactic acid 2.5, alk phos 115 otherwise hepatic profile unremarkable, hydroxybutyrate acid 0.1, ammonia level 40.3, urinalysis with no obvious evidence of UTI, UDS pending upon requested evaluation of patient, ethyl alcohol less than 10.1, chest x-ray with no acute cardiopulmonary findings, CT of the brain with no acute intracranial findings, CT cervical spine with no acute cervical spinal findings, CT lumbar spine with a nondisplaced fracture of the right L2 transverse process, EKG with SB with no acute evidence of ischemia similar to prior. In the ED patient administered 1L NS and loaded with Keppra 1,000 mg IV x 1. In the ED upon evaluation patient is more alert and talking but still not giving all appropriate orientation question answers. From discussion with patient family there is been no recent medication changes or adjustments and she is compliant with her seizure medication. [facility] Medical History Diabetes mellitus, type 2 Gastroenteritis COVID-19 virus infection Bradycardia Multiple sclerosis Demyelinating disease of central nervous system Epilepsy Generalized weakness Recurrent falls Recurrent syncope Anxiety Depression COPD (chronic obstructive pulmonary disease) Migraines Multiple falls History of CVA (cerebrovascular accident) GERD (gastroesophageal reflux disease) Obesity Former tobacco use Seizure disorder Allergic rhinitis Chronic migraine Orthostasis HTN (hypertension) Psoriasis Hypercholesterolemia Home Medications ?Medication ?Instructions ?Recorded ?Last Taken ?Type albuterol sulfate 90 mcg/actuation 2 puff inhalation Q4H PRN Wheezing 09/03/22 09/04/23 History aerosol inhaler docusate sodium 100 mg capsule 100 mg PO BID CONSTIPATION 09/03/22 09/03/23 History insulin syr/ndl U100 half shirley 0.5 09/03/22 Unknown History mL 31 gauge x 5/16 (Droplet Insulin Syringe (half unit)) dextromethorphan 20 mg-quinidine 1 cap PO BID DEPRESSION 02/06/23 10/09/23 History 10 mg capsule (Nuedexta) insulin lispro 100 unit/mL 3 unit subcut .COMPLEX DIABETES 09/04/23 09/04/23 History subcutaneous solution meclizine 25 mg tablet 25 mg PO DAILY PRN vertigo 09/04/23 09/04/23 History nystatin 100,000 unit/gram topical 1 applic topical BID RASH 09/04/23 10/09/23 History powder (Nyamyc) ipratropium 0.5 mg-albuterol 3 mg 3 ml inhalation Q6H PRN shortness 09/10/23 Unknown History (2.5 mg base)/3 mL nebulization of breath or wheezing soln lorazepam 0.5 mg tablet 0.5 mg PO QHS PRN Anxiety 10/09/23 Unknown History Lactobacillus rhamnosus GG 10 1 cap PO DAILY recurrent uti 05/09/24 Unknown History billion cell capsule (Culturelle) acetaminophen 500 mg capsule 1,000 mg PO Q6H PRN fever or pain 05/09/24 Unknown History aluminum-magnesium hydroxide 225 30 ml PO Q4H PRN gi distress 05/09/24 Unknown History mg-200 mg/5 mL oral suspension ascorbic acid (vitamin C) 500 mg 500 mg PO QDAY see pcp 05/09/24 Unknown History tablet benzocaine 15 mg-menthol 2.6 mg 1 nasreen mucous membrane Q2H PRN sore 05/09/24 Unknown History lozenges (Cepacol Sore Throat throat (benzocaine-menthol)) cranberry fruit 450 mg tablet 450 mg PO TID see pcp 05/09/24 Unknown History duloxetine 60 mg capsule,delayed 60 mg PO QDAY mental health 05/09/24 Unknown History release estradiol 0.01% (0.1 mg/gram) 1 g vaginal 2XW see pcp 05/09/24 Unknown History vaginal cream ixekizumab 80 mg/mL subcutaneous 80 mg subcut QMONTH psoriasis 05/09/24 Unknown History auto-injector (Bitcoin Brotherstz Autoinjector) loperamide 2 mg tablet 2 mg PO Q12H PRN diarrhea 05/09/24 Unknown History magnesium hydroxide 400 mg/5 mL 30 ml PO PRN PRN constipation 05/09/24 Unknown History oral suspension (Milk of Magnesia) melatonin 12 mg tablet 12 mg PO QHS insomnia 05/09/24 Unknown History triamcinolone acetonide 0.1 % 1 applic topical QDAY rash 05/09/24 Unknown History topical cream ergocalciferol (vitamin D2) 1,250 1,250 mcg PO QWEEK vitamin 08/01/24 Unknown History mcg (50,000 unit) capsule hydrocodone-acetaminophen 5-325mg 1 tab PO BID pain 09/11/24 Unknown History 5mg-325mg atorvastatin 80 mg tablet 80 mg PO QHS cholesterol #90 tabs 10/30/24 Unknown Rx cephalexin 250 mg capsule 250 mg PO QHS recurrent UTI #90 10/30/24 Unknown Rx caps flash glucose scanning reader #1 ea 10/30/24 Unknown Rx (FreeStyle Es 2 [place]) flash glucose sensor (FreeStyle #3 ea 10/30/24 Unknown Rx Es 2 Sensor kit) topiramate 50 mg tablet 50 mg PO .COMPLEX #42 tabs 11/05/24 Unknown Rx insulin glargine 100 unit/mL (3 30 unit subcut QAM diabetes 11/09/24 Unknown History mL) subcutaneous pen midodrine 5 mg tablet 5 mg PO TID PRN blood pressure 11/09/24 Unknown History handicap placard #1 ea 11/15/24 Unknown Rx fluticasone furoate 200 1 inh inhalation DAILY copd #30 ea 11/20/24 Unknown Rx mcg/actuation blister powder for inhalation (Arnuity Ellipta) onabotulinumtoxinA 100 unit 200 unit IM ONCE Migraine headache 11/29/24 Unknown Rx solution for injection (Botox) w/o aura (ICD 10: G43.009) #2 ea cephalexin 500 mg capsule 500 mg PO TID #30 caps 12/13/24 Unknown Rx mirtazapine 15 mg tablet 15 mg PO QHS 12/14/24 Unknown History omeprazole 40 mg capsule,delayed 40 mg PO DAILY GERD #90 caps 01/03/25 Unknown Rx release semaglutide 0.25 mg or 0.5 mg (2 0.25 mg (0.368 mL) subcut QWEEK 01/03/25 Unknown Rx mg/3 mL) subcutaneous pen injector diabetes #3 mL (Ozempic) tizanidine 2 mg tablet 2 mg PO Q8H PRN PRN for muscle 01/03/25 Unknown Rx spasm #60 TABLETS carbamazepine 200 mg tablet See Rx Instructions .Route 01/08/25 Unknown Rx (Tegretol) .COMPLEX #105 tabs cenobamate 200 mg tablet (Xcopri) 200 mg PO QDAY #30 tabs 01/08/25 Unknown Rx gabapentin 300 mg capsule 300 mg PO BID see pcp #60 caps 01/08/25 Unknown Rx gabapentin 800 mg tablet 800 mg PO QHS nerve pain #30 tabs 01/08/25 Unknown Rx galcanezumab-gnlm 120 mg/mL 120 mg subcut QMONTH #1 mL 01/08/25 Unknown Rx subcutaneous pen injector (Emgality Pen) ibuprofen 600 mg tablet 600 mg PO TID PRN headache/pain 01/08/25 Unknown Rx #90 tabs levocarnitine 330 mg tablet 330 mg PO BID elevated ammonia #60 01/08/25 Unknown Rx tabs promethazine 12.5 mg tablet 12.5 mg PO TID PRN nausea and 01/08/25 Unknown Rx vomiting #90 tabs topiramate 25 mg tablet 25 mg PO BID #60 tabs 01/08/25 Unknown Rx ubrogepant 100 mg tablet (Ubrelvy) 100 mg PO .COMPLEX MIGRAINE #14 01/08/25 Unknown Rx tabs Allergy/AdvReac Type Severity Reaction Status Date / Time adhesive tape Allergy Intermediate Rash Verified 01/08/25 08:39 latex Allergy Rash Verified 01/08/25 08:39 levofloxacin (From Levaquin) Allergy Hives Verified 01/08/25 08:39 ondansetron (From Zofran) Allergy Hives Verified 01/08/25 08:39 nalbuphine (From Nubain) AdvReac Other Verified 01/08/25 08:39 Family History Father Hypertension Hyperlipidemia Asthma Colon cancer Mother Cancer lung Aunt Breast cancer Aunt Breast cancer Grandmother Cancer ovarian Grandfather Cancer prostate Grandmother Cancer Uncle Hypertension Aunt Hypertension Sister Hypertension Asthma Surgical History History of appendectomy Hx of tubal ligation Hx of tonsillectomy Hx of cholecystectomy Social History household members: none 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 Smoking Status: Former smoker quit date: 07/12/21 pack-years: 10 alcohol intake: never substance use type: does not use do you feel safe at home: Yes ROS Review of Systems ROS Unobtainable: due to encephalopathy Vital Signs Vital Signs Vital Signs: 01/19/25 11:11 01/19/25 11:26 01/19/25 12:09 Temperature 98.4 F Temperature Source Oral Pulse Rate 50 L 49 L Respiratory Rate 14 Blood Pressure 136/73 H 143/67 H Blood Pressure Mean 94 92 Pulse Ox 98 98 Oxygen Delivery Method Room Air Room Air Room Air 01/19/25 13:00 01/19/25 14:00 Temperature Temperature Source Pulse Rate 48 L 46 L Respiratory Rate 24 H Blood Pressure 135/61 H 116/59 L Blood Pressure Mean 85 78 Pulse Ox 100 Oxygen Delivery Method Weight Weight: 215 lb 6.266 oz Body Mass Index (BMI) 35.8 Physical Exam Narrative Physical Examination: General: Patient is awake but not still completely alert, oriented to place but cannot give month, date or recent events, still appears mildly postictal but improved since initial ED arrival from staff discussions, seated upright in ED bed, fatigued. Skin: Normal color, normal turgor, no icterus, no cyanosis except occasional stage ecchymoses, abrasion. HEENT: AT/NC, EOM appear intact but difficult examination given still fatigued and postictal, PERRLA, dry MM, no obvious discern carotid bruits however difficult to assess carotid bruits as well as JVD given very thickened neck. Lungs: Diminished breath sounds, greater bases, mildly increased respiratory rate but no distress, no rales, ronchi or wheezing. Heart: Bradycardic with regular rhythm; no gallop, rub audible. Abdomen: Soft, obese, no tenderness to palpation, distant BS, difficult to discern distention and HSM given habitus. Extremities: No cyanosis, no clubbing, mild ankle not markedly pitting distal edema. Neurological: Patient is awake but not still completely alert, oriented to place but cannot give month, date or recent events, still appears mildly postictal but improved since initial ED arrival from staff discussions, seated upright in ED bed, fatigued, cognitive function not baseline intact, pupils equally reactive to light and accommodation, cranial nerves grossly normal, moving all 4 extremities although difficult assessment given still mildly postictal, strength accordingly severely globally decreased. Psychiatric: Affect appears flat, fatigued, still postictal appearance, no acute evidence of depressive or anxiety feelings but does have underlying history. Results Lab / Micro Data 01/19/25 11:56 01/19/25 11:56 Labs: Laboratory Results - last 24 hr 01/19/25 11:56: WBC 12.2 H, RBC 3.87 L, Hgb 11.6 L, Hct 36.7 L, MCV 94.8, MCH 30.0, MCHC 31.6 L, RDW Std Deviation 48.6 H, RDW Coeff of He 14.1, Plt Count TNP, MPV 10.8, Immature Gran % (Auto) 0.700, Neut % (Auto) 77.1 H, Lymph % (Auto) 14.4 L, [place] % (Auto) 6.7, Eos % (Auto) 0.7, Baso % (Auto) 0.4, Absolute Neuts (auto) 9.4 H, Absolute Lymphs (auto) 1.76, Nucleated RBC % 0, Platelet Estimate ADEQUATE, Sodium 121 L, Potassium 4.3, Chloride 88 L, Carbon Dioxide 15.9 L, Anion Gap 16 H, BUN 12, Creatinine 0.74, Estim Creat Clear Calc 95.86, Est GFR (MDRD) Non-Af 94, BUN/Creatinine Ratio 16.8, Glucose 182 H, Calcium 8.9, Total Bilirubin 0.27, AST 26, ALT 19, Alkaline Phosphatase 115 H, Ammonia 40.3, Total Protein 7.3, Albumin 4.3, Globulin 3.0, Albumin/Globulin Ratio 1.5, b-Hydroxybutyric mmol/L 0.1 01/19/25 12:10: Urine Opiates Screen Cancelled, U Buprenorphine Qual Cancelled, Ur Oxycodone Screen Cancelled, Urine Methadone Screen Cancelled, Urine Fentanyl Screen Cancelled, Ur Barbiturates Screen Cancelled, Ur Phencyclidine Scrn Cancelled, Ur Amphetamines Screen Cancelled, U Benzodiazepines Scrn Cancelled, Urine Cocaine Screen Cancelled, U Cannabinoids Screen Cancelled 01/19/25 12:32: Lactic Acid 2.5 H*, Ethyl Alcohol < 10.1 01/19/25 12:49: Urine Color Yellow, Urine Clarity Sl. Cloudy, Urine pH 6.0, Ur Specific [place] 1.015, Urine Protein 15 H, Urine Glucose (UA) Normal, Urine Ketones Negative, Urine Occult Blood Negative, Urine Nitrite Negative, Urine Bilirubin Negative, Urine Urobilinogen Normal, Ur Leukocyte Esterase Negative, Urine RBC 0 SEEN, Urine WBC 0 SEEN, Ur Squamous Epith Cells 0-5 SEEN, Urine Bacteria 0 SEEN, Urine Mucus 0 SEEN ABG Data ABG results: ABG 01/19/25 14:02 Specimen Type STEVE Sample Site Not entered VBG pH 7.48 H VBG pO2 64 H VBG HCO3 18 L VBG Total CO2 19 L VBG O2 Sat (Calc) 94 H VBG Base Excess -6 L POC Mix VBG pCO2 Pt Tmp 24.2 L O2 Delivery Device Not entered Imaging Radiology Impression Chest X-Ray 01/19/25 13:10 IMPRESSION: Right upper quadrant abdominal surgical clips are seen. The lateral view is significantly limited by patient motion, as well as hypoinflation. Lungs are significantly hypoinflated, but no acute pneumonic process is seen. No pleural effusion or pneumothorax is noted. The cardiomediastinal silhouette is within the normal range for age and technique. No evidence of cardiomegaly. No acute osseous change is noted. Reading Location: [id number] Brain CT 01/19/25 13:15 IMPRESSION: No acute intracranial abnormality. Chronic and ancillary findings as above. Reading Location: [id number] Cervical Sp[address] 01/19/25 13:15 IMPRESSION: No acute cervical spine fracture. Spondylosis. Reading Location: [id number] Lumbar Sp[address] 01/19/25 13:15 IMPRESSION: Nondisplaced fracture of the right L2 transverse process. Reading Location: [id number] Assessment & Plan Assessment/Plan (1) Acute hyponatremia: (2) Seizure: PLAN: Plan The patient is a 58 y/o F w/ PMHx: Chronic anemia, Ongoing evaluation for Possible MS, Chronic migraines, Seizure disorder, Obesity, HTN, HLD, Orthostasis on midodrine, Psoriasis, Diabetes mellitus type II w/ neuropathy, Anxiety and Depression, Chronic migraines, Allergic rhinitis, Former tobacco use, Chronic pain syndrome on chronic narcotic regimen, Chronic bradycardia who presents to the [facility] ED on 01/19/2025 with history of mechanical fall with seizure with reported PCP visit on day of presentation and unfortunately following this visit ended up having a seizure witnessed potentially by her sister who called EMS with per phone patient noted that the patient had actually been at the lab to obtain a urine drug screen because the pain management medications for her back and was there from 6 to 10 AM however she was apparently unable to urinate often only able to urinate at home with her sister driving her home to urinate and get sample however in the car she had an emesis bout became very weak and slid down the side of the car with no trauma to the head however she eventually laid her on the ground and while they were waiting for EMS she had a witnessed seizure involving clenching of both her arm and legs lasting about a minute reportedly similar to her previous seizures. #1. Acute Hyponatremia, unclear if potentially hypovolemic etiology with concern for associated breakthrough seizure activity with underlying epilepsy disorder: Admission Na 121, baseline appearance primarily 130-140 range, again appearance primarily euvolemic especially given specific gravity not markedly elevated but uncertain with also noted hypochloremia of 88, will admit to the ICU, will continue to cycle repeat BMP every 2 hour, will request FeNa, UOsm, TSH, Mag, will request nephrology consultation, breakthrough seizure although could be altered in etiology especially with urine drug screen pending and chronic narcotic use with suspicious story of only being able to urinate at home for recent urine evaluation prior to being prescription for narcotics will initiate low-dose hypertonic saline but as clinically improves de-escalate off as able, MRI brain and EEG requested, neurology consulted in addition, until oral intake safe will maintain on IV Keppra but once able we will switch to tegretol, topiramate, xcopri home regimen, carbamazepine level requested, will consult inside b2b sales per protocol, procalcitonin requested, PT/OT/case management requested for discharge planning. #2. Possible Underlying MS/demyelinating disease: Unclear, but prior evaluations with prior evaluation with MRI cervical spine w/ 1x 0.6 cm abnormal hyperintensity in the middle third posterior midline medulla oblongata with following repeat MRI with IV contrast obtained with similar findings (partially rim-enhancing T1 hypointensity lesion in the middle third of the posterior midline medulla oblongata) as well as nonenhancing T1 hypointensity lesion in the left periventricular white matter adjacent to the inferior horn of the left lateral ventricle w/ concern for possible MS plaques with transfer at that time to [facility]; however, several evaluations have yielded negative work-up. She has previously been treated with empiric steroids with resolution of symptoms. Prior records patient had been following with [facility] neurologist Dr. Jonathan Noland for ongoing concerns for underlying multiple sclerosis but see most recent visit with neurology with Dr. Santoro 01/08/2025. Neurology consulted given #1 as noted. #3. 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 PT/OT/case medicine consulted for discharge planning. #4. Diabetes mellitus type II with chronic neuropathy: Hold oral home regimen, continue home insulin regimen, ADA diet, accu checks w/ ISS, continue patient home chronic gabapentin regimen. #5. Anxiety and depression: We will hold duloxetine and mirtazapine regimen given hyponatremia as noted. #6. Chronic migraines: Will continue chronic topiramate regimen especially given #1. #7. Chronic orthostasis: Will continue chronic midodrine regimen. #8. Hypertension: Previously been on diuretics, does not appear to be on current list, clarified to be certain, maintain on midodrine as needed, low normal range upon ED arrival. #9. Hyperlipidemia: Previously been on statin regimen, does not appear to be on current list, clarifying to be certain. #10. Allergic rhinitis: Previously been on fluticasone regimen, clarifying is not on current list. #11. GERD: Will maintain on PPI cautiously especially given hyponatremia. #12. Obesity: Weight loss and lifestyle changes encouraged. #13. Former tobacco use: Encourage continued tobacco cessation. #14. Chronic normocytic anemia: Admission hemoglobin 11.6, MCV 94.8, baseline hemoglobin primarily 9-11, however most recently 01/08/2025 hemoglobin 12.2 but uncertain if this was a true value, will continue to trend. #15. DVT prophylaxis: Lovenox. #16. CODE status: Full Code. Charges/Coding Visit Charges Inpatient E&M: 24431 Init Hosp L3
[2025-01-19 15:17] LABS: Barbiturate Urine NEGATIVE (< 200 ng/mL); Benzodiazepine Urine NEGATIVE (< 200 ng/mL); PCP Urine NEGATIVE (< 25 ng/mL); THC Urine NEGATIVE (< 50 ng/mL)
[2025-01-19] MEDS: levETIRAcetam IV 1,000 MG/100 ML BAG 400 MG IV (16:00)
[2025-01-19 16:40] LABS: Reflex Lactate? Y
[2025-01-19 17:09] LABS: Carbamazepine (Tegretol) 9.3 ug/mL (4.0-12.0)
[2025-01-19 17:10] LABS: Creatinine, Urine (random) 62.70 mg/dL (28.00-217.00)
[2025-01-19] MEDS: 0.9% Saline Lock 10 ML Syringe IV ×2 (17:13→21:00)
[2025-01-19 17:16] LABS: Magnesium 1.6 mg/dL (1.5-2.2); Procalcitonin 0.04 ng/mL (<=0.10)
[2025-01-19 17:21] LABS: Osmolality, Urine 308 mOsm/KG
[2025-01-19 18:43] LABS: Anion Gap 20 (5-15); BUN 13 mg/dL (4-19); BUN/Creat Ratio 18.2 RATIO (10-20); Calcium,Total 8.7 mg/dL (7.6-11.0); Carbon Dioxide 12.1 mmol/L (21.0-32.0); Chloride 90 mmol/L (98-108); Estimated Creatinine Clearance 99.82 ml/min (50-250); Glucose 179 mg/dL (70-99); Potassium 4.4 mmol/L (3.3-5.1)
[2025-01-19] MEDS: levETIRAcetam IV 500 MG in 0.9% Normal Saline (100mL Bag) 100 ML 420 MG IV (21:11)
[2025-01-19 21:29] LABS: Anion Gap 14 (5-15); BUN 9 mg/dL (4-19); BUN/Creat Ratio 13.3 RATIO (10-20); Calcium,Total 8.3 mg/dL (7.6-11.0); Carbon Dioxide 17.2 mmol/L (21.0-32.0); Chloride 96 mmol/L (98-108); Estimated Creatinine Clearance 99.82 ml/min (50-250); Glucose 124 mg/dL (70-99); Potassium 4.6 mmol/L (3.3-5.1)
[2025-01-19] MEDS: HYDROcodone Bitartrate/Apap 5/325 Tablet PO (21:33)
[2025-01-19] MEDS: MELATONIN 10 MG TABLET PO (21:33)
[2025-01-19] MEDS: 0.9% Normal Saline (1000mL) 1,000 ML 50 ML IV (21:54)
--- NOTE | 2025-01-19 22:44 | CON.PCM.CC_ITS ---
HPI Consult Data Date of Consult: 01/19/25 HPI Narrative Reason for Consultation: Seizure, Hyponatremia HPI Narrative: This is a 59y/o F admitted to the ICU for seizures and hyponatremia. She has history of seizure d/o, chronic back pain,? HTN, orthostasis, migraines, DM. She was at lab for routine urine drug screen today but while at car she had episode on n/v/weakness and then seizure. EMS brought her to the ED labs significant for metabolic acidosis, Na 122. IN the ED she was given 1 L NS and Keppra 1gm.?In the ICU she received 4 hrs of hypertonic saline and most recent Na 127. She has no complaints at this time. Her sister manages her home medications. [facility] Medical History Diabetes mellitus, type 2 Gastroenteritis COVID-19 virus infection Bradycardia Multiple sclerosis Demyelinating disease of central nervous system Epilepsy Generalized weakness Recurrent falls Recurrent syncope Anxiety Depression COPD (chronic obstructive pulmonary disease) Migraines Multiple falls History of CVA (cerebrovascular accident) GERD (gastroesophageal reflux disease) Obesity Former tobacco use Seizure disorder Allergic rhinitis Chronic migraine Orthostasis HTN (hypertension) Psoriasis Hypercholesterolemia Home Medications ?Medication ?Instructions ?Recorded ?Last Taken ?Type albuterol sulfate 90 mcg/actuation 2 puff inhalation Q 4H PRN Wheezing 09/03/22 09/04/23 History aerosol inhaler insulin syr/ndl U100 half shirley 0.5 09/03/22 Unknown H istory mL 31 gauge x 5/16 (Droplet Insulin Syringe (half unit)) dextromethorphan 20 mg-quinidine 1 cap PO BID DEPRESSI ON 02/06/23 10/09/23 History 10 mg capsule (Nuedexta) insulin lispro 100 unit/mL 3 unit subcut .COMPLEX DIAB ETES 09/04/23 09/04/23 History subcutaneous solution meclizine 25 mg tablet 25 mg PO DAILY PRN vertigo 0 09/04/23 09/04/23 History nystatin 100,000 unit/gram topical 1 applic topical BI D RASH 09/04/23 10/09/23 History powder (Nyamyc) lorazepam 0.5 mg tablet 0.5 mg PO QHS PRN Anxiety Unknown History Lactobacillus rhamnosus GG 10 1 cap PO DAILY recurrent uti 05/09/24 Unknown History billion cell capsule (Culturelle) ascorbic acid (vitamin C) 500 mg 500 mg PO QDAY see pc p 05/09/24 Unknown History tablet cranberry fruit 450 mg tablet 450 mg PO TID see pcp Unknown History duloxetine 60 mg capsule,delayed 60 mg PO QDAY mental health 05/09/24 Unknown History release hydrocodone-acetaminophen 5-325mg 1 tab PO BID pain Unknown History 5mg-325mg atorvastatin 80 mg tablet 80 mg PO QHS cholesterol #90 tabs 10/30/24 Unknown Rx cephalexin 250 mg capsule 250 mg PO QHS recurrent UTI #90 10/30/24 Unknown Rx caps flash glucose scanning reader #1 ea 10/30/24 Unknown R x (FreeStyle Es 2 [place]) flash glucose sensor (FreeStyle #3 ea 10/30/24 Unknown Rx Es 2 Sensor kit) insulin glargine 100 unit/mL (3 20 unit subcut QAM karoline betes 11/09/24 Unknown History mL) subcutaneous pen handicap placard #1 ea 11/15/24 Unknown Rx fluticasone furoate 200 1 inh inhalation DAILY copd #30 ea 11/20/24 Unknown Rx mcg/actuation blister powder for inhalation (Arnuity Ellipta) mirtazapine 15 mg tablet 30 mg PO QHS sleep 12/14/24 Unknown History omeprazole 40 mg capsule,delayed 40 mg PO DAILY GERD # 90 caps 01/03/25 Unknown Rx release cenobamate 200 mg tablet (Xcopri) 200 mg PO QDAY #30 t abs 01/08/25 Unknown Rx gabapentin 800 mg tablet 800 mg PO QHS nerve pain #30 tabs 01/08/25 Unknown Rx ibuprofen 600 mg tablet 600 mg PO TID PRN headache/p ain 01/08/25 Unknown Rx #90 tabs levocarnitine 330 mg tablet 330 mg PO BID elevated amm onia #60 01/08/25 Unknown Rx tabs promethazine 12.5 mg tablet 12.5 mg PO TID PRN nausea and 01/08/25 Unknown Rx vomiting #90 tabs ubrogepant 100 mg tablet (Ubrelvy) 100 mg PO .COMPLEX MIGRAINE #14 01/08/25 Unknown Rx tabs carbamazepine 200 mg tablet 200 mg PO BID seizures 06/05 Unknown History (Tegretol) carbamazepine 300 mg 300 mg PO QHS seizures 01/19 Unknown History capsule,extended release [id number] diphenhydramine HCl 25 mg capsule 50 mg PO QHS sleep 0 01/19/25 Unknown History (Allergy (diphenhydramine)) gabapentin 300 mg capsule 300 mg PO BID pain 01/19/25 Unknown History galcanezumab-gnlm 120 mg/mL 120 mg subcut QMONTH migra kendal 01/19/25 Unknown History subcutaneous pen injector (Emgality Pen) hydroxyzine HCl 25 mg tablet 50 mg PO QHS sleep Unknown History melatonin 10 mg capsule 10 mg PO QHS sleep 01/19/25 Unknown History semaglutide 0.25 mg or 0.5 mg (2 0.25 mg subcut QWEEK diabetes 01/19/25 Unknown History mg/3 mL) subcutaneous pen injector (Ozempic) tizanidine 2 mg tablet 2 mg PO TID for muscle spasm 01/19/25 Unknown History topiramate 25 mg tablet 25 mg PO BID seizures Unknown History Allergy/AdvReac Type Severity Reaction Status Date / Time adhesive tape Allergy Intermediate Rash Verified 01/08/25 08:39 latex Allergy Rash Verified 01/08/25 08:39 levofloxacin (From Levaquin) Allergy Hives Verified 01/08/25 08:39 ondansetron (From Zofran) Allergy Hives Verified 01/08/25 08:39 nalbuphine (From Nubain) AdvReac Other Verified 01/08/25 08:39 Family History Father Hypertension Hyperlipidemia Asthma Colon cancer Mother Cancer lung Aunt Breast cancer Aunt Breast cancer Grandmother Cancer ovarian Grandfather Cancer prostate Grandmother Cancer Uncle Hypertension Aunt Hypertension Sister Hypertension Asthma Surgical History History of appendectomy Hx of tubal ligation Hx of tonsillectomy Hx of cholecystectomy Social History household members: none 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 Smoking Status: Former smoker quit date: 07/12/21 pack-years: 10 alcohol intake: never substance use type: does not use do you feel safe at home: Yes ROS Constitutional Constitutional: Reports systems reviewed and no addt'l complaints, except as documented Objective Data Objective Data Vital Signs: Vital Signs Last response 3 Temperature 36.9 C 01/19/25 20:00 Temperature Source Oral 01/19/25 20:00 Pulse Rate 51 L 01/19/25 21:00 Pulse Strength Weak (1+) 01/19/25 20:46 Respiratory Rate 14 01/19/25 21:00 Respiratory Effort Normal, Non-Labored 01/19/25 20:00 Respiratory Depth Normal 01/19/25 20:00 Respiratory Pattern Normal 01/19/25 20:00 Blood Pressure 119/65 01/19/25 21:00 Blood Pressure Mean 83 01/19/25 21:00 Blood Pressure Source Monitor 01/19/25 21:00 Blood Pressure Position Semi-Fowlers 01/19/25 21:00 Blood Pressure Location Left Arm 01/19/25 21:00 Pulse Ox 96 01/19/25 21:00 Oxygen Delivery Method Room Air 01/19/25 21:00 I&O: I&O Last 24 Hours 3 01/18/25 01/19/25 01/19/25 23:59 11:59 23:59 Intake Total 1434.5 / 1434.5 Output Total 775 / 775 Balance 659.5 / 659.5 I&O: Total Stay 3 01/19/25 11:09 thru 01/19/25 21:45 Intake Total 1434.5 Output Total 775 Balance 659.5 Current Meds Ordered / Administered: Current meds ordered / Administered 3 Generic Name Dose Route Start Last Admin Trade Name Freq PRN Reason Stop Dose Admin Acetaminophen 650 mg 01/19/25 16:40 01/19/25 17:12 Acetaminophen 325 Mg Tablet PO 650 mg Q4H PRN PRN Administration Fever, pain 1-04/20 Hydrocodone Bitart/Acetaminophen 1 tablet 01/19/25 22:00 01/19/25 21:33 Hydrocodone Bitartrate/Apap 5/325 Tablet PO 1 tablet BID ELICIA Administration Al Hydroxide/Mg Hydroxide 30 ml 01/19/25 16:40 Mag Hydrox/Al Hydrox/Simeth 30 Ml Udc PO Q6H PRN PRN Gastric Burning Albuterol Sulfate 2.5 mg 01/19/25 16:40 Albuterol 2.5 Mg/3 Ml Vial.Neb. INHALATION Q2H PRN PRN Dyspnea, wheezing Albuterol/Ipratropium 3 ml 01/19/25 16:40 01/19/25 19:15 Ipratropium/Albuterol Sulfate 3 Ml Ampul.Neb INHALATION 3 ml Q6HWA.RT ELICIA Administration Aspirin 81 mg 01/20/25 08:00 Aspirin 81 Mg Tab.Chew PO BREAKFAST ELICIA Atorvastatin Calcium 80 mg 01/19/25 22:00 01/19/25 21:34 Atorvastatin Calcium 80 Mg Tablet PO 80 mg QHS ELICIA Administration Budesonide 0.5 mg 01/19/25 21:30 Budesonide Respules 0.5 Mg/2 Ml Ampul.Neb. INHALATION Q12H.RT [facility] Calamine/Phenol 1 applic 01/19/25 18:00 01/19/25 21:14 Menthol/Lanolin/Calamine/Znox 113 Gm Tube TOPICAL Not Given 4X/DAY [facility] Protocol Carbamazepine 200 mg 01/20/25 10:00 Carbamazepine 200 Mg Tablet PO 1000,1500 [facility] Carbamazepine 300 mg 01/19/25 22:00 01/19/25 21:35 Carbamazepine 200 Mg Tablet PO 300 mg 2200 ELICIA Administration Cenobamate 200 mg 01/20/25 10:00 Cenobamate 200 Mg Tablet PO DAILY [facility] Diphenhydramine HCl 50 mg 01/19/25 20:44 01/19/25 21:33 Diphenhydramine 25 Mg Capsule PO 50 mg QHS PRN Administration sleep Duloxetine HCl 60 mg 01/20/25 10:00 Duloxetine Hcl 60 Mg Capsule PO DAILY [facility] Enoxaparin Sodium 40 mg 01/20/25 10:00 Enoxaparin 40 Mg/0.4 Ml Syringe SC DAILY [facility] Gabapentin 300 mg 01/20/25 10:00 Gabapentin 300 Mg Capsule PO 1000,1500 [facility] Gabapentin 800 mg 01/19/25 22:00 01/19/25 21:33 Gabapentin 800 Mg Tablet PO 800 mg QHS ELICIA Administration Glucagon 1 mg 01/19/25 16:40 Glucagon 1 Mg/Ml Syringe IM X1 PRN HYPOGLYCEMIA Protocol Guaifenesin 10 ml 01/19/25 16:40 Guaifenesin 10 Ml Udc (200mg/10ml) PO Q4H PRN PRN COUGH Hydralazine HCl 10 mg 01/19/25 16:40 Hydralazine 20 Mg/Ml Vial IV Q4H PRN PRN SBP > 160 Protocol Sodium Chloride 250 mls @ 15 mls/hr 01/19/25 16:16 IV .[id number] PRN Saline Flush Sodium Chloride 250 mls @ 15 mls/hr 01/19/25 16:16 IV .[id number] PRN Additional IVPB Infusion Levetiracetam 500 mg/ Sodium 105 mls @ 420 mls/hr 01/19/25 22:00 01/19/25 21:28 Chloride IV Infused Q12 ELICIA Infusion Dextrose 250 mls @ 0 mls/hr 01/19/25 16:40 Dextrose 10%-Water IV .Q0M PRN HYPOGLYCEMIA Protocol As Directed Sodium Chloride 1,000 mls @ 50 mls/hr 01/19/25 21:45 01/19/25 21:54 IV 50 mls/hr .Q20H ELICIA Administration Ibuprofen 600 mg 01/19/25 20:44 01/19/25 21:33 Ibuprofen 600 Mg Tablet PO 600 mg TID PRN Administration HEADACHE/PAIN 1-10 Insulin Glargine 30 unit 01/20/25 10:00 Insulin Glargine-Yfgn 100 Unit/Ml Pen SC QAM ELICIA Insulin Human Lispro 0 unit 01/19/25 22:00 01/19/25 21:14 Insulin Lispro 100 Unit/Ml Insuln.Pen SC Not Given ACHS [facility] Protocol Levocarnitine 330 mg 01/19/25 22:00 01/19/25 21:33 Levocarnitine 330 Mg Tablet PO 330 mg BID ELICIA Administration Lorazepam 0.5 mg 01/19/25 20:45 Lorazepam 0.5 Mg Tablet PO QHS PRN PRN ANXIETY Meclizine HCl 25 mg 01/19/25 20:40 Meclizine Hcl 25 Mg Tablet PO BID PRN PRN DIZZINESS Melatonin 10 mg 01/19/25 22:00 01/19/25 21:33 Melatonin 10 Mg Tablet PO 10 mg QHS ELICIA Administration Mirtazapine 30 mg 01/19/25 22:00 01/19/25 21:38 Mirtazapine 30 Mg Tablet PO 30 mg QHS ELICIA Administration Nystatin 1 applic 01/19/25 22:00 01/19/25 21:14 Nystatin Powder 15gm Bottle TOPICAL 1 applic BID [facility] Administration Protocol Pantoprazole Sodium 40 mg 01/20/25 10:00 Pantoprazole Sodium 40 Mg Tablet PO DAILY [facility] Promethazine HCl 12.5 mg 01/19/25 20:57 01/19/25 21:00 Promethazine 25 Mg Tablet PO 12.5 mg TID PRN Administration nausea and vomiting Senna/Docusate Sodium 2 tablet 01/19/25 16:40 Senna/Docusate Sodium 1 Tablet PO BID PRN PRN Constipation Sodium Chloride 10 - 40 ml 01/19/25 16:16 01/19/25 21:00 0.9% Saline Lock 10 Ml Syringe IV 10 ml UD PRN Administration SALINE FLUSH Tizanidine HCl 2 mg 01/19/25 20:40 Tizanidine Hcl 2 Mg Tablet PO TID PRN PRN MUSCLE SPASM Topiramate 25 mg 01/19/25 22:00 01/19/25 21:38 Topiramate 25 Mg Tablet PO 25 mg 1500,2200 [facility] Administration Physical Exam Const alert, oriented x3 and no apparent distress General Appearance: cooperative and comfortable HEENT normocephalic Eyes PERRL General Eye: normal appearance of both eyes Resp normal respiratory effort, no retractions and no use of accessory muscles Cardio regular rhythm Rate: bradycardia GI normal to inspection, nondistended, normoactive bowel sounds Extremity normal to inspection Lab / Micro Data 01/19/25 11:56 01/19/25 20:32 Labs: Laboratory Results - last 24 hr 01/19/25 11:56: WBC 12.2 H, RBC 3.87 L, Hgb 11.6 L, Hct 36.7 L, MCV 94.8, MCH 30.0, MCHC 31.6 L, RDW Std Deviation 48.6 H, RDW Coeff of He 14.1, Plt Count TNP, MPV 10.8, Immature Gran % (Auto) 0.700, Neut % (Auto) 77.1 H, Lymph % (Auto) 14.4 L, [place] % (Auto) 6.7, Eos % (Auto) 0.7, Baso % (Auto) 0.4, Absolute Neuts (auto) 9.4 H, Absolute Lymphs (auto) 1.76, Nucleated RBC % 0, Platelet Estimate ADEQUATE, Sodium 121 L 01/19/25 11:56: Sodium 122 L, Potassium 4.3 01/19/25 11:56: Potassium 4.4, Chloride 88 L 01/19/25 11:56: Chloride 90 L, Carbon Dioxide 15.9 L 01/19/25 11:56: Carbon Dioxide 12.1 L, Anion Gap 16 H 01/19/25 11:56: Anion Gap 20 H, BUN 12 01/19/25 11:56: BUN 13, Creatinine 0.74 01/19/25 11:56: Creatinine 0.71, Estim Creat Clear Calc 95.86 01/19/25 11:56: Estim Creat Clear Calc 99.82, Est GFR (MDRD) Non-Af 94 01/19/25 11:56: Est GFR (MDRD) Non-Af 99, BUN/Creatinine Ratio 16.8 01/19/25 11:56: BUN/Creatinine Ratio 18.2, Glucose 182 H 01/19/25 11:56: Glucose 179 H, Calcium 8.9 01/19/25 11:56: Calcium 8.7, Magnesium 1.6, Total Bilirubin 0.27, AST 26, ALT 19, Alkaline Phosphatase 115 H, Ammonia 40.3, Total Protein 7.3, Albumin 4.3, Globulin 3.0, Albumin/Globulin Ratio 1.5, b-Hydroxybutyric mmol/L 0.1, Procalcitonin 0.04, TSH 1.420, Carbamazepine 9.3 01/19/25 12:10: Urine Opiates Screen Cancelled, U Buprenorphine Qual Cancelled, Ur Oxycodone Screen Cancelled, Urine Methadone Screen Cancelled, Urine Fentanyl Screen Cancelled, Ur Barbiturates Screen Cancelled, Ur Phencyclidine Scrn Cancelled, Ur Amphetamines Screen Cancelled, U Benzodiazepines Scrn Cancelled, Urine Cocaine Screen Cancelled, U Cannabinoids Screen Cancelled 01/19/25 12:32: Lactic Acid 2.5 H*, Ethyl Alcohol < 10.1 01/19/25 12:49: Urine Color Yellow, Urine Clarity Sl. Cloudy, Urine pH 6.0, Ur Specific Poth 1.015, Urine Protein 15 H, Urine Glucose (UA) Normal, Urine Ketones Negative, Urine Occult Blood Negative, Urine Nitrite Negative, Urine Bilirubin Negative, Urine Urobilinogen Normal, Ur Leukocyte Esterase Negative, Urine RBC 0 SEEN, Urine WBC 0 SEEN, Ur Squamous Epith Cells 0-5 SEEN, Urine Bacteria 0 SEEN, Urine Mucus 0 SEEN, Urine Osmolality 308, Ur Random Sodium 32, Urine Creatinine 62.70, Urine Opiates Screen NEGATIVE, U Buprenorphine Qual NEGATIVE, Ur Oxycodone Screen NEGATIVE, Urine Methadone Screen NEGATIVE, Urine Fentanyl Screen NEGATIVE, Ur Barbiturates Screen NEGATIVE, Ur Phencyclidine Scrn NEGATIVE, Ur Amphetamines Screen NEGATIVE, U Benzodiazepines Scrn NEGATIVE, Urine Cocaine Screen NEGATIVE, U Cannabinoids Screen NEGATIVE 01/19/25 20:32: Sodium 127 L, Potassium 4.6, Chloride 96 L, Carbon Dioxide 17.2 L, Anion Gap 14, BUN 9, Creatinine 0.71, Estim Creat Clear Calc 99.82, Est GFR (MDRD) Non-Af 99, BUN/Creatinine Ratio 13.3, Glucose 124 H, Calcium 8.3 ABG Data ABG results: ABG 01/19/25 14:02 Specimen Type STEVE Sample Site Not entered VBG pH 7.48 H VBG pO2 64 H VBG HCO3 18 L VBG Total CO2 19 L VBG O2 Sat (Calc) 94 H VBG Base Excess -6 L POC Mix VBG pCO2 Pt Tmp 24.2 L O2 Delivery Device Not entered Imaging Radiology Impression Chest X-Ray 01/19/25 13:10 IMPRESSION: Right upper quadrant abdominal surgical clips are seen. The lateral view is significantly limited by patient motion, as well as hypoinflation. Lungs are significantly hypoinflated, but no acute pneumonic process is seen. No pleural effusion or pneumothorax is noted. The cardiomediastinal silhouette is within the normal range for age and technique. No evidence of cardiomegaly. No acute osseous change is noted. Reading Location: [id number] Brain CT 01/19/25 13:15 IMPRESSION: No acute intracranial abnormality. Chronic and ancillary findings as above. Reading Location: [id number] 01/19/25 13:15 IMPRESSION: No acute cervical spine fracture. Spondylosis. Reading Location: [id number] Lumbar [address] 01/19/25 13:15 IMPRESSION: Nondisplaced fracture of the right L2 transverse process. Reading Location: [place] [address] Assessment and Plan . Assessment and plan: ASSESSMENT #Hyponatremia s/p hypertonic saline #Seizure #Metabolic acidosis #Chronic medical conditions, multiple PLAN: -Follow Neuro exam in ICU -Continue Keppra BID and Tegretol -PRN Ativan for seizures -1 Amp bicarb if persistent acidosis on next BMP -MRI brain -Neurology consulted -Follow Na level q4hr -Follow up urine studies, TSH -Nephrology consulted Critical Care Time: 60 The entirety of this encounter was done via Telemedicine
--- NOTE | 2025-01-19 22:47 | NURSING ---
Blood glucose at 2100 [address] patient[address] was 138. No sliding scale given.
[2025-01-20] VITALS (28 sets, daily range): BP systolic 89–147; BP diastolic 44–76; PULSE 42–70; RESP 10–19; TEMP 26.6–36.9; O2SAT 84–100; BMI 34.2
[2025-01-20 01:02] LABS: Anion Gap 11 (5-15); BUN 9 mg/dL (4-19); BUN/Creat Ratio 14.1 RATIO (10-20); Calcium,Total 7.7 mg/dL (7.6-11.0); Carbon Dioxide 18.3 mmol/L (21.0-32.0); Chloride 99 mmol/L (98-108); Estimated Creatinine Clearance 118.12 ml/min (50-250); Glucose 113 mg/dL (70-99); Potassium 3.6 mmol/L (3.3-5.1)
--- NOTE | 2025-01-20 03:58 | PCM.HOSP.N ---
Hospitalist Note Sodium improved from 122 to 127 on hypertonic saline. Discontinued hypertonic saline and started normal saline at 50 cc/hr. Repeat sodium level 4 hours later was 128. Will continue normal saline at this rate for now and repeat BMP in the morning.
[2025-01-20] MEDS: 0.9% Saline Lock 10 ML Syringe IV ×2 (04:24→12:50)
[2025-01-20 04:36] LABS: Hematocrit 27.8 % (37-47); Hemoglobin 9.2 g/dL (12.0-15.0); Immature Granulocytes Count 0.050 X10^3/uL (0.0-0.0); Mean Corp Hgb Conc 33.1 g/dL (32-36); Mean Corpuscular Volume 92.4 fL (81-99); Mean Platelet Vol. 10.6 fl (6.2-12.0); NRBC Flagged by Analyzer 0 % (0-5); Platelet Count 201 K/mm3 (150-450); RBC Distribution Width CV 14.2 % (11.6-14.6); RBC Distribution Width SD 48.3 fl (35.1-43.9); Red Blood Count 3.01 M/mm3 (4.2-5.4); White Blood Count 12.5 K/mm3 (4.4-11.0)
[2025-01-20 05:04] LABS: AST(SGOT) 17 U/L (<=31); Alanine Aminotransfer ALT/SGPT 13 U/L (<=34); Albumin, Serum 3.2 g/dL (3.5-5.0); Alkaline Phosphatase 87 U/L (35-104); Anion Gap 10 (5-15); BUN 9 mg/dL (4-19); BUN/Creat Ratio 14.3 RATIO (10-20); Calcium,Total 7.6 mg/dL (7.6-11.0); Carbon Dioxide 17.9 mmol/L (21.0-32.0); Chloride 101 mmol/L (98-108); Estimated Creatinine Clearance 114.11 ml/min (50-250); Globulin 2.1 g/dL (2.2-4.2); Glucose 125 mg/dL (70-99); Potassium 3.6 mmol/L (3.3-5.1)
[2025-01-20] MEDS: Budesonide Respules 0.5 MG/2 ML AMPUL.NEB. INHALATION ×2 (06:41→19:29)
--- NOTE | 2025-01-20 07:10 | PN.HOSP_ITS ---
Reason for Visit Reason for Visit: Diagnoses Hypo-osmolality and hyponatremia (01/19/25) Unspecified convulsions (01/19/25) Subjective Subjective Patient overnight with no acute events with improved mentation following transition to the ICU. Patient did transition off of hypertonic saline with improvement of sodium level from 122-127 transition to low dose judicious normal saline. This morning patient is awaiting EEG. She is able to tell where she is in some information but persistently is unable to give exact dates which is similar to previous presentations but she is much more alert and interactive. Patient on telemetry does remain bradycardic and uncertain if it is junctional or not, awaiting EKG. Patient denies fevers, chills, nausea, emesis, abdominal pain, chest pain or dyspnea. Objective Data Objective Data Vital Signs: Vital Signs Temp Pulse Resp BP Pulse Ox O2 Del Method 98.0 F 51 L 14 89/53 L 94 Room Air 01/20/25 04:00 01/20/25 06:41 01/20/25 06:41 01/20/25 06:00 01/20/25 06:41 01/20/25 06:41 Oxygen Delivery Method Room Air Weight: 213 lb 2.992 oz Body Mass Index (BMI) 34.2 Intake & Output: Intake and Output for Last 24 Hours 01/18/25 01/19/25 01/20/25 23:59 23:59 23:59 Intake Total 1434.5 / 1434.5 Output Total 775 / 775 Balance 659.5 / 659.5 Lab / Micro Data 01/20/25 04:25 01/20/25 04:25 Labs: Laboratory Results - last 24 hr 01/19/25 11:56: WBC 12.2 H, RBC 3.87 L, Hgb 11.6 L, Hct 36.7 L, MCV 94.8, MCH 30.0, MCHC 31.6 L, RDW Std Deviation 48.6 H, RDW Coeff of He 14.1, Plt Count TNP, MPV 10.8, Immature Gran % (Auto) 0.700, Neut % (Auto) 77.1 H, Lymph % (Auto) 14.4 L, [place] % (Auto) 6.7, Eos % (Auto) 0.7, Baso % (Auto) 0.4, Absolute Neuts (auto) 9.4 H, Absolute Lymphs (auto) 1.76, Nucleated RBC % 0, Platelet Estimate ADEQUATE, Sodium 121 L 01/19/25 11:56: Sodium 122 L, Potassium 4.3 01/19/25 11:56: Potassium 4.4, Chloride 88 L 01/19/25 11:56: Chloride 90 L, Carbon Dioxide 15.9 L 01/19/25 11:56: Carbon Dioxide 12.1 L, Anion Gap 16 H 01/19/25 11:56: Anion Gap 20 H, BUN 12 01/19/25 11:56: BUN 13, Creatinine 0.74 01/19/25 11:56: Creatinine 0.71, Estim Creat Clear Calc 95.86 01/19/25 11:56: Estim Creat Clear Calc 99.82, Est GFR (MDRD) Non-Af 94 01/19/25 11:56: Est GFR (MDRD) Non-Af 99, BUN/Creatinine Ratio 16.8 01/19/25 11:56: BUN/Creatinine Ratio 18.2, Glucose 182 H 01/19/25 11:56: Glucose 179 H, Calcium 8.9 01/19/25 11:56: Calcium 8.7, Magnesium 1.6, Total Bilirubin 0.27, AST 26, ALT 19, Alkaline Phosphatase 115 H, Ammonia 40.3, Total Protein 7.3, Albumin 4.3, Globulin 3.0, Albumin/Globulin Ratio 1.5, b-Hydroxybutyric mmol/L 0.1, Procalcitonin 0.04, TSH 1.420, Carbamazepine 9.3 01/19/25 12:10: Urine Opiates Screen Cancelled, U Buprenorphine Qual Cancelled, Ur Oxycodone Screen Cancelled, Urine Methadone Screen Cancelled, Urine Fentanyl Screen Cancelled, Ur Barbiturates Screen Cancelled, Ur Phencyclidine Scrn Cancelled, Ur Amphetamines Screen Cancelled, U Benzodiazepines Scrn Cancelled, Urine Cocaine Screen Cancelled, U Cannabinoids Screen Cancelled 01/19/25 12:32: Lactic Acid 2.5 H*, Ethyl Alcohol < 10.1 01/19/25 12:49: Urine Color Yellow, Urine Clarity Sl. Cloudy, Urine pH 6.0, Ur Specific [place] 1.015, Urine Protein 15 H, Urine Glucose (UA) Normal, Urine Ketones Negative, Urine Occult Blood Negative, Urine Nitrite Negative, Urine Bilirubin Negative, Urine Urobilinogen Normal, Ur Leukocyte Esterase Negative, Urine RBC 0 SEEN, Urine WBC 0 SEEN, Ur Squamous Epith Cells 0-5 SEEN, Urine Bacteria 0 SEEN, Urine Mucus 0 SEEN, Urine Osmolality 308, Ur Random Sodium 32, Urine Creatinine 62.70, Urine Opiates Screen NEGATIVE, U Buprenorphine Qual NEGATIVE, Ur Oxycodone Screen NEGATIVE, Urine Methadone Screen NEGATIVE, Urine Fentanyl Screen NEGATIVE, Ur Barbiturates Screen NEGATIVE, Ur Phencyclidine Scrn NEGATIVE, Ur Amphetamines Screen NEGATIVE, U Benzodiazepines Scrn NEGATIVE, Urine Cocaine Screen NEGATIVE, U Cannabinoids Screen NEGATIVE 01/19/25 20:32: Sodium 127 L, Potassium 4.6, Chloride 96 L, Carbon Dioxide 17.2 L, Anion Gap 14, BUN 9, Creatinine 0.71, Estim Creat Clear Calc 99.82, Est GFR (MDRD) Non-Af 99, BUN/Creatinine Ratio 13.3, Glucose 124 H, Calcium 8.3 01/20/25 00:10: Sodium 128 L, Potassium 3.6, Chloride 99, Carbon Dioxide 18.3 L, Anion Gap 11, BUN 9, Creatinine 0.60 L, Estim Creat Clear Calc 118.12, Est GFR (MDRD) Non-Af 104, BUN/Creatinine Ratio 14.1, Glucose 113 H, Calcium 7.7 01/20/25 04:25: WBC 12.5 H, RBC 3.01 L, Hgb 9.2 L, Hct 27.8 L, MCV 92.4, MCH 30.6, MCHC 33.1, RDW Std Deviation 48.3 H, RDW Coeff of He 14.2, Plt Count 201, MPV 10.6, Immature Gran % (Auto) 0.400, Neut % (Auto) 75.3 H, Lymph % (Auto) 13.8 L, [place] % (Auto) 9.4, Eos % (Auto) 0.8, Baso % (Auto) 0.3, Absolute Neuts (auto) 9.4 H, Absolute Lymphs (auto) 1.72, Nucleated RBC % 0, Sodium 129 L, Potassium 3.6, Chloride 101, Carbon Dioxide 17.9 L, Anion Gap 10, BUN 9, C reatinine 0.63 L, Estim Creat Clear Calc 114.11, Est GFR (MDRD) Non-Af 103, BUN/Creatinine Ratio 14.3, Glucose 125 H, Calcium 7.6, Total Bilirubin 0.23, AST 17, ALT 13, Alkaline Phosphatase 87, Total Protein 5.3 L, Albumin 3.2 L, G lobulin 2.1 L, Albumin/Globulin Ratio 1.6 ABG Data ABG results: ABG 01/19/25 14:02 Specimen Type STEVE Sample Site Not entered VBG pH 7.48 H VBG pO2 64 H VBG HCO3 18 L VBG Total CO2 19 L VBG O2 Sat (Calc) 94 H VBG Base Excess -6 L POC Mix VBG pCO2 Pt Tmp 24.2 L O2 Delivery Device Not entered Radiography Diagnostic Testing: Radiology Impression Chest X-Ray 01/19/25 13:10 IMPRESSION: Right upper quadrant abdominal surgical clips are seen. The lateral view is significantly limited by patient motion, as well as hypoinflation. Lungs are significantly hypoinflated, but no acute pneumonic process is seen. No pleural effusion or pneumothorax is noted. The cardiomediastinal silhouette is within the normal range for age and technique. No evidence of cardiomegaly. No acute osseous change is noted. Reading Location: [address] 01/19/25 13:15 IMPRESSION: No acute intracranial abnormality. Chronic and ancillary findings as above. Reading Location: [id number] Cerv[address] 01/19/25 13:15 IMPRESSION: No acute cervical spine fracture. Spondylosis. Reading Location: [id number] Lumbar [address] 01/19/25 13:15 IMPRESSION: Nondisplaced fracture of the right L2 transverse process. Reading Location: [id number] Physical Exam Narrative Physical Examination: General: Patient is awake, alert, oriented to self, place and some recent events but cannot give exact dates, fatigued and appears at her baseline. Skin: Normal color, normal turgor, no icterus, no cyanosis except occasional stage ecchymoses, abrasion. HEENT: AT/NC, EOMI, PERRLA, improved MMM. Lungs: Diminished breath sounds, greater bases, mildly increased respiratory rate but no distress, no rales, ronchi or wheezing. Heart: Bradycardic with regular rhythm; no gallop, rub audible. Abdomen: Soft, obese, no tenderness to palpation, distant BS, difficult to discern distention and HSM given habitus. Extremities: No cyanosis, no clubbing, mild ankle not markedly pitting distal edema. Neurological: Patient is awake, alert, oriented to self, place and some recent events but cannot give exact dates, fatigued and appears at her baseline lying in ICU bed, fatigued, cognitive function improved, suspect near baseline, patient does have some chronic impairment, pupils equally reactive to light and accommodation, cranial nerves grossly normal, moving all 4 extremities, strength moderately to severely globally decreased. Psychiatric: Affect appears remains flat, fatigued, no acute evidence of depressive or anxiety feelings but does have underlying history. Assessment & Plan Assessment/Plan (1) Acute hyponatremia: (2) Seizure: PLAN: Plan The patient is a 58 y/o F w/ PMHx: Chronic anemia, Ongoing evaluation for Possible MS, Chronic migraines, Seizure disorder, Obesity, HTN, HLD, Orthostasis on midodrine, Psoriasis, Diabetes mellitus type II w/ neuropathy, Anxiety and Depression, Chronic migraines, Allergic rhinitis, Former tobacco use, Chronic pain syndrome on chronic narcotic regimen, Chronic bradycardia who presents to the [facility] ED on 01/19/2025 with history of mechanical fall with seizure with reported PCP visit on day of presentation and unfortunately following this visit ended up having a seizure witnessed potentially by her sister who called EMS with per phone patient noted that the patient had actually been at the lab to obtain a urine drug screen because the pain management medications for her back and was there from 6 to 10 AM however she was apparently unable to urinate often only able to urinate at home with her sister driving her home to urinate and get sample however in the car she had an emesis bout became very weak and slid down the side of the car with no trauma to the head however she eventually laid her on the ground and while they were waiting for EMS she had a witnessed seizure involving clenching of both her arm and legs lasting about a minute reportedly similar to her previous seizures. #1. Acute Hyponatremia, unclear if potentially hypovolemic etiology with concern for associated breakthrough seizure activity with underlying epilepsy disorder: Admission Na 121, baseline appearance primarily 130-140 range, again appearance primarily euvolemic especially given specific gravity not markedly elevated but uncertain with also noted hypochloremia of 88. Admitted to the ICU, initially cycled BMPs every 2, will continue to cycle repeat BMP every 2 hour while on hypertonic saline with improvement of sodium from 120 2 repeat following ED transition--> 127, transitioned off hypertonic saline to just a low dose normal saline with repeat 01/20/2025 early a.m. sodium 129. Mag 1.6, TSH 1.420, procalcitonin 0.04, urine osmolality 308, urine sodium 32, urine creatinine 62.70 (FeNa 0.30%), tegretol level 9.3 (within normal range), UDS negative. Nephrology consulted. EEG and MRI brain requested. Maintained initially on IV keppra while awaiting medication confirmation, 01/20/25, will add back oral tegretol, topiramate, xcopri home regime while awaiting neurology evaluation. Transition off Keppra if amenable by their service. #2. Bradycardia, possible junctional: Telemetry monitoring with ongoing persistent bradycardia since presentation, questionable junctional rhythm, once EEG is done will obtain EKG which was discussed with nursing staff. TSH normal, magnesium low end, will administer magnesium 2 g IV x 1 and repeat level in AM. #3. Possible Underlying MS/demyelinating disease: Unclear, but prior evaluations with prior evaluation with MRI cervical spine w/ 1x 0.6 cm abnormal hyperintensity in the middle third posterior midline medulla oblongata with following repeat MRI with IV contrast obtained with similar findings (partially rim-enhancing T1 hypointensity lesion in the middle third of the posterior midline medulla oblongata) as well as nonenhancing T1 hypointensity lesion in the left periventricular white matter adjacent to the inferior horn of the left lateral ventricle w/ concern for possible MS plaques with transfer at that time to [facility]; however, several evaluations have yielded negative work-up. She has previously been treated with empiric steroids with resolution of symptoms. Prior records patient had been following with [facility] neurologist Dr. Jonathan Noland for ongoing concerns for underlying multiple sclerosis but see most recent visit with neurology with Dr. Santoro 01/08/2025. Neurology consulted given #1 as noted. Pending MRI and EEG as noted. #4. 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 Has been on midodrine in the past, no currently on. PT/OT/case medicine consulted for discharge planning. #5. Diabetes mellitus type II with chronic neuropathy: Hold oral home regimen, continue home insulin regimen, ADA diet, accu checks w/ ISS, continue patient home chronic gabapentin regimen. #6. Anxiety and depression: We will hold duloxetine and mirtazapine regimen given hyponatremia as noted. Add back once level corrected appropriately. Holding sedative q HS benadryl and ativan PRN. #7. Chronic migraines: Will continue chronic topiramate regimen especially given #1. #8. Chronic orthostasis: Will continue chronic midodrine regimen. #9. Hypertension: Previously been on diuretics, clarified and no longer taking, prior also had midodrine listed, but no longer taking. #10. Hyperlipidemia: Previously been on statin regimen, clarified and no longer taking. #11. Allergic rhinitis: Previously been on fluticasone regimen, clarified and no longer taking. #12. GERD: Will maintain on PPI cautiously especially given hyponatremia. #13. Obesity: Weight loss and lifestyle changes encouraged. #14. Former tobacco use: Encourage continued tobacco cessation. #15. Chronic normocytic anemia: Admission hemoglobin 11.6, MCV 94.8, baseline hemoglobin primarily 9-11, however most recently 01/08/2025 hemoglobin 12.2 but uncertain if this was a true value, 01/20/25 Hgb 9.2, MCV 92.4, more consistent with baseline. Continue to trend. #16. DVT prophylaxis: Lovenox. #17. CODE status: Full Code. Charges/Coding Visit Charges Inpatient E&M: 13900 Subs Hosp L3
[2025-01-20 09:06] LABS: Base Excess -3 mmol/L (-2 to +2); FI02 2.0; PO2 121 mmHG (75-100); SITE R Brach; SO2 99 % (95-99)
[2025-01-20] MEDS: levETIRAcetam IV 500 MG in 0.9% Normal Saline (100mL Bag) 100 ML 420 MG IV ×2 (09:50→21:43)
[2025-01-20] MEDS: Lactobacillis Acidophilus 1 CAP PO (10:11)
[2025-01-20] MEDS: HYDROcodone Bitartrate/Apap 5/325 Tablet PO ×2 (10:21→21:58)
[2025-01-20] MEDS: CENOBAMATE 200 MG TABLET PO (10:22)
[2025-01-20] MEDS: Magnesium Sulfate 2 GM in Dextrose 5%-Water (100mL Bag) 100 ML IV (12:10)
[2025-01-20] MEDS: Insulin Glargine-YFGN 100 UNIT/ML Pen 30 UNIT SC (12:50)
[2025-01-20 14:53] LABS: Anion Gap 12 (5-15); BUN 10 mg/dL (4-19); BUN/Creat Ratio 14.0 RATIO (10-20); Calcium,Total 8.3 mg/dL (7.6-11.0); Carbon Dioxide 15.2 mmol/L (21.0-32.0); Chloride 97 mmol/L (98-108); Estimated Creatinine Clearance 102.70 ml/min (50-250); Glucose 162 mg/dL (70-99)
--- NOTE | 2025-01-20 15:10 | CASEMGMT ---
ENRIQUE SHELL Face to Face with patient for initial transition planning/care coordination assessment. RN SULEMAN introduced self and role at [facility]. Patient lying in bed, alert and oriented. Patient willing to participate in assessment and is able to answer all questions appropriately. Care providers, pharmacy, and demographics verified. Strata: 3 PCP: Calvin Specialists: Maude, neurologist; ALISSA, deputy sheriff bailiff; Preferred Pharmacy: [facility] Insurance: [facility] Dual Prescription Benefit: yes Living Will/HPOA: none LNOK: sister Living Arrangements: Patient lives with sister in a 2 story apartment with 2 steps and railing to enter. Bed and bath on first floor. Patient states she was independent at home but sister assists at times for ADLs Transportation: sister DME/HHC: Patient states she has tube bench, BSC, cane, walker, rollator, medical alert, grab bars, and glucometer with supplies at home. Patient has been to [facility] and [facility] in the past. Patient has had HHC in the past but cannot recall agency. Patient is currently attending outpatient therapy at [facility]. Patient states she has Waiver CM Leticia Pulido [phone]. Patient wishes to discharge home, will monitor progress with therapy. Patient is currently needing assistance x2, RN CM discuss possible HHC vs SNF at discharge. Patient prefers to go home but is willing to go to SNF if she is requiring more assistance than what her sister can provided. Patient states she has no further needs or concerns at this time. CM to follow for discharge planning needs that may arise. Disposition Plan: TBD, anticipate HHC vs SNF pending progress with therapy. Emmy MALHOTRA, RN, CM
[2025-01-20] MEDS: Sodium Bicarbonate 8.4% 50 ML Syringe 50 MEQ IV (15:16)
--- NOTE | 2025-01-20 16:30 | RAD_ITS ---
PROCEDURE: CXR FOR LINE PLACEMENT 01/20/2025 REASON FOR EXAM: LINE PLACEMENT TECHNIQUE: CXR FOR LINE PLACEMENT COMPARISON: Chest radiograph on 01/19/2025 FINDINGS: Interval placement of a left PICC line with tip terminating near the superior cavoatrial junction. Cardiomediastinal silhouette is unchanged. No focal consolidation or significant pleural effusion. Degenerative changes of the spine. RAD/CXR for Line Placement IMPRESSION: Interval placement of a left PICC line, which appears appropriately positioned. Reading Location: [facility]
--- NOTE | 2025-01-20 16:40 | MRI_ITS ---
PROCEDURE: BRAIN W/WO CONTRAST 01/20/2025 REASON FOR EXAM: SEIZURE, MS TECHNIQUE: BRAIN W/WO CONTRAST Multiplanar and multisequence images were obtained. CONTRAST: Clariscan VOLUME: 19 mL COMPARISON: MRI brain with and without contrast, 12/21/2024 FINDINGS: There is mild diffuse cerebral atrophy with concomitant ventriculomegaly. There are few foci of abnormal periventricular white matter signal abnormality. The orientation and distribution of these foci is suggestive of demyelinating disease, as the large abnormality in the right frontal lobe is oriented perpendicular to the long axis of the brain and 1 of the larger abnormalities in the left cerebral hemisphere is in a periatrial location. However these findings are not specific for demyelinating disease and can be seen in chronic ischemic white matter disease. There is a chronic lacunar infarction in the left basal ganglia. There is a normal sulcal pattern and gyral configuration. There is no evidence of acute intracranial hemorrhage or infarction. The manriquez-white differentiation is well preserved. There is no evidence of restricted diffusion. The ventricles and basilar cisterns are normal. There are normal flow voids demonstrated in the recognized intracranial vessels. The cerebellum and brainstem are unremarkable. The cerebellar pontine angles are normal. The craniovertebral junction is normal. The sella and suprasellar regions are normal. There is no abnormal intracranial contrast enhancement. The orbits and retro-orbital regions are unremarkable. There is nasal septal deviation to the left. There is no significant paranasal sinus disease. The mastoid air cells are clear. There is normal bone marrow signal in the skull base and calvarium. MRI/Brain W/WO Contrast IMPRESSION: 1. There is no evidence of acute intracranial pathology. There is no abnormal intracranial contrast enhancement. 2. Foci of abnormal periventricular white matter signal abnormality are consis tent with demyelinating disease. There are no new foci. 3. Other findings as noted, not significantly changed. Reading Location: [id number]
--- NOTE | 2025-01-20 16:48 | PCM.CONS.R ---
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 Whether it is related to previous traumatic brain injury or multiple antiseizure/SILO ERECTOR medications, especially Tegretol, or combination of both. It has been exacerbated by recent increase in oral fluid intake in order to hydrate herself as suggested by her sister. I suspect sister thought that she is dehydrated based on her dry mouth which is a complication of multiple medications that she is taking. So far, it was believed most recent sodium of 129, I think her correction rate is appropriate and that she is not in a dangerous level at the moment PLAN: Plan Continue with the sodium monitoring Fluid restriction should be implemented, and I think just 1500 cc a day sounds reasonable It would be important to continue with the fluid restriction when she goes home HPI Consult Data Date of Consult: 01/20/25 HPI Narrative Reason for Consultation: Hyponatremia, low bicarb HPI Narrative: FAM VINSON, is a 59 F who presents to the emergency room after witnessed seizure. She is 59 years old lady with traumatic brain injury, seizure disorder, bipolar disorder, depression who takes bunch of SILO ERECTOR medications that include Tegretol, duloxetine etc. She does have relatively low sodium, but most of it it has been over 130. Patient has been told by her sister that she is chronically dehydrated because her mouth is dry and patient increase her oral daily fluid intake by 3 bottles. She states that her mouth is chronically dry due to intake of psychiatric medications. When she came over her sodium was 120, she received normal saline, hypertonic saline and needed, up to 128 today. Repeated sodium was 124, but apparently was a difficult draw and it is being repeated. Urine sodium is 32, urine osmolality is 300. [facility] Medical History Diabetes mellitus, type 2 Gastroenteritis COVID-19 virus infection Bradycardia Multiple sclerosis Demyelinating disease of central nervous system Epilepsy Generalized weakness Recurrent falls Recurrent syncope Anxiety Depression COPD (chronic obstructive pulmonary disease) Migraines Multiple falls History of CVA (cerebrovascular accident) GERD (gastroesophageal reflux disease) Obesity Former tobacco use Seizure disorder Allergic rhinitis Chronic migraine Orthostasis HTN (hypertension) Psoriasis Hypercholesterolemia Home Medications ?Medication ?Instructions ?Recorded ?Last Taken ?Type albuterol sulfate 90 mcg/actuation 2 puff inhalation Q4H PRN Wheezing 09/03/22 09/04/23 History aerosol inhaler insulin syr/ndl U100 half shirley 0.5 09/03/22 Unknown History mL 31 gauge x 5/16 (Droplet Insulin Syringe (half unit)) dextromethorphan 20 mg-quinidine 1 cap PO BID DEPRESSION 02/06/23 10/09/23 History 10 mg capsule (Nuedexta) insulin lispro 100 unit/mL 3 unit subcut .COMPLEX DIABETES 09/04/23 09/04/23 History subcutaneous solution meclizine 25 mg tablet 25 mg PO DAILY PRN vertigo 09/04/23 09/04/23 History nystatin 100,000 unit/gram topical 1 applic topical BID RASH 09/04/23 10/09/23 History powder (Nyamyc) lorazepam 0.5 mg tablet 0.5 mg PO QHS PRN Anxiety 10/09/23 Unknown History Lactobacillus rhamnosus GG 10 1 cap PO DAILY recurrent uti 05/09/24 Unknown History billion cell capsule (Culturelle) ascorbic acid (vitamin C) 500 mg 500 mg PO QDAY see pcp 05/09/24 Unknown History tablet cranberry fruit 450 mg tablet 450 mg PO TID see pcp 05/09/24 Unknown History duloxetine 60 mg capsule,delayed 60 mg PO QDAY mental health 05/09/24 Unknown History release hydrocodone-acetaminophen 5-325mg 1 tab PO BID pain 09/11/24 Unknown History 5mg-325mg atorvastatin 80 mg tablet 80 mg PO QHS cholesterol #90 tabs 10/30/24 Unknown Rx cephalexin 250 mg capsule 250 mg PO QHS recurrent UTI #90 10/30/24 Unknown Rx caps flash glucose scanning reader #1 ea 10/30/24 Unknown Rx (FreeStyle Es 2 [place]) flash glucose sensor (FreeStyle #3 ea 10/30/24 Unknown Rx Es 2 Sensor kit) insulin glargine 100 unit/mL (3 20 unit subcut QAM diabetes 11/09/24 Unknown History mL) subcutaneous pen handicap placard #1 ea 11/15/24 Unknown Rx fluticasone furoate 200 1 inh inhalation DAILY copd #30 ea 11/20/24 Unknown Rx mcg/actuation blister powder for inhalation (Arnuity Ellipta) mirtazapine 15 mg tablet 30 mg PO QHS sleep 12/14/24 Unknown History omeprazole 40 mg capsule,delayed 40 mg PO DAILY GERD #90 caps 01/03/25 Unknown Rx release cenobamate 200 mg tablet (Xcopri) 200 mg PO QDAY #30 tabs 01/08/25 Unknown Rx gabapentin 800 mg tablet 800 mg PO QHS nerve pain #30 tabs 01/08/25 Unknown Rx ibuprofen 600 mg tablet 600 mg PO TID PRN headache/pain 01/08/25 Unknown Rx #90 tabs levocarnitine 330 mg tablet 330 mg PO BID elevated ammonia #60 01/08/25 Unknown Rx tabs promethazine 12.5 mg tablet 12.5 mg PO TID PRN nausea and 01/08/25 Unknown Rx vomiting #90 tabs ubrogepant 100 mg tablet (Ubrelvy) 100 mg PO .COMPLEX MIGRAINE #14 01/08/25 Unknown Rx tabs carbamazepine 200 mg tablet 200 mg PO BID seizures 01/19/25 Unknown History (Tegretol) carbamazepine 300 mg 300 mg PO QHS seizures 01/19/25 Unknown History capsule,extended release [id number] diphenhydramine HCl 25 mg capsule 50 mg PO QHS sleep 01/19/25 Unknown History (Allergy (diphenhydramine)) gabapentin 300 mg capsule 300 mg PO BID pain 01/19/25 Unknown History galcanezumab-gnlm 120 mg/mL 120 mg subcut QMONTH migraines 01/19/25 Unknown History subcutaneous pen injector (Emgality Pen) hydroxyzine HCl 25 mg tablet 50 mg PO QHS sleep 01/19/25 Unknown History melatonin 10 mg capsule 10 mg PO QHS sleep 01/19/25 Unknown History semaglutide 0.25 mg or 0.5 mg (2 0.25 mg subcut QWEEK diabetes 01/19/25 Unknown History mg/3 mL) subcutaneous pen injector (Ozempic) tizanidine 2 mg tablet 2 mg PO TID for muscle spasm 01/19/25 Unknown History topiramate 25 mg tablet 25 mg PO BID seizures 01/19/25 Unknown History Allergy/AdvReac Type Severity Reaction Status Date / Time adhesive tape Allergy Intermediate Rash Verified 01/08/25 08:39 latex Allergy Rash Verified 01/08/25 08:39 levofloxacin (From Levaquin) Allergy Hives Verified 01/08/25 08:39 ondansetron (From Zofran) Allergy Hives Verified 01/08/25 08:39 nalbuphine (From Nubain) AdvReac Other Verified 01/08/25 08:39 Family History Father Hypertension Hyperlipidemia Asthma Colon cancer Mother Cancer lung Aunt Breast cancer Aunt Breast cancer Grandmother Cancer ovarian Grandfather Cancer prostate Grandmother Cancer Uncle Hypertension Aunt Hypertension Sister Hypertension Asthma Surgical History History of appendectomy Hx of tubal ligation Hx of tonsillectomy Hx of cholecystectomy Social History household members: none 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 Smoking Status: Former smoker quit date: 07/12/21 pack-years: 10 alcohol intake: never substance use type: does not use do you feel safe at home: Yes ROS Constitutional Constitutional: Reports malaise and weakness Eyes Eyes: Denies blindness, blurry vision, change in vision, discongugate gaze, double vision, dry eyes or loss of vision ENT HEENT: Reports dry mouth Cardiovascular Cardiovascular: Denies chest pain, claudication, diaphoresis, dyspnea on exertion, edema, irregular heart rhythm, leg edema, orthopnea, palpitations or syncope Respiratory/Chest Respiratory/Chest: Denies dry cough, dyspnea on exertion, hemoptysis, portable oxygen @ home, productive cough, shortness of breath at rest or wheezing Gastrointestinal Gastrointestinal: Denies abdominal pain, anorexia, diarrhea, dry heaves, hematemesis, hematochezia, melena, nausea, rectal bleeding, vomiting or weight changes Genitourinary Genitourinary: Denies change in urinary stream, difficulty urinating, dribbling, dysuria, flank pain, hematuria, nocturia, oliguria, post void dribbling, urinary frequency, urinary hesitancy, urinary incontinence or urinary urgency Musculoskeletal Musculoskeletal: Denies abnormal gait, arthralgias, joint stiffness, joint swelling, muscle cramps or myalgias Integumentary Integumentary: Denies dry skin, erythema, jaundice, lesions, pruritus, rash or skin ulcer Neurologic Neurologic: Denies abnormal gait, burning sensations, confusion, focal weakness, frequent falls, headache(s), numbness, restless legs, seizures, syncope, tremor(s) or weakness Psychiatric Psychiatric: Reports depression Endocrine Endocrinology: Denies cold intolerance, fatigue, heat intolerance, polydipsia or polyuria Physical Exam Const alert, oriented x3 and no apparent distress General Appearance: well developed Orientation / Consciousness: oriented to person, oriented to place and oriented to time HEENT normocephalic Eyes no scleral icterus Neck no lymphadenopathy Resp no use of accessory muscles and clear to auscultation bilaterally Cardio regular rate Rate: bradycardia GI non-tender Auscultation: normoactive bowel sounds Palpation: soft no CVA tenderness Skin no rashes or lesions noted Neuro Sensorium / Orientation: awake and alert Psych cooperative Medical Records Data Attestation: I reviewed the patient's medical records Lab / Micro Data Attestation: I reviewed the patient's lab results. 01/20/25 04:25 01/20/25 14:00 Labs: Laboratory Results - last 24 hr 01/19/25 11:56: Sodium 122 L, Potassium 4.4, Chloride 90 L, Carbon Dioxide 12.1 L, Anion Gap 20 H, BUN 13, Creatinine 0.71, Estim Creat Clear Calc 99.82, Est GFR (MDRD) Non-Af 99, BUN/Creatinine Ratio 18.2, Glucose 179 H, Calcium 8.7, Magnesium 1.6, Procalcitonin 0.04, TSH 1.420, Carbamazepine 9.3 01/19/25 12:49: Urine Osmolality 308, Ur Random Sodium 32, Urine Creatinine 62.70 01/19/25 20:32: Sodium 127 L, Potassium 4.6, Chloride 96 L, Carbon Dioxide 17.2 L, Anion Gap 14, BUN 9, Creatinine 0.71, Estim Creat Clear Calc 99.82, Est GFR (MDRD) Non-Af 99, BUN/Creatinine Ratio 13.3, Glucose 124 H, Calcium 8.3 01/20/25 00:10: Sodium 128 L, Potassium 3.6, Chloride 99, Carbon Dioxide 18.3 L, Anion Gap 11, BUN 9, Creatinine 0.60 L, Estim Creat Clear Calc 118.12, Est GFR (MDRD) Non-Af 104, BUN/Creatinine Ratio 14.1, Glucose 113 H, Calcium 7.7 01/20/25 04:25: WBC 12.5 H, RBC 3.01 L, Hgb 9.2 L, Hct 27.8 L, MCV 92.4, MCH 30.6, MCHC 33.1, RDW Std Deviation 48.3 H, RDW Coeff of He 14.2, Plt Count 201, MPV 10.6, Immature Gran % (Auto) 0.400, Neut % (Auto) 75.3 H, Lymph % (Auto) 13.8 L, Crowley % (Auto) 9.4, Eos % (Auto) 0.8, Baso % (Auto) 0.3, Absolute Neuts (auto) 9.4 H, Absolute Lymphs (auto) 1.72, Nucleated RBC % 0, Sodium 129 L, Potassium 3.6, Chloride 101, Carbon Dioxide 17.9 L, Anion Gap 10, BUN 9, Creatinine 0.63 L, Estim Creat Clear Calc 114.11, Est GFR (MDRD) Non-Af 103, BUN/Creatinine Ratio 14.3, Glucose 125 H, Calcium 7.6, Total Bilirubin 0.23, AST 17, ALT 13, Alkaline Phosphatase 87, Total Protein 5.3 L, Albumin 3.2 L, Globulin 2.1 L, Albumin/Globulin Ratio 1.6 01/20/25 12:29: POC Glucose 160 H 01/20/25 14:00: Sodium 124 L, Potassium TNP, Chloride 97 L, Carbon Dioxide 15.2 L, Anion Gap 12, BUN 10, Creatinine 0.70, Estim Creat Clear Calc 102.70, Est GFR (MDRD) Non-Af 100, BUN/Creatinine Ratio 14.0, Glucose 162 H, Calcium 8.3 ABG Data ABG results: ABG 01/20/25 09:02 Specimen Type ART Sample Site R Brach pH 7.42 Bicarbonate Actual 21.7 L Total CO2 23 Base Excess -3 L O2 Saturation 99 O2 % 2.0 ABG pCO2 33.7 L ABG pO2 121 H O2 Delivery Device Cannula Vent Mode Not entered Imaging Radiology Impression Brain MRI 01/20/25 16:40 IMPRESSION: 1. There is no evidence of acute intracranial pathology. There is no abnormal intracranial contrast enhancement. 2. Foci of abnormal periventricular white matter signal abnormality are consistent with demyelinating disease. There are no new foci. 3. Other findings as noted, not significantly changed. Reading Location: [facility]
[2025-01-20] MEDS: 0.9% Normal Saline (1000mL) 1,000 ML 50 ML IV (17:16)
[2025-01-20 17:36] LABS: Anion Gap 11 (5-15); BUN 10 mg/dL (4-19); BUN/Creat Ratio 15.3 RATIO (10-20); Calcium,Total 8.1 mg/dL (7.6-11.0); Carbon Dioxide 22.0 mmol/L (21.0-32.0); Chloride 98 mmol/L (98-108); Estimated Creatinine Clearance 105.72 ml/min (50-250); Glucose 218 mg/dL (70-99); Potassium 3.9 mmol/L (3.3-5.1)
--- NOTE | 2025-01-20 21:31 | PCM.PN.TICU ---
Objective Data Objective Data Vital Signs: Vital Signs Last response Temperature 36.6 C 01/20/25 16:00 Temperature Source Oral 01/20/25 16:00 Pulse Rate 47 L 01/20/25 19:31 Pulse Strength Weak (1+) 01/20/25 08:50 Respiratory Rate 10 L 01/20/25 19:31 Respiratory Effort Normal, Non-Labored 01/20/25 20:00 Respiratory Depth Normal 01/20/25 20:00 Respiratory Pattern Normal 01/20/25 20:00 Blood Pressure 118/69 01/20/25 18:00 Blood Pressure Mean 85 01/20/25 18:00 Blood Pressure Source Monitor 01/20/25 18:00 Blood Pressure Position Semi-Fowlers 01/20/25 18:00 Blood Pressure Location Left Arm 01/20/25 18:00 Pulse Ox 99 01/20/25 19:31 Oxygen Delivery Method Room Air 01/20/25 20:00 Oxygen Flow Rate (L/min) 2 01/20/25 12:00 Fraction of Inspired Oxygen (FIO2) 95 01/20/25 16:00 I&O: I&O Last 24 Hours 01/19/25 01/20/25 01/20/25 23:59 11:59 23:59 Intake Total 1434.5 / 1434.5 120 / 1667.33 1547.33 / 1667.33 Output Total 775 / 775 800 / 800 Balance 659.5 / 659.5 120 / 867.33 747.33 / 867.33 I&O: Total Stay 01/19/25 11:09 thru 01/20/25 17:40 Intake Total 3101.83 Output Total 1575 Balance 1526.83 Current Meds Ordered / Administered: Current meds ordered / Administered Generic Name Dose Route Start Last Admin Trade Name Freq PRN Reason Stop Dose Admin Acetaminophen 650 mg 01/19/25 16:40 01/19/25 17:12 Acetaminophen 325 Mg Tablet PO 650 mg Q4H PRN PRN Administration Fever, pain 1-10/10 Hydrocodone Bitart/Acetaminophen 1 tablet 01/19/25 22:00 01/20/25 10:21 Hydrocodone Bitartrate/Apap 5/325 Tablet PO 1 tablet BID ELICIA Administration Al Hydroxide/Mg Hydroxide 30 ml 01/19/25 16:40 Mag Hydrox/Al Hydrox/Simeth 30 Ml Udc PO Q6H PRN PRN Gastric Burning Albuterol Sulfate 2.5 mg 01/19/25 16:40 Albuterol 2.5 Mg/3 Ml Vial.Neb. INHALATION Q2H PRN PRN Dyspnea, wheezing Albuterol/Ipratropium 3 ml 01/19/25 16:40 01/20/25 19:29 Ipratropium/Albuterol Sulfate 3 Ml Ampul.Neb INHALATION 3 ml Q6HWA.RT ELICIA Administration Aspirin 81 mg 01/20/25 08:00 01/20/25 10:08 Aspirin 81 Mg Tab.Chew PO 81 mg BREAKFAST ELICIA Administration Atorvastatin Calcium 80 mg 01/19/25 22:00 01/19/25 21:34 Atorvastatin Calcium 80 Mg Tablet PO 80 mg QHS ELICIA Administration Budesonide 0.5 mg 01/19/25 21:30 01/20/25 19:29 Budesonide Respules 0.5 Mg/2 Ml Ampul.Neb. INHALATION 0.5 mg Q12H.RT ELICIA Administration Calamine/Phenol 1 applic 01/19/25 18:00 01/20/25 20:18 Menthol/Lanolin/Calamine/Znox 113 Gm Tube TOPICAL 1 applic 4X/DAY ELICIA Administration Protocol Carbamazepine 200 mg 01/20/25 10:00 01/20/25 15:18 Carbamazepine 200 Mg Tablet PO 200 mg 1000,1500 ELICIA Administration Carbamazepine 300 mg 01/19/25 22:00 01/19/25 21:35 Carbamazepine 200 Mg Tablet PO 300 mg 2200 ELICIA Administration Cenobamate 200 mg 01/20/25 10:00 01/20/25 10:22 Cenobamate 200 Mg Tablet PO 200 mg DAILY ELICIA Administration Enoxaparin Sodium 40 mg 01/20/25 10:00 01/20/25 10:13 Enoxaparin 40 Mg/0.4 Ml Syringe SC 40 mg DAILY ELICIA Administration Gabapentin 300 mg 01/20/25 10:00 01/20/25 15:28 Gabapentin 300 Mg Capsule PO 300 mg 1000,1500 ELICIA Administration Gabapentin 800 mg 01/19/25 22:00 01/19/25 21:33 Gabapentin 800 Mg Tablet PO 800 mg QHS ELICIA Administration Glucagon 1 mg 01/19/25 16:40 Glucagon 1 Mg/Ml Syringe IM X1 PRN HYPOGLYCEMIA Protocol Guaifenesin 10 ml 01/19/25 16:40 Guaifenesin 10 Ml Udc (200mg/10ml) PO Q4H PRN PRN COUGH Hydralazine HCl 10 mg 01/19/25 16:40 Hydralazine 20 Mg/Ml Vial IV Q4H PRN PRN SBP > 160 Protocol Sodium Chloride 250 mls @ 15 mls/hr 01/19/25 16:16 IV .[id number] PRN Saline Flush Sodium Chloride 250 mls @ 15 mls/hr 01/19/25 16:16 IV .[id number] PRN Additional IVPB Infusion Levetiracetam 500 mg/ Sodium 105 mls @ 420 mls/hr 01/19/25 22:00 01/20/25 15:21 Chloride IV Infused Q12 ELICIA Infusion Dextrose 250 mls @ 0 mls/hr 01/19/25 16:40 Dextrose 10%-Water IV .Q0M PRN HYPOGLYCEMIA Protocol As Directed Sodium Chloride 1,000 mls @ 50 mls/hr 01/19/25 21:45 01/20/25 17:16 IV 50 mls/hr .Q20H ELICIA Administration Ibuprofen 600 mg 01/19/25 20:44 01/20/25 15:28 Ibuprofen 600 Mg Tablet PO 600 mg TID PRN Administration HEADACHE/PAIN 1-10 Insulin Glargine 30 unit 01/20/25 10:00 01/20/25 12:50 Insulin Glargine-Yfgn 100 Unit/Ml Pen SC 30 unit QAM ELICIA Administration Insulin Human Lispro 0 unit 01/19/25 22:00 01/20/25 17:26 Insulin Lispro 100 Unit/Ml Insuln.Pen SC 2 unit ACHS ELICIA Administration Protocol Levocarnitine 330 mg 01/19/25 22:00 01/20/25 10:13 Levocarnitine 330 Mg Tablet PO 330 mg BID ELICIA Administration Lorazepam 1 mg 01/20/25 08:03 Lorazepam 2 Mg/Ml Wch Syringe IV X1 PRN SEIZURES Meclizine HCl 25 mg 01/19/25 20:40 Meclizine Hcl 25 Mg Tablet PO BID PRN PRN DIZZINESS Melatonin 10 mg 01/19/25 22:00 01/19/25 21:33 Melatonin 10 Mg Tablet PO 10 mg QHS ELICIA Administration Nystatin 1 applic 01/19/25 22:00 01/20/25 20:17 Nystatin Powder 15gm Bottle TOPICAL 1 applic BID [facility] Administration Protocol Pantoprazole Sodium 40 mg 01/20/25 10:00 01/20/25 10:08 Pantoprazole Sodium 40 Mg Tablet PO 40 mg DAILY ELICIA Administration Promethazine HCl 12.5 mg 01/19/25 20:57 01/19/25 21:00 Promethazine 25 Mg Tablet PO 12.5 mg TID PRN Administration nausea and vomiting Senna/Docusate Sodium 2 tablet 01/19/25 16:40 Senna/Docusate Sodium 1 Tablet PO BID PRN PRN Constipation Sodium Chloride 10 - 40 ml 01/19/25 16:16 01/20/25 12:50 0.9% Saline Lock 10 Ml Syringe IV 20 ml UD PRN Administration SALINE FLUSH Tizanidine HCl 2 mg 01/19/25 20:40 Tizanidine Hcl 2 Mg Tablet PO TID PRN PRN MUSCLE SPASM Topiramate 25 mg 01/19/25 22:00 01/20/25 15:20 Topiramate 25 Mg Tablet PO 25 mg 1500,2200 [facility] Administration Lab / Micro Data 01/20/25 04:25 01/20/25 17:00 Labs: Laboratory Results - last 24 hr 01/20/25 00:10: Sodium 128 L, Potassium 3.6, Chloride 99, Carbon Dioxide 18.3 L, Anion Gap 11, BUN 9, Creatinine 0.60 L, Estim Creat Clear Calc 118.12, Est GFR (MDRD) Non-Af 104, BUN/Creatinine Ratio 14.1, Glucose 113 H, Calcium 7.7 01/20/25 04:25: WBC 12.5 H, RBC 3.01 L, Hgb 9.2 L, Hct 27.8 L, MCV 92.4, MCH 30.6, MCHC 33.1, RDW Std Deviation 48.3 H, RDW Coeff of He 14.2, Plt Count 201, MPV 10.6, Immature Gran % (Auto) 0.400, Neut % (Auto) 75.3 H, Lymph % (Auto) 13.8 L, [place] % (Auto) 9.4, Eos % (Auto) 0.8, Baso % (Auto) 0.3, Absolute Neuts (auto) 9.4 H, Absolute Lymphs (auto) 1.72, Nucleated RBC % 0, Sodium 129 L, Potassium 3.6, Chloride 101, Carbon Dioxide 17.9 L, Anion Gap 10, BUN 9, Creatinine 0.63 L, Estim Creat Clear Calc 114.11, Est GFR (MDRD) Non-Af 103, BUN/Creatinine Ratio 14.3, Glucose 125 H, Calcium 7.6, Total Bilirubin 0.23, AST 17, ALT 13, Alkaline Phosphatase 87, Total Protein 5.3 L, Albumin 3.2 L, Globulin 2.1 L, Albumin/Globulin Ratio 1.6 01/20/25 12:29: POC Glucose 160 H 01/20/25 14:00: Sodium 124 L, Potassium TNP, Chloride 97 L, Carbon Dioxide 15.2 L, Anion Gap 12, BUN 10, Creatinine 0.70, Estim Creat Clear Calc 102.70, Est GFR (MDRD) Non-Af 100, BUN/Creatinine Ratio 14.0, Glucose 162 H, Calcium 8.3 01/20/25 17:00: Sodium 130 L, Potassium 3.9, Chloride 98, Carbon Dioxide 22.0, Anion Gap 11, BUN 10, Creatinine 0.68 L, Estim Creat Clear Calc 105.72, Est GFR (MDRD) Non-Af 101, BUN/Creatinine Ratio 15.3, Glucose 218 H, Calcium 8.1 01/20/25 17:02: POC Glucose 209 H ABG Data ABG results: ABG 01/20/25 09:02 Specimen Type ART Sample Site R Brach pH 7.42 Bicarbonate Actual 21.7 L Total CO2 23 Base Excess -3 L O2 Saturation 99 O2 % 2.0 ABG pCO2 33.7 L ABG pO2 121 H O2 Delivery Device Cannula Vent Mode Not entered Imaging Radiology Impression Chest X-Ray 01/20/25 16:30 IMPRESSION: Interval placement of a left PICC line, which appears appropriately positioned. Reading Location: [id number] Brain MRI 01/20/25 16:40 IMPRESSION: 1. There is no evidence of acute intracranial pathology. There is no abnormal intracranial contrast enhancement. 2. Foci of abnormal periventricular white matter signal abnormality are consistent with demyelinating disease. There are no new foci. 3. Other findings as noted, not significantly changed. Reading Location: [id number] Assessment and Plan . Assessment and plan: 59y/o F admitted to the ICU for seizures and hyponatremia. She has history of seizure d/o, chronic back pain,? HTN, orthostasis, migraines, DM. She was at lab for routine urine drug screen today but while at car she had episode on n/v/weakness and then seizure. EMS brought her to the ED labs significant for metabolic acidosis, Na 122. IN the ED she was given 1 L NS and Keppra 1gm.?In the ICU she received 4 hrs of hypertonic saline and most recent Na 127. She has no complaints at this time. Her sister manages her home medications. 01/20/25 She is awake, w/ some confusion Serum Na+ rising - isotonic saline infusing Nephrology evaluation pending EXAM GEN NAD VS as above HEENT MMM NECK supple COR RRR CHEST CTA ABD soft EXT minimal edema LARON NF ASSESSMENT #Hyponatremia s/p hypertonic saline #Seizure #Metabolic acidosis - improved #Chronic medical conditions, multiple #Polypharmacy -Follow Neuro exam -Continue Keppra BID and Tegretol -PRN Ativan for seizures -MRI brain noted -Neurology consulted -Follow Na+ -Nephrology consulted We are available as needed. The entirety of this encounter was done via Telemedicine
[2025-01-20] MEDS: MELATONIN 10 MG TABLET PO (21:46)
[2025-01-21] VITALS (22 sets, daily range): BP systolic 90–159; BP diastolic 61–84; PULSE 44–80; RESP 8–20; TEMP 36.4–36.7; O2SAT 94–100; BMI 34.7
[2025-01-21] MEDS: 0.9% Saline Lock 10 ML Syringe IV ×3 (04:20→16:24)
[2025-01-21 04:31] LABS: Hematocrit 28.4 % (37-47); Hemoglobin 9.3 g/dL (12.0-15.0); Immature Granulocytes Count 0.030 X10^3/uL (0.0-0.0); Mean Corp Hgb Conc 32.7 g/dL (32-36); Mean Corpuscular Volume 92.8 fL (81-99); Mean Platelet Vol. 10.4 fl (6.2-12.0); NRBC Flagged by Analyzer 0 % (0-5); Platelet Count 203 K/mm3 (150-450); RBC Distribution Width CV 14.4 % (11.6-14.6); RBC Distribution Width SD 48.2 fl (35.1-43.9); Red Blood Count 3.06 M/mm3 (4.2-5.4); White Blood Count 6.4 K/mm3 (4.4-11.0)
[2025-01-21 05:29] LABS: Magnesium 2.2 mg/dL (1.5-2.2)
[2025-01-21 05:31] LABS: AST(SGOT) 18 U/L (<=31); Alanine Aminotransfer ALT/SGPT 13 U/L (<=34); Albumin, Serum 3.6 g/dL (3.5-5.0); Alkaline Phosphatase 105 U/L (35-104); Anion Gap 9 (5-15); BUN 10 mg/dL (4-19); BUN/Creat Ratio 16.3 RATIO (10-20); Calcium,Total 8.3 mg/dL (7.6-11.0); Carbon Dioxide 23.5 mmol/L (21.0-32.0); Chloride 99 mmol/L (98-108); Estimated Creatinine Clearance 122.37 ml/min (50-250); Globulin 2.7 g/dL (2.2-4.2); Glucose 121 mg/dL (70-99); Potassium 4.1 mmol/L (3.3-5.1)
--- NOTE | 2025-01-21 06:52 | PN.HOSP_ITS ---
Reason for Visit Reason for Visit: Diagnoses Hypo-osmolality and hyponatremia (01/19/25) Unspecified convulsions (01/19/25) Subjective Subjective Patient with no acute events overnight per self and per nursing report. Patient upright in the bedside chair in the ICU more interactive and appropriate answering questions. Patient knows where she is, month, year although she seems to be guessing and is able to give information the president but cannot give his exact name. Discussed plan of care which included evaluation previously by nephrology with eventual transition to fluid restriction given concerns for mild SIADH although some component potentially hypovolemia although she has improved significantly with de-escalation off IV fluids. Noted plan of care for evaluation by neurology which is pending and at that time potentially de- escalating off of the Keppra. Patient this morning did get her complement of gabapentin as well as her seizure medications and following this was extremely sluggish and fatigued which may be what is occurring as she following this she did have asymptomatic bradycardia again. Discussed with nursing staff and will have pharmacy alter her dosing timeline to avoid this. Patient denies fevers, chills, nausea, emesis, abdominal pain, chest pain or dyspnea. Objective Data Objective Data Vital Signs: Vital Signs Temp Pulse Resp BP Pulse Ox O2 Del Method O2 Flow Rate 97.6 F L 55 L 10 L 135/61 H 100 Nasal Cannula 2 01/21/25 04:00 01/21/25 06:00 01/21/25 06:00 01/21/25 06:00 01/21/25 06:00 01/21/25 06:00 01/21/25 06:00 FiO2 95 01/20/25 16:00 Oxygen Flow Rate (L/min) 2 Oxygen Delivery Method Nasal Cannula Weight: 214 lb 15.211 oz Body Mass Index (BMI) 34.7 Intake & Output: Intake and Output for Last 24 Hours 01/19/25 01/20/25 01/21/25 23:59 23:59 23:59 Intake Total 1434.5 / 1434.5 2052.33 / 2052.33 Output Total 775 / 775 1100 / 1100 550 / 550 Balance 659.5 / 659.5 952.33 / 952.33 -550 / -550 Lab / Micro Data 01/21/25 04:17 01/21/25 04:17 Labs: Laboratory Results - last 24 hr 01/20/25 12:29: POC Glucose 160 H 01/20/25 14:00: Sodium 124 L, Potassium TNP, Chloride 97 L, Carbon Dioxide 15.2 L, Anion Gap 12, BUN 10, Creatinine 0.70, Estim Creat Clear Calc 102.70, Est GFR (MDRD) Non-Af 100, BUN/Creatinine Ratio 14.0, Glucose 162 H, Calcium 8.3 01/20/25 17:00: Sodium 130 L, Potassium 3.9, Chloride 98, Carbon Dioxide 22.0, Anion Gap 11, BUN 10, Creatinine 0.68 L, Estim Creat Clear Calc 105.72, Est GFR (MDRD) Non-Af 101, BUN/Creatinine Ratio 15.3, Glucose 218 H, Calcium 8.1 01/20/25 17:02: POC Glucose 209 H 01/20/25 21:42: POC Glucose 181 H 01/21/25 04:17: WBC 6.4, RBC 3.06 L, Hgb 9.3 L, Hct 28.4 L, MCV 92.8, MCH 30.4, MCHC 32.7, RDW Std Deviation 48.2 H, RDW Coeff of He 14.4, Plt Count 203, MPV 10.4, Immature Gran % (Auto) 0.500, Neut % (Auto) 61.8, Lymph % (Auto) 26.2, [place] % (Auto) 8.5, Eos % (Auto) 2.4, Baso % (Auto) 0.6, Absolute Neuts (auto) 3.9, Absolute Lymphs (auto) 1.67, Nucleated RBC % 0, Sodium 131 L, Potassium 4.1, Chloride 99, Carbon Dioxide 23.5, Anion Gap 9, BUN 10, Creatinine 0.59 L, Estim Creat Clear Calc 122.37, Est GFR (MDRD) Non-Af 104, BUN/Creatinine Ratio 16.3, Glucose 121 H, Calcium 8.3, Magnesium 2.2, Total Bilirubin < 0.15, AST 18, ALT 13, Alkaline Phosphatase 105 H, Total Protein 6.4, Albumin 3.6, Globulin 2.7, Albumin/Globulin Ratio 1.3 ABG Data ABG results: ABG 01/20/25 09:02 Specimen Type ART Sample Site R Brach pH 7.42 Bicarbonate Actual 21.7 L Total CO2 23 Base Excess -3 L O2 Saturation 99 O2 % 2.0 ABG pCO2 33.7 L ABG pO2 121 H O2 Delivery Device Cannula Vent Mode Not entered Radiography Diagnostic Testing: Radiology Impression Chest X-Ray 01/20/25 16:30 IMPRESSION: Interval placement of a left PICC line, which appears appropriately positioned. Reading Location: [id number] Brain MRI 01/20/25 16:40 IMPRESSION: 1. There is no evidence of acute intracranial pathology. There is no abnormal intracranial contrast enhancement. 2. Foci of abnormal periventricular white matter signal abnormality are consistent with demyelinating disease. There are no new foci. 3. Other findings as noted, not significantly changed. Reading Location: [id number] Physical Exam Narrative Physical Examination: General: Patient is awake, alert, oriented to self, place, month, knows who the president is but cannot give his name but giving correct information on him, gives correct year, much more alert and interactive, seated upright in the ICU bed chair. Skin: Normal color, normal turgor, no icterus, no cyanosis except occasional stage ecchymoses, abrasion. HEENT: AT/NC, EOMI, PERRLA, MMM. Lungs: Diminished breath sounds, greater bases, mildly increased respiratory rate but no distress, no rales, ronchi or wheezing. Heart: Bradycardic with regular rhythm; no gallop, rub audible. Abdomen: Soft, obese, no tenderness to palpation, distant BS. Extremities: No cyanosis, no clubbing, mild ankle not markedly pitting distal edema. Neurological: Patient is awake, alert, oriented as noted, more interactive, cognitive function likely near baseline at this time, pupils equally reactive to light and accommodation, cranial nerves grossly normal, moving all 4 extremities, strength proving, moderately globally decreased. Psychiatric: Affect appears remains fatigued but much more interactive and appropriate than a prior, no acute evidence of depressive or anxiety feelings but does have underlying history. Assessment & Plan Assessment/Plan (1) Acute hyponatremia: (2) Seizure: PLAN: Plan The patient is a 58 y/o F w/ PMHx: Chronic anemia, Ongoing evaluation for Possible MS, Chronic migraines, Seizure disorder, Obesity, HTN, HLD, Orthostasis on midodrine, Psoriasis, Diabetes mellitus type II w/ neuropathy, Anxiety and Depression, Chronic migraines, Allergic rhinitis, Former tobacco use, Chronic pain syndrome on chronic narcotic regimen, Chronic bradycardia who presents to the [facility] ED on 01/19/2025 with history of mechanical fall with seizure with reported PCP visit on day of presentation and unfortunately following this visit ended up having a seizure witnessed potentially by her sister who called EMS with per phone patient noted that the patient had actually been at the lab to obtain a urine drug screen because the pain management medications for her back and was there from 6 to 10 AM however she was apparently unable to urinate often only able to urinate at home with her sister driving her home to urinate and get sample however in the car she had an emesis bout became very weak and slid down the side of the car with no trauma to the head however she eventually laid her on the ground and while they were waiting for EMS she had a witnessed seizure involving clenching of both her arm and legs lasting about a minute reportedly similar to her previous seizures. #1. 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 Admitted to the ICU, initially cycled BMPs every 2, will continue to cycle repeat BMP every 2 hour while on hypertonic saline with improvement of sodium from 120 2 repeat following ED transition--> 127, transitioned off hypertonic saline to just a low dose normal saline and following clinical improvement of sodium level with recommendation for nephrology to transition to fluid restriction discontinued. Mag 1.6, TSH 1.420, procalcitonin 0.04, urine osmolality 308, urine sodium 32, urine creatinine 62.70 (FeNa 0.30%), tegretol level 9.3 (within normal range), UDS negative. 01/20/25 EEG with generalized slowing with no epileptic spikes. 01/20/25 MRI of the brain with no focal evidence of acute pathology, foci of abnormal periventricular white matter signal abnormality consistent with demyelinating disease otherwise no change. Maintained initially on IV keppra while awaiting medication confirmation, 01/20/25 added back oral tegretol, topiramate, xcopri home regime while awaiting neurology evaluation. Transition off Keppra if amenable by their service. 01/20/2025 nephrology evaluation with recommendation for continued sodium monitoring, initiation of fluid restriction with 1500 cc daily which should be continued upon discharge. Neurology consulted and evaluation pending. 01/21/25 Na 131. #2. Bradycardia, possible junctional: Telemetry monitoring with ongoing persistent bradycardia since presentation, questionable junctional rhythm, EKG similar to prior EKGs x 2, TSH normal, 01/20/25magnesium low end, administered magnesium 2 g IV x 1, 01/21/25 Mag 2.2. As noted patient with onset of notable bradycardia following her gabapentin and seizure medications all dosed at the same time which is how she takes them at home and it was following this she had significant onset of bradycardia again, discussed with nursing staff and will arrange with pharmacy to avoid dosing is all at the same time. Awaiting neurology input as may be these medications can be altered or transitions. #3. Possible Underlying MS/demyelinating disease: Unclear, but prior evaluations with prior evaluation with MRI cervical spine w/ 1x 0.6 cm abnormal hyperintensity in the middle third posterior midline medulla oblongata with following repeat MRI with IV contrast obtained with similar findings (partially rim-enhancing T1 hypointensity lesion in the middle third of the posterior midline medulla oblongata) as well as nonenhancing T1 hypointensity lesion in the left periventricular white matter adjacent to the inferior horn of the left lateral ventricle w/ concern for possible MS plaques with transfer at that time to [facility]; however, several evaluations have yielded negative work-up. She has previously been treated with empiric steroids with resolution of symptoms. Prior records patient had been following with [facility] neurologist Dr. Jonathan Noland for ongoing concerns for underlying multiple sclerosis but see most recent visit with neurology with Dr. Santoro 01/08/2025. 01/20/25 EEG with generalized slowing with no epileptic spikes. 01/20/25 MRI of the brain with no focal evidence of acute pathology, foci of abnormal periventricular white matter signal abnormality consistent with demyelinating disease otherwise no change. Neurology consulted and evaluation pending. #4. 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 Has been on midodrine in the past, no currently on. PT/OT/case medicine consulted for discharge planning. #5. Diabetes mellitus type II with chronic neuropathy: Hold oral home regimen, continue home insulin regimen, ADA diet, accu checks w/ ISS, continue patient home chronic gabapentin regimen. #6. Anxiety and depression: We will hold duloxetine and mirtazapine regimen given hyponatremia as noted. Add back once level corrected appropriately. Holding sedative q HS benadryl and ativan PRN. #7. Chronic migraines: Will continue chronic topiramate regimen especially given #1. #8. Chronic orthostasis: Will continue chronic midodrine regimen. #9. Hypertension: Previously been on diuretics, clarified and no longer taking, prior also had midodrine listed, but no longer taking. #10. Hyperlipidemia: Previously been on statin regimen, clarified and no longer taking. #11. Allergic rhinitis: Previously been on fluticasone regimen, clarified and no longer taking. #12. GERD: Will maintain on PPI cautiously especially given hyponatremia. #13. Obesity: Weight loss and lifestyle changes encouraged. #14. Former tobacco use: Encourage continued tobacco cessation. #15. Chronic normocytic anemia: Admission hemoglobin 11.6, MCV 94.8, baseline hemoglobin primarily 9-11, however most recently 01/08/2025 hemoglobin 12.2 but uncertain if this was a true value, 01/20/25 Hgb 9.2, MCV 92.4, more consistent with baseline, 01/21/25 Hgb 9.3, MCV 92.8. Continue to trend. #16. DVT prophylaxis: Lovenox. #17. CODE status: Full Code. Charges/Coding Visit Charges Inpatient E&M: 28920 Subs Hosp L3
[2025-01-21] MEDS: Budesonide Respules 0.5 MG/2 ML AMPUL.NEB. INHALATION ×2 (07:02→19:02)
[2025-01-21] MEDS: Lactobacillis Acidophilus 1 CAP PO (08:54)
[2025-01-21] MEDS: Insulin Glargine-YFGN 100 UNIT/ML Pen 30 UNIT SC (08:56)
[2025-01-21] MEDS: HYDROcodone Bitartrate/Apap 5/325 Tablet PO (09:04)
[2025-01-21] MEDS: CENOBAMATE 200 MG TABLET PO (09:05)
--- NOTE | 2025-01-21 12:26 | PCM.PN.BLA ---
Progress Note Patient with more notable bradycardia, occasionally symptomatic. Reviewed with pharmacy again again suspect smitha/norco related given timeline. She takes it like this at home also thus suspect ongoing issue. Will have atropine as needed. Will cautiously transition back to ICU status until assure this is no longer an issue. Timed out regimen differently to see if still occurs.
--- NOTE | 2025-01-21 15:22 | PN.CC_ITS ---
Objective Data Objective Data Vital Signs: Vital Signs Last response 3 Temperature 36.5 C L 01/21/25 08:00 Temperature Source Oral 01/21/25 08:00 Pulse Rate 54 L 01/21/25 12:59 Pulse Strength Weak (1+) 01/20/25 08:50 Respiratory Rate 10 L 01/21/25 12:59 Respiratory Effort Normal, Non-Labored 01/21/25 04:07 Respiratory Depth Normal 01/21/25 04:07 Respiratory Pattern Normal 01/21/25 12:59 Blood Pressure 92/65 01/21/25 11:15 Blood Pressure Mean 74 01/21/25 11:15 Blood Pressure Source Monitor 01/21/25 11:15 Blood Pressure Position Semi-Fowlers 01/21/25 11:15 Blood Pressure Location Right Arm 01/21/25 11:15 Pulse Ox 100 01/21/25 11:15 Oxygen Delivery Method Room Air 01/21/25 11:15 Oxygen Flow Rate (L/min) 2 01/21/25 06:00 Fraction of Inspired Oxygen (FIO2) 95 01/20/25 16:00 I&O: I&O Last 24 Hours 3 01/20/25 01/21/25 01/21/25 23:59 11:59 23:59 Intake Total 1932.33 / 2052.33 240 / 540 300 / 540 Output Total 1100 / 1100 1125 / 1125 Balance 832.33 / 952.33 -885 / -585 300 / -585 I&O: Total Stay 3 01/19/25 11:09 thru 01/21/25 12:00 Intake Total 4026.83 Output Total 3000 Balance 1026.83 Current Meds Ordered / Administered: Current meds ordered / Administered 3 Generic Name Dose Route Start Last Admin Trade Name Freq PRN Reason Stop Dose Admin Acetaminophen 650 mg 01/19/25 16:40 01/19/25 17:12 Acetaminophen 325 Mg Tablet PO 650 mg Q4H PRN PRN Administration Fever, pain 1-10/10 Hydrocodone Bitart/Acetaminophen 1 tablet 01/21/25 20:00 Hydrocodone Bitartrate/Apap 5/325 Tablet PO Q12H ELICIA Al Hydroxide/Mg Hydroxide 30 ml 01/19/25 16:40 Mag Hydrox/Al Hydrox/Simeth 30 Ml Udc PO Q6H PRN PRN Gastric Burning Albuterol Sulfate 2.5 mg 01/19/25 16:40 Albuterol 2.5 Mg/3 Ml Vial.Neb. INHALATION Q2H PRN PRN Dyspnea, wheezing Albuterol/Ipratropium 3 ml 01/19/25 16:40 01/21/25 12:59 Ipratropium/Albuterol Sulfate 3 Ml Ampul.Neb INHALATION 3 ml Q6HWA.RT ELICIA Administration Aspirin 81 mg 01/20/25 08:00 01/21/25 08:56 Aspirin 81 Mg Tab.Chew PO 81 mg BREAKFAST ELICIA Administration Atorvastatin Calcium 80 mg 01/19/25 22:00 01/20/25 21:46 Atorvastatin Calcium 80 Mg Tablet PO 80 mg QHS ELICIA Administration Atropine Sulfate 1 mg 01/21/25 12:25 Atropine Sulfate 1 Mg/10 Ml Syringe IV PRN PRN Sympt rod mckeon MD of use. Budesonide 0.5 mg 01/19/25 21:30 01/21/25 07:02 Budesonide Respules 0.5 Mg/2 Ml Ampul.Neb. INHALATION 0.5 mg Q12H.RT ELICIA Administration Calamine/Phenol 1 applic 01/19/25 18:00 01/21/25 14:29 Menthol/Lanolin/Calamine/Znox 113 Gm Tube TOPICAL Not Given 4X/DAY ELICIA Protocol Carbamazepine 200 mg 01/20/25 10:00 01/21/25 09:00 Carbamazepine 200 Mg Tablet PO 200 mg 1000,1500 ELICIA Administration Carbamazepine 300 mg 01/19/25 22:00 01/20/25 21:47 Carbamazepine 200 Mg Tablet PO 300 mg 2200 ELICIA Administration Cenobamate 200 mg 01/20/25 10:00 01/21/25 09:05 Cenobamate 200 Mg Tablet PO 200 mg DAILY ELICIA Administration Enoxaparin Sodium 40 mg 01/20/25 10:00 01/21/25 08:55 Enoxaparin 40 Mg/0.4 Ml Syringe SC 40 mg DAILY ELICIA Administration Gabapentin 800 mg 01/19/25 22:00 01/20/25 21:58 Gabapentin 800 Mg Tablet PO 800 mg QHS ELICIA Administration Gabapentin 300 mg 01/21/25 16:00 Gabapentin 300 Mg Capsule PO 1100,1600 ELICIA Glucagon 1 mg 01/19/25 16:40 Glucagon 1 Mg/Ml Syringe IM X1 PRN HYPOGLYCEMIA Protocol Guaifenesin 10 ml 01/19/25 16:40 Guaifenesin 10 Ml Udc (200mg/10ml) PO Q4H PRN PRN COUGH Hydralazine HCl 10 mg 01/19/25 16:40 Hydralazine 20 Mg/Ml Vial IV Q4H PRN PRN SBP > 160 Protocol Sodium Chloride 250 mls @ 15 mls/hr 01/19/25 16:16 IV .[id number] PRN Saline Flush Sodium Chloride 250 mls @ 15 mls/hr 01/19/25 16:16 IV .[id number] PRN Additional IVPB Infusion Levetiracetam 500 mg/ Sodium 105 mls @ 420 mls/hr 01/19/25 22:00 01/21/25 11:24 Chloride IV Not Given Q12 ELICIA Dextrose 250 mls @ 0 mls/hr 01/19/25 16:40 Dextrose 10%-Water IV .Q0M PRN HYPOGLYCEMIA Protocol As Directed Ibuprofen 600 mg 01/19/25 20:44 01/20/25 15:28 Ibuprofen 600 Mg Tablet PO 600 mg TID PRN Administration HEADACHE/PAIN 1-10 Insulin Glargine 30 unit 01/20/25 10:00 01/21/25 08:56 Insulin Glargine-Yfgn 100 Unit/Ml Pen SC 30 unit QAM ELICIA Administration Insulin Human Lispro 0 unit 01/19/25 22:00 01/21/25 12:47 Insulin Lispro 100 Unit/Ml Insuln.Pen SC Not Given ACHS [facility] Protocol Levocarnitine 330 mg 01/19/25 22:00 01/21/25 08:59 Levocarnitine 330 Mg Tablet PO 330 mg BID ELICIA Administration Loratadine 10 mg 01/20/25 22:05 01/20/25 22:29 Loratadine 10 Mg Tablet PO 10 mg QHS ELICIA Administration Lorazepam 1 mg 01/20/25 08:03 Lorazepam 2 Mg/Ml Wch Syringe IV X1 PRN SEIZURES Meclizine HCl 25 mg 01/19/25 20:40 Meclizine Hcl 25 Mg Tablet PO BID PRN PRN DIZZINESS Melatonin 10 mg 01/19/25 22:00 01/20/25 21:46 Melatonin 10 Mg Tablet PO 10 mg QHS ELICIA Administration Nystatin 1 applic 01/19/25 22:00 01/21/25 08:59 Nystatin Powder 15gm Bottle TOPICAL Not Given BID [facility] Protocol Pantoprazole Sodium 40 mg 01/20/25 10:00 01/21/25 08:55 Pantoprazole Sodium 40 Mg Tablet PO 40 mg DAILY ELICIA Administration Promethazine HCl 12.5 mg 01/19/25 20:57 01/19/25 21:00 Promethazine 25 Mg Tablet PO 12.5 mg TID PRN Administration nausea and vomiting Senna/Docusate Sodium 2 tablet 01/19/25 16:40 Senna/Docusate Sodium 1 Tablet PO BID PRN PRN Constipation Sodium Chloride 10 - 40 ml 01/19/25 16:16 01/21/25 12:42 0.9% Saline Lock 10 Ml Syringe IV 20 ml UD PRN Administration SALINE FLUSH Tizanidine HCl 2 mg 01/19/25 20:40 Tizanidine Hcl 2 Mg Tablet PO TID PRN PRN MUSCLE SPASM Topiramate 25 mg 01/19/25 22:00 01/20/25 21:52 Topiramate 25 Mg Tablet PO 25 mg 1500,2200 [facility] Administration Lab / Micro Data 01/21/25 04:17 01/21/25 04:17 Labs: Laboratory Results - last 24 hr 01/20/25 17:00: Sodium 130 L, Potassium 3.9, Chloride 98, Carbon Dioxide 22.0, Anion Gap 11, BUN 10, Creatinine 0.68 L, Estim Creat Clear Calc 105.72, Est GFR (MDRD) Non-Af 101, BUN/Creatinine Ratio 15.3, Glucose 218 H, Calcium 8.1 01/20/25 17:02: POC Glucose 209 H 01/20/25 21:42: POC Glucose 181 H 01/21/25 04:17: WBC 6.4, RBC 3.06 L, Hgb 9.3 L, Hct 28.4 L, MCV 92.8, MCH 30.4, MCHC 32.7, RDW Std Deviation 48.2 H, RDW Coeff of He 14.4, Plt Count 203, MPV 10.4, Immature Gran % (Auto) 0.500, Neut % (Auto) 61.8, Lymph % (Auto) 26.2, [place] % (Auto) 8.5, Eos % (Auto) 2.4, Baso % (Auto) 0.6, Absolute Neuts (auto) 3.9, Absolute Lymphs (auto) 1.67, Nucleated RBC % 0, Sodium 131 L, Potassium 4.1, Chloride 99, Carbon Dioxide 23.5, Anion Gap 9, BUN 10, Creatinine 0.59 L, Estim Creat Clear Calc 122.37, Est GFR (MDRD) Non-Af 104, BUN/Creatinine Ratio 16.3, Glucose 121 H, Calcium 8.3, Magnesium 2.2, Total Bilirubin < 0.15, AST 18, ALT 13, Alkaline Phosphatase 105 H, Total Protein 6.4, Albumin 3.6, Globulin 2.7, Albumin/Globulin Ratio 1.3 01/21/25 08:41: POC Glucose 148 H 01/21/25 12:47: POC Glucose 159 H Imaging Radiology Impression Chest X-Ray 01/20/25 16:30 IMPRESSION: Interval placement of a left PICC line, which appears appropriately positioned. Reading Location: [id number] Assessment and Plan . Assessment and plan: Chart and data reviewed Condition d/w BS RN Serum Na+ improving Still having problems w/ bradycardia I am unfamiliar w/ many of the Neuro medications she takes, but Tegretol apparently has a side effect profile which includes bradycardia and potential heart block I would consider holding this for now, but will defer to neurology I am told that Neurology consultation is still pending
--- NOTE | 2025-01-21 15:35 | PCM.PN.REN ---
Subjective Subjective Follow-up on hyponatremia. Apparently after morning meds she became hypotensive and bradycardic in the 30s. Now her Topamax and Tegretol are on hold. Most recent sodium was 131. Objective Data Objective Data Vital Signs: Vital Signs Temp Pulse Resp BP Pulse Ox O2 Del Method O2 Flow Rate 97.7 F L 54 L 10 L 92/65 100 Room Air 2 01/21/25 08:00 01/21/25 12:59 01/21/25 12:59 01/21/25 11:15 01/21/25 11:15 01/21/25 11:15 01/21/25 06:00 FiO2 95 01/20/25 16:00 Oxygen Flow Rate (L/min) 2 Oxygen Delivery Method Room Air Weight: 97.5 kg Body Mass Index (BMI) 34.7 Intake & Output: Intake and Output for Last 24 Hours 01/19/25 01/20/25 01/21/25 23:59 23:59 23:59 Intake Total 1434.5 / 1434.5 2052.33 / 2052.33 540 / 540 Output Total 775 / 775 1100 / 1100 1125 / 1125 Balance 659.5 / 659.5 952.33 / 952.33 -585 / -585 Lab / Micro Data Attestation: I reviewed the patient's lab results. 01/21/25 04:17 01/21/25 04:17 Labs: Laboratory Results - last 24 hr 01/20/25 17:00: Sodium 130 L, Potassium 3.9, Chloride 98, Carbon Dioxide 22.0, Anion Gap 11, BUN 10, Creatinine 0.68 L, Estim Creat Clear Calc 105.72, Est GFR (MDRD) Non-Af 101, BUN/Creatinine Ratio 15.3, Glucose 218 H, Calcium 8.1 01/20/25 17:02: POC Glucose 209 H 01/20/25 21:42: POC Glucose 181 H 01/21/25 04:17: WBC 6.4, RBC 3.06 L, Hgb 9.3 L, Hct 28.4 L, MCV 92.8, MCH 30.4, MCHC 32.7, RDW Std Deviation 48.2 H, RDW Coeff of He 14.4, Plt Count 203, MPV 10.4, Immature Gran % (Auto) 0.500, Neut % (Auto) 61.8, Lymph % (Auto) 26.2, [place] % (Auto) 8.5, Eos % (Auto) 2.4, Baso % (Auto) 0.6, Absolute Neuts (auto) 3.9, Absolute Lymphs (auto) 1.67, Nucleated RBC % 0, Sodium 131 L, Potassium 4.1, Chloride 99, Carbon Dioxide 23.5, Anion Gap 9, BUN 10, Creatinine 0.59 L, Estim Creat Clear Calc 122.37, Est GFR (MDRD) Non-Af 104, BUN/Creatinine Ratio 16.3, Glucose 121 H, Calcium 8.3, Magnesium 2.2, Total Bilirubin < 0.15, AST 18, ALT 13, Alkaline Phosphatase 105 H, Total Protein 6.4, Albumin 3.6, Globulin 2.7, Albumin/Globulin Ratio 1.3 01/21/25 08:41: POC Glucose 148 H 01/21/25 12:47: POC Glucose 159 H Radiography Diagnostic Testing: Radiology Impression Chest X-Ray 01/20/25 16:30 IMPRESSION: Interval placement of a left PICC line, which appears appropriately positioned. Reading Location: [id number] Physical Exam Const alert, oriented x3 and no apparent distress Orientation / Consciousness: oriented to person, oriented to place and oriented to time Nutritional Appearance: obese HEENT normocephalic Head and Scalp: atraumatic Neck no lymphadenopathy Resp no use of accessory muscles and clear to auscultation bilaterally Cardio regular rate Rate: bradycardia GI non-tender and non-distended Auscultation: normoactive bowel sounds Palpation: soft Skin no rashes or lesions noted Neuro Sensorium / Orientation: awake and alert Psych cooperative Assessment & Plan Assessment/Plan (1) Acute hyponatremia: PLAN: Commendation of slight SIADH and increase oral fluid intake. Her sodium is normalizing with fluid restriction only. Now when her Tegretol is on hold, she may not even need any significant fluid restriction. No need for hypertonic saline
--- NOTE | 2025-01-21 16:00 | NURSING ---
pt HR 38, c/o aura, difficulty thinking straight and worsening speech. Atropine given, tegretol and topomax already held. Dr. Sneed notified
[2025-01-21] MEDS: Senna/Docusate Sodium 1 Tablet 2 TABLET PO (20:09)
[2025-01-21] MEDS: MELATONIN 10 MG TABLET PO (23:30)
[2025-01-22] VITALS (28 sets, daily range): BP systolic 101–171; BP diastolic 53–103; PULSE 44–75; RESP 11–20; TEMP 36.1–36.8; O2SAT 7–100; BMI 35.2
[2025-01-22 05:00] LABS: AST(SGOT) 18 U/L (<=31); Alanine Aminotransfer ALT/SGPT 16 U/L (<=34); Albumin, Serum 3.7 g/dL (3.5-5.0); Alkaline Phosphatase 101 U/L (35-104); Anion Gap 10 (5-15); BUN 11 mg/dL (4-19); BUN/Creat Ratio 16.1 RATIO (10-20); Calcium,Total 8.6 mg/dL (7.6-11.0); Carbon Dioxide 22.8 mmol/L (21.0-32.0); Chloride 99 mmol/L (98-108); Estimated Creatinine Clearance 107.08 ml/min (50-250); Globulin 2.4 g/dL (2.2-4.2); Glucose 131 mg/dL (70-99); Potassium 4.5 mmol/L (3.3-5.1)
[2025-01-22 06:37] LABS: Hematocrit 27.5 % (37-47); Hemoglobin 8.8 g/dL (12.0-15.0); Mean Corp Hgb Conc 32.0 g/dL (32-36); Mean Corpuscular Volume 93.9 fL (81-99); RBC Distribution Width CV 14.4 % (11.6-14.6); Red Blood Count 2.93 M/mm3 (4.2-5.4); White Blood Count 6.8 K/mm3 (4.4-11.0)
[2025-01-22 06:38] LABS: Immature Granulocytes Count 0.040 X10^3/uL (0.0-0.0); Mean Platelet Vol. 11.1 fl (6.2-12.0); Platelet Count 216 K/mm3 (150-450); RBC Distribution Width SD 49.5 fl (35.1-43.9)
[2025-01-22] MEDS: Budesonide Respules 0.5 MG/2 ML AMPUL.NEB. INHALATION ×2 (07:32→19:33)
--- NOTE | 2025-01-22 08:27 | PN.HOSP_ITS ---
Reason for Visit Chief Complaint: Seizure, fall. Subjective Subjective Patient is a 59-year-old lady with history of seizure disorder, previous midbrain CVA with residual left-sided hemiplegia who presented to the emergency department after an apparent seizure episode. Patient was found to have significant hyponatremia. Admitted to the intensive care unit for further management Objective Data Objective Data Vital Signs: Vital Signs Temp Pulse Resp BP Pulse Ox O2 Del Method O2 Flow Rate 98.1 F 63 16 139/64 H 100 Room Air 2 01/22/25 03:00 01/22/25 07:32 01/22/25 07:32 01/22/25 06:00 01/22/25 07:32 01/22/25 07:32 01/21/25 06:00 FiO2 95 01/20/25 16:00 Oxygen Flow Rate (L/min) 2 Oxygen Delivery Method Room Air Weight: 99.1 kg Body Mass Index (BMI) 35.2 Intake & Output: Intake and Output for Last 24 Hours 01/20/25 01/21/25 01/22/25 23:59 23:59 23:59 Intake Total 2052.33 / 2052.33 2090 / 2090 Output Total 1100 / 1100 2250 / 2250 750 / 750 Balance 952.33 / 952.33 -160 / -160 -750 / -750 Lab / Micro Data 01/22/25 03:34 01/22/25 03:34 Labs: Laboratory Results - last 24 hr 01/21/25 08:41: POC Glucose 148 H 01/21/25 12:47: POC Glucose 159 H 01/21/25 17:39: POC Glucose 130 H 01/21/25 23:38: POC Glucose 169 H 01/22/25 03:34: WBC 6.8, RBC 2.93 L, Hgb 8.8 L, Hct 27.5 L, MCV 93.9, MCH 30.0, MCHC 32.0, RDW Std Deviation 49.5 H, RDW Coeff of He 14.4, Plt Count 216, MPV 11.1, Immature Gran % (Auto) 0.600, Neut % (Auto) 61.9, Lymph % (Auto) 25.3, [place] % (Auto) 9.1, Eos % (Auto) 2.5, Baso % (Auto) 0.6, Absolute Neuts (auto) Not Reportable, Sodium 132 L, Potassium 4.5, Chloride 99, Carbon Dioxide 22.8, Anion Gap 10, BUN 11, Creatinine 0.68 L, Estim Creat Clear Calc 107.08, Est GFR (MDRD) Non-Af 101, BUN/Creatinine Ratio 16.1, Glucose 131 H, Calcium 8.6, Total Bilirubin < 0.15, AST 18, ALT 16, Alkaline Phosphatase 101, Total Protein 6.0, Albumin 3.7, Globulin 2.4, Albumin/Globulin Ratio 1.5 Physical Exam Narrative GENERAL: cooperative HEENT: Atraumatic; normocephalic EYES; Anicteric, Normal Conjunctiva NECK; supple, normal thyroid, RESPIRATORY: Diminished to auscultation CARDIOVASCULAR: Regular S1 S2, GI: soft, normoactive bowel sounds, : No Renal angle tenderness; EXTREMITIES: No edema, no clubbing, MUSCULOSKELETAL: no muscle wasting NEURO: Awake; no lateralizing signs. SKIN: No Rash PSYCH; Flat affect Assessment & Plan Assessment/Plan (1) Acute hyponatremia: (2) Seizure: PLAN: Plan Patient is a 59-year-old lady with history of seizure disorder, previous midbrain CVA with residual left-sided hemiplegia who presented to the emergency department after an apparent seizure episode. Patient was found to have significant hyponatremia. Admitted to the intensive care unit for further management 1. Seizure disorder ? With breakthrough seizure. Patient admitted to a monitored bed. Did continue patient home antiseizure medications EEG ordered and consultation placed to [facility] 2.Mild hyponatremia ? Patient sodium level on admission was 121. Given patient presentation?seizures patient was placed on hypertonic saline which was later followed by fluid restriction. Patient's sodium level as of 01/22/2025 was 132 3. Mild bradycardia ?Patient monitored continuously. TSH obtained on admission came back within normal limits. Per patient she had undergone Holter monitoring by her primary cardiology on account of bradycardia and consideration has been given to possible pacemaker placement. Consult subsequently placed to cardiology 4. Class II obesity with BMI of 36 ? Complicating care weight loss advised 5. Diabetes mellitus type II -patient's oral hypoglycemics held. Placed on long acting insulin, Accu-Cheks a.c. and at bedtime and covered with sliding scale insulin 6. GERD ? On PPI 7. Chronic migraines ? Per history. Followed by neurology as outpatient 8. Possible Underlying MS/demyelinating disease ? Patient currently being evaluated by neurology as outpatient 9. History of previous midbrain CVA ? With residual left-sided hemiplegia requested for PT OT eval 10. Allergic rhinitis ? Patient is on fluticasone 11. DVT prophylaxis ? Subcu Lovenox Charges/Coding Visit Charges Inpatient E&M: 72211 Subs Hosp L2
[2025-01-22] MEDS: HYDROcodone Bitartrate/Apap 5/325 Tablet PO (08:55)
--- NOTE | 2025-01-22 09:23 | PCM.CONS.C ---
Assessment & Plan Assessment/Plan (1) Bradycardia: PLAN: Patient has a history of chronic bradycardia. This dates back at least to November 2023. At that time she was documented to be in a junctional rhythm on multiple ECGs with heart rates in the 40-50 bpm range. Patient's ECG on 01/20/2025 showed junctional rhythm at 42 bpm with a right bundle branch block and left anterior fascicular block which are known to be chronic. The patient's bradycardia became much more prominent with heart rates into the 30-35 bpm range after taking her morning medications on 01/21/2025. She has multiple neurologic epileptic medications some of which have been noted to cause bradycardia. The patient denied any significant lightheaded or dizzy spells she does complain of some lightheadedness. She had she wore a Holter monitor December 2024 and reported lightheaded dizzy spells at that time with heart rates that were junctional in the 35-50 bpm range. The patient has not fallen she reports to me that every time she starts to feel little dizzy she sits down and her heart rate comes right back up. Heart rate this morning on telemetry shows sinus rhythm at 65-70 bpm. The patient does have episodes of sinus pauses and is highly likely she has sick sinus syndrome. Will try to alter the patient's medications with neurology's input as to maybe we could spread out the drugs or use alternatives that may not be rate modulating. If this is unsuccessful would have to revisit the possibility of a pacemaker implantation. (2) Hx of type 2 diabetes mellitus: PLAN: Diabetes is managed by the primary service. (3) Acute hyponatremia: PLAN: Patient was admitted with acute hyponatremia which is slowly improving sodium is 132 today. This is managed by the primary service and nephrology. (4) Epilepsy: QUALIFIERS: Epilepsy type: unspecified Intractability: not intractable Status epilepticus: without status epilepticus Qualified Code(s): G40.909 - Epilepsy, unspecified, not intractable, without status epilepticus PLAN: Patient carries a history of epilepsy that is being treated by neurology. She also has a history of demyelinating disease thought to be multiple sclerosis. PLAN: Plan 1. Will see if we can alter the medical regiment to improve her heart rate. 2. Defer alterations of the medications to the neurology team. 3. If the patient has symptomatic bradycardia given these findings of sinus pauses and junctional rhythm would have to revisit the possibility of permanent pacemaker implantation. HPI Consult Data Date of Consult: 01/22/25 HPI Narrative Reason for Consultation: Bradycardia HPI Narrative: FAM VINSON, is a 59 F who presents with hyponatremia and seizures. The patient carries a longstanding history of seizure disorder on multiple medications. The patient was noted to have bradycardia heart rates in the 35 to 40 bpm range with junctional rhythm. Patient has a longstanding history dating back to November 2023 with junctional rhythms in the 40-50 bpm range. The patient has at times noted lightheaded spells and room spinning she denies any recent falls she is now living at home historically had lived at [facility]. The patient was noted to have sinus pauses sinus bradycardia and junctional rhythm on telemetry during this hospitalization. It was also noted that her most prominent bradycardia occurred shortly after taking multiple medications in the morning on 01/21/2025. She also had episodes throughout the night with heart rates in the 34 bpm range with sinus pauses. This morning the patient denies any lightheaded dizzy spells she is resting comfortably in her come position in bed. Neurology it is to evaluate her later today. There is a possibility that some of her antiseizure meds are creating some of the bradycardia. The patient has an abnormal ECG on 712 on admission she was in a junctional rhythm at 42 bpm with a right bundle branch block and left anterior fascicular block. Patient had a Holter monitor done December 2024 where she was in primarily a junctional rhythm heart rates ranging from 30-50 bpm. She did note some lightheaded spells during that Holter monitor. Patient carries a anemia, probable multiple sclerosis, chronic migraines obesity hypertension orthostatic changes due to diabetic neuropathy seizures with falls. Her bradycardia is been chronic since at least November 2023. [facility] Medical History (Updated 01/22/25 @ 09:[address] Pelon Valero MD) Bradycardia Diabetes mellitus, type 2 Gastroenteritis COVID-19 virus infection Multiple sclerosis Demyelinating disease of central nervous system Epilepsy Generalized weakness Recurrent falls Recurrent syncope Anxiety Depression COPD (chronic obstructive pulmonary disease) Migraines Multiple falls History of CVA (cerebrovascular accident) GERD (gastroesophageal reflux disease) Obesity Former tobacco use Seizure disorder Allergic rhinitis Chronic migraine Orthostasis HTN (hypertension) Psoriasis Hypercholesterolemia Home Medications ?Medication ?Instructions ?Recorded ?Last Taken ?Type albuterol sulfate 90 mcg/actuation 2 puff inhalation Q4H PRN Wheezing 09/03/22 09/04/23 History aerosol inhaler insulin syr/ndl U100 half shirley 0.5 09/03/22 Unknown History mL 31 gauge x 5/16 (Droplet Insulin Syringe (half unit)) dextromethorphan 20 mg-quinidine 1 cap PO BID DEPRESSION 02/06/23 10/09/23 History 10 mg capsule (Nuedexta) insulin lispro 100 unit/mL 3 unit subcut .COMPLEX DIABETES 09/04/23 09/04/23 History subcutaneous solution meclizine 25 mg tablet 25 mg PO DAILY PRN vertigo 09/04/23 09/04/23 History nystatin 100,000 unit/gram topical 1 applic topical BID RASH 09/04/23 10/09/23 History powder (Nyamyc) lorazepam 0.5 mg tablet 0.5 mg PO QHS PRN Anxiety 10/09/23 Unknown History Lactobacillus rhamnosus GG 10 1 cap PO DAILY recurrent uti 05/09/24 Unknown History billion cell capsule (Culturelle) ascorbic acid (vitamin C) 500 mg 500 mg PO QDAY see pcp 05/09/24 Unknown History tablet cranberry fruit 450 mg tablet 450 mg PO TID see pcp 05/09/24 Unknown History duloxetine 60 mg capsule,delayed 60 mg PO QDAY mental health 05/09/24 Unknown History release hydrocodone-acetaminophen 5-325mg 1 tab PO BID pain 09/11/24 Unknown History 5mg-325mg atorvastatin 80 mg tablet 80 mg PO QHS cholesterol #90 tabs 10/30/24 Unknown Rx cephalexin 250 mg capsule 250 mg PO QHS recurrent UTI #90 10/30/24 Unknown Rx caps flash glucose scanning reader #1 ea 10/30/24 Unknown Rx (FreeStyle Es 2 [place]) flash glucose sensor (FreeStyle #3 ea 10/30/24 Unknown Rx Es 2 Sensor kit) insulin glargine 100 unit/mL (3 20 unit subcut QAM diabetes 11/09/24 Unknown History mL) subcutaneous pen handicap placard #1 ea 11/15/24 Unknown Rx fluticasone furoate 200 1 inh inhalation DAILY copd #30 ea 11/20/24 Unknown Rx mcg/actuation blister powder for inhalation (Arnuity Ellipta) mirtazapine 15 mg tablet 30 mg PO QHS sleep 12/14/24 Unknown History omeprazole 40 mg capsule,delayed 40 mg PO DAILY GERD #90 caps 01/03/25 Unknown Rx release cenobamate 200 mg tablet (Xcopri) 200 mg PO QDAY #30 tabs 01/08/25 Unknown Rx gabapentin 800 mg tablet 800 mg PO QHS nerve pain #30 tabs 01/08/25 Unknown Rx ibuprofen 600 mg tablet 600 mg PO TID PRN headache/pain 01/08/25 Unknown Rx #90 tabs levocarnitine 330 mg tablet 330 mg PO BID elevated ammonia #60 01/08/25 Unknown Rx tabs promethazine 12.5 mg tablet 12.5 mg PO TID PRN nausea and 01/08/25 Unknown Rx vomiting #90 tabs ubrogepant 100 mg tablet (Ubrelvy) 100 mg PO .COMPLEX MIGRAINE #14 01/08/25 Unknown Rx tabs carbamazepine 200 mg tablet 200 mg PO BID seizures 01/19/25 Unknown History (Tegretol) carbamazepine 300 mg 300 mg PO QHS seizures 01/19/25 Unknown History capsule,extended release [id number] diphenhydramine HCl 25 mg capsule 50 mg PO QHS sleep 01/19/25 Unknown History (Allergy (diphenhydramine)) gabapentin 300 mg capsule 300 mg PO BID pain 01/19/25 Unknown History galcanezumab-gnlm 120 mg/mL 120 mg subcut QMONTH migraines 01/19/25 Unknown History subcutaneous pen injector (Emgality Pen) hydroxyzine HCl 25 mg tablet 50 mg PO QHS sleep 01/19/25 Unknown History melatonin 10 mg capsule 10 mg PO QHS sleep 01/19/25 Unknown History semaglutide 0.25 mg or 0.5 mg (2 0.25 mg subcut QWEEK diabetes 01/19/25 Unknown History mg/3 mL) subcutaneous pen injector (Ozempic) tizanidine 2 mg tablet 2 mg PO TID for muscle spasm 01/19/25 Unknown History topiramate 25 mg tablet 25 mg PO BID seizures 01/19/25 Unknown History Allergy/AdvReac Type Severity Reaction Status Date / Time adhesive tape Allergy Intermediate Rash Verified 01/08/25 08:39 latex Allergy Rash Verified 01/08/25 08:39 levofloxacin (From Levaquin) Allergy Hives Verified 01/08/25 08:39 ondansetron (From Zofran) Allergy Hives Verified 01/08/25 08:39 nalbuphine (From Nubain) AdvReac Other Verified 01/08/25 08:39 Family History Father Hypertension Hyperlipidemia Asthma Colon cancer Mother Cancer lung Aunt Breast cancer Aunt Breast cancer Grandmother Cancer ovarian Grandfather Cancer prostate Grandmother Cancer Uncle Hypertension Aunt Hypertension Sister Hypertension Asthma Surgical History History of appendectomy Hx of tubal ligation Hx of tonsillectomy Hx of cholecystectomy Social History household members: none 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 Smoking Status: Former smoker quit date: 07/12/21 pack-years: 10 alcohol intake: never substance use type: does not use do you feel safe at home: Yes ROS Constitutional Constitutional: Reports as per HPI Eyes Eyes: Reports systems reviewed and no addt'l complaints, except as documented ENT HEENT: Reports systems reviewed and no addt'l complaints, except as documented Cardiovascular Cardiovascular: Reports as per HPI Respiratory/Chest Respiratory/Chest: Reports systems reviewed and no addt'l complaints, except as documented Gastrointestinal Gastrointestinal: Reports systems reviewed and no addt'l complaints, except as documented Genitourinary Genitourinary: Reports systems reviewed and no addt'l complaints, except as documented Musculoskeletal Musculoskeletal: Reports systems reviewed and no addt'l complaints, except as documented Integumentary Integumentary: Reports systems reviewed and no addt'l complaints, except as documented Neurologic Neurologic: Reports as per HPI Psychiatric Psychiatric: Reports systems reviewed and no addt'l complaints, except as documented Endocrine Endocrinology: Reports as per HPI Hematologic/Lymphatic Hematologic/Lymphatic: Reports systems reviewed and no addt'l complaints, except as documented Allergic/Immunologic Allergic/Immunologic: Reports systems reviewed and no addt'l complaints, except as documented Physical Exam Const alert and oriented x3 HEENT normocephalic Eyes EOMs intact bilaterally Neck no carotid bruits Chest inspection of chest normal Resp normal respiratory effort and clear to auscultation bilaterally Cardio Cardio Narrative: Distant heart tones Rate: bradycardia Rhythm: regular rhythm Heart Sounds: S1 normal and S2 normal; Negative for click, gallop or murmur Extremity General Extremity: edema bilateral lower extremity Details: trace Skin Skin Narrative: Erythematous petechial appearing rash on the back of the hands. Neuro Neuro Narrative: Alert and oriented x 3. Psych mental status grossly normal Risk Stratification Risk Stratification Applicable: No Charges/Coding Visit Charges Inpatient E&M: 91132 Init Hosp L3 Objective Data Vital Signs: Vital Signs Temp Pulse Resp BP Pulse Ox O2 Del Method O2 Flow Rate 98.1 F 63 16 139/64 H 100 Room Air 2 01/22/25 03:00 01/22/25 07:32 01/22/25 07:32 01/22/25 06:00 01/22/25 07:32 01/22/25 07:32 01/21/25 06:00 FiO2 95 01/20/25 16:00 Oxygen Flow Rate (L/min) 2 Oxygen Delivery Method Room Air Weight: 218 lb 7.649 oz Body Mass Index (BMI) 35.2 Intake & Output: Intake and Output for Last 24 Hours 01/20/25 01/21/25 01/22/25 23:59 23:59 23:59 Intake Total 2052.33 / 2052.33 2090 / 2090 Output Total 1100 / 1100 2250 / 2250 750 / 750 Balance 952.33 / 952.33 -160 / -160 -750 / -750 Lab / Micro Data Attestation: I reviewed the patient's lab results. 01/22/25 03:34 01/22/25 03:34 Labs: Laboratory Results - last 24 hr 01/21/25 08:41: POC Glucose 148 H 01/21/25 12:47: POC Glucose 159 H 01/21/25 17:39: POC Glucose 130 H 01/21/25 23:38: POC Glucose 169 H 01/22/25 03:34: WBC 6.8, RBC 2.93 L, Hgb 8.8 L, Hct 27.5 L, MCV 93.9, MCH 30.0, MCHC 32.0, RDW Std Deviation 49.5 H, RDW Coeff of He 14.4, Plt Count 216, MPV 11.1, Immature Gran % (Auto) 0.600, Neut % (Auto) 61.9, Lymph % (Auto) 25.3, [place] % (Auto) 9.1, Eos % (Auto) 2.5, Baso % (Auto) 0.6, Absolute Neuts (auto) Not Reportable, Sodium 132 L, Potassium 4.5, Chloride 99, Carbon Dioxide 22.8, Anion Gap 10, BUN 11, Creatinine 0.68 L, Estim Creat Clear Calc 107.08, Est GFR (MDRD) Non-Af 101, BUN/Creatinine Ratio 16.1, Glucose 131 H, Calcium 8.6, Total Bilirubin < 0.15, AST 18, ALT 16, Alkaline Phosphatase 101, Total Protein 6.0, Albumin 3.7, Globulin 2.4, Albumin/Globulin Ratio 1.5 Rhythm Strip Rhythm Strip: Sinus Rhythm Rate: 65 Cardiology Labs/Tests 01/22/25 03:34: WBC 6.8, RBC 2.93 L, Hgb 8.8 L, Hct 27.5 L, MCV 93.9, MCH 30.0, MCHC 32.0, Plt Count 216, MPV 11.1, Immature Gran % (Auto) 0.600, Neut % (Auto) 61.9, Lymph % (Auto) 25.3, [place] % (Auto) 9.1, Eos % (Auto) 2.5, Baso % (Auto) 0.6, Absolute Neuts (auto) Not Reportable, Sodium 132 L, Potassium 4.5, Chloride 99, Carbon Dioxide 22.8, Anion Gap 10, BUN 11, Creatinine 0.68 L, Est GFR (MDRD) Non-Af 101, BUN/Creatinine Ratio 16.1, Glucose 131 H, Calcium 8.6, Total Bilirubin < 0.15 Rhythm: EKG: ECHO: Stress Test: Cardiac Cath: PCI: CT Surgery: Holter monitor: EPS: PPM: CXR: Chest CT Scan:
[2025-01-22] MEDS: levETIRAcetam IV 500 MG in 0.9% Normal Saline (100mL Bag) 100 ML 420 MG IV (10:01)
[2025-01-22] MEDS: Lactobacillis Acidophilus 1 CAP PO (10:13)
[2025-01-22] MEDS: Insulin Glargine-YFGN 100 UNIT/ML Pen 30 UNIT SC (10:14)
--- NOTE | 2025-01-22 11:05 | PN.RENAL_ITS ---
Subjective Subjective Sitting up in bed. No overnight events. Denies any vomiting. States appetite fair. Objective Data Objective Data Vital Signs: Vital Signs Temp Pulse Resp BP Pulse Ox O2 Del Method O2 Flow Rate 97.9 F 69 12 140/56 H 98 Room Air 2 01/22/25 09:00 01/22/25 10:00 01/22/25 10:00 01/22/25 10:00 01/22/25 10:00 01/22/25 10:00 01/21/25 06:00 FiO2 95 01/20/25 16:00 Oxygen Flow Rate (L/min) 2 Oxygen Delivery Method Room Air Weight: 99.1 kg Body Mass Index (BMI) 35.2 Intake & Output: Intake and Output for Last 24 Hours 01/20/25 01/21/25 01/22/25 23:59 23:59 23:59 Intake Total 2052.33 / 2052.33 2090 / 2090 105 / 105 Output Total 1100 / 1100 2250 / 2250 750 / 750 Balance 952.33 / 952.33 -160 / -160 -645 / -645 Lab / Micro Data 01/22/25 03:34 01/22/25 03:34 Labs: Laboratory Results - last 24 hr 01/21/25 12:47: POC Glucose 159 H 01/21/25 17:39: POC Glucose 130 H 01/21/25 23:38: POC Glucose 169 H 01/22/25 03:34: WBC 6.8, RBC 2.93 L, Hgb 8.8 L, Hct 27.5 L, MCV 93.9, MCH 30.0, MCHC 32.0, RDW Std Deviation 49.5 H, RDW Coeff of He 14.4, Plt Count 216, MPV 11.1, Immature Gran % (Auto) 0.600, Neut % (Auto) 61.9, Lymph % (Auto) 25.3, [place] % (Auto) 9.1, Eos % (Auto) 2.5, Baso % (Auto) 0.6, Absolute Neuts (auto) Not Reportable, Sodium 132 L, Potassium 4.5, Chloride 99, Carbon Dioxide 22.8, Anion Gap 10, BUN 11, Creatinine 0.68 L, Estim Creat Clear Calc 107.08, Est GFR (MDRD) Non-Af 101, BUN/Creatinine Ratio 16.1, Glucose 131 H, Calcium 8.6, Total Bilirubin < 0.15, AST 18, ALT 16, Alkaline Phosphatase 101, Total Protein 6.0, Albumin 3.7, Globulin 2.4, Albumin/Globulin Ratio 1.5 Rhythm Strip Rhythm Strip: Sinus Rhythm Rate: 65 Physical Exam Narrative Alert and oriented x 3, no apparent distress S1, S2, RRR Lungs sound clear Abdomen soft, rounded, nontender No edema Assessment & Plan Assessment/Plan (1) Acute hyponatremia: PLAN: - Acute hyponatremia. Baseline serum sodium normal. Serum sodium 121 on admission (01/19), today sodium 132. Combination of slight SIADH and increased oral fluid intake. Her sodium is normalizing with fluid restriction only. Volume status appears compensated. Urine osmol 308, urine sodium 32, TSH 1.4, albumin 3.7, discussed with patient today importance of restricting fluids, currently on 1.5L FR, recommend to continue. Labs ordered for am. Assessment and plan reviewed with Dr. Samano.
--- NOTE | 2025-01-22 11:31 | NEURO.CONS ---
Assessment and Plan: Neuro Assessment/Plan FAM VINSON is a 59 F with a past medical history of seizures, chronic migraines, neuropathy, being evaluated by Teleneurology for breakthrough seizure and possible side effects of medications causing some medical problems. Unlikely that her ASMs are causing his bradyrhythmias but may be have led to some hyponatremia. Her seizure frequency not clearly well controlled on her current regiment and unclear how each medication has significantly improved the seizure frequency. Recommend the following changes: Plan: - continue the following ASM: - topiramate 25mg BID (currently on a wean for that (is supposed to be on topiramate 25mg daily starting next week) - xcopri 200mg AM - carbamazepine 200mg/200mg/300mg - recommend weaning off the carbamazepine d/t the hyponatremia but unlikely that carbamazepine is causing bradyarrhythmias as this is a very uncommon side effect of the medication - decrease carbamazepine to 200mg TID for now, defer remainder of wean to outpatient Neurology - recommend starting a new ASM with the following considerations: - would normally transition patient to Vimpat, however given the concern for bradycardia, the potential for increased NV interval with Vimpat, this would not be an appropriate choice unless his underlying bradyrrythmias can be addressed - can consider starting 500mg BID Keppra, however in larger doses can cause of exacerbate underlying bradycardia - increase Xcopri to 150mg BID Recommend looking for other causes for bradyrhythmias than her ASMs as the side effects of the medications rarely cause these side effects. I personally attended this patient and spent a total time of 45minutes evaluating this patient including clinical assessment, review of chart, medical history imaging, and determining appropriate treatment and workup. HPI Consult Data Date of Consult: 01/23/25 HPI Narrative HPI Narrative: The patient is a 58 y/o F w/ PMHx: Chronic anemia, Ongoing evaluation for Possible MS, Chronic migraines, Seizure disorder, Obesity, HTN, HLD, Orthostasis on midodrine, Psoriasis, Diabetes mellitus type II w/ neuropathy, Anxiety and Depression, Chronic migraines, Allergic rhinitis, Former tobacco use, Chronic pain syndrome on chronic narcotic regimen, Chronic bradycardia who presents to the [facility] ED on 01/19/2025 with history of mechanical fall with seizure with reported PCP visit on day of presentation and unfortunately following this visit ended up having a seizure witnessed potentially by her sister who called EMS with per phone patient noted that the patient had actually been at the lab to obtain a urine drug screen because the pain management medications for her back and was there from 6 to 10 AM however she was apparently unable to urinate often only able to urinate at home with her sister driving her home to urinate and get sample however in the car she had an emesis bout became very weak and slid down the side of the car with no trauma to the head however she eventually laid her on the ground and while they were waiting for EMS she had a witnessed seizure involving clenching of both her arm and legs lasting about a minute reportedly similar to her previous seizures. Acute hyponatremia. Baseline serum sodium normal. Serum sodium 121 on admission (01/19), today sodium 132 Neurologic History Patient currently feels very short of bed and very hot. Pt states she had 2 seizures, has a seizure history for last 20 years. Her last one before this one was in 3 months prior. She normally does not have a prodrome. Per sister, her current seizure was different than at home are different. During this event at PCP, she had shaking in arms and legs and was passed out during. She denies biting tongue this time, losing control of bowel or bladders. She woke up in the ambulance with tingling in the R arm which continues to persist. Unclear if she has a history of MS or white matter disease. She is not currently diagnosed with MS and not on DMT for it. She has not had clear MS flares in the past. For her ASM, she is on the following: - currently on Keppra for breakthrough - gabapentin - topiramate 25mg BID (currently on a wean for that (is supposed to be on topiramate 25mg daily starting next week) - xcopri 200mg AM - carbamazepine 200mg/200mg/300mg Patient has also had episodes of bradycardia - per cardiology concern that ASM is contributing to the bradycardia. Has known bradycardia and pt states she has had it for the last 6-8 months. Has been on Tegretol for a very long time, been on xcopri since June but had it before being on Xcopri. She has always had 2 seizures a year. She she first started ASMs she was on VPA but it caused hyponatremia as well. Neurologic Exam: -? General: Laying comfortably in bed; in no acute distress. -? HENT: Normal oropharynx and mucosa. Normal external appearance of ears and nose. Exophthalmos. -? Neck: Supple, no pain or tenderness -? CV:? No peripheral edema. -? Pulmonary:? Normal respiratory effort. -? Ext: No cyanosis, edema, or deformity -? Skin: No rash. Normal palpation of skin.? -? Musculoskeletal: full range of motion; no joint tenderness. Normal digits and nails by inspection. No clubbing. -? NEURO: -? Mental Status: The patient was alert and oriented to time, place, and person. Normal recent/remote memory, concentration, and general fund of knowledge. -? Language: speech is clear.? Naming, repetition, fluency, and comprehension intact. -? Cranial Nerves: pupils are 5mm and nonreactive.. EOMI, visual mcintosh full, no facial asymmetry, facial sensation diminished to RV1 but intact in V2 and 3t, hearing intact, tongue midline, no evidence of atrophy or fibrillations. -? Motor: normal bulk, tone, and strength throughout. No pronator drift or satelliting. Upper and lower extremities equal bilaterally. -? Detailed strength exam as performed by the nurse/FLYNN and witnessed by the physician: R L SA 5 5 EE EF 5 5 WE WF Writer Producer 5 5 HF 3 4 KE KF 4 5 DF PF -? Tone: is normal and bulk is normal -? Sensation- no feeling to LT below knees, diminished on the R thigh -? Coordination: No dysmetria on [id number], finger follow finger or [id number]. -? Gait- deferred [facility] Medical History (Updated 01/22/25 @ 09:[address] Pelon Valero MD) Bradycardia Diabetes mellitus, type 2 Gastroenteritis COVID-19 virus infection Multiple sclerosis Demyelinating disease of central nervous system Epilepsy Generalized weakness Recurrent falls Recurrent syncope Anxiety Depression COPD (chronic obstructive pulmonary disease) Migraines Multiple falls History of CVA (cerebrovascular accident) GERD (gastroesophageal reflux disease) Obesity Former tobacco use Seizure disorder Allergic rhinitis Chronic migraine Orthostasis HTN (hypertension) Psoriasis Hypercholesterolemia Home Medications ?Medication ?Instructions ?Recorded ?Last Taken ?Type albuterol sulfate 90 mcg/actuation 2 puff inhalation Q4H PRN Wheezing 09/03/22 09/04/23 History aerosol inhaler insulin syr/ndl U100 half shirley 0.5 09/03/22 Unknown History mL 31 gauge x 5/16 (Droplet Insulin Syringe (half unit)) dextromethorphan 20 mg-quinidine 1 cap PO BID DEPRESSION 02/06/23 10/09/23 History 10 mg capsule (Nuedexta) insulin lispro 100 unit/mL 3 unit subcut .COMPLEX DIABETES 09/04/23 09/04/23 History subcutaneous solution meclizine 25 mg tablet 25 mg PO DAILY PRN vertigo 09/04/23 09/04/23 History nystatin 100,000 unit/gram topical 1 applic topical BID RASH 09/04/23 10/09/23 History powder ([facility]) lorazepam 0.5 mg tablet 0.5 mg PO QHS PRN Anxiety 10/09/23 Unknown History Lactobacillus rhamnosus GG 10 1 cap PO DAILY recurrent uti 05/09/24 Unknown History billion cell capsule (Culturelle) ascorbic acid (vitamin C) 500 mg 500 mg PO QDAY see pcp 05/09/24 Unknown History tablet cranberry fruit 450 mg tablet 450 mg PO TID see pcp 05/09/24 Unknown History duloxetine 60 mg capsule,delayed 60 mg PO QDAY mental health 05/09/24 Unknown History release hydrocodone-acetaminophen 5-325mg 1 tab PO BID pain 09/11/24 Unknown History 5mg-325mg atorvastatin 80 mg tablet 80 mg PO QHS cholesterol #90 tabs 10/30/24 Unknown Rx cephalexin 250 mg capsule 250 mg PO QHS recurrent UTI #90 10/30/24 Unknown Rx caps flash glucose scanning reader #1 ea 10/30/24 Unknown Rx (FreeStyle Es 2 [place]) flash glucose sensor (FreeStyle #3 ea 10/30/24 Unknown Rx Es 2 Sensor kit) insulin glargine 100 unit/mL (3 20 unit subcut QAM diabetes 11/09/24 Unknown History mL) subcutaneous pen handicap placard #1 ea 11/15/24 Unknown Rx fluticasone furoate 200 1 inh inhalation DAILY copd #30 ea 11/20/24 Unknown Rx mcg/actuation blister powder for inhalation (Arnuity Ellipta) mirtazapine 15 mg tablet 30 mg PO QHS sleep 12/14/24 Unknown History omeprazole 40 mg capsule,delayed 40 mg PO DAILY GERD #90 caps 01/03/25 Unknown Rx release cenobamate 200 mg tablet (Xcopri) 200 mg PO QDAY #30 tabs 01/08/25 Unknown Rx gabapentin 800 mg tablet 800 mg PO QHS nerve pain #30 tabs 01/08/25 Unknown Rx ibuprofen 600 mg tablet 600 mg PO TID PRN headache/pain 01/08/25 Unknown Rx #90 tabs levocarnitine 330 mg tablet 330 mg PO BID elevated ammonia #60 01/08/25 Unknown Rx tabs promethazine 12.5 mg tablet 12.5 mg PO TID PRN nausea and 01/08/25 Unknown Rx vomiting #90 tabs ubrogepant 100 mg tablet (Ubrelvy) 100 mg PO .COMPLEX MIGRAINE #14 01/08/25 Unknown Rx tabs carbamazepine 200 mg tablet 200 mg PO BID seizures 01/19/25 Unknown History (Tegretol) carbamazepine 300 mg 300 mg PO QHS seizures 01/19/25 Unknown History capsule,extended release [id number] diphenhydramine HCl 25 mg capsule 50 mg PO QHS sleep 01/19/25 Unknown History (Allergy (diphenhydramine)) gabapentin 300 mg capsule 300 mg PO BID pain 01/19/25 Unknown History galcanezumab-gnlm 120 mg/mL 120 mg subcut QMONTH migraines 01/19/25 Unknown History subcutaneous pen injector (Emgality Pen) hydroxyzine HCl 25 mg tablet 50 mg PO QHS sleep 01/19/25 Unknown History melatonin 10 mg capsule 10 mg PO QHS sleep 01/19/25 Unknown History semaglutide 0.25 mg or 0.5 mg (2 0.25 mg subcut QWEEK diabetes 01/19/25 Unknown History mg/3 mL) subcutaneous pen injector (Ozempic) tizanidine 2 mg tablet 2 mg PO TID for muscle spasm 01/19/25 Unknown History topiramate 25 mg tablet 25 mg PO BID seizures 01/19/25 Unknown History Allergy/AdvReac Type Severity Reaction Status Date / Time adhesive tape Allergy Intermediate Rash Verified 01/08/25 08:39 latex Allergy Rash Verified 01/08/25 08:39 levofloxacin (From Levaquin) Allergy Hives Verified 01/08/25 08:39 ondansetron (From Zofran) Allergy Hives Verified 01/08/25 08:39 nalbuphine (From Nubain) AdvReac Other Verified 01/08/25 08:39 Family History Father Hypertension Hyperlipidemia Asthma Colon cancer Mother Cancer lung Aunt Breast cancer Aunt Breast cancer Grandmother Cancer ovarian Grandfather Cancer prostate Grandmother Cancer Uncle Hypertension Aunt Hypertension Sister Hypertension Asthma Surgical History History of appendectomy Hx of tubal ligation Hx of tonsillectomy Hx of cholecystectomy Social History household members: none 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 Smoking Status: Former smoker quit date: 07/12/21 pack-years: 10 alcohol intake: never substance use type: does not use do you feel safe at home: Yes Vital Signs Vital Signs Vital Signs: 01/21/25 12:59 01/21/25 19:00 01/21/25 19:00 Temperature Temperature Source Pulse Rate 54 L 56 L 55 L Pulse Strength Respiratory Rate 10 L 15 Respiratory Effort Respiratory Depth Respiratory Pattern Normal Blood Pressure 126/68 H Blood Pressure Mean 87 Blood Pressure Source Monitor Blood Pressure Position Semi-Fowlers Blood Pressure Location Right Arm Pulse Ox 100 Oxygen Delivery Method Room Air Oxygen Flow Rate (L/min) 01/21/25 19:02 01/21/25 19:02 01/21/25 20:00 Temperature 98.0 F Temperature Source Axillary Pulse Rate 55 L 56 L Pulse Strength Respiratory Rate 15 14 Respiratory Effort Respiratory Depth Respiratory Pattern Normal Blood Pressure 126/66 H Blood Pressure Mean 86 Blood Pressure Source Monitor Blood Pressure Position Semi-Fowlers Blood Pressure Location Right Arm Pulse Ox 100 98 Oxygen Delivery Method Room Air Room Air Oxygen Flow Rate (L/min) 01/21/25 20:00 01/21/25 21:00 01/21/25 21:49 Temperature 98.0 F Temperature Source Axillary Pulse Rate 80 Pulse Strength Normal (2+) Respiratory Rate 15 Respiratory Effort Normal Non-Labored Respiratory Depth Normal Respiratory Pattern Normal Blood Pressure 125/63 H Blood Pressure Mean 83 Blood Pressure Source Blood Pressure Position Blood Pressure Location Pulse Ox 95 Oxygen Delivery Method Room Air Room Air Oxygen Flow Rate (L/min) 01/21/25 22:00 01/21/25 23:00 01/21/25 23:00 Temperature Temperature Source Pulse Rate 74 72 75 Pulse Strength Respiratory Rate 13 15 Respiratory Effort Respiratory Depth Respiratory Pattern Blood Pressure 122/72 H 143/70 H Blood Pressure Mean 88 94 Blood Pressure Source Monitor Monitor Blood Pressure Position Semi-Fowlers Semi-Fowlers Blood Pressure Location Right Arm Right Arm Pulse Ox 96 96 Oxygen Delivery Method Room Air Room Air Oxygen Flow Rate (L/min) 01/21/25 23:50 01/22/25 00:00 01/22/25 01:00 Temperature 98.1 F Temperature Source Axillary Pulse Rate 74 69 Pulse Strength Respiratory Rate 17 13 Respiratory Effort Normal Non-Labored Respiratory Depth Normal Respiratory Pattern Normal Blood Pressure 145/62 H 129/67 H Blood Pressure Mean 89 87 Blood Pressure Source Monitor Monitor Blood Pressure Position Semi-Fowlers Semi-Fowlers Blood Pressure Location Right Arm Right Arm Pulse Ox 98 94 Oxygen Delivery Method Room Air Room Air Room Air Oxygen Flow Rate (L/min) 01/22/25 02:00 01/22/25 03:00 01/22/25 03:00 Temperature 98.1 F Temperature Source Axillary Pulse Rate 63 59 L 62 Pulse Strength Respiratory Rate 12 11 L Respiratory Effort Respiratory Depth Respiratory Pattern Blood Pressure 103/60 136/70 H Blood Pressure Mean 74 92 Blood Pressure Source Monitor Blood Pressure Position Semi-Fowlers Blood Pressure Location Right Arm Pulse Ox 94 7 Oxygen Delivery Method Room Air Room Air Oxygen Flow Rate (L/min) 01/22/25 03:58 01/22/25 04:00 01/22/25 05:00 Temperature Temperature Source Pulse Rate 61 64 Pulse Strength Respiratory Rate 12 12 Respiratory Effort Normal Non-Labored Respiratory Depth Normal Respiratory Pattern Normal Blood Pressure 157/75 H 159/69 H Blood Pressure Mean 102 99 Blood Pressure Source Monitor Monitor Blood Pressure Position Semi-Fowlers Semi-Fowlers Blood Pressure Location Right Arm Right Arm Pulse Ox 99 100 Oxygen Delivery Method Room Air Room Air Room Air Oxygen Flow Rate (L/min) 01/22/25 06:00 01/22/25 07:00 01/22/25 07:32 Temperature Temperature Source Pulse Rate 62 72 63 Pulse Strength Respiratory Rate 12 14 16 Respiratory Effort Respiratory Depth Respiratory Pattern Blood Pressure 139/64 H 171/103 H Blood Pressure Mean 89 125 Blood Pressure Source Monitor Monitor Blood Pressure Position Semi-Fowlers Semi-Fowlers Blood Pressure Location Right Arm Right Arm Pulse Ox 96 98 Oxygen Delivery Method Room Air Room Air Oxygen Flow Rate (L/min) 01/22/25 07:32 01/22/25 08:00 01/22/25 09:00 Temperature 97.9 F Temperature Source Temporal Pulse Rate 70 70 Pulse Strength Respiratory Rate 16 15 Respiratory Effort Respiratory Depth Respiratory Pattern Blood Pressure 164/76 H 148/59 H Blood Pressure Mean 105 88 Blood Pressure Source Monitor Monitor Blood Pressure Position Semi-Fowlers Semi-Fowlers Blood Pressure Location Right Arm Right Arm Pulse Ox 100 98 96 Oxygen Delivery Method Room Air Room Air Room Air Oxygen Flow Rate (L/min) 01/22/25 10:00 01/22/25 11:00 Temperature Temperature Source Pulse Rate 69 44 L Pulse Strength Respiratory Rate 12 15 Respiratory Effort Respiratory Depth Respiratory Pattern Blood Pressure 140/56 H 140/56 H Blood Pressure Mean 84 84 Blood Pressure Source Monitor Monitor Blood Pressure Position Semi-Fowlers Semi-Fowlers Blood Pressure Location Right Arm Right Arm Pulse Ox 98 100 Oxygen Delivery Method Room Air Nasal Cannula Oxygen Flow Rate (L/min) 3 Weight Weight: 99.1 kg Body Mass Index (BMI) 35.2 EEG Results Procedure Details EEG Procedure Details: FAM VINSON is a 59 year old F with a past medical history of , who presents for evaluation of Electroencephalogram on DATE at TIME Lab / Micro Data 01/22/25 03:34 01/22/25 03:34 Labs: Laboratory Results - last 24 hr 01/21/25 12:47: POC Glucose 159 H 01/21/25 17:39: POC Glucose 130 H 01/21/25 23:38: POC Glucose 169 H 01/22/25 03:34: WBC 6.8, RBC 2.93 L, Hgb 8.8 L, Hct 27.5 L, MCV 93.9, MCH 30.0, MCHC 32.0, RDW Std Deviation 49.5 H, RDW Coeff of He 14.4, Plt Count 216, MPV 11.1, Immature Gran % (Auto) 0.600, Neut % (Auto) 61.9, Lymph % (Auto) 25.3, [place] % (Auto) 9.1, Eos % (Auto) 2.5, Baso % (Auto) 0.6, Absolute Neuts (auto) Not Reportable, Sodium 132 L, Potassium 4.5, Chloride 99, Carbon Dioxide 22.8, Anion Gap 10, BUN 11, Creatinine 0.68 L, Estim Creat Clear Calc 107.08, Est GFR (MDRD) Non-Af 101, BUN/Creatinine Ratio 16.1, Glucose 131 H, Calcium 8.6, Total Bilirubin < 0.15, AST 18, ALT 16, Alkaline Phosphatase 101, Total Protein 6.0, Albumin 3.7, Globulin 2.4, Albumin/Globulin Ratio 1.5 Rhythm Strip Rhythm Strip: Sinus Rhythm Rate: 65 Active Medications Active Medications Active Medications: Current Medications Generic Name Dose Route Start Last Admin Trade Name Freq PRN Reason Stop Dose Admin Acetaminophen 650 mg 01/19/25 16:40 01/21/25 20:09 Acetaminophen 325 Mg Tablet PO 650 mg Q4H PRN PRN Administration Fever, pain 1-04/20 Hydrocodone Bitart/Acetaminophen 1 tablet 01/21/25 20:00 01/22/25 08:55 Hydrocodone Bitartrate/Apap 5/325 Tablet PO 1 tablet Q12H ELICIA Administration Al Hydroxide/Mg Hydroxide 30 ml 01/19/25 16:40 Mag Hydrox/Al Hydrox/Simeth 30 Ml Udc PO Q6H PRN PRN Gastric Burning Albuterol Sulfate 2.5 mg 01/19/25 16:40 Albuterol 2.5 Mg/3 Ml Vial.Neb. INHALATION Q2H PRN PRN Dyspnea, wheezing Albuterol/Ipratropium 3 ml 01/19/25 16:40 01/22/25 07:32 Ipratropium/Albuterol Sulfate 3 Ml Ampul.Neb INHALATION 3 ml Q6HWA.RT ELICIA Administration Aspirin 81 mg 01/20/25 08:00 01/22/25 08:55 Aspirin 81 Mg Tab.Chew PO 81 mg BREAKFAST ELICIA Administration Atorvastatin Calcium 80 mg 01/19/25 22:00 01/21/25 23:30 Atorvastatin Calcium 80 Mg Tablet PO 80 mg QHS ELICIA Administration Atropine Sulfate 1 mg 01/21/25 12:25 01/21/25 16:23 Atropine Sulfate 1 Mg/10 Ml Syringe IV 1 mg PRN PRN Administration rod Hector MD of use. Budesonide 0.5 mg 01/19/25 21:30 01/22/25 07:32 Budesonide Respules 0.5 Mg/2 Ml Ampul.Neb. INHALATION 0.5 mg Q12H.RT ELICIA Administration Calamine/Phenol 1 applic 01/19/25 18:00 01/22/25 10:14 Menthol/Lanolin/Calamine/Znox 113 Gm Tube TOPICAL Not Given 4X/DAY ELICIA Protocol Carbamazepine 200 mg 01/20/25 10:00 01/21/25 15:30 Carbamazepine 200 Mg Tablet PO Not Given 1000,1500 ELICIA Carbamazepine 300 mg 01/19/25 22:00 01/21/25 23:33 Carbamazepine 200 Mg Tablet PO 300 mg 2200 ELICIA Administration Cenobamate 200 mg 01/20/25 10:00 01/21/25 09:05 Cenobamate 200 Mg Tablet PO 200 mg DAILY ELICIA Administration Enoxaparin Sodium 40 mg 01/20/25 10:00 01/22/25 10:15 Enoxaparin 40 Mg/0.4 Ml Syringe SC 40 mg DAILY ELICIA Administration Gabapentin 800 mg 01/19/25 22:00 01/21/25 22:09 Gabapentin 800 Mg Tablet PO 800 mg QHS ELICIA Administration Gabapentin 300 mg 01/21/25 16:00 01/21/25 16:48 Gabapentin 300 Mg Capsule PO Not Given 1100,1600 ELICIA Glucagon 1 mg 01/19/25 16:40 Glucagon 1 Mg/Ml Syringe IM X1 PRN HYPOGLYCEMIA Protocol Guaifenesin 10 ml 01/19/25 16:40 Guaifenesin 10 Ml Udc (200mg/10ml) PO Q4H PRN PRN COUGH Hydralazine HCl 10 mg 01/19/25 16:40 Hydralazine 20 Mg/Ml Vial IV Q4H PRN PRN SBP > 160 Protocol Sodium Chloride 250 mls @ 15 mls/hr 01/19/25 16:16 IV .[id number] PRN Saline Flush Sodium Chloride 250 mls @ 15 mls/hr 01/19/25 16:16 IV .[id number] PRN Additional IVPB Infusion Levetiracetam 500 mg/ Sodium 105 mls @ 420 mls/hr 01/19/25 22:00 01/22/25 10:27 Chloride IV Infused Q12 ELICIA Infusion Dextrose 250 mls @ 0 mls/hr 01/19/25 16:40 Dextrose 10%-Water IV .Q0M PRN HYPOGLYCEMIA Protocol As Directed Ibuprofen 600 mg 01/19/25 20:44 01/21/25 17:46 Ibuprofen 600 Mg Tablet PO 600 mg TID PRN Administration HEADACHE/PAIN 1-10 Insulin Glargine 30 unit 01/20/25 10:00 01/22/25 10:14 Insulin Glargine-Yfgn 100 Unit/Ml Pen SC 30 unit QAM ELICIA Administration Insulin Human Lispro 0 unit 01/19/25 22:00 01/22/25 08:12 Insulin Lispro 100 Unit/Ml Insuln.Pen SC Not Given ACHS ELICIA Protocol Levocarnitine 330 mg 01/19/25 22:00 01/22/25 10:12 Levocarnitine 330 Mg Tablet PO 330 mg BID ELICIA Administration Loratadine 10 mg 01/20/25 22:05 01/21/25 23:30 Loratadine 10 Mg Tablet PO 10 mg QHS ELICIA Administration Lorazepam 1 mg 01/20/25 08:03 Lorazepam 2 Mg/Ml Wch Syringe IV X1 PRN SEIZURES Meclizine HCl 25 mg 01/19/25 20:40 Meclizine Hcl 25 Mg Tablet PO BID PRN PRN DIZZINESS Melatonin 10 mg 01/19/25 22:00 01/21/25 23:30 Melatonin 10 Mg Tablet PO 10 mg QHS ELICIA Administration Nystatin 1 applic 01/19/25 22:00 01/22/25 10:15 Nystatin Powder 15gm Bottle TOPICAL 1 applic BID ELICIA Administration Protocol Pantoprazole Sodium 40 mg 01/20/25 10:00 01/22/25 10:15 Pantoprazole Sodium 40 Mg Tablet PO 40 mg DAILY ELICIA Administration Promethazine HCl 12.5 mg 01/19/25 20:57 01/22/25 10:10 Promethazine 25 Mg Tablet PO 12.5 mg TID PRN Administration nausea and vomiting Senna/Docusate Sodium 2 tablet 01/19/25 16:40 01/21/25 20:09 Senna/Docusate Sodium 1 Tablet PO 2 tablet BID PRN PRN Administration Constipation Sodium Chloride 10 - 40 ml 01/19/25 16:16 01/21/25 16:24 0.9% Saline Lock 10 Ml Syringe IV 20 ml UD PRN Administration SALINE FLUSH Tizanidine HCl 2 mg 01/19/25 20:40 01/21/25 22:07 Tizanidine Hcl 2 Mg Tablet PO 2 mg TID PRN PRN Administration MUSCLE SPASM Topiramate 25 mg 01/19/25 22:00 01/21/25 23:32 Topiramate 25 Mg Tablet PO 25 mg 1500,2200 ELICIA Administration
--- NOTE | 2025-01-22 12:05 | NURSING ---
Neurology consultation in progress, Dr. Lebron.
[2025-01-22] MEDS: CENOBAMATE 200 MG TABLET PO (12:43)
--- NOTE | 2025-01-22 14:36 | CHAPLAIN ---
Type of Pastoral Visit _x__ Initial Visit ___ Follow-up Visit ___ On-call Visit ___ General Patient Visit ___ Spiritual Assessment ___ Family Conference ___ Bereavement ___ Rapid Response ___ Code Blue ___ Other (describe below) Pastoral Care Referral From _x__ Patient ___ Family ___ Nurse ___ Physician ___ Move Coordinator ___ Overlock Waistline Joiner ___ Other (describe below) Sacrament/Intervention _x__ Active listening ___ Anointing ___ Jainism ___ Bereavement ___ Communion _x__ Lisa exploration ___ ___ Life review _x__ Prayer ___ Reconciliation ___ Sacrament of Sick _x__ Supportive presence ___ Wedding ___ Other (describe below) Pastoral Comments patient gives updates on her health and reason for this admission; pt affirms her lisa in God and that she prays often for her situation and needs; pt refers to her mother's teaching about God and how that has helped her in life; pt has a sister that she lives with and is her POA; pt acknowledges that she has good things as well in her life; pt welcomes presence and prayer; visit ended as prayer was given due to telehealth visit with neurologist;
[2025-01-22] MEDS: MELATONIN 10 MG TABLET PO (22:02)
--- NOTE | 2025-01-22 22:24 | NURSING ---
2021- this RN reached out to Dr. Fitch to discuss patient's medication regiment. Informed Dr. Fitch that patient is on multiple seizure meds along w/ narcotics and gabapentin. Patient had been waiting on neurology and cardiology to see her as patient has been bradying down into the 30-40's and there was concern that her anti-seizure meds were the issue. Dr. Valero, the inspector and mender, wrote in his note that he would leave the medication regime to the neurologist and the neurologist Dr. Lebron, hadn't completed her note after seeing patient and there was only a draft note w/ no recommendations in for 1100am 01/22. I voiced my concern that I was uncomfortable giving all the meds listed as [facility] that the [facility]ist had planned to put in orders to hold certain medications that could be causing the bradycardia. Was advised at this time to attempt to reach out to tele neuro and discuss with them 2028- This RN messaged Dr. Lebron, the neurologist, through text and asked her to call [facility] regarding the patient. No message returned. 2044- [facility] line called by this RN with request to speak to the electronics teacher neurologist. I spoke with Kaitlin, the triaging staff. Informed her the patient was seen by Dr. Lebron today but no note had been completed and I needed to speak with either her or whoever was electronics teacher. Kaitlin informed this RN that the electronics teacher neurologists usually like to speak provider to provider and not with nursing staff, she was unable to tell me why this is. Informed Kaitlin that i was directed by our hospitalist to speak with the neurologist. Kaitlin informed me that they typically do not page the neurologists to the floors but she would attempt to have Dr. Shah call and speak to me. 2122- Dr. Lebron called this unit to speak to this RN. Dr. Lebron stated that she had informed Dr. Zacarias of her recommendations. This RN informed her that there were no changes made to the medications and nothing was written in regards to medication regime. Dr. Lebron stated she was going to start making changes to medications tomorrow, she would be decreasing Tegretol to 200mg TID vs the 200,200,300mg dose she is on now. I asked Dr. Lebron if she would like the Tegretol held tonight since that seemed to be one that was concerning for bradycardia, she stated to hold the IV keppra. Dr. Lebron stated to this RN that no changes she makes with the seizure meds will make her cardiac situation better. Other than the order to hold IV keppra tonight, no new orders given and this RN given ok to give all PM meds tonight. This RN notified patient and patient's sister.
[2025-01-23] VITALS (28 sets, daily range): BP systolic 108–179; BP diastolic 48–117; PULSE 50–82; RESP 8–20; TEMP 36.6–36.7; O2SAT 91–100; BMI 33.3
[2025-01-23] MEDS: 0.9% Saline Lock 10 ML Syringe IV ×2 (02:10→21:25)
[2025-01-23 05:57] LABS: Hematocrit 31.2 % (37-47); Hemoglobin 10.3 g/dL (12.0-15.0); Immature Granulocytes Count 0.040 X10^3/uL (0.0-0.0); Mean Corp Hgb Conc 33.0 g/dL (32-36); Mean Corpuscular Volume 92.9 fL (81-99); Mean Platelet Vol. 10.2 fl (6.2-12.0); NRBC Flagged by Analyzer 0 % (0-5); Platelet Count 235 K/mm3 (150-450); RBC Distribution Width CV 14.6 % (11.6-14.6); RBC Distribution Width SD 49.2 fl (35.1-43.9); Red Blood Count 3.36 M/mm3 (4.2-5.4); White Blood Count 9.9 K/mm3 (4.4-11.0)
[2025-01-23 06:13] LABS: Anion Gap 12 (5-15); BUN 12 mg/dL (4-19); BUN/Creat Ratio 20.3 RATIO (10-20); Calcium,Total 9.2 mg/dL (7.6-11.0); Carbon Dioxide 22.5 mmol/L (21.0-32.0); Chloride 102 mmol/L (98-108); Estimated Creatinine Clearance 119.87 ml/min (50-250); Glucose 180 mg/dL (70-99); Magnesium 1.7 mg/dL (1.5-2.2); Potassium 4.1 mmol/L (3.3-5.1)
[2025-01-23] MEDS: Budesonide Respules 0.5 MG/2 ML AMPUL.NEB. INHALATION ×2 (06:38→19:50)
--- NOTE | 2025-01-23 06:57 | PN.HOSP_ITS ---
Reason for Visit Chief Complaint: Seizure, fall. Subjective Subjective Patient seen, sodium levels have normalized. Patient was seen in consultation by neurology adjustment made to patient antiseizure medication. Per nursing staff patient continues to have episodic bradycardia with heart rates as low as 20 Objective Data Objective Data Vital Signs: Vital Signs Temp Pulse Resp BP Pulse Ox O2 Del Method O2 Flow Rate 98.1 F 70 15 127/59 H 97 Room Air 3 01/23/25 03:00 01/23/25 06:39 01/23/25 06:39 01/23/25 06:00 01/23/25 06:39 01/23/25 06:39 01/22/25 19:36 FiO2 95 01/20/25 16:00 Oxygen Flow Rate (L/min) 3 Oxygen Delivery Method Room Air Weight: 93.7 kg Body Mass Index (BMI) 33.3 Intake & Output: Intake and Output for Last 24 Hours 01/21/25 01/22/25 01/23/25 23:59 23:59 23:59 Intake Total 2090 / 2090 105 / 105 Output Total 2250 / 2250 3800 / 3800 1800 / 1800 Balance -160 / -160 -3695 / -3695 -1800 / -1800 Lab / Micro Data 01/23/25 05:44 01/23/25 05:44 Labs: Laboratory Results - last 24 hr 01/22/25 22:07: POC Glucose 144 H 01/23/25 05:44: WBC 9.9, RBC 3.36 L, Hgb 10.3 L, Hct 31.2 L, MCV 92.9, MCH 30.7, MCHC 33.0, RDW Std Deviation 49.2 H, RDW Coeff of He 14.6, Plt Count 235, MPV 10.2, Immature Gran % (Auto) 0.400, Neut % (Auto) 77.8 H, Lymph % (Auto) 12.3 L, [place] % (Auto) 7.1, Eos % (Auto) 2.0, Baso % (Auto) 0.4, Absolute Neuts (auto) 7.7, Absolute Lymphs (auto) 1.22, Nucleated RBC % 0, Sodium 136, Potassium 4.1, Chloride 102, Carbon Dioxide 22.5, Anion Gap 12, BUN 12, Creatinine 0.59 L, Estim Creat Clear Calc 119.87, Est GFR (MDRD) Non-Af 104, BUN/Creatinine Ratio 20.3 H, Glucose 180 H, Calcium 9.2, Phosphorus 5.2 H, Magnesium 1.7 Rhythm Strip Rhythm Strip: Sinus Rhythm Rate: 65 Physical Exam Narrative GENERAL: cooperative HEENT: Atraumatic; normocephalic EYES; Anicteric, Normal Conjunctiva NECK; supple, normal thyroid, RESPIRATORY: Diminished to auscultation CARDIOVASCULAR: Regular S1 S2, GI: soft, normoactive bowel sounds, : No Renal angle tenderness; EXTREMITIES: No edema, no clubbing, MUSCULOSKELETAL: no muscle wasting NEURO: Awake; no lateralizing signs. SKIN: No Rash PSYCH; Flat affect Assessment & Plan Assessment/Plan (1) Acute hyponatremia: (2) Seizure: PLAN: Plan Patient is a 59-year-old lady with history of seizure disorder, previous midbrain CVA with residual left-sided hemiplegia who presented to the emergency department after an apparent seizure episode. Patient was found to have significant hyponatremia. Admitted to the intensive care unit for further management 1. Seizure disorder ? With breakthrough seizure. Patient admitted to a monitored bed. Did continue patient home antiseizure medications EEG ordered and consultation placed to [facility] ? Patient was seen in consultation by [facility]; neurology recommended adjustment of patient antiseizure medications. 2.Mild hyponatremia ? Patient sodium level on admission was 121. Given patient presentation?seizures patient was placed on hypertonic saline which was later followed by fluid restriction. Patient's sodium level as of 01/22/2025 was 132 3. Marked bradycardia ?Patient monitored continuously. TSH obtained on admission came back within normal limits. Per patient she had undergone Holter monitoring by her primary cardiology on account of bradycardia and consideration has been given to possible pacemaker placement. Consult subsequently placed to cardiology ? 01/23/2025; patient was seen in consultation by cardiology review was that patient bradycardia may be secondary to her antiseizure medications dose of which has been adjusted by neuro 4. Class II obesity with BMI of 36 ? Complicating care weight loss advised 5. Diabetes mellitus type II -patient's oral hypoglycemics held. Placed on long acting insulin, Accu-Cheks a.c. and at bedtime and covered with sliding scale insulin 6. GERD ? On PPI 7. Chronic migraines ? Per history. Followed by neurology as outpatient 8. Possible Underlying MS/demyelinating disease ? Patient currently being evaluated by neurology as outpatient 9. History of previous midbrain CVA ? With residual left-sided hemiplegia requested for PT OT eval 10. Allergic rhinitis ? Patient is on fluticasone 11. DVT prophylaxis ? Subcu Lovenox Charges/Coding Visit Charges Inpatient E&M: 48399 Subs Hosp L2
--- NOTE | 2025-01-23 08:20 | PN.CARD_ITS ---
Subjective Subjective Patient resting comfortably in bed. Telemetry shows that since 1900 hrs. 01/22/2025 the patient's only had 2 short episodes of inconsequential sinus pauses. Both occurred while she was asleep at 0200 and over 0300 hours. The majority of her rhythm has been normal sinus at 65 to 70 bpm. On 01/23/2020 5 in the afternoon hours she did revert into a junctional rhythm in the 40-45 bpm range. When this initially started she felt a little lightheaded but then it resolved despite continuing in that rhythm. It converted to sinus rhythm spontaneously later in the evening and since 0 hrs. she had been in sinus rhythm. Objective Data Vital Signs: Vital Signs Temp Pulse Resp BP Pulse Ox O2 Del Method O2 Flow Rate 98.1 F 73 12 141/117 H 97 Room Air 3 01/23/25 03:00 01/23/25 07:00 01/23/25 07:00 01/23/25 07:00 01/23/25 07:00 01/23/25 07:00 01/22/25 19:36 FiO2 95 01/20/25 16:00 Oxygen Flow Rate (L/min) 3 Oxygen Delivery Method Room Air Weight: 206 lb 9.17 oz Body Mass Index (BMI) 33.3 Intake & Output: Intake and Output for Last 24 Hours 01/21/25 01/22/25 01/23/25 23:59 23:59 23:59 Intake Total 2090 / 2090 105 / 105 Output Total 2250 / 2250 3800 / 3800 1800 / 1800 Balance -160 / -160 -3695 / -3695 -1800 / -1800 Lab / Micro Data Attestation: I reviewed the patient's lab results. 01/23/25 05:44 01/23/25 05:44 Labs: Laboratory Results - last 24 hr 01/22/25 22:07: POC Glucose 144 H 01/23/25 05:44: WBC 9.9, RBC 3.36 L, Hgb 10.3 L, Hct 31.2 L, MCV 92.9, MCH 30.7, MCHC 33.0, RDW Std Deviation 49.2 H, RDW Coeff of He 14.6, Plt Count 235, MPV 10.2, Immature Gran % (Auto) 0.400, Neut % (Auto) 77.8 H, Lymph % (Auto) 12.3 L, [place] % (Auto) 7.1, Eos % (Auto) 2.0, Baso % (Auto) 0.4, Absolute Neuts (auto) 7.7, Absolute Lymphs (auto) 1.22, Nucleated RBC % 0, Sodium 136, Potassium 4.1, Chloride 102, Carbon Dioxide 22.5, Anion Gap 12, BUN 12, Creatinine 0.59 L, Estim Creat Clear Calc 119.87, Est GFR (MDRD) Non-Af 104, BUN/Creatinine Ratio 20.3 H, Glucose 180 H, Calcium 9.2, Phosphorus 5.2 H, Magnesium 1.7 01/23/25 07:53: POC Glucose 163 H Rhythm Strip Rhythm Strip: Sinus Rhythm Rate: 70 Cardiology Labs/Tests 01/23/25 05:44: WBC 9.9, RBC 3.36 L, Hgb 10.3 L, Hct 31.2 L, MCV 92.9, MCH 30.7, MCHC 33.0, Plt Count 235, MPV 10.2, Immature Gran % (Auto) 0.400, Neut % (Auto) 77.8 H, Lymph % (Auto) 12.3 L, [place] % (Auto) 7.1, Eos % (Auto) 2.0, Baso % (Auto) 0.4, Absolute Neuts (auto) 7.7, Nucleated RBC % 0, Sodium 136, Potassium 4.1, Chloride 102, Carbon Dioxide 22.5, Anion Gap 12, BUN 12, Creatinine 0.59 L, Est GFR (MDRD) Non-Af 104, BUN/Creatinine Ratio 20.3 H, Glucose 180 H, Calcium 9.2, Phosphorus 5.2 H, Magnesium 1.7 Rhythm: EKG: ECHO: Stress Test: Cardiac Cath: PCI: CT Surgery: Holter monitor: EPS: PPM: CXR: Chest CT Scan: Physical Exam Const alert and oriented x3 HEENT normocephalic Eyes EOMs intact bilaterally Chest inspection of chest normal Resp normal respiratory effort and clear to auscultation bilaterally Cardio Rate: regular rate Rhythm: regular rhythm Heart Sounds: S1 normal and S2 normal; Negative for click, gallop or murmur Neuro Neuro Narrative: Alert and oriented x 3 Psych mental status grossly normal Assessment & Plan Assessment/Plan (1) Bradycardia: PLAN: Patient had an episode of junctional rhythm yesterday afternoon where she did note some lightheadedness. There was no donte syncope or near syncope. Since that point in time the patient has remained in normal sinus rhythm at 70 bpm. She did have 2 episodes while sleeping with short sinus pauses. The patient's Keppra was held last evening. Neurology saw the patient and is to reevaluate medical therapy today. At this point in time the patient is not a candidate for pacemaker implantation. If we are unable to alter her medical regiment to avoid the bradycardia then we may have to reconsider pacemaker implantation. (2) Acute hyponatremia: PLAN: Patient sodium is now up to 136. (3) Epilepsy: QUALIFIERS: Epilepsy type: unspecified Intractability: not intractable Status epilepticus: without status epilepticus Qualified Code(s): G40.909 - Epilepsy, unspecified, not intractable, without status epilepticus PLAN: Neurology evaluated the patient by telemedicine yesterday and will see the patient by telemedicine today to determine additional medical changes. The IV Keppra was held last evening. PLAN: Plan 1. Await further recommendations from neurology on adjustments of medication to avoid bradycardia arrhythmia. 2. Will follow-up peripherally please call cardiology if further symptomatic bradycardia occurs. Charges/Coding Visit Charges Inpatient E&M: 32083 Subs Hosp L2
[2025-01-23] MEDS: HYDROcodone Bitartrate/Apap 5/325 Tablet PO ×2 (08:29→20:45)
--- NOTE | 2025-01-23 09:22 | CASEMGMT ---
Social Work- Pt has a migraine and is unable to meet at this time to complete directives. SW remains available to follow. DAIJA Archibald
[2025-01-23] MEDS: Lactobacillis Acidophilus 1 CAP PO (10:08)
[2025-01-23] MEDS: Insulin Glargine-YFGN 100 UNIT/ML Pen 30 UNIT SC (10:15)
[2025-01-23] MEDS: CENOBAMATE 200 MG TABLET PO (11:11)
--- NOTE | 2025-01-23 15:08 | PN.RENAL_ITS ---
Subjective Subjective no new events Objective Data Objective Data Vital Signs: Vital Signs Temp Pulse Resp BP Pulse Ox O2 Del Method O2 Flow Rate 98.0 F 53 L 13 109/70 95 Room Air 3 01/23/25 13:02 01/23/25 13:02 01/23/25 13:02 01/23/25 13:02 01/23/25 13:02 01/23/25 13:02 01/22/25 19:36 FiO2 95 01/20/25 16:00 Oxygen Flow Rate (L/min) 3 Oxygen Delivery Method Room Air Weight: 93.7 kg Body Mass Index (BMI) 33.3 Intake & Output: Intake and Output for Last 24 Hours 01/21/25 01/22/25 01/23/25 23:59 23:59 23:59 Intake Total 2090 / 2090 105 / 105 270 / 270 Output Total 2250 / 2250 3800 / 3800 4200 / 4200 Balance -160 / -160 -3695 / -3695 -3930 / -3930 Lab / Micro Data 01/23/25 05:44 01/23/25 05:44 Labs: Laboratory Results - last 24 hr 01/22/25 22:07: POC Glucose 144 H 01/23/25 05:44: WBC 9.9, RBC 3.36 L, Hgb 10.3 L, Hct 31.2 L, MCV 92.9, MCH 30.7, MCHC 33.0, RDW Std Deviation 49.2 H, RDW Coeff of He 14.6, Plt Count 235, MPV 10.2, Immature Gran % (Auto) 0.400, Neut % (Auto) 77.8 H, Lymph % (Auto) 12.3 L, [place] % (Auto) 7.1, Eos % (Auto) 2.0, Baso % (Auto) 0.4, Absolute Neuts (auto) 7.7, Absolute Lymphs (auto) 1.22, Nucleated RBC % 0, Sodium 136, Potassium 4.1, Chloride 102, Carbon Dioxide 22.5, Anion Gap 12, BUN 12, Creatinine 0.59 L, Estim Creat Clear Calc 119.87, Est GFR (MDRD) Non-Af 104, BUN/Creatinine Ratio 20.3 H, Glucose 180 H, Calcium 9.2, Phosphorus 5.2 H, Magnesium 1.7 01/23/25 07:53: POC Glucose 163 H 01/23/25 11:22: POC Glucose 163 H Rhythm Strip Rhythm Strip: Sinus Rhythm Rate: 70 Physical Exam Narrative Alert and oriented x 3, no apparent distress S1, S2, RRR Lungs sound clear Abdomen soft, rounded, nontender No edema Const alert, oriented x3 and no apparent distress General Appearance: well developed Orientation / Consciousness: oriented to person, oriented to place and oriented to time Nutritional Appearance: obese HEENT normocephalic Eyes no scleral icterus Neck no lymphadenopathy Resp no use of accessory muscles and clear to auscultation bilaterally Cardio regular rate Rate: bradycardia GI non-tender and non-distended Auscultation: normoactive bowel sounds Palpation: soft no CVA tenderness Skin no rashes or lesions noted Neuro Sensorium / Orientation: awake and alert Psych cooperative Assessment & Plan Assessment/Plan (1) Acute hyponatremia: PLAN: - Acute hyponatremia. Baseline serum sodium normal. Serum sodium 121 on admission (01/19), today sodium 132. Combination of slight SIADH and increased oral fluid intake. sodium normal now.
--- NOTE | 2025-01-23 15:55 | CASEMGMT ---
ENRIQUE CM to the pt room at this time to follow up on DC planning. Pt is currently sleeping in bed. CM to follow.
[2025-01-23] MEDS: MELATONIN 10 MG TABLET PO (21:20)
[2025-01-24] VITALS (10 sets, daily range): BP systolic 94–133; BP diastolic 56–92; PULSE 36–57; RESP 12–18; TEMP 36.3–36.9; O2SAT 98–100; BMI 33.7
--- NOTE | 2025-01-24 04:47 | NURSING ---
Pt had a steady hour of bradycardia ranging from 28 to mid 30s from [id number]. She was not symptomatic through the hour. This RN continued to check on her and converse with her during that time.
[2025-01-24 05:57] LABS: Hematocrit 29.6 % (37-47); Hemoglobin 9.8 g/dL (12.0-15.0); Immature Granulocytes Count 0.060 X10^3/uL (0.0-0.0); Mean Corp Hgb Conc 33.1 g/dL (32-36); Mean Corpuscular Volume 92.2 fL (81-99); Mean Platelet Vol. 10.4 fl (6.2-12.0); NRBC Flagged by Analyzer 0 % (0-5); Platelet Count 237 K/mm3 (150-450); RBC Distribution Width CV 14.6 % (11.6-14.6); RBC Distribution Width SD 49.5 fl (35.1-43.9); Red Blood Count 3.21 M/mm3 (4.2-5.4); White Blood Count 7.3 K/mm3 (4.4-11.0)
[2025-01-24 06:21] LABS: Anion Gap 11 (5-15); BUN 16 mg/dL (4-19); BUN/Creat Ratio 24.3 RATIO (10-20); Calcium,Total 8.9 mg/dL (7.6-11.0); Carbon Dioxide 22.8 mmol/L (21.0-32.0); Chloride 101 mmol/L (98-108); Estimated Creatinine Clearance 106.31 ml/min (50-250); Glucose 136 mg/dL (70-99); Potassium 4.4 mmol/L (3.3-5.1)
--- NOTE | 2025-01-24 08:40 | PCM.PN.CARD ---
Subjective Subjective Patient resting comfortably in the bed in recovery position. The patient has been in normal sinus rhythm most of the day on 01/23/2025. However since midnight she has been in a junctional rhythm around 40 bpm. This morning she complains of some mild lightheadedness but denies any syncopal or near syncopal spells. The patient's never had syncope despite this history of a junctional rhythm since back in September 2023. She also had a Holter monitor done December 2024 where the longest pause was 2 seconds and she was in junctional rhythm almost the entire monitoring timeframe. She had no symptoms with that rhythm during that timeframe. Neurology is still making adjustments with her medications. Objective Data Vital Signs: Vital Signs Temp Pulse Resp BP Pulse Ox O2 Del Method O2 Flow Rate 97.4 F L 56 L 15 133/65 H 98 Room Air 3 01/24/25 02:39 01/24/25 04:23 01/24/25 04:23 01/24/25 04:23 01/24/25 04:23 01/24/25 04:53 01/22/25 19:36 FiO2 95 01/20/25 16:00 Oxygen Flow Rate (L/min) 3 Oxygen Delivery Method Room Air Weight: 209 lb 7.026 oz Body Mass Index (BMI) 33.7 Intake & Output: Intake and Output for Last 24 Hours 01/22/25 01/23/25 01/24/25 23:59 23:59 23:59 Intake Total 105 / 105 1720 / 1720 Output Total 3800 / 3800 4675 / 4675 500 / 500 Balance -3695 / -3695 -2955 / -2955 -500 / -500 Lab / Micro Data Attestation: I reviewed the patient's lab results. 01/24/25 05:43 01/24/25 05:43 Labs: Laboratory Results - last 24 hr 01/23/25 11:22: POC Glucose 163 H 01/23/25 16:57: POC Glucose 150 H 01/23/25 21:34: POC Glucose 155 H 01/24/25 05:43: WBC 7.3, RBC 3.21 L, Hgb 9.8 L, Hct 29.6 L, MCV 92.2, MCH 30.5, MCHC 33.1, RDW Std Deviation 49.5 H, RDW Coeff of He 14.6, Plt Count 237, MPV 10.4, Immature Gran % (Auto) 0.800, Neut % (Auto) 54.7, Lymph % (Auto) 30.9, [place] % (Auto) 9.4, Eos % (Auto) 3.7, Baso % (Auto) 0.5, Absolute Neuts (auto) 4.0, Absolute Lymphs (auto) 2.26, Nucleated RBC % 0, Sodium 134, Potassium 4.4, Chloride 101, Carbon Dioxide 22.8, Anion Gap 11, BUN 16, Creatinine 0.67 L, Estim Creat Clear Calc 106.31, Est GFR (MDRD) Non-Af 101, BUN/Creatinine Ratio 24.3 H, Glucose 136 H, Calcium 8.9 01/24/25 06:30: POC Glucose 131 H Rhythm Strip Rhythm Strip: Junctional rhythm Rate: 45 Cardiology Labs/Tests 01/24/25 05:43: WBC 7.3, RBC 3.21 L, Hgb 9.8 L, Hct 29.6 L, MCV 92.2, MCH 30.5, MCHC 33.1, Plt Count 237, MPV 10.4, Immature Gran % (Auto) 0.800, Neut % (Auto) 54.7, Lymph % (Auto) 30.9, [place] % (Auto) 9.4, Eos % (Auto) 3.7, Baso % (Auto) 0.5, Absolute Neuts (auto) 4.0, Nucleated RBC % 0, Sodium 134, Potassium 4.4, Chloride 101, Carbon Dioxide 22.8, Anion Gap 11, BUN 16, Creatinine 0.67 L, Est GFR (MDRD) Non-Af 101, BUN/Creatinine Ratio 24.3 H, Glucose 136 H, Calcium 8.9 Rhythm: EKG: ECHO: Stress Test: Cardiac Cath: PCI: CT Surgery: Holter monitor: EPS: PPM: CXR: Chest CT Scan: Physical Exam Const alert and oriented x3 HEENT normocephalic Eyes EOMs intact bilaterally Neck no JVD Resp normal respiratory effort and clear to auscultation bilaterally Cardio Rate: bradycardia Rhythm: regular rhythm Heart Sounds: S1 normal and S2 normal; Negative for click, gallop or murmur Extremity no pedal edema Neuro Neuro Narrative: Alert and oriented x 3 Psych mental status grossly normal Assessment & Plan Assessment/Plan (1) Bradycardia: PLAN: Patient continues to have episodes of junctional rhythm. This rhythm has been documented as far back as September 2023 in the 40 bpm range. The patient denies any donte syncope except when she has seizures. She does report some lightheaded episodes but her blood pressures are 114 systolic when she was complaining of lightheadedness. Heart rate was 40-45 bpm in a junctional rhythm. I did discuss this in detail with the pacemaker implanting physician. Given the fact that her longest pause on her monitor has been 2 seconds she really does not meet criteria with no history of syncope for pacer implantation at this time. Would recommend once discharged the patient have a 14-day event monitor placed to see what her rhythm does in her home environment when she is doing her ADLs. Please have her get the 14-day event monitor at discharge and then follow-up with the [facility] in 3 to 4 weeks. PLAN: Plan 1. Recommend 14-day event monitor at time of discharge. 2. Follow-up with the [facility] in 3 to 4 weeks after the 14-day event monitor is completed. 3. Will sign off at this time if further assistance is needed please recall the [facility]. Charges/Coding Visit Charges Inpatient E&M: 55351 Subs Hosp L2
--- NOTE | 2025-01-24 08:44 | PCM.PN.HOSP ---
Reason for Visit Chief Complaint: Seizure, fall. Subjective Subjective Patient seen. Plan is for patient to be discharged home following med reconciliation Objective Data Objective Data Vital Signs: Vital Signs Temp Pulse Resp BP Pulse Ox O2 Del Method O2 Flow Rate 97.4 F L 56 L 15 133/65 H 98 Room Air 3 01/24/25 02:39 01/24/25 04:23 01/24/25 04:23 01/24/25 04:23 01/24/25 04:23 01/24/25 04:53 01/22/25 19:36 FiO2 95 01/20/25 16:00 Oxygen Flow Rate (L/min) 3 Oxygen Delivery Method Room Air Weight: 95 kg Body Mass Index (BMI) 33.7 Intake & Output: Intake and Output for Last 24 Hours 01/22/25 01/23/25 01/24/25 23:59 23:59 23:59 Intake Total 105 / 105 1720 / 1720 Output Total 3800 / 3800 4675 / 4675 500 / 500 Balance -3695 / -3695 -2955 / -2955 -500 / -500 Lab / Micro Data 01/24/25 05:43 01/24/25 05:43 Labs: Laboratory Results - last 24 hr 01/23/25 11:22: POC Glucose 163 H 01/23/25 16:57: POC Glucose 150 H 01/23/25 21:34: POC Glucose 155 H 01/24/25 05:43: WBC 7.3, RBC 3.21 L, Hgb 9.8 L, Hct 29.6 L, MCV 92.2, MCH 30.5, MCHC 33.1, RDW Std Deviation 49.5 H, RDW Coeff of He 14.6, Plt Count 237, MPV 10.4, Immature Gran % (Auto) 0.800, Neut % (Auto) 54.7, Lymph % (Auto) 30.9, [place] % (Auto) 9.4, Eos % (Auto) 3.7, Baso % (Auto) 0.5, Absolute Neuts (auto) 4.0, Absolute Lymphs (auto) 2.26, Nucleated RBC % 0, Sodium 134, Potassium 4.4, Chloride 101, Carbon Dioxide 22.8, Anion Gap 11, BUN 16, Creatinine 0.67 L, Estim Creat Clear Calc 106.31, Est GFR (MDRD) Non-Af 101, BUN/Creatinine Ratio 24.3 H, Glucose 136 H, Calcium 8.9 01/24/25 06:30: POC Glucose 131 H Rhythm Strip Rhythm Strip: Sinus Rhythm Rate: 70 Physical Exam Narrative GENERAL: cooperative HEENT: Atraumatic; normocephalic EYES; Anicteric, Normal Conjunctiva NECK; supple, normal thyroid, RESPIRATORY: Diminished to auscultation CARDIOVASCULAR: Regular S1 S2, GI: soft, normoactive bowel sounds, : No Renal angle tenderness; EXTREMITIES: No edema, no clubbing, MUSCULOSKELETAL: no muscle wasting NEURO: Awake; no lateralizing signs. SKIN: No Rash PSYCH; Flat affect Assessment & Plan Assessment/Plan (1) Acute hyponatremia: (2) Seizure: PLAN: Plan Patient is a 59-year-old lady with history of seizure disorder, previous midbrain CVA with residual left-sided hemiplegia who presented to the emergency department after an apparent seizure episode. Patient was found to have significant hyponatremia. Admitted to the intensive care unit for further management 1. Seizure disorder ? With breakthrough seizure. Patient admitted to a monitored bed. Did continue patient home antiseizure medications EEG ordered and consultation placed to [facility] ? Patient was seen in consultation by [facility]; neurology recommended adjustment of patient antiseizure medications. 2.Mild hyponatremia ? Patient sodium level on admission was 121. Given patient presentation?seizures patient was placed on hypertonic saline which was later followed by fluid restriction. Patient's sodium level as of 01/22/2025 was 132 3. Marked bradycardia ?Patient monitored continuously. TSH obtained on admission came back within normal limits. Per patient she had undergone Holter monitoring by her primary cardiology on account of bradycardia and consideration has been given to possible pacemaker placement. Consult subsequently placed to cardiology ? 01/23/2025; patient was seen in consultation by cardiology review was that patient bradycardia may be secondary to her antiseizure medications dose of which has been adjusted by neuro 4. Class II obesity with BMI of 36 ? Complicating care weight loss advised 5. Diabetes mellitus type II -patient's oral hypoglycemics held. Placed on long acting insulin, Accu-Cheks a.c. and at bedtime and covered with sliding scale insulin 6. GERD ? On PPI 7. Chronic migraines ? Per history. Followed by neurology as outpatient 8. Possible Underlying MS/demyelinating disease ? Patient currently being evaluated by neurology as outpatient 9. History of previous midbrain CVA ? With residual left-sided hemiplegia requested for PT OT eval 10. Allergic rhinitis ? Patient is on fluticasone 11. DVT prophylaxis ? Subcu Lovenox
--- NOTE | 2025-01-24 09:50 | PCM.DC.SUM ---
Providers Date of Admission: 01/19/25 Date of Discharge: 01/24/25 Primary Care Physician: Dr. Riddhi Simpson MD Consultations 01/19/25 16:40 Consult: Telegraph Equipment Maintainer / Pulmonary Medicine Routine Consulting Provider: Intensivists/Pulmonary Med Reason for Consult: Hyponatremia, seizure EMERGENT Consult: No Notified: Yes Date Notified: 01/19/25 Time Notified: 20:45 Method of Notification: Text Consult: Nephrology Routine Consulting Provider: Violeta Samano Reason for Consult: Hyponatremia, presentation w/ seizure EMERGENT Consult: No Notified: Yes Date Notified: 01/19/25 Time Notified: 17:30 Method of Notification: Answering Service Consult: Tele-Neurology Routine Consulting Provider: [facility] Reason for Consult: Breakthrough seizure, epilepsy Hx, notable hyponatremic presentation EMERGENT Consult: No Notified: Yes Date Notified: 01/19/25 Time Notified: 17:23 Method of Notification: Answering Service Nursing Unit Staff Notify [facility] of Tele-Neurology Consult: Yes 01/20/25 15:49 Consult: Gastroenterology Routine Consulting Provider: [facility] Reason for Consult: GI bleed concerns EMERGENT Consult: No Notified: Yes Date Notified: 01/21/25 Time Notified: 15:49 Method of Notification: Text 01/22/25 08:03 Consult: Cardiology Routine Consulting Provider: Pelon Valero Reason for Consult: Symptomatic bradycardia EMERGENT Consult: No Notified: Yes Date Notified: 01/22/25 Time Notified: 08:05 Method of Notification: Text Reason For Visit: HYPONATREMIA, SEIZURE Diagnosis Discharge Diagnosis (1) Acute hyponatremia: Status: Acute Code(s): E87.1 - Hypo-osmolality and hyponatremia (2) Seizure: Status: Acute Code(s): R56.9 - Unspecified convulsions Plan Patient is a 59-year-old lady with history of seizure disorder, previous midbrain CVA with residual left-sided hemiplegia who presented to the emergency department after an apparent seizure episode. Patient was found to have significant hyponatremia. Admitted to the intensive care unit for further management 1. Seizure disorder ? With breakthrough seizure. Patient admitted to a monitored bed. Did continue patient home antiseizure medications EEG ordered and consultation placed to [facility] ? Patient was seen in consultation by [facility]; neurology recommended adjustment of patient antiseizure medications. ? 01/24/2025; patient to follow-up with primary neurologist Dr. Santoro for subsequent adjustments of her antiseizure medication 2.Mild hyponatremia ? Patient sodium level on admission was 121. Given patient presentation?seizures patient was placed on hypertonic saline which was later followed by fluid restriction. Patient's sodium level as of 01/22/2025 was 132 ? Sodium level at the time of discharge was 134 3. Marked bradycardia ?Patient monitored continuously. TSH obtained on admission came back within normal limits. Per patient she had undergone Holter monitoring by her primary cardiology on account of bradycardia and consideration has been given to possible pacemaker placement. Consult subsequently placed to cardiology ? 01/23/2025; patient was seen in consultation by cardiology review was that patient bradycardia may be secondary to her antiseizure medications dose of which has been adjusted by neuro ? 01/24/2025; patient was discharged home on a 14-day event 4. Class II obesity with BMI of 36 ? Complicating care weight loss advised 5. Diabetes mellitus type II -patient's oral hypoglycemics held. Placed on long acting insulin, Accu-Cheks a.c. and at bedtime and covered with sliding scale insulin 6. GERD ? On PPI 7. Chronic migraines ? Per history. Followed by neurology as outpatient 8. Possible Underlying MS/demyelinating disease ? Patient currently being evaluated by neurology as outpatient 9. History of previous midbrain CVA ? With residual left-sided hemiplegia requested for PT OT eval 10. Allergic rhinitis ? Patient is on fluticasone 11. DVT prophylaxis ? Subcu Lovenox Medications at Discharge Home Medications albuterol sulfate 90 mcg/actuation aerosol inhaler 2 puff inhalation Q4H PRN Wheezing 09/03/22 insulin syr/ndl U100 half shirley 0.5 mL 31 gauge x 16 (Droplet Insulin Syringe (half unit)) 09/03/22 dextromethorphan 20 mg-quinidine 10 mg capsule (Nuedexta) 1 cap PO BID DEPRESSION 02/06/23 insulin lispro 100 unit/mL subcutaneous solution 3 unit subcut .COMPLEX DIABETES 09/04/23 meclizine 25 mg tablet 25 mg PO DAILY PRN vertigo 09/04/23 nystatin 100,000 unit/gram topical powder (Nyamyc) 1 applic topical BID RASH 09/04/23 Lactobacillus rhamnosus GG 10 billion cell capsule (Culturelle) 1 cap PO DAILY recurrent uti 05/09/24 ascorbic acid (vitamin C) 500 mg tablet 500 mg PO QDAY see pcp 05/09/24 cranberry fruit 450 mg tablet 450 mg PO TID see pcp 05/09/24 hydrocodone-acetaminophen 5-325mg 5mg-325mg 1 tab PO BID pain 09/11/24 atorvastatin 80 mg tablet 80 mg PO QHS cholesterol #90 tabs 10/30/24 cephalexin 250 mg capsule 250 mg PO QHS recurrent UTI #90 caps 10/30/24 flash glucose scanning reader ([employer] Es 2 Alligator) #1 ea 10/30/24 flash glucose sensor (Dibsieyle Es 2 Sensor kit) #3 ea 10/30/24 handicap placard #1 ea 11/15/24 fluticasone furoate 200 mcg/actuation blister powder for inhalation (Arnuity Ellipta) 1 inh inhalation DAILY copd #30 ea 11/20/24 mirtazapine 15 mg tablet 30 mg PO QHS sleep 12/14/24 omeprazole 40 mg capsule,delayed release 40 mg PO DAILY GERD #90 caps 01/03/25 cenobamate 200 mg tablet (Xcopri) 200 mg PO QDAY #30 tabs 01/08/25 gabapentin 800 mg tablet 800 mg PO QHS nerve pain #30 tabs 01/08/25 ibuprofen 600 mg tablet 600 mg PO TID PRN headache/pain #90 tabs 01/08/25 levocarnitine 330 mg tablet 330 mg PO BID elevated ammonia #60 tabs 01/08/25 promethazine 12.5 mg tablet 12.5 mg PO TID PRN nausea and vomiting #90 tabs 01/08/25 ubrogepant 100 mg tablet (Ubrelvy) 100 mg PO .COMPLEX MIGRAINE #14 tabs 01/08/25 diphenhydramine HCl 25 mg capsule (Allergy (diphenhydramine)) 50 mg PO QHS sleep 01/19/25 gabapentin 300 mg capsule 300 mg PO BID pain 01/19/25 galcanezumab-gnlm 120 mg/mL subcutaneous pen injector (Emgality Pen) 120 mg subcut QMONTH migraines 01/19/25 melatonin 10 mg capsule 10 mg PO QHS sleep 01/19/25 semaglutide 0.25 mg or 0.5 mg (2 mg/3 mL) subcutaneous pen injector (Ozempic) 0.25 mg subcut QWEEK diabetes 01/19/25 tizanidine 2 mg tablet 2 mg PO TID for muscle spasm 01/19/25 topiramate 25 mg tablet 25 mg PO BID seizures 01/19/25 carbamazepine 200 mg tablet (Tegretol) 200 mg PO TIDCM seizures #1 TAB 01/24/25 insulin glargine 100 unit/mL (3 mL) subcutaneous pen 30 unit (0.3 mL) subcut QAM diabetes #1 mL 01/24/25 Hospital Course Summary of Care Provided Minutes Spent on Discharge: 35 Physical Exam Narrative GENERAL: cooperative HEENT: Atraumatic; normocephalic EYES; Anicteric, Normal Conjunctiva NECK; supple, normal thyroid, RESPIRATORY: Diminished to auscultation CARDIOVASCULAR: Regular S1 S2, GI: soft, normoactive bowel sounds, : No Renal angle tenderness; EXTREMITIES: No edema, no clubbing, MUSCULOSKELETAL: no muscle wasting NEURO: Awake; no lateralizing signs. SKIN: No Rash PSYCH; Flat affect Weight / BMI Weight Weight: 95 kg Body Mass Index (BMI) 33.7 ABG / Lab / Microbiology Data 01/24/25 05:43 01/24/25 05:43 Laboratory: Laboratory Results - last 24 hr 01/23/25 11:22: POC Glucose 163 H 01/23/25 16:57: POC Glucose 150 H 01/23/25 21:34: POC Glucose 155 H 01/24/25 05:43: WBC 7.3, RBC 3.21 L, Hgb 9.8 L, Hct 29.6 L, MCV 92.2, MCH 30.5, MCHC 33.1, RDW Std Deviation 49.5 H, RDW Coeff of He 14.6, Plt Count 237, MPV 10.4, Immature Gran % (Auto) 0.800, Neut % (Auto) 54.7, Lymph % (Auto) 30.9, [place] % (Auto) 9.4, Eos % (Auto) 3.7, Baso % (Auto) 0.5, Absolute Neuts (auto) 4.0, Absolute Lymphs (auto) 2.26, Nucleated RBC % 0, Sodium 134, Potassium 4.4, Chloride 101, Carbon Dioxide 22.8, Anion Gap 11, BUN 16, Creatinine 0.67 L, Estim Creat Clear Calc 106.31, Est GFR (MDRD) Non-Af 101, BUN/Creatinine Ratio 24.3 H, Glucose 136 H, Calcium 8.9 01/24/25 06:30: POC Glucose 131 H D/C Instructions Discharge Activity: Return to Normal Activity and May Not Drive (Do not drive) Call your doctor if you observe: Fever of 101 or Higher, Shortness of breath, Fainting spells and Chest pain DC O2, CPAP, BIPAP Needs Home O2 Discharge instructions: No Meaningful Use Info Meaningful Use Meaningful Use Diagnoses (Choose all that apply): None applicable Discharge Plan Admission Admit Date/Time: 01/19/25 15:13 Attending Provider: Lj Zacarias Primary Care Provider: Riddhi Simpson Consulting Providers: Luis Fernando Fuller; Monica Lebron; John Kurtz; Niecy Shah; Rocio Sarmiento; Tia Sneed; Pelon Valero; Violeta Samano; Carlo Ahumada; Kim Lomeli; Pao Beckham; Wilfred Brown; Nena Cavazos; Bib Duncan; Quinten Chang; Julius Patton; Willis Jovel; Rajesh Heath; Sedrick Michelle; Naman Adames; Khang Birmingham; Abby Barnes; Lynn Fu; Kristy Ferrer; Navneet Reyna; Mazin Ortiz; KEM BE; Richard Jackson; Karoline Meyer Discharge Orders/Prescriptions Prescriptions: Continued cranberry fruit 450 mg tablet 450 mg PO TID Rx Instructions: administer with meals Culturelle 10 billion cell capsule 1 cap PO DAILY ascorbic acid (vitamin C) 500 mg tablet 500 mg PO QDAY (DME) FreeStyle Es 2 Sensor Kit MISCELLANEOUS Qty: 3 0RF Rx Instructions: As directed (DME) FreeStyle Es 2 Alligator Misc MISCELLANEOUS Qty: 1 0RF Rx Instructions: As directed cephalexin 250 mg capsule 250 mg PO QHS Qty: 90 0RF atorvastatin 80 mg tablet 80 mg PO QHS Qty: 90 0RF Xcopri 200 mg tablet 200 mg PO QDAY Qty: 30 2RF promethazine 12.5 mg tablet 12.5 mg PO TID PRN (Reason: nausea and vomiting) Qty: 90 4RF gabapentin 800 mg tablet 800 mg PO QHS Qty: 30 2RF ibuprofen 600 mg tablet 600 mg PO TID PRN (Reason: headache/pain) Qty: 90 2RF levocarnitine 330 mg tablet 330 mg PO BID Qty: 60 2RF Rx Instructions: must administer with a meal/food Ubrelvy 100 mg tablet 100 mg PO .COMPLEX Qty: 14 2RF Rx Instructions: Take 1 tablet orally every 2 hours as needed for headache up to 2 tablets/day. albuterol sulfate 90 mcg/actuation HFA aerosol inhaler 2 puff INHALATION Q4H PRN (Reason: Wheezing) Patient Comments: INHALE TWO PUFFS BY MOUTH DIRECTED EVERY 6 HOURS NEEDED FOR WHEEZING OR FOR SHORTNESS OF BREATH (BULK) (DME) Droplet Insulin Syr(half unit) 0.5 mL 31 gauge x 5/16 syringe MISCELLANEOUS Patient Comments: USE TO INJECT INSULIN UNDER THE SKIN EVERY MEAL AND AT BEDTIME PER SLIDING SCALE Nuedexta 20-10 mg capsule 1 cap PO BID insulin lispro 100 unit/mL solution 3 unit subcut .COMPLEX Rx Instructions: 3 units subcutaneously achs; INJECT PER SLIDING SCALE THREE TIMES DAILY FOLLOWS ONE UNIT IF BG LESS THAN 110, TWO UNITS FOR BG 111-150, FOUR UNITS FOR BG 151-200, SEVEN UNITS FOR BG 201-250, 10 UNITS FOR BG 251-300, 13 UNITS FOR BG 301-350, 16 UNITS FOR BG 351-400, CALL MD IF BG OVER 400 (MAX 48 UNITS PER DAY) meclizine 25 mg tablet 25 mg PO DAILY PRN Patient Comments: TAKE ONE TABLET BY MOUTH BID nystatin [Nyamyc] 100,000 unit/gram powder 1 applic TOPICAL BID Patient Comments: apply to affected area twice a day if needed mirtazapine 15 mg tablet 30 mg PO QHS melatonin 10 mg capsule 10 mg PO QHS diphenhydramine HCl [Allergy (diphenhydramine)] 25 mg capsule 50 mg PO QHS tizanidine 2 mg tablet 2 mg PO TID topiramate 25 mg tablet 25 mg PO BID Rx Instructions: Takes at 3 pm and 10 pm twice daily gabapentin 300 mg capsule 300 mg PO BID Rx Instructions: Takes at 10 am and 3 pm twice daily Emgality Pen 120 mg/mL pen injector 120 mg subcut QMONTH Rx Instructions: Takes the of every month Ozempic 0.25 mg or 0.5 mg (2 mg/3 mL) pen injector 0.25 mg SUBCUT QWEEK Rx Instructions: Takes every Wednesday hydrocodone-acetaminophen 5-325 mg tablet 1 tab PO BID (DME) handicap placard See Rx Instructions .ROUTE .MEDSUPPLY Qty: 1 0RF Rx Instructions: Length of time: 5 years Diagnosis: Impaired physical mobility z74.09 Arnuity Ellipta 200 mcg/actuation blister with device 1 inh inhalation DAILY Qty: 30 2RF omeprazole 40 mg capsule,delayed release(DR/EC) 40 mg PO DAILY Qty: 90 0RF Changed carbamazepine [Tegretol] 200 mg tablet 200 mg PO TIDCM Qty: 1 0RF insulin glargine 100 unit/mL (3 mL) insulin pen 30 unit SUBCUT QAM Qty: 1 0RF Discontinued duloxetine 60 mg capsule,delayed release(DR/EC) 60 mg PO QDAY Patient Comments: TAKE ONE CAPSULE BY MOUTH TWICE DAILY lorazepam 0.5 mg tablet 0.5 mg PO QHS PRN carbamazepine 300 mg capsule, ER multiphase 12 hr 300 mg PO QHS hydroxyzine HCl 25 mg tablet 50 mg PO QHS Other Ambulatory Orders: Occupational Therapy Eval (Routine) Location: None Selected Ordered By: Dr. Lj Zacarias Physical Therapy Evaluation (Routine) Location: None Selected Ordered By: Dr. Lj Zacarias 30 Day Event Recorder Preventi (Urgent) Timeframe: 1 Day Facility: [facility] - Location: Cardiovascular Services Ordered By: Dr. Lj Zacarias Referrals / Follow Up: Riddhi Simpson MD [Primary Care Provider] - Within 1 Week Pelon Valero MD [Med Staff - Active Staff] - Within 1 Month Vicente Santoro MD [Non-Staff -Ordering Privileges] - Within 1 Week Disposition Disposition (needs filled in before D/C Order can be placed): Home, Self Care Charges/Coding Visit Charges Inpatient E&M: 62384 Disch Hosp >30min
--- NOTE | 2025-01-24 10:04 | CASEMGMT ---
Patient has order for discharge. ENRIQUE CM in to discuss needs at discharge. Patient wishes to return home with resumption of outpatient therapy at [facility] as previously ordered. Patient inquired about possible wheelchair. ENRIQUE SHELL informed patient that she is doing well with therapy and does not currently qualify for wheelchair but if she would qualify in the future she could follow-up with PCP, patient voiced understanding. Patient had no further questions or concerns.
[2025-01-24] MEDS: Lactobacillis Acidophilus 1 CAP PO (10:31)
[2025-01-24] MEDS: CENOBAMATE 200 MG TABLET PO (10:33)
[2025-01-24] MEDS: Insulin Glargine-YFGN 100 UNIT/ML Pen 30 UNIT SC (11:59)
--- NOTE | 2025-01-24 15:23 | CASEMGMT ---
Social Work - advance directives SW met with pt and assisted in completing HCPOA naming her sister Debbie. Copy placed on pt chart and original given to pt. Pt choosing not to complete living will at this time. DAIJA Kovacs
[2025-01-24] MEDS: DEXTROMETHORPHAN HBR/QUINIDINE 1 EACH CAPSULE PO (16:29)
== END 2025-01-24 18:50 | disposition home or self-care (01) | DRG 643 ==
LOC: ED 15:13 → ICU 15:45 → PCU 01-23 18:00
PROVIDERS: Hospitalist; Physician Assistant; Admitting Provider Family Medicine; Emergency Provider Surgery; PCP Internal Medicine; Referring Provider Surgery; Visit Provider Internal Medicine
DX: E22.2 Syndrome of inappropriate secretion of antidiuretic hormone (principal); G92.8 Other toxic encephalopathy; I69.354 Hemiplegia and hemiparesis following cerebral infarction affecting left non-dominant side; G37.9 Demyelinating disease of central nervous system, unspecified; S32.029A Unspecified fracture of second lumbar vertebra, initial encounter for closed fracture; E87.20 Acidosis, unspecified; I45.2 Bifascicular block; J44.9 Chronic obstructive pulmonary disease, unspecified; G40.909 Epilepsy, unspecified, not intractable, without status epilepticus; E11.65 Type 2 diabetes mellitus with hyperglycemia; F32.A Depression, unspecified; D64.9 Anemia, unspecified; E66.812 Obesity, class 2; E11.40 Type 2 diabetes mellitus with diabetic neuropathy, unspecified; E78.00 Pure hypercholesterolemia, unspecified; F41.9 Anxiety disorder, unspecified; K21.9 Gastro-esophageal reflux disease without esophagitis; L40.9 Psoriasis, unspecified; Z79.4 Long term (current) use of insulin; G43.709 Chronic migraine without aura, not intractable, without status migrainosus; W19.XXXA Unspecified fall, initial encounter; I95.1 Orthostatic hypotension; J30.9 Allergic rhinitis, unspecified; E87.8 Other disorders of electrolyte and fluid balance, not elsewhere classified; R00.1 Bradycardia, unspecified; G89.4 Chronic pain syndrome; T42.1X5A Adverse effect of iminostilbenes, initial encounter; Z79.85 Long-term (current) use of injectable non-insulin antidiabetic drugs; Z79.51 Long term (current) use of inhaled steroids; Z68.36 Body mass index [BMI] 36.0-36.9, adult; Z90.49 Acquired absence of other specified parts of digestive tract; Z87.19 Personal history of other diseases of the digestive system; Z79.891 Long term (current) use of opiate analgesic; Z79.899 Other long term (current) drug therapy; Z87.891 Personal history of nicotine dependence
CPT/HCPCS: 36415; 36569; 36600; 70450; 70553; 71045; 71046; 72125; 72131; 80048; 80053; 80156; 80307; 81001; 82010; 82077; 82140; 82570; 82803; 82962; 83605; 83735; 83935; 84100; 84145; 84300; 84443; 85025; 93005; 94640; 94668; 94762; 95819; 97162; 97166; 97530; 97535; 99285; A9575; P9612; A4216

== ENCOUNTER → 2025-01-19 | Outpatient (CLI) | payer MEDICARE, MEDICAID, SELFPAY | END | disposition home or self-care (01) | LOC: LAB 07:00 | PROVIDERS: PCP Internal Medicine; Referring Provider Anesthesiology Pain Medicine; Visit Provider Anesthesiology Pain Medicine | DX: F11.20 Opioid dependence, uncomplicated (principal) | CPT/HCPCS: 80307 ==

== ENCOUNTER 2025-01-29 17:38 | Inpatient (IN) | payer MEDICARE, MEDICAID, SELFPAY ==
[2025-01-29] VITALS (16 sets, daily range): BP systolic 102–156; BP diastolic 50–84; PULSE 33–76; RESP 12–18; TEMP 36.3–36.4; O2SAT 94–100; BMI 35.1; BMI 33.7
--- NOTE | 2025-01-29 17:50 | EKG12_ITS ---
Test Reason : MYRIAM Blood Pressure : */* mmHG Vent. Rate : 35 BPM Atrial Rate : * BPM P-R Int : * ms QRS Dur : 146 ms QT Int : 572 ms P-R-T Axes : * -44 -8 degrees QTcB Int : 436 ms Critical Test Result: Low HR , Arrhythmia Idioventricular rhythm Left axis deviation Right bundle branch block Cannot rule out Septal infarct , age undetermined Abnormal ECG Confirmed by Pelon Valero ([id number]), editorial project manager MAHESH VASQUEZ ([id number]) on 01/30/2025 1:19:27 PM Referred By: KAMLESH Confirmed By: Pelon Valero
[2025-01-29] MEDS: 0.9% Normal Saline (1000mL) 1,000 ML 999 ML IV (17:57)
--- NOTE | 2025-01-29 18:00 | EDS_ITS ---
HPI History of Present Illness Chief Complaint: Chest Pain Detail of Chief Complaint: Slow heart rate. Informant: patient Onset/Context/Timing Onset: Today Narrative Narrative: 59-year-old female history of diabetes, seizure disorder on Tegretol, COPD, prior stroke. Recently admitted from the hospital and discharged from here on Wednesday for bradycardia they are working her up for possible pacemaker. They said she just did not feel well felt sluggish. Called her sister who came over and called the squad. Reportedly per the squad she had a syncopal event was bradycardic in the 30s. They had given her Versed after that the pacer. On arrival she is not being paced heart rates in the 30s she has a palpable carotid pulse I suspect her pressures around 60-70. She was given a milligram of atropine. Heart rate is now in the mid 40s which is her baseline and she is a pressure 114/59. She is awake and alert. Prior Similar Symptoms: Yes Recent Illness/Hospitalization: Yes PE Risk Factors: Positive for Recent Immobilization; Negative for Recent Travel/Surgery, Prior DVT or PE, Cancer or OCP + Smoking + >/=35 TAD Risk Factors: Negative for Marfan's Syndrome [facility] Medical History (Updated 01/29/25 @ 18:35 by Cnidy Moreau) Former smoker Asthma Seizures Multiple sclerosis Demyelinating disease of central nervous system Epilepsy Generalized weakness Recurrent falls Recurrent syncope Anxiety Depression COPD (chronic obstructive pulmonary disease) Migraines Multiple falls Gastroenteritis Diabetes mellitus, type 2 History of CVA (cerebrovascular accident) GERD (gastroesophageal reflux disease) Obesity Former tobacco use Seizure disorder Allergic rhinitis Chronic migraine Orthostasis HTN (hypertension) COVID-19 virus infection Bradycardia Psoriasis Hypercholesterolemia Home Medications ?Medication ?Instructions ?Recorded ?Last Taken ?Type albuterol sulfate 90 mcg/actuation 2 puff inhalation Q 4H PRN Wheezing 09/03/22 01/29/25 History aerosol inhaler insulin syr/ndl U100 half shirley 0.5 09/03/22 Unknown H istory mL 31 gauge x 5/16 (Droplet Insulin Syringe (half unit)) dextromethorphan 20 mg-quinidine 1 cap PO BID DEPRESSI ON 02/06/23 01/29/25 History 10 mg capsule (Nuedexta) insulin lispro 100 unit/mL 3 unit subcut .COMPLEX DIAB ETES 09/04/23 09/04/23 History subcutaneous solution meclizine 25 mg tablet 25 mg PO DAILY PRN vertigo 0 09/04/23 09/04/23 History nystatin 100,000 unit/gram topical 1 applic topical BI D RASH 09/04/23 01/28/25 History powder (Nyamyc) Lactobacillus rhamnosus GG 10 1 cap PO DAILY recurrent uti 05/09/24 01/29/25 History billion cell capsule (Culturelle) ascorbic acid (vitamin C) 500 mg 500 mg PO QDAY see pc p 05/09/24 01/29/25 Hi story tablet cranberry fruit 450 mg tablet 450 mg PO TID see pcp 01/29/25 History hydrocodone-acetaminophen 5-325mg 1 tab PO BID pain 01/29/25 History 5mg-325mg atorvastatin 80 mg tablet 80 mg PO QHS cholesterol #90 tabs 10/30/24 01/28/25 Rx cephalexin 250 mg capsule 250 mg PO QHS recurrent UTI #90 10/30/24 01/28/25 Rx caps flash glucose scanning reader #1 ea 10/30/24 Unknown R x (FreeStyle Es 2 [place]) flash glucose sensor (FreeStyle #3 ea 10/30/24 Unknown Rx Es 2 Sensor kit) handicap placard #1 ea 11/15/24 Unknown Rx fluticasone furoate 200 1 inh inhalation DAILY copd #30 ea 11/20/24 01/29/25 Rx mcg/actuation blister powder for inhalation (Arnuity Ellipta) mirtazapine 15 mg tablet 30 mg PO QHS sleep 12/14/24 01/28/25 History omeprazole 40 mg capsule,delayed 40 mg PO DAILY GERD # 90 caps 01/03/25 01/29/25 Rx release cenobamate 200 mg tablet (Xcopri) 200 mg PO QDAY #30 t abs 01/08/25 01/29/25 Rx gabapentin 800 mg tablet 800 mg PO QHS nerve pain #30 tabs 01/08/25 01/28/25 Rx ibuprofen 600 mg tablet 600 mg PO TID PRN headache/p ain 01/08/25 01/29/25 Rx #90 tabs levocarnitine 330 mg tablet 330 mg PO BID elevated amm onia #60 01/08/25 01/29/25 Rx tabs promethazine 12.5 mg tablet 12.5 mg PO TID PRN nausea and 01/08/25 Unknown Rx vomiting #90 tabs ubrogepant 100 mg tablet (Ubrelvy) 100 mg PO .COMPLEX MIGRAINE #14 01/08/25 Unknown Rx tabs diphenhydramine HCl 25 mg capsule 50 mg PO QHS sleep 0 01/19/25 01/28/25 History (Allergy (diphenhydramine)) gabapentin 300 mg capsule 300 mg PO BID pain 01/19/25 01/29/25 History galcanezumab-gnlm 120 mg/mL 120 mg subcut QMONTH migra kendal 01/19/25 01/09/25 History subcutaneous pen injector (Emgality Pen) melatonin 10 mg capsule 10 mg PO QHS sleep 01/19/25 01/28/25 History semaglutide 0.25 mg or 0.5 mg (2 0.25 mg subcut QWEEK diabetes 01/19/25 01/28/25 History mg/3 mL) subcutaneous pen injector (Ozempic) tizanidine 2 mg tablet 2 mg PO TID for muscle spasm 01/19/25 01/29/25 History topiramate 25 mg tablet 25 mg PO BID seizures 01/29/25 History carbamazepine 200 mg tablet 200 mg PO TIDCM seizures # 1 TAB 01/24/25 01/29/25 Rx (Tegretol) insulin glargine 100 unit/mL (3 30 unit (0.3 mL) subcu t QAM 01/24/25 01/29/25 Rx mL) subcutaneous pen diabetes #1 mL Allergy/AdvReac Type Severity Reaction Status Date / Time adhesive tape Allergy Intermediate Rash Verified 01/08/25 08:39 latex Allergy Rash Verified 01/08/25 08:39 levofloxacin (From Levaquin) Allergy Hives Verified 01/08/25 08:39 ondansetron (From Zofran) Allergy Hives Verified 01/08/25 08:39 nalbuphine (From Nubain) AdvReac Other Verified 01/08/25 08:39 Family History Father Hypertension Hyperlipidemia Asthma Colon cancer Mother Cancer lung Aunt Breast cancer Aunt Breast cancer Grandmother Cancer ovarian Grandfather Cancer prostate Grandmother Cancer Uncle Hypertension Aunt Hypertension Sister Hypertension Asthma Surgical History History of appendectomy Hx of tubal ligation Hx of tonsillectomy Hx of cholecystectomy Social History household members: none 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 Syncopal episode Constitutional Constitutional ED: Denies chills or fever(s) Eyes Eyes: Reports none ENT ENT ED: Denies ear pain Cardiovascular Cardiovascular: Reports as per HPI and chest pain Respiratory/Chest Respiratory/Chest: Denies cough or dyspnea Gastrointestinal Gastrointestinal: Denies abdominal pain Genitourinary Genitourinary ED: Denies dysuria or hematuria Musculoskeletal Musculoskeletal: Denies arthralgias Integumentary Denies abscess Neurologic Neurologic: Denies headache(s) Psychiatric Psychiatric: Denies anxiety Endocrine Endocrinology: Denies cold intolerance Hematologic/Lymphatic Hematologic/Lymphatic: Denies easy bleeding, easy bruising or lymphadenopathy Allergic/Immunologic Allergic/Immunologic ED: Denies mouth swelling, tongue swelling or urticaria EXAM Physical Exam Narrative Exam Narrative: 59-year-old female initially presents heart rates in the 30s not a obtainable blood pressure but she did have a palpable carotid. I suspect her pressures between 60 and 70. Initially was given a milligram of atropine heart rate came up to about 45 and now currently her pressure is 114/79. Initially in the waiting room now currently her sister is at bedside. H EENT exam pupils round reactive light. Moist with membranes. No trauma to her face or scalp. Neck nontender. Lungs clear to auscultation bilaterally. Heart bradycardic initially about 35. Currently about 45. No murmur. Chest wall ribs nontender. Abdomen soft nontender. Moving all 4 extremities. Calves are nontender without edema or cords. Neurologically she is awake and alert. Answering questions following commands. Const Vital Signs: 01/29/25 17:41 01/29/25 17:47 01/29/25 17:47 Temperature 97.5 F L Temperature Source Oral Pulse Rate 36 L Respiratory Rate 16 Respiratory Effort Normal Non-Labored Respiratory Pattern Blood Pressure 114/79 Blood Pressure Mean 90 Pulse Ox 98 Oxygen Delivery Method Room Air Oxygen Flow Rate (L/min) 01/29/25 17:47 01/29/25 17:59 01/29/25 18:10 Temperature Temperature Source Pulse Rate 44 L Respiratory Rate 16 Respiratory Effort Normal Non-Labored Respiratory Pattern Normal Blood Pressure 107/75 Blood Pressure Mean 85 Pulse Ox 100 100 Oxygen Delivery Method Room Air Nasal Cannula Oxygen Flow Rate (L/min) 2 01/29/25 18:30 Temperature Temperature Source Pulse Rate 40 L Respiratory Rate 16 Respiratory Effort Respiratory Pattern Blood Pressure 116/80 Blood Pressure Mean 92 Pulse Ox 100 Oxygen Delivery Method Nasal Cannula Oxygen Flow Rate (L/min) 2 Positive well nourished, well developed and obese; Negative for cachectic, contractures or unkempt General Appearance ED: well developed; Negative for unkempt, cachectic, contractures or NAD Nutritional Appearance: obese; Negative for cachectic HEENT Reports moist mucous membranes normocephalic and atraumatic Eyes PERRL and EOMs intact bilaterally Neck no lymphadenopathy, supple and no JVD Chest Wall inspection of chest normal and palpation of chest normal Resp normal respiratory effort and clear to auscultation bilaterally Cardio regular rhythm, S1 normal heart sound, S2 normal heart sound and no murmurs; Negative for regular rate Rate: other Other Details: Bradycardia 35 after atropine about 45. GI normal to inspection, nondistended, normoactive bowel sounds, soft to palpation, non-tender, non-distended and no masses Back/Spine no CVA tenderness and no thoracic nor lumbar tenderness Extremity normal to inspection General Extremety ED: Negative for edema, pulses abnormal or tenderness General Extremity: Negative for edema or pulses abnormal Neuro oriented x3 and CN's II-XII intact bilaterally Sensorium / Orientation: awake, alert, oriented to person, oriented to place and lethargic Psych mental status grossly normal Appearance: Negative for unkempt Skin no rashes or lesions noted and no wounds MDM MDM MDM Narrative Medical decision making narrative: 59-year-old female history of bradycardic bradycardic and hypotensive today with a syncopal episode. She was given milligram atropine currently her heart rate is 45. She has a pressure of 114 systolic. Pacemaker pads are on her. If she needs dopamine we will do a dopamine drip. Show for cardiac workup. Have already spoken to Dr. Scooter Valero cardiology. He is familiar with the patient. She will be admitted. For pacemaker placement. Repeat exam patient is doing well currently. Her heart rate is 40-45. Her blood pressure is about 110 systolic. She was given Reglan for her nausea. We reviewed her test results. I have already spoken to the hospitalist and the clinical informatics director. She will be admitted to the ICU for pacemaker placement hopefully tomorrow. If needed should be given additional atropine if she becomes more bradycardic and or a dopamine drip if needed or externally paced. History & Record Review Discussion w/independent historian: Patient and Family Additional record(s) reviewed:: Prior inpatient record, Prior outpatient record, Prior ED visit and Prior labs Lab Data Attestation: I reviewed the patient's lab results. Lab results narrative: CBC shows a white count 5.8 H&H 10.1 and 31.6 which is her baseline anemia. Platelet count 201. PT/INR 13.5 and 1. PTT 26. Electrolytes show sodium 137. Potassium normal at 4.9. Gap at 13. BUN and creatinine 22 and 1 Glucose 186. Initial troponin 19. TSH 2.6. Labs: Laboratory Results - last 24 hr 01/29/25 17:50 WBC 5.8 RBC 3.26 L Hgb 10.1 L Hct 31.6 L MCV 96.9 MCH 31.0 MCHC 32.0 RDW Std Deviation 49.5 H RDW Coeff of He 14.0 Plt Count 201 MPV 11.1 Immature Gran % (Auto) 0.300 Neut % (Auto) 61.1 Lymph % (Auto) 25.0 [place] % (Auto) 10.8 H Eos % (Auto) 2.1 Baso % (Auto) 0.7 Absolute Neuts (auto) 3.6 Absolute Lymphs (auto) 1.46 Nucleated RBC % 0 PT 13.5 INR 1.0 APTT 26.8 Sodium 137 Potassium 4.9 Chloride 106 Carbon Dioxide 18.0 L Anion Gap 13 BUN 22 H Creatinine 1.01 Estim Creat Clear Calc 72.10 Est GFR (MDRD) Non-Af 65 BUN/Creatinine Ratio 21.7 H Glucose 186 H Calcium 9.0 Troponin T High Sens 19 H TSH 2.610 Radiography Chest X-Ray - ED: 1 View, Read by ED Physician, Lungs, Mediastinum, Bony Structures, No Acute Disease, Chronic Changes and Cardiomegaly Diagnostic Testing: Clinical Impression(s) from Imaging Studies Chest X-Ray 01/29/25 18:05 IMPRESSION: Cardiomegaly with mild vascular congestion. No sizable pleural effusion. Reading Location: [facility] Chest x-ray portable, single view, interpreted by myself radiologist shows borderline cardiomegaly. Chronic changes. No STEMI or acute process. Rhythm Strip Rhythm Strip: Sinus bradycardia Rate: 35 EKG Initial EKG: Attestation: I personally reviewed and interpreted this EKG as follows: Interpretation: No Acute Injury Pattern and Sinus Bradycardia Comments: Sinus bradycardia rate of 35 no acute signs of MO or ischemia. Critical Care Time Critical Care Time: Yes Critical care time (excluding procedures): 30-74 minutes, Including time spent:, Discussing w/Patient &/or Family/Forensic Psychiatrist, Discussing w/Consultants, Arranging Admission or Transfer, Performing Direct Patient Care at Bedside and - (40 minutes) Discharge Plan Dx/Rx/DC Orders Clinical Impression: Symptomatic bradycardia, Syncope, History of diabetes mellitus, History of COPD Disposition Disposition: Acute Care Hospital [facility]
--- NOTE | 2025-01-29 18:05 | RAD_ITS ---
PROCEDURE: CHEST 1 VIEW (PORTABLE) 01/29/2025 REASON FOR EXAM: CHEST PAIN TECHNIQUE: Frontal view of the chest. COMPARISON: 01/20/2025 FINDINGS: Lungs/Pleura: No airspace consolidation. No pneumothorax or sizable pleural effusion. Linear/discoid atelectasis along the right minor fissure. Heart/Mediastinum: Cardiomegaly. Mild central vascular congestion. Bones/Soft tissues: No significant abnormality. RAD/Chest 1 View (Portable) IMPRESSION: Cardiomegaly with mild vascular congestion. No sizable pleural effusion. Reading Location: [id number]
[2025-01-29 18:11] LABS: Hematocrit 31.6 % (37-47); Hemoglobin 10.1 g/dL (12.0-15.0); Immature Granulocytes Count 0.020 X10^3/uL (0.0-0.0); Mean Corp Hgb Conc 32.0 g/dL (32-36); Mean Corpuscular Volume 96.9 fL (81-99); Mean Platelet Vol. 11.1 fl (6.2-12.0); NRBC Flagged by Analyzer 0 % (0-5); Platelet Count 201 K/mm3 (150-450); RBC Distribution Width CV 14.0 % (11.6-14.6); RBC Distribution Width SD 49.5 fl (35.1-43.9); Red Blood Count 3.26 M/mm3 (4.2-5.4); White Blood Count 5.8 K/mm3 (4.4-11.0)
[2025-01-29 18:25] LABS: Prothrombin Time (Protime)PT. 13.5 SECONDS (11.7-14.9)
[2025-01-29 18:26] LABS: Partial Thromboplast Time 26.8 Seconds (24.1-36.2)
[2025-01-29 18:31] LABS: Troponin T High Sensitivity 19 ng/L (<=14)
[2025-01-29 18:33] LABS: Anion Gap 13 (5-15); BUN 22 mg/dL (4-19); BUN/Creat Ratio 21.7 RATIO (10-20); Calcium,Total 9.0 mg/dL (7.6-11.0); Carbon Dioxide 18.0 mmol/L (21.0-32.0); Chloride 106 mmol/L (98-108); Estimated Creatinine Clearance 72.10 ml/min (50-250); Glucose 186 mg/dL (70-99); Potassium 4.9 mmol/L (3.3-5.1)
--- NOTE | 2025-01-29 18:54 | CM.ED ---
Social work Reason for referral: support Referral source: case find SW identified patient being readmitted to [facility] after 5 days at home. SW entered patient's room, introducing self and role at [facility]. Patient's sister, Debbie, was bedside. Patient stated feeling crappy and being grateful for receiving a pacemaker tomorrow. Debbie stated being patient's HCPOA now and patient stated Debbie being the only sister that patient trusts to make medical decisions on patient's behalf. Patient and Debbie both stated being hopeful that the pacemaker will be what patient needs to start feeling better. Melissa Bonds, [employer], [employer]MAN[employer] SPECIALIST
--- NOTE | 2025-01-29 20:13 | HP.PCM.HOS_ITS ---
HPI - General General Date of Admission: 01/29/25 Date of Service: 01/29/25 Chief Complaint: Syncopal episode secondary bradycardia HPI Narrative FAM VINSON, is a 59-year-old female history of diabetes, seizure disorder on Tegretol, depression, demyelinating disorder, COPD, GERD, bradycardia who presented to [facility] ED 01/29/2025 for syncopal episode and bradycardia. Patient was here recently for a seizure and fall and while admitted was found to have 2 sinus pauses and then found to be in junctional rhythm with heart rate in 40-45 range. Initially felt a little lightheaded but that resolved and patient converted to sinus rhythm. It was noted she had a history of junctional rhythm going back to at least September 2023 and had never had a syncopal episode and had no pauses longer than 2 seconds that did not meet criteria for pacemaker. Ultimately she was discharged home with plans for outpatient follow-up on 01/24/2025. Today patient felt off and somewhat short of breath. She checked her vitals and noted her heart rate was 20 and her pulse ox was in the 80s so she alerted her sister who called EMS. When EMS arrived patient had syncopal episode and there was question of syncope versus seizure, patient received Versed and was brought to the ED. In the ED heart rate in the 30s and blood pressure low, she is given milligram of atropine with some improvement in heart rate to mid 40s and improved blood pressure. Temperature 97.5, respiratory rate 16 patient 98% on room air. CBC with hemoglobin of 10.1 which appeared to be at baseline, troponin 18, TSH 2.6. BMP with normal sodium potassium, bicarb 18 and BUN 22 with creatinine of 1.01 up from 0.67 5 days ago and overall up from baseline. Chest x-ray with cardiomegaly with mild vascular congestion. Cardiology contacted who recommended admission for likely pacemaker placement. Hospitalist contacted for admission. Patient evaluated family member at bedside. Reports history as above where she felt off earlier and found heart rate to be in the 20s and oxygen in the 80s. She has syncopal episode when EMS was there but answers questions appropriately in the ED. She is somewhat tired and sluggish but will wake up and answer questions. There was concern by her and family that maybe she had an absence seizure while she was in the ED she had a staring episode and then was having difficulty with her words, unclear if this was seizure related or from bradycardia and hypotension causing transient loss of consciousness. At present patient reports she still feels little bit short of breath, no chest pain or headache, did note earlier her vision felt like it was fading in and out and that was something she had not experienced recently. [facility] Medical History (Updated 01/29/25 @ 18:35 by Cindy Moreau) Allergic rhinitis Anxiety Asthma Bradycardia Chronic migraine COPD (chronic obstructive pulmonary disease) COVID-19 virus infection Demyelinating disease of central nervous system Depression Diabetes mellitus, type 2 Epilepsy Former smoker Former tobacco use Gastroenteritis Generalized weakness GERD (gastroesophageal reflux disease) History of CVA (cerebrovascular accident) HTN (hypertension) Hypercholesterolemia Migraines Multiple falls Multiple sclerosis Obesity Orthostasis Psoriasis Recurrent falls Recurrent syncope Seizure disorder Seizures Home Medications ?Medication ?Instructions ?Recorded ?Last Taken ?Type albuterol sulfate 90 mcg/actuation 2 puff inhalation Q 4H PRN Wheezing 09/03/22 01/29/25 History aerosol inhaler insulin syr/ndl U100 half shirley 0.5 09/03/22 Unknown H istory mL 31 gauge x 5/16 (Droplet Insulin Syringe (half unit)) dextromethorphan 20 mg-quinidine 1 cap PO BID DEPRESSI ON 02/06/23 01/29/25 History 10 mg capsule (Nuedexta) insulin lispro 100 unit/mL 3 unit subcut .COMPLEX DIAB ETES 09/04/23 09/04/23 History subcutaneous solution meclizine 25 mg tablet 25 mg PO DAILY PRN vertigo 0 09/04/23 09/04/23 History nystatin 100,000 unit/gram topical 1 applic topical BI D RASH 09/04/23 01/28/25 History powder (Nyamyc) Lactobacillus rhamnosus GG 10 1 cap PO DAILY recurrent uti 05/09/24 01/29/25 History billion cell capsule (Culturelle) ascorbic acid (vitamin C) 500 mg 500 mg PO QDAY see pc p 05/09/24 01/29/25 History tablet cranberry fruit 450 mg tablet 450 mg PO TID see pcp 01/29/25 History hydrocodone-acetaminophen 5-325mg 1 tab PO BID pain 01/29/25 History 5mg-325mg atorvastatin 80 mg tablet 80 mg PO QHS cholesterol #90 tabs 10/30/24 01/28/25 Rx cephalexin 250 mg capsule 250 mg PO QHS recurrent UTI #90 10/30/24 01/28/25 Rx caps flash glucose scanning reader #1 ea 10/30/24 Unknown R x (FreeStyle Es 2 [place]) flash glucose sensor (FreeStyle #3 ea 10/30/24 Unknown Rx Es 2 Sensor kit) handicap placard #1 ea 11/15/24 Unknown Rx fluticasone furoate 200 1 inh inhalation DAILY copd #30 ea 11/20/24 01/29/25 Rx mcg/actuation blister powder for inhalation (Arnuity Ellipta) mirtazapine 15 mg tablet 30 mg PO QHS sleep 12/14/24 01/28/25 History omeprazole 40 mg capsule,delayed 40 mg PO DAILY GERD # 90 caps 01/03/25 01/29/25 Rx release cenobamate 200 mg tablet (Xcopri) 200 mg PO QDAY #30 t abs 01/08/25 01/29/25 Rx gabapentin 800 mg tablet 800 mg PO QHS nerve pain #30 tabs 01/08/25 01/28/25 Rx ibuprofen 600 mg tablet 600 mg PO TID PRN headache/p ain 01/08/25 01/29/25 Rx #90 tabs levocarnitine 330 mg tablet 330 mg PO BID elevated amm onia #60 01/08/25 01/29/25 Rx tabs promethazine 12.5 mg tablet 12.5 mg PO TID PRN nausea and 01/08/25 Unknown Rx vomiting #90 tabs ubrogepant 100 mg tablet (Ubrelvy) 100 mg PO .COMPLEX MIGRAINE #14 01/08/25 Unknown Rx tabs diphenhydramine HCl 25 mg capsule 50 mg PO QHS sleep 0 01/19/25 01/28/25 History (Allergy (diphenhydramine)) gabapentin 300 mg capsule 300 mg PO BID pain 01/19/25 01/29/25 History galcanezumab-gnlm 120 mg/mL 120 mg subcut QMONTH migra kendal 01/19/25 01/09/25 History subcutaneous pen injector (Emgality Pen) melatonin 10 mg capsule 10 mg PO QHS sleep 01/19/25 01/28/25 History semaglutide 0.25 mg or 0.5 mg (2 0.25 mg subcut QWEEK diabetes 01/19/25 01/28/25 History mg/3 mL) subcutaneous pen injector (Ozempic) tizanidine 2 mg tablet 2 mg PO TID for muscle spasm 01/19/25 01/29/25 History topiramate 25 mg tablet 25 mg PO BID seizures 01/29/25 History carbamazepine 200 mg tablet 200 mg PO TIDCM seizures # 1 TAB 01/24/25 01/29/25 Rx (Tegretol) insulin glargine 100 unit/mL (3 30 unit (0.3 mL) subcu t QAM 01/24/25 01/29/25 Rx mL) subcutaneous pen diabetes #1 mL Allergy/AdvReac Type Severity Reaction Status Date / Time adhesive tape Allergy Intermediate Rash Verified 01/08/25 08:39 latex Allergy Rash Verified 01/08/25 08:39 levofloxacin (From Levaquin) Allergy Hives Verified 01/08/25 08:39 ondansetron (From Zofran) Allergy Hives Verified 01/08/25 08:39 nalbuphine (From Nubain) AdvReac Other Verified 01/08/25 08:39 Family History Father Hypertension Hyperlipidemia Asthma Colon cancer Mother Cancer lung Aunt Breast cancer Aunt Breast cancer Grandmother Cancer ovarian Grandfather Cancer prostate Grandmother Cancer Uncle Hypertension Aunt Hypertension Sister Hypertension Asthma Surgical History History of appendectomy Hx of cholecystectomy Hx of tonsillectomy Hx of tubal ligation Social History household members: none 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 Smoking Status: Former smoker quit date: 07/12/21 pack-years: 10 alcohol intake: never substance use type: does not use do you feel safe at home: Yes ROS ROS Narrative General: Denies fever/chills HENT: Denies headache, denies stuffy nose, denies sore throat EYES: Has had some fading in and out of vision Resp: Denies cough, has felt a little short of breath today Cardiac: Denies chest pain GI: Denies abdominal pain, denies changes in bowel, denies nausea/vomiting : Denies changes in urination Extremity: Maybe some swelling in lower extremities MSK: Feels generally weak Neuro: Chronic neuropathy Heme: Denies any bleeding or bruising Skin: Reportedly some chronic dusky appearance in hands Psychiatric: No complaints voiced Vital Signs Vital Signs Vital Signs: 01/29/25 17:41 01/29/25 17:47 01/29/25 17:47 Temperature 97.5 F L Temperature Source Oral Pulse Rate 36 L Respiratory Rate 16 Respiratory Effort Normal Non-Labored Respiratory Pattern Blood Pressure 114/79 Blood Pressure Mean 90 Pulse Ox 98 Oxygen Delivery Method Room Air Oxygen Flow Rate (L/min) 01/29/25 17:47 01/29/25 17:59 01/29/25 18:10 Temperature Temperature Source Pulse Rate 44 L Respiratory Rate 16 Respiratory Effort Normal Non-Labored Respiratory Pattern Normal Blood Pressure 107/75 Blood Pressure Mean 85 Pulse Ox 100 100 Oxygen Delivery Method Room Air Nasal Cannula Oxygen Flow Rate (L/min) 2 01/29/25 18:30 01/29/25 19:29 01/29/25 19:51 Temperature Temperature Source Pulse Rate 40 L 33 L 38 L Respiratory Rate 16 16 16 Respiratory Effort Respiratory Pattern Blood Pressure 116/80 110/58 L 102/59 L Blood Pressure Mean 92 75 73 Pulse Ox 100 100 100 Oxygen Delivery Method Nasal Cannula Nasal Cannula Nasal Cannula Oxygen Flow Rate (L/min) 2 2 2 Weight Weight: 99.1 kg Body Mass Index (BMI) 35.1 Physical Exam Narrative General: Patient sleeping and was difficult to arouse at first however woke up and began answering questions HEENT: Atraumatic, dry oral mucosa Eyes: Anicteric, somewhat difficult time keeping eyelids open Neck: Supple Respiratory: Somewhat diminished at the bases, normal respiratory effort Cardiovascular: Bradycardic GI: Soft, nontender, nondistended Extremities: Trace lower extremity edema Musculoskeletal: Moving all extremities Neuro: No overt focal neurological deficits, does seem to be slurring words slightly Skin: Has almost dusky appearance of hands which is not new Psych: Cooperative Results Lab / Micro Data 01/29/25 17:50 01/29/25 17:50 Labs: Laboratory Results - last 24 hr 01/29/25 17:50: WBC 5.8, RBC 3.26 L, Hgb 10.1 L, Hct 31.6 L, MCV 96.9, MCH 31.0, MCHC 32.0, RDW Std Deviation 49.5 H, RDW Coeff of He 14.0, Plt Count 201, MPV 11.1, Immature Gran % (Auto) 0.300, Neut % (Auto) 61.1, Lymph % (Auto) 25.0, M ivory % (Auto) 10.8 H, Eos % (Auto) 2.1, Baso % (Auto) 0.7, Absolute Neuts (auto) 3.6, Absolute Lymphs (auto) 1.46, Nucleated RBC % 0, PT 13.5, INR 1.0, APTT 26.8, Sodium 137, Potassium 4.9, Chloride 106, Carbon Dioxide 18.0 L, Anion Gap 13, BUN 22 H, Creatinine 1.01, Estim Creat Clear Calc 72.10, Est GFR (MDRD) Non- Af 65, BUN/Creatinine Ratio 21.7 H, Glucose 186 H, Calcium 9.0, Troponin T High Sens 19 H, TSH 2.610 01/29/25 17:52: POC Glucose 179 H Rhythm Strip Rhythm Strip: Sinus bradycardia Rate: 35 Imaging Radiology Impression Chest X-Ray 01/29/25 18:05 IMPRESSION: Cardiomegaly with mild vascular congestion. No sizable pleural effusion. Reading Location: [facility] Assessment & Plan Assessment/Plan (1) Syncope: (2) Symptomatic bradycardia: PLAN: Plan # Syncope secondary to symptomatic bradycardia -Patient notes heart rate of 20 at home, had evidence of hypoperfusion with increase in creatinine and loss of consciousness - Discussed with cardiology, patient has received atropine x 2 with heart rate going back into the 30s, chronically stays low in the 40s however now has evidence of decreased perfusion given the worsening kidney function, lactic acid was ordered as well - He was advised to start dopamine to maintain heart rate around 45 and to make patient n.p.o. at midnight for possible pacemaker placement - Patient to be admitted to the ICU on dopamine drip # DIANE -Baseline creatinine 0.67, creatinine up to 1.01 which is a relative DIANE - Suspect secondary to hypoperfusion - Started on dopamine to help heart rate and therefore blood pressure and improve perfusion #Hx seizure disorder -Reports history of epilepsy but also absence seizure's - Continue home Tegretol - Patient and family member voiced concern that she may have had absence seizure while in the ED, query if that may have been another transient loss of consciousness due to bradycardia and hypotension - Continue home medications and treat bradycardia as above - Will place order for as needed Ativan in the event patient would have any epileptic seizures necessitating abortive therapy # History of urinary retention -Reportedly patient unable to urinate anywhere other than home and has required Ramirez catheters previously during admission, will place Ramirez catheter can be DC'd on discharge to avoid urinary retention # History of depression -Patient previously was on Cymbalta, it appears this was held on admission last time due to hyponatremia, patient has been significantly struggling after this medication was suddenly discontinued, will start back but at 30 mg I can uptitrate back to home dose as tolerated or switch to alternative agent if any adverse effects arise #Hx demyelinating disorder -Being worked up for MS, continue outpatient follow-up #Hx COPD -Continue home inhalers -Incentive spirometer #GERD -Continue PPI #Type 2 diabetes mellitus -Glucose checks and sliding scale insulin - Will decrease long-acting insulin given patient is going to be n.p.o., can uptitrate as glucose tolerates #DVT ppx: SCDs Arianne Jefferson MD Time spent in the patient's overall evaluation, decision-making process, review of diagnostic data, adjustment of management, discussion with other providers, nursing and ancillary staff involved in patient's care documentation, 82 minutes Charges/Coding Visit Charges Inpatient E&M: 55340 Init Hosp L2
[2025-01-29] MEDS: DOPamine IV 800 MG/250 ML IV.SOLN. 9.3 MG CONT INF (20:25)
[2025-01-29] MEDS: Ketorolac 30 MG/ML Syringe IV (21:19)
[2025-01-29 21:54] LABS: Troponin T High Sens 2 HR 14 ng/L (<=14)
[2025-01-29] MEDS: MELATONIN 10 MG TABLET PO (23:18)
[2025-01-29] MEDS: HYDROcodone Bitartrate/Apap 5/325 Tablet PO (23:22)
[2025-01-30] VITALS (38 sets, daily range): BP systolic 95–171; BP diastolic 43–109; PULSE 39–65; RESP 10–20; TEMP 36.1–36.8; O2SAT 92–100; BMI 34.2
[2025-01-30 00:44] LABS: Troponin T High Sens 4 HR 13 ng/L (<=14)
[2025-01-30] MEDS: TITRATION PARAMETER CHANGE 1 EACH IV (05:37)
[2025-01-30] MEDS: Budesonide Respules 0.5 MG/2 ML AMPUL.NEB. INHALATION ×2 (07:27→19:51)
--- NOTE | 2025-01-30 08:27 | PCM.CONS.C ---
Assessment & Plan Assessment/Plan (1) Symptomatic bradycardia: PLAN: Patient Shey presented to the emergency room yesterday with symptomatic bradycardia in the 35 bpm range. ECG showed junctional rhythm at 35 bpm with a left anterior fascicular block and right bundle branch block. The patient was hypotensive she responded to IV dopamine and atropine. Heart rate now on dopamine infusion is 50 bpm and junctional rhythm blood pressure is well-controlled in the 130 systolic range. Yesterday right after admission nursing staff witnessed what appeared to be an absence seizure when the patient's heart rate was 35-40. Prior to this admission the patient had been able to recognize when she was lightheaded in the home environment she would sit down and she would notice that her heart rate would respond and come up. That did not happen yesterday. The patient's vital signs are now stable she is afebrile CBC shows a normal white count there is no evidence of obvious infection. Patient's last echocardiogram was back in 2023 which showed a normal EF of 65%. Repeat echocardiogram has been ordered. Given the patient's recurrence of this bradycardia now symptomatic I recommend the patient be considered for permanent pacemaker implantation. Will discuss with the EP service today. (2) Epilepsy: QUALIFIERS: Epilepsy type: unspecified Intractability: not intractable Status epilepticus: without status epilepticus Qualified Code(s): G40.909 - Epilepsy, unspecified, not intractable, without status epilepticus PLAN: It is possible that some of the seizures are related to her bradycardia and transient hypotension. The patient did have an EEG done earlier this month PLAN: Plan 1. Recommend permanent pacemaker implantation. 2. Continue dopamine for vital sign control. 3. Will arrange for permanent pacemaker implantation in the next 24 hours. HPI Consult Data Date of Consult: 01/30/25 HPI Narrative Reason for Consultation: Bradycardia and hypotension. HPI Narrative: FAM VINSON, is a 59 F who presents with a history of recurrent bradycardia. Her heart rate was documented at 25 and her home environment it was 30?35 in the emergency department with blood pressure in the 60?80 systolic range. The patient was able to communicate and was given atropine with the heart rate increasing to 35-40. Blood pressure was 100 systolic patient's creatinine went up from 0.7-1.0 over the last 3 weeks. Lactic acid was normal. The patient was placed on dopamine with increasing blood pressures and heart rate up to 50 bpm. The rhythm remained junctional. Currently the patient is alert and awake she carries on a normal conversation. It was observed yesterday by the nursing staff an absence Type Seizure with a Heart Rate of 35. Patient carries a history of seizure she did have an EEG done on her last admission in early January 2025. She also has a history of demyelinating disease presumed to be multiple sclerosis. Her last admission was due to acute hyponatremia on January 20. During that timeframe she was on multiple neurologic epileptic therapies these were adjusted and her heart rate seemed to improve at times she actually became normal sinus rhythm at 70 bpm. The patient's underlying ECG has chronically shown a right bundle branch block and left anterior fascicular block. ECG on admission this time shows a junctional rhythm at 35 with a left anterior fascicular block and right bundle branch block. Currently on telemetry she is in a junctional rhythm at 50 bpm on dopamine at 5 mics per KG per minute. [facility] Medical History (Updated 01/29/25 @ 18:35 by iCndy Moreau) Former smoker Asthma Seizures Multiple sclerosis Demyelinating disease of central nervous system Epilepsy Generalized weakness Recurrent falls Recurrent syncope Anxiety Depression COPD (chronic obstructive pulmonary disease) Migraines Multiple falls Gastroenteritis Diabetes mellitus, type 2 History of CVA (cerebrovascular accident) GERD (gastroesophageal reflux disease) Obesity Former tobacco use Seizure disorder Allergic rhinitis Chronic migraine Orthostasis HTN (hypertension) COVID-19 virus infection Bradycardia Psoriasis Hypercholesterolemia Home Medications ?Medication ?Instructions ?Recorded ?Last Taken ?Type albuterol sulfate 90 mcg/actuation 2 puff inhalation Q4H PRN Wheezing 09/03/22 01/29/25 History aerosol inhaler insulin syr/ndl U100 half shirley 0.5 09/03/22 Unknown History mL 31 gauge x 5/16 (Droplet Insulin Syringe (half unit)) dextromethorphan 20 mg-quinidine 1 cap PO BID DEPRESSION 02/06/23 01/29/25 History 10 mg capsule (Nuedexta) insulin lispro 100 unit/mL 3 unit subcut .COMPLEX DIABETES 09/04/23 09/04/23 History subcutaneous solution meclizine 25 mg tablet 25 mg PO DAILY PRN vertigo 09/04/23 09/04/23 History nystatin 100,000 unit/gram topical 1 applic topical BID RASH 09/04/23 01/28/25 History powder (Nyamyc) Lactobacillus rhamnosus GG 10 1 cap PO DAILY recurrent uti 05/09/24 01/29/25 History billion cell capsule (Culturelle) ascorbic acid (vitamin C) 500 mg 500 mg PO QDAY see pcp 05/09/24 01/29/25 History tablet cranberry fruit 450 mg tablet 450 mg PO TID see pcp 05/09/24 01/29/25 History hydrocodone-acetaminophen 5-325mg 1 tab PO BID pain 09/11/24 01/29/25 History 5mg-325mg atorvastatin 80 mg tablet 80 mg PO QHS cholesterol #90 tabs 10/30/24 01/28/25 Rx cephalexin 250 mg capsule 250 mg PO QHS recurrent UTI #90 10/30/24 01/28/25 Rx caps flash glucose scanning reader #1 ea 10/30/24 Unknown Rx (FreeStyle Es 2 [place]wood) flash glucose sensor (FreeStyle #3 ea 10/30/24 Unknown Rx Es 2 Sensor kit) handicap placard #1 ea 11/15/24 Unknown Rx fluticasone furoate 200 1 inh inhalation DAILY copd #30 ea 11/20/24 01/29/25 Rx mcg/actuation blister powder for inhalation (Arnuity Ellipta) mirtazapine 15 mg tablet 30 mg PO QHS sleep 12/14/24 01/28/25 History omeprazole 40 mg capsule,delayed 40 mg PO DAILY GERD #90 caps 01/03/25 01/29/25 Rx release cenobamate 200 mg tablet (Xcopri) 200 mg PO QDAY #30 tabs 01/08/25 01/29/25 Rx gabapentin 800 mg tablet 800 mg PO QHS nerve pain #30 tabs 01/08/25 01/28/25 Rx ibuprofen 600 mg tablet 600 mg PO TID PRN headache/pain 01/08/25 01/29/25 Rx #90 tabs levocarnitine 330 mg tablet 330 mg PO BID elevated ammonia #60 01/08/25 01/29/25 Rx tabs promethazine 12.5 mg tablet 12.5 mg PO TID PRN nausea and 01/08/25 Unknown Rx vomiting #90 tabs ubrogepant 100 mg tablet (Ubrelvy) 100 mg PO .COMPLEX MIGRAINE #14 01/08/25 Unknown Rx tabs diphenhydramine HCl 25 mg capsule 50 mg PO QHS sleep 01/19/25 01/28/25 History (Allergy (diphenhydramine)) gabapentin 300 mg capsule 300 mg PO BID pain 01/19/25 01/29/25 History galcanezumab-gnlm 120 mg/mL 120 mg subcut QMONTH migraines 01/19/25 01/09/25 History subcutaneous pen injector (Emgality Pen) melatonin 10 mg capsule 10 mg PO QHS sleep 01/19/25 01/28/25 History semaglutide 0.25 mg or 0.5 mg (2 0.25 mg subcut QWEEK diabetes 01/19/25 01/28/25 History mg/3 mL) subcutaneous pen injector (Ozempic) tizanidine 2 mg tablet 2 mg PO TID for muscle spasm 01/19/25 01/29/25 History topiramate 25 mg tablet 25 mg PO BID seizures 01/19/25 01/29/25 History carbamazepine 200 mg tablet 200 mg PO TIDCM seizures #1 TAB 01/24/25 01/29/25 Rx (Tegretol) insulin glargine 100 unit/mL (3 30 unit (0.3 mL) subcut QAM 01/24/25 01/29/25 Rx mL) subcutaneous pen diabetes #1 mL Allergy/AdvReac Type Severity Reaction Status Date / Time adhesive tape Allergy Intermediate Rash Verified 01/08/25 08:39 latex Allergy Rash Verified 01/08/25 08:39 levofloxacin (From Levaquin) Allergy Hives Verified 01/08/25 08:39 ondansetron (From Zofran) Allergy Hives Verified 01/08/25 08:39 nalbuphine (From Nubain) AdvReac Other Verified 01/08/25 08:39 Family History Father Hypertension Hyperlipidemia Asthma Colon cancer Mother Cancer lung Aunt Breast cancer Aunt Breast cancer Grandmother Cancer ovarian Grandfather Cancer prostate Grandmother Cancer Uncle Hypertension Aunt Hypertension Sister Hypertension Asthma Surgical History History of appendectomy Hx of tubal ligation Hx of tonsillectomy Hx of cholecystectomy Social History household members: none 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 Smoking Status: Former smoker quit date: 07/12/21 pack-years: 10 alcohol intake: never substance use type: does not use do you feel safe at home: Yes ROS Constitutional Constitutional: Reports as per HPI Eyes Eyes: Reports systems reviewed and no addt'l complaints, except as documented ENT HEENT: Reports systems reviewed and no addt'l complaints, except as documented Cardiovascular Cardiovascular: Reports as per HPI Respiratory/Chest Respiratory/Chest: Reports as per HPI Gastrointestinal Gastrointestinal: Reports systems reviewed and no addt'l complaints, except as documented Genitourinary Genitourinary: Reports as per HPI Musculoskeletal Musculoskeletal: Reports systems reviewed and no addt'l complaints, except as documented Integumentary Integumentary: Reports systems reviewed and no addt'l complaints, except as documented Neurologic Neurologic: Reports as per HPI Psychiatric Psychiatric: Reports systems reviewed and no addt'l complaints, except as documented Endocrine Endocrinology: Reports systems reviewed and no addt'l complaints, except as documented Hematologic/Lymphatic Hematologic/Lymphatic: Reports as per HPI Allergic/Immunologic Allergic/Immunologic: Reports systems reviewed and no addt'l complaints, except as documented Physical Exam Const alert and oriented x3 HEENT normocephalic Eyes EOMs intact bilaterally Neck no JVD Neck Narrative: Thick neck Chest inspection of chest normal Resp normal respiratory effort and clear to auscultation bilaterally Cardio Rate: bradycardia Rhythm: regular rhythm Heart Sounds: S1 normal and S2 normal; Negative for click, gallop or murmur GI GI Narrative: Obese Extremity General Extremity: edema bilateral lower extremity Details: trace Neuro Neuro Narrative: Alert and oriented x 3 Psych mental status grossly normal Risk Stratification Risk Stratification Applicable: No Charges/Coding Visit Charges Inpatient E&M: 48462 Init Hosp L3 Objective Data Vital Signs: Vital Signs Temp Pulse Resp BP Pulse Ox O2 Del Method O2 Flow Rate 98.1 F 46 L 15 120/71 92 Room Air 2 01/30/25 06:23 01/30/25 07:28 01/30/25 07:28 01/30/25 06:23 01/30/25 07:28 01/30/25 07:28 01/30/25 06:23 Oxygen Flow Rate (L/min) 2 Oxygen Delivery Method Room Air Weight: 212 lb 1.355 oz Body Mass Index (BMI) 34.2 Intake & Output: Intake and Output for Last 24 Hours 01/28/25 01/29/25 01/30/25 23:59 23:59 23:59 Intake Total 1025.55 / 1034.85 89.41 / 89.41 Output Total 350 / 800 1050 / 1050 Balance 675.55 / 234.85 -960.59 / -960.59 Lab / Micro Data Attestation: I reviewed the patient's lab results. 01/29/25 17:50 01/29/25 17:50 Labs: Laboratory Results - last 24 hr 01/29/25 17:50: WBC 5.8, RBC 3.26 L, Hgb 10.1 L, Hct 31.6 L, MCV 96.9, MCH 31.0, MCHC 32.0, RDW Std Deviation 49.5 H, RDW Coeff of He 14.0, Plt Count 201, MPV 11.1, Immature Gran % (Auto) 0.300, Neut % (Auto) 61.1, Lymph % (Auto) 25.0, Caldwell % (Auto) 10.8 H, Eos % (Auto) 2.1, Baso % (Auto) 0.7, Absolute Neuts (auto) 3.6, Absolute Lymphs (auto) 1.46, Nucleated RBC % 0, PT 13.5, INR 1.0, APTT 26.8, Sodium 137, Potassium 4.9, Chloride 106, Carbon Dioxide 18.0 L, Anion Gap 13, BUN 22 H, Creatinine 1.01, Estim Creat Clear Calc 72.10, Est GFR (MDRD) Non-Af 65, BUN/Creatinine Ratio 21.7 H, Glucose 186 H, Calcium 9.0, Troponin T High Sens 19 H, TSH 2.610 01/29/25 17:52: POC Glucose 179 H 01/29/25 21:03: Lactic Acid 1.0, Troponin T Hi Sens 2 Hr 14 01/29/25 22:10: POC Glucose 119 H 01/29/25 23:58: Troponin T Hi Sens 4Hr 13 Rhythm Strip Rhythm Strip: junctional Rate: 50 Cardiology Labs/Tests 01/29/25 17:50: WBC 5.8, RBC 3.26 L, Hgb 10.1 L, Hct 31.6 L, MCV 96.9, MCH 31.0, MCHC 32.0, Plt Count 201, MPV 11.1, Immature Gran % (Auto) 0.300, Neut % (Auto) 61.1, Lymph % (Auto) 25.0, Caldwell % (Auto) 10.8 H, Eos % (Auto) 2.1, Baso % (Auto) 0.7, Absolute Neuts (auto) 3.6, Nucleated RBC % 0, PT 13.5, INR 1.0, APTT 26.8, Sodium 137, Potassium 4.9, Chloride 106, Carbon Dioxide 18.0 L, Anion Gap 13, BUN 22 H, Creatinine 1.01, Est GFR (MDRD) Non-Af 65, BUN/Creatinine Ratio 21.7 H, Glucose 186 H, Calcium 9.0 01/29/25 21:03: Lactic Acid 1.0 Rhythm: EKG: ECHO: Stress Test: Cardiac Cath: PCI: CT Surgery: Holter monitor: EPS: PPM: CXR: Chest CT Scan: Radiography Diagnostic Testing: Radiology Impression Chest X-Ray 01/29/25 18:05 IMPRESSION: Cardiomegaly with mild vascular congestion. No sizable pleural effusion. Reading Location: [id number]
--- NOTE | 2025-01-30 08:43 | ECHOD_ITS ---
Reason For Study Reason For Study: Arrhythmia Procedure This was a 2D Doppler, Color Flow transthoracic echocardiogram. Exam performed portable in ICU/CCU. Left Ventricle Normal LV size. Left ventricular systolic function is normal. The left ventricular ejection fraction is 70 %. No regional wall motion abnormalities noted. Right Ventricle Normal RV size. Normal systolic function. Atria Normal left atrium. Normal right atrium. Mitral Valve There is mild mitral annular calcification. Mild (1+) eccentric mitral valve insufficiency. Tricuspid Valve Normal tricuspid valve. Mild to moderate (1-2+) tricuspid valve insufficiency. Pulmonary artery systolic pressure is 50 mmHg. Moderate pulmonary hypertension. Aortic Valve Trisinus/trileaflet aortic valve. Mild focal aortic valve calcification. Pulmonic Valve Normal pulmonic valve. Great Vessels Normal aortic root. The pulmonary artery is normal size. Inferior vena cava collapse with respiration. Pericardium/Pleural No pericardial effusion. MMode/2D Measurements & Calculations LVIDd: 4.3 cm IVSd: 1.2 cm Ao root diam: 2.9 cm LVIDs: 2.7 cm LVPWd: 1.1 cm RVDd: 4.1 cm FS: 37.6 % LAV(MOD-bp): 59.5 ml LVAd ap4: 20.4 cm2 SV(MOD-sp4): 41.8 ml LAV(MOD-bp) Indexed: 28.6 ml/m2 LVLd ap4: 6.1 cm SI(MOD-sp4): 20.1 ml/m2 LAV(MOD-sp2): 51.6 ml EDV(MOD-sp4): 55.7 ml LAV(MOD-sp4): 58.2 ml EDV(sp4-el): 57.9 ml LVAs ap4: 9.0 cm2 LVLs ap4: 5.1 cm ESV(MOD-sp4): 13.9 ml ESV(sp4-el): 13.6 ml EF(MOD-sp4): 75.1 % EF(sp4-el): 76.5 % SV(sp4-el): 44.3 ml LA A4 area: 20.7 cm2 LA dimension(2D): 4.7 cm RA A4 area: 15.6 cm2 TAPSE: 1.7 cm Time Measurements MV dec time: 0.23 sec Doppler Measurements & Calculations MV E max sajan: 107.2 cm/sec Lat Peak E' Sajan: 11.0 cm/sec Med Peak E' Sajan: 7.6 cm/sec MV A max sajan: 21.6 cm/sec E/E' lat: 9.8 E/E' med: 14.1 MV E/A: 5.0 Ao V2 max: 164.0 cm/sec LV V1 max: 116.5 cm/sec MV dec slope: 460.9 cm/sec2 Ao max P.8 mmHg LV V1 max P.4 mmHg Ao V2 mean: 110.7 cm/sec Ao mean P.6 mmHg Ao V2 VTI: 34.7 cm PA V2 max: 84.9 cm/sec PI end-d sajan: 78.6 cm/sec TR max sajan: 344.6 cm/sec TR max P.5 mmHg ECHO/Echo Complete Interpretation Summary Normal LV size. Left ventricular systolic function is normal. The left ventricular ejection fraction is 70 %. Mild (1+) eccentric mitral valve insufficiency. Pulmonary artery systolic pressure is 50 mmHg. Moderate pulmonary hypertension. Ordering Physician: Pelon Valero Referring Physician: Riddhi Simpson Performed By: Debbie Camilo, RDCS, RVT
[2025-01-30] MEDS: HYDROcodone Bitartrate/Apap 5/325 Tablet PO ×2 (08:44→22:34)
[2025-01-30 08:56] LABS: Hematocrit 37.4 % (37-47); Hemoglobin 11.8 g/dL (12.0-15.0); Immature Granulocytes Count 0.050 X10^3/uL (0.0-0.0); Mean Corp Hgb Conc 31.6 g/dL (32-36); Mean Corpuscular Volume 94.7 fL (81-99); Mean Platelet Vol. 10.7 fl (6.2-12.0); NRBC Flagged by Analyzer 0 % (0-5); Platelet Count 309 K/mm3 (150-450); RBC Distribution Width CV 14.0 % (11.6-14.6); RBC Distribution Width SD 48.6 fl (35.1-43.9); Red Blood Count 3.95 M/mm3 (4.2-5.4); White Blood Count 10.7 K/mm3 (4.4-11.0)
[2025-01-30 09:18] LABS: Anion Gap 13 (5-15); BUN 20 mg/dL (4-19); BUN/Creat Ratio 24.0 RATIO (10-20); Calcium,Total 9.4 mg/dL (7.6-11.0); Carbon Dioxide 19.7 mmol/L (21.0-32.0); Chloride 109 mmol/L (98-108); Estimated Creatinine Clearance 84.35 ml/min (50-250); Glucose 196 mg/dL (70-99); Potassium 5.0 mmol/L (3.3-5.1)
--- NOTE | 2025-01-30 11:47 | CASEMGMT ---
RN CM Readmission Chart Review Index: 01/19-. Dx: Hyponatremia, Seizure Current: 01/29/25. Dx: Syncope, Bradycardia From the index admission, the patient was discharged home with her sister, and outpatient therapy established through [facility]. Patient re-presents to [facility] ER with syncope and bradycardia. RN CM to the patient room at this time. Patient is sitting up comfortably in the bed and is A&Ox4. The patient states that she was taking all of her prescription medications as ordered. Patient states that she was also caring for her diabetes accordingly. Patient states that she checks her blood sugar levels AC & HS. The patient states that she takes insulin shots and has plenty of pen needles. Patient states that she has a continuous blood glucose monitor to check her blood sugar levels. Patient also states that she has a backup glucometer to manually check her blood sugar levels if needed. The patient states that there was not enough time in between admissions for a follow-up appointment with [facility]. The patient also states that her follow-up appointment with her PCP is scheduled for February 16. The patient states that her follow-up appointment with her neurologist is in one week. The patient states that she did not go to [facility] in between admissions, as there were only five days in between admissions. However, the patient states that she does plan to utilize the outpatient therapy prescription and states that she has already called [facility] to reschedule her appointments. The patient states that her 30-day cardiac event recorder still has not been delivered to the home. The patient states that she was in contact with the heart group as well as the company that delivers the monitors out of [place] ([employer]), which states that the recorder will be getting shipped to the patient?s home soon. Per chart review, the patient has an RN CM through the [facility] Waiver program (Leticia) @ [phone]. The patient states that she has private duty aid as well as a medical alert system. Telephone call to the support group manager at this time. No answer. Voice message left. The patient also reports that she has financial planning assistant through her insurance for food and groceries, as well as utility bills. The patient reports that she has tremendous support through her sister, who helps care for her medication management and vital sign monitoring. Moving forward, cardiology reports that the patient will be getting a permanent pacemaker placed today. Per ICU rounds, physical therapy will be held today. Current 6-click score is 18. Ultimately, the patient wishes to be discharged back home with her sister's support once medically ready. The patient denies any home healthcare needs at this time and states that she prefers to continue outpatient physical therapy through [facility]. Patient denies any further questions or concerns at this time. Care management to follow. Lukas THEODORE RN CM
--- NOTE | 2025-01-30 12:22 | RAD_ITS ---
EXAM: XR Chest, 1 View CLINICAL INDICATION: PICC LINE PLACEMENT TECHNIQUE: Frontal view of the chest. COMPARISON: No relevant prior studies available. FINDINGS: LUNGS AND PLEURAL SPACES: See below. HEART: Unremarkable. No cardiomegaly. MEDIASTINUM: Unremarkable. Normal mediastinal contour. BONES/JOINTS: Unremarkable. No acute fracture. TUBES, LINES AND DEVICES: Status post left-sided PICC line with distal tip in the mid SVC. No pneumothorax. RAD/CXR for Line Placement IMPRESSION: Status post left-sided PICC line with distal tip in the mid SVC. No pneumothor ax. Reading [facility]
[2025-01-30] MEDS: DOPamine IV 800 MG/250 ML IV.SOLN. 18.6 MG CONT INF (12:36)
--- NOTE | 2025-01-30 12:42 | EKG12_ITS ---
Test Reason : ARRHYTHMIA Blood Pressure : */* mmHG Vent. Rate : 54 BPM Atrial Rate : 54 BPM P-R Int : * ms QRS Dur : 142 ms QT Int : 462 ms P-R-T Axes : * -50 18 degrees QTcB Int : 438 ms Junctional rhythm with PVC's in bigeminy Right bundle branch block Left anterior fascicular block Bifascicular block Abnormal ECG When compared with ECG of 29-Jan-2025 17:41, MANUAL COMPARISON REQUIRED DATA IS UNCONFIRMED Confirmed by Pelon Valero ([id number]), editor in chief newspaper MEGAN CARPIO ([id number]) on 02/01/2025 11:50:13 AM Referred By: WIL Confirmed By: Pelon Valero
--- NOTE | 2025-01-30 16:27 | EX.PACEMAKER ---
Pacemaker Procedure Note Pacemaker Procedure Note Sheyla Soto is a 59 year old female who has a past medical history of a seizure disorder and demylenating disease, who presented to the [place] EP lab for further evaluation regarding implantation of a pacemaker for sinus arrest. The patient was brought to the electrophysiology laboratory in a fasting state. Sedation provided by nuring staff. A venogram of the right axillary vein was performed. The [facility] shoulder area was prepped and draped in the usual manner and the skin and subcutaneous tissues below the right clavicle were infiltrated with 1% lidocaine for local anesthesia. The skin was sharply incised. Electrocautery and blunt dissection were carried out to the level of the pectoralis fascia and extended inferomedially to create a pocket for the pulse generator. Access to the right axillary vein was obtained x2 with a cook needle using real-time fluoroscopic guidance. 2 guide wires were advanced to the right atrium and peel-away introducer sheaths were used to insert the leads. The right ventricular lead was placed in the RV apical septum. The right atrial lead was placed in the right atrial appendage. The leads were tested with a pacing systems analyzer and the results are noted above. The leads were then anchored in place with silk sutures around their suture sleeve and connected to the pulse generator. The device was noted to function appropriately. The pocket was noted to have an absence of active bleeding. The pulse generator was placed in the pocket and sutured to the pre-pectoral fascia. The pocket was then irrigated with antibiotic solution. The incision was closed with two layers of 2-0 Vicryl and a subcuticular closure of 4-0 Vicryl. The incision was dressed with Aquacel. . Conclusions Successful implantation of dual chamber pacemaker with adequate pacing threshold, sensing and lead impedance. Recommendations 1. Routine follow-up in the device clinic. 2. Aquacell to remain on for 1 week 3. Device follow up as scheduled. 4. Hold anticoagulation for 24 hours (No heparin IV or NOAC, ok to continue warfarin). 5. Further recommendations per the cardiology team.
--- NOTE | 2025-01-30 18:49 | PCM.PN.HOSP ---
Reason for Visit Chief Complaint: Syncopal episode secondary bradycardia Subjective Subjective Patient was seen and examined today, she had a pacemaker inserted today for sinoatrial node dysfunction/sick sinus syndrome. Objective Data Objective Data Vital Signs: Vital Signs Temp Pulse Resp BP Pulse Ox O2 Del Method O2 Flow Rate 98.2 F 64 12 115/75 98 Room Air 2 01/30/25 12:36 01/30/25 18:47 01/30/25 18:47 01/30/25 18:47 01/30/25 18:47 01/30/25 18:47 01/30/25 06:23 Oxygen Flow Rate (L/min) 2 Oxygen Delivery Method Room Air Weight: 96.2 kg Body Mass Index (BMI) 34.2 Intake & Output: Intake and Output for Last 24 Hours 01/28/25 01/29/25 01/30/25 23:59 23:59 23:59 Intake Total 1025.55 / 1034.85 274.48 / 274.48 Output Total 350 / 800 2125 / 2125 Balance 675.55 / 234.85 -1850.52 / -1850.52 Lab / Micro Data 01/30/25 08:48 01/30/25 08:48 Labs: Laboratory Results - last 24 hr 01/29/25 17:52: POC Glucose 179 H 01/29/25 21:03: Lactic Acid 1.0, Troponin T Hi Sens 2 Hr 14 01/29/25 22:10: POC Glucose 119 H 01/29/25 23:58: Troponin T Hi Sens 4Hr 13 01/30/25 04:27: POC Glucose 125 H 01/30/25 08:06: POC Glucose 180 H 01/30/25 08:48: WBC 10.7, RBC 3.95 L, Hgb 11.8 L, Hct 37.4, MCV 94.7, MCH 29.9, MCHC 31.6 L, RDW Std Deviation 48.6 H, RDW Coeff of He 14.0, Plt Count 309, MPV 10.7, Immature Gran % (Auto) 0.500, Neut % (Auto) 78.9 H, Lymph % (Auto) 13.5 L, [place] % (Auto) 5.9, Eos % (Auto) 0.8, Baso % (Auto) 0.4, Absolute Neuts (auto) 8.5 H, Absolute Lymphs (auto) 1.45, Nucleated RBC % 0, Sodium 142, Potassium 5.0, Chloride 109 H, Carbon Dioxide 19.7 L, Anion Gap 13, BUN 20 H, Creatinine 0.85, Estim Creat Clear Calc 84.35, Est GFR (MDRD) Non-Af 79, BUN/Creatinine Ratio 24.0 H, Glucose 196 H, Calcium 9.4 Radiography Diagnostic Testing: Radiology Impression Echocardiogram 01/30/25 08:43 Interpretation Summary Normal LV size. Left ventricular systolic function is normal. The left ventricular ejection fraction is 70 %. Mild (1+) eccentric mitral valve insufficiency. Pulmonary artery systolic pressure is 50 mmHg. Moderate pulmonary hypertension. Ordering Physician: Pelon Valero Referring Physician: Riddhi Simpson Performed By: Debbie Camilo, RDCS, RVT Chest X-Ray 01/30/25 12:22 IMPRESSION: Status post left-sided PICC line with distal tip in the mid SVC. No pneumothorax. Reading Location: [facility] Rhythm Strip Rhythm Strip: junctional Rate: 50 Physical Exam Const alert, oriented x3, no apparent distress and healthy appearing General Appearance: cooperative, well kempt and well developed Orientation / Consciousness: awake, oriented to person, oriented to place and oriented to time HEENT normocephalic, head/scalp atraumatic and moist oral mucous membranes Eyes PERRL, EOMs intact bilaterally and conjunctivae normal Neck supple, no JVD, thyroid normal and no carotid bruits General: trachea midline Resp normal respiratory effort, no retractions, no use of accessory muscles and clear to auscultation bilaterally Auscultation: Negative for rales, rhonchi or wheezes Cardio regular rate, regular rhythm, S1 normal heart sound, S2 normal heart sound, no murmurs, no rub and no gallops GI normal to inspection, nondistended, normoactive bowel sounds, soft to palpation, non-tender and non-distended Extremity no clubbing, cyanosis or edema Skin no rashes or lesions noted General Skin Exam: no breakdown Neuro oriented x3, CN's II-XII intact bilaterally, moves all extremities, no focal motor deficits and no sensory deficits noted Sensorium / Orientation: awake and alert Speech: speech normal Psych affect normal Assessment & Plan Assessment/Plan (1) Sick sinus syndrome: PLAN: Plan 1. Sick sinus syndrome-status post pacemaker insertion-patient will remain in ICU overnight be reevaluated tomorrow morning for possible discharge home #2 type 2 diabetes-blood sugars will be monitored, patient's basal insulin was lowered #3 hyperlipidemia-patient is on a statin #4 seizure disorder-patient remains on her home medication #5 chronic pain-secondary to degenerative disc disease of the lumbar and cervical spine-patient will remain on her present medications Total clinical time spent by myself addressing the patient's medical issues, reviewing all of her data, and collaborating with the patient's care team: 35 minutes Charges/Coding Visit Charges Inpatient E&M: 24028 Subs Hosp L2
--- NOTE | 2025-01-30 19:32 | RAD_ITS ---
PROCEDURE: CHEST 1 VIEW (PORTABLE) 01/30/2025 REASON FOR EXAM: DO WITHIN 2-4 HOURS OF PROCEDURE TECHNIQUE: Frontal view of the chest. COMPARISON: None FINDINGS: Mild pulmonary vascular congestion. No focal consolidation. No pleural effusion or pneumothorax. Mild cardiomegaly. Right chest pacer. RAD/Chest 1 View (Portable) IMPRESSION: Mild pulmonary vascular congestion. No focal consolidation. Mild cardiomegaly. Reading Location: [id number]
[2025-01-30] MEDS: CENOBAMATE 200 MG TABLET PO (20:14)
[2025-01-30] MEDS: MELATONIN 10 MG TABLET PO (22:31)
[2025-01-30] MEDS: DEXTROMETHORPHAN HBR/QUINIDINE 1 EACH CAPSULE PO (22:32)
[2025-01-31] VITALS (16 sets, daily range): BP systolic 125–162; BP diastolic 55–100; PULSE 60–61; RESP 11–18; TEMP 36.4; O2SAT 95–99; BMI 34.1
[2025-01-31 04:12] LABS: Hematocrit 31.2 % (37-47); Hemoglobin 10.1 g/dL (12.0-15.0); Immature Granulocytes Count 0.020 X10^3/uL (0.0-0.0); Mean Corp Hgb Conc 32.4 g/dL (32-36); Mean Corpuscular Volume 93.7 fL (81-99); Mean Platelet Vol. 10.2 fl (6.2-12.0); NRBC Flagged by Analyzer 0 % (0-5); Platelet Count 186 K/mm3 (150-450); RBC Distribution Width CV 14.0 % (11.6-14.6); RBC Distribution Width SD 47.2 fl (35.1-43.9); Red Blood Count 3.33 M/mm3 (4.2-5.4); White Blood Count 6.0 K/mm3 (4.4-11.0)
[2025-01-31 04:28] LABS: Anion Gap 11 (5-15); BUN 17 mg/dL (4-19); BUN/Creat Ratio 22.9 RATIO (10-20); Calcium,Total 8.2 mg/dL (7.6-11.0); Carbon Dioxide 19.9 mmol/L (21.0-32.0); Chloride 107 mmol/L (98-108); Estimated Creatinine Clearance 96.88 ml/min (50-250); Glucose 134 mg/dL (70-99); Potassium 3.6 mmol/L (3.3-5.1)
[2025-01-31] MEDS: Budesonide Respules 0.5 MG/2 ML AMPUL.NEB. INHALATION (06:57)
[2025-01-31] MEDS: CENOBAMATE 200 MG TABLET PO (09:00)
[2025-01-31] MEDS: Insulin Glargine-YFGN 100 UNIT/ML Pen 30 UNIT SC (09:02)
[2025-01-31] MEDS: DEXTROMETHORPHAN HBR/QUINIDINE 1 EACH CAPSULE PO (09:03)
--- NOTE | 2025-01-31 09:41 | PCM.PN.CARD ---
Subjective Subjective Patient seated comfortably in the chair eating breakfast this morning. Pacer check checked and normal function. Chest x-ray shows no evidence of pneumothorax there is some mild congestion noted. Telemetry shows atrially paced rhythm at 60 bpm. Objective Data Vital Signs: Vital Signs Temp Pulse Resp BP Pulse Ox O2 Del Method O2 Flow Rate 97.6 F L 60 15 125/59 H 95 Room Air 2 01/31/25 04:00 01/31/25 09:00 01/31/25 09:00 01/31/25 09:00 01/31/25 09:00 01/31/25 09:00 01/31/25 07:00 Oxygen Flow Rate (L/min) 2 Oxygen Delivery Method Room Air Weight: 211 lb 10.3 oz Body Mass Index (BMI) 34.1 Intake & Output: Intake and Output for Last 24 Hours 01/29/25 01/30/25 01/31/25 23:59 23:59 23:59 Intake Total 1025.55 / 1034.85 474.48 / 674.48 320 / 320 Output Total 350 / 800 2425 / 2425 150 / 150 Balance 675.55 / 234.85 -1950.52 / -1750.52 170 / 170 Lab / Micro Data Attestation: I reviewed the patient's lab results. 01/31/25 04:01 01/31/25 04:01 Labs: Laboratory Results - last 24 hr 01/31/25 04:01: WBC 6.0, RBC 3.33 L, Hgb 10.1 L, Hct 31.2 L, MCV 93.7, MCH 30.3, MCHC 32.4, RDW Std Deviation 47.2 H, RDW Coeff of He 14.0, Plt Count 186, MPV 10.2, Immature Gran % (Auto) 0.300, Neut % (Auto) 69.0, Lymph % (Auto) 21.0, [place] % (Auto) 7.7, Eos % (Auto) 1.5, Baso % (Auto) 0.5, Absolute Neuts (auto) 4.2, Absolute Lymphs (auto) 1.26, Nucleated RBC % 0, Sodium 138, Potassium 3.6, Chloride 107, Carbon Dioxide 19.9 L, Anion Gap 11, BUN 17, Creatinine 0.74, Estim Creat Clear Calc 96.88, Est GFR (MDRD) Non-Af 94, BUN/Creatinine Ratio 22.9 H, Glucose 134 H, Calcium 8.2 Rhythm Strip Rhythm Strip: Electronic atrial paced Rate: 60 Cardiology Labs/Tests 01/31/25 04:01: WBC 6.0, RBC 3.33 L, Hgb 10.1 L, Hct 31.2 L, MCV 93.7, MCH 30.3, MCHC 32.4, Plt Count 186, MPV 10.2, Immature Gran % (Auto) 0.300, Neut % (Auto) 69.0, Lymph % (Auto) 21.0, [place] % (Auto) 7.7, Eos % (Auto) 1.5, Baso % (Auto) 0.5, Absolute Neuts (auto) 4.2, Nucleated RBC % 0, Sodium 138, Potassium 3.6, Chloride 107, Carbon Dioxide 19.9 L, Anion Gap 11, BUN 17, Creatinine 0.74, Est GFR (MDRD) Non-Af 94, BUN/Creatinine Ratio 22.9 H, Glucose 134 H, Calcium 8.2 Rhythm: EKG: ECHO: Stress Test: Cardiac Cath: PCI: CT Surgery: Holter monitor: EPS: PPM: CXR: Chest CT Scan: Radiography Diagnostic Testing: Radiology Impression Echocardiogram 01/30/25 08:43 Interpretation Summary Normal LV size. Left ventricular systolic function is normal. The left ventricular ejection fraction is 70 %. Mild (1+) eccentric mitral valve insufficiency. Pulmonary artery systolic pressure is 50 mmHg. Moderate pulmonary hypertension. Ordering Physician: Pelon Valero Referring Physician: Riddhi Simpson Performed By: Debbie Camilo, CHAPIS, RVT Chest X-Ray 01/30/25 12:22 IMPRESSION: Status post left-sided PICC line with distal tip in the mid SVC. No pneumothorax. Reading Location: [facility] Chest X-Ray 01/30/25 19:32 IMPRESSION: Mild pulmonary vascular congestion. No focal consolidation. Mild cardiomegaly. Reading Location: [facility] Physical Exam Const alert and oriented x3 HEENT normocephalic Eyes EOMs intact bilaterally Chest Chest Narrative: Pacer insertion site is clean and dry in the right infraclavicular area Chest: right pectoral incision Resp normal respiratory effort Auscultation: crackles bilateral (Scant crackles in the bases) base Cardio Cardio Narrative: Distant heart tones Rate: regular rate Rhythm: regular rhythm Heart Sounds: S1 normal and S2 normal; Negative for click, gallop or murmur Extremity no pedal edema Neuro Neuro Narrative: Alert and oriented x 3 Psych mental status grossly normal Assessment & Plan Assessment/Plan (1) Sick sinus syndrome: PLAN: Patient status post permanent pacemaker implantation in the right infraclavicular area yesterday by Dr. Herrera. The patient is left-handed. Pacer check is normal this morning. Chest x-ray shows no pneumothorax. Insertion site is clean and dry. My cardiovascular standpoint the patient can be discharged to home. She has a follow-up with the [facility] February 08, 2025 at 11 AM. 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 However, some of the more recent seizures that appear to be her lack of responsiveness very well may have been related to her bradycardia. I have asked her to follow-up again with her neurologist as she may not need the extensive amount of antiseizure medications if they were trying to control these absent seizures. The patient confirmed that she will follow-up with the neurologist within the next week she already has an appointment. PLAN: Plan 1. From a cardiovascular standpoint the patient can be discharged to home. 2. Patient will follow-up in the [facility] February 08, 2025 at 11 AM. 3. Patient will be reevaluated after 4 to 6 weeks by the nurse practitioner in the [facility]. Charges/Coding Visit Charges Inpatient E&M: 87651 Subs Hosp L2
--- NOTE | 2025-01-31 10:13 | CASEMGMT ---
Addendum entered by Aaron Shah 01/31/25 15:51: Pt's RN CM (Leticia) through [facility] returns TC. Updated the CM that the pt will be discharging home today. Leticia states that she is working on getting home coordinator services for the pt. Denies further needs. Pt has an order for DC placed. Noted that PT is recommending HHC for the pt. RN CM to the pt room at this time. Pt denies the need for HHC again. Pt states that she plans to follow up @ as an OP. Pt states that she is well aware of the activity restrictions. Pt denies further DC needs and states that her sister will be here after [address] home. Pt RN updated. Original Note: Per ICU rounds, pt has the potential to DC home today. See cardiology's note. Noted that PT is still pending. RN CM to the pt room at this time. Pt sitting up in the chair and has the arm sling on. Pt states that she wishes to DC home today if she can. However, pt states that her sister (primary caregiver) cannot pick her up until this evening. Pt estimates between [id number]. Pt educated about the [facility] transportation van. Pt states that she does not believe she can get in and out of the vehicle by herself. Pt states that her sister has her walker that she will need. Hospitalist and RN updated. Pt states that she does still plan to attend [facility] for OP therapy. Pt states that she is aware of her activity restrictions and states that the charrer educated her on this. Pt denies further questions or concerns now. CM to follow.
--- NOTE | 2025-01-31 15:05 | DCINST_ITS ---
Discharge Instructions DC O2, CPAP, BIPAP needs Home O2 Discharge instructions: No Dressing / Incision Discharge Activity: Return to Normal Activity Weight Bearing Status: Full weight bearing Follow Up Care Test Results: Test results from this visit will be discussed in further detail at your follow- up appointment, if applicable. Discharge Plan Admission Admit Date/Time: 01/29/25 20:13 Primary Reason for Your Visit: Sick sinus syndrome Attending Provider: Charbel Parra Primary Care Provider: Riddhi Simpson Consulting Providers: Pelon Valero; Arianne Jefferson Discharge Orders/Prescriptions Prescriptions: Continued cranberry fruit 450 mg tablet 450 mg PO TID Rx Instructions: administer with meals Culturelle 10 billion cell capsule 1 cap PO DAILY ascorbic acid (vitamin C) 500 mg tablet 500 mg PO QDAY (DME) FreeStyle Es 2 Sensor Kit MISCELLANEOUS Qty: 3 0RF Rx Instructions: As directed (DME) FreeStyle Es 2 [place] Misc MISCELLANEOUS Qty: 1 0RF Rx Instructions: As directed cephalexin 250 mg capsule 250 mg PO QHS Qty: 90 0RF atorvastatin 80 mg tablet 80 mg PO QHS Qty: 90 0RF Xcopri 200 mg tablet 200 mg PO QDAY Qty: 30 2RF promethazine 12.5 mg tablet 12.5 mg PO TID PRN (Reason: nausea and vomiting) Qty: 90 4RF gabapentin 800 mg tablet 800 mg PO QHS Qty: 30 2RF ibuprofen 600 mg tablet 600 mg PO TID PRN (Reason: headache/pain) Qty: 90 2RF levocarnitine 330 mg tablet 330 mg PO BID Qty: 60 2RF Rx Instructions: must administer with a meal/food Ubrelvy 100 mg tablet 100 mg PO .COMPLEX Qty: 14 2RF Rx Instructions: Take 1 tablet orally every 2 hours as needed for headache up to 2 tablets/day. albuterol sulfate 90 mcg/actuation HFA aerosol inhaler 2 puff INHALATION Q4H PRN (Reason: Wheezing) Patient Comments: INHALE TWO PUFFS BY MOUTH DIRECTED EVERY 6 HOURS NEEDED FOR WHEEZING OR FOR SHORTNESS OF BREATH (BULK) (DME) Droplet Insulin Syr(half unit) 0.5 mL 31 gauge x 5/16 syringe MISCELLANEOUS Patient Comments: USE TO INJECT INSULIN UNDER THE SKIN EVERY MEAL AND AT BEDTIME PER SLIDING SCALE Nuedexta 20-10 mg capsule 1 cap PO BID insulin lispro 100 unit/mL solution 3 unit subcut .COMPLEX Rx Instructions: 3 units subcutaneously achs; INJECT PER SLIDING SCALE THREE TIMES DAILY FOLLOWS ONE UNIT IF BG LESS THAN 110, TWO UNITS FOR BG 111-150, FOUR UNITS FOR B G 151-200, SEVEN UNITS FOR BG 201-250, 10 UNITS FOR BG 251-300, 13 UNITS FOR BG 301-350, 16 UNITS FOR BG 351-400, CALL MD IF BG OVER 400 (MAX 48 UNITS PER DAY) meclizine 25 mg tablet 25 mg PO DAILY PRN Patient Comments: TAKE ONE TABLET BY MOUTH BID nystatin [Nyamyc] 100,000 unit/gram powder 1 applic TOPICAL BID Patient Comments: apply to affected area twice a day if needed mirtazapine 15 mg tablet 30 mg PO QHS melatonin 10 mg capsule 10 mg PO QHS diphenhydramine HCl [Allergy (diphenhydramine)] 25 mg capsule 50 mg PO QHS tizanidine 2 mg tablet 2 mg PO TID topiramate 25 mg tablet 25 mg PO BID Rx Instructions: Takes at 3 pm and 10 pm twice daily gabapentin 300 mg capsule 300 mg PO BID Rx Instructions: Takes at 10 am and 3 pm twice daily Emgality Pen 120 mg/mL pen injector 120 mg subcut QMONTH Rx Instructions: Takes the of every month Ozempic 0.25 mg or 0.5 mg (2 mg/3 mL) pen injector 0.25 mg SUBCUT QWEEK Rx Instructions: Takes every Wednesday carbamazepine [Tegretol] 200 mg tablet 200 mg PO TIDCM Qty: 1 0RF insulin glargine 100 unit/mL (3 mL) insulin pen 30 unit SUBCUT QAM Qty: 1 0RF hydrocodone-acetaminophen 5-325 mg tablet 1 tab PO BID (DME) handicap placard See Rx Instructions .ROUTE .MEDSUPPLY Qty: 1 0RF Rx Instructions: Length of time: 5 years Diagnosis: Impaired physical mobility z74.09 Arnuity Ellipta 200 mcg/actuation blister with device 1 inh inhalation DAILY Qty: 30 2RF omeprazole 40 mg capsule,delayed release(DR/EC) 40 mg PO DAILY Qty: 90 0RF Referrals / Follow Up: [facility] [Provider Group] Riddhi Simpson MD [Primary Care Provider] - Within 1 Month Christina,[place], MD [Med Staff - Active Staff] - See Referral Note (Follow-up in the [facility] February 08, 2025 at 11 AM) Disposition Disposition (needs filled in before D/C Order can be placed): Home, Self Care
--- NOTE | 2025-01-31 15:19 | PCM.DC.SUM ---
Providers Date of Admission: 01/29/25 Date of Discharge: 01/31/25 Primary Care Physician: Dr. Riddhi Simpson MD Consultations 01/29/25 22:04 Consult: Cardiology Routine Consulting Provider: Pelon Valero Reason for Consult: syncope 2/2 bradycardia EMERGENT Consult: No MD Notified: Yes Date Notified: 01/29/25 Time Notified: 20:57 Method of Notification: ED Physician Initiated Reason For Visit: SYNCOPE 2/2 BRADYCARDIA Diagnosis Discharge Diagnosis (1) Sick sinus syndrome: Status: Inactive Code(s): I49.5 - Sick sinus syndrome (2) Epilepsy: Status: Inactive Code(s): G40.909 - Epilepsy, unspecified, not intractable, without status epilepticus Qualifiers: Epilepsy type: unspecified Intractability: not intractable Status epilepticus: without status epilepticus Qualified Code(s): G40.909 - Epilepsy, unspecified, not intractable, without status epilepticus Plan 1. Sick sinus syndrome-status post pacemaker insertion-patient will remain in ICU overnight be reevaluated tomorrow morning for possible discharge home #2 type 2 diabetes-blood sugars will be monitored, patient's basal insulin was lowered #3 hyperlipidemia-patient is on a statin #4 seizure disorder-patient remains on her home medication #5 chronic pain-secondary to degenerative disc disease of the lumbar and cervical spine-patient will remain on her present medications Total clinical time spent by myself addressing the patient's medical issues, reviewing all of her data, and collaborating with the patient's care team: 35 minutes Medications at Discharge Home Medications albuterol sulfate 90 mcg/actuation aerosol inhaler 2 puff inhalation Q4H PRN Wheezing 09/03/22 insulin syr/ndl U100 half shirley 0.5 mL 31 gauge x 5/16 (Droplet Insulin Syringe (half unit)) 09/03/22 dextromethorphan 20 mg-quinidine 10 mg capsule (Nuedexta) 1 cap PO BID DEPRESSION 02/06/23 insulin lispro 100 unit/mL subcutaneous solution 3 unit subcut .COMPLEX DIABETES 09/04/23 meclizine 25 mg tablet 25 mg PO DAILY PRN vertigo 09/04/23 nystatin 100,000 unit/gram topical powder (Nyamyc) 1 applic topical BID RASH 09/04/23 Lactobacillus rhamnosus GG 10 billion cell capsule (Culturelle) 1 cap PO DAILY recurrent uti 05/09/24 ascorbic acid (vitamin C) 500 mg tablet 500 mg PO QDAY see pcp 05/09/24 cranberry fruit 450 mg tablet 450 mg PO TID see pcp 05/09/24 hydrocodone-acetaminophen 5-325mg 5mg-325mg 1 tab PO BID pain 09/11/24 atorvastatin 80 mg tablet 80 mg PO QHS cholesterol #90 tabs 10/30/24 cephalexin 250 mg capsule 250 mg PO QHS recurrent UTI #90 caps 10/30/24 flash glucose scanning reader ([employer] Es 2 [place]) #1 ea 10/30/24 flash glucose sensor ([employer] Es 2 Sensor kit) #3 ea 10/30/24 handicap placard #1 ea 11/15/24 fluticasone furoate 200 mcg/actuation blister powder for inhalation (Arnuity Ellipta) 1 inh inhalation DAILY copd #30 ea 11/20/24 mirtazapine 15 mg tablet 30 mg PO QHS sleep 12/14/24 omeprazole 40 mg capsule,delayed release 40 mg PO DAILY GERD #90 caps 01/03/25 cenobamate 200 mg tablet (Xcopri) 200 mg PO QDAY #30 tabs 01/08/25 gabapentin 800 mg tablet 800 mg PO QHS nerve pain #30 tabs 01/08/25 ibuprofen 600 mg tablet 600 mg PO TID PRN headache/pain #90 tabs 01/08/25 levocarnitine 330 mg tablet 330 mg PO BID elevated ammonia #60 tabs 01/08/25 promethazine 12.5 mg tablet 12.5 mg PO TID PRN nausea and vomiting #90 tabs 01/08/25 ubrogepant 100 mg tablet (Ubrelvy) 100 mg PO .COMPLEX MIGRAINE #14 tabs 01/08/25 diphenhydramine HCl 25 mg capsule (Allergy (diphenhydramine)) 50 mg PO QHS sleep 01/19/25 gabapentin 300 mg capsule 300 mg PO BID pain 01/19/25 galcanezumab-gnlm 120 mg/mL subcutaneous pen injector (Emgality Pen) 120 mg subcut QMONTH migraines 01/19/25 melatonin 10 mg capsule 10 mg PO QHS sleep 01/19/25 semaglutide 0.25 mg or 0.5 mg (2 mg/3 mL) subcutaneous pen injector (Ozempic) 0.25 mg subcut QWEEK diabetes 01/19/25 tizanidine 2 mg tablet 2 mg PO TID for muscle spasm 01/19/25 topiramate 25 mg tablet 25 mg PO BID seizures 01/19/25 carbamazepine 200 mg tablet (Tegretol) 200 mg PO TIDCM seizures #1 TAB 01/24/25 insulin glargine 100 unit/mL (3 mL) subcutaneous pen 30 unit (0.3 mL) subcut QAM diabetes #1 mL 01/24/25 Hospital Course Operations None Procedures - (Pacemaker insertion) Summary of Care Provided Minutes Spent on Discharge: 31 Hospital Course: This 59-year-old white female was seen in the emergency room at [facility] with a chief complaint of slow heart rate. She had been seen in the hospital here recently and discharged home for bradycardia, at that time they were working the patient up for possible pacemaker. At home today she did not feel well and called her sister came over and called the squad. Per the squad, she had a syncopal episode and was bradycardic in the 30s patient was given atropine by the squad and brought into the ER for evaluation, patient's heart rate was noted to be in the mid 40s with a blood pressure 114/59. Cardiology was contacted and saw the patient, she was taken to the [facility] and a pacemaker was inserted-there were no complications. Patient was then admitted to ICU for further care. On 01/31/2025, patient was seen and examined: On examination she appeared in good health and spirits, she does not appear to be in any distress. Vital signs as documented. Skin warm and dry and without overt rashes. Neck without JVD, thyroid appears normal, trachea is midline, neck is supple. Lungs clear, normal air movement was noted. Heart exam notable for regular rhythm, normal sounds and absence of murmurs, rubs or gallops. Abdomen unremarkable and without evidence of organomegaly, masses, or abdominal aortic enlargement, bowel sounds are present in all 4 quadrants, no abdominal tenderness was noted. Extremities nonedematous, no cyanosis was noted, no clubbing was noted. Neuro: Cranial nerves II through XII are grossly intact, no focal motor deficits were noted, sensation to light touch and pinprick is intact, motor exam 5/5 throughout. Psych: Patient is alert and oriented x3, she does not appear anxious or depressed, she does not appear agitated. Patient appears stable for discharge home on 01/31/2025. Weight / BMI Weight Weight: 96 kg Body Mass Index (BMI) 34.1 ABG / Lab / Microbiology Data 01/31/25 04:01 01/31/25 04:01 Laboratory: Laboratory Results - last 24 hr 01/31/25 04:01: WBC 6.0, RBC 3.33 L, Hgb 10.1 L, Hct 31.2 L, MCV 93.7, MCH 30.3, MCHC 32.4, RDW Std Deviation 47.2 H, RDW Coeff of He 14.0, Plt Count 186, MPV 10.2, Immature Gran % (Auto) 0.300, Neut % (Auto) 69.0, Lymph % (Auto) 21.0, [place] % (Auto) 7.7, Eos % (Auto) 1.5, Baso % (Auto) 0.5, Absolute Neuts (auto) 4.2, Absolute Lymphs (auto) 1.26, Nucleated RBC % 0, Sodium 138, Potassium 3.6, Chloride 107, Carbon Dioxide 19.9 L, Anion Gap 11, BUN 17, Creatinine 0.74, Estim Creat Clear Calc 96.88, Est GFR (MDRD) Non-Af 94, BUN/Creatinine Ratio 22.9 H, Glucose 134 H, Calcium 8.2 Radiography Diagnostic Testing: Radiology Impression Chest X-Ray 01/30/25 19:32 IMPRESSION: Mild pulmonary vascular congestion. No focal consolidation. Mild cardiomegaly. Reading Location: [id number] D/C Instructions Weight Bearing Status: Full weight bearing DC O2, CPAP, BIPAP Needs Home O2 Discharge instructions: No Meaningful Use Info Meaningful Use Meaningful Use Diagnoses (Choose all that apply): None applicable Discharge Plan Admission Admit Date/Time: 01/29/25 20:13 Primary Reason for Your Visit: Sick sinus syndrome Attending Provider: Shirley Parra Primary Care Provider: Riddhi Simpson Consulting Providers: Pelon Valero; Arianne Jefferson Discharge Orders/Prescriptions Prescriptions: Continued cranberry fruit 450 mg tablet 450 mg PO TID Rx Instructions: administer with meals Culturelle 10 billion cell capsule 1 cap PO DAILY ascorbic acid (vitamin C) 500 mg tablet 500 mg PO QDAY (DME) FreeStyle Es 2 Sensor Kit MISCELLANEOUS Qty: 3 0RF Rx Instructions: As directed (DME) FreeStyle Es 2 [place] Misc MISCELLANEOUS Qty: 1 0RF Rx Instructions: As directed cephalexin 250 mg capsule 250 mg PO QHS Qty: 90 0RF atorvastatin 80 mg tablet 80 mg PO QHS Qty: 90 0RF Xcopri 200 mg tablet 200 mg PO QDAY Qty: 30 2RF promethazine 12.5 mg tablet 12.5 mg PO TID PRN (Reason: nausea and vomiting) Qty: 90 4RF gabapentin 800 mg tablet 800 mg PO QHS Qty: 30 2RF ibuprofen 600 mg tablet 600 mg PO TID PRN (Reason: headache/pain) Qty: 90 2RF levocarnitine 330 mg tablet 330 mg PO BID Qty: 60 2RF Rx Instructions: must administer with a meal/food Ubrelvy 100 mg tablet 100 mg PO .COMPLEX Qty: 14 2RF Rx Instructions: Take 1 tablet orally every 2 hours as needed for headache up to 2 tablets/day. albuterol sulfate 90 mcg/actuation HFA aerosol inhaler 2 puff INHALATION Q4H PRN (Reason: Wheezing) Patient Comments: INHALE TWO PUFFS BY MOUTH DIRECTED EVERY 6 HOURS NEEDED FOR WHEEZING OR FOR SHORTNESS OF BREATH (BULK) (DME) Droplet Insulin Syr(half unit) 0.5 mL 31 gauge x 5/16 syringe MISCELLANEOUS Patient Comments: USE TO INJECT INSULIN UNDER THE SKIN EVERY MEAL AND AT BEDTIME PER SLIDING SCALE Nuedexta 20-10 mg capsule 1 cap PO BID insulin lispro 100 unit/mL solution 3 unit subcut .COMPLEX Rx Instructions: 3 units subcutaneously achs; INJECT PER SLIDING SCALE THREE TIMES DAILY FOLLOWS ONE UNIT IF BG LESS THAN 110, TWO UNITS FOR BG 111-150, FOUR UNITS FOR BG 151-200, SEVEN UNITS FOR BG 201-250, 10 UNITS FOR BG 251-300, 13 UNITS FOR BG 301-350, 16 UNITS FOR BG 351-400, CALL MD IF BG OVER 400 (MAX 48 UNITS PER DAY) meclizine 25 mg tablet 25 mg PO DAILY PRN Patient Comments: TAKE ONE TABLET BY MOUTH BID nystatin [Nyamyc] 100,000 unit/gram powder 1 applic TOPICAL BID Patient Comments: apply to affected area twice a day if needed mirtazapine 15 mg tablet 30 mg PO QHS melatonin 10 mg capsule 10 mg PO QHS diphenhydramine HCl [Allergy (diphenhydramine)] 25 mg capsule 50 mg PO QHS tizanidine 2 mg tablet 2 mg PO TID topiramate 25 mg tablet 25 mg PO BID Rx Instructions: Takes at 3 pm and 10 pm twice daily gabapentin 300 mg capsule 300 mg PO BID Rx Instructions: Takes at 10 am and 3 pm twice daily Emgality Pen 120 mg/mL pen injector 120 mg subcut QMONTH Rx Instructions: Takes the of every month Ozempic 0.25 mg or 0.5 mg (2 mg/3 mL) pen injector 0.25 mg SUBCUT QWEEK Rx Instructions: Takes every Wednesday carbamazepine [Tegretol] 200 mg tablet 200 mg PO TIDCM Qty: 1 0RF insulin glargine 100 unit/mL (3 mL) insulin pen 30 unit SUBCUT QAM Qty: 1 0RF hydrocodone-acetaminophen 5-325 mg tablet 1 tab PO BID (DME) handicap placard See Rx Instructions .ROUTE .MEDSUPPLY Qty: 1 0RF Rx Instructions: Length of time: 5 years Diagnosis: Impaired physical mobility z74.09 Arnuity Ellipta 200 mcg/actuation blister with device 1 inh inhalation DAILY Qty: 30 2RF omeprazole 40 mg capsule,delayed release(DR/EC) 40 mg PO DAILY Qty: 90 0RF Referrals / Follow Up: [facility] [Provider Group] Riddhi Simpson MD [Primary Care Provider] - Within 1 Month ChristinaJose gilmore MD [Med Staff - Active Staff] - See Referral Note (Follow-up in the [facility] device clinic February 08, 2025 at 11 AM) Disposition Disposition (needs filled in before D/C Order can be placed): Home, Self Care Charges/Coding Visit Charges Inpatient E&M: 69945 Disch Hosp >30min
--- NOTE | 2025-01-31 16:14 | PHA.DC.MR.R ---
Pharmacy [place] Med Reconciliation Pharmacy Service has performed discharge medication reconciliation for this patient. The patient's discharge medication list was reviewed for discrepancies and discrepancies were resolved. Medications at Discharge Home Medications albuterol sulfate 90 mcg/actuation aerosol inhaler 2 puff inhalation Q4H PRN Wheezing 09/03/22 insulin syr/ndl U100 half shirley 0.5 mL 31 gauge x 5/16 (Droplet Insulin Syringe (half unit)) 09/03/22 dextromethorphan 20 mg-quinidine 10 mg capsule (Nuedexta) 1 cap PO BID DEPRESSION 02/06/23 insulin lispro 100 unit/mL subcutaneous solution 3 unit subcut .COMPLEX DIABETES 09/04/23 meclizine 25 mg tablet 25 mg PO DAILY PRN vertigo 09/04/23 nystatin 100,000 unit/gram topical powder (Nyamyc) 1 applic topical BID RASH 09/04/23 Lactobacillus rhamnosus GG 10 billion cell capsule (Culturelle) 1 cap PO DAILY recurrent uti 05/09/24 ascorbic acid (vitamin C) 500 mg tablet 500 mg PO QDAY see pcp 05/09/24 cranberry fruit 450 mg tablet 450 mg PO TID see pcp 05/09/24 hydrocodone-acetaminophen 5-325mg 5mg-325mg 1 tab PO BID pain 09/11/24 atorvastatin 80 mg tablet 80 mg PO QHS cholesterol #90 tabs 10/30/24 cephalexin 250 mg capsule 250 mg PO QHS recurrent UTI #90 caps 10/30/24 flash glucose scanning reader ([employer] Es 2 [place]) #1 ea 10/30/24 flash glucose sensor (FreeStyle Es 2 Sensor kit) #3 ea 10/30/24 handicap placard #1 ea 11/15/24 fluticasone furoate 200 mcg/actuation blister powder for inhalation (Arnuity Ellipta) 1 inh inhalation DAILY copd #30 ea 11/20/24 mirtazapine 15 mg tablet 30 mg PO QHS sleep 12/14/24 omeprazole 40 mg capsule,delayed release 40 mg PO DAILY GERD #90 caps 01/03/25 cenobamate 200 mg tablet (Xcopri) 200 mg PO QDAY #30 tabs 01/08/25 gabapentin 800 mg tablet 800 mg PO QHS nerve pain #30 tabs 01/08/25 ibuprofen 600 mg tablet 600 mg PO TID PRN headache/pain #90 tabs 01/08/25 levocarnitine 330 mg tablet 330 mg PO BID elevated ammonia #60 tabs 01/08/25 promethazine 12.5 mg tablet 12.5 mg PO TID PRN nausea and vomiting #90 tabs 01/08/25 ubrogepant 100 mg tablet (Ubrelvy) 100 mg PO .COMPLEX MIGRAINE #14 tabs 01/08/25 diphenhydramine HCl 25 mg capsule (Allergy (diphenhydramine)) 50 mg PO QHS sleep 01/19/25 gabapentin 300 mg capsule 300 mg PO BID pain 01/19/25 galcanezumab-gnlm 120 mg/mL subcutaneous pen injector (Emgality Pen) 120 mg subcut QMONTH migraines 01/19/25 melatonin 10 mg capsule 10 mg PO QHS sleep 01/19/25 semaglutide 0.25 mg or 0.5 mg (2 mg/3 mL) subcutaneous pen injector (Ozempic) 0.25 mg subcut QWEEK diabetes 01/19/25 tizanidine 2 mg tablet 2 mg PO TID for muscle spasm 01/19/25 topiramate 25 mg tablet 25 mg PO BID seizures 01/19/25 carbamazepine 200 mg tablet (Tegretol) 200 mg PO TIDCM seizures #1 TAB 01/24/25 insulin glargine 100 unit/mL (3 mL) subcutaneous pen 30 unit (0.3 mL) subcut QAM diabetes #1 mL 01/24/25
== END 2025-01-31 17:18 | disposition home or self-care (01) | DRG 243 ==
LOC: ED 18:33 → ICU 20:41
PROVIDERS: Family Medicine; Admitting Provider Internal Medicine; Emergency Provider Emergency Medicine; PCP Internal Medicine; Visit Provider Internal Medicine
DX: I49.5 Sick sinus syndrome (principal); G37.9 Demyelinating disease of central nervous system, unspecified; I45.2 Bifascicular block; E11.9 Type 2 diabetes mellitus without complications; J44.9 Chronic obstructive pulmonary disease, unspecified; G40.909 Epilepsy, unspecified, not intractable, without status epilepticus; F32.A Depression, unspecified; E66.9 Obesity, unspecified; F41.9 Anxiety disorder, unspecified; K21.9 Gastro-esophageal reflux disease without esophagitis; L40.9 Psoriasis, unspecified; E78.5 Hyperlipidemia, unspecified; Z79.4 Long term (current) use of insulin; G43.709 Chronic migraine without aura, not intractable, without status migrainosus; I95.9 Hypotension, unspecified; M50.30 Other cervical disc degeneration, unspecified cervical region; M51.369 Other intervertebral disc degeneration, lumbar region without mention of lumbar back pain or lower extremity pain; R33.9 Retention of urine, unspecified; G89.29 Other chronic pain; Z86.73 Personal history of transient ischemic attack (TIA), and cerebral infarction without residual deficits; Z87.19 Personal history of other diseases of the digestive system; Z90.49 Acquired absence of other specified parts of digestive tract; Z79.85 Long-term (current) use of injectable non-insulin antidiabetic drugs; Z79.51 Long term (current) use of inhaled steroids; Z79.899 Other long term (current) drug therapy; Z87.891 Personal history of nicotine dependence; Z68.34 Body mass index [BMI] 34.0-34.9, adult
CPT/HCPCS: 33208; 36415; 36569; 71045; 80048; 82962; 83605; 84443; 84484; 85025; 85610; 85730; 93005; 93306; 94640; 97162; 97166; 99152; 99153; 99285; Q9967; A4216; C1894; J2405

== ENCOUNTER 2025-02-16 10:49 | Inpatient (IN) | payer MEDICARE, MEDICAID, SELFPAY ==
[2025-02-16] VITALS (11 sets, daily range): BP systolic 106–134; BP diastolic 54–103; PULSE 67–85; RESP 13–23; TEMP 35.8–38.7; O2SAT 92–100; BMI 32.7; BMI 32.3
[2025-02-16] MEDS: 0.9% Normal Saline (1000mL) 1,000 ML 1000 ML IV (12:26)
[2025-02-16 12:36] LABS: Hematocrit 33.8 % (37-47); Hemoglobin 11.0 g/dL (12.0-15.0); Immature Granulocytes Count 0.110 X10^3/uL (0.0-0.0); Mean Corp Hgb Conc 32.5 g/dL (32-36); Mean Corpuscular Volume 92.9 fL (81-99); Mean Platelet Vol. 10.0 fl (6.2-12.0); NRBC Flagged by Analyzer 0 % (0-5); POSITIVE DIFFERENTIAL YES; Platelet Count 271 K/mm3 (150-450); RBC Distribution Width CV 14.1 % (11.6-14.6); RBC Distribution Width SD 47.2 fl (35.1-43.9); Red Blood Count 3.64 M/mm3 (4.2-5.4); White Blood Count 20.4 K/mm3 (4.4-11.0)
[2025-02-16 12:41] LABS: Differential Indicated SCAN CRITERIA MET
[2025-02-16 12:51] LABS: Mucous, Urine 0 SEEN /hpf (<or=2+); Red Blood Cells-Urine 0 SEEN /hpf (0-5)
[2025-02-16 13:00] LABS: Color, Urine Yellow (Yellow); Glucose, Dipstick Normal (Normal); Ketone-Dipstick Negative (Negative); Leukocyte Esterase-Dipstick 25 /ul (Negative); Nitrite-Dipstick Negative (Negative); Occult Blood-Urine Negative /ul (Negative); Protein-Dipstick 30 mg/dl (Negative); Specific Gravity, Urine 1.015 (1.002-1.030); Urine Bilirubin Dipstick 1 mg/dL (Negative)
[2025-02-16 13:06] LABS: Squamous Epithelial Cells - UA 0-5 SEEN /hpf (5-10)
[2025-02-16 13:08] LABS: Anion Gap 15 (5-15); BUN 21 mg/dL (4-19); BUN/Creat Ratio 18.6 RATIO (10-20); Calcium,Total 9.1 mg/dL (7.6-11.0); Carbon Dioxide 20.2 mmol/L (21.0-32.0); Chloride 102 mmol/L (98-108); Estimated Creatinine Clearance 63.84 ml/min (50-250); Glucose 150 mg/dL (70-99); Potassium 4.2 mmol/L (3.3-5.1)
[2025-02-16] MEDS: 0.9% Normal Saline (1000mL) 1,000 ML 150 ML IV (20:50)
[2025-02-16] MEDS: 0.9% Saline Lock 10 ML Syringe IV (20:50)
[2025-02-16] MEDS: Senna/Docusate Sodium 1 Tablet 2 TABLET PO (21:59)
[2025-02-16] MEDS: DEXTROMETHORPHAN HBR/QUINIDINE 1 EACH CAPSULE PO (21:59)
[2025-02-17] VITALS (8 sets, daily range): BP systolic 127–134; BP diastolic 33–70; PULSE 70–87; RESP 16–20; TEMP 35.8–37.4; O2SAT 88–99
[2025-02-17 06:32] LABS: Hematocrit 30.2 % (37-47); Hemoglobin 9.6 g/dL (12.0-15.0); Immature Granulocytes Count 0.050 X10^3/uL (0.0-0.0); Mean Corp Hgb Conc 31.8 g/dL (32-36); Mean Corpuscular Volume 95.9 fL (81-99); Mean Platelet Vol. 10.1 fl (6.2-12.0); NRBC Flagged by Analyzer 0 % (0-5); Platelet Count 221 K/mm3 (150-450); RBC Distribution Width CV 14.4 % (11.6-14.6); RBC Distribution Width SD 49.1 fl (35.1-43.9); Red Blood Count 3.15 M/mm3 (4.2-5.4); White Blood Count 12.7 K/mm3 (4.4-11.0)
[2025-02-17 06:53] LABS: Anion Gap 10 (5-15); BUN 16 mg/dL (4-19); BUN/Creat Ratio 19.5 RATIO (10-20); Calcium,Total 9.2 mg/dL (7.6-11.0); Carbon Dioxide 21.7 mmol/L (21.0-32.0); Chloride 107 mmol/L (98-108); Estimated Creatinine Clearance 86.96 ml/min (50-250); Glucose 229 mg/dL (70-99); Potassium 4.2 mmol/L (3.3-5.1)
[2025-02-17] MEDS: HYDROcodone Bitartrate/Apap 5/325 Tablet PO ×2 (09:46→21:05)
[2025-02-17] MEDS: Senna/Docusate Sodium 1 Tablet 2 TABLET PO (09:50)
[2025-02-17] MEDS: DEXTROMETHORPHAN HBR/QUINIDINE 1 EACH CAPSULE PO ×2 (09:51→21:12)
[2025-02-17] MEDS: Insulin Glargine-YFGN 100 UNIT/ML Pen 30 UNIT SC (09:52)
[2025-02-17] MEDS: CENOBAMATE 200 MG TABLET PO (09:58)
[2025-02-17] MEDS: Budesonide Respules 0.5 MG/2 ML AMPUL.NEB. INHALATION (20:13)
[2025-02-17] MEDS: MELATONIN 10 MG TABLET PO (22:43)
[2025-02-17] MEDS: hydrOXYzine PAM 25 MG Capsule 50 MG PO (22:43)
[2025-02-17] MEDS: Albuterol 2.5 MG/3 ML VIAL.NEB. INHALATION (23:02)
[2025-02-18] VITALS (7 sets, daily range): BP systolic 97–155; BP diastolic 55–74; PULSE 59–88; RESP 14–18; TEMP 36.1–37.2; O2SAT 93–98
[2025-02-18 06:45] LABS: Hematocrit 26.9 % (37-47); Hemoglobin 8.6 g/dL (12.0-15.0); Immature Granulocytes Count 0.060 X10^3/uL (0.0-0.0); Mean Corp Hgb Conc 32.0 g/dL (32-36); Mean Corpuscular Volume 96.1 fL (81-99); Mean Platelet Vol. 10.3 fl (6.2-12.0); NRBC Flagged by Analyzer 0 % (0-5); Platelet Count 218 K/mm3 (150-450); RBC Distribution Width CV 14.2 % (11.6-14.6); RBC Distribution Width SD 49.8 fl (35.1-43.9); Red Blood Count 2.80 M/mm3 (4.2-5.4); White Blood Count 10.1 K/mm3 (4.4-11.0)
[2025-02-18 07:03] LABS: Anion Gap 10 (5-15); BUN 17 mg/dL (4-19); BUN/Creat Ratio 27.2 RATIO (10-20); Calcium,Total 8.7 mg/dL (7.6-11.0); Carbon Dioxide 21.4 mmol/L (21.0-32.0); Chloride 107 mmol/L (98-108); Estimated Creatinine Clearance 108.69 ml/min (50-250); Glucose 189 mg/dL (70-99); Magnesium 1.7 mg/dL (1.5-2.2); Potassium 4.4 mmol/L (3.3-5.1)
[2025-02-18] MEDS: Budesonide Respules 0.5 MG/2 ML AMPUL.NEB. INHALATION ×2 (07:27→20:37)
[2025-02-18 09:36] LABS: Immature Reticulocyte Fraction 13.90 % (3.00-15.90); Platelet Count 227 K/mm3 (150-450); Reticulocyte Count 2.69 % (0.5-1.5)
[2025-02-18] MEDS: HYDROcodone Bitartrate/Apap 5/325 Tablet PO ×2 (10:09→22:27)
[2025-02-18] MEDS: CENOBAMATE 200 MG TABLET PO (10:14)
[2025-02-18] MEDS: DEXTROMETHORPHAN HBR/QUINIDINE 1 EACH CAPSULE PO ×2 (10:14→22:27)
[2025-02-18] MEDS: Senna/Docusate Sodium 1 Tablet 2 TABLET PO (10:15)
[2025-02-18 10:16] LABS: Ferritin 49 ng/mL (22-378); Iron 19 ug/dL (50-170); Iron Binding Capacity,Total 281 ug/dL (250-450); Iron Binding Capacity,Unsat 262 ug/dL (228-428); Vitamin B12 476 pg/mL (180-914)
[2025-02-18] MEDS: Insulin Glargine-YFGN 100 UNIT/ML Pen 20 UNIT SC ×2 (10:19→17:26)
[2025-02-18] MEDS: MELATONIN 10 MG TABLET PO (22:27)
[2025-02-19] VITALS (8 sets, daily range): BP systolic 111–143; BP diastolic 62–82; PULSE 60–70; RESP 15–18; TEMP 36.6–36.9; O2SAT 91–100
[2025-02-19] MEDS: Insulin Glargine-YFGN 100 UNIT/ML Pen 20 UNIT SC ×2 (06:29→17:23)
[2025-02-19 07:04] LABS: Hematocrit 27.6 % (37-47); Hemoglobin 8.9 g/dL (12.0-15.0); Immature Granulocytes Count 0.050 X10^3/uL (0.0-0.0); Mean Corp Hgb Conc 32.2 g/dL (32-36); Mean Corpuscular Volume 93.2 fL (81-99); Mean Platelet Vol. 10.0 fl (6.2-12.0); NRBC Flagged by Analyzer 0 % (0-5); Platelet Count 237 K/mm3 (150-450); RBC Distribution Width CV 13.9 % (11.6-14.6); RBC Distribution Width SD 47.0 fl (35.1-43.9); Red Blood Count 2.96 M/mm3 (4.2-5.4); White Blood Count 8.5 K/mm3 (4.4-11.0)
[2025-02-19 07:41] LABS: Anion Gap 13 (5-15); BUN 12 mg/dL (4-19); BUN/Creat Ratio 18.2 RATIO (10-20); Calcium,Total 9.0 mg/dL (7.6-11.0); Carbon Dioxide 20.0 mmol/L (21.0-32.0); Chloride 102 mmol/L (98-108); Estimated Creatinine Clearance 103.83 ml/min (50-250); Glucose 155 mg/dL (70-99); Potassium 4.1 mmol/L (3.3-5.1)
[2025-02-19] MEDS: Albuterol 2.5 MG/3 ML VIAL.NEB. INHALATION ×2 (07:56→20:09)
[2025-02-19] MEDS: Budesonide Respules 0.5 MG/2 ML AMPUL.NEB. INHALATION ×2 (07:56→20:09)
[2025-02-19] MEDS: HYDROcodone Bitartrate/Apap 5/325 Tablet PO ×2 (09:52→21:51)
[2025-02-19] MEDS: DEXTROMETHORPHAN HBR/QUINIDINE 1 EACH CAPSULE PO ×2 (09:53→21:50)
[2025-02-19] MEDS: Senna/Docusate Sodium 1 Tablet 2 TABLET PO (09:54)
[2025-02-19] MEDS: CENOBAMATE 200 MG TABLET PO (09:56)
[2025-02-19] MEDS: MELATONIN 10 MG TABLET PO (21:52)
[2025-02-19] MEDS: 0.9% Saline Lock 10 ML Syringe IV (21:52)
[2025-02-20 00:23] VITALS: O2SAT 89
[2025-02-20 00:24] VITALS: PULSE 61; O2SAT 95
[2025-02-20 04:01] VITALS: BP 155/75; PULSE 60; RESP 16; TEMP 36.4; O2SAT 99
[2025-02-20 06:27] LABS: Hematocrit 31.0 % (37-47); Hemoglobin 9.9 g/dL (12.0-15.0); Immature Granulocytes Count 0.080 X10^3/uL (0.0-0.0); Mean Corp Hgb Conc 31.9 g/dL (32-36); Mean Corpuscular Volume 93.9 fL (81-99); Mean Platelet Vol. 10.2 fl (6.2-12.0); NRBC Flagged by Analyzer 0 % (0-5); Platelet Count 227 K/mm3 (150-450); RBC Distribution Width CV 13.9 % (11.6-14.6); RBC Distribution Width SD 47.0 fl (35.1-43.9); Red Blood Count 3.30 M/mm3 (4.2-5.4); White Blood Count 7.2 K/mm3 (4.4-11.0)
[2025-02-20] MEDS: Budesonide Respules 0.5 MG/2 ML AMPUL.NEB. INHALATION (07:10)
[2025-02-20] MEDS: Albuterol 2.5 MG/3 ML VIAL.NEB. INHALATION (07:10)
[2025-02-20 07:12] LABS: Anion Gap 14 (5-15); BUN 15 mg/dL (4-19); BUN/Creat Ratio 24.2 RATIO (10-20); Calcium,Total 8.9 mg/dL (7.6-11.0); Carbon Dioxide 18.3 mmol/L (21.0-32.0); Chloride 103 mmol/L (98-108); Estimated Creatinine Clearance 114.04 ml/min (50-250); Glucose 138 mg/dL (70-99); Potassium 4.3 mmol/L (3.3-5.1)
[2025-02-20 07:16] VITALS: PULSE 66; RESP 18
[2025-02-20 08:15] VITALS: O2SAT 94
[2025-02-20] MEDS: Insulin Glargine-YFGN 100 UNIT/ML Pen 20 UNIT SC (08:20)
[2025-02-20] MEDS: UBROGEPANT 100 MG PO ×2 (08:23→11:24)
[2025-02-20 08:26] VITALS: BP 125/72; PULSE 59; RESP 18; TEMP 36.9; O2SAT 96
[2025-02-20] MEDS: DEXTROMETHORPHAN HBR/QUINIDINE 1 EACH CAPSULE PO (09:30)
[2025-02-20] MEDS: HYDROcodone Bitartrate/Apap 5/325 Tablet PO (09:31)
[2025-02-20] MEDS: CENOBAMATE 200 MG TABLET PO (09:31)
[2025-02-20] MEDS: Senna/Docusate Sodium 1 Tablet 2 TABLET PO (09:32)
== END 2025-02-20 11:49 | disposition skilled nursing facility (03) | DRG 101 ==
LOC: ED 15:17 → PCU 15:29
PROVIDERS: Internal Medicine; Emergency Provider Emergency Medicine; PCP Internal Medicine; Visit Provider Family Medicine
DX: G40.909 Epilepsy, unspecified, not intractable, without status epilepticus (principal); G37.9 Demyelinating disease of central nervous system, unspecified; B96.1 Klebsiella pneumoniae [K. pneumoniae] as the cause of diseases classified elsewhere; D63.8 Anemia in other chronic diseases classified elsewhere; I49.5 Sick sinus syndrome; E11.42 Type 2 diabetes mellitus with diabetic polyneuropathy; J44.9 Chronic obstructive pulmonary disease, unspecified; I10 Essential (primary) hypertension; E66.812 Obesity, class 2; D72.829 Elevated white blood cell count, unspecified; Z79.4 Long term (current) use of insulin; E78.00 Pure hypercholesterolemia, unspecified; K21.9 Gastro-esophageal reflux disease without esophagitis; J30.9 Allergic rhinitis, unspecified; G43.709 Chronic migraine without aura, not intractable, without status migrainosus; Z68.36 Body mass index [BMI] 36.0-36.9, adult; Z86.73 Personal history of transient ischemic attack (TIA), and cerebral infarction without residual deficits; Z79.51 Long term (current) use of inhaled steroids; Z86.16 Personal history of COVID-19; Z79.899 Other long term (current) drug therapy; Z95.0 Presence of cardiac pacemaker; Z87.891 Personal history of nicotine dependence; Z79.891 Long term (current) use of opiate analgesic; Z82.5 Family history of asthma and other chronic lower respiratory diseases; Z79.85 Long-term (current) use of injectable non-insulin antidiabetic drugs; R53.81 Other malaise; B34.9 Viral infection, unspecified; Z90.49 Acquired absence of other specified parts of digestive tract; Z98.51 Tubal ligation status
CPT/HCPCS: 36415; 51702; 70450; 71046; 80048; 80201; 81001; 82274; 82607; 82728; 82962; 83540; 83550; 83605; 83735; 84100; 85025; 85045; 87040; 87070; 87077; 87186; 87205; 87631; 87633; 94640; 95819; 97110; 97116; 97162; 97165; 97530; 97535; 97802; 99285; A4216; J2405

== ENCOUNTER 2025-02-20 12:00 | Inpatient (IN) | payer MEDICARE, MEDICAID, SELFPAY ==
[2025-02-20 12:59] VITALS: BP 127/65; PULSE 71; RESP 18; TEMP 36.9; O2SAT 96; BMI 33.0
--- NOTE | 2025-02-20 14:58 | NURSING ---
Addendum entered by Jo-Ann Salazar 02/20/25 15:20: Call back, only pneumonia vaccine they have already on file. Original Note: Left VM with Dr. Simpson's office to see if any pneumonia vaccines on file. Await return call.
[2025-02-20] MEDS: Pneumococcal Vaccine 20 Valent 0.5 ML Syringe IM (17:01)
--- NOTE | 2025-02-20 17:45 | HP.PCM_ITS ---
HPI - General General Date of Admission: 02/20/25 Date of Service: 02/20/25 Chief Complaint: Here for rehabilitation. HPI Narrative FAM VINSON, is a 59 Female who presents with followin02/16/2025 [facility] ED generalized illness. Permanent pacemaker placement 2 weeks ago for sick sinus syndrome. Cough, green sputum, fever 100.7, seizures last several days. Seizures last 20 years, dysuria, confusion. WBC 20,000, urinalysis negative, Chest X-ray negative, Lactic acid normal. Fever 101.2, Tylenol given, IV fluids given, no source of fever. 02/16/2025 Admit [facility]. covid negative, flu negative, rsv negative, check respiratory panel, blood cultures pending. Pacemaker site clear. Monitor off antibiotics. Topamax level, CT head, EEG, Neurology for breakthrough seizures. 02/17/2025 Fever, seizures, confusion. Seizure medication, eeg, neurology for breakthrough seizure. Fever 2/2 viral syndrome. 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 02/17/2025 Neurology recommended increasing Topamax to 50mg bid, continue CBZ 200mg tid, continue Xcopri 200mg daily, continue Levocarnitine. Check ammonia in 1 week, follow up neurology in 6 weeks (03/30/2025). 02/18/2025 weakness, patient requested SNF for rehab. PT/OT SNF. 02/19/2025 Migraine this AM, improved. PT/OT for SNF. Viral etiology of fever. Long acting insulin, SSI for Diabetes Mellitus II. 02/20/2025 Admit to TCU with debility, here for rehabilitation, strengthening, prior to discharge home with baby sister. [facility] Medical History (Updated 02/20/25 @ 20:[address] Antonio Jenkins MD) Anxiety COPD (chronic obstructive pulmonary disease) Debility Seizure Myalgia Low back pain Diabetes mellitus, type 2 Presence of cardiac pacemaker Sick sinus syndrome History of COPD History of diabetes mellitus Syncope Symptomatic bradycardia Hx of type 2 diabetes mellitus Epilepsy Palpitations Hyperammonemia Cerebrovascular disease Dorsalgia Neck pain Migraine headache without aura Polyneuropathy Generalized weakness General weakness Slurred speech Former smoker Asthma Seizures Multiple sclerosis Demyelinating disease of central nervous system Epilepsy Generalized weakness Recurrent falls Recurrent syncope Depression Migraines Multiple falls Gastroenteritis History of CVA (cerebrovascular accident) GERD (gastroesophageal reflux disease) Obesity Former tobacco use Seizure disorder Allergic rhinitis Chronic migraine Orthostasis HTN (hypertension) COVID-19 virus infection Bradycardia Psoriasis Hypercholesterolemia Home Medications ?Medication ?Instructions ?Recorded ?Last Taken ?Type albuterol sulfate 90 mcg/actuation 2 puff inhalation . q6prn Wheezing 09/03/22 02/20/25 History aerosol inhaler insulin syr/ndl U100 half shirley 0.5 09/03/22 Unknown H istory mL 31 gauge x 5/16 (Droplet Insulin Syringe (half unit)) dextromethorphan 20 mg-quinidine 1 cap PO BID DEPRESSI ON 02/06/23 02/15/25 History 10 mg capsule (Nuedexta) meclizine 25 mg tablet 25 mg PO DAILY PRN vertigo 0 09/04/23 09/04/23 History nystatin 100,000 unit/gram topical 1 applic topical BI D RASH 09/04/23 01/28/25 History powder (Nyamyc) Lactobacillus rhamnosus GG 10 1 cap PO DAILY recurrent uti 05/09/24 01/29/25 History billion cell capsule (Culturelle) ascorbic acid (vitamin C) 500 mg 500 mg PO QDAY see pc p 05/09/24 02/20/25 History tablet cranberry fruit 450 mg tablet 450 mg PO TID see pcp 01/29/25 History hydrocodone-acetaminophen 5-325mg 1 tab PO BID pain 01/29/25 History 5mg-325mg atorvastatin 80 mg tablet 80 mg PO QHS cholesterol #90 tabs 10/30/24 02/19/25 Rx flash glucose scanning reader #1 ea 10/30/24 Unknown R x (FreeStyle Es 2 [place]) flash glucose sensor (FreeStyle #3 ea 10/30/24 Unknown Rx Es 2 Sensor kit) handicap placard #1 ea 11/15/24 Unknown Rx mirtazapine 15 mg tablet 30 mg PO QHS sleep 12/14/24 01/28/25 History omeprazole 40 mg capsule,delayed 40 mg PO DAILY GERD # 90 caps 01/03/25 01/29/25 Rx release ibuprofen 600 mg tablet 600 mg PO TID PRN headache/p ain 01/08/25 01/29/25 Rx #90 tabs promethazine 12.5 mg tablet 12.5 mg PO TID PRN nausea and 01/08/25 Unknown Rx vomiting #90 tabs ubrogepant 100 mg tablet (Ubrelvy) 100 mg PO .COMPLEX MIGRAINE #14 01/08/25 Unknown Rx tabs diphenhydramine HCl 25 mg capsule 50 mg PO QHS sleep 0 01/19/25 02/19/25 History (Allergy (diphenhydramine)) galcanezumab-gnlm 120 mg/mL 120 mg subcut QMONTH migra kendal 01/19/25 01/09/25 History subcutaneous pen injector (Emgality Pen) melatonin 10 mg capsule 10 mg PO QHS sleep 01/19/25 01/28/25 History carbamazepine 200 mg tablet 200 mg PO TID seizures #90 tabs 02/05/25 Unknown Rx (Tegretol) gabapentin 400 mg capsule 400 mg PO TID neuropathy #90 caps 02/08/25 Unknown Rx gabapentin 800 mg tablet 800 mg PO QHS nerve pain #30 tabs 02/08/25 Unknown Rx 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 sensor (FreeStyle #3 ea 02/15/25 Unknown Rx Es 3 Sensor device) 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,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,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 #1 ea 02/15/25 Unknown Rx (FreeStyle Es 3 [place]) buspirone 5 mg tablet 5 mg PO TID PRN anxiety #90 tabs 02/15/25 Unknown Rx cenobamate 200 mg tablet (Xcopri) 200 mg PO QDAY epile psy 02/15/25 02/20/25 History cephalexin 250 mg capsule 250 mg PO QHS recurrent UTI #90 02/15/25 Unknown Rx caps insulin glargine 100 unit/mL (3 30 unit (0.3 mL) subcu t QAM 02/15/25 02/15/25 Rx mL) subcutaneous pen diabetes #15 mL semaglutide 0.25 mg or 0.5 mg (2 0.25 mg (0.368 mL) fernandez bcut QWEEK 02/15/25 Unknown Rx mg/3 mL) subcutaneous pen injector diabetes #3 mL (Ozempic) tizanidine 2 mg tablet 3 mg (1.5 x 2 mg) PO TID PRN for 02/15/25 Unknown Rx muscle spasm #90 TABLETS insulin lispro 100 unit/mL 3 unit subcut .COMPLEX DIAB ETES 02/16/25 02/15/25 History subcutaneous solution hydroxyzine HCl 25 mg tablet 50 mg PO QHS PRN anxiety 02/17/25 Unknown History ferrous gluconate 324 mg (37.5 mg 324 mg PO BIDLS iron supplement #0 02/20/25 02/19/25 Rx iron) tablet tabs levocarnitine 330 mg tablet 330 mg PO BIDAC seizure #0 tabs 02/20/25 Unknown Rx topiramate 50 mg tablet 50 mg PO 1500,2200 seizure # 0 tabs 02/20/25 Unknown Rx Allergy/AdvReac Type Severity Reaction Status Date / Time adhesive tape Allergy Intermediate Rash Verified 02/15/25 13:02 latex Allergy Rash Verified 02/15/25 13:02 levofloxacin (From Levaquin) Allergy Hives Verified 02/15/25 13:02 ondansetron (From Zofran) Allergy Hives Verified 02/15/25 13:02 buprenorphine AdvReac Severe syncope Verified 02/15/25 13:09 pregabalin (From Lyrica) AdvReac Severe syncope Verified 02/15/25 13:09 nalbuphine (From Nubain) AdvReac Other Verified 02/15/25 13:02 Family History Father Hypertension Hyperlipidemia Asthma Colon cancer Mother Cancer lung Aunt Breast cancer Aunt Breast cancer Grandmother Cancer ovarian Grandfather Cancer prostate Grandmother Cancer Uncle Hypertension Aunt Hypertension Sister Hypertension Asthma Surgical History History of appendectomy Hx of tubal ligation Hx of tonsillectomy Hx of cholecystectomy Social History (Updated 02/20/25 @ 21:[address] Antonio Jenkins MD) household members: other details: Baby sister. 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 Smoking Status: Former smoker quit date: 07/12/21 pack-years: 10 alcohol intake: never substance use type: does not use do you feel safe at home: Yes ROS Constitutional Constitutional: Reports weakness; Denies chills, fever(s) or weight gain ENT HEENT: Denies headache(s), nasal congestion or nasal discharge Cardiovascular Cardiovascular: Denies chest pain or palpitations Respiratory/Chest Respiratory/Chest: Denies cough, excessive phlegm production or shortness of breath with exertion Gastrointestinal Gastrointestinal: Denies abdominal pain, nausea or vomiting Genitourinary Genitourinary: Denies dysuria Musculoskeletal Musculoskeletal: Denies joint pain or joint swelling Integumentary Integumentary: Denies rash or wounds Neurologic Neurologic: Denies focal weakness, numbness or tingling Psychiatric Psychiatric: Denies anxiety, auditory hallucinations, depression, homicidal ideation or suicidal ideation Vital Signs Vital Signs Vital Signs: 02/20/25 12:59 02/20/25 12:59 Temperature 98.4 F Temperature Source Temporal Pulse Rate 71 Pulse Rhythm Regular Pulse Strength Normal (2+) Respiratory Rate 18 Respiratory Effort Normal Non-Labored Respiratory Depth Normal Respiratory Pattern Normal Blood Pressure 127/65 H Blood Pressure Mean 85 Blood Pressure Source Monitor Pulse Ox 96 Oxygen Delivery Method Room Air Room Air Weight Weight: 92.703 kg Body Mass Index (BMI) 33.0 Physical Exam Const alert General Appearance: cooperative HEENT normocephalic Eyes PERRL and EOMs intact bilaterally Neck supple, no JVD and no carotid bruits Resp normal respiratory effort Auscultation: rhonchi throughout Cardio regular rate and regular rhythm GI normal to inspection, nondistended, normoactive bowel sounds, non-tender and non-distended Extremity normal capillary refill General Extremity: Negative for edema Skin no rashes or lesions noted General Skin Exam: no breakdown Psych affect normal Appearance: appropriate Results Lab / Micro Data Labs: Laboratory Results - last 24 hr 02/20/25 17:18: POC Glucose 165 H Assessment & Plan Assessment/Plan (1) Debility: (2) Fever: (3) Acute bronchitis: (4) Seizure disorder: (5) Type 2 diabetes mellitus with hyperglycemia: (6) COPD (chronic obstructive pulmonary disease): QUALIFIERS: COPD type: unspecified COPD Qualified Code(s): J44.9 - Chronic obstructive pulmonary disease, unspecified (7) Essential (primary) hypertension: (8) Pseudobulbar affect: (9) BPPV (benign paroxysmal positional vertigo): (10) GERD (gastroesophageal reflux disease): (11) Migraines: (12) Hyperlipidemia, unspecified: (13) Insomnia: (14) Anxiety: (15) History of CVA (cerebrovascular accident): PLAN: Plan 59 year old female with below past medical history hospitalized for encephalopathy 2/2 seizure disorder, complicated by fever 2/2 acute Klebsiella Pneumoniae bronchitis, admitted to TCU with debility, here for rehabilitation, strengthening, prior to discharge home with sister. * Debility - PT/OT. * Pain - [place] 5/325mg 1 tablet bid, Motrin 600mg tid prn. * Bowel - senna/colace 2 tablets bid, Magnesium citrate 300mL daily prn. * Adult immunization - Administer pneumonia vaccine, covid vaccine, flu vaccine as appropriate. * DVT prophylaxis - Lovenox 40mg sc daily. * COPD - Flovent 110 3 puffs bid, Albuterol 2.5mg neb q2h prn. * Iron deficiency anemia - Ferrous gluconate 325mg bid, Vitamin C 500mg daily. * Hyperlipidemia - Atorvastatin 80mg qhs. * Seizure disorder - Tegretol 200mg tid, Xcopri 200mg daily, Gabapentin 400mg tidcm, 800mg qhs, Carnitor 300mg bidac, Topamax 50mg bid. * K. Pneumoniae bronchitis - Cefdinir 300mg bid thru 02/27/2025. * Recurrent UTI - Keflex 250mg qhs. * Pseudobulbar affect - Nuedexta 20-10mg 1 capsule bid. * Insomnia - Benadryl 50mg qhs, Hydroxyzine 50mg qhs prn, Melatonin 10mg qhs. * Diabetes Mellitus II - Glargine 30 units qam. * GI prophylaxis - Lactobacillus 1 capsule daily. * BPPV - Meclizine 25mg daily prn. * Tinea Corporis - Nystatin powder topical bid. * GERD - Pantoprazole 40mg daily. * Nausea - Promethazine 12.5mg tid prn. * Muscle spasm - Tizanidine 3mg tid prn. * Migraines - Ubrelvy 100mg q2h prn. The following psychotropic medication was present on admission: Buspar 5mg tid prn. Psychotropic medication therapy is indicated for a diagnosis of: Anxiety. Based on my clinical evaluation, continuation of the medication is necessary at this time. Gradual dose reduction plan (select one): ____ GDR will be attempted. Will monitor patient symptoms and behaviors in response to GDR. __x__ GRD contraindicated. 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 The following psychotropic medication was present on admission: Mirtazapine 30mg qhs. Psychotropic medication therapy is indicated for a diagnosis of: Insomnia/Appetite loss/Depression Based on my clinical evaluation, continuation of the medication is necessary at this time. Gradual dose reduction plan (select one): ____ GDR will be attempted. Will monitor patient symptoms and behaviors in response to GDR. _x___ GRD contraindicated. 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
--- NOTE | 2025-02-20 19:36 | NURSING ---
Addendum entered by Emmy Lopez 02/20/25 19:41: Pharmacy called regarding new order for PRN aerosol breathing treatment. D/T patient already having PRN Albuterol INH, this would be duplicate therapy. Consulted Dr. Jenkins via secure-text. New order to D/C PRN albuterol inhaler. Order verified by Dr. Jenkins via secure-text. Clarified order with pharmacy via telephone. Original Note: request for breathing treatment. offered PRN inhalers and pt states she would rather have breathing treatment. secure chat to who ordered Albuterol 2.5 mg aerosol q 2 hours PRN for SOB, wheezing, COPD. Order placed.
[2025-02-20] MEDS: UBROGEPANT 100 MG PO (21:15)
[2025-02-20] MEDS: MELATONIN 10 MG TABLET PO (21:26)
[2025-02-20] MEDS: HYDROcodone Bitartrate/Apap 5/325 Tablet PO (21:26)
[2025-02-20] MEDS: DEXTROMETHORPHAN HBR/QUINIDINE 1 EACH CAPSULE PO (21:26)
[2025-02-20] MEDS: 0.9% Saline Lock 10 ML Syringe IV (21:42)
[2025-02-21 03:16] VITALS: BP 173/83; PULSE 65; RESP 16; TEMP 36.2; O2SAT 96
--- NOTE | 2025-02-21 03:54 | NURSING ---
This nurse heard pt call out for help. Pt was found lying face up on her back in the room in a puddle of urine. Pt states she could not find her call light and self transferred to the restroom without a walker. Pt states she fell and hit the back of her head. VS after fall T 97.1 R 16 HR 65 O2 96 BP 173/83. Pt noted to have a change in mental status with increased confusion. Pt's baseline at beginning of shift was a&ox3. No new injuries observed. Updated Dr. Jenkins of pt's change in status via telephone. New orders received for CT of head without contrast and personal alarms. Orders verified via readback. Alarms in place and functioning. Call light in reach. Education provided to pt regarding use of call light and waiting for staff to assist with transfers. Pt assisted to restroom by staff. Personal hygiene care provided. Pt assisted back to bed by staff.
--- NOTE | 2025-02-21 04:35 | NURSING ---
No prior authorization is needed for CT of head without contrast per [facility] provider portal. Case # [id number]
[2025-02-21] MEDS: UBROGEPANT 100 MG PO (05:31)
--- NOTE | 2025-02-21 06:37 | NURSING ---
This nurse called sister, Enriqueta, to update her of patient's fall and plan of care. Updated her with CT Head results.
[2025-02-21 07:27] LABS: Hematocrit 30.6 % (37-47); Hemoglobin 10.1 g/dL (12.0-15.0); Immature Granulocytes Count 0.070 X10^3/uL (0.0-0.0); Mean Corp Hgb Conc 33.0 g/dL (32-36); Mean Corpuscular Volume 86.9 fL (81-99); Mean Platelet Vol. 9.4 fl (6.2-12.0); NRBC Flagged by Analyzer 0 % (0-5); Platelet Count 310 K/mm3 (150-450); RBC Distribution Width CV 15.8 % (11.6-14.6); RBC Distribution Width SD 49.0 fl (35.1-43.9); Red Blood Count 3.52 M/mm3 (4.2-5.4); White Blood Count 15.3 K/mm3 (4.4-11.0)
[2025-02-21 07:57] LABS: Anion Gap 10 (5-15); BUN 15 mg/dL (4-19); BUN/Creat Ratio 19.5 RATIO (10-20); Calcium,Total 9.3 mg/dL (7.6-11.0); Carbon Dioxide 23.0 mmol/L (21.0-32.0); Chloride 103 mmol/L (98-108); Estimated Creatinine Clearance 93.79 ml/min (50-250); Glucose 101 mg/dL (70-99); Potassium 3.9 mmol/L (3.3-5.1)
[2025-02-21] MEDS: HYDROcodone Bitartrate/Apap 5/325 Tablet PO ×2 (09:37→21:00)
[2025-02-21] MEDS: CENOBAMATE 200 MG TABLET PO (09:38)
[2025-02-21] MEDS: Fluticasone Propionate 110 MCG AER.W.ADAP 3 PUFF INHALATION ×2 (09:40→21:05)
[2025-02-21] MEDS: Insulin Glargine-YFGN 100 UNIT/ML Pen 30 UNIT SC (09:40)
[2025-02-21] MEDS: Lactobacillis Acidophilus 1 CAP PO (09:40)
[2025-02-21] MEDS: Senna/Docusate Sodium 1 Tablet 2 TABLET PO (09:42)
[2025-02-21] MEDS: DEXTROMETHORPHAN HBR/QUINIDINE 1 EACH CAPSULE PO ×2 (09:43→21:05)
[2025-02-21 10:00] VITALS: BP 147/72; PULSE 60; RESP 16; TEMP 36.2; O2SAT 98
--- NOTE | 2025-02-21 12:53 | NURSING ---
Counter Pocket Trimmer Note; Activity Asset: Tammy Carrion is independent in her choice of daily activities. She would like to sit in the day room as much as possible and talk with others. She enjoys board games, cards, tv, reading her bible and word puzzles. She welcomes visits from the branch associate teller and therapy dog when available. Staff will encourage social activities, remind her of group and respect her right to say no.
--- NOTE | 2025-02-21 13:58 | PCM.PN.DRR ---
Documented by User: Lamonte Dyson 02/21/25 16:07 TCU RX Drug Regimen Review Subjective/Objective Subjective/Objective Subjective: TCU Admission. 59 year old female hospitalized for encephalopathy secondary to seizure disorder, complicated by fever secondary to acute Klebsiella Pneumoniae bronchitis. Admitted to TCU for rehabilitation, strengthening, prior to discharge home with sister. Objective: Allergies adhesive tape Allergy (Intermediate, Verified 02/15/25 13:02) Rash latex Allergy (Verified 02/15/25 13:02) Rash levofloxacin (From Levaquin) Allergy (Verified 02/15/25 13:02) Hives ondansetron (From Zofran) Allergy (Verified 02/15/25 13:02) Hives buprenorphine Adverse Reaction (Severe, Verified 02/15/25 13:09) syncope pregabalin (From Lyrica) Adverse Reaction (Severe, Verified 02/15/25 13:09) syncope nalbuphine (From Nubain) Adverse Reaction (Verified 02/15/25 13:02) Other Current Medications Generic Name Dose Route Start Last Admin Trade Name Freq PRN Reason Stop Dose Admin Hydrocodone Bitart/Acetaminophen 1 tablet 02/20/25 22:00 02/21/25 09:37 Hydrocodone Bitartrate/Apap 5/325 Tablet PO 1 tablet BID ELICIA Administration Albuterol Sulfate 2.5 mg 02/20/25 19:21 Albuterol 2.5 Mg/3 Ml Vial.Neb. INHALATION Q2H PRN PRN SHORTNESS OF BREATH Ascorbic Acid 500 mg 02/21/25 10:00 02/21/25 09:42 Ascorbic Acid 500 Mg Tablet PO 500 mg DAILY ELICIA Administration Atorvastatin Calcium 80 mg 02/20/25 22:00 02/20/25 21:26 Atorvastatin Calcium 80 Mg Tablet PO 80 mg QHS ELICIA Administration Buspirone HCl 5 mg 02/20/25 12:53 Buspirone 5 Mg Tablet PO TID PRN anxiety Carbamazepine 200 mg 02/20/25 14:00 02/21/25 05:31 Carbamazepine 200 Mg Tablet PO 200 mg TID ELICIA Administration Cefdinir 300 mg 02/20/25 22:00 02/21/25 09:41 Cefdinir 300 Mg Capsule PO 02/27/25 22:01 300 mg BID ELICIA Administration Cenobamate 200 mg 02/21/25 10:00 02/21/25 09:38 Cenobamate 200 Mg Tablet PO 200 mg DAILY ELICIA Administration Cephalexin 250 mg 02/28/25 22:00 Cephalexin 250 Mg Capsule PO QHS ELICIA Diphenhydramine HCl 50 mg 02/20/25 22:00 02/20/25 21:26 Diphenhydramine 25 Mg Capsule PO 50 mg QHS ELICIA Administration Enoxaparin Sodium 40 mg 02/21/25 07:30 02/21/25 07:55 Enoxaparin 40 Mg/0.4 Ml Syringe SC 40 mg DAILY@0600 ELICIA Administration Ferrous Gluconate 324 mg 02/20/25 17:00 02/20/25 16:56 Ferrous Gluconate 324 Mg Tablet PO 324 mg BIDLS [facility] Administration Fluticasone Propionate 3 puff 02/21/25 10:00 02/21/25 09:40 Fluticasone Propionate 110 Mcg Aer.W.Adap INHALATION 3 puff BID [facility] Administration Gabapentin 800 mg 02/20/25 22:00 02/20/25 21:26 Gabapentin 800 Mg Tablet PO 800 mg QHS [facility] Administration Gabapentin 400 mg 02/20/25 17:45 02/21/25 07:54 Gabapentin 400 Mg Capsule PO 400 mg TIDCM ELICIA Administration Hydroxyzine Pamoate 50 mg 02/20/25 13:00 Hydroxyzine Jacqueline 25 Mg Capsule PO QHS PRN PRN SLEEP Ibuprofen 600 mg 02/20/25 12:53 02/21/25 07:54 Ibuprofen 600 Mg Tablet PO 600 mg TID PRN Administration headache/pain Insulin Glargine 30 unit 02/21/25 10:00 02/21/25 09:40 Insulin Glargine-Yfgn 100 Unit/Ml Pen SC 30 unit QAM [facility] Administration Levocarnitine 330 mg 02/20/25 16:00 02/21/25 07:55 Levocarnitine 330 Mg Tablet PO 330 mg BIDAC ELICIA Administration Magnesium Citrate 300 ml 02/20/25 21:16 Magnesium Citrate 300 Ml PO DAILY PRN PRN CONSTIPATION Meclizine HCl 25 mg 02/20/25 13:00 Meclizine Hcl 25 Mg Tablet PO DAILY PRN PRN VERTIGO Melatonin 10 mg 02/20/25 22:00 02/20/25 21:26 Melatonin 10 Mg Tablet PO 10 mg QHS [facility] Administration Mirtazapine 30 mg 02/20/25 22:00 02/20/25 21:41 Mirtazapine 30 Mg Tablet PO 30 mg QHS ELICIA Administration Nystatin 1 applic 02/20/25 22:00 02/20/25 21:40 Nystatin Powder 15gm Bottle TOPICAL 1 applic BID ELICIA Administration Protocol Pantoprazole Sodium 40 mg 02/21/25 10:00 02/21/25 09:41 Pantoprazole Sodium 40 Mg Tablet PO 40 mg DAILY ELICIA Administration Promethazine HCl 12.5 mg 02/20/25 13:30 Promethazine 25 Mg Tablet PO TID PRN PRN NAUSEA/VOMITING Senna/Docusate Sodium 2 tablet 02/21/25 10:00 02/21/25 09:42 Senna/Docusate Sodium 1 Tablet PO 2 tablet DAILY ELICIA Administration Sodium Chloride 10 - 40 ml 02/20/25 15:01 02/20/25 21:42 0.9% Saline Lock 10 Ml Syringe IV 10 ml UD PRN Administration SALINE FLUSH Tizanidine HCl 4 mg 02/21/25 14:00 Tizanidine Hcl 2 Mg Tablet PO TID [facility] Topiramate 50 mg 02/20/25 15:00 02/20/25 21:28 Topiramate 50 Mg Tablet PO 50 mg 1500,2200 ELICIA Administration Tuberculin PPD 0.1 ml 02/28/25 10:00 Tuberculin,Purif.Prot.Deriv. 50 Tu/Ml Vial ID 02/28/25 10:01 X1 ONE Problem List History of CVA (cerebrovascular accident) (Acute) Anxiety (Acute) Insomnia (Acute) Hyperlipidemia, unspecified (Acute) Migraines (Acute) GERD (gastroesophageal reflux disease) (Acute) BPPV (benign paroxysmal positional vertigo) (Acute) Pseudobulbar affect (Acute) Essential (primary) hypertension (Acute) COPD (chronic obstructive pulmonary disease) (Chronic) Type 2 diabetes mellitus with hyperglycemia (Acute) Seizure disorder (Acute) Acute bronchitis (Acute) Debility (Acute) Fever (Acute) Vital Signs Temp Pulse Resp BP Pulse Ox O2 Del Method 97.2 F L 60 16 147/72 H 98 Room Air 02/21/25 10:00 02/21/25 10:00 02/21/25 10:00 02/21/25 10:00 02/21/25 10:00 02/21/25 10:00 Oxygen Delivery Method Room Air Weight: 92.703 kg Body Mass Index (BMI) 33.0 Sodium 136 mmol/L (133-145) 02/21/25 07:00 Potassium 3.9 mmol/L (3.3-5.1) 02/21/25 07:00 Chloride 103 mmol/L (98-108) 02/21/25 07:00 Carbon Dioxide 23.0 mmol/L (21.0-32.0) 02/21/25 07:00 Anion Gap 10 (5-15) 02/21/25 07:00 BUN 15 mg/dL (4-19) 02/21/25 07:00 Creatinine 0.75 mg/dL (0.70-1.20) 02/21/25 07:00 Est GFR (MDRD) Non-Af 92 (>60) 02/21/25 07:00 BUN/Creatinine Ratio 19.5 RATIO (10-20) 02/21/25 07:00 Glucose 101 mg/dL (70-99) H 02/21/25 07:00 Assessment/Plan: 1. Pain - [place]pler 5/325mg 1 tablet PO BID, Motrin 600mg PO TID PRN pain (Last administration: 02/19 @ 4474). Please monitor pain levels, PRN medication usage, GI bleeding, somnolence, nausea/vomiting, and mental status. 2. Bowel - senna/colace 2 tablets PO BID, Magnesium citrate 300mL PO daily PRN constipation (No administrations at this time). Please monitor for diarrhea, constipation, stomach upset, and PRN medication usage. Last bowel movement: 02/19/25 3. DVT prophylaxis - Lovenox 40mg SQ daily. Please monitor for bleeding such as GI bleed (dark tarry stool), blood in the urine (pink-tinged urine), nosebleeds, and bleeding from the gums. H/H/P: 10.1/30.6/310 4. COPD - Flovent 110 3 puffs BID, Albuterol 2.5mg neb q2h PRN wheezing (Last administration: 02/20 @ 0710). Please monitor for dyspnea and PRN medication usage. 5. Iron deficiency anemia - Ferrous gluconate 324mg PO BIDLS, Vitamin C 500mg PO daily. Please monitor for abdominal pain, constipation, and stool discoloration (dark, green stools). MCV: 86.9, MCH: 28.7, MCHC: 33, Hgb: 10.1 (goal >13), ferritin: 49, TIBC: 281. Iron: 19, Iron saturation: 7%. 6. Hyperlipidemia - Atorvastatin 80mg PO QHS. Please monitor for muscle aches, joint pain and lipid levels. No recent lipid panel. 7. Seizure disorder - Tegretol 200mg PO TID, Xcopri 200mg PO daily, Gabapentin 400mg PO TIDCM, 800mg PO QHS, Carnitor 330mg PO BIDAC, Topamax 50mg PO BID. Please monitor for dizziness, nausea, ataxia, drowsiness, fatigue, and hyperkalemia. Also monitor for signs/symptoms of breakthrough seizures. Last K level: 3.9. 8. K. Pneumoniae bronchitis - Cefdinir 300mg PO BID thru 02/27/2025. Please monitor for diarrhea and signs of worsening infection such as a fever, altered mental status, difficulty breathing, and increasing WBC. Currently afebrile, WBC: 15.3 9. Recurrent UTI - Keflex 250mg PO QHS. Please monitor for urinary symptoms such as difficulty urinating, pain with urination, and urinary frequency. 10. Pseudobulbar affect - Nuedexta 20-10mg 1 capsule PO BID. Please monitor for laughing episodes and dizziness. 11. Insomnia - Benadryl 50mg PO QHS, Hydroxyzine 50mg PO QHS PRN insomnia (Last administration: 02/17 @ 4823), Melatonin 10mg PO QHS. Please monitor for drowsiness during the day, ability to fall asleep and stay asleep, as well as nighttime awakenings. 12. Diabetes Mellitus II - Glargine 30 units SQ QAM. Please monitor blood sugar levels and signs/symptoms of hypoglycemia (last 24Hr B-227) (last A1c 08/07/24: 6.8) 13. GI prophylaxis - Lactobacillus 1 capsule PO daily, Pantoprazole 40mg PO daily. Please monitor for indigestion, acid reflux, and bloating. 14. BPPV - Meclizine 25mg PO daily PRN vertigo (Last administration: 02/19 @ 9652). Please monitor for dry mouth, drowsiness, and episodes of vertigo. 15. Tinea Corporis - Nystatin powder topical BID. Please monitor worsening rash and local skin irritation. 16. Nausea - Promethazine 12.5mg PO TID PRN nausea (No administrations at this time). Please monitor for episodes of nausea. 17. Muscle spasm - Tizanidine 4mg PO TID. Please monitor for weakness, hypotension, and fatigue. 18. Migraines - Ubrelvy 100mg q2h PO PRN migraines (Last administration: 02/21 @ 0531). Please monitor for migraines and PRN medication usage. Assessment/Plan for indications treated with psychotropic medications: 1. Anxiety - Buspar 5 mg PO TID PRN (Last administration: 02/20 @ 0630). Please monitor signs/symptoms of anxiety, PRN medication usage, and drowsiness. 2. Insomnia/Appetite loss/Depression - Mirtazapine 30 mg PO QHS. Please monitor for weight gain, dry mouth, daily appetite, mood, and ability to fall asleep and stay asleep. Monitor for efficacy including resident symptoms, behaviors and indications of distress. Monitor for tolerability including mental status, cognition, excessive sleepiness, withdrawal or decreased participation in activities and decline in physical functioning. Per provider note, will not attempt GDR for buspar or mirtazapine at this time. Medical chart and medication regimen reviewed. The following medication irregularities or issues were identified: Please consider ordering a lipid panel with weekly labs. Date Date of Note: 02/21/25 Documented by User: Dr. Antonio Jenkins MD 02/21/25 17:00 TCU RX Drug Regimen Review Provider Comments Provider responsibility Provider Comments to Recommendations by Pharmacy Agree
[2025-02-21] MEDS: Tuberculin,Purif.prot.deriv. 50 TU/ML Vial 0.1 ML ID (15:25)
[2025-02-21] MEDS: 0.9% Saline Lock 10 ML Syringe IV ×2 (15:28→21:05)
--- NOTE | 2025-02-21 16:30 | CASEMGMT ---
Social Work SW met with patient to complete initial assessment. Introduced self and role. Verified contacts. Patient confirmed code status as full code. Educated to [facility] insurance with NRD 02/21 and continued stay is not guaranteed with each review. Pt's goal is to return home with sister. See SW assessment for further details on pt's history. SW will continue to follow for DC planning. - SW phoned sister, Debbie, to inquire about home situation. Sister confirmed she cares for pt as needed and expressed no concerns with prior situation or plans for pt to return home. [place] SUPERVISOR FIREARMS EQUIPMENT OPERATOR/LABORER/SUPERVISOR
[2025-02-21] MEDS: MELATONIN 10 MG TABLET PO (21:02)
--- NOTE | 2025-02-21 23:33 | NURSING ---
candle warmer noted on esteban, sister in room at bedside, informed sister that we can not have candle warmers due to fire safety, sister unplugged candle warmer, sister will take candle and warmer home tomorrow due to wax being liquid and issues that would cause with transporting it with liquid wax,
[2025-02-22 06:21] LABS: Cholesterol 129 mg/dL (<=200); Low Density Lipoprotein Calc. 53 mg/dL; Triglycerides 212 mg/dL; Very Low Density Lipoprotein 42 mg/dL (5-40); cholesterol:hdl ratio screen 3.86
[2025-02-22] MEDS: CENOBAMATE 200 MG TABLET PO (08:06)
[2025-02-22] MEDS: Fluticasone Propionate 110 MCG AER.W.ADAP 3 PUFF INHALATION ×2 (08:09→22:18)
[2025-02-22] MEDS: Lactobacillis Acidophilus 1 CAP PO (08:10)
[2025-02-22] MEDS: Insulin Glargine-YFGN 100 UNIT/ML Pen 30 UNIT SC (08:10)
[2025-02-22] MEDS: DEXTROMETHORPHAN HBR/QUINIDINE 1 EACH CAPSULE PO ×2 (08:11→22:20)
[2025-02-22] MEDS: Senna/Docusate Sodium 1 Tablet 2 TABLET PO (08:12)
[2025-02-22] MEDS: HYDROcodone Bitartrate/Apap 5/325 Tablet PO ×2 (08:18→22:19)
[2025-02-22 09:34] LABS: Hematocrit 30.9 % (37-47); Hemoglobin 10.1 g/dL (12.0-15.0); Immature Granulocytes Count 0.350 X10^3/uL (0.0-0.0); Mean Corp Hgb Conc 32.7 g/dL (32-36); Mean Corpuscular Volume 92.5 fL (81-99); Mean Platelet Vol. 10.2 fl (6.2-12.0); NRBC Flagged by Analyzer 0 % (0-5); Platelet Count 300 K/mm3 (150-450); RBC Distribution Width CV 14.1 % (11.6-14.6); RBC Distribution Width SD 46.4 fl (35.1-43.9); Red Blood Count 3.34 M/mm3 (4.2-5.4); White Blood Count 10.5 K/mm3 (4.4-11.0)
--- NOTE | 2025-02-22 14:38 | CHAPLAIN ---
Type of Pastoral Visit ___ Initial Visit _x__ Follow-up Visit ___ On-call Visit ___ General Patient Visit ___ Spiritual Assessment ___ Family Conference ___ Bereavement ___ Rapid Response ___ Code Blue ___ Other (describe below) Pastoral Care Referral From _x__ Patient ___ Family ___ Nurse ___ Physician ___ Amphibian Crewmember ___ Wool Presser ___ Other (describe below) Sacrament/Intervention _x__ Active listening ___ Anointing ___ Methodist ___ Bereavement ___ Communion ___ Lisa exploration ___ ___ Life review _x__ Prayer ___ Reconciliation ___ Sacrament of Sick _x__ Supportive presence ___ Wedding ___ Other (describe below) Pastoral Comments patient was seen two days ago in PCU; pt is feeling better and is more hopeful per observation and her statements; sister is in the room with her for support; pt is thankful to have been accepted at [facility] and states that she wants to work on staying stronger and well; pt says that she would like a prayer again today
[2025-02-22 16:00] VITALS: BP 101/69; PULSE 61; RESP 16; TEMP 36.1; O2SAT 99
[2025-02-22] MEDS: MELATONIN 10 MG TABLET PO (22:19)
[2025-02-22] MEDS: 0.9% Saline Lock 10 ML Syringe IV ×2 (22:25→23:16)
[2025-02-23 08:43] VITALS: BP 108/67; PULSE 60; RESP 17; TEMP 36.3; O2SAT 96
[2025-02-23] MEDS: 0.9% Saline Lock 10 ML Syringe IV (08:47)
[2025-02-23] MEDS: DEXTROMETHORPHAN HBR/QUINIDINE 1 EACH CAPSULE PO ×2 (08:49→22:21)
[2025-02-23] MEDS: Lactobacillis Acidophilus 1 CAP PO (08:49)
[2025-02-23] MEDS: Senna/Docusate Sodium 1 Tablet 2 TABLET PO (08:50)
[2025-02-23] MEDS: Insulin Glargine-YFGN 100 UNIT/ML Pen 30 UNIT SC (08:51)
[2025-02-23] MEDS: Fluticasone Propionate 110 MCG AER.W.ADAP 3 PUFF INHALATION ×2 (08:51→22:16)
[2025-02-23] MEDS: HYDROcodone Bitartrate/Apap 5/325 Tablet PO ×2 (08:56→22:15)
[2025-02-23] MEDS: CENOBAMATE 200 MG TABLET PO (08:56)
--- NOTE | 2025-02-23 14:08 | NURSING ---
DR PERALTA NOTIFIED OF PT 172 BLOOD SUGAR AT LUNCH PER PT CONCERN. NO NEW ORDERS, BLOOD SUGAR GOAL [id number]
[2025-02-23 22:15] VITALS: RESP 18
[2025-02-23] MEDS: MELATONIN 10 MG TABLET PO (22:17)
[2025-02-24 05:17] VITALS: PULSE 60; RESP 18; O2SAT 94
[2025-02-24] MEDS: HYDROcodone Bitartrate/Apap 5/325 Tablet PO ×2 (09:58→21:00)
[2025-02-24] MEDS: Fluticasone Propionate 110 MCG AER.W.ADAP 3 PUFF INHALATION ×2 (09:59→21:01)
[2025-02-24] MEDS: DEXTROMETHORPHAN HBR/QUINIDINE 1 EACH CAPSULE PO ×2 (09:59→21:02)
[2025-02-24] MEDS: Lactobacillis Acidophilus 1 CAP PO (09:59)
[2025-02-24 10:00] VITALS: BP 102/63; PULSE 60; RESP 14; TEMP 36.2; O2SAT 95
[2025-02-24] MEDS: Senna/Docusate Sodium 1 Tablet 2 TABLET PO (10:00)
[2025-02-24] MEDS: CENOBAMATE 200 MG TABLET PO (10:01)
[2025-02-24] MEDS: Insulin Glargine-YFGN 100 UNIT/ML Pen 30 UNIT SC (10:03)
--- NOTE | 2025-02-24 18:04 | NURSING ---
Sister Debbie calls and and reports patient is tearful in room because door can't be closed after fall on admission and patient is on alarms. This nurse discussed the safety concerns with sister and that patient is very drowsy and dizzy during the night and we keep the door open for her safety. Sister agreed that having the door open at night makes sense but requests that door be closed during day to limit sound entering patient's room. This nurse states I will discuss this with patient and sister agrees and requests a callback on answer. This nurse and patient discuss safety concerns and patient reports the sounds entering her room is very upsetting and effect her mental health. This nurse offers sympathy and we discuss the reason we keep door open and patient agrees to keep door open during the night and to be on alarms, but to keep door closed during the day. Patient is A/OX3 during day and has not attempted to self transfer.
[2025-02-24] MEDS: 0.9% Saline Lock 10 ML Syringe IV (20:59)
[2025-02-24] MEDS: MELATONIN 10 MG TABLET PO (21:04)
[2025-02-25] MEDS: Lactobacillis Acidophilus 1 CAP PO (10:26)
[2025-02-25] MEDS: Insulin Glargine-YFGN 100 UNIT/ML Pen 30 UNIT SC (10:26)
[2025-02-25] MEDS: Fluticasone Propionate 110 MCG AER.W.ADAP 3 PUFF INHALATION ×2 (10:26→21:29)
[2025-02-25] MEDS: DEXTROMETHORPHAN HBR/QUINIDINE 1 EACH CAPSULE PO ×2 (10:28→21:27)
[2025-02-25] MEDS: Senna/Docusate Sodium 1 Tablet 2 TABLET PO (10:29)
[2025-02-25] MEDS: CENOBAMATE 200 MG TABLET PO (10:37)
[2025-02-25] MEDS: HYDROcodone Bitartrate/Apap 5/325 Tablet PO ×2 (10:37→21:36)
[2025-02-25 12:05] VITALS: PULSE 60; RESP 14; O2SAT 95
[2025-02-25 12:51] VITALS: BP 119/77; PULSE 60; RESP 18; TEMP 36.6; O2SAT 95
--- NOTE | 2025-02-25 16:32 | NURSING ---
MILLWRIGHT APPRENTICE came this nurse and stated pt has a Vape pen in room. This nurse Knocked on pt's door and entered room. This nurse seen green Vape pen in top drawer of pt's night stand. This nurse told pt that it would need to be locked up and given to sister when she comes to visit. Pt educated potential interactions with medication and that we do not allow the use of Vape pens on TCU or anywhere else in the hospital . Pt stated I never seen that rule anywhere. This nurse showed pt where it states that in our TCU handbook which she received. Pt apologized and stated that she is a rule follower. Pts sister Debbie then called this nurse and was asking for a update. Sister was updated and also told that pt had a Vape pen and we don't allow the use of them here and that she is to take it home with her. Shortly after speaking with Debbie on the phone she came to visit pt. Pt is on cameras and alarms d/t recent fall. Sister was caught giving pt a different Vape pen and pt using the pen. Burglar Alarm Installer Bucky NUNEZ came to floor and again educated pt on potential interactions with medications and that we don't know allow the use of them at [facility]. Pt's sister Debbie and pt agreed to not use them. Green Vape was returned to pt's sister.
[2025-02-25] MEDS: MELATONIN 10 MG TABLET PO (21:30)
[2025-02-25] MEDS: 0.9% Saline Lock 10 ML Syringe IV (21:39)
--- NOTE | 2025-02-25 22:57 | NURSING ---
Addendum entered by Mark Booth 02/25/25 23:24: Patient's bed pad alarm was on when nurse left room at approximately 2140, bed pad alarm outside of patient's reach, and bed pad alarm noted to be turned off at approximately 2250 when patient was checked on, bed pad alarm turned back on, Original Note: When nurse left room after passing meds at approximately 2140, made sure patient's call light was clipped to front of night gown, sister in room at bedside, when nurse went in to check on patient at approximately 2250, patient was sleeping and call light was unclipped from patient's night gown and was sitting on night stand out of patients reach, call light reclipped to front of patients night gown, when asked patient how call light got unclipped from gown and placed on night stand, patient did not know, patient stated remembered nurse clipping call light to front of night gown earlier.
[2025-02-26 09:09] VITALS: BP 112/51; PULSE 61; RESP 16; TEMP 36.1; O2SAT 96
[2025-02-26] MEDS: Senna/Docusate Sodium 1 Tablet 2 TABLET PO (09:10)
[2025-02-26] MEDS: Lactobacillis Acidophilus 1 CAP PO (09:11)
[2025-02-26] MEDS: DEXTROMETHORPHAN HBR/QUINIDINE 1 EACH CAPSULE PO ×2 (09:11→22:24)
[2025-02-26] MEDS: Fluticasone Propionate 110 MCG AER.W.ADAP 3 PUFF INHALATION ×2 (09:12→22:12)
[2025-02-26] MEDS: HYDROcodone Bitartrate/Apap 5/325 Tablet PO ×2 (09:14→22:14)
[2025-02-26] MEDS: Insulin Glargine-YFGN 100 UNIT/ML Pen 30 UNIT SC (09:19)
[2025-02-26 09:20] VITALS: O2SAT 95
[2025-02-26] MEDS: CENOBAMATE 200 MG TABLET PO (09:21)
--- NOTE | 2025-02-26 09:57 | CASEMGMT ---
Social Work SW phoned [facility] to inquire about getting pt established with another provider. [facility] stated the provider is hired, but is not yet seeing new patients, though the pt is on the list to be called for scheduling once the provider can start seeing pts. SW inquired if another provider can see the pt for counseling in the meantime, and [facility] denied as they are not accepting new patients. There is a waitlist for patients to be seen. T[facility] explained the pt will be contacted as soon as possible. SW appreciative and will update pt. [place] WATCH DIAL PRINTER ART EDITOR
[2025-02-26 10:45] VITALS: BP 111/52; PULSE 62
--- NOTE | 2025-02-26 11:10 | CASEMGMT ---
Social Work SW presented to pt's room to complete MDS assessment, when pt was noting to not feeling herself and three RNs were assessing pt at bedside. SW notified pt this worker was present if support was needed. SW remained available in room while nursing continued assessing pt. SW intervened as necessary to attempt to calm patient down from feeling uneasy with changes and questions. Once nursing completed their assessment, SW voiced this worker needed to complete MDS and RN agreed for this worker to assess for any changes with BIMS. SW completed BIMs () and PHQ-2 (). Pt reported her depression has not gotten worse over the last two weeks, thus, resulting in a 0 score. Pt expressed feeling scared with changes and that is why she notified staff. SW commended pt for voicing those changes as she knows her body best, and staff are here to assist. Pt stated she usually has seizures during the nighttime, but now she is worried. SW inquired if pt wanted the seizure pads placed back on pt's bed AAT. Pt agreed. Pt also shared she is having trouble with staff standing in the bathroom with her. SW explained d/t safety, staff cannot leave pt unattended. SW offered for staff to maintain distance at the door and ensure pt used call-light or voice when she needed assistance. Pt agreed and appreciative of compromise. - SW notified manager quantitative and two floor RN that were present in pt's room. [place] HAND II CUTTER COMMERCIAL ACCOUNT MANAGER
[2025-02-26] MEDS: 0.9% Normal Saline (1000mL) 1,000 ML 999 ML IV (11:16)
--- NOTE | 2025-02-26 14:47 | CASEMGMT ---
Social Work SW received call from , Debbie, with concerns. SW provided active listening while sister shared concerns and relayed information received from pt. Sister stated, we didn't know she couldn't vape. SW educated to [facility] being a tobacco free campus, and it was appropriate for staff to remove vape from room. Sister stated pt had an absent seizure yesterday and staff didn't observed a change in pt's demeanor. Sister reported she felt staff should be trained to notice those changes. also shared pt's report of the RN asking pt today during incident if pt had since vaped, which may be causing a change in pt's condition with a possible drug interaction, etc. Pt expressed to not appreciating that question or the tone of the RN. SW explained this worker cannot speak to the events over the weekend or any medical questioning pertaining to pt's seizure yesterday. SW explained that this worker was present during pt's change in condition this morning, along with 4 other staff members in the pt's room, including the RN named. SW described RN's interactions with pt as professional, kind, and that RN asked if there was anything else pt took outside of prescribed medications, such as vaping. Although, SW acknowledged the pt may have perceived it differently. SW explained to that this worker cannot infer on any medical information pertaining to the seizure activity, but noted the staff is learning the patient's conditions, tendencies, and the pt knows her body the best; encouraged pt this morning to continue notifying staff if she feels different in order to receive the appropriate treatment. SW offered to transfer the call to the mortgage collector to receive further information. agreed and appreciative of this worker. SW provided brief hand off to charge nurse before transferring the call. SW will continue to follow. [place] HOME ASSESSMENT NURSE GLASS UNLOADING EQUIPMENT TENDER
--- NOTE | 2025-02-26 15:45 | NURSING ---
Received call from sister Debbie around 1500 who'd been speaking with SW. Debbie recounted her side of the events over the last few days. Describes what she believes to have been seizure activity yesterday when visiting resident. She reports her being very sleepy, slurred speech, somewhat confused. Says she doesn't have typical seizures, just stares off for a minute. Reports her sister will take hours to act normal after seizure activity. She then talked about the vape and how staff had accused resident of having 2 vapes when she only has one. She felt staff was very accusatory and network control supervisor was as well when in room. RN noted that nursing has to address concerns such as the vape, and that these conversations aren't comfortable but necessary. She said they weren't aware vaping wasn't allowed but of course they both are now. She then mentioned the urine testing and asked what that was for. Informed her it was for a drug screen. Let her know physician needs to verify there isn't anything else in her system causing these symptoms so staff can appropriately treat her. Debbie was accepting of information and wanted to make sure her sister knew why test was being done. Let her know nursing had updated resident on reason for test. She was thankful for discussion and said she just wanted to make sure everyone was on the same page. Let her know she is welcome to reach out to this nurse anytime with questions. Also let her know RN would leave note for Dr. Jenkins about her suspecting seizure activity over last couple days.
[2025-02-26 19:03] LABS: Barbiturate Urine NEGATIVE (< 200 ng/mL); Benzodiazepine Urine NEGATIVE (< 200 ng/mL); PCP Urine NEGATIVE (< 25 ng/mL); THC Urine NEGATIVE (< 50 ng/mL)
[2025-02-26] MEDS: MELATONIN 10 MG TABLET PO (22:13)
[2025-02-26] MEDS: 0.9% Saline Lock 10 ML Syringe IV (22:28)
[2025-02-26 23:35] VITALS: PULSE 69; RESP 20
[2025-02-26] MEDS: Albuterol 2.5 MG/3 ML VIAL.NEB. INHALATION (23:35)
[2025-02-26 23:56] LABS: Barbiturate Urine NEGATIVE (< 200 ng/mL); Benzodiazepine Urine NEGATIVE (< 200 ng/mL); PCP Urine NEGATIVE (< 25 ng/mL); THC Urine NEGATIVE (< 50 ng/mL)
--- NOTE | 2025-02-27 01:58 | NURSING ---
This nurse received in report patient had a tox screen done in previous shift, results of that tox screen came back negative despite the intake of [place]. This nurse notified , of results and recommended a straight cath urine and repeat labs. Telephone order read back, orders of straight cath urine and repeat labs. Repeat lab result also came back negative. Communication note left for to review in the morning. Notified RN. Will continue to monitor.
[2025-02-27 09:00] VITALS: BP 92/43; PULSE 60; RESP 18; TEMP 36.4; O2SAT 98
--- NOTE | 2025-02-27 09:13 | NURSING ---
School Bus Technician Note; MDS for 02/27/2025 Complete
[2025-02-27] MEDS: Lactobacillis Acidophilus 1 CAP PO (09:33)
[2025-02-27] MEDS: Fluticasone Propionate 110 MCG AER.W.ADAP 3 PUFF INHALATION ×2 (09:34→21:42)
[2025-02-27] MEDS: DEXTROMETHORPHAN HBR/QUINIDINE 1 EACH CAPSULE PO ×2 (09:34→21:39)
[2025-02-27] MEDS: Senna/Docusate Sodium 1 Tablet 2 TABLET PO (09:35)
[2025-02-27] MEDS: HYDROcodone Bitartrate/Apap 5/325 Tablet PO ×2 (09:40→21:54)
[2025-02-27] MEDS: CENOBAMATE 200 MG TABLET PO (09:41)
[2025-02-27] MEDS: Insulin Glargine-YFGN 100 UNIT/ML Pen 30 UNIT SC (09:44)
--- NOTE | 2025-02-27 10:18 | NURSING ---
Resident requested her meal for dinner be cancelled, she has food from her sister in the fridge. Meal cancelled.
--- NOTE | 2025-02-27 13:56 | NURSING ---
Patient had an episode of dizziness with RESPIRATORY THERAPY MANAGER while transferring and was lowered to the floor at 1125. Per report, eyes rolling back in head and speech slurred. Patient assisted back to bed and TRAINING ENGINEER called and team arrived at 1127. Dr. Luu assessed and reviewed med list and labs and had NNO. Patient A/Ox3 but lethargic and some slurred speech still noted. Patient laying in bed and denies needs at 1140. At 1150 patient calls this nurse back and states her underwear is wet and this is because she had an absent seizure that caused her to fall. Patient reports she has never urinated herself in the past with a seizure. Patient is assisted into a change of pants and patient is able to pull up own pants and reposition in the bed without assistance. Patient denies further needs at this time. Both Debbie and Enriqueta updated and Dr. Jenkins made aware.
[2025-02-27 16:45] VITALS: BMI 33.2
--- NOTE | 2025-02-27 17:17 | NURSING ---
Addendum entered by Negin Khalil 02/27/25 17:19: ATB changed to Augmentin x1week. Original Note: Patient C/O continued productive cough and wheezing. Cefdinir complete 02/28. Dr. Jenkins made aware and NO fro Medrol dose pack and doxycycline x1 week. Patient made aware.
[2025-02-27] MEDS: MethylPREDNISolone DosePak 4 MG BOX PO ×2 (18:24→21:41)
[2025-02-27] MEDS: 0.9% Saline Lock 10 ML Syringe IV ×2 (18:26→21:42)
[2025-02-27] MEDS: UBROGEPANT 100 MG PO ×2 (19:54→21:43)
[2025-02-27] MEDS: COVID VAC 24-25 (12UP)(MODERNA)/PF 50 MCG/0.5 ML SYRINGE IM (21:32)
[2025-02-27] MEDS: MELATONIN 10 MG TABLET PO (21:38)
[2025-02-27 21:45] VITALS: PULSE 60; RESP 16
[2025-02-27] MEDS: Albuterol 2.5 MG/3 ML VIAL.NEB. INHALATION (21:45)
[2025-02-28 00:36] VITALS: PULSE 65; RESP 16; O2SAT 96
--- NOTE | 2025-02-28 01:02 | NURSING ---
Addendum entered by Emmy Lopez 02/28/25 06:30: Patient difficult to arouse this morning for AM medication administration. Patient's speech slurred and unclear at times. Patient denies feeling drowsy. Written communication for Dr. Jenkins. Verbal communication to dayshift TCU staff to transfer patient assist x2 until symptoms resolve. Call light within reach. Patient denies further assistance. Original Note: Pt requesting Buspar at this time. States she has been feeling anxious/agitated since the fall 02/27/25. Education provided to pt regarding increased risk of sedation related to Buspar administration. Educated pt that this medication also poses a higher risk of falls. Pt displaying signs of increased drowsiness following HS medication administration. Written communication left for Dr. Jenkins regarding symptoms. Following education, pt still requesting PRN Buspar. Per pt request, PRN medication administered. Pt agrees to utilize bedside commode if she becomes too unsteady following medication administration to walk to restroom. Call light within reach. Alarms on and functioning. Pt denies further assistance at this time.
[2025-02-28 05:47] LABS: Hematocrit 28.8 % (37-47); Hemoglobin 9.3 g/dL (12.0-15.0); Immature Granulocytes Count 0.120 X10^3/uL (0.0-0.0); Mean Corp Hgb Conc 32.3 g/dL (32-36); Mean Corpuscular Volume 94.4 fL (81-99); Mean Platelet Vol. 10.2 fl (6.2-12.0); NRBC Flagged by Analyzer 0 % (0-5); Platelet Count 233 K/mm3 (150-450); RBC Distribution Width CV 15.1 % (11.6-14.6); RBC Distribution Width SD 50.1 fl (35.1-43.9); Red Blood Count 3.05 M/mm3 (4.2-5.4); White Blood Count 9.8 K/mm3 (4.4-11.0)
[2025-02-28 06:13] LABS: Anion Gap 12 (5-15); BUN 18 mg/dL (4-19); BUN/Creat Ratio 26.4 RATIO (10-20); Calcium,Total 9.0 mg/dL (7.6-11.0); Carbon Dioxide 19.9 mmol/L (21.0-32.0); Chloride 102 mmol/L (98-108); Estimated Creatinine Clearance 104.02 ml/min (50-250); Glucose 213 mg/dL (70-99); Potassium 4.5 mmol/L (3.3-5.1)
[2025-02-28 09:16] VITALS: BP 113/55; PULSE 60; RESP 20; TEMP 35.6; O2SAT 97
[2025-02-28] MEDS: Albuterol 2.5 MG/3 ML VIAL.NEB. INHALATION (09:19)
[2025-02-28] MEDS: 0.9% Saline Lock 10 ML Syringe IV ×2 (09:19→21:31)
[2025-02-28 09:20] VITALS: PULSE 71; RESP 18
[2025-02-28] MEDS: Fluticasone Propionate 110 MCG AER.W.ADAP 3 PUFF INHALATION ×2 (09:20→21:28)
[2025-02-28] MEDS: Insulin Glargine-YFGN 100 UNIT/ML Pen 30 UNIT SC (09:20)
[2025-02-28] MEDS: Lactobacillis Acidophilus 1 CAP PO (09:21)
[2025-02-28] MEDS: Senna/Docusate Sodium 1 Tablet 2 TABLET PO (09:22)
[2025-02-28] MEDS: UBROGEPANT 100 MG PO ×3 (09:23→21:30)
--- NOTE | 2025-02-28 09:23 | CASEMGMT ---
Social Work IDT met with patient and two dtrs for care plan meeting. Discussed patient's progress in PT/OT/SN/RDN. Educated to [facility] [facility] insurance with NRD 03/02, EDC 03/06. Provided pt/family with written communication of insurance process and copay coverage during stay. Pt's goal is to return home living with sisterDebbie. Offered therapy training with sister, as abilities vary daily with pt. Sister scheduled for 03/01 at 1300. SW offered HHC vs OP therapy and DME needs at DC, as needed. Pt prefers to return to [facility] and have a w/c. SW to coordinate. Will continue to follow for DC planning. 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
[2025-02-28] MEDS: MethylPREDNISolone DosePak 4 MG BOX PO ×4 (09:24→21:28)
[2025-02-28] MEDS: DEXTROMETHORPHAN HBR/QUINIDINE 1 EACH CAPSULE PO ×2 (09:25→21:29)
[2025-02-28] MEDS: HYDROcodone Bitartrate/Apap 5/325 Tablet PO ×2 (09:30→21:29)
[2025-02-28] MEDS: CENOBAMATE 200 MG TABLET PO (09:31)
[2025-02-28] MEDS: Tuberculin,Purif.prot.deriv. 50 TU/ML Vial 0.1 ML ID (12:07)
--- NOTE | 2025-02-28 12:24 | NURSING ---
NOTIFIED DR PERALTA OF BLOOD SUGAR 350 WITH R' BEING ON MEDROL. N.O. LISPRO 10u TID AC.
[2025-02-28 13:34] VITALS: PULSE 100; RESP 18; O2SAT 96
[2025-02-28 19:32] VITALS: PULSE 66; RESP 18
[2025-02-28] MEDS: MELATONIN 10 MG TABLET PO (21:29)
[2025-03-01] MEDS: 0.9% Saline Lock 10 ML Syringe IV ×2 (00:18→21:30)
[2025-03-01 00:48] VITALS: PULSE 63; RESP 16
[2025-03-01 06:38] VITALS: PULSE 64; RESP 16; O2SAT 92
[2025-03-01] MEDS: Lactobacillis Acidophilus 1 CAP PO (07:48)
[2025-03-01] MEDS: MethylPREDNISolone DosePak 4 MG BOX PO ×4 (07:48→21:23)
[2025-03-01] MEDS: Fluticasone Propionate 110 MCG AER.W.ADAP 3 PUFF INHALATION ×2 (07:49→21:21)
[2025-03-01] MEDS: Insulin Glargine-YFGN 100 UNIT/ML Pen 30 UNIT SC (07:49)
[2025-03-01] MEDS: Senna/Docusate Sodium 1 Tablet 2 TABLET PO (07:51)
[2025-03-01] MEDS: DEXTROMETHORPHAN HBR/QUINIDINE 1 EACH CAPSULE PO ×2 (07:51→21:25)
[2025-03-01] MEDS: CENOBAMATE 200 MG TABLET PO (07:56)
[2025-03-01 08:07] VITALS: BP 104/59; PULSE 60; RESP 17; TEMP 35.9; O2SAT 96
[2025-03-01] MEDS: HYDROcodone Bitartrate/Apap 5/325 Tablet PO ×2 (09:55→21:16)
--- NOTE | 2025-03-01 10:49 | CASEMGMT ---
Social Work Pt stopped SW in the hallway with sister, requesting to set DC date. SW inquired about wanting to complete therapy training this afternoon first. Both denied and sister assured SW she can care for pt's needs. SW agreed to set DC date. Provided options and both prefer DC 03/04. SW reviewed HHC vs OP. Pt prefers OP PT at [facility] and 20 in. w/c. SW to coordinate. Sister to transport. - SW faxed referral to [facility] for PT. SW sent referral to [facility] for w/c. 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
--- NOTE | 2025-03-01 11:30 | MDS.RN ---
Information for the MDS was obtained from review of the clinical record, interview of resident, staff, and direct observation of resident?s care.
[2025-03-01 14:15] VITALS: PULSE 75; RESP 18
[2025-03-01] MEDS: Albuterol 2.5 MG/3 ML VIAL.NEB. INHALATION (14:15)
--- NOTE | 2025-03-01 19:22 | NURSING ---
Sister in room all day this shift per sister gave pt only 500ml of fluid. Pt had multiple drinks on table.
[2025-03-01 19:25] VITALS: PULSE 70; RESP 16
--- NOTE | 2025-03-01 19:59 | DS.PCM_ITS ---
Providers Date of Admission: 02/20/25 Primary Care Physician: Dr. Riddhi Simpson MD Reason For Visit: FEVER,CONFUSION,SEIZURES Diagnosis Discharge Diagnosis (1) Debility: Status: Acute Code(s): R53.81 - Other malaise (2) Fever: Status: Acute Code(s): R50.9 - Fever, unspecified (3) Acute bronchitis: Status: Acute Code(s): J20.9 - Acute bronchitis, unspecified (4) Seizure disorder: Status: Acute Code(s): G40.909 - Epilepsy, unspecified, not intractable, without status epilepticus (5) Type 2 diabetes mellitus with hyperglycemia: Status: Acute Code(s): E11.65 - Type 2 diabetes mellitus with hyperglycemia (6) COPD (chronic obstructive pulmonary disease): Status: Chronic Code(s): J44.9 - Chronic obstructive pulmonary disease, unspecified Qualifiers: COPD type: unspecified COPD Qualified Code(s): J44.9 - Chronic obstructive pulmonary disease, unspecified (7) Essential (primary) hypertension: Status: Acute Code(s): I10 - Essential (primary) hypertension (8) Pseudobulbar affect: Status: Acute Code(s): F48.2 - Pseudobulbar affect (9) BPPV (benign paroxysmal positional vertigo): Status: Acute Code(s): H81.10 - Benign paroxysmal vertigo, unspecified ear (10) GERD (gastroesophageal reflux disease): Status: Acute Code(s): K21.9 - Gastro-esophageal reflux disease without esophagitis (11) Migraines: Status: Acute Code(s): G43.909 - Migraine, unspecified, not intractable, without status migrainosus (12) Hyperlipidemia, unspecified: Status: Acute Code(s): E78.5 - Hyperlipidemia, unspecified (13) Insomnia: Status: Acute Code(s): G47.00 - Insomnia, unspecified (14) Anxiety: Status: Acute Code(s): F41.9 - Anxiety disorder, unspecified (15) History of CVA (cerebrovascular accident): Status: Acute Code(s): Z86.73 - Personal history of transient ischemic attack (TIA), and cerebral infarction without residual deficits Plan 59 year old female with below past medical history hospitalized for encephalopathy 2/2 seizure disorder, complicated by fever 2/2 acute Klebsiella Pneumoniae bronchitis, admitted to TCU with debility, here for rehabilitation, strengthening, prior to discharge home with sister. * Debility - PT/OT. * Pain - [place] 5/325mg 1 tablet bid, Motrin 600mg tid prn. * Bowel - senna/colace 2 tablets bid, Magnesium citrate 300mL daily prn. * Adult immunization - Administer pneumonia vaccine, covid vaccine, flu vaccine as appropriate. * DVT prophylaxis - Lovenox 40mg sc daily. * COPD - Flovent 110 3 puffs bid, Albuterol 2.5mg neb q2h prn. * Iron deficiency anemia - Ferrous gluconate 325mg bid, Vitamin C 500mg daily. * Hyperlipidemia - Atorvastatin 80mg qhs. * Seizure disorder - Tegretol 200mg tid, Xcopri 200mg daily, Gabapentin 400mg tidcm, 800mg qhs, Carnitor 300mg bidac, Topamax 50mg bid. * K. Pneumoniae bronchitis - Cefdinir 300mg bid thru 02/27/2025. * Recurrent UTI - Keflex 250mg qhs. * Pseudobulbar affect - Nuedexta 20-10mg 1 capsule bid. * Insomnia - Benadryl 50mg qhs, Hydroxyzine 50mg qhs prn, Melatonin 10mg qhs. * Diabetes Mellitus II - Glargine 30 units qam. * GI prophylaxis - Lactobacillus 1 capsule daily. * BPPV - Meclizine 25mg daily prn. * Tinea Corporis - Nystatin powder topical bid. * GERD - Pantoprazole 40mg daily. * Nausea - Promethazine 12.5mg tid prn. * Muscle spasm - Tizanidine 3mg tid prn. * Migraines - Ubrelvy 100mg q2h prn. The following psychotropic medication was present on admission: Buspar 5mg tid prn. Psychotropic medication therapy is indicated for a diagnosis of: Anxiety. Based on my clinical evaluation, continuation of the medication is necessary at this time. Gradual dose reduction plan (select one): ____ GDR will be attempted. Will monitor patient symptoms and behaviors in response to GDR. __x__ GRD contraindicated. 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 The following psychotropic medication was present on admission: Mirtazapine 30mg qhs.
--- NOTE | 2025-03-01 19:59 | PCM.DC.SUM ---
Providers Date of Admission: 02/20/25 Primary Care Physician: Dr. Riddhi Simpson MD Reason For Visit: FEVER,CONFUSION,SEIZURES Diagnosis Discharge Diagnosis (1) Debility: Status: Acute Code(s): R53.81 - Other malaise (2) Fever: Status: Acute Code(s): R50.9 - Fever, unspecified (3) Acute bronchitis: Status: Acute Code(s): J20.9 - Acute bronchitis, unspecified (4) Seizure disorder: Status: Acute Code(s): G40.909 - Epilepsy, unspecified, not intractable, without status epilepticus (5) Type 2 diabetes mellitus with hyperglycemia: Status: Acute Code(s): E11.65 - Type 2 diabetes mellitus with hyperglycemia (6) COPD (chronic obstructive pulmonary disease): Status: Chronic Code(s): J44.9 - Chronic obstructive pulmonary disease, unspecified Qualifiers: COPD type: unspecified COPD Qualified Code(s): J44.9 - Chronic obstructive pulmonary disease, unspecified (7) Essential (primary) hypertension: Status: Acute Code(s): I10 - Essential (primary) hypertension (8) Pseudobulbar affect: Status: Acute Code(s): F48.2 - Pseudobulbar affect (9) BPPV (benign paroxysmal positional vertigo): Status: Acute Code(s): H81.10 - Benign paroxysmal vertigo, unspecified ear (10) GERD (gastroesophageal reflux disease): Status: Acute Code(s): K21.9 - Gastro-esophageal reflux disease without esophagitis (11) Migraines: Status: Acute Code(s): G43.909 - Migraine, unspecified, not intractable, without status migrainosus (12) Hyperlipidemia, unspecified: Status: Acute Code(s): E78.5 - Hyperlipidemia, unspecified (13) Insomnia: Status: Acute Code(s): G47.00 - Insomnia, unspecified (14) Anxiety: Status: Acute Code(s): F41.9 - Anxiety disorder, unspecified (15) History of CVA (cerebrovascular accident): Status: Acute Code(s): Z86.73 - Personal history of transient ischemic attack (TIA), and cerebral infarction without residual deficits Plan 59 year old female with below past medical history hospitalized for encephalopathy 2/2 seizure disorder, complicated by fever 2/2 acute Klebsiella Pneumoniae bronchitis, admitted to TCU with debility, here for rehabilitation, strengthening, prior to discharge home with sister. Debility - PT/OT. Pain - Qulin 5/325mg 1 tablet bid, Motrin 600mg tid prn. Bowel - senna/colace 2 tablets bid, Magnesium citrate 300mL daily prn. Adult immunization - Administer pneumonia vaccine, covid vaccine, flu vaccine as appropriate. DVT prophylaxis - Lovenox 40mg sc daily. COPD - Flovent 110 3 puffs bid, Albuterol 2.5mg neb q2h prn. Iron deficiency anemia - Ferrous gluconate 325mg bid, Vitamin C 500mg daily. Hyperlipidemia - Atorvastatin 80mg qhs. Seizure disorder - Tegretol 200mg tid, Xcopri 200mg daily, Gabapentin 400mg tidcm, 800mg qhs, Carnitor 300mg bidac, Topamax 50mg bid. K. Pneumoniae bronchitis - Cefdinir 300mg bid thru 02/27/2025. Recurrent UTI - Keflex 250mg qhs. Pseudobulbar affect - Nuedexta 20-10mg 1 capsule bid. Insomnia - Benadryl 50mg qhs, Hydroxyzine 50mg qhs prn, Melatonin 10mg qhs. Diabetes Mellitus II - Glargine 30 units qam. GI prophylaxis - Lactobacillus 1 capsule daily. BPPV - Meclizine 25mg daily prn. Tinea Corporis - Nystatin powder topical bid. GERD - Pantoprazole 40mg daily. Nausea - Promethazine 12.5mg tid prn. Muscle spasm - Tizanidine 3mg tid prn. Migraines - Ubrelvy 100mg q2h prn. The following psychotropic medication was present on admission: Buspar 5mg tid prn. Psychotropic medication therapy is indicated for a diagnosis of: Anxiety. Based on my clinical evaluation, continuation of the medication is necessary at this time. Gradual dose reduction plan (select one): ____ GDR will be attempted. Will monitor patient symptoms and behaviors in response to GDR. __x__ GRD contraindicated. 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 The following psychotropic medication was present on admission: Mirtazapine 30mg qhs. Psychotropic medication therapy is indicated for a diagnosis of: Insomnia/Appetite loss/Depression Based on my clinical evaluation, continuation of the medication is necessary at this time. Gradual dose reduction plan (select one): ____ GDR will be attempted. Will monitor patient symptoms and behaviors in response to GDR. _x___ GRD contraindicated. 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 Medications at Discharge Home Medications albuterol sulfate 90 mcg/actuation aerosol inhaler 2 puff inhalation .q6prn Wheezing 09/03/22 insulin syr/ndl U100 half shirley 0.5 mL 31 gauge x 5/16 (Droplet Insulin Syringe (half unit)) 09/03/22 dextromethorphan 20 mg-quinidine 10 mg capsule (Nuedexta) 1 cap PO BID DEPRESSION 02/06/23 meclizine 25 mg tablet 25 mg PO DAILY PRN vertigo 09/04/23 nystatin 100,000 unit/gram topical powder (Nyamyc) 1 applic topical BID RASH 09/04/23 Lactobacillus rhamnosus GG 10 billion cell capsule (Culturelle) 1 cap PO DAILY recurrent uti 05/09/24 ascorbic acid (vitamin C) 500 mg tablet 500 mg PO QDAY see pcp 05/09/24 cranberry fruit 450 mg tablet 450 mg PO TID see pcp 05/09/24 atorvastatin 80 mg tablet 80 mg PO QHS cholesterol #90 tabs 10/30/24 flash glucose scanning reader (FreeStyle Es 2 [place]) #1 ea 10/30/24 flash glucose sensor (FreeStyle Es 2 Sensor kit) #3 ea 10/30/24 handicap placard #1 ea 11/15/24 mirtazapine 15 mg tablet 30 mg PO QHS sleep 12/14/24 omeprazole 40 mg capsule,delayed release 40 mg PO DAILY GERD #90 caps 01/03/25 ibuprofen 600 mg tablet 600 mg PO TID PRN headache/pain #90 tabs 01/08/25 promethazine 12.5 mg tablet 12.5 mg PO TID PRN nausea and vomiting #90 tabs 01/08/25 ubrogepant 100 mg tablet (Ubrelvy) 100 mg PO .COMPLEX MIGRAINE #14 tabs 01/08/25 diphenhydramine HCl 25 mg capsule (Allergy (diphenhydramine)) 50 mg PO QHS sleep 01/19/25 galcanezumab-gnlm 120 mg/mL subcutaneous pen injector (Emgality Pen) 120 mg subcut QMONTH migraines 01/19/25 melatonin 10 mg capsule 10 mg PO QHS sleep 01/19/25 carbamazepine 200 mg tablet (Tegretol) 200 mg PO TID seizures #90 tabs 02/05/25 gabapentin 400 mg capsule 400 mg PO TID neuropathy #90 caps 02/08/25 gabapentin 800 mg tablet 800 mg PO QHS nerve pain #30 tabs 02/08/25 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 sensor (FreeStyle Es 3 Sensor device) #3 ea 02/15/25 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,town marshal,cont (FreeStyle Es 3 [place]) #1 ea 02/15/25 buspirone 5 mg tablet 5 mg PO TID PRN anxiety #90 tabs 02/15/25 cephalexin 250 mg capsule 250 mg PO QHS recurrent UTI #90 caps 02/15/25 insulin glargine 100 unit/mL (3 mL) subcutaneous pen 30 unit (0.3 mL) subcut QAM diabetes #15 mL 02/15/25 tizanidine 2 mg tablet 3 mg (1.5 x 2 mg) PO TID PRN for muscle spasm #90 TABLETS 02/15/25 hydroxyzine HCl 25 mg tablet 50 mg PO QHS PRN anxiety 02/17/25 ferrous gluconate 324 mg (37.5 mg iron) tablet 324 mg PO BIDLS iron supplement #0 tabs 02/20/25 levocarnitine 330 mg tablet 330 mg PO BIDAC seizure #0 tabs 02/20/25 topiramate 50 mg tablet 50 mg PO 1500,2200 seizure #0 tabs 02/20/25 cenobamate 200 mg tablet (Xcopri) 200 mg PO DAILY 30 days #30 tabs 03/01/25 hydrocodone-acetaminophen 5-325mg 5mg-325mg 1 tab PO BID 7 days #14 tabs 03/01/25 Hospital Course Operations None Procedures None Summary of Care Provided Minutes Spent on Discharge: 35 Hospital Course: 59 year old female with below past medical history hospitalized for encephalopathy 2/2 seizure disorder, complicated by fever 2/2 acute Klebsiella Pneumoniae bronchitis, admitted to TCU with debility, here for rehabilitation, strengthening, prior to discharge home with sister. Discharge home with sister 03/04/2025, [employer] PT, 20 inch wheelchair. 20 inch wheelchair: Patient has mobility limitation that cannot be sufficiently resolved by using a cane or walker. Use of a w/c will imprve the participating of ADLs on a regular basis in the home. Patient can independently self-propel. Physical Exam Const alert General Appearance: cooperative HEENT normocephalic Eyes PERRL and EOMs intact bilaterally Neck supple, no JVD and no carotid bruits Resp normal respiratory effort, normal air movement and clear to auscultation bilaterally Cardio regular rate and regular rhythm GI normal to inspection, nondistended, normoactive bowel sounds, non-tender and non-distended Extremity normal capillary refill General Extremity: Negative for edema Skin no rashes or lesions noted General Skin Exam: no breakdown Psych affect normal Appearance: appropriate Weight / BMI Weight Weight: 93.712 kg Body Mass Index (BMI) 33.2 ABG / Lab / Microbiology Data 02/28/25 05:27 02/28/25 05:27 Laboratory: Laboratory Results - last 24 hr 02/28/25 21:30: POC Glucose 150 H 03/01/25 06:05: POC Glucose 135 H 03/01/25 11:05: POC Glucose 164 H 03/01/25 15:45: POC Glucose 126 H Microbiology: Microbiology 03/01/25 05:39 Nasal Secretion SARS-CoV-2 Antigen (Rapid) - Final D/C Instructions Discharge Activity: Return to Normal Activity, May Shower and Use Walker Weight Bearing Status: Weight bearing as tolerated Call your doctor if you observe: Fever of 101 or Higher, Inability to urinate, Inability to have a bowel movement, Shortness of breath, Dizziness, Fainting spells, Swelling in the ankles, Chest pain and Uncontrolled pain DC O2, CPAP, BIPAP Needs Home O2 Discharge instructions: No Additional Instructions: Discharge home with sister 03/04/2025, [facility] [employer] PT, 20 inch wheelchair. 20 inch wheelchair: Patient has mobility limitation that cannot be sufficiently resolved by using a cane or walker. Use of a w/c will imprve the participating of ADLs on a regular basis in the home. Patient can independently self-propel. Meaningful Use Info Meaningful Use Meaningful Use Diagnoses (Choose all that apply): None applicable Discharge Plan Admission Admit Date/Time: 02/20/25 12:00 Primary Reason for Your Visit: Debility. Attending Provider: Antonio Jenkins Chi Primary Care Provider: Riddhi Simpson Instructions Additional Instructions / Restrictions: Discharge home with sister 03/04/2025, [employer] PT, 20 inch wheelchair. 20 inch wheelchair: Patient has mobility limitation that cannot be sufficiently resolved by using a cane or walker. Use of a w/c will imprve the participating of ADLs on a regular basis in the home. Patient can independently self-propel. Discharge Orders/Prescriptions Prescriptions: New hydrocodone-acetaminophen 5-325 mg Tablet 1 tab PO BID 7 Days Qty: 14 0RF Xcopri 200 mg Tablet 200 mg PO DAILY 30 Days Qty: 30 0RF Continued cranberry fruit 450 mg tablet 450 mg PO TID Rx Instructions: administer with meals Culturelle 10 billion cell capsule 1 cap PO DAILY ascorbic acid (vitamin C) 500 mg tablet 500 mg PO QDAY atorvastatin 80 mg tablet 80 mg PO QHS Qty: 90 0RF promethazine 12.5 mg tablet 12.5 mg PO TID PRN (Reason: nausea and vomiting) Qty: 90 4RF ibuprofen 600 mg tablet 600 mg PO TID PRN (Reason: headache/pain) Qty: 90 2RF Ubrelvy 100 mg tablet 100 mg PO .COMPLEX Qty: 14 2RF Rx Instructions: Take 1 tablet orally every 2 hours as needed for headache up to 2 tablets/day. cephalexin 250 mg capsule 250 mg PO QHS Qty: 90 0RF Patient Comments: 90 tizanidine 2 mg tablet 3 mg PO TID PRN (Reason: for muscle spasm) Qty: 90 0RF Rx Instructions: Take 1 to 1.5 tabs TID prn buspirone 5 mg tablet 5 mg PO TID PRN (Reason: anxiety) Qty: 90 1RF insulin glargine 100 unit/mL (3 mL) insulin pen 30 unit SUBCUT QAM Qty: 15 2RF carbamazepine [Tegretol] 200 mg tablet 200 mg PO TID Qty: 90 1RF albuterol sulfate 90 mcg/actuation HFA aerosol inhaler 2 puff INHALATION .q6prn Patient Comments: INHALE TWO PUFFS BY MOUTH DIRECTED EVERY 6 HOURS NEEDED FOR WHEEZING OR FOR SHORTNESS OF BREATH (BULK) Nuedexta 20-10 mg capsule 1 cap PO BID meclizine 25 mg tablet 25 mg PO DAILY PRN Patient Comments: TAKE ONE TABLET BY MOUTH BID nystatin [Nyamyc] 100,000 unit/gram powder 1 applic TOPICAL BID Patient Comments: apply to affected area twice a day if needed mirtazapine 15 mg tablet 30 mg PO QHS melatonin 10 mg capsule 10 mg PO QHS diphenhydramine HCl [Allergy (diphenhydramine)] 25 mg capsule 50 mg PO QHS Emgality Pen 120 mg/mL pen injector 120 mg subcut QMONTH Rx Instructions: Takes the 1st of every month hydroxyzine HCl 25 mg tablet 50 mg PO QHS PRN ferrous gluconate 324 mg (37.5 mg iron) Tablet 324 mg PO BIDLS Qty: 0 0RF levocarnitine 330 mg Tablet 330 mg PO BIDAC Qty: 0 0RF topiramate 50 mg Tablet 50 mg PO 1500,2200 Qty: 0 0RF omeprazole 40 mg capsule,delayed release(DR/EC) 40 mg PO DAILY Qty: 90 0RF gabapentin 400 mg capsule 400 mg PO TID Qty: 90 2RF gabapentin 800 mg tablet 800 mg PO QHS Qty: 30 2RF Discontinued Xcopri 200 mg tablet 200 mg PO QDAY Ozempic 0.25 mg or 0.5 mg (2 mg/3 mL) pen injector 0.25 mg SUBCUT QWEEK Qty: 3 2RF Rx Instructions: Takes every Wednesday insulin lispro 100 unit/mL solution 3 unit subcut .COMPLEX Rx Instructions: sliding scale hydrocodone-acetaminophen 5-325 mg tablet 1 tab PO BID No Action (DME) FreeStyle Es 2 Sensor Kit MISCELLANEOUS Qty: 3 0RF Rx Instructions: As directed (DME) FreeStyle Es 2 [place] Misc MISCELLANEOUS Qty: 1 0RF Rx Instructions: As directed (DME) FreeStyle Es 3 [place] Misc See Rx Instructions .Route Qty: 1 3RF Rx Instructions: As directed (DME) FreeStyle Es 3 Sensor Device See Rx Instructions .Route Qty: 3 5RF Rx Instructions: As directed (DME) Droplet Insulin Syr(half unit) 0.5 mL 31 gauge x 5/16 syringe MISCELLANEOUS Patient Comments: USE TO INJECT INSULIN UNDER THE SKIN EVERY MEAL AND AT BEDTIME PER SLIDING SCALE (DME) handicap placard See Rx Instructions .ROUTE .MEDSUPPLY Qty: 1 0RF Rx Instructions: Length of time: 5 years Diagnosis: Impaired physical mobility z74.09 Referrals / Follow Up: Riddhi Simpson MD [Primary Care Provider] - 03/08/25 1:00 pm (appt w/ TAM[facility]) Disposition Disposition (needs filled in before D/C Order can be placed): Home, Self Care
[2025-03-01 20:00] VITALS: PULSE 66; O2SAT 99
[2025-03-01] MEDS: UBROGEPANT 100 MG PO (20:07)
[2025-03-01] MEDS: MELATONIN 10 MG TABLET PO (21:24)
[2025-03-02 06:53] VITALS: PULSE 60; O2SAT 98
[2025-03-02 07:55] VITALS: PULSE 60; RESP 16
--- NOTE | 2025-03-02 08:30 | NURSING ---
pt states she walked to bed from bathroom by herself and fell to her knees, pt noted to have a right knee abrasion, aware no new orders. pt has no other complaints. pt reminded to not get up without assistance from staff, assured alarms were on.
[2025-03-02 10:12] VITALS: BP 117/60; PULSE 60; RESP 18; TEMP 36.4; O2SAT 100
[2025-03-02] MEDS: MethylPREDNISolone DosePak 4 MG BOX PO ×3 (10:17→21:47)
[2025-03-02] MEDS: Lactobacillis Acidophilus 1 CAP PO (10:19)
[2025-03-02] MEDS: Insulin Glargine-YFGN 100 UNIT/ML Pen 30 UNIT SC ×2 (10:20→10:43)
[2025-03-02] MEDS: Fluticasone Propionate 110 MCG AER.W.ADAP 3 PUFF INHALATION ×2 (10:20→21:51)
[2025-03-02] MEDS: DEXTROMETHORPHAN HBR/QUINIDINE 1 EACH CAPSULE PO ×2 (10:24→21:52)
[2025-03-02] MEDS: HYDROcodone Bitartrate/Apap 5/325 Tablet PO ×2 (10:24→21:43)
[2025-03-02] MEDS: Senna/Docusate Sodium 1 Tablet 2 TABLET PO (10:25)
[2025-03-02] MEDS: CENOBAMATE 200 MG TABLET PO (10:28)
[2025-03-02] MEDS: UBROGEPANT 100 MG PO ×3 (12:02→21:52)
--- NOTE | 2025-03-02 13:00 | CASEMGMT ---
Social Work SW completed BIMS () and PHQ-9 (10/05) for MDS assessment. 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
[2025-03-02 13:22] VITALS: PULSE 60; RESP 18
[2025-03-02 19:38] VITALS: PULSE 66; RESP 18
[2025-03-02] MEDS: 0.9% Saline Lock 10 ML Syringe IV (21:42)
[2025-03-02] MEDS: MELATONIN 10 MG TABLET PO (21:48)
[2025-03-03 06:25] VITALS: PULSE 62; RESP 18; O2SAT 95
[2025-03-03] MEDS: HYDROcodone Bitartrate/Apap 5/325 Tablet PO ×2 (08:31→22:06)
[2025-03-03] MEDS: CENOBAMATE 200 MG TABLET PO (08:33)
[2025-03-03] MEDS: MethylPREDNISolone DosePak 4 MG BOX PO ×2 (08:40→22:05)
[2025-03-03] MEDS: Lactobacillis Acidophilus 1 CAP PO (08:41)
[2025-03-03] MEDS: Fluticasone Propionate 110 MCG AER.W.ADAP 3 PUFF INHALATION ×2 (08:42→22:05)
[2025-03-03] MEDS: Senna/Docusate Sodium 1 Tablet 2 TABLET PO (08:43)
[2025-03-03] MEDS: DEXTROMETHORPHAN HBR/QUINIDINE 1 EACH CAPSULE PO ×2 (08:43→22:07)
[2025-03-03] MEDS: Insulin Glargine-YFGN 100 UNIT/ML Pen 30 UNIT SC (09:02)
[2025-03-03 09:17] VITALS: BP 116/65; PULSE 60; RESP 18; TEMP 36.6; O2SAT 96
--- NOTE | 2025-03-03 11:13 | NURSING ---
pt sister tyson rodriguez called in. sister states pt called her crying and upset about treatment from nurse. pt sister requested pt nurse be changed. this nurse let sister know we would accommodate the change.
--- NOTE | 2025-03-03 11:41 | NURSING ---
pt requested to speak to charge nurse due to nurse requirring door to be open. this nurse went in to speak to pt. pt was very argumentative about number of falls and door being open. this nurse explained that due to recent fall door needs to remain open so we can here alarms from pt room. came to agreement that door could remained open too allow staff to hear but not all the way open to block some of the noise from the central area
[2025-03-03] MEDS: 0.9% Saline Lock 10 ML Syringe IV (12:43)
[2025-03-03 13:28] VITALS: PULSE 66; RESP 20; O2SAT 100
[2025-03-03] MEDS: UBROGEPANT 100 MG PO ×2 (14:02→18:54)
--- NOTE | 2025-03-03 15:50 | NURSING ---
Patient D/C on 03/04. Patient has midline. Call placed to Dr. Jenkins. JASON to remove midline. VORB.
[2025-03-03 19:05] VITALS: PULSE 66; RESP 18
[2025-03-03] MEDS: MELATONIN 10 MG TABLET PO (22:06)
[2025-03-04 00:43] VITALS: PULSE 65; RESP 17
[2025-03-04 05:28] VITALS: PULSE 60; RESP 16; O2SAT 95
[2025-03-04 06:07] VITALS: PULSE 64; RESP 16; O2SAT 98
--- NOTE | 2025-03-04 08:55 | NURSING ---
Addendum entered by Loli Randolph 03/04/25 11:27: Patient returned to room with sister around 0910. Morning medications given. Pt and sister state they took a box to the car and went for a walk outside. States they signed out and there was no one out here to tell they were leaving. Home medications given back to patient. LABORATORY AIDE pushed patient in wheelchair with items downstairs at 0955. Original Note: Nurse went in to patients room to give her morning medications. Patient not in room, bathroom or on the unit. LABORATORY AIDE states she saw sister pushing patient in wheelchair with box on her lap to the elevator. TC to both patient cell phone and sister Debbie with no answer. Left message stating patient was not discharged until we have given her morning medications and gone over paperwork and to return call. Pt has belongings such has lamp and lozoya in room, as well as at home medications. RN on floor notified.
[2025-03-04] MEDS: CENOBAMATE 200 MG TABLET PO (09:08)
[2025-03-04] MEDS: HYDROcodone Bitartrate/Apap 5/325 Tablet PO (09:09)
[2025-03-04] MEDS: MethylPREDNISolone DosePak 4 MG BOX PO (09:13)
[2025-03-04] MEDS: DEXTROMETHORPHAN HBR/QUINIDINE 1 EACH CAPSULE PO (09:13)
[2025-03-04] MEDS: Lactobacillis Acidophilus 1 CAP PO (09:14)
[2025-03-04] MEDS: Senna/Docusate Sodium 1 Tablet 2 TABLET PO (09:15)
[2025-03-04] MEDS: Insulin Glargine-YFGN 100 UNIT/ML Pen 30 UNIT SC (09:18)
[2025-03-04] MEDS: Fluticasone Propionate 110 MCG AER.W.ADAP 3 PUFF INHALATION (09:19)
[2025-03-04 11:19] VITALS: BP 106/46; PULSE 63; RESP 18; TEMP 35.7; O2SAT 98
== END 2025-03-04 09:55 | disposition home or self-care (01) | DRG 101 ==
PROVIDERS: Admitting Provider Family Medicine Geriatric Medicine; PCP Internal Medicine; Referring Provider Family Medicine Geriatric Medicine; Visit Provider Family Medicine Geriatric Medicine
DX: G40.909 Epilepsy, unspecified, not intractable, without status epilepticus (principal); J44.0 Chronic obstructive pulmonary disease with (acute) lower respiratory infection; N39.0 Urinary tract infection, site not specified; B96.1 Klebsiella pneumoniae [K. pneumoniae] as the cause of diseases classified elsewhere; E11.42 Type 2 diabetes mellitus with diabetic polyneuropathy; D50.9 Iron deficiency anemia, unspecified; B35.4 Tinea corporis; G35 Multiple sclerosis; I10 Essential (primary) hypertension; F32.A Depression, unspecified; E11.65 Type 2 diabetes mellitus with hyperglycemia; E78.00 Pure hypercholesterolemia, unspecified; Z79.4 Long term (current) use of insulin; H81.10 Benign paroxysmal vertigo, unspecified ear; K21.9 Gastro-esophageal reflux disease without esophagitis; F41.9 Anxiety disorder, unspecified; F48.2 Pseudobulbar affect; J20.8 Acute bronchitis due to other specified organisms; G43.909 Migraine, unspecified, not intractable, without status migrainosus; Z87.891 Personal history of nicotine dependence; G47.00 Insomnia, unspecified; Z79.85 Long-term (current) use of injectable non-insulin antidiabetic drugs; Z86.73 Personal history of transient ischemic attack (TIA), and cerebral infarction without residual deficits; Z95.0 Presence of cardiac pacemaker; Z79.899 Other long term (current) drug therapy; Z23 Encounter for immunization
CPT/HCPCS: 36415; 70450; 80048; 80061; 80307; 82962; 85025; 87811; 90480; 90677; 91322; 94640; 97110; 97116; 97162; 97166; 97530; 97535; 97802; A4216

== ENCOUNTER → 2025-02-21 | Outpatient (CLI) | payer MEDICARE, MEDICAID, SELFPAY ==
--- NOTE | 2025-02-21 04:38 | CT_ITS ---
PROCEDURE: BRAIN/HEAD WITHOUT CONTRAST 02/21/2025 REASON FOR EXAM: FALL, POSSIBLE HEAD INJURY TECHNIQUE: BRAIN/HEAD WITHOUT CONTRAST Coronal and Sagittal reconstruction series were provided. One or more dose reduction techniques were used (e.g., Automated exposure control, adjustment of the mA and/or kV according to patient size, use of iterative reconstruction technique. RADIATION DOSE SUMMARY: CTDlvol: 45 mGy DLP: 847 mGycm COMPARISON: 02/16/2025 FINDINGS: Mild white matter change. 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 No acute abnormal brain densities. No intracranial hemorrhage. No hydrocephalus or midline shift. Unremarkable orbits. Clear sinuses. CT/Brain/Head without Contrast IMPRESSION: No acute intracranial findings Reading Location: [place] [id number]
== END | disposition home or self-care (01) ==
PROVIDERS: PCP Internal Medicine; Referring Provider Family Medicine Geriatric Medicine; Visit Provider Family Medicine Geriatric Medicine
DX: S06.5X0A Traumatic subdural hemorrhage without loss of consciousness, initial encounter (principal)
CPT/HCPCS: 70450

== ENCOUNTER → 2025-03-22 | Outpatient (CLI) | payer MEDICARE, MEDICAID, SELFPAY ==
[2025-03-22 12:24] LABS: Hematocrit 36.7 % (37-47); Hemoglobin 12.1 g/dL (12.0-15.0); Mean Corp Hgb Conc 33.0 g/dL (32-36); Mean Corpuscular Volume 92.0 fL (81-99); Mean Platelet Vol. 9.8 fl (6.2-12.0); Platelet Count 269 K/mm3 (150-450); RBC Distribution Width CV 14.3 % (11.6-14.6); RBC Distribution Width SD 47.3 fl (35.1-43.9); Red Blood Count 3.99 M/mm3 (4.2-5.4); White Blood Count 8.0 K/mm3 (4.4-11.0)
[2025-03-22 12:53] LABS: AST(SGOT) 22 U/L (<=31); Alanine Aminotransfer ALT/SGPT 22 U/L (<=34); Albumin, Serum 4.7 g/dL (3.5-5.0); Alkaline Phosphatase 102 U/L (35-104); Anion Gap 12 (5-15); BUN 10 mg/dL (4-19); BUN/Creat Ratio 15.0 RATIO (10-20); Calcium,Total 9.2 mg/dL (7.6-11.0); Carbon Dioxide 23.3 mmol/L (21.0-32.0); Chloride 98 mmol/L (98-108); Globulin 2.9 g/dL (2.2-4.2); Glucose 104 mg/dL (70-99); Magnesium 1.8 mg/dL (1.5-2.2); Potassium 3.9 mmol/L (3.3-5.1)
[2025-03-22 12:55] LABS: Ammonia 18.5 umol/L (11-51)
[2025-03-22 13:01] LABS: Free T3 1.6 pg/mL (2.18-3.98); T4 Total, Thyroxin 5.2 ug/dL (4.8-13.9)
== END | disposition home or self-care (01) ==
PROVIDERS: Physician Assistant Medical; PCP Internal Medicine; Referring Provider Psychiatry & Neurology Neurology; Visit Provider Psychiatry & Neurology Neurology
DX: G40.909 Epilepsy, unspecified, not intractable, without status epilepticus (principal); R00.2 Palpitations
CPT/HCPCS: 36415; 80053; 80201; 82140; 83735; 84436; 84443; 84481; 85027

== ENCOUNTER 2025-04-05 13:00 | Outpatient (RCR) | payer MEDICARE, MEDICAID, SELFPAY ==
--- NOTE | 2024-11-16 11:08 | HP.PTEVAL ---
Patient's Visit Information Visit Information Visit Information: FAM VINSON is a 59 year old F referred to Physical Therapy by Dr. Riddhi Simpson MD with a diagnosis of MS , unsteady gait. Date of Evaluation: 11/16/24 Physical Therapist: Rome Wadsworth, DPT, OCS, CSCS Visit Plan Frequency: 3x /Week Duration: 4-6 Weeks Plan: 3x/week for 4-6 but will try to get her on I initial home program prior to her vacation end of December. IE HEP: balance safety with HO reviewed and walk with wh walker all the time but 5+ min 3x/day for fitness. Start treatment with getting I on LB ROM ex, core strength on mat, then standing LE strength and wt shift FW ex, HS and gastroc stretches,static balance(ec as able and safety allows). Get to pics prior to her vacation end of month then EG to f/u after vacation to progress aggressiveness of program and function. Subjective Subjective: Debbie sister. present. Dr sent over due to a number of falls. Fell a lot more prior to getting back on meds from neuro and being back on it has helpd but still has near falls and balance issues. Gets migraines and has had one for four days, sees neuro and gets shot for these one time a month and botox injections and ubrelvy. Last fall was week ago as she was in the kitchen fixing coffee and stepped backwards losing balance and landed on tailbone. uses wh walker sometimes when she thinks she needs it. Less since started on new meds. Has been in bed for 3 days. No regular ex. Numbness in legs and arms from DM. Lives with sister, 2 story [facility] on main floor. 4 steps to enteer with hand rail. Can do them usually herself with rail. Employed Disability due to seizures and DM. Spends day keeping house together. Unpacking from a move. Did not do much at assisteted living prior to movee in with sister, did a lot of TV. Basic ADLs: dressees self, bathroom self, showers is now with a chair and in bathtub with railings. Get in out bed I. Pain LBP: Pain Intensity (Out of 10): 2 Pain Intensity Range: 0 and 6 Comment: DDD, walking is worse. Objective Objective: Walks slowly but mod I with wh walker with 8 inch steps, without AD takes 2 inch steeps and hesitant and poor weight shift. Chair [place] needs 2 attempts without UE due to lack of FW weight shift. FGA done with walker today as she is not a funcitonal ambulator without AD today. standing balance eo is fair, c is poor losing balance BW in first 5 seconds with romberg position. LE AROM is slow b ut WFL, 0 DF due to gastroc tightness, HS at -40 90/90 test. 3/5 strength hip abd and ext and 3+ flexion, knee ext /flexion 3+, ankles 4-. reflexes 0/3 B patella and achilles sensation to gross light touch is mostly absent even to hard pressure in full B LE. Balance/Special Test Scores Functional Gait Assessment Score: 10 % Disability: 66.6700 Lower Extremity Functional Score: 23 TUG Test Time Seconds: 32 Goals Goal 1:: I appropriate HEP for LB ROM, core strength, posture, LE strength, FW weight shift to do while on vacation to manage condition Goal Time Frame: 2-4 Weeks Goal 2:: 20 FGA score to minimize fall risk Goal Time Frame: 4-6 Weeks Goal 3:: Pt to jaclyn wh walker at all times without cueing for safety Goal Time Frame: 4-6 Weeks Goal 4:: TUG 20 seconds or less Goal Time Frame: 4-6 Weeks Goal 5:: Pt feel 50% better in overall balance and mobility Goal Time Frame: 4-6 Weeks Goal 6:: 40 LEFS Goal Time Frame: 4-6 Weeks Rehabilitation Potential Physical Therapy Diagnosis: poor weight shift and strength adn sedentarism and neuropathy leading to balance and gait difficulties. Rehabilitation Potential: Good Anticipated Interventions Patient/Client Instruction: Educate patient on: Condition and Plan of Care For the Purpose of:: To increase ROM, To improve nutrient delivery to tissue, To improve muscle performance and motor function, To increase tolerance to activity/condition/position, To improve ability of physical actions for home/community/work/leisure, To improve gait and locomotor functions and To improve safety Therapeutic Exercise to Include: Strength training, Balance training, Postural training, Flexibilty training, Gait and locomotor training, Passive ROM and Active ROM For the Purpose of:: To improve nutrient delivery to tissue, To improve muscle performance and motor function, To increase tolerance to activity/condition/position, To improve ability of physical actions for home/community/work/leisure, To improve gait and locomotor functions and To improve safety Text: Thank you for the opportunity to evaluate your patient. For Medicare and Medicare HMO plans, please review the plan of care and approve it. It will need to be FAXED BACK to us at [phone] for Medicare purposes. For Medicare only, by signing this I certify the plan of care. Please let me know if there are questions or concerns regarding this plan of care. Physician Signature: Date:
--- NOTE | 2024-12-14 10:58 | HP.PTREVAL ---
Re-Evaluation Intro: Dr. Riddhi Simpson MD, It has been my pleasure to treat FAM VINSON over the last 7 visits for MS , unsteady gait. Please see the progress note below for an update on the physical therapy plan of care! Subjective Subjective: Fell this am sue way into PT. Was using walker and dtr present but just went over sideways. Hit back of head and LB. will see family doctor and Neuro(Dr. Santoro) next week. saw [facility] yesterday and thinks she may have UTI and gave her antibiotic, cancelled yesterday due to very poor balance with that sickness. Was better upon waking this am but then fell. Feels like she is getting better overall. Exerfcises in bed have been helpful for core strength. Teaching to be square has helped. 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 pain in LB is improving , not as severe. Dtr says some days all day are good getting around but other days are very bad and dangerous and does not know the pattern to the worse vs better days. Objective Objective/Function: Happy and smilling today as she recounts her fall but frustrated. Walks into PT with wh walker slowly but mod I to SBA with history. Tends to get body away from feet with truning until cued to move feet first and turn in place for safety, follows directions well once taught. Drifts BW body first in BW walk and feeet cannot catch up. TUG is faster and most of time is the slow tunring that she was instructed in. Overall improved but still lots of work to do balance mills. pt to address with doctor the falls, and changes in seizure meds next week. no negative impacts from fall this morning noticed with movement today. pt interacts normally with therapist and attentively. FGA with walker today. Plan Plan Plan: 3x/week for 2 more to finish this poc, please work to standing home core and LE strength ex with pics immediately as safety allows and then weight shifting ex to HEP with pics over next two weeks. likely new POC after that for funcitonal balance activities depending on presentation. Pt to continue current HEP daily in meantime and modifications to gait for safety 100% use wh walker and staying square. Balance/Gait/Functional tests Balance/Special Test Scores Functional Gait Assessment Score: 12 % Disability: 60.0000 Lower Extremity Functional Score: 23 TUG Test Time Seconds: 27 Tug Test: 20-30sec.=variable mobility Goals Goals Goal 1:: I appropriate HEP for LB ROM, core strength, posture, LE strength, FW weight shift to do while on vacation to manage condition Goal Time Frame: 2-4 Weeks Goal Progress: Goal Met Goal 2:: 20 FGA score to minimize fall risk Goal Time Frame: 4-6 Weeks Goal 3:: Pt to jaclyn wh walker at all times without cueing for safety Goal Time Frame: 4-6 Weeks Goal Progress: Goal Met Goal 4:: TUG 20 seconds or less Goal Time Frame: 4-6 Weeks Goal 5:: Pt feel 50% better in overall balance and mobility Goal Time Frame: 4-6 Weeks Goal Progress: Progressing Goal 6:: 40 LEFS Goal Time Frame: 4-6 Weeks Anticipated Interventions Anticipated Interventions Patient/Client Instruction: Educate patient on: Condition and Plan of Care For the Purpose of:: To increase ROM, To improve nutrient delivery to tissue, To improve muscle performance and motor function, To increase tolerance to activity/condition/position, To improve ability of physical actions for home/community/work/leisure, To improve gait and locomotor functions and To improve safety Therapeutic Exercise to Include: Strength training, Balance training, Postural training, Flexibilty training, Gait and locomotor training, Passive ROM and Active ROM For the Purpose of:: To improve nutrient delivery to tissue, To improve muscle performance and motor function, To increase tolerance to activity/condition/position, To improve ability of physical actions for home/community/work/leisure, To improve gait and locomotor functions and To improve safety Re-Evaluation Ending Re-evaluation ending: Please do not hesitate to contact me at [phone] by phone or if you have questions or concerns regarding this new plan of care! Sincerely, Rome Wadsworth, DPT, OCS, CSCS
--- NOTE | 2025-01-18 17:47 | HP.PTREVAL_ITS ---
Re-Evaluation Intro: Dr. Riddhi Simpson MD, It has been my pleasure to treat FAM VINSON over the last 9 visits for MS , unsteady gait. Please see the progress note below for an update on the physical therapy plan of care! Subjective Subjective: Fell 2 times today, we discovered that hydration may be playing a part in my imbalance and falling. Objective Objective/Function: Managed limited exercise selection well without LOB. Some fatigue in LE, resting as needed. Will progress exercises as able. Re-check following. Plan Plan Plan: 3x/week for 2 more to finish this poc, please work to standing home core and LE strength ex with pics immediately as safety allows and then weight shifting ex to HEP with pics over next two weeks. likely new POC after that for funcitonal balance activities depending on presentation. Pt to continue current HEP daily in meantime and modifications to gait for safety 100% use wh walker and staying square. Balance/Gait/Functional tests Balance/Special Test Scores Functional Gait Assessment Score: 12 % Disability: 60.0000 Lower Extremity Functional Score: 28 TUG Test Time Seconds: 27 Tug Test: 20-30sec.=variable mobility Goals Goals Goal 1:: I appropriate HEP for LB ROM, core strength, posture, LE strength, FW weight shift to do while on vacation to manage condition Goal Time Frame: 2-4 Weeks Goal Progress: Goal Met Goal 2:: 20 FGA score to minimize fall risk Goal Time Frame: 4-6 Weeks Goal Progress: appropriate Goal 3:: Pt to jaclyn wh walker at all times without cueing for safety Goal Time Frame: 4-6 Weeks Goal Progress: Goal Met Goal 4:: TUG 20 seconds or less Goal Time Frame: 4-6 Weeks Goal Progress: appropriate Goal 5:: Pt feel 50% better in overall balance and mobility Goal Time Frame: 4-6 Weeks Goal Progress: Progressing Goal 6:: 40 LEFS Goal Time Frame: 4-6 Weeks Goal Progress: Progressing Anticipated Interventions Anticipated Interventions Patient/Client Instruction: Educate patient on: Condition and Plan of Care For the Purpose of:: To increase ROM, To improve nutrient delivery to tissue, To improve muscle performance and motor function, To increase tolerance to activity/condition/position, To improve ability of physical actions for home/community/work/leisure, To improve gait and locomotor functions and To improve safety Therapeutic Exercise to Include: Strength training, Balance training, Postural training, Flexibilty training, Gait and locomotor training, Passive ROM and Active ROM For the Purpose of:: To improve nutrient delivery to tissue, To improve muscle performance and motor function, To increase tolerance to activity/condition/position, To improve ability of physical actions for home/community/work/leisure, To improve gait and locomotor functions and To improve safety Re-Evaluation Ending Re-evaluation ending: Please do not hesitate to contact me at [phone] by phone or Fax: if you have questions or concerns regarding this new plan of care! Sincerely, Rome Wadsworth, DPT, OCS, CSCS
--- NOTE | 2025-03-08 15:48 | HP.PTREVAL ---
Re-Evaluation Intro: Dr. Riddhi Simpson MD, It has been my pleasure to treat FAM VINSON over the last 12 visits for MS , unsteady gait. Please see the progress note below for an update on the physical therapy plan of care! Subjective Subjective: New script received for seizure, pacemaker implant, debility from Dr. Jenkins. Had pacemaker placed early January and had seizures over the next month being in the hospital for some of that time and getting weak again.Got out of TCU the other day. Also got a pain patch for DDD and had a bad reaction and more painful and could not walk, That led to TCU and intense therapy. That helped adn is getting stronger. Pacemaker had really heelped funciton prior to that. Seizure was 5 days after pain patch with vomit and grand mal and fever after stopping taking seizure mds by pain doctor. Doing exercises at home but not back to standing yet. Feels balance and strength need to be beetter. 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 Objective Objective/Function: DF and ankle strength 4-/5, Senssation LE to gross light touch in feet at deficit and expeectedly due to neuropathy. Tending posterior with challenges like turning adn closing eyes. immediate LOB posterior in static stance with ec. Overall looks better since having pacemaker put in, less tired but setbacks with pain patch and seizures have made her weak and off track and appropriate for PT to get back mobioity. Needs wh walker to ambulate safely. Mod a with out AD. Needs UE or extra itme to exit chair. Plan Plan Plan: 3x/week x 4-6 new POC Fair prognosis. work on getting back to standing home HEP with pics for strength LE and weight shift FW, balance ec activities and turning and beending with less support. Wants to ambulate with [facility]QC and will bring hers for safety check adn training. Balance/Gait/Functional tests Balance/Special Test Scores Functional Gait Assessment Score: 15 % Disability: 50.0000 Lower Extremity Functional Score: 28 TUG Test Time Seconds: 20 Tug Test: 20-30sec.=variable mobility 30 Second Chair Rise Test Seconds: 12 Goals Goals Goal 1:: stadn ec 30 seconds without lOB BW. Goal Time Frame: 2-4 Weeks Goal Progress: Goal Met Goal 2:: 20 FGA score to minimize fall risk Goal Time Frame: 4-6 Weeks Goal Progress: appropriate again Goal 3:: turn with cane/walker without posterior tendency Goal Time Frame: 4-6 Weeks Goal Progress: Goal Met Goal 4:: TUG 16 seconds or less Goal Time Frame: 4-6 Weeks Goal Progress: appropriate Goal 5:: Pt feel 50% better in overall balance and mobility Goal Time Frame: 4-6 Weeks Goal Progress: appropriate again. Goal 6:: 30 SSTS 15 without posterior tendency Goal Time Frame: 4-6 Weeks Goal Progress: Progressing Anticipated Interventions Anticipated Interventions Patient/Client Instruction: Educate patient on: Condition and Plan of Care For the Purpose of:: To increase ROM, To improve nutrient delivery to tissue, To improve muscle performance and motor function, To increase tolerance to activity/condition/position, To improve ability of physical actions for home/community/work/leisure, To improve gait and locomotor functions and To improve safety Therapeutic Exercise to Include: Strength training, Balance training, Postural training, Flexibilty training, Gait and locomotor training, Passive ROM and Active ROM For the Purpose of:: To improve nutrient delivery to tissue, To improve muscle performance and motor function, To increase tolerance to activity/condition/position, To improve ability of physical actions for home/community/work/leisure, To improve gait and locomotor functions and To improve safety Re-Evaluation Ending Re-evaluation ending: Please do not hesitate to contact me at [phone] by phone or if you have questions or concerns regarding this new plan of care! Sincerely, Rome Wadsworth, DPT, OCS, CSCS
--- NOTE | 2025-03-22 09:43 | HP.OTEVAL_ITS ---
Patient's Visit Information Visit Information Visit Information: FAM VINSON is a 59 year old F, referred to Occupational Therapy by Dr. Riddhi Simpson MD, with a diagnosis of seizure / weakness. Date of Evaluation: 03/22/25 Occupational Therapist: Jenny Edouard, JOEYR/Hema, CHT Subjective Subjective: this 59 year old female was seen for OT eval with dx of seizures and decrease ADLs. pt has complex medical history : states a stroke about 3 years or more with a left side weakness. pt states her vision was blurry with her stroke but this did improve - and had to change her glasses. pt was in hospital on and off for last 2 months: with cardiac issues. pts sister states she ended up with a pace maker placement about 7 weeks ago ( week of January 29) Sister states after the pace maker she ended up sick and suffered absent seizure s - and went back to the hospital. ( found out her pain mtg put her on a pain mtg. patch and this had a bad reaction to 8 other medications she was on) pt was on TCU for almost 2 weeks. pt d/c from hospital Feb. 2024 pt is left handed sister feels pts UB is weaker limiting her ability to perform daily tasks. ADLs Comments: pt lives with sister in a handicap apt. pt has WW pt has wheel chair grab bars in bathroom pt states her sister has to help her dress herself ( good days she can dress at LOS level) on bad days her sister has to help her. pt states depth perception. pt state she can help with laundry and cleaning on days she is able to help. Strength Shoulder: right 12# left 9# Elbow: right biceps 12# triceps 9# left biceps 10# triceps 11# Dehairing Machine Tender: right 20# left 15# Lateral Pinch: right 4# left 4# Tripod Pinch: right 4# left 4# Sensation Sensation Comments: tingling in bilateral hands ( diabetic neuropathy about 8 month) Visual/Perceptual Skills Comments: depth perception with placing item on table Balance Dynamic Sitting: fair+ Nine Hole Peg Right: 1:01 Left: 1:06 Quick DASH-Disab of Arm,Shoulder& Hand Quick DASH Score: 72.7250 Goals Goal:: pt will demo a increase in bilateral UE strength fit2 testing by 10# or greater by d/c to increase pts IND with ADLS. 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 with ADLs by dc pt will demo a increase in bilateral pinch strength by 4# to increase pts IND with ADLs by d.c Goal:: pt will demo a decrease in 9-hole peg testing score to 30 sec. or less demo improved FMS by dc Goal:: pt will demo the ability to place small and med. size objects in container to simulate medication mtg. by d/c pt will demo the ability with left UE to hit targeted spot to decrease dropping objects by dc Goal:: pt will demo use of safety precautions with ww for simulated kitchen/ laundry or light meal or cleaning tasks by d/c Rehabilitation General Assessment: pt demo with generalized weakness of bilateral UE limited with her ADLs and IADLs. pt would benefit from skilled OT services 2x week for 8 weeks. today therapist ed. pt on POC pt and pts sister demo understanding and agree to POC. Rehabilitation Potential: Good Anticipated Interventions Anticipated Interventions: Strengthening, Ergonomic Education, Fine Motor Coord/Gurpreet, Neuro Reeducation, Visual/Perceptual Skills, Education re assistive Equipment, Education re Diagnosis, Caregiver Training and Home Program Visit Plan Frequency: 2-3x /Week Duration: 2 Months General Plan: ed. on energy conservation UB strength and durance dynamic standing with safety and use of WW TEXT: Thank you for the opportunity to evaluate your patient. For Medicare and Medicare HMO plans, please review the plan of care and approve it. It will need to be FAXED BACK to us at [phone] for Medicare purposes. Please let me know if there are questions or concerns regarding this plan of care. Physician Signature: Date:
== END 2025-04-05 19:00 | disposition home or self-care (01) ==
LOC: OT 13:00
PROVIDERS: PCP Internal Medicine; Referring Provider Internal Medicine; Visit Provider Internal Medicine
DX: R26.81 Unsteadiness on feet (principal); G35 Multiple sclerosis
CPT/HCPCS: 97110; 97116; 97163; 97164; 97167; 97530

== ENCOUNTER 2025-04-06 17:13 | Observation (INO) | payer MEDICARE, MEDICAID, SELFPAY ==
--- OUTSIDE RECORDS SUMMARY | 2025-03-22 13:49 | XMS RPT_ITS ---
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 03/22/2025 Active New Patient / UNK(Unknown) KLEBER DRIVER Active [facility] PROCEDURES No Procedure Records Found RESULTS CNPN Observed: 03/23/2025 12:00 AM Status: COMPLETED Source: [facility] Telephone (PAINTW) FAM SOTO ([id number]) 1965 F Date Time Provider Department 03/23/25 KLEBER DRIVER PAINTW During your visit today, we recorded the following information about you: Susan Montiel RN 03/23/2025 8:29 AM Signed Surgical order completed. Susan Montiel RN March 23, 2025 8:29 AM Allergies As of Date: 03/23/2025 Noted Allergy Reaction BUPROPION 03/22/2025 14 - Other: See Comments Comments: Lost ability to walk AND had seizures LATEX 08/20/2019 4 - Hives LEVAQUIN (LEVOFLOXACIN) 04/08/2018 4 - Hives METFORMIN 04/11/2020 6 - Diarrhea Comments: Taken roughly 8 years ago. Caused severe diarrhea NUBAIN (NALBUPHINE HCL) 03/28/2018 14 - Other: See Comments Comments: Increase heart rate TRAZODONE 01/18/2020 4 - Hives ZOFRAN (ONDANSETRON) 03/27/2018 4 - Hives Date Reviewed: 03/22/2025 Reviewed by: Kristy Zhang RN - Fully Assessed Primary Visit Diagnosis:Sacroiliitis [M46.1] Order(s):SURGICAL REQUEST - ELECTIVE (02/2020) [[id number]] Order #: [id number]: 1 Prescriptions as of 03/23/2025 - busPIRone (BUSPAR) 5 mg tablet Take 5 mg by mouth three times a day. - cenobamate (XCOPRI) 200 mg tablet Take 200 mg by mouth once daily. - ascorbic acid, vitamin C, (VITAMIN C) 500 mg tablet Take 500 mg by mouth once daily. - meloxicam (MOBIC) 7.5 mg tablet Take 1 tablet by mouth once daily. - LORazepam (ATIVAN) 0.5 mg Take 0.5 mg by mouth as needed. - galcanezumab-gnlm (EMGALITY PEN) 120 mg/mL pen Inject 120 mg subcutaneously once every month. Do not shake. - tiZANidine (ZANAFLEX) 4 mg tablet Take 4 mg by mouth every 8 hours as needed. - ubrogepant (UBRELVY) 100 mg tablet Take 1 tablet by mouth as needed. - Insulin [place], Disposable, (ULTICARE PEN NEEDLE) 32 gauge x 5/32 USE TO INJECT SUBCUTANEOUSLY FOUR TIMES DAILY DIRECTED (BULK) - nystatin (MYCOSTATIN) powder Apply 1 application to affected area two times a day as needed. - semaglutide (OZEMPIC) 0.25 mg or 0.5 mg (2 mg/3 mL) pen INJECT 0.25 MG SUBCUTANEOUSLY ONCE A WEEK - blood sugar diagnostic (Channel MTOUCH ULTRA TEST) test strip use 1 TEST STRIP to TEST BLOOD SUGAR SIX TIMES DAILY - insulin glargine (LANTUS SOLOSTAR U-100 INSULIN) 100 unit/mL (3 mL) 22 units in the morning and 15 units at bedtime - carBAMazepine XR (TEGRETOL XR) 200 mg 12 hr tablet TAKE ONE TABLET BY MOUTH TWICE DAILY @ 9AM AND 5PM - albuterol HFA (PROAIR HFA) 90 mcg/actuation inhaler Inhale 2 Puffs as instructed every 4 hours as needed for wheezing/shortness of breath. - topiramate (TOPAMAX) 200 mg tablet Take 1 tablet by mouth two times a day. - flash glucose scanning reader (FREESTYLE GILBERTO 2 READER) Patient checks sugars 6 times daily DX E11.65 - glucagon (GVOKE HYPOPEN 1-PACK) 1 mg/0.2 mL auto-injector INJECT ONE MG INTRAMUSCULARLY IF BLOOD SUGAR ARE BELOW 60 AND ATTEMPT AT ORAL GLUCOSE INTAKE IS NOT EFFECTIVE (BULK) - meclizine (ANTIVERT) 25 mg tab Take 1 tablet by mouth once daily as needed. - insulin lispro 100 unit/mL injection INJECT PER SLIDING SCALE THREE TIMES DAILY FOLLOWS: ONE UNIT IF LESS THAN 111, TWO UNITS 111-150, FOUR UNITS 151-200, SEVEN UNITS 201-250, 10 UNITS 251-300, 13 UNITS 301-350, 16 UNITS 351-400, CALL AND AT NOON OVER 400 (MAX 48 UNITS PER DAY) (BULK) - omeprazole (PRILOSEC) 40 mg capsule TAKE ONE CAPSULE BY MOUTH DAILY AT 9AM (VIAL) - DULoxetine (CYMBALTA) 60 mg capsule TAKE ONE CAPSULE BY MOUTH TWICE DAILY @ 9AM AND 5PM (VIAL) - atorvastatin (LIPITOR) 80 mg tablet Take 1 tablet by mouth once daily. - fluticasone (FLOVENT HFA) 220 mcg/actuation inhaler INHALE 1 PUFF BY MOUTH INTO LUNGS EVERY TWELVE HOURS (RINSE MOUTH AFTER EACH USE) (BULK) - gabapentin (NEURONTIN) 800 mg tablet TAKE ONE TABLET BY MOUTH DAILY AT 9PM AT BEDTIME (VIAL) - flash glucose sensor (FREESTYLE GILBERTO 2 SENSOR) kit Patient checks sugars 6 times daily DX E11.65 - promethazine (PHENERGAN) 25 mg tablet TAKE ONE-HALF TO 1 TABLET BY MOUTH EVERY 6 HOURS NEEDED (VIAL) - dextromethorphan 20 mg - quiNIDine 10 mg (NUEDEXTA) 20-10 mg capsule Take 1 capsule by mouth every 12 hours. - ipratropium-albuterol (DUONEB) 0.5 mg-3 mg(2.5 mg base)/3 mL nebu Inhale 3 mL as instructed every 6 hours as needed (Wheezing / SOB). - hydrOXYzine pamoate (VISTARIL) 25 mg capsule Take 50 mg by mouth daily at bedtime. - iv contrast (will be provided with radiology test) MRI Brain Inject, intravenously, once for 1 dose.No IV access, insert saline lock prior to beginning of sedation, infusion, injection of imaging exam.Discontinue saline lock post exam. If Pt. has a central line or IVAD, may access for administration according to line specific nursing protocol.Once exam is complete flush line and de-access according to line specific nursing protocol in the MR contrast administration guidelines link - iv contrast (will be provided with radiology test) MRI CSP Inject, intravenously, once for 1 dose. No IV access, insert saline lock prior to the beginning of sedation, infusion, injection of imaging exam. Discontinue saline lock post exam. If Pt. has a central line or IVAD, may access for administration according to line specific nursing protocol. Once exam is complete flush line and de-access according to line specific nursing protocol in the MR contrast administration guidelines link. - ergocalciferol 50,000 unit capsule (VITAMIN D2, DRISDOL) TAKE 1 CAPSULE BY MOUTH EVERY WEDNESDAY AT 9AM (VIAL) - Insulin Syringe-Needle U-100 (ADVOCATE SYRINGES) 0.5 mL 31 gauge x 5/16 q meal and @ hs per sliding scale - fluticasone (FLONASE ALLERGY RELIEF) 50 mcg/actuation nasal spray Use 1 Hardin in each nostril once daily. - insulin syr/ndl U100 half shirley (DROPLET INSULIN SYR,HALF UNIT,) 0.5 mL 31 gauge x 5/16 syrg USE TO INJECT INSULIN UNDER THE SKIN EVERY MEAL AND AT BEDTIME PER SLIDING SCALE - Lancets (ONETOUCH ULTRASOFT LANCETS) lancets Check sugars 4 times daily DX E11.3291 DISPENSE WHAT INSURANCE COVERS - DOK 100 mg capsule take 1 capsule by mouth twice a day if needed - melatonin 3 mg tablet Take 12 mg by mouth daily at bedtime. 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*03/28/2018 DDD (degenerative disc disease), lumbar [M51.36*03/28/2018 Benzodiazepine dependence (HCC) [F13.20] 03/28/2018 08/30/2018 Chronic pain syndrome [G89.4] 03/28/2018 Altered mental status [R41.82] 04/03/2018 04/06/2018 Obtunded [R40.1] 04/03/2018 04/04/2018 Hypoglycemia [E16.2] 04/03/2018 11/23/2018 Acute kidney injury (HCC) [N17.9] 04/03/2018 08/30/2018 Hypoxia [R09.02] 04/03/2018 04/04/2018 Pruritic rash [L28.2] 04/04/2018 Generalized weakness [R53.1] 04/08/2018 Migraine [G43.909] 04/08/2018 08/02/2018 Hypertriglyceridemia [E78.1] 04/08/2018 Cough [R05.9] 04/08/2018 04/22/2018 Type 2 diabetes mellitus with peripheral neurop*04/08/2018 Neuropathy involving both lower extremities [G5*04/08/2018 Abscess of left thigh [L02.416] 05/30/2018 08/18/2018 MRSA (methicillin resistant staph aureus) cultu*05/30/2018 08/18/2018 Neuropathy (HCC) [G62.9] 06/06/2018 08/18/2018 Psychiatric disorder [F99] 09/05/2018 Pre-syncope [R55] 07/02/2018 Difficulty swallowing [R13.10] 07/06/2018 07/13/2018 Acute otitis externa [H60.509] 07/09/2018 07/12/2018 Left-sided weakness [R53.1] 07/13/2018 07/13/2018 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] 07/13/2018 Anemia [D64.9] 08/02/2018 08/30/2018 Bilateral low back pain with sciatica [M54.40] 08/02/2018 Migraine without aura and without status migrai*08/02/2018 Pulmonary nodules [R91.8] 08/02/2018 Impaired gait [R26.9] 08/02/2018 Left sided numbness [R20.0] 08/09/2018 Polypharmacy [Z79.899] 08/10/2018 Abnormal urinalysis [R82.90] 08/11/2018 08/30/2018 Tenderness over maxillary sinus [J34.89] 08/13/2018 08/18/2018 Altered mental status [R41.82] 08/29/2018 08/30/2018 Risk for falls [Z91.81] 08/29/2018 08/30/2018 Nicotine use disorder, F17.2 [F17.200] 08/30/2018 08/30/2018 AMS (altered mental status) [R41.82] 08/30/2018 Nicotine use disorder, F17.2 [F17.200] 08/30/2018 Hyperammonemia (HCC) [E72.20] 08/31/2018 Muscular deconditioning [R29.898] 08/31/2018 Dysphagia [R13.10] 08/31/2018 Type 2 diabetes mellitus without complication, *09/21/2018 Cortical age-related cataract, both eyes [H25.0*01/09/2019 Peripheral edema [R60.0] 03/21/2019 Nicotine use [Z72.0] 05/15/2019 DDD (degenerative disc disease), cervical [M50.*09/19/2019 MELITA (generalized anxiety disorder) [F41.1] 06/22/2022 Delirium, drug-induced [R41.0, T50.905A] 06/22/2022 Emphysema of lung (HCC) [J43.9] 06/22/2022 Recurrent falls [R29.6] 07/27/2022 Slurred speech [R47.81] 08/24/2022 Eustachian tube disorder, left [H69.92] 08/24/2022 Seasonal allergic rhinitis [J30.2] 08/24/2022 Former smoker [Z87.891] 11/27/2022 UTI (urinary tract infection) [N39.0] 01/18/2023 04/19/2023 Orthostatic hypotension [I95.1] 01/23/2023 Constipation [K59.00] 01/23/2023 Urinary retention [R33.9] 01/23/2023 Complicated grief [F43.21] 01/29/2023 Vertigo [R42] 01/29/2023 History of TIA (transient ischemic attack) [Z86*04/19/2023 Lumbar spondylosis [M47.816] 03/22/2025 Sacroiliitis [M46.1] 03/22/2025 Encounter Status:Closed by SUSAN MONTIEL on 03/23/25 HECTOR Observed: 03/23/2025 12:00 AM Status: COMPLETED Source: [facility] Telephone (AIQ) FAM SOTO ([id number]) 1965 F Date Time Provider Department 03/23/25 KLEBER DRIVER During your visit today, we recorded the following information about you: BeltranAylin 03/23/2025 3:27 PM Signed Patient called because Mobic is making her so dizzy she can't get out of bed. She wants to know if she can stop that and go back to taking Ibuprofen. Please call her at [phone]. Charity Sunshine 03/26/2025 12:02 PM Signed Patient calling again regarding below. Please call her at # below. Kristy Zhang, ENRIQUE 03/26/2025 2:47 PM Signed Called and informed patient to stop taking the Mobic d/t it is causing the patient to become dizzy. Patient states she has already stopped mobic and has resumed ibuprofen. Please advise. Kristy Zhang RN March 26, 2025 2:45 PM Kristy Zhang, ENRIQUE 03/26/2025 3:04 PM Signed Called and informed patient of providers response to resuming Ibuprofen in place of mobic: This is fine for now until we complete the procedure. Thank you Patient stated verbal understanding. Advised any additional questions/concerns, please let us know. Kristy Zhang RN March 26, 2025 3:03 PM Allergies As of Date: 03/23/2025 Noted Allergy Reaction BUPROPION 03/22/2025 14 - Other: See Comments Comments: Lost ability to walk AND had seizures LATEX 08/20/2019 4 - Hives LEVAQUIN (LEVOFLOXACIN) 04/08/2018 4 - Hives METFORMIN 04/11/2020 6 - Diarrhea Comments: Taken roughly 8 years ago. Caused severe diarrhea NUBAIN (NALBUPHINE HCL) 03/28/2018 14 - Other: See Comments Comments: Increase heart rate TRAZODONE 01/18/2020 4 - Hives ZOFRAN (ONDANSETRON) 03/27/2018 4 - Hives Date Reviewed: 03/22/2025 Reviewed by: Kristy Zhang RN - Fully Assessed Reason for Visit: Symptoms [3640] Prescriptions as of 03/26/2025 - busPIRone (BUSPAR) 5 mg tablet Take 5 mg by mouth three times a day. - cenobamate (XCOPRI) 200 mg tablet Take 200 mg by mouth once daily. - ascorbic acid, vitamin C, (VITAMIN C) 500 mg tablet Take 500 mg by mouth once daily. - meloxicam (MOBIC) 7.5 mg tablet Take 1 tablet by mouth once daily. - LORazepam (ATIVAN) 0.5 mg Take 0.5 mg by mouth as needed. - galcanezumab-gnlm (EMGALITY PEN) 120 mg/mL pen Inject 120 mg subcutaneously once every month. Do not shake. - tiZANidine (ZANAFLEX) 4 mg tablet Take 4 mg by mouth every 8 hours as needed. - ubrogepant (UBRELVY) 100 mg tablet Take 1 tablet by mouth as needed. - Insulin [place], Disposable, (ULTICARE PEN NEEDLE) 32 gauge x 5/32 USE TO INJECT SUBCUTANEOUSLY FOUR TIMES DAILY DIRECTED (BULK) - nystatin (MYCOSTATIN) powder Apply 1 application to affected area two times a day as needed. - semaglutide (OZEMPIC) 0.25 mg or 0.5 mg (2 mg/3 mL) pen INJECT 0.25 MG SUBCUTANEOUSLY ONCE A WEEK - blood sugar diagnostic (Channel MTOUCH ULTRA TEST) test strip use 1 TEST STRIP to TEST BLOOD SUGAR SIX TIMES DAILY - insulin glargine (LANTUS SOLOSTAR U-100 INSULIN) 100 unit/mL (3 mL) 22 units in the morning and 15 units at bedtime - carBAMazepine XR (TEGRETOL XR) 200 mg 12 hr tablet TAKE ONE TABLET BY MOUTH TWICE DAILY @ 9AM AND 5PM - albuterol HFA (PROAIR HFA) 90 mcg/actuation inhaler Inhale 2 Puffs as instructed every 4 hours as needed for wheezing/shortness of breath. - topiramate (TOPAMAX) 200 mg tablet Take 1 tablet by mouth two times a day. - flash glucose scanning reader (iDreamsky TechnologySTYLE GILBERTO 2 READER) Patient checks sugars 6 times daily DX E11.65 - glucagon (GVOKE HYPOPEN 1-PACK) 1 mg/0.2 mL auto-injector INJECT ONE MG INTRAMUSCULARLY IF BLOOD SUGAR ARE BELOW 60 AND ATTEMPT AT ORAL GLUCOSE INTAKE IS NOT EFFECTIVE (BULK) - meclizine (ANTIVERT) 25 mg tab Take 1 tablet by mouth once daily as needed. - insulin lispro 100 unit/mL injection INJECT PER SLIDING SCALE THREE TIMES DAILY FOLLOWS: ONE UNIT IF LESS THAN 111, TWO UNITS 111-150, FOUR UNITS 151-200, SEVEN UNITS 201-250, 10 UNITS 251-300, 13 UNITS 301-350, 16 UNITS 351-400, CALL AND AT NOON OVER 400 (MAX 48 UNITS PER DAY) (BULK) - omeprazole (PRILOSEC) 40 mg capsule TAKE ONE CAPSULE BY MOUTH DAILY AT 9AM (VIAL) - DULoxetine (CYMBALTA) 60 mg capsule TAKE ONE CAPSULE BY MOUTH TWICE DAILY @ 9AM AND 5PM (VIAL) - atorvastatin (LIPITOR) 80 mg tablet Take 1 tablet by mouth once daily. - fluticasone (FLOVENT HFA) 220 mcg/actuation inhaler INHALE 1 PUFF BY MOUTH INTO LUNGS EVERY TWELVE HOURS (RINSE MOUTH AFTER EACH USE) (BULK) - gabapentin (NEURONTIN) 800 mg tablet TAKE ONE TABLET BY MOUTH DAILY AT 9PM AT BEDTIME (VIAL) - flash glucose sensor (FREESTYLE GILBERTO 2 SENSOR) kit Patient checks sugars 6 times daily DX E11.65 - promethazine (PHENERGAN) 25 mg tablet TAKE ONE-HALF TO 1 TABLET BY MOUTH EVERY 6 HOURS NEEDED (VIAL) - dextromethorphan 20 mg - quiNIDine 10 mg (NUEDEXTA) 20-10 mg capsule Take 1 capsule by mouth every 12 hours. - ipratropium-albuterol (DUONEB) 0.5 mg-3 mg(2.5 mg base)/3 mL nebu Inhale 3 mL as instructed every 6 hours as needed (Wheezing / SOB). - hydrOXYzine pamoate (VISTARIL) 25 mg capsule Take 50 mg by mouth daily at bedtime. - iv contrast (will be provided with radiology test) MRI Brain Inject, intravenously, once for 1 dose.No IV access, insert saline lock prior to beginning of sedation, infusion, injection of imaging exam.Discontinue saline lock post exam. If Pt. has a central line or IVAD, may access for administration according to line specific nursing protocol.Once exam is complete flush line and de-access according to line specific nursing protocol in the MR contrast administration guidelines link - iv contrast (will be provided with radiology test) MRI CSP Inject, intravenously, once for 1 dose. No IV access, insert saline lock prior to the beginning of sedation, infusion, injection of imaging exam. Discontinue saline lock post exam. If Pt. has a central line or IVAD, may access for administration according to line specific nursing protocol. Once exam is complete flush line and de-access according to line specific nursing protocol in the MR contrast administration guidelines link. - ergocalciferol 50,000 unit capsule (VITAMIN D2, DRISDOL) TAKE 1 CAPSULE BY MOUTH EVERY WEDNESDAY AT 9AM (VIAL) - Insulin Syringe-Needle U-100 (ADVOCATE SYRINGES) 0.5 mL 31 gauge x 5/16 q meal and @ hs per sliding scale - fluticasone (FLONASE ALLERGY RELIEF) 50 mcg/actuation nasal spray Use 1 Hardin in each nostril once daily. - insulin syr/ndl U100 half shirley (DROPLET INSULIN SYR,HALF UNIT,) 0.5 mL 31 gauge x 5/16 syrg USE TO INJECT INSULIN UNDER THE SKIN EVERY MEAL AND AT BEDTIME PER SLIDING SCALE - Lancets (ONETOUCH ULTRASOFT LANCETS) lancets Check sugars 4 times daily DX E11.3291 DISPENSE WHAT INSURANCE COVERS - DOK 100 mg capsule take 1 capsule by mouth twice a day if needed - melatonin 3 mg tablet Take 12 mg by mouth daily at bedtime. 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*03/28/2018 DDD (degenerative disc disease), lumbar [M51.36*03/28/2018 Benzodiazepine dependence (HCC) [F13.20] 03/28/2018 08/30/2018 Chronic pain syndrome [G89.4] 03/28/2018 Altered mental status [R41.82] 04/03/2018 04/06/2018 Obtunded [R40.1] 04/03/2018 04/04/2018 Hypoglycemia [E16.2] 04/03/2018 11/23/2018 Acute kidney injury (HCC) [N17.9] 04/03/2018 08/30/2018 Hypoxia [R09.02] 04/03/2018 04/04/2018 Pruritic rash [L28.2] 04/04/2018 Generalized weakness [R53.1] 04/08/2018 Migraine [G43.909] 04/08/2018 08/02/2018 Hypertriglyceridemia [E78.1] 04/08/2018 Cough [R05.9] 04/08/2018 04/22/2018 Type 2 diabetes mellitus with peripheral neurop*04/08/2018 Neuropathy involving both lower extremities [G5*04/08/2018 Abscess of left thigh [L02.416] 05/30/2018 08/18/2018 MRSA (methicillin resistant staph aureus) cultu*05/30/2018 08/18/2018 Neuropathy (HCC) [G62.9] 06/06/2018 08/18/2018 Psychiatric disorder [F99] 09/05/2018 Pre-syncope [R55] 07/02/2018 Difficulty swallowing [R13.10] 07/06/2018 07/13/2018 Acute otitis externa [H60.509] 07/09/2018 07/12/2018 Left-sided weakness [R53.1] 07/13/2018 07/13/2018 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] 07/13/2018 Anemia [D64.9] 08/02/2018 08/30/2018 Bilateral low back pain with sciatica [M54.40] 08/02/2018 Migraine without aura and without status migrai*08/02/2018 Pulmonary nodules [R91.8] 08/02/2018 Impaired gait [R26.9] 08/02/2018 Left sided numbness [R20.0] 08/09/2018 Polypharmacy [Z79.899] 08/10/2018 Abnormal urinalysis [R82.90] 08/11/2018 08/30/2018 Tenderness over maxillary sinus [J34.89] 08/13/2018 08/18/2018 Altered mental status [R41.82] 08/29/2018 08/30/2018 Risk for falls [Z91.81] 08/29/2018 08/30/2018 Nicotine use disorder, F17.2 [F17.200] 08/30/2018 08/30/2018 AMS (altered mental status) [R41.82] 08/30/2018 Nicotine use disorder, F17.2 [F17.200] 08/30/2018 Hyperammonemia (HCC) [E72.20] 08/31/2018 Muscular deconditioning [R29.898] 08/31/2018 Dysphagia [R13.10] 08/31/2018 Type 2 diabetes mellitus without complication, *09/21/2018 Cortical age-related cataract, both eyes [H25.0*01/09/2019 Peripheral edema [R60.0] 03/21/2019 Nicotine use [Z72.0] 05/15/2019 DDD (degenerative disc disease), cervical [M50.*09/19/2019 MELITA (generalized anxiety disorder) [F41.1] 06/22/2022 Delirium, drug-induced [R41.0, T50.905A] 06/22/2022 Emphysema of lung (HCC) [J43.9] 06/22/2022 Recurrent falls [R29.6] 07/27/2022 Slurred speech [R47.81] 08/24/2022 Eustachian tube disorder, left [H69.92] 08/24/2022 Seasonal allergic rhinitis [J30.2] 08/24/2022 Former smoker [Z87.891] 11/27/2022 UTI (urinary tract infection) [N39.0] 01/18/2023 04/19/2023 Orthostatic hypotension [I95.1] 01/23/2023 Constipation [K59.00] 01/23/2023 Urinary retention [R33.9] 01/23/2023 Complicated grief [F43.21] 01/29/2023 Vertigo [R42] 01/29/2023 History of TIA (transient ischemic attack) [Z86*04/19/2023 Lumbar spondylosis [M47.816] 03/22/2025 Sacroiliitis [M46.1] 03/22/2025 Encounter Status:Closed by KRISTY ZHANG on 03/26/25 PROGRESS Observed: 03/22/2025 3:16 PM Status: COMPLETED Source: [facility] HNO ID: [id number] Author: KLEBER DRIVER MD Service: ? Author Type: Physician Type: Progress Notes Filed: 03/22/2025 15:20 Note Text: [facility] Pain Management Department New Patient Visit Fam Soto is seen in consultation requested by Dr. Wendy Sosa for an opinion regarding chronic lower back pain. My final recommendations will be communicated back to the requesting physician by way of shared medical record or via US mail. SUBJECTIVE History of Present Illness Past medical history is significant for: PAST MEDICAL HISTORY Diagnosis Date Anemia 08/02/2018 Anxiety Brainstem lesion Depression Diabetes (HCC) Epilepsy (HCC) Hypertriglyceridemia, essential Migraine Neurogenic syncope Nicotine use disorder, F17.2 08/30/2018 Obesity Psychiatric disorder Risk for falls 08/29/2018 UTI (urinary tract infection) 11/20/2018 SUBJECTIVE: Occupation: Disabled Fam Soto is a 59-year-old female with a history of HTN, HLD, insulin-dependent DM, and migraines, presenting with chronic back pain radiating to the left leg. She is accompanied by her sister, who is her POA and provides additional history. Fam reports chronic back pain that radiates to the left thigh, but does not extend past the knee. The pain has been ongoing for years and involves the entire back. She attributes the limited radiation of pain to her diabetic neuropathy. She has been managing her diabetes with insulin and reports a recent HbA1c of 6.9, down from 8.0 on 10/15/2023. She has been tight roping her sugar and dietary intake to achieve this improvement. For pain management, she was previously prescribed diclofenac [address] Eng, which she reports was effective. However, upon admission to a jail, the medication was discontinued in favor of unspecified pain pills, which she did not tolerate well. Fam is currently not taking diclofenac. She is on tizanidine 4 mg TID, ibuprofen, and gabapentin. She has also undergone multiple injections for pain management, which provided relief for about 2 months each. However, she reports a negative experience with her last injection, stating that her feet shot up during the procedure, leading her to discontinue further injections. Fam is currently in physical therapy and is able to ambulate with a walker, although she uses a wheelchair when fatigued. She denies any lower back surgeries but reports multiple falls due to weakness, which have decreased in frequency since receiving a pacemaker. She denies being on anticoagulant therapy. Past Treatments: Physical Therapy: Patient previously completed physical therapy and did not find it to be helpful. Home Exercise Regimen: The patient previously completed physical therapy and is participating in a home exercise regimen on a regular basis. The patient has seen other pain providers. OSH Past pain treatment has included epidurals, Exercise, and PT Past pain medications have included NSAIDs (advil, ibuprofen, celebrex, meloxicam, etc) She had relief from the following interventions: epidurals and PT She had relief from the following medications:NSAIDs (advil, ibuprofen, celebrex, meloxicam, etc) Physical Examination Physical Exam Vitals: BP 111/73 Pulse 60 Ht 5' 5.984 (1.68m) Wt 215 lb (97.5kg) BMI 34.72 kg/(m2). General: Well appearing, alert, in no acute distress, well-hydrated, well nourished. and Wheelchair Mental Status: Alert and Oriented x3. Affect: even Skin: Skin color, texture, turgor normal, no suspicious rashes or lesions HEENT: Pupils equal, round, reactive to light. Not pinpoint. Pulmonary: Breathing easily without tachypnea or bradypnea. Cardiac: No LE edema. Abdomen: not distended Ambulation: Gait is antalgic. Patient ambulates, w/ 1 person assistance. Neuro/Musculoskeletal: flexion (normal 45): full without pain extension (normal 25): restricted and reproduces pain Facet Palpation: Right non-tender; Left non-tender CHIKA/Melvin's Test (Flexion Abduction External Rotation): Right Negative; Left Positive Gaenselen's Test: Right Negative; Left Positive [place]'s Test: Right Negative; Left Positive The patient denies difficulty with bowel or bladder control, unintentional weight loss, fevers, chills, or night sweats, ever having cancer, pain being worse at night, or recent trauma (major or minor). Assessment Assessment AND Plan 03/22/2025 The primary encounter diagnosis was Chronic pain syndrome. Diagnoses of Type 2 diabetes mellitus with peripheral neuropathy (HCC), Degeneration of intervertebral disc of lumbar region, unspecified whether pain present, MELITA (generalized anxiety disorder), Obesity, Class I, BMI 30-34.9, Lumbar spondylosis, and Sacroiliitis were also pertinent to this visit. Fam Soot is a 59 year old female with a pertinent medical history of HTN, HLD, insulin-dependent DM, and migraines. The patient presents to [facility] for the evaluation of chronic left low back pain. Based on clinical evaluation and physical examination, this patient's presentation was consistent with lumbar spondylosis and left sacroiliitis. The patient has failed a prolonged course of conservative management with multiple medications and physical therapy for at least 6 weeks, 6 months. Based on this, we will proceed with a left sacroiliac joint injection and start the patient on meloxicam 7.5 mg daily. We will also obtain x-rays of the lumbar spine and pelvis. Current Pain Medications and Dosages: - Opioids: None - NSAIDs: Meloxicam 7.5mg Daily - Anti-Depressants: None - Anti-Convulsants: Gabapentin 800mg QHS, Topiramate 200mg BID - Others: Tizanidine 4mg TID Recent Pain Interventions: LESIs - moderate relief for 2 months at OSH Labs: (10/15/2023) A1c: 8.0 (01/25/2023) Labs: - Within normal limits (including CBC) A1c: 6.9 Imaging: (10/06/2023) X-ray Lumbar Spine: Very mild degenerative disc disease without significant lumbar spine stenosis Plan Imaging AND Lab Orders: XR Lumbar Spine, XR Pelvis No Lab Orders Medications: Pain medications were reviewed. Patient was counseled on expected effect, dosage, titration, adverse reactions, side effects, and all questions were answered where appropriate. PDMP was reviewed. Procedural AND Surgical Interventions: Left SIJ Injection #1 (Diagnostic) An SIJ injection is considered medically reasonable and necessary because the following conditions are met: - moderate to severe LBP primarily experienced over the anatomical location of the SIJs between the upper level of the iliac crests and gluteal folds AND - LBP duration of 3 months AND - LBP below L5 without radiculopathy AND - Clinical findings and/or imaging do not suggest any other diagnosed or obvious cause of the lumbosacral pain (such as central spinal stenosis, infection, fracture) AND - The following SIJ three (3) provocative tests were positive: CHIKA/Melvin's, Gaenslen's Test, and [place]'s Test AND - LBP persists despite a minimum of 4 weeks of conservative therapies. This is a diagnostic SIJ injection to determine if the pain is from the SIJ complex. This is considered reasonable and medically necessary because the following criteria is met: - The above criteria for covered indications was met AND - The SIJ injection is performed with fluoroscopic guidance and WITH CONTRAST AND - The SIJ injection is not performed with other MSK injections in the lumbosacral spine AND - The documentation will show direct causal benefit from the injection and not from other MSK treatments or injections AND - The diagnostic SIJ injection provided a minimum 75% relief of the primary index pain measured by the SAME SCALE AT BASELINE. Musculoskeletal Rehabilitation: Patient was instructed to perform a physical therapy routine on a daily basis. Consults: None Follow up: Return to clinic in 2 weeks AFTER the diagnostic procedure date I counseled the patient on the importance of health promotion and lifestyle modifications including activity modification, consistent sleep habits, and stress management. We also discussed risks/benefits/alternatives to medication management, pain management interventions, physical or occupational therapy, psychological pain management and surgical options as appropriate. The above plan and management options were discussed with patient. The patient is in agreement with the above and verbalized understanding. Shared decision making utilized to continue current treatment plan and patient's questions were answered Jose Hoffman MDELO [facility] This note was generated using artificial intelligence supervisor real estate office software and may contain errors that went unnoticed during review. However, I meticulously reviewed the note, made corrections, and verified its accuracy before concluding the encounter. Relevant History from the Electronic Medical Record Questionnaires: Descriptive Summary for PROMIS Physical Function T-score = 31 (Percentile 3) Unable - Do 2 hours of physical labor Unable - Walk at a normal speed. Pain Disability Index No data to display Patient Entered Questionnaires PROMIS Score Percentiles 10/03/2023 03/22/2025 Physical Health Physical Function Percentile 5 3 Pain Interference Percentile 4 4 10/22/2022 10/03/2023 03/22/2025 PROMIS Global Health Scale Physical Health Percentile 7 4 1 Mental Health Percentile 9 3 3 03/22/2025 10/03/2023 PROMIS CAT Physical Function T-Score 31 (moderate dysfunction) 34 (moderate dysfunction) Percentile 3 5 Percentiles provide an indication of how the patient's score ranks in relation to the general population. Higher percentile rankings indicate better function/quality of life. 50th percentile is the average of the general population and indicates half of respondents had a worse score. > 31st percentile is within normal limits or better * < 31st percentile is at least ? SD worse than population, which may be clinically relevant < 16th percentile is at least 1 SD worse than population and warrants attention Depression Screenin09/19/2021 11/19/2022 10/03/2023 PHQ-9 Score 0 14 18 Data saved with a previous flowsheet row definition 10/03/2023 11/19/2022 04/25/2018 PHQ-9 Self Harm Question 9 Not at all Not at all Not at all Data saved with a previous flowsheet row definition PHQ-9 Self-Harm (Item 9) response options: 0 Not at all 1 Several days 2 More than half the days 3 Nearly every day PHQ-9 Levels: 0-4 Minimal depression 5-9 Mild depression 10-14 Moderate depression 15-19 Moderately severe depression 20-27 Severe depression PHQ-9 Score 10/03/2023 18 11/19/2022 14 09/19/2021 0 06/13/2020 19 04/25/2018 19 Data saved with a previous flowsheet row definition (0-4) minimal depression, (5-9) mild depression, (10-14) moderate depression, (15-19) moderately severe depression, (20-27) severe depression No data to display No data to display ALLERGIES Allergen Reactions Bupropion Other: See Comments Lost ability to walk AND had seizures Latex Hives Levaquin [Levofloxa* Hives Metformin Diarrhea Taken roughly 8 years ago. Caused severe diarrhea Nubain [Nalbuphine * Other: See Comments Increase heart rate Trazodone Hives Zofran [Ondansetron] Hives Current Medications: busPIRone (BUSPAR) 5 mg tablet Take 5 mg by mouth three times a day. cenobamate (XCOPRI) 200 mg tablet Take 200 mg by mouth once daily. ascorbic acid, vitamin C, (VITAMIN C) 500 mg tablet Take 500 mg by mouth once daily. LORazepam (ATIVAN) 0.5 mg Take 0.5 mg by mouth as needed. galcanezumab-gnlm (EMGALITY PEN) 120 mg/mL pen Inject 120 mg subcutaneously once every month. Do not shake. tiZANidine (ZANAFLEX) 4 mg tablet Take 4 mg by mouth every 8 hours as needed. ubrogepant (UBRELVY) 100 mg tablet Take 1 tablet by mouth as needed. nystatin (MYCOSTATIN) powder Apply 1 application to affected area two times a day as needed. semaglutide (OZEMPIC) 0.25 mg or 0.5 mg (2 mg/3 mL) pen INJECT 0.25 MG SUBCUTANEOUSLY ONCE A WEEK blood sugar diagnostic (HitlabUCH ULTRA TEST) test strip use 1 TEST STRIP to TEST BLOOD SUGAR SIX TIMES DAILY insulin glargine (LANTUS SOLOSTAR U-100 INSULIN) 100 unit/mL (3 mL) 22 units in the morning and 15 units at bedtime carBAMazepine XR (TEGRETOL XR) 200 mg 12 hr tablet TAKE ONE TABLET BY MOUTH TWICE DAILY @ 9AM AND 5PM albuterol HFA (PROAIR HFA) 90 mcg/actuation inhaler Inhale 2 Puffs as instructed every 4 hours as needed for wheezing/shortness of breath. topiramate (TOPAMAX) 200 mg tablet Take 1 tablet by mouth two times a day. glucagon (GVOKE HYPOPEN 1-PACK) 1 mg/0.2 mL auto-injector INJECT ONE MG INTRAMUSCULARLY IF BLOOD SUGAR ARE BELOW 60 AND ATTEMPT AT ORAL GLUCOSE INTAKE IS NOT EFFECTIVE (BULK) meclizine (ANTIVERT) 25 mg tab Take 1 tablet by mouth once daily as needed. insulin lispro 100 unit/mL injection INJECT PER SLIDING SCALE THREE TIMES DAILY FOLLOWS: ONE UNIT IF LESS THAN 111, TWO UNITS 111-150, FOUR UNITS 151-200, SEVEN UNITS 201-250, 10 UNITS 251-300, 13 UNITS 301-350, 16 UNITS 351-400, CALL AND AT NOON OVER 400 (MAX 48 UNITS PER DAY) (BULK) omeprazole (PRILOSEC) 40 mg capsule TAKE ONE CAPSULE BY MOUTH DAILY AT 9AM (VIAL) DULoxetine (CYMBALTA) 60 mg capsule TAKE ONE CAPSULE BY MOUTH TWICE DAILY @ 9AM AND 5PM (VIAL) atorvastatin (LIPITOR) 80 mg tablet Take 1 tablet by mouth once daily. fluticasone (FLOVENT HFA) 220 mcg/actuation inhaler INHALE 1 PUFF BY MOUTH INTO LUNGS EVERY TWELVE HOURS (RINSE MOUTH AFTER EACH USE) (BULK) gabapentin (NEURONTIN) 800 mg tablet TAKE ONE TABLET BY MOUTH DAILY AT 9PM AT BEDTIME (VIAL) promethazine (PHENERGAN) 25 mg tablet TAKE ONE-HALF TO 1 TABLET BY MOUTH EVERY 6 HOURS NEEDED (VIAL) dextromethorphan 20 mg - quiNIDine 10 mg (NUEDEXTA) 20-10 mg capsule Take 1 capsule by mouth every 12 hours. ipratropium-albuterol (DUONEB) 0.5 mg-3 mg(2.5 mg base)/3 mL nebu Inhale 3 mL as instructed every 6 hours as needed (Wheezing / SOB). hydrOXYzine pamoate (VISTARIL) 25 mg capsule Take 50 mg by mouth daily at bedtime. ergocalciferol 50,000 unit capsule (VITAMIN D2, DRISDOL) TAKE 1 CAPSULE BY MOUTH EVERY WEDNESDAY AT 9AM (VIAL) fluticasone (FLONASE ALLERGY RELIEF) 50 mcg/actuation nasal spray Use 1 [place] in each nostril once daily. DOK 100 mg capsule take 1 capsule by mouth twice a day if needed melatonin 3 mg tablet Take 12 mg by mouth daily at bedtime. COMPOUNDED PRESCRIPTION walker meloxicam (MOBIC) 7.5 mg tablet Take 1 tablet by mouth once daily. Insulin [place], Disposable, (ULTICARE PEN NEEDLE) 32 gauge x 5/32 USE TO INJECT SUBCUTANEOUSLY FOUR TIMES DAILY DIRECTED (BULK) flash glucose scanning reader (iDreamsky TechnologySTYLE GILBERTO 2 READER) Patient checks sugars 6 times daily DX E11.65 flash glucose sensor (FREESTYLE GILBERTO 2 SENSOR) kit Patient checks sugars 6 times daily DX E11.65 iv contrast (will be provided with radiology test) MRI Brain Inject, intravenously, once for 1 dose.No IV access, insert saline lock prior to beginning of sedation, infusion, injection of imaging exam.Discontinue saline lock post exam. If Pt. has a central line or IVAD, may access for administration according to line specific nursing protocol.Once exam is complete flush line and de-access according to line specific nursing protocol in the MR contrast administration guidelines link iv contrast (will be provided with radiology test) MRI CSP Inject, intravenously, once for 1 dose. No IV access, insert saline lock prior to the beginning of sedation, infusion, injection of imaging exam. Discontinue saline lock post exam. If Pt. has a central line or IVAD, may access for administration according to line specific nursing protocol. Once exam is complete flush line and de-access according to line specific nursing protocol in the MR contrast administration guidelines link. Insulin Syringe-Needle U-100 (ADVOCATE SYRINGES) 0.5 mL 31 gauge x 5/16 q meal and @ hs per sliding scale insulin syr/ndl U100 half shirley (DROPLET INSULIN SYR,HALF UNIT,) 0.5 mL 31 gauge x 5/16 syrg USE TO INJECT INSULIN UNDER THE SKIN EVERY MEAL AND AT BEDTIME PER SLIDING SCALE Lancets (ONETOUCH ULTRASOFT LANCETS) lancets Check sugars 4 times daily DX E11.3291 DISPENSE WHAT INSURANCE COVERS PAST MEDICAL HISTORY Diagnosis Date Anemia 08/02/2018 Anxiety Brainstem lesion Depression Diabetes (HCC) Epilepsy (HCC) Hypertriglyceridemia, essential Migraine Neurogenic syncope Nicotine use disorder, F17.2 08/30/2018 Obesity Psychiatric disorder Risk for falls 08/29/2018 UTI (urinary tract infection) 11/20/2018 PAST SURGICAL HISTORY Procedure Laterality Date CHOLECYSTECTOMY HX TONSILLECTOMY HX TUBAL LIGATION HX FAMILY HISTORY Problem Relation Age of Onset Cancer Mother Hyperlipidemia Father Cancer Father adrenal Cataract Father Diabetes Sister Depression Sister Migraines Sister Multiple Sclerosis Paternal cousin Social History: Alcohol Use: No Tobacco Use: Types: Cigarettes Drug Use: No Employer And Job Title: No employer specified (on disability) Years Of Education Completed: 17 years Marital Status: with 2 children PROGRESS Observed: 03/22/2025 2:14 PM Status: COMPLETED Source: [facility] HNO ID: [id number] Author: KRISTY ZHANG, RN Service: ? Author Type: Registered Nurse Type: Progress Notes Filed: 03/22/2025 15:20 Note Text: Date of Last Office Visit or Procedure with Dr. Driver: New Patient Recent ED Visits, New Medications, Recent Surgeries, or Major Health Change: Pacemaker placement 7 weeks. Chief Complaint: Back pain radiates down LLE Location of Pain: Back pain. The pain radiates on the left. Intensity of pain: Currently, the pain is rated at 8/10 and it ranges from 8-10/10 on the patient's best and worst days. Duration of pain: Pain started 6-7 years ago. The pain has been worsening. Additional Patient Comments: None CNOV Observed: 03/22/2025 1:30 PM Status: COMPLETED Source: [facility] Office Visit (PAINTW) FAM SOTO ([id number]) 1965 F Date Time Provider Department 03/22/25 1:30 PM KLEBER DRIVER PAINTW During your visit today, we recorded the following information about you: Pulse Blood pressure Weight Height 60/minute 111/73 97.5 kg 1.676 m Kristy Zhang RN 03/22/2025 3:20 PM Signed Date of Last Office Visit or Procedure with Dr. Driver: New Patient Recent ED Visits, New Medications, Recent Surgeries, or Major Health Change: Pacemaker placement 7 weeks. Chief Complaint: Back pain radiates down LLE Location of Pain: Back pain. The pain radiates on the left. Intensity of pain: Currently, the pain is rated at 8/10 and it ranges from 8-10/10 on the patient's best and worst days. Duration of pain: Pain started 6-7 years ago. The pain has been worsening. Additional Patient Comments: None Kleber Driver MD 03/22/2025 3:12 PM Signed It was a pleasure to see you today. We discussed your back pain and left leg pain: - Based on your symptoms and physical exam, I believe your pain is primarily coming from arthritis in the sacroiliac (SI) joint on the left side. This is a common cause of pain in women and can be missed during evaluations. - You are already doing physical therapy, which is excellent. Please continue with this daily for 10-15 minutes to strengthen your muscles and improve blood flow. 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 - I recommend trying an injection into the SI joint to confirm this is the source of your pain. The first injection will include numbing medication to test for pain relief. If you experience at least 80% relief, we will proceed with a second injection that includes a steroid for longer-lasting relief. My nurse will contact you to schedule this procedure. We discussed your medications: - Continue taking Tizanidine (muscle relaxant) 4 mg three times daily as prescribed. - I am prescribing Meloxicam (Mobic) 15 mg to replace ibuprofen. Take one pill every morning with food for three days in a row, then take a one-day break, and repeat this cycle. Do not take ibuprofen, Aleve, or Advil while on Meloxicam, as these medications can interact. - Gabapentin can be continued as prescribed. We discussed your diabetes: - Your hemoglobin A1c is currently 6.7-6.9, which is a great improvement. Continue managing your blood sugar carefully with your current diet and insulin regimen. We discussed additional testing: - I will order x-rays of your lower back and pelvis to ensure there are no other underlying issues contributing to your pain. Next steps: - My nurse will contact you to schedule the SI joint injection at a time that works for you. - Continue physical therapy daily and take your medications as prescribed. - If you have any new or worsening symptoms, please contact our office. Thank you for trusting me with your care. Our goal at the [facility] is to be the best place for care anywhere. I, along with my staff, are always available to you. It is our privilege to be able to provide you with the highest standard of world-class care. Thank you for trusting us with your health and wellbeing. CHARIS Hoffman MD, Trishul, MD 03/22/2025 3:20 PM Signed [facility] Pain Management Department New Patient Visit Fam Soto is seen in consultation requested by Dr. Wendy Sosa for an opinion regarding chronic lower back pain. My final recommendations will be communicated back to the requesting physician by way of shared medical record or via US mail. SUBJECTIVE History of Present Illness Past medical history is significant for: PAST MEDICAL HISTORY Diagnosis Date Anemia 08/02/2018 Anxiety Brainstem lesion Depression Diabetes (HCC) Epilepsy (HCC) Hypertriglyceridemia, essential Migraine Neurogenic syncope Nicotine use disorder, F17.2 08/30/2018 Obesity Psychiatric disorder Risk for falls 08/29/2018 UTI (urinary tract infection) 11/20/2018 SUBJECTIVE: Occupation: Disabled Fam Soto is a 59-year-old female with a history of HTN, HLD, insulin-dependent DM, and migraines, presenting with chronic back pain radiating to the left leg. She is accompanied by her sister, who is her POA and provides additional history. Fam reports chronic back pain that radiates to the left thigh, but does not extend past the knee. The pain has been ongoing for years and involves the entire back. She attributes the limited radiation of pain to her diabetic neuropathy. She has been managing her diabetes with insulin and reports a recent HbA1c of 6.9, down from 8.0 on 10/15/2023. She has been tight roping her sugar and dietary intake to achieve this improvement. For pain management, she was previously prescribed diclofenac [address] Eng, which she reports was effective. However, upon admission to a jail, the medication was discontinued in favor of unspecified pain pills, which she did not tolerate well. Fam is currently not taking diclofenac. She is on tizanidine 4 mg TID, ibuprofen, and gabapentin. She has also undergone multiple injections for pain management, which provided relief for about 2 months each. However, she reports a negative experience with her last injection, stating that her feet shot up during the procedure, leading her to discontinue further injections. Fam is currently in physical therapy and is able to ambulate with a walker, although she uses a wheelchair when fatigued. She denies any lower back surgeries but reports multiple falls due to weakness, which have decreased in frequency since receiving a pacemaker. She denies being on anticoagulant therapy. Past Treatments: Physical Therapy: Patient previously completed physical therapy and did not find it to be helpful. Home Exercise Regimen: The patient previously completed physical therapy and is participating in a home exercise regimen on a regular basis. The patient has seen other pain providers. OSH Past pain treatment has included epidurals, Exercise, and PT Past pain medications have included NSAIDs (advil, ibuprofen, celebrex, meloxicam, etc) She had relief from the following interventions: epidurals and PT She had relief from the following medications:NSAIDs (advil, ibuprofen, celebrex, meloxicam, etc) Physical Examination Physical Exam Vitals: BP 111/73 Pulse 60 Ht 5' 5.984 (1.68m) Wt 215 lb (97.5kg) BMI 34.72 kg/(m2). General: Well appearing, alert, in no acute distress, well-hydrated, well nourished. and Wheelchair Mental Status: Alert and Oriented x3. Affect: even Skin: Skin color, texture, turgor normal, no suspicious rashes or lesions HEENT: Pupils equal, round, reactive to light. Not pinpoint. Pulmonary: Breathing easily without tachypnea or bradypnea. Cardiac: No LE edema. Abdomen: not distended Ambulation: Gait is antalgic. Patient ambulates, w/ 1 person assistance. Neuro/Musculoskeletal: flexion (normal 45): full without pain extension (normal 25): restricted and reproduces pain Facet Palpation: Right non-tender; Left non-tender CHIKA/Melvin's Test (Flexion Abduction External Rotation): Right Negative; Left Positive Gaenselen's Test: Right Negative; Left Positive [place]'s Test: Right Negative; Left Positive The patient denies difficulty with bowel or bladder control, unintentional weight loss, fevers, chills, or night sweats, ever having cancer, pain being worse at night, or recent trauma (major or minor). Assessment Assessment AND Plan 03/22/2025 The primary encounter diagnosis was Chronic pain syndrome. Diagnoses of Type 2 diabetes mellitus with peripheral neuropathy (HCC), Degeneration of intervertebral disc of lumbar region, unspecified whether pain present, MELITA (generalized anxiety disorder), Obesity, Class I, BMI 30-34.9, Lumbar spondylosis, and Sacroiliitis were also pertinent to this visit. Fam Soto is a 59 year old female with a pertinent medical history of HTN, HLD, insulin-dependent DM, and migraines. The patient presents to [facility] for the evaluation of chronic left low back pain. Based on clinical evaluation and physical examination, this patient's presentation was consistent with lumbar spondylosis and left sacroiliitis. The patient has failed a prolonged course of conservative management with multiple medications and physical therapy for at least 6 weeks, 6 months. Based on this, we will proceed with a left sacroiliac joint injection and start the patient on meloxicam 7.5 mg daily. We will also obtain x-rays of the lumbar spine and pelvis. Current Pain Medications and Dosages: - Opioids: None - NSAIDs: Meloxicam 7.5mg Daily - Anti-Depressants: None - Anti-Convulsants: Gabapentin 800mg QHS, Topiramate 200mg BID - Others: Tizanidine 4mg TID Recent Pain Interventions: LESIs - moderate relief for 2 months at OSH Labs: (10/15/2023) A1c: 8.0 (01/25/2023) Labs: - Within normal limits (including CBC) A1c: 6.9 Imaging: (10/06/2023) X-ray Lumbar Spine: Very mild degenerative disc disease without significant lumbar spine stenosis Plan Imaging AND Lab Orders: XR Lumbar Spine, XR Pelvis No Lab Orders Medications: Pain medications were reviewed. Patient was counseled on expected effect, dosage, titration, adverse reactions, side effects, and all questions were answered where appropriate. PDMP was reviewed. Procedural AND Surgical Interventions: Left SIJ Injection #1 (Diagnostic) An SIJ injection is considered medically reasonable and necessary because the following conditions are met: - moderate to severe LBP primarily experienced over the anatomical location of the SIJs between the upper level of the iliac crests and gluteal folds AND - LBP duration of 3 months AND - LBP below L5 without radiculopathy AND - Clinical findings and/or imaging do not suggest any other diagnosed or obvious cause of the lumbosacral pain (such as central spinal stenosis, infection, fracture) AND - The following SIJ three (3) provocative tests were positive: CHIKA/Melvin's, Gaenslen's Test, and [place]'s Test AND - LBP persists despite a minimum of 4 weeks of conservative therapies. This is a diagnostic SIJ injection to determine if the pain is from the SIJ complex. This is considered reasonable and medically necessary because the following criteria is met: - The above criteria for covered indications was met AND - The SIJ injection is performed with fluoroscopic guidance and WITH CONTRAST AND - The SIJ injection is not performed with other MSK injections in the lumbosacral spine AND - The documentation will show direct causal benefit from the injection and not from other MSK treatments or injections AND - The diagnostic SIJ injection provided a minimum 75% relief of the primary index pain measured by the SAME SCALE AT BASELINE. Musculoskeletal Rehabilitation: Patient was instructed to perform a physical therapy routine on a daily basis. Consults: None Follow up: Return to clinic in 2 weeks AFTER the diagnostic procedure date I counseled the patient on the importance of health promotion and lifestyle modifications including activity modification, consistent sleep habits, and stress management. We also discussed risks/benefits/alternatives to medication management, pain management interventions, physical or occupational therapy, psychological pain management and surgical options as appropriate. The above plan and management options were discussed with patient. The patient is in agreement with the above and verbalized understanding. Shared decision making utilized to continue current treatment plan and patient's questions were answered Jose Hoffman MDELO [facility] This note was generated using artificial intelligence supervisor real estate office software and may contain errors that went unnoticed during review. However, I meticulously reviewed the note, made corrections, and verified its accuracy before concluding the encounter. Relevant History from the Electronic Medical Record Questionnaires: Descriptive Summary for PROMIS Physical Function T-score = 31 (Percentile 3) Unable - Do 2 hours of physical labor Unable - Walk at a normal speed. Pain Disability Index No data to display Patient Entered Questionnaires PROMIS Score Percentiles 10/03/2023 03/22/2025 Physical Health Physical Function Percentile 5 3 Pain Interference Percentile 4 4 10/22/2022 10/03/2023 03/22/2025 PROMIS Global Health Scale Physical Health Percentile 7 4 1 Mental Health Percentile 9 3 3 03/22/2025 10/03/2023 PROMIS CAT Physical Function T-Score 31 (moderate dysfunction) 34 (moderate dysfunction) Percentile 3 5 Percentiles provide an indication of how the patient's score ranks in relation to the general population. Higher percentile rankings indicate better function/quality of life. 50th percentile is the average of the general population and indicates half of respondents had a worse score. > 31st percentile is within normal limits or better * < 31st percentile is at least ? SD worse than population, which may be clinically relevant < 16th percentile is at least 1 SD worse than population and warrants attention Depression Screenin09/19/2021 11/19/2022 10/03/2023 PHQ-9 Score 0 14 18 Data saved with a previous flowsheet row definition 10/03/2023 11/19/2022 04/25/2018 PHQ-9 Self Harm Question 9 Not at all Not at all Not at all Data saved with a previous flowsheet row definition PHQ-9 Self-Harm (Item 9) response options: 0 Not at all 1 Several days 2 More than half the days 3 Nearly every day PHQ-9 Levels: 0-4 Minimal depression 5-9 Mild depression 10-14 Moderate depression 15-19 Moderately severe depression 20-27 Severe depression PHQ-9 Score 10/03/2023 18 11/19/2022 14 09/19/2021 0 06/13/2020 19 04/25/2018 19 Data saved with a previous flowsheet row definition (0-4) minimal depression, (5-9) mild depression, (10-14) moderate depression, (15-19) moderately severe depression, (20-27) severe depression No data to display No data to display ALLERGIES Allergen Reactions Bupropion Other: See Comments Lost ability to walk AND had seizures Latex Hives Levaquin [Levofloxa* Hives Metformin Diarrhea Taken roughly 8 years ago. Caused severe diarrhea Nubain [Nalbuphine * Other: See Comments Increase heart rate Trazodone Hives Zofran [Ondansetron] Hives Current Medications: busPIRone (BUSPAR) 5 mg tablet Take 5 mg by mouth three times a day. cenobamate (XCOPRI) 200 mg tablet Take 200 mg by mouth once daily. ascorbic acid, vitamin C, (VITAMIN C) 500 mg tablet Take 500 mg by mouth once daily. LORazepam (ATIVAN) 0.5 mg Take 0.5 mg by mouth as needed. galcanezumab-gnlm (EMGALITY PEN) 120 mg/mL pen Inject 120 mg subcutaneously once every month. Do not shake. tiZANidine (ZANAFLEX) 4 mg tablet Take 4 mg by mouth every 8 hours as needed. ubrogepant (UBRELVY) 100 mg tablet Take 1 tablet by mouth as needed. nystatin (MYCOSTATIN) powder Apply 1 application to affected area two times a day as needed. semaglutide (OZEMPIC) 0.25 mg or 0.5 mg (2 mg/3 mL) pen INJECT 0.25 MG SUBCUTANEOUSLY ONCE A WEEK blood sugar diagnostic ([employer] ULTRA TEST) test strip use 1 TEST STRIP to TEST BLOOD SUGAR SIX TIMES DAILY insulin glargine (LANTUS SOLOSTAR U-100 INSULIN) 100 unit/mL (3 mL) 22 units in the morning and 15 units at bedtime carBAMazepine XR (TEGRETOL XR) 200 mg 12 hr tablet TAKE ONE TABLET BY MOUTH TWICE DAILY @ 9AM AND 5PM albuterol HFA (PROAIR HFA) 90 mcg/actuation inhaler Inhale 2 Puffs as instructed every 4 hours as needed for wheezing/shortness of breath. topiramate (TOPAMAX) 200 mg tablet Take 1 tablet by mouth two times a day. glucagon (GVOKE HYPOPEN 1-PACK) 1 mg/0.2 mL auto-injector INJECT ONE MG INTRAMUSCULARLY IF BLOOD SUGAR ARE BELOW 60 AND ATTEMPT AT ORAL GLUCOSE INTAKE IS NOT EFFECTIVE (BULK) meclizine (ANTIVERT) 25 mg tab Take 1 tablet by mouth once daily as needed. insulin lispro 100 unit/mL injection INJECT PER SLIDING SCALE THREE TIMES DAILY FOLLOWS: ONE UNIT IF LESS THAN 111, TWO UNITS 111-150, FOUR UNITS 151-200, SEVEN UNITS 201-250, 10 UNITS 251-300, 13 UNITS 301-350, 16 UNITS 351-400, CALL AND AT NOON OVER 400 (MAX 48 UNITS PER DAY) (BULK) omeprazole (PRILOSEC) 40 mg capsule TAKE ONE CAPSULE BY MOUTH DAILY AT 9AM (VIAL) DULoxetine (CYMBALTA) 60 mg capsule TAKE ONE CAPSULE BY MOUTH TWICE DAILY @ 9AM AND 5PM (VIAL) atorvastatin (LIPITOR) 80 mg tablet Take 1 tablet by mouth once daily. fluticasone (FLOVENT HFA) 220 mcg/actuation inhaler INHALE 1 PUFF BY MOUTH INTO LUNGS EVERY TWELVE HOURS (RINSE MOUTH AFTER EACH USE) (BULK) gabapentin (NEURONTIN) 800 mg tablet TAKE ONE TABLET BY MOUTH DAILY AT 9PM AT BEDTIME (VIAL) promethazine (PHENERGAN) 25 mg tablet TAKE ONE-HALF TO 1 TABLET BY MOUTH EVERY 6 HOURS NEEDED (VIAL) dextromethorphan 20 mg - quiNIDine 10 mg (NUEDEXTA) 20-10 mg capsule Take 1 capsule by mouth every 12 hours. ipratropium-albuterol (DUONEB) 0.5 mg-3 mg(2.5 mg base)/3 mL nebu Inhale 3 mL as instructed every 6 hours as needed (Wheezing / SOB). hydrOXYzine pamoate (VISTARIL) 25 mg capsule Take 50 mg by mouth daily at bedtime. ergocalciferol 50,000 unit capsule (VITAMIN D2, DRISDOL) TAKE 1 CAPSULE BY MOUTH EVERY WEDNESDAY AT 9AM (VIAL) fluticasone (FLONASE ALLERGY RELIEF) 50 mcg/actuation nasal spray Use 1 Hardin in each nostril once daily. DOK 100 mg capsule take 1 capsule by mouth twice a day if needed melatonin 3 mg tablet Take 12 mg by mouth daily at bedtime. COMPOUNDED PRESCRIPTION walker meloxicam (MOBIC) 7.5 mg tablet Take 1 tablet by mouth once daily. Insulin [place], Disposable, (ULTICARE PEN NEEDLE) 32 gauge x 5/32 USE TO INJECT SUBCUTANEOUSLY FOUR TIMES DAILY DIRECTED (BULK) flash glucose scanning reader (PROnoise GILBERTO 2 READER) Patient checks sugars 6 times daily DX E11.65 flash glucose sensor (FREESTYLE GILBERTO 2 SENSOR) kit Patient checks sugars 6 times daily DX E11.65 iv contrast (will be provided with radiology test) MRI Brain Inject, intravenously, once for 1 dose.No IV access, insert saline lock prior to beginning of sedation, infusion, injection of imaging exam.Discontinue saline lock post exam. If Pt. has a central line or IVAD, may access for administration according to line specific nursing protocol.Once exam is complete flush line and de-access according to line specific nursing protocol in the MR contrast administration guidelines link iv contrast (will be provided with radiology test) MRI CSP Inject, intravenously, once for 1 dose. No IV access, insert saline lock prior to the beginning of sedation, infusion, injection of imaging exam. Discontinue saline lock post exam. If Pt. has a central line or IVAD, may access for administration according to line specific nursing protocol. Once exam is complete flush line and de-access according to line specific nursing protocol in the MR contrast administration guidelines link. Insulin Syringe-Needle U-100 (ADVOCATE SYRINGES) 0.5 mL 31 gauge x 5/16 q meal and @ hs per sliding scale insulin syr/ndl U100 half shirley (DROPLET INSULIN SYR,HALF UNIT,) 0.5 mL 31 gauge x 5/16 syrg USE TO INJECT INSULIN UNDER THE SKIN EVERY MEAL AND AT BEDTIME PER SLIDING SCALE Lancets (ONETOUCH ULTRASOFT LANCETS) lancets Check sugars 4 times daily DX E11.3291 DISPENSE WHAT INSURANCE COVERS PAST MEDICAL HISTORY Diagnosis Date Anemia 08/02/2018 Anxiety Brainstem lesion Depression Diabetes (HCC) Epilepsy (HCC) Hypertriglyceridemia, essential Migraine Neurogenic syncope Nicotine use disorder, F17.2 08/30/2018 Obesity Psychiatric disorder Risk for falls 08/29/2018 UTI (urinary tract infection) 11/20/2018 PAST SURGICAL HISTORY Procedure Laterality Date CHOLECYSTECTOMY HX TONSILLECTOMY HX TUBAL LIGATION HX FAMILY HISTORY Problem Relation Age of Onset Cancer Mother Hyperlipidemia Father Cancer Father adrenal Cataract Father Diabetes Sister Depression Sister Migraines Sister Multiple Sclerosis Paternal cousin Social History: Alcohol Use: No Tobacco Use: Types: Cigarettes Drug Use: No Employer And Job Title: No employer specified (on disability) Years Of Education Completed: 17 years Marital Status: with 2 children Allergies As of Date: 03/22/2025 Noted Allergy Reaction BUPROPION 03/22/2025 14 - Other: See Comments Comments: Lost ability to walk AND had seizures LATEX 08/20/2019 4 - Hives LEVAQUIN (LEVOFLOXACIN) 04/08/2018 4 - Hives METFORMIN 04/11/2020 6 - Diarrhea Comments: Taken roughly 8 years ago. Caused severe diarrhea NUBAIN (NALBUPHINE HCL) 03/28/2018 14 - Other: See Comments Comments: Increase heart rate TRAZODONE 01/18/2020 4 - Hives ZOFRAN (ONDANSETRON) 03/27/2018 4 - Hives Date Reviewed: 03/22/2025 Reviewed by: Kristy Zhang RN - Fully Assessed Reason for Visit: New Patient [172] Back Pain [12] Cmt: Radiates down LLE Primary Visit Diagnosis:Chronic pain syndrome [G89.4] Other Visit Diagnoses:Type 2 diabetes mellitus with peripheral neuropathy (HCC) [E11.42] Degeneration of intervertebral disc of lumbar region, unspecified whether pain present [M51.369] MELITA (generalized anxiety disorder) [F41.1] Obesity, Class I, BMI 30-34.9 [E66.811] Lumbar spondylosis [M47.816] Sacroiliitis [M46.1] Order(s):XR LUMBAR MOTION 4V AP/LAT/ FLEX/EXT [[id number]] Order #: [id number] FUTURE XR PELVIS 3V AP/INLET/OUTLET [[id number]] Order #: [id number] FUTURE meloxicam (MOBIC) 7.5 mg tabletTake 1 tablet by mouth once daily.Disp: 30 tabletRfl: 0 SPINE INTERVENTION PROCEDURE [[id number]] Order #: [id number] Prescriptions as of 03/22/2025 - busPIRone (BUSPAR) 5 mg tablet Take 5 mg by mouth three times a day. - cenobamate (XCOPRI) 200 mg tablet Take 200 mg by mouth once daily. - ascorbic acid, vitamin C, (VITAMIN C) 500 mg tablet Take 500 mg by mouth once daily. - meloxicam (MOBIC) 7.5 mg tablet Take 1 tablet by mouth once daily. - LORazepam (ATIVAN) 0.5 mg Take 0.5 mg by mouth as needed. - galcanezumab-gnlm (EMGALITY PEN) 120 mg/mL pen Inject 120 mg subcutaneously once every month. Do not shake. - tiZANidine (ZANAFLEX) 4 mg tablet Take 4 mg by mouth every 8 hours as needed. - ubrogepant (UBRELVY) 100 mg tablet Take 1 tablet by mouth as needed. - Insulin [place], Disposable, (ULTICARE PEN NEEDLE) 32 gauge x 532 USE TO INJECT SUBCUTANEOUSLY FOUR TIMES DAILY DIRECTED (BULK) - nystatin (MYCOSTATIN) powder Apply 1 application to affected area two times a day as needed. - semaglutide (OZEMPIC) 0.25 mg or 0.5 mg (2 mg/3 mL) pen INJECT 0.25 MG SUBCUTANEOUSLY ONCE A WEEK - blood sugar diagnostic ([employer] ULTRA TEST) test strip use 1 TEST STRIP to TEST BLOOD SUGAR SIX TIMES DAILY - insulin glargine (LANTUS SOLOSTAR U-100 INSULIN) 100 unit/mL (3 mL) 22 units in the morning and 15 units at bedtime - carBAMazepine XR (TEGRETOL XR) 200 mg 12 hr tablet TAKE ONE TABLET BY MOUTH TWICE DAILY @ 9AM AND 5PM - albuterol HFA (PROAIR HFA) 90 mcg/actuation inhaler Inhale 2 Puffs as instructed every 4 hours as needed for wheezing/shortness of breath. - topiramate (TOPAMAX) 200 mg tablet Take 1 tablet by mouth two times a day. - flash glucose scanning reader (PROnoise GILBERTO 2 READER) Patient checks sugars 6 times daily DX E11.65 - glucagon (GVOKE HYPOPEN 1-PACK) 1 mg/0.2 mL auto-injector INJECT ONE MG INTRAMUSCULARLY IF BLOOD SUGAR ARE BELOW 60 AND ATTEMPT AT ORAL GLUCOSE INTAKE IS NOT EFFECTIVE (BULK) - meclizine (ANTIVERT) 25 mg tab Take 1 tablet by mouth once daily as needed. - insulin lispro 100 unit/mL injection INJECT PER SLIDING SCALE THREE TIMES DAILY FOLLOWS: ONE UNIT IF LESS THAN 111, TWO UNITS 111-150, FOUR UNITS 151-200, SEVEN UNITS 201-250, 10 UNITS 251-300, 13 UNITS 301-350, 16 UNITS 351-400, CALL AND AT NOON OVER 400 (MAX 48 UNITS PER DAY) (BULK) - omeprazole (PRILOSEC) 40 mg capsule TAKE ONE CAPSULE BY MOUTH DAILY AT 9AM (VIAL) - DULoxetine (CYMBALTA) 60 mg capsule TAKE ONE CAPSULE BY MOUTH TWICE DAILY @ 9AM AND 5PM (VIAL) - atorvastatin (LIPITOR) 80 mg tablet Take 1 tablet by mouth once daily. - fluticasone (FLOVENT HFA) 220 mcg/actuation inhaler INHALE 1 PUFF BY MOUTH INTO LUNGS EVERY TWELVE HOURS (RINSE MOUTH AFTER EACH USE) (BULK) - gabapentin (NEURONTIN) 800 mg tablet TAKE ONE TABLET BY MOUTH DAILY AT 9PM AT BEDTIME (VIAL) - flash glucose sensor (FREESTYLE GILBERTO 2 SENSOR) kit Patient checks sugars 6 times daily DX E11.65 - promethazine (PHENERGAN) 25 mg tablet TAKE ONE-HALF TO 1 TABLET BY MOUTH EVERY 6 HOURS NEEDED (VIAL) - dextromethorphan 20 mg - quiNIDine 10 mg (NUEDEXTA) 20-10 mg capsule Take 1 capsule by mouth every 12 hours. - ipratropium-albuterol (DUONEB) 0.5 mg-3 mg(2.5 mg base)/3 mL nebu Inhale 3 mL as instructed every 6 hours as needed (Wheezing / SOB). - hydrOXYzine pamoate (VISTARIL) 25 mg capsule Take 50 mg by mouth daily at bedtime. - iv contrast (will be provided with radiology test) MRI Brain Inject, intravenously, once for 1 dose.No IV access, insert saline lock prior to beginning of sedation, infusion, injection of imaging exam.Discontinue saline lock post exam. If Pt. has a central line or IVAD, may access for administration according to line specific nursing protocol.Once exam is complete flush line and de-access according to line specific nursing protocol in the MR contrast administration guidelines link - iv contrast (will be provided with radiology test) MRI CSP Inject, intravenously, once for 1 dose. No IV access, insert saline lock prior to the beginning of sedation, infusion, injection of imaging exam. Discontinue saline lock post exam. If Pt. has a central line or IVAD, may access for administration according to line specific nursing protocol. Once exam is complete flush line and de-access according to line specific nursing protocol in the MR contrast administration guidelines link. - ergocalciferol 50,000 unit capsule (VITAMIN D2, DRISDOL) TAKE 1 CAPSULE BY MOUTH EVERY WEDNESDAY AT 9AM (VIAL) - Insulin Syringe-Needle U-100 (ADVOCATE SYRINGES) 0.5 mL 31 gauge x 5/16 q meal and @ hs per sliding scale - fluticasone (FLONASE ALLERGY RELIEF) 50 mcg/actuation nasal spray Use 1 Hardin in each nostril once daily. - insulin syr/ndl U100 half shirley (DROPLET INSULIN SYR,HALF UNIT,) 0.5 mL 31 gauge x 5/16 syrg USE TO INJECT INSULIN UNDER THE SKIN EVERY MEAL AND AT BEDTIME PER SLIDING SCALE - Lancets (ONETOUCH ULTRASOFT LANCETS) lancets Check sugars 4 times daily DX E11.3291 DISPENSE WHAT INSURANCE COVERS - DOK 100 mg capsule take 1 capsule by mouth twice a day if needed - melatonin 3 mg tablet Take 12 mg by mouth daily at bedtime. 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*03/28/2018 DDD (degenerative disc disease), lumbar [M51.36*03/28/2018 Benzodiazepine dependence (HCC) [F13.20] 03/28/2018 08/30/2018 Chronic pain syndrome [G89.4] 03/28/2018 Altered mental status [R41.82] 04/03/2018 04/06/2018 Obtunded [R40.1] 04/03/2018 04/04/2018 Hypoglycemia [E16.2] 04/03/2018 11/23/2018 Acute kidney injury (HCC) [N17.9] 04/03/2018 08/30/2018 Hypoxia [R09.02] 04/03/2018 04/04/2018 Pruritic rash [L28.2] 04/04/2018 Generalized weakness [R53.1] 04/08/2018 Migraine [G43.909] 04/08/2018 08/02/2018 Hypertriglyceridemia [E78.1] 04/08/2018 Cough [R05.9] 04/08/2018 04/22/2018 Type 2 diabetes mellitus with peripheral neurop*04/08/2018 Neuropathy involving both lower extremities [G5*04/08/2018 Abscess of left thigh [L02.416] 05/30/2018 08/18/2018 MRSA (methicillin resistant staph aureus) cultu*05/30/2018 08/18/2018 Neuropathy (HCC) [G62.9] 06/06/2018 08/18/2018 Psychiatric disorder [F99] 09/05/2018 Pre-syncope [R55] 07/02/2018 Difficulty swallowing [R13.10] 07/06/2018 07/13/2018 Acute otitis externa [H60.509] 07/09/2018 07/12/2018 Left-sided weakness [R53.1] 07/13/2018 07/13/2018 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] 07/13/2018 Anemia [D64.9] 08/02/2018 08/30/2018 Bilateral low back pain with sciatica [M54.40] 08/02/2018 Migraine without aura and without status migrai*08/02/2018 Pulmonary nodules [R91.8] 08/02/2018 Impaired gait [R26.9] 08/02/2018 Left sided numbness [R20.0] 08/09/2018 Polypharmacy [Z79.899] 08/10/2018 Abnormal urinalysis [R82.90] 08/11/2018 08/30/2018 Tenderness over maxillary sinus [J34.89] 08/13/2018 08/18/2018 Altered mental status [R41.82] 08/29/2018 08/30/2018 Risk for falls [Z91.81] 08/29/2018 08/30/2018 Nicotine use disorder, F17.2 [F17.200] 08/30/2018 08/30/2018 AMS (altered mental status) [R41.82] 08/30/2018 Nicotine use disorder, F17.2 [F17.200] 08/30/2018 Hyperammonemia (HCC) [E72.20] 08/31/2018 Muscular deconditioning [R29.898] 08/31/2018 Dysphagia [R13.10] 08/31/2018 Type 2 diabetes mellitus without complication, *09/21/2018 Cortical age-related cataract, both eyes [H25.0*01/09/2019 Peripheral edema [R60.0] 03/21/2019 Nicotine use [Z72.0] 05/15/2019 DDD (degenerative disc disease), cervical [M50.*09/19/2019 MELITA (generalized anxiety disorder) [F41.1] 06/22/2022 Delirium, drug-induced [R41.0, T50.905A] 06/22/2022 Emphysema of lung (HCC) [J43.9] 06/22/2022 Recurrent falls [R29.6] 07/27/2022 Slurred speech [R47.81] 08/24/2022 Eustachian tube disorder, left [H69.92] 08/24/2022 Seasonal allergic rhinitis [J30.2] 08/24/2022 Former smoker [Z87.891] 11/27/2022 UTI (urinary tract infection) [N39.0] 01/18/2023 04/19/2023 Orthostatic hypotension [I95.1] 01/23/2023 Constipation [K59.00] 01/23/2023 Urinary retention [R33.9] 01/23/2023 Complicated grief [F43.21] 01/29/2023 Vertigo [R42] 01/29/2023 History of TIA (transient ischemic attack) [Z86*04/19/2023 Lumbar spondylosis [M47.816] 03/22/2025 Sacroiliitis [M46.1] 03/22/2025 Other instructions from your clinician: It was a pleasure to see you today. We discussed your back pain and left leg pain: - Based on your symptoms and physical exam, I believe your pain is primarily coming from arthritis in the sacroiliac (SI) joint on the left side. This is a common cause of pain in women and can be missed during evaluations. - You are already doing physical therapy, which is excellent. Please continue with this daily for 10-15 minutes to strengthen your muscles and improve blood flow. 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 - I recommend trying an injection into the SI joint to confirm this is the source of your pain. The first injection will include numbing medication to test for pain relief. If you experience at least 80% relief, we will proceed with a second injection that includes a steroid for longer-lasting relief. My nurse will contact you to schedule this procedure. We discussed your medications: - Continue taking Tizanidine (muscle relaxant) 4 mg three times daily as prescribed. - I am prescribing Meloxicam (Mobic) 15 mg to replace ibuprofen. Take one pill every morning with food for three days in a row, then take a one-day break, and repeat this cycle. Do not take ibuprofen, Aleve, or Advil while on Meloxicam, as these medications can interact. - Gabapentin can be continued as prescribed. We discussed your diabetes: - Your hemoglobin A1c is currently 6.7-6.9, which is a great improvement. Continue managing your blood sugar carefully with your current diet and insulin regimen. We discussed additional testing: - I will order x-rays of your lower back and pelvis to ensure there are no other underlying issues contributing to your pain. Next steps: - My nurse will contact you to schedule the SI joint injection at a time that works for you. - Continue physical therapy daily and take your medications as prescribed. - If you have any new or worsening symptoms, please contact our office. Thank you for trusting me with your care. Our goal at the [facility] is to be the best place for care anywhere. I, along with my staff, are always available to you. It is our privilege to be able to provide you with the highest standard of world-class care. Thank you for trusting us with your health and wellbeing. Kelechi Hoffman MD.ELO Prescriptions ordered this encounter Disp Refills Start End MELOXICAM 7.5 MG TABLET 30 t* 0 03/22/2025 04/21/2025 Route: PO Sig: Take 1 tablet by mouth once daily. Medications Discontinued During This Encounter Prescriptions - Blood-Glucose Meter (Discontinued) Inject 1 Each subcutaneously four times daily. Glucometer of insurance choice. E11.65 - diclofenac, EC, (VOLTAREN) 75 mg EC tablet (Discontinued) Take 75 mg by mouth twice daily. - furosemide (LASIX) 20 mg tablet (Discontinued) Reported on 03/22/2025 - gabapentin (NEURONTIN) 100 mg capsule (Discontinued) Reported on 03/22/2025 - midodrine (PROAMATINE) 10 mg tablet (Discontinued) Reported on 03/22/2025 - polyethylene glycol 3350 17 gram packet (Discontinued) Reported on 03/22/2025 - potassium chloride (K-TAB) 10 mEq tablet (Discontinued) Reported on 03/22/2025 Level of Service: OFFICE/OUTPATIENT NEW MODERATE MDM 45 MINUTES [51909] Additional E/M codes: VISIT CPLX INHERENT EANDM ASSOC WITH MED * Disposition: Return for Return for Procedure . Follow-up and Disposition History for Encounter Date Provider Department Center 03/22/2025 [id number], TRISHUL ERICH Berry [facility] Encounter Status:Closed by KLEBER DRIVER on 03/22/25 PROGRESS Observed: 09/15/2024 10:41 AM Status: COMPLETED Source: [facility] HNO ID: [id number] Author: VICKIE LAUGHLIN RN Service: ? Author Type: Registered Nurse Type: Progress Notes Filed: 09/15/2024 10:42 Note Text: Patient is Residing at [facility] under the care of facility physician, Dr. Wendy Sosa MD . Dr. Wendy Sosa MD will manage all patient care hereafter (including refilling prescriptions). [facility] chart updated to reflect PCP change. Vickie Laughlin RN CNPTOUTREACH Observed: 09/15/2024 12:00 AM Status: COMPLETED Source: [facility] Patient Outreach (AGACM) FAM SOTO ([id number]) 1965 F Date Time Provider Department 09/15/24 VICKIE LAUGHLIN [facility] During your visit today, we recorded the following information about you: Vickie Laughlin RN 09/15/2024 10:42 AM Signed Patient is Residing at [facility] under the care of facility physician, Dr. Wendy Sosa MD . Dr. Wendy Sosa MD will manage all patient care hereafter (including refilling prescriptions). [facility] chart updated to reflect PCP change. Vickie Laughlin RN Allergies As of Date: 09/15/2024 Noted Allergy Reaction LATEX 08/20/2019 4 - Hives LEVAQUIN (LEVOFLOXACIN) 04/08/2018 4 - Hives METFORMIN 04/11/2020 6 - Diarrhea Comments: Taken roughly 8 years ago. Caused severe diarrhea NUBAIN (NALBUPHINE HCL) 03/28/2018 14 - Other: See Comments Comments: Increase heart rate TRAZODONE 01/18/2020 4 - Hives ZOFRAN (ONDANSETRON) 03/27/2018 4 - Hives Date Reviewed: 10/07/2023 Reviewed by: Rose Mary Logan PA-C - Fully Assessed Reason for Visit: Transition Of Care [4074] Cmt: PCP update Prescriptions as of 09/15/2024 - LORazepam (ATIVAN) 0.5 mg Take 0.5 mg by mouth as needed. - galcanezumab-gnlm (EMGALITY PEN) 120 mg/mL pen Inject 120 mg subcutaneously once every month. Do not shake. - tiZANidine (ZANAFLEX) 4 mg tablet Take 4 mg by mouth every 8 hours as needed. - ubrogepant (UBRELVY) 100 mg tablet Take 1 tablet by mouth as needed. - potassium chloride (K-TAB) 10 mEq tablet Take 1 tablet by mouth once daily. - furosemide (LASIX) 20 mg tablet Take 1 tablet by mouth once daily. - Insulin [place], Disposable, (ULTICARE PEN NEEDLE) 32 gauge x 5/32 USE TO INJECT SUBCUTANEOUSLY FOUR TIMES DAILY DIRECTED (BULK) - nystatin (MYCOSTATIN) powder Apply 1 application to affected area two times a day as needed. - semaglutide (OZEMPIC) 0.25 mg or 0.5 mg (2 mg/3 mL) pen INJECT 0.25 MG SUBCUTANEOUSLY ONCE A WEEK - blood sugar diagnostic (ONETOUCH ULTRA TEST) test strip use 1 TEST STRIP to TEST BLOOD SUGAR SIX TIMES DAILY - insulin glargine (LANTUS SOLOSTAR U-100 INSULIN) 100 unit/mL (3 mL) 22 units in the morning and 15 units at bedtime - carBAMazepine XR (TEGRETOL XR) 200 mg 12 hr tablet TAKE ONE TABLET BY MOUTH TWICE DAILY @ 9AM AND 5PM - albuterol HFA (PROAIR HFA) 90 mcg/actuation inhaler Inhale 2 Puffs as instructed every 4 hours as needed for wheezing/shortness of breath. - topiramate (TOPAMAX) 200 mg tablet Take 1 tablet by mouth two times a day. - flash glucose scanning reader (FREESTYLE GILBERTO 2 READER) Patient checks sugars 6 times daily DX E11.65 - glucagon (GVOKE HYPOPEN 1-PACK) 1 mg/0.2 mL auto-injector INJECT ONE MG INTRAMUSCULARLY IF BLOOD SUGAR ARE BELOW 60 AND ATTEMPT AT ORAL GLUCOSE INTAKE IS NOT EFFECTIVE (BULK) - meclizine (ANTIVERT) 25 mg tab Take 1 tablet by mouth once daily as needed. - insulin lispro 100 unit/mL injection INJECT PER SLIDING SCALE THREE TIMES DAILY FOLLOWS: ONE UNIT IF LESS THAN 111, TWO UNITS 111-150, FOUR UNITS 151-200, SEVEN UNITS 201-250, 10 UNITS 251-300, 13 UNITS 301-350, 16 UNITS 351-400, CALL AND AT NOON OVER 400 (MAX 48 UNITS PER DAY) (BULK) - omeprazole (PRILOSEC) 40 mg capsule TAKE ONE CAPSULE BY MOUTH DAILY AT 9AM (VIAL) - DULoxetine (CYMBALTA) 60 mg capsule TAKE ONE CAPSULE BY MOUTH TWICE DAILY @ 9AM AND 5PM (VIAL) - atorvastatin (LIPITOR) 80 mg tablet Take 1 tablet by mouth once daily. - midodrine (PROAMATINE) 10 mg tablet take 1 tablet by mouth three times a day - fluticasone (FLOVENT HFA) 220 mcg/actuation inhaler INHALE 1 PUFF BY MOUTH INTO LUNGS EVERY TWELVE HOURS (RINSE MOUTH AFTER EACH USE) (BULK) - gabapentin (NEURONTIN) 800 mg tablet TAKE ONE TABLET BY MOUTH DAILY AT 9PM AT BEDTIME (VIAL) - flash glucose sensor (FREESTYLE GILBERTO 2 SENSOR) kit Patient checks sugars 6 times daily DX E11.65 - promethazine (PHENERGAN) 25 mg tablet TAKE ONE-HALF TO 1 TABLET BY MOUTH EVERY 6 HOURS NEEDED (VIAL) - dextromethorphan 20 mg - quiNIDine 10 mg (NUEDEXTA) 20-10 mg capsule Take 1 capsule by mouth every 12 hours. - ipratropium-albuterol (DUONEB) 0.5 mg-3 mg(2.5 mg base)/3 mL nebu Inhale 3 mL as instructed every 6 hours as needed (Wheezing / SOB). - gabapentin (NEURONTIN) 100 mg capsule Take 1 capsule by mouth twice daily for 90 days. - polyethylene glycol 3350 17 gram packet Take 1 Packet by mouth once daily as needed for constipation. Dissolve dose in 4 - 8 ounces of liquid and take as directed. - hydrOXYzine pamoate (VISTARIL) 25 mg capsule Take 50 mg by mouth daily at bedtime. - iv contrast (will be provided with radiology test) MRI Brain Inject, intravenously, once for 1 dose.No IV access, insert saline lock prior to beginning of sedation, infusion, injection of imaging exam.Discontinue saline lock post exam. If Pt. has a central line or IVAD, may access for administration according to line specific nursing protocol.Once exam is complete flush line and de-access according to line specific nursing protocol in the MR contrast administration guidelines link - iv contrast (will be provided with radiology test) MRI CSP Inject, intravenously, once for 1 dose. No IV access, insert saline lock prior to the beginning of sedation, infusion, injection of imaging exam. Discontinue saline lock post exam. If Pt. has a central line or IVAD, may access for administration according to line specific nursing protocol. Once exam is complete flush line and de-access according to line specific nursing protocol in the MR contrast administration guidelines link. - Blood-Glucose Meter Inject 1 Each subcutaneously four times daily. Glucometer of insurance choice. E11.65 - ergocalciferol 50,000 unit capsule (VITAMIN D2, DRISDOL) TAKE 1 CAPSULE BY MOUTH EVERY WEDNESDAY AT 9AM (VIAL) - Insulin Syringe-Needle U-100 (ADVOCATE SYRINGES) 0.5 mL 31 gauge x 5/16 q meal and @ hs per sliding scale - fluticasone (FLONASE ALLERGY RELIEF) 50 mcg/actuation nasal spray Use 1 Hardin in each nostril once daily. - insulin syr/ndl U100 half shirley (DROPLET INSULIN SYR,HALF UNIT,) 0.5 mL 31 gauge x 5/16 syrg USE TO INJECT INSULIN UNDER THE SKIN EVERY MEAL AND AT BEDTIME PER SLIDING SCALE - Lancets (ONETOUCH ULTRASOFT LANCETS) lancets Check sugars 4 times daily DX E11.3291 DISPENSE WHAT INSURANCE COVERS - diclofenac, EC, (VOLTAREN) 75 mg EC tablet Take 75 mg by mouth twice daily. - DOK 100 mg capsule take 1 capsule by mouth twice a day if needed - melatonin 3 mg tablet Take 12 mg by mouth daily at bedtime. 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*03/28/2018 DDD (degenerative disc disease), lumbar [M51.36*03/28/2018 Benzodiazepine dependence (HCC) [F13.20] 03/28/2018 08/30/2018 Chronic pain syndrome [G89.4] 03/28/2018 Altered mental status [R41.82] 04/03/2018 04/06/2018 Obtunded [R40.1] 04/03/2018 04/04/2018 Hypoglycemia [E16.2] 04/03/2018 11/23/2018 Acute kidney injury (HCC) [N17.9] 04/03/2018 08/30/2018 Hypoxia [R09.02] 04/03/2018 04/04/2018 Pruritic rash [L28.2] 04/04/2018 Generalized weakness [R53.1] 04/08/2018 Migraine [G43.909] 04/08/2018 08/02/2018 Hypertriglyceridemia [E78.1] 04/08/2018 Cough [R05.9] 04/08/2018 04/22/2018 Type 2 diabetes mellitus with peripheral neurop*04/08/2018 Neuropathy involving both lower extremities [G5*04/08/2018 Abscess of left thigh [L02.416] 05/30/2018 08/18/2018 MRSA (methicillin resistant staph aureus) cultu*05/30/2018 08/18/2018 Neuropathy (HCC) [G62.9] 06/06/2018 08/18/2018 Psychiatric disorder [F99] 09/05/2018 Pre-syncope [R55] 07/02/2018 Difficulty swallowing [R13.10] 07/06/2018 07/13/2018 Acute otitis externa [H60.509] 07/09/2018 07/12/2018 Left-sided weakness [R53.1] 07/13/2018 07/13/2018 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] 07/13/2018 Anemia [D64.9] 08/02/2018 08/30/2018 Bilateral low back pain with sciatica [M54.40] 08/02/2018 Migraine without aura and without status migrai*08/02/2018 Pulmonary nodules [R91.8] 08/02/2018 Impaired gait [R26.9] 08/02/2018 Left sided numbness [R20.0] 08/09/2018 Polypharmacy [Z79.899] 08/10/2018 Abnormal urinalysis [R82.90] 08/11/2018 08/30/2018 Tenderness over maxillary sinus [J34.89] 08/13/2018 08/18/2018 Altered mental status [R41.82] 08/29/2018 08/30/2018 Risk for falls [Z91.81] 08/29/2018 08/30/2018 Nicotine use disorder, F17.2 [F17.200] 08/30/2018 08/30/2018 AMS (altered mental status) [R41.82] 08/30/2018 Nicotine use disorder, F17.2 [F17.200] 08/30/2018 Hyperammonemia (HCC) [E72.20] 08/31/2018 Muscular deconditioning [R29.898] 08/31/2018 Dysphagia [R13.10] 08/31/2018 Type 2 diabetes mellitus without complication, *09/21/2018 Cortical age-related cataract, both eyes [H25.0*01/09/2019 Peripheral edema [R60.0] 03/21/2019 Nicotine use [Z72.0] 05/15/2019 DDD (degenerative disc disease), cervical [M50.*09/19/2019 MELITA (generalized anxiety disorder) [F41.1] 06/22/2022 Delirium, drug-induced [R41.0, T50.905A] 06/22/2022 Emphysema of lung (HCC) [J43.9] 06/22/2022 Recurrent falls [R29.6] 07/27/2022 Slurred speech [R47.81] 08/24/2022 Eustachian tube disorder, left [H69.92] 08/24/2022 Seasonal allergic rhinitis [J30.2] 08/24/2022 Former smoker [Z87.891] 11/27/2022 UTI (urinary tract infection) [N39.0] 01/18/2023 04/19/2023 Orthostatic hypotension [I95.1] 01/23/2023 Constipation [K59.00] 01/23/2023 Urinary retention [R33.9] 01/23/2023 Complicated grief [F43.21] 01/29/2023 Vertigo [R42] 01/29/2023 History of TIA (transient ischemic attack) [Z86*04/19/2023 Encounter Status:Closed by VICKIE LAUGHLIN on 09/15/24 PROGRESS Observed: 08/22/2024 3:00 PM Status: COMPLETED Source: [facility] HNO ID: [id number] Author: VICKIE LAUGHLIN RN Service: ? Author Type: Registered Nurse Type: Progress Notes Filed: 08/22/2024 15:02 Note Text: ED Follow-Up Note Provider Action / FYI: Call completed by: RN Patient seen in ED: Out of Network ED Contact made with Patient: No, unable to leave message. Phone number is no longer in service Vickie Laughlin RN August 22, 2024 3:02 PM CNPTOUTREACH Observed: 08/22/2024 12:00 AM Status: COMPLETED Source: [facility] Patient Outreach (AGACM) FAM SOTO ([id number]) 1965 F Date Time Provider Department 08/22/24 VICKIE LAUGHLIN During your visit today, we recorded the following information about you: Vickie Laughlin RN 08/22/2024 3:02 PM Signed ED Follow-Up Note Provider Action / FYI: Call completed by: RN Patient seen in ED: Out of Network ED Contact made with Patient: No, unable to leave message. Phone number is no longer in service Vickie Laughlin RN August 22, 2024 3:02 PM Allergies As of Date: 08/22/2024 Noted Allergy Reaction LATEX 08/20/2019 4 - Hives LEVAQUIN (LEVOFLOXACIN) 04/08/2018 4 - Hives METFORMIN 04/11/2020 6 - Diarrhea Comments: Taken roughly 8 years ago. Caused severe diarrhea NUBAIN (NALBUPHINE HCL) 03/28/2018 14 - Other: See Comments Comments: Increase heart rate TRAZODONE 01/18/2020 4 - Hives ZOFRAN (ONDANSETRON) 03/27/2018 4 - Hives Date Reviewed: 10/07/2023 Reviewed by: Rose Mary Logan PA-C - Fully Assessed Reason for Visit: Population Health Navigation Outreach [3910] Cmt: [facility] on 08/19/2024 Prescriptions as of 08/22/2024 - LORazepam (ATIVAN) 0.5 mg Take 0.5 mg by mouth as needed. - galcanezumab-gnlm (EMGALITY PEN) 120 mg/mL pen Inject 120 mg subcutaneously once every month. Do not shake. - tiZANidine (ZANAFLEX) 4 mg tablet Take 4 mg by mouth every 8 hours as needed. - ubrogepant (UBRELVY) 100 mg tablet Take 1 tablet by mouth as needed. - potassium chloride (K-TAB) 10 mEq tablet Take 1 tablet by mouth once daily. - furosemide (LASIX) 20 mg tablet Take 1 tablet by mouth once daily. - Insulin [place], Disposable, (ULTICARE PEN NEEDLE) 32 gauge x 5/32 USE TO INJECT SUBCUTANEOUSLY FOUR TIMES DAILY DIRECTED (BULK) - nystatin (MYCOSTATIN) powder Apply 1 application to affected area two times a day as needed. - semaglutide (OZEMPIC) 0.25 mg or 0.5 mg (2 mg/3 mL) pen INJECT 0.25 MG SUBCUTANEOUSLY ONCE A WEEK - blood sugar diagnostic (Channel MTOUCH ULTRA TEST) test strip use 1 TEST STRIP to TEST BLOOD SUGAR SIX TIMES DAILY - insulin glargine (LANTUS SOLOSTAR U-100 INSULIN) 100 unit/mL (3 mL) 22 units in the morning and 15 units at bedtime - carBAMazepine XR (TEGRETOL XR) 200 mg 12 hr tablet TAKE ONE TABLET BY MOUTH TWICE DAILY @ 9AM AND 5PM - albuterol HFA (PROAIR HFA) 90 mcg/actuation inhaler Inhale 2 Puffs as instructed every 4 hours as needed for wheezing/shortness of breath. - topiramate (TOPAMAX) 200 mg tablet Take 1 tablet by mouth two times a day. - flash glucose scanning reader (iDreamsky TechnologySTYLE GILBERTO 2 READER) Patient checks sugars 6 times daily DX E11.65 - glucagon (GVOKE HYPOPEN 1-PACK) 1 mg/0.2 mL auto-injector INJECT ONE MG INTRAMUSCULARLY IF BLOOD SUGAR ARE BELOW 60 AND ATTEMPT AT ORAL GLUCOSE INTAKE IS NOT EFFECTIVE (BULK) - meclizine (ANTIVERT) 25 mg tab Take 1 tablet by mouth once daily as needed. - insulin lispro 100 unit/mL injection INJECT PER SLIDING SCALE THREE TIMES DAILY FOLLOWS: ONE UNIT IF LESS THAN 111, TWO UNITS 111-150, FOUR UNITS 151-200, SEVEN UNITS 201-250, 10 UNITS 251-300, 13 UNITS 301-350, 16 UNITS 351-400, CALL AND AT NOON OVER 400 (MAX 48 UNITS PER DAY) (BULK) - omeprazole (PRILOSEC) 40 mg capsule TAKE ONE CAPSULE BY MOUTH DAILY AT 9AM (VIAL) - DULoxetine (CYMBALTA) 60 mg capsule TAKE ONE CAPSULE BY MOUTH TWICE DAILY @ 9AM AND 5PM (VIAL) - atorvastatin (LIPITOR) 80 mg tablet Take 1 tablet by mouth once daily. - midodrine (PROAMATINE) 10 mg tablet take 1 tablet by mouth three times a day - fluticasone (FLOVENT HFA) 220 mcg/actuation inhaler INHALE 1 PUFF BY MOUTH INTO LUNGS EVERY TWELVE HOURS (RINSE MOUTH AFTER EACH USE) (BULK) - gabapentin (NEURONTIN) 800 mg tablet TAKE ONE TABLET BY MOUTH DAILY AT 9PM AT BEDTIME (VIAL) - flash glucose sensor (FREESTYLE GILBERTO 2 SENSOR) kit Patient checks sugars 6 times daily DX E11.65 - promethazine (PHENERGAN) 25 mg tablet TAKE ONE-HALF TO 1 TABLET BY MOUTH EVERY 6 HOURS NEEDED (VIAL) - dextromethorphan 20 mg - quiNIDine 10 mg (NUEDEXTA) 20-10 mg capsule Take 1 capsule by mouth every 12 hours. - ipratropium-albuterol (DUONEB) 0.5 mg-3 mg(2.5 mg base)/3 mL nebu Inhale 3 mL as instructed every 6 hours as needed (Wheezing / SOB). - gabapentin (NEURONTIN) 100 mg capsule Take 1 capsule by mouth twice daily for 90 days. - polyethylene glycol 3350 17 gram packet Take 1 Packet by mouth once daily as needed for constipation. Dissolve dose in 4 - 8 ounces of liquid and take as directed. - hydrOXYzine pamoate (VISTARIL) 25 mg capsule Take 50 mg by mouth daily at bedtime. - iv contrast (will be provided with radiology test) MRI Brain Inject, intravenously, once for 1 dose.No IV access, insert saline lock prior to beginning of sedation, infusion, injection of imaging exam.Discontinue saline lock post exam. If Pt. has a central line or IVAD, may access for administration according to line specific nursing protocol.Once exam is complete flush line and de-access according to line specific nursing protocol in the MR contrast administration guidelines link - iv contrast (will be provided with radiology test) MRI CSP Inject, intravenously, once for 1 dose. No IV access, insert saline lock prior to the beginning of sedation, infusion, injection of imaging exam. Discontinue saline lock post exam. If Pt. has a central line or IVAD, may access for administration according to line specific nursing protocol. Once exam is complete flush line and de-access according to line specific nursing protocol in the MR contrast administration guidelines link. - Blood-Glucose Meter Inject 1 Each subcutaneously four times daily. Glucometer of insurance choice. E11.65 - ergocalciferol 50,000 unit capsule (VITAMIN D2, DRISDOL) TAKE 1 CAPSULE BY MOUTH EVERY WEDNESDAY AT 9AM (VIAL) - Insulin Syringe-Needle U-100 (ADVOCATE SYRINGES) 0.5 mL 31 gauge x 5/16 q meal and @ hs per sliding scale - fluticasone (FLONASE ALLERGY RELIEF) 50 mcg/actuation nasal spray Use 1 [place]in in each nostril once daily. - insulin syr/ndl U100 half shirley (DROPLET INSULIN SYR,HALF UNIT,) 0.5 mL 31 gauge x 5/16 syrg USE TO INJECT INSULIN UNDER THE SKIN EVERY MEAL AND AT BEDTIME PER SLIDING SCALE - Lancets (Channel MTOUCH ULTRASOFT LANCETS) lancets Check sugars 4 times daily DX E11.3291 DISPENSE WHAT INSURANCE COVERS - diclofenac, EC, (VOLTAREN) 75 mg EC tablet Take 75 mg by mouth twice daily. - DOK 100 mg capsule take 1 capsule by mouth twice a day if needed - melatonin 3 mg tablet Take 12 mg by mouth daily at bedtime. 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*03/28/2018 DDD (degenerative disc disease), lumbar [M51.36*03/28/2018 Benzodiazepine dependence (HCC) [F13.20] 03/28/2018 08/30/2018 Chronic pain syndrome [G89.4] 03/28/2018 Altered mental status [R41.82] 04/03/2018 04/06/2018 Obtunded [R40.1] 04/03/2018 04/04/2018 Hypoglycemia [E16.2] 04/03/2018 11/23/2018 Acute kidney injury (HCC) [N17.9] 04/03/2018 08/30/2018 Hypoxia [R09.02] 04/03/2018 04/04/2018 Pruritic rash [L28.2] 04/04/2018 Generalized weakness [R53.1] 04/08/2018 Migraine [G43.909] 04/08/2018 08/02/2018 Hypertriglyceridemia [E78.1] 04/08/2018 Cough [R05.9] 04/08/2018 04/22/2018 Type 2 diabetes mellitus with peripheral neurop*04/08/2018 Neuropathy involving both lower extremities [G5*04/08/2018 Abscess of left thigh [L02.416] 05/30/2018 08/18/2018 MRSA (methicillin resistant staph aureus) cultu*05/30/2018 08/18/2018 Neuropathy (HCC) [G62.9] 06/06/2018 08/18/2018 Psychiatric disorder [F99] 09/05/2018 Pre-syncope [R55] 07/02/2018 Difficulty swallowing [R13.10] 07/06/2018 07/13/2018 Acute otitis externa [H60.509] 07/09/2018 07/12/2018 Left-sided weakness [R53.1] 07/13/2018 07/13/2018 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] 07/13/2018 Anemia [D64.9] 08/02/2018 08/30/2018 Bilateral low back pain with sciatica [M54.40] 08/02/2018 Migraine without aura and without status migrai*08/02/2018 Pulmonary nodules [R91.8] 08/02/2018 Impaired gait [R26.9] 08/02/2018 Left sided numbness [R20.0] 08/09/2018 Polypharmacy [Z79.899] 08/10/2018 Abnormal urinalysis [R82.90] 08/11/2018 08/30/2018 Tenderness over maxillary sinus [J34.89] 08/13/2018 08/18/2018 Altered mental status [R41.82] 08/29/2018 08/30/2018 Risk for falls [Z91.81] 08/29/2018 08/30/2018 Nicotine use disorder, F17.2 [F17.200] 08/30/2018 08/30/2018 AMS (altered mental status) [R41.82] 08/30/2018 Nicotine use disorder, F17.2 [F17.200] 08/30/2018 Hyperammonemia (HCC) [E72.20] 08/31/2018 Muscular deconditioning [R29.898] 08/31/2018 Dysphagia [R13.10] 08/31/2018 Type 2 diabetes mellitus without complication, *09/21/2018 Cortical age-related cataract, both eyes [H25.0*01/09/2019 Peripheral edema [R60.0] 03/21/2019 Nicotine use [Z72.0] 05/15/2019 DDD (degenerative disc disease), cervical [M50.*09/19/2019 MELITA (generalized anxiety disorder) [F41.1] 06/22/2022 Delirium, drug-induced [R41.0, T50.905A] 06/22/2022 Emphysema of lung (HCC) [J43.9] 06/22/2022 Recurrent falls [R29.6] 07/27/2022 Slurred speech [R47.81] 08/24/2022 Eustachian tube disorder, left [H69.92] 08/24/2022 Seasonal allergic rhinitis [J30.2] 08/24/2022 Former smoker [Z87.891] 11/27/2022 UTI (urinary tract infection) [N39.0] 01/18/2023 04/19/2023 Orthostatic hypotension [I95.1] 01/23/2023 Constipation [K59.00] 01/23/2023 Urinary retention [R33.9] 01/23/2023 Complicated grief [F43.21] 01/29/2023 Vertigo [R42] 01/29/2023 History of TIA (transient ischemic attack) [Z86*04/19/2023 Encounter Status:Closed by VICKIE LAUGHLIN on 08/22/24 PROGRESS Observed: 05/10/2024 9:45 AM Status: COMPLETED Source: [facility] HNO ID: [id number] Author: PEARL NARANJO MA Service: ? Author Type: Foreign Exchange Services Manager Type: Progress Notes Filed: 05/10/2024 09:48 Note Text: ED Follow Up: Patient discharged from [facility] ED on 05/05/24. 1. How are you feeling since your ED visit? Left message inquiring how patient is doing since recent ER visit and recommended calling back if she needs anything Have your symptoms improved or resolved? Left message 2. Were you prescribed any medications while in the ED or advised to stop any medication? Left message - If yes, were you able to fill your prescriptions? Left message -if stopped medication, what was the medication? Left message 3. Were you advised to schedule a follow up appointment with your provider? Left message - If no, Do you feel like you need an appointment scheduled? Left message - If yes, Do you need this scheduled now or has this already been scheduled? Left message 4. Were you able to contact the office or conservation assistant provider prior to your ED visit? left message 5. Is there anything else I can do for you today? Left message Pearl Naranjo MA CNPTOUTREACH Observed: 05/10/2024 12:00 AM Status: COMPLETED Source: [facility] Patient Outreach (AGMARYANNMPLE) FAM SOTO ([id number]) 1965 F Date Time Provider Department 05/10/24 PEARL NARANJO During your visit today, we recorded the following information about you: Pearl Naranjo MA 05/10/2024 9:48 AM Signed ED Follow Up: Patient discharged from [facility] ED on 05/05/24. 1. How are you feeling since your ED visit? Left message inquiring how patient is doing since recent ER visit and recommended calling back if she needs anything Have your symptoms improved or resolved? Left message 2. Were you prescribed any medications while in the ED or advised to stop any medication? Left message - If yes, were you able to fill your prescriptions? Left message -if stopped medication, what was the medication? Left message 3. Were you advised to schedule a follow up appointment with your provider? Left message - If no, Do you feel like you need an appointment scheduled? Left message - If yes, Do you need this scheduled now or has this already been scheduled? Left message 4. Were you able to contact the office or conservation assistant provider prior to your ED visit? left message 5. Is there anything else I can do for you today? Left message Pearl Naranjo MA Allergies As of Date: 05/10/2024 Noted Allergy Reaction LATEX 08/20/2019 4 - Hives LEVAQUIN (LEVOFLOXACIN) 04/08/2018 4 - Hives METFORMIN 04/11/2020 6 - Diarrhea Comments: Taken roughly 8 years ago. Caused severe diarrhea NUBAIN (NALBUPHINE HCL) 03/28/2018 14 - Other: See Comments Comments: Increase heart rate TRAZODONE 01/18/2020 4 - Hives ZOFRAN (ONDANSETRON) 03/27/2018 4 - Hives Date Reviewed: 10/07/2023 Reviewed by: Rose Mary Logan PA-C - Fully Assessed Reason for Visit: ED Outreach [Other] Cmt: [facility] 05/05/24 Prescriptions as of 05/10/2024 - LORazepam (ATIVAN) 0.5 mg Take 0.5 mg by mouth as needed. - galcanezumab-gnlm (EMGALITY PEN) 120 mg/mL pen Inject 120 mg subcutaneously once every month. Do not shake. - tiZANidine (ZANAFLEX) 4 mg tablet Take 4 mg by mouth every 8 hours as needed. - ubrogepant (UBRELVY) 100 mg tablet Take 1 tablet by mouth as needed. - potassium chloride (K-TAB) 10 mEq tablet Take 1 tablet by mouth once daily. - furosemide (LASIX) 20 mg tablet Take 1 tablet by mouth once daily. - Insulin [place], Disposable, (ULTICARE PEN NEEDLE) 32 gauge x 5/32 USE TO INJECT SUBCUTANEOUSLY FOUR TIMES DAILY DIRECTED (BULK) - nystatin (MYCOSTATIN) powder Apply 1 application to affected area two times a day as needed. - semaglutide (OZEMPIC) 0.25 mg or 0.5 mg (2 mg/3 mL) pen INJECT 0.25 MG SUBCUTANEOUSLY ONCE A WEEK - blood sugar diagnostic ([employer] ULTRA TEST) test strip use 1 TEST STRIP to TEST BLOOD SUGAR SIX TIMES DAILY - insulin glargine (LANTUS SOLOSTAR U-100 INSULIN) 100 unit/mL (3 mL) 22 units in the morning and 15 units at bedtime - carBAMazepine XR (TEGRETOL XR) 200 mg 12 hr tablet TAKE ONE TABLET BY MOUTH TWICE DAILY @ 9AM AND 5PM - albuterol HFA (PROAIR HFA) 90 mcg/actuation inhaler Inhale 2 Puffs as instructed every 4 hours as needed for wheezing/shortness of breath. - topiramate (TOPAMAX) 200 mg tablet Take 1 tablet by mouth two times a day. - flash glucose scanning reader ([employer] GILBERTO 2 READER) Patient checks sugars 6 times daily DX E11.65 - glucagon (GVOKE HYPOPEN 1-PACK) 1 mg/0.2 mL auto-injector INJECT ONE MG INTRAMUSCULARLY IF BLOOD SUGAR ARE BELOW 60 AND ATTEMPT AT ORAL GLUCOSE INTAKE IS NOT EFFECTIVE (BULK) - meclizine (ANTIVERT) 25 mg tab Take 1 tablet by mouth once daily as needed. - insulin lispro 100 unit/mL injection INJECT PER SLIDING SCALE THREE TIMES DAILY FOLLOWS: ONE UNIT IF LESS THAN 111, TWO UNITS 111-150, FOUR UNITS 151-200, SEVEN UNITS 201-250, 10 UNITS 251-300, 13 UNITS 301-350, 16 UNITS 351-400, CALL AND AT NOON OVER 400 (MAX 48 UNITS PER DAY) (BULK) - omeprazole (PRILOSEC) 40 mg capsule TAKE ONE CAPSULE BY MOUTH DAILY AT 9AM (VIAL) - DULoxetine (CYMBALTA) 60 mg capsule TAKE ONE CAPSULE BY MOUTH TWICE DAILY @ 9AM AND 5PM (VIAL) - atorvastatin (LIPITOR) 80 mg tablet Take 1 tablet by mouth once daily. - midodrine (PROAMATINE) 10 mg tablet take 1 tablet by mouth three times a day - fluticasone (FLOVENT HFA) 220 mcg/actuation inhaler INHALE 1 PUFF BY MOUTH INTO LUNGS EVERY TWELVE HOURS (RINSE MOUTH AFTER EACH USE) (BULK) - gabapentin (NEURONTIN) 800 mg tablet TAKE ONE TABLET BY MOUTH DAILY AT 9PM AT BEDTIME (VIAL) - flash glucose sensor (FREESTYLE GILBERTO 2 SENSOR) kit Patient checks sugars 6 times daily DX E11.65 - promethazine (PHENERGAN) 25 mg tablet TAKE ONE-HALF TO 1 TABLET BY MOUTH EVERY 6 HOURS NEEDED (VIAL) - dextromethorphan 20 mg - quiNIDine 10 mg (NUEDEXTA) 20-10 mg capsule Take 1 capsule by mouth every 12 hours. - ipratropium-albuterol (DUONEB) 0.5 mg-3 mg(2.5 mg base)/3 mL nebu Inhale 3 mL as instructed every 6 hours as needed (Wheezing / SOB). - gabapentin (NEURONTIN) 100 mg capsule Take 1 capsule by mouth twice daily for 90 days. - polyethylene glycol 3350 17 gram packet Take 1 Packet by mouth once daily as needed for constipation. Dissolve dose in 4 - 8 ounces of liquid and take as directed. - hydrOXYzine pamoate (VISTARIL) 25 mg capsule Take 50 mg by mouth daily at bedtime. - iv contrast (will be provided with radiology test) MRI Brain Inject, intravenously, once for 1 dose.No IV access, insert saline lock prior to beginning of sedation, infusion, injection of imaging exam.Discontinue saline lock post exam. If Pt. has a central line or IVAD, may access for administration according to line specific nursing protocol.Once exam is complete flush line and de-access according to line specific nursing protocol in the MR contrast administration guidelines link - iv contrast (will be provided with radiology test) MRI CSP Inject, intravenously, once for 1 dose. No IV access, insert saline lock prior to the beginning of sedation, infusion, injection of imaging exam. Discontinue saline lock post exam. If Pt. has a central line or IVAD, may access for administration according to line specific nursing protocol. Once exam is complete flush line and de-access according to line specific nursing protocol in the MR contrast administration guidelines link. - Blood-Glucose Meter Inject 1 Each subcutaneously four times daily. Glucometer of insurance choice. E11.65 - ergocalciferol 50,000 unit capsule (VITAMIN D2, DRISDOL) TAKE 1 CAPSULE BY MOUTH EVERY WEDNESDAY AT 9AM (VIAL) - Insulin Syringe-Needle U-100 (ADVOCATE SYRINGES) 0.5 mL 31 gauge x 5/16 q meal and @ hs per sliding scale - fluticasone (FLONASE ALLERGY RELIEF) 50 mcg/actuation nasal spray Use 1 [place] in each nostril once daily. - insulin syr/ndl U100 half shirley (DROPLET INSULIN SYR,HALF UNIT,) 0.5 mL 31 gauge x 5/16 syrg USE TO INJECT INSULIN UNDER THE SKIN EVERY MEAL AND AT BEDTIME PER SLIDING SCALE - Lancets (ONETOUCH ULTRASOFT LANCETS) lancets Check sugars 4 times daily DX E11.3291 DISPENSE WHAT INSURANCE COVERS - diclofenac, EC, (VOLTAREN) 75 mg EC tablet Take 75 mg by mouth twice daily. - DOK 100 mg capsule take 1 capsule by mouth twice a day if needed - melatonin 3 mg tablet Take 12 mg by mouth daily at bedtime. 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*03/28/2018 DDD (degenerative disc disease), lumbar [M51.36*03/28/2018 Benzodiazepine dependence (HCC) [F13.20] 03/28/2018 08/30/2018 Chronic pain syndrome [G89.4] 03/28/2018 Altered mental status [R41.82] 04/03/2018 04/06/2018 Obtunded [R40.1] 04/03/2018 04/04/2018 Hypoglycemia [E16.2] 04/03/2018 11/23/2018 Acute kidney injury (HCC) [N17.9] 04/03/2018 08/30/2018 Hypoxia [R09.02] 04/03/2018 04/04/2018 Pruritic rash [L28.2] 04/04/2018 Generalized weakness [R53.1] 04/08/2018 Migraine [G43.909] 04/08/2018 08/02/2018 Hypertriglyceridemia [E78.1] 04/08/2018 Cough [R05.9] 04/08/2018 04/22/2018 Type 2 diabetes mellitus with peripheral neurop*04/08/2018 Neuropathy involving both lower extremities [G5*04/08/2018 Abscess of left thigh [L02.416] 05/30/2018 08/18/2018 MRSA (methicillin resistant staph aureus) cultu*05/30/2018 08/18/2018 Neuropathy (HCC) [G62.9] 06/06/2018 08/18/2018 Psychiatric disorder [F99] 09/05/2018 Pre-syncope [R55] 07/02/2018 Difficulty swallowing [R13.10] 07/06/2018 07/13/2018 Acute otitis externa [H60.509] 07/09/2018 07/12/2018 Left-sided weakness [R53.1] 07/13/2018 07/13/2018 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] 07/13/2018 Anemia [D64.9] 08/02/2018 08/30/2018 Bilateral low back pain with sciatica [M54.40] 08/02/2018 Migraine without aura and without status migrai*08/02/2018 Pulmonary nodules [R91.8] 08/02/2018 Impaired gait [R26.9] 08/02/2018 Left sided numbness [R20.0] 08/09/2018 Polypharmacy [Z79.899] 08/10/2018 Abnormal urinalysis [R82.90] 08/11/2018 08/30/2018 Tenderness over maxillary sinus [J34.89] 08/13/2018 08/18/2018 Altered mental status [R41.82] 08/29/2018 08/30/2018 Risk for falls [Z91.81] 08/29/2018 08/30/2018 Nicotine use disorder, F17.2 [F17.200] 08/30/2018 08/30/2018 AMS (altered mental status) [R41.82] 08/30/2018 Nicotine use disorder, F17.2 [F17.200] 08/30/2018 Hyperammonemia (HCC) [E72.20] 08/31/2018 Muscular deconditioning [R29.898] 08/31/2018 Dysphagia [R13.10] 08/31/2018 Type 2 diabetes mellitus without complication, *09/21/2018 Cortical age-related cataract, both eyes [H25.0*01/09/2019 Peripheral edema [R60.0] 03/21/2019 Nicotine use [Z72.0] 05/15/2019 DDD (degenerative disc disease), cervical [M50.*09/19/2019 MELITA (generalized anxiety disorder) [F41.1] 06/22/2022 Delirium, drug-induced [R41.0, T50.905A] 06/22/2022 Emphysema of lung (HCC) [J43.9] 06/22/2022 Recurrent falls [R29.6] 07/27/2022 Slurred speech [R47.81] 08/24/2022 Eustachian tube disorder, left [H69.92] 08/24/2022 Seasonal allergic rhinitis [J30.2] 08/24/2022 Former smoker [Z87.891] 11/27/2022 UTI (urinary tract infection) [N39.0] 01/18/2023 04/19/2023 Orthostatic hypotension [I95.1] 01/23/2023 Constipation [K59.00] 01/23/2023 Urinary retention [R33.9] 01/23/2023 Complicated grief [F43.21] 01/29/2023 Vertigo [R42] 01/29/2023 History of TIA (transient ischemic attack) [Z86*04/19/2023 Encounter Status:Closed by PEARL NARANJO on 05/10/24 ALLERGIES DATE TYPE / CODE NAME / CODE REACTION SEVERITY SOURCE 03/22/2025 DRUG INGREDI/18239220 3(SNOMED CT) BUPROPION OTHER: SEE C [facility] 04/11/2020 DRUG INGREDI/37223762 3(SNOMED CT) METFORMIN DIARRHEA [facility] 01/18/2020 DRUG INGREDI/00747613 3(SNOMED CT) TRAZODONE HIVES [facility] 08/20/2019 DRUG INGREDI/85094368 3(SNOMED CT) LATEX HIVES [facility] 04/08/2018 DRUG INGREDI/74680414 3(SNOMED CT) LEVOFLOXACIN HIVES [facility] 03/28/2018 DRUG INGREDI/25489713 3(SNOMED CT) NALBUPHINE HCL OTHER: SEE C [facility] 03/27/2018 DRUG INGREDI/[id number] 3(SNOMED CT) ONDANSETRON [facility] ENCOUNTERS ADMIT/DISCHARGE ACCOUNT NUMBER ADMITTING ENCOUNTER CLASS LOC ATION SOURCE 03/22/2025/ [id number] [facility] PAYERS ENCOUNTER GUARANTOR PAYER SUBSCRIBER SOURCE 03/22/2025 Primary Insuranc e:[facility] DUAL COMPLETE HMO POS SNPPolicy Number: [id number] Date:[id number] Name:Peg SOTOMARIELENA: [id number] [place], [place] [id number] [place] [address] 03/22/2025 Secondary Insurance:[facility] MEDICAIDPolicy Number: [id number] Date:[id number] Name:Nancy SOTOB: [id number] [place], [place] [id number] [place] [address]
[2025-04-06] VITALS (12 sets, daily range): BP systolic 91–125; BP diastolic 56–74; PULSE 60–65; RESP 11–18; TEMP 35.4–36.7; O2SAT 93–98; BMI 34.9; BMI 34.8; BMI 32.5
--- NOTE | 2025-04-06 17:21 | EKG12_ITS ---
Test Reason : ARREST Blood Pressure : */* mmHG Vent. Rate : 92 BPM Atrial Rate : * BPM P-R Int : * ms QRS Dur : 170 ms QT Int : 420 ms P-R-T Axes : * -81 67 degrees QTcB Int : 519 ms Atrial fibrillation WITH VENTRICULAR PAUSED COMPLEXES Right bundle branch block Left anterior fascicular block Bifascicular block Possible Lateral infarct , age undetermined Abnormal ECG When compared with ECG of 07-May-2025 16:50, Significant changes have occurred Confirmed by Pelon Valero ([id number]), story editor MAHESH VASQUEZ ([id number]) on 05/14/2025 1:09:17 PM Also confirmed by Pelon Valero ([id number]), story editor MAHESH VASQUEZ ([id number]) on 05/14/2025 1:09:54 PM Referred By: Confirmed By: Pelon Valero
--- NOTE | 2025-04-06 17:24 | CT_ITS ---
PROCEDURE: STROKE BRAIN/HEAD WITHOUT CONT 04/06/2025 REASON FOR EXAM: NEURO DEFICIT, ACUTE, STROKE SUSPECTED TECHNIQUE: Procedure Code: CTBR.ST Modality: CT Procedure: STROKE BRAIN/HEAD WITHOUT CONT Coronal and Sagittal reconstruction series were provided. One or more dose reduction techniques were used (e.g., Automated exposure control, adjustment of the mA and/or kV according to patient size, use of iterative reconstruction technique. COMPARISON: None available. FINDINGS: There is no extra-axial or intra-axial intracranial hemorrhage. No mass effect or midline shift is seen. Generalized intracranial volume loss and findings compatible with chronic microvascular white matter ischemia. There is normal manriquez-white matter differentiation. The posterior fossa is grossly unremarkable. The skull is unremarkable. Visualized paranasal sinuses are clear. The mastoid air cells show normal translucency. CT/STROKE Brain/Head without Cont IMPRESSION: 1. No intracranial hemorrhage. No mass effect or midline shift. 2. Chronic involutional and ischemic gliotic white matter changes. CT is insensitive for early evaluation of acute stroke. If there is clinical co ncern for acute ischemia, an MRI may be considered. Findings were verbally communicated with Dr. Gerardo on 04/06/2025 at 6:[address] Reading [facility]
--- NOTE | 2025-04-06 18:20 | CT_ITS ---
PROCEDURE: STROKE CTA HEAD AND NECK W/CON N/A REASON FOR EXAM: NEURO DEFICIT, ACUTE, STROKE SUSPECTED TECHNIQUE: Procedure Code: CTCTA.ST.HN Modality: CT Procedure: STROKE CTA HEAD AND NECK W/CON Multiplanar Sagittal and Coronal images were obtained. CONTRAST: 100 cc of Isovue 370. One or more dose reduction techniques were used (e.g., Automated exposure control, adjustment of the mA and/or kV according to patient size, use of iterative reconstruction technique). COMPARISON: Same-day CT head FINDINGS: Aortic Arch: Normal size and branching pattern. No significant atherosclerotic plaque. Brachiocephalic and Subclavians: Unremarkable RIGHT Carotid: Right CCA: Unremarkable. Right ICA: Mild calcified and soft plaque. Right ECA: Unremarkable. LEFT Carotid: Left CCA: Unremarkable. Left ICA: Unremarkable. Left ECA: Unremarkable. Vertebrals: Codominant. Arise from the subclavians. Both vertebrals form the basilar. RIGHT Vertebral: Unremarkable. LEFT Vertebral: Unremarkable. Anatomy: Unga of Ho anatomy is normal. Aneurysm or avm: No intracranial aneurysms or large vascular malformations are identified. Anterior cerebral arteries: Unremarkable: Middle cerebral arteries: Unremarkable. Basilar artery: Unremarkable. Posterior cerebral arteries: Unremarkable. Other major branches of the posterior circulation: Unremarkable. Major venous structures: Unremarkable. Other findings: Neck: No lymphadenopathy. Lungs: Lung apices are clear. Bones: Bones are unremarkable. CT/STROKE CTA Head AND Neck W/Con IMPRESSION: Unremarkable CT angio of the head and neck with no evidence of occlusion or hem odynamically significant stenosis. Reading [facility]
[2025-04-06 18:45] LABS: Hematocrit 33.9 % (37-47); Hemoglobin 11.3 g/dL (12.0-15.0); Immature Granulocytes Count 0.090 X10^3/uL (0.0-0.0); Mean Corp Hgb Conc 33.3 g/dL (32-36); Mean Corpuscular Volume 91.1 fL (81-99); Mean Platelet Vol. 10.2 fl (6.2-12.0); NRBC Flagged by Analyzer 0 % (0-5); Platelet Count 245 K/mm3 (150-450); RBC Distribution Width CV 15.4 % (11.6-14.6); RBC Distribution Width SD 51.3 fl (35.1-43.9); Red Blood Count 3.72 M/mm3 (4.2-5.4); White Blood Count 14.7 K/mm3 (4.4-11.0)
--- NOTE | 2025-04-06 18:57 | CM.ED ---
Social work Reason for referral: stroke alert SW responded to stroke alert and provided support to patient's sister, Debbie. Debbie recognized SW due to patient's past presentations to the ED and Debbie immediately began to cry. Debbie stepped out of patient's room, SW followed, and Debbie began to blame self for missing this stroke. Debbie stated being told it was too late for the medication that could help the stroke. SW provided supportive presence and active listening. Debbie stated feeling exhausted by patient's times in the hospital and discussed the toll this takes on Debbie; patient was in imaging during this conversation. SW got water for Debbie and stated willingness to check back in at a later point if needed. Debbie thanked JAYA for support. Melissa Bonds, MACHINE TOOL TECHNICIAN INSTRUCTOR, FILLING STATION LABORER
[2025-04-06 19:04] LABS: Anion Gap 12 (5-15); BUN 10 mg/dL (4-19); BUN/Creat Ratio 15.2 RATIO (10-20); Calcium,Total 8.7 mg/dL (7.6-11.0); Carbon Dioxide 19.6 mmol/L (21.0-32.0); Chloride 101 mmol/L (98-108); Estimated Creatinine Clearance 114.97 ml/min (50-250); Glucose 167 mg/dL (70-99); Potassium 4.1 mmol/L (3.3-5.1)
--- NOTE | 2025-04-06 19:08 | RAD_ITS ---
PROCEDURE: CHEST 1 VIEW 04/06/2025 REASON FOR EXAM: NEURO DEFICIT, ACUTE, STROKE SUSPECTED TECHNIQUE: Frontal view of the chest. COMPARISON: 02/16/2025 FINDINGS: Right chest wall dual lead ICD in appropriate positioning. Cardiomegaly. Shallow inspiration with associated bronchovascular crowding. No appreciable focal consolidation, pneumothorax or pleural effusion. Degenerative changes of the spine. Cholecystectomy surgical clips. RAD/Chest 1 View IMPRESSION: No evidence of acute cardiopulmonary disease. Reading Location: [id number]
[2025-04-06 19:45] LABS: Troponin T High Sensitivity 14 ng/L (<=14)
[2025-04-06] MEDS: 0.9% Normal Saline (1000mL) 1,000 ML 1000 ML IV (20:16)
[2025-04-06 20:30] LABS: Troponin T High Sens 2 HR 22 ng/L (<=14)
[2025-04-06 20:55] LABS: Carbamazepine (Tegretol) 6.5 ug/mL (4.0-12.0)
--- NOTE | 2025-04-06 21:02 | PCM.HP.STD ---
[facility] - General General Date of Admission: 04/06/25 Date of Service: 04/06/25 Chief Complaint: AMS and Slurred Speech. 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 Santoro of neurology, vertigo; on meclizine as needed, history of COPD, history of recurrent UTIs, history of psoriasis, GERD; on omeprazole, muscle spasms on as needed tizanidine and OA; with low back pain on ibuprofen 3 times daily as needed who presents to [facility] ER complaining of altered mental status and slurred speech. Ms. Vinson is not a reliable historian at this time deformations gathered from chart, medical staff and computer. According to the records the patient lives with her sister who suspected that she had a seizure this morning and had not been acting normal since that time. The sister also went on to state that she noticed the patient had a Left eye droop 2 days ago but did not seek medical attention at that time. In the ER she was noted to have Leukocytosis of 14.7 K present on admission with suspected recurrent UTI with CT scan of the brain without contrast that revealed no acute ICH, mass effect or midline shift with chronic involutional and ischemic gliotic white matter changes followed by CTA of the head and neck with IV contrast that revealed no evidence of occlusion or hemodynamically significant stenosis along with a CXR that showed no acute cardiopulmonary disease. The ER physician had a high event index of suspicion for possible underlying CVA with persistent slurred speech throughout the day and no further witnessed seizure activity. She was then admitted to the PCU under observation status for ongoing care for status expected to extend beyond 2 midnights. [facility] Medical History Anxiety COPD (chronic obstructive pulmonary disease) Debility Seizure Myalgia Low back pain Diabetes mellitus, type 2 Presence of cardiac pacemaker Sick sinus syndrome History of COPD History of diabetes mellitus Syncope Symptomatic bradycardia Hx of type 2 diabetes mellitus Epilepsy Palpitations Hyperammonemia Cerebrovascular disease Dorsalgia Neck pain Migraine headache without aura Polyneuropathy Generalized weakness General weakness Slurred speech Former smoker Asthma Seizures Multiple sclerosis Demyelinating disease of central nervous system Epilepsy Generalized weakness Recurrent falls Recurrent syncope Depression Migraines Multiple falls Gastroenteritis History of CVA (cerebrovascular accident) GERD (gastroesophageal reflux disease) Obesity Former tobacco use Seizure disorder Allergic rhinitis Chronic migraine Orthostasis HTN (hypertension) COVID-19 virus infection Bradycardia Psoriasis Hypercholesterolemia Home Medications ?Medication ?Instructions ?Recorded ?Last Taken ?Type insulin syr/ndl U100 half shirley 0.5 09/03/22 Unknown History mL 31 gauge x 5/16 (Droplet Insulin Syringe (half unit)) dextromethorphan 20 mg-quinidine 1 cap PO BID DEPRESSION 02/06/23 02/15/25 History 10 mg capsule (Nuedexta) nystatin 100,000 unit/gram topical 1 applic topical BID RASH 09/04/23 01/28/25 History powder (Nyamyc) Lactobacillus rhamnosus GG 10 1 cap PO DAILY recurrent uti 05/09/24 01/29/25 History billion cell capsule (Culturelle) ascorbic acid (vitamin C) 500 mg 500 mg PO QDAY see pcp 05/09/24 04/06/25 History tablet cranberry fruit 450 mg tablet 450 mg PO TID see pcp 05/09/24 01/29/25 History flash glucose scanning reader #1 ea 10/30/24 Unknown Rx (FreeStyle Es 2 [place]) flash glucose sensor (FreeStyle #3 ea 10/30/24 Unknown Rx Es 2 Sensor kit) handicap placard #1 ea 11/15/24 Unknown Rx mirtazapine 15 mg tablet 30 mg PO QHS sleep 12/14/24 01/28/25 History omeprazole 40 mg capsule,delayed 40 mg PO DAILY GERD #90 caps 01/03/25 01/29/25 Rx release diphenhydramine HCl 25 mg capsule 50 mg PO QHS sleep 01/19/25 02/19/25 History (Allergy (diphenhydramine)) melatonin 10 mg capsule 10 mg PO QHS sleep 01/19/25 01/28/25 History 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 sensor (FreeStyle #3 ea 02/15/25 Unknown Rx Es 3 Sensor device) 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,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,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 #1 ea 02/15/25 Unknown Rx (FreeStyle Es 3 [place]) buspirone 5 mg tablet 5 mg PO TID PRN anxiety #90 tabs 02/15/25 Unknown Rx cephalexin 250 mg capsule 250 mg PO QHS recurrent UTI #90 02/15/25 Unknown Rx caps insulin glargine 100 unit/mL (3 30 unit (0.3 mL) subcut QAM 02/15/25 02/15/25 Rx mL) subcutaneous pen diabetes #15 mL hydroxyzine HCl 25 mg tablet 50 mg PO QHS PRN anxiety 02/17/25 Unknown History ferrous gluconate 324 mg (37.5 mg 324 mg PO BIDLS iron supplement #0 02/20/25 02/19/25 Rx iron) tablet tabs cenobamate 200 mg tablet (Xcopri) 200 mg PO DAILY 30 days #30 tabs 03/01/25 Unknown Rx hydrocodone-acetaminophen 5-325mg 1 tab PO BID 7 days #14 tabs 03/01/25 Unknown Rx 5mg-325mg albuterol sulfate 2.5 mg/3 mL 2.5 mg (3 mL) inhalation Q2H PRN 03/02/25 Unknown Rx (0.083 %) solution for nebulization PRN Shortness Of Breath 30 days #360 mL albuterol sulfate 90 mcg/actuation 2 puff inhalation .[id number] Wheezing 03/02/25 Unknown Rx aerosol inhaler 30 days #18 grams aspirin 81 mg tablet,delayed 81 mg PO QDAY 03/08/25 Unknown History release (Adult Aspirin Regimen) atorvastatin 80 mg tablet 80 mg PO QHS cholesterol #90 tabs 03/08/25 Unknown Rx meclizine 25 mg tablet 25 mg PO DAILY PRN PRN vertigo #60 03/08/25 Unknown Rx tabs prednisone 10 mg tablets in a dose 10 mg PO DIRECTED #48 tabs 03/08/25 Unknown Rx pack tizanidine 4 mg tablet 4 mg PO TID PRN for muscle spasm 03/08/25 Unknown Rx #90 TABLETS carbamazepine 200 mg tablet 200 mg PO TID seizures #90 tabs 03/18/25 Unknown Rx (Tegretol) gabapentin 800 mg tablet 800 mg PO QHS #30 tabs 03/18/25 Unknown Rx galcanezumab-gnlm 120 mg/mL 120 mg subcut QMONTH migraines #1 03/18/25 Unknown Rx subcutaneous pen injector mL (Emgality Pen) ibuprofen 600 mg tablet 600 mg PO TID PRN headache/pain 03/18/25 Unknown Rx #90 tabs levocarnitine 330 mg tablet 330 mg PO BID #60 tabs 03/18/25 Unknown Rx promethazine 12.5 mg tablet 12.5 mg PO TID PRN nausea and 03/18/25 Unknown Rx vomiting #90 tabs ubrogepant 100 mg tablet (Ubrelvy) 100 mg PO .COMPLEX MIGRAINE #14 03/18/25 Unknown Rx tabs onabotulinumtoxinA 100 unit 200 unit IM ONCE Migraine headache 03/28/25 Unknown Rx solution for injection (Botox) w/o aura (ICD 10: G43.009) #2 ea topiramate 100 mg tablet 100 mg PO BID #60 tabs 03/28/25 Unknown Rx amoxicillin 875 mg-potassium 1 tab PO BID 10 days #20 tabs 03/29/25 Unknown Rx clavulanate 125 mg tablet codeine 10 mg-guaifenesin 100 mg/5 10 ml PO Q4-6H PRN cough #118 mL 03/29/25 Unknown Rx mL oral liquid gabapentin 400 mg capsule 400 mg PO BID polyneuropathy 04/06/25 Unknown History Allergy/AdvReac Type Severity Reaction Status Date / Time adhesive tape Allergy Intermediate Rash Verified 04/06/25 17:15 latex Allergy Rash Verified 04/06/25 17:15 levofloxacin (From Levaquin) Allergy Hives Verified 04/06/25 17:15 meloxicam Allergy dizzy Verified 04/06/25 17:15 ondansetron (From Zofran) Allergy Hives Verified 04/06/25 17:15 buprenorphine AdvReac Severe syncope Verified 04/06/25 17:15 pregabalin (From Lyrica) AdvReac Severe syncope Verified 04/06/25 17:15 nalbuphine (From Nubain) AdvReac Other Verified 04/06/25 17:15 Family History Father Hypertension Hyperlipidemia Asthma Colon cancer Mother Cancer lung Aunt Breast cancer Aunt Breast cancer Grandmother Cancer ovarian Grandfather Cancer prostate Grandmother Cancer Uncle Hypertension Aunt Hypertension Sister Hypertension Asthma Surgical History History of appendectomy Hx of tubal ligation Hx of tonsillectomy Hx of cholecystectomy Social History household members: other details: Baby sister. 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 Vital Signs Vital Signs Vital Signs: 04/06/25 17:14 04/06/25 17:24 04/06/25 18:26 Temperature 98.1 F Temperature Source Oral Pulse Rate 65 Respiratory Rate 12 Blood Pressure 114/67 Blood Pressure Mean 82 Pulse Ox 98 94 98 Oxygen Delivery Method Room Air Room Air Room Air 04/06/25 18:29 04/06/25 18:36 04/06/25 19:00 Temperature Temperature Source Pulse Rate 60 61 60 Respiratory Rate 13 12 18 Blood Pressure 125/74 H 101/56 L 91/60 Blood Pressure Mean 91 71 70 Pulse Ox 97 94 93 Oxygen Delivery Method Room Air Room Air Room Air 04/06/25 19:18 04/06/25 20:00 Temperature Temperature Source Pulse Rate 60 60 Respiratory Rate 11 L 16 Blood Pressure 95/59 L 109/68 Blood Pressure Mean 71 81 Pulse Ox 93 95 Oxygen Delivery Method Room Air Room Air Weight Weight: 216 lb Body Mass Index (BMI) 34.8 Physical Exam Const Constitutional Narrative: Patient is alert but confused. Orientation / Consciousness: confused HEENT normocephalic, head/scalp atraumatic and hearing grossly normal bilaterally HEENT Narrative: Mucous membranes dry. Eyes PERRL, EOMs intact bilaterally and conjunctivae normal Neck no lymphadenopathy, supple and no JVD Resp normal respiratory effort, no retractions, no use of accessory muscles and clear to auscultation bilaterally Cardio regular rate and regular rhythm GI normal to inspection, nondistended, normoactive bowel sounds, soft to palpation, non-tender and non-distended GI Narrative: Obese. Extremity normal to inspection, full ROM and no clubbing, cyanosis or edema Skin Skin Narrative: Patient is evidence of rash, abscess, wounds or jaundice. Neuro Neuro Narrative: Patient has slurred speech and is alert but confused. She is moving all 4 extremities. Sensorium / Orientation: awake, alert and oriented to person Psych affect normal Results Medical Records Data Attestation: I reviewed the patient's medical records Lab / Micro Data Attestation: I reviewed the patient's lab results. 04/06/25 18:20 04/06/25 18:20 Labs: Laboratory Results - last 24 hr 04/06/25 18:20: WBC 14.7 H, RBC 3.72 L, Hgb 11.3 L, Hct 33.9 L, MCV 91.1, MCH 30.4, MCHC 33.3, RDW Std Deviation 51.3 H, RDW Coeff of He 15.4 H, Plt Count 245, MPV 10.2, Immature Gran % (Auto) 0.600, Neut % (Auto) 84.3 H, Lymph % (Auto) 9.0 L, [place] % (Auto) 5.6, Eos % (Auto) 0.3, Baso % (Auto) 0.2, Absolute Neuts (auto) 12.4 H, Absolute Lymphs (auto) 1.32, Nucleated RBC % 0, Sodium 132 L, Potassium 4.1, Chloride 101, Carbon Dioxide 19.6 L, Anion Gap 12, BUN 10, Creatinine 0.63 L, Estim Creat Clear Calc 114.97, Est GFR (MDRD) Non-Af 103, BUN/Creatinine Ratio 15.2, Glucose 167 H, Calcium 8.7, Troponin T High Sens 14 D 04/06/25 19:42: Troponin T Hi Sens 2 Hr 22 H 04/06/25 20:17: Lactic Acid < 1.0, Carbamazepine 6.5 Imaging Radiology Impression Brain CT 04/06/25 17:24 IMPRESSION: 1. No intracranial hemorrhage. No mass effect or midline shift. 2. Chronic involutional and ischemic gliotic white matter changes. CT is insensitive for early evaluation of acute stroke. If there is clinical concern for acute ischemia, an MRI may be considered. Findings were verbally communicated with Dr. Gerardo on 04/06/2025 at 6:42 p.m. EST. Reading Location: [facility] Head/Neck CTA 04/06/25 18:20 IMPRESSION: Unremarkable CT angio of the head and neck with no evidence of occlusion or hemodynamically significant stenosis. Reading Location: [facility] Chest X-Ray 04/06/25 19:08 IMPRESSION: No evidence of acute cardiopulmonary disease. Reading Location: [facility] Assessment & Plan Assessment/Plan (1) Altered mental status: QUALIFIERS: Altered mental status type: unspecified Qualified Code(s): R41.82 - Altered mental status, unspecified (2) Slurred speech: (3) History of CVA (cerebrovascular accident): (4) History of seizure disorder: (5) Demyelinating disease of central nervous system: (6) Leukocytosis: QUALIFIERS: Leukocytosis type: unspecified Qualified Code(s): D72.829 - Elevated white blood cell count, unspecified (7) Obesity (BMI 30.0-34.9): PLAN: Plan 1. Altered Mental Status and Slurred Speech suspicious for CVA - Admit to PCU under observation status. Continue BASA and statin. Clopidogrel and Brilinta are incompatible with cenobamate that cannot be held. Check MRI of the brain to confirm suspicion of CVA. Check echocardiogram to evaluate LVEF. Check TSH, B12, Folate, HgbA1c, Lipid Profile, LYSSA and UDS. 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 Finally, we will consult [facility] to see this patient on-rounds in the AM for further recommendations with help appreciated in advance. 2. History of CVA (~2022); with residual Left-sided weakness complicating #1 - Noted. 3. History of concussion (1990) with subsequent seizure disorder; on cenobamate, topiramate twice daily and carbamazepine 3 times daily compounding #1 & #2 - Maintain home regimen plus give prn IV lorazepam for breakthrough seizure activity. 4. 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 5. Leukocytosis of 14.7K present on admission with a history of recurrent UTI's - UA C&S pending at this time with patient started on empiric IV ceftriaxone. 6. Obesity (class I); with BMI of 34.9 this admission adding to the burden of disease outlined from #1 - #5 - Weight loss will be recommended when confusion resolves. Check TSH. This complicates her case and may hamper recovery. 7. DM-2; unknown control on insulin glargine 30 units subcu daily - Keep NPO for now until swallow evaluation completed. Check FSBS q. 6 hours plus lowest intensity SSI. Continue insulin glargine at 20U sq daily in an effort to minimize risk of iatrogenic hypoglycemia. 8. Hyperlipidemia; on atorvastatin - Maintain statin and check Lipid Profile. 9. History of SSS; s/p PPM - Noted. 10. Pseudobulbar affect - Noted. 11. Neuropathy; on gabapentin BID - Resume gabapentin as previous. 12. Depression; on mirtazapine plus Nuedexta twice daily plus as needed hydroxyzine - Continue mirtazapine and Nudexta as before but hold hydroxyzine. 13. Chronic migraine headaches; on ubrogepant, galcanezumab monthly injections plus Botox injections done by Dr. Santoro of neurology - Stable with no complaints of headache at this time. 14. Vertigo; on meclizine as needed - Give meclizine prn as before. 15. History of COPD - Stable with no evidence of acute flare at this time. Give nebulizers prn. 16. History of psoriasis - Stable. 17. GERD; on omeprazole - Maintain PPI. 18. Muscle spasms on as needed tizanidine - Current therapy to continue as previous. 19. OA; with low back pain on ibuprofen 3 times daily as needed - Hold ibuprofen for acetaminophen as outlined in #1. 20. DVT prophylaxis - Enoxaparin 40 mg sq daily plus SCD's. Total time: Approximately (but not less than) 75 minutes. Charges/Coding Visit Charges OBSV E&M: 62246 Observ/hosp same date L2
--- NOTE | 2025-04-06 21:07 | CASEMGMT ---
Care Management Face to Face with patient for initial transition planning/care coordination assessment in the ED. This quality analyst/technical writer introduced self and role at [facility]. Patient alert and oriented. Patient willing to participate in assessment and is able to answer all questions appropriately. Patient's sisterDebbie, at bedside. Care providers, pharmacy, and demographics verified. Admitting Diagnosis: altered mental status, slurred speech, hx of CVA Other diagnosis history: hyperlipidemia, DM-2, seizure disorder, neuropathy, chronic migraine headaches, vertigo, recurrent UTIs, GERD, PCP: [facility] Specialists: Maude, neurology. [facility], cardiology. [facility]erred [facility]acy: [facility] Insurance: [facility] Medicare Dual (primary). [facility] Community Plan (secondary). Prescription Benefit: yes Living Will/HPOA: Debbie amaral (on chart) LNOK: Debbie flor and Enriqueta Mcguirelaceybrittney Living Arrangements: patient lives with Debbie in a 2 story apartment with 2 steps and railing to enter. Bed and bathroom on first floor. Patient requires help with some ADLs. Transportation: Debbie amaral DME: tub bench, bedside commode, walker, rollator, medical alert, wheelchair, grab bars, glucometer with supplies. HHC: has had HHC in the past, but not sure which agency. Patient denies HHC due to messy house -- attends outpatient therapy through [facility]: [facility] and [facility] Resources: case management through [facility] waiver program (Leticia, ). compliance aide. Behavioral Health History: depression Patient goals: Patient wishes to discharge home, denies need for home health care at this time. SW inquired as to why HHC had been denied frequently and patient tearfully stated because our house is messy. Patient denies any further needs or concerns at this time. Disposition Plan: admission to acute; RN CM/SW to follow for discharge planning needs that may arise. Melissa Bonds, EXTENSION WORKER, INSIDE SALES REPRESENTATIVE
[2025-04-06 21:37] LABS: Mucous, Urine 0 SEEN /hpf (<or=2+)
[2025-04-06 21:47] LABS: Color, Urine Yellow (Yellow); Glucose, Dipstick Normal (Normal); Ketone-Dipstick Negative (Negative); Leukocyte Esterase-Dipstick 100 /ul (Negative); Nitrite-Dipstick Negative (Negative); Occult Blood-Urine Negative /ul (Negative); Protein-Dipstick 15 mg/dl (Negative); Specific Gravity, Urine 1.005 (1.002-1.030); Urine Bilirubin Dipstick Negative (Negative)
[2025-04-06 21:58] LABS: Prothrombin Time (Protime)PT. 13.7 SECONDS (11.7-14.9)
[2025-04-06 21:59] LABS: Partial Thromboplast Time 30.8 Seconds (24.1-36.2)
[2025-04-06 22:15] LABS: Barbiturate Urine NEGATIVE (< 200 ng/mL); Benzodiazepine Urine NEGATIVE (< 200 ng/mL); PCP Urine NEGATIVE (< 25 ng/mL); THC Urine NEGATIVE (< 50 ng/mL)
[2025-04-06 22:54] LABS: Red Blood Cells-Urine 0-5 SEEN /hpf (0-5)
[2025-04-06 22:55] LABS: Squamous Epithelial Cells - UA 10-25 SEEN /hpf (5-10)
[2025-04-06] MEDS: 0.9% Normal Saline (1000mL) 1,000 ML 70 ML IV (22:55)
[2025-04-06] MEDS: MELATONIN 10 MG TABLET PO (23:09)
[2025-04-06 23:15] LABS: Troponin T High Sens 4 HR 16 ng/L (<=14)
[2025-04-06 23:30] LABS: Alcohol, Blood (Medical)-Serum < 10.1 mg/dL (<=10.0)
[2025-04-06 23:40] LABS: Allen Test Positive; Base Excess -2 mmol/L (-2 to +2); PO2 75 mmHG (75-100); SITE R Radial; SO2 95 % (95-99)
[2025-04-07] VITALS (7 sets, daily range): BP systolic 109–133; BP diastolic 67–78; PULSE 60–79; RESP 16; TEMP 35.6–36.7; O2SAT 92–97; BMI 32.5
--- NOTE | 2025-04-07 01:32 | EDS_ITS ---
HPI History of Present Illness Chief Complaint: Neuro S/Sx Narrative Narrative: Patient is a 59-year-old female presenting to the emergency department for left- sided facial droop, right sided sensation deficits and slurred speech. Patient has an extensive past medical history as below including migraines, epilepsy, CVA. Patient lives at home with sister who helps care for her. Sister states that she noticed 2 days ago that she had left sided eyelid drooping. She states that this morning the patient was acting normal around 10 AM when they were eating breakfast. She states when she went and checked on her next which was around 1030 she had the above symptoms. She states she initially thought it was an absence seizure and she was postictal however she was not acting like herself. She has been compliant with all her medications including her seizure medications. Last known well 10 AM. Not on any OAC. No fevers, headache, neck or back pain. Patient is a very poor historian. [facility] Medical History Slurred speech Anxiety COPD (chronic obstructive pulmonary disease) Debility Seizure Myalgia Low back pain Diabetes mellitus, type 2 Presence of cardiac pacemaker Sick sinus syndrome History of COPD History of diabetes mellitus Syncope Symptomatic bradycardia Hx of type 2 diabetes mellitus Epilepsy Palpitations Hyperammonemia Cerebrovascular disease Dorsalgia Neck pain Migraine headache without aura Polyneuropathy Generalized weakness General weakness Former smoker Asthma Seizures Multiple sclerosis Demyelinating disease of central nervous system Epilepsy Generalized weakness Recurrent falls Recurrent syncope Depression Migraines Multiple falls Gastroenteritis History of CVA (cerebrovascular accident) GERD (gastroesophageal reflux disease) Obesity Former tobacco use Seizure disorder Allergic rhinitis Chronic migraine Orthostasis HTN (hypertension) COVID-19 virus infection Bradycardia Psoriasis Hypercholesterolemia Home Medications ?Medication ?Instructions ?Recorded ?Last Taken ?Type insulin syr/ndl U100 half shirley 0.5 09/03/22 Unknown H istory mL 31 gauge x 5/16 (Droplet Insulin Syringe (half unit)) dextromethorphan 20 mg-quinidine 1 cap PO BID DEPRESSI ON 02/06/23 04/05/25 History 10 mg capsule (Nuedexta) nystatin 100,000 unit/gram topical 1 applic topical BI D RASH 09/04/23 04/05/25 History powder (Nyamyc) Lactobacillus rhamnosus GG 10 1 cap PO DAILY recurrent uti 05/09/24 04/05/25 History billion cell capsule (Culturelle) ascorbic acid (vitamin C) 500 mg 500 mg PO QDAY see pc p 05/09/24 04/06/25 History tablet cranberry fruit 450 mg tablet 450 mg PO TID see pcp 04/05/25 History flash glucose scanning reader #1 ea 10/30/24 Unknown R x (FreeStyle Es 2 Hamel) flash glucose sensor (FreeStyle #3 ea 10/30/24 Unknown Rx Es 2 Sensor kit) handicap placard #1 ea 11/15/24 Unknown Rx mirtazapine 15 mg tablet 30 mg PO QHS sleep 12/14/24 04/05/25 History omeprazole 40 mg capsule,delayed 40 mg PO DAILY GERD # 90 caps 01/03/25 04/05/25 Rx release diphenhydramine HCl 25 mg capsule 50 mg PO QHS sleep 0 01/19/25 04/05/25 History (Allergy (diphenhydramine)) melatonin 10 mg capsule 10 mg PO QHS sleep 01/19/25 04/05/25 History 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 sensor (FreeStyle #3 ea 02/15/25 Unknown Rx Es 3 Sensor device) 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,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,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 ea 02/15/25 Unknown Rx (FreeStyle Es 3 Hamel) buspirone 5 mg tablet 5 mg PO TID PRN anxiety #90 tabs 02/15/25 04/05/25 Rx cephalexin 250 mg capsule 250 mg PO QHS recurrent UTI #90 02/15/25 Unknown Rx caps insulin glargine 100 unit/mL (3 30 unit (0.3 mL) subcu t QAM 02/15/25 02/15/25 Rx mL) subcutaneous pen diabetes #15 mL hydroxyzine HCl 25 mg tablet 50 mg PO QHS PRN anxiety 02/17/25 04/05/25 History ferrous gluconate 324 mg (37.5 mg 324 mg PO BIDLS iron supplement #0 02/20/25 04/05/25 Rx iron) tablet tabs cenobamate 200 mg tablet (Xcopri) 200 mg PO DAILY 30 d ays #30 tabs 03/01/25 04/05/25 Rx hydrocodone-acetaminophen 5-325mg 1 tab PO BID 7 days #14 tabs 03/01/25 Unknown Rx 5mg-325mg albuterol sulfate 2.5 mg/3 mL 2.5 mg (3 mL) inhalation Q2H PRN 03/02/25 Unknown Rx (0.083 %) solution for nebulization PRN Shortness Of B reath 30 days #360 mL albuterol sulfate 90 mcg/actuation 2 puff inhalation . q6prn Wheezing 03/02/25 Unknown Rx aerosol inhaler 30 days #18 grams aspirin 81 mg tablet,delayed 81 mg PO QDAY 03/08/25 History release (Adult Aspirin Regimen) atorvastatin 80 mg tablet 80 mg PO QHS cholesterol #90 tabs 03/08/25 04/05/25 Rx meclizine 25 mg tablet 25 mg PO DAILY PRN PRN verti go #60 03/08/25 04/05/25 Rx tabs prednisone 10 mg tablets in a dose 10 mg PO DIRECTE D #48 tabs 03/08/25 Unknown Rx pack tizanidine 4 mg tablet 4 mg PO TID PRN for muscle s pasm 03/08/25 Unknown Rx #90 TABLETS carbamazepine 200 mg tablet 200 mg PO TID seizures #90 tabs 03/18/25 04/05/25 Rx (Tegretol) gabapentin 800 mg tablet 800 mg PO QHS #30 tabs 03/1804/05/25 Rx galcanezumab-gnlm 120 mg/mL 120 mg subcut QMONTH migra kendal #1 03/18/25 Unknown Rx subcutaneous pen injector mL (Emgality Pen) ibuprofen 600 mg tablet 600 mg PO TID PRN headache/p ain 03/18/25 04/05/25 Rx #90 tabs levocarnitine 330 mg tablet 330 mg PO BID #60 tabs 02/0204/05/25 Rx promethazine 12.5 mg tablet 12.5 mg PO TID PRN nausea and 03/18/25 Unknown Rx vomiting #90 tabs ubrogepant 100 mg tablet (Ubrelvy) 100 mg PO .COMPLEX MIGRAINE #14 03/18/25 Unknown Rx tabs onabotulinumtoxinA 100 unit 200 unit IM ONCE Migraine headache 03/28/25 Unknown Rx solution for injection (Botox) w/o aura (ICD 10: G43.0 09) #2 ea topiramate 100 mg tablet 100 mg PO BID #60 tabs 03/28 Unknown Rx amoxicillin 875 mg-potassium 1 tab PO BID 10 days #20 tabs 03/29/25 Unknown Rx clavulanate 125 mg tablet codeine 10 mg-guaifenesin 100 mg/5 10 ml PO Q4-6H PRN cough #118 mL 03/29/25 Unknown Rx mL oral liquid gabapentin 400 mg capsule 400 mg PO BID polyneuropathy 04/06/25 04/05/25 History Allergy/AdvReac Type Severity Reaction Status Date / Time adhesive tape Allergy Intermediate Rash Verified 04/06/25 17:15 latex Allergy Rash Verified 04/06/25 17:15 levofloxacin (From Levaquin) Allergy Hives Verified 04/06/25 17:15 meloxicam Allergy dizzy Verified 04/06/25 17:15 ondansetron (From Zofran) Allergy Hives Verified 04/06/25 17:15 buprenorphine AdvReac Severe syncope Verified 04/06/25 17:15 pregabalin (From Lyrica) AdvReac Severe syncope Verified 04/06/25 17:15 nalbuphine (From Nubain) AdvReac Other Verified 04/06/25 17:15 Family History Father Hypertension Hyperlipidemia Asthma Colon cancer Mother Cancer lung Aunt Breast cancer Aunt Breast cancer Grandmother Cancer ovarian Grandfather Cancer prostate Grandmother Cancer Uncle Hypertension Aunt Hypertension Sister Hypertension Asthma Surgical History History of appendectomy Hx of tubal ligation Hx of tonsillectomy Hx of cholecystectomy Social History household members: other details: Baby sister. 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 No acute distress HEENT: Head is normocephalic and atraumatic, sinuses nontender, pupils equal round and reactive. Nares are patent. Oropharynx and throat exams normal. Neck: Supple without lymphadenopathy nontender Cardiovascular: Regular rate and rhythm, no murmurs. No rubs or gallops. Normal S1 and S2 Respiratory: Clear to auscultation bilaterally. No wheezes, rales, rhonchi Abdominal: Soft and nontender. Normal bowel sounds. No guarding or rebound. Nonsurgical abdomen Extremities: No tenderness. No bruising. Normal range of motion. Normal sensation. Skin: No rash or redness. The rest of the physical exam is unremarkable Const Vital Signs: 04/06/25 17:14 04/06/25 17:24 04/06/25 18:26 Temperature 98.1 F Temperature Source Oral Pulse Rate 65 Respiratory Rate 12 Blood Pressure 114/67 Blood Pressure Mean 82 Pulse Ox 98 94 98 Oxygen Delivery Method Room Air Room Air Room Air 04/06/25 18:29 04/06/25 18:36 04/06/25 19:00 Temperature Temperature Source Pulse Rate 60 61 60 Respiratory Rate 13 12 18 Blood Pressure 125/74 H 101/56 L 91/60 Blood Pressure Mean 91 71 70 Pulse Ox 97 94 93 Oxygen Delivery Method Room Air Room Air Room Air 04/06/25 19:18 04/06/25 20:00 04/06/25 20:18 Temperature Temperature Source Pulse Rate 60 60 60 Respiratory Rate 11 L 16 14 Blood Pressure 95/59 L 109/68 106/62 Blood Pressure Mean 71 81 76 Pulse Ox 93 95 93 Oxygen Delivery Method Room Air Room Air Room Air 04/06/25 21:00 04/06/25 21:04 Temperature 98.1 F Temperature Source Pulse Rate 60 60 Respiratory Rate 15 15 Blood Pressure 111/73 111/73 Blood Pressure Mean 85 85 Pulse Ox 94 95 Oxygen Delivery Method Room Air MDM MDM MDM Narrative Medical decision making narrative: Patient is a 59-year-old female presenting to the emergency department for possi ble stroke. Patient was seen and examined. Vitals are stable. Patient resting bed comfortably no acute distress. Differential includes but is not limited to: Ischemic versus hemorrhagic stroke, seizures, infection Discussion with sister at bedside, last known well of 10 AM. Not on any oral anticoagulation. At this point we are out of the time for thrombolytics. NIH of 5. CT of the brain and CTA of the head and neck were ordered and stroke team was called however. CT brain shows no acute intracranial hemorrhage. No mass effect or midline shift. CTA is unremarkable for LVO. CBC with mild leukocytosis of 14.7 and anemia of 11.3. BMP with mild hyponatremia of 132 and bicarb at 19.6 otherwise no significant normalities. Lactic within normal limits. Initial troponin of 14, reflex of 22. TSH within normal limits. Seizure medication levels were obtained. Chest x-ray reviewed myself. No acute radiographic abnormalities noted. Radiology in agreement. Patient is not a candidate for TNK due to outside of the window and no LVO noted for thrombectomy intervention. Patient will be medically managed at this time. With a normal lactate I do not think this is secondary to seizures. She has had no fevers, headache, nuchal rigidity I do not think this is meningitis or encephalitis. Given the patient's leukocytosis urinalysis was added on to evaluate for any UTI. Discussed admission with patient and family at bedside. Admitted to Dr. Yap for further management Clinical impression Stroke like symptoms leukocytosis History & Record Review Discussion w/independent historian: Patient and Family Lab Data Attestation: I reviewed the patient's lab results. Labs: Laboratory Results - last 24 hr 04/06/25 04/06/25 04/06/25 18:20 19:42 20:17 WBC 14.7 H RBC 3.72 L Hgb 11.3 L Hct 33.9 L MCV 91.1 MCH 30.4 MCHC 33.3 RDW Std Deviation 51.3 H RDW Coeff of He 15.4 H Plt Count 245 MPV 10.2 Immature Gran % (Auto) 0.600 Neut % (Auto) 84.3 H Lymph % (Auto) 9.0 L Gordon % (Auto) 5.6 Eos % (Auto) 0.3 Baso % (Auto) 0.2 Absolute Neuts (auto) 12.4 H Absolute Lymphs (auto) 1.32 Nucleated RBC % 0 PT 13.7 INR 1.0 APTT 30.8 Sodium 132 L Potassium 4.1 Chloride 101 Carbon Dioxide 19.6 L Anion Gap 12 BUN 10 Creatinine 0.63 L Estim Creat Clear Calc 114.97 Est GFR (MDRD) Non-Af 103 BUN/Creatinine Ratio 15.2 Glucose 167 H Hemoglobin A1c 6.7 H Lactic Acid < 1.0 Calcium 8.7 Troponin T High Sens 14 D Troponin T Hi Sens 2 Hr 22 H TSH 1.880 Carbamazepine 6.5 Radiography Diagnostic Testing: Clinical Impression(s) from Imaging Studies Brain CT 04/06/25 17:24 IMPRESSION: 1. No intracranial hemorrhage. No mass effect or midline shift. 2. Chronic involutional and ischemic gliotic white matter changes. CT is insensitive for early evaluation of acute stroke. If there is clinical concern for acute ischemia, an MRI may be considered. Findings were verbally communicated with Dr. Gerardo on 04/06/2025 at 6:42 p.m. EST. Reading Location: [facility] Head/Neck CTA 04/06/25 18:20 IMPRESSION: Unremarkable CT angio of the head and neck with no evidence of occlusion or hemodynamically significant stenosis. Reading Location: [facility] Chest X-Ray 04/06/25 19:08 IMPRESSION: No evidence of acute cardiopulmonary disease. Reading Location: [facility] Discharge Plan Disposition Disposition: Acute Care Hospital [facility] Discharge Date/Time: 04/06/25 21:50 NIHSS NIHSS 1a. Level of Consciousness: 1 - Not alert; Arousable by minor stimuli to obey, answer & respond 1b. LOC Questions: 0 - Answers BOTH questions correctly 1c. LOC Commands: 0 - Performs BOTH tasks correctly 2. Best Gaze: 0 - Normal 3. Visual: 0 - No visual loss 4. Facial Palsy: 2 - Partial paralysis (total or near-total paralysis of lower face) 5a. Left Arm: 0 - No drift; arm holds 90 (or 45) degrees for full 10 seconds 5b. Right Arm: 0 - No drift; arm holds 90 (or 45) degrees for full 10 seconds 6a. Left Le - No drift; leg holds 30-degree position for full 5 seconds 6b. Right Le - No drift; leg holds 30-degree position for full 5 seconds 7. Limb Ataxia: 0 - Absent 8. Sensory: 1 - [id number] sensory loss; 9. Best Language: 0 - No aphasia; normal 10. Dysarthria: 1 = [id number] dysarthria; 11. Extinction and Inattention: 0 - No abnormality Total: 5 Stroke Questions Stroke Team Activated: Yes Reviewed Inclusion/Exclusion criteria: Yes IV Thrombolytic Administered: No
[2025-04-07 08:13] LABS: Cholesterol 133 mg/dL (<=200); Low Density Lipoprotein Calc. 45 mg/dL; Triglycerides 165 mg/dL; Very Low Density Lipoprotein 33 mg/dL (5-40); cholesterol:hdl ratio screen 2.43
[2025-04-07] MEDS: Aspirin E.C. 81 MG Tablet PO (08:54)
[2025-04-07] MEDS: Rizatriptan Benzoate 5 MG Tablet PO (09:04)
[2025-04-07] MEDS: Lactobacillis Acidophilus 1 CAP PO (09:07)
[2025-04-07] MEDS: FLU VACCINE 2025-26(6MOS UP) 45 MCG/0.5 ML SYRINGE IM (09:18)
[2025-04-07 10:14] LABS: Anion Gap 15 (5-15); BUN 7 mg/dL (4-19); BUN/Creat Ratio 12.6 RATIO (10-20); Calcium,Total 8.6 mg/dL (7.6-11.0); Carbon Dioxide 15.4 mmol/L (21.0-32.0); Chloride 105 mmol/L (98-108); Estimated Creatinine Clearance 124.78 ml/min (50-250); Glucose 94 mg/dL (70-99); Potassium 3.7 mmol/L (3.3-5.1)
[2025-04-07 10:25] LABS: Hematocrit 35.2 % (37-47); Hemoglobin 11.9 g/dL (12.0-15.0); Immature Granulocytes Count 0.030 X10^3/uL (0.0-0.0); Mean Corp Hgb Conc 33.8 g/dL (32-36); Mean Corpuscular Volume 92.4 fL (81-99); Mean Platelet Vol. 9.9 fl (6.2-12.0); NRBC Flagged by Analyzer 0 % (0-5); Platelet Count 232 K/mm3 (150-450); RBC Distribution Width CV 15.7 % (11.6-14.6); RBC Distribution Width SD 52.9 fl (35.1-43.9); Red Blood Count 3.81 M/mm3 (4.2-5.4); White Blood Count 9.4 K/mm3 (4.4-11.0)
[2025-04-07] MEDS: CENOBAMATE 200 MG TABLET PO (11:06)
[2025-04-07] MEDS: DEXTROMETHORPHAN HBR/QUINIDINE 1 EACH CAPSULE PO (11:07)
--- NOTE | 2025-04-07 11:51 | CON.PCM.NE_ITS ---
Assessment and Plan: Neuro Assessment/Plan FAM VINSON, is a 59 F with HLD, SSS s/p pacemaker, seizures on Tegretol, Xcopri, and Topamax, who is presenting with breakthrough seizure in the setting of UTI. Also reported few days of ptosis on the R side. In regard to seizures, breakthrough seizures in the setting of UTI. Recommend continuing home AED regimen, treatment of UTI. Follow up with outpatient neurology. left eyelid ptosis- unsure of etiology, no other symptom concerning for MG. No other findings to indicate sympathetic injury or ocumlomotor injury. CTA with no aneurym. Recommend obtaining MRI brain, if MRI brain is negative, would send for MG panel and follow up in Neurology clinic. I personally attended this patient and spent a total time of 45 minutes evaluating this patient including clinical assessment, review of chart, medical history imaging, and determining appropriate treatment and workup. 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 Santoro of neurology, vertigo; on meclizine as needed, COPD, UTIs, psoriasis, GERD, OA, Back pain who is admitted with altered metnal status and slurred speach. Information from chart review and patient. The patient lives with her sister who reports that she had a seizure yesterday morning and was confused after. The sister also stated that she noticed the patient had a Left eye droop 2 days ago but did not seek medical attention at that time. No double vision, no shortness of breath or weakness on exertion. No diurnal pattern. In the ER she was noted to have Leukocytosis of 14.7 K with suspected recurrent UTI started on Abx. CTH with no acute intracranial findings, but there is generalized volume loss. C TA with no LVO. CXR that showed no acute cardiopulmonary disease. PHYSICAL EXAM: Exam performed with help of the nurse/FLYNN present with patient on Tele site NEURO: AAOx3, follows commands, no aphasia/dysarthria. She has left eyelid droop on exam, she is unable to fully open her eye on the left side. Otherwise face is symmetric. Pupils equal and reactive to light. Intact facial sensation Tongue midline Head turning intact Sensation: intact to light touch all over Motor: All extremities antigravity Coordination: FTN intact bilaterally PFSH Medical History Slurred speech Anxiety COPD (chronic obstructive pulmonary disease) Debility Seizure Myalgia Low back pain Diabetes mellitus, type 2 Presence of cardiac pacemaker Sick sinus syndrome History of COPD History of diabetes mellitus Syncope Symptomatic bradycardia Hx of type 2 diabetes mellitus Epilepsy Palpitations Hyperammonemia Cerebrovascular disease Dorsalgia Neck pain Migraine headache without aura Polyneuropathy Generalized weakness General weakness Former smoker Asthma Seizures Multiple sclerosis Demyelinating disease of central nervous system Epilepsy Generalized weakness Recurrent falls Recurrent syncope Depression Migraines Multiple falls Gastroenteritis History of CVA (cerebrovascular accident) GERD (gastroesophageal reflux disease) Obesity Former tobacco use Seizure disorder Allergic rhinitis Chronic migraine Orthostasis HTN (hypertension) COVID-19 virus infection Bradycardia Psoriasis Hypercholesterolemia Home Medications ?Medication ?Instructions ?Recorded ?Last Taken ?Type insulin syr/ndl U100 half shirley 0.5 09/03/22 Unknown H istory mL 31 gauge x 5/16 (Droplet Insulin Syringe (half unit)) dextromethorphan 20 mg-quinidine 1 cap PO BID DEPRESSI ON 02/06/23 04/05/25 History 10 mg capsule (Nuedexta) nystatin 100,000 unit/gram topical 1 applic topical BI D RASH 09/04/23 04/05/25 History powder (Nyamyc) Lactobacillus rhamnosus GG 10 1 cap PO DAILY recurrent uti 05/09/24 04/05/25 History billion cell capsule (Culturelle) ascorbic acid (vitamin C) 500 mg 500 mg PO QDAY see pc p 05/09/24 04/06/25 History tablet cranberry fruit 450 mg tablet 450 mg PO TID see pcp 04/05/25 History flash glucose scanning reader #1 ea 10/30/24 Unknown R x (FreeStyle Es 2 Sartell) flash glucose sensor (FreeStyle #3 ea 10/30/24 Unknown Rx Es 2 Sensor kit) handicap placard #1 ea 11/15/24 Unknown Rx mirtazapine 15 mg tablet 30 mg PO QHS sleep 12/14/24 04/05/25 History omeprazole 40 mg capsule,delayed 40 mg PO DAILY GERD # 90 caps 01/03/25 04/05/25 Rx release diphenhydramine HCl 25 mg capsule 50 mg PO QHS sleep 0 01/19/25 04/05/25 History (Allergy (diphenhydramine)) melatonin 10 mg capsule 10 mg PO QHS sleep 01/19/25 04/05/25 History 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 sensor (FreeStyle #3 ea 02/15/25 Unknown Rx Es 3 Sensor device) 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,service administrator,cont #1 ea 02/15/25 Unknown Rx (FreeStyle Es 3 Sartell) buspirone 5 mg tablet 5 mg PO TID PRN anxiety #90 tabs 02/15/25 04/05/25 Rx cephalexin 250 mg capsule 250 mg PO QHS recurrent UTI #90 02/15/25 Unknown Rx caps insulin glargine 100 unit/mL (3 30 unit (0.3 mL) subcu t QAM 02/15/25 02/15/25 Rx mL) subcutaneous pen diabetes #15 mL hydroxyzine HCl 25 mg tablet 50 mg PO QHS PRN anxiety 02/17/25 04/05/25 History ferrous gluconate 324 mg (37.5 mg 324 mg PO BIDLS iron supplement #0 02/20/25 04/05/25 Rx iron) tablet tabs cenobamate 200 mg tablet (Xcopri) 200 mg PO DAILY 30 d ays #30 tabs 03/01/25 04/05/25 Rx hydrocodone-acetaminophen 5-325mg 1 tab PO BID 7 days #14 tabs 03/01/25 Unknown Rx 5mg-325mg albuterol sulfate 2.5 mg/3 mL 2.5 mg (3 mL) inhalation Q2H PRN 03/02/25 Unknown Rx (0.083 %) solution for nebulization PRN Shortness Of B reath 30 days #360 mL albuterol sulfate 90 mcg/actuation 2 puff inhalation . q6prn Wheezing 03/02/25 Unknown Rx aerosol inhaler 30 days #18 grams aspirin 81 mg tablet,delayed 81 mg PO QDAY 03/08/25 History release (Adult Aspirin Regimen) atorvastatin 80 mg tablet 80 mg PO QHS cholesterol #90 tabs 03/08/25 04/05/25 Rx meclizine 25 mg tablet 25 mg PO DAILY PRN PRN verti go #60 03/08/25 04/05/25 Rx tabs prednisone 10 mg tablets in a dose 10 mg PO DIRECTE D #48 tabs 03/08/25 Unknown Rx pack tizanidine 4 mg tablet 4 mg PO TID PRN for muscle s pasm 03/08/25 Unknown Rx #90 TABLETS carbamazepine 200 mg tablet 200 mg PO TID seizures #90 tabs 03/18/25 04/05/25 Rx (Tegretol) gabapentin 800 mg tablet 800 mg PO QHS #30 tabs 03/1804/05/25 Rx galcanezumab-gnlm 120 mg/mL 120 mg subcut QMONTH migra kendal #1 03/18/25 Unknown Rx subcutaneous pen injector mL (Emgality Pen) ibuprofen 600 mg tablet 600 mg PO TID PRN headache/p ain 03/18/25 04/05/25 Rx #90 tabs levocarnitine 330 mg tablet 330 mg PO BID #60 tabs 02/0204/05/25 Rx promethazine 12.5 mg tablet 12.5 mg PO TID PRN nausea and 03/18/25 Unknown Rx vomiting #90 tabs ubrogepant 100 mg tablet (Ubrelvy) 100 mg PO .COMPLEX MIGRAINE #14 03/18/25 Unknown Rx tabs onabotulinumtoxinA 100 unit 200 unit IM ONCE Migraine headache 03/28/25 Unknown Rx solution for injection (Botox) w/o aura (ICD 10: G43.0 09) #2 ea topiramate 100 mg tablet 100 mg PO BID #60 tabs 03/28 Unknown Rx amoxicillin 875 mg-potassium 1 tab PO BID 10 days #20 tabs 03/29/25 Unknown Rx clavulanate 125 mg tablet codeine 10 mg-guaifenesin 100 mg/5 10 ml PO Q4-6H PRN cough #118 mL 03/29/25 Unknown Rx mL oral liquid gabapentin 400 mg capsule 400 mg PO BID polyneuropathy 04/06/25 04/05/25 History Allergy/AdvReac Type Severity Reaction Status Date / Time adhesive tape Allergy Intermediate Rash Verified 04/06/25 17:15 latex Allergy Rash Verified 04/06/25 17:15 levofloxacin (From Levaquin) Allergy Hives Verified 04/06/25 17:15 meloxicam Allergy dizzy Verified 04/06/25 17:15 ondansetron (From Zofran) Allergy Hives Verified 04/06/25 17:15 buprenorphine AdvReac Severe syncope Verified 04/06/25 17:15 pregabalin (From Lyrica) AdvReac Severe syncope Verified 04/06/25 17:15 nalbuphine (From Nubain) AdvReac Other Verified 04/06/25 17:15 Family History Father Hypertension Hyperlipidemia Asthma Colon cancer Mother Cancer lung Aunt Breast cancer Aunt Breast cancer Grandmother Cancer ovarian Grandfather Cancer prostate Grandmother Cancer Uncle Hypertension Aunt Hypertension Sister Hypertension Asthma Surgical History History of appendectomy Hx of tubal ligation Hx of tonsillectomy Hx of cholecystectomy Social History household members: other details: Baby sister. 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 Smoking Status: Former smoker quit date: 07/12/21 pack-years: 10 alcohol intake: never substance use type: does not use do you feel safe at home: Yes Vital Signs Vital Signs Vital Signs: 04/06/25 17:14 04/06/25 17:24 04/06/25 18:26 Temperature 98.1 F Temperature Source Oral Pulse Rate 65 Respiratory Rate 12 Blood Pressure 114/67 Blood Pressure Mean 82 Blood Pressure Source Blood Pressure Position Blood Pressure Location Pulse Ox 98 94 98 Oxygen Delivery Method Room Air Room Air Room Air 04/06/25 18:29 04/06/25 18:36 04/06/25 19:00 Temperature Temperature Source Pulse Rate 60 61 60 Respiratory Rate 13 12 18 Blood Pressure 125/74 H 101/56 L 91/60 Blood Pressure Mean 91 71 70 Blood Pressure Source Blood Pressure Position Blood Pressure Location Pulse Ox 97 94 93 Oxygen Delivery Method Room Air Room Air Room Air 04/06/25 19:18 04/06/25 20:00 04/06/25 20:18 Temperature Temperature Source Pulse Rate 60 60 60 Respiratory Rate 11 L 16 14 Blood Pressure 95/59 L 109/68 106/62 Blood Pressure Mean 71 81 76 Blood Pressure Source Blood Pressure Position Blood Pressure Location Pulse Ox 93 95 93 Oxygen Delivery Method Room Air Room Air Room Air 04/06/25 21:00 04/06/25 21:04 04/06/25 22:20 Temperature 98.1 F 95.8 F L Temperature Source Temporal Pulse Rate 60 60 60 Respiratory Rate 15 15 11 L Blood Pressure 111/73 111/73 125/67 H Blood Pressure Mean 85 85 86 Blood Pressure Source Monitor Blood Pressure Position Semi-Fowlers Blood Pressure Location Left Arm Pulse Ox 94 95 96 Oxygen Delivery Method Room Air Room Air 04/07/25 00:05 04/07/25 04:00 04/07/25 06:47 Temperature 96.0 F L Temperature Source Temporal Pulse Rate 62 Respiratory Rate 16 Blood Pressure 109/67 Blood Pressure Mean 81 Blood Pressure Source Monitor Blood Pressure Position Sitting Blood Pressure Location Left Arm Pulse Ox 97 92 95 Oxygen Delivery Method Room Air Room Air Room Air 04/07/25 08:00 04/07/25 09:00 Temperature 97.7 F L Temperature Source Oral Pulse Rate 61 Respiratory Rate 16 Blood Pressure 119/74 Blood Pressure Mean 89 Blood Pressure Source Monitor Blood Pressure Position Semi-Fowlers Blood Pressure Location Left Arm Pulse Ox 97 97 Oxygen Delivery Method Room Air Weight Weight: 91.5 kg Body Mass Index (BMI) 32.5 EEG Results Procedure Details EEG Procedure Details: FAM VINSON is a 59 year old F with a past medical history of , who presents for evaluation of Electroencephalogram on DATE at TIME Lab / Micro Data 04/07/25 10:20 04/07/25 06:59 Labs: Laboratory Results - last 24 hr 04/06/25 18:20: WBC 14.7 H, RBC 3.72 L, Hgb 11.3 L, Hct 33.9 L, MCV 91.1, MCH 30.4, MCHC 33.3, RDW Std Deviation 51.3 H, RDW Coeff of He 15.4 H, Plt Count 245, MPV 10.2, Immature Gran % (Auto) 0.600, Neut % (Auto) 84.3 H, Lymph % (Auto) 9.0 L, Granite % (Auto) 5.6, Eos % (Auto) 0.3, Baso % (Auto) 0.2, Absolute Neuts (auto) 12.4 H, Absolute Lymphs (auto) 1.32, Nucleated RBC % 0, PT 13.7, INR 1.0, APTT 30.8, Sodium 132 L, Potassium 4.1, Chloride 101, Carbon Dioxide 19.6 L, Anion Gap 12, BUN 10, Creatinine 0.63 L, Estim Creat Clear Calc 114.97, Est GFR (MDRD) Non-Af 103, BUN/Creatinine Ratio 15.2, Glucose 167 H, Hemoglobin A1c 6.7 H, Calcium 8.7, Troponin T High Sens 14 D 04/06/25 19:42: Troponin T Hi Sens 2 Hr 22 H, TSH 1.880 04/06/25 20:17: Lactic Acid < 1.0, Carbamazepine 6.5 04/06/25 21:30: Urine Color Yellow, Urine Clarity Clear, Urine pH 7.0, Ur Specific [place] 1.005, Urine Protein 15 H, Urine Glucose (UA) Normal, Urine Ketones Negative, Urine Occult Blood Negative, Urine Nitrite Negative, Urine Bilirubin Negative, Urine Urobilinogen Normal, Ur Leukocyte Esterase 100 H, Urine RBC 0-5 SEEN, Urine WBC 50-100 SEEN, Ur Squamous Epith Cells 10-25 SEEN, Urine Bacteria 1+, Urine Mucus 0 SEEN, Urine Opiates Screen PRESUMPTIVE POSITIVE, U Buprenorphine Qual NEGATIVE, Ur Oxycodone Screen NEGATIVE, Urine Methadone Screen NEGATIVE, Urine Fentanyl Screen NEGATIVE, Ur Barbiturates Screen NEGATIVE, Ur Phencyclidine Scrn NEGATIVE, Ur Amphetamines Screen NEGATIVE, U Benzodiazepines Scrn NEGATIVE, Urine Cocaine Screen NEGATIVE, U Cannabinoids Screen NEGATIVE 04/06/25 22:30: Troponin T Hi Sens 4Hr 16 H, Ethyl Alcohol < 10.1 04/07/25 05:49: POC Glucose 95 04/07/25 06:59: Sodium 135, Potassium 3.7, Chloride 105, Carbon Dioxide 15.4 L, Anion Gap 15, BUN 7, Creatinine 0.56 L, Estim Creat Clear Calc 124.78, Est GFR (MDRD) Non-Af 106, BUN/Creatinine Ratio 12.6, Glucose 94, Calcium 8.6, Triglycerides 165, Cholesterol 133, LDL Cholesterol, Calc 45, VLDL Cholesterol 33, HDL Cholesterol 55, Cholesterol/HDL Ratio 2.43 04/07/25 10:20: WBC 9.4, RBC 3.81 L, Hgb 11.9 L, Hct 35.2 L, MCV 92.4, MCH 31.2, MCHC 33.8, RDW Std Deviation 52.9 H, RDW Coeff of He 15.7 H, Plt Count 232, MPV 9.9, Immature Gran % (Auto) 0.300, Neut % (Auto) 73.9 H, Lymph % (Auto) 17.9 L, Granite % (Auto) 5.4, Eos % (Auto) 2.3, Baso % (Auto) 0.2, Absolute Neuts (auto) 6.9, Absolute Lymphs (auto) 1.68, Nucleated RBC % 0 ABG Data ABG results: ABG 04/06/25 23:37 Specimen Type ART Sample Site R Radial pH 7.39 Bicarbonate Actual 22.6 Total CO2 24 Base Excess -2 O2 Saturation 95 ABG pCO2 37.6 ABG pO2 75 Shawn Test Positive O2 Delivery Device Room Air Vent Mode Not entered Imaging Radiology Impression Brain CT 04/06/25 17:24 IMPRESSION: 1. No intracranial hemorrhage. No mass effect or midline shift. 2. Chronic involutional and ischemic gliotic white matter changes. CT is insensitive for early evaluation of acute stroke. If there is clinical concern for acute ischemia, an MRI may be considered. Findings were verbally communicated with Dr. Gerardo on 04/06/2025 at 6:42 p.m. EST. Reading Location: [facility] Head/Neck CTA 04/06/25 18:20 IMPRESSION: Unremarkable CT angio of the head and neck with no evidence of occlusion or hemodynamically significant stenosis. Reading Location: [facility] Chest X-Ray 04/06/25 19:08 IMPRESSION: No evidence of acute cardiopulmonary disease. Reading Location: [facility] Active Medications Active Medications Active Medications: Current Medications Generic Name Dose Route Start Last Admin Trade Name Freq PRN Reason Stop Dose Admin Acetaminophen 650 mg 04/06/25 22:08 Acetaminophen 325 Mg Tablet PO Q6H PRN PRN Pain 1-10 or Fever Albuterol Sulfate 2.5 mg 04/06/25 22:08 Albuterol 2.5 Mg/3 Ml Vial.Neb. INHALATION Q2H PRN PRN SHORTNESS OF BREATH Alprazolam 0.5 mg 04/07/25 07:00 Alprazolam 0.5 Mg Tablet PO X1 PRN prior to MRI Ascorbic Acid 500 mg 04/07/25 10:00 04/07/25 09:08 Ascorbic Acid 500 Mg Tablet PO 500 mg DAILY ELICIA Administration Aspirin 81 mg 04/07/25 08:00 04/07/25 08:54 Aspirin E.C. 81 Mg Tablet PO 81 mg BREAKFAST ELICIA Administration Atorvastatin Calcium 80 mg 04/06/25 22:08 04/06/25 23:09 Atorvastatin Calcium 80 Mg Tablet PO 80 mg QHS ELICIA Administration Buspirone HCl 5 mg 04/06/25 22:08 Buspirone 5 Mg Tablet PO TID PRN PRN ANXIETY Carbamazepine 200 mg 04/06/25 22:08 04/07/25 05:14 Carbamazepine 200 Mg Tablet PO 200 mg TID ELICIA Administration Cenobamate 200 mg 04/07/25 10:00 04/07/25 11:06 Cenobamate 200 Mg Tablet PO 200 mg DAILY ELICIA Administration Enoxaparin Sodium 40 mg 04/07/25 10:00 04/07/25 09:08 Enoxaparin 40 Mg/0.4 Ml Syringe SC 40 mg DAILY ELICIA Administration Ferrous Gluconate 324 mg 04/07/25 12:00 04/07/25 11:08 Ferrous Gluconate 324 Mg Tablet PO 324 mg BIDLS ELICIA Administration Gabapentin 400 mg 04/07/25 06:00 04/07/25 05:14 Gabapentin 400 Mg Capsule PO 400 mg BID@0600,1400 ELICIA Administration Gabapentin 800 mg 04/06/25 22:08 04/06/25 23:16 Gabapentin 800 Mg Tablet PO 800 mg QHS ELICIA Administration Hydroxyzine Pamoate 50 mg 04/06/25 22:08 Hydroxyzine Jacqueline 25 Mg Capsule PO QHS PRN ELICIA Sodium Chloride 1,000 mls @ 50 mls/hr 04/06/25 17:25 04/06/25 20:12 IV Not Given .Q20H ELICIA Sodium Chloride 1,000 mls @ 70 mls/hr 04/06/25 22:08 04/06/25 22:55 IV 04/07/25 12:25 70 mls/hr .[id number] ELICIA Administration Sodium Chloride 250 mls @ 15 mls/hr 04/06/25 22:10 IV .[id number] PRN Saline Flush Sodium Chloride 250 mls @ 15 mls/hr 04/06/25 22:10 IV .[id number] PRN Additional IVPB Infusion Insulin Glargine 20 unit 04/07/25 10:00 04/07/25 09:11 Insulin Glargine-Yfgn 100 Unit/Ml Pen SC Not Given QAM ELICIA Levocarnitine 330 mg 04/06/25 22:08 04/07/25 09:09 Levocarnitine 330 Mg Tablet PO 330 mg BID ELICIA Administration Lorazepam 2 mg 04/06/25 22:08 Lorazepam 2 Mg/Ml Syringe IV Q4H PRN PRN SEIZURES Meclizine HCl 25 mg 04/06/25 22:08 Meclizine Hcl 25 Mg Tablet PO DAILY PRN PRN VERTIGO Melatonin 10 mg 04/06/25 22:08 04/06/25 23:09 Melatonin 10 Mg Tablet PO 10 mg QHS ELICIA Administration Mirtazapine 30 mg 04/06/25 22:08 04/06/25 23:08 Mirtazapine 30 Mg Tablet PO 30 mg QHS ELICIA Administration Nystatin 1 applic 04/06/25 22:08 04/07/25 09:08 Nystatin Powder 15gm Bottle TOPICAL 1 applic BID ELICIA Administration Protocol Pantoprazole Sodium 40 mg 04/07/25 10:00 04/07/25 09:09 Pantoprazole Sodium 40 Mg Tablet PO 40 mg DAILY ELICIA Administration Sodium Chloride 10 - 40 ml 04/06/25 22:10 0.9% Saline Lock 10 Ml Syringe IV UD PRN SALINE FLUSH Tizanidine HCl 4 mg 04/06/25 22:08 Tizanidine Hcl 2 Mg Tablet PO TID PRN PRN for muscle spasm Topiramate 100 mg 04/06/25 22:08 04/07/25 09:06 Topiramate 100 Mg Tablet PO 100 mg BID ELICIA Administration NIHSS NIHSS Nursing Documentation NIHSS Nursing Documentation: NIHSS: Ischemic Stroke/TIA Start: 04/06/25 22:08 Text: For ICU Patients: NIH sroke scale at Status: Complete presentation and every 2 hours or with change in RN caregiver Freq: [id number] Protocol: Activity Type Activity Date Activity User E-sign Co-sign Detail Recorded Client Recorded Date Recorded By Document 04/07/25 00:00 AT [id number] 04/07/25 01:29 AT 04/07/25 00:00 NIH Stroke Scale [NIHSS] A score of 0 is normal or asymptomatic . Total possible score is 42. Inpatient: RN or Physician to activate a stroke alert for onset of new stroke symptoms or with NIHSS increase >/= 3 points. Following change in neurological status, NIHSS will be performed per physician order or more frequently PRN. -1a. Level of Consciousness 0 - Alert; keenly responsive -1b. LOC Questions 0 - Answers BOTH questions correctly -1c. LOC Commands 0 - Performs BOTH tasks correctly -2. Best Gaze 2 - Forced deviation, -3. Visual 2 - Complete hemianopia -4. Facial Palsy 1 - Minor paralysis ( flattened nasolabial fold , asymmetry on smiling) -5a. Left Arm 0 - No drift; arm holds 90 ( or 45) degrees for full 10 seconds -5b. Right Arm 0 - No drift; arm holds 90 ( or 45) degrees for full 10 seconds -6a. Left Leg 1 - Drift; leg falls by the end of 5- seconds, but does not hit bed -6b. Right Leg 1 - Drift; leg falls by the end of 5- seconds, but does not hit bed -7. Limb Ataxia 0 - Absent -8. Sensory 1 - Mild-to- moderate sensory loss; -9. Best Language 1 - Mild-to- moderate aphasia; -10. Dysarthria 1 = Mild-to- moderate dysarthria; -11. Extinction and Inattention 0 - No abnormality -Total 10 Query Text:A score of 0 is normal or asymptomatic. Total possible score is 42 . ED: Notify Physician for NIHSS increase by > / = 3 points. Inpatient: RN or Physician to activate a stroke alert for NIHSS increase of > / = 3 points. Coma Scale [Assess] -Eye Opening Spontaneous -Motor Obeys Commands -Verbal Oriented [Total] -Coma Scale Total 15 NIHSS: Ischemic Stroke/TIA Start: 04/06/25 22:08 Text: For PCU Patients: NIH and Neuro Check every 4 Status: Active hours, PRN and with change in RN caregiver. Freq: [id number] Protocol: Activity Type Activity Date Activity User E-sign Co-sign Detail Recorded Client Recorded Date Recorded By Document 04/07/25 08:00 [place] [id number] 04/07/25 08:40 [place] 04/07/25 08:00 NIH Stroke Scale [NIHSS] A score of 0 is normal or asymptomatic . Total possible score is 42. Inpatient: RN or Physician to activate a stroke alert for onset of new stroke symptoms or with NIHSS increase >/= 3 points. Following change in neurological status, NIHSS will be performed per physician order or more frequently PRN. -1a. Level of Consciousness 0 - Alert; keenly responsive -1b. LOC Questions 0 - Answers BOTH questions correctly -1c. LOC Commands 0 - Performs BOTH tasks correctly -2. Best Gaze 2 - Forced deviation, -3. Visual 2 - Complete hemianopia -4. Facial Palsy 1 - Minor paralysis ( flattened nasolabial fold , asymmetry on smiling) -5a. Left Arm 0 - No drift; arm holds 90 ( or 45) degrees for full 10 seconds -5b. Right Arm 0 - No drift; arm holds 90 ( or 45) degrees for full 10 seconds -6a. Left Leg 0 - No drift; leg holds 30- degree position for full 5 seconds -6b. Right Leg 0 - No drift; leg holds 30- degree position for full 5 seconds -7. Limb Ataxia 0 - Absent -8. Sensory 0 - Normal; no sensory loss -9. Best Language 1 - Mild-to- moderate aphasia; -10. Dysarthria 1 = Mild-to- moderate dysarthria; -11. Extinction and Inattention 0 - No abnormality -Total 7 Query Text:A score of 0 is normal or asymptomatic. Total possible score is 42 . ED: Notify Physician for NIHSS increase by > / = 3 points. Inpatient: RN or Physician to activate a stroke alert for NIHSS increase of > / = 3 points. Coma Scale [Assess] -Eye Opening Spontaneous -Motor Obeys Commands -Verbal Oriented [Total] -Coma Scale Total 15
--- NOTE | 2025-04-07 14:14 | PCM.DC ---
Discharge Instructions DC O2, CPAP, BIPAP needs Home O2 Discharge instructions: No Dressing / Incision Discharge Activity: Return to Normal Activity Dressing / Incision Call your doctor if you observe: Fever of 101 or Higher, Shortness of breath, Dizziness, Fainting spells, Swelling in the ankles, Chest pain and Increased palpitations (irregular heartbeat) Follow Up Care Test Results: Test results from this visit will be discussed in further detail at your follow-up appointment, if applicable. Discharge Plan Admission Admit Date/Time: 04/06/25 21:11 Attending Provider: Amos Medina Primary Care Provider: Riddhi Simpson Consulting Providers: Carlo Ahumada; Luis Fernando Fuller; Kim Lomeli; Pao Beckham; Monica Lebron; Wilfred Brown; Nena Cavazos; Bib Duncan; Quinten Chang; John Kurtz; Peggy Thomas; Niecy Shah; Julius Patton; Rocio Sarmiento; Willis Jovel; Rajesh Heath; Sedrick Michelle; Naman Adames; Khang Birmingham; Abby Barnes; Lynn Fu; Lj Oreilly Discharge Orders/Prescriptions Prescriptions: Continued cranberry fruit 450 mg tablet 450 mg PO TID Rx Instructions: administer with meals Culturelle 10 billion cell capsule 1 cap PO DAILY ascorbic acid (vitamin C) 500 mg tablet 500 mg PO QDAY (DME) FreeStyle Es 2 Sensor Kit MISCELLANEOUS Qty: 3 0RF Rx Instructions: As directed (DME) FreeStyle Es 2 [place] Misc MISCELLANEOUS Qty: 1 0RF Rx Instructions: As directed cephalexin 250 mg capsule 250 mg PO QHS Qty: 90 0RF Patient Comments: 90 buspirone 5 mg tablet 5 mg PO TID PRN (Reason: anxiety) Qty: 90 1RF (DME) FreeStyle Es 3 [place] Misc See Rx Instructions .Route Qty: 1 3RF Rx Instructions: As directed (DME) FreeStyle Es 3 Sensor Device See Rx Instructions .Route Qty: 3 5RF Rx Instructions: As directed insulin glargine 100 unit/mL (3 mL) insulin pen 30 unit SUBCUT QAM Qty: 15 2RF carbamazepine [Tegretol] 200 mg tablet 200 mg PO TID Qty: 90 3RF gabapentin 800 mg tablet 800 mg PO QHS Qty: 30 3RF Emgality Pen 120 mg/mL pen injector 120 mg subcut QMONTH Qty: 1 3RF ibuprofen 600 mg tablet 600 mg PO TID PRN (Reason: headache/pain) Qty: 90 3RF levocarnitine 330 mg tablet 330 mg PO BID Qty: 60 3RF promethazine 12.5 mg tablet 12.5 mg PO TID PRN (Reason: nausea and vomiting) Qty: 90 4RF Ubrelvy 100 mg tablet 100 mg PO .COMPLEX Qty: 14 3RF Rx Instructions: Take 1 tablet orally every 2 hours as needed for headache up to 2 tablets/day. topiramate 100 mg tablet 100 mg PO BID Qty: 60 3RF Botox 100 unit recon soln 200 unit IM ONCE Qty: 2 0RF aspirin [Adult Aspirin Regimen] 81 mg tablet,delayed release (DR/EC) 81 mg PO QDAY prednisone 10 mg tablets,dose pack 10 mg PO DIRECTED Qty: 48 0RF Rx Instructions: see taper instructions tizanidine 4 mg tablet 4 mg PO TID PRN (Reason: for muscle spasm) Qty: 90 0RF Rx Instructions: Take TID prn meclizine 25 mg tablet 25 mg PO DAILY PRN PRN (Reason: vertigo) Qty: 60 0RF atorvastatin 80 mg tablet 80 mg PO QHS Qty: 90 0RF (DME) Droplet Insulin Syr(half unit) 0.5 mL 31 gauge x 5/16 syringe MISCELLANEOUS Patient Comments: USE TO INJECT INSULIN UNDER THE SKIN EVERY MEAL AND AT BEDTIME PER SLIDING SCALE Nuedexta 20-10 mg capsule 1 cap PO BID nystatin [Nyamyc] 100,000 unit/gram powder 1 applic TOPICAL BID Patient Comments: apply to affected area twice a day if needed mirtazapine 15 mg tablet 30 mg PO QHS melatonin 10 mg capsule 10 mg PO QHS diphenhydramine HCl [Allergy (diphenhydramine)] 25 mg capsule 50 mg PO QHS hydroxyzine HCl 25 mg tablet 50 mg PO QHS PRN ferrous gluconate 324 mg (37.5 mg iron) Tablet 324 mg PO BIDLS Qty: 0 0RF hydrocodone-acetaminophen 5-325 mg Tablet 1 tab PO BID 7 Days Qty: 14 0RF Xcopri 200 mg Tablet 200 mg PO DAILY 30 Days Qty: 30 0RF albuterol sulfate 2.5 mg /3 mL (0.083 %) Solution For Nebulization 2.5 mg inhalation Q2H PRN PRN (Reason: Shortness Of Breath) 30 Days Qty: 360 0RF albuterol sulfate 90 mcg/actuation HFA aerosol inhaler 2 puff INHALATION .q6prn 30 Days Qty: 18 0RF gabapentin 400 mg capsule 400 mg PO BID (DME) handicap placard See Rx Instructions .ROUTE .MEDSUPPLY Qty: 1 0RF Rx Instructions: Length of time: 5 years Diagnosis: Impaired physical mobility z74.09 omeprazole 40 mg capsule,delayed release(DR/EC) 40 mg PO DAILY Qty: 90 0RF amoxicillin-pot clavulanate 875-125 mg tablet 1 tab PO BID 10 Days Qty: 20 0RF codeine-guaifenesin 10-100 mg/5 mL liquid 10 ml PO Q4-6H PRN (Reason: cough) Qty: 118 0RF Referrals / Follow Up: Riddhi Simpson MD [Primary Care Provider, Internal Medicine] - Within 1 Week Vicente Santoro MD [Non-Staff -Ordering Privileges, Neurology] - Within 1 Month Referral Note: eval for myasthenia gravis if not already done Disposition Disposition (needs filled in before D/C Order can be placed): Home, Self Care
--- NOTE | 2025-04-07 14:19 | PCM.DC.SUM ---
Providers Date of Admission: 04/06/25 Primary Care Physician: Dr. Riddhi Simpson MD Consultations 04/06/25 22:08 Consult: Tele-Neurology Routine Consulting Provider: [facility] Reason for Consult: Acute Ischemic Stroke/TIA EMERGENT Consult: No MD Notified: Yes Date Notified: 04/06/25 Time Notified: 23:39 Method of Notification: Answering Service Nursing Unit Staff Notify [facility] of Tele-Neurology Consult: Yes Reason For Visit: ALTERED MENTAL STATUS AND SLURRED SPEECH WITH Diagnosis Discharge Diagnosis (1) Altered mental status: Status: Acute Code(s): R41.82 - Altered mental status, unspecified Qualifiers: Altered mental status type: unspecified Qualified Code(s): R41.82 - Altered mental status, unspecified (2) Slurred speech: Status: Acute Code(s): R47.81 - Slurred speech (3) History of CVA (cerebrovascular accident): Status: Acute Code(s): Z86.73 - Personal history of transient ischemic attack (TIA), and cerebral infarction without residual deficits (4) History of seizure disorder: Status: Acute Code(s): Z86.69 - Personal history of other diseases of the nervous system and sense organs (5) Demyelinating disease of central nervous system: Status: Chronic Code(s): G37.9 - Demyelinating disease of central nervous system, unspecified (6) Leukocytosis: Status: Acute Code(s): D72.829 - Elevated white blood cell count, unspecified Qualifiers: Leukocytosis type: unspecified Qualified Code(s): D72.829 - Elevated white blood cell count, unspecified (7) Obesity (BMI 30.0-34.9): Status: Acute Code(s): E66.811 - Obesity, class 1 Medications at Discharge Home Medications insulin syr/ndl U100 half shirley 0.5 mL 31 gauge x 5/16 (Droplet Insulin Syringe (half unit)) 09/03/22 dextromethorphan 20 mg-quinidine 10 mg capsule (Nuedexta) 1 cap PO BID DEPRESSION 02/06/23 nystatin 100,000 unit/gram topical powder (Nyamyc) 1 applic topical BID RASH 09/04/23 Lactobacillus rhamnosus GG 10 billion cell capsule (Culturelle) 1 cap PO DAILY recurrent uti 05/09/24 ascorbic acid (vitamin C) 500 mg tablet 500 mg PO QDAY see pcp 05/09/24 cranberry fruit 450 mg tablet 450 mg PO TID see pcp 05/09/24 flash glucose scanning reader (FreeStyle Es 2 [place]) #1 ea 10/30/24 flash glucose sensor (FreeStyle Es 2 Sensor kit) #3 ea 10/30/24 handicap placard #1 ea 11/15/24 mirtazapine 15 mg tablet 30 mg PO QHS sleep 12/14/24 omeprazole 40 mg capsule,delayed release 40 mg PO DAILY GERD #90 caps 01/03/25 diphenhydramine HCl 25 mg capsule (Allergy (diphenhydramine)) 50 mg PO QHS sleep 01/19/25 melatonin 10 mg capsule 10 mg PO QHS sleep 01/19/25 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 sensor (FreeStyle Es 3 Sensor device) #3 ea 02/15/25 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,orthopedic shoe fitter,cont (FreeStyle Es 3 [place]) #1 ea 02/15/25 buspirone 5 mg tablet 5 mg PO TID PRN anxiety #90 tabs 02/15/25 cephalexin 250 mg capsule 250 mg PO QHS recurrent UTI #90 caps 02/15/25 insulin glargine 100 unit/mL (3 mL) subcutaneous pen 30 unit (0.3 mL) subcut QAM diabetes #15 mL 02/15/25 hydroxyzine HCl 25 mg tablet 50 mg PO QHS PRN anxiety 02/17/25 ferrous gluconate 324 mg (37.5 mg iron) tablet 324 mg PO BIDLS iron supplement #0 tabs 02/20/25 cenobamate 200 mg tablet (Xcopri) 200 mg PO DAILY 30 days #30 tabs 03/01/25 hydrocodone-acetaminophen 5-325mg 5mg-325mg 1 tab PO BID 7 days #14 tabs 03/01/25 albuterol sulfate 2.5 mg/3 mL (0.083 %) solution for nebulization 2.5 mg (3 mL) inhalation Q2H PRN PRN Shortness Of Breath 30 days #360 mL 03/02/25 albuterol sulfate 90 mcg/actuation aerosol inhaler 2 puff inhalation .q6prn Wheezing 30 days #18 grams 03/02/25 aspirin 81 mg tablet,delayed release (Adult Aspirin Regimen) 81 mg PO QDAY 03/08/25 atorvastatin 80 mg tablet 80 mg PO QHS cholesterol #90 tabs 03/08/25 meclizine 25 mg tablet 25 mg PO DAILY PRN PRN vertigo #60 tabs 03/08/25 prednisone 10 mg tablets in a dose pack 10 mg PO DIRECTED #48 tabs 03/08/25 tizanidine 4 mg tablet 4 mg PO TID PRN for muscle spasm #90 TABLETS 03/08/25 carbamazepine 200 mg tablet (Tegretol) 200 mg PO TID seizures #90 tabs 03/18/25 gabapentin 800 mg tablet 800 mg PO QHS #30 tabs 03/18/25 galcanezumab-gnlm 120 mg/mL subcutaneous pen injector (Emgality Pen) 120 mg subcut QMONTH migraines #1 mL 03/18/25 ibuprofen 600 mg tablet 600 mg PO TID PRN headache/pain #90 tabs 03/18/25 levocarnitine 330 mg tablet 330 mg PO BID #60 tabs 03/18/25 promethazine 12.5 mg tablet 12.5 mg PO TID PRN nausea and vomiting #90 tabs 03/18/25 ubrogepant 100 mg tablet (Ubrelvy) 100 mg PO .COMPLEX MIGRAINE #14 tabs 03/18/25 onabotulinumtoxinA 100 unit solution for injection (Botox) 200 unit IM ONCE Migraine headache w/o aura (ICD 10: G43.009) #2 ea 03/28/25 topiramate 100 mg tablet 100 mg PO BID #60 tabs 03/28/25 amoxicillin 875 mg-potassium clavulanate 125 mg tablet 1 tab PO BID 10 days #20 tabs 03/29/25 codeine 10 mg-guaifenesin 100 mg/5 mL oral liquid 10 ml PO Q4-6H PRN cough #118 mL 03/29/25 gabapentin 400 mg capsule 400 mg PO BID polyneuropathy 04/06/25 Hospital Course Operations None Procedures None Summary of Care Provided Minutes Spent on Discharge: 37 Hospital Course: Per HPI: FAM SOTO, is a 59 F with a past medical history of hyperlipidemia; on atorvastatin, obesity (class I); with BMI of 34.9 this admission, DM-2; unknown control on insulin glargine 30 units subcu daily, history of SSS; s/p PPM, history of CVA (~2022); with residual Left-sided weakness, history of concussion (1990) with subsequent seizure disorder; on cenobamate, topiramate twice daily and carbamazepine 3 times daily, history of demyelinating disease of [employer], pseudobulbar affect, neuropathy; on gabapentin BID, depression; on mirtazapine plus Nuedexta twice daily plus as needed hydroxyzine, chronic migraine headaches; on ubrogepant, galcanezumab monthly injections plus Botox injections done by Dr. Santoro of neurology, vertigo; on meclizine as needed, history of COPD, history of recurrent UTIs, history of psoriasis, GERD; on omeprazole, muscle spasms on as needed tizanidine and OA; with low back pain on ibuprofen 3 times daily as needed who presents to [facility] ER complaining of altered mental status and slurred speech. Ms. Soto is not a reliable historian at this time deformations gathered from chart, medical staff and computer. According to the records the patient lives with her sister who suspected that she had a seizure this morning and had not been acting normal since that time. The sister also went on to state that she noticed the patient had a Left eye droop 2 days ago but did not seek medical attention at that time. In the ER she was noted to have Leukocytosis of 14.7 K present on admission with suspected recurrent UTI with CT scan of the brain without contrast that revealed no acute ICH, mass effect or midline shift with chronic involutional and ischemic gliotic white matter changes followed by CTA of the head and neck with IV contrast that revealed no evidence of occlusion or hemodynamically significant stenosis along with a CXR that showed no acute cardiopulmonary disease. The ER physician had a high event index of suspicion for possible underlying CVA with persistent slurred speech throughout the day and no further witnessed seizure activity. She was then admitted to the PCU under observation status for ongoing care for status expected to extend beyond 2 midnights. Hospital Course: 1. Altered mental status with slurred speech and left eye droop?59-year-old female with extensive past neurological history with no concrete diagnosis presented to the hospital with recurrent symptoms. This time she had the addition of a left eye droop and was admitted for MRI. There was concern for possible UTI however she is already on antibiotics as an outpatient and her UA had positive squames and therefore unreliable. Today she is feeling much better and back to her normal self though she still has the left eye droop, I discussed with her that because of her pacemaker she will need to stay until Wednesday to have the MRI, neurology was consulted who also felt that she should have the MRI and if negative be worked up for myasthenia gravis however she is refusing to stay. She requested to be discharged home and would follow-up with her neurologist as an outpatient. She did express understanding of the risks and benefits of going home and would still like to go home. I canceled her echo because she recently had an echo in January with an EF of 70% and a PASP of 50 mmHg. I do recommend she follow-up with her PCP as well as her neurologist as an outpatient. 2. Type 2 diabetes, hyperlipidemia, anxiety, depression, GERD, seizure disorder, iron deficiency anemia, migraines her chronic medical conditions which complicate her care. Her home medications were continued where appropriate Physical Exam Narrative General: Alert, Oriented x3, Cooperative, No apparent distress HEENT: Atraumatic, PERRLA, EOMI, Normocephalic Oral: Moist Mucosa Neck: Supple, No JVD Lungs: Diminished, Normal air movement, No rhonchi, No wheeze, No rales Cardiovascular: Regular rate, Regular Rhythm, Normal S1, Normal S2, No murmurs Abdomen: Soft, Non Tender, Non-Distended, No Hepato-splenomegaly Extremities: No edema, Capillary Refill Less than 3 Seconds Skin: No rashes, No breakdown Musculoskeletal: No Tenderness to Palpation of Joints or Extremities Neurological: Left eye ptosis with chronic baseline neurological function Psych/Mental Status: Normal Affect, Appropriate Weight / BMI Weight Weight: 201 lb 11.567 oz Body Mass Index (BMI) 32.5 ABG / Lab / Microbiology Data 04/07/25 10:20 04/07/25 06:59 Laboratory: Laboratory Results - last 24 hr 04/06/25 18:20: WBC 14.7 H, RBC 3.72 L, Hgb 11.3 L, Hct 33.9 L, MCV 91.1, MCH 30.4, MCHC 33.3, RDW Std Deviation 51.3 H, RDW Coeff of He 15.4 H, Plt Count 245, MPV 10.2, Immature Gran % (Auto) 0.600, Neut % (Auto) 84.3 H, Lymph % (Auto) 9.0 L, [place] % (Auto) 5.6, Eos % (Auto) 0.3, Baso % (Auto) 0.2, Absolute Neuts (auto) 12.4 H, Absolute Lymphs (auto) 1.32, Nucleated RBC % 0, PT 13.7, INR 1.0, APTT 30.8, Sodium 132 L, Potassium 4.1, Chloride 101, Carbon Dioxide 19.6 L, Anion Gap 12, BUN 10, Creatinine 0.63 L, Estim Creat Clear Calc 114.97, Est GFR (MDRD) Non-Af 103, BUN/Creatinine Ratio 15.2, Glucose 167 H, Hemoglobin A1c 6.7 H, Calcium 8.7, Troponin T High Sens 14 D 04/06/25 19:42: Troponin T Hi Sens 2 Hr 22 H, TSH 1.880 04/06/25 20:17: Lactic Acid < 1.0, Carbamazepine 6.5 04/06/25 21:30: Urine Color Yellow, Urine Clarity Clear, Urine pH 7.0, Ur Specific [place] 1.005, Urine Protein 15 H, Urine Glucose (UA) Normal, Urine Ketones Negative, Urine Occult Blood Negative, Urine Nitrite Negative, Urine Bilirubin Negative, Urine Urobilinogen Normal, Ur Leukocyte Esterase 100 H, Urine RBC 0-5 SEEN, Urine WBC 50-100 SEEN, Ur Squamous Epith Cells 10-25 SEEN, Urine Bacteria 1+, Urine Mucus 0 SEEN, Urine Opiates Screen PRESUMPTIVE POSITIVE, U Buprenorphine Qual NEGATIVE, Ur Oxycodone Screen NEGATIVE, Urine Methadone Screen NEGATIVE, Urine Fentanyl Screen NEGATIVE, Ur Barbiturates Screen NEGATIVE, Ur Phencyclidine Scrn NEGATIVE, Ur Amphetamines Screen NEGATIVE, U Benzodiazepines Scrn NEGATIVE, Urine Cocaine Screen NEGATIVE, U Cannabinoids Screen NEGATIVE 04/06/25 22:30: Troponin T Hi Sens 4Hr 16 H, Ethyl Alcohol < 10.1 04/07/25 05:49: POC Glucose 95 04/07/25 06:59: Sodium 135, Potassium 3.7, Chloride 105, Carbon Dioxide 15.4 L, Anion Gap 15, BUN 7, Creatinine 0.56 L, Estim Creat Clear Calc 124.78, Est GFR (MDRD) Non-Af 106, BUN/Creatinine Ratio 12.6, Glucose 94, Calcium 8.6, Triglycerides 165, Cholesterol 133, LDL Cholesterol, Calc 45, VLDL Cholesterol 33, HDL Cholesterol 55, Cholesterol/HDL Ratio 2.43 04/07/25 10:20: WBC 9.4, RBC 3.81 L, Hgb 11.9 L, Hct 35.2 L, MCV 92.4, MCH 31.2, MCHC 33.8, RDW Std Deviation 52.9 H, RDW Coeff of He 15.7 H, Plt Count 232, MPV 9.9, Immature Gran % (Auto) 0.300, Neut % (Auto) 73.9 H, Lymph % (Auto) 17.9 L, [place] % (Auto) 5.4, Eos % (Auto) 2.3, Baso % (Auto) 0.2, Absolute Neuts (auto) 6.9, Absolute Lymphs (auto) 1.68, Nucleated RBC % 0 04/07/25 12:00: POC Glucose 142 H ABG: ABG 04/06/25 23:37 Specimen Type ART Sample Site R Radial pH 7.39 Bicarbonate Actual 22.6 Total CO2 24 Base Excess -2 O2 Saturation 95 ABG pCO2 37.6 ABG pO2 75 Shawn Test Positive O2 Delivery Device Room Air Vent Mode Not entered Radiography Diagnostic Testing: Radiology Impression Brain CT 04/06/25 17:24 IMPRESSION: 1. No intracranial hemorrhage. No mass effect or midline shift. 2. Chronic involutional and ischemic gliotic white matter changes. CT is insensitive for early evaluation of acute stroke. If there is clinical concern for acute ischemia, an MRI may be considered. Findings were verbally communicated with Dr. Gerardo on 04/06/2025 at 6:42 p.m. EST. Reading Location: [facility] Head/Neck CTA 04/06/25 18:20 IMPRESSION: Unremarkable CT angio of the head and neck with no evidence of occlusion or hemodynamically significant stenosis. Reading Location: [facility] Chest X-Ray 04/06/25 19:08 IMPRESSION: No evidence of acute cardiopulmonary disease. Reading Location: [id number] D/C Instructions Call your doctor if you observe: Fever of 101 or Higher, Shortness of breath, Dizziness, Fainting spells, Swelling in the ankles, Chest pain and Increased palpitations (irregular heartbeat) DC O2, CPAP, BIPAP Needs Home O2 Discharge instructions: No Meaningful Use Info Meaningful Use Meaningful Use Diagnoses (Choose all that apply): None applicable Discharge Plan Admission Admit Date/Time: 04/06/25 21:11 Attending Provider: Amos Medina Primary Care Provider: Riddhi Simpson Consulting Providers: Carlo Ahumada; Luis Fernando Fuller; Kim Lomeli; Pao Beckham; Monica Lebron; Wilfred Brown; Nena Cavazos; Bib Duncan; Quinten Chang; John Kurtz; Peggy Thomas; Niecy Shah; Julius Patton; Rocio Sarmiento; Willis Jovel; Rajesh Heath; Sedrick Michelle; Naman Adames; Khang Birmingham; Abby Barnes; Lynn Fu; Lj Oreilly Discharge Orders/Prescriptions Prescriptions: Continued cranberry fruit 450 mg tablet 450 mg PO TID Rx Instructions: administer with meals Culturelle 10 billion cell capsule 1 cap PO DAILY ascorbic acid (vitamin C) 500 mg tablet 500 mg PO QDAY (DME) FreeStyle Es 2 Sensor Kit MISCELLANEOUS Qty: 3 0RF Rx Instructions: As directed (DME) FreeStyle Es 2 [place] Misc MISCELLANEOUS Qty: 1 0RF Rx Instructions: As directed cephalexin 250 mg capsule 250 mg PO QHS Qty: 90 0RF Patient Comments: 90 buspirone 5 mg tablet 5 mg PO TID PRN (Reason: anxiety) Qty: 90 1RF (DME) FreeStyle Es 3 [place] Misc See Rx Instructions .Route Qty: 1 3RF Rx Instructions: As directed (DME) FreeStyle Es 3 Sensor Device See Rx Instructions .Route Qty: 3 5RF Rx Instructions: As directed insulin glargine 100 unit/mL (3 mL) insulin pen 30 unit SUBCUT QAM Qty: 15 2RF carbamazepine [Tegretol] 200 mg tablet 200 mg PO TID Qty: 90 3RF gabapentin 800 mg tablet 800 mg PO QHS Qty: 30 3RF Emgality Pen 120 mg/mL pen injector 120 mg subcut QMONTH Qty: 1 3RF ibuprofen 600 mg tablet 600 mg PO TID PRN (Reason: headache/pain) Qty: 90 3RF levocarnitine 330 mg tablet 330 mg PO BID Qty: 60 3RF promethazine 12.5 mg tablet 12.5 mg PO TID PRN (Reason: nausea and vomiting) Qty: 90 4RF Ubrelvy 100 mg tablet 100 mg PO .COMPLEX Qty: 14 3RF Rx Instructions: Take 1 tablet orally every 2 hours as needed for headache up to 2 tablets/day. topiramate 100 mg tablet 100 mg PO BID Qty: 60 3RF Botox 100 unit recon soln 200 unit IM ONCE Qty: 2 0RF aspirin [Adult Aspirin Regimen] 81 mg tablet,delayed release (DR/EC) 81 mg PO QDAY prednisone 10 mg tablets,dose pack 10 mg PO DIRECTED Qty: 48 0RF Rx Instructions: see taper instructions tizanidine 4 mg tablet 4 mg PO TID PRN (Reason: for muscle spasm) Qty: 90 0RF Rx Instructions: Take TID prn meclizine 25 mg tablet 25 mg PO DAILY PRN PRN (Reason: vertigo) Qty: 60 0RF atorvastatin 80 mg tablet 80 mg PO QHS Qty: 90 0RF (DME) Droplet Insulin Syr(half unit) 0.5 mL 31 gauge x 5/16 syringe MISCELLANEOUS Patient Comments: USE TO INJECT INSULIN UNDER THE SKIN EVERY MEAL AND AT BEDTIME PER SLIDING SCALE Nuedexta 20-10 mg capsule 1 cap PO BID nystatin [Nyamyc] 100,000 unit/gram powder 1 applic TOPICAL BID Patient Comments: apply to affected area twice a day if needed mirtazapine 15 mg tablet 30 mg PO QHS melatonin 10 mg capsule 10 mg PO QHS diphenhydramine HCl [Allergy (diphenhydramine)] 25 mg capsule 50 mg PO QHS hydroxyzine HCl 25 mg tablet 50 mg PO QHS PRN ferrous gluconate 324 mg (37.5 mg iron) Tablet 324 mg PO BIDLS Qty: 0 0RF hydrocodone-acetaminophen 5-325 mg Tablet 1 tab PO BID 7 Days Qty: 14 0RF Xcopri 200 mg Tablet 200 mg PO DAILY 30 Days Qty: 30 0RF albuterol sulfate 2.5 mg /3 mL (0.083 %) Solution For Nebulization 2.5 mg inhalation Q2H PRN PRN (Reason: Shortness Of Breath) 30 Days Qty: 360 0RF albuterol sulfate 90 mcg/actuation HFA aerosol inhaler 2 puff INHALATION .q6prn 30 Days Qty: 18 0RF gabapentin 400 mg capsule 400 mg PO BID (DME) handicap placard See Rx Instructions .ROUTE .MEDSUPPLY Qty: 1 0RF Rx Instructions: Length of time: 5 years Diagnosis: Impaired physical mobility z74.09 omeprazole 40 mg capsule,delayed release(DR/EC) 40 mg PO DAILY Qty: 90 0RF amoxicillin-pot clavulanate 875-125 mg tablet 1 tab PO BID 10 Days Qty: 20 0RF codeine-guaifenesin 10-100 mg/5 mL liquid 10 ml PO Q4-6H PRN (Reason: cough) Qty: 118 0RF Referrals / Follow Up: Riddhi Simpson MD [Primary Care Provider, Internal Medicine] - Within 1 Week Vicente Santoro MD [Non-Staff -Ordering Privileges, Neurology] - Within 1 Month Referral Note: eval for myasthenia gravis if not already done Disposition Disposition (needs filled in before D/C Order can be placed): Home, Self Care Charges/Coding Visit Charges Inpatient E&M: 98651 Disch Hosp >30min
--- NOTE | 2025-04-07 17:02 | CASEMGMT ---
Social Work- CT negative; MRI not completed at this time. PHQ-9 not completed at this time; awaiting MRI. SW remains available to follow. DAIJA Archibald
--- NOTE | 2025-04-07 17:23 | CASEMGMT ---
ENRIQUE SHELL note: Intro role of CM to patient and CORDON form explained re: Observation status for treatment of altered mental status and slurred speech with leukocytosis.? Explained hospitalization will be paid per?her insurance policy for Outpatient billing?and condition will continue to be evaluated for Inpt necessity. Also let pt know that [facility] sends paper in the billing packet with their phone number if questions arise. Pt verbalizes understanding and does not have any questions. ?Form signed, copy made and placed in chart, and original given to pt. Pt states her sister is coming @ 8 PM. She states her sister is aware she is requesting to be discharged today, as she does not want to stay in the hospital until Wednesday to have MRI done. Pt states her sister wants to know what the plan is. She further clarified she wants to know what the doctor's orders are, what he plans to do, and what medications she will be discharging on. ENRIQUE SHELL informed her there are no new changes in her medications or further discharge instructions. She states she would like to talk with Dr Medina if he is still in the hospital. ENRIQUE SHELL sent message to Dr Medina re: same. He sent message back to this ENRIQUE SHELL stating he has left the hospital and sent message stating, The plan is to follow up with her neurologist and be worked up for myasthenia gravis if he agrees. If she needs further neurological care then she needs to go to an institution that has in house neurology. Pt made aware of this and she states she is comfortable with this plan. Pt made aware information was added to ENRIQUE SHELL dc instructions so information is written out for pt and her sister. She voiced appreciation of same. [employer], and supervisor propellant charge loading, Migdalia, made aware as well. Pt denies having further discharge needs or concerns. Norbert DERASN ENRIQUE SHELL
--- NOTE | 2025-04-07 20:52 | NURSING ---
This RN counted home medication, Cenobamate 200 mg tab, and returned medication bottle with 8 tablets to the patient. Sent final count on medication record to pharmacy.
== END 2025-04-07 20:50 | disposition home or self-care (01) ==
LOC: ED 18:48 → PCU 21:22
PROVIDERS: Emergency Medicine; Admitting Provider Internal Medicine; Emergency Provider Student in an Organized Health Care Education/Training Program; PCP Internal Medicine; Visit Provider Family Medicine
DX: R41.82 Altered mental status, unspecified (principal); G35 Multiple sclerosis; I69.354 Hemiplegia and hemiparesis following cerebral infarction affecting left non-dominant side; J44.9 Chronic obstructive pulmonary disease, unspecified; I49.5 Sick sinus syndrome; G40.909 Epilepsy, unspecified, not intractable, without status epilepticus; E11.42 Type 2 diabetes mellitus with diabetic polyneuropathy; Z79.4 Long term (current) use of insulin; G43.709 Chronic migraine without aura, not intractable, without status migrainosus; Z87.891 Personal history of nicotine dependence; Z79.82 Long term (current) use of aspirin; F41.9 Anxiety disorder, unspecified; E78.5 Hyperlipidemia, unspecified; E66.811 Obesity, class 1; I10 Essential (primary) hypertension; Z82.49 Family history of ischemic heart disease and other diseases of the circulatory system; D50.9 Iron deficiency anemia, unspecified; Z95.0 Presence of cardiac pacemaker; K21.9 Gastro-esophageal reflux disease without esophagitis; R47.81 Slurred speech; Z79.899 Other long term (current) drug therapy; Z68.34 Body mass index [BMI] 34.0-34.9, adult; R29.810 Facial weakness; F32.A Depression, unspecified; R42 Dizziness and giddiness; I45.2 Bifascicular block; R94.31 Abnormal electrocardiogram [ECG] [EKG]
CPT/HCPCS: 36415; 36600; 70450; 70496; 70498; 71045; 80048; 80061; 80156; 80201; 80307; 81001; 82077; 82803; 82962; 83036; 83605; 84443; 84484; 85025; 85610; 85730; 92610; 93005; 94762; 96361; 96365; 96372; 97163; 97166; 99221; 99285; Q9967; A4216; G0378

== ENCOUNTER → 2025-04-24 | Outpatient (CLI) | payer MEDICARE, MEDICAID, SELFPAY ==
[2025-04-24 07:36] LABS: Mucous, Urine 0 SEEN /hpf (<or=2+)
[2025-04-24 10:58] LABS: Hematocrit 38.7 % (37-47); Hemoglobin 12.8 g/dL (12.0-15.0); Mean Corp Hgb Conc 33.1 g/dL (32-36); Mean Corpuscular Volume 93.7 fL (81-99); Mean Platelet Vol. 10.7 fl (6.2-12.0); Platelet Count 247 K/mm3 (150-450); RBC Distribution Width CV 15.5 % (11.6-14.6); RBC Distribution Width SD 53.4 fl (35.1-43.9); Red Blood Count 4.13 M/mm3 (4.2-5.4); White Blood Count 8.3 K/mm3 (4.4-11.0)
[2025-04-24 11:40] LABS: AST(SGOT) 29 U/L (<=31); Alanine Aminotransfer ALT/SGPT 20 U/L (<=34); Albumin, Serum 4.5 g/dL (3.5-5.0); Alkaline Phosphatase 118 U/L (35-104); Anion Gap 13 (5-15); BUN 14 mg/dL (4-19); BUN/Creat Ratio 17.4 RATIO (10-20); Calcium,Total 9.1 mg/dL (7.6-11.0); Carbon Dioxide 20.8 mmol/L (21.0-32.0); Chloride 104 mmol/L (98-108); Globulin 2.9 g/dL (2.2-4.2); Glucose 97 mg/dL (70-99); Magnesium 2.0 mg/dL (1.5-2.2); Potassium 3.4 mmol/L (3.3-5.1); Vitamin B12 606 pg/mL (180-914)
[2025-04-24 20:13] LABS: Color, Urine Yellow (Yellow); Glucose, Dipstick Normal (Normal); Ketone-Dipstick Negative (Negative); Leukocyte Esterase-Dipstick 100 /ul (Negative); Nitrite-Dipstick Negative (Negative); Occult Blood-Urine Negative /ul (Negative); Protein-Dipstick 15 mg/dl (Negative); Specific Gravity, Urine 1.020 (1.002-1.030); Urine Bilirubin Dipstick Negative (Negative)
[2025-04-24 20:23] LABS: Barbiturate Urine NEGATIVE (< 200 ng/mL); Benzodiazepine Urine NEGATIVE (< 200 ng/mL); PCP Urine NEGATIVE (< 25 ng/mL); THC Urine NEGATIVE (< 50 ng/mL)
[2025-04-24 21:23] LABS: Red Blood Cells-Urine 0-5 SEEN /hpf (0-5); Yeast-Urine 3+ /hpf (None Seen)
[2025-04-24 21:24] LABS: Squamous Epithelial Cells - UA 0-5 SEEN /hpf (5-10); Transitional Epithelial - Ur 0-5 SEEN /hpf (0-5)
[2025-04-24 21:25] LABS: Calcium Oxalate Crystals Ur 1+ /hpf (<or=2+)
[2025-04-28 16:08] LABS: Vitamin B1, Thiamine 122.6 nmol/L (66.5-200.0)
[2025-04-29 15:07] LABS: ACHR AB Modulating 0 % (0-45)
== END | disposition home or self-care (01) ==
PROVIDERS: PCP Internal Medicine; Referring Provider Psychiatry & Neurology Neurology; Visit Provider Psychiatry & Neurology Neurology
DX: R41.82 Altered mental status, unspecified (principal); G40.909 Epilepsy, unspecified, not intractable, without status epilepticus; R53.83 Other fatigue; H02.409 Unspecified ptosis of unspecified eyelid; R26.9 Unspecified abnormalities of gait and mobility
CPT/HCPCS: 36415; 80053; 80307; 81001; 82607; 83519; 83735; 84238; 84425; 85027; 87086; 87088

== ENCOUNTER 2025-05-07 16:22 | Inpatient (IN) | payer MEDICARE, MEDICAID, SELFPAY ==
[2025-05-07] VITALS (15 sets, daily range): BP systolic 87–159; BP diastolic 60–105; PULSE 60–78; RESP 12–17; TEMP 36.4–36.6; O2SAT 92–99; BMI 30.9; BMI 31.6; BMI 68.9
--- NOTE | 2025-05-07 16:25 | CT_ITS ---
PROCEDURE: CT/STROKE Brain/Head without Cont
--- NOTE | 2025-05-07 16:26 | CT_ITS ---
PROCEDURE: CT/STROKE CTA Head AND Neck W/Con
--- NOTE | 2025-05-07 16:29 | ED.VIS.STROK ---
HPI History of Present Illness Chief Complaint: Stroke Alert Narrative Narrative: Patient is a 59-year-old female presenting to the emergency department for a stroke alert. Patient has a past medical history of migraines, epilepsy, CVA. Lives at home and is cared for by sister. Per EMS last known well was 2300. When the sister went to check on her this morning she was not able to feed herself which is abnormal for her. She called EMS for evaluation. She is not on any current anticoagulation. History unable to be obtained from patient due to altered mental status. [facility] Medical History Slurred speech Anxiety COPD (chronic obstructive pulmonary disease) Debility Seizure Myalgia Low back pain Diabetes mellitus, type 2 Presence of cardiac pacemaker Sick sinus syndrome History of COPD History of diabetes mellitus Syncope Symptomatic bradycardia Hx of type 2 diabetes mellitus Epilepsy Palpitations Hyperammonemia Cerebrovascular disease Dorsalgia Neck pain Migraine headache without aura Polyneuropathy Generalized weakness General weakness Former smoker Asthma Seizures Multiple sclerosis Demyelinating disease of central nervous system Epilepsy Generalized weakness Recurrent falls Recurrent syncope Depression Migraines Multiple falls Gastroenteritis History of CVA (cerebrovascular accident) GERD (gastroesophageal reflux disease) Obesity Former tobacco use Seizure disorder Allergic rhinitis Chronic migraine Orthostasis HTN (hypertension) COVID-19 virus infection Bradycardia Psoriasis Hypercholesterolemia Home Medications ?Medication ?Instructions ?Recorded ?Last Taken ?Type insulin syr/ndl U100 half shirley 0.5 09/03/22 Unknown History mL 31 gauge x 5/16 (Droplet Insulin Syringe (half unit)) dextromethorphan 20 mg-quinidine 1 cap PO BID DEPRESSION 02/06/23 05/07/25 History 10 mg capsule (Nuedexta) Lactobacillus rhamnosus GG 10 1 cap PO DAILY recurrent uti 05/09/24 05/07/25 History billion cell capsule (Culturelle) ascorbic acid (vitamin C) 500 mg 500 mg PO QDAY see pcp 05/09/24 05/07/25 History tablet cranberry fruit 450 mg tablet 450 mg PO TID see pcp 05/09/24 05/07/25 History flash glucose scanning reader #1 ea 10/30/24 Unknown Rx (FreeStyle Es 2 Putnam) flash glucose sensor (FreeStyle #3 ea 10/30/24 Unknown Rx Es 2 Sensor kit) handicap placard #1 ea 11/15/24 Unknown Rx omeprazole 40 mg capsule,delayed 40 mg PO DAILY GERD #90 caps 01/03/25 05/07/25 Rx release melatonin 10 mg capsule 10 mg PO QHS sleep 01/19/25 05/06/25 History 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 sensor (FreeStyle #3 ea 02/15/25 Unknown Rx Es 3 Sensor device) 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,cobbler apprentice,cont #1 ea 02/15/25 Unknown Rx (FreeStyle Es 3 Putnam) buspirone 5 mg tablet 5 mg PO TID PRN anxiety #90 tabs 02/15/25 05/07/25 Rx cephalexin 250 mg capsule 250 mg PO QHS recurrent UTI #90 02/15/25 05/06/25 Rx caps insulin glargine 100 unit/mL (3 30 unit (0.3 mL) subcut QAM 02/15/25 05/07/25 Rx mL) subcutaneous pen diabetes #15 mL hydroxyzine HCl 25 mg tablet 50 mg PO QHS PRN anxiety 02/17/25 05/06/25 History albuterol sulfate 2.5 mg/3 mL 2.5 mg (3 mL) inhalation Q2H PRN 03/02/25 Unknown Rx (0.083 %) solution for nebulization PRN Shortness Of Breath 30 days #360 mL aspirin 81 mg tablet,delayed 81 mg PO QDAY 03/08/25 05/07/25 History release (Adult Aspirin Regimen) atorvastatin 80 mg tablet 80 mg PO QHS cholesterol #90 tabs 03/08/25 05/06/25 Rx carbamazepine 200 mg tablet 200 mg PO TID seizures #90 tabs 03/18/25 05/07/25 Rx (Tegretol) gabapentin 800 mg tablet 800 mg PO QHS #30 tabs 03/18/25 05/06/25 Rx galcanezumab-gnlm 120 mg/mL 120 mg subcut QMONTH migraines #1 03/18/25 04/11/25 Rx subcutaneous pen injector mL (Emgality Pen) ibuprofen 600 mg tablet 600 mg PO TID PRN headache/pain 03/18/25 05/07/25 Rx #90 tabs ubrogepant 100 mg tablet (Ubrelvy) 100 mg PO .COMPLEX MIGRAINE #14 03/18/25 Unknown Rx tabs topiramate 100 mg tablet 100 mg PO BID #60 tabs 03/28/25 05/07/25 Rx gabapentin 400 mg capsule 400 mg PO BID polyneuropathy 04/06/25 05/07/25 History albuterol sulfate 90 mcg/actuation 2 puff inhalation Q6H PRN Wheezing 05/07/25 Unknown History aerosol inhaler brexpiprazole 0.5 mg tablet 0.5 mg PO DAILY 05/07/25 05/06/25 History (Rexulti) duloxetine 60 mg capsule,delayed 60 mg PO DAILY 05/07/25 05/07/25 History release ferrous sulfate 325 mg (65 mg 325 mg PO BID 05/07/25 05/07/25 History iron) tablet (Prieto-Time) fluticasone furoate 200 1 inh inhalation DAILY 05/07/25 05/07/25 History mcg/actuation blister powder for inhalation (Arnuity Ellipta) mirtazapine 30 mg tablet 30 mg PO QHS 05/07/25 05/06/25 History onabotulinumtoxinA 100 unit 200 unit IM .COMPLEX Migraine 05/07/25 03/20/25 History solution for injection (Botox) headache w/o aura (ICD 10: G43.009) semaglutide 0.25 mg or 0.5 mg (2 0.25 mg subcut QWEEK 05/07/25 05/03/25 History mg/3 mL) subcutaneous pen injector (Ozempic) tizanidine 2 mg tablet 2 mg PO TID muscle spasm 05/07/25 05/07/25 History Allergy/AdvReac Type Severity Reaction Status Date / Time adhesive tape Allergy Intermediate Rash Verified 05/07/25 16:30 latex Allergy Rash Verified 05/07/25 16:30 levofloxacin (From Levaquin) Allergy Hives Verified 05/07/25 16:30 meloxicam Allergy dizzy Verified 05/07/25 16:30 ondansetron (From Zofran) Allergy Hives Verified 05/07/25 16:30 buprenorphine AdvReac Severe syncope Verified 05/07/25 16:30 pregabalin (From Lyrica) AdvReac Severe syncope Verified 05/07/25 16:30 nalbuphine (From Nubain) AdvReac Other Verified 05/07/25 16:30 Family History Father Hypertension Hyperlipidemia Asthma Colon cancer Mother Cancer lung Aunt Breast cancer Aunt Breast cancer Grandmother Cancer ovarian Grandfather Cancer prostate Grandmother Cancer Uncle Hypertension Aunt Hypertension Sister Hypertension Asthma Surgical History History of appendectomy Hx of tubal ligation Hx of tonsillectomy Hx of cholecystectomy Social History household members: other details: Baby sister. 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 Will obtain from sister once she arrives. Review of Systems ROS Unobtainable: due to mental status EXAM Physical Exam Narrative Exam Narrative: Vital signs: Reviewed General: Alert and orientedx2. No acute distress HEENT: Head is normocephalic and atraumatic, sinuses nontender, pupils equal round and reactive. Nares are patent. Oropharynx and throat exams normal. Neck: Supple without lymphadenopathy nontender Cardiovascular: Regular rate and rhythm, no murmurs. No rubs or gallops. Normal S1 and S2 Respiratory: Clear to auscultation bilaterally. No wheezes, rales, rhonchi Abdominal: Soft and nontender. Normal bowel sounds. No guarding or rebound. Nonsurgical abdomen Extremities: No tenderness. No bruising. Normal range of motion. Normal sensation. Skin: No rash or redness. The rest of the physical exam is unremarkable Const Vital Signs: 05/07/25 16:22 05/07/25 16:25 05/07/25 16:31 Temperature 97.6 F L Temperature Source Temporal Pulse Rate 78 63 Respiratory Rate 16 12 Blood Pressure 124/70 H 124/70 H Blood Pressure Mean 88 88 Pulse Ox 96 96 Oxygen Delivery Method Room Air Room Air 05/07/25 16:34 05/07/25 16:55 05/07/25 17:22 Temperature Temperature Source Pulse Rate 63 63 Respiratory Rate 17 15 Blood Pressure 130/90 H 127/63 H Blood Pressure Mean 103 84 Pulse Ox 96 99 Oxygen Delivery Method Room Air Room Air Room Air 05/07/25 17:25 05/07/25 17:30 05/07/25 17:32 Temperature 97.6 F L Temperature Source Pulse Rate 63 60 60 Respiratory Rate 15 15 15 Blood Pressure 127/63 H 127/63 H 127/63 H Blood Pressure Mean 84 84 84 Pulse Ox 99 99 99 Oxygen Delivery Method Room Air 05/07/25 18:00 05/07/25 18:00 Temperature Temperature Source Pulse Rate 60 60 Respiratory Rate Blood Pressure 87/60 L 124/67 H Blood Pressure Mean 69 86 Pulse Ox 97 98 Oxygen Delivery Method Room Air Room Air MDM MDM MDM Narrative Medical decision making narrative: Patient is a 51-year-old female presenting the emergency department as a stroke team activation in the field. Patient was seen immediately on arrival. NIH of 11 on my evaluation. Last known well 2300 last evening. She is outside the window for TNK. CT and CTA imaging ordered given concern for possible LVO given high NIH. Differential includes but is not limited to: Ischemic versus hemorrhagic stroke, LVO, seizure, metabolic derangement, less likely meningitis or encephalitis given she is afebrile and this was fairly sudden in onset History initially obtained from EMS however will obtain additional history from sister once she arrives. EKG shows atrial paced rhythm with a bifascicular block. Appears similar to EKG obtained on April 06, 2025. CBC with WBC of 11.1 and normal hemoglobin. BMP with mild hypokalemia 3.1 which was replaced. Lactic within normal limits, less likely seizure that is causing her symptoms. Patient's seizure medication levels were sent. Glucose within normal limits at 92. CT brain with no evidence of acute intracranial abnormality. CTA with no LVO. Spoke to on-call telestroke physician, Dr. John Kurtz, who recommend admission for MRI and further stroke management. Patient admitted to Dr. Luu for further management. Clinical impression Stroke like symptoms History & Record Review Discussion w/independent historian: EMS personnel, Patient and Family Lab Data Attestation: I reviewed the patient's lab results. Labs: Laboratory Results - last 24 hr 05/07/25 05/07/25 05/07/25 08:47 16:25 16:50 WBC 11.1 H RBC 3.95 L Hgb 12.2 Hct 36.8 L MCV 93.2 MCH 30.9 MCHC 33.2 RDW Std Deviation 51.5 H RDW Coeff of He 14.9 H Plt Count 211 MPV 10.4 Immature Gran % (Auto) 0.400 Neut % (Auto) 75.7 H Lymph % (Auto) 15.8 L Bradley % (Auto) 6.9 Eos % (Auto) 0.9 Baso % (Auto) 0.3 Absolute Neuts (auto) 8.4 H Absolute Lymphs (auto) 1.76 Nucleated RBC % 0 PT 13.8 INR 1.0 APTT 26.4 Sodium 138 Potassium 3.1 L Chloride 107 Carbon Dioxide 20.8 L Anion Gap 10 BUN 8 Creatinine 0.77 Estim Creat Clear Calc 89.44 Est GFR (MDRD) Non-Af 89 BUN/Creatinine Ratio 9.8 L Glucose 92 Lactic Acid < 1.0 Calcium 8.6 Troponin T High Sens 21 H D Troponin T Hi Sens 4Hr 16 H Radiography Diagnostic Testing: Clinical Impression(s) from Imaging Studies Brain CT 05/07/25 16:25 IMPRESSION: No evidence of acute intracranial pathology. No large vessel arterial occlusion or hemodynamically significant stenosis. Stroke Alert: The critical findings above were relayed directly by me by telephone to Joselin Dillon on 05/07/2025 at 4:02 pm with readback verification. Reading Location: [facility] Head/Neck CTA 05/07/25 16:26 IMPRESSION: No evidence of acute intracranial pathology. No large vessel arterial occlusion or hemodynamically significant stenosis. Stroke Alert: The critical findings above were relayed directly by me by telephone to Joselin Dillon on 05/07/2025 at 4:02 pm with readback verification. Reading Location: [facility] Chest X-Ray 05/07/25 17:15 IMPRESSION: Mild pulmonary vascular congestion. Mild cardiomegaly. No focal consolidations. Reading Location: [facility] Discharge Plan Disposition Disposition: Acute Care Hospital [facility] Discharge Date/Time: 05/07/25 19:25 NIHSS NIHSS 1a. Level of Consciousness: 0 - Alert; keenly responsive 1b. LOC Questions: 0 - Answers BOTH questions correctly 1c. LOC Commands: 0 - Performs BOTH tasks correctly 2. Best Gaze: 0 - Normal 3. Visual: 0 - No visual loss 4. Facial Palsy: 2 - Partial paralysis (total or near-total paralysis of lower face) 5a. Left Arm: 0 - No drift; arm holds 90 (or 45) degrees for full 10 seconds 5b. Right Arm: 1 - Drift; arm drifts downward but doesn?t hit the bed 6a. Left Le - No effort against gravity; leg falls to bed immediately 6b. Right Le - No effort against gravity; leg falls to bed immediately 7. Limb Ataxia: 0 - Absent 8. Sensory: 1 - [id number] sensory loss; 9. Best Language: 0 - No aphasia; normal 10. Dysarthria: 1 = [id number] dysarthria; 11. Extinction and Inattention: 0 - No abnormality Total: 11 Stroke Questions Stroke Team Activated: Yes Reviewed Inclusion/Exclusion criteria: Yes IV Thrombolytic Administered: No (due to timing)
[2025-05-07 16:43] LABS: Hematocrit 36.8 % (37-47); Hemoglobin 12.2 g/dL (12.0-15.0); Immature Granulocytes Count 0.040 X10^3/uL (0.0-0.0); Mean Corp Hgb Conc 33.2 g/dL (32-36); Mean Corpuscular Volume 93.2 fL (81-99); Mean Platelet Vol. 10.4 fl (6.2-12.0); NRBC Flagged by Analyzer 0 % (0-5); Platelet Count 211 K/mm3 (150-450); RBC Distribution Width CV 14.9 % (11.6-14.6); RBC Distribution Width SD 51.5 fl (35.1-43.9); Red Blood Count 3.95 M/mm3 (4.2-5.4); White Blood Count 11.1 K/mm3 (4.4-11.0)
[2025-05-07 16:55] LABS: Anion Gap 10 (5-15); BUN 8 mg/dL (4-19); BUN/Creat Ratio 9.8 RATIO (10-20); Calcium,Total 8.6 mg/dL (7.6-11.0); Carbon Dioxide 20.8 mmol/L (21.0-32.0); Chloride 107 mmol/L (98-108); Estimated Creatinine Clearance 89.44 ml/min (50-250); Glucose 92 mg/dL (70-99); Potassium 3.1 mmol/L (3.3-5.1); Troponin T High Sensitivity 21 ng/L (<=14)
[2025-05-07 17:06] LABS: Prothrombin Time (Protime)PT. 13.8 SECONDS (11.7-14.9)
[2025-05-07 17:07] LABS: Partial Thromboplast Time 26.4 Seconds (24.1-36.2)
--- NOTE | 2025-05-07 17:15 | RAD_ITS ---
PROCEDURE: RAD/Chest PA and Lateral
[2025-05-07] MEDS: Potassium Chloride 10mEq/100mL 10 MEQ/100 ML IV.SOLN. 100 MEQ IV BOLUS ×2 (17:36→18:42)
--- NOTE | 2025-05-07 17:55 | PCM.HP.STD ---
HPI - General General Date of Admission: 05/07/25 Date of Service: 05/07/25 Chief Complaint: Altered mental status HPI Narrative FAM VINSON, is a 59 F who presented to [facility] ED on 05/07/2025 with altered mental status. Patient has complicated neuro history, follows with Dr. Santoro. Last office visit on 04/23, see note for further details. In short, history significant for epilepsy, migraine headaches, chronic neck and back pain, type 2 diabetes with neuropathy and concern for possible central demyelinating disease. She was noted on a prior MRI brain to have a pattern concerning for central demyelinating disease. She had a lumbar puncture at that time that showed elevated myelin basic protein but 0 oligoclonal bands. MRI brain on 12/21/2024 showed no abnormal enhancement and pattern of white matter lesions was unchanged. MRI brain again in January was unchanged from previous. She was hospitalized here in late March for altered mentation, slurred speech and gait difficulty following a seizure. Plan was for MRI brain then but this happened over the weekend and patient opted to be discharged prior to the MRI. She presented today as a stroke alert. Last known well was last night at 2300. When sister went to check on her this morning she noted the patient was not able to feed herself which is abnormal for her. In the ED patient was normotensive, in normal sinus rhythm and stable on room air at rest. Labs were fairly benign. CT brain and CTA head/neck were unremarkable. Given her altered mentation, hospitalist was contacted for admission. I saw the patient at bedside in the ED, sister was present. Patient was sitting back in bed comfortably, in no acute distress. She could make eye contact with me but was alert only to person and place but not time. She was not answering most questions appropriately for me. However, she was able to participate in a full neuro exam for me. Will be admitted for further management. [facility] Medical History Slurred speech Anxiety COPD (chronic obstructive pulmonary disease) Debility Seizure Myalgia Low back pain Diabetes mellitus, type 2 Presence of cardiac pacemaker Sick sinus syndrome History of COPD History of diabetes mellitus Syncope Symptomatic bradycardia Hx of type 2 diabetes mellitus Epilepsy Palpitations Hyperammonemia Cerebrovascular disease Dorsalgia Neck pain Migraine headache without aura Polyneuropathy Generalized weakness General weakness Former smoker Asthma Seizures Multiple sclerosis Demyelinating disease of central nervous system Epilepsy Generalized weakness Recurrent falls Recurrent syncope Depression Migraines Multiple falls Gastroenteritis History of CVA (cerebrovascular accident) GERD (gastroesophageal reflux disease) Obesity Former tobacco use Seizure disorder Allergic rhinitis Chronic migraine Orthostasis HTN (hypertension) COVID-19 virus infection Bradycardia Psoriasis Hypercholesterolemia Home Medications ?Medication ?Instructions ?Recorded ?Last Taken ?Type insulin syr/ndl U100 half shirley 0.5 09/03/22 Unknown History mL 31 gauge x 5/16 (Droplet Insulin Syringe (half unit)) dextromethorphan 20 mg-quinidine 1 cap PO BID DEPRESSION 02/06/23 05/07/25 History 10 mg capsule (Nuedexta) Lactobacillus rhamnosus GG 10 1 cap PO DAILY recurrent uti 05/09/24 05/07/25 History billion cell capsule (Culturelle) ascorbic acid (vitamin C) 500 mg 500 mg PO QDAY see pcp 05/09/24 05/07/25 History tablet cranberry fruit 450 mg tablet 450 mg PO TID see pcp 05/09/24 05/07/25 History flash glucose scanning reader #1 ea 10/30/24 Unknown Rx (FreeStyle Es 2 [place]) flash glucose sensor (FreeStyle #3 ea 10/30/24 Unknown Rx Es 2 Sensor kit) handicap placard #1 ea 11/15/24 Unknown Rx omeprazole 40 mg capsule,delayed 40 mg PO DAILY GERD #90 caps 01/03/25 05/07/25 Rx release melatonin 10 mg capsule 10 mg PO QHS sleep 01/19/25 05/06/25 History 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 sensor (FreeStyle #3 ea 02/15/25 Unknown Rx Es 3 Sensor device) 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,tax form preparer,cont #1 ea 02/15/25 Unknown Rx (FreeStyle Es 3 [place]) buspirone 5 mg tablet 5 mg PO TID PRN anxiety #90 tabs 02/15/25 05/07/25 Rx cephalexin 250 mg capsule 250 mg PO QHS recurrent UTI #90 02/15/25 05/06/25 Rx caps insulin glargine 100 unit/mL (3 30 unit (0.3 mL) subcut QAM 02/15/25 05/07/25 Rx mL) subcutaneous pen diabetes #15 mL hydroxyzine HCl 25 mg tablet 50 mg PO QHS PRN anxiety 02/17/25 05/06/25 History albuterol sulfate 2.5 mg/3 mL 2.5 mg (3 mL) inhalation Q2H PRN 03/02/25 Unknown Rx (0.083 %) solution for nebulization PRN Shortness Of Breath 30 days #360 mL aspirin 81 mg tablet,delayed 81 mg PO QDAY 03/08/25 05/07/25 History release (Adult Aspirin Regimen) atorvastatin 80 mg tablet 80 mg PO QHS cholesterol #90 tabs 03/08/25 05/06/25 Rx carbamazepine 200 mg tablet 200 mg PO TID seizures #90 tabs 03/18/25 05/07/25 Rx (Tegretol) gabapentin 800 mg tablet 800 mg PO QHS #30 tabs 03/18/25 05/06/25 Rx galcanezumab-gnlm 120 mg/mL 120 mg subcut QMONTH migraines #1 03/18/25 04/11/25 Rx subcutaneous pen injector mL (Emgality Pen) ibuprofen 600 mg tablet 600 mg PO TID PRN headache/pain 03/18/25 05/07/25 Rx #90 tabs ubrogepant 100 mg tablet (Ubrelvy) 100 mg PO .COMPLEX MIGRAINE #14 03/18/25 Unknown Rx tabs topiramate 100 mg tablet 100 mg PO BID #60 tabs 03/28/25 05/07/25 Rx gabapentin 400 mg capsule 400 mg PO BID polyneuropathy 04/06/25 05/07/25 History albuterol sulfate 90 mcg/actuation 2 puff inhalation Q6H PRN Wheezing 05/07/25 Unknown History aerosol inhaler brexpiprazole 0.5 mg tablet 0.5 mg PO DAILY 05/07/25 05/06/25 History (Rexulti) duloxetine 60 mg capsule,delayed 60 mg PO DAILY 05/07/25 05/07/25 History release ferrous sulfate 325 mg (65 mg 325 mg PO BID 05/07/25 05/07/25 History iron) tablet (Prieto-Time) fluticasone furoate 200 1 inh inhalation DAILY 05/07/25 05/07/25 History mcg/actuation blister powder for inhalation (Arnuity Ellipta) mirtazapine 30 mg tablet 30 mg PO QHS 05/07/25 05/06/25 History onabotulinumtoxinA 100 unit 200 unit IM .COMPLEX Migraine 05/07/25 03/20/25 History solution for injection (Botox) headache w/o aura (ICD 10: G43.009) semaglutide 0.25 mg or 0.5 mg (2 0.25 mg subcut QWEEK 05/07/25 05/03/25 History mg/3 mL) subcutaneous pen injector (Ozempic) tizanidine 2 mg tablet 2 mg PO TID muscle spasm 05/07/25 05/07/25 History Allergy/AdvReac Type Severity Reaction Status Date / Time adhesive tape Allergy Intermediate Rash Verified 05/07/25 16:30 latex Allergy Rash Verified 05/07/25 16:30 levofloxacin (From Levaquin) Allergy Hives Verified 05/07/25 16:30 meloxicam Allergy dizzy Verified 05/07/25 16:30 ondansetron (From Zofran) Allergy Hives Verified 05/07/25 16:30 buprenorphine AdvReac Severe syncope Verified 05/07/25 16:30 pregabalin (From Lyrica) AdvReac Severe syncope Verified 05/07/25 16:30 nalbuphine (From Nubain) AdvReac Other Verified 05/07/25 16:30 Family History Father Hypertension Hyperlipidemia Asthma Colon cancer Mother Cancer lung Aunt Breast cancer Aunt Breast cancer Grandmother Cancer ovarian Grandfather Cancer prostate Grandmother Cancer Uncle Hypertension Aunt Hypertension Sister Hypertension Asthma Surgical History History of appendectomy Hx of tubal ligation Hx of tonsillectomy Hx of cholecystectomy Social History household members: other details: Baby sister. 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 Smoking Status: Never smoker alcohol intake: never substance use type: does not use do you feel safe at home: Yes ROS Review of Systems ROS Unobtainable: due to mental status Vital Signs Vital Signs Vital Signs: 05/07/25 16:22 05/07/25 16:25 05/07/25 16:31 Temperature 97.6 F L Temperature Source Temporal Pulse Rate 78 63 Respiratory Rate 16 12 Blood Pressure 124/70 H 124/70 H Blood Pressure Mean 88 88 Pulse Ox 96 96 Oxygen Delivery Method Room Air Room Air 05/07/25 16:34 05/07/25 16:55 05/07/25 17:22 Temperature Temperature Source Pulse Rate 63 63 Respiratory Rate 17 15 Blood Pressure 130/90 H 127/63 H Blood Pressure Mean 103 84 Pulse Ox 96 99 Oxygen Delivery Method Room Air Room Air Room Air 05/07/25 17:25 05/07/25 17:30 05/07/25 17:32 Temperature 97.6 F L Temperature Source Pulse Rate 63 60 60 Respiratory Rate 15 15 15 Blood Pressure 127/63 H 127/63 H 127/63 H Blood Pressure Mean 84 84 84 Pulse Ox 99 99 99 Oxygen Delivery Method Room Air Weight Weight: 88.904 kg Body Mass Index (BMI) 31.6 Physical Exam Const alert and no apparent distress Constitutional Narrative: Upper middle-aged female, class III obesity, alert and oriented to person and place but not time, not answering most questions appropriately, otherwise sitting back in bed fairly comfortably and in no acute distress. General Appearance: cooperative and comfortable Orientation / Consciousness: confused HEENT normocephalic, head/scalp atraumatic, hearing grossly normal bilaterally, nasal mucous membranes and turbinates normal and moist oral mucous membranes Eyes PERRL, EOMs intact bilaterally and conjunctivae normal Neck full ROM Chest inspection of chest normal Resp normal respiratory effort, normal air movement, no use of accessory muscles and clear to auscultation bilaterally Cardio regular rate, regular rhythm, no murmurs and peripheral pulses 2+ throughout GI normal to inspection, nondistended, normoactive bowel sounds, soft to palpation, non-tender and non-distended Back/Spine normal ROM Extremity normal to inspection, full ROM and no pedal edema Skin no rashes or lesions noted Neuro moves all extremities and no focal motor deficits Motor Exam: strength 5/5 throughout Results Lab / Micro Data 05/07/25 16:25 05/07/25 16:25 Labs: Laboratory Results - last 24 hr 05/07/25 16:25: WBC 11.1 H, RBC 3.95 L, Hgb 12.2, Hct 36.8 L, MCV 93.2, MCH 30.9, MCHC 33.2, RDW Std Deviation 51.5 H, RDW Coeff of He 14.9 H, Plt Count 211, MPV 10.4, Immature Gran % (Auto) 0.400, Neut % (Auto) 75.7 H, Lymph % (Auto) 15.8 L, Mower % (Auto) 6.9, Eos % (Auto) 0.9, Baso % (Auto) 0.3, Absolute Neuts (auto) 8.4 H, Absolute Lymphs (auto) 1.76, Nucleated RBC % 0, PT 13.8, INR 1.0, APTT 26.4, Sodium 138, Potassium 3.1 L, Chloride 107, Carbon Dioxide 20.8 L, Anion Gap 10, BUN 8, Creatinine 0.77, Estim Creat Clear Calc 89.44, Est GFR (MDRD) Non-Af 89, BUN/Creatinine Ratio 9.8 L, Glucose 92, Calcium 8.6, Troponin T High Sens 21 H D 05/07/25 16:50: Lactic Acid < 1.0 Imaging Radiology Impression Brain CT 05/07/25 16:25 IMPRESSION: No evidence of acute intracranial pathology. No large vessel arterial occlusion or hemodynamically significant stenosis. Stroke Alert: The critical findings above were relayed directly by me by telephone to Joselin Dillon on 05/07/2025 at 4:02 pm with readback verification. Reading Location: [facility] Head/Neck CTA 05/07/25 16:26 IMPRESSION: No evidence of acute intracranial pathology. No large vessel arterial occlusion or hemodynamically significant stenosis. Stroke Alert: The critical findings above were relayed directly by me by telephone to Joselin Dillon on 05/07/2025 at 4:02 pm with readback verification. Reading Location: [facility] Chest X-Ray 05/07/25 17:15 IMPRESSION: Mild pulmonary vascular congestion. Mild cardiomegaly. No focal consolidations. Reading Location: [facility] Assessment & Plan Assessment/Plan (1) Altered mental status: QUALIFIERS: Altered mental status type: unspecified Qualified Code(s): R41.82 - Altered mental status, unspecified PLAN: Plan Patient is a 59-year-old female who presented to [facility] ED on 05/07/2025 with altered mental status. 1. Acute encephalopathy of unclear etiology ? Admit under observation status to PCU. Neurology consulted. History of epilepsy and migraine headaches as below, follows with Dr. Santoro, see office note from 04/23 for further details. Alert and oriented to person and place but not time on admission and not answering most questions appropriately. CT brain and CT head/neck unremarkable. Unclear etiology for patient's current episode. Notably there was recent concern for a yeast infection given urine culture positive for yeast and she was treated with a 14-day course of Diflucan. UA on admit unremarkable. MRI brain with and without contrast and EEG ordered. Continue home medications as below. Appreciate further neurology recommendations. 2. History of epilepsy, history of migraine headaches ? Follows with outpatient neurology as above. Continue home topiramate and carbamazepine. 3. Type 2 diabetes mellitus with diabetic neuropathy ? Blood glucose 92 on admit. Most recent A1c 6.7% on 04/06. Will treat with reduced dose of Lantus 15 units in the morning with sliding scale insulin with meals, adjust as needed. Continue home gabapentin. 4. Anxiety/depression ? Stable. Continue home duloxetine and mirtazapine. 5. GERD ? Continue home PPI. 6. History of symptomatic bradycardia s/p pacemaker placement ? Had pacemaker placement on 01/30. Stable in paced rhythm on this admission. 7. Reported history of CVA ? Continue home aspirin and statin. 8. Class I obesity ? BMI 33 on admit. Complicates hospital course and care. DVT prophylaxis: Lovenox CODE STATUS: Full code, verified Expected disposition: TBD Total clinical time spent by myself addressing the patient's medical issues, reviewing all the data, and collaborating with patient's care team: 79 minutes. Charges/Coding Visit Charges Inpatient E&M: 59409 Init Hosp L3
[2025-05-07 18:24] LABS: Mucous, Urine 0 SEEN /hpf (<or=2+); Red Blood Cells-Urine 0 SEEN /hpf (0-5); Squamous Epithelial Cells - UA 0 SEEN /hpf (5-10)
[2025-05-07 18:34] LABS: Color, Urine Yellow (Yellow); Glucose, Dipstick Normal (Normal); Ketone-Dipstick Negative (Negative); Leukocyte Esterase-Dipstick Negative /ul (Negative); Nitrite-Dipstick Negative (Negative); Occult Blood-Urine Negative /ul (Negative); Protein-Dipstick 15 mg/dl (Negative); Specific Gravity, Urine 1.005 (1.002-1.030); Urine Bilirubin Dipstick Negative (Negative)
--- NOTE | 2025-05-07 18:44 | CM.ED ---
Social work Reason for referral: stroke alert SW responded to stroke alert called and patient was in imaging already. Patient's sister, Debbie, was not bedside initially, so SW waited. SW entered patient's room and Debbie immediately stated, we made it a month before coming back. Debbie stated not knowing if patient's episode today was a stroke or not, but Debbie stated patient is beginning to sound more and more like a medically handicapped person. Patient returned from imaging and was observed not being able to answer any questions, though patient did relax patient's hands when Debbie asked patient to do so. When nursing came in to ask some questions, Debbie asked this SW to step out in the hallway. Debbie stated being in need of HHC and aide services because Debbie cannot do it all. JAYA stated being able to pass this request on to the acute SW/RNCM team to help facilitate. Debbie denied further needs at this time. Melissa Bonds, NURSE EXTERN, PAPER WRAPPING MACHINE OPERATOR
[2025-05-07 18:57] LABS: Troponin T High Sens 2 HR 21 ng/L (<=14)
[2025-05-07 21:27] LABS: Troponin T High Sens 4 HR 16 ng/L (<=14)
[2025-05-07] MEDS: MELATONIN 10 MG TABLET PO (23:18)
[2025-05-08] VITALS (12 sets, daily range): BP systolic 97–171; BP diastolic 60–83; PULSE 60–100; RESP 14–18; TEMP 36–36.9; O2SAT 92–100; BMI 68.9
[2025-05-08] MEDS: 0.9% Saline Lock 10 ML Syringe IV ×2 (06:11→14:30)
[2025-05-08] MEDS: Budesonide Respules 0.5 MG/2 ML AMPUL.NEB. INHALATION ×2 (06:36→20:02)
[2025-05-08] MEDS: Albuterol 2.5 MG/3 ML VIAL.NEB. INHALATION ×3 (06:36→20:08)
[2025-05-08] MEDS: Aspirin E.C. 81 MG Tablet PO (08:32)
[2025-05-08] MEDS: Lactobacillis Acidophilus 1 CAP PO (08:33)
[2025-05-08] MEDS: Insulin Glargine-YFGN 100 UNIT/ML Pen 15 UNIT SC (08:35)
--- NOTE | 2025-05-08 11:43 | CASEMGMT ---
Social Work SW spoke with the sister Debbie regarding the patient DC to a SNF. Debbie asked JAYA to leave the list of SNFs in the patients room and also email her a list. SW asked Debbie to chose and rate her top 3 to 4 SNF choices. RAVIN Louise
--- NOTE | 2025-05-08 11:55 | CASEMGMT ---
Addendum entered by Michelle Pereyra 05/08/25 15:12: Spoke with pts sister/HC POA to review [facility] and she stated that she did not receive snf list. Email address that list was sent to is incorrect. Correct email address is [email or web address]. List resent. Snf choices are 1. [facility], [facility]. [facility], [facility]. [facility] SW updated. Michelle Pereyra DC Planning Asst. Original Note: Discharge Planning A list of?SNF providers including quality and resource use data and consistent with the patient's preferred geographic region, medical needs, and insurance network was created in [employer] Guide.? This list was provided to the and was emailed to pts sister at [email or web address]. Michelle Pereyra, Discharge Planning Asst.
--- NOTE | 2025-05-08 12:43 | CASEMGMT ---
Social Work SW left a list of?SNF providers including quality and resource use data and consistent with the patient's preferred geographic region, medical needs, and insurance network created in [employer] Guide in the patients room for the patient and her sister to review. RAVIN Fernandes
--- NOTE | 2025-05-08 13:15 | CON.PCM.NE_ITS ---
Assessment and Plan: Neuro
--- NOTE | 2025-05-08 13:15 | NEURO.CONS ---
Assessment and Plan: Neuro Assessment/Plan FAM VINSON is a 59 F with a past medical history of neuropathy, seizure, strokes, being evaluated by Teleneurology for sudden transient resolving AMS. She has R sided weakness as well. No clear report of seizure but cannot rule out at this point. No clear provoking factors as patient states she does take her meds and sister apparently manages for her. Diagnosis: post-ictal seizure vs stroke Plan: - continue her home ASM carbamazepine, topamax, and xcopri - MRI Brain pending If no stroke on imaging, concerning for breakthrough seizures - will consider increasing her carbamazepine. I personally attended this patient and spent a total time of 45 minutes evaluating this patient including clinical assessment, review of chart, medical history imaging, and determining appropriate treatment and workup. HPI Consult Data Date of Consult: 05/08/25 HPI Narrative HPI Narrative: FAM VINSON, is a 59 F who presented to [facility] ED on 05/07/2025 with altered mental status. Patient has complicated neuro history, follows with Dr. Santoro. Last office visit on 04/23, see note for further details. In short, history significant for epilepsy, migraine headaches, chronic neck and back pain, type 2 diabetes with neuropathy and concern for possible central demyelinating disease. She was noted on a prior MRI brain to have a pattern concerning for central demyelinating disease. She had a lumbar puncture at that time that showed elevated myelin basic protein but 0 oligoclonal bands. MRI brain on 12/21/2024 showed no abnormal enhancement and pattern of white matter lesions was unchanged. MRI brain again in January was unchanged from previous. She was hospitalized here in late March for altered mentation, slurred speech and gait difficulty following a seizure. Plan was for MRI brain then but this happened over the weekend and patient opted to be discharged prior to the MRI. She presented today as a stroke alert. Last known well was last night at 2300. When sister went to check on her this morning she noted the patient was not able to feed herself which is abnormal for her. In the ED patient was normotensive, in normal sinus rhythm and stable on room air at rest. Labs were fairly benign. CT brain and CTA head/neck were unremarkable. Given her altered mentation, hospitalist was contacted for admission. I saw the patient at bedside in the ED, sister was present. Patient was sitting back in bed comfortably, in no acute distress. She could make eye contact with me but was alert only to person and place but not time. She was not answering most questions appropriately for me. However, she was able to participate in a full neuro exam for me. Will be admitted for further management. Neurologic History Pt's sister noticed was off. Patient also noticed that something was off. Patient feels a little better but not doing well. Patient states it is really hard to ....and then cannot answer. Will have intermittent difficulty getting words out. She was having R sided weakness overnight but today is variable. PAtient states she had a seizure. Pt states she passed out and thinks that her sister is trying to put her away. Denies numbness, tingling, weakness. Endorses a headache on the back of her head. She states her MCKEON only started today and has them twice a day but not yesterday. Patient takes the seizure meds religiously but cannot say which meds how often but states she takes them every day. ASM regiment per note: - Carbamazepine 200 mg TID will be continued. - Topiramate 50mg BID will be continued. - Xcopri 200mg daily will be continued. - Levocarnitine 330mg BID will be continued for her hyperammonemia. -? General: Laying comfortably in bed; in no acute distress. -? HENT: Normal oropharynx and mucosa. Normal external appearance of ears and nose. Exophthalmos. -? Neck: Supple, no pain or tenderness -? CV:? No peripheral edema. -? Pulmonary:? Normal respiratory effort. -? Ext: No cyanosis, edema, or deformity -? Skin: No rash. Normal palpation of skin.? -? Musculoskeletal: full range of motion; no joint tenderness. Normal digits and nails by inspection. No clubbing. -? NEURO: -? Mental Status: The patient was alert and oriented to time and place but very poor concentration -? Language: speech is dysarthric.? Naming, repetition, fluency, and comprehension intact. -? Cranial Nerves: EOMI, visual mcintosh full, slight R nasolabial fold flattening, facial sensation intact -? Motor: LUE and LLE antigravity b/l without drift; RUE and RLE with drift but does not hit bed -? Sensation- Intact to light touch bilaterally -? Coordination: No dysmetria on [id number], finger follow finger or [id number]. -? Gait- deferred [facility] Medical History Slurred speech Anxiety COPD (chronic obstructive pulmonary disease) Debility Seizure Myalgia Low back pain Diabetes mellitus, type 2 Presence of cardiac pacemaker Sick sinus syndrome History of COPD History of diabetes mellitus Syncope Symptomatic bradycardia Hx of type 2 diabetes mellitus Epilepsy Palpitations Hyperammonemia Cerebrovascular disease Dorsalgia Neck pain Migraine headache without aura Polyneuropathy Generalized weakness General weakness Former smoker Asthma Seizures Multiple sclerosis Demyelinating disease of central nervous system Epilepsy Generalized weakness Recurrent falls Recurrent syncope Depression Migraines Multiple falls Gastroenteritis History of CVA (cerebrovascular accident) GERD (gastroesophageal reflux disease) Obesity Former tobacco use Seizure disorder Allergic rhinitis Chronic migraine Orthostasis HTN (hypertension) COVID-19 virus infection Bradycardia Psoriasis Hypercholesterolemia Home Medications ?Medication ?Instructions ?Recorded ?Last Taken ?Type insulin syr/ndl U100 half shirley 0.5 09/03/22 Unknown History mL 31 gauge x 5/16 (Droplet Insulin Syringe (half unit)) dextromethorphan 20 mg-quinidine 1 cap PO BID DEPRESSION 02/06/23 05/07/25 History 10 mg capsule (Nuedexta) Lactobacillus rhamnosus GG 10 1 cap PO DAILY recurrent uti 05/09/24 05/07/25 History billion cell capsule (Culturelle) ascorbic acid (vitamin C) 500 mg 500 mg PO QDAY see pcp 05/09/24 05/07/25 History tablet cranberry fruit 450 mg tablet 450 mg PO TID see pcp 05/09/24 05/07/25 History flash glucose scanning reader #1 ea 10/30/24 Unknown Rx (DaojiaStyle Es 2 Mosca) flash glucose sensor (FreeStyle #3 ea 10/30/24 Unknown Rx Es 2 Sensor kit) handicap placard #1 ea 11/15/24 Unknown Rx omeprazole 40 mg capsule,delayed 40 mg PO DAILY GERD #90 caps 01/03/25 05/07/25 Rx release melatonin 10 mg capsule 10 mg PO QHS sleep 01/19/25 05/06/25 History 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 sensor (FreeStyle #3 ea 02/15/25 Unknown Rx Es 3 Sensor device) 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,striper spray gun,cont #1 ea 02/15/25 Unknown Rx (FreeStyle Es 3 Mosca) buspirone 5 mg tablet 5 mg PO TID PRN anxiety #90 tabs 02/15/25 05/07/25 Rx cephalexin 250 mg capsule 250 mg PO QHS recurrent UTI #90 02/15/25 05/06/25 Rx caps insulin glargine 100 unit/mL (3 30 unit (0.3 mL) subcut QAM 02/15/25 05/07/25 Rx mL) subcutaneous pen diabetes #15 mL hydroxyzine HCl 25 mg tablet 50 mg PO QHS PRN anxiety 02/17/25 05/06/25 History albuterol sulfate 2.5 mg/3 mL 2.5 mg (3 mL) inhalation Q2H PRN 03/02/25 Unknown Rx (0.083 %) solution for nebulization PRN Shortness Of Breath 30 days #360 mL aspirin 81 mg tablet,delayed 81 mg PO QDAY 03/08/25 05/07/25 History release (Adult Aspirin Regimen) atorvastatin 80 mg tablet 80 mg PO QHS cholesterol #90 tabs 03/08/25 05/06/25 Rx carbamazepine 200 mg tablet 200 mg PO TID seizures #90 tabs 03/18/25 05/07/25 Rx (Tegretol) gabapentin 800 mg tablet 800 mg PO QHS #30 tabs 03/18/25 05/06/25 Rx galcanezumab-gnlm 120 mg/mL 120 mg subcut QMONTH migraines #1 03/18/25 04/11/25 Rx subcutaneous pen injector mL (Emgality Pen) ibuprofen 600 mg tablet 600 mg PO TID PRN headache/pain 03/18/25 05/07/25 Rx #90 tabs ubrogepant 100 mg tablet (Ubrelvy) 100 mg PO .COMPLEX MIGRAINE #14 03/18/25 Unknown Rx tabs topiramate 100 mg tablet 100 mg PO BID #60 tabs 03/28/25 05/07/25 Rx gabapentin 400 mg capsule 400 mg PO BID polyneuropathy 04/06/25 05/07/25 History albuterol sulfate 90 mcg/actuation 2 puff inhalation Q6H PRN Wheezing 05/07/25 Unknown History aerosol inhaler brexpiprazole 0.5 mg tablet 0.5 mg PO DAILY 05/07/25 05/06/25 History (Rexulti) duloxetine 60 mg capsule,delayed 60 mg PO DAILY 05/07/25 05/07/25 History release ferrous sulfate 325 mg (65 mg 325 mg PO BID 05/07/25 05/07/25 History iron) tablet (Prieto-Time) fluticasone furoate 200 1 inh inhalation DAILY 05/07/25 05/07/25 History mcg/actuation blister powder for inhalation (Arnuity Ellipta) mirtazapine 30 mg tablet 30 mg PO QHS 05/07/25 05/06/25 History onabotulinumtoxinA 100 unit 200 unit IM .COMPLEX Migraine 05/07/25 03/20/25 History solution for injection (Botox) headache w/o aura (ICD 10: G43.009) semaglutide 0.25 mg or 0.5 mg (2 0.25 mg subcut QWEEK 05/07/25 05/03/25 History mg/3 mL) subcutaneous pen injector (Ozempic) tizanidine 2 mg tablet 2 mg PO TID muscle spasm 05/07/25 05/07/25 History levocarnitine 330 mg tablet 330 mg PO BID blood clot 05/08/25 Unknown History Allergy/AdvReac Type Severity Reaction Status Date / Time adhesive tape Allergy Intermediate Rash Verified 05/07/25 16:30 latex Allergy Rash Verified 05/07/25 16:30 levofloxacin (From Levaquin) Allergy Hives Verified 05/07/25 16:30 meloxicam Allergy dizzy Verified 05/07/25 16:30 ondansetron (From Zofran) Allergy Hives Verified 05/07/25 16:30 buprenorphine AdvReac Severe syncope Verified 05/07/25 16:30 pregabalin (From Lyrica) AdvReac Severe syncope Verified 05/07/25 16:30 nalbuphine (From Nubain) AdvReac Other Verified 05/07/25 16:30 Family History Father Hypertension Hyperlipidemia Asthma Colon cancer Mother Cancer lung Aunt Breast cancer Aunt Breast cancer Grandmother Cancer ovarian Grandfather Cancer prostate Grandmother Cancer Uncle Hypertension Aunt Hypertension Sister Hypertension Asthma Surgical History History of appendectomy Hx of tubal ligation Hx of tonsillectomy Hx of cholecystectomy Social History household members: other details: Baby sister. 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 Smoking Status: Never smoker alcohol intake: never substance use type: does not use do you feel safe at home: Yes Vital Signs Vital Signs Vital Signs: 05/07/25 16:22 05/07/25 16:25 05/07/25 16:31 Temperature 97.6 F L Temperature Source Temporal Pulse Rate 78 63 Pulse Strength Respiratory Rate 16 12 Respiratory Effort Respiratory Depth Respiratory Pattern Blood Pressure 124/70 H 124/70 H Blood Pressure Mean 88 88 Blood Pressure Source Blood Pressure Position Blood Pressure Location Pulse Ox 96 96 Oxygen Delivery Method Room Air Room Air 05/07/25 16:34 05/07/25 16:55 05/07/25 17:22 Temperature Temperature Source Pulse Rate 63 63 Pulse Strength Respiratory Rate 17 15 Respiratory Effort Respiratory Depth Respiratory Pattern Blood Pressure 130/90 H 127/63 H Blood Pressure Mean 103 84 Blood Pressure Source Blood Pressure Position Blood Pressure Location Pulse Ox 96 99 Oxygen Delivery Method Room Air Room Air Room Air 05/07/25 17:25 05/07/25 17:30 05/07/25 17:32 Temperature 97.6 F L Temperature Source Pulse Rate 63 60 60 Pulse Strength Respiratory Rate 15 15 15 Respiratory Effort Respiratory Depth Respiratory Pattern Blood Pressure 127/63 H 127/63 H 127/63 H Blood Pressure Mean 84 84 84 Blood Pressure Source Blood Pressure Position Blood Pressure Location Pulse Ox 99 99 99 Oxygen Delivery Method Room Air 05/07/25 18:00 05/07/25 18:00 05/07/25 18:30 Temperature Temperature Source Pulse Rate 60 60 60 Pulse Strength Respiratory Rate 15 Respiratory Effort Respiratory Depth Respiratory Pattern Blood Pressure 87/60 L 124/67 H 115/105 H Blood Pressure Mean 69 86 108 Blood Pressure Source Blood Pressure Position Blood Pressure Location Pulse Ox 97 98 99 Oxygen Delivery Method Room Air Room Air Room Air 05/07/25 19:00 05/07/25 19:00 05/07/25 19:45 Temperature 97.8 F Temperature Source Oral Pulse Rate 64 64 68 Pulse Strength Respiratory Rate 13 13 16 Respiratory Effort Respiratory Depth Respiratory Pattern Blood Pressure 159/79 H 159/79 H 136/101 H Blood Pressure Mean 105 105 112 Blood Pressure Source Monitor Blood Pressure Position Semi-Fowlers Blood Pressure Location Right Arm Pulse Ox 96 96 97 Oxygen Delivery Method Room Air Room Air Room Air 05/07/25 20:04 05/07/25 21:17 05/07/25 22:00 Temperature Temperature Source Pulse Rate 61 Pulse Strength Normal (2+) Respiratory Rate Respiratory Effort Respiratory Depth Respiratory Pattern Blood Pressure Blood Pressure Mean Blood Pressure Source Blood Pressure Position Blood Pressure Location Pulse Ox 96 Oxygen Delivery Method Room Air 05/07/25 22:00 05/07/25 23:45 05/08/25 03:45 Temperature 97.8 F 97.8 F Temperature Source Oral Oral Pulse Rate 60 60 Pulse Strength Respiratory Rate 16 14 Respiratory Effort Normal Non-Labored Respiratory Depth Normal Respiratory Pattern Normal Blood Pressure 101/69 97/65 Blood Pressure Mean 79 75 Blood Pressure Source Monitor Monitor Blood Pressure Position Semi-Fowlers Semi-Fowlers Blood Pressure Location Right Arm Right Arm Pulse Ox 92 95 Oxygen Delivery Method Room Air Room Air Room Air 05/08/25 06:37 05/08/25 06:37 05/08/25 08:24 Temperature 96.8 F L Temperature Source Temporal Pulse Rate 65 60 Pulse Strength Respiratory Rate 16 16 Respiratory Effort Respiratory Depth Respiratory Pattern Normal Blood Pressure 104/60 Blood Pressure Mean 74 Blood Pressure Source Monitor Blood Pressure Position Semi-Fowlers Blood Pressure Location Left Arm Pulse Ox 98 100 Oxygen Delivery Method Room Air Room Air 05/08/25 12:15 05/08/25 12:43 Temperature 96.9 F L Temperature Source Temporal Pulse Rate 67 75 Pulse Strength Respiratory Rate 18 16 Respiratory Effort Respiratory Depth Respiratory Pattern Normal Blood Pressure 139/62 H Blood Pressure Mean 87 Blood Pressure Source Monitor Blood Pressure Position Sitting Blood Pressure Location Left Arm Pulse Ox 96 Oxygen Delivery Method Room Air Weight Weight: 193.8 kg Body Mass Index (BMI) 68.9 EEG Results Procedure Details EEG Procedure Details: FAM VINSON is a 59 year old F with a past medical history of , who presents for evaluation of Electroencephalogram on DATE at TIME Lab / Micro Data 05/07/25 16:25 05/07/25 16:25 Labs: Laboratory Results - last 24 hr 05/07/25 08:47: Troponin T Hi Sens 4Hr 16 H 05/07/25 16:25: WBC 11.1 H, RBC 3.95 L, Hgb 12.2, Hct 36.8 L, MCV 93.2, MCH 30.9, MCHC 33.2, RDW Std Deviation 51.5 H, RDW Coeff of He 14.9 H, Plt Count 211, MPV 10.4, Immature Gran % (Auto) 0.400, Neut % (Auto) 75.7 H, Lymph % (Auto) 15.8 L, Alger % (Auto) 6.9, Eos % (Auto) 0.9, Baso % (Auto) 0.3, Absolute Neuts (auto) 8.4 H, Absolute Lymphs (auto) 1.76, Nucleated RBC % 0, PT 13.8, INR 1.0, APTT 26.4, Sodium 138, Potassium 3.1 L, Chloride 107, Carbon Dioxide 20.8 L, Anion Gap 10, BUN 8, Creatinine 0.77, Estim Creat Clear Calc 89.44, Est GFR (MDRD) Non-Af 89, BUN/Creatinine Ratio 9.8 L, Glucose 92, Calcium 8.6, Troponin T High Sens 21 H D 05/07/25 16:50: Lactic Acid < 1.0 05/07/25 18:10: Urine Color Yellow, Urine Clarity Clear, Urine pH 7.0, Ur Specific Tok 1.005, Urine Protein 15 H, Urine Glucose (UA) Normal, Urine Ketones Negative, Urine Occult Blood Negative, Urine Nitrite Negative, Urine Bilirubin Negative, Urine Urobilinogen Normal, Ur Leukocyte Esterase Negative, Urine RBC 0 SEEN, Urine WBC 0 SEEN, Ur Squamous Epith Cells 0 SEEN, Urine Bacteria 0 SEEN, Urine Mucus 0 SEEN 05/07/25 18:34: Troponin T Hi Sens 2 Hr 21 H 05/07/25 23:27: POC Glucose 91 05/08/25 06:51: POC Glucose 80 Imaging Radiology Impression Brain CT 05/07/25 16:25 IMPRESSION: No evidence of acute intracranial pathology. No large vessel arterial occlusion or hemodynamically significant stenosis. Stroke Alert: The critical findings above were relayed directly by me by telephone to Joselin Dillon on 05/07/2025 at 4:02 pm with readback verification. Reading Location: [facility] Head/Neck CTA 05/07/25 16:26 IMPRESSION: No evidence of acute intracranial pathology. No large vessel arterial occlusion or hemodynamically significant stenosis. Stroke Alert: The critical findings above were relayed directly by me by telephone to Joselin Dillon on 05/07/2025 at 4:02 pm with readback verification. Reading Location: [facility] Chest X-Ray 05/07/25 17:15 IMPRESSION: Mild pulmonary vascular congestion. Mild cardiomegaly. No focal consolidations. Reading Location: [facility] Active Medications Active Medications Active Medications: Current Medications Generic Name Dose Route Start Last Admin Trade Name Freq PRN Reason Stop Dose Admin Acetaminophen 650 mg 05/07/25 19:57 Acetaminophen 325 Mg Tablet PO Q6H PRN PRN Pain 1-10 Or Fever>100.7 Albuterol Sulfate 2.5 mg 05/07/25 20:05 05/08/25 12:14 Albuterol 2.5 Mg/3 Ml Vial.Neb. INHALATION 2.5 mg Q6HWA.RT ELICIA Administration Ascorbic Acid 500 mg 05/08/25 10:00 05/08/25 08:34 Ascorbic Acid 500 Mg Tablet PO 500 mg DAILY ELICIA Administration Aspirin 81 mg 05/08/25 08:00 05/08/25 08:32 Aspirin E.C. 81 Mg Tablet PO 81 mg BREAKFAST ELICIA Administration Atorvastatin Calcium 80 mg 05/07/25 22:00 05/07/25 23:18 Atorvastatin Calcium 80 Mg Tablet PO 80 mg QHS ELICIA Administration Budesonide 0.5 mg 05/07/25 20:05 05/08/25 06:36 Budesonide Respules 0.5 Mg/2 Ml Ampul.Neb. INHALATION 0.5 mg Q12H.RT ELICIA Administration Buspirone HCl 5 mg 05/07/25 22:00 05/08/25 12:56 Buspirone 5 Mg Tablet PO 5 mg TID ELICIA Administration Carbamazepine 200 mg 05/07/25 22:00 05/08/25 12:56 Carbamazepine 200 Mg Tablet PO 200 mg TID ELICIA Administration Clarify Med Order 0 each 05/08/25 15:00 Clarify Order NOTE CLARIFY ELICIA Duloxetine HCl 60 mg 05/08/25 10:00 05/08/25 08:33 Duloxetine Hcl 60 Mg Capsule PO 60 mg DAILY ELICIA Administration Enoxaparin Sodium 40 mg 05/08/25 10:00 05/08/25 08:35 Enoxaparin 40 Mg/0.4 Ml Syringe SC 40 mg DAILY ELICIA Administration Ferrous Sulfate 325 mg 05/08/25 08:00 05/08/25 08:32 Ferrous Sulfate 325 Mg Tablet PO 325 mg DAILYCM ELICIA Administration Gabapentin 400 mg 05/08/25 08:00 05/08/25 12:53 Gabapentin 400 Mg Capsule PO 400 mg BIDBL ELICIA Administration Gabapentin 800 mg 05/07/25 22:00 05/07/25 23:21 Gabapentin 800 Mg Tablet PO 800 mg QHS ELICIA Administration Glucagon 1 mg 05/08/25 00:07 Glucagon 1 Mg/Ml Syringe IM X1 PRN Hypoglycemia Protocol Hydroxyzine Pamoate 50 mg 05/07/25 19:57 Hydroxyzine Jacqueline 25 Mg Capsule PO QHS PRN ELICIA Sodium Chloride 250 mls @ 15 mls/hr 05/07/25 20:08 IV .[id number] PRN Saline Flush Sodium Chloride 250 mls @ 15 mls/hr 05/07/25 20:08 IV .[id number] PRN Additional IVPB Infusion Dextrose 250 mls @ 0 mls/hr 05/08/25 00:07 Dextrose 10%-Water IV .Q0M PRN HYPOGLYCEMIA Protocol As Directed Insulin Glargine 15 unit 05/08/25 10:00 05/08/25 08:35 Insulin Glargine-Yfgn 100 Unit/Ml Pen SC 15 unit DAILY ELICIA Administration Protocol Insulin Human Lispro 0 unit 05/08/25 07:00 05/08/25 12:53 Insulin Lispro 100 Unit/Ml Insuln.Pen SC 1 unit ACHS ELICIA Administration Protocol Levocarnitine 330 mg 05/08/25 22:00 Levocarnitine 330 Mg Tablet PO BID ELICIA Melatonin 10 mg 05/07/25 22:00 05/07/25 23:18 Melatonin 10 Mg Tablet PO 10 mg QHS ELICIA Administration Mirtazapine 30 mg 05/07/25 22:00 05/07/25 23:18 Mirtazapine 30 Mg Tablet PO 30 mg QHS ELICIA Administration Non-Formulary Medication 200 mg 05/09/25 10:00 Xcopri PO DAILY ELICIA Pantoprazole Sodium 40 mg 05/08/25 10:00 05/08/25 08:33 Pantoprazole Sodium 40 Mg Tablet PO 40 mg DAILY ELICIA Administration Sodium Chloride 10 - 40 ml 05/07/25 20:08 05/08/25 06:11 0.9% Saline Lock 10 Ml Syringe IV 10 ml UD PRN Administration SALINE FLUSH Tizanidine HCl 2 mg 05/07/25 19:57 Tizanidine Hcl 2 Mg Tablet PO TID PRN MUSCLE SPASM Topiramate 100 mg 05/07/25 22:00 05/08/25 08:33 Topiramate 100 Mg Tablet PO 100 mg BID ELICIA Administration NIHSS NIHSS Nursing Documentation NIHSS Nursing Documentation: NIHSS: Ischemic Stroke/TIA Start: 05/08/25 01:30 Freq: [id number] Status: Active Protocol: Activity Type Activity Date Activity User E-sign Co-sign Detail Recorded Client Recorded Date Recorded By Document 05/08/25 10:00 [facility] [id number] 05/08/25 11:22 [facility] 05/08/25 10:00 NIH Stroke Scale [NIHSS] A score of 0 is normal or asymptomatic . Total possible score is 42. Inpatient: RN or Physician to activate a stroke alert for onset of new stroke symptoms or with NIHSS increase >/= 3 points. Following change in neurological status, NIHSS will be performed per physician order or more frequently PRN. -1a. Level of Consciousness 1 - Not alert; Arousable by minor stimuli to obey, answer & respond -1b. LOC Questions 1 - Answers ONE question correctly -1c. LOC Commands 0 - Performs BOTH tasks correctly -2. Best Gaze 0 - Normal -3. Visual 0 - No visual loss -4. Facial Palsy 0 - Normal symmetrical movements -5b. Right Arm 0 - No drift; arm holds 90 ( or 45) degrees for full 10 seconds -6a. Left Leg 0 - No drift; leg holds 30- degree position for full 5 seconds -6b. Right Leg 1 - Drift; leg falls by the end of 5- seconds, but does not hit bed -7. Limb Ataxia 0 - Absent -8. Sensory 0 - Normal; no sensory loss -9. Best Language 0 - No aphasia; normal -10. Dysarthria 1 = Mild-to- moderate dysarthria; -11. Extinction and Inattention 0 - No abnormality -Total 4 Query Text:A score of 0 is normal or asymptomatic. Total possible score is 42 . ED: Notify Physician for NIHSS increase by > / = 3 points. Inpatient: RN or Physician to activate a stroke alert for NIHSS increase of > / = 3 points. Coma Scale [Assess] -Eye Opening Spontaneous -Motor Obeys Commands -Verbal Oriented [Total] -Coma Scale Total 15
--- NOTE | 2025-05-08 14:26 | CHAPLAIN ---
Type of Pastoral Visit _x__ Initial Visit ___ Follow-up Visit ___ On-call Visit ___ General Patient Visit ___ Spiritual Assessment ___ Family Conference ___ Bereavement ___ Rapid Response ___ Code Blue ___ Other (describe below) Pastoral Care Referral From _x__ Patient ___ Family ___ Nurse ___ Physician ___ Associate Theatre Professor ___ Access Analyst ___ Other (describe below) Sacrament/Intervention _x__ Active listening ___ Anointing ___ Baptist ___ Bereavement ___ Communion ___ Lisa exploration ___ ___ Life review _x__ Prayer ___ Reconciliation ___ Sacrament of Sick _x__ Supportive presence ___ Wedding ___ Other (describe below) Pastoral Comments patient has been seen often; pt is tearful and states that she needs to have a decision about where to go from here; pt states that she wants to go back to live with her sister but I don't know where to go; pt might be a bit confused as she had some trouble focusing on the questions and giving clear answers; helped pt review some of her options and past experiences; pt welcomes presence and prayer
--- NOTE | 2025-05-08 15:00 | MRI_ITS ---
PROCEDURE: MRI/Brain W/WO Contrast
--- NOTE | 2025-05-08 15:24 | CASEMGMT ---
NERIS Reviewed [place] via phone with pts sister/HC POA (Debbie). Debbie had no concerns or questions. Copy placed in pts room and original placed in pts chart. Michelle Pereyra, Discharge Planning Asst
--- NOTE | 2025-05-08 18:41 | PN.HOSP_ITS ---
Reason for Visit
--- NOTE | 2025-05-08 18:41 | PCM.PN.HOSP ---
Reason for Visit Chief Complaint: Altered mental status Subjective Subjective Patient was seen and examined today, I talked with her sister concerning the patient's cognitive ability, she states that the patient does not have any cognitive impairment to her knowledge. Patient's sister would like the patient to go to an extended care facility for short-term rehab services-she prefers TCU where the patient was before and she states that the patient did not have a problem with TCU the last time she was there. Patient was seen in consultation by teleneurology today and their impression was postictal seizure versus stroke. Her MRI report has not been read out at the time of this dictation, teleneurology had mentioned in the recommendations that if the MRI was negative, consideration should be given to increasing the patient's Tegretol. Objective Data Objective Data Vital Signs: Vital Signs Temp Pulse Resp BP Pulse Ox O2 Del Method 97.6 F L 75 18 146/73 H 95 Room Air 05/08/25 16:00 05/08/25 16:00 05/08/25 16:00 05/08/25 16:00 05/08/25 16:00 05/08/25 16:00 Oxygen Delivery Method Room Air Weight: 193.8 kg Body Mass Index (BMI) 68.9 Intake & Output: Intake and Output for Last 24 Hours 05/06/25 05/07/25 05/08/25 23:59 23:59 23:59 Intake Total 200 / 400 550 / 550 Output Total 550 / 550 Balance 200 / 400 0 / 0 Lab / Micro Data 05/07/25 16:25 05/07/25 16:25 Labs: Laboratory Results - last 24 hr 05/07/25 08:47: Troponin T Hi Sens 4Hr 16 H 05/07/25 18:10: Urine Color Yellow, Urine Clarity Clear, Urine pH 7.0, Ur Specific [place] 1.005, Urine Protein 15 H, Urine Glucose (UA) Normal, Urine Ketones Negative, Urine Occult Blood Negative, Urine Nitrite Negative, Urine Bilirubin Negative, Urine Urobilinogen Normal, Ur Leukocyte Esterase Negative, Urine RBC 0 SEEN, Urine WBC 0 SEEN, Ur Squamous Epith Cells 0 SEEN, Urine Bacteria 0 SEEN, Urine Mucus 0 SEEN 05/07/25 18:34: Troponin T Hi Sens 2 Hr 21 H 05/07/25 23:27: POC Glucose 91 05/08/25 06:51: POC Glucose 80 05/08/25 12:49: POC Glucose 168 H 05/08/25 16:30: POC Glucose 170 H Physical Exam Const alert and no apparent distress General Appearance: cooperative, well kempt and well developed Orientation / Consciousness: awake, oriented to person and oriented to place HEENT normocephalic, head/scalp atraumatic and moist oral mucous membranes Eyes PERRL, EOMs intact bilaterally and conjunctivae normal Neck supple, no JVD, thyroid normal and no carotid bruits General: trachea midline Resp normal respiratory effort, no retractions, no use of accessory muscles and clear to auscultation bilaterally Auscultation: Negative for rales, rhonchi or wheezes Cardio regular rate, regular rhythm, S1 normal heart sound, S2 normal heart sound, no murmurs, no rub and no gallops GI normal to inspection, nondistended, normoactive bowel sounds, soft to palpation, non-tender and non-distended Extremity no clubbing, cyanosis or edema Skin no rashes or lesions noted General Skin Exam: no breakdown Neuro CN's II-XII intact bilaterally, moves all extremities, no focal motor deficits and no sensory deficits noted Sensorium / Orientation: awake, alert, oriented to person and oriented to place Speech: speech normal Psych affect normal Assessment & Plan Assessment/Plan (1) Altered mental status: QUALIFIERS: Altered mental status type: unspecified Qualified Code(s): R41.82 - Altered mental status, unspecified PLAN: Plan 1. Mild encephalopathy-etiology unclear, awaiting MRI results. It is possible patient had a seizure at home and her mild cognitive impairment could be secondary to that. #2 seizure disorder-patient will remain on her present medications for seizure #3 acute debility-PT and OT will continue to see the patient, it is likely she will need short-term placement in a care home facility for rehab services #4 type 2 diabetes-patient's blood sugars will be monitored, sliding scale insulin will be administered as needed #5 chronic depression-patient will remain on her current medications #6 chronic migraines-complicates care, management, recovery, and prognosis Total clinical time spent by myself addressing the patient's medical issues, reviewing all of her data, and collaborating with patient's care team: 35 minutes Charges/Coding Visit Charges Inpatient E&M: 14930 Subs Hosp L2 NIHSS NIHSS Nursing Documentation NIHSS Nursing Documentation: NIHSS: Ischemic Stroke/TIA Start: 05/08/25 01:30 Freq: [id number] Status: Active Protocol: Activity Type Activity Date Activity User E-sign Co-sign Detail Recorded Client Recorded Date Recorded By Document 05/08/25 16:00 JM8 g 05/08/25 17:46 JM8 05/08/25 16:00 NIH Stroke Scale [NIHSS] A score of 0 is normal or asymptomatic . Total possible score is 42. Inpatient: RN or Physician to activate a stroke alert for onset of new stroke symptoms or with NIHSS increase >/= 3 points. Following change in neurological status, NIHSS will be performed per physician order or more frequently PRN. -1a. Level of Consciousness 0 - Alert; keenly responsive -1b. LOC Questions 1 - Answers ONE question correctly -1c. LOC Commands 0 - Performs BOTH tasks correctly -2. Best Gaze 0 - Normal -3. Visual 0 - No visual loss -4. Facial Palsy 0 - Normal symmetrical movements -5a. Left Arm 0 - No drift; arm holds 90 ( or 45) degrees for full 10 seconds -5b. Right Arm 0 - No drift; arm holds 90 ( or 45) degrees for full 10 seconds -6a. Left Leg 0 - No drift; leg holds 30- degree position for full 5 seconds -6b. Right Leg 1 - Drift; leg falls by the end of 5- seconds, but does not hit bed -7. Limb Ataxia 0 - Absent -8. Sensory 0 - Normal; no sensory loss -9. Best Language 0 - No aphasia; normal -10. Dysarthria 1 = Mild-to- moderate dysarthria; -11. Extinction and Inattention 0 - No abnormality -Total 3 Query Text:A score of 0 is normal or asymptomatic. Total possible score is 42 . ED: Notify Physician for NIHSS increase by > / = 3 points. Inpatient: RN or Physician to activate a stroke alert for NIHSS increase of > / = 3 points. Coma Scale [Assess] -Eye Opening Spontaneous -Motor Obeys Commands -Verbal Confused [Total] -Coma Scale Total 14
--- NOTE | 2025-05-08 19:28 | PCM.HOSP.N ---
Hospitalist Note MRI brain resulted with no acute intracranial abnormality, mild chronic microangiopathic changes, and a few scattered patchy foci of chronic periventricular demyelination, unchanged with no new or active demyelinating lesion.
[2025-05-08] MEDS: BREXPIPRAZOLE 0.5 MG PO (23:09)
[2025-05-08] MEDS: MELATONIN 10 MG TABLET PO (23:09)
[2025-05-08] MEDS: CENOBAMATE 200 MG TABLET PO (23:26)
[2025-05-09] VITALS (7 sets, daily range): BP systolic 121–158; BP diastolic 68–77; PULSE 60–72; RESP 14–18; TEMP 36.5–36.9; O2SAT 95–100; BMI 68.9; BMI 40.1
[2025-05-09] MEDS: Budesonide Respules 0.5 MG/2 ML AMPUL.NEB. INHALATION ×2 (07:08→20:03)
[2025-05-09] MEDS: Albuterol 2.5 MG/3 ML VIAL.NEB. INHALATION ×3 (07:08→20:03)
--- NOTE | 2025-05-09 08:56 | CASEMGMT ---
Social Work Per imaging pt negative for stroke, therefore PHQ9 not completed. RAVIN Louise
--- NOTE | 2025-05-09 09:01 | CASEMGMT ---
Discharge Planning Referrals sent via [facility] to [place] and [facility]. Michelle Pereyra DC Planning Asst.
[2025-05-09] MEDS: Aspirin E.C. 81 MG Tablet PO (09:04)
[2025-05-09] MEDS: Insulin Glargine-YFGN 100 UNIT/ML Pen 15 UNIT SC (09:05)
[2025-05-09] MEDS: Lactobacillis Acidophilus 1 CAP PO (09:05)
--- NOTE | 2025-05-09 09:36 | CASEMGMT ---
Social Work The patient was not accepted at [facility] but was accepted at [facility]. SW spoke with the patient regarding this. SW also called the sister and informed her and explained that insurance will need to approve her sister going to [facility]. RAVIN Louise
--- NOTE | 2025-05-09 10:10 | PN.NEURO_ITS ---
Assessment and Plan: Neuro
--- NOTE | 2025-05-09 10:10 | NEURO.PNOTE ---
Assessment and Plan: Neuro Assessment/Plan FAM VINSON is a 59 F with a past medical history of neuropathy, seizure, strokes, being evaluated by Teleneurology for sudden transient resolving AMS. She has R sided weakness as well. No clear report of seizure but cannot rule out at this point. No clear provoking factors as patient states she does take her meds and sister apparently manages for her. Patient much improved and able to provide details of her medication regiment. Likely she had post-ictal state Diagnosis: seizure, post-ictal state Plan: Patient has requested to followup with Dr. Santoro and not have her epilepsy medications changed. Believe she would benefit from increase in her carbamazepine - will defer to Dr. Santoro. Discussed with primary team - if POA would like, can increase carbamazepine to 300mg TID as patient may be delayed from her next visit to Dr. Santoro. Will sign off at this time I personally attended this patient and spent a total time of 30 minutes evaluating this patient including clinical assessment, review of chart, medical history imaging, and determining appropriate treatment and workup. Subject: Neurology Subjective Patient greatly improved today, less dysarthric, more focused and able to give details of her history. Corrected that her dose of topamax was 100mg bid and recently raised by Dr. Santoro. Exam: NEURO: -? Mental Status: The patient was alert and oriented to time and place, improved concentration -? Language: speech is clear.? Naming, repetition, fluency, and comprehension intact. -? Cranial Nerves: EOMI, visual mcintosh full, face symmetric facial sensation intact -? Motor: b/l UE and LE without drift -? Sensation- Intact to light touch bilaterally -? Coordination: No dysmetria on [id number], finger follow finger or [id number]-[id number]. -? Gait- deferred EEG Results Procedure Details EEG Procedure Details: FAM VINSON is a 59 year old F with a past medical history of , who presents for evaluation of Electroencephalogram on DATE at TIME Objective Data Objective Data Vital Signs: Vital Signs Temp Pulse Resp BP Pulse Ox O2 Del Method 97.8 F 66 14 149/77 H 98 Room Air 05/09/25 08:59 05/09/25 08:59 05/09/25 08:59 05/09/25 08:59 05/09/25 08:59 05/09/25 08:59 Oxygen Delivery Method Room Air Weight: 113 kg Body Mass Index (BMI) 40.1 Intake & Output: Intake and Output for Last 24 Hours 05/07/25 05/08/25 05/09/25 23:59 23:59 23:59 Intake Total 200 / 400 550 / 550 Output Total 550 / 550 Balance 200 / 400 0 / 0 Lab / Micro Data 05/07/25 16:25 05/07/25 16:25 Labs: Laboratory Results - last 24 hr 05/08/25 12:49: POC Glucose 168 H 05/08/25 16:30: POC Glucose 170 H 05/08/25 23:02: POC Glucose 167 H 05/09/25 06:44: POC Glucose 145 H Radiography Diagnostic Testing: Radiology Impression Brain MRI 05/08/25 15:00 IMPRESSION: No acute intracranial abnormality. Mild chronic microangiopathic changes, and a few scattered patchy foci of chronic periventricular demyelination, unchanged. No new or active demyelinating lesion. Reading Location: [facility] NIHSS NIHSS Nursing Documentation NIHSS Nursing Documentation: NIHSS: Ischemic Stroke/TIA Start: 05/08/25 01:30 Freq: [id number] Status: Complete Protocol: Activity Type Activity Date Activity User E-sign Co-sign Detail Recorded Client Recorded Date Recorded By Document 05/08/25 16:00 JM8 g 05/08/25 17:46 JM8 05/08/25 16:00 NIH Stroke Scale [NIHSS] A score of 0 is normal or asymptomatic . Total possible score is 42. Inpatient: RN or Physician to activate a stroke alert for onset of new stroke symptoms or with NIHSS increase >/= 3 points. Following change in neurological status, NIHSS will be performed per physician order or more frequently PRN. -1a. Level of Consciousness 0 - Alert; keenly responsive -1b. LOC Questions 1 - Answers ONE question correctly -1c. LOC Commands 0 - Performs BOTH tasks correctly -2. Best Gaze 0 - Normal -3. Visual 0 - No visual loss -4. Facial Palsy 0 - Normal symmetrical movements -5a. Left Arm 0 - No drift; arm holds 90 ( or 45) degrees for full 10 seconds -5b. Right Arm 0 - No drift; arm holds 90 ( or 45) degrees for full 10 seconds -6a. Left Leg 0 - No drift; leg holds 30- degree position for full 5 seconds -6b. Right Leg 1 - Drift; leg falls by the end of 5- seconds, but does not hit bed -7. Limb Ataxia 0 - Absent -8. Sensory 0 - Normal; no sensory loss -9. Best Language 0 - No aphasia; normal -10. Dysarthria 1 = Mild-to- moderate dysarthria; -11. Extinction and Inattention 0 - No abnormality -Total 3 Query Text:A score of 0 is normal or asymptomatic. Total possible score is 42 . ED: Notify Physician for NIHSS increase by > / = 3 points. Inpatient: RN or Physician to activate a stroke alert for NIHSS increase of > / = 3 points. Coma Scale [Assess] -Eye Opening Spontaneous -Motor Obeys Commands -Verbal Confused [Total] -Coma Scale Total 14
--- NOTE | 2025-05-09 10:20 | CASEMGMT ---
Discharge Planning Per [facility] is foc. [facility] asked to cancel referral. [facility] notified that they are foc but that pt has tripped passr screen and that updates will be sent when precert can be sent. Michelle Pereyra DC Planning Asst.
--- NOTE | 2025-05-09 18:57 | PN.HOSP_ITS ---
Reason for Visit
--- NOTE | 2025-05-09 18:57 | PCM.PN.HOSP ---
Reason for Visit Chief Complaint: Altered mental status Subjective Subjective Patient was seen and examined today, I talked to her POA by phone today and relayed the fact that neuro wants her Tegretol increased, this was okay with her POA and so I have increased her Tegretol to 300 mg 3 times daily. Patient appears more alert today and not drowsy. Objective Data Objective Data Vital Signs: Vital Signs Temp Pulse Resp BP Pulse Ox O2 Del Method 97.7 F L 72 16 145/68 H 95 Room Air 05/09/25 15:00 05/09/25 15:00 05/09/25 15:00 05/09/25 15:00 05/09/25 15:00 05/09/25 15:10 Oxygen Delivery Method Room Air Weight: 113 kg Body Mass Index (BMI) 40.1 Intake & Output: Intake and Output for Last 24 Hours 05/07/25 05/08/25 05/09/25 23:59 23:59 23:59 Intake Total 200 / 400 550 / 550 360 / 360 Output Total 550 / 550 Balance 200 / 400 0 / 0 360 / 360 Lab / Micro Data 05/07/25 16:25 05/07/25 16:25 Labs: Laboratory Results - last 24 hr 05/08/25 23:02: POC Glucose 167 H 05/09/25 06:44: POC Glucose 145 H 05/09/25 12:12: POC Glucose 170 H 05/09/25 16:31: POC Glucose 140 H Radiography Diagnostic Testing: Radiology Impression Brain MRI 05/08/25 15:00 IMPRESSION: No acute intracranial abnormality. Mild chronic microangiopathic changes, and a few scattered patchy foci of chronic periventricular demyelination, unchanged. No new or active demyelinating lesion. Reading Location: [facility] Physical Exam Narrative alert and no apparent distress General Appearance: cooperative, well kempt and well developed Orientation / Consciousness: awake, oriented to person and oriented to place HEENT normocephalic, head/scalp atraumatic and moist oral mucous membranes Eyes PERRL, EOMs intact bilaterally and conjunctivae normal Neck supple, no JVD, thyroid normal and no carotid bruits General: trachea midline Resp normal respiratory effort, no retractions, no use of accessory muscles and clear to auscultation bilaterally Auscultation: Negative for rales, rhonchi or wheezes Cardio regular rate, regular rhythm, S1 normal heart sound, S2 normal heart sound, no murmurs, no rub and no gallops GI normal to inspection, nondistended, normoactive bowel sounds, soft to palpation, non-tender and non-distended Extremity no clubbing, cyanosis or edema Skin no rashes or lesions noted General Skin Exam: no breakdown Neuro CN's II-XII intact bilaterally, moves all extremities, no focal motor deficits and no sensory deficits noted Sensorium / Orientation: awake, alert, oriented to person and oriented to place Speech: speech normal Psych affect normal Assessment & Plan Assessment/Plan (1) Epilepsy: QUALIFIERS: Epilepsy type: unspecified Intractability: not intractable Status epilepticus: without status epilepticus Qualified Code(s): G40.909 - Epilepsy, unspecified, not intractable, without status epilepticus (2) Altered mental status: QUALIFIERS: Altered mental status type: unspecified Qualified Code(s): R41.82 - Altered mental status, unspecified PLAN: Plan 1. Mild encephalopathy-probably due to postictal state, resolved at this time #2 seizure disorder-patient's Tegretol will be increased, she will remain on her other seizure medications. #3 acute debility-PT and OT will continue to see the patient, it is likely she will need short-term placement in a halfway facility for rehab services #4 type 2 diabetes-patient's blood sugars will be monitored, sliding scale insulin will be administered as needed #5 chronic depression-patient will remain on her current medications #6 chronic migraines-complicates care, management, recovery, and prognosis Total clinical time spent by myself addressing the patient's medical issues, reviewing all of her data, and collaborating with patient's care team: 35 minutes Charges/Coding Visit Charges Inpatient E&M: 90273 Subs Hosp L2 NIHSS NIHSS Nursing Documentation NIHSS Nursing Documentation: NIHSS: Ischemic Stroke/TIA Start: 05/08/25 01:30 Freq: [id number] Status: Complete Protocol: Activity Type Activity Date Activity User E-sign Co-sign Detail Recorded Client Recorded Date Recorded By Document 05/08/25 16:00 TAMIKO g 05/08/25 17:46 TAMIKO 10/28/25 16:00 NIH Stroke Scale [NIHSS] A score of 0 is normal or asymptomatic . Total possible score is 42. Inpatient: RN or Physician to activate a stroke alert for onset of new stroke symptoms or with NIHSS increase >/= 3 points. Following change in neurological status, NIHSS will be performed per physician order or more frequently PRN. -1a. Level of Consciousness 0 - Alert; keenly responsive -1b. LOC Questions 1 - Answers ONE question correctly -1c. LOC Commands 0 - Performs BOTH tasks correctly -2. Best Gaze 0 - Normal -3. Visual 0 - No visual loss -4. Facial Palsy 0 - Normal symmetrical movements -5a. Left Arm 0 - No drift; arm holds 90 ( or 45) degrees for full 10 seconds -5b. Right Arm 0 - No drift; arm holds 90 ( or 45) degrees for full 10 seconds -6a. Left Leg 0 - No drift; leg holds 30- degree position for full 5 seconds -6b. Right Leg 1 - Drift; leg falls by the end of 5- seconds, but does not hit bed -7. Limb Ataxia 0 - Absent -8. Sensory 0 - Normal; no sensory loss -9. Best Language 0 - No aphasia; normal -10. Dysarthria 1 = Mild-to- moderate dysarthria; -11. Extinction and Inattention 0 - No abnormality -Total 3 Query Text:A score of 0 is normal or asymptomatic. Total possible score is 42 . ED: Notify Physician for NIHSS increase by > / = 3 points. Inpatient: RN or Physician to activate a stroke alert for NIHSS increase of > / = 3 points. Coma Scale [Assess] -Eye Opening Spontaneous -Motor Obeys Commands -Verbal Confused [Total] -Coma Scale Total 14
[2025-05-09] MEDS: MELATONIN 10 MG TABLET PO (23:03)
[2025-05-09] MEDS: BREXPIPRAZOLE 0.5 MG PO (23:04)
[2025-05-09] MEDS: CENOBAMATE 200 MG TABLET PO (23:16)
[2025-05-10] VITALS (8 sets, daily range): BP systolic 113–151; BP diastolic 68–81; PULSE 61–78; RESP 15–18; TEMP 36.2–36.9; O2SAT 93–98; BMI 40.5
[2025-05-10] MEDS: Albuterol 2.5 MG/3 ML VIAL.NEB. INHALATION ×2 (06:49→19:31)
[2025-05-10] MEDS: Budesonide Respules 0.5 MG/2 ML AMPUL.NEB. INHALATION ×2 (06:49→19:31)
[2025-05-10] MEDS: Aspirin E.C. 81 MG Tablet PO (08:55)
[2025-05-10] MEDS: Lactobacillis Acidophilus 1 CAP PO (08:55)
[2025-05-10] MEDS: Insulin Glargine-YFGN 100 UNIT/ML Pen 15 UNIT SC (08:59)
--- NOTE | 2025-05-10 19:41 | PN.HOSP_ITS ---
Reason for Visit
--- NOTE | 2025-05-10 19:41 | PCM.PN.HOSP ---
Reason for Visit Chief Complaint: Altered mental status Subjective Subjective Patient was seen and examined today, had a talk with the patient's sister who was in the room at the time my examination. I gave her copies of the patient's EEG and neuro consult. 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 I went over these findings with the patient's sister. Patient's sister asked me if this is going to be her normal cognitive state from now on and I told her I could not answer that. Objective Data Objective Data Vital Signs: Vital Signs Temp Pulse Resp BP Pulse Ox O2 Del Method 98.1 F 73 18 147/80 H 93 Room Air 05/10/25 16:09 05/10/25 19:32 05/10/25 19:32 05/10/25 16:09 05/10/25 16:09 05/10/25 16:09 Oxygen Delivery Method Room Air Weight: 114 kg Body Mass Index (BMI) 40.5 Intake & Output: Intake and Output for Last 24 Hours 05/08/25 05/09/25 05/10/25 23:59 23:59 23:59 Intake Total 550 / 550 360 / 710 1570 / 1570 Output Total 550 / 550 Balance 0 / 0 360 / 710 1570 / 1570 Lab / Micro Data 05/07/25 16:25 05/07/25 16:25 Labs: Laboratory Results - last 24 hr 05/09/25 23:21: POC Glucose 159 H 05/10/25 11:59: POC Glucose 172 H 05/10/25 16:11: POC Glucose 175 H Physical Exam Const alert, no apparent distress, average body habitus and healthy appearing Constitutional Narrative: Patient does not appear confused to this examiner General Appearance: cooperative, well kempt and well developed Orientation / Consciousness: awake, oriented to person and oriented to place HEENT normocephalic, head/scalp atraumatic and moist oral mucous membranes Eyes PERRL, EOMs intact bilaterally and conjunctivae normal Neck supple, no JVD, thyroid normal and no carotid bruits General: trachea midline Resp normal respiratory effort, no retractions, no use of accessory muscles and clear to auscultation bilaterally Auscultation: Negative for rales, rhonchi or wheezes Cardio regular rate, regular rhythm, S1 normal heart sound, S2 normal heart sound, no murmurs, no rub and no gallops GI normal to inspection, nondistended, normoactive bowel sounds, soft to palpation, non-tender and non-distended Extremity no clubbing, cyanosis or edema Skin no rashes or lesions noted General Skin Exam: no breakdown Neuro oriented x3, CN's II-XII intact bilaterally, no focal motor deficits and no sensory deficits noted Sensorium / Orientation: awake and alert Speech: speech normal Psych Psych Narrative: Patient has a flat affect, she answers simple questions appropriately however Assessment & Plan Assessment/Plan (1) Altered mental status: QUALIFIERS: Altered mental status type: unspecified Qualified Code(s): R41.82 - Altered mental status, unspecified (2) Epilepsy: QUALIFIERS: Epilepsy type: unspecified Intractability: not intractable Status epilepticus: without status epilepticus Qualified Code(s): G40.909 - Epilepsy, unspecified, not intractable, without status epilepticus PLAN: Plan 1. Mild encephalopathy-probably due to interictal expression of generalized epilepsy, again patient's Tegretol was increased, we are waiting pre-CERT for the patient to go to his extended care facility for further [place] care. #2 seizure disorder-patient will remain on her present medications, again her Tegretol was increased as a recommendation from teleneurology. #3 acute debility-PT and OT will continue to see the patient, it is likely she will need short-term placement in a penitentiary facility for rehab services #4 type 2 diabetes-patient's blood sugars will be monitored, sliding scale insulin will be administered as needed #5 chronic depression-patient will remain on her current medications #6 chronic migraines-complicates care, management, recovery, and prognosis Total clinical time spent by myself addressing the patient's medical issues, reviewing all of her data, and collaborating with patient's care team: 35 minutes Charges/Coding Visit Charges Inpatient E&M: 95026 Subs Hosp L2 NIHSS NIHSS Nursing Documentation NIHSS Nursing Documentation: NIHSS: Ischemic Stroke/TIA Start: 05/08/25 01:30 Freq: [id number] Status: Complete Protocol: Activity Type Activity Date Activity User E-sign Co-sign Detail Recorded Client Recorded Date Recorded By Document 05/08/25 16:00 TAMIKO g 05/08/25 17:46 TAMIKO 05/08/25 16:00 NIH Stroke Scale [NIHSS] A score of 0 is normal or asymptomatic . Total possible score is 42. Inpatient: RN or Physician to activate a stroke alert for onset of new stroke symptoms or with NIHSS increase >/= 3 points. Following change in neurological status, NIHSS will be performed per physician order or more frequently PRN. -1a. Level of Consciousness 0 - Alert; keenly responsive -1b. LOC Questions 1 - Answers ONE question correctly -1c. LOC Commands 0 - Performs BOTH tasks correctly -2. Best Gaze 0 - Normal -3. Visual 0 - No visual loss -4. Facial Palsy 0 - Normal symmetrical movements -5a. Left Arm 0 - No drift; arm holds 90 ( or 45) degrees for full 10 seconds -5b. Right Arm 0 - No drift; arm holds 90 ( or 45) degrees for full 10 seconds -6a. Left Leg 0 - No drift; leg holds 30- degree position for full 5 seconds -6b. Right Leg 1 - Drift; leg falls by the end of 5- seconds, but does not hit bed -7. Limb Ataxia 0 - Absent -8. Sensory 0 - Normal; no sensory loss -9. Best Language 0 - No aphasia; normal -10. Dysarthria 1 = Mild-to- moderate dysarthria; -11. Extinction and Inattention 0 - No abnormality -Total 3 Query Text:A score of 0 is normal or asymptomatic. Total possible score is 42 . ED: Notify Physician for NIHSS increase by > / = 3 points. Inpatient: RN or Physician to activate a stroke alert for NIHSS increase of > / = 3 points. Coma Scale [Assess] -Eye Opening Spontaneous -Motor Obeys Commands -Verbal Confused [Total] -Coma Scale Total 14
[2025-05-10] MEDS: MELATONIN 10 MG TABLET PO (22:22)
[2025-05-10] MEDS: BREXPIPRAZOLE 0.5 MG PO (22:26)
[2025-05-10] MEDS: CENOBAMATE 200 MG TABLET PO (22:36)
[2025-05-11] VITALS (8 sets, daily range): BP systolic 101–132; BP diastolic 57–78; PULSE 60–69; RESP 14–18; TEMP 36.4–36.7; O2SAT 92–97; BMI 40.5; BMI 40.6
[2025-05-11] MEDS: Budesonide Respules 0.5 MG/2 ML AMPUL.NEB. INHALATION ×2 (06:58→17:20)
[2025-05-11] MEDS: Albuterol 2.5 MG/3 ML VIAL.NEB. INHALATION ×2 (06:58→17:20)
[2025-05-11] MEDS: Aspirin E.C. 81 MG Tablet PO (08:49)
[2025-05-11] MEDS: Lactobacillis Acidophilus 1 CAP PO (08:50)
[2025-05-11] MEDS: Insulin Glargine-YFGN 100 UNIT/ML Pen 15 UNIT SC (09:02)
[2025-05-11 09:37] LABS: Hematocrit 36.9 % (37-47); Hemoglobin 12.5 g/dL (12.0-15.0); Immature Granulocytes Count 0.020 X10^3/uL (0.0-0.0); Mean Corp Hgb Conc 33.9 g/dL (32-36); Mean Corpuscular Volume 93.7 fL (81-99); Mean Platelet Vol. 10.7 fl (6.2-12.0); NRBC Flagged by Analyzer 0 % (0-5); Platelet Count 199 K/mm3 (150-450); RBC Distribution Width CV 15.7 % (11.6-14.6); RBC Distribution Width SD 53.7 fl (35.1-43.9); Red Blood Count 3.94 M/mm3 (4.2-5.4); White Blood Count 7.1 K/mm3 (4.4-11.0)
[2025-05-11 10:13] LABS: AST(SGOT) 18 U/L (<=31); Alanine Aminotransfer ALT/SGPT 15 U/L (<=34); Albumin, Serum 4.1 g/dL (3.5-5.0); Alkaline Phosphatase 94 U/L (35-104); Anion Gap 11 (5-15); BUN 17 mg/dL (4-19); BUN/Creat Ratio 25.5 RATIO (10-20); Calcium,Total 9.2 mg/dL (7.6-11.0); Carbon Dioxide 19.7 mmol/L (21.0-32.0); Chloride 106 mmol/L (98-108); Estimated Creatinine Clearance 117.47 ml/min (50-250); Globulin 2.9 g/dL (2.2-4.2); Glucose 179 mg/dL (70-99); Potassium 4.4 mmol/L (3.3-5.1)
--- NOTE | 2025-05-11 17:31 | PN.HOSP_ITS ---
Reason for Visit
--- NOTE | 2025-05-11 17:31 | PCM.PN.HOSP ---
Reason for Visit Chief Complaint: Altered mental status Subjective Subjective Patient was seen and examined today, she appears more lethargic, it is possible she had a which was not observed between yesterday and today. Objective Data Objective Data Vital Signs: Vital Signs Temp Pulse Resp BP Pulse Ox O2 Del Method 97.8 F 69 18 132/67 H 97 Room Air 05/11/25 17:11 05/11/25 17:21 05/11/25 17:21 05/11/25 17:11 05/11/25 17:11 05/11/25 17:11 Oxygen Delivery Method Room Air Weight: 114.3 kg Body Mass Index (BMI) 40.6 Intake & Output: Intake and Output for Last 24 Hours 05/09/25 05/10/25 05/11/25 23:59 23:59 23:59 Intake Total 360 / 710 1720 / 1720 120 / 120 Balance 360 / 710 1720 / 1720 120 / 120 Lab / Micro Data 05/11/25 08:55 05/11/25 08:55 Labs: Laboratory Results - last 24 hr 05/10/25 06:47: POC Glucose 173 H 05/10/25 22:19: POC Glucose 218 H 05/11/25 06:24: POC Glucose 160 H 05/11/25 08:55: WBC 7.1, RBC 3.94 L, Hgb 12.5, Hct 36.9 L, MCV 93.7, MCH 31.7, MCHC 33.9, RDW Std Deviation 53.7 H, RDW Coeff of He 15.7 H, Plt Count 199, MPV 10.7, Immature Gran % (Auto) 0.300, Neut % (Auto) 66.5, Lymph % (Auto) 24.1, [place] % (Auto) 6.6, Eos % (Auto) 2.1, Baso % (Auto) 0.4, Absolute Neuts (auto) 4.7, Absolute Lymphs (auto) 1.72, Nucleated RBC % 0, Sodium 136, Potassium 4.4, Chloride 106, Carbon Dioxide 19.7 L, Anion Gap 11, BUN 17, Creatinine 0.67 L, Estim Creat Clear Calc 117.47, Est GFR (MDRD) Non-Af 101, BUN/Creatinine Ratio 25.5 H, Glucose 179 H, Calcium 9.2, Total Bilirubin 0.26, AST 18, ALT 15, Alkaline Phosphatase 94, Total Protein 7.1, Albumin 4.1, Globulin 2.9, Albumin/Globulin Ratio 1.4 05/11/25 11:43: POC Glucose 196 H Physical Exam Narrative Patient is lethargic and sleepy Constitutional Narrative: Patient does not appear confused to this examiner General Appearance: cooperative, well kempt and well developed Orientation / Consciousness: Lethargic, oriented to person and oriented to place HEENT normocephalic, head/scalp atraumatic and moist oral mucous membranes Eyes PERRL, EOMs intact bilaterally and conjunctivae normal Neck supple, no JVD, thyroid normal and no carotid bruits General: trachea midline Resp normal respiratory effort, no retractions, no use of accessory muscles and clear to auscultation bilaterally Auscultation: Negative for rales, rhonchi or wheezes Cardio regular rate, regular rhythm, S1 normal heart sound, S2 normal heart sound, no murmurs, no rub and no gallops GI normal to inspection, nondistended, normoactive bowel sounds, soft to palpation, non-tender and non-distended Extremity no clubbing, cyanosis or edema Skin no rashes or lesions noted General Skin Exam: no breakdown Neuro Patient is lethargic and sleepy Sensorium / Orientation: Lethargic and sleepy Speech: speech slow Psych Psych Narrative: Patient has a flat affect she is lethargic and sleepy Assessment & Plan Assessment/Plan (1) Slurred speech: (2) Altered mental status: QUALIFIERS: Altered mental status type: unspecified Qualified Code(s): R41.82 - Altered mental status, unspecified (3) Epilepsy: QUALIFIERS: Epilepsy type: unspecified Intractability: not intractable Status epilepticus: without status epilepticus Qualified Code(s): G40.909 - Epilepsy, unspecified, not intractable, without status epilepticus PLAN: Plan 1. Mild encephalopathy-probably due to interictal expression of generalized epilepsy, again patient's Tegretol was increased, we are waiting pre-CERT for the patient to go to his extended care facility for further skilled care #2 seizure disorder-patient will remain on her present medications, again her Tegretol was increased as a recommendation from teleneurology. #3 acute debility-PT and OT will continue to see the patient, it is likely she will need short-term placement in a nursing home facility for rehab services #4 type 2 diabetes-patient's blood sugars will be monitored, sliding scale insulin will be administered as needed #5 chronic depression-patient will remain on her current medications #6 chronic migraines-complicates care, management, recovery, and prognosis Total clinical time spent by myself addressing the patient's medical issues, reviewing all of her data, and collaborating with patient's care team: 35 minutes Charges/Coding Visit Charges Inpatient E&M: 65968 Subs Hosp L2 NIHSS NIHSS Nursing Documentation NIHSS Nursing Documentation: NIHSS: Ischemic Stroke/TIA Start: 05/08/25 01:30 Freq: [id number] Status: Complete Protocol: Activity Type Activity Date Activity User E-sign Co-sign Detail Recorded Client Recorded Date Recorded By Document 05/08/25 16:00 JM8 g 05/08/25 17:46 JM8 05/08/25 16:00 NIH Stroke Scale [NIHSS] A score of 0 is normal or asymptomatic . Total possible score is 42. Inpatient: RN or Physician to activate a stroke alert for onset of new stroke symptoms or with NIHSS increase >/= 3 points. Following change in neurological status, NIHSS will be performed per physician order or more frequently PRN. -1a. Level of Consciousness 0 - Alert; keenly responsive -1b. LOC Questions 1 - Answers ONE question correctly -1c. LOC Commands 0 - Performs BOTH tasks correctly -2. Best Gaze 0 - Normal -3. Visual 0 - No visual loss -4. Facial Palsy 0 - Normal symmetrical movements -5a. Left Arm 0 - No drift; arm holds 90 ( or 45) degrees for full 10 seconds -5b. Right Arm 0 - No drift; arm holds 90 ( or 45) degrees for full 10 seconds -6a. Left Leg 0 - No drift; leg holds 30- degree position for full 5 seconds -6b. Right Leg 1 - Drift; leg falls by the end of 5- seconds, but does not hit bed -7. Limb Ataxia 0 - Absent -8. Sensory 0 - Normal; no sensory loss -9. Best Language 0 - No aphasia; normal -10. Dysarthria 1 = Mild-to- moderate dysarthria; -11. Extinction and Inattention 0 - No abnormality -Total 3 Query Text:A score of 0 is normal or asymptomatic. Total possible score is 42 . ED: Notify Physician for NIHSS increase by > / = 3 points. Inpatient: RN or Physician to activate a stroke alert for NIHSS increase of > / = 3 points. Coma Scale [Assess] -Eye Opening Spontaneous -Motor Obeys Commands -Verbal Confused [Total] -Coma Scale Total 14
[2025-05-11] MEDS: CENOBAMATE 200 MG TABLET PO (21:49)
[2025-05-11] MEDS: BREXPIPRAZOLE 0.5 MG PO (21:50)
[2025-05-11] MEDS: MELATONIN 10 MG TABLET PO (21:52)
[2025-05-12] VITALS (24 sets, daily range): BP systolic 94–175; BP diastolic 55–106; PULSE 60–94; RESP 10–22; TEMP 36.4–37; O2SAT 93–100; BMI 40.6; BMI 41.3
[2025-05-12] MEDS: Albuterol 2.5 MG/3 ML VIAL.NEB. INHALATION ×2 (06:50→13:12)
[2025-05-12] MEDS: Budesonide Respules 0.5 MG/2 ML AMPUL.NEB. INHALATION (06:50)
[2025-05-12] MEDS: Lactobacillis Acidophilus 1 CAP PO (08:51)
[2025-05-12] MEDS: Aspirin E.C. 81 MG Tablet PO (08:51)
[2025-05-12 08:53] LABS: Hematocrit 39.0 % (37-47); Hemoglobin 12.7 g/dL (12.0-15.0); Immature Granulocytes Count 0.010 X10^3/uL (0.0-0.0); Mean Corp Hgb Conc 32.6 g/dL (32-36); Mean Corpuscular Volume 95.1 fL (81-99); Mean Platelet Vol. 10.7 fl (6.2-12.0); NRBC Flagged by Analyzer 0 % (0-5); Platelet Count 211 K/mm3 (150-450); RBC Distribution Width CV 15.7 % (11.6-14.6); RBC Distribution Width SD 54.9 fl (35.1-43.9); Red Blood Count 4.10 M/mm3 (4.2-5.4); White Blood Count 7.8 K/mm3 (4.4-11.0)
[2025-05-12] MEDS: Insulin Glargine-YFGN 100 UNIT/ML Pen 15 UNIT SC (08:55)
[2025-05-12 09:56] LABS: Anion Gap 11 (5-15); BUN 22 mg/dL (4-19); BUN/Creat Ratio 26.6 RATIO (10-20); Calcium,Total 9.2 mg/dL (7.6-11.0); Carbon Dioxide 20.8 mmol/L (21.0-32.0); Chloride 105 mmol/L (98-108); Estimated Creatinine Clearance 96.88 ml/min (50-250); Glucose 167 mg/dL (70-99); Potassium 4.6 mmol/L (3.3-5.1)
[2025-05-12 12:35] LABS: Ammonia 47.6 umol/L (11-51)
[2025-05-12 13:04] LABS: Allen Test Positive; Base Excess -3 mmol/L (-2 to +2); FI02 21.0; PO2 62 mmHG (75-100); SITE R Radial; SO2 91 % (94-98)
[2025-05-12 14:25] LABS: Mucous, Urine 0 SEEN /hpf (<or=2+); Red Blood Cells-Urine 0 SEEN /hpf (0-5)
[2025-05-12 14:33] LABS: Color, Urine Amber (Yellow); Glucose, Dipstick Normal (Normal); Ketone-Dipstick 5 mg/dl (Negative); Leukocyte Esterase-Dipstick 500 /ul (Negative); Nitrite-Dipstick Negative (Negative); Occult Blood-Urine 10 /ul (Negative); Protein-Dipstick 30 mg/dl (Negative); Specific Gravity, Urine 1.025 (1.002-1.030); Urine Bilirubin Dipstick Negative (Negative)
[2025-05-12 14:40] LABS: Calcium Oxalate Crystals Ur 1+ /hpf (<or=2+); Squamous Epithelial Cells - UA 5-10 SEEN /hpf (5-10)
[2025-05-12] MEDS: 0.9% Saline Lock 10 ML Syringe IV (17:36)
[2025-05-12] MEDS: 0.9% Normal Saline (1000mL) 1,000 ML 100 ML IV (17:36)
--- NOTE | 2025-05-12 18:11 | CASEMGMT ---
Social Work Date of referral: 05/12/2025 Reason for referral: Rapid Response Team (MANUFACTURING ENGINEERING MANAGER)/Merari Andrew Golf Shoe Spike Assembler responded to MANUFACTURING ENGINEERING MANAGER/Merari andrew and waited outside of patient's room that was filled with medical staff as there were no friends/family members present. Monik Medley, STUDENT OFFICER, FILM FLAT INSPECTOR
--- NOTE | 2025-05-12 18:18 | PN.HOSP_ITS ---
Reason for Visit
--- NOTE | 2025-05-12 18:18 | PCM.PN.HOSP ---
Reason for Visit Chief Complaint: Altered mental status Subjective Subjective Patient initially seen in the a.m. and reported she did not feel very well but was mostly tired and confused and had no focal or localizing symptoms. Later in the evening patient was found to be coughing and choking while eating dinner and ultimately had cardiac arrest. See code note Objective Data Objective Data Vital Signs: Vital Signs Temp Pulse Resp BP Pulse Ox O2 Del Method 97.7 F L 63 12 133/73 H 98 Room Air 05/12/25 15:02 05/12/25 15:02 05/12/25 15:02 05/12/25 15:02 05/12/25 15:02 05/12/25 15:02 Oxygen Delivery Method Room Air Weight: 116.2 kg Body Mass Index (BMI) 41.3 Intake & Output: Intake and Output for Last 24 Hours 05/10/25 05/11/25 05/12/25 23:59 23:59 23:59 Intake Total 1720 / 1720 520 / 520 100 / 100 Output Total 300 / 300 300 / 300 Balance 1720 / 1720 220 / 220 -200 / -200 Lab / Micro Data 05/13/25 07:05 05/13/25 07:05 Labs: Laboratory Results - last 24 hr 05/07/25 16:50: Topiramate 6.2 05/11/25 21:43: POC Glucose 148 H 05/12/25 06:36: POC Glucose 172 H 05/12/25 08:43: WBC 7.8, RBC 4.10 L, Hgb 12.7, Hct 39.0, MCV 95.1, MCH 31.0, MCHC 32.6, RDW Std Deviation 54.9 H, RDW Coeff of He 15.7 H, Plt Count 211, MPV 10.7, Immature Gran % (Auto) 0.100, Neut % (Auto) 65.6, Lymph % (Auto) 25.1, [place] % (Auto) 7.0, Eos % (Auto) 1.8, Baso % (Auto) 0.4, Absolute Neuts (auto) 5.1, Absolute Lymphs (auto) 1.96, Nucleated RBC % 0, Sodium 137, Potassium 4.6, Chloride 105, Carbon Dioxide 20.8 L, Anion Gap 11, BUN 22 H, Creatinine 0.82, Estim Creat Clear Calc 96.88, Est GFR (MDRD) Non-Af 83, BUN/Creatinine Ratio 26.6 H, Glucose 167 H, Calcium 9.2 05/12/25 11:50: Ammonia 47.6 05/12/25 12:13: POC Glucose 164 H 05/12/25 14:20: Urine Color Emily, Urine Clarity Cloudy, Urine pH 5.0, Ur Specific Humphrey 1.025, Urine Protein 30 H, Urine Glucose (UA) Normal, Urine Ketones 5 H, Urine Occult Blood 10 H, Urine Nitrite Negative, Urine Bilirubin Negative, Urine Urobilinogen 1 H, Ur Leukocyte Esterase 500 H, Urine RBC 0 SEEN, Urine WBC 50-100 SEEN, Ur Squamous Epith Cells 5-10 SEEN, Calcium Oxalate Crystal 1+, Urine Bacteria 4+, Urine Mucus 0 SEEN 05/12/25 17:25: POC Glucose 202 H ABG Data ABG results: ABG 05/12/25 14:00 Specimen Type ART Sample Site R Radial pH 7.39 Bicarbonate Actual 21.8 L Total CO2 23 Base Excess -3 L O2 Saturation 91 L O2 % 21.0 ABG pCO2 36.0 ABG pO2 62 L Shawn Test Positive O2 Delivery Device Room Air Vent Mode Not entered Physical Exam Narrative General: Patient awake, slow to answer questions, only intermittently answers them HEENT: normocephalic Eyes: Anicteric, normal conjunctiva, extraocular movements grossly intact Neck: Supple Respiratory: No overt wheezes or rhonchi, normal respiratory effort Cardiovascular: Regular rate and rhythm GI: Soft, nontender, nondistended Extremities: No edema Musculoskeletal: Moving all extremities Neuro: No overt focal neurological deficits the patient difficulty in cooperating with neuroexam due to mental status Skin: No rashes appreciated Psych: Attempts to be cooperative Assessment & Plan Assessment/Plan (1) Seizure: (2) Cardiac arrest: (3) Food impaction of esophagus: PLAN: Plan #Acute hypoxic respiratory failure - Patient had CODE BLUE called yesterday after she was found to be coughing and choking on her food and subsequently lost pulse - During intubation it was noted that she had a significant amount of food impaction with meat ball noted and was successfully intubated - Got ROSC and seem to be directly correlated to oxygenating - Patient intubated and transferred to ICU #Food impaction - Patient underwent endoscopy at bedside in ICU by GI and had meatball removed # Cardiac arrest - Suspect secondary to respiratory arrest - She did receive a defib at 200 J, 1 round of epi, bicarb and after intubation and oxygenation pt achieved ROSC -Pt moved to ICU -Telephone Solicitor consulted -Pt vitally stable #Breakthrough seizures - Patient initially presented with confusion and EEG showed ictal state, it was thought the patient seized and was postictal - Patient continued to have some altered mental status despite increasing Tegretol but was found to have a UTI with otherwise unremarkable lab workup and was started on Rocephin -After patient intubated and transferred to ICU she did vomit and appeared to have seizure activity, she was given 2 mg of Ativan and teleneurology stat consulted -They recommended transfer to facility for continuous EEG, no EEG available at our facility until Wednesday -They also recommended head CT which showed no acute process and to give 2 g of Keppra and then maintain on 2 g twice daily until able to resume p.o. meds for patient transferred -Patient accepted to [facility] and pending bed assignment and transfer at this time -Continue 2 g of Keppra # Metabolic encephalopathy secondary to urinary tract infection - UA suggestive of UTI - Patient started on Rocephin, pending culture and sensitivity data #Type 2 diabetes mellitus -Glucose checks and sliding scale insulin #Hx SSS -w/ pacemaker #GERD -Continue PPI #DVT ppx: Lovenox subcu Arianne Jefferson MD Time spent in the patient's overall evaluation, decision-making process, review of diagnostic data, adjustment of management, discussion with other providers, nursing and ancillary staff involved in patient's care documentation, 90 Minutes Charges/Coding Visit Charges Inpatient E&M: 52064 Subs Hosp L3 NIHSS NIHSS Nursing Documentation NIHSS Nursing Documentation: NIHSS: Ischemic Stroke/TIA Start: 05/08/25 01:30 Freq: [id number] Status: Complete Protocol: Activity Type Activity Date Activity User E-sign Co-sign Detail Recorded Client Recorded Date Recorded By Document 05/08/25 16:00 JM8 g 05/08/25 17:46 JM8 05/08/25 16:00 NIH Stroke Scale [NIHSS] A score of 0 is normal or asymptomatic . Total possible score is 42. Inpatient: RN or Physician to activate a stroke alert for onset of new stroke symptoms or with NIHSS increase >/= 3 points. Following change in neurological status, NIHSS will be performed per physician order or more frequently PRN. -1a. Level of Consciousness 0 - Alert; keenly responsive -1b. LOC Questions 1 - Answers ONE question correctly -1c. LOC Commands 0 - Performs BOTH tasks correctly -2. Best Gaze 0 - Normal -3. Visual 0 - No visual loss -4. Facial Palsy 0 - Normal symmetrical movements -5a. Left Arm 0 - No drift; arm holds 90 ( or 45) degrees for full 10 seconds -5b. Right Arm 0 - No drift; arm holds 90 ( or 45) degrees for full 10 seconds -6a. Left Leg 0 - No drift; leg holds 30- degree position for full 5 seconds -6b. Right Leg 1 - Drift; leg falls by the end of 5- seconds, but does not hit bed -7. Limb Ataxia 0 - Absent -8. Sensory 0 - Normal; no sensory loss -9. Best Language 0 - No aphasia; normal -10. Dysarthria 1 = Mild-to- moderate dysarthria; -11. Extinction and Inattention 0 - No abnormality -Total 3 Query Text:A score of 0 is normal or asymptomatic. Total possible score is 42 . ED: Notify Physician for NIHSS increase by > / = 3 points. Inpatient: RN or Physician to activate a stroke alert for NIHSS increase of > / = 3 points. Coma Scale [Assess] -Eye Opening Spontaneous -Motor Obeys Commands -Verbal Confused [Total] -Coma Scale Total 14
[2025-05-12 18:22] LABS: Hematocrit 37.8 % (37-47); Hemoglobin 12.3 g/dL (12.0-15.0); Immature Granulocytes Count 0.200 X10^3/uL (0.0-0.0); Mean Corp Hgb Conc 32.5 g/dL (32-36); Mean Corpuscular Volume 96.7 fL (81-99); Mean Platelet Vol. 10.9 fl (6.2-12.0); NRBC Flagged by Analyzer 0.3 % (0-5); POSITIVE DIFFERENTIAL YES; POSITIVE MORPHOLOGY YES; Platelet Count 241 K/mm3 (150-450); RBC Distribution Width CV 15.5 % (11.6-14.6); RBC Distribution Width SD 55.7 fl (35.1-43.9); Red Blood Count 3.91 M/mm3 (4.2-5.4); White Blood Count 15.7 K/mm3 (4.4-11.0)
--- NOTE | 2025-05-12 18:30 | NURSING ---
pt present ICU 203 via bed from PCU post delon andrew, Industrial Education Teacher, Dr Jefferson, RAILWAY SIGNAL ELECTRICIAN and PCU staff in attendance. pt almost immediately clamped her jaw and began vomiting around her teeth and out her nose. Ativan 2mg IV given. Dr. Jefferson remains at bedside
[2025-05-12 18:48] LABS: Magnesium 2.7 mg/dL (1.5-2.2); Troponin T High Sensitivity 26 ng/L (<=14)
[2025-05-12 18:50] LABS: AST(SGOT) 84 U/L (<=31); Alanine Aminotransfer ALT/SGPT 71 U/L (<=34); Albumin, Serum 4.0 g/dL (3.5-5.0); Alkaline Phosphatase 98 U/L (35-104); Anion Gap 21 (5-15); BUN 23 mg/dL (4-19); BUN/Creat Ratio 23.4 RATIO (10-20); Calcium,Total 9.0 mg/dL (7.6-11.0); Carbon Dioxide 18.5 mmol/L (21.0-32.0); Chloride 100 mmol/L (98-108); Estimated Creatinine Clearance 79.44 ml/min (50-250); Globulin 2.6 g/dL (2.2-4.2); Glucose 297 mg/dL (70-99); Potassium 3.5 mmol/L (3.3-5.1)
--- NOTE | 2025-05-12 18:55 | CB_ITS ---
Code Blue Report
--- NOTE | 2025-05-12 18:55 | PCM.CODE.SUM ---
Code Blue Report Code Blue Summary Code Blue Summary: While eating dinner 05/12/2025 patient had an aspiration event.? Her bed exit alarm and PHYSICIAN INTERVENTIONAL CARDIOLOGIST entered the room and patient was found to be choking and coughing, rapid response called and quickly turned into a CODE BLUE.? Patient had CPR started at 1754 with high-quality CPR and had 200 J defibrillated as per verbal report there had been concern for V. tach.? She subsequently had 1 of epinephrine at 1757, 1 L normal saline bolus and 1 amp of bicarb at 1800, during intubation respiratory noted multiple pieces of meat ball impacted in the esophagus and she was successfully intubated.? With secured airway and improved oxygenation patient achieved ROSC at 1806 and had sinus arrhythmia.? Was vitally stable and transferred to the ICU intubated. Physical Exam Narrative General: Intubated and sedated HEENT: Atraumatic, normocephalic Eyes: Large pupils with no anisocoria Neck: Supple Respiratory: Mechanically ventilated Cardiovascular: Regular rate and rhythm GI: Soft, nontender, nondistended Extremities: No edema Musculoskeletal: Presently sedated and not moving extremities spontaneously Neuro: Unable to participate in neuro exam secondary to intubated and sedated Skin: No rashes appreciated Psych: Unable to cooperate secondary to intubated and sedated Assessment & Plan Assessment/Plan (1) Seizure: (2) Cardiac arrest: PLAN: Plan #Breakthrough seizures w/ post ictal state #UTI with metabolic encephalopathy #Hx epilepsy # Aspiration event resulting in respiratory and subsequently cardiac arrest # Food impaction of esophagus # Diabetes # GERD # Anxiety # Seizures # Sick sinus syndrome status post pacemaker 59-year-old female history of sick sinus syndrome with pacemaker, diabetes, GERD, anxiety, seizure disorder, migraines who presented to [facility] ED 05/07/2025 with altered mental status. Stroke alert was called with last known well the night prior at 2300. Patient brought to the ED and CT brain/CTA head and neck were unremarkable. Vitals in the ED were stable and lab work with white count of 11.1, hemoglobin 12.2, potassium 3.1. Normal lactic acid, troponin of 21 down trended to 16 and UA not suggestive of UTI. Hospitalist contacted for admission. MRI with no acute abnormality and only noted chronic changes but no new or active changes. EEG showed interictal expression of generalized epilepsy and mild diffuse encephalopathy with no active epileptiform discharges or seizures noted during the period of recording on 05/08. Teleneurology evaluated and suspected this was from breakthrough seizure with postictal state. Her carbamazepine was increased and patient was to follow-up with her outpatient neurologist. Patient had waxed and waned slightly over the next couple of days and then on 05/12/2025 due to her continued lack of return to baseline despite increase in carbamazepine [place] work [place] in, labs with normal white count, hemoglobin stable, ABG with a bicarb of 21.8, normal pH, no pCO2 retention. Kidney function stable, glucose 167. Ammonia within normal limits. UA was consistent with UTI, Rocephin ordered and if no improvement in mental status with treatment was considering repeat EEG and or involvement of teleneurology, no overt seizure activity noted at time my exam or by staff the patient was generally confused. While eating dinner 05/12/2025 patient had an aspiration event. Her bed exit alarm and PHYSICIAN INTERVENTIONAL CARDIOLOGIST entered the room and patient was found to be choking and coughing, rapid response called and quickly turned into a CODE BLUE. Patient had CPR started at 1754 with high-quality CPR and had 200 J defibrillated as per verbal report there had been concern for V. tach. She subsequently had 1 of epinephrine at 1757, 1 L normal saline bolus and 1 amp of bicarb at 1800, during intubation respiratory noted multiple pieces of meat ball impacted in the esophagus and she was successfully intubated. With secured airway and improved oxygenation patient achieved ROSC at 1806 and had sinus arrhythmia. Was vitally stable and transferred to the ICU intubated. Once in the ICU repeat labs obtained which showed a white count of 15.7, hemoglobin 12.3, bicarb 18 with a gap of 21, BUN of 23 and a creatinine of 1, lactic post ROSC found to be 8.3, troponin of 26, post ROSC EKG with sinus arrhythmia. Patient had event on arrival to the ICU where she vomited and then clenched her jaw shut and was observed to have seizure activity, she was given 2 mg of Ativan and started on propofol drip and subsequently Versed drip. EEG ordered and teleneurology consult placed. Tele auto service mechanic also evaluated patient, ultimately given concerns with repeat seizure and patient's mental status and teleneurology consult changed to stat. Patient was evaluated and was recommended 2 g of IV Keppra twice daily and a stat head CT was also recommended to transfer to site with continuous EEG. Spoke with patient's family who are agreeable and preferred [facility] or [place]. [facility] no beds available, [facility] also unable to accommodate and [facility] does not have the capabilities. Did speak with auto service mechanic at [place] Dr. Simmons who accepted patient for transfer. Patient transferred in stable condition. Also of note prior to transfer patient did have EGD for residual food in the esophagus with successful removal.
[2025-05-12 18:59] LABS: Differential Indicated SCAN CRITERIA MET
[2025-05-12 19:00] LABS: Differential Comment SCANNED; Reactive Lymphocyte 2+
[2025-05-12] MEDS: Propofol 10MG/Ml 1,000 MG/100 ML Bottle 7 MG CONT INF (19:03)
--- NOTE | 2025-05-12 19:05 | RAD_ITS ---
PROCEDURE: RAD/Chest 1 View (Portable)
[2025-05-12] MEDS: fentaNYL drip 100 ML 5 MCG CONT INF (19:06)
--- NOTE | 2025-05-12 19:13 | PCMCONS.TICU ---
HPI Consult Data Date of Consult: 05/12/25 HPI Narrative Reason for Consultation: acute respiratory failure, sp cardiac arrest HPI Narrative: 59Y F with complicated PMH including but not limited to DM, neuropathy, seizure, strokes who was admitted on 05/07 with altered mentation and Rt sided weakness. She was evaluated by teleneurology & wanted her antiepileptic drugs increased but patient reportedly refused because she wanted her neurologist to manage. She was found to have an incidental UTI for which she was started on CTX. Today she was noted to be more altered, repeatedly saying her name and also having episodes of staring off into space. She was awaiting placement but she choked/aspirated while eating meatballs today with significant quantities of food noted around and in between her vocal cords. She had a respiratory driven cardiac arrest. She received shock x1 for ?VF & Epi x1. She was intubated during code after which ROSC was obtained. Post-arrest/intubation she had severe vomiting and had another nontonic/clonic seizure event with her jaw clenching up (still vomited around this). Pt is now in the ICU and I have been consulted for critical care management. Current drips/vent settings Prop @ 30 Fent @ 50 14 450 5 100 PE: General: morbidly obese acute on chronically ill appearing female, +MV HEENT: anicteric Sclera; + ETT, nl nose; supple neck, no masses Cardiovascular: Regular Rate and Rhythm; No murmurs, rubs, gallops; no displaced PMI Respiratory: diminished; no crackles, wheezes, or rhonchi Abdominal: Non-tender; Non distended; hypoBS x 4; No Hepatosplenomegaly Extremities: Warm, well perfused; No clubbing, cyanosis; capillary refill < 2 sec Neurological: sedated/altered A/P: #Acute hypoxemic respiratory failure #Acute aspiration/food impaction #SP cardiac arrest #Seizure disorder with recurrent breakthrough seizures #UTI #Elevated troponin #Lactic acidosis #Acute on chronic encephalopathy #Prior CVA #DM #Super morbid obesity -Cont MV; settings reviewed/adjusted; cont sedation/analgesia but will add Versed gtt -Pending GI consult with endoscopy to remove all impacted food -Cont post-arrest supportive management; trend Sukhdev/lactic acid but suspect this is all acutely elevated 2* to arrest; will consider TTE in AM -Will switch CTX to Zosyn, F/U Cx -Given Hx of breakthrough seizures and recent events I feel she needs Tx where cEEG can be completed urgently; I did discuss her case with tele-neuro Dr. Lebron who had seen her earlier during this hospitalization and she agreed as well and recommended Tx for HLOC along with 2g Keppra load since we do not have cEEG capabilities and earliest EEG would be tomorrow -Glycemic monitoring/control NPO LMWH Very guarded prognosis Recommend Tx for HLOC/cEEG/on-site supplier specialist and neuro support. CCT: 60 min The entirety of this encounter was completed via telemedicine. [facility] Medical History Slurred speech Anxiety COPD (chronic obstructive pulmonary disease) Debility Seizure Myalgia Low back pain Diabetes mellitus, type 2 Presence of cardiac pacemaker Sick sinus syndrome History of COPD History of diabetes mellitus Syncope Symptomatic bradycardia Hx of type 2 diabetes mellitus Epilepsy Palpitations Hyperammonemia Cerebrovascular disease Dorsalgia Neck pain Migraine headache without aura Polyneuropathy Generalized weakness General weakness Former smoker Asthma Seizures Multiple sclerosis Demyelinating disease of central nervous system Epilepsy Generalized weakness Recurrent falls Recurrent syncope Depression Migraines Multiple falls Gastroenteritis History of CVA (cerebrovascular accident) GERD (gastroesophageal reflux disease) Obesity Former tobacco use Seizure disorder Allergic rhinitis Chronic migraine Orthostasis HTN (hypertension) COVID-19 virus infection Bradycardia Psoriasis Hypercholesterolemia Home Medications ?Medication ?Instructions ?Recorded ?Last Taken ?Type insulin syr/ndl U100 half shirley 0.5 09/03/22 Unknown History mL 31 gauge x 5/16 (Droplet Insulin Syringe (half unit)) dextromethorphan 20 mg-quinidine 1 cap PO BID DEPRESSION 02/06/23 05/07/25 History 10 mg capsule (Nuedexta) Lactobacillus rhamnosus GG 10 1 cap PO DAILY recurrent uti 05/09/24 05/07/25 History billion cell capsule (Culturelle) ascorbic acid (vitamin C) 500 mg 500 mg PO QDAY see pcp 05/09/24 05/07/25 History tablet cranberry fruit 450 mg tablet 450 mg PO TID see pcp 05/09/24 05/07/25 History flash glucose scanning reader #1 ea 10/30/24 Unknown Rx (FreeStyle Es 2 [place]) flash glucose sensor (FreeStyle #3 ea 10/30/24 Unknown Rx Es 2 Sensor kit) handicap placard #1 ea 11/15/24 Unknown Rx omeprazole 40 mg capsule,delayed 40 mg PO DAILY GERD #90 caps 01/03/25 05/07/25 Rx release melatonin 10 mg capsule 10 mg PO QHS sleep 01/19/25 05/06/25 History 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 sensor (FreeStyle #3 ea 02/15/25 Unknown Rx Es 3 Sensor device) 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,diagnostic sales specialist,cont #1 ea 02/15/25 Unknown Rx (FreeStyle Es 3 [place]) buspirone 5 mg tablet 5 mg PO TID PRN anxiety #90 tabs 02/15/25 05/07/25 Rx cephalexin 250 mg capsule 250 mg PO QHS recurrent UTI #90 02/15/25 05/06/25 Rx caps insulin glargine 100 unit/mL (3 30 unit (0.3 mL) subcut QAM 02/15/25 05/07/25 Rx mL) subcutaneous pen diabetes #15 mL hydroxyzine HCl 25 mg tablet 50 mg PO QHS PRN anxiety 02/17/25 05/06/25 History albuterol sulfate 2.5 mg/3 mL 2.5 mg (3 mL) inhalation Q2H PRN 03/02/25 Unknown Rx (0.083 %) solution for nebulization PRN Shortness Of Breath 30 days #360 mL aspirin 81 mg tablet,delayed 81 mg PO QDAY 03/08/25 05/07/25 History release (Adult Aspirin Regimen) atorvastatin 80 mg tablet 80 mg PO QHS cholesterol #90 tabs 03/08/25 05/06/25 Rx carbamazepine 200 mg tablet 200 mg PO TID seizures #90 tabs 03/18/25 05/07/25 Rx (Tegretol) gabapentin 800 mg tablet 800 mg PO QHS #30 tabs 03/18/25 05/06/25 Rx galcanezumab-gnlm 120 mg/mL 120 mg subcut QMONTH migraines #1 03/18/25 04/11/25 Rx subcutaneous pen injector mL (Emgality Pen) ibuprofen 600 mg tablet 600 mg PO TID PRN headache/pain 03/18/25 05/07/25 Rx #90 tabs ubrogepant 100 mg tablet (Ubrelvy) 100 mg PO .COMPLEX MIGRAINE #14 03/18/25 Unknown Rx tabs topiramate 100 mg tablet 100 mg PO BID #60 tabs 03/28/25 05/07/25 Rx gabapentin 400 mg capsule 400 mg PO BID polyneuropathy 04/06/25 05/07/25 History albuterol sulfate 90 mcg/actuation 2 puff inhalation Q6H PRN Wheezing 05/07/25 Unknown History aerosol inhaler brexpiprazole 0.5 mg tablet 0.5 mg PO DAILY 05/07/25 05/06/25 History (Rexulti) duloxetine 60 mg capsule,delayed 60 mg PO DAILY 05/07/25 05/07/25 History release ferrous sulfate 325 mg (65 mg 325 mg PO BID 05/07/25 05/07/25 History iron) tablet (Prieto-Time) fluticasone furoate 200 1 inh inhalation DAILY 05/07/25 05/07/25 History mcg/actuation blister powder for inhalation (Arnuity Ellipta) mirtazapine 30 mg tablet 30 mg PO QHS 05/07/25 05/06/25 History onabotulinumtoxinA 100 unit 200 unit IM .COMPLEX Migraine 05/07/25 03/20/25 History solution for injection (Botox) headache w/o aura (ICD 10: G43.009) semaglutide 0.25 mg or 0.5 mg (2 0.25 mg subcut QWEEK 05/07/25 05/03/25 History mg/3 mL) subcutaneous pen injector (Ozempic) tizanidine 2 mg tablet 2 mg PO TID muscle spasm 05/07/25 05/07/25 History levocarnitine 330 mg tablet 330 mg PO BID blood clot 05/08/25 Unknown History cenobamate 200 mg tablet (Xcopri) 200 mg PO .hs 05/09/25 Unknown History Allergy/AdvReac Type Severity Reaction Status Date / Time adhesive tape Allergy Intermediate Rash Verified 05/07/25 16:30 latex Allergy Rash Verified 05/07/25 16:30 levofloxacin (From Levaquin) Allergy Hives Verified 05/07/25 16:30 meloxicam Allergy dizzy Verified 05/07/25 16:30 ondansetron (From Zofran) Allergy Hives Verified 05/07/25 16:30 buprenorphine AdvReac Severe syncope Verified 05/07/25 16:30 pregabalin (From Lyrica) AdvReac Severe syncope Verified 05/07/25 16:30 nalbuphine (From Nubain) AdvReac Other Verified 05/07/25 16:30 Family History Father Hypertension Hyperlipidemia Asthma Colon cancer Mother Cancer lung Aunt Breast cancer Aunt Breast cancer Grandmother Cancer ovarian Grandfather Cancer prostate Grandmother Cancer Uncle Hypertension Aunt Hypertension Sister Hypertension Asthma Surgical History History of appendectomy Hx of tubal ligation Hx of tonsillectomy Hx of cholecystectomy Social History household members: other details: Baby sister. 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 Smoking Status: Never smoker alcohol intake: never substance use type: does not use do you feel safe at home: Yes ROS Review of Systems ROS Unobtainable: due to endotracheal tube Objective Data Objective Data Vital Signs: Vital Signs Last response Temperature 36.5 C L 05/12/25 15:02 Temperature Source Oral 05/12/25 15:02 Pulse Rate 79 05/12/25 18:02 Pulse Strength Normal (2+) 05/12/25 08:05 Respiratory Rate 14 05/12/25 18:02 Respiratory Effort Normal, Non-Labored 05/12/25 14:46 Respiratory Depth Normal 05/12/25 14:46 Respiratory Pattern Normal 05/12/25 18:02 Blood Pressure 133/73 H 05/12/25 15:02 Blood Pressure Mean 93 05/12/25 15:02 Blood Pressure Source Monitor 05/12/25 15:02 Blood Pressure Position Sitting 05/12/25 15:02 Blood Pressure Location Right Arm 05/12/25 15:02 Pulse Ox 100 05/12/25 18:02 Oxygen Delivery Method Room Air 05/12/25 15:02 Fraction of Inspired Oxygen (FIO2) 100 05/12/25 18:02 I&O: I&O Last 24 Hours 05/11/25 05/12/25 05/12/25 23:59 11:59 23:59 Intake Total 400 / 520 100 / 340 240 / 340 Output Total 300 / 300 300 / 650 350 / 650 Balance 100 / 220 -200 / -310 -110 / -310 I&O: Total Stay 05/07/25 16:22 thru 05/12/25 18:00 Intake Total 3690 Output Total 1500 Balance 2190 Current Meds Ordered / Administered: Current meds ordered / Administered Generic Name Dose Route Start Last Admin Trade Name Freq PRN Reason Stop Dose Admin Acetaminophen 650 mg 05/07/25 19:57 05/09/25 01:28 Acetaminophen 325 Mg Tablet PO 650 mg Q6H PRN PRN Administration Pain 1-10 Or Fever>100.7 Albuterol Sulfate 2.5 mg 05/07/25 20:05 05/12/25 13:12 Albuterol 2.5 Mg/3 Ml Vial.Neb. INHALATION 2.5 mg Q6HWA.RT ELICIA Administration Ascorbic Acid 500 mg 05/08/25 10:00 05/12/25 08:54 Ascorbic Acid 500 Mg Tablet PO 500 mg DAILY ELICIA Administration Aspirin 81 mg 05/08/25 08:00 05/12/25 08:51 Aspirin E.C. 81 Mg Tablet PO 81 mg BREAKFAST ELICIA Administration Atorvastatin Calcium 80 mg 05/07/25 22:00 05/11/25 21:51 Atorvastatin Calcium 80 Mg Tablet PO 80 mg QHS ELICIA Administration Budesonide 0.5 mg 05/07/25 20:05 05/12/25 06:50 Budesonide Respules 0.5 Mg/2 Ml Ampul.Neb. INHALATION 0.5 mg Q12H.RT ELICIA Administration Buspirone HCl 5 mg 05/07/25 22:00 05/12/25 15:05 Buspirone 5 Mg Tablet PO 5 mg TID ELICIA Administration Carbamazepine 300 mg 05/09/25 22:00 05/12/25 15:05 Carbamazepine 200 Mg Tablet PO 300 mg TID ELICIA Administration Cenobamate 200 mg 05/08/25 23:30 05/11/25 21:49 Cenobamate 200 Mg Tablet PO 200 mg QHS ELICIA Administration Chlorhexidine Gluconate 15 ml 05/12/25 22:00 Chlorhexidine 15 Ml PO BID ELICIA Duloxetine HCl 60 mg 05/08/25 10:00 05/12/25 08:52 Duloxetine Hcl 60 Mg Capsule PO 60 mg DAILY ELICIA Administration Enoxaparin Sodium 40 mg 05/08/25 10:00 05/12/25 08:52 Enoxaparin 40 Mg/0.4 Ml Syringe SC 40 mg DAILY ELICIA Administration Ferrous Sulfate 325 mg 05/08/25 08:00 05/12/25 08:51 Ferrous Sulfate 325 Mg Tablet PO 325 mg DAILYCM ELICIA Administration Gabapentin 400 mg 05/08/25 08:00 05/12/25 12:19 Gabapentin 400 Mg Capsule PO 400 mg BIDBL ELICIA Administration Gabapentin 800 mg 05/07/25 22:00 05/11/25 21:50 Gabapentin 800 Mg Tablet PO 800 mg QHS ELICIA Administration Glucagon 1 mg 05/08/25 00:07 Glucagon 1 Mg/Ml Syringe IM X1 PRN Hypoglycemia Protocol Hydroxyzine Pamoate 50 mg 05/07/25 19:57 Hydroxyzine Jacqueline 25 Mg Capsule PO QHS PRN ELICIA Sodium Chloride 250 mls @ 15 mls/hr 05/07/25 20:08 IV .[id number] PRN Saline Flush Sodium Chloride 250 mls @ 15 mls/hr 05/07/25 20:08 IV .[id number] PRN Additional IVPB Infusion Dextrose 250 mls @ 0 mls/hr 05/08/25 00:07 Dextrose 10%-Water IV .Q0M PRN HYPOGLYCEMIA Protocol As Directed Ceftriaxone Sodium 1 gm in 50 mls @ 100 mls/hr 05/12/25 14:50 05/12/25 17:36 Rocephin IV 100 mls/hr Q24 ELICIA Administration Fentanyl 100 mls @ 5 mls/hr 05/12/25 18:55 05/12/25 19:06 CONT INF 50 mcg/hr UD ELICIA 5 mls/hr Protocol Administration 50 MCG/HR Propofol 1,000 mg in 100 mls @ 6.972 mls/hr 05/12/25 18:55 05/12/25 19:03 Diprivan CONT INF 10 mcg/kg/min .Q12H ELICIA 7 mls/hr Protocol Administration 10 MCG/KG/MIN Insulin Glargine 15 unit 05/08/25 10:00 05/12/25 08:55 Insulin Glargine-Yfgn 100 Unit/Ml Pen SC 15 unit DAILY ELICIA Administration Protocol Insulin Human Lispro 0 unit 05/08/25 07:00 05/12/25 17:29 Insulin Lispro 100 Unit/Ml Insuln.Pen SC 2 unit ACHS ELICIA Administration Protocol Levocarnitine 330 mg 05/08/25 22:00 05/12/25 08:52 Levocarnitine 330 Mg Tablet PO 330 mg BID ELICIA Administration Lorazepam 2 mg 05/12/25 18:51 Lorazepam 2 Mg/Ml Syringe IV X1 PRN Seizure activity Melatonin 10 mg 05/07/25 22:00 05/11/25 21:52 Melatonin 10 Mg Tablet PO 10 mg QHS ELICIA Administration Mirtazapine 30 mg 05/07/25 22:00 05/11/25 21:51 Mirtazapine 30 Mg Tablet PO 30 mg QHS ELICIA Administration Pantoprazole Sodium 40 mg 05/08/25 10:00 05/12/25 08:53 Pantoprazole Sodium 40 Mg Tablet PO 40 mg DAILY ELICIA Administration Senna/Docusate Sodium 2 tablet 05/12/25 18:46 Senna/Docusate Sodium 1 Tablet PO BID PRN PRN Constipation Sodium Chloride 10 - 40 ml 05/07/25 20:08 05/12/25 17:36 0.9% Saline Lock 10 Ml Syringe IV 10 ml UD PRN Administration SALINE FLUSH Tizanidine HCl 2 mg 05/07/25 19:57 Tizanidine Hcl 2 Mg Tablet PO TID PRN MUSCLE SPASM Topiramate 100 mg 05/07/25 22:00 05/12/25 08:53 Topiramate 100 Mg Tablet PO 100 mg BID ELICIA Administration Lab / Micro Data 05/12/25 18:10 05/12/25 18:10 Labs: Laboratory Results - last 24 hr 05/07/25 16:50: Topiramate 6.2 05/11/25 21:43: POC Glucose 148 H 05/12/25 06:36: POC Glucose 172 H 05/12/25 08:43: WBC 7.8, RBC 4.10 L, Hgb 12.7, Hct 39.0, MCV 95.1, MCH 31.0, MCHC 32.6, RDW Std Deviation 54.9 H, RDW Coeff of He 15.7 H, Plt Count 211, MPV 10.7, Immature Gran % (Auto) 0.100, Neut % (Auto) 65.6, Lymph % (Auto) 25.1, Chambers % (Auto) 7.0, Eos % (Auto) 1.8, Baso % (Auto) 0.4, Absolute Neuts (auto) 5.1, Absolute Lymphs (auto) 1.96, Nucleated RBC % 0, Sodium 137, Potassium 4.6, Chloride 105, Carbon Dioxide 20.8 L, Anion Gap 11, BUN 22 H, Creatinine 0.82, Estim Creat Clear Calc 96.88, Est GFR (MDRD) Non-Af 83, BUN/Creatinine Ratio 26.6 H, Glucose 167 H, Calcium 9.2 05/12/25 11:50: Ammonia 47.6 05/12/25 12:13: POC Glucose 164 H 05/12/25 14:20: Urine Color Emily, Urine Clarity Cloudy, Urine pH 5.0, Ur Specific [place] 1.025, Urine Protein 30 H, Urine Glucose (UA) Normal, Urine Ketones 5 H, Urine Occult Blood 10 H, Urine Nitrite Negative, Urine Bilirubin Negative, Urine Urobilinogen 1 H, Ur Leukocyte Esterase 500 H, Urine RBC 0 SEEN, Urine WBC 50-100 SEEN, Ur Squamous Epith Cells 5-10 SEEN, Calcium Oxalate Crystal 1+, Urine Bacteria 4+, Urine Mucus 0 SEEN 05/12/25 17:25: POC Glucose 202 H 05/12/25 17:55: POC Glucose 186 H 05/12/25 18:10: WBC 15.7 H, RBC 3.91 L, Hgb 12.3, Hct 37.8, MCV 96.7, MCH 31.5, MCHC 32.5, RDW Std Deviation 55.7 H, RDW Coeff of He 15.5 H, Plt Count 241, MPV 10.9, Immature Gran % (Auto) Not Reportable, Neut % (Auto) Not Reportable, Lymph % (Auto) Not Reportable, Chambers % (Auto) Not Reportable, Eos % (Auto) Not Reportable, Baso % (Auto) Not Reportable, Absolute Neuts (auto) 7.0, Absolute Lymphs (auto) 7.41 H, Nucleated RBC % 0.3, Differential Comment SCANNED, Atypical Lymphocytes RARE, Reactive Lymphocytes 2+, Plt Morphology Comment GIANT, Sodium 139, Potassium 3.5, Chloride 100, Carbon Dioxide 18.5 L, Anion Gap 21 H, BUN 23 H, Creatinine 1.00, Estim Creat Clear Calc 79.44, Est GFR (MDRD) Non-Af 65, BUN/Creatinine Ratio 23.4 H, Glucose 297 H, Lactic Acid 8.3 H*, Calcium 9.0, Phosphorus 5.4 H, Magnesium 2.7 H, Total Bilirubin 0.19, AST 84 H, ALT 71 H, Alkaline Phosphatase 98, Troponin T High Sens 26 H D, Total Protein 6.6, Albumin 4.0, Globulin 2.6, Albumin/Globulin Ratio 1.5 ABG Data ABG results: ABG 05/12/25 14:00 Specimen Type ART Sample Site R Radial pH 7.39 Bicarbonate Actual 21.8 L Total CO2 23 Base Excess -3 L O2 Saturation 91 L O2 % 21.0 ABG pCO2 36.0 ABG pO2 62 L Shawn Test Positive O2 Delivery Device Room Air Vent Mode Not entered Assessment and Plan . Assessment and plan: Critical Care Time: The entirety of this encounter was done via Telemedicine
[2025-05-12 20:03] LABS: Base Excess -5 mmol/L (-2 to +2); FI02 100.0; PEEP 5; PO2 162 mmHG (75-100); RR 14; SITE R Radial; SO2 99 % (94-98)
[2025-05-12] MEDS: Midazolam 50 MG in 0.9% Normal Saline (100mL Bag) 90 ML CONT INF (20:12)
--- NOTE | 2025-05-12 20:28 | PCM.PN.BLA ---
Progress Note FAM VINSON is a 59 F with a past medical history of neuropathy, seizure, strokes, being evaluated by Teleneurology for sudden transient resolving AMS. She has R sided weakness as well. No clear report of seizure but cannot rule out at this point. No clear provoking factors as patient states she does take her meds and sister apparently manages for her. Patient much improved and able to provide details of her medication regiment. Likely she had post-ictal state. She was last seen by me on 05/09, at that time pt deferred increasing her carbamazepine and was returned to baseline so I signed off understanding that patient was awaiting placement. Called this evening that patient had been more somnolent the last couple days, had a UTI that was being treated and carbamazepine was increased. She was brought to ICU for increased confusion (was repeating her name, having staring spells), was eating something and aspirated, requiring intubation for a respiratory arrest. She was stabilized but then began to vomit around her tube. Now she has unrespinsive pupils Given her known history of poorly controlled epilepsy recommend the following: - given active vomitting, hold on PO medications at this time (she takes carbamazepine, xcopri, and topamax) - give 2000mg IV Keppra to cover her sodium channel blockade that her other medications cover - recommend stat CT head - if CT head normal, please obtain KUB to eval bowel gas pattern in case vomiting is 2/2 obstructive bowel gas pattern - recommend transfer to site with continuous EEG If she is unable to transfer will see her tomorrow AM, recommend routine EEG tomorrow AM (techs should be available) and continue Keppra 2000mg BID until her GI status is stabilized. When able to have parenteral medications via NGT, recomment placement and resumption of the carbamazepine, xcopri and topamax.
--- NOTE | 2025-05-12 20:35 | EX.PCM.CON.G ---
HPI Consult Data Date of Consult: 05/12/25 HPI Narrative Reason for Consultation: Aspiration pneumonia HPI Narrative: FAM VINSON, otilia a patient is a 59-year-old female with a complicated neurological history who presented to the [facility] Emergency Department on 05/07/2025 with altered mental status. Her history is significant for epilepsy, migraine headaches, chronic neck and back pain, type 2 diabetes with neuropathy, and possible central demyelinating disease.?She follows with?Dr. Santoro?for her neurological conditions, with her last known office visit on 04/23/2025.The patient was in the ICU, sitting up in bed comfortably, in no apparent distress, and eating, when she suddenly started choking and subsequently lost consciousness. A code was immediately called, and I was called to perform an esophagogastroduodenoscopy (EGD) to investigate the cause of the choking and aspiration event.O Procedure:?Urgent EGD performed in the ICU setting. Patient Status Pre-Procedure:?Patient was in the ICU following a code event triggered by choking. Currently intubated/airway secured (implied by code and need for EGD to assess cause). Vital signs are being continuously monitored. [facility] Medical History Slurred speech Anxiety COPD (chronic obstructive pulmonary disease) Debility Seizure Myalgia Low back pain Diabetes mellitus, type 2 Presence of cardiac pacemaker Sick sinus syndrome History of COPD History of diabetes mellitus Syncope Symptomatic bradycardia Hx of type 2 diabetes mellitus Epilepsy Palpitations Hyperammonemia Cerebrovascular disease Dorsalgia Neck pain Migraine headache without aura Polyneuropathy Generalized weakness General weakness Former smoker Asthma Seizures Multiple sclerosis Demyelinating disease of central nervous system Epilepsy Generalized weakness Recurrent falls Recurrent syncope Depression Migraines Multiple falls Gastroenteritis History of CVA (cerebrovascular accident) GERD (gastroesophageal reflux disease) Obesity Former tobacco use Seizure disorder Allergic rhinitis Chronic migraine Orthostasis HTN (hypertension) COVID-19 virus infection Bradycardia Psoriasis Hypercholesterolemia Home Medications ?Medication ?Instructions ?Recorded ?Last Taken ?Type insulin syr/ndl U100 half shirley 0.5 09/03/22 Unknown History mL 31 gauge x 5/16 (Droplet Insulin Syringe (half unit)) dextromethorphan 20 mg-quinidine 1 cap PO BID DEPRESSION 02/06/23 05/07/25 History 10 mg capsule (Nuedexta) Lactobacillus rhamnosus GG 10 1 cap PO DAILY recurrent uti 05/09/24 05/07/25 History billion cell capsule (Culturelle) ascorbic acid (vitamin C) 500 mg 500 mg PO QDAY see pcp 05/09/24 05/07/25 History tablet cranberry fruit 450 mg tablet 450 mg PO TID see pcp 05/09/24 05/07/25 History flash glucose scanning reader #1 ea 10/30/24 Unknown Rx (FreeStyle Es 2 [place]) flash glucose sensor (FreeStyle #3 ea 10/30/24 Unknown Rx Es 2 Sensor kit) handicap placard #1 ea 11/15/24 Unknown Rx omeprazole 40 mg capsule,delayed 40 mg PO DAILY GERD #90 caps 01/03/25 05/07/25 Rx release melatonin 10 mg capsule 10 mg PO QHS sleep 01/19/25 05/06/25 History 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 sensor (FreeStyle #3 ea 02/15/25 Unknown Rx Es 3 Sensor device) 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,contact lens molder,cont #1 ea 02/15/25 Unknown Rx (FreeStyle Es 3 [place]) buspirone 5 mg tablet 5 mg PO TID PRN anxiety #90 tabs 02/15/25 05/07/25 Rx cephalexin 250 mg capsule 250 mg PO QHS recurrent UTI #90 02/15/25 05/06/25 Rx caps insulin glargine 100 unit/mL (3 30 unit (0.3 mL) subcut QAM 02/15/25 05/07/25 Rx mL) subcutaneous pen diabetes #15 mL hydroxyzine HCl 25 mg tablet 50 mg PO QHS PRN anxiety 02/17/25 05/06/25 History albuterol sulfate 2.5 mg/3 mL 2.5 mg (3 mL) inhalation Q2H PRN 03/02/25 Unknown Rx (0.083 %) solution for nebulization PRN Shortness Of Breath 30 days #360 mL aspirin 81 mg tablet,delayed 81 mg PO QDAY 03/08/25 05/07/25 History release (Adult Aspirin Regimen) atorvastatin 80 mg tablet 80 mg PO QHS cholesterol #90 tabs 03/08/25 05/06/25 Rx carbamazepine 200 mg tablet 200 mg PO TID seizures #90 tabs 03/18/25 05/07/25 Rx (Tegretol) gabapentin 800 mg tablet 800 mg PO QHS #30 tabs 03/18/25 05/06/25 Rx galcanezumab-gnlm 120 mg/mL 120 mg subcut QMONTH migraines #1 03/18/25 04/11/25 Rx subcutaneous pen injector mL (Emgality Pen) ibuprofen 600 mg tablet 600 mg PO TID PRN headache/pain 03/18/25 05/07/25 Rx #90 tabs ubrogepant 100 mg tablet (Ubrelvy) 100 mg PO .COMPLEX MIGRAINE #14 03/18/25 Unknown Rx tabs topiramate 100 mg tablet 100 mg PO BID #60 tabs 03/28/25 05/07/25 Rx gabapentin 400 mg capsule 400 mg PO BID polyneuropathy 04/06/25 05/07/25 History albuterol sulfate 90 mcg/actuation 2 puff inhalation Q6H PRN Wheezing 05/07/25 Unknown History aerosol inhaler brexpiprazole 0.5 mg tablet 0.5 mg PO DAILY 05/07/25 05/06/25 History (Rexulti) duloxetine 60 mg capsule,delayed 60 mg PO DAILY 05/07/25 05/07/25 History release ferrous sulfate 325 mg (65 mg 325 mg PO BID 05/07/25 05/07/25 History iron) tablet (Prieto-Time) fluticasone furoate 200 1 inh inhalation DAILY 05/07/25 05/07/25 History mcg/actuation blister powder for inhalation (Arnuity Ellipta) mirtazapine 30 mg tablet 30 mg PO QHS 05/07/25 05/06/25 History onabotulinumtoxinA 100 unit 200 unit IM .COMPLEX Migraine 05/07/25 03/20/25 History solution for injection (Botox) headache w/o aura (ICD 10: G43.009) semaglutide 0.25 mg or 0.5 mg (2 0.25 mg subcut QWEEK 05/07/25 05/03/25 History mg/3 mL) subcutaneous pen injector (Ozempic) tizanidine 2 mg tablet 2 mg PO TID muscle spasm 05/07/25 05/07/25 History levocarnitine 330 mg tablet 330 mg PO BID blood clot 05/08/25 Unknown History cenobamate 200 mg tablet (Xcopri) 200 mg PO .hs 05/09/25 Unknown History Allergy/AdvReac Type Severity Reaction Status Date / Time adhesive tape Allergy Intermediate Rash Verified 05/07/25 16:30 latex Allergy Rash Verified 05/07/25 16:30 levofloxacin (From Levaquin) Allergy Hives Verified 05/07/25 16:30 meloxicam Allergy dizzy Verified 05/07/25 16:30 ondansetron (From Zofran) Allergy Hives Verified 05/07/25 16:30 buprenorphine AdvReac Severe syncope Verified 05/07/25 16:30 pregabalin (From Lyrica) AdvReac Severe syncope Verified 05/07/25 16:30 nalbuphine (From Nubain) AdvReac Other Verified 05/07/25 16:30 Family History Father Hypertension Hyperlipidemia Asthma Colon cancer Mother Cancer lung Aunt Breast cancer Aunt Breast cancer Grandmother Cancer ovarian Grandfather Cancer prostate Grandmother Cancer Uncle Hypertension Aunt Hypertension Sister Hypertension Asthma Surgical History History of appendectomy Hx of tubal ligation Hx of tonsillectomy Hx of cholecystectomy Social History household members: other details: Baby sister. 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 Smoking Status: Never smoker alcohol intake: never substance use type: does not use do you feel safe at home: Yes ROS Review of Systems ROS Unobtainable: due to endotracheal tube Physical Exam Narrative HEENT normocephalic, head/scalp atraumatic and moist oral mucous membranes Eyes PERRL, EOMs intact bilaterally and conjunctivae normal Neck supple, no JVD, thyroid normal and no carotid bruits General: trachea midline Resp Positive for rales, rhonchi or wheezes Cardio regular rate, regular rhythm, S1 normal heart sound, S2 normal heart sound, no murmurs, no rub and no gallops GI normal to inspection, nondistended, normoactive bowel sounds, soft to palpation, non-tender and non-distended Lab / Micro Data 05/12/25 18:10 05/12/25 18:10 Labs: Laboratory Results - last 24 hr 05/07/25 16:50: Topiramate 6.2 05/11/25 21:43: POC Glucose 148 H 05/12/25 06:36: POC Glucose 172 H 05/12/25 08:43: WBC 7.8, RBC 4.10 L, Hgb 12.7, Hct 39.0, MCV 95.1, MCH 31.0, MCHC 32.6, RDW Std Deviation 54.9 H, RDW Coeff of He 15.7 H, Plt Count 211, MPV 10.7, Immature Gran % (Auto) 0.100, Neut % (Auto) 65.6, Lymph % (Auto) 25.1, Pettis % (Auto) 7.0, Eos % (Auto) 1.8, Baso % (Auto) 0.4, Absolute Neuts (auto) 5.1, Absolute Lymphs (auto) 1.96, Nucleated RBC % 0, Sodium 137, Potassium 4.6, Chloride 105, Carbon Dioxide 20.8 L, Anion Gap 11, BUN 22 H, Creatinine 0.82, Estim Creat Clear Calc 96.88, Est GFR (MDRD) Non-Af 83, BUN/Creatinine Ratio 26.6 H, Glucose 167 H, Calcium 9.2 05/12/25 11:50: Ammonia 47.6 05/12/25 12:13: POC Glucose 164 H 05/12/25 14:20: Urine Color Emily, Urine Clarity Cloudy, Urine pH 5.0, Ur Specific [place] 1.025, Urine Protein 30 H, Urine Glucose (UA) Normal, Urine Ketones 5 H, Urine Occult Blood 10 H, Urine Nitrite Negative, Urine Bilirubin Negative, Urine Urobilinogen 1 H, Ur Leukocyte Esterase 500 H, Urine RBC 0 SEEN, Urine WBC 50-100 SEEN, Ur Squamous Epith Cells 5-10 SEEN, Calcium Oxalate Crystal 1+, Urine Bacteria 4+, Urine Mucus 0 SEEN 05/12/25 17:25: POC Glucose 202 H 05/12/25 17:55: POC Glucose 186 H 05/12/25 18:10: WBC 15.7 H, RBC 3.91 L, Hgb 12.3, Hct 37.8, MCV 96.7, MCH 31.5, MCHC 32.5, RDW Std Deviation 55.7 H, RDW Coeff of He 15.5 H, Plt Count 241, MPV 10.9, Immature Gran % (Auto) Not Reportable, Neut % (Auto) Not Reportable, Lymph % (Auto) Not Reportable, Pettis % (Auto) Not Reportable, Eos % (Auto) Not Reportable, Baso % (Auto) Not Reportable, Absolute Neuts (auto) 7.0, Absolute Lymphs (auto) 7.41 H, Nucleated RBC % 0.3, Differential Comment SCANNED, Atypical Lymphocytes RARE, Reactive Lymphocytes 2+, Plt Morphology Comment GIANT, Sodium 139, Potassium 3.5, Chloride 100, Carbon Dioxide 18.5 L, Anion Gap 21 H, BUN 23 H, Creatinine 1.00, Estim Creat Clear Calc 79.44, Est GFR (MDRD) Non-Af 65, BUN/Creatinine Ratio 23.4 H, Glucose 297 H, Lactic Acid 8.3 H*, Calcium 9.0, Phosphorus 5.4 H, Magnesium 2.7 H, Total Bilirubin 0.19, AST 84 H, ALT 71 H, Alkaline Phosphatase 98, Troponin T High Sens 26 H D, Total Protein 6.6, Albumin 4.0, Globulin 2.6, Albumin/Globulin Ratio 1.5 ABG Data ABG results: ABG 05/12/25 05/12/25 14:00 20:00 Specimen Type ART ART Sample Site R Radial R Radial pH 7.39 7.37 Bicarbonate Actual 21.8 L 20.5 L Total CO2 23 22 Base Excess -3 L -5 L O2 Saturation 91 L 99 H O2 % 21.0 100.0 ABG pCO2 36.0 35.8 ABG pO2 62 L 162 H Shawn Test Positive N/A Respiration Rate 14 O2 Delivery Device Room Air Adult Vent Vent Mode Not entered AC Tidal Volume 450.0 POC PEEP 5 Assessment & Plan Assessment/Plan (1) Aspiration pneumonia: PLAN: Primary Diagnosis:?Choking event leading to cardiopulmonary code and altered mental status. EGD findings:?TBD Differential Diagnosis:?Aspiration pneumonia (likely given the event), post-anoxic brain injury (due to code), ongoing altered mental status (multifactorial: neurological history, post-code status, potential metabolic derangement), potential for functional swallowing disorder vs. anatomical issue not identified. Patient's Chronic Conditions:?Epilepsy (well-controlled on current meds, last seizure activity unknown in context of ED visit), Type 2 Diabetes (neuropathy noted), Migraine Headaches, Chronic Pain. P Continue ICU care:?Monitor closely for signs of?aspiration pneumonia?and further neurological compromise. Speech/Swallowing Evaluation:?Obtain a formal swallow study/speech pathology consult prior to any further oral intake to assess for dysphagia and reduce aspiration risk. Imaging:?Consider?chest imaging (CXR)?after EGD and OG tube was placed. Diet:?NPO Medications:?Continue current home medications via appropriate route (OG tube) where possible, with special attention to antiepileptic drugs to prevent seizure recurrence. Charges/Coding Visit Charges Inpatient E&M: 13732 Init Hosp L3
--- NOTE | 2025-05-12 20:43 | CT_ITS ---
PROCEDURE: CT/Brain/Head without Contrast
--- NOTE | 2025-05-12 20:48 | OP.EGD_ITS ---
Patient Name: Sheyla Soto
--- NOTE | 2025-05-12 22:14 | EKG12_ITS ---
Test Reason : rhythm change
[2025-05-12 22:16] LABS: Reflex Lactate? Y
[2025-05-12] MEDS: levETIRAcetam IV 2,000 MG in 0.9% Normal Saline (250mL Bag) 230 ML 1000 MG IV (23:12)
[2025-05-12] MEDS: Propofol 10MG/Ml 1,000 MG/100 ML Bottle 20.9 MG CONT INF (23:12)
[2025-05-12] MEDS: Piperacil/Tazobactam 3.375 GM in 0.9% Normal Saline (50mL MB+) 50 ML IV (23:47)
--- NOTE | 2025-05-12 23:50 | RAD_ITS ---
PROCEDURE: RAD/Abdomen Single View (Portable)
[2025-05-13] VITALS (51 sets, daily range): BP systolic 69–137; BP diastolic 46–95; PULSE 60–94; RESP 14–19; TEMP 36.7–38.2; O2SAT 91–100; BMI 41.3; BMI 31.6
[2025-05-13] MEDS: Chlorhexidine 15 ML PO ×3 (00:14→10:42)
[2025-05-13] MEDS: 0.9% Normal Saline (1000mL) 1,000 ML 999 ML IV (01:01)
[2025-05-13 01:13] LABS: CPK Total, Creatine Kinase 93 U/L (24-195); Triglycerides 267 mg/dL
--- NOTE | 2025-05-13 01:30 | EKG12_ITS ---
Test Reason : ECTOPY
--- NOTE | 2025-05-13 01:51 | PCM.HOSP.N ---
Hospitalist Note EKG obtained with noted atrial flutter, new onset rate in the 60s. BP decreased x 2 rounds, will administer 1 L NS and re-assess. Decreasing propofol.
[2025-05-13] MEDS: 0.9% Normal Saline (1000mL) 1,000 ML 100 ML IV (02:33)
[2025-05-13] MEDS: Propofol 10MG/Ml 1,000 MG/100 ML Bottle 17.4 MG CONT INF (02:33)
[2025-05-13 04:38] LABS: Base Excess -5 mmol/L (-2 to +2); FI02 40.0; PEEP 5; PO2 69 mmHG (75-100); RR 14; SITE R Radial; SO2 94 % (94-98)
[2025-05-13] MEDS: Piperacil/Tazobactam 3.375 GM in 0.9% Normal Saline (50mL MB+) 50 ML IV ×2 (05:34→13:51)
[2025-05-13] MEDS: Budesonide Respules 0.5 MG/2 ML AMPUL.NEB. INHALATION (06:48)
[2025-05-13] MEDS: Albuterol 2.5 MG/3 ML VIAL.NEB. INHALATION ×2 (06:48→12:51)
--- NOTE | 2025-05-13 07:10 | NURSING ---
change of shift rounds
[2025-05-13 07:16] LABS: Hematocrit 32.1 % (37-47); Hemoglobin 10.6 g/dL (12.0-15.0); Immature Granulocytes Count 0.020 X10^3/uL (0.0-0.0); Mean Corp Hgb Conc 33.0 g/dL (32-36); Mean Corpuscular Volume 96.4 fL (81-99); Mean Platelet Vol. 11.2 fl (6.2-12.0); NRBC Flagged by Analyzer 0 % (0-5); Platelet Count 170 K/mm3 (150-450); RBC Distribution Width CV 15.5 % (11.6-14.6); RBC Distribution Width SD 54.8 fl (35.1-43.9); Red Blood Count 3.33 M/mm3 (4.2-5.4); White Blood Count 8.1 K/mm3 (4.4-11.0)
[2025-05-13 07:36] LABS: Magnesium 1.5 mg/dL (1.5-2.2)
--- NOTE | 2025-05-13 07:38 | PCM.PN.TICU ---
Objective Data Objective Data Vital Signs: Vital Signs Last response Temperature 37.2 C 05/13/25 07:00 Temperature Source Core 05/13/25 07:00 Pulse Rate 60 05/13/25 07:00 Pulse Strength Normal (2+) 05/12/25 22:00 Respiratory Rate 14 05/13/25 07:00 Respiratory Effort Mechanically Ventilated 05/13/25 04:00 Respiratory Depth Normal 05/13/25 04:00 Respiratory Pattern Normal 05/13/25 04:13 Blood Pressure 85/63 L 05/13/25 07:00 Blood Pressure Mean 70 05/13/25 07:00 Blood Pressure Source Monitor 05/13/25 07:00 Blood Pressure Position Semi-Fowlers 05/13/25 07:00 Blood Pressure Location Left Arm 05/13/25 07:00 Pulse Ox 98 05/13/25 07:00 Oxygen Delivery Method Mechanical Ventilator 05/13/25 07:00 Fraction of Inspired Oxygen (FIO2) 30 05/13/25 07:00 I&O: I&O Last 24 Hours 05/12/25 05/12/25 05/13/25 11:59 23:59 10:59 Intake Total 100 / 764.57 645.35 / 764.57 2331.46 / 2331.46 Output Total 300 / 1200 900 / 1200 250 / 250 Balance -200 / -435.43 -254.65 / -435.43 2081.46 / 2081.46 I&O: Total Stay 05/07/25 16:22 thru 05/13/25 07:00 Intake Total 6426.81 Output Total 2300 Balance 4126.81 Current Meds Ordered / Administered: Current meds ordered / Administered Generic Name Dose Route Start Last Admin Trade Name Freq PRN Reason Stop Dose Admin Acetaminophen 650 mg 05/07/25 19:57 05/09/25 01:28 Acetaminophen 325 Mg Tablet PO 650 mg Q6H PRN PRN Administration Pain 1-10 Or Fever>100.7 Albuterol Sulfate 2.5 mg 05/07/25 20:05 05/12/25 13:12 Albuterol 2.5 Mg/3 Ml Vial.Neb. INHALATION 2.5 mg Q6HWA.RT ELICIA Administration Ascorbic Acid 500 mg 05/08/25 10:00 05/12/25 08:54 Ascorbic Acid 500 Mg Tablet PO 500 mg DAILY ELICIA Administration Aspirin 81 mg 05/08/25 08:00 05/12/25 08:51 Aspirin E.C. 81 Mg Tablet PO 81 mg BREAKFAST ELICIA Administration Atorvastatin Calcium 80 mg 05/07/25 22:00 05/12/25 23:46 Atorvastatin Calcium 80 Mg Tablet PO Not Given QHS ELICIA Budesonide 0.5 mg 05/07/25 20:05 05/12/25 06:50 Budesonide Respules 0.5 Mg/2 Ml Ampul.Neb. INHALATION 0.5 mg Q12H.RT ELICIA Administration Buspirone HCl 5 mg 05/07/25 22:00 05/13/25 05:48 Buspirone 5 Mg Tablet PO Not Given TID ELICIA Carbamazepine 300 mg 05/09/25 22:00 05/13/25 05:48 Carbamazepine 200 Mg Tablet PO Not Given TID ELICIA Cenobamate 200 mg 05/08/25 23:30 05/12/25 23:46 Cenobamate 200 Mg Tablet PO Not Given QHS ELICIA Chlorhexidine Gluconate 15 ml 05/12/25 22:00 05/13/25 00:14 Chlorhexidine 15 Ml PO 15 ml BID ELICIA Administration Duloxetine HCl 60 mg 05/08/25 10:00 05/12/25 08:52 Duloxetine Hcl 60 Mg Capsule PO 60 mg DAILY ELICIA Administration Enoxaparin Sodium 40 mg 05/08/25 10:00 05/12/25 08:52 Enoxaparin 40 Mg/0.4 Ml Syringe SC 40 mg DAILY ELICIA Administration Ferrous Sulfate 325 mg 05/08/25 08:00 05/12/25 08:51 Ferrous Sulfate 325 Mg Tablet PO 325 mg DAILYCM ELICIA Administration Gabapentin 400 mg 05/08/25 08:00 05/12/25 12:19 Gabapentin 400 Mg Capsule PO 400 mg BIDBL ELICIA Administration Gabapentin 800 mg 05/07/25 22:00 05/12/25 23:46 Gabapentin 800 Mg Tablet PO Not Given QHS ELICIA Glucagon 1 mg 05/08/25 00:07 Glucagon 1 Mg/Ml Syringe IM X1 PRN Hypoglycemia Protocol Hydroxyzine Pamoate 50 mg 05/07/25 19:57 Hydroxyzine Jacqueline 25 Mg Capsule PO QHS PRN ELICIA Sodium Chloride 250 mls @ 15 mls/hr 05/07/25 20:08 IV .[id number] PRN Saline Flush Sodium Chloride 250 mls @ 15 mls/hr 05/07/25 20:08 IV .[id number] PRN Additional IVPB Infusion Dextrose 250 mls @ 0 mls/hr 05/08/25 00:07 Dextrose 10%-Water IV .Q0M PRN HYPOGLYCEMIA Protocol As Directed Fentanyl 100 mls @ 5 mls/hr 05/12/25 18:55 05/13/25 07:00 CONT INF 50 mcg/hr UD ELICIA 5 mls/hr Protocol Titration 50 MCG/HR Propofol 1,000 mg in 100 mls @ 5.34 mls/hr 05/12/25 18:55 05/13/25 07:00 Diprivan CONT INF 20 mcg/kg/min .Q12H ELICIA 10.7 mls/hr Protocol Titration 10 MCG/KG/MIN Midazolam HCl 50 mg/ Sodium 100 mls @ 2 mls/hr 05/12/25 19:30 05/13/25 02:00 Chloride CONT INF Infused .Q50H ELICIA Titration Protocol 1 MG/HR Piperacillin Sod/Tazobactam 50 mls @ 12.5 mls/hr 05/12/25 22:00 05/13/25 05:34 Sod 3.375 gm/ Sodium Chloride IV 12.5 mls/hr Q8 ELICIA Administration Levetiracetam 2,000 mg/ Sodium 250 mls @ 1,000 mls/hr 05/12/25 20:45 05/12/25 23:27 Chloride IV Infused BID ELICIA Infusion Sodium Chloride 1,000 mls @ 100 mls/hr 05/13/25 02:25 05/13/25 02:33 IV 05/13/25 12:24 100 mls/hr .Q10H ELICIA Administration Insulin Glargine 15 unit 05/08/25 10:00 05/12/25 08:55 Insulin Glargine-Yfgn 100 Unit/Ml Pen SC 15 unit DAILY ELICIA Administration Protocol Insulin Human Lispro 0 unit 05/08/25 07:00 05/13/25 05:40 Insulin Lispro 100 Unit/Ml Insuln.Pen SC Not Given ACHS ELICIA Protocol Levocarnitine 330 mg 05/08/25 22:00 05/12/25 23:46 Levocarnitine 330 Mg Tablet PO Not Given BID ELICIA Lorazepam 2 mg 05/12/25 18:51 Lorazepam 2 Mg/Ml Syringe IV X1 PRN Seizure activity Melatonin 10 mg 05/07/25 22:00 05/12/25 23:46 Melatonin 10 Mg Tablet PO Not Given QHS [facility] Mirtazapine 30 mg 05/07/25 22:00 05/12/25 23:46 Mirtazapine 30 Mg Tablet PO Not Given QHS [facility] Pantoprazole Sodium 40 mg 05/08/25 10:00 05/12/25 08:53 Pantoprazole Sodium 40 Mg Tablet PO 40 mg DAILY ELICIA Administration Senna/Docusate Sodium 2 tablet 05/12/25 18:46 Senna/Docusate Sodium 1 Tablet PO BID PRN PRN Constipation Sodium Chloride 10 - 40 ml 05/07/25 20:08 05/12/25 17:36 0.9% Saline Lock 10 Ml Syringe IV 10 ml UD PRN Administration SALINE FLUSH Tizanidine HCl 2 mg 05/07/25 19:57 Tizanidine Hcl 2 Mg Tablet PO TID PRN MUSCLE SPASM Topiramate 100 mg 05/07/25 22:00 05/12/25 23:46 Topiramate 100 Mg Tablet PO Not Given BID [facility] Lab / Micro Data 05/13/25 14:25 05/13/25 07:05 Labs: Laboratory Results - last 24 hr 05/12/25 08:43: WBC 7.8, RBC 4.10 L, Hgb 12.7, Hct 39.0, MCV 95.1, MCH 31.0, MCHC 32.6, RDW Std Deviation 54.9 H, RDW Coeff of He 15.7 H, Plt Count 211, MPV 10.7, Immature Gran % (Auto) 0.100, Neut % (Auto) 65.6, Lymph % (Auto) 25.1, [place] % (Auto) 7.0, Eos % (Auto) 1.8, Baso % (Auto) 0.4, Absolute Neuts (auto) 5.1, Absolute Lymphs (auto) 1.96, Nucleated RBC % 0, Sodium 137, Potassium 4.6, Chloride 105, Carbon Dioxide 20.8 L, Anion Gap 11, BUN 22 H, Creatinine 0.82, Estim Creat Clear Calc 96.88, Est GFR (MDRD) Non-Af 83, BUN/Creatinine Ratio 26.6 H, Glucose 167 H, Calcium 9.2 05/12/25 11:50: Ammonia 47.6 05/12/25 12:13: POC Glucose 164 H 05/12/25 14:20: Urine Color Emily, Urine Clarity Cloudy, Urine pH 5.0, Ur Specific [place] 1.025, Urine Protein 30 H, Urine Glucose (UA) Normal, Urine Ketones 5 H, Urine Occult Blood 10 H, Urine Nitrite Negative, Urine Bilirubin Negative, Urine Urobilinogen 1 H, Ur Leukocyte Esterase 500 H, Urine RBC 0 SEEN, Urine WBC 50-100 SEEN, Ur Squamous Epith Cells 5-10 SEEN, Calcium Oxalate Crystal 1+, Urine Bacteria 4+, Urine Mucus 0 SEEN 05/12/25 17:25: POC Glucose 202 H 05/12/25 17:55: POC Glucose 186 H 05/12/25 18:10: WBC 15.7 H, RBC 3.91 L, Hgb 12.3, Hct 37.8, MCV 96.7, MCH 31.5, MCHC 32.5, RDW Std Deviation 55.7 H, RDW Coeff of He 15.5 H, Plt Count 241, MPV 10.9, Immature Gran % (Auto) Not Reportable, Neut % (Auto) Not Reportable, Lymph % (Auto) Not Reportable, [place] % (Auto) Not Reportable, Eos % (Auto) Not Reportable, Baso % (Auto) Not Reportable, Absolute Neuts (auto) 7.0, Absolute Lymphs (auto) 7.41 H, Nucleated RBC % 0.3, Differential Comment SCANNED, Atypical Lymphocytes RARE, Reactive Lymphocytes 2+, Plt Morphology Comment GIANT, Sodium 139, Potassium 3.5, Chloride 100, Carbon Dioxide 18.5 L, Anion Gap 21 H, BUN 23 H, Creatinine 1.00, Estim Creat Clear Calc 79.44, Est GFR (MDRD) Non-Af 65, BUN/Creatinine Ratio 23.4 H, Glucose 297 H, Lactic Acid 8.3 H*, Calcium 9.0, Phosphorus 5.4 H, Magnesium 2.7 H, Total Bilirubin 0.19, AST 84 H, ALT 71 H, Alkaline Phosphatase 98, Total Creatine Kinase 93, Troponin T High Sens 26 H D, Total Protein 6.6, Albumin 4.0, Globulin 2.6, Albumin/Globulin Ratio 1.5, Triglycerides 267 H 05/12/25 22:35: Lactic Acid 1.6 05/13/25 00:24: POC Glucose 195 H 05/13/25 05:39: POC Glucose 132 H 05/13/25 07:05: WBC 8.1, RBC 3.33 L, Hgb 10.6 L, Hct 32.1 L, MCV 96.4, MCH 31.8, MCHC 33.0, RDW Std Deviation 54.8 H, RDW Coeff of He 15.5 H, Plt Count 170, MPV 11.2, Immature Gran % (Auto) 0.200, Neut % (Auto) 66.5, Lymph % (Auto) 22.9, [place] % (Auto) 8.8, Eos % (Auto) 1.1, Baso % (Auto) 0.5, Absolute Neuts (auto) 5.4, Absolute Lymphs (auto) 1.86, Nucleated RBC % 0, Phosphorus 2.9, Magnesium 1.5 ABG Data ABG results: ABG 05/12/25 05/12/25 05/13/25 14:00 20:00 04:34 Specimen Type ART ART ART Sample Site R Radial R Radial R Radial pH 7.39 7.37 7.40 Bicarbonate Actual 21.8 L 20.5 L 19.8 L Total CO2 23 22 21 Base Excess -3 L -5 L -5 L O2 Saturation 91 L 99 H 94 O2 % 21.0 100.0 40.0 ABG pCO2 36.0 35.8 32.1 L ABG pO2 62 L 162 H 69 L Shawn Test Positive N/A N/A Respiration Rate 14 14 O2 Delivery Device Room Air Adult Vent Adult Vent Vent Mode Not entered [facility] Tidal Volume 450.0 450.0 POC PEEP 5 5 Imaging Radiology Impression Chest X-Ray 05/12/25 19:05 IMPRESSION: 1. Endotracheal tube tip terminates close to the sienna, consider retraction. 2. Questionable PICC line in the right upper extremity terminating in the mid aspect of the upper arm. Correlate with exam. 3. Linear opacity in the left mid lung zone may represent atelectasis or infection. Reading Location: [id number] Brain CT 05/12/25 20:43 IMPRESSION: No CT evidence of acute intracranial pathology. Mild-moderate volume loss and chronic microangiopathic changes. Likely component of demyelinating lesions in the cerebral white matter as demonstrated on previous brain MRI. Reading Location: [facility] KUB X-Ray 05/12/25 23:50 IMPRESSION: 1. Nonobstructive gas pattern. No free air appreciated. 2. Moderate stool burden throughout the colon. 3. Enteric tube terminating in the distal stomach/proximal duodenum. Reading Location: [facility] Assessment and Plan . Assessment and plan: Critical Care Time: The entirety of this encounter was done via Telemedicine Subjective Subjective Pt seen and examined. Intubated, sedated. She had an episode of hypotension for which she received bolus last night and this seems better. Still suctioning food particles out of her NGT. Good UOP. Prop @ 30 Versed @ 2 Fent @ 50 NS @ 100 14 450 5 30 PE: General: morbidly obese acute on chronically ill appearing female, +MV HEENT: pupils- Lt 6mm, Rt 5mm; are anicteric Sclera; + ETT, nl nose; supple neck, no masses Cardiovascular: Regular Rate and Rhythm; No murmurs, rubs, gallops; no displaced PMI Respiratory: diminished; no crackles, wheezes, or rhonchi Abdominal: Non-tender; Non distended; hypoBS x 4; No Hepatosplenomegaly Extremities: Cool extremities with some purplish discoloration of her hands/feet noted; No clubbing, cyanosis; capillary refill < 2 sec Neurological: sedated but does arouse and follows simple commands A/P: #Acute hypoxemic respiratory failure #Acute aspiration/food impaction #SP cardiac arrest #Seizure disorder with recurrent breakthrough seizures #UTI #Elevated troponin #Lactic acidosis #Acute on chronic encephalopathy #Prior CVA #DM #Super morbid obesity -Cont MV; settings reviewed/adjusted; cont sedation/analgesia -SP urgent endoscopy 05/12 to remove all impacted food; appreciate GI assistance -Cont post-arrest supportive management; trend Sukhdev/lactic acid but suspect this is all acutely elevated 2* to arrest --> responsive to stimuli -Will switch CTX to Zosyn, F/U Cx -Given Hx of breakthrough seizures and recent events I feel she needs Tx where cEEG can be completed urgently; I did discuss her case with tele-neuro Dr. Lebron who had seen her earlier during this hospitalization and she agreed as well and recommended Tx for HLOC along with 2g Keppra load since we do not have cEEG capabilities and earliest EEG would be tomorrow --> no overt seizure activity noted; unable to get EEG today; cont Versed/propofol gtt & Keppra; awaiting transfer -Glycemic monitoring/control NPO LMWH Very guarded prognosis Pending Tx for HLOC/cEEG/[place]site [place] aide and neuro support. CCT: 50 min The entirety of this encounter was completed via telemedicine.
[2025-05-13 07:52] LABS: AST(SGOT) 64 U/L (<=31); Alanine Aminotransfer ALT/SGPT 50 U/L (<=34); Albumin, Serum 3.2 g/dL (3.5-5.0); Alkaline Phosphatase 78 U/L (35-104); Anion Gap 11 (5-15); BUN 18 mg/dL (4-19); BUN/Creat Ratio 35.3 RATIO (10-20); Calcium,Total 6.8 mg/dL (7.6-11.0); Carbon Dioxide 17.5 mmol/L (21.0-32.0); Chloride 111 mmol/L (98-108); Estimated Creatinine Clearance 137.81 ml/min (50-250); Globulin 2.3 g/dL (2.2-4.2); Glucose 141 mg/dL (70-99); Potassium 4.0 mmol/L (3.3-5.1)
--- NOTE | 2025-05-13 07:58 | PN.HOSP_ITS ---
Reason for Visit
--- NOTE | 2025-05-13 07:58 | PCM.PN.HOSP ---
Reason for Visit Chief Complaint: Altered mental status Objective Data Objective Data Vital Signs: Vital Signs Temp Pulse Resp BP Pulse Ox O2 Del Method FiO2 99 F 60 14 85/63 L 98 Mechanical Ventilator 30 05/13/25 07:00 05/13/25 07:00 05/13/25 07:00 05/13/25 07:00 05/13/25 07:00 05/13/25 07:00 05/13/25 07:00 Oxygen Delivery Method Mechanical Ventilator Weight: 89 kg Body Mass Index (BMI) 31.6 Intake & Output: Intake and Output for Last 24 Hours 05/11/25 05/12/25 05/13/25 23:59 23:59 22:59 Intake Total 520 / 520 745.35 / 764.57 2331.46 / 2331.46 Output Total 300 / 300 1200 / 1200 250 / 250 Balance 220 / 220 -454.65 / -435.43 2081.46 / 2081.46 Lab / Micro Data 05/13/25 07:05 05/13/25 07:05 Labs: Laboratory Results - last 24 hr 05/12/25 08:43: Sodium 137, Potassium 4.6, Chloride 105, Carbon Dioxide 20.8 L, Anion Gap 11, BUN 22 H, Creatinine 0.82, Estim Creat Clear Calc 96.88, Est GFR (MDRD) Non-Af 83, BUN/Creatinine Ratio 26.6 H, Glucose 167 H, Calcium 9.2 05/12/25 11:50: Ammonia 47.6 05/12/25 12:13: POC Glucose 164 H 05/12/25 14:20: Urine Color Emily, Urine Clarity Cloudy, Urine pH 5.0, Ur Specific [place] 1.025, Urine Protein 30 H, Urine Glucose (UA) Normal, Urine Ketones 5 H, Urine Occult Blood 10 H, Urine Nitrite Negative, Urine Bilirubin Negative, Urine Urobilinogen 1 H, Ur Leukocyte Esterase 500 H, Urine RBC 0 SEEN, Urine WBC 50-100 SEEN, Ur Squamous Epith Cells 5-10 SEEN, Calcium Oxalate Crystal 1+, Urine Bacteria 4+, Urine Mucus 0 SEEN 05/12/25 17:25: POC Glucose 202 H 05/12/25 17:55: POC Glucose 186 H 05/12/25 18:10: WBC 15.7 H, RBC 3.91 L, Hgb 12.3, Hct 37.8, MCV 96.7, MCH 31.5, MCHC 32.5, RDW Std Deviation 55.7 H, RDW Coeff of He 15.5 H, Plt Count 241, MPV 10.9, Immature Gran % (Auto) Not Reportable, Neut % (Auto) Not Reportable, Lymph % (Auto) Not Reportable, [place] % (Auto) Not Reportable, Eos % (Auto) Not Reportable, Baso % (Auto) Not Reportable, Absolute Neuts (auto) 7.0, Absolute Lymphs (auto) 7.41 H, Nucleated RBC % 0.3, Differential Comment SCANNED, Atypical Lymphocytes RARE, Reactive Lymphocytes 2+, Plt Morphology Comment GIANT, Sodium 139, Potassium 3.5, Chloride 100, Carbon Dioxide 18.5 L, Anion Gap 21 H, BUN 23 H, Creatinine 1.00, Estim Creat Clear Calc 79.44, Est GFR (MDRD) Non-Af 65, BUN/Creatinine Ratio 23.4 H, Glucose 297 H, Lactic Acid 8.3 H*, Calcium 9.0, Phosphorus 5.4 H, Magnesium 2.7 H, Total Bilirubin 0.19, AST 84 H, ALT 71 H, Alkaline Phosphatase 98, Total Creatine Kinase 93, Troponin T High Sens 26 H D, Total Protein 6.6, Albumin 4.0, Globulin 2.6, Albumin/Globulin Ratio 1.5, Triglycerides 267 H 05/12/25 22:35: Lactic Acid 1.6 05/13/25 00:24: POC Glucose 195 H 05/13/25 05:39: POC Glucose 132 H 05/13/25 07:05: WBC 8.1, RBC 3.33 L, Hgb 10.6 L, Hct 32.1 L, MCV 96.4, MCH 31.8, MCHC 33.0, RDW Std Deviation 54.8 H, RDW Coeff of He 15.5 H, Plt Count 170, MPV 11.2, Immature Gran % (Auto) 0.200, Neut % (Auto) 66.5, Lymph % (Auto) 22.9, [place] % (Auto) 8.8, Eos % (Auto) 1.1, Baso % (Auto) 0.5, Absolute Neuts (auto) 5.4, Absolute Lymphs (auto) 1.86, Nucleated RBC % 0, Sodium 140, Potassium 4.0, Chloride 111 H, Carbon Dioxide 17.5 L, Anion Gap 11, BUN 18, Creatinine 0.50 L, Estim Creat Clear Calc 137.81, Est GFR (MDRD) Non-Af 109, BUN/Creatinine Ratio 35.3 H, Glucose 141 H, Calcium 6.8 L, Phosphorus 2.9, Magnesium 1.5, Total Bilirubin 0.21, AST 64 H, ALT 50 H, Alkaline Phosphatase 78, Total Protein 5.4 L, Albumin 3.2 L, Globulin 2.3, Albumin/Globulin Ratio 1.4 ABG Data ABG results: ABG 05/12/25 05/12/25 05/13/25 14:00 20:00 04:34 Specimen Type ART ART ART Sample Site R Radial R Radial R Radial pH 7.39 7.37 7.40 Bicarbonate Actual 21.8 L 20.5 L 19.8 L Total CO2 23 22 21 Base Excess -3 L -5 L -5 L O2 Saturation 91 L 99 H 94 O2 % 21.0 100.0 40.0 ABG pCO2 36.0 35.8 32.1 L ABG pO2 62 L 162 H 69 L Shawn Test Positive N/A N/A Respiration Rate 14 14 O2 Delivery Device Room Air Adult Vent Adult Vent Vent Mode Not entered [facility] Tidal Volume 450.0 450.0 POC PEEP 5 5 Radiography Diagnostic Testing: Radiology Impression Chest X-Ray 05/12/25 19:05 IMPRESSION: 1. Endotracheal tube tip terminates close to the sienna, consider retraction. 2. Questionable PICC line in the right upper extremity terminating in the mid aspect of the upper arm. Correlate with exam. 3. Linear opacity in the left mid lung zone may represent atelectasis or infection. Reading Location: [id number] Brain CT 05/12/25 20:43 IMPRESSION: No CT evidence of acute intracranial pathology. Mild-moderate volume loss and chronic microangiopathic changes. Likely component of demyelinating lesions in the cerebral white matter as demonstrated on previous brain MRI. Reading Location: [id number] X-Ray 05/12/25 23:50 IMPRESSION: 1. Nonobstructive gas pattern. No free air appreciated. 2. Moderate stool burden throughout the colon. 3. Enteric tube terminating in the distal stomach/proximal duodenum. Reading Location: [id number] NIHSS NIHSS Nursing Documentation NIHSS Nursing Documentation: NIHSS: Ischemic Stroke/TIA Start: 05/08/25 01:30 Freq: [id number] Status: Complete Protocol: Activity Type Activity Date Activity User E-sign Co-sign Detail Recorded Client Recorded Date Recorded By Document 05/08/25 16:00 JM8 g 05/08/25 17:46 JM8 05/08/25 16:00 NIH Stroke Scale [NIHSS] A score of 0 is normal or asymptomatic . Total possible score is 42. Inpatient: RN or Physician to activate a stroke alert for onset of new stroke symptoms or with NIHSS increase >/= 3 points. Following change in neurological status, NIHSS will be performed per physician order or more frequently PRN. -1a. Level of Consciousness 0 - Alert; keenly responsive -1b. LOC Questions 1 - Answers ONE question correctly -1c. LOC Commands 0 - Performs BOTH tasks correctly -2. Best Gaze 0 - Normal -3. Visual 0 - No visual loss -4. Facial Palsy 0 - Normal symmetrical movements -5a. Left Arm 0 - No drift; arm holds 90 ( or 45) degrees for full 10 seconds -5b. Right Arm 0 - No drift; arm holds 90 ( or 45) degrees for full 10 seconds -6a. Left Leg 0 - No drift; leg holds 30- degree position for full 5 seconds -6b. Right Leg 1 - Drift; leg falls by the end of 5- seconds, but does not hit bed -7. Limb Ataxia 0 - Absent -8. Sensory 0 - Normal; no sensory loss -9. Best Language 0 - No aphasia; normal -10. Dysarthria 1 = Mild-to- moderate dysarthria; -11. Extinction and Inattention 0 - No abnormality -Total 3 Query Text:A score of 0 is normal or asymptomatic. Total possible score is 42 . ED: Notify Physician for NIHSS increase by > / = 3 points. Inpatient: RN or Physician to activate a stroke alert for NIHSS increase of > / = 3 points. Coma Scale [Assess] -Eye Opening Spontaneous -Motor Obeys Commands -Verbal Confused [Total] -Coma Scale Total 14
--- NOTE | 2025-05-13 08:00 | NURSING ---
Versed drip running at 2mg or 4cc/hr , MAR has bag empty at 0200.
--- NOTE | 2025-05-13 08:50 | RAD_ITS ---
PROCEDURE: RAD/Chest 1 View (Portable)
[2025-05-13] MEDS: 0.9% Normal Saline (250mL Bag) 250 ML 15 ML IV (10:30)
[2025-05-13] MEDS: Propofol 10MG/Ml 1,000 MG/100 ML Bottle 16 MG CONT INF ×2 (10:30→15:45)
[2025-05-13] MEDS: levETIRAcetam IV 2,000 MG in 0.9% Normal Saline (250mL Bag) 230 ML 1000 MG IV (10:30)
--- NOTE | 2025-05-13 10:40 | CASEMGMT ---
Tertiary Insurance review for hospitals in-network with [facility] dual complete HMO POS insurance if transfer is recommended is as follows: [facility]/Kenyetta Contreras, [facility], [facility], [facility], , [facility], [facility], [facility].
[2025-05-13] MEDS: 0.9% Saline Lock 10 ML Syringe IV (10:42)
--- NOTE | 2025-05-13 11:30 | NURSING ---
PICC RN present, begin PICC placement
--- NOTE | 2025-05-13 12:00 | NURSING ---
versed cont at 2mg or 4cc/hr
--- NOTE | 2025-05-13 12:26 | RAD_ITS ---
PROCEDURE: RAD/CXR for Line Placement
--- NOTE | 2025-05-13 12:28 | PN.NEURO_ITS ---
Assessment and Plan: Neuro
--- NOTE | 2025-05-13 12:28 | NEURO.PNOTE ---
Assessment and Plan: Neuro Assessment/Plan FAM VINSON is a 59 F with a past medical history of TIAs, seizures, being evaluated by Teleneurology for AMS, concern for subclinical seizure, depressed LOC leading to aspiration. Concern she was having subclinical events in setting of UTI prior to spiration event, and now exam concerning for subclinical seizures vs posti ictal effect of seizure - given still suctioning food out and some concern for gastroparesis, recommend holding PO meds and doing Keppra 2000mg BID IV, recommend also starting Vimpat 200mg once - MRI Brain when able - when able to resume PO meds, resume topamax 100mg BID, carbamazepine 300mg TID, xcopri 200mg daily and 1mg klonpin BID x 3 days for a bridge to stabilize her. Can stop Keppra and vimpat at that time - agree with treating for aspiration PNA Transfer to [facility] for the following reasons: need cEEG I personally attended this patient and spent a total time of 30 minutes evaluating this patient including clinical assessment, review of chart, medical history imaging, and determining appropriate treatment and workup. Subject: Neurology Subjective No additional events since my note last night. Exam: pupils 5mm on R 4mm L reactive OCC to the R only + gag/cough blink intact following commands intermittently - simple one step commands localizes and withdraws on the RUE withdraws to more noxious stim on the LUE b/l LE with withdrawal babinski + on the RLE EEG Results Procedure Details EEG Procedure Details: FAM VINSON is a 59 year old F with a past medical history of , who presents for evaluation of Electroencephalogram on DATE at TIME Objective Data Objective Data Vital Signs: Vital Signs Temp Pulse Resp BP Pulse Ox O2 Del Method FiO2 99 F 72 14 85/63 L 94 Mechanical Ventilator 30 05/13/25 07:00 05/13/25 10:01 05/13/25 10:01 05/13/25 07:00 05/13/25 10:05/13/25 07:00 05/13/25 10:01 Oxygen Delivery Method Mechanical Ventilator Weight: 89 kg Body Mass Index (BMI) 31.6 Intake & Output: Intake and Output for Last 24 Hours 05/11/25 05/12/25 05/13/25 23:59 23:59 22:59 Intake Total 520 / 520 745.35 / 764.57 2559.27 / 2559.27 Output Total 300 / 300 1200 / 1200 250 / 250 Balance 220 / 220 -454.65 / -435.43 2309.27 / 2309.27 Lab / Micro Data 05/13/25 07:05 05/13/25 07:05 Labs: Laboratory Results - last 24 hr 05/12/25 14:20: Urine Color Emily, Urine Clarity Cloudy, Urine pH 5.0, Ur Specific Warren 1.025, Urine Protein 30 H, Urine Glucose (UA) Normal, Urine Ketones 5 H, Urine Occult Blood 10 H, Urine Nitrite Negative, Urine Bilirubin Negative, Urine Urobilinogen 1 H, Ur Leukocyte Esterase 500 H, Urine RBC 0 SEEN, Urine WBC 50-100 SEEN, Ur Squamous Epith Cells 5-10 SEEN, Calcium Oxalate Crystal 1+, Urine Bacteria 4+, Urine Mucus 0 SEEN 05/12/25 17:25: POC Glucose 202 H 05/12/25 17:55: POC Glucose 186 H 05/12/25 18:10: WBC 15.7 H, RBC 3.91 L, Hgb 12.3, Hct 37.8, MCV 96.7, MCH 31.5, MCHC 32.5, RDW Std Deviation 55.7 H, RDW Coeff of He 15.5 H, Plt Count 241, MPV 10.9, Immature Gran % (Auto) Not Reportable, Neut % (Auto) Not Reportable, Lymph % (Auto) Not Reportable, [place] % (Auto) Not Reportable, Eos % (Auto) Not Reportable, Baso % (Auto) Not Reportable, Absolute Neuts (auto) 7.0, Absolute Lymphs (auto) 7.41 H, Nucleated RBC % 0.3, Differential Comment SCANNED, Atypical Lymphocytes RARE, Reactive Lymphocytes 2+, Plt Morphology Comment GIANT, Sodium 139, Potassium 3.5, Chloride 100, Carbon Dioxide 18.5 L, Anion Gap 21 H, BUN 23 H, Creatinine 1.00, Estim Creat Clear Calc 79.44, Est GFR (MDRD) Non-Af 65, BUN/Creatinine Ratio 23.4 H, Glucose 297 H, Lactic Acid 8.3 H*, Calcium 9.0, Phosphorus 5.4 H, Magnesium 2.7 H, Total Bilirubin 0.19, AST 84 H, ALT 71 H, Alkaline Phosphatase 98, Total Creatine Kinase 93, Troponin T High Sens 26 H D, Total Protein 6.6, Albumin 4.0, Globulin 2.6, Albumin/Globulin Ratio 1.5, Triglycerides 267 H 05/12/25 22:35: Lactic Acid 1.6 05/13/25 00:24: POC Glucose 195 H 05/13/25 05:39: POC Glucose 132 H 05/13/25 07:05: WBC 8.1, RBC 3.33 L, Hgb 10.6 L, Hct 32.1 L, MCV 96.4, MCH 31.8, MCHC 33.0, RDW Std Deviation 54.8 H, RDW Coeff of He 15.5 H, Plt Count 170, MPV 11.2, Immature Gran % (Auto) 0.200, Neut % (Auto) 66.5, Lymph % (Auto) 22.9, [place] % (Auto) 8.8, Eos % (Auto) 1.1, Baso % (Auto) 0.5, Absolute Neuts (auto) 5.4, Absolute Lymphs (auto) 1.86, Nucleated RBC % 0, Sodium 140, Potassium 4.0, Chloride 111 H, Carbon Dioxide 17.5 L, Anion Gap 11, BUN 18, Creatinine 0.50 L, Estim Creat Clear Calc 137.81, Est GFR (MDRD) Non-Af 109, BUN/Creatinine Ratio 35.3 H, Glucose 141 H, Calcium 6.8 L, Phosphorus 2.9, Magnesium 1.5, Total Bilirubin 0.21, AST 64 H, ALT 50 H, Alkaline Phosphatase 78, Total Protein 5.4 L, Albumin 3.2 L, Globulin 2.3, Albumin/Globulin Ratio 1.4 Micro: Microbiology 05/12/25 14:20 Urine, Clean Catch Urine Culture - Preliminary GPC Poss Enterococcus sp Gram negative jake ABG Data ABG results: ABG 05/12/25 05/13/25 20:00 04:34 Specimen Type ART ART Sample Site R Radial R Radial pH 7.37 7.40 Bicarbonate Actual 20.5 L 19.8 L Total CO2 22 21 Base Excess -5 L -5 L O2 Saturation 99 H 94 O2 % 100.0 40.0 ABG pCO2 35.8 32.1 L ABG pO2 162 H 69 L Shawn Test N/A N/A Respiration Rate 14 14 O2 Delivery Device Adult Vent Adult Vent Vent Mode AC AC Tidal Volume 450.0 450.0 POC PEEP 5 5 Radiography Diagnostic Testing: Radiology Impression Chest X-Ray 05/12/25 19:05 IMPRESSION: 1. Endotracheal tube tip terminates close to the sienna, consider retraction. 2. Questionable PICC line in the right upper extremity terminating in the mid aspect of the upper arm. Correlate with exam. 3. Linear opacity in the left mid lung zone may represent atelectasis or infection. Reading Location: [id number] Brain CT 05/12/25 20:43 IMPRESSION: No CT evidence of acute intracranial pathology. Mild-moderate volume loss and chronic microangiopathic changes. Likely component of demyelinating lesions in the cerebral white matter as demonstrated on previous brain MRI. Reading Location: [id number] X-Ray 05/12/25 23:50 IMPRESSION: 1. Nonobstructive gas pattern. No free air appreciated. 2. Moderate stool burden throughout the colon. 3. Enteric tube terminating in the distal stomach/proximal duodenum. Reading Location: [id number] Chest X-Ray 05/13/25 08:50 IMPRESSION: The endotracheal tube tip is at the level of the sienna. Consider retraction by a proximally 2.5 cm. Additional findings as above. Reading [facility] NIHSS NIHSS Nursing Documentation NIHSS Nursing Documentation: NIHSS: Ischemic Stroke/TIA Start: 05/08/25 01:30 Freq: [id number] Status: Complete Protocol: Activity Type Activity Date Activity User E-sign Co-sign Detail Recorded Client Recorded Date Recorded By Document 05/08/25 16:00 JM8 g 05/08/25 17:46 JM8 05/08/25 16:00 NIH Stroke Scale [NIHSS] A score of 0 is normal or asymptomatic . Total possible score is 42. Inpatient: RN or Physician to activate a stroke alert for onset of new stroke symptoms or with NIHSS increase >/= 3 points. Following change in neurological status, NIHSS will be performed per physician order or more frequently PRN. -1a. Level of Consciousness 0 - Alert; keenly responsive -1b. LOC Questions 1 - Answers ONE question correctly -1c. LOC Commands 0 - Performs BOTH tasks correctly -2. Best Gaze 0 - Normal -3. Visual 0 - No visual loss -4. Facial Palsy 0 - Normal symmetrical movements -5a. Left Arm 0 - No drift; arm holds 90 ( or 45) degrees for full 10 seconds -5b. Right Arm 0 - No drift; arm holds 90 ( or 45) degrees for full 10 seconds -6a. Left Leg 0 - No drift; leg holds 30- degree position for full 5 seconds -6b. Right Leg 1 - Drift; leg falls by the end of 5- seconds, but does not hit bed -7. Limb Ataxia 0 - Absent -8. Sensory 0 - Normal; no sensory loss -9. Best Language 0 - No aphasia; normal -10. Dysarthria 1 = Mild-to- moderate dysarthria; -11. Extinction and Inattention 0 - No abnormality -Total 3 Query Text:A score of 0 is normal or asymptomatic. Total possible score is 42 . ED: Notify Physician for NIHSS increase by > / = 3 points. Inpatient: RN or Physician to activate a stroke alert for NIHSS increase of > / = 3 points. Coma Scale [Assess] -Eye Opening Spontaneous -Motor Obeys Commands -Verbal Confused [Total] -Coma Scale Total 14
[2025-05-13] MEDS: fentaNYL drip 100 ML 5 MCG CONT INF (12:55)
[2025-05-13] MEDS: Vancomycin HCl 2,000 MG in 0.9% Normal Saline (500mL Bag) 500 ML 250 MG IV (12:59)
--- NOTE | 2025-05-13 14:11 | PCM.RX.CS ---
Consult Antibiotic Management Pharmacy has been consulted to manage selected antibiotic: Vancomycin Type of Intervention Type of Consult: New start Labs Labs: Sodium 140 mmol/L (133-145) 05/13/25 07:05 Potassium 4.0 mmol/L (3.3-5.1) 05/13/25 07:05 Chloride 111 mmol/L (98-108) H 05/13/25 07:05 Carbon Dioxide 17.5 mmol/L (21.0-32.0) L 05/13/25 07:05 Anion Gap 11 (5-15) 05/13/25 07:05 BUN 18 mg/dL (4-19) 05/13/25 07:05 Creatinine 0.50 mg/dL (0.70-1.20) L 05/13/25 07:05 Est GFR (MDRD) Non-Af 109 (>60) 05/13/25 07:05 BUN/Creatinine Ratio 35.3 RATIO (10-20) H 05/13/25 07:05 Glucose 141 mg/dL (70-99) H 05/13/25 07:05 Microbiology Microbiology: Microbiology 05/13/25 00:21 Sputum, Induced/[place]uk[place] Gram Stain - Final 05/12/25 14:20 Urine, Clean Catch Urine Culture - Preliminary GPC Poss Enterococcus sp Gram negative jake Dosing Weight Weight used for dosin kg Estimated Creatinine Clearance Estimated Creatinine Clearance: 138 ML/MIN Goal Trough Goal Trough: 15-20 mcg/mL Pharmacy Plan for Drug Dosing Pharmacy Plan for Drug Dosing: Give initial loading dose of 2000mg IV x1, then continue with 1000mg q8h per [facility] dosing protocol. Will check a trough before the 4th total dose. Pharmacy Service will continue to monitor and adjust dosing as required. Follow-Up Labs Follow-Up Labs: Trough: Vancomycin Date/Time Labs Ordered Labs to be done on [date and time ordered]: 05/14 12:30
[2025-05-13 14:36] LABS: Hematocrit 34.6 % (37-47); Hemoglobin 11.5 g/dL (12.0-15.0)
--- NOTE | 2025-05-13 15:15 | NURSING ---
notified COURTNEY Lewis pt has been accepted at [facility] via [employer]. questions answered.
--- NOTE | 2025-05-13 15:20 | NURSING ---
[facility]
[2025-05-13] MEDS: Lacosamide 200 MG in 0.9% Normal Saline (50mL Bag) 50 ML 100 MG IV (15:35)
--- NOTE | 2025-05-13 16:05 | NURSING ---
to [facility] via [employer]
--- NOTE | 2025-05-13 16:05 | NURSING ---
versed running at 2mg/hr or 4cc/hr when pt tx via [employer]
--- NOTE | 2025-05-13 18:17 | PCM.DC.SUM ---
Providers Date of Admission: 05/12/25 Date of Discharge: 05/13/25 Primary Care Physician: Dr. Riddhi Simpson MD Consultations 05/07/25 19:57 Consult: Tele-Neurology Routine Consulting Provider: [facility] Reason for Consult: altered mentation, seizure hx and demyelination on prior MRI EMERGENT Consult: No MD Notified: Yes Date Notified: 05/07/25 Time Notified: 20:31 Method of Notification: Answering Service Nursing Unit Staff Notify [facility] of Tele-Neurology Consult: Yes 05/12/25 18:51 Consult: Tele-Neurology Routine Consulting Provider: [facility] Reason for Consult: another breakthrough seizure EMERGENT Consult: Yes MD Notified: Yes Date Notified: 05/12/25 Time Notified: 18:52 Method of Notification: Verbal Nursing Unit Staff Notify [facility] of Tele-Neurology Consult: Yes 05/12/25 18:53 Consult: I&C Technician / Pulmonary Medicine Routine Consulting Provider: Pulmonary Medicine [facility] Reason for Consult: code blue, resp arrest EMERGENT Consult: No MD Notified: Yes Date Notified: 05/12/25 Time Notified: 18:53 Method of Notification: Verbal 05/12/25 21:44 Consult: Gastroenterology Routine Consulting Provider: [facility] Reason for Consult: food impaction EMERGENT Consult: No MD Notified: Yes Date Notified: 05/12/25 Time Notified: 19:00 Method of Notification: Verbal Reason For Visit: ALTERED MENTATION, STROKELIKE SYMPTOMS Diagnosis Discharge Diagnosis (1) Breakthrough seizure: Status: Acute Code(s): G40.919 - Epilepsy, unspecified, intractable, without status epilepticus (2) Urinary tract infection: Status: Acute Code(s): N39.0 - Urinary tract infection, site not specified (3) Cardiac arrest: Status: Acute Code(s): I46.9 - Cardiac arrest, cause unspecified (4) Food impaction of esophagus: Status: Acute Code(s): T18.128A - Food in esophagus causing other injury, initial encounter; W44.F3XA - Food entering into or through a natural orifice, initial encounter Plan #Breakthrough seizures w/ post ictal state #UTI with metabolic encephalopathy #Hx epilepsy # Aspiration event resulting in respiratory and subsequently cardiac arrest # Food impaction of esophagus # Diabetes # GERD # Anxiety # Seizures # Sick sinus syndrome status post pacemaker Medications at Discharge Home Medications insulin syr/ndl U100 half charbel 0.5 mL 31 gauge x 5/16 (Droplet Insulin Syringe (half unit)) 09/03/22 dextromethorphan 20 mg-quinidine 10 mg capsule (Nuedexta) 1 cap PO BID DEPRESSION 02/06/23 Lactobacillus rhamnosus GG 10 billion cell capsule (Culturelle) 1 cap PO DAILY recurrent uti 05/09/24 ascorbic acid (vitamin C) 500 mg tablet 500 mg PO QDAY see pcp 05/09/24 cranberry fruit 450 mg tablet 450 mg PO TID see pcp 05/09/24 flash glucose scanning reader (FreeStyle Es 2 [place]) #1 ea 10/30/24 flash glucose sensor (FreeStyle Es 2 Sensor kit) #3 ea 10/30/24 handicap placard #1 ea 11/15/24 omeprazole 40 mg capsule,delayed release 40 mg PO DAILY GERD #90 caps 01/03/25 melatonin 10 mg capsule 10 mg PO QHS sleep 01/19/25 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 sensor (FreeStyle Es 3 Sensor device) #3 ea 02/15/25 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,heating engineer,cont (FreeStyle Es 3 [place]) #1 ea 02/15/25 buspirone 5 mg tablet 5 mg PO TID PRN anxiety #90 tabs 02/15/25 cephalexin 250 mg capsule 250 mg PO QHS recurrent UTI #90 caps 02/15/25 insulin glargine 100 unit/mL (3 mL) subcutaneous pen 30 unit (0.3 mL) subcut QAM diabetes #15 mL 02/15/25 hydroxyzine HCl 25 mg tablet 50 mg PO QHS PRN anxiety 02/17/25 albuterol sulfate 2.5 mg/3 mL (0.083 %) solution for nebulization 2.5 mg (3 mL) inhalation Q2H PRN PRN Shortness Of Breath 30 days #360 mL 03/02/25 aspirin 81 mg tablet,delayed release (Adult Aspirin Regimen) 81 mg PO QDAY 03/08/25 atorvastatin 80 mg tablet 80 mg PO QHS cholesterol #90 tabs 03/08/25 carbamazepine 200 mg tablet (Tegretol) 200 mg PO TID seizures #90 tabs 03/18/25 gabapentin 800 mg tablet 800 mg PO QHS #30 tabs 03/18/25 galcanezumab-gnlm 120 mg/mL subcutaneous pen injector (Emgality Pen) 120 mg subcut QMONTH migraines #1 mL 03/18/25 ibuprofen 600 mg tablet 600 mg PO TID PRN headache/pain #90 tabs 03/18/25 ubrogepant 100 mg tablet (Ubrelvy) 100 mg PO .COMPLEX MIGRAINE #14 tabs 03/18/25 topiramate 100 mg tablet 100 mg PO BID #60 tabs 03/28/25 gabapentin 400 mg capsule 400 mg PO BID polyneuropathy 04/06/25 albuterol sulfate 90 mcg/actuation aerosol inhaler 2 puff inhalation Q6H PRN Wheezing 05/07/25 brexpiprazole 0.5 mg tablet (Rexulti) 0.5 mg PO DAILY 05/07/25 duloxetine 60 mg capsule,delayed release 60 mg PO DAILY 05/07/25 ferrous sulfate 325 mg (65 mg iron) tablet (Prieto-Time) 325 mg PO BID 05/07/25 fluticasone furoate 200 mcg/actuation blister powder for inhalation (Arnuity Ellipta) 1 inh inhalation DAILY 05/07/25 mirtazapine 30 mg tablet 30 mg PO QHS 05/07/25 onabotulinumtoxinA 100 unit solution for injection (Botox) 200 unit IM .COMPLEX Migraine headache w/o aura (ICD 10: G43.009) 05/07/25 semaglutide 0.25 mg or 0.5 mg (2 mg/3 mL) subcutaneous pen injector (Ozempic) 0.25 mg subcut QWEEK 05/07/25 tizanidine 2 mg tablet 2 mg PO TID muscle spasm 05/07/25 levocarnitine 330 mg tablet 330 mg PO BID blood clot 05/08/25 cenobamate 200 mg tablet (Xcopri) 200 mg PO .hs 05/09/25 Hospital Course Procedures EGD and Intubation Summary of Care Provided Minutes Spent on Discharge: 140 Hospital Course: 59-year-old female history of sick sinus syndrome with pacemaker, diabetes, GERD, anxiety, seizure disorder, migraines who presented to [facility] ED 05/07/2025 with altered mental status. Stroke alert was called with last known well the night prior at 2300. Patient brought to the ED and CT brain/CTA head and neck were unremarkable. Vitals in the ED were stable and lab work with white count of 11.1, hemoglobin 12.2, potassium 3.1. Normal lactic acid, troponin of 21 down trended to 16 and UA not suggestive of UTI. Hospitalist contacted for admission. MRI with no acute abnormality and only noted chronic changes but no new or active changes. EEG showed interictal expression of generalized epilepsy and mild diffuse encephalopathy with no active epileptiform discharges or seizures noted during the period of recording on 05/08. Teleneurology evaluated and suspected this was from breakthrough seizure with postictal state. Her carbamazepine was increased and patient was to follow-up with her outpatient neurologist. Patient had waxed and waned slightly over the next couple of days and then on 05/12/2025 due to her continued lack of return to baseline despite increase in carbamazepine [place] work [place] in, labs with normal white count, hemoglobin stable, ABG with a bicarb of 21.8, normal pH, no pCO2 retention. Kidney function stable, glucose 167. Ammonia within normal limits. UA was consistent with UTI, Rocephin ordered and if no improvement in mental status with treatment was considering repeat EEG and or involvement of teleneurology, no overt seizure activity noted at time my exam or by staff the patient was generally confused. While eating dinner 05/12/2025 patient had an aspiration event. Her bed exit alarm and BACK JOINER entered the room and patient was found to be choking and coughing, rapid response called and quickly turned into a CODE BLUE. Patient had CPR started at 1754 with high-quality CPR and had 200 J defibrillated as per verbal report there had been concern for V. tach. She subsequently had 1 of epinephrine at 1757, 1 L normal saline bolus and 1 amp of bicarb at 1800, during intubation respiratory noted multiple pieces of meat ball impacted in the esophagus and she was successfully intubated. With secured airway and improved oxygenation patient achieved ROSC at 1806 and had sinus arrhythmia. Was vitally stable and transferred to the ICU intubated. Once in the ICU repeat labs obtained which showed a white count of 15.7, hemoglobin 12.3, bicarb 18 with a gap of 21, BUN of 23 and a creatinine of 1, lactic post ROSC found to be 8.3, troponin of 26, post ROSC EKG with sinus arrhythmia. Patient had event on arrival to the ICU where she vomited and then clenched her jaw shut and was observed to have seizure activity, she was given 2 mg of Ativan and started on propofol drip and subsequently Versed drip. EEG ordered and teleneurology consult placed. Tele long term care pharmacist also evaluated patient, ultimately given concerns with repeat seizure and patient's mental status and teleneurology consult changed to stat. Patient was evaluated and was recommended 2 g of IV Keppra twice daily and a stat head CT was also recommended to transfer to site with continuous EEG. Spoke with patient's family who are agreeable and preferred [facility] or [facility]. [facility] no beds available, [facility] also unable to accommodate and [facility] does not have the capabilities. Did speak with long term care pharmacist at [facility] Dr. Simmons who accepted patient for transfer. Also of note prior to transfer patient did have EGD for residual food in the esophagus with successful removal. Unfortunately [facility] did not have a bed overnight and in the a.m. they were unable to give any estimate of when she would have a bed, there was still high concern for seizure activity and no availability of EEG at our hospital until tomorrow so teleneurology recommended seeking alternate locations for transfer, patient excepted to [facility]. Did ultimately get a PICC line as blood pressure was low, did not require pressors but was discovered she is growing possible Enterococcus in her urine so antibiotics broadened and vancomycin was added. Patient transferred to [facility] in stable condition Physical Exam Narrative General: Intubated and sedated HEENT: Atraumatic, normocephalic Eyes: Large pupils with no anisocoria Neck: Supple Respiratory: Mechanically ventilated Cardiovascular: Regular rate and rhythm GI: Soft, nontender, nondistended Extremities: No edema Musculoskeletal: Presently sedated and not moving extremities spontaneously Neuro: Unable to participate in neuro exam secondary to intubated and sedated Skin: No rashes appreciated Psych: Unable to cooperate secondary to intubated and sedated Weight / BMI Weight Weight: 89 kg Body Mass Index (BMI) 31.6 ABG / Lab / Microbiology Data 05/13/25 14:25 05/13/25 07:05 Laboratory: Laboratory Results - last 24 hr 05/12/25 14:20: Urine Color Emily, Urine Clarity Cloudy, Urine pH 5.0, Ur Specific Banco 1.025, Urine Protein 30 H, Urine Glucose (UA) Normal, Urine Ketones 5 H, Urine Occult Blood 10 H, Urine Nitrite Negative, Urine Bilirubin Negative, Urine Urobilinogen 1 H, Ur Leukocyte Esterase 500 H, Urine RBC 0 SEEN, Urine WBC 50-100 SEEN, Ur Squamous Epith Cells 5-10 SEEN, Calcium Oxalate Crystal 1+, Urine Bacteria 4+, Urine Mucus 0 SEEN 05/12/25 18:10: Total Creatine Kinase 93, Triglycerides 267 H 05/12/25 22:35: Lactic Acid 1.6 05/13/25 00:24: POC Glucose 195 H 05/13/25 05:39: POC Glucose 132 H 05/13/25 07:05: WBC 8.1, RBC 3.33 L, Hgb 10.6 L, Hct 32.1 L, MCV 96.4, MCH 31.8, MCHC 33.0, RDW Std Deviation 54.8 H, RDW Coeff of He 15.5 H, Plt Count 170, MPV 11.2, Immature Gran % (Auto) 0.200, Neut % (Auto) 66.5, Lymph % (Auto) 22.9, [place] % (Auto) 8.8, Eos % (Auto) 1.1, Baso % (Auto) 0.5, Absolute Neuts (auto) 5.4, Absolute Lymphs (auto) 1.86, Nucleated RBC % 0, Sodium 140, Potassium 4.0, Chloride 111 H, Carbon Dioxide 17.5 L, Anion Gap 11, BUN 18, Creatinine 0.50 L, Estim Creat Clear Calc 137.81, Est GFR (MDRD) Non-Af 109, BUN/Creatinine Ratio 35.3 H, Glucose 141 H, Calcium 6.8 L, Phosphorus 2.9, Magnesium 1.5, Total Bilirubin 0.21, AST 64 H, ALT 50 H, Alkaline Phosphatase 78, Total Protein 5.4 L, Albumin 3.2 L, Globulin 2.3, Albumin/Globulin Ratio 1.4 05/13/25 13:43: POC Glucose 169 H 05/13/25 14:25: Hgb 11.5 L, Hct 34.6 L Microbiology: Microbiology 05/13/25 00:21 Sputum, Induced/Lukens Gram Stain - Final 05/12/25 14:20 Urine, Clean Catch Urine Culture - Preliminary GPC Poss Enterococcus sp Gram negative jake ABG: ABG 05/12/25 05/13/25 20:00 04:34 Specimen Type ART ART Sample Site R Radial R Radial pH 7.37 7.40 Bicarbonate Actual 20.5 L 19.8 L Total CO2 22 21 Base Excess -5 L -5 L O2 Saturation 99 H 94 O2 % 100.0 40.0 ABG pCO2 35.8 32.1 L ABG pO2 162 H 69 L Shawn Test N/A N/A Respiration Rate 14 14 O2 Delivery Device Adult Vent Adult Vent Vent Mode AC AC Tidal Volume 450.0 450.0 POC PEEP 5 5 Radiography Diagnostic Testing: Radiology Impression Chest X-Ray 05/12/25 19:05 IMPRESSION: 1. Endotracheal tube tip terminates close to the sienna, consider retraction. 2. Questionable PICC line in the right upper extremity terminating in the mid aspect of the upper arm. Correlate with exam. 3. Linear opacity in the left mid lung zone may represent atelectasis or infection. Reading Location: [id number] Brain CT 05/12/25 20:43 IMPRESSION: No CT evidence of acute intracranial pathology. Mild-moderate volume loss and chronic microangiopathic changes. Likely component of demyelinating lesions in the cerebral white matter as demonstrated on previous brain MRI. Reading Location: [facility] KUB X-Ray 05/12/25 23:50 IMPRESSION: 1. Nonobstructive gas pattern. No free air appreciated. 2. Moderate stool burden throughout the colon. 3. Enteric tube terminating in the distal stomach/proximal duodenum. Reading Location: [facility] Chest X-Ray 05/13/25 08:50 IMPRESSION: The endotracheal tube tip is at the level of the sienna. Consider retraction by a proximally 2.5 cm. Additional findings as above. Reading Location[facility] Chest X-Ray 05/13/25 12:26 IMPRESSION: Malposition of ETT. See above. NG tube and PICC line appear satisfactorily positioned. Question of right perihilar and inferomedial left infiltrate. Reading Location: [facility] D/C Instructions DC O2, CPAP, BIPAP Needs Home O2 Discharge instructions: No Meaningful Use Info Meaningful Use Meaningful Use Diagnoses (Choose all that apply): None applicable Discharge Plan Admission Admit Date/Time: 05/12/25 15:02 Attending Provider: Arianne Jefferson Primary Care Provider: Riddhi Simpson Consulting Providers: Luis Fernando Fuller; Monica Lebron; Kristy Ferrer; Navneet Reyna; John Kurtz; Mazin Ortiz; KEM BE; Niecy Shah; Rocio Sarmiento; Richard Jackson; Karoline Meyer; Carlo Ahumada; Kim Lomeli; Pao Beckham; Wilfred Brown; Nena Cavazos; Bib Duncan; Quinten Chang; Peggy Thomas; Julius Patton; Willis Jovel; Rajesh Heath; Sedrick Michelle; Naman Adames; Khang Birmingham; Abby Barnes; Lynn Fu; Joe Luu; Charbel Parra; Bernard Zeng; Paco Ríos; Aman Almodovar; Micah Marie; Lj Chow; Bibiana Becker; Richar Echevarria; Donita Lucero; John Flowers; Joanne Patino; Rico Aleman; Shin Bedolla; Libia Jose; Damon Coburn; Reyes Momin; Jonathan Najera; Mya Green; Suzy Ceballos; Dorota Culver; Lesley Alston; Kassi Ayala; Charbel Hidalgo; Brennan Olivera; Saray Lemus; Torsten Connelly; Willis Gibson; Brennan Cheek; Amos Hamlin; Brennon Elias; Darrin Sanderson; Gilda Retana; Graeme Lo; Rod Farnsworth; Sue Pitt; Saul Dorman; Tess Ramesh; Hilaria,Sambear; Oscar Barnhart; Payal,Aakash; Turfe,Drew; Jeff Gonzalez; Genie Jones; Stanley Vazquez; Amarilys Olson NP; Misa Velez; Forrest Pascal; Contreras John; Jordana Blackwood; Monik Hauser; Beata Parra Discharge Orders/Prescriptions Prescriptions: No Action cranberry fruit 450 mg tablet 450 mg PO TID Rx Instructions: administer with meals Culturelle 10 billion cell capsule 1 cap PO DAILY ascorbic acid (vitamin C) 500 mg tablet 500 mg PO QDAY (DME) FreeStyle Es 2 Sensor Kit MISCELLANEOUS Qty: 3 0RF Rx Instructions: As directed (DME) FreeStyle Es 2 [place] Misc MISCELLANEOUS Qty: 1 0RF Rx Instructions: As directed cephalexin 250 mg capsule 250 mg PO QHS Qty: 90 0RF Patient Comments: 90 buspirone 5 mg tablet 5 mg PO TID PRN (Reason: anxiety) Qty: 90 1RF (DME) FreeStyle Es 3 [place] Misc See Rx Instructions .Route Qty: 1 3RF Rx Instructions: As directed (DME) FreeStyle Es 3 Sensor Device See Rx Instructions .Route Qty: 3 5RF Rx Instructions: As directed insulin glargine 100 unit/mL (3 mL) insulin pen 30 unit SUBCUT QAM Qty: 15 2RF carbamazepine [Tegretol] 200 mg tablet 200 mg PO TID Qty: 90 3RF gabapentin 800 mg tablet 800 mg PO QHS Qty: 30 3RF Emgality Pen 120 mg/mL pen injector 120 mg subcut QMONTH Qty: 1 3RF ibuprofen 600 mg tablet 600 mg PO TID PRN (Reason: headache/pain) Qty: 90 3RF Ubrelvy 100 mg tablet 100 mg PO .COMPLEX Qty: 14 3RF Rx Instructions: Take 1 tablet orally every 2 hours as needed for headache up to 2 tablets/day. topiramate 100 mg tablet 100 mg PO BID Qty: 60 3RF aspirin [Adult Aspirin Regimen] 81 mg tablet,delayed release (DR/EC) 81 mg PO QDAY atorvastatin 80 mg tablet 80 mg PO QHS Qty: 90 0RF (DME) Droplet Insulin Syr(half unit) 0.5 mL 31 gauge x 5/16 syringe MISCELLANEOUS Patient Comments: USE TO INJECT INSULIN UNDER THE SKIN EVERY MEAL AND AT BEDTIME PER SLIDING SCALE Nuedexta 20-10 mg capsule 1 cap PO BID melatonin 10 mg capsule 10 mg PO QHS hydroxyzine HCl 25 mg tablet 50 mg PO QHS PRN albuterol sulfate 2.5 mg /3 mL (0.083 %) Solution For Nebulization 2.5 mg inhalation Q2H PRN PRN (Reason: Shortness Of Breath) 30 Days Qty: 360 0RF gabapentin 400 mg capsule 400 mg PO BID mirtazapine 30 mg tablet 30 mg PO QHS duloxetine 60 mg capsule,delayed release(DR/EC) 60 mg PO DAILY fluticasone furoate [Arnuity Ellipta] 200 mcg/actuation blister with device 1 inh INHALATION DAILY Rexulti 0.5 mg tablet 0.5 mg PO DAILY ferrous sulfate [Prieto-Time] 325 mg (65 mg iron) tablet 325 mg PO BID tizanidine 2 mg tablet 2 mg PO TID Ozempic 0.25 mg or 0.5 mg (2 mg/3 mL) pen injector 0.25 mg subcut QWEEK Botox 100 unit recon soln 200 unit IM .COMPLEX Rx Instructions: 200 units intramuscularly [id number]; albuterol sulfate 90 mcg/actuation HFA aerosol inhaler 2 puff INHALATION Q6H PRN (Reason: Wheezing) levocarnitine 330 mg tablet 330 mg PO BID Xcopri 200 mg tablet 200 mg PO .hs (DME) handicap placard See Rx Instructions .ROUTE .MEDSUPPLY Qty: 1 0RF Rx Instructions: Length of time: 5 years Diagnosis: Impaired physical mobility z74.09 omeprazole 40 mg capsule,delayed release(DR/EC) 40 mg PO DAILY Qty: 90 0RF Referrals / Follow Up: Riddhi Simpson MD [Primary Care Provider, Internal Medicine] Disposition Disposition (needs filled in before D/C Order can be placed): Acute Care Hospital Charges/Coding Visit Charges Inpatient E&M: 71638 Disch Hosp >30min
== END 2025-05-13 16:05 | disposition short-term general hospital (02) | DRG 100 ==
LOC: ED 18:02 → PCU 18:24 → ICU 05-12 18:20
PROVIDERS: Internal Medicine; Internal Medicine Gastroenterology; Admitting Provider Hospitalist; Emergency Provider Student in an Organized Health Care Education/Training Program; PCP Internal Medicine; Visit Provider Internal Medicine
PROC: 0DJ08ZZ Inspection of Upper Intestinal Tract, Via Natural or Artificial Opening Endoscopic (ICD-10-PCS; CPT 43235; principal; 2025-05-12 20:00)
DX: G40.409 Other generalized epilepsy and epileptic syndromes, not intractable, without status epilepticus (principal); G93.41 Metabolic encephalopathy; J96.01 Acute respiratory failure with hypoxia; I46.9 Cardiac arrest, cause unspecified; T17.828A Food in other parts of respiratory tract causing other injury, initial encounter; I48.92 Unspecified atrial flutter; E87.20 Acidosis, unspecified; I45.2 Bifascicular block; N39.0 Urinary tract infection, site not specified; J44.9 Chronic obstructive pulmonary disease, unspecified; E11.40 Type 2 diabetes mellitus with diabetic neuropathy, unspecified; E66.813 Obesity, class 3; I10 Essential (primary) hypertension; F32.A Depression, unspecified; I49.5 Sick sinus syndrome; G43.709 Chronic migraine without aura, not intractable, without status migrainosus; F41.9 Anxiety disorder, unspecified; K21.9 Gastro-esophageal reflux disease without esophagitis; E78.00 Pure hypercholesterolemia, unspecified; Z79.4 Long term (current) use of insulin; E87.6 Hypokalemia; M54.2 Cervicalgia; I95.9 Hypotension, unspecified; G35.D Multiple sclerosis, unspecified; W44.F3XA Food entering into or through a natural orifice, initial encounter; R53.81 Other malaise; G89.29 Other chronic pain; R53.1 Weakness; Z86.73 Personal history of transient ischemic attack (TIA), and cerebral infarction without residual deficits; Z95.0 Presence of cardiac pacemaker; Z87.19 Personal history of other diseases of the digestive system; Z79.82 Long term (current) use of aspirin; Z90.49 Acquired absence of other specified parts of digestive tract; Z79.51 Long term (current) use of inhaled steroids; Z79.84 Long term (current) use of oral hypoglycemic drugs; Z68.31 Body mass index [BMI] 31.0-31.9, adult; Z79.899 Other long term (current) drug therapy
CPT/HCPCS: 31500; 31720; 36415; 36569; 36600; 70450; 70496; 70498; 70553; 71045; 71046; 74018; 80048; 80053; 80201; 81001; 82140; 82550; 82803; 82962; 83605; 83735; 84100; 84478; 84484; 85014; 85018; 85025; 85610; 85730; 87070; 87077; 87086; 87088; 87186; 87205; 92950; 93005; 94002; 94003; 94640; 94762; 95819; 97116; 97162; 97166; 97530; 97535; 97802; 99285; 99406; A9575; P9612; Q9967; A4216; C9254

== ENCOUNTER 2025-05-21 09:58 | Emergency (ER) | payer MEDICARE, MEDICAID, SELFPAY ==
[2025-05-21] VITALS (8 sets, daily range): BP systolic 123–158; BP diastolic 62–76; PULSE 60–105; RESP 13–20; TEMP 36.6–37.4; O2SAT 97–100; BMI 33.2
--- NOTE | 2025-05-21 10:09 | RAD_ITS ---
PROCEDURE: CHEST PA AND LATERAL 05/21/2025 REASON FOR EXAM: SOB TECHNIQUE: Procedure Code: RADCXR Modality: DX Procedure: CHEST PA AND LATERAL COMPARISON: May 13, 2025. FINDINGS: Hardware: Right-sided dual-chamber pacemaker is seen. Heart: Mild cardiomegaly. Mediastinum: The mediastinal contour is unremarkable. Lungs: Mild degree of vascular congestion. Bones: Degenerative changes are identified within the thoracic spine. Surgical clips are seen in the right upper quadrant suggestive of prior cholecystectomy. RAD/Chest PA and Lateral IMPRESSION: Cardiomegaly and vascular congestion in keeping with mild CHF. Reading Location: [place] [id number]
--- NOTE | 2025-05-21 10:09 | EKG12_ITS ---
Test Reason : FALL Blood Pressure : */* mmHG Vent. Rate : 77 BPM Atrial Rate : 77 BPM P-R Int : * ms QRS Dur : 154 ms QT Int : 428 ms P-R-T Axes : 14 -86 19 degrees QTcB Int : 484 ms Atrial-paced rhythm Right bundle branch block Left anterior fascicular block Bifascicular block Septal infarct , age undetermined Lateral infarct , age undetermined Abnormal ECG baseline artifact Confirmed by Pelon Valero ([id number]), editor in chief newspaper MAHESH VASQUEZ ([id number]) on 05/22/2025 11:50:54 AM Referred By: Confirmed By: Pelon Valero
--- NOTE | 2025-05-21 10:13 | EX.ED.DYSGE1 ---
HPI History of Present Illness Chief Complaint: Alt LOC Narrative Narrative: Patient is a 59-year-old female with past medical history of COPD chronically on 4 L nasal cannula, type 2 diabetes, seizure, persistent atrial fibrillation was on warfarin reportedly was recently stopped, recent cardiac arrest, pacemaker placement, end-stage renal disease on dialysis who presents to the emergency department chief complaint of altered mental status. History of present illness unobtainable from the patient secondary to her altered mental status therefore acute care caveat applies. According to nursing staff and EMS per them the dna sequencing associate went out to check on her and noted that she was not acting her normal self called EMS when they arrived she was hypoxic on her 4 L nasal cannula therefore they placed her on 6 L and had improvement of her oxygenation however did note that she had a fall likely on Wednesday with bruising to her forehead. [facility] Medical History (Updated 05/21/25 @ 16:[address] 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 Presence of cardiac pacemaker Sick sinus syndrome Former smoker Asthma History of COPD History of diabetes mellitus Syncope Symptomatic bradycardia Seizures Hx of type 2 diabetes mellitus Epilepsy Seizure Palpitations Hyperammonemia Cerebrovascular disease Myalgia Low back pain Dorsalgia Neck pain Migraine headache without aura Polyneuropathy Multiple sclerosis Demyelinating disease of central nervous system Epilepsy Generalized weakness Generalized weakness Recurrent falls Recurrent syncope Anxiety Depression COPD (chronic obstructive pulmonary disease) Migraines Multiple falls Debility Gastroenteritis Diabetes mellitus, type 2 History of CVA (cerebrovascular accident) GERD (gastroesophageal reflux disease) Obesity Former tobacco use Seizure disorder Allergic rhinitis Chronic migraine Orthostasis HTN (hypertension) COVID-19 virus infection General weakness Bradycardia Slurred speech Psoriasis Hypercholesterolemia Home Medications Medication Instructions Recorded Last Taken Type insulin syr/ndl U100 half shirley 0.5 09/03/22 Unknown History mL 31 gauge x 5/16" (Droplet Insulin Syringe (half unit)) dextromethorphan 20 mg-quinidine 1 cap PO BID DEPRESSION 02/06/23 05/07/25 History 10 mg capsule (Nuedexta) Lactobacillus rhamnosus GG 10 1 cap PO DAILY recurrent uti 05/09/24 05/07/25 History billion cell capsule (Culturelle) ascorbic acid (vitamin C) 500 mg 500 mg PO QDAY see pcp 05/09/24 05/07/25 History tablet cranberry fruit 450 mg tablet 450 mg PO TID see pcp 05/09/24 05/07/25 History flash glucose scanning reader #1 ea 10/30/24 Unknown Rx (FreeStyle Es 2 [place]) flash glucose sensor (FreeStyle #3 ea 10/30/24 Unknown Rx Es 2 Sensor kit) handicap placard #1 ea 11/15/24 Unknown Rx omeprazole 40 mg capsule,delayed 40 mg PO DAILY GERD #90 caps 01/03/25 05/07/25 Rx release melatonin 10 mg capsule 10 mg PO QHS sleep 01/19/25 05/06/25 History 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 sensor (FreeStyle #3 ea 02/15/25 Unknown Rx Es 3 Sensor device) 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,executor of estate,cont #1 ea 02/15/25 Unknown Rx (FreeStyle Es 3 [place]) buspirone 5 mg tablet 5 mg PO TID PRN anxiety #90 tabs 02/15/25 05/07/25 Rx cephalexin 250 mg capsule 250 mg PO QHS recurrent UTI #90 02/15/25 05/06/25 Rx caps insulin glargine 100 unit/mL (3 30 unit (0.3 mL) subcut QAM 02/15/25 05/07/25 Rx mL) subcutaneous pen diabetes #15 mL hydroxyzine HCl 25 mg tablet 50 mg PO QHS PRN anxiety 02/17/25 05/06/25 History albuterol sulfate 2.5 mg/3 mL 2.5 mg (3 mL) inhalation Q2H PRN 03/02/25 Unknown Rx (0.083 %) solution for nebulization PRN Shortness Of Breath 30 days #360 mL aspirin 81 mg tablet,delayed 81 mg PO QDAY 03/08/25 05/07/25 History release (Adult Aspirin Regimen) atorvastatin 80 mg tablet 80 mg PO QHS cholesterol #90 tabs 03/08/25 05/06/25 Rx carbamazepine 200 mg tablet 200 mg PO TID seizures #90 tabs 03/18/25 05/07/25 Rx (Tegretol) gabapentin 800 mg tablet 800 mg PO QHS #30 tabs 03/18/25 05/06/25 Rx galcanezumab-gnlm 120 mg/mL 120 mg subcut QMONTH migraines #1 03/18/25 04/11/25 Rx subcutaneous pen injector mL (Emgality Pen) ibuprofen 600 mg tablet 600 mg PO TID PRN headache/pain 03/18/25 05/07/25 Rx #90 tabs ubrogepant 100 mg tablet (Ubrelvy) 100 mg PO .COMPLEX MIGRAINE #14 03/18/25 Unknown Rx tabs topiramate 100 mg tablet 100 mg PO BID #60 tabs 03/28/25 05/07/25 Rx gabapentin 400 mg capsule 400 mg PO BID polyneuropathy 04/06/25 05/07/25 History albuterol sulfate 90 mcg/actuation 2 puff inhalation Q6H PRN Wheezing 05/07/25 Unknown History aerosol inhaler brexpiprazole 0.5 mg tablet 0.5 mg PO DAILY 05/07/25 05/06/25 History (Rexulti) duloxetine 60 mg capsule,delayed 60 mg PO DAILY 05/07/25 05/07/25 History release ferrous sulfate 325 mg (65 mg 325 mg PO BID 05/07/25 05/07/25 History iron) tablet (Prieto-Time) fluticasone furoate 200 1 inh inhalation DAILY 05/07/25 05/07/25 History mcg/actuation blister powder for inhalation (Arnuity Ellipta) mirtazapine 30 mg tablet 30 mg PO QHS 05/07/25 05/06/25 History onabotulinumtoxinA 100 unit 200 unit IM .COMPLEX Migraine 05/07/25 03/20/25 History solution for injection (Botox) headache w/o aura (ICD 10: G43.009) semaglutide 0.25 mg or 0.5 mg (2 0.25 mg subcut QWEEK 05/07/25 05/03/25 History mg/3 mL) subcutaneous pen injector (Ozempic) tizanidine 2 mg tablet 2 mg PO TID muscle spasm 05/07/25 05/07/25 History levocarnitine 330 mg tablet 330 mg PO BID blood clot 05/08/25 Unknown History cenobamate 200 mg tablet (Xcopri) 200 mg PO .hs 05/09/25 Unknown History amoxicillin 875 mg-potassium 1 tab PO BID 05/21/25 Unknown History clavulanate 125 mg tablet Allergy/AdvReac Type Severity Reaction Status Date / Time adhesive tape Allergy Intermediate Rash Verified 05/21/25 10:00 latex Allergy Rash Verified 05/21/25 10:00 levofloxacin (From Levaquin) Allergy Hives Verified 05/21/25 10:00 meloxicam Allergy dizzy Verified 05/21/25 10:00 ondansetron (From Zofran) Allergy Hives Verified 05/21/25 10:00 buprenorphine AdvReac Severe syncope Verified 05/21/25 10:00 pregabalin (From Lyrica) AdvReac Severe syncope Verified 05/21/25 10:00 nalbuphine (From Nubain) AdvReac Other Verified 05/21/25 10:00 Family History Father Hypertension Hyperlipidemia Asthma Colon cancer Mother Cancer lung Aunt Breast cancer Aunt Breast cancer Grandmother Cancer ovarian Grandfather Cancer prostate Grandmother Cancer Uncle Hypertension Aunt Hypertension Sister Hypertension Asthma Surgical History History of appendectomy Hx of tubal ligation Hx of tonsillectomy Hx of cholecystectomy Social History household members: other details: Baby sister. 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 Smoking Status: Never smoker alcohol intake: never substance use type: does not use do you feel safe at home: Yes ROS ROS ED ROS Narrative Review of systems unobtainable from the patient secondary to altered mental status therefore acute care caveat applies EXAM Physical Exam Narrative Exam Narrative: General: Patient was lying in bed did not appear to be in acute distress Head: Patient has a right sided forehead hematoma noted, normocephalic Eyes: PERRL bilaterally, EOMI bilaterally, no conjunctival injection noted no raccoon eyes no Alejandre sign Neck: Soft, supple, trachea midline Cardiovascular: Regular rate and rhythm Respiratory: Coarse breath sounds bilaterally Abdomen: Soft, nondistended, nontender to palpation Extremities: +4/5 strength noted in the bilateral upper extremities and +3/5 strength noted in the bilateral lower extremities Neurological: Patient was able to tell us her name however she was confused on the year and where she was Skin: Warm, dry, see head Const Vital Signs: 05/21/25 10:00 05/21/25 10:09 05/21/25 10:45 Temperature 97.8 F Temperature Source Oral Pulse Rate 80 105 H Respiratory Rate 16 20 H Respiratory Pattern Tachypnea Blood Pressure 123/76 H Blood Pressure Mean 91 Pulse Ox 98 Oxygen Delivery Method Room Air Nasal Cannula Oxygen Flow Rate (L/min) 6 Fraction of Inspired Oxygen (FIO2) 96 05/21/25 10:45 05/21/25 11:18 05/21/25 12:00 Temperature 98.7 F 98.7 F Temperature Source Oral Oral Pulse Rate 61 68 Respiratory Rate 13 16 Respiratory Pattern Blood Pressure 131/62 H 137/66 H Blood Pressure Mean 85 89 Pulse Ox 97 100 Oxygen Delivery Method Nasal Cannula Nasal Cannula Oxygen Flow Rate (L/min) 6 6 Fraction of Inspired Oxygen (FIO2) 05/21/25 13:00 05/21/25 14:00 05/21/25 15:00 Temperature 98.8 F 99.4 F H 98.5 F Temperature Source Oral Oral Oral Pulse Rate 64 60 60 Respiratory Rate 16 20 H 16 Respiratory Pattern Blood Pressure 136/67 H 158/67 H 158/67 H Blood Pressure Mean 90 97 97 Pulse Ox 97 100 97 Oxygen Delivery Method Nasal Cannula Oxygen Flow Rate (L/min) 4.5 Fraction of Inspired Oxygen (FIO2) MDM MDM MDM Narrative Medical decision making narrative: Patient is a 59-year-old female who presented to the emergency department chief complaint of altered mental status. On the differential diagnose includes but not limited to intracranial hemorrhage, hypercapnic respiratory failure, COPD exacerbation, pneumonia, pneumothorax, ACS. Once workup is obtained reviewed she will be reevaluated. Patient be given 2 DuoNebs, Solu-Medrol Patient's CBC was reviewed and showed a leukocytosis of 17,000, hemoglobin was 10.4, platelet count of 249. Patient INR normal at 1.6, PT 19.1. Patient's ABG was reviewed showed pH as normal at 7.38 with a pCO2 at 34.2. Patient sodium was 139, potassium normal 4.3, creatinine was normal at 0.79. Patient lactic acid less than 1, AST and ALT are 32 and 31 respectively. Patient troponin was 34 and 31 respectively. Patient urinalysis reviewed and showed no evidence of infection. Patient CT head and brain without contrast reviewed and showed chronic changes no acute findings she has small scalp hematoma overlying the right frontal bone where she fell and hit her head. Patient CT cervical spine reviewed and showed no acute traumatic injury she has loss of lordosis noted grade 1 spondylolisthesis at C3-C4 0.3 cm. Patient chest x-ray reviewed by myself by radiology showed cardiomegaly and vascular congestion with mild CHF. Patient's EKG showed atrial paced rhythm with evidence of right bundle branch block with a rate of 77 bpm. Did add a proBNP on which was elevated 1139 At this point in time there is no identifiable source of infection however given her leukocytosis and metabolic encephalopathy will cover with IV antibiotics vancomycin and cefepime which were ordered at 1256. Given her metabolic encephalopathy, worsening acute on chronic respiratory failure will discuss case with hospitalist for admission. Discussed case with hospitalist Dr. Pascal and he is requesting transfer to [facility] where she was transferred to last time as we do not have continuous EEG monitoring with her altered mental status Discussed case with transfer line at [facility] and they noted that they would get back to us. Transfer line called back and has a accepting physician Dr. Brock who accept the patient for admission. I called and updated the power of employment attorney her sister and they are ultimately agreeable to this plan. All question concerns were answered on the phone. Lab Data Labs: Laboratory Results - last 24 hr 05/21/25 05/21/25 05/21/25 10:20 11:18 12:25 WBC 17.2 H RBC 3.29 L Hgb 10.4 L Hct 31.8 L MCV 96.7 MCH 31.6 MCHC 32.7 RDW Std Deviation 53.2 H RDW Coeff of He 15.2 H Plt Count 249 MPV 10.4 Immature Gran % (Auto) 0.600 Neut % (Auto) 88.9 H Lymph % (Auto) 4.2 L [place] % (Auto) 6.0 Eos % (Auto) 0.1 Baso % (Auto) 0.2 Absolute Neuts (auto) 15.3 H Absolute Lymphs (auto) 0.73 L Nucleated RBC % 0 PT 19.1 H INR 1.6 APTT 35.1 Sodium 139 Potassium 4.3 Chloride 109 H Carbon Dioxide 18.5 L Anion Gap 12 BUN 7 Creatinine 0.79 Estim Creat Clear Calc 89.33 Est GFR (MDRD) Non-Af 87 BUN/Creatinine Ratio 9.1 L Glucose 110 H Lactic Acid < 1.0 Calcium 8.7 Total Bilirubin 0.21 AST 32 ALT 31 Alkaline Phosphatase 85 Troponin T High Sens 34 H D Troponin T Hi Sens 2 Hr 31 H Troponin T Hi Sens 4Hr NT pro BNP II 1139 H Total Protein 6.1 Albumin 3.5 Globulin 2.7 Albumin/Globulin Ratio 1.3 Urine Color Yellow Urine Clarity Clear Urine pH 6.5 Ur Specific [place] 1.010 Urine Protein 15 H Urine Glucose (UA) Normal Urine Ketones Negative Urine Occult Blood Negative Urine Nitrite Negative Urine Bilirubin Negative Urine Urobilinogen Normal Ur Leukocyte Esterase 25 H Urine RBC 0 SEEN Urine WBC 0-5 SEEN Ur Squamous Epith Cells 0-5 SEEN Urine Bacteria 0 SEEN Urine Mucus 0 SEEN 05/21/25 14:15 WBC RBC Hgb Hct MCV MCH MCHC RDW Std Deviation RDW Coeff of He Plt Count MPV Immature Gran % (Auto) Neut % (Auto) Lymph % (Auto) [place] % (Auto) Eos % (Auto) Baso % (Auto) Absolute Neuts (auto) Absolute Lymphs (auto) Nucleated RBC % PT INR APTT Sodium Potassium Chloride Carbon Dioxide Anion Gap BUN Creatinine Estim Creat Clear Calc Est GFR (MDRD) Non-Af BUN/Creatinine Ratio Glucose Lactic Acid Calcium Total Bilirubin AST ALT Alkaline Phosphatase Troponin T High Sens Troponin T Hi Sens 2 Hr Troponin T Hi Sens 4Hr 27 H NT pro BNP II Total Protein Albumin Globulin Albumin/Globulin Ratio Urine Color Urine Clarity Urine pH Ur Specific [place] Urine Protein Urine Glucose (UA) Urine Ketones Urine Occult Blood Urine Nitrite Urine Bilirubin Urine Urobilinogen Ur Leukocyte Esterase Urine RBC Urine WBC Ur Squamous Epith Cells Urine Bacteria Urine Mucus ABG Data ABG results: ABG 05/21/25 10:45 Specimen Type ART Sample Site R Radial pH 7.38 Bicarbonate Actual 20.0 L Total CO2 21 Base Excess -5 L O2 Saturation 95 O2 % 6.0 ABG pCO2 34.2 L ABG pO2 75 Shawn Test Positive O2 Delivery Device Not entered Vent Mode Not entered Radiography Diagnostic Testing: Clinical Impression(s) from Imaging Studies Chest X-Ray 05/21/25 10:09 IMPRESSION: Cardiomegaly and vascular congestion in keeping with mild CHF. Reading Location: [facility] 05/21/25 11:45 IMPRESSION: CHRONIC CHANGES. NO ACUTE FINDINGS. Small scalp hematoma overlying the right frontal bone. Reading Location: [facility] 05/21/25 11:45 IMPRESSION: There is loss of the lordosis. There is grade 1 spondylolisthesis at C3-4, 0.3 cm. There is loss of disc height from C4-T1. There is no visible acute traumatic injury. [facility] T[facility] Chief Complaint: Alt LOC ED Provider: Arcadio Finn Dx/Rx/DC Orders Clinical Impression: Metabolic encephalopathy, Acute on chronic hypoxic respiratory failure, Leukocytosis, History of seizure, Hx of type 2 diabetes mellitus, History of CVA (cerebrovascular accident) Prescriptions: No Action cranberry fruit 450 mg tablet 450 mg PO TID Rx Instructions: administer with meals Culturelle 10 billion cell capsule 1 cap PO DAILY ascorbic acid (vitamin C) 500 mg tablet 500 mg PO QDAY (DME) FreeStyle Es 2 Sensor Kit MISCELLANEOUS Qty: 3 0RF Rx Instructions: As directed (DME) FreeStyle Es 2 [place] Misc MISCELLANEOUS Qty: 1 0RF Rx Instructions: As directed cephalexin 250 mg capsule 250 mg PO QHS Qty: 90 0RF Patient Comments: 90 buspirone 5 mg tablet 5 mg PO TID PRN (Reason: anxiety) Qty: 90 1RF (DME) FreeStyle Es 3 [place] Misc See Rx Instructions .Route Qty: 1 3RF Rx Instructions: As directed (DME) FreeStyle Es 3 Sensor Device See Rx Instructions .Route Qty: 3 5RF Rx Instructions: As directed insulin glargine 100 unit/mL (3 mL) insulin pen 30 unit SUBCUT QAM Qty: 15 2RF carbamazepine [Tegretol] 200 mg tablet 200 mg PO TID Qty: 90 3RF gabapentin 800 mg tablet 800 mg PO QHS Qty: 30 3RF Emgality Pen 120 mg/mL pen injector 120 mg subcut QMONTH Qty: 1 3RF ibuprofen 600 mg tablet 600 mg PO TID PRN (Reason: headache/pain) Qty: 90 3RF Ubrelvy 100 mg tablet 100 mg PO .COMPLEX Qty: 14 3RF Rx Instructions: Take 1 tablet orally every 2 hours as needed for headache up to 2 tablets/day. topiramate 100 mg tablet 100 mg PO BID Qty: 60 3RF aspirin [Adult Aspirin Regimen] 81 mg tablet,delayed release (DR/EC) 81 mg PO QDAY atorvastatin 80 mg tablet 80 mg PO QHS Qty: 90 0RF (DME) Droplet Insulin Syr(half unit) 0.5 mL 31 gauge x 5/16" syringe MISCELLANEOUS Patient Comments: USE TO INJECT INSULIN UNDER THE SKIN EVERY MEAL AND AT BEDTIME PER SLIDING SCALE Nuedexta 20-10 mg capsule 1 cap PO BID melatonin 10 mg capsule 10 mg PO QHS hydroxyzine HCl 25 mg tablet 50 mg PO QHS PRN albuterol sulfate 2.5 mg /3 mL (0.083 %) Solution For Nebulization 2.5 mg inhalation Q2H PRN PRN (Reason: Shortness Of Breath) 30 Days Qty: 360 0RF gabapentin 400 mg capsule 400 mg PO BID mirtazapine 30 mg tablet 30 mg PO QHS duloxetine 60 mg capsule,delayed release(DR/EC) 60 mg PO DAILY fluticasone furoate [Arnuity Ellipta] 200 mcg/actuation blister with device 1 inh INHALATION DAILY Rexulti 0.5 mg tablet 0.5 mg PO DAILY ferrous sulfate [Prieto-Time] 325 mg (65 mg iron) tablet 325 mg PO BID tizanidine 2 mg tablet 2 mg PO TID Ozempic 0.25 mg or 0.5 mg (2 mg/3 mL) pen injector 0.25 mg subcut QWEEK Botox 100 unit recon soln 200 unit IM .COMPLEX Rx Instructions: 200 units intramuscularly [id number]; albuterol sulfate 90 mcg/actuation HFA aerosol inhaler 2 puff INHALATION Q6H PRN (Reason: Wheezing) levocarnitine 330 mg tablet 330 mg PO BID Xcopri 200 mg tablet 200 mg PO .hs amoxicillin-pot clavulanate 875-125 mg tablet 1 tab PO BID (DME) handicap placard See Rx Instructions .ROUTE .MEDSUPPLY Qty: 1 0RF Rx Instructions: Length of time: 5 years Diagnosis: Impaired physical mobility z74.09 omeprazole 40 mg capsule,delayed release(DR/EC) 40 mg PO DAILY Qty: 90 0RF Primary Care Provider: Riddhi Simpson Referrals: Riddhi Simpson MD [Primary Care Provider, Internal Medicine] Print Language: French Disposition Disposition: DC/Tx to Another Type of HCF
[2025-05-21 10:38] LABS: Hematocrit 31.8 % (37-47); Hemoglobin 10.4 g/dL (12.0-15.0); Immature Granulocytes Count 0.100 X10^3/uL (0.0-0.0); Mean Corp Hgb Conc 32.7 g/dL (32-36); Mean Corpuscular Volume 96.7 fL (81-99); Mean Platelet Vol. 10.4 fl (6.2-12.0); NRBC Flagged by Analyzer 0 % (0-5); Platelet Count 249 K/mm3 (150-450); RBC Distribution Width CV 15.2 % (11.6-14.6); RBC Distribution Width SD 53.2 fl (35.1-43.9); Red Blood Count 3.29 M/mm3 (4.2-5.4); White Blood Count 17.2 K/mm3 (4.4-11.0)
[2025-05-21] MEDS: 0.9% Normal Saline (500mL Bag) 500 ML 999 ML IV (10:38)
[2025-05-21 10:49] LABS: Allen Test Positive; Base Excess -5 mmol/L (-2 to +2); FI02 6.0; PO2 75 mmHG (75-100); SITE R Radial; SO2 95 % (94-98)
[2025-05-21 10:53] LABS: Prothrombin Time (Protime)PT. 19.1 SECONDS (11.7-14.9)
[2025-05-21 10:54] LABS: Partial Thromboplast Time 35.1 Seconds (24.1-36.2)
[2025-05-21 11:03] LABS: Troponin T High Sensitivity 34 ng/L (<=14)
[2025-05-21 11:06] LABS: AST(SGOT) 32 U/L (<=31); Alanine Aminotransfer ALT/SGPT 31 U/L (<=34); Albumin, Serum 3.5 g/dL (3.5-5.0); Alkaline Phosphatase 85 U/L (35-104); Anion Gap 12 (5-15); BUN 7 mg/dL (4-19); BUN/Creat Ratio 9.1 RATIO (10-20); Calcium,Total 8.7 mg/dL (7.6-11.0); Carbon Dioxide 18.5 mmol/L (21.0-32.0); Chloride 109 mmol/L (98-108); Estimated Creatinine Clearance 89.33 ml/min (50-250); Globulin 2.7 g/dL (2.2-4.2); Glucose 110 mg/dL (70-99); Potassium 4.3 mmol/L (3.3-5.1)
[2025-05-21 11:25] LABS: Mucous, Urine 0 SEEN /hpf (<or=2+); Red Blood Cells-Urine 0 SEEN /hpf (0-5)
[2025-05-21 11:28] LABS: Color, Urine Yellow (Yellow); Glucose, Dipstick Normal (Normal); Ketone-Dipstick Negative (Negative); Leukocyte Esterase-Dipstick 25 /ul (Negative); Nitrite-Dipstick Negative (Negative); Occult Blood-Urine Negative /ul (Negative); Protein-Dipstick 15 mg/dl (Negative); Specific Gravity, Urine 1.010 (1.002-1.030); Urine Bilirubin Dipstick Negative (Negative)
[2025-05-21 11:40] LABS: Squamous Epithelial Cells - UA 0-5 SEEN /hpf (5-10)
--- NOTE | 2025-05-21 11:45 | CT_ITS ---
PROCEDURE: SPINE CERVICAL WITHOUT CONTRAS 05/21/2025 REASON FOR EXAM: FALL TECHNIQUE: Procedure Code: CTSPC Modality: CT Procedure: SPINE CERVICAL WITHOUT CONTRAS Coronal and Sagittal reconstruction series were provided. One or more dose reduction techniques were used (e.g., Automated exposure control, adjustment of the mA and/or kV according to patient size, use of iterative reconstruction technique. RADIATION DOSE SUMMARY: DLP: 1377 mGycm COMPARISON: May 07, 2025 FINDINGS: There is loss of the lordosis. There is grade 1 spondylolisthesis at C3-4, 0.3 cm. There is loss of disc height from C4-T1. Visualized skull base and craniocervical junction demonstrate no evidence of fracture. There is no evidence of cervical spine fracture. No soft tissue abnormality is seen. Facets are aligned. Visualized portions of the lung apices demonstrate no evidence of pneumothorax. A right-sided cardiac device is noted with wires. C2-C3: There is no significant disc protrusion. There is no lateral recess or foraminal stenosis. There is no central canal stenosis. C3-C4: There is no significant disc protrusion. There is no lateral recess or foraminal stenosis. There is no central canal stenosis. C4-C5: There is no significant disc protrusion. There is no lateral recess or foraminal stenosis. There is no central canal stenosis. C5-C6: There is moderate central and right and left paracentral disc and osteophyte protrusion. There is moderate bilateral lateral recess stenosis. There is moderate bilateral foraminal narrowing secondary to bony hypertrophy. There is no central canal stenosis. C6-C7: There is no significant disc protrusion. There is no lateral recess or foraminal stenosis. There is no central canal stenosis. C7-T1: There is no significant disc protrusion. There is no lateral recess or foraminal stenosis. There is no central canal stenosis. CT/Spine Cervical without Contras IMPRESSION: There is loss of the lordosis. There is grade 1 spondylolisthesis at C3-4, 0.3 cm. There is loss of disc height from C4-T1. There is no visible acute traumatic injury. Reading Location: [facility]
--- NOTE | 2025-05-21 11:45 | CT_ITS ---
PROCEDURE: BRAIN/HEAD WITHOUT CONTRAST 05/21/2025 REASON FOR EXAM: AMS, FALL WEDNESDAY, R FOREHEAD HEMATOMA TECHNIQUE: Procedure Code: CTBR Modality: CT Procedure: BRAIN/HEAD WITHOUT CONTRAST Coronal and Sagittal reconstruction series were provided. One or more dose reduction techniques were used (e.g., Automated exposure control, adjustment of the mA and/or kV according to patient size, use of iterative reconstruction technique. RADIATION DOSE SUMMARY: CTDlvol: 44.99 mGy DLP: 829.85 mGycm COMPARISON: May 12, 2025. FINDINGS: Brain: Low density in the periventricular white matter suggests mild chronic small vessel ischemic changes. Stable encephalomalacia in the insular cortex of the left temporal lobe. CSF Spaces: Mild generalized cerebral atrophy Sinuses/Mastoids: Clear at visualized levels Bones: Small scalp hematoma overlying the right frontal bone. CT/Brain/Head without Contrast IMPRESSION: CHRONIC CHANGES. NO ACUTE FINDINGS. Small scalp hematoma overlying the right frontal bone. Reading Location: [facility]-
[2025-05-21 12:53] LABS: Troponin T High Sens 2 HR 31 ng/L (<=14)
--- NOTE | 2025-05-21 13:15 | CM.ED ---
Addendum entered by Melissa Bonds 05/21/25 16:41: Social work Due to patient being transferred to a higher level of care and Anival RN communicating with Debbie (patient's sister/KATERINA) about this need, this SW did not call Debbie back as stated below. RHIANNA Mobley, [employer] Original Note: Social work SW knows patient and patient's sister, Debbie, from previous presentations to [facility] ED. Patient was asleep and Debbie was not present, so JAYA called Debbie (ph: ) to verify there were no changes from patient's last admission to [facility] on 05/12/25. Debbie verified there no changes and stated patient just arrived home from [facility] on Wednesday05/18/25 (patient was at [facility] from Wednesday05/13/25 until Wednesday05/18/25). Debbie stated patient appeared tired all weekend, but was "fine" otherwise until this morning. Debbie stated that Debbie did not like [facility] due the way the nurses treated Debbie; Debbie stated [facility]'s doctors were "great." Debbie asked for JAYA to call back and inform Debbie of the plan for patient when it was known. RHIANNA Mobley, [employer]
[2025-05-21] MEDS: Cefepime HCl 1 GM in 0.9% Normal Saline (50mL MB+) 50 ML IV (13:22)
[2025-05-21] MEDS: Vancomycin HCl 1,500 MG in 0.9% Normal Saline (500mL Bag) 500 ML 250 MG IV (14:18)
[2025-05-21 14:53] LABS: Pro- Brain NATRIURETIC PEPTIDE 1139 pg/mL (<=900)
[2025-05-21 14:56] LABS: Troponin T High Sens 4 HR 27 ng/L (<=14)
--- NOTE | 2025-05-21 14:57 | ED.RN ---
Debbie stuart poa, was notified that it was NOT a brain bleed. And was asked where she wanted her sister transferred, [facility], [facility] , stated [place] is her last choice. And she and her sister will see her on . Dr webster notified./
== END 2025-05-21 17:09 | disposition other institution (70) ==
PROVIDERS: Emergency Provider Emergency Medicine; PCP Internal Medicine; Visit Provider Emergency Medicine
DX: G93.41 Metabolic encephalopathy (principal); N18.6 End stage renal disease; J96.21 Acute and chronic respiratory failure with hypoxia; I50.9 Heart failure, unspecified; J44.9 Chronic obstructive pulmonary disease, unspecified; I48.19 Other persistent atrial fibrillation; I49.5 Sick sinus syndrome; G40.909 Epilepsy, unspecified, not intractable, without status epilepticus; E11.22 Type 2 diabetes mellitus with diabetic chronic kidney disease; E11.42 Type 2 diabetes mellitus with diabetic polyneuropathy; Z79.4 Long term (current) use of insulin; S00.03XA Contusion of scalp, initial encounter; W19.XXXA Unspecified fall, initial encounter; Z99.81 Dependence on supplemental oxygen; D72.829 Elevated white blood cell count, unspecified; I25.2 Old myocardial infarction; I45.10 Unspecified right bundle-branch block; G35.D Multiple sclerosis, unspecified; F41.9 Anxiety disorder, unspecified; F32.A Depression, unspecified; K21.9 Gastro-esophageal reflux disease without esophagitis; E78.00 Pure hypercholesterolemia, unspecified; M43.12 Spondylolisthesis, cervical region; G43.709 Chronic migraine without aura, not intractable, without status migrainosus; Z95.0 Presence of cardiac pacemaker; Z99.2 Dependence on renal dialysis; Z79.85 Long-term (current) use of injectable non-insulin antidiabetic drugs; Z86.73 Personal history of transient ischemic attack (TIA), and cerebral infarction without residual deficits; Z86.74 Personal history of sudden cardiac arrest; Z79.51 Long term (current) use of inhaled steroids; Z79.82 Long term (current) use of aspirin; Z79.899 Other long term (current) drug therapy
CPT/HCPCS: 36600; 70450; 71046; 72125; 80053; 81001; 82803; 83605; 83880; 84484; 85025; 85610; 85730; 87040; 87070; 87077; 87086; 87186; 87205; 93005; 94640; 96361; 96365; 96366; 96367; 96375; 99285; A4216

== ENCOUNTER → 2025-06-21 | Outpatient (CLI) | payer MEDICARE, MEDICAID, SELFPAY ==
[2025-06-21 15:26] LABS: Hematocrit 38.1 % (37-47); Hemoglobin 12.1 g/dL (12.0-15.0); Mean Corp Hgb Conc 31.8 g/dL (32-36); Mean Corpuscular Volume 97.4 fL (81-99); Mean Platelet Vol. 10.8 fl (6.2-12.0); Platelet Count 246 K/mm3 (150-450); RBC Distribution Width CV 14.1 % (11.6-14.6); RBC Distribution Width SD 50.0 fl (35.1-43.9); Red Blood Count 3.91 M/mm3 (4.2-5.4); White Blood Count 13.3 K/mm3 (4.4-11.0)
[2025-06-21 15:35] LABS: Carbamazepine (Tegretol) 6.5 ug/mL (4.0-12.0)
[2025-06-21 15:38] LABS: AST(SGOT) 23 U/L (<=31); Alanine Aminotransfer ALT/SGPT 24 U/L (<=34); Albumin, Serum 4.5 g/dL (3.5-5.0); Alkaline Phosphatase 128 U/L (35-104); Anion Gap 14 (5-15); BUN 17 mg/dL (4-19); BUN/Creat Ratio 20.4 RATIO (10-20); Calcium,Total 9.3 mg/dL (7.6-11.0); Carbon Dioxide 21.5 mmol/L (21.0-32.0); Chloride 106 mmol/L (98-108); Globulin 3.3 g/dL (2.2-4.2); Glucose 97 mg/dL (70-99); Magnesium 2.1 mg/dL (1.5-2.2); Potassium 3.8 mmol/L (3.3-5.1)
[2025-06-21 15:58] LABS: Ammonia 39.5 umol/L (11-51)
[2025-06-26 16:09] LABS: ACHR Recep AB, Blocking 16 % (0-25); Folate, Hemolysate Test 310.0 ng/mL (Not Estab.); Folate, RBC (Hct) Test 38.1 % (34.0-46.6); Folates, RBC Test 814 ng/mL (>498)
== END | disposition home or self-care (01) ==
LOC: MTLAB 11:32
PROVIDERS: PCP Internal Medicine; Referring Provider Psychiatry & Neurology Neurology; Visit Provider Psychiatry & Neurology Neurology
DX: H02.409 Unspecified ptosis of unspecified eyelid (principal); G40.909 Epilepsy, unspecified, not intractable, without status epilepticus; R41.82 Altered mental status, unspecified
CPT/HCPCS: 36415; 80053; 80156; 80201; 82140; 82747; 83519; 83735; 85014; 85027